=== PATIENT | female | born 1960 | race Caucasian/White ===

== ENCOUNTER → 2016-11-04 | Outpatient (CLI) | payer BC ==
[~2016-11-04] MED LIST: ACET-1256 PO; ALEN35TA2 PO; AMT100 PO; APDI SQ; ASCA500 PO; AZEL0.056 NAE; BIOTCAP2 PO; CALC750T PO; CARV6.252 PO; CEFD300C3 PO; CETI10TA84 PO; COLE1TAB5 PO; CRG625 PO; CYCL1CAP22 PO; DFC200 PO; EFF/375 PO; EPGI40M INJ; FAMO20TA11 PO; FIDA1TAB PO; FOLI800T PO; FRCT/ PO; GEMF600T3 PO; INSDGI SC; INSU3INJ3 SC; INSU3INJ3 SQ; KRIL1000 PO; KRIL1CAP7 PO; LVMIPEN SC; MAGN250T3 PO; MOME50SP5 NAE; MONT1TAB5 PO; MULT-506 PO; NRL25 PO; NRV/5 PO; ONDA4TAB9 PO; OXYC-609 PO; OXYC1TAB3 PO; POLY150C4 PO; PRAM0.129 PO; PRD/25 PO; PRM625 PO; PRT/40 PO; RHNAQIN NAE; SERT50TA PO; SIRO1TAB PO; TCMD2 PO; TRAM-10 PO; VANC1CAP3 PO; VANC5CAP PO; VENL75CA73 PO; WARF4TAB44 PO; ZINC1TAB PO; [UNRECOGNIZED DRUG - CODE] PO; [UNRECOGNIZED DRUG - CODE] PO
--- NOTE | 2016-11-04 15:27 | DIAGNOSTIC IMAGING REPORT ---
ULTRASOUND LEFT UPPER EXTREMITY VENOUS CLINICAL HISTORY: Left arm pain. COMPARISON STUDY: No priors. TECHNIQUE: Real-time, grayscale, and color Doppler sonography of the deep veins of the left upper extremity is performed. Compression and augmentation were utilized. FINDINGS: There is no sonographic evidence of deep venous thrombosis identified in the left upper extremity. The left internal jugular, axillary, and brachial veins are patent and normally compressible. Normal venous waveforms and augmentation are seen within the left subclavian vein. The cephalic and basilic veins are clear. The visualized radial and ulnar veins are patent. IMPRESSION: There is no sonographic evidence of deep venous thrombosis identified in the left upper extremity. Electronically signed by: Bradley Rivas M.D. 11/04/2016 3:26 PM Dictated Date/Time: 11/04/2016 3:25 PM
--- NOTE | 2016-11-04 15:35 | DIAGNOSTIC IMAGING REPORT ---
Ultrasound left arm EXTREMITY NONVASCULAR LIMITED CLINICAL HISTORY: LT ARM PAIN BICEP TENDON RUPTURE pain TECHNIQUE: Ultrasound COMPARISON STUDY: None FINDINGS: Normal study. Within limitations, major tendinous structures are intact. No abnormal and asymmetric musculature IMPRESSION: Negative study Electronically signed by: Jonas Deluca M.D. 11/04/2016 3:33 PM Dictated Date/Time: 11/04/2016 3:32 PM
== END | disposition home or self-care (01) ==
LOC: C.ULTR 14:18
PROVIDERS: ATTEND Student in an Organized Health Care Education/Training Program
DX: M79.602 Pain in left arm (principal)

== ENCOUNTER 2016-11-19 14:56 | Emergency (ER) | payer BC ==
[~2016-11-19] VITALS: Ht 172.7 cm; Wt 67.4 kg
[~2016-11-19 14:56] MED LIST changes: -AMT100 PO; -CEFD300C3 PO; -CRG625 PO; -CYCL1CAP22 PO; -DFC200 PO; -EFF/375 PO; -EPGI40M INJ; -FIDA1TAB PO; -FRCT/ PO; -GEMF600T3 PO; -INSU3INJ3 SC; -INSU3INJ3 SQ; -KRIL1CAP7 PO; -LVMIPEN SC; -NRL25 PO; -NRV/5 PO; -ONDA4TAB9 PO; -OXYC-609 PO; -PRT/40 PO; -RHNAQIN NAE; -TCMD2 PO; -TRAM-10 PO; -VANC5CAP PO; -VENL75CA73 PO; -WARF4TAB44 PO
[2016-11-19 15:03] VITALS: TEMP 37.5; Ht 172.7 cm; Wt 67.4 kg
[2016-11-19] MEDS ORDERED: SODIUM CHLORIDE 0.9% 1000ML 1,000 ML IV STA (15:30)
[2016-11-19 15:53] LABS: BASO % 0.3 %; BASO ABS # 0.02 K/uL (0-0.2); COMPLETE YES; HEMATOCRIT 31.3 % (37-47); IG% 0.3 %; LYMPH % 11.9 %; LYMPH ABS # 0.84 K/uL (1.2-3.4); MEAN CELL VOLUME 84.8 fL (80-100); MEAN CORPUSCULAR HEMOGLOBIN 27.9 pg (25-34); MEAN CORPUSCULAR HGB CONC 32.9 g/dl (32-36); MEAN PLATELET VOLUME 10.4 fL (7.4-10.4); MONO % 8.9 %; NEUT % 76.6 %; PLATELET COUNT 224 K/uL (130-400); RED BLOOD COUNT 3.69 M/uL (4.2-5.4); WHITE BLOOD COUNT 7.05 K/uL (4.8-10.8)
[2016-11-19] MEDS ORDERED: VENL75CA73 PO (16:04)
[2016-11-19] MEDS ORDERED: INSU3INJ3 SQ (16:04)
[2016-11-19] MEDS ORDERED: RHNAQIN NAE (16:04)
[2016-11-19] MEDS ORDERED: TRAM-10 PO (16:04)
[2016-11-19] MEDS ORDERED: AMT100 PO (16:25)
[2016-11-19 16:35] LABS: POTASSIUM 4.9 mmol/L (3.5-5.1)
[2016-11-19 16:37] LABS: URINE APPEARANCE CLEAR (CLEAR); URINE BILIRUBIN NEG (NEG); URINE COLOR YELLOW; URINE EPITHELIAL CELL AUTO >30 /lpf (0-5); URINE NITRITE NEG (NEG); URINE SPECIFIC GRAVITY 1.007 (1.000-1.030); UROBILINOGEN NEG (NEG); ZZUR CULT IF INDIC CLEAN CATCH NO
[2016-11-19 16:37] LABS: MAGNESIUM 1.8 mg/dl (1.8-2.4)
[2016-11-19 16:40] LABS: BUN/CREATININE RATIO 25.6 (10-20); CALCIUM 9.4 mg/dl (8.5-10.1); CREATININE 3.4 mg/dl (0.60-1.20); THYROID STIMULATING HORMONE 1.17 uIu/ml (0.300-4.500)
[2016-11-19 16:45] LABS: MANUAL MICROSCOPIC REQUIRED? NO; REVIEW REQ? NO
--- NOTE | 2016-11-19 16:49 | DIAGNOSTIC IMAGING REPORT ---
ULTRASOUND VENOUS DOPPLER ULTRASOUND LEFT UPPER EXTREMITY CLINICAL HISTORY: Left arm swelling COMPARISON STUDY: No previous studies for comparison. FINDINGS: No intraluminal thrombus was visualized. The internal jugular, subclavian, axillary, cephalic, brachial, basilic, radial, and ulnar veins were patent. IMPRESSION: No evidence of left upper extremity DVT Electronically signed by: John Narayanan M.D. 11/19/2016 4:47 PM Dictated Date/Time: 11/19/2016 4:47 PM
--- NOTE | 2016-11-19 17:20 | EMERGENCY ROOM VISIT NOTE ---
History Report prepared by Mason: Trevor Castaneda Under the Supervision of: Dr. Mike Schrader D.O. First contact with patient: 15:18 Chief Complaint: OTHER COMPLAINT Stated Complaint: DECREASED KIDNEY FUNCTION History of Present Illness The patient is a 56 year old female who presents to the Emergency Room with complaints of increased weakness and tiredness starting a few weeks ago. She started having left arm swelling and pain a few weeks ago. She was diagnosed with shingles and was placed on an antiviral and Tramadol without relief. She had blood work a few days ago which showed creatinine of 3.3. Her normal kidney function is at 18%. She has a history of kidney transplant. She reports normal appetite and a normal fluid intake. The patient denies any chest pain, shortness of breath, abdominal pain, urinary symptoms, or any other complaints. Source of History: patient Onset: a few days ago Position: other (global) Quality: other (weakness and tiredness) Timing: other (increased) Associated Symptoms: No SOB, No abdominal pain, No chest pain, No urinary symptoms Review of Systems See HPI for pertinent positives & negatives. A total of 10 systems reviewed and were otherwise negative. Past Medical & Surgical Medical Problems: (1) Abdominal pain (2) Abdominal pain (3) Asthma, Unspecified (4) Chronic Kidney Disease, Stage Iv (Severe) (5) Diab Raeann Wo Compl, Type Ii Or Unspec Type, Uncontrolled (6) HTN (hypertension) (7) Hyperlipidemia Nec/Nos (8) Polycystic Kidney, Unspecified Type (9) SBO (small bowel obstruction) (10) SIRS (systemic inflammatory response syndrome) Surgical Problems: (1) Kidney Transplant Status Family History Kidney disease Kidney stones Social History Smoking Status: Never Smoker Alcohol Use: none Drug Use: none Marital Status: Housing Status: lives with family Occupation Status: employed Current/Historical Medications Scheduled Amitriptyline HCl (Amitriptyline HCl), 100 MG PO HS Azelastine HCl (Azelastine HCl), 1 SPRAYS АНДРЕЙ DAILY Biotin (Biotin 5000), 5,000 MCG PO AMPM Budesonide (Rhinocort Aqua), 1 SPRAY АНДРЕЙ DAILY Calcium W/ Vitamins D & K (Calcium + D + K), 1 TABLET PO MWF Carvedilol (Coreg), 6.25 MG PO QAM Carvedilol (Coreg), 15.625 MG PO QPM Cetirizine (Zyrtec), 10 MG PO DAILY Cyclosporine (Sandimmune), 75 MG PO BID Estrogens, Conjugated (Premarin), 0.625 MG PO UD Insulin Detemir (Levemir Flextouch), 26 UNITS SQ DAILY Insulin Glulisine (Apidra Solostar), 3 UNITS SQ UD Magnesium (Magnesium 250 mg), 250 MG PO TID Montelukast Sodium (Montelukast Sodium), 10 MG PO HS Multivitamin (Multivitamin), 1 TAB PO QAM Polysaccharide Iron Complex (Ferrex 150), 150 MG PO QPM Pramipexole (Mirapex), 0.125 MG PO HS Prednisone (Prednisone), 2.5 MG PO QAM Sirolimus (Rapamune), 1 MG PO QAM Venlafaxine Hcl (Venlafaxine Extended Rel), 75 MG PO DAILY Scheduled PRN Tramadol (Ultram), 50 MG PO Q12 PRN for Pain Allergies Coded Allergies: Iodinated Diagnostic Agents (Verified Allergy, Severe, Hx Kidney Transplant, 11/19/16) Statins (Verified Allergy, Severe, "PANCREATITIS", 11/19/16) Hydrochlorothiazide (Verified Allergy, Mild, 11/19/16) Sulfa Antibiotics (Verified Allergy, Mild, ., 11/19/16) Sumatriptan (Verified Allergy, Mild, 11/19/16) Triamterene (Verified Allergy, Mild, 11/19/16) Atorvastatin (Verified Allergy, Unknown, ?, 11/19/16) Doxycycline (Verified Allergy, Unknown, UNKNOWN, 11/19/16) Levofloxacin (Verified Allergy, Unknown, joint pain, 11/19/16) Adhesives (Verified Adverse Reaction, Unknown, SKIN TEAR, 11/19/16) Ciprofloxacin (Verified Adverse Reaction, Unknown, FATIGUE, 11/19/16) Morphine (Verified Adverse Reaction, Unknown, INEFFECTIVE, 11/19/16) Physical Exam Vital Signs Date Time Temp Pulse Resp B/P Pulse Ox O2 Delivery O2 Flow Rate FiO2 11/19/16 17:10 61 11/19/16 16:53 63 18 181/74 95 11/19/16 15:03 37.5 70 18 167/95 92 Room Air Physical Exam CONSTITUTIONAL/VITAL SIGNS: Reviewed / noted above. GENERAL: Non-toxic in appearance. INTEGUMENTARY: Warm, dry, and [place]. HEAD: Normocephalic. EYES: without scleral icterus or trauma. ENT/OROPHARYNX: clear and moist. LYMPHADENOPATHY/NECK: Is supple without lymphadenopathy or meningismus. RESPIRATORY: Lungs clear and equal. CARDIOVASCULAR: Regular rate and rhythm. GI/ABDOMEN: Soft. No organomegaly or pulsatile mass. No rebound or guarding. Normal bowel sounds. No tenderness over left lower abdominal region/ transplanted kidney area. EXTREMITIES: Warm and well perfused. Mild left triceps area swelling/increased girth. BACK: No CVA tenderness. NEUROLOGICAL: Intact without focal deficits. PSYCHIATRIC: normal affect. MUSCULOSKELETAL: Normally developed with good muscle tone. Medical Decision & Procedures ER Provider Diagnostic Interpretation: US results as stated below per my review and radiologist interpretation: ULTRASOUND VENOUS DOPPLER ULTRASOUND LEFT UPPER EXTREMITY CLINICAL HISTORY: Left arm swelling COMPARISON STUDY: No previous studies for comparison. FINDINGS: No intraluminal thrombus was visualized. The internal jugular, subclavian, axillary, cephalic, brachial, basilic, radial, and ulnar veins were patent. IMPRESSION: No evidence of left upper extremity DVT Electronically signed by: John Narayanan M.D. 11/19/2016 4:47 PM Dictated Date/Time: 11/19/2016 4:47 PM Laboratory Results 11/19/16 15:45 Red Blood Count 3.69, Mean Corpuscular Volume 84.8, Mean Corpuscular Hemoglobin 27.9, Mean Corpuscular Hemoglobin Concent 32.9, Mean Platelet Volume 10.4, Neutrophils (%) (Auto) 76.6, Lymphocytes (%) (Auto) 11.9, Monocytes (%) (Auto) 8.9, Eosinophils (%) (Auto) 2.0, Basophils (%) (Auto) 0.3, Neutrophils # (Auto) 5.40, Lymphocytes # (Auto) 0.84, Monocytes # (Auto) 0.63, Eosinophils # (Auto) 0.14, Basophils # (Auto) 0.02 11/19/16 15:45 Test 11/19/16 15:45 11/19/16 16:15 White Blood Count 7.05 K/uL (4.8-10.8) Red Blood Count 3.69 M/uL (4.2-5.4) Hemoglobin 10.3 g/dL (12.0-16.0) Hematocrit 31.3 % (37-47) Mean Corpuscular Volume 84.8 fL (80-100) Mean Corpuscular Hemoglobin 27.9 pg (25-34) Mean Corpuscular Hemoglobin Concent 32.9 g/dl (32-36) Platelet Count 224 K/uL (130-400) Mean Platelet Volume 10.4 fL (7.4-10.4) Neutrophils (%) (Auto) 76.6 % Lymphocytes (%) (Auto) 11.9 % Monocytes (%) (Auto) 8.9 % Eosinophils (%) (Auto) 2.0 % Basophils (%) (Auto) 0.3 % Neutrophils # (Auto) 5.40 K/uL (1.4-6.5) Lymphocytes # (Auto) 0.84 K/uL (1.2-3.4) Monocytes # (Auto) 0.63 K/uL (0.11-0.59) Eosinophils # (Auto) 0.14 K/uL (0-0.5) Basophils # (Auto) 0.02 K/uL (0-0.2) RDW Standard Deviation 47.7 fL (36.4-46.3) RDW Coefficient of Variation 15.5 % (11.5-14.5) Immature Granulocyte % (Auto) 0.3 % Immature Granulocyte # (Auto) 0.02 K/uL (0.00-0.02) Anion Gap 13.0 mmol/L (3-11) Est Creatinine Clear Calc Drug Dose 18.4 ml/min Estimated GFR () 16.5 Estimated GFR (Non- 14.2 BUN/Creatinine Ratio 25.6 (10-20) Calcium Level 9.4 mg/dl (8.5-10.1) Magnesium Level 1.8 mg/dl (1.8-2.4) Thyroid Stimulating Hormone (TSH) 1.170 uIu/ml (0.300-4.500) Urine Color YELLOW Urine Appearance CLEAR (CLEAR) Urine pH 5.0 (4.5-7.5) Urine Specific [place] 1.007 (1.000-1.030) Urine Protein 1+ (NEG) Urine Glucose (UA) NEG (NEG) Urine Ketones NEG (NEG) Urine Occult Blood TRACE (NEG) Urine Nitrite NEG (NEG) Urine Bilirubin NEG (NEG) Urine Urobilinogen NEG (NEG) Urine Leukocyte Esterase NEG (NEG) Urine WBC (Auto) 1-5 /hpf (0-5) Urine RBC (Auto) 0-4 /hpf (0-4) Urine Hyaline Casts (Auto) 0 /lpf (0-5) Urine Epithelial Cells (Auto) >30 /lpf (0-5) Urine Bacteria (Auto) NEG (NEG) Laboratory results as stated above per my review. Medications Administered Medications (Trade) Dose Ordered Sig/Dominique Route Start Time Stop Time Status Last Admin Dose Admin Sodium Chloride (Nss 1000ml) 1,000 ml @ 999 mls/hr Q1H1M STAT IV 11/19/16 15:30 11/19/16 16:30 DC 11/19/16 15:57 999 MLS/HR ED Course 1518: Previous medical records were reviewed. The patient was evaluated in room B10. A complete history and physical examination was performed. 1530: Sodium Chloride 1000 ml @ 999 mls/hr IV 1718: I discussed the patient's case with Dr. Painting, buttermaker with [facility]. 1722: On reevaluation, the patient is resting comfortably. I discussed the results and findings with the patient. She verbalized agreement of the treatment plan. She was discharged home. Medical Decision Differential includes acute coronary syndrome, myocardial infarction, CVA, TIA, anemia, infection, pneumonia, UTI, pyelonephritis, poor nutrition, dehydration, electrolyte disturbance,hypoglycemia. Is a 56-year-old female who presents to the ED with chief complaint of feeling exhausted and wanting to sleep all the time. The patient states that she has been seen by her PCP. She has been having some left arm swelling as well. Her symptoms overall have been going on for about 4 weeks. She is already taking a course of Valtrex. This did not help her arm pain. She is also recently been prescribed Effexor and tramadol yesterday. She was felt to have shingles of the left arm. The patient had some recent blood work that showed her BUN of 79 and a creatinine of 3.3. This was 4 days ago. The patient presents with continued symptoms. Primary symptoms again are exhaustion and tiredness and wanting to sleep. She does have history of a renal transplant. She denies having any abdominal pains or fevers or recent illness. CBC is unremarkable. Left upper extremity ultrasound did not show DVT. Creatinine is 3.4. Based on blood work from 09/14/16, her creatinine at that time was 3.3. BUN is 87. TSH is normal. Urine did not show infection. The patient was treated with normal saline 1 L IV. She does state that she produces urine. She is not on dialysis. I spoke with Dr. Painting about the patient, per the request of the patient. He advised that the patient drink plenty of fluids and follow-up with Dr. Kirkland later in the week. The patient is felt to be stable for discharge. She was treated with normal saline 1 L IV here. Consults Time Called: 1715 Consulting Physician: Dr. Painting, buttermaker with [facility] Returned Call: [phone] I discussed the patient's case with Dr. Painting, buttermaker with [facility]. Impression Primary Impression: Dehydration Additional Impression: Malaise and fatigue Scribe Attestation The scribe's documentation has been prepared under my direction and personally reviewed by me in its entirety. I confirm that the note above accurately reflects all work, treatment, procedures, and medical decision making performed by me. Departure Information Dispostion Home / Self-Care Referrals Shruthi Mcbride D.O. (PCP) Patient Instructions My [facility] Additional Instructions Drink plenty of fluids. Follow-up with your doctors and buttermaker this week for recheck. Return for worsening or new concerns. Problem Qualifiers
[2016-11-19 18:04] VITALS: BP 178/88; PULSE 71; O2SAT 95
[2017-02-18] MEDS ORDERED: PRT/40 PO (13:12)
[2017-02-23] MEDS ORDERED: LVMIPEN SC (09:38)
[2017-02-23] MEDS ORDERED: DFC200 PO (09:38)
[2017-02-23] MEDS ORDERED: TCMD2 PO (09:39)
[2017-06-26] MEDS ORDERED: CEFD300C3 PO (11:03)
[2017-06-26] MEDS ORDERED: DFC200 PO (11:03)
[2017-06-26] MEDS ORDERED: FRCT/ PO (11:08)
== END 2016-11-19 18:17 | disposition home or self-care (01) ==
LOC: C.EDB 14:57
DX: E86.0 Dehydration (principal); R53.81 Other malaise; Z94.0 Kidney transplant status; J45.909 Unspecified asthma, uncomplicated; N18.4 Chronic kidney disease, stage 4 (severe); E11.22 Type 2 diabetes mellitus with diabetic chronic kidney disease; E78.5 Hyperlipidemia, unspecified; Z79.899 Other long term (current) drug therapy; B02.9 Zoster without complications; I12.9 Hypertensive chronic kidney disease with stage 1 through stage 4 chronic kidney disease, or unspecified chronic kidney disease

== ENCOUNTER → 2016-11-23 | Outpatient (CLI) | payer BC ==
[~2016-11-23] MED LIST changes: -ACET-1256 PO; -ALEN35TA2 PO; +AMT100 PO; -ASCA500 PO; +CEFD300C3 PO; -COLE1TAB5 PO; +CRG625 PO; +CYCL1CAP22 PO; +DFC200 PO; +EFF/375 PO; +EPGI40M INJ; -FAMO20TA11 PO; +FIDA1TAB PO; -FOLI800T PO; +FRCT/ PO; +GEMF600T3 PO; -INSDGI SC; +INSU3INJ3 SC; +INSU3INJ3 SQ; -KRIL1000 PO; +KRIL1CAP7 PO; +LVMIPEN SC; -MOME50SP5 NAE; +NRL25 PO; +NRV/5 PO; +ONDA4TAB9 PO; +OXYC-609 PO; -OXYC1TAB3 PO; +PRT/40 PO; +RHNAQIN NAE; -SERT50TA PO; +TCMD2 PO; +TRAM-10 PO; -VANC1CAP3 PO; +VANC5CAP PO; +VENL75CA73 PO; +WARF4TAB44 PO; -ZINC1TAB PO; -[UNRECOGNIZED DRUG - CODE] PO
--- NOTE | 2016-11-23 17:07 | DIAGNOSTIC IMAGING REPORT ---
LEFT ELBOW MIN 3 VIEWS ROUTINE CLINICAL HISTORY: Worsening left elbow pain. Chronic kidney disease. COMPARISON: None FINDINGS: Alignment of the left elbow is anatomic. No acute fracture or joint effusion is present. No bony erosion lesions are evident. No suspicious osseous lesions are present. Minimal osteophytosis is present. There is no significant joint space narrowing. IMPRESSION: 1. No acute fracture or joint effusion of the left elbow. 2. Minimal arthritis of the left elbow. Electronically signed by: Benito Hunt M.D. 11/23/2016 5:06 PM Dictated Date/Time: 11/23/2016 4:59 PM
[2016-11-23 18:29] LABS: BLOOD UREA NITROGEN 66 mg/dl (7-18); BUN/CREATININE RATIO 19.5 (10-20); CALCIUM 8.7 mg/dl (8.5-10.1); CARBON DIOXIDE 24 mmol/L (21-32); CHLORIDE 103 mmol/L (98-107); GLUCOSE 217 mg/dl (70-99); POTASSIUM 4.3 mmol/L (3.5-5.1); SODIUM 137 mmol/L (136-145)
[2016-11-23 18:35] LABS: FERRITIN 180.4 ng/ml (8.0-388.0); PHOSPHORUS 2.8 mg/dl (2.5-4.9); TOTAL IRON BINDING CAPACITY 214 mcg/dl (250-450)
== END | disposition home or self-care (01) ==
LOC: C.LAB1850 16:36
PROVIDERS: ATTEND Nurse Practitioner Family
DX: M25.522 Pain in left elbow (principal); N18.9 Chronic kidney disease, unspecified; Z94.0 Kidney transplant status; N28.9 Disorder of kidney and ureter, unspecified; Q61.3 Polycystic kidney, unspecified

== ENCOUNTER → 2016-12-23 | Outpatient (CLI) | payer BC ==
[~2016-12-23] MED LIST changes: +PANT40TA2 PO; -PRT/40 PO
[2016-12-23 13:09] LABS: BASO % 0.2 %; BASO ABS # 0.02 K/uL (0-0.2); COMPLETE YES; HEMATOCRIT 33.3 % (37-47); IG% 0.5 %; LYMPH % 13.1 %; MEAN CELL VOLUME 84.7 fL (80-100); MEAN CORPUSCULAR HEMOGLOBIN 27.7 pg (25-34); MEAN CORPUSCULAR HGB CONC 32.7 g/dl (32-36); MEAN PLATELET VOLUME 10.5 fL (7.4-10.4); NEUT % 72.2 %; PLATELET COUNT 259 K/uL (130-400); RED BLOOD COUNT 3.93 M/uL (4.2-5.4); WHITE BLOOD COUNT 9.18 K/uL (4.8-10.8)
[2016-12-23 13:44] LABS: BLOOD UREA NITROGEN 102 mg/dl (7-18); BUN/CREATININE RATIO 27.6 (10-20); CARBON DIOXIDE 29 mmol/L (21-32); CHLORIDE 99 mmol/L (98-107); GLUCOSE 152 mg/dl (70-99); PHOSPHORUS 3.1 mg/dl (2.5-4.9); SODIUM 135 mmol/L (136-145)
== END | disposition home or self-care (01) ==
LOC: C.LAB1850 11:52
PROVIDERS: ATTEND Internal Medicine
DX: E11.9 Type 2 diabetes mellitus without complications (principal)

== ENCOUNTER → 2016-12-30 | Outpatient (CLI) | payer BC ==
[2016-12-30 16:54] LABS: HEMATOCRIT 33.3 % (37-47)
[2016-12-31 06:12] LABS: ESTIMATED AVERAGE GLUCOSE 140 mg/dl; HA1C FLAG Normal (Normal)
== END | disposition home or self-care (01) ==
LOC: C.LAB1850 16:26
PROVIDERS: ATTEND Physician Assistant
DX: E11.9 Type 2 diabetes mellitus without complications (principal); Z94.0 Kidney transplant status; N28.9 Disorder of kidney and ureter, unspecified; Q61.3 Polycystic kidney, unspecified; E78.5 Hyperlipidemia, unspecified

== ENCOUNTER → 2017-01-11 | Outpatient (CLI) | payer BC ==
--- NOTE | 2017-01-11 16:39 | MAMMOGRAPHY REPORT ---
BILATERAL DIGITAL SCREENING MAMMOGRAM WITH CAD: 01/11/2017 CLINICAL HISTORY: Patient presents for routine screening. S/P bilateral augmentation. TECHNIQUE: Current study was also evaluated with a Computer Aided Detection (CAD) system. Bilatera l CC and MLO views including implant displaced views were obtained. Note that the implant displaced views are limited as the implants could not be easily displaced. COMPARISON: Comparison is made to exams dated: 12/14/2015 mammogram, 12/12/2014 mammogram, 03/14/2013 mammogram, 01/21/2011 mammogram - [facility], and 07/03/2009. BREAST COMPOSITION: There are scattered areas of fibroglandular density in both breasts. FINDINGS: No suspicious masses, calcifications, or areas of architectural distortion are noted in e ither breast. There has been no significant interval change compared to prior exams. Bilateral pre- pectoral silicone implants are stable in appearance. IMPRESSION: ACR BI-RADS CATEGORY 2: BENIGN There is no mammographic evidence of malignancy. A 1 year screening mammogram is recommended. The p atient will receive written notification of the results. Approximately 10% of breast cancers are not detected with mammography. A negative mammographic repor t should not delay biopsy if a clinically suggestive mass is present. Serenity Del Toro M.D. ah/:01/11/2017 16:04:24 [employer] Middleware Developer: Drake GAMING(Earl)(M), [facility] letter sent: Normal 1/2 BI-RADS Code: ACR BI-RADS Category 2: Benign
== END | disposition home or self-care (01) ==
LOC: C.MAMM 14:59
PROVIDERS: ATTEND Family Medicine
DX: Z12.31 Encounter for screening mammogram for malignant neoplasm of breast (principal); Z98.82 Breast implant status

== ENCOUNTER → 2017-01-13 | Outpatient (CLI) | payer BC ==
[2017-01-13 12:10] LABS: BASO % 0.4 %; BASO ABS # 0.03 K/uL (0-0.2); COMPLETE YES; EOS % 2.8 %; HEMATOCRIT 36.7 % (37-47); IG% 0.4 %; LYMPH ABS # 1.41 K/uL (1.2-3.4); MEAN CELL VOLUME 88.4 fL (80-100); MEAN CORPUSCULAR HGB CONC 31.6 g/dl (32-36); MONO % 15.2 %; NEUT % 62.2 %; PLATELET COUNT 276 K/uL (130-400); RED BLOOD COUNT 4.15 M/uL (4.2-5.4); WHITE BLOOD COUNT 7.42 K/uL (4.8-10.8)
[2017-01-13 12:29] LABS: ALT/SGPT 16 U/L (12-78); AMYLASE 100 U/L (25-115); BLOOD UREA NITROGEN 79 mg/dl (7-18); BUN/CREATININE RATIO 23.3 (10-20); CARBON DIOXIDE 27 mmol/L (21-32); CHLORIDE 100 mmol/L (98-107); GLUCOSE 65 mg/dl (70-99); MAGNESIUM 1.9 mg/dl (1.8-2.4); POTASSIUM 4.2 mmol/L (3.5-5.1); SODIUM 137 mmol/L (136-145)
[2017-01-13 12:33] LABS: ALB/GLOB RATIO 0.8 (0.9-2); ALKALINE PHOSPHATASE 89 U/L (45-117); AST/SGOT 12 U/L (15-37); PHOSPHORUS 3.4 mg/dl (2.5-4.9)
[2017-01-13 12:39] LABS: CALCIUM 9.9 mg/dl (8.5-10.1)
[2017-01-13 12:42] LABS: URINE PROTIEN/CREAT RATIO 0.8 (0-0.2); URINE TOTAL PROTEIN 72.4 mg/dl (0-11.9)
[2017-01-13 12:50] LABS: URINE APPEARANCE CLEAR (CLEAR); URINE BILIRUBIN NEG (NEG); URINE COLOR YELLOW; URINE EPITHELIAL CELL AUTO >30 /lpf (0-5); URINE NITRITE NEG (NEG); URINE PH 6.5 (4.5-7.5); URINE SPECIFIC GRAVITY 1.014 (1.000-1.030); UROBILINOGEN NEG (NEG); ZZUR CULT IF INDIC CLEAN CATCH NO
[2017-01-13 12:59] LABS: MANUAL MICROSCOPIC REQUIRED? NO; REVIEW REQ? NO
== END | disposition home or self-care (01) ==
LOC: C.LABBFT 10:19
PROVIDERS: ATTEND Transplant Surgery
DX: Z48.298 Encounter for aftercare following other organ transplant (principal); Z94.0 Kidney transplant status; Z79.899 Other long term (current) drug therapy; Z09 Encounter for follow-up examination after completed treatment for conditions other than malignant neoplasm; N28.9 Disorder of kidney and ureter, unspecified; Q61.3 Polycystic kidney, unspecified

== ENCOUNTER → 2017-01-30 | Outpatient (CLI) | payer BC ==
[2017-01-30 12:27] LABS: HEMATOCRIT 33.6 % (37-47); MEAN CELL VOLUME 91.1 fL (80-100); MEAN CORPUSCULAR HEMOGLOBIN 27.9 pg (25-34); MEAN CORPUSCULAR HGB CONC 30.7 g/dl (32-36); MEAN PLATELET VOLUME 10.5 fL (7.4-10.4); PLATELET COUNT 365 K/uL (130-400); RED BLOOD COUNT 3.69 M/uL (4.2-5.4); WHITE BLOOD COUNT 9.75 K/uL (4.8-10.8)
[2017-01-30 12:31] LABS: INR 1.6 (0.9-1.1); PROTHROMBIN TIME (PATIENT) 17.6 SECONDS (9.0-12.0)
[2017-01-30 14:03] LABS: BLOOD UREA NITROGEN 63 mg/dl (7-18); BUN/CREATININE RATIO 16.5 (10-20); CARBON DIOXIDE 23 mmol/L (21-32); CHLORIDE 100 mmol/L (98-107); GLUCOSE 100 mg/dl (70-99); MAGNESIUM 1.8 mg/dl (1.8-2.4); PHOSPHORUS 3.6 mg/dl (2.5-4.9); POTASSIUM 4.4 mmol/L (3.5-5.1); SODIUM 135 mmol/L (136-145)
[2017-02-02 09:35] LABS: FK506 TACROLIMUS HIGHLY SENS NEGATIVE <1 MCG/L (5-20)
--- NOTE | 2017-02-10 08:20 | CODING QUERY NO DIAGNOSIS ---
TREATMENT RENDERED WITHOUT A DIAGNOSIS To promote full compliance with coding requirements relating to patient care, physician participation is requested in all cases of biostatistics manager uncertainty. Please assist us with providing a diagnosis/symptom for the test(s) below: A diagnosis/symptom was not documented on your Order. A valid diagnosis/symptom is required to bill all insurances. Please remember that we are unable to code a diagnosis of rule out, probable, possible, questionable, or suspected. Tests that require a diagnosis: * CBC DIAGNOSIS: * BMP DIAGNOSIS: * MG LEVEL DIAGNOSIS: * PHOSPHATE LEVEL DIAGNOSIS: * TACROLIMUS LEVEL DIAGNOSIS: * CYCLOSPORINE LEVEL DIAGNOSIS: * PT/INR DIAGNOSIS: *DOS: 01/30/17 Provider Signature: Date: Thank you Dannielle Cotton [facility] Information Management Once completed, please kindly fax back to [phone] For questions please call [phone]
== END | disposition home or self-care (01) ==
LOC: C.LABBFT 10:05
PROVIDERS: ATTEND Surgery
DX: N18.9 Chronic kidney disease, unspecified (principal); T86.19 Other complication of kidney transplant; Y83.0 Surgical operation with transplant of whole organ as the cause of abnormal reaction of the patient, or of later complication, without mention of misadventure at the time of the procedure

== ENCOUNTER → 2017-01-31 | Outpatient (CLI) | payer BC ==
--- NOTE | 2017-02-06 15:01 | CODING QUERY NO DIAGNOSIS ---
Valid Physician Order Needed A valid physician order must be submitted in order to properly bill for the service(s) provided, including date of service(s), valid diagnosis, and physician signature. If these tests are done on a recurring basis the original physican order must be submitted in order to code and bill for the service(s) provided. Please fax us the original, signed physician order so that we may expedite billing to [phone] DOS 02/01/2017 * (CDIFF TOXIN B GENE) Thank you Su [facility] Information Management
== END | disposition home or self-care (01) ==
LOC: C.LABSPEC 12:43
PROVIDERS: ATTEND Family Medicine
DX: K43.6 Other and unspecified ventral hernia with obstruction, without gangrene (principal)

== ENCOUNTER 2017-02-18 11:31 | Inpatient (IN) | payer BC ==
[~2017-02-18] VITALS: Ht 172.7 cm; Wt 71.5 kg
[~2017-02-18 11:31] MED LIST changes: -CEFD300C3 PO; -CRG625 PO; -CYCL1CAP22 PO; -DFC200 PO; -EFF/375 PO; -EPGI40M INJ; -FIDA1TAB PO; -FRCT/ PO; -GEMF600T3 PO; -INSU3INJ3 SC; -KRIL1CAP7 PO; -LVMIPEN SC; -NRL25 PO; -NRV/5 PO; -ONDA4TAB9 PO; -OXYC-609 PO; -PANT40TA2 PO; -TCMD2 PO; -VANC5CAP PO; -WARF4TAB44 PO
[2017-02-18] MEDS ORDERED: HYDROmorphone INJ 0.5 MG/0.5 ML SYR IV STA (12:22)
[2017-02-18] MEDS ORDERED: SODIUM CHLORIDE 0.9% 1000ML 1,000 ML IV STA ×2 (12:22→13:47)
[2017-02-18 12:31] LABS: BASO % 0.2 %; BASO ABS # 0.01 K/uL (0-0.2); COMPLETE YES; EOS % 11.9 %; HEMATOCRIT 32.9 % (37-47); IG% 0.2 %; LYMPH % 18.3 %; LYMPH ABS # 0.83 K/uL (1.2-3.4); MEAN CELL VOLUME 90.1 fL (80-100); MEAN CORPUSCULAR HEMOGLOBIN 28.5 pg (25-34); MEAN CORPUSCULAR HGB CONC 31.6 g/dl (32-36); MEAN PLATELET VOLUME 9.8 fL (7.4-10.4); MONO % 12.3 %; NEUT % 57.1 %; PLATELET COUNT 225 K/uL (130-400); RED BLOOD COUNT 3.65 M/uL (4.2-5.4); WHITE BLOOD COUNT 4.54 K/uL (4.8-10.8)
[2017-02-18 12:49] LABS: ALB/GLOB RATIO 0.8 (0.9-2); BUN/CREATININE RATIO 12.3 (10-20); CALCIUM 9.1 mg/dl (8.5-10.1); CREATININE 6.5 mg/dl (0.60-1.20); POTASSIUM 3.8 mmol/L (3.5-5.1)
[2017-02-18] MEDS ORDERED: GEMF600T3 PO (13:12)
[2017-02-18] MEDS ORDERED: OXYC-609 PO (13:12)
[2017-02-18] MEDS ORDERED: EPGI40M INJ (13:12)
[2017-02-18] MEDS ORDERED: EFF/375 PO (13:12)
[2017-02-18] MEDS ORDERED: PANT40TA2 PO (13:12)
[2017-02-18] MEDS ORDERED: ONDA4TAB9 PO (13:12)
[2017-02-18] MEDS ORDERED: NRV/5 PO (13:12)
[2017-02-18] MEDS ORDERED: CRG625 PO (13:12)
[2017-02-18] MEDS ORDERED: VANC5CAP PO (13:12)
[2017-02-18] MEDS ORDERED: WARF4TAB44 PO (13:12)
[2017-02-18] MEDS ORDERED: KRIL1CAP7 PO (13:13)
--- NOTE | 2017-02-18 13:51 | DIAGNOSTIC IMAGING REPORT ---
PA CHEST WITH ABDOMINAL SERIES CLINICAL HISTORY: Generalized abdominal pain. Diarrhea. FINDINGS: A PA chest radiograph is compared to study dated 02/18/2017. The cardiac silhouette appears mildly enlarged. The pulmonary vasculature is noncongested. Chronic residual thickening is similar to previous. There is no airspace consolidation typical for pneumonia. Small pleural effusions are noted. No pneumothorax is seen. The skeletal structures are osteopenic. The bony thorax is grossly intact. There are densely calcified bilateral breast implants. Supine and erect abdominal radiographs are compared to study dated 05/30/2016 and correlated with abdominal CT dated 05/26/2016. There is a nonobstructed abdominal bowel gas pattern. No evidence of intraperitoneal free air is seen. Numerous surgical clips are identified and there are several foci of suture material. Numerous phleboliths are observed in the pelvis. Atherosclerotic calcification is noted in the pelvic arteries. There is mild lumbar spondylosis. The bony pelvis appears intact. IMPRESSION: 1. The heart appears mildly enlarged. There is no radiographic evidence of congestive failure. 2. Small pleural effusions are identified and unchanged. There is no airspace consolidation typical for pneumonia. 3. Nonobstructed abdominal bowel gas pattern. 4. Postoperative change is noted throughout the abdomen, similar to prior studies. Electronically signed by: Bradley Rivas M.D. 02/18/2017 1:50 PM Dictated Date/Time: 02/18/2017 1:46 PM
--- NOTE | 2017-02-18 14:41 | EMERGENCY ROOM VISIT NOTE ---
History Report prepared by Mason: Deepak Thakur Under the Supervision of: Dr. Yumiko Kumar D.O. First contact with patient: 11:59 Chief Complaint: ABDOMINAL PAIN Stated Complaint: ABD PAIN W/C-DIFF Nursing Triage Summary: Pt reports "I have CDiff." Pt has been on Vanco since February 02. Pt reports still having loose stools, N/V, and mid abdominal pain. Patient reports having abominal surgery in December. History of Present Illness The patient is a 57 year old female who presents to the Emergency Room with complaints of constant, worsening abdominal pain beginning 4 days. She rates her current discomfort a 6/10 in severity. The patient notes that at first her discomfort was originally intermittent until yesterday, where it became constant. She states that she had abdominal surgery last month for a hernia. The patient reports that she is currently being treated for C-Diff, but she states that her medication is not working. She notes that she has a history of C -Diff and reports that Flagyl and Vancomycin have not worked. She states that at night she has to wear diapers to bed because she is incontinent of her stool. The patient reports that she has pain medication that relieves her discomfort momentarily, but she does not want to take it. She states that she has overdosed in the hospital before, and she is afraid to take pain medication. The patient states that she is currently taking probiotics. She complains of nausea, vomiting, diarrhea, a low grade fever, and that drinking makes her pain worse. Pt denies headache, change in vision, chest pain, shortness of breath, pain with urination, and melena. She also notes that she has had a history of pancreatitis. She also notes that she has had a history of multiple abdominal surgeries. The patient states that her kidney function is 12 percent because she was diagnosed with polycystic kidney disease and has had a kidney transplant. She reports that her GI doctor is Dr. Bailey, and her automat watcher is Dr. Roy. Source of History: patient Onset: 4 days ago Position: abdomen Symptom Intensity: 6/10 Timing: constant, worsening Modifying Factors (Worsening): drinking Modifying Factors (Relieving): other (pain medication) Associated Symptoms: + diarrhea, + fevers, + nausea, + vomiting Review of Systems See HPI for pertinent positives & negatives. A total of 10 systems reviewed and were otherwise negative. Past Medical & Surgical Medical Problems: (1) Abdominal pain (2) Abdominal pain (3) Acute renal insufficiency (4) Asthma, Unspecified (5) Chronic Kidney Disease, Stage Iv (Severe) (6) Clostridium difficile diarrhea (7) Diab Raeann Wo Compl, Type Ii Or Unspec Type, Uncontrolled (8) HTN (hypertension) (9) Hyperlipidemia Nec/Nos (10) Immunosuppressed status (11) Pancreatitis (12) Polycystic Kidney, Unspecified Type (13) SBO (small bowel obstruction) (14) SIRS (systemic inflammatory response syndrome) Surgical Problems: (1) Kidney transplant recipient (2) Kidney Transplant Status Family History Kidney disease Kidney stones Social History Smoking Status: Never Smoker Alcohol Use: none Drug Use: none Marital Status: Housing Status: lives with family Occupation Status: employed Current/Historical Medications Scheduled Amlodipine Besylate (Amlodipine Besylate), 1 TAB PO DAILY Azelastine HCl (Azelastine HCl), 1 SPRAYS АНДРЕЙ DAILY Biotin (Biotin 5000), 5,000 MCG PO QAM Calcium W/ Vitamins D & K (Calcium + D + K), 1 TABLET PO MWF Carvedilol (Carvedilol), 2 TAB PO QAM Cyclosporine (Sandimmune), 75 MG PO BID Estrogens, Conjugated (Premarin), 0.625 MG PO UD Gemfibrozil (Lopid), 1 TAB PO Q2D Insulin Detemir (Levemir Flextouch), 26 UNITS SQ DAILY Krill Oil (Krill Oil [place]-3), 2 TAB PO DAILY Multivitamin (Multivitamin), 1 TAB PO QAM Ondansetron (Ondansetron HCl), 1 TAB PO BID Oxycodone HCl (Oxycodone HCl), 1 TAB PO Q6H Pantoprazole (Pantoprazole Sodium), 1 TAB PO DAILY Polysaccharide Iron Complex (Ferrex 150), 150 MG PO QPM Pramipexole (Mirapex), 0.125 MG PO HS Prednisone (Prednisone), 2.5 MG PO QAM Sirolimus (Rapamune), 1 MG PO QAM Vancomycin Hcl (Vancomycin), 1 TAB PO QID Venlafaxine Hcl (Effexor), 1 TAB PO HS Warfarin Sodium (Warfarin Sodium), 2.5 MG PO HS Miscellaneous Medications Epoetin Kvng (Procrit), 1 DOSE INJ Allergies Coded Allergies: Iodinated Diagnostic Agents (Verified Allergy, Severe, Hx Kidney Transplant, 02/18/17) Statins (Verified Allergy, Severe, "PANCREATITIS", 02/18/17) Hydrochlorothiazide (Verified Allergy, Mild, 02/18/17) Sulfa Antibiotics (Verified Allergy, Mild, ., 02/18/17) Sumatriptan (Verified Allergy, Mild, 02/18/17) Triamterene (Verified Allergy, Mild, 02/18/17) Atorvastatin (Verified Allergy, Unknown, ?, 02/18/17) Doxycycline (Verified Allergy, Unknown, UNKNOWN, 02/18/17) Levofloxacin (Verified Allergy, Unknown, joint pain, 02/18/17) Adhesives (Verified Adverse Reaction, Unknown, SKIN TEAR, 02/18/17) Ciprofloxacin (Verified Adverse Reaction, Unknown, FATIGUE, 02/18/17) Morphine (Verified Adverse Reaction, Unknown, INEFFECTIVE, 02/18/17) Physical Exam Vital Signs Date Time Temp Pulse Resp B/P Pulse Ox O2 Delivery O2 Flow Rate FiO2 02/18/17 14:02 60 16 123/66 99 Room Air 02/18/17 12:38 54 16 105/52 99 Room Air 02/18/17 11:38 36.6 57 18 114/59 99 Room Air Physical Exam GENERAL: alert, well appearing, well nourished, no distress, non-toxic EYE EXAM: normal conjunctiva, PERRL and EOM's grossly intact, mild scleral icterus OROPHARYNX: no exudate, no erythema, lips, buccal mucosa, and tongue normal and mucous membranes are mildly dry NECK: supple, no nuchal rigidity, no adenopathy, non-tender LUNGS: Clear to auscultation. Normal chest wall mechanics HEART: no murmurs, S1 normal and S2 normal ABDOMEN: abdomen soft, non-tender, normo-active bowel sounds, no masses, no rebound or guarding, vertical midline incision with no drainage, dehiscence, or erythema. mildly tympanitic, mildly distended BACK: Back is symmetrical on inspection and there is no deformity, no midline tenderness, no CVA tenderness. SKIN: no rashes and no bruising UPPER EXTREMITIES: upper extremities are grossly normal. LOWER EXTREMITIES: No pitting edema. NEURO EXAM: Normal sensorium, cranial nerves II-XII [grossly] intact, normal speech, no [gross] weakness of arms, no [gross] weakness of legs. [No drift. Finger to nose intact. Gross sensation intact.] Medical Decision & Procedures ER Provider Diagnostic Interpretation: Radiology results have been interpreted by the radiologist and reviewed by me. PA CHEST WITH ABDOMINAL SERIES CLINICAL HISTORY: Generalized abdominal pain. Diarrhea. FINDINGS: A PA chest radiograph is compared to study dated 02/18/2017. The cardiac silhouette appears mildly enlarged. The pulmonary vasculature is noncongested. Chronic residual thickening is similar to previous. There is no airspace consolidation typical for pneumonia. Small pleural effusions are noted. No pneumothorax is seen. The skeletal structures are osteopenic. The bony thorax is grossly intact. There are densely calcified bilateral breast implants. Supine and erect abdominal radiographs are compared to study dated 05/30/2016 and correlated with abdominal CT dated 05/26/2016. There is a nonobstructed abdominal bowel gas pattern. No evidence of intraperitoneal free air is seen. Numerous surgical clips are identified and there are several foci of suture material. Numerous phleboliths are observed in the pelvis. Atherosclerotic calcification is noted in the pelvic arteries. There is mild lumbar spondylosis. The bony pelvis appears intact. IMPRESSION: 1. The heart appears mildly enlarged. There is no radiographic evidence of congestive failure. 2. Small pleural effusions are identified and unchanged. There is no airspace consolidation typical for pneumonia. 3. Nonobstructed abdominal bowel gas pattern. 4. Postoperative change is noted throughout the abdomen, similar to prior studies. Electronically signed by: Bradley Rivas M.D. 02/18/2017 1:50 PM Dictated Date/Time: 02/18/2017 1:46 PM Laboratory Results 02/18/17 12:05 Red Blood Count 3.65, Mean Corpuscular Volume 90.1, Mean Corpuscular Hemoglobin 28.5, Mean Corpuscular Hemoglobin Concent 31.6, Mean Platelet Volume 9.8, Neutrophils (%) (Auto) 57.1, Lymphocytes (%) (Auto) 18.3, Monocytes (%) (Auto) 12.3, Eosinophils (%) (Auto) 11.9, Basophils (%) (Auto) 0.2, Neutrophils # (Auto ) 2.59, Lymphocytes # (Auto) 0.83, Monocytes # (Auto) 0.56, Eosinophils # (Auto ) 0.54, Basophils # (Auto) 0.01 Test 02/18/17 12:05 02/18/17 12:37 02/18/17 14:57 White Blood Count 4.54 K/uL (4.8-10.8) Red Blood Count 3.65 M/uL (4.2-5.4) Hemoglobin 10.4 g/dL (12.0-16.0) Hematocrit 32.9 % (37-47) Mean Corpuscular Volume 90.1 fL (80-100) Mean Corpuscular Hemoglobin 28.5 pg (25-34) Mean Corpuscular Hemoglobin Concent 31.6 g/dl (32-36) Platelet Count 225 K/uL (130-400) Mean Platelet Volume 9.8 fL (7.4-10.4) Neutrophils (%) (Auto) 57.1 % Lymphocytes (%) (Auto) 18.3 % Monocytes (%) (Auto) 12.3 % Eosinophils (%) (Auto) 11.9 % Basophils (%) (Auto) 0.2 % Neutrophils # (Auto) 2.59 K/uL (1.4-6.5) Lymphocytes # (Auto) 0.83 K/uL (1.2-3.4) Monocytes # (Auto) 0.56 K/uL (0.11-0.59) Eosinophils # (Auto) 0.54 K/uL (0-0.5) Basophils # (Auto) 0.01 K/uL (0-0.2) RDW Standard Deviation 60.6 fL (36.4-46.3) RDW Coefficient of Variation 18.3 % (11.5-14.5) Immature Granulocyte % (Auto) 0.2 % Immature Granulocyte # (Auto) 0.01 K/uL (0.00-0.02) Total Bilirubin 0.7 mg/dl (0.2-1) Aspartate Amino Transf (AST/SGOT) 19 U/L (15-37) Alanine Aminotransferase (ALT/SGPT) 27 U/L (12-78) Alkaline Phosphatase 93 U/L (45-117) Total Protein 7.5 gm/dl (6.4-8.2) Globulin 4.1 gm/dl (2.5-4.0) Albumin/Globulin Ratio 0.8 (0.9-2) Lactic Acid Level 0.6 mmol/L (0.4-2.0) Urine Color YELLOW Urine Appearance CLEAR (CLEAR) Urine pH 5.0 (4.5-7.5) Urine Specific [place] 1.011 (1.000-1.030) Urine Protein NEG (NEG) Urine Glucose (UA) NEG (NEG) Urine Ketones NEG (NEG) Urine Occult Blood NEG (NEG) Urine Nitrite NEG (NEG) Urine Bilirubin NEG (NEG) Urine Urobilinogen NEG (NEG) Urine Leukocyte Esterase TRACE (NEG) Urine WBC (Auto) 1-5 /hpf (0-5) Urine RBC (Auto) 0-4 /hpf (0-4) Urine Hyaline Casts (Auto) 1-5 /lpf (0-5) Urine Epithelial Cells (Auto) >30 /lpf (0-5) Urine Bacteria (Auto) NEG (NEG) Laboratory results per my review. Medications Administered Medications (Trade) Dose Ordered Sig/Dominique Route Start Time Stop Time Status Last Admin Dose Admin Sodium Chloride (Nss 1000ml) 1,000 ml @ 999 mls/hr Q1H1M STAT IV 02/18/17 12:22 02/18/17 13:22 DC 02/18/17 12:37 999 MLS/HR Hydromorphone HCl 0.5 mg 0.5 mg NOW STAT IV 02/18/17 12:22 02/18/17 12:25 DC 02/18/17 12:37 0.5 MG Sodium Chloride (Nss 1000ml) 1,000 ml @ 999 mls/hr Q1H1M STAT IV 02/18/17 13:47 02/18/17 14:47 DC 02/18/17 14:03 999 MLS/HR Fidaxomicin (Dificid Tab) 200 mg 1523 ONCE PO 02/18/17 15:23 02/18/17 17:22 DC 02/18/17 15:23 200 MG ED Course 1204: The patient was evaluated in room C05. A complete history and physical exam was performed. Discussed imaging of her abdomen. Pt refuses CT after discussion of possible etiology of pain as she states she "has had too many already". Discussed xray which she is agreeable to and discussed limitations. Verbalized understanding. 1222: Ordered Dilaudid Inj 0.5mg IV, Sodium Chloride 1000 ml @ 999 mls/hr IV 1347: Ordered Sodium Chloride 1000 ml @ 999 mls/hr IV 1403: Upon reevaluation, the patient is resting easy. Pt states hx of pancreatitis, no etoh and GB removed, states due to elevated triglycerides but is unable to take statins. I discussed the findings and the treatment plan with the patient. She expresses agreement and understanding. I spoke with Su Holcomb of the [facility] Hospitalist Service. The patient will be evaluated for further management. Medical Decision Differential diagnosis: Etiologies such as appendicitis, diverticulitis, PUD, biliary pathology, UTI, pancreatitis, obstruction, mesenteric ischemia, aortic pathology, infections, inflammatory bowel disease, renal colic, as well as others were entertained. Pt with acute on chronic renal disease and is a renal transplant patient. Likely this was exacerbated by dehydration from c.diff. LIkely dehydration contributing to abdominal pain, mild pancreatitis likely contributing also. Pt with a hx of the same. Pt reports no improvement thus far with vancomycin for her c.diff. Pt has been refractory to standard tx previously. Pt immunocompromised and on chronic steroids. Doubt occult UTI. Pt has local automat watcher. No evidence of bacteremia/sepsis, xrays nonobstructive pattern at this time. Discussed with hospitalist PA for admission. Did not feel pt with emergent post op complication requiring transfer to [place] to her surgeon again. Consults Time Called: [phone] Consulting Physician: Su Holcomb, [facility] Returned Call: [phone] I spoke with Su Holcomb of the [facility] Hospitalist Service. The patient will be evaluated for further management. Impression Primary Impression: Acute on chronic renal failure Additional Impressions: Dehydration Abdominal pain Elevated lipase Clostridium difficile diarrhea Weakness Scribe Attestation The scribe's documentation has been prepared under my direction and personally reviewed by me in its entirety. I confirm that the note above accurately reflects all work, treatment, procedures, and medical decision making performed by me. Departure Information Dispostion Being Evaluated By Hospitalist Referrals No Doctor, Assigned (PCP) Patient Instructions My [facility] Problem Qualifiers Primary Impression: Acute on chronic renal failure Acute renal failure type: unspecified Chronic kidney disease stage: unspecified stage Qualified Codes: N17.9 - Acute kidney failure, unspecified; N18.9 - Chronic kidney disease, unspecified Additional Impressions: Abdominal pain Abdominal location: generalized Qualified Codes: R10.84 - Generalized abdominal pain
[2017-02-18] MEDS ORDERED: FIDAXOMICIN TAB 200 MG TAB PO ONE (15:23)
[2017-02-18 15:24] LABS: URINE APPEARANCE CLEAR (CLEAR); URINE BILIRUBIN NEG (NEG); URINE COLOR YELLOW; URINE EPITHELIAL CELL AUTO >30 /lpf (0-5); URINE NITRITE NEG (NEG); URINE SPECIFIC GRAVITY 1.011 (1.000-1.030); UROBILINOGEN NEG (NEG); ZZUR CULT IF INDIC CLEAN CATCH NO
[2017-02-18 15:25] LABS: MANUAL MICROSCOPIC REQUIRED? NO; REVIEW REQ? NO
[2017-02-18] MEDS ORDERED: MAGNESIUM HYDROXIDE SUSP 30 ML UDC PO PRN (15:30)
[2017-02-18] MEDS ORDERED: GLUCOSE 10 TABS/TUBE PO PRN (15:30)
[2017-02-18] MEDS ORDERED: GLUCAGON FOR INJ 1 MG VIAL SQ PRN (15:30)
[2017-02-18] MEDS ORDERED: GLUCOSE 40% GEL 15 GM TUBE PO PRN (15:30)
[2017-02-18] MEDS ORDERED: DEXTROSE 50% 50 ML SYR IV PRN (15:30)
[2017-02-18] MEDS ORDERED: ESTROGENS, CONJUGATED 0.625 MG TAB PO SCH (15:45)
[2017-02-18] MEDS ORDERED: NON-FORMULARY MEDICATION SCH (15:45)
--- NOTE | 2017-02-18 15:56 | History and Physical ---
History & Physical Date & Time of Service: February 18, 2017 at 15:34 Chief Complaint: Abd Pain W/C-Diff Primary Care Physician: Shruthi Mcbride D.O. History of Present Illness Source: patient 57 y/o F c/o diarrhea. Pt states she was dx with cdiff on 02/02/17. She was put on PO vanco as outpt, however her sx have continued to persist. Her diarrhea is essentially constant, so much so that she has to wear a diaper. She has n/v, although she was able to keep down 1/2 of a sandwich yesterday. She also developed diffuse abd pain in the last few days. She has bloating as well. Pain is upper/epigastric at its worst, but is essentially her entire abd. She has hx of renal transplant and has a probiotic that she prefers and has no issues with. She states that she was told she will likely need to replace her prior transplant in the next year. At baseline, she does still make urine and has continued to do so currently. No flank pain. Pt has hx of cdiff that was not responsive to vanco and flagyl. She was put on dificid as an outpt in the past and this has worked for her. Pt denies fever, SOB, chest pain, LE pain or swelling. ROS as noted above, otherwise neg. Pt states that when she is in the hospital she gets migraines and requires dilaudid. Pt states that she has had over 20 CTs in her life and is requesting to avoid these if possible. Past Medical/Surgical History Medical Problems: (1) Abdominal pain Status: Resolved (2) Abdominal pain Status: Resolved (3) Asthma, Unspecified Status: Chronic (4) Chronic Kidney Disease, Stage Iv (Severe) Status: Chronic (5) Diab Raeann Wo Compl, Type Ii Or Unspec Type, Uncontrolled Status: Chronic (6) HTN (hypertension) Status: Chronic (7) Hyperlipidemia Nec/Nos Status: Chronic (8) Polycystic Kidney, Unspecified Type Status: Chronic Surgical Problems: (1) Kidney Transplant Status Status: Resolved Family History Family history was reviewed; no changes noted. 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 Allergies Coded Allergies: Iodinated Diagnostic Agents (Verified Allergy, Severe, Hx Kidney Transplant, 02/18/17) Statins (Verified Allergy, Severe, "PANCREATITIS", 02/18/17) Hydrochlorothiazide (Verified Allergy, Mild, 02/18/17) Sulfa Antibiotics (Verified Allergy, Mild, ., 02/18/17) Sumatriptan (Verified Allergy, Mild, 02/18/17) Triamterene (Verified Allergy, Mild, 02/18/17) Atorvastatin (Verified Allergy, Unknown, ?, 02/18/17) Doxycycline (Verified Allergy, Unknown, UNKNOWN, 02/18/17) Levofloxacin (Verified Allergy, Unknown, joint pain, 02/18/17) Adhesives (Verified Adverse Reaction, Unknown, SKIN TEAR, 02/18/17) Ciprofloxacin (Verified Adverse Reaction, Unknown, FATIGUE, 02/18/17) Morphine (Verified Adverse Reaction, Unknown, INEFFECTIVE, 02/18/17) Home Medications Scheduled Amlodipine Besylate (Amlodipine Besylate), 1 TAB PO DAILY Azelastine HCl (Azelastine HCl), 1 SPRAYS АНДРЕЙ DAILY Biotin (Biotin 5000), 5,000 MCG PO QAM Calcium W/ Vitamins D & K (Calcium + D + K), 1 TABLET PO MWF Carvedilol (Carvedilol), 2 TAB PO QAM Cyclosporine (Sandimmune), 75 MG PO BID Estrogens, Conjugated (Premarin), 0.625 MG PO UD Gemfibrozil (Lopid), 1 TAB PO Q2D Insulin Detemir (Levemir Flextouch), 26 UNITS SQ DAILY Krill Oil (Krill Oil [place]-3), 2 TAB PO DAILY Multivitamin (Multivitamin), 1 TAB PO QAM Ondansetron (Ondansetron HCl), 1 TAB PO BID Oxycodone HCl (Oxycodone HCl), 1 TAB PO Q6H Pantoprazole (Pantoprazole Sodium), 1 TAB PO DAILY Polysaccharide Iron Complex (Ferrex 150), 150 MG PO QPM Pramipexole (Mirapex), 0.125 MG PO HS Prednisone (Prednisone), 2.5 MG PO QAM Sirolimus (Rapamune), 1 MG PO QAM Vancomycin Hcl (Vancomycin), 1 TAB PO QID Venlafaxine Hcl (Effexor), 1 TAB PO HS Warfarin Sodium (Warfarin Sodium), 2.5 MG PO HS Miscellaneous Medications Epoetin Kvng (Procrit), 1 DOSE INJ Physical Exam Vital Signs Date Time Temp Pulse Resp B/P Pulse Ox O2 Delivery O2 Flow Rate FiO2 02/18/17 14:02 60 16 123/66 99 Room Air 02/18/17 12:38 54 16 105/52 99 Room Air 02/18/17 11:38 36.6 57 18 114/59 99 Room Air General Appearance: WD/WN, no apparent distress Head: normocephalic, atraumatic Respiratory/Chest: normal breath sounds, no respiratory distress Cardiovascular: regular rate, rhythm, no edema Abdomen/GI: soft, + tenderness (diffuse, most TTP is upper abd), + distended Extremities/Musculoskelatal: no calf tenderness, no pedal edema Neurologic/Psych: alert, normal mood/affect, oriented x 3 Skin: normal color, warm/dry Diagnostics Laboratory Results Results Past 24 Hours Test 02/18/17 12:05 02/18/17 12:37 02/18/17 14:57 Range/Units White Blood Count 4.54 4.8-10.8 K/uL Red Blood Count 3.65 4.2-5.4 M/uL Hemoglobin 10.4 12.0-16.0 g/dL Hematocrit 32.9 37-47 % Mean Corpuscular Volume 90.1 80-100 fL Mean Corpuscular Hemoglobin 28.5 25-34 pg Mean Corpuscular Hemoglobin Concent 31.6 32-36 g/dl Platelet Count 225 130-400 K/uL Mean Platelet Volume 9.8 7.4-10.4 fL Neutrophils (%) (Auto) 57.1 % Lymphocytes (%) (Auto) 18.3 % Monocytes (%) (Auto) 12.3 % Eosinophils (%) (Auto) 11.9 % Basophils (%) (Auto) 0.2 % Neutrophils # (Auto) 2.59 1.4-6.5 K/uL Lymphocytes # (Auto) 0.83 1.2-3.4 K/uL Monocytes # (Auto) 0.56 0.11-0.59 K/uL Eosinophils # (Auto) 0.54 0-0.5 K/uL Basophils # (Auto) 0.01 0-0.2 K/uL RDW Standard Deviation 60.6 36.4-46.3 fL RDW Coefficient of Variation 18.3 11.5-14.5 % Immature Granulocyte % (Auto) 0.2 % Immature Granulocyte # (Auto) 0.01 0.00-0.02 K/uL Sodium Level 135 136-145 mmol/L Potassium Level 3.8 3.5-5.1 mmol/L Chloride Level 97 98-107 mmol/L Carbon Dioxide Level 23 21-32 mmol/L Anion Gap 15.0 3-11 mmol/L Blood Urea Nitrogen 80 7-18 mg/dl Creatinine 6.50 0.60-1.20 mg/dl Est Creatinine Clear Calc Drug Dose 9.5 ml/min Estimated GFR () 7.5 Estimated GFR (Non- 6.5 BUN/Creatinine Ratio 12.3 10-20 Random Glucose 120 70-99 mg/dl Calcium Level 9.1 8.5-10.1 mg/dl Total Bilirubin 0.7 0.2-1 mg/dl Aspartate Amino Transf (AST/SGOT) 19 15-37 U/L Alanine Aminotransferase (ALT/SGPT) 27 12-78 U/L Alkaline Phosphatase 93 45-117 U/L Total Protein 7.5 6.4-8.2 gm/dl Albumin 3.4 3.4-5.0 gm/dl Globulin 4.1 2.5-4.0 gm/dl Albumin/Globulin Ratio 0.8 0.9-2 Lipase 564 73-393 U/L Lactic Acid Level 0.6 0.4-2.0 mmol/L Urine Color YELLOW Urine Appearance CLEAR CLEAR Urine pH 5.0 4.5-7.5 Urine Specific [place] 1.011 1.000-1.030 Urine Protein NEG NEG Urine Glucose (UA) NEG NEG Urine Ketones NEG NEG Urine Occult Blood NEG NEG Urine Nitrite NEG NEG Urine Bilirubin NEG NEG Urine Urobilinogen NEG NEG Urine Leukocyte Esterase TRACE NEG Urine WBC (Auto) 1-5 0-5 /hpf Urine RBC (Auto) 0-4 0-4 /hpf Urine Hyaline Casts (Auto) 1-5 0-5 /lpf Urine Epithelial Cells (Auto) >30 0-5 /lpf Urine Bacteria (Auto) NEG NEG Diagnostic Radiology C/AbdXR: neg for acute, specifically obstruction Impression Assessment and Plan 57 y/o F who was admitted on 02/18 for cdiff colitis Cdiff colitis: Not responsive to vanco with hx of same, pt with n/v and severe diarrhea Start dificid today and monitor Will not send stool for cdiff given recent + and unlikely to be changed IVF Probiotics--pt has probiotic from home that is safe in transplant pt, to bring in ? Acute pancreatitis: Epigastric TTP with mildly elevated lipase Pt declines CT AP Pt will be NPO with IVF and will monitor Can recheck lipase in 2-3 days if no improvement, but can likely be a clinical assessment Pt is aware that if condition does not improve with change in medication that we may need to proceed with CT Acute on chronic renal failure: Baseline cr is 3.7 with hx of renal transplant Now at 6.0 in the setting of diarrhea, n/v, decreased PO intake, and dehydration Renal US pending Pt is still making urine and will not need HD at this time, can monitor on IVF Follows with Dr. Roy if needed Afib: INR pending Current warfarin dose is 2.5mg QD, but has been changing frequently recently due to abx use Monitor DM: Holding home levemir while NPO SSI PRN HTN: stable, continue home meds Renal transplant status: continue transplant meds, will bring from home as needed Other: Full code Warfarin for DVT proph NPO with IVF Level of Care Med/Surg Resuscitation Status FULL RESUSCITATION VTE Prophylaxis VTE Risk Assessment Done? Y/N: Yes Risk Level: Low
[2017-02-18] MEDS: HYDROmorphone INJ 1 MG/ML SYR IV PRN (16:08)
[2017-02-18 17:09] VITALS: BP 171/70; PULSE 65; TEMP 36.6; O2SAT 99
[2017-02-18] MEDS: INSULIN ASPART 100 UNITS/ML 3 ML PEN SC SCH ×2 (17:15→21:00)
--- NOTE | 2017-02-18 17:37 | DIAGNOSTIC IMAGING REPORT ---
ULTRASOUND RENAL TRANSPLANT CLINICAL HISTORY: Elevated creatinine. COMPARISON STUDY: Abdominal CT dated 05/26/2016. Renal transplant ultrasound dated 07/27/2015. TECHNIQUE: Multiple hooks scale, color Doppler, and spectral Doppler sonograms of the transplanted kidney were obtained in the transverse and longitudinal planes. FINDINGS: The transplanted kidney is identified in the left pelvis. The transplant appears somewhat atrophic and measures 9.7 cm in length. Echotexture is grossly normal. There is no hydronephrosis. The resistive index in the segmental arterial branches ranges from 0.63 and 0.77 . The velocities within the main renal artery within normal limits measuring up to 137 cm/s. The main renal vein is patent. The left iliac artery and vein are patent. No perirenal fluid collection is seen. The bladder is decompressed and grossly unremarkable. IMPRESSION: 1. The left renal pelvic transplant demonstrates mild cortical atrophy and is without hydronephrosis. 2. Intrarenal resistive indices are documented above. 3. The transplant renal artery and vein are patent. Electronically signed by: Bradley Rivas M.D. 02/18/2017 5:36 PM Dictated Date/Time: 02/18/2017 5:32 PM
[2017-02-18 18:06] VITALS: BP 171/70; PULSE 65; TEMP 36.6; BMI 24.0
[2017-02-18 18:21] LABS: INR 1.6 (0.9-1.1); PROTHROMBIN TIME (PATIENT) 17.4 SECONDS (9.0-12.0)
[2017-02-18] MEDS: D5NSS + 20MEQ KCL 1,000 ML IV SCH (18:43)
[2017-02-18] MEDS: WARFARIN SOD 2.5 MG TAB PO SCH (20:08)
[2017-02-18] MEDS: CycloSPORINE (SANDIMMUNE) 25 MG CAP PO SCH (20:56)
[2017-02-18] MEDS: VENLAFAXINE HCL 37.5 MG TAB PO SCH (20:56)
[2017-02-18] MEDS: IRON COMPLEX POLYSACCHARIDE W/VIT C 150 MG CAP PO SCH (20:57)
[2017-02-18] MEDS: PRAMIPEXOLE DIHYDROCHLORIDE 0.25MG TAB PO SCH (20:58)
[2017-02-18] MEDS ORDERED: GEMFIBROZIL 600 MG TAB PO SCH (21:00)
[2017-02-18] MEDS ORDERED: ONDANSETRON 4 MG TAB PO PRN (21:00)
[2017-02-18] MEDS: FIDAXOMICIN TAB 200 MG TAB PO SCH (21:08)
[2017-02-18] MEDS ORDERED: NURSING VERBAL MED ORDER ONE ×2 (21:30→22:15)
[2017-02-18 22:31] VITALS: BP 157/78; PULSE 65
[2017-02-18] MEDS: CARVEDILOL 12.5 MG TAB PO SCH (22:32)
[2017-02-19 00:06] VITALS: BP 131/74; PULSE 60; TEMP 36.7; O2SAT 97
[2017-02-19] MEDS: D5NSS + 20MEQ KCL 1,000 ML IV SCH ×4 (00:09→23:35)
[2017-02-19 05:51] LABS: INR 1.7 (0.9-1.1); PROTHROMBIN TIME (PATIENT) 18.2 SECONDS (9.0-12.0)
[2017-02-19 06:20] LABS: CREATININE 5.4 mg/dl (0.60-1.20); POTASSIUM 4.2 mmol/L (3.5-5.1)
[2017-02-19 07:15] VITALS: O2SAT 97
[2017-02-19 07:21] VITALS: BP 114/61; PULSE 59; TEMP 36.5; O2SAT 96
[2017-02-19] MEDS: HYDROmorphone INJ 1 MG/ML SYR IV PRN ×5 (07:26→22:58)
[2017-02-19] MEDS ORDERED: CARVEDILOL 12.5 MG TAB PO SCH (09:00)
[2017-02-19] MEDS ORDERED: AZELASTINE HCL NAE SCH (09:00)
[2017-02-19] MEDS ORDERED: NON-FORMULARY MEDICATION (Sirolimus (Rapamune) 1 MG) PO SCH (09:00)
[2017-02-19] MEDS ORDERED: SIROLIMUS 1 MG PO SCH (09:00)
--- NOTE | 2017-02-19 09:25 | Progress Note ---
Progress Note Date of Service February 19, 2017. Progress Note ID Consult Dictated #[id number] A/P: 1. C diff -can continue dificid use as pt appears to be responding to this -thank you
[2017-02-19] MEDS ORDERED: NURSING VERBAL MED ORDER ONE ×2 (09:45→16:45)
[2017-02-19] MEDS: INSULIN ASPART 100 UNITS/ML 3 ML PEN SC SCH ×3 (09:54→17:22)
[2017-02-19] MEDS: MULTIVITAMIN TAB PO SCH (09:55)
[2017-02-19] MEDS: PANTOprazole SOD 40 MG TAB PO SCH (09:55)
[2017-02-19] MEDS: OMEGA-3 (PURIFIED FISH OIL) 1 GM CAP PO SCH ×2 (09:56→10:24)
[2017-02-19] MEDS: CARVEDILOL 3.125 MG TAB PO SCH (09:57)
[2017-02-19] MEDS: AMLODIPINE BESYLATE 5 MG TAB PO SCH (09:58)
[2017-02-19] MEDS: FIDAXOMICIN TAB 200 MG TAB PO SCH ×2 (10:25→21:19)
[2017-02-19] MEDS: [UNRECOGNIZED DRUG - OTHER] PO SCH (10:25)
--- NOTE | 2017-02-19 10:51 | Nephrology Consultation ---
Nephrology Consultation Date & Providers Date of Consultation: February 19, 2017. Primary Care Provider: Shruthi Mcbride D.O. Referring Provider: Reason for Consultation MARCIO, kidney transplant History of Present Illness Mrs. Tia Bowling is a 57-year-old female a complicated medical history. Inpatient and outpatient medical records were reviewed in detail this morning. Patient presented to [facility] yesterday with abdominal pain and diarrhea. She has a history of recurrent C diff colitis. She also has a history of recurrent pancreatitis. Current admission is consistent with the same complicated by acute worsening of renal allograft function. Abdominal CT scan was reviewed. Patient has a history of autosomal dominant polycystic kidney disease. She developed end-stage renal disease disease around the year 1999. She was maintained on peritoneal dialysis prior to living related kidney transplant. Her cousin was the donor. Transplant was performed at the [facility]. There were no immediate complications with the allograft or surgery. Initial allograft function appropriate. Unfortunately filtration deteriorated over time which was attributed to cyclosporine nephrotoxicity. She was maintained on prednisone and otherwise single agent immunosuppression with sirolimus for a period of time. There is no significant reported history of rejection. She reports that cyclosporine was restarted when she established in the transplant clinic at [facility] in [place]. Current baseline creatinine is approximately 3.5 milligram/ deciliter. The patient currently follows with the transplant group at [facility]. She was recently at [facility] in December for routine follow- up. She is currently inactive on the transplant list. She states she does have a cousin who is interested in being a living donor. She is currently been maintained on immunosuppression with sirolimus, cyclosporine and prednisone. Tia is followed in Nephrology Clinic locally by Dr. Jarrett Roy. She is not a candidate for peritoneal dialysis due to abdominal hernia and multiple abdominal surgeries. She has deferred AV fistula placement hoping for preemptive transplant. In December, Tia had a hospitalization at for extensive hernia repair. Tia has a history of recurrent C diff colitis. This was resistant to treatment with oral vancomycin and Flagyl. Infectious Disease consultation was obtained today. She is currently on treatment with Dificid. She has responded to this therapy in the past. She has a history of recurrent pancreatitis which was previously attributed to statin medication use. She also has a history of hypertriglyceridemia. There is also history of recurrent urinary tract infections. Renal transplant ultrasound reveals cortical atrophy with normal resistive indices and a patent artery and vein. Urinalysis is bland with acellular microscopy. Serum creatinine on admission 6.5 milligram/deciliter improved to 5.4 milligram/deciliter today with IV fluids. Diarrhea is improving. Appetite remains poor. She is unable to tolerate oral intake due to abdominal pain. She has not noticed a significant improvement in her dominant symptoms. She describes pain which is consistent with prior episodes of pancreatitis. She denies any fevers or chills. She denies any melena or hematochezia. She denies dysuria. She is voiding urine without difficulty. 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 Maintained on Procrit as outpatient. -- Diverticulosis with history of diverticulitis and diverticular abscess -- Depression Surgical: -- Kidney transplant -- yav[place]ai-prescott nephrectomy -- Multiple abdominal surgeries with extensive hernia repair including mesh placement. Most recently in December at -- Partial colectomy -- Colposcopy -- Allergies Coded Allergies: Iodinated Diagnostic Agents (Verified Allergy, Severe, Hx Kidney Transplant, 02/18/17) Statins (Verified Allergy, Severe, "PANCREATITIS", 02/18/17) Hydrochlorothiazide (Verified Allergy, Mild, 02/18/17) Sulfa Antibiotics (Verified Allergy, Mild, ., 02/18/17) Sumatriptan (Verified Allergy, Mild, 02/18/17) Triamterene (Verified Allergy, Mild, 02/18/17) Atorvastatin (Verified Allergy, Unknown, ?, 02/18/17) Doxycycline (Verified Allergy, Unknown, UNKNOWN, 02/18/17) Levofloxacin (Verified Allergy, Unknown, joint pain, 02/18/17) Adhesives (Verified Adverse Reaction, Unknown, SKIN TEAR, 02/18/17) Ciprofloxacin (Verified Adverse Reaction, Unknown, FATIGUE, 02/18/17) Morphine (Verified Adverse Reaction, Unknown, INEFFECTIVE, 02/18/17) Inpatient Medications Current Inpatient Medications Medications (Trade) Dose Ordered Sig/Dominique Route Start Time Stop Time Status Last Admin Dose Admin Acetaminophen (Tylenol Tab) 650 mg Q4H PRN PO 02/18/17 15:30 03/20/17 15:29 Magnesium Hydroxide (Milk Of Magnesia Susp) 30 ml Q6H PRN PO 02/18/17 15:30 03/20/17 15:29 Ondansetron HCl (Zofran Inj) 4 mg Q6H PRN IV 02/18/17 15:30 03/20/17 15:29 Insulin Aspart (novoLOG ASPART) SLIDING SCALE If C... ACHS SC 02/18/17 17:15 03/20/17 17:14 Glucose (Glucose 40% Gel) 15-30 GRAMS 15 GRAMS... UD PRN PO 02/18/17 15:30 03/20/17 15:29 Glucose (Glucose Chew Tab) 4-8 Tablets 4 Tabl... UD PRN PO 02/18/17 15:30 03/20/17 15:29 Dextrose (Dextrose 50% 50ML Syringe) 25-50ML OF 50% DW IV FOR... UD PRN IV 02/18/17 15:30 03/20/17 15:29 Glucagon (Glucagon Inj) 1 mg UD PRN SQ 02/18/17 15:30 03/20/17 15:29 Hydromorphone HCl (Dilaudid Inj) 0.5 mg Q4H PRN IV 02/18/17 15:30 03/04/17 15:29 02/19/17 07:26 0.5 MG Fidaxomicin 200 mg 200 mg BID PO 02/18/17 21:00 03/04/17 20:59 02/18/17 21:08 200 MG Potassium Chloride/Dextrose/ Sod Cl (D5nss + 20meq KCl) 1,000 ml @ 125 mls/hr Q8H IV 02/18/17 15:30 03/20/17 15:29 02/19/17 07:40 125 MLS/HR Amlodipine Besylate (Norvasc Tab) 5 mg DAILY PO 02/19/17 09:00 03/21/17 08:59 Cyclosporine (Sandimmune Cap) 75 mg BID PO 02/18/17 21:00 03/20/17 20:59 Future Hold 02/18/17 20:56 75 MG Multivitamins (Multivitamin Tab) 1 tab QAM PO 02/19/17 09:00 03/21/17 08:59 Ondansetron HCl (Zofran Tab) 4 mg BID PRN PO 02/18/17 21:00 03/20/17 20:59 Pantoprazole Sodium (Protonix Tab) 40 mg DAILY PO 02/19/17 09:00 03/21/17 08:59 Polysaccharide Iron Complex (Niferex-150 w/ Vit C Cap) 150 mg QPM PO 02/18/17 21:00 03/20/17 20:59 02/18/17 20:57 150 MG Pramipexole Dihydrochloride (miraPEX TAB) 0.125 mg HS PO 02/18/17 21:00 03/20/17 20:59 02/18/17 20:58 0.125 MG Venlafaxine HCl (effeXOR TAB) 37.5 mg HS PO 02/18/17 21:00 03/20/17 20:59 02/18/17 20:56 37.5 MG Warfarin Sodium (Coumadin Tab) 2.5 mg DAILY@1600 PO 02/18/17 20:00 03/20/17 19:59 02/18/17 20:08 2.5 MG Fish Oil (Natoma-3 (Purified Fish Oil) Cap) 2 gm DAILY PO 02/19/17 09:00 03/21/17 08:59 Miscellaneous Information (Order Awaiting Action) 1 ea DAILY N/A 02/19/17 09:00 03/21/17 08:59 02/19/17 09:42 1 EA Miscellaneous Information (Order Awaiting Action) 1 ea QS N/A 02/19/17 00:00 03/21/17 00:00 Sirolimus (Rapamune) 1 mg DAILY PO 02/19/17 09:00 03/21/17 08:59 Future Hold Non-Formulary Medication (Non-Formulary Patient'S Own Med) 1 ea DAILY PO 02/19/17 09:00 03/21/17 08:59 Carvedilol (Coreg Tab) 12.5 mg HS PO 02/18/17 22:00 03/20/17 21:59 02/18/17 22:32 12.5 MG Carvedilol (Coreg Tab) 3.125 mg QAM PO 02/19/17 09:00 03/21/17 08:59 Prednisone (PredniSONE TAB) 5 mg QAM PO 02/20/17 09:00 03/22/17 08:59 UNV Miscellaneous Information (Nursing Verbal Med Order) 1 ea ONE ONCE N/A 02/19/17 09:45 02/19/17 09:46 UNV Family History Kidney disease Kidney stones Social History Smoking Status: Former Smoker Alcohol Use: none Drug Use: none Marital Status: Housing Status: lives with family Occupation: employed Review of Systems A complete review of systems was performed. Pertinent positives are noted above. All other systems are negative. Physical Exam Date Time Temp Pulse Resp B/P Pulse Ox O2 Delivery O2 Flow Rate FiO2 02/19/17 07:21 36.5 59 16 114/61 96 Room Air 02/19/17 00:10 Room Air 02/19/17 00:06 36.7 60 16 131/74 97 Room Air 02/18/17 22:31 65 157/78 02/18/17 20:19 Room Air 02/18/17 18:06 36.6 65 12 171/70 Room Air 02/18/17 17:09 36.6 65 12 171/70 99 Room Air 02/18/17 15:47 62 16 131/71 99 Room Air 02/18/17 14:02 60 16 123/66 99 Room Air 02/18/17 12:38 54 16 105/52 99 Room Air 02/18/17 11:38 36.6 57 18 114/59 99 Room Air General Appearance: WD/WN, no apparent distress Head: normocephalic, atraumatic Eyes: normal inspection, sclerae normal ENT: normal ENT inspection, pharynx normal Neck: supple, no JVD Respiratory/Chest: lungs clear, no respiratory distress, no accessory muscle use Cardiovascular: regular rate, rhythm, no gallop Abdomen/GI: soft, + tenderness (right upper quadrant and midline), + guarding, + pertinent finding (midline incision well healed, multiple abdominal scars, normoactive bowel sounds, left lower quadrant allograft ) Extremities/Musculoskelatal: normal inspection, no pedal edema Neurologic/Psych: alert, normal mood/affect, oriented x 3 Skin: normal color Laboratory Results Last 24 Hours Test 02/18/17 12:05 02/18/17 12:37 02/18/17 14:57 02/18/17 15:40 White Blood Count 4.54 K/uL Red Blood Count 3.65 M/uL Hemoglobin 10.4 g/dL Hematocrit 32.9 % Mean Corpuscular Volume 90.1 fL Mean Corpuscular Hemoglobin 28.5 pg Mean Corpuscular Hemoglobin Concent 31.6 g/dl Platelet Count 225 K/uL Mean Platelet Volume 9.8 fL Neutrophils (%) (Auto) 57.1 % Lymphocytes (%) (Auto) 18.3 % Monocytes (%) (Auto) 12.3 % Eosinophils (%) (Auto) 11.9 % Basophils (%) (Auto) 0.2 % Neutrophils # (Auto) 2.59 K/uL Lymphocytes # (Auto) 0.83 K/uL Monocytes # (Auto) 0.56 K/uL Eosinophils # (Auto) 0.54 K/uL Basophils # (Auto) 0.01 K/uL RDW Standard Deviation 60.6 fL RDW Coefficient of Variation 18.3 % Immature Granulocyte % (Auto) 0.2 % Immature Granulocyte # (Auto) 0.01 K/uL Sodium Level 135 mmol/L Potassium Level 3.8 mmol/L Chloride Level 97 mmol/L Carbon Dioxide Level 23 mmol/L Anion Gap 15.0 mmol/L Blood Urea Nitrogen 80 mg/dl Creatinine 6.50 mg/dl Est Creatinine Clear Calc Drug Dose 9.5 ml/min Estimated GFR () 7.5 Estimated GFR (Non- 6.5 BUN/Creatinine Ratio 12.3 Random Glucose 120 mg/dl Calcium Level 9.1 mg/dl Total Bilirubin 0.7 mg/dl Aspartate Amino Transf (AST/SGOT) 19 U/L Alanine Aminotransferase (ALT/SGPT) 27 U/L Alkaline Phosphatase 93 U/L Total Protein 7.5 gm/dl Albumin 3.4 gm/dl Globulin 4.1 gm/dl Albumin/Globulin Ratio 0.8 Lipase 564 U/L Lactic Acid Level 0.6 mmol/L Urine Color YELLOW Urine Appearance CLEAR Urine pH 5.0 Urine Specific [place] 1.011 Urine Protein NEG Urine Glucose (UA) NEG Urine Ketones NEG Urine Occult Blood NEG Urine Nitrite NEG Urine Bilirubin NEG Urine Urobilinogen NEG Urine Leukocyte Esterase TRACE Urine WBC (Auto) 1-5 /hpf Urine RBC (Auto) 0-4 /hpf Urine Hyaline Casts (Auto) 1-5 /lpf Urine Epithelial Cells (Auto) >30 /lpf Urine Bacteria (Auto) NEG Bedside Prothrombin Time INR 1.6 Test 02/18/17 17:49 02/18/17 18:12 02/18/17 21:01 02/19/17 05:20 Prothrombin Time 17.4 SECONDS Prothromb Time International Ratio 1.6 Bedside Glucose 105 mg/dl 136 mg/dl Sodium Level 144 mmol/L Potassium Level 4.2 mmol/L Chloride Level 112 mmol/L Carbon Dioxide Level 23 mmol/L Anion Gap 9.0 mmol/L Blood Urea Nitrogen 70 mg/dl Creatinine 5.40 mg/dl Est Creatinine Clear Calc Drug Dose 11.5 ml/min Estimated GFR () 9.4 Estimated GFR (Non- 8.1 BUN/Creatinine Ratio 13.0 Random Glucose 160 mg/dl Calcium Level 8.0 mg/dl Test 02/19/17 05:30 Prothrombin Time 18.2 SECONDS Prothromb Time International Ratio 1.7 Impression (1) Kidney transplant recipient (2) Immunosuppressed status (3) Acute renal insufficiency (4) Pancreatitis (5) Clostridium difficile diarrhea Tia is a 57-year-old female with end-stage renal disease due to autosomal dominant polycystic kidney disease. She developed end-stage renal disease and underwent bilateral [place]-prescott nephrectomies. She has a functioning living related renal transplant that was placed in 2000. Her baseline creatinine is approximately 3.5 milligram/deciliter. No significant history of rejections reported. Patient did develop nephropathy that was attributed to CNI toxicity in the past. She has been maintained on prednisone, cyclosporine as well as sirolimus. Unfortunately she has recurrent infections including C diff colitis, urinary tract infections, and sinusitis. She also has a history of recurrent pancreatitis. She has a history of hypertriglyceridemia. At this time her lipase is mildly elevated in the setting of C diff colitis. She presented with abdominal pain. Recent history is notable for extensive hernia repair at in December. She has acute renal insufficiency. Creatinine of 6.5 mg/dL upon admission improved to 5.4 mg/dL with IVF. She is non-oliguric. Transplant ultrasound reveals an atrophic transplanted kidney in the left lower pelvis with normal resistive indices and a patent transplant artery and vein. Metabolic profile is otherwise appropriate. I suspect there is a continued component of prerenal acute renal failure. There is no current indication for CHIEF DESIGN BRANCH. She would not be a candidate for PD. Tia has a very complicated history of immune dysfunction following transplant. Harvey immunosuppression moving forward is unclear. Due to acute and chronic allograft dysfunction as well as increased lipase, cyclosporine should be held. I have very low degree of suspicion for rejection, notably given the number of years since transplant. She was mildly leukopenic on presentation. I do not have a serum level but we can assume that this would be elevated given her degree of renal insufficiency. Certainly combination therapy with sirolimus and cyclosporine places her at high risk for loss of renal function. This combination needs to be monitored closely and consistently reevaluated. Sirolimus use is complicated by a dyslipidemia ( notably hypertriglyceridemia) and pancreatitis. I would hold sirolimus at this time as well. It should be beneficial to allow her immune system to reconstitute in the setting of infection. In the interim, I will increase prednisone to a more favorable dosing of 5 milligrams daily which may help provide additional adrenal support as well. She has chronic anemia with both iron deficiency and anemia of chronic disease. Hemoglobin is stable at approximately 10.5. I appreciate infectious disease consultation regarding her complicated history of recurrent C diff colitis. Consideration for fecal transplant may be appropriate in the future and the patient states that she has looked into this option previously. The patient is very hopeful to undergo a 2nd kidney transplant which will require control her chronic/recurrent infections. She is maintained on probiotic therapy. Recommendations -- Increase prednisone to 5 mg daily -- Hold cyclosporine and sirolimus -- Continue 0.9% saline + K @ 125 ml/Hr -- Repeat metabolic profile this afternoon -- Document I/O's -- Monitor daily metabolic profile and CBC -- Medications are currently appropriate for current status of renal dysfunction -- Blood pressure appropriate with current dose of carvedilol and amlodipine
[2017-02-19 15:05] VITALS: BP 129/69; PULSE 53; TEMP 36.9; O2SAT 100
--- NOTE | 2017-02-19 15:22 | INFECT. DISEASE CONSULTATION ---
DATE OF CONSULTATION: 02/19/2017 REQUESTING PHYSICIAN: Dr. Holcomb. HISTORY OF PRESENT ILLNESS: This is a 57-year-old female who was admitted secondary to worsening diarrhea. She states that she was diagnosed with C. diff on February 02. She was started on oral vancomycin and tolerated this for the first 5 days of her course, but then noticed that her diarrhea was worsening. She also has poor p.o. intake associated with this. She states years ago she was treated with Dificid and she initially presented to an urgent care center yesterday where she requested Dificid treatment. She states they did not feel comfortable with treating her and suggested that she follow with her front desk team member. She did call the on-call service and it was suggested that she be admitted to the hospital. She came to the ER yesterday and was started on Dificid. She is tolerating this well. She has not had diarrhea today, but is complaining of some abdominal pain which is unusual for her. She also has poor p.o. intake and has not had any breakfast this morning. She denies any fevers or chills. She denies any nausea or vomiting. She denies any bloody diarrhea. All remaining review of systems are reviewed and are unremarkable. PAST MEDICAL HISTORY: Significant for asthma, chronic kidney disease diabetes, hypertension, hyperlipidemia, polycystic kidney transplant. FAMILY HISTORY: Noncontributory. SOCIAL HISTORY: Negative for tobacco use, alcohol use or drug use. ALLERGIES: SHE HAS MULTIPLE ALLERGIES INCLUDING IODINE, STATINS, HYDROCHLOROTHIAZIDE, SULFA, SUMATRIPTAN, TRIAMTERENE, ATORVASTATIN, DOXYCYCLINE, LEVAQUIN, TAPE AND MORPHINE. CURRENT MEDICATIONS: Include amlodipine, multivitamins, Protonix, prednisone, omega oil, tacrolimus, Coreg, Dificid, cyclosporine, Zofran, Mirapex, Effexor and Coumadin. PHYSICAL EXAMINATION: VITAL SIGNS: She is afebrile, pulse 59, respiratory rate 16, blood pressure 114/61, oxygen saturation of 96% on room air. GENERAL: She is awake, alert and oriented x3. She is in no acute distress. HEENT: Mucous membranes are moist. Extraocular muscles are intact. HEART: Regular. LUNGS: Clear bilaterally. ABDOMEN: Distended and there are hypoactive bowel sounds. There is no tenderness to palpation. There is no edema. SKIN: Without rash. LABORATORY STUDIES: CBC reveals a white blood cell count of 4.5, hemoglobin 10.4, platelets are 225. Chemistry panel reveals a sodium of 144, potassium 4.2, chloride 112, bicarbonate 23, BUN 70, creatinine 5.4, glucose is 160. Urinalysis was unremarkable. There is no micro to review. She did have a chest x-ray done in the Emergency Room which had small unchanged pleural effusions and a nonobstructive gas pattern. ASSESSMENT AND PLAN: 1. Clostridium difficile: She can remain on Dificid as she appears to be tolerating this well and having good response. Thank you for this consultation. KANNAN
[2017-02-19] MEDS: WARFARIN SOD 2.5 MG TAB PO SCH (15:27)
[2017-02-19 17:57] LABS: BUN/CREATININE RATIO 13.2 (10-20); CALCIUM 8.4 mg/dl (8.5-10.1); PHOSPHORUS 3.8 mg/dl (2.5-4.9); POTASSIUM 4.5 mmol/L (3.5-5.1)
[2017-02-19 17:58] LABS: CREATININE 4.7 mg/dl (0.60-1.20)
--- NOTE | 2017-02-19 20:14 | GASTROINTESTINAL CONSULTATION ---
DATE OF CONSULTATION: 02/19/2017 REFERRED BY: Dr. Mejia. HISTORY OF PRESENT ILLNESS: I was asked by Dr. Mejia to consult on this woman because of continued diarrhea and resistant C. diff. I reviewed her case, the patient is a 57-year-old who has been treated with outpatient vancomycin, though her symptoms persisted. Dificid has since has been added and she is responding. At this point, there is no role for colonoscopy. She was seen by infectious disease who also concur with current care. I would follow her abdominal exam closely looking for signs of megacolon and continue the Dificid as recommended by infectious disease. Hopefully, she continues to improve, her white blood cell count is currently 4.5 and she has had no fever. I would avoid antibiotics obviously and keep her on probiotics and a lactose free diet until she is significantly better. MTDD
[2017-02-19 21:13] VITALS: BP 132/66; PULSE 65
[2017-02-19] MEDS: IRON COMPLEX POLYSACCHARIDE W/VIT C 150 MG CAP PO SCH (21:18)
[2017-02-19] MEDS: PRAMIPEXOLE DIHYDROCHLORIDE 0.25MG TAB PO SCH (21:19)
[2017-02-19] MEDS: CARVEDILOL 12.5 MG TAB PO SCH (21:19)
[2017-02-19] MEDS: VENLAFAXINE HCL 37.5 MG TAB PO SCH (21:19)
--- NOTE | 2017-02-19 21:51 | Hospitalist Progress Note ---
Hospitalist Progress Note Date of Service February 19, 2017. Subjective Pt evaluation today including: conversation w/ patient Patient reports feeling so much better already as far as her diarrhea goes. She was having constant diarrhea with incontinence and having to wear diapers for the last 2 weeks which is very unusual for her. Her diarrhea she said started when she was in the intensive care unit postop from her hernia repair one month ago. She was started on by mouth vancomycin on February 02 and did get better for a few days, and then worsened again. She continued to just deal with diarrhea at home, but then developed epigastric abdominal pain and came in. Her lipase was somewhat elevated on admission but she declined CT scan at presentation. 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 Afebrile. No other complaints. All Other Systems: Reviewed and Negative Objective Vital Signs Date Time Temp Pulse Resp B/P Pulse Ox O2 Delivery O2 Flow Rate FiO2 02/19/17 15:30 Room Air 02/19/17 15:05 36.9 53 18 129/69 100 Room Air 02/19/17 07:21 36.5 59 16 114/61 96 Room Air 02/19/17 07:15 97 Room Air 02/19/17 00:10 Room Air 02/19/17 00:06 36.7 60 16 131/74 97 Room Air 02/18/17 22:31 65 157/78 Physical Exam General Appearance: WD/WN, no apparent distress Eyes: normal inspection, sclerae normal ENT: hearing grossly normal Neck: trachea midline Respiratory/Chest: lungs clear, normal breath sounds, no respiratory distress, no accessory muscle use Cardiovascular: regular rate, rhythm, no edema, no gallop, no murmur Abdomen: normal bowel sounds, soft, + tenderness (mild in epigastric region without guarding or rebound tenderness), + pertinent finding (multiple incisional scars that are well-healed most recently midline laparotomy scar well -healed) Extremities: non-tender, normal inspection, no calf tenderness, + swelling (1+ pitting edema to the mid tibia bilaterally which is chronic) Neurologic/Psychiatric: alert, normal mood/affect, oriented x 3 Skin: normal color, warm/dry, no rash Laboratory Results Last 24 Hours Test 02/19/17 05:20 02/19/17 05:30 02/19/17 09:52 02/19/17 12:07 Sodium Level 144 mmol/L Potassium Level 4.2 mmol/L Chloride Level 112 mmol/L Carbon Dioxide Level 23 mmol/L Anion Gap 9.0 mmol/L Blood Urea Nitrogen 70 mg/dl Creatinine 5.40 mg/dl Est Creatinine Clear Calc Drug Dose 11.5 ml/min Estimated GFR () 9.4 Estimated GFR (Non- 8.1 BUN/Creatinine Ratio 13.0 Random Glucose 160 mg/dl Calcium Level 8.0 mg/dl Lipase 445 U/L Prothrombin Time 18.2 SECONDS Prothromb Time International Ratio 1.7 Bedside Glucose 126 mg/dl 134 mg/dl Test 02/19/17 17:16 Sodium Level 144 mmol/L Potassium Level 4.5 mmol/L Chloride Level 114 mmol/L Carbon Dioxide Level 21 mmol/L Anion Gap 9.0 mmol/L Blood Urea Nitrogen 62 mg/dl Creatinine 4.70 mg/dl Est Creatinine Clear Calc Drug Dose 13.2 ml/min Estimated GFR () 11.1 Estimated GFR (Non- 9.6 BUN/Creatinine Ratio 13.2 Random Glucose 122 mg/dl Calcium Level 8.4 mg/dl Phosphorus Level 3.8 mg/dl Albumin 2.7 gm/dl Assessment and Plan 57 y/o F with a history of renal transplant and bilateral nephrectomy for PCKD, multiple episodes of acute pancreatitis, small bowel obstruction with bowel resection/ileostomy/reversal of ileostomy/ventral hernia repair that is recent, now with who was admitted on 02/18 for resistant cdiff colitis and acute kidney injury in the setting of CKD stage 4-5 Cdiff colitis: Not responsive to by mouth vanco with hx of same, pt with n/v and severe diarrhea-much improved now after 1 day of Dificid Will not send stool for cdiff given recent + and unlikely to be changed Continue IVF Probiotics--pt has probiotic from home that is safe in transplant pt, to bring in -Consider fecal transplant -Appreciate GI consultation-patient interested in evaluation for fecal transplant ? Acute pancreatitis: Epigastric TTP with mildly elevated lipase, lipase slightly improved today. Afebrile, no signs of necrotizing pancreatitis or sepsis Pt declines CT AP Pt will be NPO with IVF and will monitor Pt is aware that if condition does not improve with change in medication that we may need to proceed with CT Acute on chronic renal failure/history of PCKD/history of renal transplant and bilateral nephrectomy: Baseline cr is 3.7 with hx of renal transplant. Of note , review of the [facility] discharge summary reveals that postoperatively from her ventral hernia repair last month that she required hemodialysis for 3 days in the setting of postop sepsis leading to acute kidney injury. Now at 6.5 in the setting of diarrhea, n/v, decreased PO intake, and dehydration, likely prerenal in nature. Renal ultrasound is normal. -Creatinine reduced down to 4.7 this afternoon on repeat testing, no evidence of hyperkalemia or acidosis -Appreciate nephrology consultation-recommends holding cyclosporine and sirolimus and increasing prednisone dose for now in the setting of infection Follows with Dr. Roy primarily -follow PRP Paroxysmal Afib: This was a new diagnosis in the postoperative period when she was in the intensive care unit at [place] in December 2016. She went back into a sinus rhythm and is regular on exam here. INR is subtherapeutic Current warfarin dose is 2.5mg QD, but has been changing frequently recently due to abx use-we'll give an extra 1 mg dose today Monitor PT/INR DM: Holding home levemir while NPO SSI PRN HTN: stable, continue home meds Other: Full code Warfarin for DVT proph NPO with IVF
[2017-02-19] MEDS ORDERED: WARFARIN SOD 1 MG TAB PO ONE (22:00)
[2017-02-19 23:08] VITALS: BP 150/66; PULSE 59; TEMP 36.9; O2SAT 93
[2017-02-20] MEDS: INSULIN ASPART 100 UNITS/ML 3 ML PEN SC SCH ×4 (00:30→17:56)
[2017-02-20 06:03] LABS: BASO % 0.3 %; BASO ABS # 0.01 K/uL (0-0.2); COMPLETE YES; EOS % 8.7 %; HEMATOCRIT 29.9 % (37-47); LYMPH % 17.2 %; LYMPH ABS # 0.63 K/uL (1.2-3.4); MEAN CELL VOLUME 90.1 fL (80-100); MEAN CORPUSCULAR HEMOGLOBIN 27.1 pg (25-34); MEAN CORPUSCULAR HGB CONC 30.1 g/dl (32-36); MONO % 18.3 %; NEUT % 55.5 %; PLATELET COUNT 208 K/uL (130-400); RED BLOOD COUNT 3.32 M/uL (4.2-5.4); WHITE BLOOD COUNT 3.67 K/uL (4.8-10.8)
[2017-02-20 06:15] LABS: PROTHROMBIN TIME (PATIENT) 21.5 SECONDS (9.0-12.0)
[2017-02-20 06:35] LABS: BUN/CREATININE RATIO 12.7 (10-20); CALCIUM 8.4 mg/dl (8.5-10.1); CREATININE 4.3 mg/dl (0.60-1.20); POTASSIUM 4.7 mmol/L (3.5-5.1)
[2017-02-20 07:29] LABS: ESTIMATED AVERAGE GLUCOSE 120 mg/dl; HA1C FLAG Normal (Normal)
[2017-02-20 07:31] VITALS: BP 156/74; PULSE 72; TEMP 37.1; O2SAT 97
[2017-02-20] MEDS: D5NSS + 20MEQ KCL 1,000 ML IV SCH (07:41)
[2017-02-20] MEDS: ONDANSETRON INJ 2 MG/ML 2 ML VIAL IV PRN (07:54)
[2017-02-20] MEDS ORDERED: ESTROGENS, CONJUGATED 0.625 MG TAB PO SCH (09:00)
[2017-02-20] MEDS: OMEGA-3 (PURIFIED FISH OIL) 1 GM CAP PO SCH ×2 (09:00→09:13)
[2017-02-20] MEDS: MULTIVITAMIN TAB PO SCH (09:11)
[2017-02-20] MEDS: CARVEDILOL 3.125 MG TAB PO SCH (09:11)
[2017-02-20] MEDS: AMLODIPINE BESYLATE 5 MG TAB PO SCH (09:11)
[2017-02-20] MEDS: PANTOprazole SOD 40 MG TAB PO SCH (09:12)
[2017-02-20] MEDS: [UNRECOGNIZED DRUG - OTHER] PO SCH (09:16)
--- NOTE | 2017-02-20 09:57 | Nephrology Progress Note ---
Nephrology Progress Note Date of Service February 20, 2017. Chief Complaint MARCIO, kidney transplant Subjective No acute events overnight. Unfortunately, no significant improvement in symptoms. Tia states that her stool remains very watery. She had 5 bowel movements yesterday. She is having some incontinence. She is also experiencing cramping upper quadrant pain and discomfort. She has tenderness along the upper aspect of the midline abdominal incision. She has no appetite. She vomited a small amount after taking a sip of orange juice this morning. She denies fevers or chills. Review of Systems A complete review of systems was performed. Pertinent positives are noted above. All other systems are negative. Vital Signs Last 8 Hrs Date Time Temp Pulse Resp B/P Pulse Ox O2 Delivery O2 Flow Rate FiO2 02/20/17 07:31 37.1 72 19 156/74 97 Room Air I & O 24-Hour Column 02/20/17 08:00 Intake Total 2846 ml Output Total 2750 ml Balance 96 ml Last Recorded Weight Weight (Kilograms): 71.500 Physical Exam General Appearance: WD/WN, no apparent distress Head: normocephalic, atraumatic Eyes: normal inspection, sclerae normal ENT: normal ENT inspection, pharynx normal Neck: supple, no JVD Respiratory/Chest: lungs clear, no respiratory distress, no accessory muscle use Cardiovascular: regular rate, rhythm, no gallop Abdomen/GI: normal bowel sounds, soft, + tenderness (mild upper quadrant R>L), + hernia Extremities/Musculoskelatal: normal inspection, no pedal edema Neurologic/Psych: alert, oriented x 3 Family History Kidney disease Kidney stones Social History Smoking Status: Never smoker Alcohol Use: none Drug Use: none Marital Status: Housing Status: lives with family Occupation: employed Laboratory Results Past 24 Hours 02/20/17 05:40 Red Blood Count 3.32, Mean Corpuscular Volume 90.1, Mean Corpuscular Hemoglobin 27.1, Mean Corpuscular Hemoglobin Concent 30.1, Mean Platelet Volume 9.0, Neutrophils (%) (Auto) 55.5, Lymphocytes (%) (Auto) 17.2, Monocytes (%) (Auto) 18.3, Eosinophils (%) (Auto) 8.7, Basophils (%) (Auto) 0.3, Neutrophils # (Auto ) 2.04, Lymphocytes # (Auto) 0.63, Monocytes # (Auto) 0.67, Eosinophils # (Auto ) 0.32, Basophils # (Auto) 0.01 02/19/17 17:16 02/20/17 05:40 Test 02/19/17 09:52 02/19/17 12:07 02/19/17 17:16 02/19/17 23:59 Bedside Glucose 126 mg/dl (70-90) 134 mg/dl (70-90) 121 mg/dl (70-90) Anion Gap 9.0 mmol/L (3-11) Est Creatinine Clear Calc Drug Dose 13.2 ml/min Estimated GFR () 11.1 Estimated GFR (Non- 9.6 BUN/Creatinine Ratio 13.2 (10-20) Calcium Level 8.4 mg/dl (8.5-10.1) Phosphorus Level 3.8 mg/dl (2.5-4.9) Albumin 2.7 gm/dl (3.4-5.0) Test 02/20/17 05:40 White Blood Count 3.67 K/uL (4.8-10.8) Red Blood Count 3.32 M/uL (4.2-5.4) Hemoglobin 9.0 g/dL (12.0-16.0) Hematocrit 29.9 % (37-47) Mean Corpuscular Volume 90.1 fL (80-100) Mean Corpuscular Hemoglobin 27.1 pg (25-34) Mean Corpuscular Hemoglobin Concent 30.1 g/dl (32-36) Platelet Count 208 K/uL (130-400) Mean Platelet Volume 9.0 fL (7.4-10.4) Neutrophils (%) (Auto) 55.5 % Lymphocytes (%) (Auto) 17.2 % Monocytes (%) (Auto) 18.3 % Eosinophils (%) (Auto) 8.7 % Basophils (%) (Auto) 0.3 % Neutrophils # (Auto) 2.04 K/uL (1.4-6.5) Lymphocytes # (Auto) 0.63 K/uL (1.2-3.4) Monocytes # (Auto) 0.67 K/uL (0.11-0.59) Eosinophils # (Auto) 0.32 K/uL (0-0.5) Basophils # (Auto) 0.01 K/uL (0-0.2) RDW Standard Deviation 61.4 fL (36.4-46.3) RDW Coefficient of Variation 18.5 % (11.5-14.5) Immature Granulocyte % (Auto) 0.0 % Immature Granulocyte # (Auto) 0.00 K/uL (0.00-0.02) Prothrombin Time 21.5 SECONDS (9.0-12.0) Prothromb Time International Ratio 2.0 (0.9-1.1) Anion Gap 10.0 mmol/L (3-11) Est Creatinine Clear Calc Drug Dose 14.4 ml/min Estimated GFR () 12.3 Estimated GFR (Non- 10.6 BUN/Creatinine Ratio 12.7 (10-20) Calcium Level 8.4 mg/dl (8.5-10.1) Allergies Coded Allergies: Iodinated Diagnostic Agents (Verified Allergy, Severe, Hx Kidney Transplant, 02/18/17) Statins (Verified Allergy, Severe, "PANCREATITIS", 02/18/17) Hydrochlorothiazide (Verified Allergy, Mild, 02/18/17) Sulfa Antibiotics (Verified Allergy, Mild, ., 02/18/17) Sumatriptan (Verified Allergy, Mild, 02/18/17) Triamterene (Verified Allergy, Mild, 02/18/17) Atorvastatin (Verified Allergy, Unknown, ?, 02/18/17) Doxycycline (Verified Allergy, Unknown, UNKNOWN, 02/18/17) Levofloxacin (Verified Allergy, Unknown, joint pain, 02/18/17) Adhesives (Verified Adverse Reaction, Unknown, SKIN TEAR, 02/18/17) Ciprofloxacin (Verified Adverse Reaction, Unknown, FATIGUE, 02/18/17) Morphine (Verified Adverse Reaction, Unknown, INEFFECTIVE, 02/18/17) Medications Current Inpatient Medications Medications (Trade) Dose Ordered Sig/Dominique Route Start Time Stop Time Status Last Admin Dose Admin Acetaminophen (Tylenol Tab) 650 mg Q4H PRN PO 02/18/17 15:30 03/20/17 15:29 Magnesium Hydroxide (Milk Of Magnesia Susp) 30 ml Q6H PRN PO 02/18/17 15:30 03/20/17 15:29 Ondansetron HCl (Zofran Inj) 4 mg Q6H PRN IV 02/18/17 15:30 03/20/17 15:29 02/20/17 07:54 4 MG Glucose (Glucose 40% Gel) 15-30 GRAMS 15 GRAMS... UD PRN PO 02/18/17 15:30 03/20/17 15:29 Glucose (Glucose Chew Tab) 4-8 Tablets 4 Tabl... UD PRN PO 02/18/17 15:30 03/20/17 15:29 Dextrose (Dextrose 50% 50ML Syringe) 25-50ML OF 50% DW IV FOR... UD PRN IV 02/18/17 15:30 03/20/17 15:29 Glucagon (Glucagon Inj) 1 mg UD PRN SQ 02/18/17 15:30 03/20/17 15:29 Hydromorphone HCl (Dilaudid Inj) 0.5 mg Q4H PRN IV 02/18/17 15:30 03/04/17 15:29 02/19/17 22:58 0.5 MG Fidaxomicin 200 mg 200 mg BID PO 02/18/17 21:00 03/04/17 20:59 02/19/17 21:19 200 MG Potassium Chloride/Dextrose/ Sod Cl (D5nss + 20meq KCl) 1,000 ml @ 125 mls/hr Q8H IV 02/18/17 15:30 03/20/17 15:29 02/20/17 07:41 125 MLS/HR Amlodipine Besylate (Norvasc Tab) 5 mg DAILY PO 02/19/17 09:00 03/21/17 08:59 02/20/17 09:11 5 MG Cyclosporine (Sandimmune Cap) 75 mg BID PO 02/18/17 21:00 03/20/17 20:59 Future Hold 02/18/17 20:56 75 MG Multivitamins (Multivitamin Tab) 1 tab QAM PO 02/19/17 09:00 03/21/17 08:59 02/20/17 09:11 1 TAB Ondansetron HCl (Zofran Tab) 4 mg BID PRN PO 02/18/17 21:00 03/20/17 20:59 02/20/17 09:11 4 MG Pantoprazole Sodium (Protonix Tab) 40 mg DAILY PO 02/19/17 09:00 03/21/17 08:59 02/20/17 09:12 40 MG Polysaccharide Iron Complex (Niferex-150 w/ Vit C Cap) 150 mg QPM PO 02/18/17 21:00 03/20/17 20:59 02/19/17 21:18 150 MG Pramipexole Dihydrochloride (miraPEX TAB) 0.125 mg HS PO 02/18/17 21:00 03/20/17 20:59 02/19/17 21:19 0.125 MG Venlafaxine HCl (effeXOR TAB) 37.5 mg HS PO 02/18/17 21:00 03/20/17 20:59 02/19/17 21:19 37.5 MG Warfarin Sodium (Coumadin Tab) 2.5 mg DAILY@1600 PO 02/18/17 20:00 03/20/17 19:59 02/19/17 15:27 2.5 MG Fish Oil ([place]-3 (Purified Fish Oil) Cap) 2 gm DAILY PO 02/19/17 09:00 03/21/17 08:59 Miscellaneous Information (Order Awaiting Action) 1 ea QS N/A 02/19/17 00:00 03/21/17 00:00 Sirolimus (Rapamune) 1 mg DAILY PO 02/19/17 09:00 03/21/17 08:59 Future Hold Non-Formulary Medication (Non-Formulary Patient'S Own Med) 1 ea DAILY PO 02/19/17 09:00 03/21/17 08:59 02/20/17 09:16 1 EA Carvedilol (Coreg Tab) 12.5 mg HS PO 02/18/17 22:00 03/20/17 21:59 02/19/17 21:19 12.5 MG Carvedilol (Coreg Tab) 3.125 mg QAM PO 02/19/17 09:00 03/21/17 08:59 02/20/17 09:11 3.125 MG Prednisone (PredniSONE TAB) 5 mg QAM PO 02/20/17 09:00 03/22/17 08:59 02/20/17 09:12 5 MG Estrogens Conjugated (Premarin Tab) 0.625 mg MoTh@0900 PO 02/20/17 09:00 03/22/17 08:59 02/20/17 09:13 0.625 MG Insulin Aspart (novoLOG ASPART) SLIDING SCALE If C... Q6 SC 02/19/17 18:00 03/21/17 17:59 Impression (1) Kidney transplant recipient (2) Immunosuppressed status (3) Acute renal insufficiency (4) Pancreatitis (5) Clostridium difficile diarrhea Tia is a 57-year-old female with end-stage renal disease due to autosomal dominant polycystic kidney disease. She has a LRKTx with a baseline creatinine of approximately 3.5 milligram/deciliter. There is a reported history of CNI toxicity in the past. Maintenance immunosuppression includes prednisone, cyclosporine as well as sirolimus. Tia was admitted with persistent C diff colitis. She has acute renal insufficiency. Creatinine of 6.5 mg/dL upon admission improved to 4.3 mg/dL with IVF. She remains non-oliguric. Oral intake is poor and diarrhea persists. Laboratory studies this morning notable for increasing free water deficit and hyperchloremic metabolic acidosis. I will switch IVF to 1/2NS+75 mEq and repeat a metabolic profile again this afternoon. Transplant ultrasound reveals an atrophic transplanted kidney in the left lower pelvis with normal resistive indices and a patent transplant artery and vein. Metabolic profile is otherwise appropriate. I suspect there is a continued component of prerenal acute renal failure. There is no current indication for DINING CHAIR SEAT CUSHION TRIMMER. She would not be a candidate for PD. She has chronic anemia with both iron deficiency and anemia of chronic disease. Hemoglobin dropped slightly overnight. Recommendations -- Continue prednisone to 5 mg daily -- Continue to hold cyclosporine and sirolimus -- Switch 0.9% saline to 1/2NS+75 mEq NaHCO3 -- Repeat metabolic profile this afternoon -- Document I/O's -- Monitor daily metabolic profile and CBC -- Epogen [id number] units SQ today -- Medications are currently appropriate for current renal function -- Blood pressure appropriate with current dose of carvedilol and amlodipine
[2017-02-20] MEDS ORDERED: SODIUM BICARBONATE 8.4% INJ 50 MEQ in SODIUM CHLORIDE 0.45% 1000ML 1,000 ML IV SCH (10:00)
[2017-02-20] MEDS: FIDAXOMICIN TAB 200 MG TAB PO SCH ×2 (10:03→21:16)
[2017-02-20] MEDS: SODIUM BICARBONATE 8.4% INJ 75 MEQ in SODIUM CHLORIDE 0.45% 1000ML 1,000 ML IV SCH ×2 (10:13→21:16)
[2017-02-20] MEDS: HYDROmorphone INJ 1 MG/ML SYR IV PRN ×2 (10:14→15:07)
[2017-02-20] MEDS ORDERED: EPOETIN ALFA 20,000 UNITS/ML VIAL SQ SCH (10:30)
[2017-02-20 15:04] VITALS: BP 133/69; PULSE 70; TEMP 37.2; O2SAT 95
--- NOTE | 2017-02-20 16:20 | Progress Note ---
Subjective Date of Service: February 20, 2017. Subjective Pt evaluation today including: conversation w/ patient, conversation w/ family (), physical exam, lab review, conversation w/ beverage sales consultant, review of inpatient medication list Pain: severe pain, required Dilaudid PO Intake: NPO Voiding: no voiding problems still with diarrhea, 5x over night, green, mucous, no blood no vomiting, still with abdominal pain asked to stop non-essential medications, done d/w elan Castro plans for bicarb fluids to treat acidosis will defer immunosuppressive therapy to Dr. Roy tomorrow Problem List Medical Problems: (1) Abdominal pain Status: Acute (2) Acute on chronic renal failure Status: Acute (3) Dehydration Status: Acute (4) Elevated lipase Status: Acute (5) Fever Status: Acute (6) History of small bowel obstruction Status: Acute (7) Immunocompromised Status: Acute (8) Kidney Transplant Status Status: Acute (9) Malaise and fatigue Status: Acute (10) Renal failure Status: Acute (11) Right upper quadrant abdominal pain Status: Acute (12) Right upper quadrant abdominal pain Status: Acute (13) Sepsis Status: Acute (14) Small bowel obstruction Status: Acute (15) UTI (urinary tract infection) Status: Acute (16) Vomiting Status: Acute Social History Problems: (1) History of renal transplant Status: Acute Review of Systems Constitutional: + fatigue, + weakness Abdomen: + diarrhea, + pain All Other Systems: Reviewed and Negative Medications Current Inpatient Medications Medications (Trade) Dose Ordered Sig/Dominique Route Start Time Stop Time Status Last Admin Dose Admin Acetaminophen (Tylenol Tab) 650 mg Q4H PRN PO 02/18/17 15:30 03/20/17 15:29 Magnesium Hydroxide (Milk Of Magnesia Susp) 30 ml Q6H PRN PO 02/18/17 15:30 03/20/17 15:29 Ondansetron HCl (Zofran Inj) 4 mg Q6H PRN IV 02/18/17 15:30 03/20/17 15:29 02/20/17 07:54 4 MG Glucose (Glucose 40% Gel) 15-30 GRAMS 15 GRAMS... UD PRN PO 02/18/17 15:30 03/20/17 15:29 Glucose (Glucose Chew Tab) 4-8 Tablets 4 Tabl... UD PRN PO 02/18/17 15:30 03/20/17 15:29 Dextrose (Dextrose 50% 50ML Syringe) 25-50ML OF 50% DW IV FOR... UD PRN IV 02/18/17 15:30 03/20/17 15:29 Glucagon (Glucagon Inj) 1 mg UD PRN SQ 02/18/17 15:30 03/20/17 15:29 Hydromorphone HCl (Dilaudid Inj) 0.5 mg Q4H PRN IV 02/18/17 15:30 03/04/17 15:29 02/20/17 15:07 0.5 MG Fidaxomicin (Dificid Tab) 200 mg BID PO 02/18/17 21:00 03/04/17 20:59 02/20/17 10:03 200 MG Amlodipine Besylate (Norvasc Tab) 5 mg DAILY PO 02/19/17 09:00 03/21/17 08:59 02/20/17 09:11 5 MG Cyclosporine (Sandimmune Cap) 75 mg BID PO 02/18/17 21:00 03/20/17 20:59 Future Hold 02/18/17 20:56 75 MG Ondansetron HCl (Zofran Tab) 4 mg BID PRN PO 02/18/17 21:00 03/20/17 20:59 02/20/17 09:11 4 MG Pantoprazole Sodium (Protonix Tab) 40 mg DAILY PO 02/19/17 09:00 03/21/17 08:59 02/20/17 09:12 40 MG Pramipexole Dihydrochloride (miraPEX TAB) 0.125 mg HS PO 02/18/17 21:00 03/20/17 20:59 02/19/17 21:19 0.125 MG Venlafaxine HCl (effeXOR TAB) 37.5 mg HS PO 02/18/17 21:00 03/20/17 20:59 02/19/17 21:19 37.5 MG Warfarin Sodium (Coumadin Tab) 2.5 mg DAILY@1600 PO 02/18/17 20:00 03/20/17 19:59 02/19/17 15:27 2.5 MG Miscellaneous Information (Order Awaiting Action) 1 ea QS N/A 02/19/17 00:00 03/21/17 00:00 Sirolimus (Rapamune) 1 mg DAILY PO 02/19/17 09:00 03/21/17 08:59 Future Hold Non-Formulary Medication (Non-Formulary Patient'S Own Med) 1 ea DAILY PO 02/19/17 09:00 03/21/17 08:59 02/20/17 09:16 1 EA Carvedilol (Coreg Tab) 12.5 mg HS PO 02/18/17 22:00 03/20/17 21:59 02/19/17 21:19 12.5 MG Carvedilol (Coreg Tab) 3.125 mg QAM PO 02/19/17 09:00 03/21/17 08:59 02/20/17 09:11 3.125 MG Prednisone (PredniSONE TAB) 5 mg QAM PO 02/20/17 09:00 03/22/17 08:59 02/20/17 09:12 5 MG Insulin Aspart SLIDING SCALE If C... Q6 SC 02/19/17 18:00 03/21/17 17:59 Sodium Bicarbonate/ Sodium Chloride (Sodium Bicarbonate 8.4% Inj/1/2 Nss 1000ml) 1,075 ml @ 100 mls/hr [id number] IV 02/20/17 10:00 03/22/17 09:59 02/20/17 10:13 100 MLS/HR Epoetin Kvng (Procrit Inj) 20,000 units TODAY@1030 SQ 02/20/17 10:30 02/20/17 23:59 02/20/17 10:57 20,000 UNITS Cholestyramine Resin (Questran Powder Light) 4 gm BID@10,22 PO 02/20/17 22:00 03/22/17 21:59 Objective Vital Signs Date Time Temp Pulse Resp B/P Pulse Ox O2 Delivery O2 Flow Rate FiO2 02/20/17 15:04 37.2 70 18 133/69 95 Room Air 02/20/17 07:40 Room Air 02/20/17 07:31 37.1 72 19 156/74 97 Room Air 02/19/17 23:25 Room Air 02/19/17 23:08 36.9 59 18 150/66 93 Room Air 02/19/17 21:13 65 132/66 Physical Exam General Appearance: WD/WN, no apparent distress Eyes: normal inspection, EOMI, sclerae normal Neck: supple, no adenopathy, no JVD, trachea midline Respiratory/Chest: chest non-tender, lungs clear, normal breath sounds, no respiratory distress, no accessory muscle use Cardiovascular: regular rate, rhythm, no edema, no gallop, no JVD, no murmur Abdomen: normal bowel sounds, soft, no organomegaly, + tenderness (diffuse) Extremities: normal range of motion, non-tender, normal inspection, no pedal edema, no calf tenderness Neurologic/Psychiatric: diagnostic assistant II-XII nml as tested, no motor/sensory deficits, alert, normal mood/affect, oriented x 3 Skin: normal color, warm/dry, no rash Laboratory Results Last 24 Hours Test 02/19/17 17:16 02/19/17 23:59 02/20/17 05:40 02/20/17 11:49 Sodium Level 144 mmol/L 148 mmol/L Potassium Level 4.5 mmol/L 4.7 mmol/L Chloride Level 114 mmol/L 119 mmol/L Carbon Dioxide Level 21 mmol/L 19 mmol/L Anion Gap 9.0 mmol/L 10.0 mmol/L Blood Urea Nitrogen 62 mg/dl 55 mg/dl Creatinine 4.70 mg/dl 4.30 mg/dl Est Creatinine Clear Calc Drug Dose 13.2 ml/min 14.4 ml/min Estimated GFR () 11.1 12.3 Estimated GFR (Non- 9.6 10.6 BUN/Creatinine Ratio 13.2 12.7 Random Glucose 122 mg/dl 120 mg/dl Calcium Level 8.4 mg/dl 8.4 mg/dl Phosphorus Level 3.8 mg/dl Albumin 2.7 gm/dl Bedside Glucose 121 mg/dl 108 mg/dl White Blood Count 3.67 K/uL Red Blood Count 3.32 M/uL Hemoglobin 9.0 g/dL Hematocrit 29.9 % Mean Corpuscular Volume 90.1 fL Mean Corpuscular Hemoglobin 27.1 pg Mean Corpuscular Hemoglobin Concent 30.1 g/dl Platelet Count 208 K/uL Mean Platelet Volume 9.0 fL Neutrophils (%) (Auto) 55.5 % Lymphocytes (%) (Auto) 17.2 % Monocytes (%) (Auto) 18.3 % Eosinophils (%) (Auto) 8.7 % Basophils (%) (Auto) 0.3 % Neutrophils # (Auto) 2.04 K/uL Lymphocytes # (Auto) 0.63 K/uL Monocytes # (Auto) 0.67 K/uL Eosinophils # (Auto) 0.32 K/uL Basophils # (Auto) 0.01 K/uL RDW Standard Deviation 61.4 fL RDW Coefficient of Variation 18.5 % Immature Granulocyte % (Auto) 0.0 % Immature Granulocyte # (Auto) 0.00 K/uL Prothrombin Time 21.5 SECONDS Prothromb Time International Ratio 2.0 Assessment and Plan 57 y/o F with a history of renal transplant and bilateral nephrectomy for PCKD, multiple episodes of acute pancreatitis, small bowel obstruction with bowel resection/ileostomy/reversal of ileostomy/ventral hernia repair that is recent, now with who was admitted on 02/18 for resistant cdiff colitis and acute kidney injury in the setting of CKD stage 4-5 Cdiff colitis: failed outpatient Vancomycin PO, started on Dificid on admission , seems to be responding well but still with diarrhea will try Questran to bulk up stools Continue IVF Probiotics--pt has probiotic from home that is safe in transplant pt, to bring in ? Acute pancreatitis: Epigastric TTP with mildly elevated lipase, lipase slightly improved today. Afebrile, no signs of necrotizing pancreatitis or sepsis doubt that this is pancreatitis, could be pain in the colon from the infection her lipase never reached 1200 which is > 3x ULN for out lab continue NPO with IVF and will monitor Acute on chronic renal failure/history of PCKD/history of renal transplant and bilateral nephrectomy: Baseline cr is 3.7 with hx of renal transplant. Now at 6.5 in the setting of diarrhea, n/v, decreased PO intake, and dehydration, likely prerenal in nature. Renal ultrasound is normal. Cr down to 4.2, trending down, d/w Dr. Franks mild acidosis today, non-gapped, due to diarrhea, NaHCO3 started today -Appreciate nephrology consultation-recommends holding cyclosporine and sirolimus and increasing prednisone dose for now in the setting of infection Follows with Dr. Roy primarily, he will see tomorrow Paroxysmal Afib: This was a new diagnosis in the postoperative period when she was in the intensive care unit at [place] in December 2016. She went back into a sinus rhythm and is regular on exam here. INR is subtherapeutic INR 2.0 today DM: Holding home levemir while NPO SSI PRN HTN: stable, continue home meds Other: Full code Warfarin for DVT proph NPO with IVF
[2017-02-20] MEDS: WARFARIN SOD 2.5 MG TAB PO SCH (16:22)
[2017-02-20] MEDS ORDERED: HYDROmorphone INJ 1 MG/ML SYR IV PRN (17:00)
[2017-02-20 17:41] LABS: BUN/CREATININE RATIO 12.3 (10-20); CALCIUM 8.7 mg/dl (8.5-10.1); CREATININE 3.9 mg/dl (0.60-1.20); POTASSIUM 5.3 mmol/L (3.5-5.1)
[2017-02-20] MEDS ORDERED: HYDROmorphone INJ 1 MG/ML SYR ONE (18:06)
[2017-02-20 21:15] VITALS: BP 158/69; PULSE 67
[2017-02-20] MEDS: PRAMIPEXOLE DIHYDROCHLORIDE 0.25MG TAB PO SCH (21:16)
[2017-02-20] MEDS: CARVEDILOL 12.5 MG TAB PO SCH (21:16)
[2017-02-20] MEDS: VENLAFAXINE HCL 37.5 MG TAB PO SCH (21:16)
[2017-02-20] MEDS: ACETAMINOPHEN 325 MG TAB PO PRN (21:22)
[2017-02-20] MEDS: CHOLESTYRAMINE LIGHT 4 GM PKT PO SCH (22:25)
[2017-02-20 23:26] VITALS: BP 130/70; PULSE 69; TEMP 36.9; O2SAT 97
[2017-02-21] MEDS: INSULIN ASPART 100 UNITS/ML 3 ML PEN SC SCH ×6 (00:24→21:44)
[2017-02-21] MEDS: ACETAMINOPHEN 325 MG TAB PO PRN ×2 (03:52→08:13)
[2017-02-21] MEDS: HYDROmorphone INJ 1 MG/ML SYR IV PRN ×3 (03:53→19:30)
[2017-02-21 07:11] VITALS: BP 158/78; PULSE 63; TEMP 36.6; O2SAT 98
[2017-02-21] MEDS: SODIUM BICARBONATE 8.4% INJ 75 MEQ in SODIUM CHLORIDE 0.45% 1000ML 1,000 ML IV SCH (07:16)
[2017-02-21 07:25] LABS: INR 2.7 (0.9-1.1); PROTHROMBIN TIME (PATIENT) 29.8 SECONDS (9.0-12.0)
[2017-02-21 07:53] LABS: BUN/CREATININE RATIO 12.2 (10-20); CALCIUM 8.4 mg/dl (8.5-10.1); CREATININE 3.6 mg/dl (0.60-1.20); POTASSIUM 4.3 mmol/L (3.5-5.1)
[2017-02-21] MEDS: AMLODIPINE BESYLATE 5 MG TAB PO SCH (08:09)
[2017-02-21] MEDS: PANTOprazole SOD 40 MG TAB PO SCH (08:11)
[2017-02-21] MEDS: CARVEDILOL 3.125 MG TAB PO SCH (08:11)
[2017-02-21] MEDS: FIDAXOMICIN TAB 200 MG TAB PO SCH ×2 (08:12→21:24)
[2017-02-21] MEDS: [UNRECOGNIZED DRUG - OTHER] PO SCH (08:21)
[2017-02-21] MEDS: SIROLIMUS 1 MG PO SCH (10:07)
[2017-02-21] MEDS: CycloSPORINE (SANDIMMUNE) 25 MG CAP PO SCH ×2 (10:07→21:28)
[2017-02-21] MEDS: CHOLESTYRAMINE LIGHT 4 GM PKT PO SCH ×2 (10:12→21:34)
--- NOTE | 2017-02-21 10:26 | NEPHROLOGY PROGRESS NOTE ---
DATE: 02/21/2017 DATE: 02/21/2017. SUBJECTIVE: Mrs. Bowling says that she is feeling somewhat better today. She has no abdominal pain. She continues to have frequent loose stools. By her account she has had 4 bowel movements since midnight. She says that these are of large volume but do not contain blood. Symptoms of nausea seemed to have subsided. She says that she is hungry. She has a headache which she calls a "migraine". She said usually this gets worse when she is not eating for a period of time. She said that the onset of this current bout of Clostridium difficile began during her hospitalization at [facility] in December. She said that she told the nurses there about her concern that this had redeveloped but that she was "ignored". She has been getting treatment since about February 01, initially on vancomycin and then on Dificid since her arrival here. 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 She is now interested in pursuing the idea of a fecal transplant. OBJECTIVE: GENERAL: On physical exam when seen by me, Mrs. Bowling appeared to be at about her baseline. VITAL SIGNS: Her blood pressure was 158/78 with a pulse of 63 and regular, respiratory rate 17, her pulse ox 95-98% on room air. She is afebrile. SKIN: Shows normal skin turgor. She has no rash or infiltrative skin disease. She has scars from prior surgical procedures including a recent abdominal scar from the repair of a large ventral hernia. She has a right lower quadrant scar from her kidney transplant. There is no palpable lymphadenopathy. HEAD: Normal. EYES: Grossly normal. The ocular fundi were not examined. She has no conjunctival icterus. EARS, NOSE, MOUTH AND THROAT: All unremarkable. Her oral mucous membranes are moist. NECK: Supple. There is no jugular venous distention, carotid bruit or thyromegaly. CHEST: Clear to auscultation. CARDIAC EXAMINATION: Shows a regular rhythm. S1 and S2 are normal. ABDOMEN: Firm, but nontender. There is no organomegaly or mass. Bowel sounds are present. They do not seem to be on all hyperactive. EXTREMITIES: Show no cyanosis, clubbing or peripheral edema. Peripheral pulses are intact. NEUROLOGIC EXAMINATION: Shows no lateralizing changes. Her intake and output numbers are not consistent with the IVs that are recorded under the orders. LABORATORY DATA: Laboratory work from today shows a sodium of 143 mmol/L, potassium 4.3 mmol/L, chloride 113 mmol/L, and CO2 content 23 mmol/L. Her BUN is 44 and her creatinine 3.60. A random blood sugar is 104. Her serum calcium is 8.4, her albumin on admission was 2.9. ASSESSMENT: Mrs. Bowling appears to be improving, but continues to have a significant amount of diarrhea at least according to her. With appropriate hydration, her renal function is now approaching its baseline. RECOMMENDATIONS: Continue to maintain hydration. Continue with Dificid. Infectious disease and GI are following. I would resume her cyclosporine and Sirolimus. After her discharge, we can pursue the idea of fecal transplant with the consultation and approval of others involved in her care, most notably her transplant service at [facility].
[2017-02-21] MEDS ORDERED: NURSING VERBAL MED ORDER ONE (12:00)
[2017-02-21] MEDS ORDERED: RIZATRIPTAN BENZOATE 10 MG TAB PO PRN (12:00)
[2017-02-21 12:15] LABS: FERRITIN 186.6 ng/ml (8.0-388.0)
--- NOTE | 2017-02-21 13:45 | Progress Note ---
Subjective Date of Service: February 21, 2017. Subjective Pt evaluation today including: conversation w/ patient, physical exam, lab review, conversation w/ dairy nutrition consultant, review of inpatient medication list Pain: less abdominal pain today PO Intake: trying to eat more today Voiding: no voiding problems reviewed lab work and reviewed note from Dr. Kirill Randall down to 3.6 which is baseline, acidosis resolved still with diarrhea, 4 x today, green mucous, no blood much less abdominal pain today, hungry which is a good sign had a migraine earlier today, resolving, says it happens when she doesn't eat much Problem List Medical Problems: (1) Abdominal pain Status: Acute (2) Acute on chronic renal failure Status: Acute (3) Dehydration Status: Acute (4) Elevated lipase Status: Acute (5) Fever Status: Acute (6) History of small bowel obstruction Status: Acute (7) Immunocompromised Status: Acute (8) Kidney Transplant Status Status: Acute (9) Malaise and fatigue Status: Acute (10) Renal failure Status: Acute (11) Right upper quadrant abdominal pain Status: Acute (12) Right upper quadrant abdominal pain Status: Acute (13) Sepsis Status: Acute (14) Small bowel obstruction Status: Acute (15) UTI (urinary tract infection) Status: Acute (16) Vomiting Status: Acute Social History Problems: (1) History of renal transplant Status: Acute Review of Systems Abdomen: + diarrhea, + pain All Other Systems: Reviewed and Negative Medications Current Inpatient Medications Medications (Trade) Dose Ordered Sig/Dominique Route Start Time Stop Time Status Last Admin Dose Admin Acetaminophen (Tylenol Tab) 650 mg Q4H PRN PO 02/18/17 15:30 03/20/17 15:29 02/21/17 08:13 650 MG Magnesium Hydroxide (Milk Of Magnesia Susp) 30 ml Q6H PRN PO 02/18/17 15:30 03/20/17 15:29 Ondansetron HCl (Zofran Inj) 4 mg Q6H PRN IV 02/18/17 15:30 03/20/17 15:29 02/20/17 07:54 4 MG Glucose (Glucose 40% Gel) 15-30 GRAMS 15 GRAMS... UD PRN PO 02/18/17 15:30 03/20/17 15:29 Glucose (Glucose Chew Tab) 4-8 Tablets 4 Tabl... UD PRN PO 02/18/17 15:30 03/20/17 15:29 Dextrose (Dextrose 50% 50ML Syringe) 25-50ML OF 50% DW IV FOR... UD PRN IV 02/18/17 15:30 03/20/17 15:29 Glucagon (Glucagon Inj) 1 mg UD PRN SQ 02/18/17 15:30 03/20/17 15:29 Fidaxomicin (Dificid Tab) 200 mg BID PO 02/18/17 21:00 03/04/17 20:59 02/21/17 08:12 200 MG Amlodipine Besylate (Norvasc Tab) 5 mg DAILY PO 02/19/17 09:00 03/21/17 08:59 02/21/17 08:09 5 MG Cyclosporine (Sandimmune Cap) 75 mg BID PO 02/18/17 21:00 03/20/17 20:59 Future hold 02/18/17 20:56 75 MG Ondansetron HCl (Zofran Tab) 4 mg BID PRN PO 02/18/17 21:00 03/20/17 20:59 02/20/17 09:11 4 MG Pantoprazole Sodium (Protonix Tab) 40 mg DAILY PO 02/19/17 09:00 03/21/17 08:59 02/21/17 08:11 40 MG Pramipexole Dihydrochloride (miraPEX TAB) 0.125 mg HS PO 02/18/17 21:00 03/20/17 20:59 02/20/17 21:16 0.125 MG Venlafaxine HCl (effeXOR TAB) 37.5 mg HS PO 02/18/17 21:00 03/20/17 20:59 02/20/17 21:16 37.5 MG Warfarin Sodium (Coumadin Tab) 2.5 mg DAILY@1600 PO 02/18/17 20:00 03/20/17 19:59 02/20/17 16:22 2.5 MG Miscellaneous Information (Order Awaiting Action) 1 ea QS N/A 02/19/17 00:00 03/21/17 00:00 Sirolimus (Rapamune) 1 mg DAILY PO 02/19/17 09:00 03/21/17 08:59 Future hold Non-Formulary Medication (Non-Formulary Patient'S Own Med) 1 ea DAILY PO 02/19/17 09:00 03/21/17 08:59 02/21/17 08:21 1 EA Carvedilol (Coreg Tab) 12.5 mg HS PO 02/18/17 22:00 03/20/17 21:59 02/20/17 21:16 12.5 MG Carvedilol (Coreg Tab) 3.125 mg QAM PO 02/19/17 09:00 03/21/17 08:59 02/21/17 08:11 3.125 MG Prednisone (PredniSONE TAB) 5 mg QAM PO 02/20/17 09:00 03/22/17 08:59 02/21/17 08:10 5 MG Cholestyramine Resin (Questran Powder Light) 4 gm BID@ PO 02/20/17 22:00 03/22/17 21:59 02/21/17 10:12 4 GM Hydromorphone HCl (Dilaudid Inj) 1 mg Q4H PRN IV 02/20/17 19:30 03/06/17 19:29 02/21/17 08:13 1 MG Insulin Aspart (novoLOG ASPART) SLIDING SCALE If C... ACHS SC 02/21/17 12:00 03/23/17 11:59 02/21/17 13:06 2 UNITS Rizatriptan Benzoate (Maxalt Tab) 10 mg DAILY PRN PO 02/21/17 12:00 03/23/17 11:59 Objective Vital Signs Date Time Temp Pulse Resp B/P Pulse Ox O2 Delivery O2 Flow Rate FiO2 02/21/17 07:55 Room Air 02/21/17 07:11 36.6 63 17 158/78 98 Room Air 02/20/17 23:26 Room Air 02/20/17 23:26 36.9 69 16 130/70 97 Room Air 02/20/17 21:15 67 158/69 02/20/17 16:00 Room Air 02/20/17 15:04 37.2 70 18 133/69 95 Room Air Physical Exam General Appearance: WD/WN, no apparent distress Eyes: normal inspection, EOMI, sclerae normal ENT: normal ENT inspection, hearing grossly normal, pharynx normal Neck: supple, no adenopathy, no JVD, trachea midline Respiratory/Chest: chest non-tender, lungs clear, normal breath sounds, no respiratory distress, no accessory muscle use Cardiovascular: regular rate, rhythm, no edema, no gallop, no JVD, no murmur Abdomen: normal bowel sounds, soft, no organomegaly, + tenderness (mild, epigastric, no rebound or rigidity) Extremities: normal range of motion, non-tender, normal inspection, no pedal edema, no calf tenderness Neurologic/Psychiatric: combat information center officer II-XII nml as tested, no motor/sensory deficits, alert, normal mood/affect, oriented x 3 Skin: normal color, warm/dry, no rash Lymphatic: no adenopathy Laboratory Results Last 24 Hours Test 02/20/17 17:06 02/20/17 17:52 02/20/17 23:41 02/21/17 05:52 Sodium Level 146 mmol/L Potassium Level 5.3 mmol/L Chloride Level 117 mmol/L Carbon Dioxide Level 19 mmol/L Anion Gap 10.0 mmol/L Blood Urea Nitrogen 48 mg/dl Creatinine 3.90 mg/dl Est Creatinine Clear Calc Drug Dose 15.9 ml/min Estimated GFR () 13.9 Estimated GFR (Non- 12.0 BUN/Creatinine Ratio 12.3 Random Glucose 128 mg/dl Calcium Level 8.7 mg/dl Phosphorus Level 3.0 mg/dl Albumin 2.9 gm/dl Bedside Glucose 129 mg/dl 149 mg/dl 114 mg/dl Test 02/21/17 06:30 Prothrombin Time 29.8 SECONDS Prothromb Time International Ratio 2.7 Sodium Level 143 mmol/L Potassium Level 4.3 mmol/L Chloride Level 113 mmol/L Carbon Dioxide Level 23 mmol/L Anion Gap 7.0 mmol/L Blood Urea Nitrogen 44 mg/dl Creatinine 3.60 mg/dl Est Creatinine Clear Calc Drug Dose 17.2 ml/min Estimated GFR () 15.3 Estimated GFR (Non- 13.2 BUN/Creatinine Ratio 12.2 Random Glucose 104 mg/dl Calcium Level 8.4 mg/dl Iron Level 33 mcg/dl Total Iron Binding Capacity 172 mcg/dl Ferritin 186.6 ng/ml Assessment and Plan 57 y/o F with a history of renal transplant and bilateral nephrectomy for PCKD, multiple episodes of acute pancreatitis, small bowel obstruction with bowel resection/ileostomy/reversal of ileostomy/ventral hernia repair that is recent, now with who was admitted on 02/18 for resistant cdiff colitis and acute kidney injury in the setting of CKD stage 4-5 Cdiff colitis: failed outpatient Vancomycin PO, started on Dificid on admission , still with diarrhea although less frequent will try Questran to bulk up stools - no response yet Continue IVF for now since she is losing fluids in diarrhea and oral intake just starting to improve Probiotics--pt has probiotic from home that is safe in transplant pt, to bring in discussed fecal transplant, would need to discuss further as outpatient, need to involve [place] transplant team with this discussion ? Acute pancreatitis: Epigastric TTP with mildly elevated lipase, lipase normal today. Afebrile, no signs of necrotizing pancreatitis or sepsis no evidence of pancreatitis, could be pain in the colon from the infection her lipase never reached 1200 which is > 3x ULN for out lab allow to eat today, renal diet Acute on chronic renal failure/history of PCKD/history of renal transplant and bilateral nephrectomy: Baseline cr is 3.7 with hx of renal transplant. Now at 6.5 in the setting of diarrhea, n/v, decreased PO intake, and dehydration, likely prerenal in nature. Renal ultrasound is normal. Cr down to 3.6 today which is baseline, making adequate urine mild acidosis yesterday, non-gapped, due to diarrhea, resolved with sodium bicarb -Appreciate nephrology consultation- cyclosporine and sirolimus resumed today Follows with Dr. Roy Paroxysmal Afib: This was a new diagnosis in the postoperative period when she was in the intensive care unit at [place] in December 2016. She went back into a sinus rhythm and is regular on exam here. INR is subtherapeutic INR 2.7 today DM: resume Levemir today HTN: stable, continue home meds Other: Full code Warfarin for DVT proph
--- NOTE | 2017-02-21 13:51 | Medical Student: [facility] ---
Med Student Progress Note Date of Service February 21, 2017. Subjective Pt evaluation today including: conversation w/ patient, physical exam, chart review, lab review, review of studies, conversation w/ customer sales consultant (Dr. Roy) Pain: 01/02 PO Intake: NPO to renal diet Voiding: no voiding problems Ms Tia Bowling is a 57yo female 16 years s/p bilateral nephrectomy and transplant secondary to polycystic kidney disease with an ongoing c.diff infection refractory to vancomycin. She states the infection began while hospitalized at [place] for an abdominal hernia repair in December, and she began treatment with vancomycin February 01. She was switched to Dificid on admission two days ago. She also presented with epigastric tenderness and slightly elevated lipase, which has since resolved. She has a history of recurrent pancreatitis. She notes persistent diarrhea today, 5 loose green stools with mucus since midnight. This has not changed since yesterday. She notes a migraine which happens when she does not eat. She has been NPO for possible pancreatitis. She has a followup appointment in [place] on Monday which she hopes to make. On admission her creatinine was bumped to 6.5, now down to near her baseline at 3.7. She states she knows she needs to begin looking for a donor. She denies fever, nausea, vomiting, abdominal pain, urinary difficulties, chest pain or shortness of breath. Review of Systems Constitutional: No problem reported Eyes: No problem reported ENT: No problem reported Respiratory: No problem reported Cardiac: No problem reported Abdomen: + diarrhea, No GI bleeding, No constipation, No nausea, No pain, No vomiting Musculoskeletal: No problem reported Female : No problem reported Neurologic: No problem reported Psychiatric: No problem reported Objective Vital Signs Date Time Temp Pulse Resp B/P Pulse Ox O2 Delivery O2 Flow Rate FiO2 02/21/17 07:55 Room Air 02/21/17 07:11 36.6 63 17 158/78 98 Room Air 02/20/17 23:26 Room Air 02/20/17 23:26 36.9 69 16 130/70 97 Room Air 02/20/17 21:15 67 158/69 02/20/17 16:00 Room Air 02/20/17 15:04 37.2 70 18 133/69 95 Room Air Physical Exam Comments: Vitals: See above. Stable. General: Wd/wn. No acute distress. Resting comfortably. HEENT: NCAT, EOMI, PERRLA Moist mucus membranes. No anterior or posterior cervical lymphadenopathy. CV: Normal S1, S2. No MRG. RRR. Peripheral pulses present and intact bilaterally. Resp: Lungs clear to auscultation in upper and lower lobes bilaterally. Abdl: Soft, non-tender, non-distended. Active bowel sounds. Extremities: No calf tenderness. Laboratory Results Last 24 Hours Test 02/20/17 17:06 02/20/17 17:52 02/20/17 23:41 02/21/17 05:52 Sodium Level 146 mmol/L Potassium Level 5.3 mmol/L Chloride Level 117 mmol/L Carbon Dioxide Level 19 mmol/L Anion Gap 10.0 mmol/L Blood Urea Nitrogen 48 mg/dl Creatinine 3.90 mg/dl Est Creatinine Clear Calc Drug Dose 15.9 ml/min Estimated GFR () 13.9 Estimated GFR (Non- 12.0 BUN/Creatinine Ratio 12.3 Random Glucose 128 mg/dl Calcium Level 8.7 mg/dl Phosphorus Level 3.0 mg/dl Albumin 2.9 gm/dl Bedside Glucose 129 mg/dl 149 mg/dl 114 mg/dl Test 02/21/17 06:30 Prothrombin Time 29.8 SECONDS Prothromb Time International Ratio 2.7 Sodium Level 143 mmol/L Potassium Level 4.3 mmol/L Chloride Level 113 mmol/L Carbon Dioxide Level 23 mmol/L Anion Gap 7.0 mmol/L Blood Urea Nitrogen 44 mg/dl Creatinine 3.60 mg/dl Est Creatinine Clear Calc Drug Dose 17.2 ml/min Estimated GFR () 15.3 Estimated GFR (Non- 13.2 BUN/Creatinine Ratio 12.2 Random Glucose 104 mg/dl Calcium Level 8.4 mg/dl Iron Level 33 mcg/dl Total Iron Binding Capacity 172 mcg/dl Ferritin 186.6 ng/ml Assessment and Plan Assessment and Plan: Ms Tia Bowling is a pleasant 57yo female 16 years s/p renal transplant who presents with persistent, vanc resistant c.diff infection. Individual assessment and plan are as follows: 1. C. diff: Mild, persistent. Resistant to vanc. On dificid x3 days. Only criteria for severe c.diff is creatinine up >50%. Will consider switching to oral abx later in week for possible discharge before appointment Monday if patient and symptoms improve. Continue IV hydration, progress to renal diet. 2. Chronic Kidney Disease: Stage IV/V ckd s/p renal transplant. Dr. Roy is primary turpentine distiller. Following conversation with him, he will restart immunosuppression with sirolimus and cyclosporine. Creatinine has dropped nicely with hydration, back to her baseline. She will work with Dr. Roy as outpatient to begin process of finding donor. 3. Acute pancreatitis: Not clinically high enough to make diagnosis of pancreatitis. Will order renal diet as tolerated. No need to keep NPO for pancreatitis. 4. Migraine: Acute, intermittent. Patient notes this happens if she doesn't eat. Doesn't remember what medication she was on in the past, notes no problems with headache meds. Will give Maxalt q2 prn, switch to renal diet as tolerated. 5. Non-gap metabolic acidosis: Resolved with bicarb. 6. Paroxysmal a fib: Diagnosed post-op at [place] in December. On warfarin. INR 2.7 today. 7. DVT proph: on warfarin. 8. Dispo: Continued with IV dificid, hydration. Continued stay until clinical improvement and transition to PO abx. Continued [facility] stay due to: inadequate po fluid intake, multiple IV medications needed Discharge planning: uncertain
[2017-02-21] MEDS ORDERED: INSULIN DETEMIR FLEXPEN/FLEX TOUCH 100 UNITS/ML 3ML SC STA (14:06)
[2017-02-21 15:13] VITALS: BP 127/71; PULSE 64; TEMP 36.6; O2SAT 100
[2017-02-21] MEDS: WARFARIN SOD 2.5 MG TAB PO SCH (16:22)
[2017-02-21 21:21] VITALS: BP 144/73; PULSE 65
[2017-02-21] MEDS: VENLAFAXINE HCL 37.5 MG TAB PO SCH (21:26)
[2017-02-21] MEDS: CARVEDILOL 12.5 MG TAB PO SCH (21:26)
[2017-02-21] MEDS: PRAMIPEXOLE DIHYDROCHLORIDE 0.25MG TAB PO SCH (21:27)
[2017-02-21 23:59] VITALS: BP 145/72; PULSE 64; TEMP 36.8; O2SAT 95
[2017-02-22] MEDS: HYDROmorphone INJ 1 MG/ML SYR IV PRN (00:12)
[2017-02-22 06:55] VITALS: BP 151/75; PULSE 72; TEMP 37; O2SAT 94
[2017-02-22 08:16] LABS: INR 3.6 (0.9-1.1); PROTHROMBIN TIME (PATIENT) 41.1 SECONDS (9.0-12.0)
[2017-02-22 08:34] LABS: CREATININE 3.4 mg/dl (0.60-1.20); POTASSIUM 4.1 mmol/L (3.5-5.1)
[2017-02-22 08:44] LABS: CALCIUM 9.2 mg/dl (8.5-10.1)
[2017-02-22] MEDS ORDERED: INSULIN DETEMIR FLEXPEN/FLEX TOUCH 100 UNITS/ML 3ML SC SCH (09:00)
[2017-02-22] MEDS: CARVEDILOL 3.125 MG TAB PO SCH (09:05)
[2017-02-22] MEDS: CycloSPORINE (SANDIMMUNE) 25 MG CAP PO SCH ×2 (09:05→21:21)
[2017-02-22] MEDS: AMLODIPINE BESYLATE 5 MG TAB PO SCH (09:06)
[2017-02-22] MEDS: PANTOprazole SOD 40 MG TAB PO SCH ×2 (09:06→21:20)
[2017-02-22] MEDS: FIDAXOMICIN TAB 200 MG TAB PO SCH ×2 (09:07→21:38)
[2017-02-22] MEDS: [UNRECOGNIZED DRUG - OTHER] PO SCH (09:07)
[2017-02-22] MEDS: SIROLIMUS 1 MG PO SCH (09:08)
[2017-02-22] MEDS: INSULIN ASPART 100 UNITS/ML 3 ML PEN SC SCH ×4 (09:15→21:00)
[2017-02-22] MEDS: CHOLESTYRAMINE LIGHT 4 GM PKT PO SCH (09:18)
--- NOTE | 2017-02-22 11:24 | PROGRESS NOTE ---
DATE: 02/22/2017 SUBJECTIVE: Ms. Bowling says that she is feeling somewhat better today. The frequency of her bowel movements has declined. She is not having fecal urgency. She says that she is no longer wearing diapers because of minimal fecal incontinence. She does complain of early satiety and abdominal discomfort after she tries to eat. Her abdominal pain tended to recur when she started to eat again yesterday. She has no specific symptoms of uremia or volume overload. The remainder of her review of systems is unremarkable other than some headaches that she has had recently, which she attributes to migraine headaches. She has no associated neurologic symptoms. OBJECTIVE: GENERAL: On physical exam, she appears relatively well. VITAL SIGNS: She is afebrile (37.0), her blood pressure 151/75, her pulse 72 and regular, respiratory rate 18, and her pulse ox 94%-95% on room air. SKIN: Shows normal skin turgor. She has no obvious rash or infiltrative skin disease. She has multiple scars from prior surgical procedures. The most recent scar is a mid abdominal scar from the repair of a large ventral hernia. She has a right lower quadrant scar from her kidney transplant. LYMPHATICS: Show no palpable lymphadenopathy. HEAD: Normal. EYES: Grossly normal. The ocular fundi were not examined. She has no conjunctival icterus. EARS, NOSE, MOUTH AND THROAT: Unremarkable. Her oral mucous membranes are moist. NECK: Supple. She has no jugular venous distention, carotid bruit or thyromegaly. CHEST: Clear to auscultation. She has no wheezes, rales or rhonchi. CARDIAC: Shows a regular rhythm. S1 and S2 are normal. She has a very soft systolic murmur at the base. ABDOMEN: Firm and minimally tender throughout. She has no obvious organomegaly or mass. Her renal transplant is palpable in the right lower quadrant. I do not hear a good bruit over the transplant. She does have normal bowel sounds. EXTREMITIES: Show no cyanosis, clubbing or peripheral edema. Peripheral pulses are intact. NEUROLOGIC: Shows no lateralizing changes. PERTINENT LABORATORY WORK: From today shows a sodium of 144 mmol/L, potassium 4.1 mmol/L, chlorides 110 mmol/L, and CO2 content 26 mmol/L. Her BUN is 37 and creatinine 3.40. Her blood sugar varies from 74 to 132. Her serum iron is 33 with a total iron binding capacity of 17. Her transferrin saturation is 19.1%. Her ferritin is 186. ASSESSMENT: From the standpoint of her Clostridium difficile colitis, she appears to be improving on Dificid. The frequency of her bowel movements is down, although her stools still remain loose. She is having abdominal pain once again now that she is eating. The onset of her abdominal pain appeared to occur right after her surgery. In addition to her having pain, she has symptoms of early satiety. RECOMMENDATIONS: No change in overall therapy for now. Maintain hydration, particularly if she has any worsening diarrhea. As far as her abdominal pain is concerned, I think an abdominal ultrasound and abdominal CT scan with oral, but no IV contrast, may be helpful. However, if that fails to ____ on an source of abdominal pain, I think that she will need an EGD particularly with her complaint of early satiety. The above was discussed with Dr. Langley.
[2017-02-22] MEDS ORDERED: HYDROmorphone INJ 1 MG/ML SYR IV PRN (11:30)
--- NOTE | 2017-02-22 12:19 | Medical Student: [facility] ---
Med Student Progress Note Date of Service February 22, 2017. Subjective Pt evaluation today including: conversation w/ patient, physical exam, chart review, review of studies Pain: 02/01 epigastric PO Intake: good Voiding: no voiding problems Ms Tia Bowling is a 57yo female on hospital day 5 who is 16 years s/p bilateral nephrectomy and transplant secondary to polycystic kidney disease with an ongoing c.diff infection refractory to vancomycin. She states the infection began while hospitalized at [facility] for an abdominal hernia repair in December, and she began treatment with vancomycin February 01. She was switched to Dificid on admission four days ago. She also presented with epigastric tenderness and slightly elevated lipase, which has since resolved, and the epigastric pain seems to have returned since resuming a normal diet yesterday. She has a history of recurrent pancreatitis. Her diarrhea has resolved, and she has not had a loose BM in 24 hours. She does not have fever or chills. She has no migraine today but notes a dull frontal headache. She complains of epigastric pain beginning 20 minutes postprandially that comes on quickly and is persistent. . On admission her creatinine was bumped to 6.5, now down to near her baseline at 3.4. She states she knows she needs to begin looking for a donor. She denies fever, nausea, vomiting, diarrhea, urinary difficulties, chest pain or shortness of breath. Review of Systems Constitutional: No chills, No fatigue, No fever, No sweats, No weakness, No weight loss Eyes: No problem reported ENT: No problem reported Respiratory: No problem reported Cardiac: No problem reported Abdomen: + pain (epigastric postprandial), No GI bleeding, No constipation, No diarrhea, No nausea, No vomiting Musculoskeletal: No problem reported Female : No problem reported Neurologic: No problem reported Psychiatric: No problem reported Heme: No problem reported Endo: No problem reported Skin: No problem reported Objective Vital Signs Date Time Temp Pulse Resp B/P Pulse Ox O2 Delivery O2 Flow Rate FiO2 02/22/17 08:05 Room Air 02/22/17 06:55 37.0 72 18 151/75 94 Room Air 02/22/17 00:20 Room Air 02/21/17 23:59 36.8 64 16 145/72 95 Room Air 02/21/17 21:21 65 144/73 02/21/17 16:05 Room Air 02/21/17 15:13 36.6 64 16 127/71 100 Room Air Physical Exam Comments: Vitals: See above. Stable. General: Wd/wn. No acute distress. Resting comfortably. HEENT: NCAT, EOMI, PERRLA Moist mucus membranes. CV: Normal S1, S2. No MRG. RRR. Resp: Lungs clear to auscultation in upper and lower lobes bilaterally. Abdl: Soft, epigastric tenderness. No rebound. non-distended. Active bowel sounds. No bruising Extremities: No calf tenderness. Laboratory Results Last 24 Hours Test 02/21/17 17:06 02/21/17 20:41 02/22/17 07:55 Bedside Glucose 132 mg/dl 109 mg/dl Prothrombin Time 41.1 SECONDS Prothromb Time International Ratio 3.6 Sodium Level 144 mmol/L Potassium Level 4.1 mmol/L Chloride Level 110 mmol/L Carbon Dioxide Level 26 mmol/L Anion Gap 8.0 mmol/L Blood Urea Nitrogen 37 mg/dl Creatinine 3.40 mg/dl Est Creatinine Clear Calc Drug Dose 18.2 ml/min Estimated GFR () 16.4 Estimated GFR (Non- 14.1 BUN/Creatinine Ratio 11.0 Random Glucose 74 mg/dl Calcium Level 9.2 mg/dl Assessment and Plan Assessment and Plan: Ms Tia Bowling is a pleasant 57yo female 16 years s/p renal transplant who presents with persistent, vanc resistant c.diff infection. Individual assessment and plan are as follows: 1. C. diff: Resolving. Resistant to vanc. On dificid x4 days. Will consider switching to oral abx later in week for possible discharge later in week with continued resolution fo diarrha. Continue IV hydration, renal diet as tolerated. 2. Chronic Kidney Disease: Stage IV/V ckd s/p renal transplant. Dr. Roy is primary iron worker foreman. Restarted immunosuppression yesterday. Creatinine has dropped nicely with hydration, back to her baseline 3.4. She will work with Dr. Roy as outpatient to begin process of finding donor. 3. Epigastric pain: Postprandial epigastric pain possibly related to pancreatitis, but lipase has been wnl. Clinically sounds like cholecystitis, but gallbladder is surgically absent. Will do abdominal US, possibly CT if sx do not resolve in absence of dx on u/s. Continue renal diet as tolerated. 4. Migraine: Acute,Resolved. Patient notes this happens if she doesn't eat, resolved yesterday with normal diet. Today with manageable frontal headache. Continue with Maxalt q2 prn, tylenol q6 prn. 5. Non-gap metabolic acidosis: Resolved with bicarb. 6. Paroxysmal a fib: Diagnosed post-op at [place] in December. On warfarin. INR 3.6 today. Will hold warfarin. Pt has been in sinus rhythm and diet is variable. 7. DVT proph: on warfarin. 8. Dispo: Continued with IV dificid, hydration. Continued stay until clinical improvement and transition to PO abx. Continued [facility] stay due to: inadequate po fluid intake, multiple IV medications needed Discharge planning: uncertain
--- NOTE | 2017-02-22 12:32 | Gastroenterology Progress Note ---
Progress Note Date of Service: February 22, 2017 Subjective Pt evaluation today including: conversation w/ patient, physical exam, chart review, lab review, review of studies, review of inpatient medication list Pt previously seen as a consult by Dr. Mena for Cdiff. Her diarrhea is improving since started on Dificid. GI is asked to see pt again today for her c/ o epigastric abd pain and fullness feeling. Pt had hx of ventral hernia surgery at [facility] on 01/17/17. She notes that 2 weeks after this surgery, she started having epigastric area abd pain and fullness, usually 20 mins postprandially. She didn't notice any specific foods causing the pain but states the other day tried eating burger meat and last night grilled cheese sandwich which causes the pain. She has associated nausea and sometimes vomiting. Denies blood in emesis. Of note she has had multiple abd surgeries in past including nephrectomies, kidney transplant, bowel perforation s/p repair, Csection Review of Systems Constitutional: No chills, No fever Respiratory: No cough, No shortness of breath Cardiac: No chest pain Abdomen: + nausea, + pain, + see HPI, + vomiting Medications Current Inpatient Medications Medications (Trade) Dose Ordered Sig/Dominique Route Start Time Stop Time Status Last Admin Dose Admin Acetaminophen (Tylenol Tab) 650 mg Q4H PRN PO 02/18/17 15:30 03/20/17 15:29 02/21/17 08:13 650 MG Magnesium Hydroxide (Milk Of Magnesia Susp) 30 ml Q6H PRN PO 02/18/17 15:30 03/20/17 15:29 Ondansetron HCl (Zofran Inj) 4 mg Q6H PRN IV 02/18/17 15:30 03/20/17 15:29 02/20/17 07:54 4 MG Glucose (Glucose 40% Gel) 15-30 GRAMS 15 GRAMS... UD PRN PO 02/18/17 15:30 03/20/17 15:29 Glucose (Glucose Chew Tab) 4-8 Tablets 4 Tabl... UD PRN PO 02/18/17 15:30 03/20/17 15:29 Dextrose (Dextrose 50% 50ML Syringe) 25-50ML OF 50% DW IV FOR... UD PRN IV 02/18/17 15:30 03/20/17 15:29 Glucagon (Glucagon Inj) 1 mg UD PRN SQ 02/18/17 15:30 03/20/17 15:29 Fidaxomicin (Dificid Tab) 200 mg BID PO 02/18/17 21:00 03/04/17 20:59 02/22/17 09:07 200 MG Amlodipine Besylate (Norvasc Tab) 5 mg DAILY PO 02/19/17 09:00 03/21/17 08:59 02/22/17 09:06 5 MG Cyclosporine (Sandimmune Cap) 75 mg BID PO 02/18/17 21:00 03/20/17 20:59 Future hold 02/22/17 09:05 75 MG Ondansetron HCl (Zofran Tab) 4 mg BID PRN PO 02/18/17 21:00 03/20/17 20:59 02/20/17 09:11 4 MG Pantoprazole Sodium (Protonix Tab) 40 mg DAILY PO 02/19/17 09:00 03/21/17 08:59 02/22/17 09:06 40 MG Pramipexole Dihydrochloride (miraPEX TAB) 0.125 mg HS PO 02/18/17 21:00 03/20/17 20:59 02/21/17 21:27 0.125 MG Venlafaxine HCl (effeXOR TAB) 37.5 mg HS PO 02/18/17 21:00 03/20/17 20:59 02/21/17 21:26 37.5 MG Warfarin Sodium (Coumadin Tab) 2.5 mg DAILY@1600 PO 02/18/17 20:00 03/20/17 19:59 Future Hold 02/21/17 16:22 2.5 MG Miscellaneous Information (Order Awaiting Action) 1 ea QS N/A 02/19/17 00:00 03/21/17 00:00 Sirolimus (Rapamune) 1 mg DAILY PO 02/19/17 09:00 03/21/17 08:59 Future hold 02/22/17 09:08 1 MG Non-Formulary Medication (Non-Formulary Patient'S Own Med) 1 ea DAILY PO 02/19/17 09:00 03/21/17 08:59 02/22/17 09:07 1 EA Carvedilol (Coreg Tab) 12.5 mg HS PO 02/18/17 22:00 03/20/17 21:59 02/21/17 21:26 12.5 MG Carvedilol (Coreg Tab) 3.125 mg QAM PO 02/19/17 09:00 03/21/17 08:59 02/22/17 09:05 3.125 MG Prednisone (PredniSONE TAB) 5 mg QAM PO 02/20/17 09:00 03/22/17 08:59 02/22/17 09:07 5 MG Insulin Aspart (novoLOG ASPART) SLIDING SCALE If C... ACHS SC 02/21/17 12:00 03/23/17 11:59 02/22/17 09:15 3 UNITS Rizatriptan Benzoate (Maxalt Tab) 10 mg DAILY PRN PO 02/21/17 12:00 03/23/17 11:59 Insulin Detemir (Levemir Flexpen/ FlexTouch) 26 unit QAM SC 02/22/17 09:00 03/24/17 08:59 02/22/17 09:16 26 UNIT Hydromorphone HCl (Dilaudid Inj) 0.5 mg Q4H PRN IV 02/22/17 11:30 03/08/17 11:29 Objective Vital Signs Date Time Temp Pulse Resp B/P Pulse Ox O2 Delivery O2 Flow Rate FiO2 02/22/17 08:05 Room Air 02/22/17 06:55 37.0 72 18 151/75 94 Room Air 02/22/17 00:20 Room Air 02/21/17 23:59 36.8 64 16 145/72 95 Room Air 02/21/17 21:21 65 144/73 02/21/17 16:05 Room Air 02/21/17 15:13 36.6 64 16 127/71 100 Room Air Physical Exam General Appearance: WD/WN, no apparent distress Eyes: normal inspection, PERRL, EOMI Neck: supple, no JVD, trachea midline Respiratory/Chest: normal breath sounds, no respiratory distress, no accessory muscle use Cardiovascular: regular rate, rhythm, no gallop, no murmur Abdomen: soft, + tenderness (epigastric ) Neurologic/Psych: alert, normal mood/affect, oriented x 3 Skin: normal color, no jaundice, no rash Laboratory Results Last 24 Hours Test 02/21/17 17:06 02/21/17 20:41 02/22/17 07:55 Bedside Glucose 132 mg/dl 109 mg/dl Prothrombin Time 41.1 SECONDS Prothromb Time International Ratio 3.6 Sodium Level 144 mmol/L Potassium Level 4.1 mmol/L Chloride Level 110 mmol/L Carbon Dioxide Level 26 mmol/L Anion Gap 8.0 mmol/L Blood Urea Nitrogen 37 mg/dl Creatinine 3.40 mg/dl Est Creatinine Clear Calc Drug Dose 18.2 ml/min Estimated GFR () 16.4 Estimated GFR (Non- 14.1 BUN/Creatinine Ratio 11.0 Random Glucose 74 mg/dl Calcium Level 9.2 mg/dl Assessment and Plan Pt is a 57 y/o female w Cdiff, currently responding well w Dificid. We are asked to see pt again for early satiety, epigastric pain postprandially. These symptoms onset were 2 week after her ventral hernia w mesh repair (done at [facility]). - U/S abd already ordered. If unrevealing may add CT abd/pelvis. - Obtain UGI series. - Increase Protonix 40mg BID. - She refused for EGD evaluation, thus will defer - Discussed possible gastric emptying study but this can be completed in outpt setting.
--- NOTE | 2017-02-22 14:20 | Progress Note ---
Subjective Date of Service: February 22, 2017. Subjective Pt evaluation today including: conversation w/ patient, physical exam, lab review, review of studies, conversation w/ regulatory consultant, review of inpatient medication list Pain: epigastric pain PO Intake: tried some solid food, more pain return of epigastric pain with trying some solid food yesterday reports that this pain has been ongoing since her hernia repair surgery at [place] she has been able to eat but definitely with early satiety discussed that we would get US and request GI to re-evaluate appreciate GI note, possible CT, GI follow through series patient not interested in EGD if recommended Problem List Medical Problems: (1) Abdominal pain Status: Acute (2) Acute on chronic renal failure Status: Acute (3) Dehydration Status: Acute (4) Elevated lipase Status: Acute (5) Fever Status: Acute (6) History of small bowel obstruction Status: Acute (7) Immunocompromised Status: Acute (8) Kidney Transplant Status Status: Acute (9) Malaise and fatigue Status: Acute (10) Renal failure Status: Acute (11) Right upper quadrant abdominal pain Status: Acute (12) Right upper quadrant abdominal pain Status: Acute (13) Sepsis Status: Acute (14) Small bowel obstruction Status: Acute (15) UTI (urinary tract infection) Status: Acute (16) Vomiting Status: Acute Social History Problems: (1) History of renal transplant Status: Acute Review of Systems Abdomen: + pain (epigastric) All Other Systems: Reviewed and Negative Medications Current Inpatient Medications Medications (Trade) Dose Ordered Sig/Dominique Route Start Time Stop Time Status Last Admin Dose Admin Acetaminophen (Tylenol Tab) 650 mg Q4H PRN PO 02/18/17 15:30 03/20/17 15:29 02/21/17 08:13 650 MG Magnesium Hydroxide (Milk Of Magnesia Susp) 30 ml Q6H PRN PO 02/18/17 15:30 03/20/17 15:29 Ondansetron HCl (Zofran Inj) 4 mg Q6H PRN IV 02/18/17 15:30 03/20/17 15:29 02/20/17 07:54 4 MG Glucose (Glucose 40% Gel) 15-30 GRAMS 15 GRAMS... UD PRN PO 02/18/17 15:30 03/20/17 15:29 Glucose (Glucose Chew Tab) 4-8 Tablets 4 Tabl... UD PRN PO 02/18/17 15:30 03/20/17 15:29 Dextrose (Dextrose 50% 50ML Syringe) 25-50ML OF 50% DW IV FOR... UD PRN IV 02/18/17 15:30 03/20/17 15:29 Glucagon (Glucagon Inj) 1 mg UD PRN SQ 02/18/17 15:30 03/20/17 15:29 Fidaxomicin (Dificid Tab) 200 mg BID PO 02/18/17 21:00 03/04/17 20:59 02/22/17 09:07 200 MG Amlodipine Besylate (Norvasc Tab) 5 mg DAILY PO 02/19/17 09:00 03/21/17 08:59 02/22/17 09:06 5 MG Cyclosporine (Sandimmune Cap) 75 mg BID PO 02/18/17 21:00 03/20/17 20:59 Future hold 02/22/17 09:05 75 MG Ondansetron HCl (Zofran Tab) 4 mg BID PRN PO 02/18/17 21:00 03/20/17 20:59 02/20/17 09:11 4 MG Pramipexole Dihydrochloride (miraPEX TAB) 0.125 mg HS PO 02/18/17 21:00 03/20/17 20:59 02/21/17 21:27 0.125 MG Venlafaxine HCl (effeXOR TAB) 37.5 mg HS PO 02/18/17 21:00 03/20/17 20:59 02/21/17 21:26 37.5 MG Warfarin Sodium (Coumadin Tab) 2.5 mg DAILY@1600 PO 02/18/17 20:00 03/20/17 19:59 Future Hold 02/21/17 16:22 2.5 MG Miscellaneous Information (Order Awaiting Action) 1 ea QS N/A 02/19/17 00:00 03/21/17 00:00 Sirolimus (Rapamune) 1 mg DAILY PO 02/19/17 09:00 03/21/17 08:59 Future hold 02/22/17 09:08 1 MG Non-Formulary Medication (Non-Formulary Patient'S Own Med) 1 ea DAILY PO 02/19/17 09:00 03/21/17 08:59 02/22/17 09:07 1 EA Carvedilol (Coreg Tab) 12.5 mg HS PO 02/18/17 22:00 03/20/17 21:59 02/21/17 21:26 12.5 MG Carvedilol (Coreg Tab) 3.125 mg QAM PO 02/19/17 09:00 03/21/17 08:59 02/22/17 09:05 3.125 MG Prednisone (PredniSONE TAB) 5 mg QAM PO 02/20/17 09:00 03/22/17 08:59 02/22/17 09:07 5 MG Insulin Aspart (novoLOG ASPART) SLIDING SCALE If C... ACHS SC 02/21/17 12:00 03/23/17 11:59 02/22/17 09:15 3 UNITS Rizatriptan Benzoate (Maxalt Tab) 10 mg DAILY PRN PO 02/21/17 12:00 03/23/17 11:59 Insulin Detemir (Levemir Flexpen/ FlexTouch) 26 unit QAM SC 02/22/17 09:00 03/24/17 08:59 02/22/17 09:16 26 UNIT Hydromorphone HCl (Dilaudid Inj) 0.5 mg Q4H PRN IV 02/22/17 11:30 03/08/17 11:29 02/22/17 13:42 0.5 MG Pantoprazole Sodium (Protonix Tab) 40 mg BID PO 02/22/17 21:00 03/24/17 20:59 Objective Vital Signs Date Time Temp Pulse Resp B/P Pulse Ox O2 Delivery O2 Flow Rate FiO2 02/22/17 08:05 Room Air 02/22/17 06:55 37.0 72 18 151/75 94 Room Air 02/22/17 00:20 Room Air 02/21/17 23:59 36.8 64 16 145/72 95 Room Air 02/21/17 21:21 65 144/73 02/21/17 16:05 Room Air 02/21/17 15:13 36.6 64 16 127/71 100 Room Air Physical Exam General Appearance: WD/WN, no apparent distress Eyes: normal inspection, EOMI, sclerae normal ENT: normal ENT inspection, hearing grossly normal, pharynx normal Neck: supple, no adenopathy, no JVD, trachea midline Respiratory/Chest: chest non-tender, lungs clear, normal breath sounds, no respiratory distress, no accessory muscle use Cardiovascular: regular rate, rhythm, no edema, no gallop, no JVD, no murmur Abdomen: normal bowel sounds, soft, no organomegaly, + tenderness (epigastric, no rigidity or rebound) Extremities: normal range of motion, non-tender, normal inspection, no pedal edema, no calf tenderness Neurologic/Psychiatric: nutrition faculty member II-XII nml as tested, no motor/sensory deficits, alert, normal mood/affect, oriented x 3 Skin: normal color, warm/dry, no rash Lymphatic: no adenopathy Laboratory Results Last 24 Hours Test 02/21/17 17:06 02/21/17 20:41 02/22/17 07:55 02/22/17 08:17 Bedside Glucose 132 mg/dl 109 mg/dl 77 mg/dl Prothrombin Time 41.1 SECONDS Prothromb Time International Ratio 3.6 Sodium Level 144 mmol/L Potassium Level 4.1 mmol/L Chloride Level 110 mmol/L Carbon Dioxide Level 26 mmol/L Anion Gap 8.0 mmol/L Blood Urea Nitrogen 37 mg/dl Creatinine 3.40 mg/dl Est Creatinine Clear Calc Drug Dose 18.2 ml/min Estimated GFR () 16.4 Estimated GFR (Non- 14.1 BUN/Creatinine Ratio 11.0 Random Glucose 74 mg/dl Calcium Level 9.2 mg/dl Assessment and Plan 57 y/o F with a history of renal transplant and bilateral nephrectomy for PCKD, multiple episodes of acute pancreatitis, small bowel obstruction with bowel resection/ileostomy/reversal of ileostomy/ventral hernia repair that is recent, now with who was admitted on 02/18 for resistant cdiff colitis and acute kidney injury in the setting of CKD stage 4-5 Cdiff colitis: failed outpatient Vancomycin PO, started on Dificid on admission , actually went 24 hours without diarrhea so improved today responded to Questran, now patient requesting to stop since no diarrhea, will hold stop IV fluids Probiotics--pt has probiotic from home that is safe in transplant pt, to bring in discussed fecal transplant, would need to discuss further as outpatient, need to involve [place] transplant team with this discussion Epigastric pain, early satiety: no clear etiology, lipase mildly up on admission but no signs or pancreatitis check abdominal US, has a h/o cholecystectomy appreciate GI note, plan for possible CT and/or small bowel follow through gastric emptying would need to be done as outpatient Acute on chronic renal failure/history of PCKD/history of renal transplant and bilateral nephrectomy: Baseline cr is 3.7 with hx of renal transplant. on admission, Cr was 6.5 in the setting of diarrhea, n/v, decreased PO intake , and dehydration, likely prerenal in nature. Renal ultrasound is normal. Cr down to 3.4 today which is baseline, making adequate urine mild acidosis non-gapped, due to diarrhea, resolved with sodium bicarb -Appreciate nephrology consultation- cyclosporine and sirolimus resumed 02/[address] Roy will eventually need a new kidney transplant Paroxysmal Afib: This was a new diagnosis in the postoperative period when she was in the intensive care unit at [place] in December 2016. She went back into a sinus rhythm and is regular on exam here. INR is subtherapeutic INR 3.7 today, hold coumadin today and allow INR to come back down DM: Levemir HTN: stable, continue home meds Other: Full code Warfarin for DVT proph Continued [facility] stay due to: inadequate po fluid intake, multiple IV medications needed Discharge planning: uncertain
--- NOTE | 2017-02-22 14:23 | DIAGNOSTIC IMAGING REPORT ---
ABDOMINAL ULTRASOUND COMPLETE HISTORY: epigastric pain, early satiety. COMPARISON: Renal ultrasound 02/18/2017. Abdomen and pelvis CT 05/26/2016. Abdominal ultrasound 05/30/2016. FINDINGS: Pancreas: Obscured by overlying bowel gas. Liver: Multiple hepatic cysts are again noted. Gallbladder: The gallbladder is surgically absent. CBD: 1.1 cm. This is decreased in size from the prior study. Kidneys: Left lower quadrant renal transplant which measures 9.5 cm. There is focal scarring within the lower pole, unchanged. No hydronephrosis. Spleen: Normal in size. Aorta: Obscured by overlying bowel gas. IVC: Obscured by overlying bowel gas. IMPRESSION: 1. Multiple hepatic cysts. 2. Cholecystectomy. Mild common bile duct dilatation which has improved from the prior study. 3. Left lower quadrant renal transplant is again noted. No hydronephrosis. 4. The midline structures are obscured by overlying bowel gas bowel gas. Electronically signed by: Caden Garibay M.D. 02/22/2017 2:21 PM Dictated Date/Time: 02/22/2017 2:17 PM
--- NOTE | 2017-02-22 14:42 | DIAGNOSTIC IMAGING REPORT ---
DOUBLE CONTRAST UPPER GI SERIES CLINICAL HISTORY: Epigastric abdominal pain. Recent ventral hernia repair. COMPARISON STUDY: Abdominal CT dated 05/26/2016. TECHNIQUE: A standard air contrast upper GI series was performed. Spot images of the esophagus and stomach were obtained in multiple obliquities both upright and prone. FINDINGS: The patient swallowed barium without difficulty. The esophagus is structurally normal without evidence of intrinsic or extrinsic mass. Mild esophageal dysmotility is observed. The esophageal mucosal pattern is normal. No gastroesophageal reflux was elicited by having the patient perform the Valsalva maneuver. The gastroesophageal junction distends normally. A calcified breast implant is noted. The stomach is suboptimally distended. There is no evidence of mass lesion, ulceration, or gastritis. There is a small duodenal diverticulum. The duodenal bulb and sweep are otherwise unremarkable. Surgical clips are seen in the upper abdomen. Fluoroscopy time: 1.7 minutes Fluoroscopic images: 19 IMPRESSION: 1. Mild esophageal dysmotility. 2. Otherwise unremarkable fluoroscopic upper GI series. Electronically signed by: Bradley Rivas M.D. 02/22/2017 2:41 PM Dictated Date/Time: 02/22/2017 2:39 PM
[2017-02-22 15:18] VITALS: BP 138/76; PULSE 59; TEMP 36.8; O2SAT 100
[2017-02-22 21:16] VITALS: BP 160/83; PULSE 105
[2017-02-22] MEDS: CARVEDILOL 12.5 MG TAB PO SCH (21:17)
[2017-02-22] MEDS: VENLAFAXINE HCL 37.5 MG TAB PO SCH (21:18)
[2017-02-22] MEDS: PRAMIPEXOLE DIHYDROCHLORIDE 0.25MG TAB PO SCH (21:19)
[2017-02-22 23:28] VITALS: BP 166/97; PULSE 63; TEMP 36.8; O2SAT 97
[2017-02-23] MEDS: ONDANSETRON INJ 2 MG/ML 2 ML VIAL IV PRN (05:57)
[2017-02-23 06:32] LABS: INR 3.3 (0.9-1.1); PROTHROMBIN TIME (PATIENT) 36.8 SECONDS (9.0-12.0)
[2017-02-23 07:01] LABS: CREATININE 3.3 mg/dl (0.60-1.20)
[2017-02-23 07:02] LABS: BUN/CREATININE RATIO 9.5 (10-20); CALCIUM 9.3 mg/dl (8.5-10.1)
[2017-02-23 07:25] VITALS: BP 132/80; PULSE 60; TEMP 36.9; O2SAT 95
[2017-02-23] MEDS: INSULIN ASPART 100 UNITS/ML 3 ML PEN SC SCH (09:31)
[2017-02-23] MEDS: PANTOprazole SOD 40 MG TAB PO SCH (09:35)
[2017-02-23] MEDS: CARVEDILOL 3.125 MG TAB PO SCH (09:35)
[2017-02-23] MEDS: CycloSPORINE (SANDIMMUNE) 25 MG CAP PO SCH (09:36)
[2017-02-23] MEDS: AMLODIPINE BESYLATE 5 MG TAB PO SCH (09:36)
[2017-02-23] MEDS: SIROLIMUS 1 MG PO SCH (09:37)
[2017-02-23] MEDS ORDERED: DFC200 PO (09:38)
[2017-02-23] MEDS ORDERED: LVMIPEN SC (09:38)
[2017-02-23] MEDS ORDERED: TCMD2 PO (09:39)
--- NOTE | 2017-02-23 09:47 | Discharge Instructions ---
Discharge Instructions Date of Service Feb 23, 2017. Admission Reason for Admission: Clostridium Difficile Diarrhea Discharge Discharge Diagnosis / Problem: C diff diarrhea, Acute kidney injury on CKD of allograft, epigastric pain Discharge Goals Goal(s): Decrease discomfort, Improve function, Improve disease control Activity Recommendations Activity Limitations: resume your previous activity Lifting Limitations: none Exercise/Sports Limitations: as tolerated May Resume Sexual Activity: when tolerated Shower/Bathe: no limitations Driving or Machine Use: no limitations . Instructions / Follow-Up Instructions / Follow-Up Medications: - DIFICID: take twice a day for 2 weeks at a minimum, you should follow up with Infectious disease for further instructions on duration of therapy, possibly need longer duration - COUMADIN: your INR was elevated at 3.7 yesterday and then 3.3 today after holding Coumadin likely the INR is up due to poor oral intake, concurrent issues with C diff, Dificid use no Coumadin again today, start taking 2mg daily tomorrow, script sent to pharmacy, follow up with Dr. Roy - [facility]: continue the 12 units you were taking at home C diff diarrhea: improved with Dificid, follow up in the next 2 weeks with infectious disease for further instructions on duration of therapy Dr. Roy can refer you for possible fecal transplant if desired Acute kidney injury on CKD allograft: Cr down to normal for you at 3.3, making adequate urine follow up with Dr. Roy Epigastric pain: no clear etiology, could be uremia, Dificid irritation, related to surgery abdominal US normal, GI follow through normal could consider gastric emptying study as outpatient, Dr. Roy can refer you FOLLOW UP - Dr. Roy in office next week, call for appointment - [facility] PA-C in 1-2 weeks, call for appointment, [phone] - general surgery at [place] next month Current Hospital Diet Patient's current hospital diet: Renal Diet, Diabetes Type 2 Diet Discharge Diet Recommended Diet: Diabetes Type 2 Diet, Renal Diet Procedures Procedures Performed: none Pending Studies Studies pending at discharge: no Laboratory Results Hemoglobin A1c Test 02/19/17 05:20 Range/Units Estimated Average Glucose 120 mg/dl Hemoglobin A1c 5.8 H 4.5-5.6 % Medical Emergencies . Who to Call and When: Medical Emergencies: If at any time you feel your situation is an emergency, please call 911 immediately. . Non-Emergent Contact Non-Emergency issues call your: Primary Care Provider, Filer Repairer, Surgeon Call Non-Emergent contact if: your pain is worsening, you have any medication questions . . "Provider Documentation" section prepared by John Langley. . VTE Core Measure Inpt VTE Proph given/why not?: Warfarin (Coumadin) [place] Drug Monitoring Program Search Results: no issues identified
--- NOTE | 2017-02-23 09:55 | NEPHROLOGY PROGRESS NOTE ---
DATE: 02/23/2017 DATE: 02/23/2017. SUBJECTIVE: Mrs. Bowling says that she is feeling somewhat better today. However, she continues to have problems with nausea and postprandial abdominal discomfort. She had a loose stool this morning which she said was related to the contrast that she had yesterday for her GI series. She has had no chills or sweats. She has remained afebrile. Nausea is her major complaint. She has no other specific uremic symptomatology including no problems with pruritus or excessive sleepiness. Last night she had what she characterized as a "migraine" headache. She received her medication for that, her blood pressure went up and she associates that with her migraine medication. She has had no other particular problems. She denies chest pain, palpitations or shortness of breath. OBJECTIVE: GENERAL: When seen today, she appeared relatively well and about at her baseline. VITAL SIGNS: She is afebrile (36.9), her blood pressure 132/80, her pulse 60 and regular. Respiratory rate 16. Her pulse ox 95-100% on room air. SKIN: Shows normal skin turgor. There is no rash or infiltrative skin disease. She has scars from prior surgical procedures including a right lower quadrant scar from her kidney transplant. She has a mid abdominal scar from the repair of her ventral hernia as well. LYMPHATICS: Show no palpable lymphadenopathy. HEAD: Normal. EYES: Grossly normal. She has no conjunctival icterus. EARS, NOSE, MOUTH AND THROAT: All unremarkable. Oral mucous membranes are moist. NECK: Supple. There is no jugular venous distention, carotid bruit or thyromegaly. CHEST: Clear to auscultation. She has no wheezes, rales or rhonchi. CARDIAC EXAMINATION: Shows a regular rhythm. S1 and S2 are normal. She has a soft systolic murmur at the base. ABDOMEN: Firm. It is minimally tender throughout. She has no obvious organomegaly or mass. Her renal transplant is palpable in the right lower quadrant. I hear no bruit over the transplant. Bowel sounds are normal. EXTREMITIES: Show no cyanosis, clubbing or peripheral edema. Peripheral pulses are intact. NEUROLOGIC EXAMINATION: Shows no lateralizing changes. LABORATORY DATA: From today shows a sodium of 145 mmol/L, potassium 4.0 mmol/L, chloride is 110 mmol/L, and CO2 content 28 mEq/L. Her BUN is 31, her creatinine 3.3. Her serum calcium is 9.3. Blood sugars have varied from 76 to 95. Imaging studies done yesterday included an upper GI series which was largely unremarkable other than some minimal esophageal dysmotility. She also had an abdominal ultrasound which confirmed her gallbladder being surgically absent. Her left lower quadrant kidney transplant is present and is of normal size with no hydronephrosis. ASSESSMENT: Mrs. Bowling she appears to be doing somewhat better. At least her diarrhea is slowed. She has issues with nausea at the current time which could be multifactorial. Obviously gastric irritation is a concern. Additionally, she could have symptoms of uremia, although she has no other symptoms consistent with that at least at the current time. Finally, it may be that her nausea is related to the use of Dificid. It is a common side effect. RECOMMENDATIONS: The patient wishes to go home. I have agreed to see her as an outpatient within a few days. She also agrees that she would come back if her symptoms get worse. For now, the only other recommendation is to give her another dose of Procrit 40,000 units. I have taken the liberty of writing for that.
[2017-02-23] MEDS ORDERED: EPOETIN ALFA 40,000 UNITS/ML VIAL SQ SCH (10:00)
[2017-02-23 10:36] VITALS: BP 132/80; PULSE 60; TEMP 36.9; O2SAT 95
[2017-02-23] MEDS: [UNRECOGNIZED DRUG - OTHER] PO SCH (10:53)
[2017-02-23] MEDS: FIDAXOMICIN TAB 200 MG TAB PO SCH (10:53)
--- NOTE | 2017-02-23 11:07 | Progress Note ---
Progress Note Date of Service Feb 23, 2017. Progress Note GI progress note: Pt seen yesterday for epigastric pain and early satiety 2 weeks after her ventral hernia surgery done at [facility] on 01/17/17. UGI series obtained which showed mild esophageal dysmotility otherwise normal exam. Abd u/ s also unremarkable, no acute process to identify etiology of pt's symptoms. Per primary hospitalist, pt is getting discharged today. She refused an EGD evaluation. I did mention possible gastric emptying study to r/o gastroparesis. Given her DC today would recommend her to f/u w her usual GI provider ([facility]) for possible gastric emptying study and also to f/u Cdiff which is the primary reason of her admission.
--- NOTE | 2017-02-23 11:30 | Discharge Summary ---
Discharge Summary Date of Service Feb 23, 2017. 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 Roy Infectious disease Gastroenterology Medication Reconciliation New Medications: Warfarin Sod (Coumadin) 2 Mg Tab 2 MG PO DAILY for 30 Days, #30 TAB 2 Refills Fidaxomicin (Dificid) 200 Mg Tab 200 MG PO BID for 14 Days, #28 TAB 1 Refill Insulin Detemir (Levemir Flextouch) 100 Unit/Ml Inj 12 UNIT SC QAM, #1 BOX 2 Refills Continued Medications: Amlodipine Besylate (Amlodipine Besylate) 5 Mg Tab 1 TAB PO DAILY, #30 Azelastine HCl (Azelastine HCl) 0.15 % Spr 1 SPRAYS АНДРЕЙ DAILY Biotin (Biotin 5000) 5 Mg Cap 5000 MCG PO QAM Calcium W/ Vitamins D & K (Calcium + D + K) 1 Tab Tab 1 TABLET PO MWF Carvedilol (Carvedilol) 6.25 Mg Tab 2 TAB PO QAM, #180 Cyclosporine (Sandimmune) 25 Mg Cap 75 MG PO BID Epoetin Kvng (Procrit) 40,000 Units Inj 1 DOSE INJ for ANEMIA, #4 Estrogens, Conjugated (Premarin) 0.625 Mg Tab 0.625 MG PO UD, TAB 1 tab twice a month Gemfibrozil (Lopid) 600 Mg Tab 1 TAB PO Q2D, #180 Krill Oil (Krill Oil [place]-3) 1 Cap Cap 2 TAB PO DAILY Multivitamin (Multivitamin) Tab 1 TAB PO QAM Ondansetron (Ondansetron HCl) 4 Mg Tab 1 TAB PO BID for Nausea, #25 Oxycodone HCl (Oxycodone HCl) 5 Mg Tab 1 TAB PO Q6H for Pain, #30 Pantoprazole (Pantoprazole Sodium) 40 Mg Tab 1 TAB PO DAILY, #90 Polysaccharide Iron Complex (Ferrex 150) 150 Mg Cap 150 MG PO QPM Pramipexole (Mirapex) 0.125 Mg Tab 0.125 MG PO HS, TAB Prednisone (Prednisone) 2.5 Mg Tab 2.5 MG PO QAM Sirolimus (Rapamune) 1 Mg Tab 1 MG PO QAM Venlafaxine Hcl (Effexor) 37.5 Mg Tab 1 TAB PO HS, #90 Discontinued Medications: Insulin Detemir (Levemir Flextouch) 100 Unit/Ml Inj 26 UNITS SQ DAILY Vancomycin Hcl (Vancomycin) 125 Mg Cap 1 TAB PO QID, #56 Warfarin Sodium (Warfarin Sodium) 1 Mg Tab 2.5 MG PO HS, #60 Discharge Exam Patient feeling better today, ate her breakfast, only some mild epigastric discomfort, no vomiting. Had some diarrhea this AM but it was her contrast from the small bowel follow through. Wants to go home, Dr. Roy will see in the office next week. Review of Systems: Constitutional: + fatigue, No fever, No chills, No sweats, No weight loss, No weakness, No problem reported ENT: No hearing loss, No unusual epistaxis, No nasal symptoms, No sore throat, No tinnitus, No dental problems, No trouble swallowing, No problem reported Respiratory: No cough, No sputum, No wheezing, No shortness of breath, No dyspnea on exertion, No dyspnea at rest, No hemoptysis, No problem reported Cardiovascular: No chest pain, No orthopnea, No PND, No edema, No claudication, No palpitations, No problem reported Abdomen: + pain (epigastric), + nausea, + diarrhea, No vomiting, No constipation, No GI bleeding Musculoskeletal: No joint pain, No muscle pain, No swelling, No calf pain, No problem reported Genitourinary - Female: No dysuria, No urinary frequency, No urinary urgency , No urinary incontinence Neurologic: No memory loss, No paralysis, No weakness, No numbness/tingling , No vertigo, No balance problems, No problem reported Psychiatric: No depression symptoms, No anhedonism, No anxiety, No insomnia , No substance abuse, No problem reported Endocrine: No fatigue, No excessive thirst, No excessive urination, No problem reported Hematologic / Lymphatic: No abnormal bleeding/bruising, No clotting problems , No swollen lymph nodes, No night sweats, No problem reported Integumentary: No rash, No itch, No new/changing skin lesions, No color change, No bleeding, No problem reported Physical Exam: General Appearance: WD/WN, no apparent distress Eyes: normal inspection, EOMI, sclerae normal ENT: normal ENT inspection, hearing grossly normal, pharynx normal Neck: supple, no adenopathy, no JVD, trachea midline Respiratory/Chest: chest non-tender, lungs clear, normal breath sounds, no respiratory distress, no accessory muscle use Cardiovascular: regular rate, rhythm, no edema, no gallop, no JVD, no murmur , normal peripheral pulses Abdomen / GI: normal bowel sounds, soft, no organomegaly, + tenderness ( mild epigastric) Extremities: normal inspection, no calf tenderness, normal capillary refill , no pedal edema, normal range of motion, pelvis stable 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, no motor/sensory deficits , alert, normal mood/affect, normal reflexes, oriented x 3 Skin: normal color, warm/dry, no rash Hospital Course 57 y/o F with a history of renal transplant and bilateral nephrectomy for PCKD, multiple episodes of acute pancreatitis, small bowel obstruction with bowel resection/ileostomy/reversal of ileostomy/ventral hernia repair that is recent, now with who was admitted on 02/18 for resistant cdiff colitis and acute kidney injury in the setting of CKD stage 4-5 Cdiff colitis: failed outpatient Vancomycin PO, started on Dificid on admission , actually went 48 hours without diarrhea so improved today stop IV fluids Probiotics--pt has probiotic from home that is safe in transplant pt, to bring in discussed fecal transplant, would need to discuss further as outpatient, need to involve [facility] team with this discussion d/c home on Dificid BID x 14 days, follow up with ID for further instruction on duration of therapy Epigastric pain, early satiety: no clear etiology, lipase mildly up on admission but no signs of pancreatitis Abdominal US - normal, s/p cholecystectomy Small bowel follow through - essentially normal, just some mild esophageal dysmotility appreciate GI note, plan for possible gastric emptying study to be done as outpatient symptoms better today and patient wants to go home Acute on chronic renal failure/history of PCKD/history of renal transplant and bilateral nephrectomy: Baseline cr is 3.7 with hx of renal transplant. on admission, Cr was 6.5 in the setting of diarrhea, n/v, decreased PO intake , and dehydration, likely prerenal in nature. Renal ultrasound is normal. Cr down to 3.3 today which is baseline, making adequate urine mild acidosis non-gapped, due to diarrhea, resolved with sodium bicarb -Appreciate nephrology consultation- cyclosporine and sirolimus resumed 02/[address] Roy, will follow up in office next week will eventually need a new kidney transplant Migraine headache: resolved now that she is eating better responded well to Maxalt but it did cause transient elevation in blood pressure follow up with Dr. Roy Paroxysmal Afib: This was a new diagnosis in the postoperative period when she was in the intensive care unit at [place] in December 2016. She went back into a sinus rhythm and is regular on exam here. INR is supra-therapeutic after being sub therapeutic on admission INR 3.3 today, after holding coumadin for a day, will instruct patient to hold Coumadin again today decrease dose to 2mg daily and resume on 02/24 DM: Levemir 12 units daily, diabetic diet HTN: stable, continue home meds Other: Full code Warfarin for DVT proph Total Time Spent: Greater than 30 minutes This includes examination of the patient, discharge planning, medication reconciliation, and communication with other providers. Discharge Instructions Please refer to the electronic Patient Visit Report (Discharge Instructions) for additional information. Follow-Up Dr. Roy next week Infectious disease in 1-2 weeks Additional Copies To Eugene Roy M.D.; Jennifer. Santa D.O.
[2017-02-23 12:04] VITALS: Ht 172.7 cm; Wt 71.5 kg
--- NOTE | 2017-02-23 13:23 | Medical Student: [facility] ---
Med Student Progress Note Date of Service Feb 23, 2017. Subjective Pt evaluation today including: conversation w/ patient, physical exam, chart review, lab review Pain: 2 PO Intake: good Voiding: no voiding problems Ms Tia Bowling is a 57yo female on hospital day 6 who is 16 years s/p bilateral nephrectomy and transplant secondary to polycystic kidney disease with a resolving c.diff infection refractory to vancomycin. She states the infection began while hospitalized at [facility] for an abdominal hernia repair in December, and she began treatment with vancomycin February 01. She was switched to Dificid on admission six days ago. She also presented with epigastric tenderness and slightly elevated lipase, which has since resolved, and the epigastric pain seems to have returned intermittently since resuming a normal diet yesterday. She has a history of recurrent pancreatitis. She notes nausea this morning with little help from zofran, but she has not yet vomited. She was able to eat a normal breakfast and keep her food down. Her diarrhea has resolved, although she did have a loose BM this morning. She notes it was the contrast from yesterday's GI follow through, and notes it was not green or with mucus like previous days. She does not have fever or chills. She has no migraine today but did have one last night. She took maxalt and notes high blood pressures in 160s systolic after taking it. On admission her creatinine was bumped to 6.5, now down to near her baseline at 3.3. She states she knows she needs to begin looking for a donor. She denies fever,vomiting, diarrhea, urinary difficulties, chest pain or shortness of breath. Review of Systems Constitutional: No problem reported Eyes: No problem reported ENT: No problem reported Respiratory: No problem reported Cardiac: No problem reported Abdomen: + nausea, + diarrhea (one episode this morning), No pain, No vomiting , No constipation, No GI bleeding Musculoskeletal: No problem reported Female : No problem reported Neurologic: No problem reported Psychiatric: No problem reported Heme: No problem reported Skin: No problem reported Objective Vital Signs Date Time Temp Pulse Resp B/P (MAP) Pulse Ox O2 Delivery O2 Flow Rate FiO2 02/23/17 10:36 36.9 60 16 95 Room Air 02/23/17 08:30 Room Air 02/23/17 07:25 36.9 60 16 132/80 (97) 95 Room Air 02/22/17 23:40 Room Air 02/22/17 23:28 36.8 63 16 166/97 (120) 97 Room Air 02/22/17 21:16 105 160/83 (108) 02/22/17 15:45 Room Air 02/22/17 15:18 36.8 59 16 138/76 (96) 100 Room Air Physical Exam Comments: Vitals: See above. Stable. General: Wd/wn. No acute distress. Resting comfortably. HEENT: NCAT, EOMI, PERRLA Moist mucus membranes. CV: Normal S1, S2. No MRG. RRR. Resp: Lungs clear to auscultation in upper and lower lobes bilaterally. Abdl: Soft, LUQ/epigastric tenderness. No rebound. non-distended. Active bowel sounds. No bruising Extremities: No calf tenderness. Laboratory Results Last 24 Hours Test 02/22/17 16:47 02/22/17 17:09 02/22/17 20:42 02/23/17 05:52 Bedside Glucose 61 mg/dl 70 mg/dl 95 mg/dl Prothrombin Time 36.8 SECONDS Prothromb Time International Ratio 3.3 Sodium Level 145 mmol/L Potassium Level 4.0 mmol/L Chloride Level 110 mmol/L Carbon Dioxide Level 28 mmol/L Anion Gap 7.0 mmol/L Blood Urea Nitrogen 31 mg/dl Creatinine 3.30 mg/dl Est Creatinine Clear Calc Drug Dose 18.7 ml/min Estimated GFR () 17.0 Estimated GFR (Non- 14.7 BUN/Creatinine Ratio 9.5 Random Glucose 78 mg/dl Calcium Level 9.3 mg/dl Test 02/23/17 08:12 Bedside Glucose 76 mg/dl Assessment and Plan Assessment and Plan: Ms Tia Bowling is a pleasant 57yo female 16 years s/p renal transplant with resolving vanc resistant c.diff infection. Individual assessment and plan are as follows: 1. C. diff: Resolving. Resistant to vanc. On dificid x6 days. Will continue x 2 more weeks, f/u with ID in 1-2 weeks, GI Nephrology in 2 weeks. 2. Chronic Kidney Disease: Stage IV/V ckd s/p renal transplant. 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 Creatinine has dropped nicely with hydration, back to her baseline 3.3. She will work with Dr. Roy as outpatient to begin process of finding donor. 3. Epigastric pain: Postprandial epigastric pain possibly related to pancreatitis, but lipase has been wnl. No clear clinical pattern to aid in diagnosis. Clinically sounds like cholecystitis, but gallbladder is surgically absent. Abdominal ultrasound and GI follow through non-diagnostic. Continue renal diet as tolerated. 4. Migraine: Acute, returned last night. Pt with htn on Maxalt. FERRIS resolved. 5. Non-gap metabolic acidosis: Resolved with bicarb. 6. Paroxysmal a fib: Diagnosed post-op at [facility] in December. On warfarin. INR 3.6 today. Will hold warfarin today, restart tomorrow at 2/day. Pt has been in sinus rhythm and diet is variable. 7. DVT proph: on warfarin. 8. Dispo: Continue with po dificid, hydration. Ready for discharge. Discharge planning: home, uncertain
[2017-02-24] MEDS ORDERED: INSULIN DETEMIR FLEXPEN/FLEX TOUCH 100 UNITS/ML 3ML SC SCH (09:00)
== END 2017-02-23 11:45 | disposition home or self-care (01) | DRG 372 ==
LOC: ENRESERVDT → ENRESERVTM → C.EDB 11:33 → C.MSW 15:23
PROVIDERS: ADMIT Family Medicine; ATTEND Internal Medicine
DX: A04.7 Enterocolitis due to Clostridium difficile (principal); N17.9 Acute kidney failure, unspecified; Z94.0 Kidney transplant status; N18.5 Chronic kidney disease, stage 5; I12.0 Hypertensive chronic kidney disease with stage 5 chronic kidney disease or end stage renal disease; T86.12 Kidney transplant failure; J45.909 Unspecified asthma, uncomplicated; E11.21 Type 2 diabetes mellitus with diabetic nephropathy; E86.0 Dehydration; E78.5 Hyperlipidemia, unspecified; I48.0 Paroxysmal atrial fibrillation; G43.909 Migraine, unspecified, not intractable, without status migrainosus; Z87.891 Personal history of nicotine dependence; Y83.2 Surgical operation with anastomosis, bypass or graft as the cause of abnormal reaction of the patient, or of later complication, without mention of misadventure at the time of the procedure; Y92.009 Unspecified place in unspecified non-institutional (private) residence as the place of occurrence of the external cause

== ENCOUNTER 2017-03-10 12:55 | Emergency (ER) | payer BC ==
[~2017-03-10] VITALS: Ht 174 cm; Wt 68.4 kg
[~2017-03-10 12:55] MED LIST changes: +CRG625 PO; +DFC200 PO; +EFF/375 PO; +EPGI40M INJ; +GEMF600T3 PO; +KRIL1CAP7 PO; +LVMIPEN SC; +NRV/5 PO; +ONDA4TAB9 PO; +OXYC-609 PO; +PANT40TA2 PO; +TCMD2 PO; +VANC5CAP PO; +WARF4TAB44 PO
[2017-03-10 13:00] VITALS: Ht 174 cm; Wt 68.4 kg
[2017-03-10] MEDS ORDERED: SODIUM CHLORIDE 0.9% 1000ML 1,000 ML IV STA (13:14)
[2017-03-10 13:51] LABS: BASO % 0.2 %; BASO ABS # 0.01 K/uL (0-0.2); COMPLETE YES; EOS % 1.4 %; HEMATOCRIT 37.5 % (37-47); IG% 0.5 %; LYMPH % 12.5 %; LYMPH ABS # 0.74 K/uL (1.2-3.4); MEAN CELL VOLUME 89.7 fL (80-100); MEAN CORPUSCULAR HEMOGLOBIN 28.2 pg (25-34); MEAN CORPUSCULAR HGB CONC 31.5 g/dl (32-36); MEAN PLATELET VOLUME 9.9 fL (7.4-10.4); MONO % 14.4 %; PLATELET COUNT 179 K/uL (130-400); RED BLOOD COUNT 4.18 M/uL (4.2-5.4); WHITE BLOOD COUNT 5.91 K/uL (4.8-10.8)
[2017-03-10 14:02] LABS: URINE APPEARANCE CLEAR (CLEAR); URINE BILIRUBIN NEG (NEG); URINE COLOR YELLOW; URINE EPITHELIAL CELL AUTO >30 /lpf (0-5); URINE NITRITE NEG (NEG); URINE SPECIFIC GRAVITY 1.018 (1.000-1.030); UROBILINOGEN NEG (NEG); ZZUR CULT IF INDIC CLEAN CATCH NO
[2017-03-10 14:07] LABS: MANUAL MICROSCOPIC REQUIRED? NO; REVIEW REQ? NO
[2017-03-10 14:12] LABS: INR 1.2 (0.9-1.1); PARTIAL THROMBOPLASTIN RATIO 1.2; PROTHROMBIN TIME (PATIENT) 12.9 SECONDS (9.0-12.0)
[2017-03-10 14:15] LABS: ALT/SGPT 19 U/L (12-78); BLOOD UREA NITROGEN 73 mg/dl (7-18); BUN/CREATININE RATIO 18.7 (10-20); CARBON DIOXIDE 22 mmol/L (21-32); CHLORIDE 104 mmol/L (98-107); GLUCOSE 71 mg/dl (70-99); POTASSIUM 4.2 mmol/L (3.5-5.1); SODIUM 138 mmol/L (136-145)
[2017-03-10 14:20] LABS: ALKALINE PHOSPHATASE 85 U/L (45-117); AST/SGOT 19 U/L (15-37)
[2017-03-10 14:38] VITALS: TEMP 36.7
[2017-03-10] MEDS ORDERED: INSU3INJ3 SC (14:46)
--- NOTE | 2017-03-10 16:05 | EMERGENCY ROOM VISIT NOTE ---
History Report prepared by Mason: Trevor Castaneda Under the Supervision of: Dr. Mkie Schrader D.O. First contact with patient: 13:06 Chief Complaint: FEVER Stated Complaint: TRANSPLANT PT WITH FEVER History of Present Illness The patient is a 57 year old female who presents to the Emergency Room with complaints of a persistent fever starting about 9 hours ago. Her highest temperature was 100.4 degrees Fahrenheit. She took Tylenol prior to arrival with relief. She also complains of chills and generalized body aches. She had a cloudy urine this morning. She also had some nausea this morning but denies vomiting. She is concerned about a UTI. She was referred to the Emergency Room by her chemical compounder helper. She is no longer on Coumadin. She is switching to Eliquis. She has a history of kidney transplant. She had some left flank pain last night but currently denies any abdominal pain. She denies cough, sore throat, runny nose, congestion, or any other complaints. She has a reduced appetite and fluid intake since her abdominal surgery on January 18. She also recently had C-Diff. She continues to have diarrhea about 2-5 times a day. She is now on her third round of antibiotics. Source of History: patient Onset: about 9 hours ago Position: other (global) Symptom Intensity: 100.4 degrees Fahrenheit Quality: other (fever) Timing: other (persistent) Modifying Factors (Relieving): tylenol (with relief) Associated Symptoms: + chills, + nausea, + diarrhea, + urinary symptoms, No sorethroat, No cough, No vomiting, No abdominal pain Review of Systems See HPI for pertinent positives & negatives. A total of 10 systems reviewed and were otherwise negative. Past Medical & Surgical Medical Problems: (1) Abdominal pain (2) Abdominal pain (3) Acute renal insufficiency (4) Asthma, Unspecified (5) Chronic Kidney Disease, Stage Iv (Severe) (6) Clostridium difficile diarrhea (7) Diab Raeann Wo Compl, Type Ii Or Unspec Type, Uncontrolled (8) HTN (hypertension) (9) Hyperlipidemia Nec/Nos (10) Immunosuppressed status (11) Pancreatitis (12) Polycystic Kidney, Unspecified Type (13) SBO (small bowel obstruction) (14) SIRS (systemic inflammatory response syndrome) Surgical Problems: (1) Kidney transplant recipient (2) Kidney Transplant Status Family History Kidney disease Kidney stones Social History Smoking Status: Never Smoker Alcohol Use: none Drug Use: none Marital Status: Housing Status: lives with family Occupation Status: employed Current/Historical Medications Scheduled Amlodipine Besylate (Amlodipine Besylate), 1 TAB PO DAILY Azelastine HCl (Azelastine HCl), 1 SPRAYS АНДРЕЙ DAILY Biotin (Biotin 5000), 5,000 MCG PO QAM Calcium W/ Vitamins D & K (Calcium + D + K), 1 TABLET PO MWF Carvedilol (Carvedilol), 2 TAB PO QAM Cyclosporine (Sandimmune), 75 MG PO BID Estrogens, Conjugated (Premarin), 0.625 MG PO 2XWK Fidaxomicin (Dificid), 200 MG PO BID Insulin Detemir (Levemir Flextouch), 20 UNITS SC PM Krill Oil (Krill Oil [place]-3), 2 TAB PO DAILY Multivitamin (Multivitamin), 1 TAB PO QAM Ondansetron (Ondansetron HCl), 1 TAB PO BID Oxycodone HCl (Oxycodone HCl), 1 TAB PO Q6H Pantoprazole (Pantoprazole Sodium), 1 TAB PO DAILY Polysaccharide Iron Complex (Ferrex 150), 150 MG PO QPM Pramipexole (Mirapex), 0.125 MG PO HS Prednisone (Prednisone), 2.5 MG PO QAM Sirolimus (Rapamune), 1 MG PO QAM Venlafaxine Hcl (Effexor), 1 TAB PO HS Miscellaneous Medications Epoetin Kvng (Procrit), 1 DOSE INJ Allergies Coded Allergies: Iodinated Diagnostic Agents (Verified Allergy, Severe, Hx Kidney Transplant, 03/10/17) Statins (Verified Allergy, Severe, "PANCREATITIS", 03/10/17) Hydrochlorothiazide (Verified Allergy, Mild, 03/10/17) Sulfa Antibiotics (Verified Allergy, Mild, ., 03/10/17) Sumatriptan (Verified Allergy, Mild, 03/10/17) Triamterene (Verified Allergy, Mild, 03/10/17) Atorvastatin (Verified Allergy, Unknown, ?, 03/10/17) Doxycycline (Verified Allergy, Unknown, UNKNOWN, 03/10/17) Levofloxacin (Verified Allergy, Unknown, joint pain, 03/10/17) Adhesives (Verified Adverse Reaction, Unknown, SKIN TEAR, 03/10/17) Ciprofloxacin (Verified Adverse Reaction, Unknown, FATIGUE, 03/10/17) Morphine (Verified Adverse Reaction, Unknown, INEFFECTIVE, 03/10/17) Physical Exam Vital Signs Date Time Temp Pulse Resp B/P (MAP) Pulse Ox O2 Delivery O2 Flow Rate FiO2 03/10/17 14:42 69 03/10/17 14:38 36.7 62 18 158/80 99 Room Air 03/10/17 13:00 36.7 73 17 127/80 97 Room Air Physical Exam CONSTITUTIONAL/VITAL SIGNS: Reviewed / noted above. GENERAL: Non-toxic in appearance. INTEGUMENTARY: Warm, dry, and [place]. HEAD: Normocephalic. EYES: without scleral icterus or trauma. ENT/OROPHARYNX: clear and moist. LYMPHADENOPATHY/NECK: Is supple without lymphadenopathy or meningismus. RESPIRATORY: Lungs clear and equal. CARDIOVASCULAR: Regular rate and rhythm. GI/ABDOMEN: Soft and nontender. No organomegaly or pulsatile mass. No rebound or guarding. Normal bowel sounds. EXTREMITIES: Warm and well perfused. BACK: No CVA tenderness. NEUROLOGICAL: Intact without focal deficits. PSYCHIATRIC: normal affect. MUSCULOSKELETAL: Normally developed with good muscle tone. Medical Decision & Procedures Laboratory Results 03/10/17 13:30 Red Blood Count 4.18, Mean Corpuscular Volume 89.7, Mean Corpuscular Hemoglobin 28.2, Mean Corpuscular Hemoglobin Concent 31.5, Mean Platelet Volume 9.9, Neutrophils (%) (Auto) 71.0, Lymphocytes (%) (Auto) 12.5, Monocytes (%) (Auto) 14.4, Eosinophils (%) (Auto) 1.4, Basophils (%) (Auto) 0.2, Neutrophils # (Auto ) 4.20, Lymphocytes # (Auto) 0.74, Monocytes # (Auto) 0.85, Eosinophils # (Auto ) 0.08, Basophils # (Auto) 0.01 03/10/17 13:30 Test 03/10/17 13:30 White Blood Count 5.91 K/uL (4.8-10.8) Red Blood Count 4.18 M/uL (4.2-5.4) Hemoglobin 11.8 g/dL (12.0-16.0) Hematocrit 37.5 % (37-47) Mean Corpuscular Volume 89.7 fL (80-100) Mean Corpuscular Hemoglobin 28.2 pg (25-34) Mean Corpuscular Hemoglobin Concent 31.5 g/dl (32-36) Platelet Count 179 K/uL (130-400) Mean Platelet Volume 9.9 fL (7.4-10.4) Neutrophils (%) (Auto) 71.0 % Lymphocytes (%) (Auto) 12.5 % Monocytes (%) (Auto) 14.4 % Eosinophils (%) (Auto) 1.4 % Basophils (%) (Auto) 0.2 % Neutrophils # (Auto) 4.20 K/uL (1.4-6.5) Lymphocytes # (Auto) 0.74 K/uL (1.2-3.4) Monocytes # (Auto) 0.85 K/uL (0.11-0.59) Eosinophils # (Auto) 0.08 K/uL (0-0.5) Basophils # (Auto) 0.01 K/uL (0-0.2) RDW Standard Deviation 61.5 fL (36.4-46.3) RDW Coefficient of Variation 18.6 % (11.5-14.5) Immature Granulocyte % (Auto) 0.5 % Immature Granulocyte # (Auto) 0.03 K/uL (0.00-0.02) Prothrombin Time 12.9 SECONDS (9.0-12.0) Prothromb Time International Ratio 1.2 (0.9-1.1) Activated Partial Thromboplast Time 31.5 SECONDS (21.0-31.0) Partial Thromboplastin Ratio 1.2 Urine Color YELLOW Urine Appearance CLEAR (CLEAR) Urine pH 5.0 (4.5-7.5) Urine Specific [place] 1.018 (1.000-1.030) Urine Protein NEG (NEG) Urine Glucose (UA) NEG (NEG) Urine Ketones NEG (NEG) Urine Occult Blood NEG (NEG) Urine Nitrite NEG (NEG) Urine Bilirubin NEG (NEG) Urine Urobilinogen NEG (NEG) Urine Leukocyte Esterase NEG (NEG) Urine WBC (Auto) 1-5 /hpf (0-5) Urine RBC (Auto) 0-4 /hpf (0-4) Urine Hyaline Casts (Auto) 1-5 /lpf (0-5) Urine Epithelial Cells (Auto) >30 /lpf (0-5) Urine Bacteria (Auto) NEG (NEG) Anion Gap 12.0 mmol/L (3-11) Est Creatinine Clear Calc Drug Dose 16.1 ml/min Estimated GFR () 13.9 Estimated GFR (Non- 12.0 BUN/Creatinine Ratio 18.7 (10-20) Total Bilirubin 1.2 mg/dl (0.2-1) Direct Bilirubin 0.3 mg/dl (0-0.2) Aspartate Amino Transf (AST/SGOT) 19 U/L (15-37) Alanine Aminotransferase (ALT/SGPT) 19 U/L (12-78) Alkaline Phosphatase 85 U/L (45-117) Total Creatine Kinase 41 U/L (26-192) Creatine Kinase MB < 0.5 ng/ml (0.5-3.6) Creatine Kinase MB Ratio (0-3.0) Total Protein 7.4 gm/dl (6.4-8.2) Albumin 3.3 gm/dl (3.4-5.0) Laboratory results as stated above per my review. Medications Administered Medications (Trade) Dose Ordered Sig/Dominique Route Start Time Stop Time Status Last Admin Dose Admin Sodium Chloride 1,000 ml @ 999 mls/hr Q1H1M STAT IV 03/10/17 13:14 03/10/17 14:14 DC 03/10/17 13:14 999 MLS/HR ED Course 1306: Previous medical records were reviewed. The patient was evaluated in room B05. A complete history and physical examination was performed. 1314: Sodium Chloride 1000 ml @ 999 mls/hr IV 1553: On reevaluation, the patient is resting comfortably. I discussed the results and findings with the patient. She verbalized agreement of the treatment plan. She was discharged home. 1554: I discussed the patient's case with Dr. Roy, chemical compounder helper with [facility]. Medical Decision Differential includes viral illness, influenza, streptococcal pharyngitis, meningitis, pneumonia, sinusitis, UTI, pyelonephritis, otitis media. Medication Reconciliation: I attest that I have personally reviewed the patient' s current medication list. Patient was found to have a slightly elevated blood pressure due to circumstances. I do not believe that the patient requires hypertension monitoring. This is a 57-year-old female who presents to the ED with a chief complaint of fever. The patient states that she had a fever of 100.4 this morning. She is afebrile here today. She did take some Tylenol. She states that her symptoms started around 4 AM this morning. She has been having some chills as well as body aches. She reports having C. difficile colitis and has been having diarrhea anywhere from 2-5 times per day. She is currently on Dificid. She is on her second round of this. The patient was sent here for evaluation for fever. She denies any upper respiratory symptoms. She denies any vomiting. No abdominal pains, chest pains or pains of her kidney. The patient is a kidney transplant patient. Her exam is relatively unremarkable. She is in no distress. Her CBC was normal. INR is 1.2. She is currently being transferred over from [facility] to [facility]. She is starting that tonight. The patient has a BUN of 73 and a creatinine of 3.9. Previous laboratory studies showed a BUN of 31 and a creatinine of 3.3. Urine did not show infection. The patient was hydrated with a liter of normal saline IV. I spoke with Dr. Roy about the patient. The patient will be discharged and follow up with him next week. Consults Time Called: [phone] Consulting Physician: Dr. Roy, chemical compounder helper with [facility] Returned Call: [phone] I discussed the patient's case with Dr. Roy, chemical compounder helper with [facility]. Impression Primary Impression: Dehydration Additional Impressions: History of fever Prerenal renal failure Scribe Attestation The scribe's documentation has been prepared under my direction and personally reviewed by me in its entirety. I confirm that the note above accurately reflects all work, treatment, procedures, and medical decision making performed by me. Departure Information Dispostion Home / Self-Care Referrals Shruthi Mcbride D.O. (PCP) Forms HOME CARE DOCUMENTATION FORM, IMPORTANT VISIT INFORMATION Patient Instructions My [facility] Additional Instructions Drink frequent sips of fluids to avoid dehydration. Follow-up with your doctors next week for recheck. Return for any concerns or worsening. Problem Qualifiers
[2017-03-10 16:36] VITALS: BP 127/70; PULSE 56; O2SAT 99
[2017-03-10 17:04] LABS: CALCIUM 9.1 mg/dl (8.5-10.1)
[2017-06-26] MEDS ORDERED: DFC200 PO (11:03)
[2017-06-26] MEDS ORDERED: CEFD300C3 PO (11:03)
[2017-06-26] MEDS ORDERED: FRCT/ PO (11:08)
== END 2017-03-10 16:47 | disposition home or self-care (01) ==
LOC: C.EDB 12:56
DX: E86.0 Dehydration (principal); R50.9 Fever, unspecified; N19 Unspecified kidney failure; Z94.0 Kidney transplant status; J45.909 Unspecified asthma, uncomplicated; E11.9 Type 2 diabetes mellitus without complications; I12.9 Hypertensive chronic kidney disease with stage 1 through stage 4 chronic kidney disease, or unspecified chronic kidney disease; E78.5 Hyperlipidemia, unspecified; Z84.1 Family history of disorders of kidney and ureter; Z79.899 Other long term (current) drug therapy

== ENCOUNTER → 2017-03-13 | Outpatient (CLI) | payer BC ==
[~2017-03-13] MED LIST changes: -AMT100 PO; -APDI SQ; -CARV6.252 PO; +CEFD300C3 PO; -CETI10TA84 PO; +CYCL1CAP22 PO; +FIDA1TAB PO; +FRCT/ PO; -GEMF600T3 PO; +INSU3INJ3 SC; -INSU3INJ3 SQ; -LVMIPEN SC; -MAGN250T3 PO; -MONT1TAB5 PO; +NRL25 PO; -RHNAQIN NAE; -TCMD2 PO; -TRAM-10 PO; -VANC5CAP PO; -VENL75CA73 PO; -WARF4TAB44 PO
--- NOTE | 2017-03-13 14:17 | DIAGNOSTIC IMAGING REPORT ---
CHEST 2 VIEWS ROUTINE CLINICAL HISTORY: R07.1 Chest pain on [id number] dyspnea COMPARISON STUDY: 02/18/2017 FINDINGS: Lungs are considered clear. Slight chronic blunting left lateral costophrenic angle. Trace blunting right lateral calcific angle. Bilateral calcified breast implants. IMPRESSION: Chronic change. Trace pleural fluid lateral costophrenic angles. Otherwise negative study. Electronically signed by: Jonas Deluca M.D. 03/13/2017 2:16 PM Dictated Date/Time: 03/13/2017 2:14 PM
== END | disposition home or self-care (01) ==
LOC: C.RAD1850 14:01
PROVIDERS: ATTEND Physician Assistant
DX: R07.1 Chest pain on breathing (principal)

== ENCOUNTER → 2017-03-15 | Outpatient (CLI) | payer BC ==
[2017-03-15 13:36] LABS: PATIENT HEIGHT 172.7 cm
[2017-03-16 05:07] LABS: CREATININE 3.8 mg/dl (0.6-1.2)
== END | disposition home or self-care (01) ==
LOC: C.LAB1850 13:10
PROVIDERS: ATTEND Physician Assistant
DX: N28.9 Disorder of kidney and ureter, unspecified (principal)

== ENCOUNTER 2017-04-10 22:30 | Inpatient (IN) | payer BC ==
[~2017-04-10] VITALS: Ht 172.7 cm; Wt 68.9 kg
[~2017-04-10 22:30] MED LIST changes: -CEFD300C3 PO; -CYCL1CAP22 PO; -FIDA1TAB PO; -FRCT/ PO; -NRL25 PO; -PANT40TA2 PO; +PRT/40 PO
[2017-04-10] MEDS ORDERED: HYDROmorphone INJ 0.5 MG/0.5 ML SYR IV STA (22:51)
[2017-04-10] MEDS ORDERED: SODIUM CHLORIDE 0.9% 1000ML 1,000 ML IV STA ×2 (22:51)
[2017-04-10] MEDS ORDERED: ONDANSETRON INJ 2 MG/ML 2 ML VIAL IV STA (22:51)
[2017-04-10] MEDS ORDERED: FIDA1TAB PO (23:14)
[2017-04-10 23:30] LABS: COMPLETE YES; EOS % 0.8 %; HEMATOCRIT 45.5 % (37-47); IG% 0.3 %; LYMPH % 16.2 %; LYMPH ABS # 1.26 K/uL (1.2-3.4); MEAN CELL VOLUME 85.8 fL (80-100); MEAN CORPUSCULAR HEMOGLOBIN 27.9 pg (25-34); MEAN CORPUSCULAR HGB CONC 32.5 g/dl (32-36); MEAN PLATELET VOLUME 9.7 fL (7.4-10.4); MONO % 3.9 %; NEUT % 78.8 %; PLATELET COUNT 252 K/uL (130-400); WHITE BLOOD COUNT 7.78 K/uL (4.8-10.8)
[2017-04-10 23:44] LABS: PARTIAL THROMBOPLASTIN RATIO 0.9; PROTHROMBIN TIME (PATIENT) 10.3 SECONDS (9.0-12.0)
[2017-04-10 23:49] LABS: ALT/SGPT 25 U/L (12-78); BLOOD UREA NITROGEN 104 mg/dl (7-18); BUN/CREATININE RATIO 26.7 (10-20); CALCIUM 10.6 mg/dl (8.5-10.1); CARBON DIOXIDE 25 mmol/L (21-32); CHLORIDE 100 mmol/L (98-107); GLUCOSE 68 mg/dl (70-99); POTASSIUM 4.1 mmol/L (3.5-5.1); SODIUM 136 mmol/L (136-145)
[2017-04-10 23:53] LABS: ALB/GLOB RATIO 0.9 (0.9-2); ALKALINE PHOSPHATASE 89 U/L (45-117); AST/SGOT 21 U/L (15-37)
[2017-04-11] MEDS ORDERED: DiphenhydrAMINE HCL 50 MG/ML VIAL IV STA (00:18)
[2017-04-11] MEDS ORDERED: PROCHLORPERAZINE 5 MG/ML 2 ML VIAL IV STA (00:18)
[2017-04-11] MEDS ORDERED: HYDROmorphone INJ 0.5 MG/0.5 ML SYR IV STA (00:18)
--- NOTE | 2017-04-11 01:54 | EMERGENCY ROOM VISIT NOTE ---
History First contact with patient: 22:47 Chief Complaint: GI ASSESSMENT Stated Complaint: BLOCKED BOWELS Nursing Triage Summary: Pt c/o generalized abd pain, n/v. Ongoing since 1600. Hx bowel obstruction and colon surgery. Hernia surgery in December History of Present Illness The patient is a 57 year old female who presents to the Emergency Room with complaints of nausea, vomiting and upper abdominal pain since 4 PM. Patient is a history of bowel obstructions and symptoms for similar. She is currently being treated for C. difficile for the past 2 months. Pain currently 8 out of 10. Nothing makes it better or worse. She is a history of renal failure and creatinine is normal at 3.8. Patient denies chest pain, dyspnea, fever, chills , diarrhea, back pain, urinary symptoms. Review of Systems See HPI for pertinent positives & negatives. A total of 10 systems reviewed and were otherwise negative. Past Medical/Surgical History Medical Problems: (1) Abdominal pain (2) Abdominal pain (3) Acute renal insufficiency (4) Asthma, Unspecified (5) Chronic Kidney Disease, Stage Iv (Severe) (6) Clostridium difficile diarrhea (7) Diab Raeann Wo Compl, Type Ii Or Unspec Type, Uncontrolled (8) HTN (hypertension) (9) Hyperlipidemia Nec/Nos (10) Immunosuppressed status (11) Pancreatitis (12) Polycystic Kidney, Unspecified Type (13) SBO (small bowel obstruction) (14) SIRS (systemic inflammatory response syndrome) Surgical Problems: (1) Kidney transplant recipient (2) Kidney Transplant Status Family History Kidney disease Kidney stones Social History Smoking Status: Never Smoker Alcohol Use: none Drug Use: none Marital Status: Housing Status: lives with family Occupation Status: employed Current/Historical Medications Scheduled Amlodipine Besylate (Amlodipine Besylate), 1 TAB PO DAILY Azelastine HCl (Azelastine HCl), 1 SPRAYS АНДРЕЙ DAILY Biotin (Biotin 5000), 5,000 MCG PO QAM Calcium W/ Vitamins D & K (Calcium + D + K), 1 TABLET PO MWF Carvedilol (Carvedilol), 2 TAB PO QAM Cyclosporine (Sandimmune), 75 MG PO BID Estrogens, Conjugated (Premarin), 0.625 MG PO 2XWK Fidaxomicin (Dificid), 200 MG PO BID Insulin Detemir (Levemir Flextouch), 20 UNITS SC PM Krill Oil (Krill Oil [place]-3), 2 TAB PO DAILY Multivitamin (Multivitamin), 1 TAB PO QAM Ondansetron (Ondansetron HCl), 1 TAB PO BID Oxycodone HCl (Oxycodone HCl), 1 TAB PO Q6H Pantoprazole (Pantoprazole Sodium), 1 TAB PO DAILY Polysaccharide Iron Complex (Ferrex 150), 150 MG PO QPM Pramipexole (Mirapex), 0.125 MG PO HS Prednisone (Prednisone), 2.5 MG PO QAM Sirolimus (Rapamune), 1 MG PO QAM Venlafaxine Hcl (Effexor), 1 TAB PO HS Miscellaneous Medications Epoetin Kvng (Procrit), 1 DOSE INJ Allergies Coded Allergies: Iodinated Diagnostic Agents (Verified Allergy, Severe, Hx Kidney Transplant, 04/10/17) Statins (Verified Allergy, Severe, "PANCREATITIS", 04/10/17) Hydrochlorothiazide (Verified Allergy, Mild, 04/10/17) Sulfa Antibiotics (Verified Allergy, Mild, ., 04/10/17) Sumatriptan (Verified Allergy, Mild, 04/10/17) Triamterene (Verified Allergy, Mild, 04/10/17) Atorvastatin (Verified Allergy, Unknown, ?, 04/10/17) Doxycycline (Verified Allergy, Unknown, UNKNOWN, 04/10/17) Levofloxacin (Verified Allergy, Unknown, joint pain, 04/10/17) Adhesives (Verified Adverse Reaction, Unknown, SKIN TEAR, 04/10/17) Ciprofloxacin (Verified Adverse Reaction, Unknown, FATIGUE, 04/10/17) Morphine (Verified Adverse Reaction, Unknown, INEFFECTIVE, 04/10/17) Physical Exam Vital Signs Date Time Temp Pulse Resp B/P (MAP) Pulse Ox O2 Delivery O2 Flow Rate FiO2 04/11/17 00:26 78 16 137/75 98 Room Air 04/10/17 23:22 68 04/10/17 23:07 97 Room Air 04/10/17 22:44 36.4 65 22 146/82 100 Room Air Physical Exam VITALS: Vitals are noted on the nurse's note and reviewed by myself. Vital signs stable. GENERAL: Female actively vomiting who appears in pain SKIN: The skin was without rashes, erythema, edema, or bruising. There is no tenting of the skin. Capillary reflex less than 2 seconds. HEAD: Normocephalic atraumatic. EARS: External auditory canals clear, tympanic membranes pearly hooks without erythema or effusion bilaterally. EYES: Pupils equal round and reactive to light and accommodation. Conjunctivae without injection, sclerae without icterus. Extraocular movements intact. NOSE: Patent, turbinates without inflammation or discharge. MOUTH: Mucous membranes mildly dry. Pharynx without erythema or exudate. Uvula midline. Airway patent. Tongue does not deviate. NECK: Supple without nuchal rigidity. No lymphadenopathy. No thyromegaly. Cervical spine is nontender. No JVD. HEART: Regular rate and rhythm without murmurs gallops or rubs. LUNGS: Clear to auscultation bilaterally without wheezes, rales or rhonchi. No dullness to percussion. No retractions or accessory muscle use. ABDOMEN: Positive bowel sounds x 4. Normal tympanic percussion. Soft, tender to palpation upper abdomen, without masses or organomegaly. Iqbal sign negative. No guarding or rebound tenderness. No CVA tenderness MUSCULOSKELETAL: No muscle atrophy, erythema, or edema noted. NEURO: Patient was alert and oriented to person place and time. Normal sensation to light and sharp touch. No focal neurological deficits. Medical Decision & Procedures Laboratory Results 04/10/17 23:10 Red Blood Count 5.30, Mean Corpuscular Volume 85.8, Mean Corpuscular Hemoglobin 27.9, Mean Corpuscular Hemoglobin Concent 32.5, Mean Platelet Volume 9.7, Neutrophils (%) (Auto) 78.8, Lymphocytes (%) (Auto) 16.2, Monocytes (%) (Auto) 3.9, Eosinophils (%) (Auto) 0.8, Basophils (%) (Auto) 0.0, Neutrophils # (Auto) 6.14, Lymphocytes # (Auto) 1.26, Monocytes # (Auto) 0.30, Eosinophils # (Auto) 0.06, Basophils # (Auto) 0.00 04/10/17 23:10 Test 04/10/17 23:10 04/10/17 23:13 White Blood Count 7.78 K/uL (4.8-10.8) Red Blood Count 5.30 M/uL (4.2-5.4) Hemoglobin 14.8 g/dL (12.0-16.0) Hematocrit 45.5 % (37-47) Mean Corpuscular Volume 85.8 fL (80-100) Mean Corpuscular Hemoglobin 27.9 pg (25-34) Mean Corpuscular Hemoglobin Concent 32.5 g/dl (32-36) Platelet Count 252 K/uL (130-400) Mean Platelet Volume 9.7 fL (7.4-10.4) Neutrophils (%) (Auto) 78.8 % Lymphocytes (%) (Auto) 16.2 % Monocytes (%) (Auto) 3.9 % Eosinophils (%) (Auto) 0.8 % Basophils (%) (Auto) 0.0 % Neutrophils # (Auto) 6.14 K/uL (1.4-6.5) Lymphocytes # (Auto) 1.26 K/uL (1.2-3.4) Monocytes # (Auto) 0.30 K/uL (0.11-0.59) Eosinophils # (Auto) 0.06 K/uL (0-0.5) Basophils # (Auto) 0.00 K/uL (0-0.2) RDW Standard Deviation 57.4 fL (36.4-46.3) RDW Coefficient of Variation 18.3 % (11.5-14.5) Immature Granulocyte % (Auto) 0.3 % Immature Granulocyte # (Auto) 0.02 K/uL (0.00-0.02) Prothrombin Time 10.3 SECONDS (9.0-12.0) Prothromb Time International Ratio 1.0 (0.9-1.1) Activated Partial Thromboplast Time 24.5 SECONDS (21.0-31.0) Partial Thromboplastin Ratio 0.9 Anion Gap 11.0 mmol/L (3-11) Est Creatinine Clear Calc Drug Dose 15.9 ml/min Estimated GFR () 13.9 Estimated GFR (Non- 12.0 BUN/Creatinine Ratio 26.7 (10-20) Calcium Level 10.6 mg/dl (8.5-10.1) Total Bilirubin 0.7 mg/dl (0.2-1) Aspartate Amino Transf (AST/SGOT) 21 U/L (15-37) Alanine Aminotransferase (ALT/SGPT) 25 U/L (12-78) Alkaline Phosphatase 89 U/L (45-117) Troponin I < 0.015 ng/ml (0-0.045) Total Protein 8.8 gm/dl (6.4-8.2) Albumin 4.1 gm/dl (3.4-5.0) Globulin 4.7 gm/dl (2.5-4.0) Albumin/Globulin Ratio 0.9 (0.9-2) Lipase 766 U/L (73-393) Bedside Troponin I < 0.030 ng/ml (0-0.045) Medications Administered Medications (Trade) Dose Ordered Sig/Dominique Route Start Time Stop Time Status Last Admin Dose Admin Sodium Chloride 1,000 ml @ 999 mls/hr Q1H1M STAT IV 04/10/17 22:51 04/10/17 23:51 DC 04/11/17 00:30 999 MLS/HR Hydromorphone HCl (Dilaudid Inj) 0.5 mg NOW STAT IV 04/10/17 22:51 04/10/17 22:54 DC 04/10/17 23:43 0.5 MG Ondansetron HCl (Zofran Inj) 4 mg NOW STAT IV 04/10/17 22:51 04/10/17 22:54 DC 04/10/17 23:42 4 MG Prochlorperazine Edisylate (Compazine Inj) 10 mg NOW STAT IV 04/11/17 00:18 04/11/17 00:19 DC 04/11/17 00:30 10 MG Diphenhydramine HCl (Benadryl Inj) 12.5 mg NOW STAT IV 04/11/17 00:18 04/11/17 00:19 DC 04/11/17 00:29 12.5 MG Hydromorphone HCl (Dilaudid Inj) 0.5 mg NOW STAT IV 04/11/17 00:18 04/11/17 00:19 DC 04/11/17 00:30 0.5 MG ED Course Prior records/ancillary studies reviewed. Triage Nursing notes reviewed. Additional history obtained from family. The patient's history was concerning for abdominal pain. Differential diagnosis: Etiologies such as appendicitis, diverticulitis, PUD, biliary pathology, UTI, pancreatitis, obstruction, mesenteric ischemia, aortic pathology, infections, inflammatory bowel disease, renal colic, as well as others were entertained. Physical examination findings: As above. ER treatment provided: Dilaudid, Zofran, Reglan, Benadryl, IV fluids On reassessment the patient felt better. Diagnostics interpreted by me: ECG: Normal sinus, normal intervals, occasional PVC, no acute ST-T wave changes. Impression normal sinus rhythm with PVCs interpreted by myself The labs revealed stable H&H Elevated lactic acid Imaging studies: DT concerning for bowel obstruction Acute abdominal series with fluid levels present. No pneumothorax or free air. Per minute interpretation. Consultation: A consultation was placed with the surgeon, Dr. Herbert and recommends medical admission with NG tube. Patient refuses NG tube. I spoke to medicine, Dr. Li and will evaluate the patient. The case was discussed and diagnostics were reviewed. The patient was evaluated in the ER for further treatment. Exam and history seem consistent with small bowel obstruction which is recurrent. Patient uses NG tube. I did inform this patient that this would be helpful for her symptoms and still is adamant that she does not want one. I did inform medicine and surgery of this. Patient is agreeable to treatment plan of admission. She was hydrated as above and pain was managed.By the evaluation outlined above emergent etiologies such as appendicitis, diverticulitis, PUD, biliary pathology, UTI, pancreatitis, mesenteric ischemia , aortic pathology, infections, inflammatory bowel disease, renal colic, as well as others were deemed relatively unlikely. The pt informed about the findings as listed above. All questions were answered and pleased with the treatment. Case reviewed with my attending Medical Decision as above Impression Primary Impression: SBO (small bowel obstruction) Departure Information Dispostion Being Evaluated By Hospitalist Condition FAIR Referrals Shruthi Mcbride D.O. (PCP) Patient Instructions My [facility]
[2017-04-11] MEDS: SODIUM CHLORIDE 0.9% 1000ML 1,000 ML IV SCH ×2 (02:30→10:53)
--- NOTE | 2017-04-11 03:00 | History and Physical ---
History & Physical Date & Time of Service: Apr 11, 2017 at 02:58 Chief Complaint: Blocked Bowels Primary Care Physician: Shruthi Mcbride D.O. 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 A CT of the abdomen was obtained in the ER revealing an SBO. The pt has not previously required surgery for this. She has declined an NGT in the ER. The surgical service were notified of the CT findings. The pt is currently being treated for C diff with Dificid which is slated to continue until she has a fecal transplant. Her renal function has deteriorated gradually over the past few years and she is currently awaiting another transplant. Past Medical/Surgical History 1) CKD 4 2) PCKD leading to ESRD - pt was on peritoneal dialysis prior to a renal transplant performed in 1999. Her graft has recently been failing and she is currently trying to secure an additional transplant. 3) IDDM 4) Recurrent pancreatitis - was attributed to Statin use however she may have had recurrence following discontinuation 5) Recurrent SBO 6) Recurrent C diff 7) Recurrent sinusitis 8) Diverticulitis with abscess 9) HTN 10) Hypertriglyceridemia Surgical 1) B/L nephrectomy 2) Mutiple abdominal hernia surgeries 3) Segmental colectomy 4) Renal transplant 5) Family History Kidney disease Kidney stones Mother - heart disease Father alive - age 92 - COPD Social History Does not drink or smoke - lives with family Smoking Status: Never Smoker Drug Use: none Marital Status: Housing status: lives with family Occupational Status: employed Immunizations History of Influenza Vaccine: Yes Influenza Vaccine Date: Jul 11, 2012 History of Tetanus Vaccine?: Yes History of Pneumococcal: Yes History of Hepatitis B Vaccine: Yes Hepatitis Immunization Date: February 09, 2008 Multi-Drug Resistant Organisms History of MDRO: Yes Type of MDRO: MRSA Allergies Coded Allergies: Iodinated Diagnostic Agents (Verified Allergy, Severe, Hx Kidney Transplant, 04/10/17) Statins (Verified Allergy, Severe, "PANCREATITIS", 04/10/17) Hydrochlorothiazide (Verified Allergy, Mild, 04/10/17) Sulfa Antibiotics (Verified Allergy, Mild, ., 04/10/17) Sumatriptan (Verified Allergy, Mild, 04/10/17) Triamterene (Verified Allergy, Mild, 04/10/17) Atorvastatin (Verified Allergy, Unknown, ?, 04/10/17) Doxycycline (Verified Allergy, Unknown, UNKNOWN, 04/10/17) Levofloxacin (Verified Allergy, Unknown, joint pain, 04/10/17) Adhesives (Verified Adverse Reaction, Unknown, SKIN TEAR, 04/10/17) Ciprofloxacin (Verified Adverse Reaction, Unknown, FATIGUE, 04/10/17) Morphine (Verified Adverse Reaction, Unknown, INEFFECTIVE, 04/10/17) Home Medications Scheduled Amlodipine Besylate (Amlodipine Besylate), 1 TAB PO DAILY Azelastine HCl (Azelastine HCl), 1 SPRAYS АНДРЕЙ DAILY Biotin (Biotin 5000), 5,000 MCG PO QAM Calcium W/ Vitamins D & K (Calcium + D + K), 1 TABLET PO MWF Carvedilol (Carvedilol), 2 TAB PO QAM Cyclosporine (Sandimmune), 75 MG PO BID Estrogens, Conjugated (Premarin), 0.625 MG PO 2XWK Fidaxomicin (Dificid), 200 MG PO BID Insulin Detemir (Levemir Flextouch), 20 UNITS SC PM Krill Oil (Krill Oil Cavalier-3), 2 TAB PO DAILY Multivitamin (Multivitamin), 1 TAB PO QAM Ondansetron (Ondansetron HCl), 1 TAB PO BID Oxycodone HCl (Oxycodone HCl), 1 TAB PO Q6H Pantoprazole (Pantoprazole Sodium), 1 TAB PO DAILY Polysaccharide Iron Complex (Ferrex 150), 150 MG PO QPM Pramipexole (Mirapex), 0.125 MG PO HS Prednisone (Prednisone), 2.5 MG PO QAM Sirolimus (Rapamune), 1 MG PO QAM Venlafaxine Hcl (Effexor), 1 TAB PO HS Miscellaneous Medications Epoetin Kvng (Procrit), 1 DOSE INJ Review of Systems Constitutional: No fever, No chills, No sweats Eyes: No worsening of vision ENT: No hearing loss, No unusual epistaxis, No nasal symptoms Respiratory: No cough, No sputum, No wheezing Cardiovascular: No chest pain, No orthopnea, No PND Abdomen: + pain, + nausea, + vomiting, No diarrhea Musculoskeletal: No joint pain Genitourinary - Female: No dysuria, No urinary frequency, No urinary urgency Neurologic: No memory loss, No paralysis, No weakness Psychiatric: No depression symptoms Endocrine: No fatigue Hematologic / Lymphatic: No abnormal bleeding/bruising Integumentary: No rash Allergic / Immunologic: No environmental allergies Physical Exam Vital Signs Date Time Temp Pulse Resp B/P (MAP) Pulse Ox O2 Delivery O2 Flow Rate FiO2 04/11/17 02:54 81 16 137/72 98 04/11/17 02:30 81 16 137/72 98 Room Air 04/11/17 00:26 36.5 78 16 137/75 98 Room Air 04/10/17 23:22 68 04/10/17 23:07 97 Room Air 04/10/17 22:44 36.4 65 22 146/82 100 Room Air General Appearance: WD/WN, no apparent distress Head: normocephalic Eyes: normal inspection ENT: normal ENT inspection, pharynx normal Neck: supple, no JVD Respiratory/Chest: chest non-tender, lungs clear, normal breath sounds Cardiovascular: regular rate, rhythm, no edema, no gallop, no JVD, no murmur, normal peripheral pulses Abdomen/GI: + tenderness, + abnormal bowel sounds, + distended, + pertinent finding (Abdomen is diffusely tender - no guarding is present) Back: normal inspection, no CVA tenderness, no muscle spasm, normal range of motion Extremities/Musculoskelatal: normal inspection, no calf tenderness, normal capillary refill 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, no motor/sensory deficits, alert, normal mood/affect, normal reflexes, oriented x 3 Skin: normal color, warm/dry, no rash Diagnostics Laboratory Results Results Past 24 Hours Test 04/10/17 23:10 04/10/17 23:13 Range/Units White Blood Count 7.78 4.8-10.8 K/uL Red Blood Count 5.30 4.2-5.4 M/uL Hemoglobin 14.8 12.0-16.0 g/dL Hematocrit 45.5 37-47 % Mean Corpuscular Volume 85.8 80-100 fL Mean Corpuscular Hemoglobin 27.9 25-34 pg Mean Corpuscular Hemoglobin Concent 32.5 32-36 g/dl Platelet Count 252 130-400 K/uL Mean Platelet Volume 9.7 7.4-10.4 fL Neutrophils (%) (Auto) 78.8 % Lymphocytes (%) (Auto) 16.2 % Monocytes (%) (Auto) 3.9 % Eosinophils (%) (Auto) 0.8 % Basophils (%) (Auto) 0.0 % Neutrophils # (Auto) 6.14 1.4-6.5 K/uL Lymphocytes # (Auto) 1.26 1.2-3.4 K/uL Monocytes # (Auto) 0.30 0.11-0.59 K/uL Eosinophils # (Auto) 0.06 0-0.5 K/uL Basophils # (Auto) 0.00 0-0.2 K/uL RDW Standard Deviation 57.4 36.4-46.3 fL RDW Coefficient of Variation 18.3 11.5-14.5 % Immature Granulocyte % (Auto) 0.3 % Immature Granulocyte # (Auto) 0.02 0.00-0.02 K/uL Prothrombin Time 10.3 9.0-12.0 SECONDS Prothromb Time International Ratio 1.0 0.9-1.1 Activated Partial Thromboplast Time 24.5 21.0-31.0 SECONDS Partial Thromboplastin Ratio 0.9 Sodium Level 136 136-145 mmol/L Potassium Level 4.1 3.5-5.1 mmol/L Chloride Level 100 98-107 mmol/L Carbon Dioxide Level 25 21-32 mmol/L Anion Gap 11.0 3-11 mmol/L Blood Urea Nitrogen 104 7-18 mg/dl Creatinine 3.90 0.60-1.20 mg/dl Est Creatinine Clear Calc Drug Dose 15.9 ml/min Estimated GFR () 13.9 Estimated GFR (Non- 12.0 BUN/Creatinine Ratio 26.7 10-20 Random Glucose 68 70-99 mg/dl Calcium Level 10.6 8.5-10.1 mg/dl Total Bilirubin 0.7 0.2-1 mg/dl Aspartate Amino Transf (AST/SGOT) 21 15-37 U/L Alanine Aminotransferase (ALT/SGPT) 25 12-78 U/L Alkaline Phosphatase 89 45-117 U/L Troponin I < 0.015 0-0.045 ng/ml Total Protein 8.8 6.4-8.2 gm/dl Albumin 4.1 3.4-5.0 gm/dl Globulin 4.7 2.5-4.0 gm/dl Albumin/Globulin Ratio 0.9 0.9-2 Lipase 766 73-393 U/L Bedside Troponin I < 0.030 0-0.045 ng/ml Diagnostic Radiology CT abdomen: Prominent loops of small bowel - transition point in LLQ - consistent with SBO. Impression Assessment and Plan 57 y/o F with a complex medical history which includes PCKD/ESRD prior to a renal transplant in 1999, IDDM, recurrent C-diff, recurrent pancreatitis, recurrent SBO - presenting with nausea, vomiting and abdominal pain. A CT of the abdomen was obtained in the ER revealing an SBO. The pt has not previously required surgery for this. She has declined an NGT in the ER. The surgical service were notified of the CT findings. The pt is currently being treated for C diff with Dificid which is slated to continue until she has a fecal transplant. Her renal function has deteriorated gradually over the past few years and she is currently awaiting another transplant. 1) SBO - pt declining an NG pending AM reassessment. We will treat her pain and nausea and provide IVF. NPO - surgery notified. 2) CKD 4 - renal transplant recipient. Her creatinine is currently at baseline (3.5). She cannot tolerate her oral meds which include Sirolimus and Prednisone. We will place her on Hydrocortisone 25mg BID presently. We have consulted her member of congress per her request and would appreciate input regarding immune suppression if she is unable to maintain her med schedule for a significant period. 3) C diff - considered active - placed on isolation - cont Dificid when tolerating PO 4) IDDM - sliding scale Ful code - Heparin prophylaxis Total time for this admit including review of labs, meds, imaging, extensive records - discussion with pt and ER attending - 40 min Level of Care Med/Surg Resuscitation Status FULL RESUSCITATION VTE Prophylaxis VTE Risk Assessment Done? Y/N: Yes Risk Level: Moderate Given or contraindicated: Unfractionated heparin SQ
[2017-04-11 03:12] VITALS: BP 171/94; PULSE 85; TEMP 36.7; O2SAT 97
[2017-04-11 03:15] VITALS: BP 122/78; PULSE 82; TEMP 36.7; O2SAT 95; Ht 172.7 cm; Wt 68.9 kg
[2017-04-11] MEDS ORDERED: DEXTROSE 50% 50 ML SYR IV PRN (04:45)
[2017-04-11] MEDS ORDERED: GLUCOSE 40% GEL 15 GM TUBE PO PRN (04:45)
[2017-04-11] MEDS ORDERED: GLUCAGON FOR INJ 1 MG VIAL SQ PRN (04:45)
[2017-04-11] MEDS ORDERED: GLUCOSE 10 TABS/TUBE PO PRN (04:45)
[2017-04-11] MEDS: INSULIN ASPART 100 UNITS/ML 3 ML PEN SC SCH ×4 (06:00→23:51)
[2017-04-11] MEDS: HYDROCORTISONE IV 25 MG in SYRINGE 0 ML IV SCH ×2 (06:00→17:50)
[2017-04-11] MEDS: HEPARIN SOD 5000 UNIT/0.5 ML CARP SQ SCH ×3 (06:00→21:43)
--- NOTE | 2017-04-11 06:50 | DIAGNOSTIC IMAGING REPORT ---
ABDOMEN 2VIEW W/PA CHEST RTN CLINICAL HISTORY: abd pain, hx of sbo pain COMPARISON STUDY: 03/13/2017 FINDINGS: Slight chronic blunting left lateral costophrenic angle. Moderate emphysematous change. No focal infiltrate. Lung bases partially obscured due to overlying calcified breast implants. Bowel pattern suggests a mild ileus. Operative changes seen throughout the abdomen. There are multiple pelvic vascular calcifications. IMPRESSION: 1. No acute process of the chest. 2. Mild ileus. The above report was generated using voice recognition software. It may contain grammatical, syntax or spelling errors. Electronically signed by: Jonas Deluca M.D. 04/11/2017 6:49 AM Dictated Date/Time: 04/11/2017 6:47 AM
--- NOTE | 2017-04-11 07:14 | DIAGNOSTIC IMAGING REPORT ---
ABD/PELVIS NO IV OR ORAL CONT HISTORY: 57 years Female severe lower abdominal pain with vomiting. History of prior kidney transplant. COMPARISON: CT 05/26/2016 and 12/19/2015. TECHNIQUE: Multiple axial CT images of the abdomen and pelvis were obtained without contrast. FINDINGS: There is a small pericardial effusion. Left breast augmentation is partially imaged. There is mild atelectasis and/or pleural parenchymal scarring of left lung base in a subsegmental distribution. No pneumoperitoneum identified. There are innumerable hepatic cysts again seen measuring up to 4.2 cm in greatest dimension. Prior cholecystectomy. Marked dilation of the common bile duct is again seen measuring over 2 cm which appears unchanged from comparison. The spleen and adrenal glands are within normal limits. There is severe diffuse pancreatic atrophy. There is atherosclerotic plaquing of the abdominal aorta. Prior bilateral nephrectomy with left lower pelvis renal transplant appears unremarkable. No hydronephrosis of the transplanted kidney. Urinary bladder is unremarkable. Uterus and adnexa are age-appropriate. There are postsurgical changes suggesting prior right hemicolectomy. There are several dilated small bowel loops in the left upper abdomen with fecalization and air-fluid leveling measuring up to 3.5 cm in dimension abutting the left anterolateral abdominal wall with loops of collapsed small bowel seen distally. Apparent transition point is seen on images 200 through 220 of the thin sections series within the left lower quadrant. Mild reactive mesenteric edema is noted adjacent to the transition site with some angulated loops suggesting underlying adhesions. Noninflamed colonic diverticula are noted. Postsurgical changes are seen of the anterior abdominal wall. Severe intervertebral disc space narrowing is seen at L5-S1. There is lumbarization of S1. IMPRESSION: 1. Findings compatible with high-grade partial small bowel obstruction with transition point within the left lower quadrant as above, likely secondary to underlying adhesions. Mild reactive mesenteric edema is seen adjacent to the transition point. 2. Prior right hemicolectomy. 3. Transplanted left pelvic kidney is unremarkable. 4. Additional incidental findings as above include small pericardial effusion, unchanged innumerable hepatic cysts and stable dilation of the common bile duct. The above report was generated using voice recognition software. It may contain grammatical, syntax or spelling errors. Electronically signed by: Alberto Tillman M.D. 04/11/2017 7:13 AM Dictated Date/Time: 04/11/2017 7:00 AM
[2017-04-11 07:35] VITALS: BP 124/88; PULSE 80; TEMP 37.6; O2SAT 95
[2017-04-11 08:28] VITALS: O2SAT 95
--- NOTE | 2017-04-11 08:28 | Family Medicine Progress Note ---
Progress Note Date of Service Apr 11, 2017. Subjective Pt evaluation today including: conversation w/ patient, physical exam, chart review, lab review Pain: complains of abdominal pain PO Intake: NPO Voiding: no voiding problems 57-year-old female with a past medical history of polycystic kidney disease/ ESRD status post renal transplant in 1999, insulin-dependent diabetes, recurrent C. difficile infections, recurrent pancreatitis, recurrent small bowel obstruction status post hemicolectomy presented to the ER with complaints of nausea ,vomiting and abdominal pain. Was found to have a small bowel obstruction on CT and had initially refused a nasogastric tube. Today, she continues to complain of abdominal pain, about 6/10 in severity, cramping in nature especially in the left lower quadrant to mid abdominal area. She also had one episode of emesis this morning. She has not been passing gas or had a bowel movement. Denies any fevers or chills, chest pain, difficulty breathing. Constitutional: No fever, No chills ENT: No see HPI Respiratory: No cough, No sputum Cardiovascular: No chest pain Abdomen: + pain, + nausea, + vomiting, No constipation, No GI bleeding Musculoskeletal: No joint pain Female : No dysuria Neurologic: No memory loss, No paralysis Psychiatric: No depression symptoms Heme: No abnormal bleeding/bruising Medications Current Inpatient Medications Medications (Trade) Dose Ordered Sig/Dominique Route Start Time Stop Time Status Last Admin Dose Admin Heparin Sodium (Porcine) (Heparin Sq 5000 Unit/0.5ml) 5,000 unit Q8H SQ 04/11/17 06:00 05/11/17 05:59 Ondansetron HCl (Zofran Inj) 4 mg Q6H PRN IV 04/11/17 02:15 05/11/17 02:14 Hydromorphone HCl (Dilaudid Inj) 0.5 mg Q3H PRN IV 04/11/17 02:30 04/25/17 02:29 Sodium Chloride 1,000 ml @ 80 mls/hr [id number] IV 04/11/17 02:30 04/11/17 14:59 Hydrocortisone Sodium Succinate 25 mg/Syringe 0.5 ml @ 4 mls/min Q12H IV 04/11/17 06:00 05/11/17 05:59 Insulin Aspart (novoLOG ASPART) SLIDING SCALE G... Q6H SC 04/11/17 06:00 05/11/17 05:59 Glucose (Glucose 40% Gel) 15-30 GRAMS 15 GRAMS... UD PRN PO 04/11/17 04:45 05/11/17 04:44 Glucose (Glucose Chew Tab) 4-8 Tablets 4 Tabl... UD PRN PO 04/11/17 04:45 05/11/17 04:44 Dextrose (Dextrose 50% 50ML Syringe) 25-50ML OF 50% DW IV FOR... UD PRN IV 04/11/17 04:45 05/11/17 04:44 Glucagon (Glucagon Inj) 1 mg UD PRN SQ 04/11/17 04:45 05/11/17 04:44 Objective Vital Signs Date Time Temp Pulse Resp B/P (MAP) Pulse Ox O2 Delivery O2 Flow Rate FiO2 04/11/17 08:28 95 Room Air 04/11/17 07:35 37.6 80 20 124/88 (100) 95 Room Air 04/11/17 03:15 36.7 82 18 122/78 95 Room Air 04/11/17 03:12 36.7 85 16 171/94 (119) 97 Room Air 04/11/17 02:54 81 16 137/72 98 04/11/17 02:30 81 16 137/72 98 Room Air 04/11/17 00:26 36.5 78 16 137/75 98 Room Air 04/10/17 23:22 68 04/10/17 23:07 97 Room Air 04/10/17 22:44 36.4 65 22 146/82 100 Room Air Physical Exam General Appearance: WD/WN ENT: hearing grossly normal Neck: supple Respiratory/Chest: chest non-tender, lungs clear, normal breath sounds Cardiovascular: regular rate, rhythm Abdomen: + abnormal bowel sounds, + distended, + tenderness (LLQ) Neurologic/Psychiatric: alert, normal mood/affect, oriented x 3 Skin: normal color Laboratory Results 04/11/17 08:23 04/11/17 08:23 Test 04/10/17 23:10 04/10/17 23:13 04/11/17 08:23 04/11/17 13:03 Immature Granulocyte % (Auto) 0.3 % White Blood Count 7.78 K/uL (4.8-10.8) Red Blood Count 5.30 M/uL (4.2-5.4) 4.69 M/uL (4.2-5.4) Hemoglobin 14.8 g/dL (12.0-16.0) Hematocrit 45.5 % (37-47) Mean Corpuscular Volume 85.8 fL (80-100) 86.8 fL (80-100) Mean Corpuscular Hemoglobin 27.9 pg (25-34) 28.1 pg (25-34) Mean Corpuscular Hemoglobin Concent 32.5 g/dl (32-36) 32.4 g/dl (32-36) Platelet Count 252 K/uL (130-400) Mean Platelet Volume 9.7 fL (7.4-10.4) 9.3 fL (7.4-10.4) Neutrophils (%) (Auto) 78.8 % Lymphocytes (%) (Auto) 16.2 % Monocytes (%) (Auto) 3.9 % Eosinophils (%) (Auto) 0.8 % Basophils (%) (Auto) 0.0 % Neutrophils # (Auto) 6.14 K/uL (1.4-6.5) Lymphocytes # (Auto) 1.26 K/uL (1.2-3.4) Monocytes # (Auto) 0.30 K/uL (0.11-0.59) Eosinophils # (Auto) 0.06 K/uL (0-0.5) Basophils # (Auto) 0.00 K/uL (0-0.2) Immature Granulocyte # (Auto) 0.02 K/uL (0.00-0.02) Prothrombin Time 10.3 SECONDS (9.0-12.0) Prothromb Time International Ratio 1.0 (0.9-1.1) Activated Partial Thromboplast Time 24.5 SECONDS (21.0-31.0) Partial Thromboplastin Ratio 0.9 Total Bilirubin 0.7 mg/dl (0.2-1) Aspartate Amino Transf (AST/SGOT) 21 U/L (15-37) Alanine Aminotransferase (ALT/SGPT) 25 U/L (12-78) Alkaline Phosphatase 89 U/L (45-117) Troponin I < 0.015 ng/ml (0-0.045) Total Protein 8.8 gm/dl (6.4-8.2) Albumin 4.1 gm/dl (3.4-5.0) Globulin 4.7 gm/dl (2.5-4.0) Albumin/Globulin Ratio 0.9 (0.9-2) Bedside Troponin I < 0.030 ng/ml (0-0.045) RDW Standard Deviation 58.2 fL (36.4-46.3) RDW Coefficient of Variation 18.4 % (11.5-14.5) Anion Gap 10.0 mmol/L (3-11) Est Creatinine Clear Calc Drug Dose 15.5 ml/min Estimated GFR () 13.5 Estimated GFR (Non- 11.6 BUN/Creatinine Ratio 25.6 (10-20) Calcium Level 9.9 mg/dl (8.5-10.1) Phosphorus Level 3.8 mg/dl (2.5-4.9) Magnesium Level 1.8 mg/dl (1.8-2.4) Lipase 458 U/L (73-393) Chemistry Specimen Hemolysis Bedside Glucose 121 mg/dl (70-90) Assessment and Plan 57-year-old female with a past medical history of polycystic kidney disease/ ESRD status post renal transplant in 1999, insulin-dependent diabetes, recurrent C. difficile infections, recurrent pancreatitis, recurrent small bowel obstruction status post hemicolectomy presented to the ER with complaints of nausea ,vomiting and abdominal pain. Was found to have a small bowel obstruction on CT and had initially refused a nasogastric tube. Small bowel obstruction: Has a history of recurrent small bowel obstructions status post hemicolectomy - CT abdomen and pelvis: Findings compatible with high-grade partial small bowel obstruction with transition point within the left lower quadrant as above, likely secondary to underlying adhesions. Mild reactive mesenteric edema is seen adjacent to the transition point. -Nothing by mouth -Nasogastric tube for decompression -Surgery consult- appreciate recommendations - If the obstruction doesn't resolve, the patient would likely be transferred to [facility] for further treatment as [place] [facility] [place] Pain control with Dilaudid Recurrent C. difficile infections: - Patient had failed Flagyl and vancomycin in the past - Currently on fidaxomicin PCKD/ESRD s/p renal transplant - Creatinine at 4, baseline 3.5 - Continue IV fluids -Nephrology consult -appreciate recommendations will currently hold immunosuppressive therapy with cyclosporine and Sirolimus - Prednisone converted to hydrocortisone Hypertension: - Uses Norvasc and carvedilol at home- currently held Recurrent pancreatitis: - Pancreas atrophied as evidenced on CT - lipase at 766, trend lipases Migraine headaches -Maxalt as needed DVT prophylaxis: Heparin subcutaneous Full code Disposition: Admitted to [facility] Resident Tracking Resident Involvement: Resident Care Provided Care Provided: Adult Hospital Medicine History Resident Physician Supervision Note: I was present with Dr. Allen during the history and exam. I discussed the case with the resident and agree with the findings and plan as documented in the note. Any exceptions or clarifications are listed here. Pt resting in bed w/ NG tube in place, mild improvement in N/V abd pain since placement. General Appearance: WD/WN, mild distress, other (NGT in p,lace) Respiratory: chest non-tender, lungs clear, normal breath sounds, no respiratory distress Cardiovascular: normal peripheral pulses, regular rate, rhythm, no murmur Gastrointestinal: soft, abnormal bowel sounds (decreased), tenderness Assessment/Plan 57 y/o female h/o PCKD w/ CKD 4 s/p renal transplant w/ failure, IDDM, C.diff, h /o pancreatitis and recurrent SBO s/p SB resection p/w SBO SBO - surgery consulted and input appreciated - NG tube, strongly consider txf to tertiary center if no improvement in AM Recurrent C. diff - will resume fidaxomicin when able to tolerate PO PCKD w/ ESRD w/ [facility] - nephrology aware and recommendations appreciated - continue HC, resume immunosuppresive therapy when tolerating PO HTN - IV PRN, resume home regimen when able Migraine headache - unable to tolerate maxalt PO, will explore alternative if one arrives
[2017-04-11 08:38] LABS: HEMATOCRIT 40.7 % (37-47); MEAN CELL VOLUME 86.8 fL (80-100); MEAN CORPUSCULAR HEMOGLOBIN 28.1 pg (25-34); MEAN CORPUSCULAR HGB CONC 32.4 g/dl (32-36); MEAN PLATELET VOLUME 9.3 fL (7.4-10.4); PLATELET COUNT 203 K/uL (130-400); RED BLOOD COUNT 4.69 M/uL (4.2-5.4); WHITE BLOOD COUNT 5.63 K/uL (4.8-10.8)
[2017-04-11] MEDS ORDERED: HYDROCORTISONE IV 50 MG in SYRINGE 0 ML IV SCH (09:00)
[2017-04-11 09:07] LABS: BUN/CREATININE RATIO 25.6 (10-20); CALCIUM 9.9 mg/dl (8.5-10.1)
--- NOTE | 2017-04-11 09:20 | Surgery Consultation ---
Consultation Date of Consultation: Apr 11, 2017. Attending Physician: Art Marsh MD History of Present Illness The patient is a 57 year old female who presents to the Emergency Room with one day history of nausea, vomiting and upper abdominal pain. Patient is a history of bowel obstructions and symptoms for similar. She is currently being treated for C. difficile for the past 2 months. Pain currently 2 out of 10. last BM yesterday. She is a history of renal failure and creatinine is normal at 3.8. pt had kidney transplant in the past, pt had right hemicoloectomy in 2010 for colon perforation, Patient denies chest pain, dyspnea, fever, chills, diarrhea , back pain, urinary symptoms. Past Medical/Surgical History Medical Problems: (1) Abdominal pain Status: Acute (2) Acute on chronic renal failure Status: Acute (3) Elevated lipase Status: Acute (4) Fever Status: Acute (5) History of fever Status: Acute (6) History of small bowel obstruction Status: Acute (7) Immunocompromised Status: Acute (8) Kidney Transplant Status Status: Acute (9) Malaise and fatigue Status: Acute (10) Prerenal renal failure Status: Acute (11) Renal failure Status: Acute (12) Right upper quadrant abdominal pain Status: Acute (13) Right upper quadrant abdominal pain Status: Acute (14) Sepsis Status: Acute (15) Small bowel obstruction Status: Acute (16) UTI (urinary tract infection) Status: Acute (17) Vomiting Status: Acute Social History Problems: (1) History of renal transplant Status: Acute Family History Kidney disease Kidney stones Social History Smoking Status: Never Smoker Smokeless Tobacco Use: No Alcohol Use: none Drug Use: none Marital Status: Housing Status: lives with family Occupation Status: employed Allergies Coded Allergies: Iodinated Diagnostic Agents (Verified Allergy, Severe, Hx Kidney Transplant, 04/10/17) Statins (Verified Allergy, Severe, "PANCREATITIS", 04/10/17) Hydrochlorothiazide (Verified Allergy, Mild, 04/10/17) Sulfa Antibiotics (Verified Allergy, Mild, ., 04/10/17) Sumatriptan (Verified Allergy, Mild, 04/10/17) Triamterene (Verified Allergy, Mild, 04/10/17) Atorvastatin (Verified Allergy, Unknown, ?, 04/10/17) Doxycycline (Verified Allergy, Unknown, UNKNOWN, 04/10/17) Levofloxacin (Verified Allergy, Unknown, joint pain, 04/10/17) Adhesives (Verified Adverse Reaction, Unknown, SKIN TEAR, 04/10/17) Ciprofloxacin (Verified Adverse Reaction, Unknown, FATIGUE, 04/10/17) Morphine (Verified Adverse Reaction, Unknown, INEFFECTIVE, 04/10/17) Home Medications Scheduled Amlodipine Besylate (Amlodipine Besylate), 1 TAB PO DAILY Azelastine HCl (Azelastine HCl), 1 SPRAYS АНДРЕЙ DAILY Biotin (Biotin 5000), 5,000 MCG PO QAM Calcium W/ Vitamins D & K (Calcium + D + K), 1 TABLET PO MWF Carvedilol (Carvedilol), 2 TAB PO QAM Cyclosporine (Sandimmune), 75 MG PO BID Estrogens, Conjugated (Premarin), 0.625 MG PO 2XWK Fidaxomicin (Dificid), 200 MG PO BID Insulin Detemir (Levemir Flextouch), 20 UNITS SC PM Krill Oil (Krill Oil [facility]-3), 2 TAB PO DAILY Multivitamin (Multivitamin), 1 TAB PO QAM Ondansetron (Ondansetron HCl), 1 TAB PO BID Oxycodone HCl (Oxycodone HCl), 1 TAB PO Q6H Pantoprazole (Pantoprazole Sodium), 1 TAB PO DAILY Polysaccharide Iron Complex (Ferrex 150), 150 MG PO QPM Pramipexole (Mirapex), 0.125 MG PO HS Prednisone (Prednisone), 2.5 MG PO QAM Sirolimus (Rapamune), 1 MG PO QAM Venlafaxine Hcl (Effexor), 1 TAB PO HS Miscellaneous Medications Epoetin Kvng (Procrit), 1 DOSE INJ Current Inpatient Medications Current Inpatient Medications Medications (Trade) Dose Ordered Sig/Dominique Route Start Time Stop Time Status Last Admin Dose Admin Heparin Sodium (Porcine) (Heparin Sq 5000 Unit/0.5ml) 5,000 unit Q8H SQ 04/11/17 06:00 05/11/17 05:59 Ondansetron HCl (Zofran Inj) 4 mg Q6H PRN IV 04/11/17 02:15 05/11/17 02:14 Hydromorphone HCl (Dilaudid Inj) 0.5 mg Q3H PRN IV 04/11/17 02:30 04/25/17 02:29 Sodium Chloride 1,000 ml @ 80 mls/hr [id number] IV 04/11/17 02:30 04/11/17 14:59 Hydrocortisone Sodium Succinate 25 mg/Syringe 0.5 ml @ 4 mls/min Q12H IV 04/11/17 06:00 05/11/17 05:59 Insulin Aspart (novoLOG ASPART) SLIDING SCALE G... Q6H SC 04/11/17 06:00 05/11/17 05:59 Glucose (Glucose 40% Gel) 15-30 GRAMS 15 GRAMS... UD PRN PO 04/11/17 04:45 05/11/17 04:44 Glucose (Glucose Chew Tab) 4-8 Tablets 4 Tabl... UD PRN PO 04/11/17 04:45 05/11/17 04:44 Dextrose (Dextrose 50% 50ML Syringe) 25-50ML OF 50% DW IV FOR... UD PRN IV 04/11/17 04:45 05/11/17 04:44 Glucagon (Glucagon Inj) 1 mg UD PRN SQ 04/11/17 04:45 05/11/17 04:44 Review of Systems Constitutional: No fever, No chills, No sweats, No weight loss, No weakness, No fatigue, No problem reported Eyes: No worsening of vision, No eye pain, No redness, No discharge, No diplopia, No problem reported ENT: No hearing loss, No unusual epistaxis, No nasal symptoms, No sore throat, No tinnitus, No dental problems, No trouble swallowing, No problem reported Respiratory: No cough, No sputum, No wheezing, No shortness of breath, No dyspnea on exertion, No dyspnea at rest, No hemoptysis, No problem reported Cardiovascular: No chest pain, No orthopnea, No PND, No edema, No claudication , No palpitations, No problem reported Abdomen: + pain, + nausea, + vomiting, + problem reported (right hemicolectomy in 2010, ) Genitourinary - Female: + problem reported (kindey transplant , renal failure) , No dysuria, No urinary frequency, No urinary urgency, No urinary incontinence , No urinary retention, No hematuria, No dysmenorrhea, No menorrhagia, No metrorrhagia, No rash, No vaginal bleeding, No vaginal discharge, No vaginal itching, No vulvodynia, No Neurologic: No memory loss, No paralysis, No weakness, No numbness/tingling, No vertigo, No balance problems, No problem reported Psychiatric: No depression symptoms, No anhedonism, No anxiety, No insomnia, No substance abuse, No problem reported Endocrine: No fatigue, No excessive thirst, No excessive urination, No problem reported Hematologic / Lymphatic: No abnormal bleeding/bruising, No clotting problems, No swollen lymph nodes, No night sweats, No problem reported Integumentary: No rash, No itch, No new/changing skin lesions, No color change , No bleeding, No problem reported Physical Exam Date Time Temp Pulse Resp B/P (MAP) Pulse Ox O2 Delivery O2 Flow Rate FiO2 04/11/17 08:28 95 Room Air 04/11/17 07:35 37.6 80 20 124/88 (100) 95 Room Air 04/11/17 03:15 36.7 82 18 122/78 95 Room Air 04/11/17 03:12 36.7 85 16 171/94 (119) 97 Room Air 04/11/17 02:54 81 16 137/72 98 04/11/17 02:30 81 16 137/72 98 Room Air 04/11/17 00:26 36.5 78 16 137/75 98 Room Air 04/10/17 23:22 68 04/10/17 23:07 97 Room Air 04/10/17 22:44 36.4 65 22 146/82 100 Room Air General Appearance: WD/WN, no apparent distress Head: normocephalic Eyes: normal inspection ENT: normal ENT inspection Neck: supple, no JVD Respiratory/Chest: chest non-tender, lungs clear, normal breath sounds Cardiovascular: regular rate, rhythm, no edema, no gallop, no JVD Abdomen/GI: normal bowel sounds, soft, no organomegaly, no pulsatile mass, + tenderness (tenderness at left abdoment, no rebound pain, ) Extremities/Musculoskelatal: normal inspection, no calf tenderness, normal capillary refill Neurologic/Psych: no motor/sensory deficits, alert, normal mood/affect Skin: normal color, warm/dry, no rash Laboratory Results Last 24 Hours Test 04/10/17 23:10 04/10/17 23:13 04/11/17 06:07 04/11/17 08:23 White Blood Count 7.78 K/uL 5.63 K/uL Red Blood Count 5.30 M/uL 4.69 M/uL Hemoglobin 14.8 g/dL 13.2 g/dL Hematocrit 45.5 % 40.7 % Mean Corpuscular Volume 85.8 fL 86.8 fL Mean Corpuscular Hemoglobin 27.9 pg 28.1 pg Mean Corpuscular Hemoglobin Concent 32.5 g/dl 32.4 g/dl Platelet Count 252 K/uL 203 K/uL Mean Platelet Volume 9.7 fL 9.3 fL Neutrophils (%) (Auto) 78.8 % Lymphocytes (%) (Auto) 16.2 % Monocytes (%) (Auto) 3.9 % Eosinophils (%) (Auto) 0.8 % Basophils (%) (Auto) 0.0 % Neutrophils # (Auto) 6.14 K/uL Lymphocytes # (Auto) 1.26 K/uL Monocytes # (Auto) 0.30 K/uL Eosinophils # (Auto) 0.06 K/uL Basophils # (Auto) 0.00 K/uL RDW Standard Deviation 57.4 fL 58.2 fL RDW Coefficient of Variation 18.3 % 18.4 % Immature Granulocyte % (Auto) 0.3 % Immature Granulocyte # (Auto) 0.02 K/uL Prothrombin Time 10.3 SECONDS Prothromb Time International Ratio 1.0 Activated Partial Thromboplast Time 24.5 SECONDS Partial Thromboplastin Ratio 0.9 Sodium Level 136 mmol/L 138 mmol/L Potassium Level 4.1 mmol/L 4.0 mmol/L Chloride Level 100 mmol/L 100 mmol/L Carbon Dioxide Level 25 mmol/L 28 mmol/L Anion Gap 11.0 mmol/L 10.0 mmol/L Blood Urea Nitrogen 104 mg/dl 102 mg/dl Creatinine 3.90 mg/dl 4.00 mg/dl Est Creatinine Clear Calc Drug Dose 15.9 ml/min 15.5 ml/min Estimated GFR () 13.9 13.5 Estimated GFR (Non- 12.0 11.6 BUN/Creatinine Ratio 26.7 25.6 Random Glucose 68 mg/dl 107 mg/dl Calcium Level 10.6 mg/dl 9.9 mg/dl Total Bilirubin 0.7 mg/dl Aspartate Amino Transf (AST/SGOT) 21 U/L Alanine Aminotransferase (ALT/SGPT) 25 U/L Alkaline Phosphatase 89 U/L Troponin I < 0.015 ng/ml Total Protein 8.8 gm/dl Albumin 4.1 gm/dl Globulin 4.7 gm/dl Albumin/Globulin Ratio 0.9 Lipase 766 U/L 458 U/L Bedside Troponin I < 0.030 ng/ml Bedside Glucose 97 mg/dl Chemistry Specimen Hemolysis Assessment & Plan CT scan -IMPRESSION: 1. Findings compatible with high-grade partial small bowel obstruction with transition point within the left lower quadrant as above, likely secondary to underlying adhesions. Mild reactive mesenteric edema is seen adjacent to the transition point. 2. Prior right hemicolectomy. 3. Transplanted left pelvic kidney is unremarkable. 4. Additional incidental findings as above include small pericardial effusion, unchanged innumerable hepatic cysts and stable dilation of the common bile duct. IMP SBO plan, conservative treatment first, NG tube, IV fluid, control pain, will F/U, repeat labs in am, D/W pt , possible surgery if failure treatment, pt understood, she agrees with the plan, I answered all questions,
[2017-04-11] MEDS: ONDANSETRON INJ 2 MG/ML 2 ML VIAL IV PRN ×2 (10:53→17:54)
[2017-04-11] MEDS: HYDROmorphone INJ 0.5 MG/0.5 ML SYR IV PRN ×4 (10:54→22:15)
--- NOTE | 2017-04-11 11:24 | Nephrology Consultation ---
Nephrology Consultation Date & Providers Date of Consultation: Apr 11, 2017. Primary Care Provider: Shruthi Mcbride D.O. Referring Provider: Reason for Consultation Advanced renal insufficiency. History of kidney transplant for end-stage renal disease secondary to adult polycystic kidney disease. Current small bowel obstruction with prerenal azotemia superimposed on chronic renal disease. History of Present Illness Mrs. Bowling is a 57-year-old white female well-known to me. I have followed her since approximately 2011. She was admitted to the hospital last evening with a several hour history of abdominal pain, nausea and multiple episodes of vomiting. Mrs. Bowling has a significant past medical history revolves around her history of adult polycystic kidney disease. She apparently developed end stage renal disease in 1998. At that time, she underwent a bilateral nephrectomy and was begun on maintenance dialysis. Apparently, a complication of the hospitalization for her nephrectomy was a CVA. However, she has had no obvious sequela of that episode. For the most part, she was treated with peritoneal dialysis at home. She remained on dialysis for about 18 months prior to getting a kidney transplant from a living related donor, a cousin. 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 Her serum creatinine marc from its baseline of about 1.5 mg/Karen to about 2.5 mg/ Karen. Her immunosuppression was changed at that time and her serum creatinine improved. She was on a combination of prednisone and sirolimus. She moved to [facility] several years ago because of her 's change in jobs. Since that time, her transplant center has been at [facility] in [place]. He saw Dr. 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 In May 2011, she developed an episode of acute abdominal pain and evidence of a bowel obstruction. She was transferred to the [facility] in [place] and underwent an apparent bowel resection and colostomy. Subsequently, her colostomy was taken down. Unfortunately, that surgery was complicated by the development of a wound infection and a urinary tract infection both requiring antibiotics. As a complication, she developed Clostridium difficile colitis. She was treated with intravenous Comycin in a transition to oral vancomycin. Eventually, her wound infection cleared. She was managed at the wound Center. Unfortunately, she has had a slowly progressive decline in her renal function. Presumably this was related to her previous renal injury and a progressive transplant glomerulopathy. Her baseline serum creatinine in recent months has been about 3.5 mg/dL. Complications of her progressive renal insufficiency have included an anemia of chronic disease which is being managed with erythropoietin. She cannot tolerate oral iron but has received IV iron in the past. Additionally, she has secondary hyperparathyroidism. She is currently in the process of being evaluated for another kidney transplant. That is being done through [facility] in [place]. Additional complications include diabetes mellitus and hypertension both of which have been well controlled on her current medication regimen. Additionally , she has had recurring episodes of C. difficile colitis. He is currently on a course of Dificid. She has relapsed on that medication in the past. She is being considered for a fecal transplant to be done at [email or web address]. Also, she had recent surgery to repair a significant ventral hernia. That surgery was done at the [facility]. As noted above, she developed a small bowel infection in May 2011. She has had recurrent episodes of small bowel obstruction since that time each of which improved with conservative therapy. She says that she has been feeling relatively well for the past few weeks. However, last night she developed the acute onset of mid abdominal pain nausea and vomiting. She said that she vomited multiple times. Finally, she came to the urgency room. Her evaluation in the emergency room was consistent with a small bowel obstruction. Initially she refused having an nasogastric tube placed. However, because of persistent symptoms she agreed to have that done earlier this morning. She feels a bit more comfortable but is very thirsty. Initially she had an IV placed. However that infiltrated. Thus far, the staff is been unable to place another IV. Past Medical/Surgical History Medical: Adult polycystic kidney disease. History of a bilateral nephrectomy. Insulin-dependent diabetes mellitus initially associated with the use of steroids. Hypertension. Allergic rhinitis and asthma. Anemia of chronic disease. GERD. History of pancreatitis. Surgical: [place] nephrectomy 1998. Renal transplant 2000. 2 sections, 1985 and 1987. Breast augmentation 1979. Umbilical hernia repair in 1988. Sinus surgery 1989. Cholecystectomy 2009. Hemicolectomy 2010. Reversal of colostomy 2012. Cataract surgery 2014. Recent ventral hernia repair at the [facility]. Allergies Coded Allergies: Iodinated Diagnostic Agents (Verified Allergy, Severe, Hx Kidney Transplant, 04/10/17) Statins (Verified Allergy, Severe, "PANCREATITIS", 04/10/17) Hydrochlorothiazide (Verified Allergy, Mild, 04/10/17) Sulfa Antibiotics (Verified Allergy, Mild, ., 04/10/17) Sumatriptan (Verified Allergy, Mild, 04/10/17) Triamterene (Verified Allergy, Mild, 04/10/17) Atorvastatin (Verified Allergy, Unknown, ?, 04/10/17) Doxycycline (Verified Allergy, Unknown, UNKNOWN, 04/10/17) Levofloxacin (Verified Allergy, Unknown, joint pain, 04/10/17) Adhesives (Verified Adverse Reaction, Unknown, SKIN TEAR, 04/10/17) Ciprofloxacin (Verified Adverse Reaction, Unknown, FATIGUE, 04/10/17) Morphine (Verified Adverse Reaction, Unknown, INEFFECTIVE, 04/10/17) Inpatient Medications Current Inpatient Medications Medications (Trade) Dose Ordered Sig/Dominique Route Start Time Stop Time Status Last Admin Dose Admin Heparin Sodium (Porcine) (Heparin Sq 5000 Unit/0.5ml) 5,000 unit Q8H SQ 04/11/17 06:00 05/11/17 05:59 Ondansetron HCl (Zofran Inj) 4 mg Q6H PRN IV 04/11/17 02:15 05/11/17 02:14 Hydromorphone HCl (Dilaudid Inj) 0.5 mg Q3H PRN IV 04/11/17 02:30 04/25/17 02:29 Sodium Chloride 1,000 ml @ 80 mls/hr [id number] IV 04/11/17 02:30 04/11/17 14:59 Hydrocortisone Sodium Succinate 25 mg/Syringe 0.5 ml @ 4 mls/min Q12H IV 04/11/17 06:00 05/11/17 05:59 Insulin Aspart (novoLOG ASPART) SLIDING SCALE G... Q6H SC 04/11/17 06:00 05/11/17 05:59 Glucose (Glucose 40% Gel) 15-30 GRAMS 15 GRAMS... UD PRN PO 04/11/17 04:45 05/11/17 04:44 Glucose (Glucose Chew Tab) 4-8 Tablets 4 Tabl... UD PRN PO 04/11/17 04:45 05/11/17 04:44 Dextrose (Dextrose 50% 50ML Syringe) 25-50ML OF 50% DW IV FOR... UD PRN IV 04/11/17 04:45 05/11/17 04:44 Glucagon (Glucagon Inj) 1 mg UD PRN SQ 04/11/17 04:45 05/11/17 04:44 Family History Kidney disease Kidney stones Social History Smoking Status: Never Smoker Smokeless Tobacco Use: No Alcohol Use: none Drug Use: none Marital Status: Housing Status: lives with family Occupation: employed . 2 grown children. She neither smokes nor drinks. 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 Review of Systems A complete review of systems was performed. Pertinent positives are noted above. All other systems are negative. Physical Exam Date Time Temp Pulse Resp B/P (MAP) Pulse Ox O2 Delivery O2 Flow Rate FiO2 04/11/17 08:28 95 Room Air 04/11/17 07:35 37.6 80 20 124/88 (100) 95 Room Air 04/11/17 03:15 36.7 82 18 122/78 95 Room Air 04/11/17 03:12 36.7 85 16 171/94 (119) 97 Room Air 04/11/17 02:54 81 16 137/72 98 04/11/17 02:30 81 16 137/72 98 Room Air 04/11/17 00:26 36.5 78 16 137/75 98 Room Air 04/10/17 23:22 68 04/10/17 23:07 97 Room Air 04/10/17 22:44 36.4 65 22 146/82 100 Room Air Vital signs as above. Skin: Skin turgor diminished. Multiple scars from prior surgical procedures. No rash or infiltrative skin disease. Lymphatics: No palpable superficial lymphadenopathy. Head: Normal no tenderness over the sinuses. Eyes: Grossly normal. The ocular fundi were not examined. Ears, nose, mouth and throat: All unremarkable other than very dry oral mucous membranes. Neck: Supple. No jugular venous distention. No carotid bruit. No thyromegaly. Chest: Clear to auscultation. Cardiac: Regular rhythm. S1 and S2 are normal. I hear no murmur or gallop. Abdomen: Minimally distended. Diffusely tender. Mild rebound tenderness. Scars from prior surgeries. Bowel sounds are diminished. Renal transplant in the left lower quadrant. No bruit heard over the graft. Extremities: No cyanosis, clubbing or peripheral edema. Chronic skin changes over her distal lower extremities. Peripheral pulses are intact. Neurologic: No lateralizing or focal neurologic signs. Laboratory Results Last 24 Hours Test 04/10/17 23:10 04/10/17 23:13 04/11/17 06:07 04/11/17 08:23 White Blood Count 7.78 K/uL 5.63 K/uL Red Blood Count 5.30 M/uL 4.69 M/uL Hemoglobin 14.8 g/dL 13.2 g/dL Hematocrit 45.5 % 40.7 % Mean Corpuscular Volume 85.8 fL 86.8 fL Mean Corpuscular Hemoglobin 27.9 pg 28.1 pg Mean Corpuscular Hemoglobin Concent 32.5 g/dl 32.4 g/dl Platelet Count 252 K/uL 203 K/uL Mean Platelet Volume 9.7 fL 9.3 fL Neutrophils (%) (Auto) 78.8 % Lymphocytes (%) (Auto) 16.2 % Monocytes (%) (Auto) 3.9 % Eosinophils (%) (Auto) 0.8 % Basophils (%) (Auto) 0.0 % Neutrophils # (Auto) 6.14 K/uL Lymphocytes # (Auto) 1.26 K/uL Monocytes # (Auto) 0.30 K/uL Eosinophils # (Auto) 0.06 K/uL Basophils # (Auto) 0.00 K/uL RDW Standard Deviation 57.4 fL 58.2 fL RDW Coefficient of Variation 18.3 % 18.4 % Immature Granulocyte % (Auto) 0.3 % Immature Granulocyte # (Auto) 0.02 K/uL Prothrombin Time 10.3 SECONDS Prothromb Time International Ratio 1.0 Activated Partial Thromboplast Time 24.5 SECONDS Partial Thromboplastin Ratio 0.9 Sodium Level 136 mmol/L 138 mmol/L Potassium Level 4.1 mmol/L 4.0 mmol/L Chloride Level 100 mmol/L 100 mmol/L Carbon Dioxide Level 25 mmol/L 28 mmol/L Anion Gap 11.0 mmol/L 10.0 mmol/L Blood Urea Nitrogen 104 mg/dl 102 mg/dl Creatinine 3.90 mg/dl 4.00 mg/dl Est Creatinine Clear Calc Drug Dose 15.9 ml/min 15.5 ml/min Estimated GFR () 13.9 13.5 Estimated GFR (Non- 12.0 11.6 BUN/Creatinine Ratio 26.7 25.6 Random Glucose 68 mg/dl 107 mg/dl Calcium Level 10.6 mg/dl 9.9 mg/dl Total Bilirubin 0.7 mg/dl Aspartate Amino Transf (AST/SGOT) 21 U/L Alanine Aminotransferase (ALT/SGPT) 25 U/L Alkaline Phosphatase 89 U/L Troponin I < 0.015 ng/ml Total Protein 8.8 gm/dl Albumin 4.1 gm/dl Globulin 4.7 gm/dl Albumin/Globulin Ratio 0.9 Lipase 766 U/L 458 U/L Bedside Troponin I < 0.030 ng/ml Bedside Glucose 97 mg/dl Chemistry Specimen Hemolysis Test 04/11/17 10:00 Impression 57-year-old woman with complicated medical history. She has adult polycystic kidney disease and is status post kidney transplant. She is having a gradual failure of her renal graft. She requires erythropoietin to maintain her hemoglobin although it's reasonably good at the current time but probably impacted by her volume depletion. She now presents with a small bowel obstruction with vomiting and obvious volume depletion. She has a significant degree of prerenal azotemia. She has a history of clostridium differential is still colitis. She is currently on Dificid. Recommendations First, she needs another IV and vigorous rehydration carefully watching her blood pressure and watching for signs of significant volume overload. Second, current conservative management of her small bowel obstruction. However , if she doesn't resolve quickly I would recommend transfer to the [facility] to be under the care of the surgical team that operated on her recently. Entering her abdomen will be quite complicated given the degree of surgeries that she's had in the past. Another consideration regarding her surgery would be how long we can wait without her getting regular immunosuppressive's which she takes orally. An episode of acute rejection would likely end up with her needing to resume maintenance dialysis on a long-term basis, at least until another kidney transplant can be arranged. I reviewed this with Dr. Corey Umana was her transplant surgeon at [facility]. He agrees that surgical management of her current condition be at the [facility]. Thank you for allowing me to be involved with her inpatient care. I'll continue to follow with you.
[2017-04-11 12:01] LABS: MAGNESIUM 1.8 mg/dl (1.8-2.4); PHOSPHORUS 3.8 mg/dl (2.5-4.9)
--- NOTE | 2017-04-11 12:18 | DIAGNOSTIC IMAGING REPORT ---
KUB CLINICAL HISTORY: PORTABLE KUB FOR NG PLACEMENT tube position COMPARISON STUDY: No previous studies for comparison. FINDINGS: Nasogastric tube placed within the distal esophagus. This tube should be advanced. Mild nonobstructive ileus. IMPRESSION: Nasogastric tube appears to be within the distal esophagus. This tube should be advanced The above report was generated using voice recognition software. It may contain grammatical, syntax or spelling errors. Electronically signed by: Jonas Deluca M.D. 04/11/2017 12:16 PM Dictated Date/Time: 04/11/2017 12:16 PM
[2017-04-11 14:50] VITALS: BP 108/68; PULSE 81; TEMP 37.3; O2SAT 96
[2017-04-11] MEDS ORDERED: RIZATRIPTAN BENZOATE 10 MG TAB PO ONE (15:30)
[2017-04-11] MEDS ORDERED: NURSING VERBAL MED ORDER ONE (18:00)
[2017-04-11 23:39] VITALS: BP 121/76; PULSE 79; TEMP 37; O2SAT 94
[2017-04-12] MEDS: ONDANSETRON INJ 2 MG/ML 2 ML VIAL IV PRN ×2 (01:08→18:40)
[2017-04-12] MEDS: HYDROmorphone INJ 0.5 MG/0.5 ML SYR IV PRN ×6 (01:24→18:27)
[2017-04-12] MEDS ORDERED: SODIUM CHLORIDE 0.9% 1000ML 1,000 ML IV STA (02:15)
[2017-04-12] MEDS ORDERED: SODIUM CHLORIDE 0.9% 1000ML 1,000 ML IV ONE (03:45)
[2017-04-12 03:54] VITALS: BP 120/76; PULSE 76; TEMP 36.8; O2SAT 98
[2017-04-12] MEDS: INSULIN ASPART 100 UNITS/ML 3 ML PEN SC SCH ×3 (05:47→18:00)
[2017-04-12] MEDS: HYDROCORTISONE IV 25 MG in SYRINGE 0 ML IV SCH ×2 (05:49→19:34)
[2017-04-12] MEDS: HEPARIN SOD 5000 UNIT/0.5 ML CARP SQ SCH ×3 (05:51→21:39)
[2017-04-12] MEDS: LORAZEPAM INJ 0.5 MG in SYRINGE 0.25 ML IV PRN ×2 (06:18→21:55)
[2017-04-12 07:31] LABS: HEMATOCRIT 38.1 % (37-47); MEAN CELL VOLUME 88.6 fL (80-100); MEAN CORPUSCULAR HGB CONC 30.4 g/dl (32-36); MEAN PLATELET VOLUME 9.4 fL (7.4-10.4); PLATELET COUNT 194 K/uL (130-400)
[2017-04-12 08:01] LABS: BUN/CREATININE RATIO 23.5 (10-20); CALCIUM 8.5 mg/dl (8.5-10.1); CREATININE 4.3 mg/dl (0.60-1.20); POTASSIUM 3.9 mmol/L (3.5-5.1)
--- NOTE | 2017-04-12 08:04 | Surgery Progress Note ---
Surgery Progress Note Date of Service Apr 12, 2017. Subjective pt has not passed gas or BM yet, no significant abdominal pain, no nausea, no vomiting, NG -350ml. Objective Vital Signs: Date Time Temp Pulse Resp B/P (MAP) Pulse Ox O2 Delivery O2 Flow Rate FiO2 04/12/17 03:54 36.8 76 16 120/76 (91) 98 Room Air 04/12/17 00:15 Room Air 04/11/17 23:39 37.0 79 16 121/76 (91) 94 Room Air 04/11/17 20:40 Room Air 04/11/17 14:50 37.3 81 18 108/68 (81) 96 Room Air 04/11/17 08:28 95 Room Air General Appearance: WD/WN Head: normocephalic Neck: supple, no JVD Respiratory/Chest: chest non-tender, lungs clear Cardiovascular: regular rate, rhythm, no edema, no JVD Abdomen: normal bowel sounds, non tender, non distended, soft Extremities: normal range of motion, non-tender, normal inspection Laboratory Results: Results Past 24 Hours Test 04/11/17 08:23 04/11/17 13:03 04/11/17 18:01 04/11/17 23:50 Range/Units White Blood Count 5.63 4.8-10.8 K/uL Red Blood Count 4.69 4.2-5.4 M/uL Hemoglobin 13.2 12.0-16.0 g/dL Hematocrit 40.7 37-47 % Mean Corpuscular Volume 86.8 80-100 fL Mean Corpuscular Hemoglobin 28.1 25-34 pg Mean Corpuscular Hemoglobin Concent 32.4 32-36 g/dl RDW Standard Deviation 58.2 36.4-46.3 fL RDW Coefficient of Variation 18.4 11.5-14.5 % Platelet Count 203 130-400 K/uL Mean Platelet Volume 9.3 7.4-10.4 fL Sodium Level 138 136-145 mmol/L Potassium Level 4.0 3.5-5.1 mmol/L Chloride Level 100 98-107 mmol/L Carbon Dioxide Level 28 21-32 mmol/L Anion Gap 10.0 3-11 mmol/L Blood Urea Nitrogen 102 7-18 mg/dl Creatinine 4.00 0.60-1.20 mg/dl Est Creatinine Clear Calc Drug Dose 15.5 ml/min Estimated GFR () 13.5 Estimated GFR (Non- 11.6 BUN/Creatinine Ratio 25.6 10-20 Random Glucose 107 70-99 mg/dl Calcium Level 9.9 8.5-10.1 mg/dl Phosphorus Level 3.8 2.5-4.9 mg/dl Magnesium Level 1.8 1.8-2.4 mg/dl Lipase 458 73-393 U/L Chemistry Specimen Hemolysis Bedside Glucose 121 120 151 70-90 mg/dl Test 04/12/17 05:47 04/12/17 07:21 Range/Units Bedside Glucose 113 70-90 mg/dl White Blood Count 5.70 4.8-10.8 K/uL Red Blood Count 4.30 4.2-5.4 M/uL Hemoglobin 11.6 12.0-16.0 g/dL Hematocrit 38.1 37-47 % Mean Corpuscular Volume 88.6 80-100 fL Mean Corpuscular Hemoglobin 27.0 25-34 pg Mean Corpuscular Hemoglobin Concent 30.4 32-36 g/dl RDW Standard Deviation 61.6 36.4-46.3 fL RDW Coefficient of Variation 18.8 11.5-14.5 % Platelet Count 194 130-400 K/uL Mean Platelet Volume 9.4 7.4-10.4 fL Assessment & Plan F/U SBO not passed gas or BM yet WBC normal, KUB today continue treatment, will F/U,
[2017-04-12 08:11] VITALS: BP 123/75; PULSE 85; TEMP 37.6; O2SAT 93
[2017-04-12 09:50] VITALS: O2SAT 93
--- NOTE | 2017-04-12 10:35 | Nephrology Progress Note ---
Nephrology Progress Note Date of Service Apr 12, 2017. Chief Complaint Advanced renal insufficiency. History of kidney transplant for end-stage renal disease secondary to adult polycystic kidney disease. Current small bowel obstruction with prerenal azotemia superimposed on chronic renal disease. Subjective Mrs. Bowling says that she's feeling somewhat better this morning. Her nasogastric tube is still an irritation for her particularly in her throat. She denies having any abdominal pain. She did have a bowel movement this morning. He has had no further nausea or vomiting. She has had no chills or fevers. She has had no symptoms of uremia or volume overload. She does not feel as thirsty as she had been. Review of Systems A complete review of systems was performed. Pertinent positives are noted above. All other systems are negative. Vital Signs Last 8 Hrs Date Time Temp Pulse Resp B/P (MAP) Pulse Ox O2 Delivery O2 Flow Rate FiO2 04/12/17 09:50 93 Room Air 04/12/17 08:11 37.6 85 18 123/75 (91) 93 Room Air 04/12/17 07:45 Room Air 04/12/17 03:54 36.8 76 16 120/76 (91) 98 Room Air Last Recorded Weight Weight (Kilograms): 68.900 Physical Exam On physical examination, Mrs. Bowling appears to be comfortable. She is lying quietly in bed. Vital signs are as recorded. Her skin shows normal skin turgor. There is no rash or infiltrative skin disease. Skin turgor is normal. She has multiple scars from prior surgical procedures, particularly on her abdomen. Lymphatics show no palpable adenopathy. Her head is normal. Eyes are normal. The ocular fundi were not examined. Ears, nose, mouth and throat are all unremarkable. Her oral mucous membranes are moist. Her neck is supple. She has no jugular venous distention, carotid bruit or thyromegaly. Her chest is clear to auscultation. She has no wheezes, rales or rhonchi. Cardiac exam shows a regular rhythm. S1 and S2 are normal. She has a soft systolic murmur at the base and upper left sternal border. Her abdomen is relatively soft. It is not particularly tender. She still has quiet bowel sounds. There is no obvious organomegaly or mass. Her renal graft is palpable in the left lower quadrant. I do not hear a bruit over the graft. Extremities show no cyanosis, clubbing or peripheral edema. Her neurologic exam is unremarkable. She has no lateralizing changes. There is no asterixis. Family History Kidney disease Kidney stones Social History Smoking Status: Never smoker Smokeless Tobacco Use: No Alcohol Use: none Drug Use: none Marital Status: Housing Status: lives with family Occupation: employed . 2 grown children. She neither smokes nor drinks. 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 Laboratory Results Past 24 Hours 04/12/17 07:21 04/12/17 07:21 Test 04/11/17 13:03 04/11/17 18:01 04/11/17 23:50 04/12/17 05:47 Bedside Glucose 121 mg/dl (70-90) 120 mg/dl (70-90) 151 mg/dl (70-90) 113 mg/dl (70-90) Test 04/12/17 07:21 Red Blood Count 4.30 M/uL (4.2-5.4) Mean Corpuscular Volume 88.6 fL (80-100) Mean Corpuscular Hemoglobin 27.0 pg (25-34) Mean Corpuscular Hemoglobin Concent 30.4 g/dl (32-36) RDW Standard Deviation 61.6 fL (36.4-46.3) RDW Coefficient of Variation 18.8 % (11.5-14.5) Mean Platelet Volume 9.4 fL (7.4-10.4) Anion Gap 11.0 mmol/L (3-11) Est Creatinine Clear Calc Drug Dose 14.4 ml/min Estimated GFR () 12.3 Estimated GFR (Non- 10.6 BUN/Creatinine Ratio 23.5 (10-20) Calcium Level 8.5 mg/dl (8.5-10.1) Date/Time Source Procedure Growth Status 04/12/17 08:30 Stool C.difficile Toxin B Gene (PCR) - Final No C. difficile toxin B gene detected Complete Allergies Coded Allergies: Iodinated Diagnostic Agents (Verified Allergy, Severe, Hx Kidney Transplant, 04/10/17) Statins (Verified Allergy, Severe, "PANCREATITIS", 04/10/17) Hydrochlorothiazide (Verified Allergy, Mild, 04/10/17) Sulfa Antibiotics (Verified Allergy, Mild, ., 04/10/17) Sumatriptan (Verified Allergy, Mild, 04/10/17) Triamterene (Verified Allergy, Mild, 04/10/17) Atorvastatin (Verified Allergy, Unknown, ?, 04/10/17) Doxycycline (Verified Allergy, Unknown, UNKNOWN, 04/10/17) Levofloxacin (Verified Allergy, Unknown, joint pain, 04/10/17) Adhesives (Verified Adverse Reaction, Unknown, SKIN TEAR, 04/10/17) Ciprofloxacin (Verified Adverse Reaction, Unknown, FATIGUE, 04/10/17) Morphine (Verified Adverse Reaction, Unknown, INEFFECTIVE, 04/10/17) Medications Current Inpatient Medications Medications (Trade) Dose Ordered Sig/Dominique Route Start Time Stop Time Status Last Admin Dose Admin Heparin Sodium (Porcine) (Heparin Sq 5000 Unit/0.5ml) 5,000 unit Q8H SQ 04/11/17 06:00 05/11/17 05:59 04/12/17 05:51 5,000 UNIT Ondansetron HCl (Zofran Inj) 4 mg Q6H PRN IV 04/11/17 02:15 05/11/17 02:14 04/12/17 01:08 4 MG Hydromorphone HCl (Dilaudid Inj) 0.5 mg Q3H PRN IV 04/11/17 02:30 04/25/17 02:29 04/12/17 09:26 0.5 MG Hydrocortisone Sodium Succinate 25 mg/Syringe 0.5 ml @ 4 mls/min Q12H IV 04/11/17 06:00 05/11/17 05:59 04/12/17 05:49 4 MLS/MIN Insulin Aspart (novoLOG ASPART) SLIDING SCALE G... Q6H SC 04/11/17 06:00 05/11/17 05:59 Glucose (Glucose 40% Gel) 15-30 GRAMS 15 GRAMS... UD PRN PO 04/11/17 04:45 05/11/17 04:44 Glucose (Glucose Chew Tab) 4-8 Tablets 4 Tabl... UD PRN PO 04/11/17 04:45 05/11/17 04:44 Dextrose (Dextrose 50% 50ML Syringe) 25-50ML OF 50% DW IV FOR... UD PRN IV 04/11/17 04:45 05/11/17 04:44 Glucagon (Glucagon Inj) 1 mg UD PRN SQ 04/11/17 04:45 05/11/17 04:44 Lorazepam 0.5 mg/ Syringe 0.5 ml @ 0.5 mls/min Q4H PRN IV 04/12/17 06:15 05/12/17 06:14 04/12/17 06:18 0.5 MLS/MIN Impression Mrs. Bowling appears to be somewhat improved. Her hydration status is improved even though her BUN is still significantly disproportionate to her creatinine which is slightly higher today than it was yesterday. Flat plate of her abdomen shows evidence of an ileus but no obvious bowel obstruction at this time. She has had a bowel movement. She is anxious to have her nasogastric tube removed. Recommendations Since she is very anxious to have her nasogastric tube removed, I would remove it and start her on clear liquids given the lack of evidence of obstruction at this time. However, I would keep her only on clear liquids and resume her oral immunosuppressive medications. Continue with her IV hydration. Hopefully, a combination of intravenous and oral fluids will help her regain her normal volume status. Her Dificid can be held for another day. I will continue to follow her with you.
[2017-04-12 16:18] VITALS: BP 128/78; PULSE 78; TEMP 36.8; O2SAT 97
[2017-04-12] MEDS: SIROLIMUS 0.5 MG TAB PO SCH (16:44)
--- NOTE | 2017-04-12 17:09 | Family Medicine Progress Note ---
Progress Note Date of Service Apr 12, 2017. Subjective Pt evaluation today including: conversation w/ patient, physical exam, chart review, lab review Pain: some abdominal pain PO Intake: NPO Voiding: no voiding problems 57-year-old female with a past medical history of polycystic kidney disease/ ESRD status post renal transplant in 1999, insulin-dependent diabetes, recurrent C. difficile infections, recurrent pancreatitis, recurrent small bowel obstruction status post hemicolectomy presented to the ER with complaints of nausea ,vomiting and abdominal pain. Was found to have a small bowel obstruction on CT Today, she continues to complain of abdominal pain but is improved than yesterday. she also had a BM this morning Constitutional: No fever, No chills Eyes: No worsening of vision ENT: No hearing loss Respiratory: No cough Cardiovascular: No chest pain Musculoskeletal: No joint pain Female : No dysuria, No urinary frequency Neurologic: No memory loss Psychiatric: No depression symptoms Medications Current Inpatient Medications Medications (Trade) Dose Ordered Sig/Dominique Route Start Time Stop Time Status Last Admin Dose Admin Heparin Sodium (Porcine) (Heparin Sq 5000 Unit/0.5ml) 5,000 unit Q8H SQ 04/11/17 06:00 05/11/17 05:59 04/12/17 15:57 5,000 UNIT Ondansetron HCl (Zofran Inj) 4 mg Q6H PRN IV 04/11/17 02:15 05/11/17 02:14 04/12/17 01:08 4 MG Hydromorphone HCl (Dilaudid Inj) 0.5 mg Q3H PRN IV 04/11/17 02:30 04/25/17 02:29 04/12/17 12:30 0.5 MG Hydrocortisone Sodium Succinate 25 mg/Syringe 0.5 ml @ 4 mls/min Q12H IV 04/11/17 06:00 05/11/17 05:59 04/12/17 05:49 4 MLS/MIN Insulin Aspart (novoLOG ASPART) SLIDING SCALE G... Q6H SC 04/11/17 06:00 05/11/17 05:59 Glucose (Glucose 40% Gel) 15-30 GRAMS 15 GRAMS... UD PRN PO 04/11/17 04:45 05/11/17 04:44 Glucose (Glucose Chew Tab) 4-8 Tablets 4 Tabl... UD PRN PO 04/11/17 04:45 05/11/17 04:44 Dextrose (Dextrose 50% 50ML Syringe) 25-50ML OF 50% DW IV FOR... UD PRN IV 04/11/17 04:45 05/11/17 04:44 Glucagon (Glucagon Inj) 1 mg UD PRN SQ 04/11/17 04:45 05/11/17 04:44 Lorazepam 0.5 mg/ Syringe 0.5 ml @ 0.5 mls/min Q4H PRN IV 04/12/17 06:15 05/12/17 06:14 04/12/17 06:18 0.5 MLS/MIN Cyclosporine (Sandimmune Cap) 75 mg BID PO 04/12/17 21:00 05/12/17 20:59 Sirolimus (Sirolimus) 1 mg QAM PO 04/12/17 16:00 05/12/17 15:59 04/12/17 16:44 1 MG Objective Vital Signs Date Time Temp Pulse Resp B/P (MAP) Pulse Ox O2 Delivery O2 Flow Rate FiO2 04/12/17 16:18 36.8 78 18 128/78 (95) 97 Room Air 04/12/17 09:50 93 Room Air 04/12/17 08:11 37.6 85 18 123/75 (91) 93 Room Air 04/12/17 07:45 Room Air 04/12/17 03:54 36.8 76 16 120/76 (91) 98 Room Air 04/12/17 00:15 Room Air 04/11/17 23:39 37.0 79 16 121/76 (91) 94 Room Air 04/11/17 20:40 Room Air Physical Exam General Appearance: WD/WN, no apparent distress Eyes: normal inspection ENT: hearing grossly normal Neck: supple Respiratory/Chest: chest non-tender, lungs clear, normal breath sounds, no respiratory distress, no accessory muscle use Cardiovascular: regular rate, rhythm, no edema Abdomen: soft, + distended (appears improved than yesterday), + tenderness ( lucio mid abdomen and LLQ) Neurologic/Psychiatric: alert, normal mood/affect, oriented x 3 Skin: normal color Laboratory Results 04/12/17 07:21 Test 04/12/17 07:21 04/12/17 11:55 04/12/17 16:57 Red Blood Count 4.30 M/uL (4.2-5.4) Mean Corpuscular Volume 88.6 fL (80-100) Mean Corpuscular Hemoglobin 27.0 pg (25-34) Mean Corpuscular Hemoglobin Concent 30.4 g/dl (32-36) RDW Standard Deviation 61.6 fL (36.4-46.3) RDW Coefficient of Variation 18.8 % (11.5-14.5) Mean Platelet Volume 9.4 fL (7.4-10.4) Est Creatinine Clear Calc Drug Dose 14.4 ml/min Bedside Glucose 145 mg/dl (70-90) Date/Time Source Procedure Growth Status 04/12/17 08:30 Stool C.difficile Toxin B Gene (PCR) - Final No C. difficile toxin B gene detected Complete Assessment and Plan 57-year-old female with a past medical history of polycystic kidney disease/ ESRD status post renal transplant in 1999, insulin-dependent diabetes, recurrent C. difficile infections, recurrent pancreatitis, recurrent small bowel obstruction status post hemicolectomy presented to the ER with complaints of nausea ,vomiting and abdominal pain. Was found to have a small bowel obstruction on CT . had a BM this morning Small bowel obstruction: Has a history of recurrent small bowel obstructions status post hemicolectomy - CT abdomen and pelvis: Findings compatible with high-grade partial small bowel obstruction with transition point within the left lower quadrant as above, likely secondary to underlying adhesions. Mild reactive mesenteric edema is seen adjacent to the transition point. -Nasogastric tube can be discontinued -Surgery consult- appreciate recommendations - advance diet to clear liquids - Pain control with Dilaudid Recurrent C. difficile infections: - Patient had failed Flagyl and vancomycin in the past - Currently on fidaxomicin PCKD/ESRD s/p renal transplant - Creatinine at 4.3, baseline 3.5 - Continue IV fluids -Nephrology consult -appreciate recommendations - will restart immunosuppressive therapy with cyclosporine and Sirolimus - Prednisone converted to hydrocortisone Hypertension: - Uses Norvasc and carvedilol at home- currently held Recurrent pancreatitis: - Pancreas atrophied as evidenced on CT - lipase at 766, trend lipases Migraine headaches -Maxalt as needed DVT prophylaxis: Heparin subcutaneous Full code Disposition: Admitted to [facility] Resident Tracking Resident Involvement: Resident Care Provided Care Provided: Adult Hospital Medicine History Resident Physician Supervision Note: I was present with Dr. Allen during the history and exam. I discussed the case with the resident and agree with the findings and plan as documented in the note. Any exceptions or clarifications are listed here. Resolution of N/V w/ BM @ 0830 this morning w/ significantly improved but persistent abdominal pain. Early stage of patients' typical migraine if NPO present, would like to eat (has appetite). General Appearance: WD/WN, no apparent distress Respiratory: chest non-tender, lungs clear, normal breath sounds, no respiratory distress Cardiovascular: normal peripheral pulses, regular rate, rhythm, no edema, no murmur Gastrointestinal: normal bowel sounds, soft, no organomegaly, tenderness ( aching LUQ TTP) Assessment/Plan 57 y/o female h/o PCKD w/ CKD 4 s/p renal transplant w/ failure, IDDM, C.diff, h /o pancreatitis and recurrent SBO s/p SB resection p/w SBO SBO - surgery consulted and input appreciated - NG tube d/c'd, trial of clear diet Recurrent C. diff - resume fidaxomicin on 7.20 PCKD w/ ESRD w/ MARCIO - nephrology aware and recommendations appreciated - IVF, continue HC, resume immunosuppresive therapy, repeat BMP in AM HTN - resume home regimen Migraine headache - maxalt PO
[2017-04-12 17:36] LABS: BUN/CREATININE RATIO 22.3 (10-20); CALCIUM 9.1 mg/dl (8.5-10.1); CREATININE 4.3 mg/dl (0.60-1.20)
[2017-04-12] MEDS ORDERED: NURSING DECISION MEDICATION ORDER SCH (21:00)
[2017-04-12] MEDS: CycloSPORINE (SANDIMMUNE) 25 MG CAP PO SCH (21:33)
[2017-04-12 23:03] VITALS: BP 119/78; PULSE 84; TEMP 37.1; O2SAT 98
[2017-04-13] MEDS: HEPARIN SOD 5000 UNIT/0.5 ML CARP SQ SCH ×3 (05:23→21:01)
[2017-04-13] MEDS: HYDROCORTISONE IV 25 MG in SYRINGE 0 ML IV SCH ×2 (05:24→18:23)
[2017-04-13 07:07] LABS: HEMATOCRIT 32.7 % (37-47); MEAN CELL VOLUME 89.3 fL (80-100); MEAN CORPUSCULAR HEMOGLOBIN 29.5 pg (25-34); MEAN PLATELET VOLUME 9.2 fL (7.4-10.4); PLATELET COUNT 160 K/uL (130-400); RED BLOOD COUNT 3.66 M/uL (4.2-5.4); WHITE BLOOD COUNT 3.93 K/uL (4.8-10.8)
[2017-04-13 07:26] LABS: BUN/CREATININE RATIO 21.7 (10-20); CALCIUM 8.7 mg/dl (8.5-10.1); POTASSIUM 3.7 mmol/L (3.5-5.1)
[2017-04-13 07:45] VITALS: O2SAT 93
[2017-04-13 07:58] VITALS: BP 142/82; PULSE 76; TEMP 37; O2SAT 99
[2017-04-13 08:16] VITALS: O2SAT 99
[2017-04-13] MEDS: INSULIN ASPART 100 UNITS/ML 3 ML PEN SC SCH ×4 (08:41→20:56)
[2017-04-13] MEDS: CycloSPORINE (SANDIMMUNE) 25 MG CAP PO SCH ×2 (08:42→21:00)
[2017-04-13] MEDS: SIROLIMUS 0.5 MG TAB PO SCH (08:43)
--- NOTE | 2017-04-13 09:47 | Surgery Progress Note ---
Surgery Progress Note Date of Service Apr 13, 2017. Subjective + feeling well pt is doing better, passed gas and BM today, pt denies abdominal pain, no nausea , no vomiting, Objective Vital Signs: Date Time Temp Pulse Resp B/P (MAP) Pulse Ox O2 Delivery O2 Flow Rate FiO2 04/13/17 08:16 99 Room Air 04/13/17 07:58 37.0 76 18 142/82 (102) 99 Room Air 04/13/17 07:45 93 Room Air 04/12/17 23:03 37.1 84 14 119/78 (92) 98 Room Air 04/12/17 20:20 Room Air 04/12/17 16:18 36.8 78 18 128/78 (95) 97 Room Air 04/12/17 09:50 93 Room Air General Appearance: WD/WN Head: normocephalic Neck: supple, no JVD Respiratory/Chest: chest non-tender, lungs clear Cardiovascular: regular rate, rhythm, no edema, no JVD Abdomen: normal bowel sounds, non tender, non distended Extremities: normal range of motion, non-tender, normal inspection Laboratory Results: Results Past 24 Hours Test 04/12/17 11:55 04/12/17 16:57 04/12/17 17:11 04/12/17 20:53 Range/Units Bedside Glucose 145 122 157 70-90 mg/dl Sodium Level 142 136-145 mmol/L Potassium Level 4.0 3.5-5.1 mmol/L Chloride Level 106 98-107 mmol/L Carbon Dioxide Level 27 21-32 mmol/L Anion Gap 9.0 3-11 mmol/L Blood Urea Nitrogen 96 7-18 mg/dl Creatinine 4.30 0.60-1.20 mg/dl Est Creatinine Clear Calc Drug Dose 14.4 ml/min Estimated GFR () 12.3 Estimated GFR (Non- 10.6 BUN/Creatinine Ratio 22.3 10-20 Random Glucose 135 70-99 mg/dl Calcium Level 9.1 8.5-10.1 mg/dl Test 04/13/17 06:58 04/13/17 08:17 Range/Units White Blood Count 3.93 4.8-10.8 K/uL Red Blood Count 3.66 4.2-5.4 M/uL Hemoglobin 10.8 12.0-16.0 g/dL Hematocrit 32.7 37-47 % Mean Corpuscular Volume 89.3 80-100 fL Mean Corpuscular Hemoglobin 29.5 25-34 pg Mean Corpuscular Hemoglobin Concent 33.0 32-36 g/dl RDW Standard Deviation 61.0 36.4-46.3 fL RDW Coefficient of Variation 18.7 11.5-14.5 % Platelet Count 160 130-400 K/uL Mean Platelet Volume 9.2 7.4-10.4 fL Sodium Level 142 136-145 mmol/L Potassium Level 3.7 3.5-5.1 mmol/L Chloride Level 108 98-107 mmol/L Carbon Dioxide Level 27 21-32 mmol/L Anion Gap 7.0 3-11 mmol/L Blood Urea Nitrogen 87 7-18 mg/dl Creatinine 4.00 0.60-1.20 mg/dl Est Creatinine Clear Calc Drug Dose 15.5 ml/min Estimated GFR () 13.5 Estimated GFR (Non- 11.6 BUN/Creatinine Ratio 21.7 10-20 Random Glucose 154 70-99 mg/dl Calcium Level 8.7 8.5-10.1 mg/dl Bedside Glucose 151 70-90 mg/dl Assessment & Plan F/U SBO not passed gas or BM yet WBC normal, KUB today continue treatment, will F/U, 04/13/2017 pt is doing better, passed gas and BM clear diet, any worse symptoms, pt wants to transfer to [facility], base on complicated case, will F/U, F/U SBO not passed gas or BM yet WBC normal, KUB today continue treatment, will F/U,
--- NOTE | 2017-04-13 10:32 | Nephrology Progress Note ---
Nephrology Progress Note Date of Service Apr 13, 2017. Chief Complaint Advanced renal insufficiency. History of kidney transplant for end-stage renal disease secondary to adult polycystic kidney disease. Current small bowel obstruction with prerenal azotemia superimposed on chronic renal disease. Subjective Mrs. Bowling says she is doing significantly better. She has been passing gas and having bowel movements. Her stools are loose as they often are after she recovers from a small bowel obstruction. She denies having any significant abdominal pain. She says that her appetite is not particularly good but she has been drinking fluids and has not been nauseated and has not vomited. She has no symptoms of uremia and no symptoms of volume overload. She is anxious for discharge. She has been getting her immunosuppressives. Review of Systems A complete review of systems was performed. Pertinent positives are noted above. All other systems are negative. Vital Signs Last 8 Hrs Date Time Temp Pulse Resp B/P (MAP) Pulse Ox O2 Delivery O2 Flow Rate FiO2 04/13/17 08:16 99 Room Air 04/13/17 07:58 37.0 76 18 142/82 (102) 99 Room Air 04/13/17 07:45 93 Room Air Last Recorded Weight Weight (Kilograms): 68.900 Physical Exam On physical examination, Mrs. Bowling appears significantly better. She was up and about. Her IV has been discontinued. Her vital signs are normal. Her skin turgor is normal. There is no rash or infiltrative skin disease. She has multiple scars from prior procedures. She has no palpable lymphadenopathy. Her head is normal. Eyes are grossly normal. The ocular fundi were not examined. Ears, nose, mouth and throat are all unremarkable. Her oral mucous membranes are moist. Her neck is supple. She has no jugular venous distention, carotid bruit or thyromegaly. Her chest is clear to auscultation. There are no wheezes, rales or rhonchi. Cardiac exam shows a regular rhythm. S1 and S2 are normal. She has a soft systolic murmur at the base and upper left sternal border. Her abdomen is a bit firm. It is not particularly tender. Bowel sounds are active. Her renal graft is palpable in the left lower quadrant. I do not hear a bruit over the graft. She has no peripheral edema. She has no lateralizing neurologic findings. She is alert, oriented and appropriate. Family History Kidney disease Kidney stones Social History Smoking Status: Never smoker Smokeless Tobacco Use: No Alcohol Use: none Drug Use: none Marital Status: Housing Status: lives with family Occupation: employed . 2 grown children. She neither smokes nor drinks. 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 Laboratory Results Past 24 Hours 04/13/17 06:58 04/12/17 16:57 04/13/17 06:58 Test 04/12/17 11:55 04/12/17 16:57 04/12/17 17:11 04/12/17 20:53 Bedside Glucose 145 mg/dl (70-90) 122 mg/dl (70-90) 157 mg/dl (70-90) Anion Gap 9.0 mmol/L (3-11) Est Creatinine Clear Calc Drug Dose 14.4 ml/min Estimated GFR () 12.3 Estimated GFR (Non- 10.6 BUN/Creatinine Ratio 22.3 (10-20) Calcium Level 9.1 mg/dl (8.5-10.1) Test 04/13/17 06:58 04/13/17 08:17 Red Blood Count 3.66 M/uL (4.2-5.4) Mean Corpuscular Volume 89.3 fL (80-100) Mean Corpuscular Hemoglobin 29.5 pg (25-34) Mean Corpuscular Hemoglobin Concent 33.0 g/dl (32-36) RDW Standard Deviation 61.0 fL (36.4-46.3) RDW Coefficient of Variation 18.7 % (11.5-14.5) Mean Platelet Volume 9.2 fL (7.4-10.4) Anion Gap 7.0 mmol/L (3-11) Est Creatinine Clear Calc Drug Dose 15.5 ml/min Estimated GFR () 13.5 Estimated GFR (Non- 11.6 BUN/Creatinine Ratio 21.7 (10-20) Calcium Level 8.7 mg/dl (8.5-10.1) Bedside Glucose 151 mg/dl (70-90) Allergies Coded Allergies: Iodinated Diagnostic Agents (Verified Allergy, Severe, Hx Kidney Transplant, 04/10/17) Statins (Verified Allergy, Severe, "PANCREATITIS", 04/10/17) Hydrochlorothiazide (Verified Allergy, Mild, 04/10/17) Sulfa Antibiotics (Verified Allergy, Mild, ., 04/10/17) Sumatriptan (Verified Allergy, Mild, 04/10/17) Triamterene (Verified Allergy, Mild, 04/10/17) Atorvastatin (Verified Allergy, Unknown, ?, 04/10/17) Doxycycline (Verified Allergy, Unknown, UNKNOWN, 04/10/17) Levofloxacin (Verified Allergy, Unknown, joint pain, 04/10/17) Adhesives (Verified Adverse Reaction, Unknown, SKIN TEAR, 04/10/17) Ciprofloxacin (Verified Adverse Reaction, Unknown, FATIGUE, 04/10/17) Morphine (Verified Adverse Reaction, Unknown, INEFFECTIVE, 04/10/17) Medications Current Inpatient Medications Medications (Trade) Dose Ordered Sig/Dominique Route Start Time Stop Time Status Last Admin Dose Admin Heparin Sodium (Porcine) (Heparin Sq 5000 Unit/0.5ml) 5,000 unit Q8H SQ 04/11/17 06:00 05/11/17 05:59 04/13/17 05:23 5,000 UNIT Ondansetron HCl (Zofran Inj) 4 mg Q6H PRN IV 04/11/17 02:15 05/11/17 02:14 04/12/17 18:40 4 MG Hydromorphone HCl (Dilaudid Inj) 0.5 mg Q3H PRN IV 04/11/17 02:30 04/25/17 02:29 04/12/17 18:27 0.5 MG Hydrocortisone Sodium Succinate 25 mg/Syringe 0.5 ml @ 4 mls/min Q12H IV 04/11/17 06:00 05/11/17 05:59 04/13/17 05:24 4 MLS/MIN Glucose (Glucose 40% Gel) 15-30 GRAMS 15 GRAMS... UD PRN PO 04/11/17 04:45 05/11/17 04:44 Glucose (Glucose Chew Tab) 4-8 Tablets 4 Tabl... UD PRN PO 04/11/17 04:45 05/11/17 04:44 Dextrose (Dextrose 50% 50ML Syringe) 25-50ML OF 50% DW IV FOR... UD PRN IV 04/11/17 04:45 05/11/17 04:44 Glucagon (Glucagon Inj) 1 mg UD PRN SQ 04/11/17 04:45 05/11/17 04:44 Lorazepam 0.5 mg/ Syringe 0.5 ml @ 0.5 mls/min Q4H PRN IV 04/12/17 06:15 05/12/17 06:14 04/12/17 21:55 0.5 MLS/MIN Cyclosporine (Sandimmune Cap) 75 mg BID PO 04/12/17 21:00 05/12/17 20:59 04/13/17 08:42 75 MG Sirolimus (Sirolimus) 1 mg QAM PO 04/12/17 16:00 05/12/17 15:59 04/13/17 08:43 1 MG Insulin Aspart (novoLOG ASPART) SLIDING SCALE G... ACHS SC 04/13/17 08:00 05/13/17 07:59 Imp[address] Mrs. Bowlign appears to be doing quite well. She is passing gas and having bowel movements. She has no abdominal pain. She does have some loose stools. Fortunately, she is C. difficile toxin negative at this time. I suspect her diarrhea is just a resolving phase of her small bowel obstruction. Her serum creatinine remains elevated but is trending downward with hydration as is her BUN. Her baseline creatinine is generally in the range of about 3.5 mg /dL. With hydration, she is mildly anemic. Usually, she does require erythrocyte stimulating agents to maintain her hematocrit at an adequate level. This is obviously because of her chronic renal insufficiency. She has been able to drink fluids without difficulty. Recommendations I would increase her diet today. If she is able to tolerate full liquids and then soft but I think it would be okay for her to be discharged on her usual medications. However, if symptoms recur, I told her she'd have to come back to the hospital either here or at the [facility]. She can be discharged on her usual medications. I told her to follow-up with me on Monday or Monday and we'll recheck her laboratory work at that time. Although she is C. difficile toxin negative, I would continue her on the course of deficit that is been outlined by infectious disease. I'll continue to follow her as an inpatient if she remains in the hospital indefinitely as an outpatient after her discharge.
[2017-04-13 15:28] VITALS: BP 158/79; PULSE 70; TEMP 37; O2SAT 99
[2017-04-13] MEDS: ONDANSETRON INJ 2 MG/ML 2 ML VIAL IV PRN ×2 (16:06→22:03)
--- NOTE | 2017-04-13 17:31 | Family Medicine Progress Note ---
Progress Note Date of Service Apr 13, 2017. Subjective Pt evaluation today including: conversation w/ patient, physical exam, chart review, lab review Pain: pain is well controlled PO Intake: clear liquid Voiding: no voiding problems feeling better today. had several Bms today and pain is significantly improved Constitutional: No fever, No chills ENT: No hearing loss Respiratory: No cough, No sputum Cardiovascular: No chest pain Abdomen: + pain, + problem reported (loose stool), No nausea Musculoskeletal: No joint pain Female : No dysuria Neurologic: No memory loss Heme: No abnormal bleeding/bruising Medications Current Inpatient Medications Medications (Trade) Dose Ordered Sig/Dominique Route Start Time Stop Time Status Last Admin Dose Admin Heparin Sodium (Porcine) (Heparin Sq 5000 Unit/0.5ml) 5,000 unit Q8H SQ 04/11/17 06:00 05/11/17 05:59 04/13/17 05:23 5,000 UNIT Ondansetron HCl (Zofran Inj) 4 mg Q6H PRN IV 04/11/17 02:15 05/11/17 02:14 04/13/17 16:06 4 MG Hydromorphone HCl (Dilaudid Inj) 0.5 mg Q3H PRN IV 04/11/17 02:30 04/25/17 02:29 04/12/17 18:27 0.5 MG Hydrocortisone Sodium Succinate 25 mg/Syringe 0.5 ml @ 4 mls/min Q12H IV 04/11/17 06:00 05/11/17 05:59 04/13/17 05:24 4 MLS/MIN Glucose (Glucose 40% Gel) 15-30 GRAMS 15 GRAMS... UD PRN PO 04/11/17 04:45 05/11/17 04:44 Glucose (Glucose Chew Tab) 4-8 Tablets 4 Tabl... UD PRN PO 04/11/17 04:45 05/11/17 04:44 Dextrose (Dextrose 50% 50ML Syringe) 25-50ML OF 50% DW IV FOR... UD PRN IV 04/11/17 04:45 05/11/17 04:44 Glucagon (Glucagon Inj) 1 mg UD PRN SQ 04/11/17 04:45 05/11/17 04:44 Lorazepam 0.5 mg/ Syringe 0.5 ml @ 0.5 mls/min Q4H PRN IV 04/12/17 06:15 05/12/17 06:14 04/12/17 21:55 0.5 MLS/MIN Cyclosporine (Sandimmune Cap) 75 mg BID PO 04/12/17 21:00 05/12/17 20:59 04/13/17 08:42 75 MG Sirolimus (Sirolimus) 1 mg QAM PO 04/12/17 16:00 05/12/17 15:59 04/13/17 08:43 1 MG Insulin Aspart (novoLOG ASPART) SLIDING SCALE G... ACHS SC 04/13/17 08:00 05/13/17 07:59 Objective Vital Signs Date Time Temp Pulse Resp B/P (MAP) Pulse Ox O2 Delivery O2 Flow Rate FiO2 04/13/17 15:28 37.0 70 16 158/79 (105) 99 Room Air 04/13/17 08:16 99 Room Air 04/13/17 07:58 37.0 76 18 142/82 (102) 99 Room Air 04/13/17 07:45 93 Room Air 04/12/17 23:03 37.1 84 14 119/78 (92) 98 Room Air 04/12/17 20:20 Room Air Physical Exam General Appearance: WD/WN, no apparent distress Eyes: normal inspection ENT: normal ENT inspection, hearing grossly normal Neck: supple Respiratory/Chest: chest non-tender, lungs clear, normal breath sounds, no respiratory distress, no accessory muscle use Cardiovascular: regular rate, rhythm Abdomen: normal bowel sounds, soft, + tenderness (mild tenderness in mid abdominal area) Neurologic/Psychiatric: alert, normal mood/affect, oriented x 3 Laboratory Results 04/13/17 06:58 04/13/17 06:58 Test 04/13/17 06:58 04/13/17 16:53 Red Blood Count 3.66 M/uL (4.2-5.4) Mean Corpuscular Volume 89.3 fL (80-100) Mean Corpuscular Hemoglobin 29.5 pg (25-34) Mean Corpuscular Hemoglobin Concent 33.0 g/dl (32-36) RDW Standard Deviation 61.0 fL (36.4-46.3) RDW Coefficient of Variation 18.7 % (11.5-14.5) Mean Platelet Volume 9.2 fL (7.4-10.4) Anion Gap 7.0 mmol/L (3-11) Est Creatinine Clear Calc Drug Dose 15.5 ml/min Estimated GFR () 13.5 Estimated GFR (Non- 11.6 BUN/Creatinine Ratio 21.7 (10-20) Calcium Level 8.7 mg/dl (8.5-10.1) Bedside Glucose 109 mg/dl (70-90) Assessment and Plan 57-year-old female with a past medical history of polycystic kidney disease/ ESRD status post renal transplant in 1999, insulin-dependent diabetes, recurrent C. difficile infections, recurrent pancreatitis, recurrent small bowel obstruction status post hemicolectomy presented to the ER with complaints of nausea ,vomiting and abdominal pain. Was found to have a small bowel obstruction on CT . has been having BMs , pain is improved Small bowel obstruction: Has a history of recurrent small bowel obstructions status post hemicolectomy - CT abdomen and pelvis: Findings compatible with high-grade partial small bowel obstruction with transition point within the left lower quadrant as above, likely secondary to underlying adhesions. Mild reactive mesenteric edema is seen adjacent to the transition point. -Surgery consult- appreciate recommendations - fluid liquids tonight-advance tomorrow - Pain control with Dilaudid Recurrent C. difficile infections: - Patient had failed Flagyl and vancomycin in the past - Currently on fidaxomicin PCKD/ESRD s/p renal transplant - Creatinine at 4, baseline 3.5 - Continue IV fluids -Nephrology consult -appreciate recommendations - will restart immunosuppressive therapy with cyclosporine and Sirolimus - Prednisone converted to hydrocortisone Hypertension: - Uses Norvasc and carvedilol at home- currently held Recurrent pancreatitis: - Pancreas atrophied as evidenced on CT - lipase at 766, trend lipases Migraine headaches -Maxalt as needed DVT prophylaxis: Heparin subcutaneous Full code Disposition: [facility] History Resident Physician Supervision Note: I was present with Dr. Allen during the history and exam. I discussed the case with the resident and agree with the findings and plan as documented in the note. Any exceptions or clarifications are listed here. Pt reports single episode of N/V yesterday afternoon. Presently, n/v resolved, tolerating clears, 2 BM since yesterday (nonbloody). Reports no lightheadedness , chest pain, FERRIS, vision changes. Would like a full liquid diet - having discussed with her in detail the risks and benefits of slow progression of oral intake in the setting of her SBO, she is adamant that she understands these consequences and we will move forward with advancing to full liquid today. General Appearance: WD/WN, no apparent distress Respiratory: chest non-tender, lungs clear, normal breath sounds, no respiratory distress Cardiovascular: normal peripheral pulses, regular rate, rhythm, no edema, no murmur Gastrointestinal: normal bowel sounds, soft, no organomegaly, tenderness (LUQ significantly improved) Assessment/Plan 57 y/o female h/o PCKD w/ CKD 4 s/p renal transplant w/ failure, IDDM, C.diff, h /o pancreatitis and recurrent SBO s/p SB resection p/w SBO SBO - surgery consulted and input appreciated - slowly advance diet, close monitoring Recurrent C. diff - repeat testing negative at present PCKD w/ ESRD w/ MARCIO - nephrology aware and recommendations appreciated - gentle IVF, continue HC, immunosuppresive therapy, repeat BMP in AM HTN - continue home regimen Migraine headache - juan MARCOS Resident Tracking Resident Involvement: Resident Care Provided Care Provided: Adult Hospital Medicine
[2017-04-13] MEDS: LORAZEPAM INJ 0.5 MG in SYRINGE 0.25 ML IV PRN (18:27)
[2017-04-13] MEDS ORDERED: VENLAFAXINE HCL 37.5 MG TAB PO SCH (21:00)
[2017-04-13 23:23] VITALS: BP 156/84; PULSE 59; TEMP 36.6; O2SAT 99
[2017-04-14] MEDS: HEPARIN SOD 5000 UNIT/0.5 ML CARP SQ SCH (06:00)
[2017-04-14] MEDS: ONDANSETRON INJ 2 MG/ML 2 ML VIAL IV PRN (06:00)
[2017-04-14 06:06] LABS: MEAN CELL VOLUME 87.5 fL (80-100); MEAN CORPUSCULAR HEMOGLOBIN 26.8 pg (25-34); MEAN CORPUSCULAR HGB CONC 30.6 g/dl (32-36); MEAN PLATELET VOLUME 9.6 fL (7.4-10.4); PLATELET COUNT 199 K/uL (130-400); WHITE BLOOD COUNT 4.87 K/uL (4.8-10.8)
[2017-04-14] MEDS: HYDROCORTISONE IV 25 MG in SYRINGE 0 ML IV SCH (06:20)
[2017-04-14 07:20] VITALS: BP 161/78; PULSE 66; TEMP 36.4; O2SAT 99
[2017-04-14] MEDS: INSULIN ASPART 100 UNITS/ML 3 ML PEN SC SCH ×2 (08:00→12:00)
[2017-04-14] MEDS: CycloSPORINE (SANDIMMUNE) 25 MG CAP PO SCH (08:14)
[2017-04-14] MEDS: SIROLIMUS 0.5 MG TAB PO SCH (08:14)
--- NOTE | 2017-04-14 10:03 | Surgery Progress Note ---
Surgery Progress Note Date of Service Apr 14, 2017. Subjective + feeling well pt is doing better, passed BM, and gas, no abdominal pain, no vomiting, she tolerated clear diet, pt wants to go home today, Objective Vital Signs: Date Time Temp Pulse Resp B/P (MAP) Pulse Ox O2 Delivery O2 Flow Rate FiO2 04/14/17 07:32 Room Air 04/14/17 07:20 36.4 66 16 161/78 (105) 99 Room Air 04/13/17 23:49 Room Air 04/13/17 23:23 36.6 59 16 156/84 (108) 99 Room Air 04/13/17 20:00 Room Air 04/13/17 15:28 37.0 70 16 158/79 (105) 99 Room Air General Appearance: WD/WN, no apparent distress Head: normocephalic Neck: supple, no JVD Respiratory/Chest: chest non-tender, lungs clear Cardiovascular: regular rate, rhythm, no edema Abdomen: normal bowel sounds, non tender, non distended, soft Extremities: normal range of motion, non-tender, normal inspection Laboratory Results: Results Past 24 Hours Test 04/13/17 12:16 04/13/17 16:53 04/13/17 20:31 04/14/17 05:37 Range/Units Bedside Glucose 150 109 129 70-90 mg/dl White Blood Count 4.87 4.8-10.8 K/uL Red Blood Count 4.00 4.2-5.4 M/uL Hemoglobin 10.7 12.0-16.0 g/dL Hematocrit 35.0 37-47 % Mean Corpuscular Volume 87.5 80-100 fL Mean Corpuscular Hemoglobin 26.8 25-34 pg Mean Corpuscular Hemoglobin Concent 30.6 32-36 g/dl RDW Standard Deviation 58.2 36.4-46.3 fL RDW Coefficient of Variation 18.0 11.5-14.5 % Platelet Count 199 130-400 K/uL Mean Platelet Volume 9.6 7.4-10.4 fL Test 04/14/17 08:12 04/14/17 09:31 Range/Units Bedside Glucose 119 70-90 mg/dl Assessment & Plan F/U SBO not passed gas or BM yet WBC normal, KUB today continue treatment, will F/U, 04/13/2017 pt is doing better, passed gas and BM clear diet, any worse symptoms, pt wants to transfer to [facility], base on complicated case, will F/U, 04/14/2017 F/U SBO pt is doing better, passed BM, no abdominal pain, pt can D/C home today, F/U me 1 week, I sign off today, please call if need me, Thanks, F/U SBO not passed gas or BM yet WBC normal, KUB today continue treatment, will F/U, 04/13/2017 pt is doing better, passed gas and BM clear diet, any worse symptoms, pt wants to transfer to [facility], base on complicated case, will F/U,
--- NOTE | 2017-04-14 10:25 | Nephrology Progress Note ---
Nephrology Progress Note Date of Service Apr 14, 2017. Chief Complaint Advanced renal insufficiency. History of kidney transplant for end-stage renal disease secondary to adult polycystic kidney disease. Current small bowel obstruction with prerenal azotemia superimposed on chronic renal disease. Subjective Mrs. Bowling continues to do well. She has tolerated a clear liquid and full liquid diet. She has had no recurrent abdominal pain other than some soreness that she attributed to her previous vomiting. She is passing gas and moving her bowels. She has no symptoms of uremia and no symptoms of volume overload. She has no other complaints. She is anxious for discharge. Review of Systems A complete review of systems was performed. Pertinent positives are noted above. All other systems are negative. Vital Signs Last 8 Hrs Date Time Temp Pulse Resp B/P (MAP) Pulse Ox O2 Delivery O2 Flow Rate FiO2 04/14/17 07:32 Room Air 04/14/17 07:20 36.4 66 16 161/78 (105) 99 Room Air Last Recorded Weight Weight (Kilograms): 68.900 Physical Exam On physical examination, Mrs. Bowling appears relatively well and certainly in no distress. Her vital signs are as listed. Skin: Normal skin turgor. Scars from prior surgical procedures. No rash or infiltrative skin disease. Lymphatics: No adenopathy. Head: Normal Eyes: Grossly normal. She is not icteric. Extraocular movements are intact. Pupils are equal and reactive to light. The ocular fundi were not examined. Ears, nose, mouth and throat: All unremarkable. Her oral mucous membranes are moist. Neck: Supple. No jugular venous distention, carotid bruit or thyromegaly. Chest: Clear to auscultation. Cor: Regular rhythm. S1 and S2 are normal. Soft systolic murmur at the base. No gallop sounds are heard. Abdomen: Firm. Nontender. No organomegaly or mass. Bowel sounds are active. No abdominal bruits. Extremities: No cyanosis or clubbing. She has trace lower extremity edema. Neurologic: No lateralizing neurologic findings. Family History Kidney disease Kidney stones Social History Smoking Status: Never smoker Smokeless Tobacco Use: No Alcohol Use: none Drug Use: none Marital Status: Housing Status: lives with family Occupation: employed . 2 grown children. She neither smokes nor drinks. 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 Laboratory Results Past 24 Hours 04/14/17 05:37 Test 04/13/17 12:16 04/13/17 16:53 04/13/17 20:31 04/14/17 05:37 Bedside Glucose 150 mg/dl (70-90) 109 mg/dl (70-90) 129 mg/dl (70-90) Red Blood Count 4.00 M/uL (4.2-5.4) Mean Corpuscular Volume 87.5 fL (80-100) Mean Corpuscular Hemoglobin 26.8 pg (25-34) Mean Corpuscular Hemoglobin Concent 30.6 g/dl (32-36) RDW Standard Deviation 58.2 fL (36.4-46.3) RDW Coefficient of Variation 18.0 % (11.5-14.5) Mean Platelet Volume 9.6 fL (7.4-10.4) Test 04/14/17 08:12 Bedside Glucose 119 mg/dl (70-90) Allergies Coded Allergies: Iodinated Diagnostic Agents (Verified Allergy, Severe, Hx Kidney Transplant, 04/10/17) Statins (Verified Allergy, Severe, "PANCREATITIS", 04/10/17) Hydrochlorothiazide (Verified Allergy, Mild, 04/10/17) Sulfa Antibiotics (Verified Allergy, Mild, ., 04/10/17) Sumatriptan (Verified Allergy, Mild, 04/10/17) Triamterene (Verified Allergy, Mild, 04/10/17) Atorvastatin (Verified Allergy, Unknown, ?, 04/10/17) Doxycycline (Verified Allergy, Unknown, UNKNOWN, 04/10/17) Levofloxacin (Verified Allergy, Unknown, joint pain, 04/10/17) Adhesives (Verified Adverse Reaction, Unknown, SKIN TEAR, 04/10/17) Ciprofloxacin (Verified Adverse Reaction, Unknown, FATIGUE, 04/10/17) Morphine (Verified Adverse Reaction, Unknown, INEFFECTIVE, 04/10/17) Medications Current Inpatient Medications Medications (Trade) Dose Ordered Sig/Dominique Route Start Time Stop Time Status Last Admin Dose Admin Heparin Sodium (Porcine) (Heparin Sq 5000 Unit/0.5ml) 5,000 unit Q8H SQ 04/11/17 06:00 05/11/17 05:59 04/13/17 05:23 5,000 UNIT Ondansetron HCl (Zofran Inj) 4 mg Q6H PRN IV 04/11/17 02:15 05/11/17 02:14 04/14/17 06:00 4 MG Hydromorphone HCl (Dilaudid Inj) 0.5 mg Q3H PRN IV 04/11/17 02:30 04/25/17 02:29 04/12/17 18:27 0.5 MG Hydrocortisone Sodium Succinate 25 mg/Syringe 0.5 ml @ 4 mls/min Q12H IV 04/11/17 06:00 05/11/17 05:59 04/14/17 06:20 4 MLS/MIN Glucose (Glucose 40% Gel) 15-30 GRAMS 15 GRAMS... UD PRN PO 04/11/17 04:45 05/11/17 04:44 Glucose (Glucose Chew Tab) 4-8 Tablets 4 Tabl... UD PRN PO 04/11/17 04:45 05/11/17 04:44 Dextrose (Dextrose 50% 50ML Syringe) 25-50ML OF 50% DW IV FOR... UD PRN IV 04/11/17 04:45 05/11/17 04:44 Glucagon (Glucagon Inj) 1 mg UD PRN SQ 04/11/17 04:45 05/11/17 04:44 Lorazepam 0.5 mg/ Syringe 0.5 ml @ 0.5 mls/min Q4H PRN IV 04/12/17 06:15 05/12/17 06:14 04/13/17 18:27 0.5 MLS/MIN Cyclosporine (Sandimmune Cap) 75 mg BID PO 04/12/17 21:00 05/12/17 20:59 04/14/17 08:14 75 MG Sirolimus (Sirolimus) 1 mg QAM PO 04/12/17 16:00 05/12/17 15:59 04/14/17 08:14 1 MG Insulin Aspart (novoLOG ASPART) SLIDING SCALE G... ACHS SC 04/13/17 08:00 05/13/17 07:59 Venlafaxine HCl (effeXOR TAB) 37.5 mg HS PO 04/13/17 21:00 05/13/17 20:59 04/13/17 21:01 37.5 MG Impression Mrs. Bowling continues to do quite well as her diet has been advanced. She's had no recurrent abdominal pain other than the soreness that she attributed to vomiting. It has not gotten worse over the course of the past 24 hours. She is passing gas and moving her bowels. She appears back to baseline. At the time of this dictation, her repeat renal function studies have not yet been reported. I would expect evidence of continued improvement as she continues to be rehydrated. Recommendations I see no reason why she can't be discharged to home to continue her routine diet and medication program's. She knows that she is to either report back to this hospital or the [facility] if she has recurrent symptoms of a small bowel obstruction. Otherwise, she will follow-up with me on April 18. Her appointment should be scheduled with me or with my PA, Serene Herbert, at a time when I am in the office.
[2017-04-14 10:29] LABS: CALCIUM 9.1 mg/dl (8.5-10.1); CREATININE 3.3 mg/dl (0.60-1.20); POTASSIUM 3.3 mmol/L (3.5-5.1)
--- NOTE | 2017-04-14 18:34 | Discharge Summary ---
Discharge Summary Date of Service Apr 14, 2017. (Clark Rivera M.D.) Discharge Summary Admission Date: Apr 11, 2017 at 02:18 Discharge Date: Apr 14, 2017 Discharge Disposition: Home Principal Diagnosis: SBO Immunizations: Have You Had Influenza Vaccine: Yes Influenza Vaccine Date: Jul 11, 2012 History of Tetanus Vaccine?: Yes History of Pneumococcal: Yes History of Hepatitis B Vaccine: Yes Hepatitis Immunization Date: February 09, 2008 (Clark Rivera M.D.) Discharge Exam Ms. Bowling reports that she feels well today. She denies any abdominal pain, fever or vomiting, but had one episode of nausea this morning which resolved with Zofran. Her last bowel movement was this morning, and was diarrhea, however she states that this is normal for her after an SBO. She denied the presence of blood in her stool. Review of Systems: Constitutional: No fever, No chills, No sweats, No weight loss Cardiovascular: No chest pain, No orthopnea, No PND, No edema Abdomen: No pain, No nausea, No vomiting, No diarrhea, No constipation Physical Exam: General Appearance: WD/WN, no apparent distress Neck: supple, no adenopathy Respiratory/Chest: chest non-tender, lungs clear, normal breath sounds, no respiratory distress, no accessory muscle use Cardiovascular: regular rate, rhythm, no edema, no gallop, no JVD, no murmur , normal peripheral pulses Abdomen / GI: normal bowel sounds, non tender, soft, no organomegaly, no pulsatile mass (Clark Rivera M.D.) Hospital Course Ms. Bowling is a 57 year old female with a hx of PCKD/ESRD s/p renal transplant in 1999, DM, recurrent C-diff, recurrent pancreatitis and SBO who presented with n/ v and abdominal pain. CT revealed a SBO. General surgery was consulted and she had an NG tube placed to decompress her stomach, and was then advanced to a clear liquid diet, which she tolerated well. Her c-diff toxin screen was negative at this time. Nephrology was consulted and they recommended restarting her immunosuppressive therapy with cyclosporine and Sirolimus, and changing her prednisone to hydrocortisone. She also presented with a creatinine of 4, elevated from her baseline of 3.5. Upon d/c, her creatinine was 3.3. Nephrology will follow up with her in the outpatient setting next week to recheck her labs, Before she could be discharged, Ms. Bowling left AMA this afternoon. Total Time Spent: Less than 30 minutes This includes examination of the patient, discharge planning, medication reconciliation, and communication with other providers. (Clark Rivera M.D.) Discharge Instructions Please refer to the electronic Patient Visit Report (Discharge Instructions) for additional information. (Clark Rivera M.D.) Additional Copies To Shruthi Mcbride D.O. Resident Tracking Resident Involvement: Resident Care Provided Care Provided: [facility] (Clark Rivera M.D.) History Resident Physician Supervision Note: I was present with Dr. Rivera during the history and exam. I discussed the case with the resident and agree with the findings and plan as documented in the note. Any exceptions or clarifications are listed here. Pt resting in bed at time of examination. Tolerated clear liquid diet well overnight last night without new abdominal pain, nausea, vomiting. Had one bowel movement in the morning. Would like to trial full liquids and then likely regular diet at discharge. Prior to re-evaluation at lunch time, patient expressed dissatisfaction with her diet and demanded to speak with a physician (per nursing) but within 15 minutes became irritated and left AMA (Art Marsh MD) General Appearance: WD/WN, no apparent distress Respiratory: chest non-tender, lungs clear, normal breath sounds, no respiratory distress Cardiovascular: normal peripheral pulses, regular rate, rhythm, no murmur Gastrointestinal: normal bowel sounds, non tender, soft, no organomegaly (Art Marsh MD) Assessment/Plan 57 y/o female h/o PCKD w/ CKD 4 s/p renal transplant w/ failure, IDDM, C.diff, h /o pancreatitis and recurrent SBO s/p SB resection p/w SBO SBO - surgery consulted and input appreciated - advance diet full liq --> regular Recurrent C. diff - repeat testing negative at present PCKD w/ ESRD w/ [facility] - nephrology aware and recommendations appreciated - encourage PO hydration, continue HC, immunosuppresive therapy, repeat BMP at OP f/u HTN - continue home regimen Migraine headache - maxalt PO (Art Marsh MD)
[2017-06-26] MEDS ORDERED: DFC200 PO (11:03)
[2017-06-26] MEDS ORDERED: CEFD300C3 PO (11:03)
[2017-06-26] MEDS ORDERED: FRCT/ PO (11:08)
== END 2017-04-14 13:14 | disposition left against medical advice (07) | DRG 388 ==
LOC: C.EDB 22:31 → C.3E 04-11 02:18 → ENRESERV 04-11 02:44
PROVIDERS: ADMIT Internal Medicine; ATTEND Family Medicine
DX: K56.60 Unspecified intestinal obstruction (principal); N18.6 End stage renal disease; I12.0 Hypertensive chronic kidney disease with stage 5 chronic kidney disease or end stage renal disease; Q61.2 Polycystic kidney, adult type; Z94.0 Kidney transplant status; A04.7 Enterocolitis due to Clostridium difficile; E11.22 Type 2 diabetes mellitus with diabetic chronic kidney disease; E78.1 Pure hyperglyceridemia; J45.909 Unspecified asthma, uncomplicated; K21.9 Gastro-esophageal reflux disease without esophagitis; G43.909 Migraine, unspecified, not intractable, without status migrainosus; Z79.4 Long term (current) use of insulin; Z90.49 Acquired absence of other specified parts of digestive tract; Z84.1 Family history of disorders of kidney and ureter; Z83.6 Family history of other diseases of the respiratory system; Z86.14 Personal history of Methicillin resistant Staphylococcus aureus infection; Z91.041 Radiographic dye allergy status; Z88.2 Allergy status to sulfonamides; Z88.8 Allergy status to other drugs, medicaments and biological substances; Z88.5 Allergy status to narcotic agent; Z91.048 Other nonmedicinal substance allergy status; Z88.3 Allergy status to other anti-infective agents; Z79.899 Other long term (current) drug therapy; Z79.52 Long term (current) use of systemic steroids; Z86.73 Personal history of transient ischemic attack (TIA), and cerebral infarction without residual deficits

== ENCOUNTER 2017-04-16 07:22 | Inpatient (IN) | payer BC ==
[2017-04-16] VITALS (8 sets, daily range): BP systolic 76–100; BP diastolic 46–63; PULSE 65–98; TEMP 36.7–38.9; O2SAT 92–98; Ht 172.7 cm; Wt 65.1 kg
[~2017-04-16] VITALS: Ht 172.7 cm; Wt 65.1 kg
[~2017-04-16 07:22] MED LIST changes: -DFC200 PO; +FIDA1TAB PO
[2017-04-16] MEDS ORDERED: SODIUM CHLORIDE 0.9% 1000ML 1,000 ML IV ONE (07:45)
--- NOTE | 2017-04-16 07:51 | EMERGENCY ROOM VISIT NOTE ---
History Report prepared by Mason: [place] Under the Supervision of: Dr. Avi Mayer M.D. First contact with patient: 07:33 Chief Complaint: FEVER Stated Complaint: FEVER History of Present Illness The patient is a 57 year old female who presents to the Emergency Room with complaints of a persistent fever that started last night. The patient is also experiencing nausea, vomiting, and diarrhea that started this morning. The patient's states that she is dry heaving more than she is vomiting. He also states that she was able to eat yesterday without vomiting. She also states that she is experiencing generalized weakness. The patient's adds that the patient has been tachycardic recently which is abnormal for her. She is also experiencing a headache. The patient thinks that she might have a sinus infection from the NG tube that was had recently. The patient was admitted to the hospital 1 week ago for a bowel obstruction and was just discharged 2 days ago. The patient denies any abdominal pain and states that her current symptoms are different than the symptoms she experienced with the bowel obstruction. The patient tested negative for C Diff last week when she was in the hospital. The patient had hernia surgery on January 17. Source of History: patient Onset: last night Position: other (global) Quality: other (fever) Timing: other (persistent) Associated Symptoms: + headache, + nausea, + vomiting, + diarrhea, + weakness (generalized), No abdominal pain Note: tachycardia Review of Systems All systems have been listed, reviewed, and are negative other than those previously mentioned. Please see Additional Medical History Sheet. Past Medical & Surgical Medical Problems: (1) Abdominal pain (2) Abdominal pain (3) Acute renal insufficiency (4) Asthma, Unspecified (5) Chronic Kidney Disease, Stage Iv (Severe) (6) Clostridium difficile diarrhea (7) Diab Raeann Wo Compl, Type Ii Or Unspec Type, Uncontrolled (8) HTN (hypertension) (9) Hyperlipidemia Nec/Nos (10) Immunosuppressed status (11) Pancreatitis (12) Polycystic Kidney, Unspecified Type (13) SBO (small bowel obstruction) (14) SIRS (systemic inflammatory response syndrome) Surgical Problems: (1) Kidney transplant recipient (2) Kidney Transplant Status Family History Kidney disease Kidney stones Social History Smoking Status: Never Smoker Alcohol Use: none Drug Use: none Marital Status: Housing Status: lives with family Occupation Status: employed Current/Historical Medications Scheduled Amlodipine Besylate (Amlodipine Besylate), 1 TAB PO DAILY Azelastine HCl (Azelastine HCl), 1 SPRAYS АНДРЕЙ DAILY Biotin (Biotin 5000), 5,000 MCG PO QAM Calcium W/ Vitamins D & K (Calcium + D + K), 1 TABLET PO MWF Carvedilol (Carvedilol), 2 TAB PO QAM Cyclosporine (Sandimmune), 75 MG PO BID Estrogens, Conjugated (Premarin), 0.625 MG PO 2XWK Fidaxomicin (Dificid), 200 MG PO BID Insulin Detemir (Levemir Flextouch), 20 UNITS SC PM Krill Oil (Krill Oil [place]-3), 2 TAB PO DAILY Multivitamin (Multivitamin), 1 TAB PO QAM Ondansetron (Ondansetron HCl), 1 TAB PO BID Oxycodone HCl (Oxycodone HCl), 1 TAB PO Q6H Pantoprazole (Pantoprazole Sodium), 1 TAB PO DAILY Polysaccharide Iron Complex (Ferrex 150), 150 MG PO QPM Pramipexole (Mirapex), 0.125 MG PO HS Prednisone (Prednisone), 2.5 MG PO QAM Sirolimus (Rapamune), 1 MG PO QAM Venlafaxine Hcl (Effexor), 1 TAB PO HS Miscellaneous Medications Epoetin Kvng (Procrit), 1 DOSE INJ Allergies Coded Allergies: Iodinated Diagnostic Agents (Verified Allergy, Severe, Hx Kidney Transplant, 04/16/17) Statins (Verified Allergy, Severe, "PANCREATITIS", 04/16/17) Hydrochlorothiazide (Verified Allergy, Mild, 04/16/17) Sulfa Antibiotics (Verified Allergy, Mild, ., 04/16/17) Sumatriptan (Verified Allergy, Mild, 04/16/17) Triamterene (Verified Allergy, Mild, 04/16/17) Atorvastatin (Verified Allergy, Unknown, ?, 04/16/17) Doxycycline (Verified Allergy, Unknown, UNKNOWN, 04/16/17) Levofloxacin (Verified Allergy, Unknown, joint pain, 04/16/17) Adhesives (Verified Adverse Reaction, Unknown, SKIN TEAR, 04/16/17) Ciprofloxacin (Verified Adverse Reaction, Unknown, FATIGUE, 04/16/17) Morphine (Verified Adverse Reaction, Unknown, INEFFECTIVE, 04/16/17) Physical Exam Vital Signs Date Time Temp Pulse Resp B/P (MAP) Pulse Ox O2 Delivery O2 Flow Rate FiO2 04/16/17 13:55 36.8 04/16/17 12:30 37.0 104/52 04/16/17 10:39 36.8 77 20 99/53 94 Room Air 04/16/17 08:56 99 121/57 98 Room Air 04/16/17 07:27 37.3 69 18 105/55 96 Room Air Physical Exam GENERAL: Patient appears ill. Patient awake, alert, oriented x 3. Patient follows commands. Patient does not appear toxic. Patient is adequately hydrated and well-nourished. SKIN: No erythema, pallor, cyanosis or rash HEENT: Normal head, slight tenderness to palpation of the frontal sinuses, no tenderness to palpation of the maxillary sinuses, pupils equal, reactive to light and accommodation. Ears normal. Oral cavity and posterior pharynx appear normal. Neck: Without adenopathy, no neck vein distention. LUNGS: Clear to auscultation. No wheezes, no rales, no rhonchi. HEART: No murmurs. No gallops. No rubs ABDOMEN: Well-healed scar from xiphoid to pubis, bowel sounds active, nontender , no masses, no rebound, no hepatomegaly or splenomegaly. EXTREMITIES: No signs of infection, ecchymosis to both lower extremities. NEUROLOGIC: Cranial nerves II-XII within normal limits. No gross motor sensory function deficits. Medical Decision & Procedures ER Provider Diagnostic Interpretation: Radiology results as stated below per my review and radiologist interpretation: CHEST 2 VIEWS ROUTINE FINDINGS: The heart is mildly enlarged. There are bilateral calcified breast implants. This obscures portions of the hemithoraces in the PA film. There is no lobar consolidation. There are no pleural effusions. There is minor left basilar atelectasis/scarring.[ There is no failure. IMPRESSION: No active disease in the chest. Electronically signed by: John Narayanan M.D. 04/16/2017 8:42 AM Dictated Date/Time: 04/16/2017 8:40 AM KUB FINDINGS: There are multiple surgical clips within the abdomen. There are multiple pelvic basin calcifications, similar to the prior study and likely representing phleboliths. There is a borderline dilated left upper quadrant small bowel loop.. There are no transition zones to indicate bowel obstruction. There are calcified breast implants. IMPRESSION: Postsurgical change. Borderline dilated left upper quadrant small bowel loop. No conventional radiographic evidence of a high-grade bowel obstruction. Electronically signed by: John Narayanan M.D. 04/16/2017 11:28 AM Dictated Date/Time: 04/16/2017 11:24 AM Laboratory Results 04/16/17 08:00 Red Blood Count 4.14, Mean Corpuscular Volume 87.0, Mean Corpuscular Hemoglobin 27.8, Mean Corpuscular Hemoglobin Concent 31.9, Mean Platelet Volume 10.0, Neutrophils (%) (Auto) 74.1, Lymphocytes (%) (Auto) 6.6, Monocytes (%) (Auto) 18.0, Eosinophils (%) (Auto) 0.3, Basophils (%) (Auto) 0.1, Neutrophils # (Auto ) 8.52, Lymphocytes # (Auto) 0.76, Monocytes # (Auto) 2.07, Eosinophils # (Auto ) 0.04, Basophils # (Auto) 0.01 04/16/17 08:00 Test 04/16/17 08:00 04/16/17 10:33 04/16/17 13:53 White Blood Count 11.50 K/uL (4.8-10.8) Red Blood Count 4.14 M/uL (4.2-5.4) Hemoglobin 11.5 g/dL (12.0-16.0) Hematocrit 36.0 % (37-47) Mean Corpuscular Volume 87.0 fL (80-100) Mean Corpuscular Hemoglobin 27.8 pg (25-34) Mean Corpuscular Hemoglobin Concent 31.9 g/dl (32-36) Platelet Count 199 K/uL (130-400) Mean Platelet Volume 10.0 fL (7.4-10.4) Neutrophils (%) (Auto) 74.1 % Lymphocytes (%) (Auto) 6.6 % Monocytes (%) (Auto) 18.0 % Eosinophils (%) (Auto) 0.3 % Basophils (%) (Auto) 0.1 % Neutrophils # (Auto) 8.52 K/uL (1.4-6.5) Lymphocytes # (Auto) 0.76 K/uL (1.2-3.4) Monocytes # (Auto) 2.07 K/uL (0.11-0.59) Eosinophils # (Auto) 0.04 K/uL (0-0.5) Basophils # (Auto) 0.01 K/uL (0-0.2) RDW Standard Deviation 57.7 fL (36.4-46.3) RDW Coefficient of Variation 18.1 % (11.5-14.5) Immature Granulocyte % (Auto) 0.9 % Immature Granulocyte # (Auto) 0.10 K/uL (0.00-0.02) Anion Gap 11.0 mmol/L (3-11) Est Creatinine Clear Calc Drug Dose 12.6 ml/min Estimated GFR () 10.5 Estimated GFR (Non- 9.1 BUN/Creatinine Ratio 13.5 (10-20) Calcium Level 8.9 mg/dl (8.5-10.1) Total Bilirubin 1.1 mg/dl (0.2-1) Aspartate Amino Transf (AST/SGOT) 22 U/L (15-37) Alanine Aminotransferase (ALT/SGPT) 18 U/L (12-78) Alkaline Phosphatase 79 U/L (45-117) Total Protein 7.2 gm/dl (6.4-8.2) Albumin 3.2 gm/dl (3.4-5.0) Globulin 4.0 gm/dl (2.5-4.0) Albumin/Globulin Ratio 0.8 (0.9-2) Lipase 691 U/L (73-393) Chemistry Specimen Hemolysis Urine Color DK YELLOW Urine Appearance CLOUDY (CLEAR) Urine pH 5.0 (4.5-7.5) Urine Specific [place] 1.025 (1.000-1.030) Urine Protein 2+ (NEG) Urine Glucose (UA) NEG (NEG) Urine Ketones TRACE (NEG) Urine Occult Blood NEG (NEG) Urine Nitrite NEG (NEG) Urine Bilirubin NEG (NEG) Urine Urobilinogen NEG (NEG) Urine Leukocyte Esterase NEG (NEG) Urine WBC (Auto) 1-5 /hpf (0-5) Urine RBC (Auto) 0-4 /hpf (0-4) Urine Hyaline Casts (Auto) 1-5 /lpf (0-5) Urine Epithelial Cells (Auto) >30 /lpf (0-5) Urine Bacteria (Auto) NEG (NEG) Urine Yeast (Auto) (NONE PRSENT) Date/Time Source Procedure Growth Status 04/16/17 10:33 Stool C.difficile Toxin B Gene (PCR) - Final No C. difficile toxin B gene detected Complete Laboratory results as stated above per my review. Medications Administered Medications (Trade) Dose Ordered Sig/Dominique Route Start Time Stop Time Status Last Admin Dose Admin Ondansetron HCl (Zofran Inj) 4 mg Q1HWA PRN IV 04/16/17 07:45 05/16/17 07:44 04/16/17 10:40 4 MG Sodium Chloride 1,000 ml @ 1,000 mls/hr Q1H ONCE IV 04/16/17 07:45 04/16/17 08:44 DC 04/16/17 08:15 1,000 MLS/HR Acetaminophen (Tylenol Tab) 1,000 mg NOW STAT PO 04/16/17 08:46 04/16/17 08:47 DC 04/16/17 08:52 1,000 MG Sodium Chloride 1,000 ml @ 500 mls/hr Q2H STAT IV 04/16/17 10:54 04/16/17 12:53 DC 04/16/17 11:27 500 MLS/HR Promethazine HCl 12.5 mg/Sodium Chloride 50.5 ml @ 202 mls/hr NOW STAT IV 04/16/17 12:40 04/16/17 12:54 DC 04/16/17 12:44 202 MLS/HR ED Course 0733: Past medical records reviewed. The patient was evaluated in room B2. A complete history and physical examination was performed. 0745: Ordered Sodium Chloride 1000 ml @ 1000 mls/hr IV, Zofran Inj 4 mg IV 0813: The nurse told me that the patient forgot to mention that she has been experiencing a cough. The patient requested to have a chest x-ray done. 0846: Ordered Tylenol Tab 1000 mg PO 0936: I reassessed the patient. She is feeling a little better and still receiving fluids. I discussed her lab and x-ray results with her. 1049: I reevaluated the patient. She is complaining of some abdominal bloating and thinks that she might be obstructed again. On reexamination, she has good bowel sounds and her abdomen is still nontender. I am going to order an abdominal x-ray and she is in agreement with that. 1054: Ordered Sodium Chloride 1000 ml @ 500 mls/hr IV 1224: I reassessed the patient. She is still nauseous. I discussed her abdominal x-ray results with her. 1240: Ordered Promethazine HCl 12.5 mg/Sodium Chloride 50.5 ml @ 202 mls/hr IV 1323: I reevaluated the patient. She is feeling better. We are going to see if she is able to tolerate drinking water. 1351: I reassessed the patient. She states that she is freezing and it appears that she is experiencing rigors. She does not have a fever at this time. I discussed today's findings with her. She verbalized agreement of the treatment plan. The patient will be evaluated for further management. 1401: Discussed the patient's case with Dr. Mejia of the [facility]. The patient will be evaluated for further management. Medical Decision Nurses notes reviewed. Medical history sheet reviewed. Differential diagnosis includes but is not limited to: acute gastroenteritis, C Diff, sinusitis, dehydration, metabolic disorder. The patient is here with fever, nausea, vomiting and diarrhea. She has a prior history of a kidney transplant and elevated BUN/creatinine. The patient also has a prior history of C. difficile. There is some question of possible aspiration. Multiple labs come imaging and EKG were performed. Please see above. The patient has no evidence of pneumonia on x-ray. White count is minimally elevated. The patient has a dilated loop of bowel on x-ray. BUN and creatinine are both up. Patient did develop rigors near the end of her stay in the ED. She was given multiple doses of Zofran followed by Phenergan. The patient was hydrated with IV fluids and later she was able to drink some oral fluids. In light of the patient's continuing symptoms I believe that she will require further evaluation in the hospital. Blood cultures were obtained. I discussed care with the patient, her and the hospitalist. Medication Reconcilliation Current Medication List: was personally reviewed by me Blood Pressure Screening Patient's blood pressure: Normal blood pressure Consults Time Called: [phone] Consulting Physician: Dr. Mejia - [facility] Returned Call: [phone] Discussed the patient's case with Dr. Mejia of the [facility]. The patient will be evaluated for further management. Impression Primary Impression: Nausea, vomiting, and diarrhea Additional Impressions: Renal insufficiency Ileus Rigors Scribe Attestation The scribe's documentation has been prepared under my direction and personally reviewed by me in its entirety. I confirm that the note above accurately reflects all work, treatment, procedures, and medical decision making performed by me. Departure Information Dispostion Being Evaluated By Hospitalist Referrals Shruthi Mcbride D.O. (PCP) Patient Instructions My [facility] Problem Qualifiers
[2017-04-16] MEDS: ONDANSETRON INJ 2 MG/ML 2 ML VIAL IV PRN ×2 (08:05→10:40)
[2017-04-16 08:12] LABS: BASO % 0.1 %; BASO ABS # 0.01 K/uL (0-0.2); COMPLETE YES; EOS % 0.3 %; IG% 0.9 %; LYMPH % 6.6 %; LYMPH ABS # 0.76 K/uL (1.2-3.4); MEAN CORPUSCULAR HEMOGLOBIN 27.8 pg (25-34); MEAN CORPUSCULAR HGB CONC 31.9 g/dl (32-36); NEUT % 74.1 %; PLATELET COUNT 199 K/uL (130-400); RED BLOOD COUNT 4.14 M/uL (4.2-5.4)
--- NOTE | 2017-04-16 08:43 | DIAGNOSTIC IMAGING REPORT ---
CHEST 2 VIEWS ROUTINE CLINICAL HISTORY: cough COMPARISON STUDY: 04/10/2017 FINDINGS: The heart is mildly enlarged. There are bilateral calcified breast implants. This obscures portions of the hemithoraces in the PA film. There is no lobar consolidation. There are no pleural effusions. There is minor left basilar atelectasis/scarring.[ There is no failure. IMPRESSION: No active disease in the chest. Electronically signed by: John Narayanan M.D. 04/16/2017 8:42 AM Dictated Date/Time: 04/16/2017 8:40 AM
[2017-04-16] MEDS ORDERED: ACETAMINOPHEN 325 MG TAB PO STA (08:46)
[2017-04-16 08:54] LABS: ALB/GLOB RATIO 0.8 (0.9-2); BUN/CREATININE RATIO 13.5 (10-20); CALCIUM 8.9 mg/dl (8.5-10.1); CREATININE 4.9 mg/dl (0.60-1.20)
[2017-04-16 10:50] LABS: URINE APPEARANCE CLOUDY (CLEAR); URINE BILIRUBIN NEG (NEG); URINE COLOR DK YELLOW; URINE EPITHELIAL CELL AUTO >30 /lpf (0-5); URINE NITRITE NEG (NEG); URINE SPECIFIC GRAVITY 1.025 (1.000-1.030); UROBILINOGEN NEG (NEG); ZZUR CULT IF INDIC CLEAN CATCH YES
[2017-04-16 10:54] LABS: MANUAL MICROSCOPIC REQUIRED? NO; REVIEW REQ? YES
[2017-04-16] MEDS ORDERED: SODIUM CHLORIDE 0.9% 1000ML 1,000 ML IV STA (10:54)
--- NOTE | 2017-04-16 11:29 | DIAGNOSTIC IMAGING REPORT ---
KUB CLINICAL HISTORY: Abdominal pain. Possible bowel obstruction. COMPARISON STUDY: 04/10/2017 FINDINGS: There are multiple surgical clips within the abdomen. There are multiple pelvic basin calcifications, similar to the prior study and likely representing phleboliths. There is a borderline dilated left upper quadrant small bowel loop.. There are no transition zones to indicate bowel obstruction. There are calcified breast implants. IMPRESSION: Postsurgical change. Borderline dilated left upper quadrant small bowel loop. No conventional radiographic evidence of a high-grade bowel obstruction. Electronically signed by: John Narayanan M.D. 04/16/2017 11:28 AM Dictated Date/Time: 04/16/2017 11:24 AM
[2017-04-16] MEDS ORDERED: PROMETHAZINE HCL INJ 25 MG/ML 1 ML VIAL IV STA (12:27)
[2017-04-16] MEDS ORDERED: PROMETHAZINE HCL INJ 12.5 MG in SODIUM CHLORIDE 0.9% 50ML 50 ML IV STA (12:40)
[2017-04-16] MEDS ORDERED: HYDROmorphone INJ 1 MG/ML SYR IV ONE (15:30)
[2017-04-16] MEDS ORDERED: ACETAMINOPHEN 325 MG TAB PO PRN (16:30)
[2017-04-16] MEDS ORDERED: ONDANSETRON INJ 2 MG/ML 2 ML VIAL IV PRN (16:30)
[2017-04-16] MEDS ORDERED: PROMETHAZINE HCL INJ 12.5 MG in SODIUM CHLORIDE 0.9% 50ML 50 ML IV PRN (16:30)
[2017-04-16] MEDS ORDERED: POLYETHYLENE (MIRALAX) 17 GM PACK PO PRN (16:30)
[2017-04-16] MEDS ORDERED: ALUMINUM/MAGNESIUM/SIMETH (MAALOX MAX) 30 ML UDC PO PRN (16:30)
[2017-04-16] MEDS ORDERED: PIPERACILL/TAZOBAC IV 2.25 GM in DEXTROSE 5% 100ML 100 ML IV SCH (16:30)
[2017-04-16] MEDS ORDERED: MAGNESIUM HYDROXIDE SUSP 30 ML UDC PO PRN (16:30)
[2017-04-16] MEDS ORDERED: CRG625 PO (16:41)
[2017-04-16] MEDS ORDERED: SIRO1TAB PO (16:43)
[2017-04-16] MEDS ORDERED: ACETAMINOPHEN 325 MG TAB ONE (16:52)
[2017-04-16] MEDS ORDERED: DEXTROSE 50% 50 ML SYR IV PRN (17:00)
[2017-04-16] MEDS ORDERED: GLUCAGON FOR INJ 1 MG VIAL SQ PRN (17:00)
[2017-04-16] MEDS ORDERED: GLUCOSE 40% GEL 15 GM TUBE PO PRN (17:00)
[2017-04-16] MEDS ORDERED: GLUCOSE 10 TABS/TUBE PO PRN (17:00)
[2017-04-16] MEDS ORDERED: PIPERACILL/TAZOBAC CONSULT ACTIVE PRN (17:30)
[2017-04-16] MEDS ORDERED: VANCOMYCIN CONSULT ACTIVE PRN (17:30)
--- NOTE | 2017-04-16 17:36 | History and Physical ---
History & Physical Date & Time of Service: Apr 16, 2017 at 16:50 Chief Complaint: FEVER Primary Care Physician: Shruthi Mcbride D.O. History of Present Illness Source: patient, spouse, clinic records, hospital records This is a 57 y/o female with a history of polycystic kidney disease s/p bilateral nephrectomy and left renal transplant, anemia of chronic disease, DM II, HTN, HLD, RLS, and h/o CVA who presented to the ED on 04/16 with nausea, vomiting, diarrhea, fevers, and weakness. The patient recently admitted on April 11 with a small bowel obstruction requiring an NG tube. The patient left AMA on April 14. After returning home that night, the patient had been feeling well. The following day the patient began to express nausea, vomiting, and diarrhea. She denies seeing any blood in the vomit or diarrhea. The patient has not been eating due to the vomiting. The patient's states that she had fevers up to 101F at home. She denies feeling feverish currently, the states she had rigors earlier today in the ED. She complains of generalized weakness and fatigue. She also complains of a cough. The patient had also earlier complained of a headache, but after receiving Dilaudid this was resolved during my interview with her. The patient denies sweats, chest pain, palpitations, claudication, wheezing, shortness of breath, abdominal pain , dysuria, hematuria, urinary retention, paralysis, numbness and tingling. Past Medical/Surgical History Medical Problems: (1) Abdominal pain Status: Resolved (2) Abdominal pain Status: Resolved (3) Asthma, Unspecified Status: Chronic (4) Chronic Kidney Disease, Stage Iv (Severe) Status: Chronic (5) Diab Raeann Wo Compl, Type Ii Or Unspec Type, Uncontrolled Status: Chronic (6) HTN (hypertension) Status: Chronic (7) Hyperlipidemia Nec/Nos Status: Chronic (8) Polycystic Kidney, Unspecified Type Status: Chronic Anemia of chronic disease Depression RLS GERD History of CVA Surgical Problems: (1) Kidney Transplant Status Status: Resolved B/l nephrectomy H/o partial colectomy w/colostomy. H/o colostomy take down H/o several abdominal hernia repairs H/o breast surgery Ho cholecystectomy H/o Family History Breast cancer Diabetes mellitus Heart disease Kidney disease Kidney stones Social History Smoking Status: Former Smoker (smoked in her teens) Smokeless Tobacco Use: No Alcohol Use: none Drug Use: none Marital Status: Housing status: lives with significant other Occupational Status: employed Immunizations History of Influenza Vaccine: Yes Influenza Vaccine Date: Jul 11, 2012 History of Tetanus Vaccine?: Yes History of Pneumococcal: Yes History of Hepatitis B Vaccine: Yes Hepatitis Immunization Date: February 09, 2008 Multi-Drug Resistant Organisms History of MDRO: No Allergies Coded Allergies: Iodinated Diagnostic Agents (Verified Allergy, Severe, Hx Kidney Transplant, 04/16/17) Statins (Verified Allergy, Severe, "PANCREATITIS", 04/16/17) Hydrochlorothiazide (Verified Allergy, Mild, 04/16/17) Sulfa Antibiotics (Verified Allergy, Mild, ., 04/16/17) Sumatriptan (Verified Allergy, Mild, 04/16/17) Triamterene (Verified Allergy, Mild, 04/16/17) Atorvastatin (Verified Allergy, Unknown, ?, 04/16/17) Doxycycline (Verified Allergy, Unknown, UNKNOWN, 04/16/17) Levofloxacin (Verified Allergy, Unknown, joint pain, 04/16/17) Adhesives (Verified Adverse Reaction, Unknown, SKIN TEAR, 04/16/17) Ciprofloxacin (Verified Adverse Reaction, Unknown, FATIGUE, 04/16/17) Morphine (Verified Adverse Reaction, Unknown, INEFFECTIVE, 04/16/17) Home Medications Scheduled Amlodipine Besylate (Amlodipine Besylate), 1 TAB PO DAILY Azelastine HCl (Azelastine HCl), 1 SPRAYS АНРДЕЙ DAILY Biotin (Biotin 5000), 5,000 MCG PO QAM Calcium W/ Vitamins D & K (Calcium + D + K), 1 TABLET PO MWF Carvedilol (Carvedilol), 1 TAB PO QAM Carvedilol (Carvedilol), 2 TAB PO QPM Cyclosporine (Sandimmune), 75 MG PO BID Estrogens, Conjugated (Premarin), 0.625 MG PO 2XWK Fidaxomicin (Dificid), 200 MG PO BID Insulin Detemir (Levemir Flextouch), 20 UNITS SC PM Krill Oil (Krill Oil [place]-3), 2 TAB PO DAILY Multivitamin (Multivitamin), 1 TAB PO QAM Ondansetron (Ondansetron HCl), 1 TAB PO BID Oxycodone HCl (Oxycodone HCl), 1 TAB PO Q6H Pantoprazole (Pantoprazole Sodium), 1 TAB PO DAILY Polysaccharide Iron Complex (Ferrex 150), 150 MG PO QPM Pramipexole (Mirapex), 0.125 MG PO HS Prednisone (Prednisone), 2.5 MG PO QAM Sirolimus (Rapamune), 1 MG PO QAM Venlafaxine Hcl (Effexor), 1 TAB PO HS Miscellaneous Medications Epoetin Kvng (Procrit), 1 DOSE INJ Review of Systems Constitutional: + fever, + chills, + weakness, + fatigue, No sweats Eyes: No worsening of vision, No eye pain, No diplopia ENT: No hearing loss, No sore throat, No trouble swallowing Respiratory: + cough, No wheezing, No shortness of breath Cardiovascular: No chest pain, No claudication, No palpitations Abdomen: + nausea, + vomiting, + diarrhea, No pain, No GI bleeding Musculoskeletal: No joint pain, No muscle pain, No calf pain Genitourinary - Female: No dysuria, No urinary retention, No hematuria Neurologic: No paralysis, No weakness, No numbness/tingling Integumentary: No rash, No itch, No color change Physical Exam Vital Signs Date Time Temp Pulse Resp B/P (MAP) Pulse Ox O2 Delivery O2 Flow Rate FiO2 04/16/17 16:08 39.5 109 20 148/74 93 Room Air 04/16/17 15:45 94 Room Air 04/16/17 13:55 36.8 04/16/17 12:30 37.0 104/52 04/16/17 10:39 36.8 77 20 99/53 94 Room Air 04/16/17 08:56 99 121/57 98 Room Air 04/16/17 07:27 37.3 69 18 105/55 96 Room Air General appearance: +Appears fatigued. Well-developed, well-nourished, no apparent distress Head: Normocephalic, atraumatic Eyes: Normal inspection, PERRL, EOMI ENT: Normal ENT inspection, hearing grossly normal, pharynx normal Neck: Supple, no JVD, trachea midline Respiratory/Chest: Lungs clear to auscultation, normal breath sounds, no respiratory distress Cardiovascular: Regular rate & rhythm, no gallop, no murmur Abdomen/GI: Normal bowel sounds, non-tender, soft Extremities/Musculoskeletal: Normal inspection, no calf tenderness, no pedal edema Neurological/Psych: Alert, normal mood/affect, oriented x 3 Skin: Normal color, warm/dry, no rash Diagnostics Laboratory Results Results Past 24 Hours Test 04/16/17 08:00 04/16/17 10:33 04/16/17 14:36 Range/Units White Blood Count 11.50 4.8-10.8 K/uL Red Blood Count 4.14 4.2-5.4 M/uL Hemoglobin 11.5 12.0-16.0 g/dL Hematocrit 36.0 37-47 % Mean Corpuscular Volume 87.0 80-100 fL Mean Corpuscular Hemoglobin 27.8 25-34 pg Mean Corpuscular Hemoglobin Concent 31.9 32-36 g/dl Platelet Count 199 130-400 K/uL Mean Platelet Volume 10.0 7.4-10.4 fL Neutrophils (%) (Auto) 74.1 % Lymphocytes (%) (Auto) 6.6 % Monocytes (%) (Auto) 18.0 % Eosinophils (%) (Auto) 0.3 % Basophils (%) (Auto) 0.1 % Neutrophils # (Auto) 8.52 1.4-6.5 K/uL Lymphocytes # (Auto) 0.76 1.2-3.4 K/uL Monocytes # (Auto) 2.07 0.11-0.59 K/uL Eosinophils # (Auto) 0.04 0-0.5 K/uL Basophils # (Auto) 0.01 0-0.2 K/uL RDW Standard Deviation 57.7 36.4-46.3 fL RDW Coefficient of Variation 18.1 11.5-14.5 % Immature Granulocyte % (Auto) 0.9 % Immature Granulocyte # (Auto) 0.10 0.00-0.02 K/uL Sodium Level 134 136-145 mmol/L Potassium Level 4.0 3.5-5.1 mmol/L Chloride Level 100 98-107 mmol/L Carbon Dioxide Level 23 21-32 mmol/L Anion Gap 11.0 3-11 mmol/L Blood Urea Nitrogen 66 7-18 mg/dl Creatinine 4.90 0.60-1.20 mg/dl Est Creatinine Clear Calc Drug Dose 12.6 ml/min Estimated GFR () 10.5 Estimated GFR (Non- 9.1 BUN/Creatinine Ratio 13.5 10-20 Random Glucose 128 70-99 mg/dl Calcium Level 8.9 8.5-10.1 mg/dl Total Bilirubin 1.1 0.2-1 mg/dl Aspartate Amino Transf (AST/SGOT) 22 15-37 U/L Alanine Aminotransferase (ALT/SGPT) 18 12-78 U/L Alkaline Phosphatase 79 45-117 U/L Total Protein 7.2 6.4-8.2 gm/dl Albumin 3.2 3.4-5.0 gm/dl Globulin 4.0 2.5-4.0 gm/dl Albumin/Globulin Ratio 0.8 0.9-2 Lipase 691 73-393 U/L Chemistry Specimen Hemolysis Urine Color DK YELLOW Urine Appearance CLOUDY CLEAR Urine pH 5.0 4.5-7.5 Urine Specific [place] 1.025 1.000-1.030 Urine Protein 2+ NEG Urine Glucose (UA) NEG NEG Urine Ketones TRACE NEG Urine Occult Blood NEG NEG Urine Nitrite NEG NEG Urine Bilirubin NEG NEG Urine Urobilinogen NEG NEG Urine Leukocyte Esterase NEG NEG Urine WBC (Auto) 1-5 0-5 /hpf Urine RBC (Auto) 0-4 0-4 /hpf Urine Hyaline Casts (Auto) 1-5 0-5 /lpf Urine Epithelial Cells (Auto) >30 0-5 /lpf Urine Bacteria (Auto) NEG NEG Urine Yeast (Auto) NONE PRSENT Lactic Acid Level 1.1 0.4-2.0 mmol/L Microbiology Results 04/16/17 Blood Culture, Received Pending 04/16/17 Blood Culture, Received Pending 04/16/17 C.difficile Toxin B Gene (PCR) - Final, Complete No C. difficile toxin B gene detected 04/16/17 Shiga Toxin Test, Received Pending 04/16/17 Stool Culture, Received Pending Diagnostic Radiology Reviewed the following studies and agree with interpretation as follows: Patient Name: AANYA PERSAUD Unit Number: [id number] Dictated: 04/16/17839 Transcribed: 04/16/17839 ARG Printed Date/Time: [~ rep prt dt]/[~ rep prt tm] [~ rep ct labl] - [~ rep ct ivnm] [facility] [place] [address] Dictated: 04/16/17 0840 Transcribed: 04/16/17 0840 ARG Printed Date/Time: [~ rep prt dt]/[~ rep prt tm] [~ rep ct labl] - [~ rep ct ivnm] Patient: ANAYA PERSAUD Address1: [address] [place] [address] Rec: [id number] Address2: Acct ID: [id number] [facility] Zip: [place] [address] Date: 1960 Sex: F Room/Bed: Ref Phy: Shruthi Mcbride D.O. SC: EDNA Att Phy: Report #: [id number] Rosy Phy: Shruthi Mcbride D.O. Test: CXR Admit Phy: Rehab Nurse: BENSON Interpreting Phy: John Narayanan M.D. Diagnosis: FEVER Ordering Phy: Avi Mayer M.D. Service Date: 04/16/17 Admit Date: 04/16/17 MNE: PWRSCRIBE CONF: DICTATED BY: John Narayanan M.D.]] CC: Shruthi Mcbride D.O. Ziff, Theodore, M.D. Endcc: [~ rep ct add3]] CHEST 2 VIEWS ROUTINE CLINICAL HISTORY: cough COMPARISON STUDY: 04/10/2017 FINDINGS: The heart is mildly enlarged. There are bilateral calcified breast implants. This obscures portions of the hemithoraces in the PA film. There is no lobar consolidation. There are no pleural effusions. There is minor left basilar atelectasis/scarring.[ There is no failure. IMPRESSION: No active disease in the chest. Electronically signed by: John Narayanan M.D. 04/16/2017 8:42 AM Dictated Date/Time: 04/16/2017 8:40 AM The status of this report is Signed. Draft = Not yet reviewed or approved by Radiologist. Signed = Reviewed and approved by Radiologist. <AttendingPhy></AttendingPhy> <FamilyPhy>Shruthi Mcbride D.O.</FamilyPhy> < PrimaryPhy>Shruthi Mcbride D.O.</PrimaryPhy> <UnitNumber>[id number]</ UnitNumber> <VisitNumber>[id number]</VisitNumber> <PatientName>ANAYA PERSAUD</ PatientName> <DateOfBirth>1960</DateOfBirth> <Location>C.EDB</Location> < ServiceDate>04/16/17</ServiceDate> <MNE>ESINDI</MNE> <OrderingPhy>Avi Mayer M.D.</OrderingPhy> <OrderingPhyMNE>f rep ord dr santo</OrderingPhyMNE> < DictatingPhyMNE>f rep dict dr santo</DictatingPhyMNE> <CCListMNE>f rep ct mne</ CCListMNE> <AdmittingPhyMNE>f pt admit dr santo</AdmittingPhyMNE> <AttendingPhyMNE >f pt attend dr santo</AttendingPhyMNE> <ConsultingPhyMNE>f pt consult dr santo</ConsultingPhyMNE> <FamilyPhyMNE>f pt fam dr santo</FamilyPhyMNE> <OtherPhyMNE>f pt other dr santo</OtherPhyMNE> < PrimaryPhyMNE>f pt prim care dr santo</PrimaryPhyMNE> <ReferringPhyMNE>f pt referring dr santo</ReferringPhyMNE> Patient Name: ANAYA PERSAUD Unit Number: [id number] Dictated: 04/16/171123 Transcribed: 04/16/171123 ARG Printed Date/Time: [~ rep prt dt]/[~ rep prt tm] [~ rep ct labl] - [~ rep ct ivnm] [facility] [place] [address] Dictated: 04/16/171123 Transcribed: 04/16/171123 ARG Printed Date/Time: [~ rep prt dt]/[~ rep prt tm] [~ rep ct labl] - [~ rep ct ivnm] Patient: ANAYA PERSAUD Address1: [address] [place] [address] Rec: [id number] Address2: Acct ID: [id number] [facility] Zip: [place] [address] Date: 1960 Sex: F Room/Bed: Ref Phy: Shruthi Mcbride D.O. SC: EDNA Att Phy: Report #: [id number] Rosy Phy: Shruthi Mcbride D.O. Test: KUB Admit Phy: Rehab Nurse: SERGIO Interpreting Phy: John Narayanan M.D. Diagnosis: FEVER Ordering Phy: Avi Mayer M.D. Service Date: 04/16/17 Admit Date: 04/16/17 MNE: PWRSCRIBE CONF: DICTATED BY: John Narayanan M.D.]] CC: Shruthi Mcbride D.O. Ziff, Theodore, M.D. Endcc: [~ rep ct add3]] KUB CLINICAL HISTORY: Abdominal pain. Possible bowel obstruction. COMPARISON STUDY: 04/10/2017 FINDINGS: There are multiple surgical clips within the abdomen. There are multiple pelvic basin calcifications, similar to the prior study and likely representing phleboliths. There is a borderline dilated left upper quadrant small bowel loop.. There are no transition zones to indicate bowel obstruction. There are calcified breast implants. IMPRESSION: Postsurgical change. Borderline dilated left upper quadrant small bowel loop. No conventional radiographic evidence of a high-grade bowel obstruction. Electronically signed by: John Narayanan M.D. 04/16/2017 11:28 AM Dictated Date/Time: 04/16/2017 11:24 AM The status of this report is Signed. Draft = Not yet reviewed or approved by Radiologist. Signed = Reviewed and approved by Radiologist. <AttendingPhy></AttendingPhy> <FamilyPhy>Shruthi Mcbride D.O.</FamilyPhy> < PrimaryPhy>Shruthi Mcbride D.O.</PrimaryPhy> <UnitNumber>[id number]</ UnitNumber> <VisitNumber>[id number]</VisitNumber> <PatientName>ANAYA PERSAUD [place]</ PatientName> <DateOfBirth>1960</DateOfBirth> <Location>C.EDB</Location> < ServiceDate>04/16/17</ServiceDate> <MNE>ESINDI</MNE> <OrderingPhy>Avi Mayer M.D.</OrderingPhy> <OrderingPhyMNE>f rep ord dr santo</OrderingPhyMNE> < DictatingPhyMNE>f rep dict dr santo</DictatingPhyMNE> <CCListMNE>f rep ct johne</ CCListMNE> <AdmittingPhyMNE>f pt admit dr santo</AdmittingPhyMNE> <AttendingPhyMNE >f pt attend dr santo</AttendingPhyMNE> <ConsultingPhyMNE>f pt consult dr santo</ConsultingPhyMNE> <FamilyPhyMNE>f pt fam dr santo</FamilyPhyMNE> <OtherPhyMNE>f pt other dr santo</OtherPhyMNE> < PrimaryPhyMNE>f pt prim care dr santo</PrimaryPhyMNE> <ReferringPhyMNE>f pt referring dr santo</ReferringPhyMNE> Impression Assessment and Plan 57 y/o female with a history of polycystic kidney disease s/p bilateral nephrectomy and left renal transplant, anemia of chronic disease, DM II, HTN, HLD, depression, RLS, and h/o CVA who presented to the ED on 04/16 with nausea, vomiting, diarrhea, fevers, and weakness. The patient was initially afebrile on arrival however she did later develop a fever of 39.5C. Patient was also hypotensive on arrival the blood pressure did improve after receiving IV fluids. Pt now tachycardic. CXR no acute disease. KUB shows dilated loop of small bowel in LUQ, probable ileus. WBC 11.5. Creatinine elevated above baseline at 4.9. UA negative. Sepsis secondary to suspected abdominal source, ileus -Admit to telemetry -Blood cultures and stool culture pending -C. Diff negative -Zosyn and vancomycin IV for now -IVF with NSS at 125 cc/hr -Zosyn 4 mg IV q6h prn and Phenergan 12.5 mg IV q6h prn nausea -NPO except meds, sips and chips -CT abdomen and pelvis to r/o abscess -Consult general surgery -Consult infectious disease. Dr. Donato aware Acute renal failure, left renal transplant--baseline creatinine around 3.5, had been 3.3 on 04/14/17 -Creatinine 4.9 on admission -IVF as above -Consult nephrology, pt follows with Dr. Roy. Spoke to Dr. Roy, recommends CT A/P as above. Low threshold to [place] [facility] Recommends calling [place] surgical team due to patient's complicated history and multiple abdominal surgeries, will leave to day team -Continue cyclosporine 75 mg PO BID, prednisone 2.5 mg PO qd and sirolimus 1 mg PO qd. Called pharmacy about sirolimus, should have some in stock -Stress dose steroids with hydrocortisone 12.5 mg IV q8h x 2 days Anemia of chronic disease--stable -Hgb 11.5 on admission, continue to monitor -Pt takes Procrit prn. Continue Ferrex DM II--stable. Last HgbA1c checked 02/19/17 was 5.8 -Decrease home Levemir to 15 units SC qpm due to NPO status -Insulin sliding scale -Check BSGs q6h while NPO HTN--now stable after IVF -Continue Norvasc 5 mg PO qd and carvedilol 6.25 mg 1 tab qam and 2 tabs qpm Depression -Continue Effexor 37.5 mg PO qd RLS -Continue Mirapex 0.125 mg PO qhs GERD -Continue pantoprazole 40 mg PO qd DVT prophylaxis -Heparin 5000 units SC q12h -HENOK Hurtado Code Status -Level I, FULL RESUSCITATION STATUS This chart was completed in part utilizing [employer] Speech Voice Recognition software. Attempts were made to minimize the grammatical errors, random word insertions, pronoun errors and incomplete sentences. Any formal questions or concerns about the content, text or information contained within the body of this dictation should be directly addressed to the provider for clarification. Level of Care Telemetry Advanced Directives Existing Living Will: No Existing Power of Wiper Blender: No Resuscitation Status FULL RESUSCITATION VTE Prophylaxis VTE Risk Assessment Done? Y/N: Yes Risk Level: Moderate Given or contraindicated: Unfractionated heparin SQ, T.E.D. 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 Discussed with RICKIE Real and agree with findings and plan as documented in the note. Any exceptions or clarifications are listed here: This patient is a 57-year-old female with a very complex medical history most notably including kidney transplant with subsequent chronic kidney disease stage 5, multiple abdominal surgeries and adhesions with small bowel obstructions. She was recently hospitalized for small bowel obstruction and left the hospital 2 days ago. She presents again with nausea vomiting and diarrhea with fecal incontinence all nonbloody, as well as a fever and sepsis. CT scan of the abdomen and pelvis shows resolving small bowel obstruction and no source of infection. Vitals reviewed Alert awake oriented 3, thin Regular rate and rhythm, no murmurs gallops rubs Lungs clear to auscultation bilaterally, breathing unlabored, no wheezing Abdomen positive bowel sounds, numerous surgical scars, nontender nondistended Extremities trace pitting edema with chronic venous stasis changes 57-year-old female with medical history as above, here with this sepsis most likely of a GI source with gastroenteritis. I discussed the case on the phone with the surgeon on-call and there is no surgical abdomen at this time. We'll keep her nothing by mouth except for sips and chips. C. difficile antigen is negative here. Advance diet slowly as tolerated -I also discussed the case on the phone with Dr. Donato from infectious disease and will treat her with broad-spectrum antibiotics given recent hospitalizations -We'll give Zosyn and vancomycin -We'll be aggressive with IV fluids for dehydration and acute kidney injury on chronic kidney disease stage V, follow PRP -We will increase her hydrocortisone stress dose steroids to 50 mg IV every 8 hours for hypotension -Would have a low threshold to transfer to [facility] if develops recurrent small bowel obstruction as she may also need a repeat transplant Documented By: Caren Mejia
[2017-04-16] MEDS ORDERED: VANCOMYCIN INJ 1,500 MG in SODIUM CHLORIDE 0.9% 500ML 500 ML IV ONE (18:00)
[2017-04-16] MEDS ORDERED: SIROLIMUS 0.5 MG TAB PO ONE (18:00)
[2017-04-16] MEDS ORDERED: PIPERACILL/TAZOBAC IV 3.375 GM in DEXTROSE 5% 100ML IV ONE (18:00)
--- NOTE | 2017-04-16 18:01 | DIAGNOSTIC IMAGING REPORT ---
CT SCAN OF THE ABDOMEN AND PELVIS WITHOUT CONTRAST CLINICAL HISTORY: Fever, dehydration, history of renal transplant COMPARISON STUDY: 04/11/2017 TECHNIQUE: CT scan of the abdomen and pelvis was performed from the lung bases to the proximal femurs. Images are reviewed in the axial, sagittal, and coronal planes. IV contrast was not administered for this examination. A dose lowering technique was utilized adhering to the principles of ALARA. CT DOSE: 282.11 mGy.cm FINDINGS: Lower chest: There are bilateral calcified breast implants. There is a persistent pericardial effusion. There are new small bilateral pleural effusions left. There is bibasal atelectasis. Liver: There are multiple hepatic cysts. 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 The common bile duct remains dilated measuring 14 mm. Gallbladder: Not visualized Spleen: Normal in size and attenuation. Pancreas: Unremarkable. Adrenal glands: Unremarkable. Kidneys: Presumed surgically absent. There is a left lower quadrant renal transplant. There is no hydronephrosis. There is a stable rim calcified perinephric fluid collection measuring 22 mm. Bowel: There are postsurgical changes of a prior hemicolectomy. There are fluid-filled left upper quadrant small bowel loops which are of decreased diameter when compared the prior study. The findings are consistent with a resolving small bowel obstruction. Peritoneum: There is no intraperitoneal free air or abdominal ascites. Vasculature: The abdominal aorta is normal in course and caliber. Adenopathy: None. Pelvic viscera: The bladder, and pelvic viscera are unremarkable. Skeletal structures: No destructive osseous lesions are seen. IMPRESSION: 1. Postsurgical changes of a hemicolectomy 2. Resolution of previously described small bowel obstruction with residual mildly dilated left upper quadrant small bowel loops 3. Innumerable hepatic cysts 4. Stable common bile duct dilatation 5. Surgically absent kidneys. 6. Left lower quadrant transplant kidney with a stable perinephric fluid collection 7. Interval development of small bilateral pleural effusions right greater than left 8. Stable pericardial effusion Electronically signed by: John Narayanan M.D. 04/16/2017 5:59 PM Dictated Date/Time: 04/16/2017 5:50 PM
[2017-04-16] MEDS: SODIUM CHLORIDE 0.9% 1000ML 1,000 ML IV SCH (18:46)
[2017-04-16] MEDS ORDERED: HYDROCORTISONE IV 12.5 MG in SYRINGE 0 ML IV SCH (19:00)
--- NOTE | 2017-04-16 20:10 | Surgery Consultation ---
Consultation Date of Consultation: Apr 16, 2017. Attending Physician: Caren Mejia MD Reason for Consultation: n/v SBO History of Present Illness pt was recently in hospital for SBO and ended up leaving AMA. was having fatigue, nausea, diarrhea and generalized malaise and was re-admitted today her main complaint to me now is diarrhea and fatigue. did have recent c.diff infection which repeat test now were negative denies abdominal pain. Past Medical/Surgical History Medical Problems: (1) Abdominal pain Status: Acute (2) Acute on chronic renal failure Status: Acute (3) Elevated lipase Status: Acute (4) Fever Status: Acute (5) History of fever Status: Acute (6) History of small bowel obstruction Status: Acute (7) Ileus Status: Acute (8) Immunocompromised Status: Acute (9) Kidney Transplant Status Status: Acute (10) Malaise and fatigue Status: Acute (11) Nausea, vomiting, and diarrhea Status: Acute (12) Prerenal renal failure Status: Acute (13) Renal failure Status: Acute (14) Renal insufficiency Status: Acute (15) Right upper quadrant abdominal pain Status: Acute (16) Right upper quadrant abdominal pain Status: Acute (17) Rigors Status: Acute (18) Sepsis Status: Acute (19) Small bowel obstruction Status: Acute (20) UTI (urinary tract infection) Status: Acute (21) Vomiting Status: Acute Social History Problems: (1) History of renal transplant Status: Acute Family History Breast cancer Diabetes mellitus Heart disease Kidney disease Kidney stones Social History Smoking Status: Former Smoker (smoked in her teens) Smokeless Tobacco Use: No Alcohol Use: none Drug Use: none Marital Status: Housing Status: lives with family Occupation Status: employed Allergies Coded Allergies: Iodinated Diagnostic Agents (Verified Allergy, Severe, Hx Kidney Transplant, 04/16/17) Statins (Verified Allergy, Severe, "PANCREATITIS", 04/16/17) Hydrochlorothiazide (Verified Allergy, Mild, 04/16/17) Sulfa Antibiotics (Verified Allergy, Mild, ., 04/16/17) Sumatriptan (Verified Allergy, Mild, 04/16/17) Triamterene (Verified Allergy, Mild, 04/16/17) Atorvastatin (Verified Allergy, Unknown, ?, 04/16/17) Doxycycline (Verified Allergy, Unknown, UNKNOWN, 04/16/17) Levofloxacin (Verified Allergy, Unknown, joint pain, 04/16/17) Adhesives (Verified Adverse Reaction, Unknown, SKIN TEAR, 04/16/17) Ciprofloxacin (Verified Adverse Reaction, Unknown, FATIGUE, 04/16/17) Morphine (Verified Adverse Reaction, Unknown, INEFFECTIVE, 04/16/17) Home Medications Scheduled Amlodipine Besylate (Amlodipine Besylate), 1 TAB PO DAILY Azelastine HCl (Azelastine HCl), 1 SPRAYS АНДРЕЙ DAILY Biotin (Biotin 5000), 5,000 MCG PO QAM Calcium W/ Vitamins D & K (Calcium + D + K), 1 TABLET PO MWF Carvedilol (Carvedilol), 1 TAB PO QAM Carvedilol (Carvedilol), 2 TAB PO QPM Cyclosporine (Sandimmune), 75 MG PO BID Estrogens, Conjugated (Premarin), 0.625 MG PO 2XWK Fidaxomicin (Dificid), 200 MG PO BID Insulin Detemir (Levemir Flextouch), 20 UNITS SC PM Krill Oil (Krill Oil [place]-3), 2 TAB PO DAILY Multivitamin (Multivitamin), 1 TAB PO QAM Ondansetron (Ondansetron HCl), 1 TAB PO BID Oxycodone HCl (Oxycodone HCl), 1 TAB PO Q6H Pantoprazole (Pantoprazole Sodium), 1 TAB PO DAILY Polysaccharide Iron Complex (Ferrex 150), 150 MG PO QPM Pramipexole (Mirapex), 0.125 MG PO HS Prednisone (Prednisone), 2.5 MG PO QAM Sirolimus (Rapamune), 1 MG PO QAM Venlafaxine Hcl (Effexor), 1 TAB PO HS Miscellaneous Medications Epoetin Kvng (Procrit), 1 DOSE INJ Current Inpatient Medications Current Inpatient Medications Medications (Trade) Dose Ordered Sig/Dominique Route Start Time Stop Time Status Last Admin Dose Admin Heparin Sodium (Porcine) (Heparin Sq 5000 Unit/0.5ml) 5,000 unit Q12 SQ 04/16/17 21:00 05/16/17 20:59 Sodium Chloride 1,000 ml @ 125 mls/hr Q8H IV 04/16/17 16:18 05/16/17 16:17 04/16/17 18:46 125 MLS/HR Acetaminophen (Tylenol Tab) 650 mg Q4H PRN PO 04/16/17 16:30 05/16/17 16:29 Al Hydrox/Mg Hydrox/Simethicone (Maalox Max Susp) 15 ml Q4H PRN PO 04/16/17 16:30 05/16/17 16:29 Magnesium Hydroxide (Milk Of Magnesia Susp) 30 ml Q12H PRN PO 04/16/17 16:30 05/16/17 16:29 Ondansetron HCl (Zofran Inj) 4 mg Q6H PRN IV 04/16/17 16:30 05/16/17 16:29 Polyethylene (Miralax Powder Packet) 17 gm DAILY PRN PO 04/16/17 16:30 05/16/17 16:29 Promethazine HCl 12.5 mg/Sodium Chloride 50.5 ml @ 204 mls/hr Q6H PRN IV 04/16/17 16:30 05/16/17 16:29 Amlodipine Besylate (Norvasc Tab) 5 mg DAILY PO 04/17/17 09:00 05/17/17 08:59 Carvedilol (Coreg Tab) 6.25 mg QAM PO 04/17/17 09:00 05/17/17 08:59 Carvedilol (Coreg Tab) 12.5 mg QPM PO 04/16/17 21:00 05/16/17 20:59 Cyclosporine (Sandimmune Cap) 75 mg BID PO 04/16/17 21:00 05/16/17 20:59 Insulin Detemir (Levemir Flexpen/ FlexTouch) 15 units PM SC 04/16/17 21:00 05/16/17 20:59 Pantoprazole Sodium (Protonix Tab) 40 mg DAILY PO 04/17/17 09:00 05/17/17 08:59 Polysaccharide Iron Complex (Niferex-150 w/ Vit C Cap) 150 mg QPM PO 04/16/17 21:00 05/16/17 20:59 Pramipexole Dihydrochloride (miraPEX TAB) 0.125 mg HS PO 04/16/17 21:00 05/16/17 20:59 Prednisone (PredniSONE TAB) 2.5 mg QAM PO 04/17/17 09:00 05/17/17 08:59 Venlafaxine HCl (effeXOR TAB) 37.5 mg HS PO 04/16/17 21:00 05/16/17 20:59 Sirolimus (Sirolimus) 1 mg QAM PO 04/17/17 09:00 05/17/17 08:59 Insulin Aspart (novoLOG ASPART) SLIDING SCALE If C... ACHS SC 04/16/17 21:00 05/16/17 20:59 Glucose (Glucose 40% Gel) 15-30 GRAMS 15 GRAMS... UD PRN PO 04/16/17 17:00 05/16/17 16:59 Glucose (Glucose Chew Tab) 4-8 Tablets 4 Tabl... UD PRN PO 04/16/17 17:00 05/16/17 16:59 Dextrose (Dextrose 50% 50ML Syringe) 25-50ML OF 50% DW IV FOR... UD PRN IV 04/16/17 17:00 05/16/17 16:59 Glucagon (Glucagon Inj) 1 mg UD PRN SQ 04/16/17 17:00 05/16/17 16:59 Hydrocortisone Sodium Succinate 12.5 mg/Syringe 0.25 ml @ 4 mls/min Q8@0200,1000,1800 IV 04/16/17 19:00 05/16/17 18:59 04/16/17 19:31 4 MLS/MIN Vancomycin HCl (Consult) 1 ea UD PRN N/A 04/16/17 17:30 05/16/17 17:29 Vancomycin HCl 1500 mg/Sodium Chloride 530 ml @ 200 mls/hr NOW ONCE IV 04/16/17 18:00 04/16/17 20:38 04/16/17 19:27 200 MLS/HR Piperacillin Sod/ Tazobactam Sod (Consult) 1 ea UD PRN N/A 04/16/17 17:30 05/16/17 17:29 Piperacillin Sod/ Tazobactam Sod 3.375 gm/Dextrose 115 ml @ 28.75 mls/ hr Q12H IV 04/17/17 06:00 04/26/17 17:59 Review of Systems Constitutional: + fever, + fatigue Abdomen: + nausea, + diarrhea Physical Exam Date Time Temp Pulse Resp B/P (MAP) Pulse Ox O2 Delivery O2 Flow Rate FiO2 04/16/17 19:44 37.1 74 24 76/46 (56) 98 Room Air 88/56 (67) 04/16/17 18:15 38.9 98 20 93/63 (73) 94 Room Air 04/16/17 16:08 39.5 109 20 148/74 93 Room Air 04/16/17 15:45 94 Room Air 04/16/17 13:55 36.8 04/16/17 12:30 37.0 104/52 04/16/17 10:39 36.8 77 20 99/53 94 Room Air 04/16/17 08:56 99 121/57 98 Room Air 04/16/17 07:27 37.3 69 18 105/55 96 Room Air General Appearance: + mild distress Head: normocephalic, atraumatic Eyes: PERRL, EOMI ENT: hearing grossly normal Neck: supple, no JVD Respiratory/Chest: no respiratory distress, no accessory muscle use Abdomen/GI: non tender, soft, + pertinent finding (minimal distension. completely nontender. ) Neurologic/Psych: alert, oriented x 3 Skin: normal color, warm/dry Laboratory Results Last 24 Hours Test 04/16/17 08:00 04/16/17 10:33 04/16/17 14:36 04/16/17 18:12 White Blood Count 11.50 K/uL Red Blood Count 4.14 M/uL Hemoglobin 11.5 g/dL Hematocrit 36.0 % Mean Corpuscular Volume 87.0 fL Mean Corpuscular Hemoglobin 27.8 pg Mean Corpuscular Hemoglobin Concent 31.9 g/dl Platelet Count 199 K/uL Mean Platelet Volume 10.0 fL Neutrophils (%) (Auto) 74.1 % Lymphocytes (%) (Auto) 6.6 % Monocytes (%) (Auto) 18.0 % Eosinophils (%) (Auto) 0.3 % Basophils (%) (Auto) 0.1 % Neutrophils # (Auto) 8.52 K/uL Lymphocytes # (Auto) 0.76 K/uL Monocytes # (Auto) 2.07 K/uL Eosinophils # (Auto) 0.04 K/uL Basophils # (Auto) 0.01 K/uL RDW Standard Deviation 57.7 fL RDW Coefficient of Variation 18.1 % Immature Granulocyte % (Auto) 0.9 % Immature Granulocyte # (Auto) 0.10 K/uL Sodium Level 134 mmol/L Potassium Level 4.0 mmol/L Chloride Level 100 mmol/L Carbon Dioxide Level 23 mmol/L Anion Gap 11.0 mmol/L Blood Urea Nitrogen 66 mg/dl Creatinine 4.90 mg/dl Est Creatinine Clear Calc Drug Dose 12.6 ml/min Estimated GFR () 10.5 Estimated GFR (Non- 9.1 BUN/Creatinine Ratio 13.5 Random Glucose 128 mg/dl Calcium Level 8.9 mg/dl Total Bilirubin 1.1 mg/dl Aspartate Amino Transf (AST/SGOT) 22 U/L Alanine Aminotransferase (ALT/SGPT) 18 U/L Alkaline Phosphatase 79 U/L Total Protein 7.2 gm/dl Albumin 3.2 gm/dl Globulin 4.0 gm/dl Albumin/Globulin Ratio 0.8 Lipase 691 U/L Chemistry Specimen Hemolysis Urine Color DK YELLOW Urine Appearance CLOUDY Urine pH 5.0 Urine Specific [place] 1.025 Urine Protein 2+ Urine Glucose (UA) NEG Urine Ketones TRACE Urine Occult Blood NEG Urine Nitrite NEG Urine Bilirubin NEG Urine Urobilinogen NEG Urine Leukocyte Esterase NEG Urine WBC (Auto) 1-5 /hpf Urine RBC (Auto) 0-4 /hpf Urine Hyaline Casts (Auto) 1-5 /lpf Urine Epithelial Cells (Auto) >30 /lpf Urine Bacteria (Auto) NEG Urine Yeast (Auto) Lactic Acid Level 1.1 mmol/L Bedside Glucose 115 mg/dl Assessment & Plan 1. n/v/diarrhea with dehydration in face of CRF repeat CT scan shows resolved SBO though still some dilated LUQ loops clinically no SBO ( frequent BM's. no pain. minimal distension) ? gastroenteritis supportive care. cultures pending. c.diff negative. IVF's will follow along but no surgical interventions planned at this time.
[2017-04-16] MEDS: CARVEDILOL 12.5 MG TAB PO SCH (20:35)
[2017-04-16] MEDS: PRAMIPEXOLE DIHYDROCHLORIDE 0.25MG TAB PO SCH (20:50)
[2017-04-16] MEDS: IRON COMPLEX POLYSACCHARIDE W/VIT C 150 MG CAP PO SCH (20:51)
[2017-04-16] MEDS: VENLAFAXINE HCL 37.5 MG TAB PO SCH (20:51)
[2017-04-16] MEDS: CycloSPORINE (SANDIMMUNE) 25 MG CAP PO SCH (20:51)
--- NOTE | 2017-04-16 20:53 | Pharmacy Progress Note ---
Pharmacy Abx Initial Consult Date of Service Apr 16, 2017. Pharmacy Dosing Scope Date of Consult: 04/16/17 Consultation requested by: Dr. [facility] is consulted to initiate Vancomycin and Zosyn IV dosing therapies for a GI infection in a patient in acute kidney failure, order appropriate labs and adjust drug dose/frequency. Subjective The patient is a 57 year old female admitted on Apr 16, 2017 at 16:45. Objective Height (Feet): 5 Height (Inches): 8.00 Weight (Kilograms): 65.100 Vital Signs (Past 12Hrs) Vital Signs Past 12 Hours Date Time Temp Pulse Resp B/P (MAP) Pulse Ox O2 Delivery O2 Flow Rate FiO2 04/16/17 20:33 72 89/55 (66) 04/16/17 19:44 37.1 74 24 76/46 (56) 98 Room Air 88/56 (67) 04/16/17 18:15 38.9 98 20 93/63 (73) 94 Room Air 04/16/17 16:08 39.5 109 20 148/74 93 Room Air 04/16/17 15:45 94 Room Air 04/16/17 13:55 36.8 04/16/17 12:30 37.0 104/52 04/16/17 10:39 36.8 77 20 99/53 94 Room Air 04/16/17 08:56 99 121/57 98 Room Air Lab Results (24Hrs) Laboratory Tests (24 Hours) Test 04/16/17 08:00 04/16/17 14:36 White Blood Count 11.50 K/uL (4.8-10.8) H Red Blood Count 4.14 M/uL (4.2-5.4) L Hemoglobin 11.5 g/dL (12.0-16.0) L Hematocrit 36.0 % (37-47) L Mean Corpuscular Volume 87.0 fL (80-100) Mean Corpuscular Hemoglobin 27.8 pg (25-34) Mean Corpuscular Hemoglobin Concent 31.9 g/dl (32-36) L Platelet Count 199 K/uL (130-400) Mean Platelet Volume 10.0 fL (7.4-10.4) Neutrophils (%) (Auto) 74.1 % Lymphocytes (%) (Auto) 6.6 % Monocytes (%) (Auto) 18.0 % Eosinophils (%) (Auto) 0.3 % Basophils (%) (Auto) 0.1 % Neutrophils # (Auto) 8.52 K/uL (1.4-6.5) H Lymphocytes # (Auto) 0.76 K/uL (1.2-3.4) L Monocytes # (Auto) 2.07 K/uL (0.11-0.59) H Eosinophils # (Auto) 0.04 K/uL (0-0.5) Basophils # (Auto) 0.01 K/uL (0-0.2) Lactic Acid Level 1.1 mmol/L (0.4-2.0) Micro Results Date/Time Source Procedure Growth Status 04/16/17 14:36 Blood Blood Culture Pending Received 04/16/17 14:29 Blood Blood Culture Pending Received 04/16/17 10:33 Stool C.difficile Toxin B Gene (PCR) - Final No C. difficile toxin B gene detected Complete 04/16/17 10:33 Stool Shiga Toxin Test Pending Received 04/16/17 10:33 Stool Stool Culture Pending Received Risk Factors for Resistance * Hospitalization for 48 hours or more within the past 90 days (04/10/17 - ) * Immunocompromised (chronic steroid therapy, immunomodulators for kidney transplant) Assessment & Plan Assessment 57 year old female * CKD Stage IV (baseline serum creat.= 3.5mg/dL) * left kidney transplant * currently in acute kidney failure (serum creat.= 4.9mg/dL 04/16/17) Plan Pharmacy has been consulted for treatment of GI infection Vancomycin IV * Loading dose: 1500 mg (23 mg/kg) * Goal trough level for GI infection : 15 to 20 mcg/mL * Random level ordered for 04/17/17 with AM labs * A less than traditional dose and/or extended dosing interval have been selected due to likelihood of drug accumulation in patient with h/o CKD. * Pharmacy to re-dose Vancomycin once serum concentrations are less than therapeutic or if the patient's renal function improves or stabilizes. Piperacillin/tazobactam * 3.375 g bolus administered over 30 minutes, then 3.375 g IV extended infusion every 12 hours for CrCl 20 mL/min or less and dialysis. Pharmacy will continue to follow and will adjust dose/frequency as necessary. Thank you.
[2017-04-16] MEDS: HEPARIN SOD 5000 UNIT/0.5 ML CARP SQ SCH (20:56)
[2017-04-16] MEDS: INSULIN ASPART 100 UNITS/ML 3 ML PEN SC SCH (21:00)
[2017-04-16] MEDS: INSULIN DETEMIR FLEXPEN/FLEX TOUCH 100 UNITS/ML 3ML SC SCH (21:00)
[2017-04-16] MEDS ORDERED: VANCOMYCIN INJ 1,000 MG in SODIUM CHLORIDE 0.9% 250ML 250 ML IV SCH (21:00)
[2017-04-17] MEDS: HYDROCORTISONE IV 50 MG in SYRINGE 0 ML IV SCH ×2 (01:49→08:49)
[2017-04-17] MEDS: SODIUM CHLORIDE 0.9% 1000ML 1,000 ML IV SCH ×4 (01:49→23:54)
[2017-04-17 03:34] VITALS: BP 114/61; PULSE 62; TEMP 36.6; O2SAT 96
[2017-04-17] MEDS: PIPERACILL/TAZOBAC IV 3.375 GM in DEXTROSE 5% 100ML IV SCH ×2 (06:05→18:41)
[2017-04-17 06:20] LABS: BASO % 0.1 %; BASO ABS # 0.01 K/uL (0-0.2); COMPLETE YES; EOS % 0.1 %; HEMATOCRIT 31.5 % (37-47); IG% 0.9 %; LYMPH % 5.9 %; LYMPH ABS # 0.63 K/uL (1.2-3.4); MEAN CELL VOLUME 87.7 fL (80-100); MEAN CORPUSCULAR HEMOGLOBIN 27.6 pg (25-34); MEAN CORPUSCULAR HGB CONC 31.4 g/dl (32-36); MEAN PLATELET VOLUME 10.1 fL (7.4-10.4); MONO % 5.7 %; NEUT % 87.3 %; PLATELET COUNT 161 K/uL (130-400); RED BLOOD COUNT 3.59 M/uL (4.2-5.4); WHITE BLOOD COUNT 10.67 K/uL (4.8-10.8)
[2017-04-17] MEDS: INSULIN ASPART 100 UNITS/ML 3 ML PEN SC SCH ×4 (07:00→21:17)
[2017-04-17 07:20] LABS: BUN/CREATININE RATIO 12.3 (10-20); CALCIUM 8.6 mg/dl (8.5-10.1); CREATININE 4.9 mg/dl (0.60-1.20); POTASSIUM 3.8 mmol/L (3.5-5.1)
[2017-04-17 08:10] VITALS: BP 158/78; PULSE 60; TEMP 36.4; O2SAT 97
[2017-04-17] MEDS: AMLODIPINE BESYLATE 5 MG TAB PO SCH (08:48)
[2017-04-17] MEDS: CycloSPORINE (SANDIMMUNE) 25 MG CAP PO SCH ×2 (08:48→21:12)
[2017-04-17] MEDS: CARVEDILOL 6.25 MG TAB PO SCH (08:48)
[2017-04-17] MEDS: SIROLIMUS 0.5 MG TAB PO SCH (08:48)
[2017-04-17] MEDS: PANTOprazole SOD 40 MG TAB PO SCH (08:48)
[2017-04-17] MEDS: HEPARIN SOD 5000 UNIT/0.5 ML CARP SQ SCH ×2 (08:52→21:00)
--- NOTE | 2017-04-17 09:31 | Surgery Progress Note ---
Surgery Progress Note Date of Service Apr 17, 2017. Subjective Post OP Day: HD # 1 + feeling well, + bowel movement, No complaints, No nausea, No vomiting "Feeling much better, feeling like my normal self" "Hungry, would like more than ice chips" no more nausea or vomiting diarrhea has slowed down. no rectal bleeding Objective Vital Signs: Date Time Temp Pulse Resp B/P (MAP) Pulse Ox O2 Delivery O2 Flow Rate FiO2 04/17/17 08:10 36.4 60 16 158/78 (104) 97 Room Air 04/17/17 04:00 Room Air 04/17/17 03:34 36.6 62 18 114/61 (78) 96 Room Air 04/17/17 00:00 Room Air 04/16/17 23:12 36.7 69 18 97/58 (71) 97 Room Air 04/16/17 22:40 65 100/61 (74) 04/16/17 21:50 67 95/57 (70) 92 04/16/17 20:33 72 89/55 (66) 04/16/17 20:00 98 Room Air 04/16/17 19:44 37.1 74 24 76/46 (56) 98 Room Air 88/56 (67) 04/16/17 18:15 38.9 98 20 93/63 (73) 94 Room Air 04/16/17 16:08 39.5 109 20 148/74 93 Room Air 04/16/17 15:45 94 Room Air 04/16/17 13:55 36.8 04/16/17 12:30 37.0 104/52 04/16/17 10:39 36.8 77 20 99/53 94 Room Air General Appearance: WD/WN, no apparent distress Head: normocephalic, atraumatic Neck: trachea midline Respiratory/Chest: no respiratory distress, no accessory muscle use Abdomen: soft, + distended (mildly distended but improved per patient) Extremities: normal inspection Laboratory Results: Results Past 24 Hours Test 04/16/17 10:33 04/16/17 14:36 04/16/17 18:12 04/16/17 20:59 Range/Units Urine Color DK YELLOW Urine Appearance CLOUDY CLEAR Urine pH 5.0 4.5-7.5 Urine Specific [place] 1.025 1.000-1.030 Urine Protein 2+ NEG Urine Glucose (UA) NEG NEG Urine Ketones TRACE NEG Urine Occult Blood NEG NEG Urine Nitrite NEG NEG Urine Bilirubin NEG NEG Urine Urobilinogen NEG NEG Urine Leukocyte Esterase NEG NEG Urine WBC (Auto) 1-5 0-5 /hpf Urine RBC (Auto) 0-4 0-4 /hpf Urine Hyaline Casts (Auto) 1-5 0-5 /lpf Urine Epithelial Cells (Auto) >30 0-5 /lpf Urine Bacteria (Auto) NEG NEG Urine Yeast (Auto) NONE PRSENT Lactic Acid Level 1.1 0.4-2.0 mmol/L Bedside Glucose 115 178 70-90 mg/dl Test 04/17/17 00:01 04/17/17 06:00 04/17/17 06:03 Range/Units Bedside Glucose 133 130 70-90 mg/dl White Blood Count 10.67 4.8-10.8 K/uL Red Blood Count 3.59 4.2-5.4 M/uL Hemoglobin 9.9 12.0-16.0 g/dL Hematocrit 31.5 37-47 % Mean Corpuscular Volume 87.7 80-100 fL Mean Corpuscular Hemoglobin 27.6 25-34 pg Mean Corpuscular Hemoglobin Concent 31.4 32-36 g/dl Platelet Count 161 130-400 K/uL Mean Platelet Volume 10.1 7.4-10.4 fL Neutrophils (%) (Auto) 87.3 % Lymphocytes (%) (Auto) 5.9 % Monocytes (%) (Auto) 5.7 % Eosinophils (%) (Auto) 0.1 % Basophils (%) (Auto) 0.1 % Neutrophils # (Auto) 9.31 1.4-6.5 K/uL Lymphocytes # (Auto) 0.63 1.2-3.4 K/uL Monocytes # (Auto) 0.61 0.11-0.59 K/uL Eosinophils # (Auto) 0.01 0-0.5 K/uL Basophils # (Auto) 0.01 0-0.2 K/uL RDW Standard Deviation 57.9 36.4-46.3 fL RDW Coefficient of Variation 18.1 11.5-14.5 % Immature Granulocyte % (Auto) 0.9 % Immature Granulocyte # (Auto) 0.10 0.00-0.02 K/uL Sodium Level 138 136-145 mmol/L Potassium Level 3.8 3.5-5.1 mmol/L Chloride Level 106 98-107 mmol/L Carbon Dioxide Level 19 21-32 mmol/L Anion Gap 13.0 3-11 mmol/L Blood Urea Nitrogen 61 7-18 mg/dl Creatinine 4.90 0.60-1.20 mg/dl Est Creatinine Clear Calc Drug Dose 12.6 ml/min Estimated GFR () 10.5 Estimated GFR (Non- 9.1 BUN/Creatinine Ratio 12.3 10-20 Random Glucose 129 70-99 mg/dl Calcium Level 8.6 8.5-10.1 mg/dl Random Vancomycin Level 26.7 mcg/ml Microbiology Results 04/16/17 Blood Culture, Received Pending 04/16/17 Blood Culture, Received Pending 04/16/17 C.difficile Toxin B Gene (PCR) - Final, Complete No C. difficile toxin B gene detected 04/16/17 Shiga Toxin Test, Received Pending 04/16/17 Stool Culture, Received Pending Assessment & Plan Gastroenteritis? Nausea and vomiting resolved Leukocytosis resolved CT scan showing resolved SBO Plan: Advance diet to clears and then as tolerated Continue IV antibiotics, once tolerates clear liquids may switch to oral antibiotics Continue current medical management No surgical indication at this time, our services signing off, please call with any questions. Dr. Umana has seen and examined patient, agrees with above. clear liquids
--- NOTE | 2017-04-17 10:37 | Pharmacy Progress Note ---
Pharmacy Abx Dose Progress Nt Date of Service Apr 17, 2017. Pharmacy Dosing Scope The patient is currently receiving the following antimicrobial agents per Pharmacy consult: Vancomycin Zosyn Objective Height (Feet): 5 Height (Inches): 8.00 Weight (Kilograms): 65.100 Vital Signs (Past 12Hrs) Vital Signs Past 12 Hours Date Time Temp Pulse Resp B/P (MAP) Pulse Ox O2 Delivery O2 Flow Rate FiO2 04/17/17 08:10 36.4 60 16 158/78 (104) 97 Room Air 04/17/17 04:00 Room Air 04/17/17 03:34 36.6 62 18 114/61 (78) 96 Room Air 04/17/17 00:00 Room Air 04/16/17 23:12 36.7 69 18 97/58 (71) 97 Room Air 04/16/17 22:40 65 100/61 (74) Lab Results (24Hrs) Laboratory Tests (24 Hours) Item Value Date Time Random Vancomycin Level 26.7 mcg/ml 04/17/17 0603 Test 04/16/17 14:36 04/17/17 06:03 Lactic Acid Level 1.1 mmol/L (0.4-2.0) White Blood Count 10.67 K/uL (4.8-10.8) Red Blood Count 3.59 M/uL (4.2-5.4) L Hemoglobin 9.9 g/dL (12.0-16.0) L Hematocrit 31.5 % (37-47) L Mean Corpuscular Volume 87.7 fL (80-100) Mean Corpuscular Hemoglobin 27.6 pg (25-34) Mean Corpuscular Hemoglobin Concent 31.4 g/dl (32-36) L Platelet Count 161 K/uL (130-400) Mean Platelet Volume 10.1 fL (7.4-10.4) Neutrophils (%) (Auto) 87.3 % Lymphocytes (%) (Auto) 5.9 % Monocytes (%) (Auto) 5.7 % Eosinophils (%) (Auto) 0.1 % Basophils (%) (Auto) 0.1 % Neutrophils # (Auto) 9.31 K/uL (1.4-6.5) H Lymphocytes # (Auto) 0.63 K/uL (1.2-3.4) L Monocytes # (Auto) 0.61 K/uL (0.11-0.59) H Eosinophils # (Auto) 0.01 K/uL (0-0.5) Basophils # (Auto) 0.01 K/uL (0-0.2) Micro Results Date/Time Source Procedure Growth Status 04/16/17 14:36 Blood Blood Culture Pending Received 04/16/17 14:29 Blood Blood Culture Pending Received 04/16/17 10:33 Stool C.difficile Toxin B Gene (PCR) - Final No C. difficile toxin B gene detected Complete 04/16/17 10:33 Stool Shiga Toxin Test Pending Received 04/16/17 10:33 Stool Stool Culture Pending Received Risk Factors for Resistance * Hospitalization for 48 hours or more within the past 90 days (04/10/17 - ) * Immunocompromised (chronic steroid therapy, immunomodulators for kidney transplant) Assessment & Plan Assessment * 57 yo F w/ hx of CKD, polycystic kidney disease/renal transplant * recent admission here 04/10/17 - 04/14/17 for SBO * admitted yesterday (04/16/17) w/ sepsis, most likely from a GI source Plan Vancomycin IV * pt received Vancomycin 1500mg IV x 1 dose (23mg/kg) yesterday * Goal Trough: 15-20mcg/mL * Random level this AM: 26.7mcg/mL --> Therapeutic * No improvement in renal fxn, est half-life>24hr * Random level ordered with AM Labs tomorrow (04/18/17) * Less than traditional dose and/or extended dosing interval selected due to likelihood of drug accumulation in CKD * Pharmacy will re-dose based on random levels/renal fx Piperacillin/tazobactam * Continue 3.375gm IV extended infusion q12h for CrCl 20 mL/min or less
--- NOTE | 2017-04-17 10:51 | Medical Consult ---
Consultation Date of Consultation: Apr 17, 2017. Attending Physician: Tony Mazariegos D.O. Reason for Consultation: Suspected abdominal infection, Zosyn ordered History of Present Illness 57-year-old female with history of polycystic kidney disease status post renal transplant on immunosuppressive therapy, who was recently hospitalized for several days earlier this month with small bowel obstruction. She left the hospital, but now is readmitted with 2-3 day history of fever to 101 degrees, diarrhea, mild abdominal pain, and slight cough. She was found to be hypotensive and tachycardic, and admitted to the hospital for further management. Today she states that she is feeling significantly better, still with diarrhea, but no further fever or abdominal pain. Thus far blood cultures have been negative, stool for C diff PCR negative. CT scan of the abdomen shows no evidence of bowel obstruction. Chest x-ray shows no acute infiltration. Patient states that she did eat undercooked hamburger prior to onset of her symptoms. No other significant travel or exposure history. Past Medical/Surgical History Medical Problems: (1) Abdominal pain Status: Acute (2) Acute on chronic renal failure Status: Acute (3) Elevated lipase Status: Acute (4) Fever Status: Acute (5) History of fever Status: Acute (6) History of small bowel obstruction Status: Acute (7) Ileus Status: Acute (8) Immunocompromised Status: Acute (9) Kidney Transplant Status Status: Acute (10) Malaise and fatigue Status: Acute (11) Nausea, vomiting, and diarrhea Status: Acute (12) Prerenal renal failure Status: Acute (13) Renal failure Status: Acute (14) Renal insufficiency Status: Acute (15) Right upper quadrant abdominal pain Status: Acute (16) Right upper quadrant abdominal pain Status: Acute (17) Rigors Status: Acute (18) Sepsis Status: Acute (19) Small bowel obstruction Status: Acute (20) UTI (urinary tract infection) Status: Acute (21) Vomiting Status: Acute Social History Problems: (1) History of renal transplant Status: Acute Medical Problems: (1) Abdominal pain (2) Abdominal pain (3) Acute renal failure (4) Acute renal insufficiency (5) Asthma, Unspecified (6) Chronic Kidney Disease, Stage Iv (Severe) (7) Clostridium difficile diarrhea (8) Diab Raeann Wo Compl, Type Ii Or Unspec Type, Uncontrolled (9) HTN (hypertension) (10) Hyperlipidemia Nec/Nos (11) Immunosuppressed status (12) Pancreatitis (13) Polycystic Kidney, Unspecified Type (14) SBO (small bowel obstruction) (15) SIRS (systemic inflammatory response syndrome) Surgical Problems: (1) Kidney transplant recipient (2) Kidney Transplant Status Family History Breast cancer Diabetes mellitus Heart disease Kidney disease Kidney stones Social History Smoking Status: Former Smoker (smoked in her teens) Smokeless Tobacco Use: No Alcohol Use: none Drug Use: none Marital Status: Housing Status: lives with family Occupation Status: employed Allergies Coded Allergies: Iodinated Diagnostic Agents (Verified Allergy, Severe, Hx Kidney Transplant, 04/16/17) Statins (Verified Allergy, Severe, "PANCREATITIS", 04/16/17) Hydrochlorothiazide (Verified Allergy, Mild, 04/16/17) Sulfa Antibiotics (Verified Allergy, Mild, ., 04/16/17) Sumatriptan (Verified Allergy, Mild, 04/16/17) Triamterene (Verified Allergy, Mild, 04/16/17) Atorvastatin (Verified Allergy, Unknown, ?, 04/16/17) Doxycycline (Verified Allergy, Unknown, UNKNOWN, 04/16/17) Levofloxacin (Verified Allergy, Unknown, joint pain, 04/16/17) Adhesives (Verified Adverse Reaction, Unknown, SKIN TEAR, 04/16/17) Ciprofloxacin (Verified Adverse Reaction, Unknown, FATIGUE, 04/16/17) Morphine (Verified Adverse Reaction, Unknown, INEFFECTIVE, 04/16/17) Current Inpatient Medications Current Inpatient Medications Medications (Trade) Dose Ordered Sig/Dominique Route Start Time Stop Time Status Last Admin Dose Admin Heparin Sodium (Porcine) (Heparin Sq 5000 Unit/0.5ml) 5,000 unit Q12 SQ 04/16/17 21:00 05/16/17 20:59 04/17/17 08:52 5,000 UNIT Sodium Chloride 1,000 ml @ 125 mls/hr Q8H IV 04/16/17 16:18 05/16/17 16:17 04/17/17 08:47 125 MLS/HR Acetaminophen (Tylenol Tab) 650 mg Q4H PRN PO 04/16/17 16:30 05/16/17 16:29 Al Hydrox/Mg Hydrox/Simethicone (Maalox Max Susp) 15 ml Q4H PRN PO 04/16/17 16:30 05/16/17 16:29 Magnesium Hydroxide (Milk Of Magnesia Susp) 30 ml Q12H PRN PO 04/16/17 16:30 05/16/17 16:29 Ondansetron HCl (Zofran Inj) 4 mg Q6H PRN IV 04/16/17 16:30 05/16/17 16:29 Polyethylene (Miralax Powder Packet) 17 gm DAILY PRN PO 04/16/17 16:30 05/16/17 16:29 Promethazine HCl 12.5 mg/Sodium Chloride 50.5 ml @ 204 mls/hr Q6H PRN IV 04/16/17 16:30 05/16/17 16:29 Amlodipine Besylate (Norvasc Tab) 5 mg DAILY PO 04/17/17 09:00 05/17/17 08:59 04/17/17 08:48 5 MG Carvedilol (Coreg Tab) 6.25 mg QAM PO 04/17/17 09:00 05/17/17 08:59 04/17/17 08:48 6.25 MG Carvedilol (Coreg Tab) 12.5 mg QPM PO 04/16/17 21:00 05/16/17 20:59 Cyclosporine (Sandimmune Cap) 75 mg BID PO 04/16/17 21:00 05/16/17 20:59 04/17/17 08:48 75 MG Insulin Detemir (Levemir Flexpen/ FlexTouch) 15 units PM SC 04/16/17 21:00 05/16/17 20:59 Pantoprazole Sodium (Protonix Tab) 40 mg DAILY PO 04/17/17 09:00 05/17/17 08:59 04/17/17 08:48 40 MG Polysaccharide Iron Complex (Niferex-150 w/ Vit C Cap) 150 mg QPM PO 04/16/17 21:00 05/16/17 20:59 04/16/17 20:51 150 MG Pramipexole Dihydrochloride (miraPEX TAB) 0.125 mg HS PO 04/16/17 21:00 05/16/17 20:59 04/16/17 20:50 0.125 MG Prednisone (PredniSONE TAB) 2.5 mg QAM PO 04/17/17 09:00 05/17/17 08:59 04/17/17 08:48 2.5 MG Venlafaxine HCl (effeXOR TAB) 37.5 mg HS PO 04/16/17 21:00 05/16/17 20:59 04/16/17 20:51 37.5 MG Sirolimus (Sirolimus) 1 mg QAM PO 04/17/17 09:00 05/17/17 08:59 04/17/17 08:48 1 MG Insulin Aspart (novoLOG ASPART) SLIDING SCALE If C... ACHS SC 04/16/17 21:00 05/16/17 20:59 Glucose (Glucose 40% Gel) 15-30 GRAMS 15 GRAMS... UD PRN PO 04/16/17 17:00 05/16/17 16:59 Glucose (Glucose Chew Tab) 4-8 Tablets 4 Tabl... UD PRN PO 04/16/17 17:00 05/16/17 16:59 Dextrose (Dextrose 50% 50ML Syringe) 25-50ML OF 50% DW IV FOR... UD PRN IV 04/16/17 17:00 05/16/17 16:59 Glucagon (Glucagon Inj) 1 mg UD PRN SQ 04/16/17 17:00 05/16/17 16:59 Vancomycin HCl (Consult) 1 ea UD PRN N/A 04/16/17 17:30 05/16/17 17:29 Piperacillin Sod/ Tazobactam Sod (Consult) 1 ea UD PRN N/A 04/16/17 17:30 05/16/17 17:29 Piperacillin Sod/ Tazobactam Sod 3.375 gm/Dextrose 115 ml @ 28.75 mls/ hr Q12H IV 04/17/17 06:00 04/26/17 17:59 04/17/17 06:05 28.75 MLS/HR Hydrocortisone Sodium Succinate 50 mg/Syringe 1 ml @ 4 mls/min Q8H IV 04/17/17 01:00 05/17/17 00:59 04/17/17 08:49 4 MLS/MIN Review of Systems All systems were reviewed and are negative except as per HPI Physical Exam Date Time Temp Pulse Resp B/P (MAP) Pulse Ox O2 Delivery O2 Flow Rate FiO2 04/17/17 08:10 36.4 60 16 158/78 (104) 97 Room Air 04/17/17 04:00 Room Air 04/17/17 03:34 36.6 62 18 114/61 (78) 96 Room Air 04/17/17 00:00 Room Air 04/16/17 23:12 36.7 69 18 97/58 (71) 97 Room Air 04/16/17 22:40 65 100/61 (74) 04/16/17 21:50 67 95/57 (70) 92 04/16/17 20:33 72 89/55 (66) 04/16/17 20:00 98 Room Air 04/16/17 19:44 37.1 74 24 76/46 (56) 98 Room Air 88/56 (67) 04/16/17 18:15 38.9 98 20 93/63 (73) 94 Room Air 04/16/17 16:08 39.5 109 20 148/74 93 Room Air 04/16/17 15:45 94 Room Air 04/16/17 13:55 36.8 04/16/17 12:30 37.0 104/52 General Appearance: WD/WN, no apparent distress Head: normocephalic, atraumatic Eyes: normal inspection, EOMI, sclerae normal ENT: normal ENT inspection, hearing grossly normal, pharynx normal Neck: supple, no adenopathy, thyroid normal, trachea midline Respiratory/Chest: chest non-tender, lungs clear, normal breath sounds, no respiratory distress Cardiovascular: regular rate, rhythm, no gallop, no murmur Abdomen/GI: normal bowel sounds, non tender, soft, no organomegaly Back: normal inspection, no CVA tenderness Extremities/Musculoskelatal: no calf tenderness, non-tender Neurologic/Psych: alert, normal mood/affect, oriented x 3 Skin: normal color, warm/dry, no rash Lymphatic: no adenopathy Laboratory Results Date/Time Source Procedure Growth Status 04/16/17 14:36 Blood Blood Culture Pending Received 04/16/17 14:29 Blood Blood Culture Pending Received Last 24 Hours Test 04/16/17 14:36 04/16/17 18:12 04/16/17 20:59 04/17/17 00:01 Lactic Acid Level 1.1 mmol/L Bedside Glucose 115 mg/dl 178 mg/dl 133 mg/dl Test 04/17/17 06:00 04/17/17 06:03 Bedside Glucose 130 mg/dl White Blood Count 10.67 K/uL Red Blood Count 3.59 M/uL Hemoglobin 9.9 g/dL Hematocrit 31.5 % Mean Corpuscular Volume 87.7 fL Mean Corpuscular Hemoglobin 27.6 pg Mean Corpuscular Hemoglobin Concent 31.4 g/dl Platelet Count 161 K/uL Mean Platelet Volume 10.1 fL Neutrophils (%) (Auto) 87.3 % Lymphocytes (%) (Auto) 5.9 % Monocytes (%) (Auto) 5.7 % Eosinophils (%) (Auto) 0.1 % Basophils (%) (Auto) 0.1 % Neutrophils # (Auto) 9.31 K/uL Lymphocytes # (Auto) 0.63 K/uL Monocytes # (Auto) 0.61 K/uL Eosinophils # (Auto) 0.01 K/uL Basophils # (Auto) 0.01 K/uL RDW Standard Deviation 57.9 fL RDW Coefficient of Variation 18.1 % Immature Granulocyte % (Auto) 0.9 % Immature Granulocyte # (Auto) 0.10 K/uL Sodium Level 138 mmol/L Potassium Level 3.8 mmol/L Chloride Level 106 mmol/L Carbon Dioxide Level 19 mmol/L Anion Gap 13.0 mmol/L Blood Urea Nitrogen 61 mg/dl Creatinine 4.90 mg/dl Est Creatinine Clear Calc Drug Dose 12.6 ml/min Estimated GFR () 10.5 Estimated GFR (Non- 9.1 BUN/Creatinine Ratio 12.3 Random Glucose 129 mg/dl Calcium Level 8.6 mg/dl Random Vancomycin Level 26.7 mcg/ml Patient Name: ANAYA PERSAUD Unit Number: [id number] Dictated: 04/16/171749 Transcribed: 04/16/171749 ARG Printed Date/Time: [~ rep prt dt]/[~ rep prt tm] [~ rep ct labl] - [~ rep ct ivnm] [facility] [place] [address] Dictated: 04/16/171749 Transcribed: 04/16/171749 ARG Printed Date/Time: [~ rep prt dt]/[~ rep prt tm] [~ rep ct labl] - [~ rep ct ivnm] CT SCAN OF THE ABDOMEN AND PELVIS WITHOUT CONTRAST CLINICAL HISTORY: Fever, dehydration, history of renal transplant COMPARISON STUDY: 04/11/2017 TECHNIQUE: CT scan of the abdomen and pelvis was performed from the lung bases to the proximal femurs. Images are reviewed in the axial, sagittal, and coronal planes. IV contrast was not administered for this examination. A dose lowering technique was utilized adhering to the principles of ALARA. CT DOSE: 282.11 mGy.cm FINDINGS: Lower chest: There are bilateral calcified breast implants. There is a persistent pericardial effusion. There are new small bilateral pleural effusions left. There is bibasal atelectasis. Liver: There are multiple hepatic cysts. 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 The common bile duct remains dilated measuring 14 mm. Gallbladder: Not visualized Spleen: Normal in size and attenuation. Pancreas: Unremarkable. Adrenal glands: Unremarkable. Kidneys: Presumed surgically absent. There is a left lower quadrant renal transplant. There is no hydronephrosis. There is a stable rim calcified perinephric fluid collection measuring 22 mm. Bowel: There are postsurgical changes of a prior hemicolectomy. There are fluid-filled left upper quadrant small bowel loops which are of decreased diameter when compared the prior study. The findings are consistent with a resolving small bowel obstruction. Peritoneum: There is no intraperitoneal free air or abdominal ascites. Vasculature: The abdominal aorta is normal in course and caliber. Adenopathy: None. Pelvic viscera: The bladder, and pelvic viscera are unremarkable. Skeletal structures: No destructive osseous lesions are seen. IMPRESSION: 1. Postsurgical changes of a hemicolectomy 2. Resolution of previously described small bowel obstruction with residual mildly dilated left upper quadrant small bowel loops 3. Innumerable hepatic cysts 4. Stable common bile duct dilatation 5. Surgically absent kidneys. 6. Left lower quadrant transplant kidney with a stable perinephric fluid collection 7. Interval development of small bilateral pleural effusions right greater than left 8. Stable pericardial effusion Electronically signed by: John Narayanan M.D. 04/16/2017 5:59 PM Dictated Date/Time: 04/16/2017 5:50 PM The status of this report is Signed. Draft = Not yet reviewed or approved by Radiologist. Signed = Reviewed and approved by Radiologist. <AttendingPhy></AttendingPhy> <FamilyPhy>Grine, Shruthi M.,D.O.</FamilyPhy> < PrimaryPhy>Shruthi Mcbride D.O.</PrimaryPhy> <UnitNumber>[id number]</ UnitNumber> <VisitNumber>[id number]</VisitNumber> <PatientName>ANAYA PERSAUD</ PatientName> <DateOfBirth>1960</DateOfBirth> <Location>[facility]</Location> < ServiceDate>04/16/17</ServiceDate> <MNE>ESINDI</MNE> <OrderingPhy>Jailene Real PA-C</OrderingPhy> <OrderingPhyMNE>f rep ord dr santo</OrderingPhyMNE> < DictatingPhyMNE>f rep dict dr santo</DictatingPhyMNE> <CCListMNE>f rep ct mne</ CCListMNE> <AdmittingPhyMNE>f pt admit dr santo</AdmittingPhyMNE> <AttendingPhyMNE >f pt attend dr santo</AttendingPhyMNE> <ConsultingPhyMNE>f pt consult dr santo</ConsultingPhyMNE> <FamilyPhyMNE>f pt fam dr santo</FamilyPhyMNE> <OtherPhyMNE>f pt other dr santo</OtherPhyMNE> < PrimaryPhyMNE>f pt prim care dr santo</PrimaryPhyMNE> <ReferringPhyMNE>f pt referring dr santo</ReferringPhyMNE> Assessment & Plan 57-year-old female with history of renal transplant on immunosuppressive therapy with recent small bowel obstruction now presents with acute onset of fever with diarrhea. Clinical picture appears to be most consistent with gastroenteritis, worry about potential exposure from undercooked meat. Awaiting stool culture, but hopefully can discontinue antibiotics in the near future. Will follow.
--- NOTE | 2017-04-17 11:00 | Hospitalist Progress Note ---
Hospitalist Progress Note Date of Service Apr 17, 2017. (Jailene Real ., PA-C) Subjective Pt evaluation today including: conversation w/ patient, physical exam, chart review, lab review, review of inpatient medication list Pain: None PO Intake: NPO Voiding: no voiding problems Patient is feeling much better today, in fact she states that she feels back to her normal self. She does report having profuse diarrhea overnight after starting the antibiotics, but this has since slowed down. She denies any hematochezia or melena. The patient denies any fevers overnight and states her nausea and vomiting have resolved. She would like to eat. Her headache has also resolved. She still complains of a non-productive cough. Her weakness and fatigue have greatly improved, and she states she will walk around the hallways with her . The patient denies fevers, chills, sweats, chest pain, palpitations, claudication, wheezing, shortness of breath, nausea, vomiting, abdominal pain, dysuria, hematuria, urinary retention, paralysis, weakness, numbness and tingling. Additional Comments: See HPI for pertinent positives and negatives. All other systems reviewed and negative. (Jailene Real ., PA-C) Objective Vital Signs Date Time Temp Pulse Resp B/P (MAP) Pulse Ox O2 Delivery O2 Flow Rate FiO2 04/17/17 08:10 36.4 60 16 158/78 (104) 97 Room Air 04/17/17 04:00 Room Air 04/17/17 03:34 36.6 62 18 114/61 (78) 96 Room Air 04/17/17 00:00 Room Air 04/16/17 23:12 36.7 69 18 97/58 (71) 97 Room Air 04/16/17 22:40 65 100/61 (74) 04/16/17 21:50 67 95/57 (70) 92 04/16/17 20:33 72 89/55 (66) 04/16/17 20:00 98 Room Air 04/16/17 19:44 37.1 74 24 76/46 (56) 98 Room Air 88/56 (67) 04/16/17 18:15 38.9 98 20 93/63 (73) 94 Room Air 04/16/17 16:08 39.5 109 20 148/74 93 Room Air 04/16/17 15:45 94 Room Air 04/16/17 13:55 36.8 04/16/17 12:30 37.0 104/52 (Jailene Real ., DAVIDC) Physical Exam Notes: General appearance: +Appears well today. Well-developed, well-nourished, no apparent distress Head: Normocephalic, atraumatic Eyes: Normal inspection, PERRL, EOMI ENT: Normal ENT inspection, hearing grossly normal, pharynx normal Neck: Supple, no JVD, trachea midline Respiratory/Chest: +Decreased breath sounds right base. Lungs clear to auscultation, normal breath sounds, no respiratory distress Cardiovascular: Regular rate & rhythm, no gallop, no murmur Abdomen/GI: Normal bowel sounds, non-tender, soft Extremities/Musculoskeletal: Normal inspection, no calf tenderness, no pedal edema Neurological/Psych: Alert, normal mood/affect, oriented x 3 Skin: Normal color, warm/dry, no rash (Jailene Real, RICKIE-C) Laboratory Results Last 24 Hours Test 04/16/17 14:36 04/16/17 18:12 04/16/17 20:59 04/17/17 00:01 Lactic Acid Level 1.1 mmol/L Bedside Glucose 115 mg/dl 178 mg/dl 133 mg/dl Test 04/17/17 06:00 04/17/17 06:03 Bedside Glucose 130 mg/dl White Blood Count 10.67 K/uL Red Blood Count 3.59 M/uL Hemoglobin 9.9 g/dL Hematocrit 31.5 % Mean Corpuscular Volume 87.7 fL Mean Corpuscular Hemoglobin 27.6 pg Mean Corpuscular Hemoglobin Concent 31.4 g/dl Platelet Count 161 K/uL Mean Platelet Volume 10.1 fL Neutrophils (%) (Auto) 87.3 % Lymphocytes (%) (Auto) 5.9 % Monocytes (%) (Auto) 5.7 % Eosinophils (%) (Auto) 0.1 % Basophils (%) (Auto) 0.1 % Neutrophils # (Auto) 9.31 K/uL Lymphocytes # (Auto) 0.63 K/uL Monocytes # (Auto) 0.61 K/uL Eosinophils # (Auto) 0.01 K/uL Basophils # (Auto) 0.01 K/uL RDW Standard Deviation 57.9 fL RDW Coefficient of Variation 18.1 % Immature Granulocyte % (Auto) 0.9 % Immature Granulocyte # (Auto) 0.10 K/uL Sodium Level 138 mmol/L Potassium Level 3.8 mmol/L Chloride Level 106 mmol/L Carbon Dioxide Level 19 mmol/L Anion Gap 13.0 mmol/L Blood Urea Nitrogen 61 mg/dl Creatinine 4.90 mg/dl Est Creatinine Clear Calc Drug Dose 12.6 ml/min Estimated GFR () 10.5 Estimated GFR (Non- 9.1 BUN/Creatinine Ratio 12.3 Random Glucose 129 mg/dl Calcium Level 8.6 mg/dl Random Vancomycin Level 26.7 mcg/ml (Jailene Real .PAOLA) Diagnostic Results Reviewed the following studies and agree with interpretation as follows: Patient Name: ANAYA PERSAUD Unit Number: [id number] Dictated: 04/16/171749 Transcribed: 04/16/171749 ARG Printed Date/Time: [~ rep prt dt]/[~ rep prt tm] [~ rep ct labl] - [~ rep ct ivnm] [facility] [place] [address] Dictated: 04/16/171749 Transcribed: 04/16/171749 ARG Printed Date/Time: [~ rep prt dt]/[~ rep prt tm] [~ rep ct labl] - [~ rep ct ivnm] Patient: ANAYA PERSAUD Address1: [address] [place] [address] Rec: [id number] Address2: Acct ID: [id number] [facility] Zip: [place] [address] Date: 1960 Sex: F Room/Bed: Ref Phy: Shruthi Mcbride D.O. SC: EDNA Att Phy: Report #: [id number] Rosy Phy: Shruthi Mcbride D.O. Test: APWO Admit Phy: Equipment Oiler: KARELY Interpreting Phy: John Narayanan M.D. Diagnosis: FEVER Ordering Phy: Jailene Real PA-C Service Date: 04/16/17 Admit Date: 04/16/17 MNE: [id number] CONF: DICTATED BY: John Narayanan M.D.]] CC: Jailene Real ., Shruthi Aiken D.O. Ziff, Theodore, M.D. [facility]: [~ rep ct add3]] CT SCAN OF THE ABDOMEN AND PELVIS WITHOUT CONTRAST CLINICAL HISTORY: Fever, dehydration, history of renal transplant COMPARISON STUDY: 04/11/2017 TECHNIQUE: CT scan of the abdomen and pelvis was performed from the lung bases to the proximal femurs. Images are reviewed in the axial, sagittal, and coronal planes. IV contrast was not administered for this examination. A dose lowering technique was utilized adhering to the principles of ALARA. CT DOSE: 282.11 mGy.cm FINDINGS: Lower chest: There are bilateral calcified breast implants. There is a persistent pericardial effusion. There are new small bilateral pleural effusions left. There is bibasal atelectasis. Liver: There are multiple hepatic cysts. 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 The common bile duct remains dilated measuring 14 mm. Gallbladder: Not visualized Spleen: Normal in size and attenuation. Pancreas: Unremarkable. Adrenal glands: Unremarkable. Kidneys: Presumed surgically absent. There is a left lower quadrant renal transplant. There is no hydronephrosis. There is a stable rim calcified perinephric fluid collection measuring 22 mm. Bowel: There are postsurgical changes of a prior hemicolectomy. There are fluid-filled left upper quadrant small bowel loops which are of decreased diameter when compared the prior study. The findings are consistent with a resolving small bowel obstruction. Peritoneum: There is no intraperitoneal free air or abdominal ascites. Vasculature: The abdominal aorta is normal in course and caliber. Adenopathy: None. Pelvic viscera: The bladder, and pelvic viscera are unremarkable. Skeletal structures: No destructive osseous lesions are seen. IMPRESSION: 1. Postsurgical changes of a hemicolectomy 2. Resolution of previously described small bowel obstruction with residual mildly dilated left upper quadrant small bowel loops 3. Innumerable hepatic cysts 4. Stable common bile duct dilatation 5. Surgically absent kidneys. 6. Left lower quadrant transplant kidney with a stable perinephric fluid collection 7. Interval development of small bilateral pleural effusions right greater than left 8. Stable pericardial effusion Electronically signed by: John Narayanan M.D. 04/16/2017 5:59 PM Dictated Date/Time: 04/16/2017 5:50 PM The status of this report is Signed. Draft = Not yet reviewed or approved by Radiologist. Signed = Reviewed and approved by Radiologist. <AttendingPhy></AttendingPhy> <FamilyPhy>Shruthi Mcbride D.O.</FamilyPhy> < PrimaryPhy>Shruthi Mcbride D.O.</PrimaryPhy> <UnitNumber>[id number]</ UnitNumber> <VisitNumber>[id number]</VisitNumber> <PatientName>ANAYA PERSAUD</ PatientName> <DateOfBirth>1960</DateOfBirth> <Location>C.EDB</Location> < ServiceDate>04/16/17</ServiceDate> <MNE>ESINDI</MNE> <OrderingPhy>Jailene Real PA-C</OrderingPhy> <OrderingPhyMNE>f rep ord dr santo</OrderingPhyMNE> < DictatingPhyMNE>f rep dict dr santo</DictatingPhyMNE> <CCListMNE>f rep ct mne</ CCListMNE> <AdmittingPhyMNE>f pt admit dr santo</AdmittingPhyMNE> <AttendingPhyMNE >f pt attend dr santo</AttendingPhyMNE> <ConsultingPhyMNE>f pt consult dr santo</ConsultingPhyMNE> <FamilyPhyMNE>f pt fam dr santo</FamilyPhyMNE> <OtherPhyMNE>f pt other dr santo</OtherPhyMNE> < PrimaryPhyMNE>f pt prim care dr santo</PrimaryPhyMNE> <ReferringPhyMNE>f pt referring dr santo</ReferringPhyMNE> (Jailene Real .PAOLA) Assessment and Plan 57 y/o female with a history of polycystic kidney disease s/p bilateral nephrectomy and left renal transplant, anemia of chronic disease, DM II, HTN, HLD, depression, RLS, and h/o CVA who presented to the ED on 04/16 with nausea, vomiting, diarrhea, fevers, and weakness. The patient was initially afebrile on arrival however she did later develop a fever of 39.5C. Patient was also hypotensive on arrival the blood pressure did improve after receiving IV fluids. Pt now tachycardic. CXR no acute disease. KUB shows dilated loop of small bowel in LUQ, probable ileus. WBC 11.5. Creatinine elevated above baseline at 4.9. UA negative. Sepsis secondary to suspected abdominal source, ileus--improving -Admit to telemetry. No acute events overnight. Pt in sinus rhythm with HR in 60s. Stable, transfer to med/surg 04/17 -Blood cultures and stool culture pending -C. Diff negative -Zosyn and vancomycin IV for now -IVF with NSS at 125 cc/hr -Zosyn 4 mg IV q6h prn and Phenergan 12.5 mg IV q6h prn nausea -Advance to clear liquids -CT abdomen/pelvis shows resolving SBO with some residual dilated small bowel loops in LUQ. Interval development of small bilateral pleural effusions R>L. -Consult general surgery: No surgical intervention. Advance diet to clears, then advance as tolerated. Continue IV antibiotics and supportive care. Will sign off. -Consult infectious disease. Dr. Donato aware Acute renal failure, left renal transplant--baseline creatinine around 3.5, had been 3.3 on 04/14/17. Unchanged. -Creatinine 4.9 on admission -IVF as above -Creatinine unchanged on 04/17 at 4.9 -Consult nephrology, pt follows with Dr. Roy. Spoke to Dr. Roy, recommends CT A/P as above. Low threshold to transfer to [facility]. -Continue cyclosporine 75 mg PO BID, prednisone 2.5 mg PO qd and sirolimus 1 mg PO qd. Called pharmacy about sirolimus, should have some in stock -Stress dose steroids had been increased to hydrocortisone 50 mg IV q8h due to hypotension -Stable now, will decrease hydrocortisone to 50 mg IV qd Anemia of chronic disease--stable -Hgb 11.5 on admission, continue to monitor -Hgb 9.9 on 04/17 -Pt takes Procrit prn. Continue Ferrex DM II--stable. Last HgbA1c checked 02/19/17 was 5.8 -Decrease home Levemir to 15 units SC qpm -Insulin sliding scale -Check BSGs q ac and qhs HTN--stable after stress steroids/fluids -Continue Norvasc 5 mg PO qd and carvedilol 6.25 mg 1 tab qam and 2 tabs qpm. Carvedilol with hold parameters Depression -Continue Effexor 37.5 mg PO qd RLS -Continue Mirapex 0.125 mg PO qhs GERD -Continue pantoprazole 40 mg PO qd DVT prophylaxis -Heparin 5000 units SC q12h -HENOK hose and SCDs Code Status -Level I, FULL RESUSCITATION STATUS (Jailene Real ., PA-C) I agree with PA assessment and plan and have seen and examined pt myself Resting comfortably in bed Reports no abd pain Labs and vitals reviewed Noted inc in Nephrology following Likely to develop cdiff with hx COnt antibx at this time (Tony Mazariegos D.O.)
[2017-04-17 12:07] VITALS: BP 128/73; PULSE 62; TEMP 36.4; O2SAT 98
--- NOTE | 2017-04-17 14:38 | NEPHROLOGY CONSULTATION ---
DATE OF CONSULTATION: 04/17/2017 For the [facility] hospitalist service. SUBJECTIVE: Mrs. Bowling is a 57-year-old woman, well known to me. I have been following her since about 2011. She was admitted to the hospital yesterday with symptoms of chills and dry heaves. Mrs. Bowling has a significant past medical history revolving around her history of adult polycystic kidney disease. She developed end-stage renal disease in 1998. At that time she underwent a bilateral nephrectomy and was begun on maintenance dialysis. The nephrectomy was done apparently because of a history of urinary tract infections and in preparation of a possible kidney transplant. A complication of that hospitalization for nephrectomy was a CVA. However, she had no obvious long-term sequela of that episode. For the most part, she was on peritoneal dialysis at home. She remained on dialysis for 18 months prior to getting a kidney transplant from a living related donor, a cousin. 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 Her serum creatinine marc from its baseline of about 1.5-2.5 mg/dL. Her immunosuppression was changed at that time and her serum creatinine improved. She remained on a combination of prednisone and sirolimus. She moved to [facility] several years ago because of her 's change in jobs. Since that time, her transplant center has been [facility] in [place]. She saw Dr. 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 In May 2011, she developed an episode of acute abdominal pain and evidence of a bowel obstruction. She was transferred to the [facility] in [place]. There she underwent an apparent bowel resection and colostomy. Subsequently, her colostomy was taken down. Unfortunately, that surgery was complicated by the development of a wound infection and urinary tract infection and both requiring antibiotics. As a complication, she developed C. difficile colitis. She has been treated with oral vancomycin. Eventually, her wound infection cleared. She was managed at the wound center there. Unfortunately, she has had a progressive decline in her renal function. 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 Her baseline serum creatinine in the past few months has been about 3.5 mg/dL. Complications of her progressive renal insufficiency have included an anemia of chronic disease which has been managed with Procrit. She cannot tolerate oral iron, but has received IV iron in the past. Additionally, she has secondary hyperparathyroidism. She is currently in the process of being evaluated for another kidney transplant. That is being done through the [facility] in [place]. Additional complications have included diabetes mellitus and hypertension, both of which have been well controlled. Additionally, she has had recurring episodes of C. difficile colitis. She is currently on a course of Dificid. She had relapsed on that medication in the past. She is being considered for a fecal transplant to be done at [facility]. Also, she underwent a recent repair of a significant ventral hernia which was a consequence of her prior abdominal surgeries and wound infections. That surgery was done at the [facility]. She has a history of a small bowel obstruction in May 2011 and a history of recurring episodes of small bowel obstruction since that time, each improve with conservative therapy. Her most recent episode occurred just about a week ago when she was admitted to the hospital with a small bowel obstruction and volume depletion. Her renal function improved with IV hydration and her bowel obstruction improved with conservative therapy which included an NG tube. She left the hospital on March 17. She was feeling fine at that time. She was discharged on her usual medications. On March 18, she felt well until the evening when she began to develop a chilly sensation. She had no reji rigor. She went on to develop dry heaves. Her temperature at home was as high as 102. She denies having any abdominal pain. She did have a few loose stools but not large volume diarrhea. She returned to the hospital yesterday. At that time when seen in the Emergency Room, her temperature was as high as 39.5. Her white blood cell count was minimally elevated on her immunosuppression with a relatively normal differential. She was cultured and started on IV antibiotics with piperacillin and vancomycin. A CT scan of her abdomen, if anything, looked better with no evidence of bowel obstruction and no evidence of any abscess or abdominal collection. She has been hydrated. Her serum creatinine at the time of her presentation yesterday was back up to about 4.90 mg/dL and her BUN was 61. Her electrolytes were consistent with a metabolic acidosis. She has been continued on piperacillin. She generally feels better. She has not had any abdominal pain. She has had no further dry heaves. She did have a number of low volume bowel movements however. Currently, she feels well and has a good appetite. CURRENT MEDICATIONS: Include the following: Amlodipine 5 mg daily, biotin 5000 mcg each morning, azelastine nasal spray both nostrils daily, calcium with vitamin D 1 tablet on Monday, Monday and Monday, carvedilol 6.25 mg in the morning and 12.5 mg in the evening, Sandimmune 75 mg b.i.d., Premarin 0.625 mg on Mondays and , Dificid 200 mg b.i.d., Levemir insulin 20 units each evening, omega-3 fatty acids 2 tablets daily and multivitamin a day, Zofran 4 mg b.i.d. p.r.n., oxycodone q. 6 hours for pain, pantoprazole 40 mg daily, iron sulfate 150 mg b.i.d., Mirapex 0.125 mg at bedtime, prednisone 2.5 mg daily, sirolimus 1 mg each morning, venlafaxine 37.5 mg daily. She has also been getting piperacillin/tazobactam in appropriate renal doses and did receive vancomycin yesterday. ALLERGIES AND ADVERSE REACTIONS: ADHESIVES, ATORVASTATIN, CIPROFLOXACIN, DOXYCYCLINE, HYDROCHLOROTHIAZIDE, IODINATED CONTRAST AGENTS, LEVOTHYROXINE, MORPHINE AND OTHER OPIATES. The remainder of her past medical history, family history, social history and review of systems appears on her previous admission notes and will not be repeated. There is nothing to add. OBJECTIVE: GENERAL: On physical examination, she appears relatively healthy and well, although perhaps somewhat chronically ill. She was lying quietly in bed. She was in good spirits. VITAL SIGNS: Her temperature 36.4. Her blood pressure 158/78, her pulse 60 and regular, respiratory rate 16, her pulse ox 97% on room air. SKIN: Shows normal skin turgor. She has no obvious rash or infiltrative skin disease. She has multiple scars from prior surgical procedures including her renal transplant and multiple abdominal surgeries. LYMPHATICS: Show no palpable lymphadenopathy. HEENT: Her head is normal. She has no tenderness over the maxillary or frontal sinuses. EYES: Grossly normal. The ocular fundi were not examined today. EARS, NOSE, MOUTH AND THROAT: Unremarkable. Oral mucous membranes are moist. NECK: Supple. She has no jugular venous distention. There is no carotid bruit or thyromegaly. CHEST: Clear to auscultation. CARDIAC: Shows a regular rhythm. I do not hear a murmur or gallop. ABDOMEN: Nontender. She has multiple scars as noted. Bowel sounds are normal. Her renal transplant is palpable in the left lower quadrant. There is no bruit over the graft. There is no other obvious organomegaly or mass. EXTREMITIES: Show no current cyanosis, clubbing or peripheral edema. She has some chronic skin changes on her distal lower extremities. Peripheral pulses are intact. NEUROLOGIC: Shows no lateralizing findings. LABORATORY DATA: Current laboratory work shows a white count this morning at 10,670 with 87.3% neutrophils, 5.9% lymphocytes, 5.7% monocytes, 0.1% eosinophils and 0.1% basophils. Her hemoglobin is 9.9, hematocrit 31.5, platelet count 161,000. Her current urinalysis shows a specific gravity of 1.025. She has 2+ protein. Spun sediment shows 0-4 red cells per high power field. She has greater than 30 epithelial cells. No bacteria are noted. There is 2+ proteinuria. Clinical chemistries from this morning show a sodium of 138 mmol/L, potassium 3.8 mmol/L, chloride is 106 mmol/L, and CO2 content 12 mmol/L. Her anion gap is 13. Her BUN is 61. Her creatinine 4.90. Random blood sugar is 129, her serum calcium is 8.6. DIAGNOSTIC STUDIES: Imaging studies done during this hospitalization include a chest x-ray which is unremarkable. She had a KUB which notes postsurgical changes. A CT scan of her abdomen and pelvis showed no evidence of persistent bowel obstruction. She has the postsurgical changes of a hemicolectomy. There are no other significant abnormalities, although she has innumerable hepatic cysts consistent with her polycystic disease. She has a stable common bile duct dilatation. Her [place] kidneys are surgically absent and the left lower quadrant transplanted kidney appears unremarkable. ASSESSMENT: Mrs. Bowling has a complicated history of autosomal dominant polycystic kidney disease. She has progressive renal failure. She has had a history of multiple small bowel obstructions and recently had another episode. She has had chronic Clostridium difficile, which currently appears to be under control. She was recently hospitalized with a small bowel obstruction and improved with conservative therapy. She was doing well at home until she developed an acute illness characterized by a temperature to 102 or slightly higher as well as nausea and dry heaves. She came to the hospital immediately. She was cultured and started on antibiotics. Blood cultures are pending. She remained C. difficile colitis negative. She has no evidence of an intraabdominal collection. Although it is enticing to say that this may have just been a viral syndrome, she is still on antibiotics. Her serum creatinine marc and this likely was volume related. RECOMMENDATIONS: If it is assumed that this is a viral illness, I would discontinue her antibiotics. Assuming that she does not spike another fever, hopefully she can be discharged within the next 24 hours on her usual medications. Although I would recommend antibiotics be discontinued at least in the short term, I would continue her IV hydration and monitor her renal function and volume status closely. She should continue on her routine immunosuppression at this time. I will continue to follow her with you.
[2017-04-17 15:55] VITALS: BP 145/73; PULSE 60; TEMP 36.7; O2SAT 98
[2017-04-17] MEDS: VENLAFAXINE HCL 37.5 MG TAB PO SCH (21:11)
[2017-04-17] MEDS: IRON COMPLEX POLYSACCHARIDE W/VIT C 150 MG CAP PO SCH (21:13)
[2017-04-17] MEDS: PRAMIPEXOLE DIHYDROCHLORIDE 0.25MG TAB PO SCH (21:14)
[2017-04-17] MEDS: CARVEDILOL 12.5 MG TAB PO SCH (21:15)
[2017-04-17] MEDS: INSULIN DETEMIR FLEXPEN/FLEX TOUCH 100 UNITS/ML 3ML SC SCH (21:21)
[2017-04-17 23:29] VITALS: BP 152/69; PULSE 65; TEMP 36.8; O2SAT 100
[2017-04-17] MEDS ORDERED: NURSING VERBAL MED ORDER PRN (23:30)
[2017-04-17] MEDS ORDERED: ZOLPIDEM TARTRATE 5 MG TAB PO PRN (23:45)
[2017-04-17] MEDS ORDERED: ZOLPIDEM TARTRATE 5 MG TAB PO ONE (23:45)
[2017-04-18] MEDS: PIPERACILL/TAZOBAC IV 3.375 GM in DEXTROSE 5% 100ML IV SCH (05:50)
[2017-04-18] MEDS: INSULIN ASPART 100 UNITS/ML 3 ML PEN SC SCH ×2 (06:30→11:00)
[2017-04-18 07:42] LABS: BASO % 0.1 %; BASO ABS # 0.01 K/uL (0-0.2); COMPLETE YES; EOS % 0.5 %; HEMATOCRIT 30.8 % (37-47); IG% 1.4 %; LYMPH % 7.8 %; MEAN CELL VOLUME 86.8 fL (80-100); MEAN CORPUSCULAR HEMOGLOBIN 27.3 pg (25-34); MEAN CORPUSCULAR HGB CONC 31.5 g/dl (32-36); MEAN PLATELET VOLUME 10.5 fL (7.4-10.4); MONO % 13.5 %; NEUT % 76.7 %; PLATELET COUNT 190 K/uL (130-400); RED BLOOD COUNT 3.55 M/uL (4.2-5.4); WHITE BLOOD COUNT 7.68 K/uL (4.8-10.8)
[2017-04-18 07:43] VITALS: BP 165/73; PULSE 58; TEMP 36.4; O2SAT 99
[2017-04-18 07:53] VITALS: PULSE 66
[2017-04-18] MEDS: SODIUM CHLORIDE 0.9% 1000ML 1,000 ML IV SCH (07:53)
[2017-04-18] MEDS: PANTOprazole SOD 40 MG TAB PO SCH (07:54)
[2017-04-18] MEDS: HEPARIN SOD 5000 UNIT/0.5 ML CARP SQ SCH (07:54)
[2017-04-18] MEDS: CycloSPORINE (SANDIMMUNE) 25 MG CAP PO SCH (07:54)
[2017-04-18] MEDS: AMLODIPINE BESYLATE 5 MG TAB PO SCH (07:54)
[2017-04-18] MEDS: CARVEDILOL 6.25 MG TAB PO SCH (07:55)
[2017-04-18] MEDS: SIROLIMUS 0.5 MG TAB PO SCH (07:55)
[2017-04-18 08:23] LABS: BUN/CREATININE RATIO 13.9 (10-20); CALCIUM 8.3 mg/dl (8.5-10.1); CREATININE 3.7 mg/dl (0.60-1.20); POTASSIUM 2.7 mmol/L (3.5-5.1)
[2017-04-18] MEDS ORDERED: HYDROCORTISONE IV 50 MG in SYRINGE 0 ML IV SCH (09:00)
[2017-04-18] MEDS ORDERED: POTASSIUM CHLR 20 MEQ / WTR 40 MEQ in PREMIXED WATER 100 ML IV STA (09:33)
[2017-04-18] MEDS ORDERED: POTASSIUM CHLORIDE 10 MEQ TABCR PO ONE (10:00)
[2017-04-18] MEDS: POTASSIUM CHLR 10MEQ / WTR IV SCH ×2 (10:42→11:00)
--- NOTE | 2017-04-18 11:25 | Surgery Progress Note ---
Surgery Progress Note Date of Service Apr 18, 2017. Subjective + feeling well pt has no abdominal pain, no nausea, no vomiting, she tolerated the diet, Objective Vital Signs: Date Time Temp Pulse Resp B/P (MAP) Pulse Ox O2 Delivery O2 Flow Rate FiO2 04/18/17 08:00 Room Air 04/18/17 07:53 66 04/18/17 07:43 36.4 58 16 165/73 (103) 99 Room Air 04/18/17 00:00 Room Air 04/17/17 23:29 36.8 65 20 152/69 (96) 100 Room Air 04/17/17 16:00 Room Air 04/17/17 15:55 36.7 60 18 145/73 (97) 98 Room Air 04/17/17 15:05 36.4 62 16 98 04/17/17 12:07 36.4 62 16 128/73 (91) 98 Room Air 04/17/17 12:00 Room Air General Appearance: WD/WN, no apparent distress Head: normocephalic Neck: supple, no adenopathy Respiratory/Chest: chest non-tender, lungs clear, normal breath sounds Cardiovascular: regular rate, rhythm, no edema, no gallop Abdomen: normal bowel sounds, non tender, non distended Extremities: normal range of motion, non-tender, normal inspection Laboratory Results: Results Past 24 Hours Test 04/17/17 11:40 04/17/17 16:48 04/17/17 20:09 04/18/17 07:01 Range/Units Bedside Glucose 138 198 206 70-90 mg/dl White Blood Count 7.68 4.8-10.8 K/uL Red Blood Count 3.55 4.2-5.4 M/uL Hemoglobin 9.7 12.0-16.0 g/dL Hematocrit 30.8 37-47 % Mean Corpuscular Volume 86.8 80-100 fL Mean Corpuscular Hemoglobin 27.3 25-34 pg Mean Corpuscular Hemoglobin Concent 31.5 32-36 g/dl Platelet Count 190 130-400 K/uL Mean Platelet Volume 10.5 7.4-10.4 fL Neutrophils (%) (Auto) 76.7 % Lymphocytes (%) (Auto) 7.8 % Monocytes (%) (Auto) 13.5 % Eosinophils (%) (Auto) 0.5 % Basophils (%) (Auto) 0.1 % Neutrophils # (Auto) 5.88 1.4-6.5 K/uL Lymphocytes # (Auto) 0.60 1.2-3.4 K/uL Monocytes # (Auto) 1.04 0.11-0.59 K/uL Eosinophils # (Auto) 0.04 0-0.5 K/uL Basophils # (Auto) 0.01 0-0.2 K/uL RDW Standard Deviation 57.4 36.4-46.3 fL RDW Coefficient of Variation 18.0 11.5-14.5 % Immature Granulocyte % (Auto) 1.4 % Immature Granulocyte # (Auto) 0.11 0.00-0.02 K/uL Sodium Level 141 136-145 mmol/L Potassium Level 2.7 3.5-5.1 mmol/L Chloride Level 110 98-107 mmol/L Carbon Dioxide Level 19 21-32 mmol/L Anion Gap 12.0 3-11 mmol/L Blood Urea Nitrogen 52 7-18 mg/dl Creatinine 3.70 0.60-1.20 mg/dl Est Creatinine Clear Calc Drug Dose 16.7 ml/min Estimated GFR () 14.8 Estimated GFR (Non- 12.8 BUN/Creatinine Ratio 13.9 10-20 Random Glucose 82 70-99 mg/dl Calcium Level 8.3 8.5-10.1 mg/dl Random Vancomycin Level 16.6 mcg/ml Test 04/18/17 07:49 Range/Units Bedside Glucose 74 70-90 mg/dl Assessment & Plan pt is doing better, no abdominal pain, no nausea, no vomiting, she tolerated DM diet, no surgical issue now I sign off, Please call me if need me, pt agrees with the plan, Thanks,
[2017-04-18 11:35] VITALS: BP 165/73; PULSE 66; TEMP 36.4; O2SAT 99
--- NOTE | 2017-04-18 11:38 | NEPHROLOGY PROGRESS NOTE ---
DATE: 04/18/2017 SUBJECTIVE: Mrs. Bowling says that she is feeling quite well this morning. Her strength and energy seem to be good. She has had no chills or sweats. She has had no documented fever. She denies abdominal pain. She had 5 low-volume bowel movements yesterday. She has had only 1 today. She has had no hematochezia. She has had no nausea or vomiting. She has no symptoms of uremia. She has had no symptoms of volume overload. This morning, she was noted to be hypokalemic. She has been given oral potassium supplements and is in the midst of getting IV potassium supplements. However, she is having significant pain at the infusion site. OBJECTIVE: GENERAL: On physical exam, she appears relatively well and certainly in no distress. VITAL SIGNS: She is afebrile (36.4), her blood pressure 165/73, her pulse is 66 and regular, respiratory rate 16 and her pulse ox is 99% on room air. SKIN: Shows normal skin turgor. She has no obvious rash or infiltrative skin disease. She has scars from prior surgical procedures. LYMPHATICS: Show no palpable lymphadenopathy. HEAD: Normal. EYES: Grossly normal. The ocular fundi were not examined. EARS, NOSE, MOUTH AND THROAT: Unremarkable. Her oral mucous membranes are moist. NECK: Supple. There is no jugular venous distention. She has no carotid bruit or thyromegaly. CHEST: Clear to auscultation. CARDIAC: Shows a regular rhythm. There is no murmur or gallop. ABDOMEN: Nontender. She does have multiple scars. Bowel sounds are normal. Her kidney transplant is palpable in the left lower quadrant. It is nontender. There is no bruit over the graft. There is no other organomegaly or mass. EXTREMITIES: Show no cyanosis, clubbing or peripheral edema. She has some chronic skin changes on her distal lower extremities. Peripheral pulses are intact and she has good capillary refill of her fingers and toes. NEUROLOGIC: Shows no lateralizing changes. PERTINENT LABORATORY WORK: From today shows a white count of 7680 with an essentially normal differential. Her hemoglobin is 9.7, her hematocrit 30.8, and her platelet count 190,000. Her clinical chemistries from today show a sodium of 141 mmol/L, potassium 2.7 mmol/L, chlorides 110 mmol/L, and CO2 content 19 mmol/L. Her BUN is down to 52 and her creatinine is down to near her recent baseline of 3.70. Her serum calcium is 8.3. A random blood sugar is 82. Random vancomycin level was 16.6. ASSESSMENT: Mrs. Bowling appears to be doing quite well. She remains afebrile. She has been getting her IV antibiotics. However, her cultures remain negative. Her white count is normal. She has antibiotics on board as witnessed by her vancomycin level of 16.6 today. However, it does not appear as if she had a bacterial infection at the time of her admission. She is modestly hypokalemic today. The etiology is unclear since her potassium was normal previously. Although, she has continued to be volume expanded since her admission, I suspect that if anything that would have led to some degree of expansion acidosis and with that, her potassium should have risen somewhat. Whether or not she has a component of a respiratory alkalosis that overrides a metabolic acidosis is unclear without blood gases. Nonetheless, given her improved renal function, I see no reason why she simply cannot be replaced orally since she is having so much discomfort with IV potassium. RECOMMENDATIONS: Discontinue IV potassium. It should be safe for her discharge. I will follow her closely as an outpatient including a rechecking her serum potassium in a timely way. She was instructed to make an appointment to see me in 1 week, but to call if she has any recurrence of fever, abdominal pain or diarrhea. Despite the fact that her stool was currently negative for C. diff, I would continue her on her Dificid after discharge. Thank you for allowing me to participate in her care. Sincerely,
--- NOTE | 2017-04-18 11:50 | Discharge Instructions ---
Discharge Instructions Date of Service Apr 18, 2017. Admission Reason for Admission: Acute Renal Failure Discharge Discharge Diagnosis / Problem: Acute renal failure Discharge Goals Goal(s): Decrease discomfort, Improve function, Increase independence, Improve disease control, Learn about illness, Diagnostic testing, Prevent Disease Progression Activity Recommendations Activity Limitations: resume your previous activity Exercise/Sports Limitations: none . Instructions / Follow-Up Instructions / Follow-Up Patient to be discharged home No changes in medications made Likely has a bout of viral gastroenteritis ("stomach bug") No need for antibiotics on discharge Please follow up with Dr Mcbride and Dr Roy in 1-2 weeks If worsening abdominal pain, fevers or chills please report back to ER Current Hospital Diet Patient's current hospital diet: Diabetes Type 2 Diet, Renal Diet Discharge Diet Recommended Diet: Diabetes Type 2 Diet, Renal Diet Pending Studies Studies pending at discharge: no Laboratory Results Hemoglobin A1c Test 02/19/17 05:20 Range/Units Estimated Average Glucose 120 mg/dl Hemoglobin A1c 5.8 H 4.5-5.6 % Medical Emergencies . Who to Call and When: Medical Emergencies: If at any time you feel your situation is an emergency, please call 911 immediately. . Non-Emergent Contact Non-Emergency issues call your: Primary Care Provider Call Non-Emergent contact if: you have a fever, your pain is worsening . . "Provider Documentation" section prepared by Tony Mazariegos. . VTE Core Measure Inpt VTE Proph given/why not?: Unfractionated heparin SQ, T.E.D. Stockings, SCD 's
--- NOTE | 2017-04-18 16:25 | Discharge Summary ---
Discharge Summary Date of Service Apr 18, 2017. Discharge Summary Admission Date: Apr 16, 2017 at 16:45 Discharge Date: Apr 18, 2017 Discharge Disposition: Home Principal Diagnosis: Viral gastroenteritis Immunizations: Have You Had Influenza Vaccine: Yes Influenza Vaccine Date: Jul 11, 2012 History of Tetanus Vaccine?: Yes History of Pneumococcal: Yes History of Hepatitis B Vaccine: Yes Hepatitis Immunization Date: February 09, 2008 Consultations: General surgery Medication Reconciliation Continued Medications: Amlodipine Besylate (Amlodipine Besylate) 5 Mg Tab 1 TAB PO DAILY, #30 Azelastine HCl (Azelastine HCl) 0.15 % Spr 1 SPRAYS АНДРЕЙ DAILY Biotin (Biotin 5000) 5 Mg Cap 5000 MCG PO QAM Calcium W/ Vitamins D & K (Calcium + D + K) 1 Tab Tab 1 TABLET PO MWF Carvedilol (Carvedilol) 6.25 Mg Tab 1 TAB PO QAM, #180 Carvedilol (Carvedilol) 6.25 Mg Tab 2 TAB PO QPM Cyclosporine (Sandimmune) 25 Mg Cap 75 MG PO BID Epoetin Kvng (Procrit) 40,000 Units Inj 1 DOSE INJ for ANEMIA, #4 Estrogens, Conjugated (Premarin) 0.625 Mg Tab 0.625 MG PO 2XWK, TAB monday and Insulin Detemir (Levemir Flextouch) 100 Unit/Ml Inj 20 UNITS SC PM Krill Oil (Krill Oil [place]-3) 1 Cap Cap 2 TAB PO DAILY Multivitamin (Multivitamin) Tab 1 TAB PO QAM Ondansetron (Ondansetron HCl) 4 Mg Tab 1 TAB PO BID for Nausea, #25 Oxycodone HCl (Oxycodone HCl) 5 Mg Tab 1 TAB PO Q6H for Pain, #30 Pantoprazole (Pantoprazole Sodium) 40 Mg Tab 1 TAB PO DAILY, #90 Polysaccharide Iron Complex (Ferrex 150) 150 Mg Cap 150 MG PO QPM Pramipexole (Mirapex) 0.125 Mg Tab 0.125 MG PO HS, TAB Prednisone (Prednisone) 2.5 Mg Tab 2.5 MG PO QAM Sirolimus (Rapamune) 1 Mg Tab 1 MG PO QAM Venlafaxine Hcl (Effexor) 37.5 Mg Tab 1 TAB PO HS, #90 Discontinued Medications: Fidaxomicin (Dificid) 200 Mg Tab 200 MG PO BID, TAB Discharge Exam Review of Systems: Constitutional: No fever, No chills, No sweats, No weakness Eyes: No worsening of vision, No eye pain, No redness, No discharge ENT: No hearing loss, No unusual epistaxis, No nasal symptoms, No sore throat Respiratory: No cough, No sputum, No wheezing, No shortness of breath Cardiovascular: No chest pain, No orthopnea, No PND, No edema Abdomen: No pain, No nausea, No vomiting, No diarrhea Musculoskeletal: No joint pain, No muscle pain, No swelling, No calf pain Genitourinary - Female: No dysuria, No urinary frequency, No urinary urgency , No urinary incontinence Neurologic: No memory loss, No paralysis, No weakness, No numbness/tingling Psychiatric: No depression symptoms, No anhedonism, No anxiety, No insomnia Endocrine: No fatigue, No excessive thirst Physical Exam: General Appearance: WD/WN, no apparent distress Eyes: normal inspection, PERRL, EOMI, sclerae normal Neck: supple, no adenopathy, thyroid normal, no JVD Respiratory/Chest: chest non-tender, lungs clear, normal breath sounds, no respiratory distress Cardiovascular: regular rate, rhythm, no edema, no gallop, no JVD Abdomen / GI: normal bowel sounds, non tender, soft, no organomegaly Extremities: normal inspection, no calf tenderness, normal capillary refill , no pedal edema Neurologic/Psychiatric: alert, normal mood/affect, normal reflexes, oriented x 3 Skin: normal color, warm/dry, no rash Lymphatic: no adenopathy Hospital Course 57 y/o female with a history of polycystic kidney disease s/p bilateral nephrectomy and left renal transplant, anemia of chronic disease, DM II, HTN, HLD, depression, RLS, and h/o CVA who presented to the ED on 04/16 with nausea, vomiting, diarrhea, fevers, and weakness. The patient was initially afebrile on arrival however she did later develop a fever of 39.5C. Patient was also hypotensive on arrival the blood pressure did improve after receiving IV fluids. Pt now tachycardic. CXR no acute disease. KUB shows dilated loop of small bowel in LUQ, probable ileus. WBC 11.5. Creatinine elevated above baseline at 4.9. UA negative. Sepsis secondary to suspected abdominal source, ileus--resolved -Admitted to telemetry. No acute events overnight. Pt in sinus rhythm. Stable , transfer to med/surg 04/17 -Blood cultures and stool culture neg -C. Diff negative -Zosyn and vancomycin IV dced as likely viral gastroenteritis -IVF with NSS at 125 cc/hr -Zosyn 4 mg IV q6h prn and Phenergan 12.5 mg IV q6h prn nausea -Tolerating advanced diet -CT abdomen/pelvis shows resolving SBO with some residual dilated small bowel loops in LUQ. Interval development of small bilateral pleural effusions R>L. -Consult general surgery: No surgical intervention. Advance diet to clears, then advance as tolerated. Will sign off. Acute renal failure, left renal transplant--baseline creatinine around 3.5, had been 3.3 on 04/14/17. Unchanged. -Creatinine 4.9 on admission -IVF as above -Creatinine unchanged on 04/18 3.7, at baseline -Consult nephrology, pt follows with Dr. Roy. Spoke to Dr. Roy, recommends CT A/P as above. Low threshold to transfer to [facility]. -Continue cyclosporine 75 mg PO BID, prednisone 2.5 mg PO qd and sirolimus 1 mg PO qd. Called pharmacy about sirolimus, should have some in stock -Discharge on home dose of prednisone Anemia of chronic disease--stable -Hgb 11.5 on admission, continue to monitor -Pt takes Procrit prn. Continue Ferrex DM II--stable. Last HgbA1c checked 02/19/17 was 5.8 -Decrease home Levemir to 15 units SC qpm -Insulin sliding scale -Check BSGs q ac and qhs HTN--stable after stress steroids/fluids -Continue Norvasc 5 mg PO qd and carvedilol 6.25 mg 1 tab qam and 2 tabs qpm. Carvedilol with hold parameters Depression -Continue Effexor 37.5 mg PO qd RLS -Continue Mirapex 0.125 mg PO qhs GERD -Continue pantoprazole 40 mg PO qd DVT prophylaxis -Heparin 5000 units SC q12h -HENOK huff and Malaika Code Status -Level I, FULL RESUSCITATION STATUS Total Time Spent: Greater than 30 minutes This includes examination of the patient, discharge planning, medication reconciliation, and communication with other providers. Discharge Instructions Please refer to the electronic Patient Visit Report (Discharge Instructions) for additional information. Additional Copies To Shruthi Mcbride D.O.
[2017-06-26] MEDS ORDERED: CEFD300C3 PO (11:03)
[2017-06-26] MEDS ORDERED: DFC200 PO (11:03)
[2017-06-26] MEDS ORDERED: FRCT/ PO (11:08)
== END 2017-04-18 12:30 | disposition home or self-care (01) | DRG 872 ==
LOC: C.EDB 07:23 → C.2T 16:45 → ENRESERV 17:06 → CANRESERV 04-17 14:47 → ENRESERV 04-17 15:16 → C.MS2W 04-17 15:18
PROVIDERS: ADMIT Family Medicine; ATTEND Hospitalist
DX: A41.9 Sepsis, unspecified organism (principal); A08.4 Viral intestinal infection, unspecified; T86.12 Kidney transplant failure; N18.4 Chronic kidney disease, stage 4 (severe); Z94.0 Kidney transplant status; K56.7 Ileus, unspecified; J90 Pleural effusion, not elsewhere classified; J45.909 Unspecified asthma, uncomplicated; E11.21 Type 2 diabetes mellitus with diabetic nephropathy; E78.5 Hyperlipidemia, unspecified; D63.8 Anemia in other chronic diseases classified elsewhere; F32.9 Major depressive disorder, single episode, unspecified; Z90.5 Acquired absence of kidney; I12.9 Hypertensive chronic kidney disease with stage 1 through stage 4 chronic kidney disease, or unspecified chronic kidney disease; G25.81 Restless legs syndrome; Y92.009 Unspecified place in unspecified non-institutional (private) residence as the place of occurrence of the external cause; K21.9 Gastro-esophageal reflux disease without esophagitis; Z79.899 Other long term (current) drug therapy; E86.0 Dehydration; Y83.0 Surgical operation with transplant of whole organ as the cause of abnormal reaction of the patient, or of later complication, without mention of misadventure at the time of the procedure; Z87.448 Personal history of other diseases of urinary system; Z86.73 Personal history of transient ischemic attack (TIA), and cerebral infarction without residual deficits; R65.20 Severe sepsis without septic shock; Z87.891 Personal history of nicotine dependence; Z88.2 Allergy status to sulfonamides

== ENCOUNTER → 2017-04-27 | Outpatient (CLI) | payer BC ==
[~2017-04-27] MED LIST changes: +CEFD300C3 PO; +CYCL1CAP22 PO; +DFC200 PO; -FIDA1TAB PO; +FRCT/ PO; +NRL25 PO
[2017-04-27 17:50] LABS: HEMATOCRIT 33.7 % (37-47)
[2017-04-27 18:10] LABS: BLOOD UREA NITROGEN 88 mg/dl (7-18); BUN/CREATININE RATIO 27.5 (10-20); CALCIUM 9.5 mg/dl (8.5-10.1); CARBON DIOXIDE 24 mmol/L (21-32); CHLORIDE 104 mmol/L (98-107); GLUCOSE 229 mg/dl (70-99); POTASSIUM 5.4 mmol/L (3.5-5.1); SODIUM 135 mmol/L (136-145)
== END | disposition home or self-care (01) ==
LOC: C.LABBFT 12:54
PROVIDERS: ATTEND Physician Assistant
DX: Z94.0 Kidney transplant status (principal)

== ENCOUNTER → 2017-06-21 | Outpatient (CLI) | payer BC | END | disposition home or self-care (01) | LOC: C.LABBFT 09:27 | PROVIDERS: ATTEND Internal Medicine Gastroenterology | DX: A04.7 Enterocolitis due to Clostridium difficile (principal) ==

== ENCOUNTER 2017-06-24 04:33 | Observation (INO) | payer BC ==
[2017-06-24] VITALS (11 sets, daily range): BP systolic 102–124; BP diastolic 62–69; PULSE 65–95; TEMP 36.7–39.3; O2SAT 93–99; Ht 172.7 cm; Wt 66.5 kg
[~2017-06-24] VITALS: Ht 172.7 cm; Wt 66.5 kg
[~2017-06-24 04:33] MED LIST changes: -CEFD300C3 PO; -CYCL1CAP22 PO; -DFC200 PO; -FRCT/ PO; -NRL25 PO
[2017-06-24] MEDS ORDERED: HYDROmorphone INJ 1 MG/ML SYR IV STA (04:52)
[2017-06-24] MEDS ORDERED: SODIUM CHLORIDE 0.9% 1000ML 1,000 ML, SODIUM CHLORIDE 0.9% 1000ML 1,000 ML IV ONE (05:00)
[2017-06-24] MEDS ORDERED: ACETAMINOPHEN IV 100 ML IV ONE (05:00)
[2017-06-24 05:20] LABS: BASO % 0.1 %; BASO ABS # 0.01 K/uL (0-0.2); COMPLETE YES; EOS % 0.3 %; HEMATOCRIT 38.2 % (37-47); IG% 0.5 %; LYMPH % 2.7 %; LYMPH ABS # 0.28 K/uL (1.2-3.4); MEAN CELL VOLUME 88.4 fL (80-100); MEAN CORPUSCULAR HEMOGLOBIN 27.1 pg (25-34); MEAN CORPUSCULAR HGB CONC 30.6 g/dl (32-36); MEAN PLATELET VOLUME 9.4 fL (7.4-10.4); NEUT % 92.4 %; PLATELET COUNT 171 K/uL (130-400); RED BLOOD COUNT 4.32 M/uL (4.2-5.4); WHITE BLOOD COUNT 10.47 K/uL (4.8-10.8)
[2017-06-24 05:31] LABS: PROTHROMBIN TIME (PATIENT) 11.1 SECONDS (9.0-12.0)
[2017-06-24 05:42] LABS: BUN/CREATININE RATIO 22.5 (10-20); CALCIUM 8.7 mg/dl (8.5-10.1); MAGNESIUM 1.4 mg/dl (1.8-2.4)
[2017-06-24 05:53] LABS: ALB/GLOB RATIO 0.8 (0.9-2); THYROID STIMULATING HORMONE 1.02 uIu/ml (0.300-4.500)
[2017-06-24] MEDS ORDERED: MAGNESIUM SULFATE 1GM / D5W 1 GM BAG IV STA (06:12)
--- NOTE | 2017-06-24 08:21 | DIAGNOSTIC IMAGING REPORT ---
CHEST ONE VIEW PORTABLE CLINICAL HISTORY: 57 years-old Female presenting with Fever. TECHNIQUE: Portable upright AP view of the chest was obtained. COMPARISON: 04/16/2017. FINDINGS: Bilateral calcified breast implants. Cardiac mediastinal silhouette normal. Lungs and pleural spaces clear. Osseous structures normal. Upper abdomen normal. IMPRESSION: 1. No acute cardiopulmonary disease. Electronically signed by: Homar Denis M.D. 06/24/2017 8:20 AM Dictated Date/Time: 06/24/2017 8:20 AM
[2017-06-24] MEDS ORDERED: HYDROmorphone INJ 0.5 MG/0.5 ML SYR IV STA (09:14)
[2017-06-24 09:22] LABS: URINE APPEARANCE CLOUDY (CLEAR); URINE BILIRUBIN NEG (NEG); URINE COLOR YELLOW; URINE EPITHELIAL CELL AUTO >30 /lpf (0-5); URINE NITRITE NEG (NEG); URINE SPECIFIC GRAVITY 1.025 (1.000-1.030); UROBILINOGEN NEG (NEG); ZZUR CULT IF INDIC CLEAN CATCH YES
[2017-06-24 09:27] LABS: MANUAL MICROSCOPIC REQUIRED? NO; REVIEW REQ? YES
[2017-06-24] MEDS ORDERED: MAGNESIUM SULFATE 1GM / D5W 1 GM BAG ONE (09:38)
[2017-06-24] MEDS ORDERED: ALUMINUM/MAGNESIUM/SIMETH (MAALOX MAX) 30 ML UDC PO PRN (10:00)
[2017-06-24] MEDS ORDERED: POLYETHYLENE (MIRALAX) 17 GM PACK PO PRN (10:00)
[2017-06-24] MEDS ORDERED: ONDANSETRON INJ 2 MG/ML 2 ML VIAL IV PRN (10:00)
[2017-06-24] MEDS ORDERED: MAGNESIUM HYDROXIDE SUSP 30 ML UDC PO PRN (10:00)
[2017-06-24] MEDS ORDERED: IV FLUIDS COMPLETED PRN (10:30)
--- NOTE | 2017-06-24 10:30 | History and Physical ---
History & Physical Date & Time of Service: Jun 24, 2017 at 10:06 Chief Complaint: High Fever Primary Care Physician: Shruthi Mcbride D.O. History of Present Illness Source: patient, family ( at bedside), clinic records, hospital records Patient is a 57 y/o female with a history of polycystic kidney disease s/p bilateral nephrectomy and left renal transplant, anemia of chronic disease, DM II, HTN, HLD, RLS, and h/o CVA who presented to the ED on 06/24 due to nausea, vomiting, decreased appetite and fevers since 06/22. Patient last emesis was around 0300 this AM. She notes she has been eating/drinking very little over the last few days. What prompted her to the ED today was her spiking fevers. She was most recently admitted to [facility] on 04/16 due similar symptoms was septic secondary to abdominal ileus. Patient denies issues w/ abdominal discomfort, bloating, or constipation. +flatus, and last BM was yesterday (06/23). She has a h/o of c.diff and recently had a fecal transplant this month. She went for routine f/u on 06/19 and stool was negative for c.diff infection. She denies any diarrhea. Patient would like to avoid antibiotics if possible due to h/o recurrent c.diff infection and planning for kidney transplant in the near future. She states she had to get the c.diff taken care of before she can proceed with the transplant. She is currently NOT receiving dialysis. +cough w/ no sputum production. Patient denies any chills, sweats, lightheadedness, dizziness, vision changes, CP, palpitations, edema, SOB, wheezing, cough, abdominal pain, diarrhea, urinary symptoms, melena, numbness/tingling, weakness , muscle/joint pain, anxiety/depression, active bleeding, or new skin discoloration/changes. Past Medical/Surgical History Medical Problems: polycystic kidney disease s/p bilateral nephrectomy and left renal transplant anemia of chronic disease DM II HTN HLD RLS h/o CVA h/o recurrent c.diff s/p fecal transplant Surgical Problems: (1) Kidney Transplant Status Status: Resolved Family History Breast cancer Diabetes mellitus Heart disease Kidney disease Kidney stones Social History Smoking Status: Former Smoker Drug Use: none Marital Status: Housing status: lives with significant other Occupational Status: employed Immunizations History of Influenza Vaccine: Yes Influenza Vaccine Date: Jul 11, 2012 History of Tetanus Vaccine?: Yes History of Pneumococcal: Yes History of Hepatitis B Vaccine: Yes Hepatitis Immunization Date: February 09, 2008 Multi-Drug Resistant Organisms History of MDRO: No Allergies Coded Allergies: Iodinated Diagnostic Agents (Verified Allergy, Severe, Hx Kidney Transplant, 06/24/17) Statins (Verified Allergy, Severe, "PANCREATITIS", 06/24/17) Hydrochlorothiazide (Verified Allergy, Mild, 06/24/17) Sulfa Antibiotics (Verified Allergy, Mild, ., 06/24/17) Sumatriptan (Verified Allergy, Mild, 06/24/17) Triamterene (Verified Allergy, Mild, 06/24/17) Atorvastatin (Verified Allergy, Unknown, ?, 06/24/17) Doxycycline (Verified Allergy, Unknown, UNKNOWN, 06/24/17) Levofloxacin (Verified Allergy, Unknown, joint pain, 06/24/17) Adhesives (Verified Adverse Reaction, Unknown, SKIN TEAR, 06/24/17) Ciprofloxacin (Verified Adverse Reaction, Unknown, FATIGUE, 06/24/17) Morphine (Verified Adverse Reaction, Unknown, INEFFECTIVE, 06/24/17) Home Medications Scheduled Amlodipine Besylate (Amlodipine Besylate), 1 TAB PO DAILY Azelastine HCl (Azelastine HCl), 1 SPRAYS АНДРЕЙ DAILY Biotin (Biotin 5000), 5,000 MCG PO QAM Calcium W/ Vitamins D & K (Calcium + D + K), 1 TABLET PO MWF Carvedilol (Carvedilol), 3.125 MG PO QAM Carvedilol (Carvedilol), 12.5 MG PO QPM Cyclosporine (Neoral), 25 MG PO BID Cyclosporine Modified (For Rex (Cyclosporine Modified), 50 MG PO BID Estrogens, Conjugated (Premarin), 0.625 MG PO 2XWK Insulin Detemir (Levemir Flextouch), 20 UNITS SC PM Krill Oil (Krill Oil [place]-3), 2 TAB PO DAILY Multivitamin (Multivitamin), 1 TAB PO QAM Ondansetron (Ondansetron HCl), 1 TAB PO BID Oxycodone HCl (Oxycodone HCl), 1 TAB PO Q6H Pantoprazole (Pantoprazole Sodium), 1 TAB PO DAILY Polysaccharide Iron Complex (Ferrex 150), 150 MG PO QPM Pramipexole (Mirapex), 0.125 MG PO HS Prednisone (Prednisone), 2.5 MG PO QAM Sirolimus (Rapamune), 1 MG PO QAM Venlafaxine Hcl (Effexor), 1 TAB PO HS Miscellaneous Medications Epoetin Kvng (Procrit), 1 DOSE INJ Physical Exam Vital Signs Date Time Temp Pulse Resp B/P (MAP) Pulse Ox O2 Delivery O2 Flow Rate FiO2 06/24/17 09:10 67 17 92/49 95 Room Air 06/24/17 08:00 66 16 83/49 99 Room Air 06/24/17 07:50 99 Nasal Cannula 2.0 06/24/17 07:15 69 17 83/48 99 Room Air 06/24/17 06:34 92 Nasal Cannula 2.0 06/24/17 06:33 71 16 86/47 92 Nasal Cannula 2.0 06/24/17 06:27 68 20 84/45 91 Room Air 06/24/17 06:14 37.2 75 16 80/47 93 Room Air 06/24/17 04:39 39.2 117 22 125/74 94 Room Air General Appearance: no apparent distress Head: normocephalic, atraumatic Eyes: PERRL ENT: hearing grossly normal Neck: supple Respiratory/Chest: lungs clear, no respiratory distress, no accessory muscle use Cardiovascular: regular rate, rhythm Abdomen/GI: normal bowel sounds, non tender, soft Back: normal inspection Extremities/Musculoskelatal: no calf tenderness, no pedal edema, + pertinent finding (chronic stasis changes to bilateral lower extremities ) Neurologic/Psych: alert, normal mood/affect, oriented x 3 Skin: normal color, warm/dry, no rash Diagnostics Laboratory Results Results Past 24 Hours Test 06/24/17 05:08 06/24/17 05:16 06/24/17 09:00 Range/Units White Blood Count 10.47 4.8-10.8 K/uL Red Blood Count 4.32 4.2-5.4 M/uL Hemoglobin 11.7 12.0-16.0 g/dL Hematocrit 38.2 37-47 % Mean Corpuscular Volume 88.4 80-100 fL Mean Corpuscular Hemoglobin 27.1 25-34 pg Mean Corpuscular Hemoglobin Concent 30.6 32-36 g/dl Platelet Count 171 130-400 K/uL Mean Platelet Volume 9.4 7.4-10.4 fL Neutrophils (%) (Auto) 92.4 % Lymphocytes (%) (Auto) 2.7 % Monocytes (%) (Auto) 4.0 % Eosinophils (%) (Auto) 0.3 % Basophils (%) (Auto) 0.1 % Neutrophils # (Auto) 9.68 1.4-6.5 K/uL Lymphocytes # (Auto) 0.28 1.2-3.4 K/uL Monocytes # (Auto) 0.42 0.11-0.59 K/uL Eosinophils # (Auto) 0.03 0-0.5 K/uL Basophils # (Auto) 0.01 0-0.2 K/uL RDW Standard Deviation 61.7 36.4-46.3 fL RDW Coefficient of Variation 19.2 11.5-14.5 % Immature Granulocyte % (Auto) 0.5 % Immature Granulocyte # (Auto) 0.05 0.00-0.02 K/uL Prothrombin Time 11.1 9.0-12.0 SECONDS Prothromb Time International Ratio 1.0 0.9-1.1 Activated Partial Thromboplast Time 26.3 21.0-31.0 SECONDS Partial Thromboplastin Ratio 1.0 Sodium Level 135 136-145 mmol/L Potassium Level 4.0 3.5-5.1 mmol/L Chloride Level 104 98-107 mmol/L Carbon Dioxide Level 18 21-32 mmol/L Anion Gap 13.0 3-11 mmol/L Blood Urea Nitrogen 90 7-18 mg/dl Creatinine 4.00 0.60-1.20 mg/dl Est Creatinine Clear Calc Drug Dose 15.5 ml/min Estimated GFR () 13.5 Estimated GFR (Non- 11.6 BUN/Creatinine Ratio 22.5 10-20 Random Glucose 146 70-99 mg/dl Calcium Level 8.7 8.5-10.1 mg/dl Magnesium Level 1.4 1.8-2.4 mg/dl Total Bilirubin 1.2 0.2-1 mg/dl Aspartate Amino Transf (AST/SGOT) 16 15-37 U/L Alanine Aminotransferase (ALT/SGPT) 15 12-78 U/L Alkaline Phosphatase 103 45-117 U/L Total Protein 7.0 6.4-8.2 gm/dl Albumin 3.0 3.4-5.0 gm/dl Globulin 4.0 2.5-4.0 gm/dl Albumin/Globulin Ratio 0.8 0.9-2 Lipase 250 73-393 U/L Thyroid Stimulating Hormone (TSH) 1.020 0.300-4.500 uIu/ml Influenza Type A Antigen Neg for Influ A NEG Influenza Type B Antigen Neg for Influ B NEG Bedside Lactic Acid Venous 0.59 0.90-1.70 mmol/L Urine Color YELLOW Urine Appearance CLOUDY CLEAR Urine pH 5.0 4.5-7.5 Urine Specific [place] 1.025 1.000-1.030 Urine Protein 1+ NEG Urine Glucose (UA) NEG NEG Urine Ketones NEG NEG Urine Occult Blood NEG NEG Urine Nitrite NEG NEG Urine Bilirubin NEG NEG Urine Urobilinogen NEG NEG Urine Leukocyte Esterase NEG NEG Urine WBC (Auto) 1-5 0-5 /hpf Urine RBC (Auto) 0-4 0-4 /hpf Urine Hyaline Casts (Auto) 1-5 0-5 /lpf Urine Epithelial Cells (Auto) >30 0-5 /lpf Urine Bacteria (Auto) NEG NEG Urine Yeast (Auto) NONE PRSENT Microbiology Results 06/24/17 Blood Culture, Received Pending 06/24/17 Blood Culture, Received Pending 06/24/17 Urine Culture, Received Pending Diagnostic Radiology CHEST ONE VIEW PORTABLE CLINICAL HISTORY: 57 years-old Female presenting with Fever. TECHNIQUE: Portable upright AP view of the chest was obtained. COMPARISON: 04/16/2017. FINDINGS: Bilateral calcified breast implants. Cardiac mediastinal silhouette normal. Lungs and pleural spaces clear. Osseous structures normal. Upper abdomen normal. IMPRESSION: 1. No acute cardiopulmonary disease. Electronically signed by: Homar Denis M.D. 06/24/2017 8:20 AM Dictated Date/Time: 06/24/2017 8:20 AM The status of this report is Signed. Draft = Not yet reviewed or approved by Radiologist. Signed = Reviewed and approved by Radiologist. Impression Assessment and Plan Patient is a 57 y/o female with a history of polycystic kidney disease s/p bilateral nephrectomy and left renal transplant, anemia of chronic disease, DM II, HTN, HLD, RLS, and h/o CVA who presented to the ED on 06/24 due to nausea, vomiting, decreased appetite and fevers since 06/22. Fever and N/V, etiology unknown- ?secondary to viral process vs infectious: - Admit to med/surg - Avoid antibiotics at this time due to h/o c.diff w/ recent fecal transplant and planning for kidney transplant in future - IV Zofran PRN for nausea - Tylenol PRN for fever - Influenza screen- negative - UA unremarkable, UCx pending - BCx pending - Consult ID, appreciate recommendations - Consult nephrology, appreciate recommendations Hypotension, likely secondary to dehydration: - Hold BP medication - IVF @ 150 ml/hr Mild hyponatremia at 135, likely secondary to dehydration: IVF Hypomagnesemia at 1.4: - Replaced w/ IV Mag 1 gm x1 in ED; will give additional IV Mag x1 gm - Follow mag level and replace PRN MARCIO on CKD stage IV, likely secondary to dehydration- baseline Cr 3.5- follows w / Dr. Roy: IVF and follow PRP Polycystic kidney disease s/p bilateral nephrectomy and left renal transplant: Continue Rapamune 1 mg QAM, Prednisone 2.5 mg daily, Cyclosporine 75 mg BID Anemia of chronic disease- STABLE: - Pt takes Procrit PRN - Continue Ferrex T2DM- HgbA1c checked 02/19/17 was 5.8: - Continue Levemir to 20 units SC HS - BSG ACHS and sliding insulin scale HTN: - Hold Norvasc 5 mg PO qd due to hypotension - Continue Carvedilol 6.25 mg 1 tab qam and 2 tabs qpm w/ hold parameters Depression: Continue Effexor 37.5 mg PO qd RLS: Continue Mirapex 0.125 mg PO qhs GERD: Continue Pantoprazole 40 mg PO qd DVT prophylaxis: Heparin SQ BID Code Status: LEVEL I, FULL Dispo: From home- no discharge needs anticipated Attending Note I examined patient and discussed at length treatment plan. Given that patient is on immunosuppressive meds due to the meds she is on for her kidney transplant. I am concerned of a possible infection Currently no site has been identified. will obtain a KUB as patient has had obstruction in the past. Lactic acid is normal. Will place patient on ceftriaxone and flagyl after a long discussion with patient and . They agreed to antibiotics. consulted ID and discussed case. I agree with rest of the plan. Level of Care Med/Surg Advanced Directives Existing Living Will: No Existing Power of Screener And Blender: No Resuscitation Status FULL RESUSCITATION VTE Prophylaxis VTE Risk Assessment Done? Y/N: Yes Risk Level: Moderate Given or contraindicated: Unfractionated heparin SQ
[2017-06-24] MEDS: SODIUM CHLORIDE 0.9% 1000ML 1,000 ML IV SCH ×2 (10:54→17:51)
[2017-06-24] MEDS ORDERED: MAGNESIUM SULFATE 1GM / D5W 1 GM in PREMIXED IN D5W 100 ML IV SCH (11:00)
[2017-06-24] MEDS: INSULIN ASPART 100 UNITS/ML 3 ML PEN SC SCH ×3 (11:00→20:31)
[2017-06-24] MEDS ORDERED: CYCL1CAP22 PO (11:25)
[2017-06-24] MEDS ORDERED: NRL25 PO (11:25)
[2017-06-24] MEDS ORDERED: OXYCODONE HCL IR 5 MG TAB (IMMEDIATE RELEASE) PO ONE (11:45)
[2017-06-24] MEDS ORDERED: INFLUENZA VIRUS QUAD VACCINE 0.5 ML SYR IM. ONE (12:00)
[2017-06-24] MEDS ORDERED: INFLUENZA ADMINISTRATION CHARGE ONE (12:00)
[2017-06-24] MEDS: ACETAMINOPHEN 325 MG TAB PO PRN ×2 (12:48→22:15)
--- NOTE | 2017-06-24 12:56 | Nephrology Consultation ---
Nephrology Consultation Date & Providers Date of Consultation: Jun 24, 2017. Primary Care Provider: Shruthi Mcbride D.O. Referring Provider: Reason for Consultation Kidney transplant patient History of Present Illness Mrs. Bowling is a 57 year old white female w/ LRRT who is seen at the request of Dr. Coon to assist w/ medical management. 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 She underwent bilateral nephrectomy due to recurrent UTI and was started on CAPD. In 1999 Mrs. Bowling received a LRRT from a cousin. Post transplant her creatinine stabilized at ~ 2.0. Her chronic maintenance immunosuppressive regimen consisted of Sirolimus and Prednisone. Her medical course has been complicated by colonic obstruction requiring partial colectomy w/ ileostomy, reversal of ileostomy, ventral wall hernia repair, recurrent SBO, recurrent clostridium difficile infection s/p fecal transplant and h/o CVA. Mrs. Bowling has developed progressive dysfunction of her transplanted kidney. Her serum creatinine has recently risen to 3.4 - 4.0. She is undergoing evaluation for a potential second kidney transplant at [facility]. Mrs. Bowling reports that she has had a fever to 104, rigors and headache for the last 2 days. This has been associated w/ poor oral intake and recurrent emesis. She has been admitted for IV hydration and supportive medical care. She is reluctant to start antibiotic therapy due to her h/o recurrent Clostridium Difficile colitis. Past Medical/Surgical History Medical: # Living related renal transplant from cousin 2000 at [facility]. Transitioned to Rapamune therapy due to CSA toxicity # 12 cm cyst upper pole of transplant allograft # ADPKD # HTN # AODM # Asthma # Recurrent SBO # h/o CVA w/ left sided weakness 1998 # h/o chronic migraine FERRIS # h/o recurrent C. Difficile colitis Surgical: # LRRT # ADPKD s/p bilateral nephrectomy due to recurrent UTI # Cholecystectomy # Partial colectomy w/ ileostomy # Ileostomy reversal # Breast implants Allergies Coded Allergies: Iodinated Diagnostic Agents (Verified Allergy, Severe, Hx Kidney Transplant, 06/24/17) Statins (Verified Allergy, Severe, "PANCREATITIS", 06/24/17) Hydrochlorothiazide (Verified Allergy, Mild, 06/24/17) Sulfa Antibiotics (Verified Allergy, Mild, ., 06/24/17) Sumatriptan (Verified Allergy, Mild, 06/24/17) Triamterene (Verified Allergy, Mild, 06/24/17) Atorvastatin (Verified Allergy, Unknown, ?, 06/24/17) Doxycycline (Verified Allergy, Unknown, UNKNOWN, 06/24/17) Levofloxacin (Verified Allergy, Unknown, joint pain, 06/24/17) Adhesives (Verified Adverse Reaction, Unknown, SKIN TEAR, 06/24/17) Ciprofloxacin (Verified Adverse Reaction, Unknown, FATIGUE, 06/24/17) Morphine (Verified Adverse Reaction, Unknown, INEFFECTIVE, 06/24/17) Inpatient Medications Current Inpatient Medications Medications (Trade) Dose Ordered Sig/Dominique Route Start Time Stop Time Status Last Admin Dose Admin Sodium Chloride 1,000 ml @ 150 mls/hr Q6H40M IV 06/24/17 11:00 07/24/17 10:59 06/24/17 10:54 150 MLS/HR Acetaminophen (Tylenol Tab) 650 mg Q4H PRN PO 06/24/17 10:00 07/24/17 09:59 Al Hydrox/Mg Hydrox/Simethicone (Maalox Max Susp) 15 ml Q4H PRN PO 06/24/17 10:00 07/24/17 09:59 Magnesium Hydroxide (Milk Of Magnesia Susp) 30 ml Q6H PRN PO 06/24/17 10:00 07/24/17 09:59 Polyethylene (Miralax Powder Packet) 17 gm DAILY PRN PO 06/24/17 10:00 07/24/17 09:59 Ondansetron HCl (Zofran Inj) 4 mg Q6H PRN IV 06/24/17 10:00 07/24/17 09:59 Heparin Sodium (Porcine) (Heparin Sq 5000 Unit/0.5ml) 5,000 unit Q12H SQ 06/24/17 18:00 07/24/17 17:59 Carvedilol (Coreg Tab) 3.125 mg QAM PO 06/25/17 08:00 07/25/17 08:59 Carvedilol (Coreg Tab) 12.5 mg QPM PO 06/24/17 21:00 07/24/17 20:59 Cyclosporine (Neoral Cap) 75 mg BID PO 06/24/17 20:00 07/24/17 20:59 Estrogens Conjugated (Premarin Tab) 0.625 mg MoTh@0900 PO 06/26/17 09:00 07/26/17 08:59 Insulin Detemir (Levemir Flexpen/ FlexTouch) 20 units PM SC 06/24/17 21:00 07/24/17 20:59 Multivitamins (Multivitamin Tab) 1 tab QAM PO 06/25/17 08:00 07/25/17 08:59 Pantoprazole Sodium (Protonix Tab) 40 mg DAILY PO 06/25/17 08:00 07/25/17 08:59 Polysaccharide Iron Complex (Niferex-150 w/ Vit C Cap) 150 mg QPM PO 06/24/17 21:00 07/24/17 20:59 Pramipexole Dihydrochloride (miraPEX TAB) 0.125 mg HS PO 06/24/17 21:00 07/24/17 20:59 Prednisone (PredniSONE TAB) 2.5 mg QAM PO 06/25/17 08:00 07/25/17 08:59 Venlafaxine HCl (effeXOR TAB) 37.5 mg HS PO 06/24/17 21:00 07/24/17 20:59 Sirolimus (Sirolimus) 1 mg QAM PO 06/25/17 08:00 07/25/17 08:59 Insulin Aspart (novoLOG ASPART) SLIDING SCALE G... ACHS PR 06/24/17 11:00 07/24/17 10:59 Miscellaneous (Iv Fluids Completed) 1 ea PRN PRN N/A 06/24/17 10:30 06/24/18 10:29 Family History Breast cancer Diabetes mellitus Heart disease Kidney disease Kidney stones Positive for ASCVD Social History Smoking Status: Former Smoker Drug Use: none Marital Status: Housing Status: lives with significant other Occupation: employed . Resides in [place], [place]. Works in . Former smoker. Review of Systems Constitutional: + fever, + chills Respiratory: No cough, No sputum Cardiovascular: No chest pain Abdomen: + nausea, No pain, No diarrhea Genitourinary - Female: No dysuria, No hematuria A complete review of systems was performed. Pertinent positives are noted above. All other systems are negative. Physical Exam Date Time Temp Pulse Resp B/P (MAP) Pulse Ox O2 Delivery O2 Flow Rate FiO2 06/24/17 11:01 36.8 84 18 124/69 (87) 93 Room Air 06/24/17 10:16 66 16 88/51 99 Nasal Cannula 2.0 06/24/17 10:01 61 89/47 100 Nasal Cannula 2.0 06/24/17 09:46 65 90/46 98 Nasal Cannula 2.0 06/24/17 09:31 62 86/46 97 Nasal Cannula 2.0 06/24/17 09:30 64 98 Nasal Cannula 2.0 06/24/17 09:10 67 17 92/49 95 Room Air 06/24/17 08:00 66 16 83/49 99 Room Air 06/24/17 07:50 99 Nasal Cannula 2.0 06/24/17 07:15 69 17 83/48 99 Room Air 06/24/17 06:34 92 Nasal Cannula 2.0 06/24/17 06:33 71 16 86/47 92 Nasal Cannula 2.0 06/24/17 06:27 68 20 84/45 91 Room Air 06/24/17 06:14 37.2 75 16 80/47 93 Room Air 06/24/17 04:39 39.2 117 22 125/74 94 Room Air General Appearance: + mild distress (rigors) Head: atraumatic Eyes: PERRL, EOMI Neck: no adenopathy Respiratory/Chest: lungs clear, no respiratory distress Cardiovascular: regular rate, rhythm Abdomen/GI: non tender (no bowel sounds. LLQ transplant allograft is nontender. No arterial bruit over allograft), soft Extremities/Musculoskelatal: no calf tenderness, no pedal edema Neurologic/Psych: alert, oriented x 3 Laboratory Results Last 24 Hours Test 06/24/17 05:08 06/24/17 05:16 06/24/17 09:00 06/24/17 11:35 White Blood Count 10.47 K/uL Red Blood Count 4.32 M/uL Hemoglobin 11.7 g/dL Hematocrit 38.2 % Mean Corpuscular Volume 88.4 fL Mean Corpuscular Hemoglobin 27.1 pg Mean Corpuscular Hemoglobin Concent 30.6 g/dl Platelet Count 171 K/uL Mean Platelet Volume 9.4 fL Neutrophils (%) (Auto) 92.4 % Lymphocytes (%) (Auto) 2.7 % Monocytes (%) (Auto) 4.0 % Eosinophils (%) (Auto) 0.3 % Basophils (%) (Auto) 0.1 % Neutrophils # (Auto) 9.68 K/uL Lymphocytes # (Auto) 0.28 K/uL Monocytes # (Auto) 0.42 K/uL Eosinophils # (Auto) 0.03 K/uL Basophils # (Auto) 0.01 K/uL RDW Standard Deviation 61.7 fL RDW Coefficient of Variation 19.2 % Immature Granulocyte % (Auto) 0.5 % Immature Granulocyte # (Auto) 0.05 K/uL Prothrombin Time 11.1 SECONDS Prothromb Time International Ratio 1.0 Activated Partial Thromboplast Time 26.3 SECONDS Partial Thromboplastin Ratio 1.0 Sodium Level 135 mmol/L Potassium Level 4.0 mmol/L Chloride Level 104 mmol/L Carbon Dioxide Level 18 mmol/L Anion Gap 13.0 mmol/L Blood Urea Nitrogen 90 mg/dl Creatinine 4.00 mg/dl Est Creatinine Clear Calc Drug Dose 15.5 ml/min Estimated GFR () 13.5 Estimated GFR (Non- 11.6 BUN/Creatinine Ratio 22.5 Random Glucose 146 mg/dl Calcium Level 8.7 mg/dl Magnesium Level 1.4 mg/dl Total Bilirubin 1.2 mg/dl Aspartate Amino Transf (AST/SGOT) 16 U/L Alanine Aminotransferase (ALT/SGPT) 15 U/L Alkaline Phosphatase 103 U/L Total Protein 7.0 gm/dl Albumin 3.0 gm/dl Globulin 4.0 gm/dl Albumin/Globulin Ratio 0.8 Lipase 250 U/L Thyroid Stimulating Hormone (TSH) 1.020 uIu/ml Influenza Type A Antigen Neg for Influ A Influenza Type B Antigen Neg for Influ B Bedside Lactic Acid Venous 0.59 mmol/L Urine Color YELLOW Urine Appearance CLOUDY Urine pH 5.0 Urine Specific [place] 1.025 Urine Protein 1+ Urine Glucose (UA) NEG Urine Ketones NEG Urine Occult Blood NEG Urine Nitrite NEG Urine Bilirubin NEG Urine Urobilinogen NEG Urine Leukocyte Esterase NEG Urine WBC (Auto) 1-5 /hpf Urine RBC (Auto) 0-4 /hpf Urine Hyaline Casts (Auto) 1-5 /lpf Urine Epithelial Cells (Auto) >30 /lpf Urine Bacteria (Auto) NEG Urine Yeast (Auto) Bedside Glucose 128 mg/dl Impression (1) Fever (2) Chronic Kidney Disease, Stage Iv (Severe) (3) Diab Raeann Wo Compl, Type Ii Or Unspec Type, Uncontrolled (4) Dehydration (5) Kidney transplant recipient Mrs. Bowling has a LRRT due to ADPKD. She is chronically immunosuppressed w/ Rapamycin and low dose CSA. She has suffered progressive transplant dysfunction and her baseline creatinine has risen to 3.5 - 4.0. Mrs. Bowling has a complex medical history including recurrent SBO and C. Difficile colitis. She has been admitted due to fever, relative hypotension, dehydration and recurrent emesis Recommendations KIDNEY TRANSPLANT: -- Kidney function remains stable at this time. Electrolyte balance is acceptable. Continue current immunosuppressive regimen DEHYDRATION: -- Agree with providing 0.9NS IV at 150 cc/hr GI: -- Will order KUB x-ray to assess for ileus -- Recommend serial abdominal exams ID: -- Blood & urine cultures are pending -- ID consultation has been requested. Await recommendations
[2017-06-24] MEDS ORDERED: AZITHROMYCIN IV 500 MG in DEXTROSE 5% 250ML 250 ML IV SCH (13:35)
[2017-06-24] MEDS ORDERED: ACETAMINOPHEN IV 650 MG in EMPTY BAG 0 ML IV PRN (13:45)
--- NOTE | 2017-06-24 14:23 | DIAGNOSTIC IMAGING REPORT ---
KUB CLINICAL HISTORY: 57 years-old Female presenting with evaluate for possible ileus, recurrent nausea and vomiting. TECHNIQUE: Upright and supine views of the abdomen were obtained. COMPARISON: 04/16/2017. FINDINGS: Multiple surgical clips project over the abdomen. Numerous phleboliths noted in the pelvis. Anastomotic suture line noted in the mid left abdomen. Paucity of small bowel gas. Gas within the central abdomen is of unclear origin, possibly large bowel. Gas noted in the rectum. No gross pneumoperitoneum. Lung bases clear. Osseous structures normal. IMPRESSION: 1. Possibly of bowel gas, nonspecific. If there is continuing clinical concern, contrast-enhanced CT of the abdomen and pelvis should be considered. Electronically signed by: Homar Denis M.D. 06/24/2017 2:21 PM Dictated Date/Time: 06/24/2017 2:19 PM
[2017-06-24] MEDS ORDERED: CEFTRIAXONE SOD INJ 500 MG in DEXTROSE 5% 50ML 50 ML IV ONE (14:30)
[2017-06-24] MEDS ORDERED: TRAMADOL HCL 50 MG TAB PO PRN (15:45)
[2017-06-24] MEDS: METRONIDAZOLE / NSS 500 MG in PREMIXED NSS 100 ML IV SCH (16:00)
[2017-06-24] MEDS: CARVEDILOL 3.125 MG TAB PO SCH (16:01)
[2017-06-24] MEDS: SIROLIMUS 0.5 MG TAB PO SCH (16:02)
[2017-06-24] MEDS: HEPARIN SOD 5000 UNIT/0.5 ML CARP SQ SCH (17:52)
[2017-06-24] MEDS ORDERED: OXYCODONE HCL IR 5 MG TAB (IMMEDIATE RELEASE) PO PRN (18:30)
[2017-06-24] MEDS ORDERED: NURSING VERBAL MED ORDER ONE ×2 (18:30→22:15)
[2017-06-24] MEDS: CARVEDILOL 12.5 MG TAB PO SCH (20:30)
[2017-06-24] MEDS: IRON COMPLEX POLYSACCHARIDE W/VIT C 150 MG CAP PO SCH (20:31)
[2017-06-24] MEDS: PRAMIPEXOLE DIHYDROCHLORIDE 0.25MG TAB PO SCH (20:31)
[2017-06-24] MEDS: CycloSPORINE (NEORAL) 25 MG CAP PO SCH (20:31)
[2017-06-24] MEDS: VENLAFAXINE HCL 37.5 MG TAB PO SCH (20:31)
[2017-06-24] MEDS: INSULIN DETEMIR FLEXPEN/FLEX TOUCH 100 UNITS/ML 3ML SC SCH (20:32)
[2017-06-24] MEDS: CEFTRIAXONE SOD INJ 2,000 MG in DEXTROSE 5% 50ML 50 ML IV SCH (23:26)
[2017-06-25] MEDS: METRONIDAZOLE / NSS 500 MG in PREMIXED NSS 100 ML IV SCH ×2 (00:09→07:47)
[2017-06-25] MEDS: SODIUM CHLORIDE 0.9% 1000ML 1,000 ML IV SCH ×2 (00:20→07:47)
[2017-06-25] MEDS: OXYCODONE HCL IR 5 MG TAB (IMMEDIATE RELEASE) PO PRN ×2 (00:48→10:11)
--- NOTE | 2017-06-25 04:13 | EMERGENCY ROOM VISIT NOTE ---
History First contact with patient: 04:45 Chief Complaint: FEVER Stated Complaint: ACUTE RENAL FAILURE; DEHYDRATION; FEVER History of Present Illness The patient is a 57 year old female who presents to the Emergency Room with complaints of generalized illness, fever, and upset stomach symptoms for herself with a past one day. The patient has extensive past medical history including diabetes, kidney transplant, sepsis, and C. difficile. The patient has had episodes like this previously that rapidly cause her to become ill. She is undergoing evaluation for another kidney transplant. The patient does not have known exposure to disease. She states that she had a coughing episode yesterday, which did elicit a mild headache. She is not having significant URI symptoms, chest pain, chest tightness, or shortness of breath. She has not been having difficulties using the bathroom. She did take some Tylenol earlier tonight, however this did not significantly improve her symptoms. She states her temperature at home was as high as 104F. She rates her current discomfort a 7/10. Review of Systems More than 10 systems were reviewed and otherwise negative with the exception of history of present illness. Past Medical/Surgical History Medical Problems: (1) Abdominal pain (2) Abdominal pain (3) Acute renal failure (4) Acute renal insufficiency (5) Asthma, Unspecified (6) Chronic Kidney Disease, Stage Iv (Severe) (7) Clostridium difficile diarrhea (8) Diab Raeann Wo Compl, Type Ii Or Unspec Type, Uncontrolled (9) Fever (10) HTN (hypertension) (11) Hyperlipidemia Nec/Nos (12) Immunosuppressed status (13) Pancreatitis (14) Polycystic Kidney, Unspecified Type (15) SBO (small bowel obstruction) (16) SIRS (systemic inflammatory response syndrome) Surgical Problems: (1) Kidney transplant recipient (2) Kidney Transplant Status Family History Breast cancer Diabetes mellitus Heart disease Kidney disease Kidney stones Social History Smoking Status: Former Smoker Alcohol Use: none Drug Use: none Marital Status: Housing Status: lives with family Occupation Status: employed Current/Historical Medications Scheduled Amlodipine Besylate (Amlodipine Besylate), 1 TAB PO DAILY Azelastine HCl (Azelastine HCl), 1 SPRAYS АНДРЕЙ DAILY Biotin (Biotin 5000), 5,000 MCG PO QAM Calcium W/ Vitamins D & K (Calcium + D + K), 1 TABLET PO MWF Carvedilol (Carvedilol), 3.125 MG PO QAM Carvedilol (Carvedilol), 12.5 MG PO QPM Cyclosporine (Neoral), 25 MG PO BID Cyclosporine Modified (For Rex (Cyclosporine Modified), 50 MG PO BID Estrogens, Conjugated (Premarin), 0.625 MG PO 2XWK Insulin Detemir (Levemir Flextouch), 20 UNITS SC PM Krill Oil (Krill Oil [place]-3), 2 TAB PO DAILY Multivitamin (Multivitamin), 1 TAB PO QAM Ondansetron (Ondansetron HCl), 1 TAB PO BID Oxycodone HCl (Oxycodone HCl), 1 TAB PO Q6H Pantoprazole (Pantoprazole Sodium), 1 TAB PO DAILY Polysaccharide Iron Complex (Ferrex 150), 150 MG PO QPM Pramipexole (Mirapex), 0.125 MG PO HS Prednisone (Prednisone), 2.5 MG PO QAM Sirolimus (Rapamune), 1 MG PO QAM Venlafaxine Hcl (Effexor), 1 TAB PO HS Miscellaneous Medications Epoetin Kvng (Procrit), 1 DOSE INJ Physical Exam Vital Signs Date Time Temp Pulse Resp B/P (MAP) Pulse Ox O2 Delivery O2 Flow Rate FiO2 06/24/17 10:01 61 89/47 100 Nasal Cannula 2.0 06/24/17 09:46 65 90/46 98 Nasal Cannula 2.0 06/24/17 09:31 62 86/46 97 Nasal Cannula 2.0 06/24/17 09:30 64 98 Nasal Cannula 2.0 06/24/17 09:10 67 17 92/49 95 Room Air 06/24/17 08:00 66 16 83/49 99 Room Air 06/24/17 07:50 99 Nasal Cannula 2.0 06/24/17 07:15 69 17 83/48 99 Room Air 06/24/17 06:34 92 Nasal Cannula 2.0 06/24/17 06:33 71 16 86/47 92 Nasal Cannula 2.0 06/24/17 06:27 68 20 84/45 91 Room Air 06/24/17 06:14 37.2 75 16 80/47 93 Room Air 06/24/17 04:39 39.2 117 22 125/74 94 Room Air Physical Exam VITALS: Vitals are noted on the nurse's note and reviewed by myself. Vital signs with fever, tachycardia, and hypotension GENERAL: Cooperative white female who appears ill but not toxic EARS: External ear normal. External auditory canals clear, tympanic membranes pearly hooks without erythema or effusion bilaterally. EYES: Pupils equal round and reactive to light and accommodation. Conjunctivae without injection, sclerae without icterus. Extraocular movements intact. MOUTH: Mucous membranes moist. Tonsils are not enlarged. Pharynx without erythema, blood, or exudate. Uvula midline. Airway patent. NECK: Supple without nuchal rigidity. No lymphadenopathy. No thyromegaly. Cervical spine is nontender. HEART: Regular rate and rhythm without murmurs gallops or rubs. LUNGS: Clear to auscultation bilaterally without wheezes, rales or rhonchi. No retractions or accessory muscle use. ABDOMEN: Positive normal bowel sounds x 4. Soft without appreciable tenderness MUSCULOSKELETAL: No muscle atrophy, erythema, or edema noted. Full range of motion without joint tenderness in all extremities. NEURO: Patient was alert and oriented to person place and time. CN II through XII grossly intact. Medical Decision & Procedures ER Provider Diagnostic Interpretation: CHEST ONE VIEW PORTABLE CLINICAL HISTORY: 57 years-old Female presenting with Fever. TECHNIQUE: Portable upright AP view of the chest was obtained. COMPARISON: 04/16/2017. FINDINGS: Bilateral calcified breast implants. Cardiac mediastinal silhouette normal. Lungs and pleural spaces clear. Osseous structures normal. Upper abdomen normal. IMPRESSION: 1. No acute cardiopulmonary disease. Laboratory Results 06/24/17 05:08 Red Blood Count 4.32, Mean Corpuscular Volume 88.4, Mean Corpuscular Hemoglobin 27.1, Mean Corpuscular Hemoglobin Concent 30.6, Mean Platelet Volume 9.4, Neutrophils (%) (Auto) 92.4, Lymphocytes (%) (Auto) 2.7, Monocytes (%) (Auto) 4.0, Eosinophils (%) (Auto) 0.3, Basophils (%) (Auto) 0.1, Neutrophils # (Auto) 9.68, Lymphocytes # (Auto) 0.28, Monocytes # (Auto) 0.42, Eosinophils # (Auto) 0.03, Basophils # (Auto) 0.01 06/24/17 05:08 Test 06/24/17 05:08 06/24/17 05:16 06/24/17 09:00 White Blood Count 10.47 K/uL (4.8-10.8) Red Blood Count 4.32 M/uL (4.2-5.4) Hemoglobin 11.7 g/dL (12.0-16.0) Hematocrit 38.2 % (37-47) Mean Corpuscular Volume 88.4 fL (80-100) Mean Corpuscular Hemoglobin 27.1 pg (25-34) Mean Corpuscular Hemoglobin Concent 30.6 g/dl (32-36) Platelet Count 171 K/uL (130-400) Mean Platelet Volume 9.4 fL (7.4-10.4) Neutrophils (%) (Auto) 92.4 % Lymphocytes (%) (Auto) 2.7 % Monocytes (%) (Auto) 4.0 % Eosinophils (%) (Auto) 0.3 % Basophils (%) (Auto) 0.1 % Neutrophils # (Auto) 9.68 K/uL (1.4-6.5) Lymphocytes # (Auto) 0.28 K/uL (1.2-3.4) Monocytes # (Auto) 0.42 K/uL (0.11-0.59) Eosinophils # (Auto) 0.03 K/uL (0-0.5) Basophils # (Auto) 0.01 K/uL (0-0.2) RDW Standard Deviation 61.7 fL (36.4-46.3) RDW Coefficient of Variation 19.2 % (11.5-14.5) Immature Granulocyte % (Auto) 0.5 % Immature Granulocyte # (Auto) 0.05 K/uL (0.00-0.02) Prothrombin Time 11.1 SECONDS (9.0-12.0) Prothromb Time International Ratio 1.0 (0.9-1.1) Activated Partial Thromboplast Time 26.3 SECONDS (21.0-31.0) Partial Thromboplastin Ratio 1.0 Anion Gap 13.0 mmol/L (3-11) Est Creatinine Clear Calc Drug Dose 15.5 ml/min Estimated GFR () 13.5 Estimated GFR (Non- 11.6 BUN/Creatinine Ratio 22.5 (10-20) Calcium Level 8.7 mg/dl (8.5-10.1) Magnesium Level 1.4 mg/dl (1.8-2.4) Total Bilirubin 1.2 mg/dl (0.2-1) Aspartate Amino Transf (AST/SGOT) 16 U/L (15-37) Alanine Aminotransferase (ALT/SGPT) 15 U/L (12-78) Alkaline Phosphatase 103 U/L (45-117) Total Protein 7.0 gm/dl (6.4-8.2) Albumin 3.0 gm/dl (3.4-5.0) Globulin 4.0 gm/dl (2.5-4.0) Albumin/Globulin Ratio 0.8 (0.9-2) Lipase 250 U/L (73-393) Thyroid Stimulating Hormone (TSH) 1.020 uIu/ml (0.300-4.500) Influenza Type A Antigen Neg for Influ A (NEG) Influenza Type B Antigen Neg for Influ B (NEG) Bedside Lactic Acid Venous 0.59 mmol/L (0.90-1.70) Urine Color YELLOW Urine Appearance CLOUDY (CLEAR) Urine pH 5.0 (4.5-7.5) Urine Specific [place] 1.025 (1.000-1.030) Urine Protein 1+ (NEG) Urine Glucose (UA) NEG (NEG) Urine Ketones NEG (NEG) Urine Occult Blood NEG (NEG) Urine Nitrite NEG (NEG) Urine Bilirubin NEG (NEG) Urine Urobilinogen NEG (NEG) Urine Leukocyte Esterase NEG (NEG) Urine WBC (Auto) 1-5 /hpf (0-5) Urine RBC (Auto) 0-4 /hpf (0-4) Urine Hyaline Casts (Auto) 1-5 /lpf (0-5) Urine Epithelial Cells (Auto) >30 /lpf (0-5) Urine Bacteria (Auto) NEG (NEG) Urine Yeast (Auto) (NONE PRSENT) Medications Administered Medications (Trade) Dose Ordered Sig/Dominique Route Start Time Stop Time Status Last Admin Dose Admin Sodium Chloride/ Sodium Chloride 2,000 ml @ 999 mls/hr Q2H1M ONCE IV 06/24/17 05:00 06/24/17 07:00 DC 06/24/17 05:20 999 MLS/HR Acetaminophen 100 ml @ 400 mls/hr NOW ONCE IV 06/24/17 05:00 06/24/17 05:14 DC 06/24/17 05:21 400 MLS/HR Hydromorphone HCl (Dilaudid Inj) 1 mg NOW STAT IV 06/24/17 04:52 06/24/17 04:54 DC 06/24/17 05:21 1 MG Magnesium Sulfate (Magnesium Sulfate) 1 gm NOW STAT IV 06/24/17 06:12 06/24/17 06:13 DC 06/24/17 10:54 1 GM Hydromorphone HCl (Dilaudid Inj) 0.5 mg NOW STAT IV 06/24/17 09:14 06/24/17 09:15 DC 06/24/17 09:21 0.5 MG Acetaminophen (Tylenol Tab) 650 mg Q4H PRN PO 06/24/17 10:00 07/24/17 09:59 06/24/17 22:15 650 MG Ondansetron HCl (Zofran Inj) 4 mg Q6H PRN IV 06/24/17 10:00 07/24/17 09:59 06/24/17 12:51 4 MG ED Course Physical exam and history were performed. Nursing notes, EMR, and Medication List were personally reviewed. Patient appears to have fever and tachycardia for the past one day. The patient has an extensive history including kidney transplant and diabetes. She has a history of sepsis and C difficile. She evidently just recently underwent stool transplant to help cure C. difficile, and is very apprehensive with starting antibiotics. I do consider her to be immunocompromised because of her transplant status and diabetic history. IV access was established and labs were obtained. The patient was hydrated with 2 L normal saline. Blood cultures were obtained. Chest x-ray was performed. Urine was gathered. The patient's blood work is as above and was reviewed. She does not have a significantly elevated white blood cell count or gross anemia. Her lactic acid is negative. Influenza swab is also negative. Chest x-ray does not show acute findings. Urine was noncontributory. The patient does have an elevated creatinine of 4.0, which is worse than her normal baseline. I have hesitation with this patient, as again I consider her to be immunocompromised. She has a high fever that has improved with treatment here in the department. She did have episodes of hypertensive here, but this also improved with hydration. I was not able to identify a source of her fever here in the department. There is a history of C. difficile with the patient, and there is reservation about starting empiric antibiotics. I discussed the case with the on-call hospitalist, who agreed to evaluate the patient here in the department. I will defer further treatment to their expertise. The patient remained in stable condition throughout the remainder of her ER stay. The chart was completed utilizing [employer] Speech Voice Recognition Software. Grammatical errors, random word insertions, pronoun errors, and incomplete sentences are an occasional consequence of this system due to software limitations, ambient noise, and hardware issues. Any formal questions or concerns about the content, text, or information contained within the body of this dictation should be directly addressed to the provider for clarification. . Medical Decision Differential diagnosis: Etiologies such as viral syndrome, otitis, pharyngitis, pneumonia, influenza, meningitis, urinary tract infection, sepsis, bacteremia, as well as others were entertained. Blood Pressure Screening Patient's blood pressure: Low blood pressure Impression Primary Impression: SIRS (systemic inflammatory response syndrome) Additional Impressions: Acute renal failure Dehydration Departure Information Dispostion Still a Patient Condition FAIR Referrals Shruthi Mcbride,DSereneO. (PCP) Forms HOME CARE DOCUMENTATION FORM, IMPORTANT VISIT INFORMATION Patient Instructions My [facility] Problem Qualifiers
[2017-06-25 06:04] LABS: HEMATOCRIT 33.1 % (37-47); MEAN CELL VOLUME 89.7 fL (80-100); MEAN CORPUSCULAR HEMOGLOBIN 26.6 pg (25-34); MEAN CORPUSCULAR HGB CONC 29.6 g/dl (32-36); MEAN PLATELET VOLUME 9.1 fL (7.4-10.4); PLATELET COUNT 146 K/uL (130-400); RED BLOOD COUNT 3.69 M/uL (4.2-5.4); WHITE BLOOD COUNT 4.94 K/uL (4.8-10.8)
[2017-06-25] MEDS: HEPARIN SOD 5000 UNIT/0.5 ML CARP SQ SCH ×2 (06:08→18:04)
[2017-06-25 06:23] LABS: BUN/CREATININE RATIO 19.9 (10-20); CREATININE 3.5 mg/dl (0.60-1.20); MAGNESIUM 1.8 mg/dl (1.8-2.4)
[2017-06-25] MEDS: INSULIN ASPART 100 UNITS/ML 3 ML PEN SC SCH ×4 (06:30→20:40)
[2017-06-25] MEDS: SIROLIMUS 0.5 MG TAB PO SCH (07:53)
[2017-06-25] MEDS: CARVEDILOL 3.125 MG TAB PO SCH (07:53)
[2017-06-25] MEDS: MULTIVITAMIN TAB PO SCH (07:53)
[2017-06-25] MEDS: CycloSPORINE (NEORAL) 25 MG CAP PO SCH ×2 (07:54→20:38)
[2017-06-25] MEDS: PANTOprazole SOD 40 MG TAB PO SCH (07:54)
[2017-06-25 08:00] VITALS: O2SAT 94
[2017-06-25 08:24] VITALS: BP 103/59; PULSE 60; TEMP 36.4; O2SAT 96
--- NOTE | 2017-06-25 09:38 | Progress Note ---
Progress Note Date of Service Jun 25, 2017. Progress Note ID Consult Dictated #[id number] A/P: 1. GNR sepsis 2. Fever 3. Recurrent c diff s/p transplant -Continue IV abx, await final ID gnr -Needs repeat blood cultures -will change to dificid due to pt request -will follow, thank you
--- NOTE | 2017-06-25 10:39 | Nephrology Progress Note ---
Nephrology Progress Note Date of Service Jun 25, 2017. Chief Complaint Kidney transplant patient Subjective Mrs. Bowling was seen & examined in her hospital room this morning. Her was at bedside. Mrs. Bowling reports that her fever has broken, her rigors and nausea have resolved. She is subjectively improved. Blood cultures have returned positive for gram negative bacilli. She has agreed to antibiotic therapy. Review of Systems Constitutional: No fever Cardiovascular: No chest pain Respiratory: No dyspnea at rest Abdomen: No pain, No nausea Extremities: No leg edema A complete review of systems was performed. Pertinent positives are noted above. All other systems are negative. Vital Signs Last 8 Hrs Date Time Temp Pulse Resp B/P (MAP) Pulse Ox O2 Delivery O2 Flow Rate FiO2 06/25/17 08:24 36.4 60 18 103/59 (74) 96 Room Air 06/25/17 08:00 94 Room Air Last Recorded Weight Weight (Kilograms): 66.500 Physical Exam General Appearance: no apparent distress Head: normocephalic, atraumatic Eyes: PERRL, EOMI Neck: no adenopathy Respiratory/Chest: lungs clear, no respiratory distress Cardiovascular: regular rate, rhythm Abdomen/GI: non tender (hypoactive bowel sounds. LLQ renal allograft is nontender to palpation), soft Extremities/Musculoskelatal: no pedal edema Neurologic/Psych: alert, oriented x 3 Family History Breast cancer Diabetes mellitus Heart disease Kidney disease Kidney stones Positive for ASCVD Social History Smoking Status: Never smoker Drug Use: none Marital Status: Housing Status: lives with significant other Occupation: employed . Resides in [place], [place]. Works in . Former smoker. Laboratory Results Past 24 Hours 06/25/17 05:29 06/25/17 05:29 Test 06/24/17 11:35 06/24/17 16:42 06/24/17 20:16 06/25/17 05:29 Bedside Glucose 128 mg/dl (70-90) 146 mg/dl (70-90) 167 mg/dl (70-90) Red Blood Count 3.69 M/uL (4.2-5.4) Mean Corpuscular Volume 89.7 fL (80-100) Mean Corpuscular Hemoglobin 26.6 pg (25-34) Mean Corpuscular Hemoglobin Concent 29.6 g/dl (32-36) RDW Standard Deviation 63.8 fL (36.4-46.3) RDW Coefficient of Variation 19.5 % (11.5-14.5) Mean Platelet Volume 9.1 fL (7.4-10.4) Anion Gap 11.0 mmol/L (3-11) Est Creatinine Clear Calc Drug Dose 17.7 ml/min Estimated GFR () 15.8 Estimated GFR (Non- 13.6 BUN/Creatinine Ratio 19.9 (10-20) Calcium Level 8.0 mg/dl (8.5-10.1) Magnesium Level 1.8 mg/dl (1.8-2.4) Test 06/25/17 07:45 Bedside Glucose 82 mg/dl (70-90) Allergies Coded Allergies: Iodinated Diagnostic Agents (Verified Allergy, Severe, Hx Kidney Transplant, 06/24/17) Statins (Verified Allergy, Severe, "PANCREATITIS", 06/24/17) Hydrochlorothiazide (Verified Allergy, Mild, 06/24/17) Sulfa Antibiotics (Verified Allergy, Mild, ., 06/24/17) Sumatriptan (Verified Allergy, Mild, 06/24/17) Triamterene (Verified Allergy, Mild, 06/24/17) Atorvastatin (Verified Allergy, Unknown, ?, 06/24/17) Doxycycline (Verified Allergy, Unknown, UNKNOWN, 06/24/17) Levofloxacin (Verified Allergy, Unknown, joint pain, 06/24/17) Adhesives (Verified Adverse Reaction, Unknown, SKIN TEAR, 06/24/17) Ciprofloxacin (Verified Adverse Reaction, Unknown, FATIGUE, 06/24/17) Morphine (Verified Adverse Reaction, Unknown, INEFFECTIVE, 06/24/17) Medications Current Inpatient Medications Medications (Trade) Dose Ordered Sig/Dominique Route Start Time Stop Time Status Last Admin Dose Admin Sodium Chloride 1,000 ml @ 150 mls/hr Q6H40M IV 06/24/17 11:00 07/24/17 10:59 06/25/17 07:47 150 MLS/HR Acetaminophen (Tylenol Tab) 650 mg Q4H PRN PO 06/24/17 10:00 07/24/17 09:59 06/24/17 22:15 650 MG Al Hydrox/Mg Hydrox/Simethicone (Maalox Max Susp) 15 ml Q4H PRN PO 06/24/17 10:00 07/24/17 09:59 Magnesium Hydroxide (Milk Of Magnesia Susp) 30 ml Q6H PRN PO 06/24/17 10:00 07/24/17 09:59 Polyethylene (Miralax Powder Packet) 17 gm DAILY PRN PO 06/24/17 10:00 07/24/17 09:59 Ondansetron HCl (Zofran Inj) 4 mg Q6H PRN IV 06/24/17 10:00 07/24/17 09:59 06/24/17 12:51 4 MG Heparin Sodium (Porcine) (Heparin Sq 5000 Unit/0.5ml) 5,000 unit Q12H SQ 06/24/17 18:00 07/24/17 17:59 06/25/17 06:08 5,000 UNIT Carvedilol (Coreg Tab) 3.125 mg QAM PO 06/25/17 08:00 07/25/17 08:59 06/25/17 07:53 3.125 MG Carvedilol (Coreg Tab) 12.5 mg QPM PO 06/24/17 21:00 07/24/17 20:59 06/24/17 20:30 12.5 MG Cyclosporine (Neoral Cap) 75 mg BID PO 06/24/17 20:00 07/24/17 20:59 06/25/17 07:54 75 MG Estrogens Conjugated (Premarin Tab) 0.625 mg MoTh@0900 PO 06/26/17 09:00 07/26/17 08:59 Insulin Detemir (Levemir Flexpen/ FlexTouch) 20 units PM SC 06/24/17 21:00 07/24/17 20:59 06/24/17 20:32 20 UNITS Multivitamins (Multivitamin Tab) 1 tab QAM PO 06/25/17 08:00 07/25/17 08:59 06/25/17 07:53 1 TAB Pantoprazole Sodium (Protonix Tab) 40 mg DAILY PO 06/25/17 08:00 07/25/17 08:59 06/25/17 07:54 40 MG Polysaccharide Iron Complex (Niferex-150 w/ Vit C Cap) 150 mg QPM PO 06/24/17 21:00 07/24/17 20:59 06/24/17 20:31 150 MG Pramipexole Dihydrochloride (miraPEX TAB) 0.125 mg HS PO 06/24/17 21:00 07/24/17 20:59 06/24/17 20:31 0.125 MG Prednisone (PredniSONE TAB) 2.5 mg QAM PO 06/25/17 08:00 07/25/17 08:59 06/25/17 07:54 2.5 MG Venlafaxine HCl (effeXOR TAB) 37.5 mg HS PO 06/24/17 21:00 07/24/17 20:59 06/24/17 20:31 37.5 MG Sirolimus (Sirolimus) 1 mg QAM PO 06/25/17 08:00 07/25/17 08:59 06/25/17 07:53 1 MG Insulin Aspart (novoLOG ASPART) SLIDING SCALE G... ACHS SC 06/24/17 11:00 07/24/17 10:59 06/24/17 17:34 2 UNITS Miscellaneous (Iv Fluids Completed) 1 ea PRN PRN N/A 06/24/17 10:30 06/24/18 10:29 Acetaminophen 650 mg/Empty Bag 65 ml @ 260 mls/hr Q6H PRN IV 06/24/17 13:45 07/24/17 13:44 06/24/17 14:03 260 MLS/HR Tramadol HCl (Ultram Tab) 50 mg Q4H PRN PO 06/24/17 15:45 07/24/17 15:44 06/24/17 15:56 50 MG Oxycodone HCl (Roxicodone Immediate Rel Tab) 5 mg Q6H PRN PO 06/24/17 22:15 07/08/17 18:29 06/25/17 10:11 5 MG Ceftriaxone Sodium 2000 mg/ Dextrose 70 ml @ 100 mls/hr DAILY@2300 IV 06/24/17 23:15 07/08/17 23:14 06/24/17 23:26 100 MLS/HR Fidaxomicin (Dificid Tab) 200 mg BID PO 06/25/17 11:00 07/09/17 07:59 Impression (1) Fever (2) Chronic Kidney Disease, Stage Iv (Severe) (3) Diab Raeann Wo Compl, Type Ii Or Unspec Type, Uncontrolled (4) Dehydration (5) Kidney transplant recipient 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 She is chronically immunosuppressed w/ Rapamycin and low dose CSA. She has suffered progressive transplant dysfunction and her baseline creatinine has risen to 3.5 - 4.0. Mrs. Bowling has a complex medical history including recurrent SBO and C. Difficile colitis. She has been admitted due to fever, relative hypotension, dehydration and recurrent emesis. Blood culture is positive for gram negative bacilli Recommendations KIDNEY TRANSPLANT: -- Kidney function remains stable at this time. Electrolyte balance is acceptable. Continue current immunosuppressive regimen DEHYDRATION: -- Will change IVF to 0.45 NS w/ 75 mEq NaHCO3 at 80 cc/hr GI: -- KUB film reviewed today. No ileus or obstruction -- Continue serial abdominal exams ID: -- Blood culture w/ gram negative bacilli. Urine culture is pending -- ID recommendations reviewed. Patient is currently on Ceftriaxone therapy. No dose adjustment needed for renal insufficiency / transplant
[2017-06-25] MEDS: FIDAXOMICIN TAB 200 MG TAB PO SCH ×4 (11:50→20:48)
[2017-06-25] MEDS: SODIUM BICARBONATE 8.4% INJ 75 MEQ in SODIUM CHLORIDE 0.45% 1000ML 1,000 ML IV SCH (11:51)
[2017-06-25] MEDS ORDERED: SUMATRIPTAN SUCCINATE 50 MG TAB PO PRN (12:30)
[2017-06-25] MEDS ORDERED: NURSING VERBAL MED ORDER ONE (13:00)
[2017-06-25] MEDS ORDERED: BUTALBITAL/ACETAMIN/CAFFEINE TAB PO ONE (13:30)
[2017-06-25] MEDS ORDERED: CEFTRIAXONE SOD INJ 500 MG in DEXTROSE 5% 50ML 50 ML IV SCH (14:00)
[2017-06-25 16:00] VITALS: O2SAT 94
[2017-06-25 16:28] VITALS: BP 133/73; PULSE 58; TEMP 36.9; O2SAT 95
--- NOTE | 2017-06-25 16:37 | INFECT. DISEASE CONSULTATION ---
DATE OF CONSULTATION: 06/25/2017 HISTORY OF PRESENT ILLNESS: This is a 57-year-old female who has a history of polycystic kidney disease, who underwent transplant. She has also had issues with recurrent C. diff and recently underwent a fecal transplant in [facility] a few weeks ago. She did have nausea and vomiting prior to admission and denies having any diarrhea at that time. As part of her initial workup, she was found to be febrile with a T-max of 39.3 overnight. She was placed empirically on Rocephin and Flagyl because of her history of C. diff. Her white blood cell count has been normal. She did have a flu swab which was negative. Her creatinine is elevated at 3.5, but she currently is not receiving dialysis. She is being followed by nephrology here. The urinalysis was negative. Because of her fever, blood culture was obtained and is growing gram negative rods. No repeat blood cultures have been obtained. She remains on antibiotics. She currently does not have diarrhea, but is requesting Dificid as a preventative measure. She just recently had fecal transplant. Her chest x-ray is negative. Today, she states she is feeling significantly better than when admitted to the hospital. She denies any additional nausea or vomiting. She has no urinary symptoms. She has no abdominal pain. She has no cough or chest pain. All remaining review of systems are reviewed and are unremarkable. She is asking to be discharged from the hospital. PAST MEDICAL HISTORY: Polycystic kidney disease with nephrectomy and renal transplant, anemia, type 2 diabetes, hypertension, hyperlipidemia, restless leg syndrome, history of CVA, and recurrent C. diff with fecal transplant. FAMILY HISTORY: Noncontributory. SOCIAL HISTORY: Significant for history of tobacco use. She denies any drug or alcohol use. ALLERGIES: SHE HAS MULTIPLE ALLERGIES INCLUDING IODINE, STATINS, HYDROCHLOROTHIAZIDE, SULFA, SUMATRIPTAN, TRIAMTERENE, ATORVASTATIN, DOXYCYCLINE, LEVAQUIN, ADHESIVE TAPES, CIPRO AND MORPHINE. CURRENT MEDICATIONS: Include Premarin, Coreg, multivitamin, Protonix, prednisone, Sirolimus, ceftriaxone, Roxicodone, Levemir, iron, Mirapex, Effexor, cyclosporine, subQ heparin, Flagyl, Ultram, acetaminophen, insulin, Tylenol, Maalox, milk of magnesia, MiraLax and Zofran. PHYSICAL EXAMINATION: VITAL SIGNS: She is currently afebrile, pulse 60, respiratory rate is 18, blood pressure 103/59, oxygen saturation is 96% on room air. GENERAL: She is awake, alert and oriented x3. She is in no acute distress. HEENT: Mucous membranes are moist. Extraocular muscles are intact. HEART: Regular. LUNGS: Clear. ABDOMEN: Soft, nontender, nondistended. There is no edema. SKIN: Without rash. LABORATORY STUDIES: CBC today reveals a white blood cell count of 4.9, hemoglobin 9.8 and platelets of 146. Chemistry panel reveals a sodium of 140, potassium 4.0, chloride 113, bicarbonate 16, BUN 70, creatinine 3.5, glucose is 82. Urinalysis is unremarkable. Flu swab was negative. Blood cultures from the 30 is growing gram negative annie. Urine culture is pending. No repeat blood cultures have been obtained. Chest x-ray was unremarkable. ASSESSMENT AND PLAN: Gram negative septicemia, questionable etiology. She will remain on empiric antibiotics pending the results of blood cultures. Repeat blood culture should be obtained. She will be changed to Dificid upon her request for Clostridium difficile prevention, although she is currently not experiencing diarrhea. Thank you for this consultation. KANNAN
[2017-06-25] MEDS: IRON COMPLEX POLYSACCHARIDE W/VIT C 150 MG CAP PO SCH (20:38)
[2017-06-25] MEDS: VENLAFAXINE HCL 37.5 MG TAB PO SCH (20:38)
[2017-06-25] MEDS: PRAMIPEXOLE DIHYDROCHLORIDE 0.25MG TAB PO SCH (20:39)
[2017-06-25] MEDS: CARVEDILOL 12.5 MG TAB PO SCH (20:39)
[2017-06-25] MEDS: INSULIN DETEMIR FLEXPEN/FLEX TOUCH 100 UNITS/ML 3ML SC SCH (20:44)
[2017-06-25 20:45] VITALS: BP 159/75; PULSE 61
--- NOTE | 2017-06-25 22:47 | Progress Note ---
Subjective Date of Service: Jun 25, 2017. Subjective Mrs. Bowling is here for sepsis with positive blood cultures. Yesterday, she was refusing antibiotics due to her h/o of c. diff and needing a fecal transplant. Patient reports that after receiving news on her bacteriemia results, she was agreeable to take antibiotics last night. Today, she no longer having fever, chillsnausea, vomiting. She does not have any abdominal pain, but states that has not a bowel movement as of yet. Problem List Medical Problems: (1) Abdominal pain Status: Acute (2) Acute on chronic renal failure Status: Acute (3) Dehydration Status: Acute (4) Elevated lipase Status: Acute (5) Fever Status: Acute (6) History of fever Status: Acute (7) History of small bowel obstruction Status: Acute (8) Ileus Status: Acute (9) Immunocompromised Status: Acute (10) Kidney Transplant Status Status: Acute (11) Malaise and fatigue Status: Acute (12) Nausea, vomiting, and diarrhea Status: Acute (13) Prerenal renal failure Status: Acute (14) Renal failure Status: Acute (15) Renal insufficiency Status: Acute (16) Right upper quadrant abdominal pain Status: Acute (17) Right upper quadrant abdominal pain Status: Acute (18) Rigors Status: Acute (19) Sepsis Status: Acute (20) Small bowel obstruction Status: Acute (21) UTI (urinary tract infection) Status: Acute (22) Vomiting Status: Acute Social History Problems: (1) History of renal transplant Status: Acute Review of Systems Constitutional: No fever, No chills Eyes: No worsening of vision Respiratory: No cough Cardiac: No chest pain, No orthopnea Musculoskeletal: No joint pain Female : No dysuria, No urinary frequency Heme: No abnormal bleeding/bruising Endo: No fatigue Skin: No rash, No itch All Other Systems: Reviewed and Negative Medications Current Inpatient Medications Medications (Trade) Dose Ordered Sig/Dominique Route Start Time Stop Time Status Last Admin Dose Admin Acetaminophen (Tylenol Tab) 650 mg Q4H PRN PO 06/24/17 10:00 07/24/17 09:59 06/24/17 22:15 650 MG Al Hydrox/Mg Hydrox/Simethicone (Maalox Max Susp) 15 ml Q4H PRN PO 06/24/17 10:00 07/24/17 09:59 Magnesium Hydroxide (Milk Of Magnesia Susp) 30 ml Q6H PRN PO 06/24/17 10:00 07/24/17 09:59 Polyethylene (Miralax Powder Packet) 17 gm DAILY PRN PO 06/24/17 10:00 07/24/17 09:59 Ondansetron HCl (Zofran Inj) 4 mg Q6H PRN IV 06/24/17 10:00 07/24/17 09:59 06/24/17 12:51 4 MG Heparin Sodium (Porcine) (Heparin Sq 5000 Unit/0.5ml) 5,000 unit Q12H SQ 06/24/17 18:00 07/24/17 17:59 06/25/17 18:04 5,000 UNIT Carvedilol (Coreg Tab) 3.125 mg QAM PO 06/25/17 08:00 07/25/17 08:59 06/25/17 07:53 3.125 MG Carvedilol (Coreg Tab) 12.5 mg QPM PO 06/24/17 21:00 07/24/17 20:59 06/25/17 20:39 12.5 MG Cyclosporine (Neoral Cap) 75 mg BID PO 06/24/17 20:00 07/24/17 20:59 06/25/17 20:38 75 MG Estrogens Conjugated (Premarin Tab) 0.625 mg MoTh@0900 PO 06/26/17 09:00 07/26/17 08:59 Insulin Detemir (Levemir Flexpen/ FlexTouch) 20 units PM SC 06/24/17 21:00 07/24/17 20:59 06/25/17 20:44 20 UNITS Multivitamins (Multivitamin Tab) 1 tab QAM PO 06/25/17 08:00 07/25/17 08:59 06/25/17 07:53 1 TAB Pantoprazole Sodium (Protonix Tab) 40 mg DAILY PO 06/25/17 08:00 07/25/17 08:59 06/25/17 07:54 40 MG Polysaccharide Iron Complex (Niferex-150 w/ Vit C Cap) 150 mg QPM PO 06/24/17 21:00 07/24/17 20:59 06/25/17 20:38 150 MG Pramipexole Dihydrochloride (miraPEX TAB) 0.125 mg HS PO 06/24/17 21:00 07/24/17 20:59 06/25/17 20:39 0.125 MG Prednisone (PredniSONE TAB) 2.5 mg QAM PO 06/25/17 08:00 07/25/17 08:59 06/25/17 07:54 2.5 MG Venlafaxine HCl (effeXOR TAB) 37.5 mg HS PO 06/24/17 21:00 07/24/17 20:59 06/25/17 20:38 37.5 MG Sirolimus (Sirolimus) 1 mg QAM PO 06/25/17 08:00 07/25/17 08:59 06/25/17 07:53 1 MG Insulin Aspart (novoLOG ASPART) SLIDING SCALE G... ACHS SC 06/24/17 11:00 07/24/17 10:59 06/25/17 18:03 1 UNITS Miscellaneous (Iv Fluids Completed) 1 ea PRN PRN N/A 06/24/17 10:30 06/24/18 10:29 Acetaminophen 650 mg/Empty Bag 65 ml @ 260 mls/hr Q6H PRN IV 06/24/17 13:45 07/24/17 13:44 06/24/17 14:03 260 MLS/HR Tramadol HCl (Ultram Tab) 50 mg Q4H PRN PO 06/24/17 15:45 07/24/17 15:44 06/24/17 15:56 50 MG Oxycodone HCl (Roxicodone Immediate Rel Tab) 5 mg Q6H PRN PO 06/24/17 22:15 07/08/17 18:29 06/25/17 10:11 5 MG Ceftriaxone Sodium 2000 mg/ Dextrose 70 ml @ 100 mls/hr DAILY@2300 IV 06/24/17 23:15 07/08/17 23:14 06/24/17 23:26 100 MLS/HR Fidaxomicin (Dificid Tab) 200 mg BID PO 06/25/17 11:00 07/09/17 07:59 06/25/17 20:48 200 MG Sodium Bicarbonate 75 meq/Sodium Chloride 1,075 ml @ 80 mls/hr [id number] IV 06/25/17 11:30 07/25/17 11:29 06/25/17 11:51 80 MLS/HR Fidaxomicin (Dificid Tab) 200 mg BID PO 06/25/17 20:00 07/09/17 19:59 06/25/17 20:39 200 MG Objective Vital Signs Date Time Temp Pulse Resp B/P (MAP) Pulse Ox O2 Delivery O2 Flow Rate FiO2 06/25/17 20:45 61 159/75 (103) 06/25/17 19:15 Room Air 06/25/17 16:28 36.9 58 18 133/73 (93) 95 Room Air 06/25/17 16:00 94 Room Air 06/25/17 08:24 36.4 60 18 103/59 (74) 96 Room Air 06/25/17 08:00 94 Room Air 06/25/17 00:20 Room Air 06/24/17 23:37 36.7 65 18 107/62 (77) 95 Room Air Physical Exam Comments: General Appearance: no apparent distress Head: normocephalic, atraumatic Eyes: PERRL ENT: hearing grossly normal Neck: supple Respiratory/Chest: lungs clear, no respiratory distress, no accessory muscle use Cardiovascular: regular rate, rhythm Abdomen/GI: hyperactive bowel sounds, non tender, soft, no belly button. Back: normal inspection Extremities/Musculoskelatal: no calf tenderness, no pedal edema, Neurologic/Psych: alert, normal mood/affect, oriented x 3 Skin: normal color, warm/dry, no rash Laboratory Results Last 24 Hours Test 06/25/17 05:29 06/25/17 07:45 06/25/17 11:56 06/25/17 16:46 White Blood Count 4.94 K/uL Red Blood Count 3.69 M/uL Hemoglobin 9.8 g/dL Hematocrit 33.1 % Mean Corpuscular Volume 89.7 fL Mean Corpuscular Hemoglobin 26.6 pg Mean Corpuscular Hemoglobin Concent 29.6 g/dl RDW Standard Deviation 63.8 fL RDW Coefficient of Variation 19.5 % Platelet Count 146 K/uL Mean Platelet Volume 9.1 fL Sodium Level 140 mmol/L Potassium Level 4.0 mmol/L Chloride Level 113 mmol/L Carbon Dioxide Level 16 mmol/L Anion Gap 11.0 mmol/L Blood Urea Nitrogen 70 mg/dl Creatinine 3.50 mg/dl Est Creatinine Clear Calc Drug Dose 17.7 ml/min Estimated GFR () 15.8 Estimated GFR (Non- 13.6 BUN/Creatinine Ratio 19.9 Random Glucose 84 mg/dl Calcium Level 8.0 mg/dl Magnesium Level 1.8 mg/dl Bedside Glucose 82 mg/dl 99 mg/dl 133 mg/dl Test 06/25/17 19:59 Bedside Glucose 120 mg/dl Assessment and Plan Patient is a 57 y/o female with a history of polycystic kidney disease s/p bilateral nephrectomy and left renal transplant, anemia of chronic disease, DM II, HTN, HLD, RLS, and h/o CVA who presented to the ED on 06/24 due to nausea, vomiting, decreased appetite and fevers since 06/22. Bacteremia -Patient has improved significantly -Continue antibiotics recommended by ID -Blood cultures positive gram neg. bacilli - IV Zofran PRN for nausea - Tylenol PRN for fever - Influenza screen- negative -final cultures pending -Plan is to titrate to oral antibiotic Hypotension, likely secondary to sepsis -resolved. electorlyes abnormalities improved. Repeat mag and potassium in AM Migraine headaches: Improved after fioricet. Patient reports she only gets headaches while admitting to hospital MARCIO on CKD stage IV, likely secondary to dehydration, and sepsis Polycystic kidney disease s/p bilateral nephrectomy and left renal transplant: Continue Rapamune 1 mg QAM, Prednisone 2.5 mg daily, Cyclosporine 75 mg BID Anemia of chronic disease- STABLE: - Pt takes Procrit PRN - Continue Ferrex T2DM- HgbA1c checked 02/19/17 was 5.8: - Continue Levemir to 20 units SC HS - BSG ACHS and sliding insulin scale HTN: - Hold Norvasc 5 mg PO qd due to hypotension - Continue Carvedilol 6.25 mg 1 tab qam and 2 tabs qpm w/ hold parameters Depression: Continue Effexor 37.5 mg PO qd RLS: Continue Mirapex 0.125 mg PO qhs GERD: Continue Pantoprazole 40 mg PO qd DVT prophylaxis: Heparin SQ BID Code Status: LEVEL I, FULL Dispo: From home- no discharge needs anticipated Patient would like to be discharged tomorrow as she cannot miss more work. Patient will sign out AMA if not discharged. Continued [facility] stay due to: inadequate po fluid intake Discharge planning: home with home health
[2017-06-25] MEDS: CEFTRIAXONE SOD INJ 2,000 MG in DEXTROSE 5% 50ML 50 ML IV SCH (22:58)
[2017-06-25 23:57] VITALS: BP 143/66; PULSE 58; TEMP 36.6; O2SAT 93
[2017-06-26] MEDS: SODIUM BICARBONATE 8.4% INJ 75 MEQ in SODIUM CHLORIDE 0.45% 1000ML 1,000 ML IV SCH (00:27)
[2017-06-26] MEDS: OXYCODONE HCL IR 5 MG TAB (IMMEDIATE RELEASE) PO PRN (02:57)
[2017-06-26 05:51] LABS: HEMATOCRIT 31.5 % (37-47); MEAN CELL VOLUME 88.5 fL (80-100); MEAN CORPUSCULAR HEMOGLOBIN 27.2 pg (25-34); MEAN CORPUSCULAR HGB CONC 30.8 g/dl (32-36); MEAN PLATELET VOLUME 8.9 fL (7.4-10.4); PLATELET COUNT 130 K/uL (130-400); RED BLOOD COUNT 3.56 M/uL (4.2-5.4); WHITE BLOOD COUNT 4.47 K/uL (4.8-10.8)
[2017-06-26] MEDS: HEPARIN SOD 5000 UNIT/0.5 ML CARP SQ SCH (06:04)
[2017-06-26 06:22] LABS: BUN/CREATININE RATIO 19.5 (10-20); CALCIUM 8.2 mg/dl (8.5-10.1); CREATININE 3.4 mg/dl (0.60-1.20); MAGNESIUM 1.7 mg/dl (1.8-2.4); POTASSIUM 3.7 mmol/L (3.5-5.1)
[2017-06-26] MEDS: INSULIN ASPART 100 UNITS/ML 3 ML PEN SC SCH (06:30)
[2017-06-26] MEDS ORDERED: BUTALBITAL/ACETAMIN/CAFFEINE TAB PO PRN (07:45)
[2017-06-26] MEDS ORDERED: BUTALBITAL/ACETAMIN/CAFFEINE TAB PO ONE (07:45)
[2017-06-26] MEDS: PANTOprazole SOD 40 MG TAB PO SCH (08:06)
[2017-06-26] MEDS: SIROLIMUS 0.5 MG TAB PO SCH (08:07)
[2017-06-26] MEDS: MULTIVITAMIN TAB PO SCH (08:07)
[2017-06-26] MEDS: CycloSPORINE (NEORAL) 25 MG CAP PO SCH (08:07)
[2017-06-26] MEDS: CARVEDILOL 3.125 MG TAB PO SCH (08:08)
[2017-06-26 08:10] VITALS: BP 177/74; PULSE 66; TEMP 36.4; O2SAT 97
[2017-06-26] MEDS: FIDAXOMICIN TAB 200 MG TAB PO SCH (08:19)
[2017-06-26] MEDS ORDERED: ESTROGENS, CONJUGATED 0.625 MG TAB PO SCH (09:00)
--- NOTE | 2017-06-26 10:36 | Progress Note ---
Subjective Date of Service: Jun 26, 2017. Subjective Pt evaluation today including: conversation w/ patient, physical exam, chart review, lab review pt anxious for d/c home due to pto and missing work. no f/c overnight. tolerating abx. was placed on dificid yesterday, no diarrhea. initial blood cultures 1/2 sets klebsiella, resistant to keflex only. asking to go home. mild hilario today. no abd pain ,no n/v/d. all remaining ros reviewed and are negative. Problem List Medical Problems: (1) Abdominal pain Status: Acute (2) Acute on chronic renal failure Status: Acute (3) Dehydration Status: Acute (4) Elevated lipase Status: Acute (5) Fever Status: Acute (6) History of fever Status: Acute (7) History of small bowel obstruction Status: Acute (8) Ileus Status: Acute (9) Immunocompromised Status: Acute (10) Kidney Transplant Status Status: Acute (11) Malaise and fatigue Status: Acute (12) Nausea, vomiting, and diarrhea Status: Acute (13) Prerenal renal failure Status: Acute (14) Renal failure Status: Acute (15) Renal insufficiency Status: Acute (16) Right upper quadrant abdominal pain Status: Acute (17) Right upper quadrant abdominal pain Status: Acute (18) Rigors Status: Acute (19) Sepsis Status: Acute (20) Small bowel obstruction Status: Acute (21) UTI (urinary tract infection) Status: Acute (22) Vomiting Status: Acute Social History Problems: (1) History of renal transplant Status: Acute Objective Vital Signs Date Time Temp Pulse Resp B/P (MAP) Pulse Ox O2 Delivery O2 Flow Rate FiO2 06/26/17 08:10 36.4 66 16 177/74 (108) 97 Room Air 06/26/17 00:01 Room Air 06/25/17 23:57 36.6 58 20 143/66 (91) 93 Room Air 06/25/17 20:45 61 159/75 (103) 06/25/17 19:15 Room Air 06/25/17 16:28 36.9 58 18 133/73 (93) 95 Room Air 06/25/17 16:00 94 Room Air Physical Exam General Appearance: WD/WN, no apparent distress Eyes: normal inspection, EOMI Neck: supple Respiratory/Chest: lungs clear, normal breath sounds, no respiratory distress Cardiovascular: regular rate, rhythm, no edema Abdomen: non tender, soft Extremities: non-tender, normal inspection, no pedal edema Neurologic/Psychiatric: alert, oriented x 3 Skin: normal color, warm/dry, no rash Laboratory Results Item Value Date Time Blood Culture - Final Complete 06/24/17 0505 Blood Klebsiella Oxytoca Blood Culture - Preliminary Resulted 06/24/17 0508 Blood NO GROWTH TO DATE. Urine Culture - Final Complete 06/24/17 0900 Urine , Clean Catch THREE TYPES OF ORGANISMS PRESENT, ALL... Last 24 Hours Test 06/25/17 11:56 06/25/17 16:46 06/25/17 19:59 06/26/17 05:34 Bedside Glucose 99 mg/dl 133 mg/dl 120 mg/dl White Blood Count 4.47 K/uL Red Blood Count 3.56 M/uL Hemoglobin 9.7 g/dL Hematocrit 31.5 % Mean Corpuscular Volume 88.5 fL Mean Corpuscular Hemoglobin 27.2 pg Mean Corpuscular Hemoglobin Concent 30.8 g/dl RDW Standard Deviation 62.4 fL RDW Coefficient of Variation 19.2 % Platelet Count 130 K/uL Mean Platelet Volume 8.9 fL Sodium Level 143 mmol/L Potassium Level 3.7 mmol/L Chloride Level 111 mmol/L Carbon Dioxide Level 22 mmol/L Anion Gap 10.0 mmol/L Blood Urea Nitrogen 66 mg/dl Creatinine 3.40 mg/dl Est Creatinine Clear Calc Drug Dose 18.2 ml/min Estimated GFR () 16.4 Estimated GFR (Non- 14.1 BUN/Creatinine Ratio 19.5 Random Glucose 56 mg/dl Calcium Level 8.2 mg/dl Magnesium Level 1.7 mg/dl Test 06/26/17 07:45 Bedside Glucose 54 mg/dl Assessment and Plan (1) Klebsiella sepsis Assessment & Plan: tolerating abx repeat blood culture pending. pt anxious to go home, will change to po abx with cefdinir 300mg po bid to complete 14 days. will also continue with dificid while on abx due to recurrent c diff and recent fecal transplant. no contraindication to d/c. Continued [facility] stay due to: inadequate po fluid intake Discharge planning: home with home health
[2017-06-26] MEDS ORDERED: DFC200 PO (11:03)
[2017-06-26] MEDS ORDERED: CEFD300C3 PO (11:03)
--- NOTE | 2017-06-26 11:06 | Discharge Instructions ---
Discharge Instructions Date of Service Jun 26, 2017. Admission Reason for Admission: Acute Renal Failure; Dehydration; Fever Discharge Discharge Diagnosis / Problem: Klebsiella bacteremia, MARCIO, dehydration Discharge Goals Goal(s): Decrease discomfort, Improve function, Improve disease control Activity Recommendations Activity Limitations: resume your previous activity Lifting Limitations: none Exercise/Sports Limitations: as tolerated May Resume Sexual Activity: when tolerated Shower/Bathe: no limitations Driving or Machine Use: no limitations . Current Hospital Diet Patient's current hospital diet: Diabetes Type 2 Diet, Renal Diet Discharge Diet Recommended Diet: Renal Diet Pending Studies Studies pending at discharge: no Medical Emergencies . Who to Call and When: Medical Emergencies: If at any time you feel your situation is an emergency, please call 911 immediately. . Non-Emergent Contact Non-Emergency issues call your: Primary Care Provider Call Non-Emergent contact if: you have a fever, you have any medication questions . . "Provider Documentation" section prepared by John Langley. . Pipe Line Walker Recommendations Pipe Line Walker Recommendations: Infectious disease: Omnicef 300mg BID x 14 days total (12 more days) VTE Core Measure Inpt VTE Proph given/why not?: Unfractionated heparin SQ [place] Drug Monitoring Program Search Results: no issues identified
[2017-06-26] MEDS ORDERED: FRCT/ PO (11:08)
[2017-06-26] MEDS ORDERED: MAGNESIUM OXIDE 400 MG TAB PO ONE (11:30)
[2017-06-26] MEDS ORDERED: EPOETIN ALFA 40,000 UNITS/ML VIAL SQ ONE (11:30)
--- NOTE | 2017-06-26 11:44 | PROGRESS NOTE ---
DATE: 06/26/2017 RENAL PROGRESS NOTE SUBJECTIVE: Ms. Bowling says that she has a migraine headache, but otherwise seems to be feeling somewhat better. She denies nausea or vomiting. She has had no dysuria and she has had no diarrhea. She denies abdominal pain. She has had no symptoms of uremia and no symptoms of volume overload. She remains on ceftriaxone and is also being covered with Dificid because of her history of recurrent C. difficile colitis. She had a fecal transplant done about 2 weeks ago. OBJECTIVE: GENERAL: On physical exam, the patient appears slightly uncomfortable with a migraine headache, but otherwise at baseline. VITAL SIGNS: She is afebrile (36.4), her blood pressure 177/74, her pulse 66 and regular, respiratory rate 16l; her pulse ox 93-97% on room air. SKIN: Turgor is normal. She has multiple scars from prior surgical procedures including a left lower quadrant scar from her kidney transplant and multiple abdominal scars from prior bowel surgery and nephrectomies. She has no rash or infiltrative skin disease. Skin turgor is normal. She has no palpable adenopathy. HEAD: Normal. EYES: Grossly normal. The ocular fundi were not examined. EARS, NOSE, MOUTH AND THROAT: All unremarkable. Her oral mucous membranes are moist. NECK: Supple. She has no jugular venous distension or carotid bruit. CHEST: Clear to auscultation. CARDIAC: Shows a regular rhythm, S1 and S2 are normal. She has a soft systolic murmur at the upper left sternal border and base. ABDOMEN: Soft, it is not particularly tender. Her renal transplant is palpable in the left lower quadrant. I hear no bruit over the graft today. Bowel sounds are present. EXTREMITIES: Show no cyanosis, clubbing or peripheral edema. Peripheral pulses were palpable. NEUROLOGIC: Unremarkable. PERTINENT LABORATORY WORK: From today shows a white count of 4470, her hemoglobin is down to 9.7, her hematocrit 31.5, and her platelet count 130,000. Clinical chemistries from today show a sodium of 143 mEq/L, potassium 3.7, chloride is 111 mEq/L, and CO2 content 22 mEq/L, her BUN is 66, creatinine 3.40. A random blood sugar vary from 54-56 today and in the past 24 hours from 54-133. Her serum calcium is 8.2, magnesium 1.7. ASSESSMENT AND PLAN: Basically doing well. She is a bit more anemic now that she is hydrated. Her renal function studies are relatively stable but slowly improving with hydration. Her low serum albumin will slow her continued improvement in renal function with hydration. Her blood culture did grow out a Klebsiella oxytoca. It is sensitive to the ceftriaxone that she is on. She is anxious to go home. RECOMMENDATIONS: Procrit 40,000 units today. I have taken the liberty of ordering that. I spoke with Dr. Santa, she feels the patient should be able to be discharged on an oral cephalosporin or Augmentin. Certainly, she can be seen in followup by us within the next week or sooner if necessary. Although I will be out of town and my PA, Ida Herbert will be available and can be in contact with Dr. Santa as well.
[2017-06-26 11:51] VITALS: BP 177/74; PULSE 66; TEMP 36.4; O2SAT 97
--- NOTE | 2017-06-26 13:23 | Medical Student: [facility] ---
Discharge Summary Admission Date: Jun 24, 2017 at 10:06 Discharge Date: Jul 15, 2017 Discharge Disposition: Home Principal Diagnosis: Klebsiella Bacteremia Problems/Secondary Diagnoses: Hypotension, hyponatremia, hypomagnesiumemia, MARCIO on CKD Stage IV, ACD Immunizations: Have You Had Influenza Vaccine: Yes Influenza Vaccine Date: Jul 11, 2012 History of Tetanus Vaccine?: Yes History of Pneumococcal: Yes History of Hepatitis B Vaccine: Yes Hepatitis Immunization Date: February 09, 2008 Medications: Amlodipine Besylate (Amlodipine Besylate), 1 TAB PO DAILY Azelastine HCl (Azelastine HCl), 1 SPRAYS АНДРЕЙ DAILY Biotin (Biotin 5000), 5,000 MCG PO QAM Calcium W/ Vitamins D & K (Calcium + D + K), 1 TABLET PO MWF Carvedilol (Carvedilol), 3.125 MG PO QAM Carvedilol (Carvedilol), 12.5 MG PO QPM Cyclosporine (Neoral), 25 MG PO BID Cyclosporine Modified (For Rex (Cyclosporine Modified), 50 MG PO BID Estrogens, Conjugated (Premarin), 0.625 MG PO 2XWK Insulin Detemir (Levemir Flextouch), 20 UNITS SC PM Krill Oil (Krill Oil Huron-3), 2 TAB PO DAILY Multivitamin (Multivitamin), 1 TAB PO QAM Ondansetron (Ondansetron HCl), 1 TAB PO BID Oxycodone HCl (Oxycodone HCl), 1 TAB PO Q6H Pantoprazole (Pantoprazole Sodium), 1 TAB PO DAILY Polysaccharide Iron Complex (Ferrex 150), 150 MG PO QPM Pramipexole (Mirapex), 0.125 MG PO HS Prednisone (Prednisone), 2.5 MG PO QAM Sirolimus (Rapamune), 1 MG PO QAM Venlafaxine Hcl (Effexor), 1 TAB PO HS Procrit New Medications: -Fiorcet PRN -Cefdinir 300 mg BID -Difficid - 200mg BID Discharge Exam Review of Systems: Constitutional: No fever, No chills, No sweats Respiratory: No cough, No sputum, No shortness of breath Cardiovascular: No chest pain, No palpitations Abdomen: No pain, No nausea, No vomiting, No diarrhea, No constipation Musculoskeletal: No joint pain, No calf pain Genitourinary - Female: No dysuria, No urinary frequency Physical Exam: General Appearance: WD/WN, no apparent distress Eyes: PERRL, EOMI ENT: hearing grossly normal, pharynx normal Respiratory/Chest: lungs clear, normal breath sounds, no respiratory distress Cardiovascular: regular rate, rhythm, no edema, no murmur, normal peripheral pulses Abdomen / GI: non tender, soft, no organomegaly Extremities: normal inspection, + pedal edema (more signficant on the left than on the right. accompany discoloration c/w venous stasis. ) Neurologic/Psychiatric: alert, normal mood/affect, oriented x 3 Hospital Course Ms. Bowling is a 57 yo female with PMH of PKD s/p bilateral nephrectomy and left renal transplant, T2DM, HTN, HLD, who was admitted on 06/24/2017, for nausea, vomiting and fevers of Tmax 39.3. Her initial UA was suspicious for UTI and her blood cultures eventually grew Klebsiella oxytoca,which was treated with Rocephin and Flagyl. She noticed a significant improvement in her symptoms and was afebrile on the second day of admission. Upon discharge she was given Cefdinir 300 mg BID to continue for an additional 12 days. Total Time Spent: Greater than 30 minutes This includes examination of the patient, discharge planning, medication reconciliation, and communication with other providers. Discharge Instructions Please refer to the electronic Patient Visit Report (Discharge Instructions) for additional information. Follow-Up The following medications have been sent to your pharmacy: Fiorcet - take PRN for migraines/headaches. Cefdinir 300 mg - twice a day. Antibiotic. Difficid 200 mg BID - antibiotic for c. diff. Follow up with Dr. Roy in the next week.
--- NOTE | 2017-06-26 13:45 | Discharge Summary ---
Discharge Summary Date of Service Jun 26, 2017. Discharge Summary Admission Date: Jun 24, 2017 at 10:06 Discharge Date: Jun 26, 2017 Discharge Disposition: Home Principal Diagnosis: Klebsiella bacteremia Problems/Secondary Diagnoses: Renal transplant Headache, migraine h/o C diff Immunizations: Have You Had Influenza Vaccine: Yes Influenza Vaccine Date: Jul 11, 2012 History of Tetanus Vaccine?: Yes History of Pneumococcal: Yes History of Hepatitis B Vaccine: Yes Hepatitis Immunization Date: February 09, 2008 Procedures: none Consultations: Infectious disease Nephrology Medication Reconciliation New Medications: Acetamin/Butalbital/Caffeine (Fioricet) 1 Ea Tab 1 TAB PO Q4 PRN for Headache, #20 TAB Cefdinir (Cefdinir) 300 Mg Cap 300 MG PO BID for 12 Days, #24 CAP 0 Refills Fidaxomicin (Dificid) 200 Mg Tab 200 MG PO BID for 12 Days, #24 TABS 0 Refills Continued Medications: Amlodipine Besylate (Amlodipine Besylate) 5 Mg Tab 1 TAB PO DAILY, #30 Azelastine HCl (Azelastine HCl) 0.15 % Spr 1 SPRAYS АНДРЕЙ DAILY Biotin (Biotin 5000) 5 Mg Cap 5000 MCG PO QAM Calcium W/ Vitamins D & K (Calcium + D + K) 1 Tab Tab 1 TABLET PO MWF Carvedilol (Carvedilol) 6.25 Mg Tab 3.125 MG PO QAM, #180 Carvedilol (Carvedilol) 6.25 Mg Tab 12.5 MG PO QPM Cyclosporine (Neoral) 25 Mg Cap 25 MG PO BID Cyclosporine Modified (For Rex (Cyclosporine Modified) 50 Mg Cap 50 MG PO BID Epoetin Kvng (Procrit) 40,000 Units Inj 1 DOSE INJ for ANEMIA, #4 Estrogens, Conjugated (Premarin) 0.625 Mg Tab 0.625 MG PO 2XWK, TAB monday and Insulin Detemir (Levemir Flextouch) 100 Unit/Ml Inj 20 UNITS SC PM Krill Oil (Krill Oil Hemet-3) 1 Cap Cap 2 TAB PO DAILY Multivitamin (Multivitamin) Tab 1 TAB PO QAM Ondansetron (Ondansetron HCl) 4 Mg Tab 1 TAB PO BID for Nausea, #25 Oxycodone HCl (Oxycodone HCl) 5 Mg Tab 1 TAB PO Q6H for Pain, #30 Pantoprazole (Pantoprazole Sodium) 40 Mg Tab 1 TAB PO DAILY, #90 Polysaccharide Iron Complex (Ferrex 150) 150 Mg Cap 150 MG PO QPM Pramipexole (Mirapex) 0.125 Mg Tab 0.125 MG PO HS, TAB Prednisone (Prednisone) 2.5 Mg Tab 2.5 MG PO QAM Sirolimus (Rapamune) 1 Mg Tab 1 MG PO QAM Venlafaxine Hcl (Effexor) 37.5 Mg Tab 1 TAB PO HS, #90 Discharge Exam Patient feeling quite well, wants to go home. Patient had a migraine earlier in the morning, relieved with Fioricet. Discussed with Dr. Santa, d/c on Omnicef for a total of 14 days, okay to continue Dificid while on Omnicef. Review of Systems: Constitutional: No fever, No chills, No sweats, No weight loss, No weakness , No fatigue, No problem reported Eyes: No worsening of vision, No eye pain, No redness, No discharge, No diplopia, No problem reported ENT: No hearing loss, No unusual epistaxis, No nasal symptoms, No sore throat, No tinnitus, No dental problems, No trouble swallowing, No problem reported Respiratory: No cough, No sputum, No wheezing, No shortness of breath, No dyspnea on exertion, No dyspnea at rest, No hemoptysis, No problem reported Cardiovascular: No chest pain, No orthopnea, No PND, No edema, No claudication, No palpitations, No problem reported Abdomen: No pain, No nausea, No vomiting, No diarrhea, No constipation, No GI bleeding, No problem reported Musculoskeletal: No joint pain, No muscle pain, No swelling, No calf pain, No problem reported Genitourinary - Female: No dysuria, No urinary frequency, No urinary urgency , No urinary incontinence, No urinary retention, No hematuria Neurologic: No memory loss, No paralysis, No weakness, No numbness/tingling , No vertigo, No balance problems, No problem reported Psychiatric: No depression symptoms, No anhedonism, No anxiety, No insomnia , No substance abuse, No problem reported Endocrine: No fatigue, No excessive thirst, No excessive urination, No problem reported Hematologic / Lymphatic: No abnormal bleeding/bruising, No clotting problems , No swollen lymph nodes, No night sweats, No problem reported Integumentary: No rash, No itch, No new/changing skin lesions, No color change, No bleeding, No problem reported Physical Exam: General Appearance: WD/WN, no apparent distress Eyes: normal inspection, EOMI, sclerae normal ENT: normal ENT inspection, hearing grossly normal, pharynx normal Neck: supple, no adenopathy, no JVD, trachea midline Respiratory/Chest: chest non-tender, lungs clear, normal breath sounds, no respiratory distress, no accessory muscle use Cardiovascular: regular rate, rhythm, no edema, no gallop, no JVD, no murmur , normal peripheral pulses Abdomen / GI: normal bowel sounds, non tender, soft, no organomegaly Extremities: normal inspection, no calf tenderness, normal capillary refill , no pedal edema, normal range of motion, pelvis stable Neurologic/Psychiatric: account developer II-XII nml as tested, no motor/sensory deficits , alert, normal mood/affect, normal reflexes, oriented x 3 Skin: normal color, warm/dry, no rash Hospital Course Patient is a 57 y/o female with a history of polycystic kidney disease s/p bilateral nephrectomy and left renal transplant, anemia of chronic disease, DM II, HTN, HLD, RLS, and h/o CVA who presented to the ED on 06/24 due to nausea, vomiting, decreased appetite and fevers since 06/22. Bacteremia, Klebsiella, perez sensitive - unclear source as urine shows no growth - d/w Dr. Santa today, recommends 12 more days of Omnicef for 14 day total course H/o C diff: no diarrhea, patient insists on taking Dificid while on antibiotics she is s/p fecal transplant and needs to be free of C diff if she will be considered for renal transplant Hypotension, likely secondary to sepsis -resolved. Hypomagnesium: 1.7 today, give Mag Oxide 400mg PO x 1 Migraine headaches: resolved with fioricet. Patient reports she only gets headaches while admitting to hospital gave script for Fioricet if needed MARCIO on CKD stage IV, likely secondary to dehydration, and sepsis resolved with IV fluids, follow up with Dr. Roy Polycystic kidney disease s/p bilateral nephrectomy and left renal transplant: Continue Rapamune 1 mg QAM, Prednisone 2.5 mg daily, Cyclosporine 75 mg BID Anemia of chronic disease- STABLE: - Pt takes Procrit PRN - Continue Ferrex T2DM- HgbA1c checked 02/19/17 was 5.8: - Continue Levemir to 20 units SC HS - BSG ACHS and sliding insulin scale HTN: - Hold Norvasc 5 mg PO qd due to hypotension - Continue Carvedilol 6.25 mg 1 tab qam and 2 tabs qpm w/ hold parameters Depression: Continue Effexor 37.5 mg PO qd RLS: Continue Mirapex 0.125 mg PO qhs GERD: Continue Pantoprazole 40 mg PO qd DVT prophylaxis: Heparin SQ BID Code Status: LEVEL I, FULL d/c to home Total Time Spent: Greater than 30 minutes This includes examination of the patient, discharge planning, medication reconciliation, and communication with other providers. Discharge Instructions Please refer to the electronic Patient Visit Report (Discharge Instructions) for additional information. Follow-Up Dr. Roy one week Dr. Santa 2-3 weeks Additional Copies To Eugene Roy M.D.; Jennifer. Arina, D.Gordo.
== END 2017-06-26 12:58 | disposition home or self-care (01) ==
LOC: C.EDB 04:34 → C.4E 10:06 → ENRESERV 10:19
PROVIDERS: ADMIT Internal Medicine Sports Medicine; ATTEND Internal Medicine
DX: R78.81 Bacteremia (principal); A49.8 Other bacterial infections of unspecified site; Z94.0 Kidney transplant status; G43.909 Migraine, unspecified, not intractable, without status migrainosus; Q61.3 Polycystic kidney, unspecified; Z90.5 Acquired absence of kidney; E11.9 Type 2 diabetes mellitus without complications; I10 Essential (primary) hypertension; E78.5 Hyperlipidemia, unspecified; Z86.73 Personal history of transient ischemic attack (TIA), and cerebral infarction without residual deficits; Z87.891 Personal history of nicotine dependence; Z79.4 Long term (current) use of insulin; Z90.49 Acquired absence of other specified parts of digestive tract; Z98.890 Other specified postprocedural states; Z98.82 Breast implant status; Z88.5 Allergy status to narcotic agent; Z88.1 Allergy status to other antibiotic agents; Z88.2 Allergy status to sulfonamides; Z80.3 Family history of malignant neoplasm of breast; Z82.49 Family history of ischemic heart disease and other diseases of the circulatory system; Z83.3 Family history of diabetes mellitus; Z84.1 Family history of disorders of kidney and ureter

== ENCOUNTER → 2017-07-14 | Outpatient (CLI) | payer BC ==
[~2017-07-14] MED LIST changes: +CEFD300C3 PO; +CYCL1CAP22 PO; +DFC200 PO; +FRCT/ PO; +NRL25 PO; -[UNRECOGNIZED DRUG - CODE] PO
[2017-07-14 16:41] LABS: BLOOD UREA NITROGEN 70 mg/dl (7-18); BUN/CREATININE RATIO 22.4 (10-20); CALCIUM 9.4 mg/dl (8.5-10.1); CARBON DIOXIDE 20 mmol/L (21-32); CHLORIDE 106 mmol/L (98-107); CREATININE 3.12 mg/dl (0.60-1.20); GLUCOSE 85 mg/dl (70-99); POTASSIUM 4.5 mmol/L (3.5-5.1); SODIUM 136 mmol/L (136-145)
[2017-07-14 16:42] LABS: PHOSPHORUS 3.8 mg/dl (2.5-4.9)
[2017-07-14 17:08] LABS: HEMATOCRIT 41.2 % (37-47)
== END | disposition home or self-care (01) ==
LOC: C.LABBFT 12:58
PROVIDERS: ATTEND Internal Medicine
DX: D64.9 Anemia, unspecified (principal); N28.9 Disorder of kidney and ureter, unspecified; Q61.3 Polycystic kidney, unspecified

== ENCOUNTER → 2017-10-14 | Outpatient (CLI) | payer BC ==
[~2017-10-14] MED LIST changes: +PANT40TA2 PO; -PRT/40 PO
[2017-10-14 12:57] LABS: HEMATOCRIT 31.9 % (37-47); HEMOGLOBIN 10.6 g/dL (12.0-16.0)
--- NOTE | 2017-10-14 13:04 | DIAGNOSTIC IMAGING REPORT ---
LEFT FOOT 3 VIEWS CLINICAL HISTORY: Left foot pain. FINDINGS: 3 views of the left foot are compared to study dated 01/28/2014. The skeletal structures are osteopenic. No fracture is seen. Degenerative spurring is seen at the base of the first metatarsal. The joint spaces of the foot are maintained. The overlying soft tissues are within normal limits. IMPRESSION: No acute bony abnormality is seen in the left foot. Electronically signed by: Bradley Rivas M.D. 10/14/2017 1:02 PM Dictated Date/Time: 10/14/2017 1:01 PM
[2017-10-14 13:22] LABS: ALBUMIN 3.3 gm/dl (3.4-5.0); BLOOD UREA NITROGEN 107 mg/dl (7-18); CALCIUM 9.5 mg/dl (8.5-10.1); CARBON DIOXIDE 26 mmol/L (21-32); CREATININE 3.87 mg/dl (0.60-1.20); GLUCOSE 171 mg/dl (70-99); PHOSPHORUS 3.3 mg/dl (2.5-4.9); POTASSIUM 4.1 mmol/L (3.5-5.1); SODIUM 132 mmol/L (136-145)
== END | disposition home or self-care (01) ==
LOC: C.RAD 12:27
PROVIDERS: ATTEND Internal Medicine
DX: D64.9 Anemia, unspecified (principal); N28.9 Disorder of kidney and ureter, unspecified; Q61.3 Polycystic kidney, unspecified; M79.672 Pain in left foot

== ENCOUNTER → 2017-10-20 | Outpatient (CLI) | payer BC ==
--- NOTE | 2017-10-20 12:13 | DIAGNOSTIC IMAGING REPORT ---
MRCP CLINICAL HISTORY: Pancreatitis. COMPARISON STUDY: Abdominal CT dated 04/16/2017. TECHNIQUE: Abdominal MRCP is performed utilizing various T2-weighted sequences in the axial and coronal planes. IV contrast was not administered for this examination. 3-D reformats are created and assessed. FINDINGS: The gallbladder is surgically absent. There is moderate intrahepatic biliary ductal dilatation. The common bile duct is markedly dilated, measuring up to 1.9 cm. A 1.7 cm filling defect is suggested at the ampulla, likely represent choledocholithiasis. The pancreatic duct is normal in caliber. There are numerous T2 hyperintense foci identified along the course of the pancreatic duct measuring up to 6 mm. 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 The liver is enlarged and infiltrated by numerous cysts. The kidneys are surgically absent. These findings likely correspond to autosomal dominant polycystic kidney disease. The spleen and adrenal glands are grossly unremarkable. The pancreas is atrophic. No abdominal ascites is identified. There is no upper abdominal lymphadenopathy. No bowel obstruction is seen. The heart is top normal in size and there is a small pericardial effusion. Trace pleural effusions are noted. IMPRESSION: 1. The gallbladder is surgically absent. 2. There is marked intra and extrahepatic biliary ductal dilatation. 3. There is a 1.7 cm filling defect in the distal common duct, likely represent choledocholithiasis. Mass is considered less likely but is the top differential consideration. 4. The pancreatic duct is normal in caliber. 5. Numerous subcentimeter sidebranch IPMNs are suggested in the pancreas. 6. The liver is enlarged and infiltrated by numerous cysts. The kidneys are surgically absent, and these findings suggest a history of autosomal dominant polycystic kidney disease. Clinical correlation will be required. Dictated: 10/20/2017 11:45 AM Transcribed: 10/20/2017 12:13 PM [facility] Electronically signed by: Bradley Rivas M.D. 10/20/2017 12:15 PM Dictated Date/Time: 10/20/2017 11:45 AM
== END | disposition home or self-care (01) ==
LOC: C.MRI 11:05
PROVIDERS: ATTEND Internal Medicine Gastroenterology
DX: K85.80 Other acute pancreatitis without necrosis or infection (principal); K76.89 Other specified diseases of liver; Z90.49 Acquired absence of other specified parts of digestive tract

== ENCOUNTER → 2017-10-25 | Outpatient (CLI) | payer BC ==
--- NOTE | 2017-10-25 13:07 | DIAGNOSTIC IMAGING REPORT ---
GASTRIC EMPTYING CLINICAL HISTORY: 57 years-old Female presenting with K21.9 Acid reflux [id number]. TECHNIQUE: Following the oral administration of 1.1 mCi of technetium 99m sulfur colloid in egg sandwich and 8 ounces of water, static abdominal images are obtained anteriorly and posteriorly at 0 minutes, 1 hour, 2 hour, and 4 hour time intervals. Gastric emptying was calculated utilizing the geometric mean method. COMPARISON: MRCP from 10/20/[address] abdomen and pelvis from 04/16/2017. FINDINGS: There is approximately 47% activity remaining at the 1 hour time interval, 21% remaining at the 2 hour time interval (normal is less than 60%), and 2% activity remaining at the 4 hour time interval (normal is less than 10%). IMPRESSION: Findings are consistent with normal gastric emptying. Electronically signed by: Homar Denis M.D. 10/25/2017 1:06 PM Dictated Date/Time: 10/25/2017 1:05 PM
== END | disposition home or self-care (01) ==
LOC: C.NUCL 08:36
PROVIDERS: ATTEND Internal Medicine
DX: K21.9 Gastro-esophageal reflux disease without esophagitis (principal)

== ENCOUNTER → 2017-10-26 | Outpatient (CLI) | payer BC | END | disposition home or self-care (01) | LOC: C.LABBFT 11:01 | PROVIDERS: ATTEND Internal Medicine | DX: E11.9 Type 2 diabetes mellitus without complications (principal) ==

== ENCOUNTER 2017-11-20 19:17 | Emergency (ER) | payer BC ==
[~2017-11-20] VITALS: Ht 172.7 cm; Wt 65.6 kg
[~2017-11-20 19:17] MED LIST changes: +PRAM0.1212 PO; -PRAM0.129 PO
[2017-11-20 19:40] VITALS: Ht 172.7 cm; Wt 65.6 kg
[2017-11-20] MEDS ORDERED: ACETAMINOPHEN 325 MG TAB PO STA (19:45)
[2017-11-20] MEDS ORDERED: KETOROLAC TROMETHAMINE 30 MG/ML VIAL IV STA (20:08)
[2017-11-20] MEDS ORDERED: SODIUM CHLORIDE 0.9% 1000ML 1,000 ML IV STA (20:08)
[2017-11-20] MEDS ORDERED: ONDANSETRON INJ 2 MG/ML 2 ML VIAL IV STA (20:08)
[2017-11-20 20:33] LABS: INFLUENZA B ANTIGEN Neg for Influ B (NEG)
[2017-11-20 20:45] LABS: BASO % 0.1 %; BASO ABS # 0.01 K/uL (0-0.2); EOS % 0.3 %; EOS ABS # 0.03 K/uL (0-0.5); HEMOGLOBIN 12.4 g/dL (12.0-16.0); IG# 0.04 K/uL (0.00-0.02); LYMPH % 8.2 %; MEAN CELL VOLUME 87.8 fL (80-100); MEAN CORPUSCULAR HEMOGLOBIN 27.9 pg (25-34); MEAN CORPUSCULAR HGB CONC 31.8 g/dl (32-36); MONO % 12.4 %; MONO ABS # 1.21 K/uL (0.11-0.59); NEUT % 78.6 %; NEUT ABS # 7.65 K/uL (1.4-6.5); PLATELET COUNT 206 K/uL (130-400); RED CELL DISTRIBUTION WIDTH CV 17.1 % (11.5-14.5); RED CELL DISTRIBUTION WIDTH SD 55.7 fL (36.4-46.3); WHITE BLOOD COUNT 9.74 K/uL (4.8-10.8)
[2017-11-20 20:55] LABS: PTT PATIENT 29.7 SECONDS (21.0-31.0)
[2017-11-20 21:05] LABS: ALBUMIN 3.4 gm/dl (3.4-5.0); CALCIUM 9.4 mg/dl (8.5-10.1); CREATININE 3.74 mg/dl (0.60-1.20); POTASSIUM 4.3 mmol/L (3.5-5.1)
[2017-11-20 21:08] LABS: TOTAL PROTEIN 8.1 gm/dl (6.4-8.2)
--- NOTE | 2017-11-20 21:20 | DIAGNOSTIC IMAGING REPORT ---
CHEST 2 VIEWS ROUTINE HISTORY: Fever. r/o pneumonia COMPARISON: Chest 06/24/2017. FINDINGS: The lungs are clear. Cardiac silhouette is normal in size. No pleural effusions. No pneumothorax. Calcified breast implants are again noted. IMPRESSION: No significant change compared to the prior study. No acute process. Electronically signed by: Caden Garibay M.D. 11/20/2017 9:19 PM Dictated Date/Time: 11/20/2017 9:18 PM
--- NOTE | 2017-11-20 21:54 | DIAGNOSTIC IMAGING REPORT ---
ABDOMINAL ULTRASOUND, RIGHT UPPER QUADRANT HISTORY: Fever. Right upper quadrant tenderness. Jaundice.. COMPARISON: MRCP 10/20/2017. FINDINGS: Pancreas: The pancreatic head is within normal limits. The body and tail the pancreas are obscured by overlying bowel gas. Liver: Innumerable scattered cysts are again noted consistent with autosomal dominant polycystic kidney disease. No hepatic masses. The liver is enlarged measuring 19 cm in length. Slightly nodular contour to the liver. Gallbladder: The gallbladder is surgically absent. CBD: Not well visualized but appears to measure 5 mm in diameter. Right kidney: Surgically absent. IMPRESSION: 1. Prior cholecystectomy. 2. Innumerable hepatic cysts are again noted consistent with autosomal dominant polycystic kidney disease. 3. The right kidney is also surgically absent. 4. Slightly nodular contour to the mildly enlarged liver suggestive of cirrhosis. 5. The visualized common bile duct is normal in caliber. Electronically signed by: Caden Garibay M.D. 11/20/2017 9:52 PM Dictated Date/Time: 11/20/2017 9:49 PM
[2017-11-20] MEDS ORDERED: FRCT/ PO (23:19)
[2017-11-20] MEDS ORDERED: ONDA4TAB10 SL (23:38)
--- NOTE | 2017-11-21 00:08 | EMERGENCY ROOM VISIT NOTE ---
History Report prepared by Mason: Ana Rosa Damon Under the Supervision of: Dr. Jl Sotelo M.D. First contact with patient: 19:46 Chief Complaint: FEVER Stated Complaint: TRANSPLANT PATIENT W/ FEVER,ETC History of Present Illness The patient is a 57 year old female who presents to the Emergency Room with complaints of persistent fever starting 4 days ago. Her fever has not been responding to Tylenol. She has also had body aches, nausea, vomiting, and diarrhea. She has a history of diabetes and kidney transplant. She denies any pain with urination or hematuria. She did have a UTI 2 weeks ago which was treated. She has had a cough. She denies any abdominal pain, hemoptysis, or chest pain. She has a headache. She notes that she gets headaches when she has not been eating, and this feels like her usual migraine. Her states she appears more yellow than usual. She has a history of common bile duct stone which is scheduled to be removed. Source of History: patient, spouse/significant other Onset: 4 days ago Position: other (global) Quality: other (fever) Timing: other (persistent) Associated Symptoms: + headache, + cough, + nausea, + vomiting, + diarrhea, No chest pain, No abdominal pain, No urinary symptoms Note: Pt reports body aches. Review of Systems See HPI for pertinent positives and negatives. A total of ten systems were reviewed and were otherwise negative. Past Medical & Surgical Medical Problems: (1) Abdominal pain (2) Abdominal pain (3) Acute renal failure (4) Acute renal insufficiency (5) Asthma, Unspecified (6) Chronic Kidney Disease, Stage Iv (Severe) (7) Clostridium difficile diarrhea (8) Diab Raeann Wo Compl, Type Ii Or Unspec Type, Uncontrolled (9) Fever (10) HTN (hypertension) (11) Hyperlipidemia Nec/Nos (12) Immunosuppressed status (13) Klebsiella sepsis (14) Pancreatitis (15) Polycystic Kidney, Unspecified Type (16) SBO (small bowel obstruction) (17) SIRS (systemic inflammatory response syndrome) Surgical Problems: (1) Kidney transplant recipient (2) Kidney Transplant Status Family History Breast cancer Diabetes mellitus Heart disease Kidney disease Kidney stones Social History Smoking Status: Former Smoker Alcohol Use: none Drug Use: none Marital Status: Housing Status: lives with family Occupation Status: employed Current/Historical Medications Scheduled Azelastine HCl (Azelastine HCl), 1 SPRAYS АНДРЕЙ DAILY Biotin (Biotin 5000), 5,000 MCG PO QAM Calcium W/ Vitamins D & K (Calcium + D + K), 1 TABLET PO MWF Carvedilol (Carvedilol), 3.125 MG PO QAM Carvedilol (Carvedilol), 12.5 MG PO QPM Cyclosporine (Neoral), 25 MG PO BID Cyclosporine Modified (For Rex (Cyclosporine Modified), 50 MG PO BID Estrogens, Conjugated (Premarin), 0.625 MG PO 2XWK Insulin Detemir (Levemir Flextouch), 8 UNITS SC PM Multivitamin (Multivitamin), 1 TAB PO QAM Ondasetron Odt (Zofran Odt), 4 MG SL TID Pantoprazole (Pantoprazole Sodium), 1 TAB PO DAILY Polysaccharide Iron Complex (Ferrex 150), 150 MG PO QPM Pramipexole (Mirapex), 0.125 MG PO HS Prednisone (Prednisone), 2.5 MG PO QAM Sirolimus (Rapamune), 1 MG PO QAM Venlafaxine Hcl (Effexor), 1 TAB PO HS Scheduled PRN Acetamin/Butalbital/Caffeine (Fioricet), 1 TAB PO Q4 PRN for Headache Epoetin Kvng (Procrit), 1 DOSE INJ WK PRN for ANEMIA Ondansetron (Ondansetron HCl), 1 TAB PO BID PRN for Nausea or Vomiting Allergies Coded Allergies: Iodinated Diagnostic Agents (Verified Allergy, Severe, Hx Kidney Transplant, 11/20/17) Statins (Verified Allergy, Severe, "PANCREATITIS", 11/20/17) Sumatriptan (Verified Allergy, Severe, seizure, 11/20/17) Hydrochlorothiazide (Verified Allergy, Mild, 11/20/17) Sulfa Antibiotics (Verified Allergy, Mild, ., 11/20/17) Triamterene (Verified Allergy, Mild, 11/20/17) Atorvastatin (Verified Allergy, Unknown, ?, 11/20/17) Doxycycline (Verified Allergy, Unknown, UNKNOWN, 11/20/17) Levofloxacin (Verified Allergy, Unknown, joint pain, 11/20/17) Adhesives (Verified Adverse Reaction, Unknown, SKIN TEAR, 11/20/17) Ciprofloxacin (Verified Adverse Reaction, Unknown, FATIGUE, 11/20/17) Morphine (Verified Adverse Reaction, Unknown, INEFFECTIVE, 11/20/17) Physical Exam Vital Signs Date Time Temp Pulse Resp B/P (MAP) Pulse Ox O2 Delivery O2 Flow Rate FiO2 11/21/17 00:06 107/59 11/21/17 00:01 125/54 11/20/17 23:59 71 94 11/20/17 23:44 70 94 11/20/17 23:31 103/53 11/20/17 23:29 70 96 11/20/17 23:29 37.1 11/20/17 23:14 73 96 11/20/17 23:09 72 18 105/55 97 Room Air 11/20/17 21:57 38.3 91 20 113/65 96 Room Air 11/20/17 19:40 39.4 107 20 145/84 97 Room Air Physical Exam Physical Exam GENERAL: She is oriented to person, place, and time. She appears well- developed and well-nourished. She does not appear distressed. ____ HENT: Exam performed. Head: Normocephalic and atraumatic. Right Ear: External ear normal. No mastoid tenderness. Left Ear: External ear normal. No mastoid tenderness. Mouth/Throat: The oropharynx is clear and moist. No trismus in the jaw. No dental abscesses or uvula swelling. No oropharyngeal exudate or tonsillar abscesses. ____ EYES: EOM are normal. Pupils are equal, round, and reactive to light. Right eye exhibits no discharge. Left eye exhibits no discharge. Scleral icterus. ____ NECK: Normal range of motion. Neck supple. No JVD present. No spinous process tenderness present. No carotid bruit present. No rigidity. No tracheal deviation and normal range of motion present. No Brudzinski's sign and no Kernig 's sign noted. ____ CV: Normal rate, regular rhythm, normal heart sounds and intact distal pulses. There is no peripheral edema. Palpable radial pulses bue. ____ PULM/CHEST: Effort normal and breath sounds normal. No respiratory distress. No stridor. She has no wheezes. She has no rales. Chest Wall: She exhibits no tenderness. ____ ABD: The abdomen is soft. Bowel sounds are normal. She has no distension. No mass is present. There is pain on palpation of the RUQ. There is no rebound, no guarding, no Iqbal's sign and no tenderness at McBurney's point. Rovsig negative. There are multiple scars on the abdomen. MUSC/SKEL: Normal range of motion. There is no peripheral edema, tenderness or deformity. LYMPH: No cervical adenopathy. ____ NEURO: She is alert and oriented to person, place, and time. She has normal strength. No cranial nerve deficit or sensory deficit. Coordination and gait normal. GCS eye subscore is 4. GCS verbal subscore is 5. GCS motor subscore is 6. Cerebellar tests wnl. ____ SKIN: Skin is jaundiced. Skin is warm and dry. She is not diaphoretic. ____ PSYCH: She has a normal mood and affect. Her behavior is normal. Judgment and thought content normal. ____ Medical Decision & Procedures ER Provider Diagnostic Interpretation: Radiology results as stated below per my review and radiologist interpretation: CHEST 2 VIEWS ROUTINE HISTORY: Fever. r/o pneumonia COMPARISON: Chest 06/24/2017. FINDINGS: The lungs are clear. Cardiac silhouette is normal in size. No pleural effusions. No pneumothorax. Calcified breast implants are again noted. IMPRESSION: No significant change compared to the prior study. No acute process. Electronically signed by: Caden Garibay M.D. 11/20/2017 9:19 PM Dictated Date/Time: 11/20/2017 9:18 PM ABDOMINAL ULTRASOUND, RIGHT UPPER QUADRANT HISTORY: Fever. Right upper quadrant tenderness. Jaundice.. COMPARISON: MRCP 10/20/2017. FINDINGS: Pancreas: The pancreatic head is within normal limits. The body and tail the pancreas are obscured by overlying bowel gas. Liver: Innumerable scattered cysts are again noted consistent with autosomal dominant polycystic kidney disease. No hepatic masses. The liver is enlarged measuring 19 cm in length. Slightly nodular contour to the liver. Gallbladder: The gallbladder is surgically absent. CBD: Not well visualized but appears to measure 5 mm in diameter. Right kidney: Surgically absent. IMPRESSION: 1. Prior cholecystectomy. 2. Innumerable hepatic cysts are again noted consistent with autosomal dominant polycystic kidney disease. 3. The right kidney is also surgically absent. 4. Slightly nodular contour to the mildly enlarged liver suggestive of cirrhosis. 5. The visualized common bile duct is normal in caliber. Electronically signed by: Caden Garibay M.D. 11/20/2017 9:52 PM Dictated Date/Time: 11/20/2017 9:49 PM Laboratory Results 11/20/17 20:32 Red Blood Count 4.44, Mean Corpuscular Volume 87.8, Mean Corpuscular Hemoglobin 27.9, Mean Corpuscular Hemoglobin Concent 31.8, Mean Platelet Volume 10.0, Neutrophils (%) (Auto) 78.6, Lymphocytes (%) (Auto) 8.2, Monocytes (%) (Auto) 12.4, Eosinophils (%) (Auto) 0.3, Basophils (%) (Auto) 0.1, Neutrophils # (Auto ) 7.65, Lymphocytes # (Auto) 0.80, Monocytes # (Auto) 1.21, Eosinophils # (Auto ) 0.03, Basophils # (Auto) 0.01 11/20/17 20:32 Test 11/20/17 19:45 11/20/17 20:32 11/20/17 21:58 Influenza Type A Antigen Neg for Influ A (NEG) Influenza Type B Antigen Neg for Influ B (NEG) White Blood Count 9.74 K/uL (4.8-10.8) Red Blood Count 4.44 M/uL (4.2-5.4) Hemoglobin 12.4 g/dL (12.0-16.0) Hematocrit 39.0 % (37-47) Mean Corpuscular Volume 87.8 fL (80-100) Mean Corpuscular Hemoglobin 27.9 pg (25-34) Mean Corpuscular Hemoglobin Concent 31.8 g/dl (32-36) Platelet Count 206 K/uL (130-400) Mean Platelet Volume 10.0 fL (7.4-10.4) Neutrophils (%) (Auto) 78.6 % Lymphocytes (%) (Auto) 8.2 % Monocytes (%) (Auto) 12.4 % Eosinophils (%) (Auto) 0.3 % Basophils (%) (Auto) 0.1 % Neutrophils # (Auto) 7.65 K/uL (1.4-6.5) Lymphocytes # (Auto) 0.80 K/uL (1.2-3.4) Monocytes # (Auto) 1.21 K/uL (0.11-0.59) Eosinophils # (Auto) 0.03 K/uL (0-0.5) Basophils # (Auto) 0.01 K/uL (0-0.2) RDW Standard Deviation 55.7 fL (36.4-46.3) RDW Coefficient of Variation 17.1 % (11.5-14.5) Immature Granulocyte % (Auto) 0.4 % Immature Granulocyte # (Auto) 0.04 K/uL (0.00-0.02) Prothrombin Time 10.9 SECONDS (9.0-12.0) Prothromb Time International Ratio 1.0 (0.9-1.1) Activated Partial Thromboplast Time 29.7 SECONDS (21.0-31.0) Partial Thromboplastin Ratio 1.1 Anion Gap 10.0 mmol/L (3-11) Est Creatinine Clear Calc Drug Dose 16.5 ml/min Estimated GFR () 14.6 Estimated GFR (Non- 12.6 BUN/Creatinine Ratio 26.6 (10-20) Lactic Acid Level 0.7 mmol/L (0.4-2.0) Calcium Level 9.4 mg/dl (8.5-10.1) Total Bilirubin 0.9 mg/dl (0.2-1) Aspartate Amino Transf (AST/SGOT) 21 U/L (15-37) Alanine Aminotransferase (ALT/SGPT) 23 U/L (12-78) Alkaline Phosphatase 103 U/L (45-117) Total Protein 8.1 gm/dl (6.4-8.2) Albumin 3.4 gm/dl (3.4-5.0) Globulin 4.7 gm/dl (2.5-4.0) Albumin/Globulin Ratio 0.7 (0.9-2) Lipase 442 U/L (73-393) Urine Color YELLOW Urine Appearance CLEAR (CLEAR) Urine pH 5.0 (4.5-7.5) Urine Specific [place] 1.014 (1.000-1.030) Urine Protein 1+ (NEG) Urine Glucose (UA) NEG (NEG) Urine Ketones NEG (NEG) Urine Occult Blood NEG (NEG) Urine Nitrite NEG (NEG) Urine Bilirubin NEG (NEG) Urine Urobilinogen NEG (NEG) Urine Leukocyte Esterase TRACE (NEG) Urine WBC (Auto) 1-5 /hpf (0-5) Urine RBC (Auto) 5-10 /hpf (0-4) Urine Hyaline Casts (Auto) 1-5 /lpf (0-5) Urine Epithelial Cells (Auto) >30 /lpf (0-5) Urine Bacteria (Auto) NEG (NEG) Laboratory results reviewed by me Medications Administered Medications (Trade) Dose Ordered Sig/Dominique Route Start Time Stop Time Status Last Admin Dose Admin Acetaminophen (Tylenol Tab) 650 mg NOW STAT PO 11/20/17 19:45 11/20/17 19:48 DC 11/20/17 20:27 650 MG Sodium Chloride 1,000 ml @ 999 mls/hr Q1H1M STAT IV 11/20/17 20:08 11/20/17 21:08 DC 11/20/17 20:30 999 MLS/HR Ketorolac Tromethamine (Toradol Inj) 15 mg NOW STAT IV 11/20/17 20:08 11/20/17 20:11 DC 11/20/17 20:30 15 MG Ondansetron HCl (Zofran Inj) 4 mg NOW STAT IV 11/20/17 20:08 11/20/17 20:11 DC 11/20/17 20:29 4 MG ECG Per My Interpretation Indication: abdominal pain Rate (beats per minute): 96 Rhythm: other (sinus arrhythmia) Findings: other (AK, QRS, QTc wnl, no ST elevation or ST depression) ED Course 1953: The patient was evaluated in room B10. A complete history and physical exam was performed. 0: I reevaluated the patient. She is feeling better. Repeat physical exam shows no meningeal signs, heart and lungs wnl, no pain on palpation of the abdomen. I explained the lab results including CBC, bilirubin level, hepatic panel, coags, urine, and influenza which were all wnl. Chest X-ray wnl. US abdomen shows no increased size of CBD. Metabolic profile shows creatinine 3.74 which is at patients baseline. I explained to the patient that there is no clear source of the fever. Urine pending. Pt declined LP at this time. 5: Repeat VSS. Patient states she is feeling better. Her headache, fever, and chills are better. She again refused LP. Urine is contaminated sample, cultures pending. Pt will be discharged with a prescription for Zofran to follow up with PCP. DISCHARGE - Plan of care discussed with patient and questions answered. The patient was given both verbal and printed discharge instructions. The patient verbalized understanding and ability to comply. The patient is to seek outpatient follow up as noted in the discharge instructions. The patient verbalized understanding and ability to comply. The patient is discharged in stable condition. The patient was instructed to return for worsening symptoms. Medical Decision VSS. Repeat physical exam shows no meningeal signs, heart and lungs wnl, no pain on palpation of the abdomen. I explained the lab results including CBC, bilirubin level, hepatic panel, coags, and influenza which were all wnl. Urine was contaminated sample, culture pending. Chest X-ray wnl. US abdomen shows no increased size of CBD. Metabolic profile shows creatinine 3.74 which is at patients baseline. I explained to the patient that there is no clear source of the fever. She refused LP. Pt will be discharged with a prescription for Zofran to follow up with PCP. DISCHARGE - Plan of care discussed with patient and questions answered. The patient was given both verbal and printed discharge instructions. The patient verbalized understanding and ability to comply. The patient is to seek outpatient follow up as noted in the discharge instructions. The patient verbalized understanding and ability to comply. The patient is discharged in stable condition. The patient was instructed to return for worsening symptoms. Medication Reconcilliation Current Medication List: was personally reviewed by me Blood Pressure Screening Patient's blood pressure: Normal blood pressure Blood pressure disposition: Did not require urgent referral Impression Primary Impression: Fever Scribe Attestation The scribe's documentation has been prepared under my direction and personally reviewed by me in its entirety. I confirm that the note above accurately reflects all work, treatment, procedures, and medical decision making performed by me. The chart was completed utilizing [employer] Speech voice recognition software. Grammatical errors, random word insertions, pronoun errors, and incomplete sentences are an occasional consequence of this system due to software limitations, ambient noise, and hardware issues. Any formal questions or concerns about the content, text, or information contained within the body of this dictation should be directly addressed to the physician for clarification. Departure Information Dispostion Home / Self-Care Prescriptions Ondasetron Odt (ZOFRAN ODT) 4 Mg Tab 4 MG SL TID for Nausea, #30 TAB Prov: Jl Sotelo M.D. 11/20/17 Referrals Shruthi Mcbride D.O. (PCP) Forms HOME CARE DOCUMENTATION FORM, IMPORTANT VISIT INFORMATION Patient Instructions Fever - [facility], [facility] Additional Instructions Return to the emergency department if you develop fever greater than 100.4 not resolved with Tylenol or Motrin, worsening and/or recurrent headache, chest pain , difficulty breathing, seizure, lose consciousness, abdominal pain, blood in your urine, vomiting blood, or bloody stools. Problem Qualifiers Primary Impression: Fever Fever type: unspecified Qualified Codes: R50.9 - Fever, unspecified
[2017-11-21 00:13] VITALS: BP 107/59; PULSE 74; TEMP 37.3; O2SAT 96
== END 2017-11-21 00:13 | disposition home or self-care (01) ==
LOC: C.EDB 19:18
DX: R50.9 Fever, unspecified (principal); I49.9 Cardiac arrhythmia, unspecified; R11.2 Nausea with vomiting, unspecified; R19.7 Diarrhea, unspecified; E11.9 Type 2 diabetes mellitus without complications; Z94.0 Kidney transplant status; R51 Headache; R05 Cough; I10 Essential (primary) hypertension; E78.5 Hyperlipidemia, unspecified; N18.4 Chronic kidney disease, stage 4 (severe); Z79.4 Long term (current) use of insulin; Z79.899 Other long term (current) drug therapy; Z86.19 Personal history of other infectious and parasitic diseases; Z87.440 Personal history of urinary (tract) infections; Z87.448 Personal history of other diseases of urinary system; Z87.891 Personal history of nicotine dependence; Z88.1 Allergy status to other antibiotic agents; Z88.2 Allergy status to sulfonamides; Z88.5 Allergy status to narcotic agent; Z88.8 Allergy status to other drugs, medicaments and biological substances; Z91.041 Radiographic dye allergy status; Z91.048 Other nonmedicinal substance allergy status; Z80.3 Family history of malignant neoplasm of breast; Z82.49 Family history of ischemic heart disease and other diseases of the circulatory system; Z83.3 Family history of diabetes mellitus; Z84.1 Family history of disorders of kidney and ureter

== ENCOUNTER 2017-11-21 16:31 | Emergency (ER) | payer BC ==
[~2017-11-21] VITALS: Ht 172.7 cm; Wt 66.0 kg
[~2017-11-21 16:31] MED LIST changes: -CEFD300C3 PO; -DFC200 PO; -KRIL1CAP7 PO; -NRV/5 PO; +ONDA4TAB10 SL; -OXYC-609 PO
[2017-11-21 16:39] VITALS: TEMP 37.7; Ht 172.7 cm; Wt 66.0 kg
--- NOTE | 2017-11-21 17:01 | EMERGENCY ROOM VISIT NOTE ---
History Report prepared by Mason: Elmer Dhaliwal Under the Supervision of: Dr. Zurdo Avalos M.D. First contact with patient: 16:43 Chief Complaint: FEVER Stated Complaint: HIGH FEVER, VOMITING, RECHECK- TRANSPLANT PT History of Present Illness The patient is a 57 year old white female with a past medical history of CKD stage IV, kidney transplant, HLD, HTN who presents to the ED with a cc of persistent fever beginning an hour ago. Positive productive cough with yellow sputum, diarrhea. Negative sore throat, congestion, hematochezia, rashes, current headaches. The patient states that she has been sick for the past 5 days or so, with diarrhea and a cough, but the diarrhea became uncontrollable starting last night. She notes that the stool does not smell like C. difficile. The patient says that she was here last night, and had no acute changes in her ultrasound or blood work, and her kidney function was noted to be at baseline. She says that she takes Cyclosporin, Prednisone, and Rapamune. Her transplant was 17 years ago. She says that she had traveled to [place] a few weeks ago, and got a UTI after that, and was put on Macrobid. Per the patient's , no one else is sick at home. Source of History: patient Onset: An hour ago Position: other (global) Symptom Intensity: 102 temperature Quality: other (fever) Timing: other (persistent) Associated Symptoms: + cough, + diarrhea, No headache (current), No sorethroat, No hematochezia, No rash Note: Negative congestion. Review of Systems See HPI for pertinent positives and negatives. A total of ten systems were reviewed and were otherwise negative. Past Medical & Surgical Medical Problems: (1) Abdominal pain (2) Abdominal pain (3) Acute renal failure (4) Acute renal insufficiency (5) Asthma, Unspecified (6) Chronic Kidney Disease, Stage Iv (Severe) (7) Clostridium difficile diarrhea (8) Diab Raeann Wo Compl, Type Ii Or Unspec Type, Uncontrolled (9) Fever (10) HTN (hypertension) (11) Hyperlipidemia Nec/Nos (12) Immunosuppressed status (13) Klebsiella sepsis (14) Pancreatitis (15) Polycystic Kidney, Unspecified Type (16) SBO (small bowel obstruction) (17) SIRS (systemic inflammatory response syndrome) Surgical Problems: (1) Kidney transplant recipient (2) Kidney Transplant Status Family History Breast cancer Diabetes mellitus Heart disease Kidney disease Kidney stones Social History Smoking Status: Former Smoker Alcohol Use: none Drug Use: none Marital Status: Housing Status: lives with family Occupation Status: employed Current/Historical Medications Scheduled Azelastine HCl (Azelastine HCl), 1 SPRAYS АНДРЕЙ DAILY Biotin (Biotin 5000), 5,000 MCG PO QAM Calcium W/ Vitamins D & K (Calcium + D + K), 1 TABLET PO MWF Carvedilol (Carvedilol), 3.125 MG PO QAM Carvedilol (Carvedilol), 12.5 MG PO QPM Cyclosporine (Neoral), 25 MG PO BID Cyclosporine Modified (For Rex (Cyclosporine Modified), 50 MG PO BID Estrogens, Conjugated (Premarin), 0.625 MG PO 2XWK Insulin Detemir (Levemir Flextouch), 8 UNITS SC PM Multivitamin (Multivitamin), 1 TAB PO QAM Ondasetron Odt (Zofran Odt), 4 MG SL TID Pantoprazole (Pantoprazole Sodium), 1 TAB PO DAILY Polysaccharide Iron Complex (Ferrex 150), 150 MG PO QPM Pramipexole (Mirapex), 0.125 MG PO HS Prednisone (Prednisone), 2.5 MG PO QAM Sirolimus (Rapamune), 1 MG PO QAM Venlafaxine Hcl (Effexor), 1 TAB PO HS Scheduled PRN Acetamin/Butalbital/Caffeine (Fioricet), 1 TAB PO Q4 PRN for Headache Epoetin Kvng (Procrit), 1 DOSE INJ WK PRN for ANEMIA Ondansetron (Ondansetron HCl), 1 TAB PO BID PRN for Nausea or Vomiting Allergies Coded Allergies: Iodinated Diagnostic Agents (Verified Allergy, Severe, Hx Kidney Transplant, 11/23/17) Statins (Verified Allergy, Severe, "PANCREATITIS", 11/23/17) Sumatriptan (Verified Allergy, Severe, seizure, 11/23/17) Hydrochlorothiazide (Verified Allergy, Mild, 11/23/17) Sulfa Antibiotics (Verified Allergy, Mild, ., 11/23/17) Triamterene (Verified Allergy, Mild, 11/23/17) Atorvastatin (Verified Allergy, Unknown, ?, 11/23/17) Doxycycline (Verified Allergy, Unknown, UNKNOWN, 11/23/17) Levofloxacin (Verified Allergy, Unknown, joint pain, 11/23/17) Adhesives (Verified Adverse Reaction, Unknown, SKIN TEAR, 11/23/17) Ciprofloxacin (Verified Adverse Reaction, Unknown, FATIGUE, 11/23/17) Morphine (Verified Adverse Reaction, Unknown, INEFFECTIVE, 11/23/17) Physical Exam Vital Signs Date Time Temp Pulse Resp B/P (MAP) Pulse Ox O2 Delivery O2 Flow Rate FiO2 11/21/17 23:34 74 20 95/45 96 11/21/17 21:30 75 104/52 94 Room Air 11/21/17 18:56 90 19 115/60 97 Room Air 11/21/17 17:10 94 Room Air 11/21/17 16:39 37.7 110 22 149/67 96 Room Air Physical Exam GENERAL: Awake, alert, chronically ill-appearing, NAD HENT: Normocephalic, atraumatic. EYES: Normal conjunctiva. Sclera non-icteric. NECK: Supple. No nuchal rigidity. FROM. RESPIRATORY: CTAB, no rhonchi, wheezing, crackles CARDIAC: Tachy and regular, no MRG ABDOMEN: Soft, NTND, BS+ MSK: No chest wall TTP, no LE edema NEURO: GCS 15, CN 2-12 intact, moves all 4s on command SKIN: No rash or jaundice noted. Medical Decision & Procedures Laboratory Results 11/21/17 17:22 Red Blood Count 3.68, Mean Corpuscular Volume 86.7, Mean Corpuscular Hemoglobin 28.8, Mean Corpuscular Hemoglobin Concent 33.2, Mean Platelet Volume 9.8, Neutrophils (%) (Auto) 77.9, Lymphocytes (%) (Auto) 7.1, Monocytes (%) (Auto) 14.4, Eosinophils (%) (Auto) 0.2, Basophils (%) (Auto) 0.1, Neutrophils # (Auto ) 9.61, Lymphocytes # (Auto) 0.88, Monocytes # (Auto) 1.78, Eosinophils # (Auto ) 0.02, Basophils # (Auto) 0.01 11/21/17 22:33 Test 11/21/17 17:22 11/21/17 18:04 11/21/17 18:41 11/21/17 21:56 White Blood Count 12.34 K/uL (4.8-10.8) Red Blood Count 3.68 M/uL (4.2-5.4) Hemoglobin 10.6 g/dL (12.0-16.0) Hematocrit 31.9 % (37-47) Mean Corpuscular Volume 86.7 fL (80-100) Mean Corpuscular Hemoglobin 28.8 pg (25-34) Mean Corpuscular Hemoglobin Concent 33.2 g/dl (32-36) Platelet Count 161 K/uL (130-400) Mean Platelet Volume 9.8 fL (7.4-10.4) Neutrophils (%) (Auto) 77.9 % Lymphocytes (%) (Auto) 7.1 % Monocytes (%) (Auto) 14.4 % Eosinophils (%) (Auto) 0.2 % Basophils (%) (Auto) 0.1 % Neutrophils # (Auto) 9.61 K/uL (1.4-6.5) Lymphocytes # (Auto) 0.88 K/uL (1.2-3.4) Monocytes # (Auto) 1.78 K/uL (0.11-0.59) Eosinophils # (Auto) 0.02 K/uL (0-0.5) Basophils # (Auto) 0.01 K/uL (0-0.2) RDW Standard Deviation 55.5 fL (36.4-46.3) RDW Coefficient of Variation 17.5 % (11.5-14.5) Immature Granulocyte % (Auto) 0.3 % Immature Granulocyte # (Auto) 0.04 K/uL (0.00-0.02) Prothrombin Time 11.1 SECONDS (9.0-12.0) Prothromb Time International Ratio 1.1 (0.9-1.1) Activated Partial Thromboplast Time 32.0 SECONDS (21.0-31.0) Partial Thromboplastin Ratio 1.2 Lactic Acid Level 0.5 mmol/L (0.4-2.0) Magnesium Level 1.4 mg/dl (1.8-2.4) Total Bilirubin 0.8 mg/dl (0.2-1) Direct Bilirubin 0.3 mg/dl (0-0.2) Aspartate Amino Transf (AST/SGOT) 21 U/L (15-37) Alanine Aminotransferase (ALT/SGPT) 23 U/L (12-78) Alkaline Phosphatase 99 U/L (45-117) Troponin I < 0.015 ng/ml (0-0.045) Total Protein 7.3 gm/dl (6.4-8.2) Albumin 2.9 gm/dl (3.4-5.0) Lipase 313 U/L (73-393) Venous Blood pH 7.39 (7.36-7.41) Venous Blood Partial Pressure CO2 32 mmHg (38.0-50.0) Venous Blood Partial Pressure O2 58 mmHg Venous Blood HCO3 19 mmol/L Venous Blood Oxygen Saturation 88.5 % Venous Blood Base Excess -5.1 mEq/L Urine Color YELLOW Urine Appearance CLOUDY (CLEAR) Urine pH 5.0 (4.5-7.5) Urine Specific [place] 1.016 (1.000-1.030) Urine Protein 1+ (NEG) Urine Glucose (UA) NEG (NEG) Urine Ketones NEG (NEG) Urine Occult Blood 3+ (NEG) Urine Nitrite NEG (NEG) Urine Bilirubin NEG (NEG) Urine Urobilinogen NEG (NEG) Urine Leukocyte Esterase SMALL (NEG) Urine WBC (Auto) 1-5 /hpf (0-5) Urine RBC (Auto) 5-10 /hpf (0-4) Urine Hyaline Casts (Auto) 1-5 /lpf (0-5) Urine Epithelial Cells (Auto) >30 /lpf (0-5) Urine Bacteria (Auto) NEG (NEG) Urine Yeast (Auto) (NONE PRSENT) Influenza Type A Antigen Neg for Influ A (NEG) Influenza Type B Antigen Neg for Influ B (NEG) Test 11/21/17 22:33 Anion Gap 11.0 mmol/L (3-11) Est Creatinine Clear Calc Drug Dose 14.1 ml/min Estimated GFR () 12.1 Estimated GFR (Non- 10.4 BUN/Creatinine Ratio 22.4 (10-20) Calcium Level 8.2 mg/dl (8.5-10.1) Date/Time Source Procedure Growth Status 11/21/17 20:25 Stool C.difficile Toxin B Gene (PCR) - Final No C. difficile toxin B gene detected Complete Laboratory results reviewed by me Medications Administered Medications (Trade) Dose Ordered Sig/Dominique Route Start Time Stop Time Status Last Admin Dose Admin Sodium Chloride 1,000 ml @ 999 mls/hr Q1H1M STAT IV 11/21/17 17:51 11/21/17 18:51 DC 11/21/17 18:08 999 MLS/HR Ondansetron HCl (Zofran Inj) 4 mg NOW STAT IV 11/21/17 17:51 11/21/17 17:52 DC 11/21/17 18:07 4 MG Metoclopramide HCl (Reglan Inj) 10 mg NOW STAT IV. 11/21/17 19:11 11/21/17 19:13 DC 11/21/17 19:25 10 MG Diphenhydramine HCl (Benadryl Inj) 25 mg NOW STAT IV 11/21/17 19:11 11/21/17 19:13 DC 11/21/17 19:25 25 MG Acetaminophen (Tylenol Tab) 650 mg NOW STAT PO 11/21/17 19:11 11/21/17 19:13 DC 11/21/17 19:25 650 MG Magnesium Oxide (Mag-Ox Tab) 800 mg ONE STAT PO 11/21/17 21:05 11/21/17 21:06 DC 11/21/17 21:29 800 MG ECG Per My Interpretation Indication: other (fever) Rate (beats per minute): 95 Rhythm: normal sinus (with sinus arrhythmia) Findings: T-wave inversion (high lateral), left axis deviation, other (normal intervals) Comparison ECG Date: compared to 11/20/17, TWI's are new ED Course 1650: The patient was evaluated in room C8. A complete history and physical exam was performed. 1728: The patient refused the x-ray. 1910: I reevaluated the patient and she feels a bit better, but wants something for her migraine. 2109: Upon reexamination, the patient was resting. I discussed the test results and treatment plan with her. The patient will be evaluated for further management. 2113: Dr. Herrera - [facility] - was made aware of the patient. The patient will be evaluated for further treatment. 3: I reevaluated the patient and she is wanting to go home. Discussed results and discharge instructions: she verbalized understanding and agreement. The patient is ready for discharge. Medical Decision The patient is a 57 year old white female with a past medical history of CKD stage IV, kidney transplant, HLD, HTN who presents to the ED with a cc of persistent fever beginning an hour ago. Positive productive cough with yellow sputum, diarrhea. Negative sore throat, congestion, hematochezia, rashes, current headaches. Differential diagnosis: Etiologies such as viral syndrome, otitis, pharyngitis, pneumonia, influenza, meningitis, urinary tract infection, sepsis, bacteremia, as well as others were entertained. Patient was seen and evaluated the bedside. Patient is a prior history of CAD and kidney transplant and is on immunosuppressant medications. Patient to see Dr. 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 Patient has complained of some fever. She also does complain of some mild productive cough with yellow sputum. Patient is most concerned about some recent diarrhea. Patient was on Bactrim and Keflex for UTI but is approximate 3-4 weeks prior. This is after recently traveling to [place]. Patient denies any sick contacts. Patient states she did have a fever earlier today. Patient had blood work completed. Patient does have mild elevation in her creatinine. Patient does have an elevated BUN to creatinine ratio. Patient was given IV fluids. Upon reassessment patient still feeling mildly nauseous. Patient does have mild elevation of her white count compared to prior. Patient still declined any sort of lumbar puncture. I discussed that the reason for her fever may be a URI and we did obtain blood cultures. The patient is very concerned as this is there is a second return visit in the last day. I did state that we could discuss it with the hospitalist. The hospitalist was paged to further discuss the patient. Patient seen by hospitalist. BMP ordered. C diff negative. Patient feeling well and had eaten some fastfood at the bedside. Now requesting to go home. Appears improved and feels improved. Repeat BMP does not show improvement in creat. Discussed return precautions as patient still requested to go home. Deemed suitable by strict return precautions. D/c'ed to home. Medication Reconcilliation Current Medication List: was personally reviewed by me Blood Pressure Screening Patient's blood pressure: Elevated blood pressure Blood pressure disposition: Elevated BP felt to be situational Consults Time Called: 2099 Consulting Physician: Dr. Herrera - [facility] leak hunter Returned Call: 2113 Dr. Sharon COSTELLO leak hunter - was made aware of the patient. The patient will be evaluated for further treatment. Impression Primary Impression: MARICO (acute kidney injury) Additional Impressions: Dehydration History of renal transplant CKD (chronic kidney disease) Scribe Attestation The scribe's documentation has been prepared under my direction and personally reviewed by me in its entirety. I confirm that the note above accurately reflects all work, treatment, procedures, and medical decision making performed by me. Departure Information Dispostion Home / Self-Care Referrals No Doctor, Assigned (PCP) Patient Instructions Fever - [facility], My [facility] Additional Instructions Please return to the emergency department if you have worsening or recurrent symptoms not amenable to at-home treatment. Please call for a follow-up appointment with her primary care physician. Please take your medications as prescribed. If you have other concerns and/or complaints please feel free to also call your primary care physician's office or return the ED for further evaluation, management, and treatment. You may take 650 mg every 6 hours as needed for pain. Take your medications as prescribed. If taking an antibiotic consider taking a probiotic and/or eating yogurt, but at the least, please take with food as it can cause upset stomach. If culture results are not available at discharge, if they are positive for concern of infection, you will be informed of the results as soon as they are available. You have been examined and treated today on an emergency basis only. This is not a substitute for, or an effort to provide, complete comprehensive medical care. It is impossible to recognize and treat all injuries or illnesses in a single emergency department visit. It is therefore important that you follow up closely with [facility], your PCP, and/or your specialist(s). Call as soon as possible for an appointment. Thank you for your time and consideration. I look forward to speaking with you again soon. Please don't hesitate to call us if you have any questions. Problem Qualifiers Additional Impressions: CKD (chronic kidney disease) Chronic kidney disease stage: stage 5, not on chronic dialysis Qualified Codes: N18.5 - Chronic kidney disease, stage 5
[2017-11-21 17:10] VITALS: O2SAT 94
[2017-11-21 17:42] LABS: BASO % 0.1 %; BASO ABS # 0.01 K/uL (0-0.2); EOS % 0.2 %; EOS ABS # 0.02 K/uL (0-0.5); HEMATOCRIT 31.9 % (37-47); HEMOGLOBIN 10.6 g/dL (12.0-16.0); IG# 0.04 K/uL (0.00-0.02); LYMPH % 7.1 %; LYMPH ABS # 0.88 K/uL (1.2-3.4); MEAN CELL VOLUME 86.7 fL (80-100); MEAN CORPUSCULAR HEMOGLOBIN 28.8 pg (25-34); MEAN CORPUSCULAR HGB CONC 33.2 g/dl (32-36); MEAN PLATELET VOLUME 9.8 fL (7.4-10.4); MONO % 14.4 %; MONO ABS # 1.78 K/uL (0.11-0.59); NEUT % 77.9 %; NEUT ABS # 9.61 K/uL (1.4-6.5); PLATELET COUNT 161 K/uL (130-400); RED CELL DISTRIBUTION WIDTH CV 17.5 % (11.5-14.5); RED CELL DISTRIBUTION WIDTH SD 55.5 fL (36.4-46.3); WHITE BLOOD COUNT 12.34 K/uL (4.8-10.8)
[2017-11-21 17:51] LABS: INR 1.1 (0.9-1.1)
[2017-11-21] MEDS ORDERED: ONDANSETRON INJ 2 MG/ML 2 ML VIAL IV STA (17:51)
[2017-11-21] MEDS ORDERED: SODIUM CHLORIDE 0.9% 1000ML 1,000 ML IV STA (17:51)
[2017-11-21 18:00] LABS: ALBUMIN 2.9 gm/dl (3.4-5.0); ALT/SGPT 23 U/L (12-78); AST/SGOT 21 U/L (15-37); BLOOD UREA NITROGEN 101 mg/dl (7-18); CALCIUM 8.5 mg/dl (8.5-10.1); CARBON DIOXIDE 19 mmol/L (21-32); CREATININE 4.24 mg/dl (0.60-1.20); GLUCOSE 164 mg/dl (70-99); LIPASE 313 U/L (73-393); POTASSIUM 4.4 mmol/L (3.5-5.1); SODIUM 133 mmol/L (136-145)
[2017-11-21 18:06] LABS: ALKALINE PHOSPHATASE 99 U/L (45-117); TOTAL PROTEIN 7.3 gm/dl (6.4-8.2)
[2017-11-21] MEDS ORDERED: DiphenhydrAMINE HCL 50 MG/ML VIAL IV STA (19:11)
[2017-11-21] MEDS ORDERED: METOCLOPRAMIDE HCL INJ 5 MG/ML 2 ML VIAL IV. STA (19:11)
[2017-11-21] MEDS ORDERED: ACETAMINOPHEN 325 MG TAB PO STA (19:11)
[2017-11-21] MEDS ORDERED: MAGNESIUM OXIDE 400 MG TAB PO STA (21:05)
[2017-11-21 22:24] LABS: INFLUENZA B ANTIGEN Neg for Influ B (NEG)
[2017-11-21 22:59] LABS: CALCIUM 8.2 mg/dl (8.5-10.1); CREATININE 4.38 mg/dl (0.60-1.20); POTASSIUM 3.8 mmol/L (3.5-5.1)
[2017-11-21 23:34] VITALS: BP 95/45; PULSE 74; O2SAT 96
--- NOTE | 2017-11-22 00:04 | Medical Consult ---
Consultation Date of Consultation: Nov 21, 2017. Attending Physician: History of Present Illness 57 y/o F Hx HTN, DM, anemia, renal transplant and CKD IV - V. The pt presented to the ER with diarrhea and a fever. She had presented with the same complaint one day prior. She had also complained of a cough the previous day. She denied abdominal pain, vomiting, SOB or dysuria. No source of infection was apparent on initial workup aside from diarrhea. She had a low fever on arrival to the ER. A rapid flu and C diff toxin proved negative. A CXR was negative the prior day. The pt refused a repeat CXR. She also had refused an LP the prior prashant which was recommended by the ER attending due to a headache. It is noted that her baseline renal function appears to be declining. She states that she is aware of this and has been discussing additional transplant options with her furnace erector. the pt received a litre of IVF and Tylenol in the ER. She then stated that she felt better and did not wish to remain in the hospital. Past Medical/Surgical History Medical Problems: (1) DM II (2) HTN (3) Chronic anemia (4) Renal transplant recipient (5) CKD IV - V (6) Ileus (7) Immunocompromised (8) Kidney Transplant Status (9) Small bowel obstruction Surgical (1) History of renal transplant Family History Breast cancer Diabetes mellitus Heart disease Kidney disease Kidney stones Social History Smoking Status: Former Smoker Drug Use: none Marital Status: Housing Status: lives with family Occupation Status: employed Allergies Coded Allergies: Iodinated Diagnostic Agents (Verified Allergy, Severe, Hx Kidney Transplant, 11/21/17) Statins (Verified Allergy, Severe, "PANCREATITIS", 11/21/17) Sumatriptan (Verified Allergy, Severe, seizure, 11/21/17) Hydrochlorothiazide (Verified Allergy, Mild, 11/21/17) Sulfa Antibiotics (Verified Allergy, Mild, ., 11/21/17) Triamterene (Verified Allergy, Mild, 11/21/17) Atorvastatin (Verified Allergy, Unknown, ?, 11/21/17) Doxycycline (Verified Allergy, Unknown, UNKNOWN, 11/21/17) Levofloxacin (Verified Allergy, Unknown, joint pain, 11/21/17) Adhesives (Verified Adverse Reaction, Unknown, SKIN TEAR, 11/21/17) Ciprofloxacin (Verified Adverse Reaction, Unknown, FATIGUE, 11/21/17) Morphine (Verified Adverse Reaction, Unknown, INEFFECTIVE, 11/21/17) Review of Systems Constitutional: + fever, No chills, No sweats Eyes: No worsening of vision ENT: No hearing loss, No unusual epistaxis, No nasal symptoms Respiratory: + cough, No sputum, No wheezing Cardiovascular: No chest pain, No orthopnea, No PND Abdomen: + nausea, + diarrhea, No pain Musculoskeletal: No joint pain Genitourinary - Female: No dysuria, No urinary frequency, No urinary urgency Neurologic: No memory loss, No paralysis, No weakness Psychiatric: No depression symptoms Endocrine: + fatigue Hematologic / Lymphatic: No abnormal bleeding/bruising Integumentary: No rash Allergic / Immunologic: No environmental allergies Physical Exam Date Time Temp Pulse Resp B/P (MAP) Pulse Ox O2 Delivery O2 Flow Rate FiO2 11/21/17 23:34 74 20 95/45 96 11/21/17 21:30 75 104/52 94 Room Air 11/21/17 18:56 90 19 115/60 97 Room Air 11/21/17 17:10 94 Room Air 11/21/17 16:39 37.7 110 22 149/67 96 Room Air General Appearance: WD/WN, no apparent distress Head: normocephalic Eyes: normal inspection, EOMI ENT: normal ENT inspection, pharynx normal Neck: supple, no JVD Respiratory/Chest: chest non-tender, lungs clear, normal breath sounds Cardiovascular: regular rate, rhythm, no edema, no gallop Abdomen/GI: normal bowel sounds, non tender, soft Back: normal inspection, no CVA tenderness Extremities/Musculoskelatal: normal inspection, no calf tenderness, normal capillary refill, no pedal edema, normal range of motion Neurologic/Psych: journalism professor II-XII nml as tested, no motor/sensory deficits, alert, oriented x 3 Skin: normal color, warm/dry Laboratory Results Last 24 Hours Test 11/21/17 17:22 11/21/17 18:04 11/21/17 18:41 11/21/17 21:56 White Blood Count 12.34 K/uL Red Blood Count 3.68 M/uL Hemoglobin 10.6 g/dL Hematocrit 31.9 % Mean Corpuscular Volume 86.7 fL Mean Corpuscular Hemoglobin 28.8 pg Mean Corpuscular Hemoglobin Concent 33.2 g/dl Platelet Count 161 K/uL Mean Platelet Volume 9.8 fL Neutrophils (%) (Auto) 77.9 % Lymphocytes (%) (Auto) 7.1 % Monocytes (%) (Auto) 14.4 % Eosinophils (%) (Auto) 0.2 % Basophils (%) (Auto) 0.1 % Neutrophils # (Auto) 9.61 K/uL Lymphocytes # (Auto) 0.88 K/uL Monocytes # (Auto) 1.78 K/uL Eosinophils # (Auto) 0.02 K/uL Basophils # (Auto) 0.01 K/uL RDW Standard Deviation 55.5 fL RDW Coefficient of Variation 17.5 % Immature Granulocyte % (Auto) 0.3 % Immature Granulocyte # (Auto) 0.04 K/uL Prothrombin Time 11.1 SECONDS Prothromb Time International Ratio 1.1 Activated Partial Thromboplast Time 32.0 SECONDS Partial Thromboplastin Ratio 1.2 Sodium Level 133 mmol/L Potassium Level 4.4 mmol/L Chloride Level 102 mmol/L Carbon Dioxide Level 19 mmol/L Anion Gap 12.0 mmol/L Blood Urea Nitrogen 101 mg/dl Creatinine 4.24 mg/dl Est Creatinine Clear Calc Drug Dose 14.6 ml/min Estimated GFR () 12.5 Estimated GFR (Non- 10.8 BUN/Creatinine Ratio 23.9 Random Glucose 164 mg/dl Lactic Acid Level 0.5 mmol/L Calcium Level 8.5 mg/dl Magnesium Level 1.4 mg/dl Total Bilirubin 0.8 mg/dl Direct Bilirubin 0.3 mg/dl Aspartate Amino Transf (AST/SGOT) 21 U/L Alanine Aminotransferase (ALT/SGPT) 23 U/L Alkaline Phosphatase 99 U/L Troponin I < 0.015 ng/ml Total Protein 7.3 gm/dl Albumin 2.9 gm/dl Lipase 313 U/L Venous Blood pH 7.39 Venous Blood Partial Pressure CO2 32 mmHg Venous Blood Partial Pressure O2 58 mmHg Venous Blood HCO3 19 mmol/L Venous Blood Oxygen Saturation 88.5 % Venous Blood Base Excess -5.1 mEq/L Urine Color YELLOW Urine Appearance CLOUDY Urine pH 5.0 Urine Specific [place] 1.016 Urine Protein 1+ Urine Glucose (UA) NEG Urine Ketones NEG Urine Occult Blood 3+ Urine Nitrite NEG Urine Bilirubin NEG Urine Urobilinogen NEG Urine Leukocyte Esterase SMALL Urine WBC (Auto) 1-5 /hpf Urine RBC (Auto) 5-10 /hpf Urine Hyaline Casts (Auto) 1-5 /lpf Urine Epithelial Cells (Auto) >30 /lpf Urine Bacteria (Auto) NEG Urine Yeast (Auto) Influenza Type A Antigen Neg for Influ A Influenza Type B Antigen Neg for Influ B Test 11/21/17 22:33 Sodium Level 134 mmol/L Potassium Level 3.8 mmol/L Chloride Level 104 mmol/L Carbon Dioxide Level 19 mmol/L Anion Gap 11.0 mmol/L Blood Urea Nitrogen 98 mg/dl Creatinine 4.38 mg/dl Est Creatinine Clear Calc Drug Dose 14.1 ml/min Estimated GFR () 12.1 Estimated GFR (Non- 10.4 BUN/Creatinine Ratio 22.4 Random Glucose 211 mg/dl Calcium Level 8.2 mg/dl Assessment & Plan 57 y/o F Hx HTN, DM, anemia, renal transplant and CKD IV - V. The pt presented to the ER with diarrhea and a fever. She had presented with the same complaint one day prior. She had also complained of a cough the previous day. She denied abdominal pain, vomiting, SOB or dysuria. No source of infection was apparent on initial workup aside from diarrhea. She had a low fever on arrival to the ER. A rapid flu and C diff toxin proved negative. A CXR was negative the prior day. The pt refused a repeat CXR. She also had refused an LP the prior prashant which was recommended by the ER attending due to a headache. It is noted that her baseline renal function appears to be declining. She states that she is aware of this and has been discussing additional transplant options with her furnace erector. She also states that she has a dilated bile duct and has an appt for an ERCP at [facility] in the coming week. the pt received a litre of IVF and Tylenol in the ER. She then stated that she felt better and did not wish to remain in the hospital. 1) Fever - likely viral - if persists, it is recommended that she return to the hospital or pursue follow-up with an ID specialist. 2) Diarrhea - she is recommended t follow-up with her MD or return to the hospital if her diarrhea does not resolve. She is advised to maintain adequate hydration. 3) Anemia - Hb has been variable and is comparable to previous values - no source of bleeding is identified. 4) DM - cont Levimir 5) CKD - gradual failure of transplanted kidney - she is pursuing options with her Telephone Switchboard Operator. ramains on antirejection regimen. Total time for this consult including review of labs, meds, records - discussion with pt and ER attending - 40 min Pt did not wish to remain hospitalized at present
== END 2017-11-21 23:35 | disposition home or self-care (01) ==
LOC: C.EDB 16:33 → C.EDC 23:35
DX: N17.9 Acute kidney failure, unspecified (principal); E86.0 Dehydration; N18.5 Chronic kidney disease, stage 5; I12.0 Hypertensive chronic kidney disease with stage 5 chronic kidney disease or end stage renal disease; Z94.0 Kidney transplant status; E78.5 Hyperlipidemia, unspecified; Z79.899 Other long term (current) drug therapy; Z87.440 Personal history of urinary (tract) infections; E11.22 Type 2 diabetes mellitus with diabetic chronic kidney disease; Z83.3 Family history of diabetes mellitus; Z82.49 Family history of ischemic heart disease and other diseases of the circulatory system; Z80.3 Family history of malignant neoplasm of breast; Z87.891 Personal history of nicotine dependence; Z88.5 Allergy status to narcotic agent; Z91.041 Radiographic dye allergy status; Z88.2 Allergy status to sulfonamides; Z88.1 Allergy status to other antibiotic agents; Z91.048 Other nonmedicinal substance allergy status; Z88.8 Allergy status to other drugs, medicaments and biological substances

== ENCOUNTER 2017-11-23 01:30 | Emergency (ER) | payer BC ==
[~2017-11-23] VITALS: Ht 172.7 cm; Wt 66.8 kg
[2017-11-23 01:39] VITALS: TEMP 36.9; Ht 172.7 cm; Wt 66.8 kg
[2017-11-23 02:00] LABS: BASO % 0.1 %; BASO ABS # 0.01 K/uL (0-0.2); EOS % 0.3 %; EOS ABS # 0.05 K/uL (0-0.5); HEMATOCRIT 30.9 % (37-47); IG# 0.07 K/uL (0.00-0.02); LYMPH % 7.6 %; MEAN CELL VOLUME 89.3 fL (80-100); MEAN CORPUSCULAR HEMOGLOBIN 28.9 pg (25-34); MEAN CORPUSCULAR HGB CONC 32.4 g/dl (32-36); MEAN PLATELET VOLUME 10.3 fL (7.4-10.4); MONO % 9.2 %; MONO ABS # 1.45 K/uL (0.11-0.59); NEUT % 82.4 %; PLATELET COUNT 178 K/uL (130-400); RED CELL DISTRIBUTION WIDTH CV 17.7 % (11.5-14.5); RED CELL DISTRIBUTION WIDTH SD 57.7 fL (36.4-46.3); WHITE BLOOD COUNT 15.78 K/uL (4.8-10.8)
[2017-11-23 02:41] LABS: ALBUMIN 2.7 gm/dl (3.4-5.0); ALKALINE PHOSPHATASE 105 U/L (45-117); ALT/SGPT 51 U/L (12-78); AST/SGOT 71 U/L (15-37); BLOOD UREA NITROGEN 97 mg/dl (7-18); CALCIUM 8.8 mg/dl (8.5-10.1); CARBON DIOXIDE 19 mmol/L (21-32); CREATININE 5.31 mg/dl (0.60-1.20); GLUCOSE 161 mg/dl (70-99); POTASSIUM 4.3 mmol/L (3.5-5.1); SODIUM 133 mmol/L (136-145); TOTAL PROTEIN 6.9 gm/dl (6.4-8.2)
[2017-11-23] MEDS: ONDANSETRON INJ 2 MG/ML 2 ML VIAL IV STA (02:44)
[2017-11-23 02:59] LABS: INR 1.1 (0.9-1.1); PTT PATIENT 34.8 SECONDS (21.0-31.0)
--- NOTE | 2017-11-23 02:59 | History and Physical ---
History & Physical Date & Time of Service: Nov 23, 2017 at 02:56 Chief Complaint: Syncope/Fall Primary Care Physician: No Doctor, Assigned History of Present Illness Source: patient, hospital records 57 y/o F Hx HTN, DM, anemia, renal transplant and CKD IV - V. The pt presented to the ER with diarrhea and a fever 11/21 and 11/22. She had presented with the same complaint one day prior. No source of infection was apparent on initial workup aside from diarrhea. She had a low fever on arrival to the ER. A rapid flu and C diff toxin proved negative. A CXR was negative. It is noted that her baseline renal function appears to be declining which she was aware of aware of and had been discussing additional transplant options with her home health assistant. The pt received a litre of IVF and Tylenol in the ER and then stated that she felt better and did not wish to remain hospitalized. She was DCd from the ER. She returns today having suffered a syncopal episode. Past Medical/Surgical History Medical Problems: (1) DM II (2) HTN (3) Chronic anemia (4) Renal transplant recipient (5) CKD IV - V (6) Ileus (7) Immunocompromised (8) Kidney Transplant Status (9) Small bowel obstruction Surgical (1) History of renal transplant Family History Breast cancer Diabetes mellitus Heart disease Kidney disease Kidney stones Social History Smoking Status: Current Some Day Smoker Drug Use: none Marital Status: Housing status: lives with significant other Occupational Status: employed Immunizations History of Influenza Vaccine: Yes Influenza Vaccine Date: Jul 11, 2012 History of Tetanus Vaccine?: Yes History of Pneumococcal: Yes History of Hepatitis B Vaccine: Yes Hepatitis Immunization Date: February 09, 2008 Allergies Coded Allergies: Iodinated Diagnostic Agents (Verified Allergy, Severe, Hx Kidney Transplant, 11/23/17) Statins (Verified Allergy, Severe, "PANCREATITIS", 11/23/17) Sumatriptan (Verified Allergy, Severe, seizure, 11/23/17) Hydrochlorothiazide (Verified Allergy, Mild, 11/23/17) Sulfa Antibiotics (Verified Allergy, Mild, ., 11/23/17) Triamterene (Verified Allergy, Mild, 11/23/17) Atorvastatin (Verified Allergy, Unknown, ?, 11/23/17) Doxycycline (Verified Allergy, Unknown, UNKNOWN, 11/23/17) Levofloxacin (Verified Allergy, Unknown, joint pain, 11/23/17) Adhesives (Verified Adverse Reaction, Unknown, SKIN TEAR, 11/23/17) Ciprofloxacin (Verified Adverse Reaction, Unknown, FATIGUE, 11/23/17) Morphine (Verified Adverse Reaction, Unknown, INEFFECTIVE, 11/23/17) Home Medications Scheduled Azelastine HCl (Azelastine HCl), 1 SPRAYS АНДРЕЙ DAILY Biotin (Biotin 5000), 5,000 MCG PO QAM Calcium W/ Vitamins D & K (Calcium + D + K), 1 TABLET PO MWF Carvedilol (Carvedilol), 3.125 MG PO QAM Carvedilol (Carvedilol), 12.5 MG PO QPM Cyclosporine (Neoral), 25 MG PO BID Cyclosporine Modified (For Rex (Cyclosporine Modified), 50 MG PO BID Estrogens, Conjugated (Premarin), 0.625 MG PO 2XWK Insulin Detemir (Levemir Flextouch), 8 UNITS SC PM Multivitamin (Multivitamin), 1 TAB PO QAM Ondasetron Odt (Zofran Odt), 4 MG SL TID Pantoprazole (Pantoprazole Sodium), 1 TAB PO DAILY Polysaccharide Iron Complex (Ferrex 150), 150 MG PO QPM Pramipexole (Mirapex), 0.125 MG PO HS Prednisone (Prednisone), 2.5 MG PO QAM Sirolimus (Rapamune), 1 MG PO QAM Venlafaxine Hcl (Effexor), 1 TAB PO HS Scheduled PRN Acetamin/Butalbital/Caffeine (Fioricet), 1 TAB PO Q4 PRN for Headache Epoetin Kvng (Procrit), 1 DOSE INJ WK PRN for ANEMIA Ondansetron (Ondansetron HCl), 1 TAB PO BID PRN for Nausea or Vomiting Physical Exam Vital Signs Date Time Temp Pulse Resp B/P (MAP) Pulse Ox O2 Delivery O2 Flow Rate FiO2 11/23/17 01:42 75 11/23/17 01:39 36.9 81 18 118/60 96 Room Air Diagnostics Laboratory Results Results Past 24 Hours Test 11/23/17 01:25 11/23/17 01:43 11/23/17 02:08 11/23/17 02:40 Range/Units White Blood Count 15.78 4.8-10.8 K/uL Red Blood Count 3.46 4.2-5.4 M/uL Hemoglobin 10.0 12.0-16.0 g/dL Hematocrit 30.9 37-47 % Mean Corpuscular Volume 89.3 80-100 fL Mean Corpuscular Hemoglobin 28.9 25-34 pg Mean Corpuscular Hemoglobin Concent 32.4 32-36 g/dl Platelet Count 178 130-400 K/uL Mean Platelet Volume 10.3 7.4-10.4 fL Neutrophils (%) (Auto) 82.4 % Lymphocytes (%) (Auto) 7.6 % Monocytes (%) (Auto) 9.2 % Eosinophils (%) (Auto) 0.3 % Basophils (%) (Auto) 0.1 % Neutrophils # (Auto) 13.00 1.4-6.5 K/uL Lymphocytes # (Auto) 1.20 1.2-3.4 K/uL Monocytes # (Auto) 1.45 0.11-0.59 K/uL Eosinophils # (Auto) 0.05 0-0.5 K/uL Basophils # (Auto) 0.01 0-0.2 K/uL RDW Standard Deviation 57.7 36.4-46.3 fL RDW Coefficient of Variation 17.7 11.5-14.5 % Immature Granulocyte % (Auto) 0.4 % Immature Granulocyte # (Auto) 0.07 0.00-0.02 K/uL Sodium Level 133 136-145 mmol/L Potassium Level 4.3 3.5-5.1 mmol/L Chloride Level 104 98-107 mmol/L Carbon Dioxide Level 19 21-32 mmol/L Anion Gap 10.0 3-11 mmol/L Blood Urea Nitrogen 97 7-18 mg/dl Creatinine 5.31 0.60-1.20 mg/dl Est Creatinine Clear Calc Drug Dose 11.6 ml/min Estimated GFR () 9.6 Estimated GFR (Non- 8.2 BUN/Creatinine Ratio 18.3 10-20 Random Glucose 161 70-99 mg/dl Calcium Level 8.8 8.5-10.1 mg/dl Magnesium Level 1.7 1.8-2.4 mg/dl Total Bilirubin 0.9 0.2-1 mg/dl Direct Bilirubin 0.4 0-0.2 mg/dl Aspartate Amino Transf (AST/SGOT) 71 15-37 U/L Alanine Aminotransferase (ALT/SGPT) 51 12-78 U/L Alkaline Phosphatase 105 45-117 U/L Troponin I < 0.015 0-0.045 ng/ml Total Protein 6.9 6.4-8.2 gm/dl Albumin 2.7 3.4-5.0 gm/dl Ethyl Alcohol mg/dL < 3.0 0-3 mg/dl Impression Resuscitation Status
[2017-11-23] MEDS: SODIUM CHLORIDE 0.9% 1000ML 1,000 ML IV STA ×2 (03:21→06:15)
--- NOTE | 2017-11-23 03:48 | EMERGENCY ROOM VISIT NOTE ---
History Report prepared by Mason: Lee Ann Fuentes Under the Supervision of: Dr. John Jeffers M.D. First contact with patient: 01:37 Chief Complaint: SYNCOPE Stated Complaint: SYNCOPE/FALL History of Present Illness The patient is a 57 year old female who presents to the Emergency Room with complaints of a resolved syncopal episode that occurred prior to arrival. The patient has been seen in the Emergency Department for the past 3 days for persistent fevers that seem to occur in the afternoon. Today, she took some Oxycodone to help her fall asleep. She reports that today while she was in the bathroom she had a syncopal event, noting she lost consciousness. The patient does not remember how long she was unconscious or if she hit herself when she fell. She denies having any neck pain. The patient had a colostomy in the past. She denies any history of kidney problems, consuming alcohol on a daily basis, or doing drugs. Source of History: patient Onset: prior to arrival Position: other (global) Quality: other (syncopal episode) Timing: other (persistent) Associated Symptoms: + LOC, No neck pain Review of Systems See HPI for pertinent positives & negatives. A total of 10 systems reviewed and were otherwise negative. Past Medical & Surgical Medical Problems: (1) Abdominal pain (2) Abdominal pain (3) Acute renal failure (4) Acute renal insufficiency (5) Asthma, Unspecified (6) Chronic Kidney Disease, Stage Iv (Severe) (7) Clostridium difficile diarrhea (8) Diab Raeann Wo Compl, Type Ii Or Unspec Type, Uncontrolled (9) Fever (10) HTN (hypertension) (11) Hyperlipidemia Nec/Nos (12) Immunosuppressed status (13) Klebsiella sepsis (14) Pancreatitis (15) Polycystic Kidney, Unspecified Type (16) SBO (small bowel obstruction) (17) SIRS (systemic inflammatory response syndrome) Surgical Problems: (1) Kidney transplant recipient (2) Kidney Transplant Status Family History Breast cancer Diabetes mellitus Heart disease Kidney disease Kidney stones Social History Smoking Status: Former Smoker Alcohol Use: none Drug Use: none Marital Status: Housing Status: lives with family Occupation Status: employed Current/Historical Medications Scheduled Azelastine HCl (Azelastine HCl), 1 SPRAYS АНДРЕЙ DAILY Biotin (Biotin 5000), 5,000 MCG PO QAM Calcium W/ Vitamins D & K (Calcium + D + K), 1 TABLET PO MWF Carvedilol (Carvedilol), 3.125 MG PO QAM Carvedilol (Carvedilol), 12.5 MG PO QPM Cyclosporine (Neoral), 25 MG PO BID Cyclosporine Modified (For Rex (Cyclosporine Modified), 50 MG PO BID Estrogens, Conjugated (Premarin), 0.625 MG PO 2XWK Insulin Detemir (Levemir Flextouch), 8 UNITS SC PM Multivitamin (Multivitamin), 1 TAB PO QAM Ondasetron Odt (Zofran Odt), 4 MG SL TID Pantoprazole (Pantoprazole Sodium), 1 TAB PO DAILY Polysaccharide Iron Complex (Ferrex 150), 150 MG PO QPM Pramipexole (Mirapex), 0.125 MG PO HS Prednisone (Prednisone), 2.5 MG PO QAM Sirolimus (Rapamune), 1 MG PO QAM Venlafaxine Hcl (Effexor), 1 TAB PO HS Scheduled PRN Acetamin/Butalbital/Caffeine (Fioricet), 1 TAB PO Q4 PRN for Headache Epoetin Kvng (Procrit), 1 DOSE INJ WK PRN for ANEMIA Ondansetron (Ondansetron HCl), 1 TAB PO BID PRN for Nausea or Vomiting Allergies Coded Allergies: Iodinated Diagnostic Agents (Verified Allergy, Severe, Hx Kidney Transplant, 11/23/17) Statins (Verified Allergy, Severe, "PANCREATITIS", 11/23/17) Sumatriptan (Verified Allergy, Severe, seizure, 11/23/17) Hydrochlorothiazide (Verified Allergy, Mild, 11/23/17) Sulfa Antibiotics (Verified Allergy, Mild, ., 11/23/17) Triamterene (Verified Allergy, Mild, 11/23/17) Atorvastatin (Verified Allergy, Unknown, ?, 11/23/17) Doxycycline (Verified Allergy, Unknown, UNKNOWN, 11/23/17) Levofloxacin (Verified Allergy, Unknown, joint pain, 11/23/17) Adhesives (Verified Adverse Reaction, Unknown, SKIN TEAR, 11/23/17) Ciprofloxacin (Verified Adverse Reaction, Unknown, FATIGUE, 11/23/17) Morphine (Verified Adverse Reaction, Unknown, INEFFECTIVE, 11/23/17) Physical Exam Vital Signs Date Time Temp Pulse Resp B/P (MAP) Pulse Ox O2 Delivery O2 Flow Rate FiO2 11/23/17 07:37 60 14 91/47 96 Room Air 11/23/17 06:11 59 18 102/54 95 Room Air 11/23/17 05:11 60 18 89/48 94 Room Air 11/23/17 04:15 67 11/23/17 04:00 64 18 94/54 95 Room Air 11/23/17 03:21 69 18 99/54 94 Room Air 11/23/17 01:42 75 11/23/17 01:39 36.9 81 18 118/60 96 Room Air Physical Exam GENERAL: Patient is unwell appearing and in minimal acute distress. HEENT: Abrasions over right face next to eye. Mucous membranes moist, no nasal congestion, no scleral icterus. NECK: In cervical coral. No midline tenderness. No stridor, no adenopathy, no meningismus, trachea is midline. LUNGS: No dyspnea. Clear to auscultation and equal bilaterally. No wheeze, no rhonchi. HEART: Regular rate and rhythm. No murmurs, rubs, gallops appreciated. ABDOMEN: Enlarged liver vc mesh over right upper quadrant with extensive surgical scarring. No peritonitis. BACK: No midline tenderness, no CVA tenderness EXTREMITIES: Deformity of distal left forearm with tenderness to palpation. Normal motion all extremities, no cyanosis, no edema. NEUROLOGIC: Alert and oriented, no acute motor or sensory deficits, no focal weakness, cranial nerves grossly intact. SKIN: No rash, no jaundice, no diaphoresis. Medical Decision & Procedures ER Provider Diagnostic Interpretation: Radiology results and stated below per my review and radiologist interpretation: Chest: 1 view: No infiltrate, no effusion, normal cardiac border. Unchanged from the other day. Forearm: 2 view: Left forearm distal both bone form fracture at the wrist with [address] SPINE: Straightening of the cervical spine. No evidence of acute fracture or subluxation. Radiologist: Matt Ortiz M.D. CT HEAD: Acute right zygomaticomaxillary complex fracture consisting of medially angulated fracture of the right zygomatic arch, fractures of the lateral reddy of the right orbit and right maxillary sinus, and diastases of the right zygomaticofrontal suture. Blood layers in the right maxillary sinus. No ICH, mass effect, or edema. Involutional and chronic small vessel ischemic changes. Radiologist: Matt Ortiz M.D. Laboratory Results 11/23/17 01:25 Red Blood Count 3.46, Mean Corpuscular Volume 89.3, Mean Corpuscular Hemoglobin 28.9, Mean Corpuscular Hemoglobin Concent 32.4, Mean Platelet Volume 10.3, Neutrophils (%) (Auto) 82.4, Lymphocytes (%) (Auto) 7.6, Monocytes (%) (Auto) 9.2, Eosinophils (%) (Auto) 0.3, Basophils (%) (Auto) 0.1, Neutrophils # (Auto) 13.00, Lymphocytes # (Auto) 1.20, Monocytes # (Auto) 1.45, Eosinophils # (Auto) 0.05, Basophils # (Auto) 0.01 11/23/17 01:25 Test 11/23/17 01:25 11/23/17 02:03 11/23/17 02:08 11/23/17 02:40 White Blood Count 15.78 K/uL (4.8-10.8) Red Blood Count 3.46 M/uL (4.2-5.4) Hemoglobin 10.0 g/dL (12.0-16.0) Hematocrit 30.9 % (37-47) Mean Corpuscular Volume 89.3 fL (80-100) Mean Corpuscular Hemoglobin 28.9 pg (25-34) Mean Corpuscular Hemoglobin Concent 32.4 g/dl (32-36) Platelet Count 178 K/uL (130-400) Mean Platelet Volume 10.3 fL (7.4-10.4) Neutrophils (%) (Auto) 82.4 % Lymphocytes (%) (Auto) 7.6 % Monocytes (%) (Auto) 9.2 % Eosinophils (%) (Auto) 0.3 % Basophils (%) (Auto) 0.1 % Neutrophils # (Auto) 13.00 K/uL (1.4-6.5) Lymphocytes # (Auto) 1.20 K/uL (1.2-3.4) Monocytes # (Auto) 1.45 K/uL (0.11-0.59) Eosinophils # (Auto) 0.05 K/uL (0-0.5) Basophils # (Auto) 0.01 K/uL (0-0.2) RDW Standard Deviation 57.7 fL (36.4-46.3) RDW Coefficient of Variation 17.7 % (11.5-14.5) Immature Granulocyte % (Auto) 0.4 % Immature Granulocyte # (Auto) 0.07 K/uL (0.00-0.02) Anion Gap 10.0 mmol/L (3-11) Est Creatinine Clear Calc Drug Dose 11.6 ml/min Estimated GFR () 9.6 Estimated GFR (Non- 8.2 BUN/Creatinine Ratio 18.3 (10-20) Calcium Level 8.8 mg/dl (8.5-10.1) Magnesium Level 1.7 mg/dl (1.8-2.4) Total Bilirubin 0.9 mg/dl (0.2-1) Direct Bilirubin 0.4 mg/dl (0-0.2) Aspartate Amino Transf (AST/SGOT) 71 U/L (15-37) Alanine Aminotransferase (ALT/SGPT) 51 U/L (12-78) Alkaline Phosphatase 105 U/L (45-117) Troponin I < 0.015 ng/ml (0-0.045) Total Protein 6.9 gm/dl (6.4-8.2) Albumin 2.7 gm/dl (3.4-5.0) Bedside Glucose 166 mg/dl (70-90) Ethyl Alcohol mg/dL < 3.0 mg/dl (0-3) Prothrombin Time 11.1 SECONDS (9.0-12.0) Prothromb Time International Ratio 1.1 (0.9-1.1) Activated Partial Thromboplast Time 34.8 SECONDS (21.0-31.0) Partial Thromboplastin Ratio 1.3 Test 11/23/17 03:00 11/23/17 06:10 Urine Color YELLOW Urine Appearance CLOUDY (CLEAR) Urine pH 5.0 (4.5-7.5) Urine Specific [place] 1.017 (1.000-1.030) Urine Protein 1+ (NEG) Urine Glucose (UA) NEG (NEG) Urine Ketones NEG (NEG) Urine Occult Blood 2+ (NEG) Urine Nitrite NEG (NEG) Urine Bilirubin NEG (NEG) Urine Urobilinogen NEG (NEG) Urine Leukocyte Esterase MODERATE (NEG) Urine WBC (Auto) 10-30 /hpf (0-5) Urine RBC (Auto) 0-4 /hpf (0-4) Urine Hyaline Casts (Auto) 5-10 /lpf (0-5) Urine Epithelial Cells (Auto) >30 /lpf (0-5) Urine Bacteria (Auto) 1+ (NEG) Urine Yeast (Auto) (NONE PRSENT) Urine Opiates Screen NEG (NEG) Urine Methadone, Qualitative NEG (NEG) Urine Barbiturates POS (NEG) Urine Phencyclidine (PCP) Level NEG (NEG) Ur Amphetamine/Methamphetamine NEG (NEG) MDMA (Ecstasy) Screen NEG (NEG) Urine Benzodiazepines Screen NEG (NEG) Urine Cocaine Metabolite NEG (NEG) Urine Marijuana (THC) POS (NEG) Lactic Acid Level 0.2 mmol/L (0.4-2.0) Laboratory results as reviewed by me. Medications Administered Medications (Trade) Dose Ordered Sig/Dominique Route Start Time Stop Time Status Last Admin Dose Admin Sodium Chloride 1,000 ml @ 125 mls/hr Q8H STAT IV 11/23/17 02:43 11/23/17 09:52 DC 11/23/17 03:21 125 MLS/HR Ondansetron HCl (Zofran Inj) 4 mg NOW STAT IV 11/23/17 02:44 11/23/17 02:45 DC 11/23/17 02:44 4 MG Hydromorphone HCl (Dilaudid Inj) 1 mg NOW STAT IV 11/23/17 03:30 11/23/17 03:32 DC 11/23/17 04:01 1 MG Sodium Chloride 500 ml @ 999 mls/hr Q31M STAT IV 11/23/17 03:47 11/23/17 04:17 DC 11/23/17 04:02 999 MLS/HR Sodium Chloride 500 ml @ 999 mls/hr Q31M STAT IV 11/23/17 05:13 11/23/17 05:43 DC 11/23/17 05:13 999 MLS/HR Piperacillin Sod/ Tazobactam Sod (Zosyn Iv) 4.5 gm NOW STAT IV 11/23/17 06:00 11/23/17 06:02 DC 11/23/17 06:24 4.5 GM Sodium Chloride 1,000 ml @ 999 mls/hr Q1H1M STAT IV 11/23/17 06:01 11/23/17 07:01 DC 11/23/17 06:15 999 MLS/HR Hydrocortisone Sodium Succinate (Solu-Cortef IV) 100 mg NOW STAT IV 11/23/17 06:07 11/23/17 06:08 DC 11/23/17 06:24 100 MG ECG Per My Interpretation Indication: syncope Rate (beats per minute): 164 Rhythm: normal sinus Findings: no acute ischemic change, no ectopy ED Course 0139: The patient was evaluated in room A9. A complete history and physical exam was performed. 0205: I reevaluated the patient, who is getting labs. Her is at bed side , who states that she has been having fevers which come and go, but mostly in the afternoons. 0330: I reevaluated the patient, who is awake. She is requesting medication for pain. She notes that Dilaudid has worked for her in the past. 0342: Discussed the patient's case with Dr. Phillips- [facility] in [place]. He accepted to have the patient transfer to their facility. 0356: I reevaluated the patient and updated her and her on test findings and the treatment plan. They verbalized complete understanding and agreement. The patient is awaiting to be transferred. 0603: I reevaluated the patient. Her heart rate is in the 80's. Asked nurses to obtain blood cultures and lactic acid. Patient is agreeable to being on antibiotic therapy. 0625: I reevaluated the patient. Her heartbeat has increased. She will be transferred in about an hour or so. Medical Decision Differential: Vaso-vagal, Intracerebral Event, Neurologic, Infectious, Volume Deficiency, Hypoglycemia, Electrolyte Abnormality, Cardiac Source, Toxicologic, amongst other pathologies entertained. 57 yr old female with complex PMH arrives for evaluation s/p syncope. Renal transplant 17 yrs ago and on cyclosporin, prednisone, and rapamune for anti- rejection. Notes UTI a few weeks ago tx with abx. Then 5-6 days ago increasing fatigue, weakness, and fevers in evenings. Seen last 2 days in ED for evaluation of fever and given fluids and offered admission, LP, further work -up but declined. She passed out and EMS was called this evening. Injuries found to left forearm and face with complex right facial fracture. Full ROM eyes without evidence of entrapment from orbital fracture. Left forearm/wrist fracture is moderately angulated but given syncope, renal failure and other issues would not feel comfortable sedating this patient at this time which I made clear to patient and . No evidence cervical fracture. GCS 15 with no neck TTP thus removed cervical collar. No abdominal TTP nor evidence of intraabdominal injury. CXR clear. EKG unremarkable. Labs with increasing Cr consistent with acute worsening of her chronic renal failure in transplant patient. She follows with [facility] for her transplant care and given acute failure she needs to be at a higher level of care than this facility (discussed this with Dr Herrera, Hospitalist as well). WBC is increasing as well though blood cultures remain negative from other day and she has no fever currently. UA appears more contaminated. Recent cdiff was negative. She has soft, non- tender abdomen. Will defer abx at this time as no clear source of infection. Mild drop in bicarb which is likely dehydration related and given extra bolus NSS. While awaiting transfer patient with gradually trending down BPs. With SBP in 80s felt further aggressive management necessary given recent fevers, WBC elevation and multiple immune suppressants. Patient given further IV bolus, blood cultures obtained, lactic acid ordered (initial failed), and Zosyn ordered along with stress dose hydrocortisone. She was very hesitant to starting abx given her cdiff history though I made it clear she is starting to show signs of sepsis and that early treatment the better. Patient and understand the severity of this issue. [] Head Trauma GCS Score: 15 Medication Reconcilliation Current Medication List: was personally reviewed by me Blood Pressure Screening Patient's blood pressure: Normal blood pressure Blood pressure disposition: Did not require urgent referral Consults Time Called: 341 Consulting Physician: Dr. Estefani Cisneros [facility] in [place] Returned Call: 341 Discussed the patient's case with Dr. Estefani Cisneros [facility] in [place]. He accepted to have the patient transfer to their facility. Impression Primary Impression: Syncope and collapse Additional Impressions: Acute on chronic renal failure Renal transplant rejection Dehydration Fracture of zygomaticomaxillary complex Forearm fractures, both bones, closed Scribe Attestation The scribe's documentation has been prepared under my direction and personally reviewed by me in its entirety. I confirm that the note above accurately reflects all work, treatment, procedures, and medical decision making performed by me. Departure Information Dispostion Transfer Acute Care Facility Referrals No Doctor, Assigned (PCP) Forms HOME CARE DOCUMENTATION FORM, IMPORTANT VISIT INFORMATION Patient Instructions My [facility] Problem Qualifiers
[2017-11-23] MEDS: HYDROmorphone INJ 1 MG/ML SYR IV STA (04:01)
[2017-11-23] MEDS: SODIUM CHLORIDE 0.9% 500ML 500 ML IV STA ×2 (04:02→05:13)
[2017-11-23] MEDS: HYDROCORTISONE SOD SUCCINATE 100 MG/2 ML VIAL IV STA (06:24)
[2017-11-23] MEDS: PIPERACILLIN/TAZOBACTAM 4.5 GM/100ML D5W IV STA (06:24)
--- NOTE | 2017-11-23 06:42 | DIAGNOSTIC IMAGING REPORT ---
L FOREARM 2 VIEWS ROUTINE HISTORY: 57 years-old Female left distal forarm injury s/p fall acute left arm pain status post fall COMPARISON: None available TECHNIQUE: 2 views of the left forearm FINDINGS: There is an acute minimally impacted nondisplaced fracture of the distal ulnar metaphysis with mild cortical buckling. No significant angulation. Additionally, there is an acute transversely oriented fracture of the distal radial metaphysis with mild impaction and approximately 26 degrees apex volar angulation with 3 mm dorsal cortical buckling. Moderate soft tissue swelling about the distal wrist and forearm. The bones appear osteopenic. Mild radiocarpal and triscaphe osteoarthritis. There is ill-defined cortical lucency involving the proximal pole scaphoid with a small bone fragment noted along the dorsal wrist on the lateral view. Peripheral vascular disease. IMPRESSION: 1. Acute mildly impacted fractures of the distal radial and ulnar metaphyses. The distal radial fracture demonstrates mild angulation and displacement as above. 2. Ill-defined cortical lucency involving the proximal pole scaphoid with small bone fragments about the dorsal wrist on the lateral view. Correlate with dedicated wrist radiographs to exclude carpal fracture. 3. Osteopenic appearance of the bones. 4. Peripheral vascular disease. The above report was generated using voice recognition software. It may contain grammatical, syntax or spelling errors. Electronically signed by: Alberto Tillman M.D. 11/23/2017 6:40 AM Dictated Date/Time: 11/23/2017 6:37 AM
--- NOTE | 2017-11-23 06:46 | DIAGNOSTIC IMAGING REPORT ---
CHEST ONE VIEW PORTABLE HISTORY: 57 years-old Female AMS acutely altered mental status COMPARISON: Chest radiographs 11/20/2017 TECHNIQUE: Portable AP view of the chest FINDINGS: Cardiac silhouette is upper limits of normal in size, unchanged. Atherosclerosis of the aorta. No pneumothorax, pleural effusion, focal airspace consolidation or overt pulmonary edema. The lung bases are partially obscured secondary to bilateral calcified breast implants. The bones of the chest appear to be grossly intact. IMPRESSION: No acute process. The above report was generated using voice recognition software. It may contain grammatical, syntax or spelling errors. Electronically signed by: Alberto Tillman M.D. 11/23/2017 6:44 AM Dictated Date/Time: 11/23/2017 6:43 AM
--- NOTE | 2017-11-23 07:01 | DIAGNOSTIC IMAGING REPORT ---
CERVICAL SPINE W/O CLINICAL HISTORY: 57 years-old Female with syncope with right head injury. Acute syncope with head and neck injury COMPARISON: CT head of same day. TECHNIQUE: Multiple axial CT images of the cervical spine were obtained without contrast. A dose lowering technique was utilized adhering to the principles of ALARA. FINDINGS: There is straightening of the normal cervical lordosis. Moderate intervertebral disc space narrowing with posterior disc osteophyte complex formation noted at C5-C6. Mild multilevel endplate spurring and facet arthropathy. Partially calcified degenerative pannus noted posterior to odontoid process measuring up to 3 mm in AP dimension. No acute fracture or subluxation. No definite high-grade central canal or foraminal narrowing, however the central canal and foramen are better assessed by MRI. Mastoid air cells on the right are clear. Moderate left mastoid effusion. Fractures of the posterior right maxillary wall and right zygomatic arch are noted with layering hemorrhage of the right maxillary sinus. Mild mucosal thickening of the left maxillary sinus. Soft tissues are unremarkable. IMPRESSION: 1. No acute fracture or subluxation of the cervical spine. 2. Mild straightening of the normal cervical lordosis may be secondary to positioning or paraspinal muscle spasm. 3. Moderate intervertebral disc space narrowing with broad-based posterior disc osteophyte complex formation at C5-C6. Mild multilevel endplate spurring with facet arthropathy. 4. Acute angulated fractures of the right posterior maxillary wall and right second hepatic arch are better seen on CT head study of same day. The above report was generated using voice recognition software. It may contain grammatical, syntax or spelling errors. Electronically signed by: Alberto Tillman M.D. 11/23/2017 6:59 AM Dictated Date/Time: 11/23/2017 6:53 AM
--- NOTE | 2017-11-23 07:11 | DIAGNOSTIC IMAGING REPORT ---
CT OF THE HEAD WITHOUT CONTRAST CLINICAL HISTORY: Syncope, right head injury. COMPARISON STUDY: No previous studies for comparison. CT DOSE: 950.20 mGy.cm TECHNIQUE: Helical axial images of the head were obtained without IV contrast. Automated exposure control was utilized for the study. A dose lowering technique was utilized adhering to the principles of ALARA. FINDINGS: No acute intracranial hemorrhage, midline shift or mass effect is present. There is mild atrophy. Ventricular system is unremarkable. Basilar cisterns are patent. There are no extra axial collections. Jane-white differentiation is maintained. There is an air-fluid level with hemorrhage within the right maxillary sinus. There is a medially angulated fracture of the right zygomatic arch as well as a fracture of the lateral wall of the right orbit and right maxillary sinus. Note is made of diastases versus fracture of the right zygomaticofrontal suture. Addition, there is a nondisplaced fracture through posterior right zygoma. IMPRESSION: 1. Acute right zygomaticomaxillary complex fractures consisting of fractures of the right zygomatic arch, lateral wall of the right orbit and right maxillary sinus and diastases of the right zygomaticofrontal suture. Air-fluid level with hemorrhage within the right maxillary sinus. 2. No acute intracranial findings. Electronically signed by: Benito Hunt M.D. 11/23/2017 7:10 AM Dictated Date/Time: 11/23/2017 7:04 AM
[2017-11-23 07:37] VITALS: BP 91/47; PULSE 60; O2SAT 96
== END 2017-11-23 08:05 | disposition short-term general hospital (02) ==
LOC: EDBD 01:30 → C.EDA 01:33
DX: R55 Syncope and collapse (principal); N18.9 Chronic kidney disease, unspecified; T86.91 Unspecified transplanted organ and tissue rejection; E86.0 Dehydration; S02.402B Zygomatic fracture, unspecified side, initial encounter for open fracture; S52.90XA Unspecified fracture of unspecified forearm, initial encounter for closed fracture; X58.XXXA Exposure to other specified factors, initial encounter; J45.909 Unspecified asthma, uncomplicated; E11.9 Type 2 diabetes mellitus without complications; I10 Essential (primary) hypertension; E78.5 Hyperlipidemia, unspecified; R65.10 Systemic inflammatory response syndrome (SIRS) of non-infectious origin without acute organ dysfunction; Z83.3 Family history of diabetes mellitus; Z82.49 Family history of ischemic heart disease and other diseases of the circulatory system; Z87.891 Personal history of nicotine dependence; Z88.8 Allergy status to other drugs, medicaments and biological substances

== ENCOUNTER → 2017-12-15 | Outpatient (CLI) | payer BC | END | disposition home or self-care (01) | LOC: C.RDSM 14:24 | PROVIDERS: ATTEND Physical Medicine & Rehabilitation Sports Medicine | DX: S62.102A Fracture of unspecified carpal bone, left wrist, initial encounter for closed fracture (principal); X58.XXXA Exposure to other specified factors, initial encounter ==

== ENCOUNTER → 2018-01-01 | Outpatient (CLI) | payer BC ==
--- NOTE | 2018-01-01 11:41 | DIAGNOSTIC IMAGING REPORT ---
LEFT WRIST 5 VIEWS HISTORY: Follow-up left wrist fracture. TRAUMATIC ARTHROPATHY LEFT WRIST COMPARISON: Left wrist 12/15/2017. FINDINGS: Overlying cast material results in suboptimal evaluation of the left wrist fractures. Redemonstration of the impacted comminuted distal radius fracture. This demonstrates multiple large displacement. Distal ulnar fractures also identified. There appears to be a fracture within the proximal scaphoid. These fractures demonstrate increased sclerosis suggestive of interval healing. The alignment remains unchanged. IMPRESSION: Healing distal radius, distal ulnar, and scaphoid fractures. The alignment appears similar to the prior study. Overall, there is suboptimal evaluation of the fractures due to the overlying cast material. Electronically signed by: Caden Garibay M.D. 01/01/2018 11:40 AM Dictated Date/Time: 01/01/2018 11:38 AM
== END | disposition home or self-care (01) ==
LOC: C.RDSM 11:05
PROVIDERS: ATTEND Physician Assistant
DX: M12.532 Traumatic arthropathy, left wrist (principal); S52.502D Unspecified fracture of the lower end of left radius, subsequent encounter for closed fracture with routine healing; S52.602D Unspecified fracture of lower end of left ulna, subsequent encounter for closed fracture with routine healing; S62.035D Nondisplaced fracture of proximal third of navicular [scaphoid] bone of left wrist, subsequent encounter for fracture with routine healing; X58.XXXD Exposure to other specified factors, subsequent encounter

== ENCOUNTER → 2018-01-15 | Outpatient (CLI) | payer BC ==
[~2018-01-15] MED LIST changes: +MAGN1CAP2 PO; +OXYC1CAP5 PO; +PROP20TA67 PO; +RIZA5TAB10 PO
== END | disposition home or self-care (01) ==
LOC: C.RDSM 17:45
PROVIDERS: ATTEND Physical Medicine & Rehabilitation Sports Medicine
DX: M12.532 Traumatic arthropathy, left wrist (principal)

== ENCOUNTER 2018-01-20 19:55 | Emergency (ER) | payer BC ==
[~2018-01-20] VITALS: Ht 172.7 cm; Wt 65.5 kg
[~2018-01-20 19:55] MED LIST changes: -INSU3INJ3 SC; +INSU3INJ3 SQ; -MAGN1CAP2 PO; -OXYC1CAP5 PO; -PROP20TA67 PO; -RIZA5TAB10 PO
[2018-01-20 19:59] VITALS: TEMP 36.5; Ht 172.7 cm; Wt 65.5 kg
[2018-01-20] MEDS ORDERED: ONDANSETRON INJ 2 MG/ML 2 ML VIAL IV STA (20:10)
[2018-01-20] MEDS ORDERED: SODIUM CHLORIDE 0.9% 1000ML 1,000 ML IV STA (20:10)
[2018-01-20] MEDS ORDERED: HYDROmorphone INJ 1 MG/ML SYR IV STA (20:12)
[2018-01-20 20:28] LABS: BASO % 0.1 %; BASO ABS # 0.01 K/uL (0-0.2); EOS % 0.1 %; EOS ABS # 0.01 K/uL (0-0.5); HEMATOCRIT 44.8 % (37-47); HEMOGLOBIN 14.6 g/dL (12.0-16.0); IG# 0.01 K/uL (0.00-0.02); LYMPH % 23.6 %; LYMPH ABS # 1.95 K/uL (1.2-3.4); MEAN CELL VOLUME 95.1 fL (80-100); MEAN CORPUSCULAR HGB CONC 32.6 g/dl (32-36); MEAN PLATELET VOLUME 9.1 fL (7.4-10.4); MONO % 7.3 %; NEUT % 68.8 %; NEUT ABS # 5.68 K/uL (1.4-6.5); PLATELET COUNT 288 K/uL (130-400); RED CELL DISTRIBUTION WIDTH CV 16.9 % (11.5-14.5); RED CELL DISTRIBUTION WIDTH SD 59.2 fL (36.4-46.3); WHITE BLOOD COUNT 8.26 K/uL (4.8-10.8)
[2018-01-20] MEDS ORDERED: HYDROmorphone INJ 0.5 MG/0.5 ML SYR IV STA (20:40)
[2018-01-20 20:50] LABS: ALBUMIN 3.8 gm/dl (3.4-5.0); CALCIUM 9.8 mg/dl (8.5-10.1); CREATININE 2.03 mg/dl (0.60-1.20)
[2018-01-20 20:53] LABS: TOTAL PROTEIN 9.5 gm/dl (6.4-8.2)
[2018-01-20] MEDS ORDERED: RIZA5TAB10 PO (21:01)
[2018-01-20] MEDS ORDERED: PROP20TA67 PO (21:01)
[2018-01-20] MEDS ORDERED: OXYC1CAP5 PO (21:01)
[2018-01-20] MEDS ORDERED: MAGN1CAP2 PO (21:01)
--- NOTE | 2018-01-20 21:32 | DIAGNOSTIC IMAGING REPORT ---
ABD/PELVIS NO IV OR ORAL CONT CT DOSE: 269.68 mGy.cm HISTORY: Pain ? sbo severe pain w/ vomiting TECHNIQUE: Multiaxial CT images of the abdomen and pelvis were performed without contrast. A dose lowering technique was utilized adhering to the principles of ALARA. COMPARISON STUDY: 04/16/2007 FINDINGS: Right pleural reactive changes left base. Lung bases otherwise are clear. There is a small chronic pericardial effusion. Multiple hepatic cysts are noted probably slightly progressive from the prior study. Spleen is uniform. There is a very small hiatal hernia. There are findings of a prior cholecystectomy and bilateral [May. There is a low left hemipelvic renal transplant unchanged from the prior study. There are surgical findings of a partial colectomy. There are findings of a mild nonobstructive generalized bowel ileus. No true obstructive characteristics are identified. There is no evidence of free intraperitoneal air or air within the bowel wall. There is trace amount of free fluid within the pelvic cul-de-sac. This is unchanged. The bladder is midline. IMPRESSION: 1. Mild increase in fecal load within the colon consistent with a component of fecal stasis. 2. Operative changes consistent with prior partial colectomy, bilateral nephrectomy, and cholecystectomy. 3. Stable to slightly progressive hepatic cysts. 4. Small stable pericardial effusion. 5. Mild nonobstructive ileus. The above report was generated using voice recognition software. It may contain grammatical, syntax or spelling errors. Electronically signed by: Jonas Deluca M.D. 01/20/2018 9:31 PM Dictated Date/Time: 01/20/2018 9:24 PM
[2018-01-20 21:53] VITALS: BP 166/99; PULSE 67; O2SAT 93
--- NOTE | 2018-01-21 00:20 | EMERGENCY ROOM VISIT NOTE ---
History Report prepared by Mason: Janeth Min Under the Supervision of: Dr. Garland Small D.O. First contact with patient: 20:03 Chief Complaint: ABDOMINAL PAIN Stated Complaint: POSSIBLE BOWL BLOCKAGE History of Present Illness The patient is a 58 year old female who presents to the Emergency Room with complaints of extreme abdominal pain beginning at 1300 today. She notes she was eating fruit when her sharp abdominal pain began suddenly. She thinks she has a bowel obstruction due to her history of blockages in the past. She also states eating fruit is a worsening factor. Pain is a 10 out of 10. Pulling her legs into her chest does help improve the pain. No other exacerbating or remitting factors. She did receive dialysis earlier today. The patient is also vomiting which she notes began a few hours relief captain. Her last bowel movement was yesterday. She has had a nephrectomy, hernia surgeries, cholecystectomy and 2 C-sections. Pt denies fevers, chest pain, shortness of breath, diarrhea, pain with urination , and melena. Source of History: patient Onset: 1300 today Symptom Intensity: extreme Quality: sharp Modifying Factors (Worsening): other (fruit) Associated Symptoms: + vomiting, No fevers, No chest pain, No SOB, No melena , No diarrhea, No urinary symptoms Review of Systems See HPI for pertinent positives & negatives. A total of 10 systems reviewed and were otherwise negative. Past Medical & Surgical Medical Problems: (1) Abdominal pain (2) Abdominal pain (3) Acute renal failure (4) Acute renal insufficiency (5) Asthma, Unspecified (6) Chronic Kidney Disease, Stage Iv (Severe) (7) Clostridium difficile diarrhea (8) Diab Raeann Wo Compl, Type Ii Or Unspec Type, Uncontrolled (9) Fever (10) HTN (hypertension) (11) Hyperlipidemia Nec/Nos (12) Immunosuppressed status (13) Klebsiella sepsis (14) Pancreatitis (15) Polycystic Kidney, Unspecified Type (16) SBO (small bowel obstruction) (17) SIRS (systemic inflammatory response syndrome) Surgical Problems: (1) Kidney transplant recipient (2) Kidney Transplant Status Family History Breast cancer Diabetes mellitus Heart disease Kidney disease Kidney stones Social History Smoking Status: Never Smoker Alcohol Use: none Drug Use: none Marital Status: Housing Status: lives with family Occupation Status: employed Current/Historical Medications Scheduled Biotin (Biotin 5000), 5,000 MCG PO QAM Calcium W/ Vitamins D & K (Calcium + D + K), 1 TABLET PO MWF Carvedilol (Carvedilol), 3.125 MG PO QAM Carvedilol (Carvedilol), 12.5 MG PO QPM Cyclosporine (Neoral), 25 MG PO BID Estrogens, Conjugated (Premarin), 0.625 MG PO 2XWK Insulin Detemir (Levemir Flextouch), 10 UNITS SC PM Magnesium Oxide (Mg Supplement (Magnesium), 400 MG PO BID Multivitamin (Multivitamin), 1 TAB PO QAM Oxycodone Hcl (Oxycodone Hcl), 5 MG PO Q4 Pantoprazole (Pantoprazole Sodium), 1 TAB PO DAILY Polysaccharide Iron Complex (Ferrex 150), 150 MG PO QPM Pramipexole (Mirapex), 0.125 MG PO HS Prednisone (Prednisone), 2.5 MG PO QAM Propranolol (Inderal), 20 MG PO AMPM Venlafaxine Hcl (Effexor), 56.25 TAB PO HS Scheduled PRN Acetamin/Butalbital/Caffeine (Fioricet), 1 TAB PO Q4 PRN for Headache Epoetin Kvng (Procrit), 1 DOSE INJ WK PRN for ANEMIA Rizatriptan Benzoate (Maxalt), 5 MG PO UD PRN for Migraine Allergies Coded Allergies: Iodinated Diagnostic Agents (Verified Allergy, Severe, Hx Kidney Transplant, 01/20/18) Statins (Verified Allergy, Severe, "PANCREATITIS", 01/20/18) Sumatriptan (Verified Allergy, Severe, seizure, 01/20/18) Hydrochlorothiazide (Verified Allergy, Mild, 01/20/18) Sulfa Antibiotics (Verified Allergy, Mild, ., 01/20/18) Triamterene (Verified Allergy, Mild, 01/20/18) Atorvastatin (Verified Allergy, Unknown, ?, 01/20/18) Doxycycline (Verified Allergy, Unknown, UNKNOWN, 01/20/18) Levofloxacin (Verified Allergy, Unknown, joint pain, 01/20/18) Adhesives (Verified Adverse Reaction, Unknown, SKIN TEAR, 01/20/18) Ciprofloxacin (Verified Adverse Reaction, Unknown, FATIGUE, 01/20/18) Morphine (Verified Adverse Reaction, Unknown, INEFFECTIVE, 01/20/18) Physical Exam Vital Signs Date Time Temp Pulse Resp B/P (MAP) Pulse Ox O2 Delivery O2 Flow Rate FiO2 01/20/18 21:53 67 18 166/99 93 Room Air 01/20/18 19:59 36.5 77 28 164/88 95 Room Air Physical Exam GENERAL: Sitting up in bed, alert, well nourished, significant distress, non- toxic EYE EXAM: normal conjunctiva. OROPHARYNX: no exudate, no erythema, lips, buccal mucosa, and tongue normal and mucous membranes are moist NECK: supple, no nuchal rigidity, no adenopathy, non-tender LUNGS: Clear to auscultation. Normal chest wall mechanics HEART: no murmurs, S1 normal and S2 normal ABDOMEN: abdomen soft, normo-active bowel sounds, no masses, no rebound or guarding. Abdomen is mildly diffusely tender to palpation. BACK: Back is symmetrical on inspection and there is no deformity, no midline tenderness, no CVA tenderness. SKIN: no rashes and no bruising UPPER EXTREMITIES: upper extremities are grossly normal. LOWER EXTREMITIES: No pitting edema. NEURO EXAM: Normal sensorium, cranial nerves II-XII grossly intact, normal speech, no gross weakness of arms, no gross weakness of legs. Medical Decision & Procedures ER Provider Diagnostic Interpretation: Radiology results as stated below per my review and the radiologist's interpretation: ABD/PELVIS NO IV OR ORAL CONT CT DOSE: 269.68 mGy.cm HISTORY: Pain ? sbo severe pain w/ vomiting TECHNIQUE: Multiaxial CT images of the abdomen and pelvis were performed without contrast. A dose lowering technique was utilized adhering to the principles of ALARA. COMPARISON STUDY: 04/16/2007 FINDINGS: Right pleural reactive changes left base. Lung bases otherwise are clear. There is a small chronic pericardial effusion. Multiple hepatic cysts are noted probably slightly progressive from the prior study. Spleen is uniform. There is a very small hiatal hernia. There are findings of a prior cholecystectomy and bilateral [May. There is a low left hemipelvic renal transplant unchanged from the prior study. There are surgical findings of a partial colectomy. There are findings of a mild nonobstructive generalized bowel ileus. No true obstructive characteristics are identified. There is no evidence of free intraperitoneal air or air within the bowel wall. There is trace amount of free fluid within the pelvic cul-de-sac. This is unchanged. The bladder is midline. IMPRESSION: 1. Mild increase in fecal load within the colon consistent with a component of fecal stasis. 2. Operative changes consistent with prior partial colectomy, bilateral nephrectomy, and cholecystectomy. 3. Stable to slightly progressive hepatic cysts. 4. Small stable pericardial effusion. 5. Mild nonobstructive ileus. The above report was generated using voice recognition software. It may contain grammatical, syntax or spelling errors Electronically signed by: Jonas Deluca M.D. 01/20/2018 9:31 PM Laboratory Results 01/20/18 20:10 Red Blood Count 4.71, Mean Corpuscular Volume 95.1, Mean Corpuscular Hemoglobin 31.0, Mean Corpuscular Hemoglobin Concent 32.6, Mean Platelet Volume 9.1, Neutrophils (%) (Auto) 68.8, Lymphocytes (%) (Auto) 23.6, Monocytes (%) (Auto) 7.3, Eosinophils (%) (Auto) 0.1, Basophils (%) (Auto) 0.1, Neutrophils # (Auto) 5.68, Lymphocytes # (Auto) 1.95, Monocytes # (Auto) 0.60, Eosinophils # (Auto) 0.01, Basophils # (Auto) 0.01 01/20/18 20:10 Test 01/20/18 20:10 01/20/18 21:27 White Blood Count 8.26 K/uL (4.8-10.8) Red Blood Count 4.71 M/uL (4.2-5.4) Hemoglobin 14.6 g/dL (12.0-16.0) Hematocrit 44.8 % (37-47) Mean Corpuscular Volume 95.1 fL (80-100) Mean Corpuscular Hemoglobin 31.0 pg (25-34) Mean Corpuscular Hemoglobin Concent 32.6 g/dl (32-36) Platelet Count 288 K/uL (130-400) Mean Platelet Volume 9.1 fL (7.4-10.4) Neutrophils (%) (Auto) 68.8 % Lymphocytes (%) (Auto) 23.6 % Monocytes (%) (Auto) 7.3 % Eosinophils (%) (Auto) 0.1 % Basophils (%) (Auto) 0.1 % Neutrophils # (Auto) 5.68 K/uL (1.4-6.5) Lymphocytes # (Auto) 1.95 K/uL (1.2-3.4) Monocytes # (Auto) 0.60 K/uL (0.11-0.59) Eosinophils # (Auto) 0.01 K/uL (0-0.5) Basophils # (Auto) 0.01 K/uL (0-0.2) RDW Standard Deviation 59.2 fL (36.4-46.3) RDW Coefficient of Variation 16.9 % (11.5-14.5) Immature Granulocyte % (Auto) 0.1 % Immature Granulocyte # (Auto) 0.01 K/uL (0.00-0.02) Anion Gap 7.0 mmol/L (3-11) Est Creatinine Clear Calc Drug Dose 30.1 ml/min Estimated GFR () 30.3 Estimated GFR (Non- 26.2 BUN/Creatinine Ratio 6.9 (10-20) Calcium Level 9.8 mg/dl (8.5-10.1) Total Bilirubin 0.9 mg/dl (0.2-1) Direct Bilirubin 0.2 mg/dl (0-0.2) Aspartate Amino Transf (AST/SGOT) 21 U/L (15-37) Alanine Aminotransferase (ALT/SGPT) 15 U/L (12-78) Alkaline Phosphatase 151 U/L (45-117) Total Protein 9.5 gm/dl (6.4-8.2) Albumin 3.8 gm/dl (3.4-5.0) Lipase 209 U/L (73-393) Laboratory results per my review. Medications Administered Medications (Trade) Dose Ordered Sig/Dominique Route Start Time Stop Time Status Last Admin Dose Admin Sodium Chloride 1,000 ml @ 999 mls/hr Q1H1M STAT IV 01/20/18 20:10 01/20/18 21:10 DC 01/20/18 20:19 999 MLS/HR Ondansetron HCl (Zofran Inj) 4 mg NOW STAT IV 01/20/18 20:10 01/20/18 20:11 DC 01/20/18 20:18 4 MG Hydromorphone HCl (Dilaudid Inj) 1 mg NOW STAT IV 01/20/18 20:12 01/20/18 20:13 DC 01/20/18 20:18 1 MG Hydromorphone HCl (Dilaudid Inj) 0.5 mg NOW STAT IV 01/20/18 20:40 01/20/18 20:41 DC 01/20/18 20:48 0.5 MG ED Course ED COURSE: Vital signs were reviewed and showed tachycardia The patients medical record was reviewed The above diagnostic studies were performed and reviewed. ED treatments and interventions as stated above. 2004: The patient was evaluated in room C4. A complete history and physical examination was performed. 2009: Zofran Inj 4 mg IV Sodium Chloride 1000 ml @ 999 mls/hr IV 2011: Dilaudid Inj 1 mg IV Dilaudid Inj 0.5 mg IV 3: Upon reevaluation, the patient is feeling much better.I discussed my findings with the patient and she understands and agrees with the treatment plan. Based on the patients age, coexisting illnesses, exam and lab findings the decision to treat as an outpatient was made. The patient remained stable while under my care. The patient appeared well at the time of discharge. Medical Decision Differential diagnoses includes but is not limited to gastritis, peptic ulcer disease, GERD, gallbladder disease, pancreatitis, small bowel obstruction, acute coronary syndrome, pericarditis, ischemic bowel, irritable bowel disease, irritable bowel syndrome, appendicitis, diverticulitis, malignancy, hernia, urinary tract infection, torsion, [/ectopic (if female)], perforation, trauma, infectious. Patient is a 58-year-old female that presents the ER for diffuse abdominal pain complaining that she has an obstruction. She has had multiple previous abdominal surgeries before. Last bowel movement was yesterday. Previous hernia surgery and cholecystectomy. CBC was unremarkable. BMP with a creatinine of 2. LFTs, bilirubin lipase is unremarkable. CT abdomen pelvis was benign. Pain was completely resolved with 2 doses of IV Dilaudid. Did not obtain a urine but her pain is really more diffuse she had no urinary symptoms. Patient was updated at bedside and discharged follow-up with PCP as an outpatient. There was small ileus on CT do favor this likely the cause of her pain. She will try MiraLAX cleanout at home. Discussed with Pt concerning signs and symptoms to watch out for. Pt was instructed to follow up with their PCP and discussed with the patient their option to return to the ED at anytime for persistent or worsening symptoms. The appropriate anticipatory guidance and out-patient management, including indications for return to the emergency department, were explained at length to the patient and understood. Medication Reconcilliation Current Medication List: was personally reviewed by me Blood Pressure Screening Patient's blood pressure: Elevated blood pressure Blood pressure disposition: Elevated BP felt to be situational Impression Primary Impression: Abdominal pain Additional Impression: Chronic kidney disease Scribe Attestation The scribe's documentation has been prepared under my direction and personally reviewed by me in its entirety. I confirm that the note above accurately reflects all work, treatment, procedures, and medical decision making performed by me. Departure Information Dispostion Home / Self-Care Referrals Shruthi Mcbride D.O. (PCP) Forms Call Back Authorization, HOME CARE DOCUMENTATION FORM, IMPORTANT VISIT INFORMATION Patient Instructions [facility] Additional Instructions Please follow up with your primary care doctor with in the next 24 hours. Any worsening of your symptoms, please return to the ED immediately. This includes any fevers greater than 100.4, worsening pain, chest pain, shortness breath, persistent nausea, vomiting, unable to eat or drink, or any other concerning signs or symptoms from your standpoint. Please take MiraLAX 250 g bottle mixed with 64 ounces of Gatorade. Please drink 8 ounces every half hour until you have a bowel movement. Any worsening symptoms please return to the ER. Problem Qualifiers Primary Impression: Abdominal pain Abdominal location: unspecified location Qualified Codes: R10.9 - Unspecified abdominal pain Additional Impression: Chronic kidney disease Chronic kidney disease stage: unspecified stage Qualified Codes: N18.9 - Chronic kidney disease, unspecified
== END 2018-01-20 22:01 | disposition home or self-care (01) ==
LOC: C.EDB 19:57 → C.EDC 22:01
DX: R10.9 Unspecified abdominal pain (principal); Z99.2 Dependence on renal dialysis; Z94.0 Kidney transplant status; Z90.49 Acquired absence of other specified parts of digestive tract; J45.909 Unspecified asthma, uncomplicated; N18.4 Chronic kidney disease, stage 4 (severe); E11.9 Type 2 diabetes mellitus without complications; I12.9 Hypertensive chronic kidney disease with stage 1 through stage 4 chronic kidney disease, or unspecified chronic kidney disease; E78.5 Hyperlipidemia, unspecified; Z80.3 Family history of malignant neoplasm of breast; Z83.3 Family history of diabetes mellitus; Z84.1 Family history of disorders of kidney and ureter; Z79.899 Other long term (current) drug therapy; Z91.041 Radiographic dye allergy status; Z88.2 Allergy status to sulfonamides; Z88.5 Allergy status to narcotic agent; Z88.1 Allergy status to other antibiotic agents; Z88.8 Allergy status to other drugs, medicaments and biological substances; Z91.048 Other nonmedicinal substance allergy status

== ENCOUNTER 2018-01-25 00:31 | Inpatient (IN) | payer BC ==
[2018-01-25] VITALS (7 sets, daily range): BP systolic 86–181; BP diastolic 56–87; PULSE 46–75; TEMP 36.4–36.8; O2SAT 97–100; Ht 172.7 cm; Wt 68.8 kg
[~2018-01-25] VITALS: Ht 172.7 cm; Wt 68.8 kg
[~2018-01-25 00:31] MED LIST changes: -AZEL0.056 NAE; -CYCL1CAP22 PO; +MAGN1CAP2 PO; -ONDA4TAB10 SL; -ONDA4TAB9 PO; +OXYC1CAP5 PO; +PROP20TA67 PO; +RIZA5TAB10 PO; -SIRO1TAB PO
[2018-01-25] MEDS ORDERED: SODIUM CHLORIDE 0.9% 1000ML 1,000 ML IV ONE ×2 (01:00→01:45)
[2018-01-25] MEDS ORDERED: KETOROLAC TROMETHAMINE 15 MG/ML VIAL IV ONE (01:00)
[2018-01-25] MEDS ORDERED: ACETAMINOPHEN IV 1,000 MG in EMPTY BAG 0 ML IV ONE (01:00)
[2018-01-25 01:26] LABS: BASO % 0.2 %; BASO ABS # 0.01 K/uL (0-0.2); EOS % 0.7 %; EOS ABS # 0.04 K/uL (0-0.5); HEMATOCRIT 35.4 % (37-47); HEMOGLOBIN 11.4 g/dL (12.0-16.0); IG# 0.01 K/uL (0.00-0.02); LYMPH % 5.2 %; LYMPH ABS # 0.28 K/uL (1.2-3.4); MEAN CELL VOLUME 94.7 fL (80-100); MEAN CORPUSCULAR HEMOGLOBIN 30.5 pg (25-34); MEAN CORPUSCULAR HGB CONC 32.2 g/dl (32-36); MEAN PLATELET VOLUME 9.7 fL (7.4-10.4); MONO % 1.9 %; NEUT % 91.8 %; NEUT ABS # 4.95 K/uL (1.4-6.5); PLATELET COUNT 176 K/uL (130-400); RED CELL DISTRIBUTION WIDTH CV 17.2 % (11.5-14.5); RED CELL DISTRIBUTION WIDTH SD 59.9 fL (36.4-46.3); WHITE BLOOD COUNT 5.39 K/uL (4.8-10.8)
[2018-01-25] MEDS ORDERED: ACETAMINOPHEN 1000 MG/100 ML IV IV ONE (01:26)
[2018-01-25 01:33] LABS: INFLUENZA B ANTIGEN Neg for Influ B (NEG)
[2018-01-25] MEDS ORDERED: IMIPENEM/CILASTATIN IV 500 MG in DEXTROSE 5% 100ML 100 ML IV STA (01:36)
[2018-01-25] MEDS ORDERED: DAPTOmycin IV 390 MG in SODIUM CHLORIDE 0.9% 50ML 50 ML IV ONE (01:45)
[2018-01-25 01:51] LABS: ALBUMIN 2.9 gm/dl (3.4-5.0); CREATININE 3.34 mg/dl (0.60-1.20); POTASSIUM 3.6 mmol/L (3.5-5.1)
[2018-01-25] MEDS ORDERED: DAPTOmycin IV 400 MG in SYRINGE 0 ML IV STA (01:52)
[2018-01-25 01:54] LABS: TOTAL PROTEIN 7.2 gm/dl (6.4-8.2)
[2018-01-25] MEDS ORDERED: ONDANSETRON INJ 2 MG/ML 2 ML VIAL IV STA (03:33)
[2018-01-25] MEDS ORDERED: ACETAMINOPHEN 325 MG TAB PO PRN (04:15)
--- NOTE | 2018-01-25 04:24 | History and Physical ---
History & Physical Date & Time of Service: January 25, 2018 at 04:24 Chief Complaint: High Fever Primary Care Physician: Shruthi Mcbride D.O. History of Present Illness Source: patient, spouse The patient is a 58-year-old female with a past medical history including polycystic kidney disease, status post bilateral nephrectomy and left renal transplant, anemia of chronic disease, diabetes mellitus, hypertension, hyperlipidemia, restless leg syndrome, history of C. difficile colitis, status post fecal transplant, and history of CVA, who presented to the emergency department with complaint of abdominal discomfort and diarrhea. She is status post ERCP by her GI physician in [place] earlier in the day today. She is concerned about the diarrhea, and potential treatments, as she has had a fecal transplant due to history of C. difficile, which she reports had to be done in preparation for a new renal transplant that she is awaiting for for several months. She complains of significant fatigue. Past Medical/Surgical History Medical Problems: (1) Abdominal pain (2) Abdominal pain (3) Abdominal pain (4) Abdominal pain (5) Abdominal pain (6) Acute on chronic renal failure (7) Acute on chronic renal failure (8) Acute pyelonephritis (9) Acute renal failure (10) Acute renal insufficiency (11) MARCIO (acute kidney injury) (12) Asthma, Unspecified (13) Chronic kidney disease (14) Chronic Kidney Disease, Stage Iv (Severe) (15) CKD (chronic kidney disease) (16) Clostridium difficile diarrhea (17) Dehydration (18) Diab Raeann Wo Compl, Type Ii Or Unspec Type, Uncontrolled (19) Diabetes (20) Diarrhea (21) Diarrhea of presumed infectious origin (22) Elevated lipase (23) Fever (24) Fever (25) Forearm fractures, both bones, closed (26) Fracture of zygomaticomaxillary complex (27) History of fever (28) History of small bowel obstruction (29) HTN (hypertension) (30) Hyperlipidemia Nec/Nos (31) Ileus (32) Immunocompromised (33) Immunosuppressed status (34) Kidney Transplant Status (35) Klebsiella sepsis (36) Malaise and fatigue (37) Nausea, vomiting, and diarrhea (38) Pancreatitis (39) Polycystic Kidney, Unspecified Type (40) Prerenal renal failure (41) Renal failure (42) Renal insufficiency (43) Renal transplant rejection (44) Right upper quadrant abdominal pain (45) Right upper quadrant abdominal pain (46) Rigors (47) SBO (small bowel obstruction) (48) Sepsis (49) Sinusitis (50) SIRS (systemic inflammatory response syndrome) (51) Small bowel obstruction (52) Syncope and collapse (53) Urinary tract infection (54) UTI (lower urinary tract infection) (55) UTI (urinary tract infection) (56) Vomiting (57) Weakness Surgical Problems: (1) Kidney transplant recipient (2) Kidney Transplant Status Family History Breast cancer Diabetes mellitus Heart disease Kidney disease Kidney stones Social History Smoking Status: Former Smoker Smokeless Tobacco Use: No Alcohol Use: none Drug Use: none Marital Status: Housing status: lives with significant other Occupational Status: employed Immunizations History of Influenza Vaccine: Yes Influenza Vaccine Date: Jul 11, 2012 History of Tetanus Vaccine?: Yes History of Pneumococcal: Yes History of Hepatitis B Vaccine: Yes Hepatitis Immunization Date: February 09, 2008 Allergies Coded Allergies: Iodinated Diagnostic Agents (Verified Allergy, Severe, Hx Kidney Transplant, 01/20/18) Statins (Verified Allergy, Severe, "PANCREATITIS", 01/20/18) Sumatriptan (Verified Allergy, Severe, seizure, 01/20/18) Hydrochlorothiazide (Verified Allergy, Mild, 01/20/18) Sulfa Antibiotics (Verified Allergy, Mild, ., 01/20/18) Triamterene (Verified Allergy, Mild, 01/20/18) Atorvastatin (Verified Allergy, Unknown, ?, 01/20/18) Doxycycline (Verified Allergy, Unknown, UNKNOWN, 01/20/18) Levofloxacin (Verified Allergy, Unknown, joint pain, 01/20/18) Adhesives (Verified Adverse Reaction, Unknown, SKIN TEAR, 01/20/18) Ciprofloxacin (Verified Adverse Reaction, Unknown, FATIGUE, 01/20/18) Morphine (Verified Adverse Reaction, Unknown, INEFFECTIVE, 01/20/18) Home Medications Scheduled Biotin (Biotin 5000), 5,000 MCG PO QAM Calcium W/ Vitamins D & K (Calcium + D + K), 1 TABLET PO MWF Carvedilol (Carvedilol), 3.125 MG PO QAM Carvedilol (Carvedilol), 12.5 MG PO QPM Cyclosporine (Neoral), 25 MG PO BID Estrogens, Conjugated (Premarin), 0.625 MG PO 2XWK Insulin Detemir (Levemir Flextouch), 10 UNITS SQ PM Magnesium Oxide (Mg Supplement (Magnesium), 400 MG PO BID Multivitamin (Multivitamin), 1 TAB PO QAM Pantoprazole (Pantoprazole Sodium), 40 MG PO DAILY Polysaccharide Iron Complex (Ferrex 150), 150 MG PO QPM Pramipexole (Mirapex), 0.125 MG PO HS Prednisone (Prednisone), 2.5 MG PO QAM Propranolol (Inderal), 20 MG PO AMPM Venlafaxine Hcl (Effexor), 56.25 TAB PO HS Scheduled PRN Acetamin/Butalbital/Caffeine (Fioricet), 1 TAB PO Q4 PRN for Headache Epoetin Kvng (Procrit), 1 DOSE INJ WK PRN for ANEMIA Oxycodone Hcl (Oxycodone Hcl), 5 MG PO Q4 PRN for Pain Rizatriptan Benzoate (Maxalt), 5 MG PO UD PRN for Migraine Review of Systems The patient denies chest pain, palpitations, shortness of breath, dyspnea on exertion, cough, lower extremity swelling, sore throat, chills, sweats, vomiting, blood in urine or stool, dysuria, urinary frequency or urgency, memory loss, loss of consciousness, rash, abnormal bruising or bleeding, imbalance, focal or generalized weakness, numbness or tingling in arms or legs, generalized arthralgias or myalgias, back or neck pain. The review of systems is otherwise negative other than for that already noted above, and at least 10 systems have been reviewed. Physical Exam Vital Signs Date Time Temp Pulse Resp B/P (MAP) Pulse Ox O2 Delivery O2 Flow Rate FiO2 01/25/18 03:30 102 16 102/67 98 Room Air 01/25/18 03:00 37.4 98 18 113/56 99 Nasal Cannula 2.0 01/25/18 02:27 38.8 01/25/18 02:00 112 18 137/73 98 Nasal Cannula 2.0 01/25/18 01:16 109 01/25/18 01:14 98 Room Air 01/25/18 00:36 39.5 110 20 147/85 93 Room Air The patient is awake, alert and oriented 3, looks fatigued, lying in bed and in no acute distress. HEENT--PERRL, EOMI, mucous membranes and oropharynx dry. Neck--supple. No JVD. No bruits. Thyroid normal, trachea midline, no adenopathy. Heart--normal S1 and S2. No murmurs, rubs or gallops. Lungs--clear bilaterally, no respiratory distress, no accessory muscle use. Abdomen--normal bowel sounds and soft. Nontender. Nondistended. Extremities--no cyanosis or clubbing. No edema. There are good distal pulses b/ l. Dermatologic--normal skin turgor, normal color, no abnormal lymph nodes, no rash. Neurologic--cranial nerves II through XII grossly intact. Rheumatologic--normal range of motion. Psychiatric--normal affect. Diagnostics Laboratory Results Results Past 24 Hours Test 01/25/18 00:56 01/25/18 01:13 01/25/18 01:24 01/25/18 04:10 Range/Units Influenza Type A Antigen Neg for Influ A NEG Influenza Type B Antigen Neg for Influ B NEG White Blood Count 5.39 4.8-10.8 K/uL Red Blood Count 3.74 4.2-5.4 M/uL Hemoglobin 11.4 12.0-16.0 g/dL Hematocrit 35.4 37-47 % Mean Corpuscular Volume 94.7 80-100 fL Mean Corpuscular Hemoglobin 30.5 25-34 pg Mean Corpuscular Hemoglobin Concent 32.2 32-36 g/dl Platelet Count 176 130-400 K/uL Mean Platelet Volume 9.7 7.4-10.4 fL Neutrophils (%) (Auto) 91.8 % Lymphocytes (%) (Auto) 5.2 % Monocytes (%) (Auto) 1.9 % Eosinophils (%) (Auto) 0.7 % Basophils (%) (Auto) 0.2 % Neutrophils # (Auto) 4.95 1.4-6.5 K/uL Lymphocytes # (Auto) 0.28 1.2-3.4 K/uL Monocytes # (Auto) 0.10 0.11-0.59 K/uL Eosinophils # (Auto) 0.04 0-0.5 K/uL Basophils # (Auto) 0.01 0-0.2 K/uL RDW Standard Deviation 59.9 36.4-46.3 fL RDW Coefficient of Variation 17.2 11.5-14.5 % Immature Granulocyte % (Auto) 0.2 % Immature Granulocyte # (Auto) 0.01 0.00-0.02 K/uL Sodium Level 134 136-145 mmol/L Potassium Level 3.6 3.5-5.1 mmol/L Chloride Level 99 98-107 mmol/L Carbon Dioxide Level 27 21-32 mmol/L Anion Gap 8.0 3-11 mmol/L Blood Urea Nitrogen 27 7-18 mg/dl Creatinine 3.34 0.60-1.20 mg/dl Est Creatinine Clear Calc Drug Dose 18.3 ml/min Estimated GFR () 16.6 Estimated GFR (Non- 14.3 BUN/Creatinine Ratio 8.0 10-20 Random Glucose 90 70-99 mg/dl Calcium Level 9.0 8.5-10.1 mg/dl Total Bilirubin 1.2 0.2-1 mg/dl Aspartate Amino Transf (AST/SGOT) 31 15-37 U/L Alanine Aminotransferase (ALT/SGPT) 20 12-78 U/L Alkaline Phosphatase 120 45-117 U/L Total Protein 7.2 6.4-8.2 gm/dl Albumin 2.9 3.4-5.0 gm/dl Globulin 4.3 2.5-4.0 gm/dl Albumin/Globulin Ratio 0.7 0.9-2 Lipase 195 73-393 U/L Bedside Lactic Acid Venous 2.04 0.90-1.70 mmol/L Microbiology Results 01/25/18 Blood Culture, Received Pending 01/25/18 Blood Culture, Received Pending Impression Assessment and Plan Intractable abdominal discomfort with nausea and diarrhea/ SIRS/later development of hypotension-- Admit to the telemetry unit. Order stool studies for culture, C. difficile, and viral studies. We were trying to avoid antibiotics due to her history of fecal transplant in preparation for upcoming renal transplant, however, patient became more septic with hypotension, and she will be continued on daptomycin IV and Primaxin IV, taking into account her medication allergies, on an empiric basis. Placed on probiotics. Her GI physician that she usually follows with is in [place]. We will consult gastroenterology for their help today. Consult infectious disease. Polycystic kidney disease/status post bilateral nephrectomy/status post left renal transplant-- Patient is waiting for a new renal transplant. She is not presently on dialysis. We will consult her fleet sales associate Dr. Roy. Follow urine culture and sensitivities. Continue cyclosporine 25 mg p.o. twice daily. Continue biotin, calcium plus D plus K, magnesium oxide, and Ferrex 150. Hold prednisone. Place on stress dose hydrocortisone 50 mg IV every 8 hours. Hypertension-- She has become relatively hypotensive in the ED, with systolic blood pressure initially 147, and is decreased to 84. She has received 2 L of normal saline fluid bolus, and will be continued at 150 mL's per hour. Give albumin 25 g IV 1. She will be admitted to the MICU, and if her blood pressure continues to not respond, will be transferred to the ICU. Hold carvedilol and propranolol due to low blood pressure. Diabetes mellitus-- Hold Levemir 10 units subcu every evening. Placed on Accu-Cheks before meals and at bedtime with NovoLog coverage per scale. GERD-- Continue pantoprazole 40 mg p.o. daily. Restless leg syndrome-- Continue pramipexole 0.125 mg p.o. bedtime. Depression-- Continue Effexor 56.25 mg p.o. at bedtime. Migraine headache-- Hold propranolol 20 mg p.o. twice daily due to low blood pressure. Advanced Directives Existing Advance Directive: No Existing Living Will: No Existing Power of Airworthiness Safety Inspector: No Resuscitation Status VTE Prophylaxis Will order VTE Prophylaxis: Yes
[2018-01-25] MEDS ORDERED: ALBUMIN HUMAN 25% 12.5 GM/50 ML VIAL IV ONE (04:28)
[2018-01-25] MEDS ORDERED: IMIPENEM/CILASTATIN IV 500 MG in DEXTROSE 5% 100ML 100 ML IV SCH (04:30)
[2018-01-25] MEDS ORDERED: ALBUMIN HUMAN 25% 12.5 GM/50 ML VIAL IV STA (04:44)
--- NOTE | 2018-01-25 05:09 | EMERGENCY ROOM VISIT NOTE ---
History First contact with patient: 00:51 Chief Complaint: FEVER Stated Complaint: HIGH FEVER History of Present Illness The patient is a 58 year old female who presents to the Emergency Room with complaints of high fever tonight. The patient is accompanied by her who assist in the history. The patient has a history of renal transplant several years ago and is a dialysis patient. She is under consideration for a second transplant later this summer, and as part of her pretransplant workup had an ERCP performed at [facility] earlier today. Evidently the patient was running a very low-grade fever prior to this ERCP, and she did tolerate the procedure well. Tonight she started having a much higher fever, greater than 103F at home, prompting family concerned. The patient does not report new pain or discomfort. She does not complain of throat pain, chest pain , chest tightness, shortness of breath, or abdominal pain. She had been seen at this facility about a week ago where she had a mild ileus on CT imaging, but no other significant acute findings. The patient states that she has been eating, drinking, and using the bathroom as normal. She is concerned that she may need antibiotics, as she has a history of C. difficile with treatments including fecal transplant. She is concerned that if she has a recurrence of C. difficile that she will not be able to get a transplant this summer. The patient rates her overall discomfort an 8/10 and she has not taken anything over -the-counter for her symptoms. Review of Systems More than 10 systems were reviewed and otherwise negative with the exception of history of present illness. Past Medical/Surgical History Medical Problems: (1) Abdominal pain (2) Abdominal pain (3) Acute renal failure (4) Acute renal insufficiency (5) Asthma, Unspecified (6) Chronic Kidney Disease, Stage Iv (Severe) (7) Clostridium difficile diarrhea (8) Diab Raeann Wo Compl, Type Ii Or Unspec Type, Uncontrolled (9) Diarrhea of presumed infectious origin (10) Fever (11) HTN (hypertension) (12) Hyperlipidemia Nec/Nos (13) Immunosuppressed status (14) Klebsiella sepsis (15) Pancreatitis (16) Polycystic Kidney, Unspecified Type (17) SBO (small bowel obstruction) (18) SIRS (systemic inflammatory response syndrome) Surgical Problems: (1) Kidney transplant recipient (2) Kidney Transplant Status Family History Breast cancer Diabetes mellitus Heart disease Kidney disease Kidney stones Social History Smoking Status: Former Smoker Alcohol Use: none Drug Use: none Marital Status: Housing Status: lives with family Occupation Status: employed Current/Historical Medications Scheduled Biotin (Biotin 5000), 5,000 MCG PO QAM Calcium W/ Vitamins D & K (Calcium + D + K), 1 TABLET PO MWF Carvedilol (Carvedilol), 3.125 MG PO QAM Carvedilol (Carvedilol), 12.5 MG PO QPM Cyclosporine (Neoral), 25 MG PO BID Estrogens, Conjugated (Premarin), 0.625 MG PO 2XWK Insulin Detemir (Levemir Flextouch), 10 UNITS SQ PM Magnesium Oxide (Mg Supplement (Magnesium), 400 MG PO BID Multivitamin (Multivitamin), 1 TAB PO QAM Pantoprazole (Pantoprazole Sodium), 40 MG PO DAILY Polysaccharide Iron Complex (Ferrex 150), 150 MG PO QPM Pramipexole (Mirapex), 0.125 MG PO HS Prednisone (Prednisone), 2.5 MG PO QAM Propranolol (Inderal), 20 MG PO AMPM Venlafaxine Hcl (Effexor), 56.25 TAB PO HS Scheduled PRN Acetamin/Butalbital/Caffeine (Fioricet), 1 TAB PO Q4 PRN for Headache Epoetin Kvng (Procrit), 1 DOSE INJ WK PRN for ANEMIA Oxycodone Hcl (Oxycodone Hcl), 5 MG PO Q4 PRN for Pain Rizatriptan Benzoate (Maxalt), 5 MG PO UD PRN for Migraine Physical Exam Vital Signs Date Time Temp Pulse Resp B/P (MAP) Pulse Ox O2 Delivery O2 Flow Rate FiO2 01/25/18 03:30 102 16 102/67 98 Room Air 01/25/18 03:00 37.4 98 18 113/56 99 Nasal Cannula 2.0 01/25/18 02:27 38.8 01/25/18 02:00 112 18 137/73 98 Nasal Cannula 2.0 01/25/18 01:16 109 01/25/18 01:14 98 Room Air 01/25/18 00:36 39.5 110 20 147/85 93 Room Air Physical Exam VITALS: Vitals are noted on the nurse's note and reviewed by myself. Vital signs with notable fever and tachycardia GENERAL: Ill-appearing female who is cooperative with examination. EARS: External ear normal. External auditory canals clear, tympanic membranes pearly hooks without erythema or effusion bilaterally. MOUTH: Mucous membranes moist. Tonsils are not enlarged. Pharynx without erythema, blood, or exudate. Uvula midline. Airway patent. HEART: Tachycardic rate with regular rhythm LUNGS: Clear to auscultation bilaterally without wheezes, rales or rhonchi. No retractions or accessory muscle use. ABDOMEN: Positive normal bowel sounds x 4. Soft, nontender, without masses or organomegaly. No guarding or rebound tenderness. MUSCULOSKELETAL: No muscle atrophy, erythema, or edema noted. Full range of motion in all extremities NEURO: Patient was alert and oriented to person place and time. CN II through XII grossly intact. Medical Decision & Procedures ER Provider Diagnostic Interpretation: Preliminary Findings Only See Final Report For Complete Findings CT ABDOMEN & PELVIS Without Contrast: Comparison: CT dated 01/20/2018. Contrast present within the colon. No CT evidence of small bowel obstruction or ileus. Biliary tree not well seen on noncontrast CT although there appears to be increased dilation of common bile duct with new branching air in the liver which may represent pneumobilia. Recommend clinical correlation and correlation with laboratory values. Further imaging (right upper quadrant ultrasound, MRCP) can be considered as clinically warranted. Hepatomegaly and multiple low-attenuation hepatic lesions, possibly cysts. Left lower quadrant renal transplant. No hydronephrosis. Bilateral nephrectomies. Small pleural effusions and small pericardial effusion measuring 8 mm in thickness. Small amount of ascites in the pelvis. No free air. Incidental findings: Calcified breast implants incompletely imaged. Cholecystectomy. Atherosclerotic vascular disease without abdominal aortic aneurysm. Laboratory Results 01/25/18 01:13 Red Blood Count 3.74, Mean Corpuscular Volume 94.7, Mean Corpuscular Hemoglobin 30.5, Mean Corpuscular Hemoglobin Concent 32.2, Mean Platelet Volume 9.7, Neutrophils (%) (Auto) 91.8, Lymphocytes (%) (Auto) 5.2, Monocytes (%) (Auto) 1.9, Eosinophils (%) (Auto) 0.7, Basophils (%) (Auto) 0.2, Neutrophils # (Auto) 4.95, Lymphocytes # (Auto) 0.28, Monocytes # (Auto) 0.10, Eosinophils # (Auto) 0.04, Basophils # (Auto) 0.01 01/25/18 01:13 Test 01/25/18 00:56 01/25/18 01:13 01/25/18 01:24 01/25/18 04:10 Influenza Type A Antigen Neg for Influ A (NEG) Influenza Type B Antigen Neg for Influ B (NEG) White Blood Count 5.39 K/uL (4.8-10.8) Red Blood Count 3.74 M/uL (4.2-5.4) Hemoglobin 11.4 g/dL (12.0-16.0) Hematocrit 35.4 % (37-47) Mean Corpuscular Volume 94.7 fL (80-100) Mean Corpuscular Hemoglobin 30.5 pg (25-34) Mean Corpuscular Hemoglobin Concent 32.2 g/dl (32-36) Platelet Count 176 K/uL (130-400) Mean Platelet Volume 9.7 fL (7.4-10.4) Neutrophils (%) (Auto) 91.8 % Lymphocytes (%) (Auto) 5.2 % Monocytes (%) (Auto) 1.9 % Eosinophils (%) (Auto) 0.7 % Basophils (%) (Auto) 0.2 % Neutrophils # (Auto) 4.95 K/uL (1.4-6.5) Lymphocytes # (Auto) 0.28 K/uL (1.2-3.4) Monocytes # (Auto) 0.10 K/uL (0.11-0.59) Eosinophils # (Auto) 0.04 K/uL (0-0.5) Basophils # (Auto) 0.01 K/uL (0-0.2) RDW Standard Deviation 59.9 fL (36.4-46.3) RDW Coefficient of Variation 17.2 % (11.5-14.5) Immature Granulocyte % (Auto) 0.2 % Immature Granulocyte # (Auto) 0.01 K/uL (0.00-0.02) Anion Gap 8.0 mmol/L (3-11) Est Creatinine Clear Calc Drug Dose 18.3 ml/min Estimated GFR () 16.6 Estimated GFR (Non- 14.3 BUN/Creatinine Ratio 8.0 (10-20) Calcium Level 9.0 mg/dl (8.5-10.1) Total Bilirubin 1.2 mg/dl (0.2-1) Aspartate Amino Transf (AST/SGOT) 31 U/L (15-37) Alanine Aminotransferase (ALT/SGPT) 20 U/L (12-78) Alkaline Phosphatase 120 U/L (45-117) Total Protein 7.2 gm/dl (6.4-8.2) Albumin 2.9 gm/dl (3.4-5.0) Globulin 4.3 gm/dl (2.5-4.0) Albumin/Globulin Ratio 0.7 (0.9-2) Lipase 195 U/L (73-393) Bedside Lactic Acid Venous 2.04 mmol/L (0.90-1.70) Medications Administered Medications (Trade) Dose Ordered Sig/Dominique Route Start Time Stop Time Status Last Admin Dose Admin Sodium Chloride 1,000 ml @ 999 mls/hr Q1H1M ONCE IV 01/25/18 01:00 01/25/18 02:00 DC 01/25/18 01:31 999 MLS/HR Acetaminophen 1000 mg/Empty Bag 100 ml @ 400 mls/hr NOW ONCE IV 01/25/18 01:00 01/25/18 01:14 DC 01/25/18 01:28 400 MLS/HR Ketorolac Tromethamine (Toradol Inj) 15 mg NOW ONCE IV 01/25/18 01:00 01/25/18 01:02 DC 01/25/18 01:29 15 MG Imipenem/ Cilastatin Sodium 500 mg/Dextrose 110 ml @ 100 mls/hr NOW STAT IV 01/25/18 01:36 01/25/18 02:41 DC 01/25/18 01:57 100 MLS/HR Sodium Chloride 1,000 ml @ 999 mls/hr Q1H1M ONCE IV 01/25/18 01:45 01/25/18 02:45 DC 01/25/18 02:07 999 MLS/HR Daptomycin 400 mg/ Syringe 8 ml @ 4 mls/min NOW STAT IV 01/25/18 01:52 01/25/18 01:53 DC 01/25/18 01:57 4 MLS/MIN Ondansetron HCl (Zofran Inj) 4 mg NOW STAT IV 01/25/18 03:33 01/25/18 03:34 DC 01/25/18 03:37 4 MG ED Course Physical exam and history were performed. Nursing notes, EMR, and Medication List were personally reviewed. Patient appears to have a notable fever of 39 5 here in the emergency department. The patient has multiple comorbidities including kidney transplant , dialysis status, and recent procedure. She has been seen within the past week where she had a CT scan of the abdomen as well as blood work, revealing a nonobstructive ileus. The patient does appear ill on presentation, more so than normal. IV access was established and labs were obtained. Out of concern for SIRS/sepsis blood cultures and lactic acid were obtained. The patient was hydrated with normal saline. The patient's blood work is as above and was reviewed. She does not have a significantly elevated white blood cell count. She is mildly anemic, however this appears improved from previous labs. She does not have a gross electrolyte imbalance. Creatinine is greater than 3. Her lactic acid is elevated at greater than 2 with blood cultures pending. Influenza swabs were negative. A chest x-ray was performed and difficult to interpret as she does have overlying breast augmentation, but no grossly obvious findings were appreciated with radiology read pending. Overall the patient's case is concerning as she does have tachycardia, elevated fever, and elevated lactic acid. She is without readily identifiable source for infection. Because of this she was started on daptomycin and Primaxin. She was given a total of 2 L fluid, which is roughly 30 mL's per kilogram. I discussed the case with the on-call hospitalist, Dr. Bahena, who agreed to evaluate the patient. After evaluation Dr. Bahena recommended a CT scan of the abdomen and pelvis for better characterization of the possible ileus from before. This was performed and is as above. Dr. Bahena agreed to admit the patient for further care and evaluation. Please see his dictation for further patient course, plan, and disposition. The chart was completed utilizing [employer] Speech Voice Recognition Software. Grammatical errors, random word insertions, pronoun errors, and incomplete sentences are an occasional consequence of this system due to software limitations, ambient noise, and hardware issues. Any formal questions or concerns about the content, text, or information contained within the body of this dictation should be directly addressed to the provider for clarification. . Medical Decision Differential diagnosis: Etiologies such as sepsis, UTI, pneumonia, metabolic, electrolyte abnormalities , cardiac sources, intracerebral event, toxicologic, neurologic, as well as others were entertained. Impression Primary Impression: SIRS (systemic inflammatory response syndrome) Additional Impression: Fever Departure Information Referrals Shruthi Mcbride D.O. (PCP) Patient Instructions [facility] Problem Qualifiers
[2018-01-25] MEDS: SODIUM CHLORIDE 0.9% 1000ML 1,000 ML IV SCH ×4 (05:56→20:56)
[2018-01-25] MEDS ORDERED: IMIPENEM/CILASTATIN CONSULT ACTIVE PRN (06:00)
[2018-01-25] MEDS ORDERED: ALBUMIN HUMAN 25% 12.5 GM/50 ML VIAL IV SCH (06:00)
[2018-01-25] MEDS: HYDROCORTISONE IV 50 MG in SYRINGE 0 ML IV SCH ×3 (06:06→19:52)
[2018-01-25] MEDS ORDERED: DAPTOMYCIN CONSULT ACTIVE PRN (06:30)
[2018-01-25 06:50] LABS: INR 1.1 (0.9-1.1)
--- NOTE | 2018-01-25 06:55 | DIAGNOSTIC IMAGING REPORT ---
ABD/PELVIS NO IV OR ORAL CONT CT DOSE: 310.87 mGy.cm HISTORY: Pain Fever. ileus on last ct TECHNIQUE: Multiaxial CT images of the abdomen and pelvis were performed without contrast. A dose lowering technique was utilized adhering to the principles of ALARA. COMPARISON STUDY: 01/20/2018 FINDINGS: Pericardial effusion measuring 8 mm in maximum thickness. Small bilateral pleural effusions. Mild bilateral basilar atelectatic change. Focal pleural thickening lateral aspect left midlung. Multiple hepatic cysts similar. Intrahepatic biliary ductal air possibly on the basis of cholecystectomy and/or postoperative sphincterotomy-type change depending on clinical history. Prominence of the common bile duct is similar compared to the prior study. Bilateral nephrectomy and cholecystectomy. Left pelvic renal transplant. Nonobstructive bowel pattern. Trace amount of free fluid within the pelvic cul-de-sac. Prior partial colectomy. Calcified bilateral breast implants. IMPRESSION: 1. Nonobstructive bowel pattern. 2. Interval development of intraductal air within the biliary system possibly postoperative although clinical correlation is suggested. 3. Small bilateral pleural effusions with mild bibasilar atelectatic change. 4. Pericardial effusion with a maximum thickness of 8 mm. 5. Operative findings of a partial colectomy, cholecystectomy, and bilateral nephrectomy. The above report was generated using voice recognition software. It may contain grammatical, syntax or spelling errors. Electronically signed by: Jonas Deluca M.D. 01/25/2018 6:53 AM Dictated Date/Time: 01/25/2018 6:48 AM
--- NOTE | 2018-01-25 07:10 | DIAGNOSTIC IMAGING REPORT ---
CHEST ONE VIEW PORTABLE CLINICAL HISTORY: Fever cough COMPARISON STUDY: 11/23/2017 FINDINGS: Bilateral calcified breast implants. Probable superimposed bibasilar parenchymal infiltrates. Upper lungs are clear. PermCath in superior vena cava. IMPRESSION: Bibasilar parenchymal infiltrates. The above report was generated using voice recognition software. It may contain grammatical, syntax or spelling errors. Electronically signed by: Jonas Deluca M.D. 01/25/2018 7:08 AM Dictated Date/Time: 01/25/2018 7:07 AM
[2018-01-25] MEDS: CycloSPORINE (NEORAL) 25 MG CAP PO SCH ×2 (07:42→19:56)
[2018-01-25] MEDS: LACTOBACILLUS ACIDOPHILUS (FLORANEX) TAB PO SCH ×2 (07:42→10:57)
[2018-01-25] MEDS: PANTOprazole SOD 40 MG TAB PO SCH (07:42)
[2018-01-25] MEDS: MAGNESIUM OXIDE 400 MG TAB PO SCH ×2 (07:43→19:53)
[2018-01-25] MEDS: HEPARIN SOD 5000 UNIT/0.5 ML CARP SQ SCH ×2 (07:49→20:01)
[2018-01-25] MEDS: IMIPENEM-CILASTATIN 200 MG in DEXTROSE 5% 100ML 100 ML IV SCH ×3 (07:49→19:47)
--- NOTE | 2018-01-25 07:57 | Family Medicine Progress Note ---
Progress Note Date of Service January 25, 2018. Subjective Pt evaluation today including: conversation w/ patient, conversation w/ family , physical exam, chart review, lab review, review of studies, review of inpatient medication list Patient feeling a lot better this morning. Improvement of nausea and abdominal pain. Ongoing diarrhea without decrease in frequency. Denies hematochezia, Otherwise denies fevers/chills at present. No headaches, CP, palpitations, dyspnea, lower extremity swelling or rashes. No issues with voiding. ROS is unremarkable except as noted above. Objective Vital Signs Date Time Temp Pulse Resp B/P (MAP) Pulse Ox O2 Delivery O2 Flow Rate FiO2 01/25/18 06:36 36.8 70 18 86/56 (66) 100 Nasal Cannula 2.0 01/25/18 06:29 Room Air 01/25/18 05:17 36.8 75 18 92/57 (69) 98 Nasal Cannula 2.0 01/25/18 04:35 76 22 96/60 100 Nasal Cannula 2.0 01/25/18 04:30 36.9 71 22 95/54 99 Nasal Cannula 2.0 01/25/18 04:20 90 18 81/51 99 Nasal Cannula 2.0 01/25/18 04:05 87 23 85/55 01/25/18 04:01 87/54 01/25/18 04:00 87 20 99 Nasal Cannula 2.0 01/25/18 03:30 102 16 102/67 98 Room Air 01/25/18 03:00 37.4 98 18 113/56 99 Nasal Cannula 2.0 01/25/18 02:27 38.8 01/25/18 02:00 112 18 137/73 98 Nasal Cannula 2.0 01/25/18 01:16 109 01/25/18 01:14 98 Room Air 01/25/18 00:36 39.5 110 20 147/85 93 Room Air Physical Exam General Appearance: WD/WN, no apparent distress Eyes: sclerae normal ENT: hearing grossly normal Neck: supple Respiratory/Chest: normal breath sounds, no respiratory distress, no accessory muscle use Cardiovascular: regular rate, rhythm, no murmur Abdomen: normal bowel sounds, soft, + tenderness (mild tenderness only on palpation), + pertinent finding (no distension, rebound or guarding) Extremities: no pedal edema, no calf tenderness Neurologic/Psychiatric: alert, normal mood/affect, oriented x 3 Skin: normal color, warm/dry, no rash Laboratory Results Results Past 24 Hours Test 01/25/18 00:56 01/25/18 01:13 01/25/18 01:24 01/25/18 04:18 Range/Units Influenza Type A Antigen Neg for Influ A NEG Influenza Type B Antigen Neg for Influ B NEG White Blood Count 5.39 4.8-10.8 K/uL Red Blood Count 3.74 4.2-5.4 M/uL Hemoglobin 11.4 12.0-16.0 g/dL Hematocrit 35.4 37-47 % Mean Corpuscular Volume 94.7 80-100 fL Mean Corpuscular Hemoglobin 30.5 25-34 pg Mean Corpuscular Hemoglobin Concent 32.2 32-36 g/dl Platelet Count 176 130-400 K/uL Mean Platelet Volume 9.7 7.4-10.4 fL Neutrophils (%) (Auto) 91.8 % Lymphocytes (%) (Auto) 5.2 % Monocytes (%) (Auto) 1.9 % Eosinophils (%) (Auto) 0.7 % Basophils (%) (Auto) 0.2 % Neutrophils # (Auto) 4.95 1.4-6.5 K/uL Lymphocytes # (Auto) 0.28 1.2-3.4 K/uL Monocytes # (Auto) 0.10 0.11-0.59 K/uL Eosinophils # (Auto) 0.04 0-0.5 K/uL Basophils # (Auto) 0.01 0-0.2 K/uL RDW Standard Deviation 59.9 36.4-46.3 fL RDW Coefficient of Variation 17.2 11.5-14.5 % Immature Granulocyte % (Auto) 0.2 % Immature Granulocyte # (Auto) 0.01 0.00-0.02 K/uL Prothrombin Time 11.1 9.0-12.0 SECONDS Prothromb Time International Ratio 1.1 0.9-1.1 Sodium Level 134 136-145 mmol/L Potassium Level 3.6 3.5-5.1 mmol/L Chloride Level 99 98-107 mmol/L Carbon Dioxide Level 27 21-32 mmol/L Anion Gap 8.0 3-11 mmol/L Blood Urea Nitrogen 27 7-18 mg/dl Creatinine 3.34 0.60-1.20 mg/dl Est Creatinine Clear Calc Drug Dose 18.3 ml/min Estimated GFR () 16.6 Estimated GFR (Non- 14.3 BUN/Creatinine Ratio 8.0 10-20 Random Glucose 90 70-99 mg/dl Calcium Level 9.0 8.5-10.1 mg/dl Total Bilirubin 1.2 0.2-1 mg/dl Aspartate Amino Transf (AST/SGOT) 31 15-37 U/L Alanine Aminotransferase (ALT/SGPT) 20 12-78 U/L Alkaline Phosphatase 120 45-117 U/L Total Protein 7.2 6.4-8.2 gm/dl Albumin 2.9 3.4-5.0 gm/dl Globulin 4.3 2.5-4.0 gm/dl Albumin/Globulin Ratio 0.7 0.9-2 Lipase 195 73-393 U/L Bedside Lactic Acid Venous 2.04 0.90-1.70 mmol/L Lactic Acid Level 0.7 0.4-2.0 mmol/L Test 01/25/18 08:17 01/25/18 10:25 Range/Units Sodium Level 138 136-145 mmol/L Potassium Level 3.6 3.5-5.1 mmol/L Chloride Level 104 98-107 mmol/L Carbon Dioxide Level 24 21-32 mmol/L Anion Gap 9.0 3-11 mmol/L Blood Urea Nitrogen 27 7-18 mg/dl Creatinine 3.25 0.60-1.20 mg/dl Est Creatinine Clear Calc Drug Dose 18.8 ml/min Estimated GFR () 17.2 Estimated GFR (Non- 14.8 BUN/Creatinine Ratio 8.3 10-20 Random Glucose 134 70-99 mg/dl Lactic Acid Level 0.7 0.4-2.0 mmol/L Calcium Level 8.2 8.5-10.1 mg/dl Microbiology Results 01/25/18 Blood Culture, Received Pending 01/25/18 Blood Culture, Received Pending 01/25/18 WBC Smear - Final, Complete 01/25/18 C.difficile Toxin B Gene (PCR) - Final, Complete Positive for C. difficile toxin B gene 01/25/18 Rotavirus Antigen - Final, Complete Negative for Rotavirus Antigen 01/25/18 Shiga Toxin Test, Received Pending 01/25/18 Stool Culture, Received Pending Assessment and Plan 58 yo F with pMHx of polycystic kidney disease s/p bilateral nephrectomy and L renal transplant, anemia of chronic disease, DM, HTN, HLD, restless leg syndrome , history of C. difficile colitis s/p fecal transplant, and history of CVA, admitted for abdominal pain and diarrhea with fever and hypotension in the ER C.diff colitis with septic features - consulted ID, recs appreciated - IVF NSS @ 150cc/hr - BPs acceptable - PO Dificifid + probiotics - Continue IV imipenem-cilastatin, IV daptomycin for now until negative blood Cx - Stool smear shows moderate leuks. Rotavirus negative. Other stool studies ordered and pending: Giardia, norovirus, stool culture Polycystic kidney disease s/p bilateral nephrectomy s/p left renal transplant Patient is waiting for a new renal transplant. She is not presently on dialysis. Nephrology consulted, rec appreciated - Continue cyclosporine - Continue biotin, calcium plus D plus K, magnesium oxide, and Ferrex 150. - Continue prednisone.+ stress dose hydrocortisone Hypertension/Hypotension - Carvedilol and propranolol held due to hypotension in ED. - Continue IVF, as above DM - Hold home regimen - ISS with checks ac/hs GERD - Pantoprazole Restless leg syndrome - Pramipexole Depression - Venlafaxine VTE ppx - Hep SC FULL CODE Resident Physician Supervision Note: I interviewed and examined the patient. Discussed with Dr. Giron and agree with findings and plan as documented in the note. Any exceptions or clarifications are listed here: None Documented By: Garland Jorge feeling better diarrhea persists vitals noted nad breathing unlabored no pallor or icterus sepsis -most likely due to recurrent Cdiff -dificid, supportive care, low threshold for repeat fecal transplant DVT proph -heparin SQ Continued [facility] stay due to: multiple IV medications needed Discharge planning: home Resident Tracking Resident Involvement: Resident Care Provided Care Provided: Adult Hospital Medicine
[2018-01-25] MEDS ORDERED: DAPTOmycin IV 390 MG in SODIUM CHLORIDE 0.9% 50ML 50 ML IV SCH (09:00)
[2018-01-25 09:06] LABS: CALCIUM 8.2 mg/dl (8.5-10.1); CREATININE 3.25 mg/dl (0.60-1.20); POTASSIUM 3.6 mmol/L (3.5-5.1)
[2018-01-25] MEDS: VANCOMYCIN HCL 125 MG/2.5ML SOLN PO SCH ×2 (09:38→13:00)
[2018-01-25] MEDS: RASPBERRY SYRUP 5 ML UDP PO SCH ×3 (09:39→14:55)
[2018-01-25] MEDS ORDERED: NURSING VERBAL MED ORDER ONE ×2 (11:00→15:00)
[2018-01-25] MEDS: FIDAXOMICIN TAB 200 MG TAB PO SCH ×2 (12:57→19:52)
[2018-01-25] MEDS ORDERED: FIDAXOMICIN TAB 200 MG TAB PO ONE (13:00)
--- NOTE | 2018-01-25 13:50 | Progress Note ---
Progress Note Date of Service January 25, 2018. Progress Note ID Consult Dictated #[id number] A/P: 1. C diff colitis -Continue dificid -If blood cultures negative, will stop systemic abx -Will follow, thank you
--- NOTE | 2018-01-25 14:19 | INFECT. DISEASE CONSULTATION ---
DATE OF CONSULTATION: 01/25/2018 HISTORY OF PRESENT ILLNESS: This is a 58-year-old female who was admitted to the hospital with diarrhea. She was here on Monday evening for nausea and vomiting and was told she had a bowel obstruction and was given MiraLax. Since having MiraLax on a daily basis, she has noticed worsening diarrhea. She does have a history of C. difficile, which is not responsive to oral vancomycin but is responsive to Dificid many times in the past, and she had a fecal transplant in May in [place] with her GI physician. She did note worsening diarrhea and some abdominal bloating over the weekend, and she returned to the ER today. Of note, she did have an ERCP in [place] yesterday and noticed some fevers afterwards. She did have a CAT scan of the abdomen and pelvis in the ER, which did not show any new abnormalities. She does have a history of bilateral nephrectomy and kidney transplant. She is awaiting a second kidney transplant. She had some hypertension in the ER and was also placed on daptomycin and imipenem. She was put on p.o. vancomycin, and Dificid is ordered. She is currently taking her Dificid from home. She states today she is feeling significantly better. She has little appetite and is able to tolerate clears. She had only 2 bowel movements today. She denied any abdominal pain. She denies any chills. She did have a fever of 39.5 on admission but is otherwise afebrile. Blood cultures are ordered and are pending. Her white blood cell count is 5.3. Her creatinine is elevated at 3.2. Her remaining review of systems reviewed and unremarkable. PAST MEDICAL HISTORY: Significant for renal failure, history of pyelonephritis, asthma, chronic kidney disease, status post bilateral nephrectomy and transplanted kidney, history of C. difficile with multiple treatments of Dificid and fecal transplant in May 2017, type 2 diabetes, hypertension, hyperlipidemia, polycystic kidney disease. FAMILY HISTORY: Noncontributory. SOCIAL HISTORY: Significant for history of tobacco use. She denies any alcohol or drug use. ALLERGIES: INCLUDE IODINE, STATINS, SUMATRIPTAN, HYDROCHLOROTHIAZIDE, SULFA, TRIAMTERENE, ATORVASTATIN, DOXYCYCLINE, LEVAQUIN, ADHESIVE, AND MORPHINE. MEDICATIONS: Daptomycin, Niferex, Mirapex, Effexor, Dificid, subcu heparin, cyclosporine, Protonix, prednisone, magnesium, oral vancomycin, imipenem, hydrocortisone, Tylenol. PHYSICAL EXAMINATION: VITAL SIGNS: She is currently afebrile, pulse 69, respiratory rate 20, blood pressure 129/72, oxygen saturation is 98% on room air. GENERAL: She is awake, alert, and oriented x3. She is in no acute distress. HEENT: Mucous membranes are moist. Extraocular muscles are intact. CARDIOVASCULAR: Heart is regular. RESPIRATORY: Lungs are clear. GASTROINTESTINAL: Abdomen is soft and nondistended. EXTREMTIES: There is no edema. SKIN: Without rash. LABORATORY STUDIES: On CBC today, white blood cell count 5.3, hemoglobin 11.4, platelets 176. Chemistry panel: Sodium 138, potassium 3.6, chloride 104, bicarbonate 24, BUN 27, creatinine 3.2, glucose 134. UA is pending. Flu swab is negative. C. difficile is positive. Blood cultures are pending. IMAGING: As above. ASSESSMENT AND PLAN: Clostridium difficile colitis. At this time, she will remain on Dificid as this has worked well for her in the past. If her blood cultures are negative, her systemic antibiotics will be discontinued. She will continue her followup with GI in [place] upon discharge from the hospital.
--- NOTE | 2018-01-25 14:40 | NEPHROLOGY CONSULTATION ---
DATE OF CONSULTATION: 01/25/2018 SUBJECTIVE: Mrs. Bowling is a 58-year-old woman, well-known to me. I have been following her since about 2011. She was admitted to the hospital early this morning with abdominal pain, fever, and diarrhea. Mrs. Bowling has a significant past medical history revolving around her history of autosomal dominant polycystic kidney disease. She developed end-stage renal disease in 1998. At that time, she underwent a bilateral nephrectomy and was begun on maintenance dialysis. The nephrectomy was done in preparation of a probable kidney transplant. She had a history of recurrent urinary tract infections. A complication of the hospitalization for nephrectomy was a CVA. However, she developed no long-term sequela of that episode. When on dialysis, she was treated with peritoneal dialysis at home. She was on dialysis for 18 months prior to getting a kidney transplant from a living related donor, a cousin. 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 Her serum creatinine marc from its baseline of about 1.5-2.5 mg/dL. Her immunosuppression was changed at that time. She was switched to a combination of prednisone and sirolimus. She remains on that at the current time. She moved to [facility] several years ago because of her 's change in jobs. Since that time, she has been followed at [facility] as her transplant center. In May 2011, she developed an episode of acute abdominal pain and evidence of a bowel obstruction. She was transferred to [facility] at that time. She underwent an apparent bowel resection and colostomy. Subsequently, her colostomy was taken down. Unfortunately, that surgery was complicated by the development of a wound infection as well as urinary tract infections, both requiring antibiotics. As a complication, she developed C. difficile colitis, that was treated with vancomycin. Nonetheless, her wound infection gradually cleared. She was managed at the wound center at [place]. Initially when she moved to [facility], she saw Dr. Painting initially, but requested to see me in 2011 and I have been her local telephone appointment clerk since that time. Mrs. Bowling has had a progressive decline in her renal function. 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 Her baseline serum creatinine over the course of the past year or more has been about 3.5 mg/dL. Complications of her progressive renal insufficiency have included an anemia of chronic disease which has been managed with Procrit. She cannot tolerate oral iron, but has received IV iron in the past. Additionally, she has secondary hyperparathyroidism. She is currently in the process of being evaluated for another kidney transplant at [facility]. Additional complications have included diabetes mellitus and hypertension, both of which have been well-controlled. Additionally, she has had recurring episodes of C. difficile colitis. She has had courses of vancomycin and Dificid. More recently in May 2017, she did undergo a fecal transplant. Since that time, whenever she takes antibiotics, she does take Dificid. Her stools have been perfectly normal and she states that they are normal for the first time in many years. In December 2016, she underwent a repair of her ventral hernia. That was a consequence of prior abdominal surgeries and wound infections. That surgery was done at the [facility]. She has a history of small-bowel obstruction in 2010 and a history of recurring episodes of small-bowel obstruction since that time. Each improve with conservative therapy. She developed further complications on November 23 of this year when she suffered a fall at home. Apparently, the fall occurred as a result of a syncopal episode. No etiology for the syncopal episode was ever uncovered. Nonetheless, she was seen in the Emergency Room here. A CT scan of her head showed an acute right zygomaticomaxillary complex fracture. That included fractures of the right zygomatic arch, a fracture of the lateral wall of the right orbit, and a right maxillary sinus, and diastasis of the right zygomaticofrontal suture. She was transferred to [facility]. There she underwent maxillofacial surgery to wire her fractures. For a period of time, her jaw was wired and she relied on full liquids that she could take through a straw. She also had evidence of weakness of the left side of her face. While at [place] it was felt that she needed to start maintenance dialysis. Her serum creatinine was in the range of the upper 3s. The dialysis access was through a [facility]. As noted, she is being evaluated for another transplant. She was told that it is likely that she would get a donor transplant during the summer of 2018. However, she was also told that if she developed a recurring episode of C. difficile colitis, she would have to be treated again, with a probable fecal transplant, and that she would have to wait an additional year for her kidney transplant. She has been reasonably stable on maintenance dialysis and feeling quite well. Her serum creatinines have been in the range of 3. I told her that we would look into trying to taper her dialysis to fewer treatments a week and possibly discontinue it completely if she was feeling well and her serum creatinine remained at the previous level. She was doing well until last 01/22/2018. She was dialyzed on that day and immediately after her when she went home, she felt an upper abdominal pressure and began to have symptoms of diarrhea. She denied having any shaking chills. Apparently, she had 4-5 bowel movements a day with some associated fecal incontinence. She was seen again in the Emergency Room. A CT scan of her abdomen was felt to be unremarkable other than a lot of retained feces. She was told to try using MiraLax which she did. The following day, she had multiple stools, but was feeling better with a decrease in her abdominal pain. She assumed that her frequent loose stools was the result of having used MiraLax. She stated that she did not use much. On 01/22/2018, she stated that she felt relatively well, but still was having loose stools. Yesterday, she had a routine dialysis. While at the dialysis unit, she stated that she felt very fatigued. She did not have any shaking chills at that time. She did not have any bowel movements on dialysis. After she returned home, however, she once again developed an upper abdominal pressure-like sensation which she denies was crampy in nature. She had frequent loose stools. That evening she began to develop shaking chills and fever. She stated that her temperature taken at home was as high as 106 degrees! She came to the Emergency Room and was subsequently admitted. On Monday afternoon, 01/24/2018, she underwent an ERCP because of an abnormality noted on an abdominal CT scan involving her biliary tree. However, she was told that the study was normal and the defect that was seen, likely represented an abnormal anatomic variant. Nonetheless, there was nothing identified that was problematic. CURRENT OUTPATIENT MEDICINES: Include Fioricet for headaches. Biotin 5000 mcg each morning, calcium with vitamins D and K 1 tablet Monday, Monday, Monday, carvedilol 3.125 mg each morning and 12.5 mg each evening if her diastolic pressure was elevated. She gets erythropoietin with her dialysis treatments. She is using Premarin 0.625 mg twice a week. She uses Levemir 10 units subcutaneously each evening, she uses magnesium oxide 400 mg twice daily, multivitamin a day, oxycodone 5 mg every 4 hours p.r.n., pantoprazole 40 mg daily, Ferrex 150 mg each evening, Mirapex 0.125 mg each evening, prednisone 2.5 mg each morning, Inderal 20 mg b.i.d., Maxalt 5 mg p.r.n. migraine headaches, and Effexor XR 1-/2 tablets (56.25 mg) each evening, Neoral 25 mg twice daily. ALLERGIES AND ADVERSE REACTIONS TO MEDICATIONS: INCLUDE ADHESIVES, ATORVASTATIN, CIPROFLOXACIN, DOXYCYCLINE, HYDROCHLOROTHIAZIDE, IODINATED DIAGNOSTIC AGENTS, LEVOFLOXACIN, MORPHINE, STATINS, SULFA ANTIBIOTICS, SUMATRIPTAN, AND TRIAMTERENE. REVIEW OF SYSTEMS: The remainder of her review of systems is unremarkable other than those issues noted above. OBJECTIVE: GENERAL: On physical examination when seen by me, Mrs. Bowling appeared relatively well, but somewhat chronically ill. VITAL SIGNS: Her blood pressure which had been low earlier in her hospitalization was 129/72 in the right arm in the semi-Cameron position, her pulse 69 and regular, respiratory rate 20, her pulse ox 98% on room air. She was afebrile (36.5). SKIN: Her skin showed normal skin turgor. She had multiple scars from prior surgical procedures that include a right lower quadrant scar from her kidney transplant and multiple abdominal scars from prior surgeries. LYMPHATICS: Show no palpable lymphadenopathy. HEAD: Her head is normal. EYES: Grossly normal. She has no conjunctival icterus. Pupils are round, equal, and reactive to light. I did not examine the ocular fundi. EARS, NOSE, MOUTH, AND THROAT: All unremarkable. Her oral mucous membranes are now moist. NECK: Her neck is supple. She has no jugular venous distention or carotid bruit. CHEST: Her chest is clear to auscultation. CARDIAC EXAMINATION: Shows a regular rhythm. There are no murmurs or gallops. ABDOMEN: Her abdomen is nontender. She has multiple scars as noted. Bowel sounds are normal. Her renal graft is palpable in the left lower quadrant. There is no bruit over the graft. She has no organomegaly or mass. Bowel sounds are relatively normal, although she does have an occasional more high-pitched sound. EXTREMITIES: Show no cyanosis, clubbing, or peripheral edema. She has some chronic skin changes of her distal lower extremities. Peripheral pulses are intact. NEUROLOGIC: Her neurologic exam shows a minimal left facial weakness from her prior fall. Otherwise, she has no lateralizing findings. HOSPITAL COURSE: Since admission, the patient has been continued on her usual medications. She was cultured, cultures are pending. She was started on imipenem/cilastatin in an appropriate dose. She also received a single dose of daptomycin. She has gotten stress dose steroids. She has been hydrated with intravenous saline. She was given Dificid because antibiotics were being administered as she has been instructed to do. PERTINENT LABORATORY WORK: Currently shows a white count of 5390 with 91.8% neutrophils, 5.2% lymphocytes, 1.9% monocytes, 0.7% eosinophils, and 0.2% basophils. Her hemoglobin is 11.4, her hematocrit 35.4, and her platelet count 176,000. Her prothrombin time is 11.1 with an INR of 1.1. Her urinalysis shows a specific gravity of 1.025. She has 2+ protein. She has 1-5 white cells, 0-4 red cells, and 1-5 hyaline casts per high-power field. She has greater than 30 epithelial cells per low-power field. Her clinical chemistries from this morning show a sodium of 138 mmol/L, potassium 3.6 mmol/L, chloride is 104 mmol/L, and CO2 content 24 mmol/L. Her BUN is 27, creatinine 3.25. Her blood sugars have varied from 90-134. Her lactic acid 0.7 this morning. Her calcium is 8.2. On admission, her total bilirubin 1.2. Her AST is 31. Her ALT is 20. Her alkaline phosphatase 120. Her total protein 7.2, albumin 2.9, and her lipase 1.95. A CT scan of her abdomen and pelvis done earlier today shows a nonobstructive bowel pattern. She does have evidence of intraductal air within the biliary system. That is quite possibly related to the ERCP that she had done on the day prior to her admission. She had the other changes of bowel resection as previously noted. Her blood cultures thus far are negative. Shiga toxin is pending. Stool cultures are pending. She had a rotavirus antigen which is negative. She was C. difficile positive today. Since her C. difficile was found to be positive, she was started on oral vancomycin again. ASSESSMENT: Mrs. Bowling is readmitted with abdominal pain and diarrheal stools. She is C. diff positive. However, there would appear to be somewhat more to this than recurrent C. diff infection. I would be concerned about the possibility of a positive blood culture. I doubt that it is related to her dialysis catheter. If so, it should be a Gram-positive organism. It would also present significant problems for us if she has positive blood cultures since there would be no way for sure of knowing whether or not her catheter is infected. Her serum creatinine with hydration has come down a bit since she was hydrated and that is worth following. We were planning to do so on an outpatient basis as we reduce the frequency of her dialysis. We will follow that on a day-to-day basis. It would be possible that we can withdraw her from dialysis completely at this time if her serum creatinine remains in the range of the low 3s. No other immediate recommendations for now. I will continue to follow her with you.
--- NOTE | 2018-01-25 19:39 | GASTROINTESTINAL CONSULTATION ---
DATE OF CONSULTATION: 01/25/2018 GI consult note. REASON FOR EVALUATION: Recurrent C. diff infection. HISTORY OF PRESENT ILLNESS: The patient is a 58-year-old with history of polycystic kidney disease status post renal transplant in the left lower quadrant. Her [place] kidneys have been removed bilaterally. 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 In the meantime, during her transplant evaluation, she was found to have a dilated common bile duct and underwent an ERCP yesterday in [place], which was essentially negative. She has had a previous sphincterotomy. She has been having diarrhea for 3 days and when she presented to the hospital today with a fever she ended up getting admitted and the stool was positive for C. diff. At home, she has been prescribed Dificid 200 mg twice a day for 10 days to be taken if she has recurrent C. diff and has brought this medication with her to the hospital. She did have a fecal transplant in May for recurrent C. diff infections in the [place] area. PAST MEDICAL HISTORY: Remarkable for polycystic kidney disease, kidney transplant, hypertension, diabetes, recurrent C. diff infections, hyperlipidemia, history of a partial small bowel obstructions in the past as well. MEDICATIONS: Per list. ALLERGIES: MORPHINE, CIPRO, ADHESIVES, LEVOFLOXACIN, DOXYCYCLINE, ATORVASTATIN, TRIAMTERENE, SULFA, HYDROCHLOROTHIAZIDE, SUMATRIPTAN, STATINS and IODINATED DIAGNOSTIC AGENTS. FAMILY HISTORY: Positive for breast cancer, diabetes, heart disease, kidney disease, kidney stones. SOCIAL HISTORY: The patient is . She lives with her . She has a job outside the home, does not smoke, does not drink any alcohol. REVIEW OF SYSTEMS: Positive for some fatigue and some abdominal pain. The remainder is negative. PHYSICAL EXAMINATION: GENERAL: Patient appears in no acute distress. VITAL SIGNS: Blood pressure is 102/67, pulse 100, room air saturations 98%. NEUROLOGIC: Nonfocal. ABDOMEN: Shows a palpable kidney in the left lower quadrant. She has a midline incision with an incisional hernia in the epigastric area with some mild tenderness and distention in the epigastric area. LABORATORY: Shows a white count of 5.39, hemoglobin 11.4, platelets 176,000. Liver profile is normal. IMPRESSION: Patient has recurrent Clostridium difficile infection. PLAN: At this point, I would place her on Dificid 200 mg twice a day for 10 days. If she relapses, then I would recommend if she go directly for fecal transplant as an outpatient. We will follow the patient during her hospitalization.
[2018-01-25] MEDS ORDERED: TRAMADOL HCL 50 MG TAB PO STA (20:19)
[2018-01-25] MEDS ORDERED: RIZATRIPTAN BENZOATE 10 MG TAB PO PRN (20:30)
[2018-01-25] MEDS ORDERED: BUTALBITAL/ACETAMIN/CAFFEINE TAB PO PRN (20:30)
[2018-01-25] MEDS ORDERED: IRON COMPLEX POLYSACCHARIDE W/VIT C 150 MG CAP PO SCH (21:00)
[2018-01-25] MEDS ORDERED: VENLAFAXINE HCL 37.5 MG TAB PO SCH (21:00)
[2018-01-25] MEDS ORDERED: PRAMIPEXOLE DIHYDROCHLORIDE 0.25MG TAB PO SCH (21:00)
[2018-01-26] MEDS: IMIPENEM-CILASTATIN 200 MG in DEXTROSE 5% 100ML 100 ML IV SCH ×3 (01:27→13:22)
[2018-01-26 02:58] VITALS: BP 148/81; PULSE 53; TEMP 36.5; O2SAT 96
[2018-01-26] MEDS: HYDROCORTISONE IV 50 MG in SYRINGE 0 ML IV SCH ×2 (05:39→13:22)
[2018-01-26 06:50] VITALS: BP 174/99; PULSE 58; TEMP 36.6; O2SAT 97
[2018-01-26 07:01] LABS: HEMATOCRIT 30.2 % (37-47); HEMOGLOBIN 9.3 g/dL (12.0-16.0); IG# 0.01 K/uL (0.00-0.02); LYMPH % 19.8 %; LYMPH ABS # 0.79 K/uL (1.2-3.4); MEAN CORPUSCULAR HEMOGLOBIN 29.2 pg (25-34); MEAN CORPUSCULAR HGB CONC 30.8 g/dl (32-36); MEAN PLATELET VOLUME 9.7 fL (7.4-10.4); MONO % 10.8 %; MONO ABS # 0.43 K/uL (0.11-0.59); NEUT % 69.1 %; NEUT ABS # 2.75 K/uL (1.4-6.5); PLATELET COUNT 154 K/uL (130-400); RED CELL DISTRIBUTION WIDTH CV 17.3 % (11.5-14.5); RED CELL DISTRIBUTION WIDTH SD 60.2 fL (36.4-46.3); WHITE BLOOD COUNT 3.98 K/uL (4.8-10.8)
[2018-01-26 07:29] LABS: ALBUMIN 2.5 gm/dl (3.4-5.0); CALCIUM 8.5 mg/dl (8.5-10.1); CREATININE 3.2 mg/dl (0.60-1.20); POTASSIUM 3.7 mmol/L (3.5-5.1)
[2018-01-26 07:38] LABS: TOTAL PROTEIN 5.8 gm/dl (6.4-8.2)
[2018-01-26] MEDS: MAGNESIUM OXIDE 400 MG TAB PO SCH (08:10)
[2018-01-26] MEDS: SODIUM CHLORIDE 0.9% 1000ML 1,000 ML IV SCH (08:10)
[2018-01-26] MEDS: CycloSPORINE (NEORAL) 25 MG CAP PO SCH (08:11)
[2018-01-26] MEDS: FIDAXOMICIN TAB 200 MG TAB PO SCH (08:11)
[2018-01-26] MEDS: PANTOprazole SOD 40 MG TAB PO SCH (08:11)
[2018-01-26] MEDS: HEPARIN SOD 5000 UNIT/0.5 ML CARP SQ SCH (08:13)
[2018-01-26] MEDS ORDERED: CARVEDILOL 6.25 MG TAB PO SCH ×2 (09:00→21:00)
--- NOTE | 2018-01-26 09:52 | Clinical Documentation Query ---
CLINICAL DOCUMENTATION QUERY Dr. MILTON, In your clinical opinion is this patient being managed for: ( ) End stage renal disease ( ) Not Agree ( ) Other explanation of clinical findings (Please Explain. If no explanation given, this would be considered a no response.) ( ) Unable to determine ( ) Need to Discuss (Please call CDS via extension or qliq. If no interaction occurs this is considered a no response.) The medical record reflects the following clinical findings, treatment, and risk factors. Clinical Indicators: 58 yo female presenting with C diff colitis and sepsis. Has hx of polycystic kidney diease s/p bilateral nephrectomy and s/p L renal transplant. GFR range of 8.2-26.2 over the past 6 months Treatment: outpatient dialysis, nephrology consult, Risk Factors:polycystic kidney disease, s/p bilateral nephrectomy and s/p L renal transplant Please clarify and document your clinical opinion in the progress notes and discharge summary. Terms such as "probable", "suspected", "likely", "questionable", "possible", or "still to be ruled out" are acceptable. IF IN AGREEMENT, YOU MUST DOCUMENT ABOVE DIAGNOSTIC STATEMENT IN DAILY PROGRESS NOTES AND DISCHARGE SUMMARY. This document is not part of the patient's record. Thank You, Eve Richey, RN [phone]
[2018-01-26] MEDS ORDERED: EPOETIN ALFA 40,000 UNITS/ML VIAL SQ ONE (10:15)
--- NOTE | 2018-01-26 11:31 | PROGRESS NOTE ---
DATE: 01/26/2018 SUBJECTIVE: Mrs. Bowling says that she is feeling quite well today. She has no abdominal pain. She has had no bowel movements, and therefore, no diarrhea. She has had no shaking chills or fevers. She continues to make a reasonable amount of urine. She has no symptoms of uremia and no symptoms of volume overload. Her weight since admission is up about 3.8 kg. OBJECTIVE: GENERAL: She appears healthy and well. VITAL SIGNS: She is afebrile (36.6), her blood pressure is 174/99, her pulse is 58 and regular, respiratory rate 16, her pulse oximetry is 96%-97% on room air. SKIN: Shows multiple scars from prior surgical procedures and trauma. There is no rash or infiltrative skin disease. She has a tunneled hemodialysis catheter exiting beneath the distal right clavicle. It is in the right IJ. She has no tenderness along the subcutaneous tunnel or discharge from the exit site. She has no palpable adenopathy. HEENT: Her head is normal. Her eyes are grossly normal. The ocular fundi are not examined. Ears, nose, mouth, and throat are all unremarkable. Her oral mucous membranes are moist. NECK: Supple. There is no jugular venous distention, carotid bruit, or thyromegaly. RESPIRATORY: Her chest is clear to auscultation. CARDIAC: Exam shows regular rhythm. S1 and S2 are normal. I hear no murmur or gallop. GASTROINTESTINAL: Her abdomen is minimally distended. It is soft and nontender. There is no obvious organomegaly or mass. Her renal graft is felt in the left lower quadrant. I do not hear a bruit over the graft. MUSCULOSKELETAL: Extremities show no cyanosis, clubbing, or peripheral edema. Peripheral pulses are diminished but present. NEUROLOGIC: Exam shows some minimal left facial weakness, otherwise no lateralizing findings. LABORATORY DATA: Pertinent laboratory work from today shows a white count of 3980 with a normal differential, her hemoglobin is 9.3, hematocrit 30.2, and her platelet count 154,000. Her clinical chemistries show sodium of 138 mmol/L, potassium 3.7 mmol/L, chloride is 109 mmol/L, CO2 content 21 mmol/L, her BUN is 33, her creatinine is 3.20. Her random blood sugar is 155 with an IV running. Her serum calcium is 8.5. Her total bilirubin 0.6, her AST is 21, ALT 13, alkaline phosphatase 866. Her total protein is 5.8, albumin 2.5. Her blood cultures done at the time of admission continue to show no growth. Her retrovirus antigen is negative. As noted previously, her stool for C. difficile toxin is positive. Her stool for white cells showed no white cells seen. She did have normal fecal patrick noted on stain. ASSESSMENT: Mrs. Bowling appears to be doing well. Presumably, her gastrointestinal symptoms would have been related to Clostridium difficile colitis. That would not account, however, for the high spiking temperature that she had at the time of admission. However, that occurred shortly after she had an ERCP. The ERCP likely accounts for the area in her biliary tree and that also might have accounted for her high fever, which was likely procedure related or drug related from something that she might have received. Nonetheless, those symptoms have resolved and all cultures are negative. From the standpoint of her renal function, with hydration, it has returned to its baseline, which did not require dialysis. I think we can leave her off dialysis for now. FURTHER RECOMMENDATIONS: Discharged on C. difficile toxin. Appointment with me on Tuesday, January 30, 2018. Will check laboratory work at that time. No outpatient dialysis. Continue with Dificid. She will continue with all of her other usual medications that she was taking prior to admission. We will use Procrit now to stimulate her marrow. She has used that in the past.
--- NOTE | 2018-01-26 11:44 | Family Medicine Progress Note ---
Progress Note Date of Service January 26, 2018. Subjective Pt evaluation today including: conversation w/ patient, physical exam, chart review, lab review Patient is feeling well--tolerating diet, ambulating well. No diarrhea, vomiting. Minimal abdominal pain. Constitutional: No fever, No chills, No sweats Respiratory: No cough, No sputum, No wheezing Cardiovascular: No chest pain, No edema, No palpitations Abdomen: No pain, No nausea, No vomiting, No diarrhea, No constipation, No GI bleeding Female : No dysuria, No urinary frequency Medications Current Inpatient Medications Medications (Trade) Dose Ordered Sig/Dominique Route Start Time Stop Time Status Last Admin Dose Admin Heparin Sodium (Porcine) (Heparin Sq 5000 Unit/0.5ml) 5,000 unit Q12 SQ 01/25/18 09:00 02/24/18 08:59 01/26/18 08:13 5,000 UNIT Sodium Chloride 1,000 ml @ 150 mls/hr Q6H40M IV 01/25/18 06:00 02/24/18 05:59 01/26/18 08:10 150 MLS/HR Acetaminophen (Tylenol Tab) 650 mg Q4H PRN PO 01/25/18 04:15 02/24/18 04:14 01/25/18 18:24 650 MG Cyclosporine (Neoral Cap) 25 mg BID PO 01/25/18 09:00 02/24/18 08:59 01/26/18 08:11 25 MG Pantoprazole Sodium (Protonix Tab) 40 mg DAILY PO 01/25/18 09:00 02/24/18 08:59 01/26/18 08:11 40 MG Polysaccharide Iron Complex (Niferex-150 w/ Vit C Cap) 150 mg QPM PO 01/25/18 21:00 02/24/18 20:59 01/25/18 19:56 150 MG Pramipexole Dihydrochloride (miraPEX TAB) 0.125 mg HS PO 01/25/18 21:00 02/24/18 20:59 01/25/18 19:55 0.125 MG Prednisone (PredniSONE TAB) 2.5 mg QAM PO 01/25/18 09:00 02/24/18 08:59 01/26/18 08:11 2.5 MG Venlafaxine HCl (effeXOR TAB) 56.25 mg HS PO 01/25/18 21:00 02/24/18 20:59 01/25/18 19:54 56.25 MG Magnesium Oxide (Mag-Ox Tab) 400 mg BID PO 01/25/18 09:00 02/24/18 08:59 01/26/18 08:10 400 MG Hydrocortisone Sodium Succinate 50 mg/Syringe 1 ml @ 4 mls/min Q8H IV 01/25/18 06:00 02/24/18 05:59 01/26/18 05:39 4 MLS/MIN Imipenem/ Cilastatin Sodium (Consult) 1 ea UD PRN N/A 01/25/18 06:00 02/24/18 05:59 Imipenem/ Cilastatin Sodium 200 mg/Dextrose 108 ml @ 108 mls/hr Q6H IV 01/25/18 08:00 01/27/18 07:59 01/26/18 05:40 108 MLS/HR Daptomycin (Consult) 1 ea UD PRN N/A 01/25/18 06:30 02/24/18 06:29 Miscellaneous Information (Order Awaiting Action) 1 ea QS N/A 01/25/18 16:00 02/24/18 15:59 01/25/18 19:50 1 EA Fidaxomicin (Dificid Tab) 200 mg BID PO 01/25/18 21:00 02/08/18 20:59 01/26/18 08:11 200 MG Daptomycin 400 mg/ Syringe 8 ml @ 4 mls/min Q48H IV 01/27/18 03:00 01/27/18 12:00 Acetaminophen/ Butalbital/ Caffeine (Fioricet Tab) 1 tab Q4 PRN PO 01/25/18 20:30 02/24/18 20:29 01/25/18 21:18 1 TAB Rizatriptan Benzoate (Maxalt Tab) 5 mg UD PRN PO 01/25/18 20:30 02/24/18 20:29 Carvedilol (Coreg Tab) 6.25 mg QAM PO 01/27/18 09:00 02/26/18 08:59 Carvedilol (Coreg Tab) 12.5 mg QPM PO 01/26/18 21:00 02/25/18 20:59 Objective Vital Signs Date Time Temp Pulse Resp B/P (MAP) Pulse Ox O2 Delivery O2 Flow Rate FiO2 01/26/18 08:00 Room Air 01/26/18 06:50 36.6 58 16 174/99 (124) 97 Room Air 01/26/18 04:00 Room Air 01/26/18 02:58 36.5 53 16 148/81 (103) 96 Room Air 01/26/18 00:00 Room Air 01/25/18 23:11 36.6 46 17 181/87 (118) 97 Room Air 01/25/18 20:18 36.4 58 18 167/83 (111) 97 Room Air 01/25/18 20:00 Room Air 01/25/18 16:00 Room Air 01/25/18 15:08 36.4 54 16 146/80 (102) 99 Room Air 01/25/18 12:00 Room Air Physical Exam General Appearance: WD/WN, no apparent distress Neck: supple, no adenopathy, thyroid normal Respiratory/Chest: chest non-tender, lungs clear, normal breath sounds, no respiratory distress Cardiovascular: regular rate, rhythm, no edema, no murmur Abdomen: normal bowel sounds, non tender, soft, no organomegaly, no pulsatile mass, + pertinent finding (no distension ) Extremities: non-tender Neurologic/Psychiatric: alert, normal mood/affect, oriented x 3 Skin: normal color, warm/dry, no rash Laboratory Results 01/26/18 06:22 Red Blood Count 3.18, Mean Corpuscular Volume 95.0, Mean Corpuscular Hemoglobin 29.2, Mean Corpuscular Hemoglobin Concent 30.8, Mean Platelet Volume 9.7, Neutrophils (%) (Auto) 69.1, Lymphocytes (%) (Auto) 19.8, Monocytes (%) (Auto) 10.8, Eosinophils (%) (Auto) 0.0, Basophils (%) (Auto) 0.0, Neutrophils # (Auto ) 2.75, Lymphocytes # (Auto) 0.79, Monocytes # (Auto) 0.43, Eosinophils # (Auto ) 0.00, Basophils # (Auto) 0.00 01/26/18 06:22 Test 01/26/18 06:22 White Blood Count 3.98 K/uL (4.8-10.8) Red Blood Count 3.18 M/uL (4.2-5.4) Hemoglobin 9.3 g/dL (12.0-16.0) Hematocrit 30.2 % (37-47) Mean Corpuscular Volume 95.0 fL (80-100) Mean Corpuscular Hemoglobin 29.2 pg (25-34) Mean Corpuscular Hemoglobin Concent 30.8 g/dl (32-36) Platelet Count 154 K/uL (130-400) Mean Platelet Volume 9.7 fL (7.4-10.4) Neutrophils (%) (Auto) 69.1 % Lymphocytes (%) (Auto) 19.8 % Monocytes (%) (Auto) 10.8 % Eosinophils (%) (Auto) 0.0 % Basophils (%) (Auto) 0.0 % Neutrophils # (Auto) 2.75 K/uL (1.4-6.5) Lymphocytes # (Auto) 0.79 K/uL (1.2-3.4) Monocytes # (Auto) 0.43 K/uL (0.11-0.59) Eosinophils # (Auto) 0.00 K/uL (0-0.5) Basophils # (Auto) 0.00 K/uL (0-0.2) RDW Standard Deviation 60.2 fL (36.4-46.3) RDW Coefficient of Variation 17.3 % (11.5-14.5) Immature Granulocyte % (Auto) 0.3 % Immature Granulocyte # (Auto) 0.01 K/uL (0.00-0.02) Anion Gap 8.0 mmol/L (3-11) Est Creatinine Clear Calc Drug Dose 19.1 ml/min Estimated GFR () 17.5 Estimated GFR (Non- 15.1 BUN/Creatinine Ratio 10.2 (10-20) Calcium Level 8.5 mg/dl (8.5-10.1) Total Bilirubin 0.6 mg/dl (0.2-1) Aspartate Amino Transf (AST/SGOT) 21 U/L (15-37) Alanine Aminotransferase (ALT/SGPT) 13 U/L (12-78) Alkaline Phosphatase 86 U/L (45-117) Total Protein 5.8 gm/dl (6.4-8.2) Albumin 2.5 gm/dl (3.4-5.0) Globulin 3.3 gm/dl (2.5-4.0) Albumin/Globulin Ratio 0.8 (0.9-2) Assessment and Plan 58 yo female PMH of PCKD s/p nephrectomy and Cdiff colitis s/p fecal transplant- --being treated for reoccurrence of Cdiff colitis with Dificid. Pt also receiving systemic IV abx for sepsis. Assessment; Patient reports improvement yesterday into today. She denies diarrhea and reports tolerating a regular diet. Minimal abdominal tenderness and no distension seen on exam. The patient BP is elevated and HR has normalized this am. Dc MIVF. Plan; Continue Dificid. Will discuss with ID regarding dc'ing IV abx in the setting of kidney disease. Patient has been afebrile >36hr, blood cultures NGTD >36 hrs. Restarting Coreg today. Plan by problem C.diff colitis with septic features - consulted ID, recs appreciated - PO Dificifid + probiotics - Continue IV imipenem-cilastatin, IV daptomycin for now until negative blood Cx Polycystic kidney disease s/p bilateral nephrectomy s/p left renal transplant Patient is waiting for a new renal transplant. She is not presently on dialysis. Nephrology consulted, rec appreciated - Continue cyclosporine - Continue biotin, calcium plus D plus K, magnesium oxide, and Ferrex 150. - Continue prednisone.+ stress dose hydrocortisone Other Chronic conditions Hypertension-Restarting coreg today DM- Hold home regimen, ISS with checks ac/hs GERD- Pantoprazole Restless leg syndrome- Pramipexole Depression- Venlafaxine VTE ppx- Hep SC FULL CODE
[2018-01-26 12:00] VITALS: BP 174/97; PULSE 68; TEMP 36.2; O2SAT 98
[2018-01-26] MEDS ORDERED: ULTIMATE FLORA PO SCH (12:00)
--- NOTE | 2018-01-26 13:56 | Progress Note ---
Subjective Date of Service: January 26, 2018. Subjective Pt evaluation today including: conversation w/ patient, conversation w/ family , physical exam, chart review, lab review pt remains on abx, along with dificid. blood cultures negative, afebrile. overall feeling much better. She is asking to go home, states she has PCP visit on Monday. no abd pain, eating well. no f/c. no diarrhea. all remaining ros reviewed and are negative. Problem List Medical Problems: (1) Abdominal pain Status: Acute (2) Abdominal pain Status: Acute (3) Acute on chronic renal failure Status: Acute (4) Acute on chronic renal failure Status: Acute (5) MARCIO (acute kidney injury) Status: Acute (6) CKD (chronic kidney disease) Status: Acute (7) Elevated lipase Status: Acute (8) Fever Status: Acute (9) Forearm fractures, both bones, closed Status: Acute (10) Fracture of zygomaticomaxillary complex Status: Acute (11) History of fever Status: Acute (12) History of small bowel obstruction Status: Acute (13) Ileus Status: Acute (14) Immunocompromised Status: Acute (15) Kidney Transplant Status Status: Acute (16) Malaise and fatigue Status: Acute (17) Nausea, vomiting, and diarrhea Status: Acute (18) Prerenal renal failure Status: Acute (19) Renal failure Status: Acute (20) Renal insufficiency Status: Acute (21) Renal transplant rejection Status: Acute (22) Right upper quadrant abdominal pain Status: Acute (23) Right upper quadrant abdominal pain Status: Acute (24) Rigors Status: Acute (25) Sepsis Status: Acute (26) Small bowel obstruction Status: Acute (27) Syncope and collapse Status: Acute (28) UTI (urinary tract infection) Status: Acute (29) Vomiting Status: Acute Social History Problems: (1) History of renal transplant Status: Acute (2) History of renal transplant Status: Acute Objective Vital Signs Date Time Temp Pulse Resp B/P (MAP) Pulse Ox O2 Delivery O2 Flow Rate FiO2 01/26/18 12:00 36.2 68 18 174/97 (122) 98 Room Air 01/26/18 12:00 Room Air 01/26/18 08:00 Room Air 01/26/18 06:50 36.6 58 16 174/99 (124) 97 Room Air 5/4/18 04:00 Room Air 01/26/18 02:58 36.5 53 16 148/81 (103) 96 Room Air 01/26/18 00:00 Room Air 01/25/18 23:11 36.6 46 17 181/87 (118) 97 Room Air 01/25/18 20:18 36.4 58 18 167/83 (111) 97 Room Air 01/25/18 20:00 Room Air 01/25/18 16:00 Room Air 01/25/18 15:08 36.4 54 16 146/80 (102) 99 Room Air Physical Exam General Appearance: WD/WN, no apparent distress Eyes: normal inspection, EOMI Neck: supple Respiratory/Chest: lungs clear, normal breath sounds, no respiratory distress Cardiovascular: regular rate, rhythm, no edema Abdomen: non tender, soft Extremities: non-tender, no pedal edema Neurologic/Psychiatric: alert, oriented x 3 Skin: normal color Laboratory Results Item Value Date Time C.difficile Toxin B Gene (PCR) - Final Complete 01/25/18 1025 Stool Positive for C. difficile toxin B gene Blood Culture - Preliminary Resulted 01/25/18 0115 Blood NO GROWTH TO DATE. Blood Culture - Preliminary Resulted 01/25/18 0113 Blood NO GROWTH TO DATE. Last 24 Hours Test 01/26/18 06:22 White Blood Count 3.98 K/uL Red Blood Count 3.18 M/uL Hemoglobin 9.3 g/dL Hematocrit 30.2 % Mean Corpuscular Volume 95.0 fL Mean Corpuscular Hemoglobin 29.2 pg Mean Corpuscular Hemoglobin Concent 30.8 g/dl Platelet Count 154 K/uL Mean Platelet Volume 9.7 fL Neutrophils (%) (Auto) 69.1 % Lymphocytes (%) (Auto) 19.8 % Monocytes (%) (Auto) 10.8 % Eosinophils (%) (Auto) 0.0 % Basophils (%) (Auto) 0.0 % Neutrophils # (Auto) 2.75 K/uL Lymphocytes # (Auto) 0.79 K/uL Monocytes # (Auto) 0.43 K/uL Eosinophils # (Auto) 0.00 K/uL Basophils # (Auto) 0.00 K/uL RDW Standard Deviation 60.2 fL RDW Coefficient of Variation 17.3 % Immature Granulocyte % (Auto) 0.3 % Immature Granulocyte # (Auto) 0.01 K/uL Sodium Level 138 mmol/L Potassium Level 3.7 mmol/L Chloride Level 109 mmol/L Carbon Dioxide Level 21 mmol/L Anion Gap 8.0 mmol/L Blood Urea Nitrogen 33 mg/dl Creatinine 3.20 mg/dl Est Creatinine Clear Calc Drug Dose 19.1 ml/min Estimated GFR () 17.5 Estimated GFR (Non- 15.1 BUN/Creatinine Ratio 10.2 Random Glucose 155 mg/dl Calcium Level 8.5 mg/dl Total Bilirubin 0.6 mg/dl Aspartate Amino Transf (AST/SGOT) 21 U/L Alanine Aminotransferase (ALT/SGPT) 13 U/L Alkaline Phosphatase 86 U/L Total Protein 5.8 gm/dl Albumin 2.5 gm/dl Globulin 3.3 gm/dl Albumin/Globulin Ratio 0.8 Assessment and Plan (1) Clostridium difficile diarrhea Assessment & Plan: continue dificid x 10 days. will stop IV abx. ok for d/c when otherwise stable. Continued [facility] stay due to: multiple IV medications needed Discharge planning: home
--- NOTE | 2018-01-26 14:24 | PROGRESS NOTE ---
DATE: 01/26/2018 SUBJECTIVE: Patient reports no abdominal pain and no diarrhea today. OBJECTIVE: VITAL SIGNS: Normal. She is afebrile. Her fecal leukocytes are negative. Her blood cultures continue to remain no growth at this time. She is on day #2 of her Dificid for C. diff colitis. IMPRESSION: Patient has recurrent Clostridium difficile colitis which is being treated successfully so far with Dificid. She is at risk for relapse which she has had in the past and had a fecal transplantation. She is on a waiting list for repeat kidney transplant and she is concerned that she will need another fecal transplant even if she clears with Dificid in order to remain on the transplant list. She thought that they were doing this in [place] at [facility], so I will look into that and hopefully make a referral there. I recommended that she take 10 days of Dificid at 200 mg twice a day to complete her treatment course.
[2018-01-26] MEDS ORDERED: DFC200 PO (14:39)
--- NOTE | 2018-01-26 14:46 | Discharge Instructions ---
Discharge Instructions Date of Service January 26, 2018. Admission Reason for Admission: Diarrhea Of Presumed Infectious Origin, Sirs Discharge Discharge Diagnosis / Problem: recurrent Cdiff colitis Discharge Goals Goal(s): Diagnostic testing, Therapeutic intervention Activity Recommendations Activity Limitations: resume your previous activity . Instructions / Follow-Up Instructions / Follow-Up a) recurrent Cdiff -it appears that the recurrence of Cdiff was what was making you sick. fortunately we haven't seen anything else of note on your labs, workup, or cultures. we'll treat for 14 days with the dificid; and Dr Bailey will be working on referral for a repeat fecal transplant -as we discussed, the literature on recurrent Cdiff strongly shows a benefit of preventative antibiotics in the scenario of someone who's had recent Cdiff who needs antibiotics for a different reason (such as a pneumonia); while it's "fudging the numbers" a bit in a situation where it's going to be physiologic stress and immune compromise instead of actually being on systemic antibiotics, it's well worth discussing with the transplant team about having a Cdiff related preventative antibiotic around the time of your transplant b) fever -given that we're not seeing any other cause for your fever, it most likely does relate to the Cdiff, and that alone; however, having just had the endoscopic procedure is something that we can't ignore. given no evidence of a biliary tree infection, we feel it would be more harmful than beneficial to continue antibiotics for an infection that it does NOT appear you have, yet at the same time if you were to have a recurrent fever (especially in the next few days) we'd want you seen right away to re-evaluate for the outside possibility of a biliary infection showing up in a very atypical way. that is a long winded way of saying if you were to have a temp above 101F in the next few days , we'd want you back here right away. Current Hospital Diet Patient's current hospital diet: Renal Diet, Low Sodium Diet (2gm Na) Discharge Diet Recommended Diet: Low Sodium Diet (2gm Na), Renal Diet Pending Studies Studies pending at discharge: no Medical Emergencies . Who to Call and When: Medical Emergencies: If at any time you feel your situation is an emergency, please call 911 immediately. . Non-Emergent Contact Non-Emergency issues call your: Primary Care Provider, Incident Response Manager . . "Provider Documentation" section prepared by Garland Jorge. .
--- NOTE | 2018-01-26 14:52 | Discharge Summary ---
Discharge Summary Date of Service January 26, 2018. Discharge Summary Admission Date: January 25, 2018 at 04:13 Discharge Date: January 26, 2018 Discharge Disposition: Home Principal Diagnosis: Cdiff colitis Immunizations: Have You Had Influenza Vaccine: Yes Influenza Vaccine Date: Jul 11, 2012 History of Tetanus Vaccine?: Yes History of Pneumococcal: Yes History of Hepatitis B Vaccine: Yes Hepatitis Immunization Date: February 09, 2008 Procedures: [~ rep ct add3]] CHEST ONE VIEW PORTABLE CLINICAL HISTORY: Fever cough COMPARISON STUDY: 11/23/2017 FINDINGS: Bilateral calcified breast implants. Probable superimposed bibasilar parenchymal infiltrates. Upper lungs are clear. PermCath in superior vena cava. IMPRESSION: Bibasilar parenchymal infiltrates. ABD/PELVIS NO IV OR ORAL CONT CT DOSE: 310.87 mGy.cm HISTORY: Pain Fever. ileus on last ct TECHNIQUE: Multiaxial CT images of the abdomen and pelvis were performed without contrast. A dose lowering technique was utilized adhering to the principles of ALARA. COMPARISON STUDY: 01/20/2018 FINDINGS: Pericardial effusion measuring 8 mm in maximum thickness. Small bilateral pleural effusions. Mild bilateral basilar atelectatic change. Focal pleural thickening lateral aspect left midlung. Multiple hepatic cysts similar. Intrahepatic biliary ductal air possibly on the basis of cholecystectomy and/or postoperative sphincterotomy-type change depending on clinical history. Prominence of the common bile duct is similar compared to the prior study. Bilateral nephrectomy and cholecystectomy. Left pelvic renal transplant. Nonobstructive bowel pattern. Trace amount of free fluid within the pelvic cul-de-sac. Prior partial colectomy. Calcified bilateral breast implants. IMPRESSION: 1. Nonobstructive bowel pattern. 2. Interval development of intraductal air within the biliary system possibly postoperative although clinical correlation is suggested. 3. Small bilateral pleural effusions with mild bibasilar atelectatic change. 4. Pericardial effusion with a maximum thickness of 8 mm. 5. Operative findings of a partial colectomy, cholecystectomy, and bilateral nephrectomy. Medication Reconciliation New Medications: Fidaxomicin (Dificid) 200 Mg Tab 200 MG PO BID, #28 TAB Continued Medications: Acetamin/Butalbital/Caffeine (Fioricet) 1 Ea Tab 1 TAB PO Q4 PRN for Headache, TAB Biotin (Biotin 5000) 5 Mg Cap 5000 MCG PO QAM Calcium W/ Vitamins D & K (Calcium + D + K) 1 Tab Tab 1 TABLET PO MWF Carvedilol (Carvedilol) 6.25 Mg Tab 3.125 MG PO QAM, #180 TAKE IF DIALOSTIC BP IS ABOVE 110 Carvedilol (Carvedilol) 6.25 Mg Tab 12.5 MG PO QPM TAKE IF BP DIALOSTIC IS ABOVE 110 Cyclosporine (Neoral) 25 Mg Cap 25 MG PO BID TOTAL DOSE 75 MG. Epoetin Kvng (Procrit) 40,000 Units Inj 1 DOSE INJ WK PRN for ANEMIA, #4 DEPENDS ON BLOOD COUNT Estrogens, Conjugated (Premarin) 0.625 Mg Tab 0.625 MG PO 2XWK, TAB monday and Insulin Detemir (Levemir Flextouch) 100 Unit/Ml Inj 10 UNITS SQ PM Magnesium Oxide (Mg Supplement (Magnesium) 400 Mg Cap 400 MG PO BID Multivitamin (Multivitamin) Tab 1 TAB PO QAM Oxycodone Hcl (Oxycodone Hcl) 5 Mg Cap 5 MG PO Q4 PRN for Pain Pantoprazole (Pantoprazole Sodium) 40 Mg Tab 40 MG PO DAILY Polysaccharide Iron Complex (Ferrex 150) 150 Mg Cap 150 MG PO QPM Pramipexole (Mirapex) 0.125 Mg Tab 0.125 MG PO HS, TAB Prednisone (Prednisone) 2.5 Mg Tab 2.5 MG PO QAM Propranolol (Inderal) 20 Mg Tab 20 MG PO AMPM for Migraine Rizatriptan Benzoate (Maxalt) 5 Mg Tab 5 MG PO UD PRN for Migraine Venlafaxine Hcl (Effexor) 37.5 Mg Tab 56.25 TAB PO HS 1 & 1/2 TABLET DOSE Discharge Exam Review of Systems: Constitutional: No fever, No chills, No sweats Respiratory: No cough, No sputum, No wheezing, No shortness of breath Cardiovascular: No chest pain, No edema, No palpitations Abdomen: No pain, No nausea, No vomiting, No diarrhea Genitourinary - Female: No dysuria, No urinary frequency, No urinary urgency Physical Exam: General Appearance: WD/WN, no apparent distress Neck: supple, no adenopathy Respiratory/Chest: chest non-tender, lungs clear, normal breath sounds, no respiratory distress Cardiovascular: regular rate, rhythm, no murmur Abdomen / GI: normal bowel sounds, non tender, soft, no organomegaly, no pulsatile mass Extremities: normal inspection, no calf tenderness Neurologic/Psychiatric: alert, normal mood/affect, oriented x 3 Skin: normal color, warm/dry, no rash Hospital Course 58 yo F with h/o of polycystic kidney disease s/p bilateral nephrectomy and L renal transplant, h/o C. difficile colitis s/p fecal transplant was admitted for abdominal pain and diarrhea with fever and hypotension in the ER. Patient was found to have reoccurrence of C-Diff colitis--patient was started of Dificid , 14 day course. In addition, the patient was started on broad spectrum abx to cover for possible sepsis. The patient showed marked improvement; decreased abdominal pain, diarrhea. At the time of discharge, the patient's exam was unremarkable--no tenderness, no distension. The patient was discharged with Dificid after >24 hours negative blood cultures. Dr Bailey will be working on referral for a repeat fecal transplant. It was discussed at discharge that the patient may benefit from a preventative abx for recurrent cdiff. Plan by problem C.diff colitis with septic features - consulted ID, recs appreciated - PO Dificifid + probiotics -IV imipenem-cilastatin, IV daptomycin --dc'ed after 24 hours of negative cultures Polycystic kidney disease s/p bilateral nephrectomy s/p left renal transplant Patient is waiting for a new renal transplant. She is not presently on dialysis. Nephrology consulted, rec appreciated - Continue cyclosporine - Continue biotin, calcium plus D plus K, magnesium oxide, and Ferrex 150. - Continue prednisone.+ stress dose hydrocortisone Other Chronic conditions Hypertension-Restarting coreg today DM- Hold home regimen, ISS with checks ac/hs GERD- Pantoprazole Restless leg syndrome- Pramipexole Depression- Venlafaxine VTE ppx- Hep SC Resident Physician Supervision Note: I interviewed and examined the patient. Discussed with Dr. Blanton and agree with findings and plan as documented in the note. Any exceptions or clarifications are listed here: None Documented By: Garland Jorge feeling better ready to go home no complaints viatls noted nad breathing unlabored sepsis related to cdiff - home on dificid, GI to facilitate referral for fecal transplant, stable for home Total Time Spent: Greater than 30 minutes This includes examination of the patient, discharge planning, medication reconciliation, and communication with other providers. Discharge Instructions Please refer to the electronic Patient Visit Report (Discharge Instructions) for additional information. Additional Copies To Shruthi Mcbride D.O.; [place]. Giron MD
[2018-01-26] MEDS ORDERED: CARVEDILOL 12.5 MG TAB PO SCH (21:00)
[2018-01-27] MEDS ORDERED: DAPTOmycin IV 400 MG in SYRINGE 0 ML IV SCH (03:00)
[2018-01-27] MEDS ORDERED: CARVEDILOL 6.25 MG TAB PO SCH (09:00)
== END 2018-01-26 16:32 | disposition home or self-care (01) | DRG 872 ==
LOC: C.EDB 00:32 → C.2E 04:13 → EDBEDREQ 04:19 → ENRESERV 04:20
PROVIDERS: ADMIT Hospitalist; ATTEND Family Medicine
DX: A41.9 Sepsis, unspecified organism (principal); A04.71 Enterocolitis due to Clostridium difficile, recurrent; N18.4 Chronic kidney disease, stage 4 (severe); Q61.3 Polycystic kidney, unspecified; Z94.0 Kidney transplant status; E78.5 Hyperlipidemia, unspecified; E11.22 Type 2 diabetes mellitus with diabetic chronic kidney disease; J45.909 Unspecified asthma, uncomplicated; G25.81 Restless legs syndrome; I12.9 Hypertensive chronic kidney disease with stage 1 through stage 4 chronic kidney disease, or unspecified chronic kidney disease; I95.9 Hypotension, unspecified; K21.9 Gastro-esophageal reflux disease without esophagitis; F32.9 Major depressive disorder, single episode, unspecified; D63.8 Anemia in other chronic diseases classified elsewhere; Z87.440 Personal history of urinary (tract) infections; Z79.4 Long term (current) use of insulin; Z86.73 Personal history of transient ischemic attack (TIA), and cerebral infarction without residual deficits; Z87.891 Personal history of nicotine dependence; Z83.3 Family history of diabetes mellitus; Z80.3 Family history of malignant neoplasm of breast; Z84.1 Family history of disorders of kidney and ureter; Z82.49 Family history of ischemic heart disease and other diseases of the circulatory system

== ENCOUNTER → 2018-01-30 | Outpatient (CLI) | payer BC ==
[~2018-01-30] MED LIST changes: +DFC200 PO
[2018-01-30 13:29] LABS: HEMATOCRIT 33.6 % (37-47); HEMOGLOBIN 10.6 g/dL (12.0-16.0)
[2018-01-30 14:02] LABS: ALBUMIN 2.6 gm/dl (3.4-5.0); BLOOD UREA NITROGEN 43 mg/dl (7-18); CALCIUM 8.8 mg/dl (8.5-10.1); CARBON DIOXIDE 26 mmol/L (21-32); CREATININE 2.83 mg/dl (0.60-1.20); GLUCOSE 127 mg/dl (70-99); POTASSIUM 3.6 mmol/L (3.5-5.1); SODIUM 137 mmol/L (136-145)
== END | disposition home or self-care (01) ==
LOC: C.LAB1850 11:37
PROVIDERS: ATTEND Internal Medicine
DX: Q61.3 Polycystic kidney, unspecified (principal); D64.9 Anemia, unspecified

== ENCOUNTER → 2018-02-09 | Outpatient (CLI) | payer BC ==
[~2018-02-09] MED LIST changes: +METO2.5T PO
[2018-02-09 12:38] LABS: HEMOGLOBIN 12.8 g/dL (12.0-16.0)
[2018-02-09 12:59] LABS: ALBUMIN 3.2 gm/dl (3.4-5.0); BLOOD UREA NITROGEN 67 mg/dl (7-18); CALCIUM 9.6 mg/dl (8.5-10.1); CARBON DIOXIDE 21 mmol/L (21-32); CREATININE 3.41 mg/dl (0.60-1.20); GLUCOSE 106 mg/dl (70-99); POTASSIUM 5.5 mmol/L (3.5-5.1); SODIUM 137 mmol/L (136-145)
== END | disposition home or self-care (01) ==
LOC: C.LABBFT 10:36
PROVIDERS: ATTEND Internal Medicine
DX: N28.9 Disorder of kidney and ureter, unspecified (principal); Z94.0 Kidney transplant status

== ENCOUNTER 2018-02-13 07:40 | Day surgery (SDC) | payer BC ==
[~2018-02-13] VITALS: Ht 174 cm; Wt 63.6 kg
[~2018-02-13 07:40] MED LIST changes: +CEFAZOLIN 1000MG IV PUSH 7.5 ML IV SCH; +D5W AND 1/4NSS 1,000 ML IV SCH; -METO2.5T PO
[2018-02-13 08:10] VITALS: BP 186/93; PULSE 61; TEMP 36.5; O2SAT 95
[2018-02-13 08:25] VITALS: Ht 174 cm; Wt 63.6 kg
[2018-02-13] MEDS ORDERED: METO2.5T PO (08:49)
--- NOTE | 2018-02-13 09:51 | History and Physical ---
History & Physical Date February 13, 2018. (Yaneth Bermudez, PAOLA) Chief Complaint recovered kidney function, need permcath removal (Yaneth Bermudez, PAOLA) History of Present Illness The patient is a 58 year old female with multiple medical problems, including renal insufficiency s/p renal transplant, HTN, IDDM, polycystic renal disease, hyperlipidemia, seen today for removal of permcath placed 2 months ago. Pt states she was sick with a viral illness and became dehydrated. States her renal function decreased and they recommended she start HD, so she had permcath placed in November 2017. States she was at [place] at the time, d/t that is where she is being eval for another renal transplant this summer. States she has been feeling well and her renal function improved, so Dr Roy recommended she undergo permcath removal. Denies FERRIS, fever, chills, chest pain, SOB, abd pain, N/V, rest pain, claudication, other complaints. (Yaneth Bermudez, PAOLA) Allergies Coded Allergies: Iodinated Diagnostic Agents (Verified Allergy, Severe, Hx Kidney Transplant, 01/20/18) Statins (Verified Allergy, Severe, "PANCREATITIS", 01/20/18) Sumatriptan (Verified Allergy, Severe, seizure, 01/20/18) Hydrochlorothiazide (Verified Allergy, Mild, 01/20/18) Sulfa Antibiotics (Verified Allergy, Mild, ., 01/20/18) Triamterene (Verified Allergy, Mild, 01/20/18) Atorvastatin (Verified Allergy, Unknown, ?, 01/20/18) Doxycycline (Verified Allergy, Unknown, UNKNOWN, 01/20/18) Levofloxacin (Verified Allergy, Unknown, joint pain, 01/20/18) Adhesives (Verified Adverse Reaction, Unknown, SKIN TEAR, 01/20/18) Ciprofloxacin (Verified Adverse Reaction, Unknown, FATIGUE, 01/20/18) Morphine (Verified Adverse Reaction, Unknown, INEFFECTIVE, 01/20/18) Home Medications Scheduled Biotin (Biotin 5000), 5,000 MCG PO QAM Calcium W/ Vitamins D & K (Calcium + D + K), 1 TABLET PO MWF Carvedilol (Carvedilol), 3.125 MG PO QAM Carvedilol (Carvedilol), 12.5 MG PO QPM Cyclosporine (Neoral), 25 MG PO BID Estrogens, Conjugated (Premarin), 0.625 MG PO 2XWK Fidaxomicin (Dificid), 200 MG PO BID Insulin Detemir (Levemir Flextouch), 10 UNITS SQ PM Magnesium Oxide (Mg Supplement (Magnesium), 400 MG PO BID Metolazone (Zaroxolyn), Unknown Dose PO DAILY Multivitamin (Multivitamin), 1 TAB PO QAM Pantoprazole (Pantoprazole Sodium), 40 MG PO DAILY Polysaccharide Iron Complex (Ferrex 150), 150 MG PO QPM Pramipexole (Mirapex), 0.125 MG PO HS Prednisone (Prednisone), 2.5 MG PO QAM Propranolol (Inderal), 20 MG PO AMPM Venlafaxine Hcl (Effexor), 56.25 TAB PO HS Scheduled PRN Acetamin/Butalbital/Caffeine (Fioricet), 1 TAB PO Q4 PRN for Headache Epoetin Kvng (Procrit), 1 DOSE INJ WK PRN for ANEMIA Rizatriptan Benzoate (Maxalt), 5 MG PO UD PRN for Migraine Problem List Medical Problems: (1) Abdominal pain (2) Abdominal pain (3) Acute renal failure (4) Acute renal insufficiency (5) Asthma, Unspecified (6) Chronic Kidney Disease, Stage Iv (Severe) (7) Clostridium difficile diarrhea (8) Diab Raeann Wo Compl, Type Ii Or Unspec Type, Uncontrolled (9) Diarrhea of presumed infectious origin (10) Fever (11) HTN (hypertension) (12) Hyperlipidemia Nec/Nos (13) Immunosuppressed status (14) Klebsiella sepsis (15) Pancreatitis (16) Polycystic Kidney, Unspecified Type (17) SBO (small bowel obstruction) (18) SIRS (systemic inflammatory response syndrome) Surgical Problems: (1) Kidney transplant recipient (2) Kidney Transplant Status (Yaneth Bermudez PA-C) Surgical / Medical History Hx Cardiac Surgery: No Hx Abdominal Surgery: Yes (small bowel resections x1, cholecystectomy, C section 1984,umbilical hernia) Hx Cancer Surgery: No Hx Thoracic Surgery: No Hx Orthopedic: No Hx Urinary Tract Surgery: Yes (bilateral nephrectomy 2000) Past Medical/Surgical History: Depression, Diabetes, High Cholesterol, Hypertension, Kidney Disease (Yaneth Bermudez, PAFlorC) Family History Breast cancer Diabetes mellitus Heart disease Kidney disease Kidney stones (Yaneth Bermudez PA-C) Breast cancer Diabetes mellitus Heart disease Kidney disease Kidney stones (Rick Cam M.D.) Social History Smoking Status: Former Smoker Hx Tobacco Use In Past Year?: No Hx Alcohol Use - Type & Amnt: No Hx Substance Use -Type & Amnt: No (Yaneth Bermudez PA-C) Review of Systems Constitutional: No chills, No fever, No malaise Skin: No change in color Eyes: No visual changes ENMT: No sore throat Respiratory: No cough, No GOTTLIEB, No hemoptysis, No short of breath Cardiovascular: No chest pain, No palpitations, No syncope, No edema, No intermittent claudication Gastrointestinal: No abdominal pain, No nausea, No vomiting Genitourinary - Female: No dysuria, No hematuria Neurologic: No dizziness, No headache, No numbness, No tingling (Yaneth Bermudez, PAOLA) Physical Exam Constitutional: General Apperance: well-nourished, well-developed, too thin Level of Distress: NAD, chronically ill Ambulation: ambulating normally Psychiatric: Mental Status: active & alert, normal mood, normal affect Orientation: oriented except where noted, to time, to place, to person Memory: recent memory normal, remote memory normal Head: normocephalic, atraumatic Eyes: EOM: EOMI ENMT: normal ENT inspection, hearing grossly normal Neck: supple, trachea midline Lungs: Respiratory effort: no dyspnea Auscultation: no rales/crackles, no rhonchi, decreased breath sounds Cardiovascular: Apical Impulse: not displaced Heart Auscultation: RRR, no rubs, no gallops Peripheral Pulses: Pulses: full and equal, in all extremities except if noted Bruits: none appreciated Carotid Pulse: normal on the left, normal on the right Brachial Pulses: normal on the left, normal on the right Radial Pulse: normal on the left, normal on the right Femoral Pulse: normal on the left, normal on the right Posterior Tibialis Pulse: decreased on the left, decreased on the right Dorsalis Pedis Pulse: decreased on the left, decreased on the right Abdomen: Bowel Sounds: normal Inspection & Palpation: soft, non-distended, no tenderness, guarding & rebound Musculoskeletal: normal strength (5/5 throughout), normal tone Extremities: Upper Right: no cyanosis, no edema, no varicosities Upper Left: no cyanosis, no edema, no varicosities Lower Right: no cyanosis, no edema, no varicosities Lower Left: no cyanosis, no edema, no varicosities Neurologic: Cranial Nerves: grossly intact Sensation: grossly intact (Yaneth Bermudez, PA-C) Assessment and Plan ASSESSMENT and PLAN: Renal insufficiency s/p renal transplant Pt for permcath removal today. Potassium of 5.[address] Roy by phone, recommends proceed with removal, as he has no plans to dialyze the pt unless she is symptomatic. Pt agreeable. (Yaneth Bermudez, PA-C) Patient was seen, examined, and chart reviewed. Agree with exam and treatment plan of the Vascular PA. Patient for removal of her permcath. I have discussed the risks options and benefits of the procedure with the patient. The patient understands the risks options and benefits and agrees to the procedure. (Rick Cam M.D.)
--- NOTE | 2018-02-13 10:49 | Pre Sedation Assessment ---
Pre Sedation Assessment General Date of Sedation: February 13, 2018. Vital Signs Past 12 Hours Date Time Temp Pulse Resp B/P (MAP) Pulse Ox O2 Delivery O2 Flow Rate FiO2 02/13/18 08:10 36.5 61 18 186/93 (124) 95 Room Air Pre-Sedation Airway Assessment Smoking Status: Former Smoker Hx of Sleep Apnea: No Short Thick Neck: No Thyro-mental Distance: > 3 Finger Breadths Oral Cavity: WNL Mallampati Classification: Class II ASA Classification: Class III NPO Status Date of Last Intake of Fluids: February 12, 2018 Time of Last Intake of Fluids: 2199 Date of Last Intake of Solids: February 12, 2018 Time of Last Intake of Solids: 2199 Procedure Planning Contraindications for Sedation: None Current Medications Reviewed: Yes Notes The planned sedation has been discussed with the patient. Informed Consent was obtained. I have identified the patient, determined the appropriateness of sedation and have assessed the patient immediately prior to the procedure. All medicine(s) and interventions are by my order.
[2018-02-13] MEDS ORDERED: MIDAZOLAM HCL 1 MG/ML 2ML VIAL ONE (10:51)
[2018-02-13] MEDS ORDERED: FENTANYL CITRATE INJ 50 MCG/1 ML 2 ML VIAL ONE (10:51)
[2018-02-13] MEDS ORDERED: MIDAZOLAM HCL 1 MG/ML 2ML VIAL IV ONE (11:05)
[2018-02-13] MEDS ORDERED: FENTANYL CITRATE INJ 50 MCG/1 ML 2 ML VIAL IV ONE (11:05)
[2018-02-13] MEDS ORDERED: LIDOCAINE HCL 1% 20 ML VIAL INJ ONE (11:06)
--- NOTE | 2018-02-13 11:13 | [facility] Operative Report ---
Operative Report Operative Date February 13, 2018. Pre-Operative Diagnosis perm catheter no longer needed Post-Operative Diagnosis perm catheter no longer needed Procedure(s) Performed Removal Of Perm Catheter, Moderate Concious Sedation [address] 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 Specimens A. explanted perm catheter Anesthesia Type IV Sedat Cons RN Only Complication(s) none Disposition no Indications This is a 58-year-old female who has a kidney transplant. She had a PermCath placed in November which is no longer needed. It was recommended to remove the PermCath.I have discussed the risks options and benefits of the procedure with the patient. The patient understands the risks options and benefits and agrees to the procedure. Description of Procedure The patient was taken to the angio suite and placed in the supine position. The right side of the neck, chest wall and catheter were prepped and draped in a sterile manner. Local anesthesia was then accomplished. Using sharp and blunt dissection, the cuff of the permcath was freed up from the surrounding fibrous tissue. The permcath and cuff were completely removed. Pressure was then applied and adequate hemostasis was obtained. A sterile dressing was then applied. The patient left the angio suite in good condition and tolerated the procedure well. I attest to the content of the Intraoperative Record and any orders documented therein. Any exceptions are noted below.
--- NOTE | 2018-02-13 11:15 | Discharge Instructions ---
Discharge Instructions Date of Service February 13, 2018. Visit Reason for Visit: Acute Kidney Injury Discharge Discharge Diagnosis / Problem: Permcath no longer needed Discharge Goals Goal(s): Therapeutic intervention Activity Recommendations Activity Limitations: per Instructions/Follow-up section Call [phone] with any questions or concerns. May shower starting tomorrow. May remove dressing tomorrow. SPECIAL CARE INSTRUCTIONS: Medications: * Continue to take your medications as directed. If you have been given a prescription for Plavix, please fill it immediately and take as directed. Incision Care: * Your puncture site may have some bruising and minor swelling for about one week. * You will have a small dressing covering your puncture site. You may remove the dressing after 24 hours and shower. You may let the warm soapy water run over it, but be sure to dry the puncture site well and keep it dry. * DO NOT IMMERSE THE INCISION IN A TUB/POOL/etc. UNTIL HEALED. * Puncture sites should be kept covered with a band-aid until it begins to heal. Restrictions: * Depending on whether you leg or arm was punctured to access the arteries, you will be required to lay flat, hold your arm still, or both, for about 4 hours after the procedure to prevent bleeding. * Limit your activity for the first 48 hours. You may walk and go up and down steps. Avoid excessive bending or movement at the puncture site. Possible Complications: * Excessive Swelling - after blood flow is improved you may notice increased swelling in the lower legs. This is a normal response. This usually depends on the amount of blockages in the leg, how long they have been there prior to your procedure and how much blood flow was restored. Elevating your legs will help to improve this. Please notify our office ([phone] ) if the swelling does not go away after lying in bed overnight. * Infection/Drainage/Bleeding - Drainage or bleeding from the puncture site should be minimal. If you have excessive bleeding or drainage, call our office ([phone]) right away. * Pain - You may experience some mild pain or soreness at your puncture site. If your pain does not improve, please contact our office ([phone]). Call your doctor and seek emergent treatment if you develop: * Temperature above 101 degrees * Any fever or chills * Any redness or purulent drainage from the puncture site * Any new dusky/blue colored toes or feet with coolness or sharp or aching pain. SKIN IRRITATION: * You may experience some redness and/or swelling in the area where radiation was administered. If any skin irritation occurs, please contact your family physician. FOLLOW UP VISIT: Keep any scheduled doctor appointments. Anesthesia . Post Anesthesia Instructions: If you have had General Anesthesia or IV Sedation: * Do not drive today. * Resume driving when surgeon permits. * Do not make important decisions or sign legal documents today. * Call surgeon for: 1. Temperature elevations greater than 101 degrees F. 2. Uncontrollable pain. 3. Excessive bleeding. 4. Persistent nausea and vomiting. 5. Medication intolerance (nausea, vomiting or rash). * For nausea and vomiting use only clear liquids such as: tea, soda, bouillon until nausea subsides, then gradually increase diet as tolerated. * If you have any concerns or questions, call your surgeon's office. If physician is unavailable and it is an emergency, call 911 or go to the nearest emergency room. . Diet Recommendations Recommended Home Diet: resume previous diet Procedures Procedures Performed: Removal Of Perm Catheter, Moderate Concious Sedation 1105 to 1113 Pending Studies Studies pending at discharge: no Medical Emergencies . Who to Call and When: Medical Emergencies: If at any time you feel your situation is an emergency, please call 911 immediately. . Non-Emergent Contact Non-Emergency issues call your: Surgeon . . "Provider Documentation" section prepared by Rick Cam. .
--- NOTE | 2018-02-13 11:16 | Post Sedation Assessment ---
Post Sedation Assessment General Date of Sedation February 13, 2018. Vital Signs: Vital Signs Past 12 Hours Date Time Temp Pulse Resp B/P (MAP) Pulse Ox O2 Delivery O2 Flow Rate FiO2 02/13/18 11:13 58 16 169/90 100 Oxymask 2 02/13/18 11:10 60 18 203/94 100 Oxymask 2 02/13/18 11:05 64 18 208/109 100 Oxymask 2 02/13/18 11:01 62 15 199/99 100 Oxymask 2 02/13/18 08:10 36.5 61 18 186/93 (124) 95 Room Air Post Procedure Recovery Score Activity: (2) Moves 4 extremities * Respiration: (2) Deep breath/cough Circulation: (2) +/-20% PreAnes Value Consciousness: (1) Arouseable (by name) Oxygen Saturation: (2) > 92% On Room Air Post Anesthesia Score: 9 Discharge Sedation Level of Care: Fast Track Phase II Post Sedation Plan On clinical assessment, the patient appears to have tolerated the sedation without complications. Patient is recovering as anticipated. Patient will continue to be monitored by nursing and may be discharged when sedation discharge criteria are met per below protocol. Upon Completions of procedure and up to an additional 15 minutes continue every 5 minute vital signs and the P.A.R. score; then discharge to a Phase I or Fast Track to Phase II per the following guidelines: * Discharge Patient to appropriate Phase II area if PAR is 8 or greater or return to pre- procedure baseline. The post - procedure orders will be as directed. * If PAR score is less than 8 or not return to pre-procedure baseline then patient will follow Phase I monitoring till PAR is reached for Phase II. The Phase I may be done in procedure room or may call to secure a Phase I area. * If naloxone or flumazenil are used for reversal, hold in Phase I for an additional 60 -120 minutes before discharge to Phase II. Please call the Sedation Physician to re-evaluate and complete post-note for discharge to Phase II area. Do NOT discharge from procedure sedation or Phase 1 until post- sedation evaluation note is complete by procedure /sedation MD Sedation Discharge Instructions to be given to the patient at discharge to home.
[2018-02-13 11:20] VITALS: BP 163/93; PULSE 62; TEMP 36.7; O2SAT 97
[2018-02-13 11:59] VITALS: BP 169/88; PULSE 63; TEMP 36.6; O2SAT 98
== END 2018-02-13 12:08 | disposition home or self-care (01) ==
LOC: C.ACU 07:40
PROVIDERS: ATTEND Surgery Vascular Surgery
DX: Z45.2 Encounter for adjustment and management of vascular access device (principal); I12.9 Hypertensive chronic kidney disease with stage 1 through stage 4 chronic kidney disease, or unspecified chronic kidney disease; Z94.0 Kidney transplant status; E78.5 Hyperlipidemia, unspecified; N18.4 Chronic kidney disease, stage 4 (severe); E11.22 Type 2 diabetes mellitus with diabetic chronic kidney disease; J45.909 Unspecified asthma, uncomplicated; Q61.3 Polycystic kidney, unspecified; F32.9 Major depressive disorder, single episode, unspecified; Z79.4 Long term (current) use of insulin; Z87.891 Personal history of nicotine dependence; Z90.49 Acquired absence of other specified parts of digestive tract; Z79.899 Other long term (current) drug therapy; Z91.041 Radiographic dye allergy status; Z88.2 Allergy status to sulfonamides; Z88.5 Allergy status to narcotic agent; Z88.1 Allergy status to other antibiotic agents; Z88.8 Allergy status to other drugs, medicaments and biological substances; Z91.048 Other nonmedicinal substance allergy status; Z83.3 Family history of diabetes mellitus; Z84.1 Family history of disorders of kidney and ureter; Z82.49 Family history of ischemic heart disease and other diseases of the circulatory system; Z80.3 Family history of malignant neoplasm of breast

== ENCOUNTER → 2018-04-17 | Outpatient (CLI) | payer BC ==
[~2018-04-17] MED LIST changes: -CEFAZOLIN 1000MG IV PUSH 7.5 ML IV SCH; -D5W AND 1/4NSS 1,000 ML IV SCH; +METO2.5T PO; -OXYC1CAP5 PO
--- NOTE | 2018-04-17 13:28 | DIAGNOSTIC IMAGING REPORT ---
FACIAL BONES MIN 3 VIEWS RTN CLINICAL HISTORY: ZYGOMATIC FRACTURE, RIGHT SIDE, SEQUELA COMPARISON STUDY: Sinus radiographs March 14, [address] November 23, 2017. FINDINGS: Note is made of interval plate and screw fixation of fractures of the right zygomatic arch and lateral wall of the right maxillary sinus. Hardware is intact. There are no unexpected radiopaque foreign bodies. A healed fracture of the anterior aspect of the right zygomatic arch is noted. There is incomplete healing of a fracture of the posterior aspect of the right zygomatic arch. There is slight asymmetric opacification of the right maxillary sinus which appears slightly diminutive when compared to the left. IMPRESSION: 1. Status post interval internal fixation of the fractures of the right zygomatic arch and lateral wall of the right maxillary sinus. Hardware intact. No unexpected radiopaque foreign bodies. Interval healing of the anterior right zygomatic arch fracture with apparent probable partial healing of the posterior zygomatic arch fracture. 2. Slight asymmetric decreased size and opacification of the right maxillary sinus. Electronically signed by: Benito Hunt M.D. 04/17/2018 1:27 PM Dictated Date/Time: 04/17/2018 1:21 PM
== END | disposition home or self-care (01) ==
LOC: C.RAD 12:42
PROVIDERS: ATTEND Otolaryngology
DX: S02.40ED Zygomatic fracture, right side, subsequent encounter for fracture with routine healing (principal); X58.XXXD Exposure to other specified factors, subsequent encounter

== ENCOUNTER → 2018-04-26 | Outpatient (CLI) | payer BC | END | disposition home or self-care (01) | LOC: C.RDSM 08:20 | PROVIDERS: ATTEND Orthopaedic Surgery | DX: Z98.890 Other specified postprocedural states (principal) ==

== ENCOUNTER 2019-04-11 00:22 | Inpatient (IN) ==
[2019-04-11] MEDS ORDERED: SODIUM CHLORIDE 0.9% 1000ML 1,000 ML IV ONE (00:37)
[2019-04-11] MEDS ORDERED: ONDANSETRON INJ 2 MG/ML 2 ML VIAL IV STA (00:37)
[2019-04-11] MEDS ORDERED: HYDROmorphone INJ 1 MG/ML SYRINGE IV STA ×3 (00:38→02:30)
[2019-04-11 00:51] LABS: Basophils # (auto) 0.01 K/uL (0-0.2); Basophils % (auto) 0.1 %; Eosinophils # (auto) 0.07 K/uL (0-0.5); Eosinophils % (auto) 0.9 %; Hematocrit (blood only) 39.4 % (37-47); Hemoglobin 12.9 g/dL (12.0-16.0); Immature Granulocytes # (auto) 0.03 K/uL (0.00-0.02); Immature Granulocytes % (auto) 0.4 %; Lymphocytes # (auto) 0.29 K/uL (1.2-3.4); Lymphocytes % (auto) 3.8 %; Mean Corpuscular Hemoglobin 34.3 pg (25-34); Mean Corpuscular Hgb Conc 32.7 g/dL (32-36); Mean Corpuscular Volume 104.8 fL (80-100); Monocytes # (auto) 0.44 K/uL (0.11-0.59); Monocytes % (auto) 5.7 %; Neutrophils # (auto) 6.86 K/uL (1.4-6.5); Neutrophils % (auto) 89.1 %; Platelet Count 226 K/uL (130-400); RDW Coefficient of Variation 14.8 % (11.5-14.5); RDW Standard Deviation 56.8 fL (36.4-46.3); Red Blood Count 3.76 M/uL (4.2-5.4)
[2019-04-11 01:19] LABS: Alanine Aminotransferase 21 U/L (12-78); Albumin Level 3.8 gm/dl (3.4-5.0); Alkaline Phosphatase 73 U/L (45-117); Bilirubin,Total 0.6 mg/dl (0.2-1); Blood Urea Nitrogen 52 mg/dl (7-18); Calcium 9.6 mg/dl (8.5-10.1); Carbon Dioxide 24 mmol/L (21-32); Chloride 104 mmol/L (98-107); Est GFR (African American) 22.2; Est GFR (Non-African American) 19.2; Glucose 98 mg/dl (70-99); Lipase 387 U/L (73-393); Sodium 138 mmol/L (136-145); Total Protein 7.7 gm/dl (6.4-8.2)
[2019-04-11 01:55] LABS: Potassium 3.6 mmol/L (3.5-5.1)
[2019-04-11 02:02] LABS: Bilirubin Direct 0.1 mg/dl (0-0.2); Magnesium 1.7 mg/dl (1.8-2.4)
--- NOTE | 2019-04-11 02:38 | History & Physical Report ---
Date of Service April 11, 2019 History of Present Illness Chief Complaint: 59 y/o F Hx ESRD renal transplant x 2 - last 12/2018, HTN, DM II, chronic anemia, multiple SBOs, gout. Presents for the second time in as many nights with abdominal pain, nausea and vomiting. A CT abdomen demonstrated an SBO with questionable large bowel obstruction as well. Labs are notable for creatinine of 2.6 which is close to her recent baseline. She has not had fevers, rigors or diarrhea. 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 Presents for the second time in as many nights with abdominal pain. A CT abdomen demonstrates an SBO with questionable large bowel obstruction as well. Labs are notable for creatinine of 2.6 which is close to her recent baseline. Recent history includes the following: She received a renal transplant 12/2018. Her creatinine has not been optimal since that time although it has remained within a range of 1.7-2.7. She had a biopsy 1 week prior which did not demonstrate rejection and it is thought that her current renal impairment is a result of cyclosporine use. During the biopsy, it was noted that she had fluid surrounding the transplanted kidney. As this can apparently impair function. She had a drain placed in her RLQ which remains in place and continues to drain fluid. The prior week she suffered a fall and multiple abrasions on her LEs in addition to a fracture of the 5th L finger. PMH: 1) ESRD 2) HTN 3) DM II 4) SBOs - has not required surgery for this 5) Immunocompromised 6) Gout 7) Diverticulitis Surgical: 1) Renal transplant 2000, 2018 2) Partial colectomy with colostomy and reversal Social: Former smoker, does not drink alcohol Social: Smoked from age 15 - 20, does not drink alcohol Family: Breast CA, DM II, CAD Allergies Allergy/AdvReac Type Severity Reaction Status Date / Time Iodinated Contrast- Oral and Allergy Severe Hx Kidney Verified 04/11/19 00:44 IV Dye Transplant Tnzdmzr-Eok-Dqh Reductase Allergy Severe "PANCREATIT Verified 04/11/19 00:44 Inhibitor IS" sumatriptan Allergy Severe seizure Verified 04/11/19 00:44 hydrochlorothiazide Allergy Mild Unknown Verified 04/11/19 00:44 Sulfa (Sulfonamide Allergy Mild . Verified 04/11/19 00:44 Antibiotics) triamterene Allergy Mild Unknown Verified 04/11/19 00:44 atorvastatin Allergy Unknown ? Verified 04/11/19 00:44 doxycycline Allergy Unknown UNKNOWN Verified 04/11/19 00:44 levofloxacin Allergy Unknown joint pain Verified 04/11/19 00:44 adhesive AdvReac Unknown SKIN TEAR Verified 04/11/19 00:44 Cipro AdvReac Unknown FATIGUE Verified 01/20/18 21:00 ciprofloxacin AdvReac Unknown FATIGUE Verified 04/11/19 00:44 morphine AdvReac Unknown INEFFECTIVE Verified 04/11/19 00:44 Home Medications Home Medications Medication Instructions Recorded Confirmed Type Levemir FlexTouch U-100 Insuln 6 units SUBCUT HS 09/01/18 04/11/19 History Premarin 0.625 mcg PO WK 09/01/18 04/11/19 History 1 tab PO QAM 09/01/18 04/11/19 History Procrit 20,000 unit SUBCUT UD PRN 09/01/18 04/11/19 History allopurinol 300 mg PO QAM 09/01/18 04/11/19 History biotin 5,000 mcg PO QAM 09/01/18 04/11/19 History tdsclkuqln-iehrqabartrob-mpyh 1 tab PO DAILY PRN 09/01/18 04/11/19 History magnesium oxide 800 mg PO BID 09/01/18 04/11/19 History pantoprazole 40 mg PO QAM 09/01/18 04/11/19 History polysaccharide iron complex 150 mg PO HS 09/01/18 04/11/19 History [Ferrex 150] pramipexole [Mirapex] 0.125 mg PO HS 09/01/18 04/11/19 History venlafaxine [Effexor XR] 18.75 mg PO HS 09/01/18 04/11/19 History carvedilol 18.75 mg PO BID 03/26/19 04/11/19 History cetirizine [Zyrtec] 10 mg PO QAM 03/26/19 04/11/19 History cyclosporine modified 100 mg PO BID 03/26/19 04/11/19 History montelukast 10 mg PO HS 03/26/19 04/11/19 History mycophenolate sodium [Myfortic] 360 mg PO Q12 03/26/19 04/11/19 History prednisone 5 mg PO QAM 03/26/19 04/11/19 History sod phos di, mono-K phos mono 4 tab PO QAM 03/26/19 04/11/19 History [Z-Mvsk-Zksxcry] sulfamethoxazole-trimethoprim 1 tab PO QAM 03/26/19 04/11/19 History tamsulosin 0.4 mg PO HS 03/26/19 04/11/19 History valganciclovir 450 mg PO QAM 03/26/19 04/11/19 History Past Med/Surg History Social History Preferred Language: [place] Communication Ability: Effective Social Insurance Administrator Required: No Beliefs That Will Affect Care: None Current Living Situation: Spouse Other Information That Helps Us Care for You: No Feels Safe at Home: Yes Safety Concerns: Feels Safe At This Time Smoking Status: Former smoker Hx Alcohol Use: Yes Alcohol type: wine Hx Substance Use: Yes substance use type: prescription drug Last Used Substance: Hours (ago) Last Used Substance Other:: 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 Neuro: Denies acute or unilateral weakness, acute gait impairment, headache or acute visual changes Musculoskeletal: Denies joint pain, inflammation Endocrine: Denies polydipsia, polyuria Skin: Denies acute rashes or ulcers Physical Exam Physical Exam: General: AAO x 3, no distress ENT: No erythema or exudates, no thrush Eyes: KORINA, EOMI Head and neck: Normocephalic, atraumatic, No JVD, neck is supple. Chest/heart: Nontender, S1,2, RRR, no murmurs, no gallops Lungs: CTAB, no wheezing or crackles Abdomen: After an NG was placed, there was no tenderness to palpation Neuro: AAO x 3, speech is clear, no unilateral weakness or loss of sensation, coordination intact Musculoskeletal: No joint inflammation, muscle tenderness, FROM Skin: Abrasion on knee BL, R alcal[place] Extremities: No clubbing, cyanosis, edema Results & Data Vital Signs (Past 12 Hours) Vital Signs Temp Pulse Pulse Resp BP BP Pulse Ox 04/11/19 02:00 67 16 04/11/19 01:51 64 12 170/78 H 04/11/19 01:31 65 12 100 04/11/19 01:30 70 14 161/76 H 100 04/11/19 01:20 59 L 15 173/77 H 100 04/11/19 01:18 60 61 13 173/77 H 100 04/11/19 01:00 59 L 14 99 04/11/19 00:52 64 11 L 93 04/11/19 00:49 61 15 149/106 H 100 04/11/19 00:24 97.3 F L 66 18 165/84 H 98 Supervising Physician Co-Signing Physician Notes 59 y/o F Hx ESRD renal transplant x 2 - last 12/2018, HTN, DM II, chronic anemia, multiple SBOs, gout. Presents for the second time in as many nights with abdominal pain, nausea and vomiting. A CT abdomen demonstrated an SBO with questionable large bowel obstruction as well. Labs are notable for creatinine of 2.6 which is close to her recent baseline. She has not had fevers, rigors or diarrhea. 1) SBO - NG placed - NPO, IVF, analgesics and antiemetics provided. Surgery consult AM. 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 We will continue her PO immune meds and have provided IV steroids daily due to concern that these will not absorb. Her drain appears functional without evidence of infection. 3) DM II - placed on a SS 4) HTN - cont Carvedilol - if she cannot tolerate meds via her NG, we may need to transfer to tele to provide IV metoprolol. 5) Gout - cont allopurinol Full code - Heparin prophylaxis Total time for this admit including review of labs, meds, imaging, records - discussion with pt and ER attending - 40 min PG Care Time/CCT Total # of Minutes Spent Total Time Spent with Patient: Total time spent is greater than 50% in coordination of care (as documented) at patient's floor/unit and/or counseling patient:
--- NOTE | 2019-04-11 03:33 | Emergency Department Note ---
Entered by Jessie Benavidez acting as a scribe for John Jeffers MD ED Provider Note Name: Tia Bowling Age: 59 F Arrives Via: Private vehicle Informant: Patient CC: Abdominal pain HPI: The patient is a 59 year old female presenting to the Emergency Department complaining of sudden abdominal pain starting 3.5 hours ago. The patient reports that she has abdominal pain. She states that she is nauseous and has been vomiting. She explains that she had no abdominal pain earlier today but ate food that triggered her current abdominal pain and then worsened it. She notes that she came to the ED less than 1 day ago for these same symptoms. 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 ROS: See above HPI for pertinent positives & negatives. A total of 10 systems reviewed and were otherwise negative. Past Medical History: HTN, CKD, DM, SBO, Immunosuppressant status. Past Surgical History: Kidney transplant. Family History: Non-contributory. Social History: Feels safe at home. Lives with spouse. Never smoker. Home Medications: See home medication list. Allergies See allergy list. Physical: Vitals: BP: 170/78, Pulse: 67, Respirations: 16, Temperature: 97.3F, O2 Saturation: 100, Delivery: Nasal Cannula 2L/min. Exam: GENERAL: Patient is uncomfortable appearing and in moderate distress. Patient is dry heaving in room. EYES: No scleral icterus, unremarkable pupils. ENT: Mucous membranes moist, no nasal congestion. NECK: No masses appreciated, no meningismus, trachea is midline. RESPIRATORY: No dyspnea. Clear to auscultation and equal bilaterally. No wheeze, no rhonchi. CARDIOVASCULAR: Regular rate and rhythm. No murmurs, rubs, gallops appreciated. GASTROINTESTINAL: Abdomen soft, no peritonitis. Bowel sounds positive. No masses appreciated. Epigastric tenderness to palpation. BACK: No midline tenderness, no CVA tenderness EXTREMITIES: Normal motion all extremities, no cyanosis, no edema. NEUROLOGIC: Alert and oriented, no acute motor or sensory deficits, no focal weakness, cranial nerves grossly intact. SKIN: No rash, no jaundice, no diaphoresis. ED Course: 0030: Prior Medical Record, Triage/Nursing Notes, Medications, Allergies reviewed by Me. The patient was evaluated in room B2, and a complete history and physical examination were performed. 0102: I reevaluated the patient at this time who reports that her pain has mildly improved. She is requesting further pain medication. Nausea has resolved. 0137: I reevaluated the patient at this time who is agreeable to CT Abdomen and Pelvis without contrast. She notes that her abdominal pain is currently 5/10. She is requiring supplemental oxygen via nasal cannula. I will hold off on further narcotics at this time. 0225: I discussed the patients case with Dr. Herrera [facility] hospitalist. He will evaluate the patient for further management. 0226: I updated the patient at this time. Vital Signs: reviewed and remarkable for HTN Labs: Reviewed and remarkable for normal lipase Interventions: saline lock, nss bolus, dilaudid 1mg IV x 3, zofran 4mg IV, NG tube Imaging: [facility] Radiologist interpretation reviewed by me: "CT ABDOMEN & PELVIS Without Contrast: Polycystic liver. Cholecystectomy with dilated biliary tree. No pancreatitis. Absent kidneys. Normal appearing transplanted kidneys. Right lower quadrant catheter. Trace free fluid. Small bowel obstruction. Partial colectomy with abrupt caliber change at 2 distinct points in the colon. Cannot exclude partial large bowel obstructions. Radiologist: Jono Peña MD" EKG: none Consults: Dr Herrera will admit pt Reassessments/Times: Vastly improved with NG tube Blood pressure: Elevated - Referred to Hospitalist Disposition: Hospitalization Differentials: Cholecystitis, Gallbladder disfunction, Hepatic Disfunction, Gastritis/PUD, Pancreatitis, ACS, Aortic Pathology, amongst other pathologies entertained. Medical Decision Makin yr old female known to me from last evening who has history of immunosuppression s/p renal transplant and previous episodes of acute on chronic pancreatitis and SBO (~ 9 months ago). She arrives again tonight with return of pain this evening after feeling well throughout the day. Notes pain epigastric and similar to previous pancreatitis, however now she is vomiting. Given IV pain meds and fluids. CT with SBO and possible colon obstruction as well. Pain is controlled with dilaudid and I do not feel at this time she has evidence of ischemic bowel. She had NG tube placed with large outs and feeling improved. She has done this before and I think it reasonable given her many previous surgeries to try conservative management at this time. Labs looking OK at this time. She is breathing comfortably and otherwise without other complaints. Impression: Small bowel obstruction The scribe's documentation has been prepared under my direction and personally reviewed by me in its entirety. I confirm that the note above accurately reflects all work, treatment, procedures, and medical decision making performed by me. John Jeffers MD Impression & Plan SBO (small bowel obstruction) Past Med/Surg History Social History Preferred Language: Russian Communication Ability: Effective Beliefs That Will Affect Care: Worship Worship Beliefs: moravian Current Living Situation: Spouse Feels Safe at Home: Yes Smoking Status: Never smoker Hx Alcohol Use: No Results & Data Vital Signs Vital Signs - 24 hr 04/11/19 00:24 04/11/19 00:49 04/11/19 00:52 Temperature 36.3 C L Temperature Source Oral Sepsis Recent Fever Within 48 Hours No Sepsis Action Taken by Nursing No Action Required Pulse Rate 66 61 64 Pulse Rate [Right Finger] Pulse Rhythm Respiratory Rate 18 15 11 L Respiratory Effort / Characteristics Non-Labored Respiratory Depth Normal Blood Pressure 165/84 H 149/106 H Blood Pressure [Right Arm] Blood Pressure Mean 111 120 Blood Pressure Mean [Right Arm] Pulse Oximetry 98 100 93 Oxygen Delivery Method Room Air Oxygen Flow Rate 04/11/19 01:00 04/11/19 01:18 04/11/19 01:20 Temperature Temperature Source Sepsis Recent Fever Within 48 Hours Sepsis Action Taken by Nursing Pulse Rate 59 L 60 59 L Pulse Rate [Right Finger] 61 Pulse Rhythm Regular Respiratory Rate 14 13 15 Respiratory Effort / Characteristics Respiratory Depth Blood Pressure 173/77 H Blood Pressure [Right Arm] 173/77 H Blood Pressure Mean 109 Blood Pressure Mean [Right Arm] 109 Pulse Oximetry 99 100 100 Oxygen Delivery Method Nasal Cannula Oxygen Flow Rate 2 04/11/19 01:30 04/11/19 01:31 04/11/19 01:51 Temperature Temperature Source Sepsis Recent Fever Within 48 Hours Sepsis Action Taken by Nursing Pulse Rate 70 65 64 Pulse Rate [Right Finger] Pulse Rhythm Respiratory Rate 14 12 12 Respiratory Effort / Characteristics Respiratory Depth Blood Pressure 161/76 H 170/78 H Blood Pressure [Right Arm] Blood Pressure Mean 104 108 Blood Pressure Mean [Right Arm] Pulse Oximetry 100 100 Oxygen Delivery Method Oxygen Flow Rate 04/11/19 02:00 04/11/19 03:18 Temperature Temperature Source Sepsis Recent Fever Within 48 Hours Sepsis Action Taken by Nursing Pulse Rate 67 65 Pulse Rate [Right Finger] Pulse Rhythm Respiratory Rate 16 19 Respiratory Effort / Characteristics Respiratory Depth Blood Pressure 173/76 H Blood Pressure [Right Arm] Blood Pressure Mean Blood Pressure Mean [Right Arm] Pulse Oximetry 98 Oxygen Delivery Method Room Air Oxygen Flow Rate Home Medications Current Medication List: was personally reviewed by me Laboratory Data Attestation: I reviewed the patient's lab results. Result diagrams: 04/11/19 00:34 04/11/19 01:31 Lab Results 04/11/19 04/11/19 04/11/19 Range/Units 00:34 00:34 01:31 WBC 7.70 (4.8-10.8) K/uL RBC 3.76 L (4.2-5.4) M/uL Hgb 12.9 (12.0-16.0) g/dL Hct 39.4 (37-47) % MCV 104.8 H (80-100) fL MCH 34.3 H (25-34) pg MCHC 32.7 (32-36) g/dL RDW Std Deviation 56.8 H (36.4-46.3) fL RDW Coeff of Valentina 14.8 H (11.5-14.5) % Plt Count 226 (130-400) K/uL MPV 10.0 (7.4-10.4) fL Immature Gran % (Auto) 0.4 % Neut % (Auto) 89.1 % Lymph % (Auto) 3.8 % Lyon % (Auto) 5.7 % Eos % (Auto) 0.9 % Baso % (Auto) 0.1 % Immature Gran # (Auto) 0.03 H (0.00-0.02) K/uL Neut # (Auto) 6.86 H (1.4-6.5) K/uL Lymph # (Auto) 0.29 L (1.2-3.4) K/uL Lyon # (Auto) 0.44 (0.11-0.59) K/uL Eos # (Auto) 0.07 (0-0.5) K/uL Baso # (Auto) 0.01 (0-0.2) K/uL Sodium 138 (136-145) mmol/L Potassium 3.6 (3.5-5.1) mmol/L Chloride 104 (98-107) mmol/L Carbon Dioxide 24 (21-32) mmol/L Anion Gap 10.0 (3-11) BUN 52 H (7-18) mg/dl Creatinine 2.61 H (0.6-1.2) mg/dl Est Cr Clr Drug Dosing Not Reportable Est GFR ( Amer) 22.2 Est GFR (Non-Af Amer) 19.2 BUN/Creatinine Ratio 20.0 (10-20) Glucose 98 (70-99) mg/dl Calcium 9.6 (8.5-10.1) mg/dl Magnesium 1.7 L (1.8-2.4) mg/dl Total Bilirubin 0.6 (0.2-1) mg/dl Direct Bilirubin 0.1 (0-0.2) mg/dl AST 17 (15-37) U/L ALT 21 (12-78) U/L Alkaline Phosphatase 73 (45-117) U/L Total Protein 7.7 (6.4-8.2) gm/dl Albumin 3.8 (3.4-5.0) gm/dl Lipase 387 (73-393) U/L Administered Medications Discontinued Medications Hydromorphone HCl (Dilaudid) 1 mg IV NOW STA Stop: 04/11/19 00:39 Last Admin: 04/11/19 00:50 Dose: 1 mg Documented by: [id number] Hydromorphone HCl (Dilaudid) 1 mg IV NOW STA Stop: 04/11/19 01:04 Last Admin: 04/11/19 01:17 Dose: 1 mg Documented by: [id number] Hydromorphone HCl (Dilaudid) 1 mg IV NOW STA Stop: 04/11/19 02:31 Last Admin: 04/11/19 02:38 Dose: 1 mg Documented by: [id number] Sodium Chloride (Nss 1000ml) 1,000 mls @ 999 mls/hr IV .Q1H1M ONE Stop: 04/11/19 01:37 Last Infusion: 04/11/19 01:27 Dose: 0 mls/hr Documented by: [id number] Admin: 04/11/19 00:50 Dose: 999 mls/hr Documented by: [id number] Ondansetron HCl (Zofran) 4 mg IV NOW STA Stop: 04/11/19 00:38 Last Admin: 04/11/19 00:50 Dose: 4 mg Documented by: [id number] Imaging Data Radiologist's Impression: Radiology results as stated below per my review and the radiologist's interpretation: Blood Pressure Blood Pressure Findings: Elevated blood pressure Blood Pressure Disposition: further management by hospitalist Discharge Plan Visit Data Chief Complaint: Abdominal Pain Stated Complaint: abd pain ED Provider: John Jeffers Discharge Problem: SBO (small bowel obstruction) Patient Disposition: Being Evaluated by Hospitalist Discharge Instructions Interventions: ED Discharge Assessment Last Done: 04/11/19 03:18 Forms Stand Alone Forms: Call Back Authorization, [facility] Prescriptions Prescriptions: No Action allopurinol 300 mg Tablet 300 mg PO QAM RF: 0 biotin 5,000 mcg Tablet,Disintegrating 5,000 mcg PO QAM RF: 0 venlafaxine [Effexor XR] 37.5 mg Capsule,Extended Release 24hr 18.75 mg PO HS RF: 0 polysaccharide iron complex [Ferrex 150] 150 mg iron Capsule 150 mg PO HS RF: 0 goyzuefrja-wryrljwxmcmkl-oqhk 50-300-40 mg capsule 1 tab PO DAILY PRN (Reason: Headache) RF: 0 Levemir FlexTouch U-100 Insuln 100 unit/mL (3 mL) Insulin Pen 6 units subcut HS RF: 0 magnesium oxide 400 mg magnesium Tablet 800 mg PO BID RF: 0 pramipexole [Mirapex] 0.125 mg Tablet 0.125 mg PO HS RF: 0 pantoprazole 40 mg Tablet,Delayed Release (Dr/Ec) 40 mg PO QAM RF: 0 Premarin 0.625 mg Tablet 0.625 mcg PO WK RF: 0 28-800 mg-mcg Tablet 1 tab PO QAM RF: 0 Procrit 40,000 unit/mL Solution 20,000 unit subcut UD PRN (Reason: ANEMIA) RF: 0 valganciclovir 450 mg tablet 450 mg PO QAM RF: 0 carvedilol 6.25 mg tablet 18.75 mg PO BID RF: 0 cetirizine [Zyrtec] 10 mg Tablet 10 mg PO QAM RF: 0 sulfamethoxazole-trimethoprim 400-80 mg tablet 1 tab PO QAM RF: 0 prednisone 5 mg tablet 5 mg PO QAM RF: 0 tamsulosin 0.4 mg capsule 0.4 mg PO HS RF: 0 F-Shdx-Fowcita 250 mg tablet 4 tab PO QAM RF: 0 montelukast 10 mg tablet 10 mg PO HS RF: 0 mycophenolate sodium [Myfortic] 180 mg tablet,delayed release (DR/EC) 360 mg PO Q12 RF: 0 cyclosporine modified 50 mg capsule 100 mg PO BID RF: 0 Referrals Referrals: Shruthi Mcbride, [Primary Care Provider] - The scribe's documentation has been prepared under my direction and personally reviewed by me in its entirety. I confirm that the note above accurately reflects all work, treatment, procedures, and medical decision making performed by me.
[2019-04-11] MEDS ORDERED: MAGNESIUM SULFATE / D5W 1 GM/100 ML BAG IV ONE (04:00)
[2019-04-11] MEDS: SODIUM CHLORIDE 0.9% 1000ML 1,000 ML IV SCH ×2 (04:11→16:12)
[2019-04-11] MEDS: HYDROmorphone INJ 1 MG/ML SYRINGE IV PRN ×6 (04:20→21:22)
[2019-04-11] MEDS ORDERED: GLUCOSE 10 TABS/TUBE PO PRN (04:30)
[2019-04-11] MEDS ORDERED: GLUCAGON FOR INJ 1 MG VIAL IM PRN (04:30)
[2019-04-11] MEDS ORDERED: DEXTROSE 50% 50 ML SYRINGE IV PRN (04:30)
[2019-04-11] MEDS ORDERED: GLUCOSE 40% GEL 15 GM TUBE PO PRN (04:30)
[2019-04-11] MEDS ORDERED: CARBOHYDRATES FOR HYPOGLYCEMIA PO PRN (04:30)
[2019-04-11] MEDS: INSULIN ASPART 100 UNITS/ML 3 ML PEN SC SCH ×3 (05:58→18:28)
[2019-04-11] MEDS: ONDANSETRON INJ 2 MG/ML 2 ML VIAL IV PRN (07:18)
--- NOTE | 2019-04-11 08:07 | CT Scan Report ---
CT abd pelvis wo con CLINICAL HISTORY: 59 years-old Female presenting with epigastric pain, history of chronic pancreatiti s. TECHNIQUE: Multidetector CT of the abdomen and pelvis was performed without the use of intravenous co ntrast. IV contrast: None. One or more dose lowering techniques were used consistent with the princip les of ALARA (as low as reasonably achievable), including automatic exposure control, mA or kV adjust ment to individual patient size, and/or use of iterative reconstruction. COMPARISON: 09/01/2018. CT DOSE (mGy.cm): The estimated cumulative dose is 387.84 mGy.cm. FINDINGS: Quarantine Inspector topogram: Cholecystectomy clips. Additional surgical clips scattered throughout the abdomen. Pi gtail drain projects over the right lower quadrant. Lung bases: Mild mitral annular calcification. Mild multichamber enlargement of the heart. Small skip cardial effusion as on prior exam. No pleural effusion. Minimal dependent changes likely atelectasis. Liver: Numerous well-defined hypodense lesions consistent with hepatic cysts and polycystic liver dis ease. Biliary: Massive enlargement of the central intrahepatic and extrahepatic bile ducts. This is unchang ed from prior and may indicate underlying choledochal cyst. Gallbladder surgically absent. Pancreas: Moderate parenchymal atrophy. No peripancreatic fat stranding or fluid. Spleen: Normal noncontrast appearance. Adrenal glands: Normal noncontrast appearance. Kidneys and ureters: Ovoid hyperdensity in Morison's pouch may suggest a dropped gallstone (series 3 image 95), unchanged. [place] kidneys have been resected. Transplant kidneys in the bilateral lower qu adrants. Cortical thinning with expansion of renal sinus fat suggested in the left lower quadrant tra nsplant kidney. No left hydronephrosis or nephrolithiasis. Hydronephrosis of the right lower quadrant transplant kidney with right perinephric fat infiltration and parenchymal edema. The proximal portio n of the transplant ureter is dilated. The entire course of the transplant ureter on the right is not well visualized. A pigtail drain is noted adjacent to the right bladder dome likely within the extra peritoneal space. Bladder: Normal. Pelvic organs: Normal noncontrast appearance. Bowel: Diverticulosis of the mid sigmoid colon without wall thickening or pericolonic inflammatory ch manoj. Moderate stool burden focally at the splenic flexure of the colon. Postsurgical changes of righ t hemicolectomy, although the upper [place] cecum appears to be used as the anastomosis in the mid abdomen. Moderate stool burden immediately proximal to the anastomosis (series 3 image 203). No wall thickenin g of the cecum. [place] ileocecal valve evident. Pathologically distended small bowel containing feces in the left abdomen. Small bowel is distended proximally to the level of the duodenum with gastric d istention also evident. Perienteric fat infiltration and trace fluid is noted. There is a suspected t ransition point in the anterior left lower quadrant of the absence of intravenous and oral contrast m akes exact delineation difficult. Presumably this is due to adhesions. Peritoneal cavity: Small fluid in the pelvis and trace interloop fluid in the left midabdomen. No kaylah e intraperitoneal gas. Lymph nodes: No gross lymphadenopathy allowing for noncontrast technique. Vasculature: Atherosclerosis of the normal caliber abdominal aorta. Abdominal wall: Postsurgical changes of the anterior abdominal wall. No fluid is evident along the co urse of the right lower quadrant pigtail drain. Infiltration in the anterior abdominal wall is new fr om prior. Calcified breast implants noted likely with intracapsular ruptures. Musculoskeletal: Mild focal degenerative change at L5-S1. IMPRESSION: 1. Small bowel obstruction with small bowel feces and a suspected transition point in the anterior l eft lower quadrant. Presumably this is due to adhesions. 2. Postsurgical changes of right hemicolectomy with a patent anastomosis of the cecum to the transve rse colon. Moderate stool burden in the upper [place] cecum immediately upstream to the anastomosis. 3. Bilateral upper [place] kidneys absent with bilateral lower quadrant transplant kidneys. The right lower quadrant transplant kidney is new since August. Adjacent pigtail drain without fluid at the termin us within the perinephric region. 4. Right lower quadrant transplant kidney hydronephrosis and proximal hydroureter. No gross evidence of an obstructing calculus or mass. A stricture of the transplant ureter is not excluded. 5. Mild cardiomegaly with chronic small pericardial effusion. 6. Polycystic liver disease. 7. Postsurgical changes of cholecystectomy. Chronic marked biliary ductal dilatation; underlying cho ledochal cyst not excluded. Electronically signed by: Homar Denis M.D. 04/11/2019 8:06 AM
[2019-04-11 08:17] LABS: Basophils # (auto) 0.01 K/uL (0-0.2); Basophils % (auto) 0.2 %; Eosinophils # (auto) 0.08 K/uL (0-0.5); Eosinophils % (auto) 1.3 %; Hematocrit (blood only) 36.1 % (37-47); Hemoglobin 11.5 g/dL (12.0-16.0); Immature Granulocytes # (auto) 0.01 K/uL (0.00-0.02); Immature Granulocytes % (auto) 0.2 %; Lymphocytes % (auto) 4.9 %; Mean Corpuscular Hemoglobin 33.4 pg (25-34); Mean Corpuscular Hgb Conc 31.9 g/dL (32-36); Mean Corpuscular Volume 104.9 fL (80-100); Mean Platelet Volume 10.3 fL (7.4-10.4); Monocytes # (auto) 0.38 K/uL (0.11-0.59); Monocytes % (auto) 6.2 %; Neutrophils # (auto) 5.32 K/uL (1.4-6.5); Neutrophils % (auto) 87.2 %; Platelet Count 197 K/uL (130-400); RDW Standard Deviation 57.7 fL (36.4-46.3); Red Blood Count 3.44 M/uL (4.2-5.4)
[2019-04-11 08:25] LABS: Prothrombin Time 9.8 Seconds (9.0-12.0)
[2019-04-11 09:03] LABS: BUN Creatinine Ratio 20.4 (10-20); Calcium 8.8 mg/dl (8.5-10.1); Creatinine Clr Calc Pharmacy 26.6 ml/min; Est GFR (African American) 26.3; Est GFR (Non-African American) 22.7; Magnesium 2.3 mg/dl (1.8-2.4); Potassium 3.7 mmol/L (3.5-5.1)
[2019-04-11] MEDS: methylPREDNISolone 10 MG in SYRINGE 0 ML IV SCH (10:02)
[2019-04-11] MEDS: MYCOPHENOLATE SODIUM 180 MG TAB PO SCH ×2 (10:03→20:15)
[2019-04-11] MEDS: cycloSPORINE 100 MG CAP PO SCH ×2 (10:03→20:14)
[2019-04-11] MEDS: predniSONE 5 MG TAB PO SCH (10:04)
[2019-04-11] MEDS: CARVEDILOL 6.25 MG TAB PO SCH ×2 (10:04→20:15)
[2019-04-11] MEDS: PRENATAL VITAMIN 1 TAB PO SCH (10:05)
[2019-04-11] MEDS: POT PHOSPHATE MONOBASIC W/ SOD TAB PO SCH (10:05)
[2019-04-11] MEDS: ALLOPURINOL 300 MG TAB PO SCH (10:05)
[2019-04-11] MEDS: MAGNESIUM OXIDE 400 MG TAB PO SCH ×2 (10:06→20:14)
[2019-04-11] MEDS: HEPARIN SOD 5,000 UNIT/0.5 ML VIAL SQ SCH ×2 (10:10→20:15)
--- NOTE | 2019-04-11 10:52 | Surgery Consultation ---
Date of Consultation April 11, 2019 Assessment & Plan (1) SBO (small bowel obstruction): 59 year-old female who presented to emergency room with abdominal pain, nausea and vomiting originally on 04/10/19 and thought to have pancreatitis (history of chronic pancreatitis) and discharge home. Presented again early this morning with persistent pain, nausea, and vomiting. CT scan showing evidence of small bowel obstruction with small bowel feces sign and transition point in anterior left lower abdomen. NGT with bilious output. No leukocytosis, Vitals stable. Abdomen is mildly distended but soft. Tender in the left upper and lower abdomen. Plan: No acute surgical intervention required at this time. Given extensive surgical history would like to get her through this conservatively. She has had multiple SBOs in the past treated with NGT. Continue NPO, NGT to LIS, may have home meds with sip of water and clamp NGT for 1 hour after, IV Fluids, IV Pain management as needed, IV Zofran as needed for nausea, encouraged ambulation. May clamp NGT to ambulate. continue medical management follow labs given NPO status Heparin SQ BID for DVT prophylaxis will follow along Dr. Umana was present during my examination and agrees with above History of Present Illness Reason for Consultation: SBO Attending Physician: Dakota Coon History of Present Illness Tia is a 59 year-old female with history of bilateral kidney transplant right kidney in 12/2018 and left kidney 18 years ago, perforated colon with colectomy, multiple SBO's, and chronic pancreatitis who presented to emergency department originally on 04/10/19 with abdominal pain, nausea, and vomiting that she thought was pancreatitis. She was discharged and advised to stay on clear liquids. She states pain persisted with nausea and vomiting and presented again. She had a CT scan of abdomen and pelvis which is showing small bowel obstruction with small bowel feces and a suspected transition point in the anterior left lower quadrant. Presumably this is due to adhesions. No leukocytosis. She states she has had multiple SBO in the past and treated conservatively with NGT. States sometimes it resolves quickly other times takes a few days. Last bowel movement was 2 days ago. states she feels bloated and pain mostly in left lower abdomen. No fever or chills. Allergies Allergy/AdvReac Type Severity Reaction Status Date / Time Iodinated Contrast- Oral and Allergy Severe Hx Kidney Verified 04/11/19 00:44 IV Dye Transplant Nczlrld-Pet-Chj Reductase Allergy Severe "PANCREATIT Verified 04/11/19 00:44 Inhibitor IS" sumatriptan Allergy Severe seizure Verified 04/11/19 00:44 hydrochlorothiazide Allergy Mild Unknown Verified 04/11/19 00:44 Sulfa (Sulfonamide Allergy Mild . Verified 04/11/19 00:44 Antibiotics) triamterene Allergy Mild Unknown Verified 04/11/19 00:44 atorvastatin Allergy Unknown ? Verified 04/11/19 00:44 doxycycline Allergy Unknown UNKNOWN Verified 04/11/19 00:44 levofloxacin Allergy Unknown joint pain Verified 04/11/19 00:44 adhesive AdvReac Unknown SKIN TEAR Verified 04/11/19 00:44 Cipro AdvReac Unknown FATIGUE Verified 01/20/18 21:00 ciprofloxacin AdvReac Unknown FATIGUE Verified 04/11/19 00:44 morphine AdvReac Unknown INEFFECTIVE Verified 04/11/19 00:44 Home Medications Home Medications Medication Instructions Recorded Confirmed Type Levemir FlexTouch U-100 Insuln 6 units SUBCUT HS 09/01/18 04/11/19 History Premarin 0.625 mcg PO WK 09/01/18 04/11/19 History 1 tab PO QAM 09/01/18 04/11/19 History Procrit 20,000 unit SUBCUT UD PRN 09/01/18 04/11/19 History allopurinol 300 mg PO QAM 09/01/18 04/11/19 History biotin 5,000 mcg PO QAM 09/01/18 04/11/19 History zplvntytdi-izsmykgtfqbqm-iwvv 1 tab PO DAILY PRN 09/01/18 04/11/19 History magnesium oxide 800 mg PO BID 09/01/18 04/11/19 History pantoprazole 40 mg PO QAM 09/01/18 04/11/19 History polysaccharide iron complex 150 mg PO HS 09/01/18 04/11/19 History [Ferrex 150] pramipexole [Mirapex] 0.125 mg PO HS 09/01/18 04/11/19 History venlafaxine [Effexor XR] 18.75 mg PO HS 09/01/18 04/11/19 History carvedilol 18.75 mg PO BID 03/26/19 04/11/19 History cetirizine [Zyrtec] 10 mg PO QAM 03/26/19 04/11/19 History cyclosporine modified 100 mg PO BID 03/26/19 04/11/19 History montelukast 10 mg PO HS 03/26/19 04/11/19 History mycophenolate sodium [Myfortic] 360 mg PO Q12 03/26/19 04/11/19 History prednisone 5 mg PO QAM 03/26/19 04/11/19 History sod phos di, mono-K phos mono 4 tab PO QAM 03/26/19 04/11/19 History [A-Xwnv-Gdvunis] sulfamethoxazole-trimethoprim 1 tab PO QAM 03/26/19 04/11/19 History tamsulosin 0.4 mg PO HS 03/26/19 04/11/19 History valganciclovir 450 mg PO QAM 03/26/19 04/11/19 History Patient History Social History Preferred Language: Malay Communication Ability: Effective Load Dropper Required: No Beliefs That Will Affect Care: None Current Living Situation: Spouse Other Information That Helps Us Care for You: No Feels Safe at Home: Yes Safety Concerns: Feels Safe At This Time Smoking Status: Former smoker Hx Alcohol Use: Yes Alcohol type: wine Hx Substance Use: Yes substance use type: prescription drug Last Used Substanc e: Hours (ago) Last Used Substance Other:: 1/2 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 Review of Systems Review of Systems: All systems reviewed & are unremarkable except as noted in HPI & below Physical Exam Constitutional: WD/WN, vitals as above no acute distress and not ill appearing Respiratory: normal respiratory effort; no respiratory distress Gastrointestinal (Abdomen): Inspection/Auscultation: + abdomen distended (mildly), + abdominal surgical drain present (RLQ) and + hypoactive bowel sounds; + abnormal bowel sounds Percussion/Palpation: + abdomen tender (LUQ and LLQ) and abdomen soft; no guarding and abdomen not rigid midline laparotomy scar and RLQ scar present Skin: no rashes, warm and dry Psychiatric: A+Ox3, euthymic affect Results & Data Vital Signs (Past 12 Hours) Vital Signs Temp Pulse Pulse Resp BP BP Pulse Ox 04/11/19 10:02 74 158/79 H 04/11/19 07:26 36.5 C 65 16 164/79 H 94 07/18/19 03:31 36.6 C 72 18 190/79 H 94 04/11/19 03:18 65 19 173/76 H 98 04/11/19 02:00 67 16 04/11/19 01:51 64 12 170/78 H 04/11/19 01:31 65 12 100 04/11/19 01:30 70 14 161/76 H 100 04/11/19 01:20 59 L 15 173/77 H 100 04/11/19 01:18 60 61 13 173/77 H 100 04/11/19 01:00 59 L 14 99 04/11/19 00:52 64 11 L 93 04/11/19 00:49 61 15 149/106 H 100 04/11/19 00:24 36.3 C L 66 18 165/84 H 98 Laboratory Results 04/11/19 04/11/19 04/11/19 Range/Units 07:54 07:54 07:54 WBC 6.10 (4.8-10.8) K/uL RBC 3.44 L (4.2-5.4) M/uL Hgb 11.5 L (12.0-16.0) g/dL Hct 36.1 L (37-47) % MCV 104.9 H (80-100) fL MCH 33.4 (25-34) pg MCHC 31.9 L (32-36) g/dL RDW Std Deviation 57.7 H (36.4-46.3) fL RDW Coeff of Valentina 15.0 H (11.5-14.5) % Plt Count 197 (130-400) K/uL MPV 10.3 (7.4-10.4) fL Immature Gran % (Auto) 0.2 % Neut % (Auto) 87.2 % Lymph % (Auto) 4.9 % Dane % (Auto) 6.2 % Eos % (Auto) 1.3 % Baso % (Auto) 0.2 % Immature Gran # (Auto) 0.01 (0.00-0.02) K/uL Neut # (Auto) 5.32 (1.4-6.5) K/uL Lymph # (Auto) 0.30 L (1.2-3.4) K/uL Dane # (Auto) 0.38 (0.11-0.59) K/uL Eos # (Auto) 0.08 (0-0.5) K/uL Baso # (Auto) 0.01 (0-0.2) K/uL PT 9.8 (9.0-12.0) Seconds INR 1.0 (0.9-1.1) Sodium 142 (136-145) mmol/L Potassium 3.7 (3.5-5.1) mmol/L Chloride 108 H (98-107) mmol/L Carbon Dioxide 27 (21-32) mmol/L Anion Gap 7.0 (3-11) BUN 46 H (7-18) mg/dl Creatinine 2.27 H D (0.6-1.2) mg/dl Est Cr Clr Drug Dosing 26.6 Est GFR ( Amer) 26.3 Est GFR (Non-Af Amer) 22.7 BUN/Creatinine Ratio 20.4 H (10-20) Glucose 103 H (70-99) mg/dl POC Glucose (70-99) Calcium 8.8 (8.5-10.1) mg/dl Magnesium 2.3 (1.8-2.4) mg/dl Total Bilirubin (0.2-1) mg/dl Direct Bilirubin (0-0.2) mg/dl AST (15-37) U/L ALT (12-78) U/L Alkaline Phosphatase (45-117) U/L Total Protein (6.4-8.2) gm/dl Albumin (3.4-5.0) gm/dl Lipase (73-393) U/L 04/11/19 04/11/19 04/11/19 Range/Units 05:54 01:31 00:34 WBC (4.8-10.8) K/uL RBC (4.2-5.4) M/uL Hgb (12.0-16.0) g/dL Hct (37-47) % MCV (80-100) fL MCH (25-34) pg MCHC (32-36) g/dL RDW Std Deviation (36.4-46.3) fL RDW Coeff of Valentina (11.5-14.5) % Plt Count (130-400) K/uL MPV (7.4-10.4) fL Immature Gran % (Auto) % Neut % (Auto) % Lymph % (Auto) % Dane % (Auto) % Eos % (Auto) % Baso % (Auto) % Immature Gran # (Auto) (0.00-0.02) K/uL Neut # (Auto) (1.4-6.5) K/uL Lymph # (Auto) (1.2-3.4) K/uL Dane # (Auto) (0.11-0.59) K/uL Eos # (Auto) (0-0.5) K/uL Baso # (Auto) (0-0.2) K/uL PT (9.0-12.0) Seconds INR (0.9-1.1) Sodium 138 (136-145) mmol/L Potassium 3.6 (3.5-5.1) mmol/L Chloride 104 (98-107) mmol/L Carbon Dioxide 24 (21-32) mmol/L Anion Gap 10.0 (3-11) BUN 52 H (7-18) mg/dl Creatinine 2.61 H (0.6-1.2) mg/dl Est Cr Clr Drug Dosing Not Reportable Est GFR ( Amer) 22.2 Est GFR (Non-Af Amer) 19.2 BUN/Creatinine Ratio 20.0 (10-20) Glucose 98 (70-99) mg/dl POC Glucose 104 H (70-99) Calcium 9.6 (8.5-10.1) mg/dl Magnesium 1.7 L (1.8-2.4) mg/dl Total Bilirubin 0.6 (0.2-1) mg/dl Direct Bilirubin 0.1 (0-0.2) mg/dl AST 17 (15-37) U/L ALT 21 (12-78) U/L Alkaline Phosphatase 73 (45-117) U/L Total Protein 7.7 (6.4-8.2) gm/dl Albumin 3.8 (3.4-5.0) gm/dl Lipase 387 (73-393) U/L 19 Range/Units 00:34 WBC 7.70 (4.8-10.8) K/uL RBC 3.76 L (4.2-5.4) M/uL Hgb 12.9 (12.0-16.0) g/dL Hct 39.4 (37-47) % MCV 104.8 H (80-100) fL MCH 34.3 H (25-34) pg MCHC 32.7 (32-36) g/dL RDW Std Deviation 56.8 H (36.4-46.3) fL RDW Coeff of Valentina 14.8 H (11.5-14.5) % Plt Count 226 (130-400) K/uL MPV 10.0 (7.4-10.4) fL Immature Gran % (Auto) 0.4 % Neut % (Auto) 89.1 % Lymph % (Auto) 3.8 % Dane % (Auto) 5.7 % Eos % (Auto) 0.9 % Baso % (Auto) 0.1 % Immature Gran # (Auto) 0.03 H (0.00-0.02) K/uL Neut # (Auto) 6.86 H (1.4-6.5) K/uL Lymph # (Auto) 0.29 L (1.2-3.4) K/uL Dane # (Auto) 0.44 (0.11-0.59) K/uL Eos # (Auto) 0.07 (0-0.5) K/uL Baso # (Auto) 0.01 (0-0.2) K/uL PT (9.0-12.0) Seconds INR (0.9-1.1) Sodium (136-145) mmol/L Potassium (3.5-5.1) mmol/L Chloride (98-107) mmol/L Carbon Dioxide (21-32) mmol/L Anion Gap (3-11) BUN (7-18) mg/dl Creatinine (0.6-1.2) mg/dl Est Cr Clr Drug Dosing Est GFR ( Amer) Est GFR (Non-Af Amer) BUN/Creatinine Ratio (10-20) Glucose (70-99) mg/dl POC Glucose (70-99) Calcium (8.5-10.1) mg/dl Magnesium (1.8-2.4) mg/dl Total Bilirubin (0.2-1) mg/dl Direct Bilirubin (0-0.2) mg/dl AST (15-37) U/L ALT (12-78) U/L Alkaline Phosphatase (45-117) U/L Total Protein (6.4-8.2) gm/dl Albumin (3.4-5.0) gm/dl Lipase (73-393) U/L Diagnostic Findings CT abd pelvis wo con CLINICAL HISTORY: 59 years-old Female presenting with epigastric pain, history of chronic pancreatitis. TECHNIQUE: Multidetector CT of the abdomen and pelvis was performed without the use of intravenous contrast. IV contrast: None. One or more dose lowering te chniques were used consistent with the principles of ALARA (as low as reasonably achievable), including automatic exposure control, mA or kV adjustment to individual patient size, and/or use of iterative reconstruction. COMPARISON: 09/01/2018. CT DOSE (mGy.cm): The estimated cumulative dose is 387.84 mGy.cm. FINDINGS: Heating Equipment Installer topogram: Cholecystectomy clips. Additional surgical clips scattered th roughout the abdomen. Pigtail drain projects over the right lower quadrant. Lung bases: Mild mitral annular calcification. Mild multichamber enlargement of the heart. Small pericardial effusion as on prior exam. No pleural effusion. Minimal dependent changes likely atelectasis. Liver: Numerous well-defined hypodense lesions consistent with hepatic cysts and polycystic liver disease. Biliary: Massive enlargement of the central intrahepatic and extrahepatic bile ducts. This is unchanged from prior and may indicate underlying choledochal cyst. Gallbladder surgically absent. Pancreas: Moderate parenchymal atrophy. No peripancreatic fat stranding or fluid. Spleen: Normal noncontrast appearance. Adrenal glands: Normal noncontrast appearance. Kidneys and ureters: Ovoid hyperdensity in Morison's pouch may suggest a dropped gallstone (series 3 image 95), unchanged. [place] kidneys have been resected. Transplant kidneys in the bilateral lower quadrants. Cortical thinning with expansion of renal sinus fat suggested in the left lower quadrant transplant kidney. No left hydronephrosis or nephrolithiasis. Hydronephrosis of the right lower quadrant transplant kidney with right perinephric fat infiltration and parenchymal edema. The proximal portion of the transplant ureter is dilated. The entire course of the transplant ureter on the right is not well visualized. A pigtail drain is noted adjacent to the right bladder dome likely within the extraperitoneal space. Bladder: Normal. Pelvic organs: Normal noncontrast appearance. Bowel: Diverticulosis of the mid sigmoid colon without wall thickening or pericolonic inflammatory change. Moderate stool burden focally at the splenic flexure of the colon. Postsurgical changes of right hemicolectomy, although the [place] cecum appears to be used as the anastomosis in the mid abdomen. Moderate stool burden immediately proximal to the anastomosis (series 3 image 203). No wall thickening of the cecum. [place] ileocecal valve evident. Pathologically distended small bowel containing feces in the left abdomen. Small bowel is distended proximally to the level of the duodenum with gastric distention also evident. Perienteric fat infiltration and trace fluid is noted. There is a suspected transition point in the anterior left lower quadrant of the absence of intravenous and oral contrast makes exact delineation difficult. Presumably this is due to adhesions. Peritoneal cavity: Small fluid in the pelvis and trace interloop fluid in the left midabdomen. No free intraperitoneal gas. Lymph nodes: No gross lymphadenopathy allowing for noncontrast technique. Vasculature: Atherosclerosis of the normal caliber abdominal aorta. Abdominal wall: Postsurgical changes of the anterior abdominal wall. No fluid is evident along the course of the right lower quadrant pigtail drain. Infiltration in the anterior abdominal wall is new from prior. Calcified breast implants noted likely with intracapsular ruptures. Musculoskeletal: Mild focal degenerative change at L5-S1. IMPRESSION: 1. Small bowel obstruction with small bowel feces and a suspected transition point in the anterior left lower quadrant. Presumably this is due to adhesions. 2. Postsurgical changes of right hemicolectomy with a patent anastomosis of the cecum to the transverse colon. Moderate stool burden in the [place] cecum immediately upstream to the anastomosis. 3. Bilateral [place] kidneys absent with bilateral lower quadrant transplant kidneys. The right lower quadrant transplant kidney is new since August. Adjacent pigtail drain without fluid at the terminus within the perinephric region. 4. Right lower quadrant transplant kidney hydronephrosis and proximal hydroureter. No gross evidence of an obstructing calculus or mass. A stricture of the transplant ureter is not excluded. 5. Mild cardiomegaly with chronic small pericardial effusion. 6. Polycystic liver disease. 7. Postsurgical changes of cholecystectomy. Chronic marked biliary ductal dilatation; underlying choledochal cyst not excluded.
[2019-04-11] MEDS ORDERED: CHLORASEPTIC 1.4% SOLN 180 ML BTL MT PRN (11:10)
[2019-04-11] MEDS: SULFA/TRIMETH 400/80MG TAB PO SCH (16:12)
[2019-04-11] MEDS ORDERED: VENLAFAXINE HCL 37.5 MG TAB PO SCH (21:00)
[2019-04-11] MEDS ORDERED: PRAMIPEXOLE DIHYDROCHLO 0.25 MG TAB PO SCH (21:00)
[2019-04-11] MEDS ORDERED: TAMSULOSIN HCL 0.4 MG CAP PO SCH (21:00)
[2019-04-11] MEDS ORDERED: CARVEDILOL 6.25 MG TAB PO SCH (21:00)
[2019-04-11] MEDS ORDERED: MONTELUKAST SODIUM 10 MG TABLET PO SCH (21:00)
[2019-04-12] MEDS: HYDROmorphone INJ 1 MG/ML SYRINGE IV PRN ×6 (00:02→19:14)
[2019-04-12] MEDS: INSULIN ASPART 100 UNITS/ML 3 ML PEN SC SCH ×4 (00:19→18:17)
[2019-04-12] MEDS: ONDANSETRON INJ 2 MG/ML 2 ML VIAL IV PRN (04:19)
[2019-04-12] MEDS: SODIUM CHLORIDE 0.9% 1000ML 1,000 ML IV SCH ×2 (04:36→16:59)
[2019-04-12] MEDS ORDERED: TRAMADOL HCL 50 MG TABLET PO STA (05:52)
[2019-04-12 06:55] LABS: Basophils # (auto) 0.01 K/uL (0-0.2); Basophils % (auto) 0.2 %; Eosinophils # (auto) 0.11 K/uL (0-0.5); Eosinophils % (auto) 2.2 %; Hematocrit (blood only) 35.5 % (37-47); Immature Granulocytes # (auto) 0.01 K/uL (0.00-0.02); Immature Granulocytes % (auto) 0.2 %; Lymphocytes # (auto) 0.17 K/uL (1.2-3.4); Lymphocytes % (auto) 3.5 %; Mean Corpuscular Hemoglobin 33.2 pg (25-34); Mean Corpuscular Volume 107.3 fL (80-100); Mean Platelet Volume 10.2 fL (7.4-10.4); Monocytes # (auto) 0.59 K/uL (0.11-0.59); Neutrophils # (auto) 4.03 K/uL (1.4-6.5); Neutrophils % (auto) 81.9 %; Platelet Count 176 K/uL (130-400); RDW Coefficient of Variation 14.9 % (11.5-14.5); RDW Standard Deviation 58.1 fL (36.4-46.3); Red Blood Count 3.31 M/uL (4.2-5.4); White Blood Count 4.92 K/uL (4.8-10.8)
--- NOTE | 2019-04-12 07:02 | Communication Note ---
Date of Service: April 11, 2019 Patient seen and examined. Will increase frequency of her pain medicine: dilaudid to q2h prn; CURRENT DOSE IS NOT HELPING. Patient has had this diagnosis multiple times in the past. She will not take it as often and only as needed.
[2019-04-12 07:36] LABS: BUN Creatinine Ratio 17.2 (10-20); Calcium 9.1 mg/dl (8.5-10.1); Creatinine Clr Calc Pharmacy 32.8 ml/min; Est GFR (African American) 33.9; Est GFR (Non-African American) 29.3; Potassium 3.8 mmol/L (3.5-5.1)
[2019-04-12] MEDS: methylPREDNISolone 10 MG in SYRINGE 0 ML IV SCH ×3 (08:56→11:02)
[2019-04-12] MEDS ORDERED: CETIRIZINE HCL 10 MG TABLET PO SCH (09:00)
[2019-04-12] MEDS ORDERED: BUTALBITAL/ACETAMIN/CAFFEINE TAB PO PRN (10:02)
--- NOTE | 2019-04-12 10:10 | Hospitalist Progress Note ---
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 Discussed with , pt regulatory affairs coordinator at [facility]. He strongly recommended to transfer pt to their service since she is kidney transplant pt and immunosuppressed. He recommended to recheck her Lipase since she also has chronic pancreatitis.Lipase is 195 wnl.Arrange transfer via [facility] ambulance to [facility]. Pt is stable.NGT intermittent low suction. Present on Admission?: Yes Subjective Pt seen and examined at the bedside. She continues with nausea. NGT somewhat helps.Pt denies any vomiting since NGT is placed. Pt denies BM. NGT tube output from last night to 11 am is 350 ml. It is green, there is no blood in there. Pt said she is a kidney transplant recipient at [facility] and when she has SBO like this she usually goes there. Discussed with Dr. Carlin who is pt primary and regulatory affairs coordinator and he recommended to transfer pt as soon as bed is available to [facility] for higher level of care. He also recommended to decrease pt cyclosporine to 75 mg BID instead of 100 mg BID. Pt is going to be transported via [facility] ambulance. Last night pt had low grade fever. Pt deneis FERRIS, chest pain, SOB, urinary frequency and urgency. Review of Systems Review of Systems: All systems reviewed & are unremarkable except as noted in HPI & below Physical Exam Constitutional: WD/WN, vitals as above + ill appearing Eyes: PERRL, conjunctivae normal, anicteric sclerae ENMT: external ear and nose normal, oropharynx normal Neck: trachea midline, no thyromegaly Respiratory: normal respiratory effort, lungs clear to auscultation Cardiovascular: RRR, no murmur, no edema Chest (Breasts): normal inspection/palpation of breasts Gastrointestinal (Abdomen): Inspection/Auscultation: + abdomen distended Percussion/Palpation: + guarding and + abdomen rigid Musculoskeletal: no cyanosis or clubbing, extremities motor strength 5/5 Skin: no rashes, warm and dry Neurologic: patellar DTR's 2+ bilat, sensation intact Psychiatric: A+Ox3, euthymic affect Genitourinary: no vaginal lesions, no adnexal mass Lymphatic: no cervical or axillary lymphadenopathy Results & Data Vital Signs (Past 12 Hours) Vital Signs Temp Pulse Pulse Resp BP Pulse Ox 04/12/19 07:25 37.3 C 76 18 134/80 93 04/11/19 23:54 37.0 C 70 15 135/63 95 PG Care Time/CCT Total # of Minutes Spent Total Time Spent with Patient: Total time spent is greater than 50% in coordination of care (as documented) at patient's floor/unit and/or counseling patient:
[2019-04-12] MEDS: ALLOPURINOL 300 MG TAB PO SCH (10:37)
[2019-04-12] MEDS: PRENATAL VITAMIN 1 TAB PO SCH (10:38)
[2019-04-12] MEDS: POT PHOSPHATE MONOBASIC W/ SOD TAB PO SCH (10:38)
[2019-04-12] MEDS: predniSONE 5 MG TAB PO SCH (10:39)
[2019-04-12] MEDS: MYCOPHENOLATE SODIUM 180 MG TAB PO SCH (10:39)
[2019-04-12] MEDS: CARVEDILOL 6.25 MG TAB PO SCH (10:39)
[2019-04-12] MEDS: MAGNESIUM OXIDE 400 MG TAB PO SCH (10:40)
[2019-04-12] MEDS: SULFA/TRIMETH 400/80MG TAB PO SCH (10:41)
[2019-04-12] MEDS: cycloSPORINE 100 MG CAP PO SCH (10:41)
[2019-04-12] MEDS: HEPARIN SOD 5,000 UNIT/0.5 ML VIAL SQ SCH (10:42)
--- NOTE | 2019-04-12 14:22 | Surgery Progress Note ---
Date of Service April 12, 2019 Assessment & Plan (1) SBO (small bowel obstruction): 59 year-old female who presented to emergency room with abdominal pain, nausea and vomiting originally on 04/10/19 and thought to have pancreatitis (history of chronic pancreatitis) and discharged home. Presented again early in the morning on 04/11/19 with persistent pain, nausea, and vomiting. CT scan showing evidence of small bowel obstruction with small bowel feces sign and transition point in anterior left lower abdomen. NGT with bilious output. 1550 cc in last 24 hours. No leukocytosis, Vitals stable. Abdomen is mildly distended but soft. Tender in the left upper and lower abdomen but improved compared to prior examination. No return of bowel function. Plan: No acute surgical intervention required at this time. Given extensive surgical history would like to get her through this SBO conservatively. She has had multiple SBOs in the past treated conservatively. Patient and concerned they have not been evaluated by retail loss prevention specialist since her admission and given her fever this morning would like to be transferred to [place] where she had her kidney transplant. Given her extensive surgical history and recent kidney transplant would recommend transfer to tertiary center for further management especially if SBO were not to resolve with conservative measures and she would require surgical exploration. Will consult Dr. Roy, patients retail loss prevention specialist Continue conservative measures continue medical management Dr. James has seen and examined patient, agrees with above. Subjective PATIENT SEEN AT 8:00 AM THIS MORNING WITH DR. JAMES abdominal pain comes and goes in waves + nausea but no vomiting NGT came out last night per and was placed back in Abdominal pain improved compared to yesterday but having Migraines No flatus or bowel movement feels less distended today present in room and states he is concerned that retail loss prevention specialist has not been consulted since she has been here given her kidney transplant history as well as having fever this morning. There is no documentation of fever and per nurse she was 37.7. Physical Exam Constitutional: WD/WN, vitals as above no acute distress and not ill appearing Respiratory: normal respiratory effort; no respiratory distress Gastrointestinal (Abdomen): Inspection/Auscultation: abdomen normal to inspection, + abdomen distended (mild, improved) and normal bowel sounds Percussion/Palpation: + abdomen tender (LLQ tenderness, improved compared) and abdomen soft; no guarding and abdomen not rigid RLQ drain present, bloody serosanguineous Skin: no rashes, warm and dry Psychiatric: Orientation: alert and oriented x 3 Affect: + flat affect Results & Data Vital Signs (Past 12 Hours) Vital Signs Temp Pulse Resp BP Pulse Ox 04/12/19 07:25 37.3 C 76 18 134/80 93 Laboratory Results 04/12/19 04/12/19 04/12/19 Range/Units 12:56 06:32 06:32 WBC (4.8-10.8) K/uL RBC (4.2-5.4) M/uL Hgb (12.0-16.0) g/dL Hct (37-47) % MCV (80-100) fL MCH (25-34) pg MCHC (32-36) g/dL RDW Std Deviation (36.4-46.3) fL RDW Coeff of Valentina (11.5-14.5) % Plt Count (130-400) K/uL MPV (7.4-10.4) fL Immature Gran % (Auto) % Neut % (Auto) % Lymph % (Auto) % [place] % (Auto) % Eos % (Auto) % Baso % (Auto) % Immature Gran # (Auto) (0.00-0.02) K/uL Neut # (Auto) (1.4-6.5) K/uL Lymph # (Auto) (1.2-3.4) K/uL [place] # (Auto) (0.11-0.59) K/uL Eos # (Auto) (0-0.5) K/uL Baso # (Auto) (0-0.2) K/uL Sodium 143 (136-145) mmol/L Potassium 3.8 (3.5-5.1) mmol/L Chloride 110 H (98-107) mmol/L Carbon Dioxide 29 (21-32) mmol/L Anion Gap 4.0 (3-11) BUN 32 H (7-18) mg/dl Creatinine 1.84 H D (0.6-1.2) mg/dl Est Cr Clr Drug Dosing 32.8 ml/min Est GFR ( Amer) 33.9 Est GFR (Non-Af Amer) 29.3 BUN/Creatinine Ratio 17.2 (10-20) Glucose 85 (70-99) mg/dl POC Glucose 105 H (70-99) Calcium 9.1 (8.5-10.1) mg/dl Lipase 195 (73-393) U/L 04/12/19 04/12/19 04/11/19 Range/Units 06:32 05:49 23:55 WBC 4.92 (4.8-10.8) K/uL RBC 3.31 L (4.2-5.4) M/uL Hgb 11.0 L (12.0-16.0) g/dL Hct 35.5 L (37-47) % MCV 107.3 H (80-100) fL MCH 33.2 (25-34) pg MCHC 31.0 L (32-36) g/dL RDW Std Deviation 58.1 H (36.4-46.3) fL RDW Coeff of Valentina 14.9 H (11.5-14.5) % Plt Count 176 (130-400) K/uL MPV 10.2 (7.4-10.4) fL Immature Gran % (Auto) 0.2 % Neut % (Auto) 81.9 % Lymph % (Auto) 3.5 % [place] % (Auto) 12.0 % Eos % (Auto) 2.2 % Baso % (Auto) 0.2 % Immature Gran # (Auto) 0.01 (0.00-0.02) K/uL Neut # (Auto) 4.03 (1.4-6.5) K/uL Lymph # (Auto) 0.17 L (1.2-3.4) K/uL [place] # (Auto) 0.59 (0.11-0.59) K/uL Eos # (Auto) 0.11 (0-0.5) K/uL Baso # (Auto) 0.01 (0-0.2) K/uL Sodium (136-145) mmol/L Potassium (3.5-5.1) mmol/L Chloride (98-107) mmol/L Carbon Dioxide (21-32) mmol/L Anion Gap (3-11) BUN (7-18) mg/dl Creatinine (0.6-1.2) mg/dl Est Cr Clr Drug Dosing ml/min Est GFR ( Amer) Est GFR (Non-Af Amer) BUN/Creatinine Ratio (10-20) Glucose (70-99) mg/dl POC Glucose 89 89 (70-99) Calcium (8.5-10.1) mg/dl Lipase (73-393) U/L 04/11/19 Range/Units 18:10 WBC (4.8-10.8) K/uL RBC (4.2-5.4) M/uL Hgb (12.0-16.0) g/dL Hct (37-47) % MCV (80-100) fL MCH (25-34) pg MCHC (32-36) g/dL RDW Std Deviation (36.4-46.3) fL RDW Coeff of Valentina (11.5-14.5) % Plt Count (130-400) K/uL MPV (7.4-10.4) fL Immature Gran % (Auto) % Neut % (Auto) % Lymph % (Auto) % [place] % (Auto) % Eos % (Auto) % Baso % (Auto) % Immature Gran # (Auto) (0.00-0.02) K/uL Neut # (Auto) (1.4-6.5) K/uL Lymph # (Auto) (1.2-3.4) K/uL [place] # (Auto) (0.11-0.59) K/uL Eos # (Auto) (0-0.5) K/uL Baso # (Auto) (0-0.2) K/uL Sodium (136-145) mmol/L Potassium (3.5-5.1) mmol/L Chloride (98-107) mmol/L Carbon Dioxide (21-32) mmol/L Anion Gap (3-11) BUN (7-18) mg/dl Creatinine (0.6-1.2) mg/dl Est Cr Clr Drug Dosing ml/min Est GFR ( Amer) Est GFR (Non-Af Amer) BUN/Creatinine Ratio (10-20) Glucose (70-99) mg/dl POC Glucose 105 H (70-99) Calcium (8.5-10.1) mg/dl Lipase (73-393) U/L
--- NOTE | 2019-04-12 16:17 | Consultation Report ---
DATE OF CONSULTATION: 04/12/2019 RENAL CONSULTATION SUBJECTIVE: The patient is a 59-year-old woman well known to me. I have been following her since about 2011. She was admitted to the hospital yesterday with symptoms of abdominal pain, fever and diarrhea. The patient has a significant medical history revolving around her history of autosomal dominant polycystic kidney disease. She developed end-stage renal disease in 1998. At that time, she underwent a bilateral nephrectomy and was begun on maintenance dialysis. The nephrectomy was done in preparation of a probable kidney transplant. She had a history of recurrent urinary tract infections. A complication of her hospitalization for nephrectomy was a cerebrovascular accident from which she is fully recovered with no long-term sequela. When on dialysis, she was treated with peritoneal dialysis at home at least initially. She was on dialysis for 18 months prior to getting a kidney transplant from a living related donor, a cousin. 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 Her serum creatinine marc from a baseline of 1.5 to 2.5 mg/dL. Her immunosuppression was changed at that time and she was switched to a combination of prednisone and sirolimus. She moved to [facility] several years ago because of her 's change in jobs. Since that time, she has been followed at [facility] by their transplant team. In 05/2011, she developed an episode of acute abdominal pain. She had evidence of a bowel obstruction at that time. She was transferred to [facility]. She underwent an apparent bowel resection and colostomy. Subsequently, her colostomy was taken down. Unfortunately, that surgery was complicated by the development of a wound infection as well as a urinary tract infection. Both required antibiotic therapy. As a consequence, she developed C. difficile colitis. That was treated with vancomycin. Nevertheless, her wound infection gradually cleared. She was managed at the [facility] at [facility]. Initially when she moved to [facility], she saw Dr. Painting. However, she requested to see me in 2011 and I have been her local facilities assistant and primary care physician since that time. 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 Her baseline creatinine over the course of the past few years has been in the range of about 3.5. Complications of her renal insufficiency included an anemia of chronic disease which was managed with Procrit. She could not tolerate oral iron and has had intermittent IV iron in the past. Additionally, she had secondary hyperparathyroidism. She was evaluated for another transplant. Additional complications have included diabetes mellitus and hypertension, both of which have been well controlled. She was also having recurring episodes of C. difficile colitis. She had courses of vancomycin and Dificid. In 05/2017, she underwent a fecal transplant. Since that time each time she took antibiotics, she took Dificid as well. In 12/2016, she had a ventral hernia repair. That was a consequence of prior surgeries and wound infections. The surgery was done at the [facility]. She has a history of recurrent small bowel obstructions. The first occurred in 2010 and she has had recurring episodes since that time. Each is generally improved with conservative therapy. In 11/2017, she suffered a fall at home. The fall occurred as a result of a syncopal episode. No etiology for her syncope was uncovered. She was seen in the Emergency Room here. A CT scan of her head showed an acute right zygomaticomaxillary complex fracture. That includes fractures of the right zygomatic arch. A fracture of the lateral wall of the right orbit and a right maxillary sinus fracture. She had a diastasis of the right zygomatic frontal suture. She was transferred to [facility]. She underwent maxillofacial surgery there. For a period of time, her jaw was wired and she relied on full liquids. She also had some recurrent weakness of the left side of her face. While at [facility], she was placed on maintenance dialysis. Her serum creatinine, however, was only in the range of the upper 3s. Her dialysis access was through a [facility]. Upon discharge, she was maintained on dialysis here. However, her urine output was good and her serum creatinine fell and discharged and dialysis could be discontinued. She remained reasonably stable. In December of this year, she did have a donor transplant at [facility]. She has done reasonably well. Her serum creatinine is slowly falling. CURRENT MEDICATIONS: Include 81 mg aspirin a day, allopurinol 300 mg daily, azelastine nasal spray 2 sniffs in each nostril p.r.n. her seasonal allergies, Bactrim 1 daily, biotin, Coreg 6.25 mg 3 pills twice daily, cyclosporine 100 mg twice daily, venlafaxine 37.5 mg each evening, Ferrex 1 daily, Fioricet p.r.n. migraine headaches, Flomax 0.4 mg daily, fluticasone nasal spray 2 sniffs each nostril each morning, hydralazine 25 mg 3 times a day, P-Mjlm-Ekedtsh 4 pills daily, Levemir 6 units each evening, magnesium oxide 1600 mg daily, Mirapex p.r.n. restless legs, Myfortic 720 mg twice daily, prednisone 5 mg daily, Premarin 0.625 mg on Mondays and , vitamin daily, Protonix 40 mg daily, Singulair for her asthma and Zyrtec 10 mg daily. Of note, she continues to have a drain around her transplanted kidney that is in the right lower quadrant of her abdomen. Her current issue now is the fact that she presented to our Emergency Room early on the morning of 04/10/2019. She had 1 hour history of abdominal pain. She was having discomfort in the mid upper abdomen. The pain was nonradiating. She was nauseated, but has not vomited. She does have a chronically elevated lipase level. During her brief stay in the Emergency Room, her symptoms improved and she was felt to be capable of being discharged to home. However, she returned the following day complaining once again of abdominal pain. The pain had lasted for about 3-1/2 hours. She was nauseated as well and had been vomiting. Nonetheless her evaluation was consistent with a small bowel obstruction. She was admitted at that time on 04/11/2019. I was not notified of her admission until this morning. When seen by me, she appeared to be comfortable and nasogastric tube was in place. She had not been receiving her regular immunosuppressive therapy. ALLERGIES AND ADVERSE REACTIONS TO MEDICATION: THIS LIST INCLUDES ADHESIVES, ATORVASTATIN, CIPROFLOXACIN, DOXYCYCLINE, HYDROCHLOROTHIAZIDE, IODINATED DIAGNOSTIC AGENTS, LEVOFLOXACIN, MORPHINE, STATINS, SULFA ANTIBIOTICS, SUMATRIPTAN AND TRIAMTERENE. The remainder of her past medical history, family history, review of systems not alluded to above is inconsequential and has been outlined on her admission notes. OBJECTIVE: GENERAL: When seen by me, she was lying quietly in bed. She had a nasogastric tube in place that was draining a significant amount of greenish material. VITAL SIGNS: Her blood pressure was 134/80, her pulse 76 and regular, respiratory rate 18, her pulse ox is 93% on room air. She had a low grade fever of 37.3. SKIN: Showed normal skin turgor. She had multiple scars from prior surgical procedures including a right lower quadrant scar from her kidney transplant. She had a drain in the right lower quadrant that was draining serosanguineous material. She has multiple abdominal scars from prior surgeries as well. LYMPHATICS: Showed no palpable lymphadenopathy. HEAD: Normal. EYES: Grossly normal. She has no conjunctival icterus. Pupils are round, equal and reactive to light. I did not examine the ocular fundi. EARS, NOSE, MOUTH AND THROAT: Unremarkable other than the fact that she has a nasogastric tube in place. Her oral mucous membranes are moist. NECK: Supple. There is no jugular venous distention or carotid bruit. CHEST: Clear to auscultation. CARDIAC: Showed a regular rhythm. I heard no murmurs or gallops. ABDOMEN: Showed dressing over the right lower quadrant. A drain was in place as noted. She had the scars noted. Her abdomen was not particularly tender. I heard no bowel sounds. Her renal graft is palpable in the right lower quadrant. She had a soft bruit over the graft. She also has fullness in the left lower quadrant from a prior transplant. 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 I did not feel her liver or spleen. EXTREMITIES: Show no cyanosis, clubbing or peripheral edema. She has some chronic skin changes on her distal lower extremities. Peripheral pulses are intact. NEUROLOGIC: Unremarkable with no significant lateralizing findings. PERTINENT LABORATORY WORK: At the current time showed a white count of 4920 with 81.9% neutrophils, 3.5% lymphocytes, 12% monocytes, 2.2% eosinophils and 0.2% basophils. Her hemoglobin is 11.0 with a hematocrit of 35.5. Red cell indices are macrocytic with an MCV of 107.3 and an MCH of 33.2. Platelet count is 176,000. Her prothrombin time is 9.8 with an INR of 1.0. Her clinical chemistries from today show sodium of 143 mmol/L, potassium 3.8 mmol/L, chloride is 110 mmol/L, and CO2 content 29 mmol/L. Her BUN is 32 and her creatinine is 1.84. Blood sugar this morning was 85. Her serum calcium is 9.1. She did have a lipase level done on 04/11/2019 that was 387. ASSESSMENT: The patient is having another issue with her recurrent small-bowel obstruction. I cannot hear any bowel sounds at the current time. She is somewhat decompressed. The symptoms have been going on since 04/10/2019. I am certainly concerned about the lack of her regular immunosuppression. Currently, her renal function appears to be better than it has been at least as far as her BUN and creatinine are concerned. Her initial studies and recent studies were consistent with some degree of a disproportionate increase in her BUN to creatinine, which likely represented some degree of intravascular volume depletion. However, with hydration over the course of the past 24 hours, her numbers certainly have improved. Nonetheless, she remains at risk for an acute rejection episode if in fact her course of small-bowel obstruction persists. RECOMMENDATIONS: Continue with the supportive care that she is getting now. However, I think a transfer to her transplant center at [facility] is appropriate. They have IV preparations. They have some immunosuppressants that would be of benefit. It would probably take us as long to get those here as it would to transfer her there. The surgeons at [facility] are also familiar with her problems of recurrent small-bowel obstruction. I have spoken with Dr. Jani Carlin, who is her transplant facilities assistant at [facility]. I have also talked with Dr. Hoffmann who is the hospitalist here. We all agree on the transplant and Dr. Carlin and Dr. Hoffmann will be in touch to arrange the transfer. No other recommendations at the current time. Hopefully, the transplant can be facilitated today.
[2019-04-12] MEDS ORDERED: cycloSPORINE (SANDIMMUNE) 25 MG CAP PO SCH (21:00)
--- NOTE | 2019-04-29 11:08 | Discharge Summary ---
Date of Service April 29, 2019 Admission HPI Per Admitting Provider 59 y/o F Hx ESRD renal transplant x 2 - last 12/2018, HTN, DM II, chronic anemia, SBO, gout. Presents for the second time in as many nights with abdominal pain. A CT abdomen demonstrates an SBO with questionable large bowel obstruction as well. Labs are notable for creatinine of 2.6 which is close to her recent baseline. Recent history includes the following: She received a renal transplant 12/2018. Her creatinine has not been optimal since that time although it has remained within a range of 1.7-2.7. She had a biopsy 1 week prior which did not demonstrate rejection and it is thought that her current renal impairment is a result of cyclosporine use. During the biopsy, it was noted that she had fluid surrounding the transplanted kidney. As this can apparently impair function. She had a drain placed in her RLQ which remains in place and continues to drain fluid. The prior week she suffered a fall and multiple abrasions on her LEs in addition to a fracture of the 5th L finger. PMH: 1) ESRD 2) HTN 3) DM II 4) SBOs - has not required surgery for this 5) Immunocompromised 6) Gout 7) Diverticulitis Surgical: 1) Renal transplant 2000, 2018 2) Partial colectomy with colostomy and reversal Social: Former smoker, does not drink alcohol Social: Smoked from age 15 - 20, does not drink alcohol Family: Breast CA, DM II, CAD Principal Diagnosis over 30 min Discharge Exam Constitutional WD/WN, vitals as above + ill appearing Eyes PERRL, conjunctivae normal, anicteric sclerae ENMT external ear and nose normal, oropharynx normal Neck trachea midline, no thyromegaly Respiratory normal respiratory effort, lungs clear to auscultation Cardiovascular RRR, no murmur, no edema Chest (Breasts) normal inspection/palpation of breasts Gastrointestinal (Abdomen) Inspection/Auscultation: + abdomen distended Percussion/Palpation: + guarding and + abdomen rigid Musculoskeletal no cyanosis or clubbing, extremities motor strength 5/5 Skin no rashes, warm and dry Neurologic patellar DTR's 2+ bilat, sensation intact Psychiatric A+Ox3, euthymic affect Genitourinary no vaginal lesions, no adnexal mass Lymphatic no cervical or axillary lymphadenopathy Discharge Data Allergies Allergy/AdvReac Type Severity Reaction Status Date / Time Iodinated Contrast- Oral and Allergy Severe Hx Kidney Verified 04/11/19 00:44 IV Dye Transplant Nzhfvlu-Hyt-Jse Reductase Allergy Severe "PANCREATIT Verified 04/11/19 00:44 Inhibitor IS" sumatriptan Allergy Severe seizure Verified 04/11/19 00:44 hydrochlorothiazide Allergy Mild Unknown Verified 04/11/19 00:44 Sulfa (Sulfonamide Allergy Mild . Verified 04/11/19 00:44 Antibiotics) triamterene Allergy Mild Unknown Verified 04/11/19 00:44 atorvastatin Allergy Unknown ? Verified 04/11/19 00:44 doxycycline Allergy Unknown UNKNOWN Verified 04/11/19 00:44 levofloxacin Allergy Unknown joint pain Verified 04/11/19 00:44 adhesive AdvReac Unknown SKIN TEAR Verified 04/11/19 00:44 Cipro AdvReac Unknown FATIGUE Verified 01/20/18 21:00 ciprofloxacin AdvReac Unknown FATIGUE Verified 04/11/19 00:44 morphine AdvReac Unknown INEFFECTIVE Verified 04/11/19 00:44 Consultations 04/11/19 02:33 ED Decision to Admit Stat 04/11/19 03:40 Consult General Surgery Routine 04/12/19 09:43 Consult Nephrology Routine 04/12/19 14:59 Burn CD for patient Routine Ordered Studies 04/11/19 01:30 CT abd pelvis wo con Urgent Hospital Course (1) CKD (chronic kidney disease) stage 4, GFR 15-29 ml/min: Chronic kidney disease, 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 Discussed with , pt clark driver at [facility]. He strongly recommended to transfer pt to their service since she is kidney transplant pt and immunosuppressed. He recommended to recheck her Lipase since she also has chronic pancreatitis.Lipase is 195 wnl.Arrange transfer via ALS ambulance to [facility]. Pt is stable.NGT intermittent low suction. Total Time Total Time Spent Total Time Spent (In Minutes): over 30 min Discharge Plan Discharge Items Patient Disposition: Transfer Acute Care Hospital Reason For Visit: SBO Discharge Diagnosis: small bowel obstruction, kidney transplant recipient Discharge Goals: Decrease discomfort, Improve disease control and Improve function Activity: As commented below Activity Comment: as tolerated Non-emergency contact: Primary Care Provider Call non-emergency contact if: you have any medication questions Follow-up/Referrals: Grine,Shruthi M, DO [Primary Care Provider] - Diet: See below Diet Comment: npo Addtl Provider Instructions: Please call 911 or go to the nearest ER if you have pain, fever >100.3 F and or any other issue Prescriptions: New cyclosporine [Sandimmune] 25 mg Capsule 75 mg PO BID Qty: 60 RF: 0 Continued allopurinol 300 mg Tablet 300 mg PO QAM RF: 0 biotin 5,000 mcg Tablet,Disintegrating 5,000 mcg PO QAM RF: 0 venlafaxine [Effexor XR] 37.5 mg Capsule,Extended Release 24hr 18.75 mg PO HS RF: 0 polysaccharide iron complex [Ferrex 150] 150 mg iron Capsule 150 mg PO HS RF: 0 wexxeuvemq-fajhwgwumjzce-prtq 50-300-40 mg capsule 1 tab PO DAILY PRN (Reason: Headache) RF: 0 Levemir FlexTouch U-100 Insuln 100 unit/mL (3 mL) Insulin Pen 6 units subcut HS RF: 0 magnesium oxide 400 mg magnesium Tablet 800 mg PO BID RF: 0 pramipexole [Mirapex] 0.125 mg Tablet 0.125 mg PO HS RF: 0 pantoprazole 40 mg Tablet,Delayed Release (Dr/Ec) 40 mg PO QAM RF: 0 Premarin 0.625 mg Tablet 0.625 mcg PO WK RF: 0 28-800 mg-mcg Tablet 1 tab PO QAM RF: 0 Procrit 40,000 unit/mL Solution 20,000 unit subcut UD PRN (Reason: ANEMIA) RF: 0 valganciclovir 450 mg tablet 450 mg PO QAM RF: 0 carvedilol 6.25 mg tablet 18.75 mg PO BID RF: 0 cetirizine [Zyrtec] 10 mg Tablet 10 mg PO QAM RF: 0 sulfamethoxazole-trimethoprim 400-80 mg tablet 1 tab PO QAM RF: 0 tamsulosin 0.4 mg capsule 0.4 mg PO HS RF: 0 Y-Qngi-Zrryjyg 250 mg tablet 4 tab PO QAM RF: 0 montelukast 10 mg tablet 10 mg PO HS RF: 0 mycophenolate sodium [Myfortic] 180 mg tablet,delayed release (DR/EC) 360 mg PO Q12 RF: 0 Discontinued cyclosporine modified 50 mg capsule 100 mg PO BID RF: 0 No Action prednisone 5 mg tablet 5 mg PO QAM Qty: 90 RF: 3 Stand-Alone Forms: Call Back Authorization, [facility]/Other Patient Handouts: Obstruction Sm Bowel, Hypertension Control, Kidney Failure HC Team, Disease Kidney Hypertension, Tube NG Care Dc Discharge Orders: Discharge Order (Routine); Ordered 04/12/19 Ordered By: Yvette Murray Admission Data Admit Date/Time: 04/11/19 02:59 Attending Provider: Yvette Murray Admit Provider: Sid Herrera Primary Care Provider: Shruthi Mcbride Other Providers: Osmani Roy Service: Surgical Services Other Interventions: Discharge Summary Assessment (RN) Last Done: 04/12/19 18:01 DC Date/Time DO NOT enter until pt leaves facility: 04/12/19 19:16
== END 2019-04-12 19:16 | disposition short-term general hospital (02) | DRG 388 ==
LOC: ED 00:22 → SUATTDRO 02:59 → 3W 02:59

== ENCOUNTER 2019-07-25 00:21 | Inpatient (IN) ==
[2019-07-25] MEDS ORDERED: SODIUM CHLORIDE 0.9% 1000ML 1,000 ML IV ONE (00:48)
[2019-07-25] MEDS ORDERED: ACETAMINOPHEN 500 MG TAB PO STA (00:59)
[2019-07-25] MEDS ORDERED: ACETAMINOPHEN 1,000 MG/100 ML VIAL IV STA (01:23)
[2019-07-25] MEDS ORDERED: ONDANSETRON INJ 2 MG/ML 2 ML VIAL IV STA (01:23)
[2019-07-25 01:27] LABS: Basophils # (auto) 0.01 K/uL (0-0.2); Basophils % (auto) 0.1 %; Eosinophils # (auto) 0.03 K/uL (0-0.5); Eosinophils % (auto) 0.2 %; Hematocrit (blood only) 34.4 % (37-47); Hemoglobin 11.5 g/dL (12.0-16.0); Immature Granulocytes # (auto) 0.09 K/uL (0.00-0.02); Immature Granulocytes % (auto) 0.6 %; Lymphocytes # (auto) 0.37 K/uL (1.2-3.4); Lymphocytes % (auto) 2.5 %; Mean Corpuscular Hemoglobin 31.5 pg (25-34); Mean Corpuscular Hgb Conc 33.4 g/dL (32-36); Mean Corpuscular Volume 94.2 fL (80-100); Mean Platelet Volume 9.5 fL (7.4-10.4); Monocytes # (auto) 1.03 K/uL (0.11-0.59); Monocytes % (auto) 7.1 %; Neutrophils # (auto) 13.04 K/uL (1.4-6.5); Neutrophils % (auto) 89.5 %; Platelet Count 192 K/uL (130-400); RDW Coefficient of Variation 14.8 % (11.5-14.5); RDW Standard Deviation 51.1 fL (36.4-46.3); Red Blood Count 3.65 M/uL (4.2-5.4); White Blood Count 14.57 K/uL (4.8-10.8)
[2019-07-25 01:41] LABS: Partial Thromboplastin Time 27.9 Seconds (21.0-31.0); Prothrombin Time 10.4 Seconds (9.0-12.0)
[2019-07-25 01:52] LABS: Appearance Urine Cloudy (Clear); Bacteria Urine Automated 4+ (Negative); Bilirubin Urine Negative (Negative); Blood Urine Negative (Negative); Color Urine Yellow; Epithelial Cell Urine Auto >30 /lpf (0-5); Glucose Urine UA Negative (Negative); Ketones Urine Negative (Negative); Leukocyte Esterase Urine 2+ (Negative); Nitrite Urine Negative (Negative); Protein Urine 1+ (Negative); RBC Urine Automated 0-4 /hpf (0-4); Specific Gravity Urine 1.019 (1.000-1.030); Urobilinogen Urine Negative (Negative); WBC Urine Automated >30 /hpf (0-5)
[2019-07-25 01:53] LABS: Albumin Level 3.2 gm/dl (3.4-5.0); BUN Creatinine Ratio 18.6 (10-20); Calcium 10.1 mg/dl (8.5-10.1); Creatinine Clr Calc Pharmacy 38.7 ml/min; Est GFR (African American) 41.4; Est GFR (Non-African American) 35.7; Potassium 3.7 mmol/L (3.5-5.1)
[2019-07-25 01:55] LABS: Albumin Globulin Ratio 0.9 (0.9-2); Bilirubin,Total 0.8 mg/dl (0.2-1); Globulin 3.7 gm/dl (2.5-4.0); Total Protein 6.9 gm/dl (6.4-8.2)
[2019-07-25] MEDS ORDERED: HYDROmorphone INJ 0.5 MG/0.5 ML SYR ONE (02:45)
[2019-07-25] MEDS ORDERED: FIDAXOMICIN 200 MG TAB PO STA (04:30)
[2019-07-25] MEDS ORDERED: DAPTOmycin 500 MG in SYRINGE 0 ML IV STA (04:30)
--- NOTE | 2019-07-25 05:27 | History & Physical Report ---
Date of Service July 25, 2019 Assessment & Plan (1) Sepsis: 59-year-old female with a past medical history of renal transplant x2 (2000, 2018), chronically immunosuppressed, recurrent C. difficile colitis, HTN, DM 2, chronic anemia, restless leg, SBO, gout presents with persistent fever for greater than 24 hours. Other symptoms include nausea, vomiting and myalgias. Patient's temperature was 38.9, she was tachycardic and her white count was 14.57, lactate was 1.7 and urine was positive for infection. She denies any urinary symptoms. Urosepsis, per sirs criteria, immunocompromised patient Received 2.5 L in the ED, lactate was 1.7 Empirically started on daptomycin Past medical history of recurrent C. difficile colitis, concomitant prophylaxis with Dificid initiated Continue maintenance fluids, observe on PCU/telemetry, follow cultures Infectious disease consulted, appreciate recommendations Status post renal transplant, with immunosuppression Case discussed with transplant surgeon, Dr. Umana from [facility] He advised treating for urosepsis and states to contact him if patient's status changes. Would be agreeable to transfer. Continue mycophenolate 360 twice daily, continue prednisone, continue K-Phos. Due for Belatacept infusion next Monday. Hypertension Hold hydralazine, Coreg Type 2 diabetes Continue Levemir Gout Continue allopurinol Seasonal allergies Continue Zyrtec, montelukast GERD Continue pantoprazole DVT prophylaxisheparin subcu CODE STATUSfull Dietcarb consistent, heart healthy (2) UTI (urinary tract infection): (3) CKD (chronic kidney disease) stage 4, GFR 15-29 ml/min: (4) SBO (small bowel obstruction): (5) Partial bowel obstruction: (6) Intractable vomiting: (7) HTN (hypertension): (8) Diabetes: (9) SIRS (systemic inflammatory response syndrome): (10) Immunosuppressed status: (11) History of kidney transplant: (12) UTI (lower urinary tract infection): History of Present Illness Primary Care Provider: Shruthi Mcbride DO 59-year-old female with a past medical history of renal transplant x2 (2000, 2018), chronically immunosuppressed, recurrent C. difficile colitis, HTN, DM 2, chronic anemia, restless leg, SBO, gout presents with persistent fever for greater than 24 hours. States that she is also had nausea, vomiting, sinus pressure and myalgias. She has vomited approximately 5 times over the past 24 hours. She states she is able to keep down fluids. She denies any abdominal pain or diarrhea. She denies any dysuria. She denies any shortness of breath or cough. The patient is on immunosuppressive therapy. Follows up with transplant surgeon Dr. Umana with [facility]. Review of systems Constitutional; reports fevers, chills HEENT; denies sore throat, reports sinus pressure, denies ear pain, denies runny nose Respiratory; denies cough, wheezing, shortness of breath, hemoptysis CV; denies chest pain, palpitations, edema Abdomen; denies abdominal pain, but reports nausea/vomiting. Denies diarrhea Allergies Allergy/AdvReac Type Severity Reaction Status Date / Time Iodinated Contrast Media Allergy Severe Hx Kidney Verified 07/25/19 02:00 Transplant Nzgbsjg-Dfj-Qzs Reductase Allergy Severe "PANCREATIT Verified 07/25/19 02:00 Inhibitor IS" sumatriptan Allergy Severe seizure Verified 07/25/19 02:00 hydrochlorothiazide Allergy Mild Unknown Verified 07/25/19 02:00 Sulfa (Sulfonamide Allergy Mild . Verified 07/25/19 02:00 Antibiotics) triamterene Allergy Mild Unknown Verified 07/25/19 02:00 atorvastatin Allergy Unknown ? Verified 07/25/19 02:00 doxycycline Allergy Unknown UNKNOWN Verified 07/25/19 02:00 levofloxacin Allergy Unknown joint pain Verified 07/25/19 02:00 adhesive AdvReac Unknown SKIN TEAR Verified 07/25/19 02:00 Cipro AdvReac Unknown FATIGUE Verified 01/20/18 21:00 ciprofloxacin AdvReac Unknown FATIGUE Verified 07/25/19 02:00 morphine AdvReac Unknown INEFFECTIVE Verified 07/25/19 02:00 Home Medications Home Medications Medication Instructions Recorded Confirmed Type Levemir FlexTouch U-100 Insuln 6 units SUBCUT HS 09/01/18 07/25/19 History Premarin 0.625 mcg PO WK 09/01/18 07/25/19 History 1 tab PO QAM 09/01/18 07/25/19 History allopurinol 300 mg PO QPM 09/01/18 07/25/19 History biotin 5,000 mcg PO QAM 09/01/18 07/25/19 History aohoaglbyo-lybwslfefjxuy-wcxf 1 tab PO DAILY PRN 09/01/18 07/25/19 History pantoprazole 40 mg PO QAM 09/01/18 07/25/19 History polysaccharide iron complex 150 mg PO HS 09/01/18 07/25/19 History [Ferrex 150] pramipexole [Mirapex] 0.125 mg PO HS 09/01/18 07/25/19 History venlafaxine [Effexor XR] 18.75 mg PO HS 09/01/18 07/25/19 History W-Urzl-Urscaoh 2 tab PO QAM 03/26/19 07/25/19 History cetirizine [Zyrtec] 10 mg PO QAM 03/26/19 07/25/19 History montelukast 10 mg PO HS 03/26/19 07/25/19 History tamsulosin 0.4 mg PO HS 03/26/19 07/25/19 History hydralazine 25 mg tablet 25 mg PO TID #90 tab 04/30/19 07/25/19 Rx prednisone 5 mg tablet 5 mg PO QAM #90 tab 05/02/19 07/25/19 Rx aspirin [Aspir-81] 81 mg PO DAILY 07/10/19 07/25/19 History azelastine 2 spray INTRANASAL Q12H PRN 07/10/19 07/25/19 History belatacept [Nulojix] 0 mg IV .[id number] 07/10/19 07/25/19 History carvedilol [Coreg] 18.75 mg PO BID 07/10/19 07/25/19 History fluticasone propionate [Flonase 2 spray INTRANASAL DAILY PRN 07/10/19 07/25/19 History Allergy Relief] melatonin 0 mg PO HS 07/10/19 07/25/19 History mycophenolate sodium 180 mg 360 mg PO BID #360 tab 07/18/19 07/25/19 Rx tablet,delayed release utzrpabepb-fbijbtteyjpvr-egtd 1 cap PO DAILY PRN 07/25/19 07/25/19 History Past Med/Surg History Medical History CKD (chronic kidney disease) stage 4, GFR 15-29 ml/min SBO (small bowel obstruction) (Acute) Partial bowel obstruction (Acute) Intractable vomiting (Acute) HTN (hypertension) (Chronic) Abdominal pain (Acute) Acute pyelonephritis (Acute) Acute renal failure Chronic kidney disease (Chronic) Clostridium difficile diarrhea Dehydration (Acute) Diabetes (Chronic) History of kidney transplant (Chronic) Immunosuppressed status Pancreatitis SBO (small bowel obstruction) SIRS (systemic inflammatory response syndrome) UTI (lower urinary tract infection) (Acute 10/21/14) Migraine Sepsis Family History Other Family history non-contributory Social History Preferred Language: [place] Communication Ability: Effective Cap Parts Cutter Required: No Beliefs That Will Affect Care: None marital status: Current Living Situation: Spouse Feels Safe at Home: Yes Smoking Status: Never smoker Second Hand Exposure: No ; Hx Alcohol Use: Yes Alcohol type: wine Hx Substance Use: No Review of Systems Review of Systems: All systems reviewed & are unremarkable except as noted in HPI & below Physical Exam Constitutional: WD/WN, vitals as above Eyes: PERRL, conjunctivae normal, anicteric sclerae ENMT: external ear and nose normal, oropharynx normal Neck: trachea midline, no thyromegaly Respiratory: normal respiratory effort, lungs clear to auscultation Cardiovascular: RRR, no murmur, no edema Gastrointestinal (Abdomen): normal bowel sounds, soft, nontender, no hepatosplenomegaly Musculoskeletal: no cyanosis or clubbing, extremities motor strength 5/5 Skin: no rashes, warm and dry Scattered ecchymotic lesions on bilateral lower extremity Neurologic: PERRL, EOMI, accommodation nl, no face palsy, no dysarthria Psychiatric: A+Ox3, euthymic affect Results & Data Vital Signs (Past 12 Hours) Vital Signs Temp Pulse Pulse Resp BP BP Pulse Ox 07/25/19 04:28 61 16 85/48 L 97 07/25/19 01:54 80 16 107/42 L 96 07/25/19 01:43 90 16 125/49 L 96 07/25/19 01:27 94 H 16 117/56 L 96 07/25/19 01:14 98 07/25/19 00:28 38.9 C H 109 H 20 97/56 L 95 Code Status & VTE Plan Code Status Full code VTE Prophylaxis Plan VTE Prophylaxis will be ordered: Yes Supervising Physician Co-Signing Physician Notes Attending addendum: I have physically seen this patient, have supervised the medical residents activities, and agree with the H&P unless as otherwise noted. Assessment and Plan: Sepsis due to complicated UTI/status post renal transplant/immunocompromised due to medications- Continue daptomycin IV begun in ED. Dificid for prophylaxis for C. difficile colitis. Follow urine culture and sensitivity. Consult infectious disease. Renal transplant surgeon Dr. Umana from [facility], and asks that the patient be kept at [facility] and treated. Continue all male transplant associated medications. Continue hydralazine and Coreg. Remainder of orders and notations as noted. PG Care Time/CCT Total # of Minutes Spent Total Time Spent with Patient: Total time spent is greater than 50% in coordination of care (as documented) at patient's floor/unit and/or counseling patient: Resident Activity Tracking Resident Involvement: Resident Care Provided Care Provided: Adult Hospital Medicine (1) UTI (urinary tract infection) Hematuria presence: without hematuria Urinary tract infection type: site unspecified Qualified Code(s): N39.0 - Urinary tract infection, site not specified (2) Partial bowel obstruction Intestinal obstruction type: unspecified Qualified Code(s): K56.600 - Partial intestinal obstruction, unspecified as to cause (3) Sepsis Sepsis acute organ dysfunction status: unspecified Sepsis type: sepsis due to unspecified organism Qualified Code(s): A41.9 - Sepsis, unspecified organism
[2019-07-25] MEDS ORDERED: POLYETHYLENE (MIRALAX) 17 GM PACK PO PRN (05:55)
[2019-07-25] MEDS ORDERED: ONDANSETRON INJ 2 MG/ML 2 ML VIAL IV PRN (05:55)
--- NOTE | 2019-07-25 06:12 | Emergency Department Note ---
Entered by Tereso Solares acting as a scribe for History of Present Illness General Chief complaint: Fever Stated complaint: 103 FEVER - TRANSPLANT PATIENT Time Seen by Provider: 07/25/19 00:45 Source: patient History of Present Illness Onset (ago): hour(s) (24 hours ago) Pain Consistency: + constant Quality: + other (fever) Associated symptoms: + other (Positive for nausea, vomiting, body aches, a migraine, mild SOB, and a mild cough.) Treatments prior to arrival: other (Tylenol) The patient is a 59 year old female who presents to the emergency department with complaints of a constant fever beginning 24 hours ago. The patient states that she had a kidney transplant done six months ago. She notes that she had polycystic kidney disease. She reports that she has had a fever for the last 24 hours, and she also complains of nausea, vomiting, body aches, a migraine, mild SOB, and a mild cough. The patient states that she has a history of sepsis from before the transplant. She notes that she received a flu shot this year. She reports that she does not have any new wounds. The patient states that she has been taking Tylenol with no relief of her symptoms. Home Medications Home Medications Medication Instructions Recorded Confirmed Type Levemir FlexTouch U-100 Insuln 6 units SUBCUT HS 09/01/18 07/25/19 History Premarin 0.625 mcg PO WK 09/01/18 07/25/19 History 1 tab PO QAM 09/01/18 07/25/19 History allopurinol 300 mg PO QPM 09/01/18 07/25/19 History biotin 5,000 mcg PO QAM 09/01/18 07/25/19 History wecngkayax-yteexcwknpfkt-gnng 1 tab PO DAILY PRN 09/01/18 07/25/19 History pantoprazole 40 mg PO QAM 09/01/18 07/25/19 History polysaccharide iron complex 150 mg PO HS 09/01/18 07/25/19 History [Ferrex 150] pramipexole [Mirapex] 0.125 mg PO HS 09/01/18 07/25/19 History venlafaxine [Effexor XR] 18.75 mg PO HS 09/01/18 07/25/19 History F-Vgau-Spzrett 2 tab PO QAM 03/26/19 07/25/19 History cetirizine [Zyrtec] 10 mg PO QAM 03/26/19 07/25/19 History montelukast 10 mg PO HS 03/26/19 07/25/19 History tamsulosin 0.4 mg PO HS 03/26/19 07/25/19 History hydralazine 25 mg tablet 25 mg PO TID #90 tab 04/30/19 07/25/19 Rx prednisone 5 mg tablet 5 mg PO QAM #90 tab 05/02/19 07/25/19 Rx aspirin [Aspir-81] 81 mg PO DAILY 07/10/19 07/25/19 History azelastine 2 spray INTRANASAL Q12H PRN 07/10/19 07/25/19 History belatacept [Nulojix] 0 mg IV .[id number] 07/10/19 07/25/19 History carvedilol [Coreg] 18.75 mg PO BID 07/10/19 07/25/19 History fluticasone propionate [Flonase 2 spray INTRANASAL DAILY PRN 07/10/19 07/25/19 History Allergy Relief] melatonin 0 mg PO HS 07/10/19 07/25/19 History mycophenolate sodium 180 mg 360 mg PO BID #360 tab 07/18/19 07/25/19 Rx tablet,delayed release rucernngyh-lphuiuhvqofuz-wigw 1 cap PO DAILY PRN 07/25/19 07/25/19 History Allergies Allergy/AdvReac Type Severity Reaction Status Date / Time Iodinated Contrast Media Allergy Severe Hx Kidney Verified 07/25/19 02:00 Transplant Ljzmcvj-Qrb-Rcc Reductase Allergy Severe "PANCREATIT Verified 07/25/19 02:00 Inhibitor IS" sumatriptan Allergy Severe seizure Verified 07/25/19 02:00 hydrochlorothiazide Allergy Mild Unknown Verified 07/25/19 02:00 Sulfa (Sulfonamide Allergy Mild . Verified 07/25/19 02:00 Antibiotics) triamterene Allergy Mild Unknown Verified 07/25/19 02:00 atorvastatin Allergy Unknown ? Verified 07/25/19 02:00 doxycycline Allergy Unknown UNKNOWN Verified 07/25/19 02:00 levofloxacin Allergy Unknown joint pain Verified 07/25/19 02:00 adhesive AdvReac Unknown SKIN TEAR Verified 07/25/19 02:00 Cipro AdvReac Unknown FATIGUE Verified 01/20/18 21:00 ciprofloxacin AdvReac Unknown FATIGUE Verified 07/25/19 02:00 morphine AdvReac Unknown INEFFECTIVE Verified 07/25/19 02:00 Past Med/Surg History Medical History CKD (chronic kidney disease) stage 4, GFR 15-29 ml/min SBO (small bowel obstruction) (Acute) Partial bowel obstruction (Acute) Intractable vomiting (Acute) HTN (hypertension) (Chronic) Abdominal pain (Acute) Acute pyelonephritis (Acute) Acute renal failure Chronic kidney disease (Chronic) Clostridium difficile diarrhea Dehydration (Acute) Diabetes (Chronic) History of kidney transplant (Chronic) Immunosuppressed status Pancreatitis SBO (small bowel obstruction) SIRS (systemic inflammatory response syndrome) UTI (lower urinary tract infection) (Acute 10/21/14) Migraine Sepsis Social History Preferred Language: [place] Communication Ability: Effective Type Cutter Required: No Beliefs That Will Affect Care: None Current Living Situation: Spouse Feels Safe at Home: Yes Smoking Status: Never smoker Hx Alcohol Use: Yes Alcohol type: wine Hx Substance Use: Yes substance use type: prescription drug Last Used Substance: Hours (ago) Review of Systems See HPI for pertinent positives & negatives. and A total of 10 systems reviewed and were otherwise negative Physical Exam Vital Signs Vital Signs - 24 hr 07/25/19 00:28 07/25/19 01:14 07/25/19 01:27 Temperature 38.9 C H Temperature Source Oral Sepsis Recent Fever Within 48 Hours Yes Sepsis Action Taken by Nursing No Action Required Pulse Rate 109 H Pulse Rate [Right Finger] 94 H Pulse Rhythm Regular Pulse Rhythm [Right Finger] Regular Pulse Strength Normal Pulse Strength [Right Finger] Normal Respiratory Rate 20 16 Respiratory Effort / Characteristics Non-Labored Spontaneous Respiratory Depth Normal Respiratory Pattern Regular Blood Pressure 97/56 L Blood Pressure [Right Arm] 117/56 L Blood Pressure Mean 69 Blood Pressure Mean [Right Arm] 76 Blood Pressure Position Sitting Blood Pressure Position [Right Arm] Lying Pulse Oximetry 95 98 96 Oxygen Delivery Method Room Air Room Air Room Air Oxygen Flow Rate 07/25/19 01:43 07/25/19 01:54 07/25/19 04:28 Temperature Temperature Source Sepsis Recent Fever Within 48 Hours Sepsis Action Taken by Nursing Pulse Rate Pulse Rate [Right Finger] 90 80 61 Pulse Rhythm Pulse Rhythm [Right Finger] Regular Regular Regular Pulse Strength Pulse Strength [Right Finger] Normal Normal Normal Respiratory Rate 16 16 16 Respiratory Effort / Characteristics Non-Labored Non-Labored Non-Labored Respiratory Depth Normal Normal Normal Respiratory Pattern Regular Regular Regular Blood Pressure Blood Pressure [Right Arm] 125/49 L 107/42 L 85/48 L Blood Pressure Mean Blood Pressure Mean [Right Arm] 74 63 60 Blood Pressure Position Blood Pressure Position [Right Arm] Lying Lying Lying Pulse Oximetry 96 96 97 Oxygen Delivery Method Room Air Nasal Cannula Oxygen Flow Rate 2 07/25/19 05:21 Temperature Temperature Source Sepsis Recent Fever Within 48 Hours Sepsis Action Taken by Nursing Pulse Rate Pulse Rate [Right Finger] 58 L Pulse Rhythm Pulse Rhythm [Right Finger] Regular Pulse Strength Pulse Strength [Right Finger] Normal Respiratory Rate 16 Respiratory Effort / Characteristics Non-Labored Respiratory Depth Normal Respiratory Pattern Regular Blood Pressure Blood Pressure [Right Arm] 102/57 L Blood Pressure Mean Blood Pressure Mean [Right Arm] 72 Blood Pressure Position Blood Pressure Position [Right Arm] Lying Pulse Oximetry 95 Oxygen Delivery Method Room Air Oxygen Flow Rate HEENT: Head - normocephalic and atraumatic Pupils are equal, round, and reactive to light. Extraocular eye muscles are intact, and sclera are anicteric. Nose - moist nasal mucosa without discharge. Mouth - dry buccal mucosa. Oropharynx is nonerythematous and there is no tonsillar exudate or edema noted. Neck: Supple; no JVD, nuchal rigidity, cervical lymphadenopathy, or auscultated bruits. Heart: Regular rhythm and tachycardic. There is a normal S1 and S2 with no murmurs, clicks, or gallops appreciated. Lungs: Clear to auscultation bilaterally with no wheezes, rales, or rhonchi. Abdomen: Soft, completely nontender, nondistended, with good bowel sounds. There are no palpable pulsatile masses or hepatosplenomegaly. There is no guarding, rigidity, or rebound noted. Extremities: No evidence of cyanosis, clubbing, or edema. There are easily palpable peripheral pulses. Skin: hot and dry with good turgor and no rashes. Course 0050: The patient was evaluated in room A12. A complete history and physical examination were performed. Nursing notes and previous electronic medical records were reviewed. IV lock was established and labs were drawn as above. A septic protocol was performed. The patient was bolused with a liter of normal saline solution for hypotension. The patient was able to give a urine specimen. 0127: I reevaluated and updated the patient. She is complaining of a migraine and will get IV Tylenol. Her blood pressure is up. 0137: Ondansetron HCl 4mg IV for nausea 0138: Sodium Chloride 1000 mls @ 999 mls/hr IV, Acetaminophen 1000mg in 100 mls @ 400 mls/hr IV 0218: I rechecked the patient. She is hypotensive again. She is getting additional fluids. We are trying to reach the claims coordinator at [place]. 0239: I reevaluated and updated the patient. She is refusing antibiotics because she has had C. diff in the past. Her lactic acid is 1.7. 0245: Hydromorphone HCl 0.5 IV 0326: I rechecked the patient. We are still attempting to reach the claims coordinator. 0354: The claims coordinator still cannot be reached. 0408: I reevaluate and updated the patient. She states that she was here a few weeks ago for similar symptoms. She notes that she had a virus at that time. 0414: I rechecked the patient. A repeat lactic acid was drawn. The patient has no previous urine cultures in our system. 0418: I spoke to Dr. Umana - Transplant Center, [facility]. He suggests treating the patient with narrow spectrum antibiotics for a UTI. The patient was given a dose of IV daptomycin. 0504: The patient had another episode of hypotension. She was given an additional 500 cc of normal saline solution. This brings her total crystalloid to 2500 cc. Repeat lactic acid was 0.8. Upon reevaluation, the patient is stable. Her blood pressure is up again. I discussed the findings and the treatment plan with the patient. She expresses agreement and understanding. I spoke with Dr. Blanton - diet consultant for [facility]. The patient will be evaluated for further management. Consultations Consultation #1: I spoke to Dr. Umana - Transplant [facility], [facility]. He suggests treating the patient with narrow spectrum antibiotics for a UTI. Time: 04:18 Consultation #2: I reviewed the patient's case with Dr. Blanton - diet consultant for [facility]. He will evaluate the patient for further management. Time: 05:04 Administered Medications Discontinued Medications Acetaminophen (Tylenol) 1,000 mg PO NOW STA Stop: 07/25/19 01:00 Last Admin: 07/25/19 01:45 Dose: Not Given Documented by: [id number] Fidaxomicin (Dificid) 200 mg PO NOW STA Stop: 07/25/19 04:31 Last Admin: 07/25/19 05:10 Dose: 200 mg Documented by: [id number] Hydromorphone HCl (Dilaudid) Confirm Administered Dose 0.5 mg .ROUTE .STK-MED ONE Stop: 07/25/19 02:46 Last Admin: 07/25/19 02:45 Dose: 0.5 mg Documented by: [id number] Sodium Chloride (Nss 1000ml) 1,000 mls @ 999 mls/hr IV .Q1H1M ONE Stop: 07/25/19 01:48 Last Infusion: 07/25/19 04:25 Dose: 0 mls/hr Documented by: [id number] Admin: 07/25/19 01:38 Dose: 999 mls/hr Documented by: [id number] Acetaminophen (Ofirmev) 1,000 mg in 100 mls @ 400 mls/hr IV NOW STA Stop: 07/25/19 01:37 Last Infusion: 07/25/19 04:25 Dose: 0 mls/hr Documented by: [id number] Admin: 07/25/19 01:38 Dose: 400 mls/hr Documented by: [id number] Daptomycin 500 mg/ Syringe 10 mls @ 5 mls/min IV NOW STA; Protocol Stop: 07/25/19 04:31 Last Admin: 07/25/19 05:11 Dose: 5 mls/min Documented by: [id number] Ondansetron HCl (Zofran) 4 mg IV NOW STA Stop: 07/25/19 01:24 Last Admin: 07/25/19 01:37 Dose: 4 mg Documented by: [id number] Medical Decision Making Differential Diagnosis Differential diagnoses include: sepsis, pneumonia, UTI, and influenza. Medical Records Attestation: I reviewed the patient's medical records. Home Medications Current Medication List: was personally reviewed by me Laboratory Data Attestation: I reviewed the patient's lab results. Result diagrams: 07/25/19 01:11 07/25/19 01:11 Lab Results 07/25/19 07/25/19 07/25/19 Range/Units 01:11 01:11 01:11 WBC 14.57 H (4.8-10.8) K/uL RBC 3.65 L (4.2-5.4) M/uL Hgb 11.5 L (12.0-16.0) g/dL Hct 34.4 L (37-47) % MCV 94.2 (80-100) fL MCH 31.5 (25-34) pg MCHC 33.4 (32-36) g/dL RDW Std Deviation 51.1 H (36.4-46.3) fL RDW Coeff of Valentina 14.8 H (11.5-14.5) % Plt Count 192 (130-400) K/uL MPV 9.5 (7.4-10.4) fL Immature Gran % (Auto) 0.6 % Neut % (Auto) 89.5 % Lymph % (Auto) 2.5 % [place] % (Auto) 7.1 % Eos % (Auto) 0.2 % Baso % (Auto) 0.1 % Immature Gran # (Auto) 0.09 H (0.00-0.02) K/uL Neut # (Auto) 13.04 H (1.4-6.5) K/uL Lymph # (Auto) 0.37 L (1.2-3.4) K/uL [place] # (Auto) 1.03 H (0.11-0.59) K/uL Eos # (Auto) 0.03 (0-0.5) K/uL Baso # (Auto) 0.01 (0-0.2) K/uL PT 10.4 (9.0-12.0) Seconds INR 1.0 (0.9-1.1) APTT 27.9 (21.0-31.0) Seconds PTT Ratio 1.0 Sodium 139 (136-145) mmol/L Potassium 3.7 (3.5-5.1) mmol/L Chloride 107 (98-107) mmol/L Carbon Dioxide 23 (21-32) mmol/L Anion Gap 8.0 (3-11) BUN 29 H (7-18) mg/dl Creatinine 1.56 H (0.6-1.2) mg/dl Est Cr Clr Drug Dosing 38.7 ml/min Est GFR ( Amer) 41.4 Est GFR (Non-Af Amer) 35.7 BUN/Creatinine Ratio 18.6 (10-20) Glucose 119 H (70-99) mg/dl Lactate (0.4-2.0) mmol/L Calcium 10.1 (8.5-10.1) mg/dl Total Bilirubin 0.8 (0.2-1) mg/dl AST 17 (15-37) U/L ALT 19 (12-78) U/L Alkaline Phosphatase 99 (45-117) U/L Total Protein 6.9 (6.4-8.2) gm/dl Albumin 3.2 L (3.4-5.0) gm/dl Globulin 3.7 (2.5-4.0) gm/dl Albumin/Globulin Ratio 0.9 (0.9-2) Urine Color Urine Appearance (Clear) Urine pH (4.5-7.5) Ur Specific Casa (1.000-1.030) Urine Protein (Negative) Urine Glucose (UA) (Negative) Urine Ketones (Negative) Urine Blood (Negative) Urine Nitrite (Negative) Urine Bilirubin (Negative) Urine Urobilinogen (Negative) Ur Leukocyte Esterase (Negative) Urine WBC (Auto) (0-5) /hpf Urine RBC (Auto) (0-4) /hpf U Hyaline Cast (Auto) (0-5) /lpf U Epithel Cells (Auto) (0-5) /lpf Urine Bacteria (Auto) (Negative) Influenza Type A Ag (Neg) Influenza Type B Ag (Neg) 07/25/19 07/25/19 07/25/19 Range/Units 01:11 01:40 02:35 WBC (4.8-10.8) K/uL RBC (4.2-5.4) M/uL Hgb (12.0-16.0) g/dL Hct (37-47) % MCV (80-100) fL MCH (25-34) pg MCHC (32-36) g/dL RDW Std Deviation (36.4-46.3) fL RDW Coeff of Valentina (11.5-14.5) % Plt Count (130-400) K/uL MPV (7.4-10.4) fL Immature Gran % (Auto) % Neut % (Auto) % Lymph % (Auto) % [place] % (Auto) % Eos % (Auto) % Baso % (Auto) % Immature Gran # (Auto) (0.00-0.02) K/uL Neut # (Auto) (1.4-6.5) K/uL Lymph # (Auto) (1.2-3.4) K/uL [place] # (Auto) (0.11-0.59) K/uL Eos # (Auto) (0-0.5) K/uL Baso # (Auto) (0-0.2) K/uL PT (9.0-12.0) Seconds INR (0.9-1.1) APTT (21.0-31.0) Seconds PTT Ratio Sodium (136-145) mmol/L Potassium (3.5-5.1) mmol/L Chloride (98-107) mmol/L Carbon Dioxide (21-32) mmol/L Anion Gap (3-11) BUN (7-18) mg/dl Creatinine (0.6-1.2) mg/dl Est Cr Clr Drug Dosing ml/min Est GFR ( Amer) Est GFR (Non-Af Amer) BUN/Creatinine Ratio (10-20) Glucose (70-99) mg/dl Lactate 1.7 (0.4-2.0) mmol/L Calcium (8.5-10.1) mg/dl Total Bilirubin (0.2-1) mg/dl AST (15-37) U/L ALT (12-78) U/L Alkaline Phosphatase (45-117) U/L Total Protein (6.4-8.2) gm/dl Albumin (3.4-5.0) gm/dl Globulin (2.5-4.0) gm/dl Albumin/Globulin Ratio (0.9-2) Urine Color Yellow Urine Appearance Cloudy A (Clear) Urine pH 5.0 (4.5-7.5) Ur Specific Casa 1.019 (1.000-1.030) Urine Protein 1+ H (Negative) Urine Glucose (UA) Negative (Negative) Urine Ketones Negative (Negative) Urine Blood Negative (Negative) Urine Nitrite Negative (Negative) Urine Bilirubin Negative (Negative) Urine Urobilinogen Negative (Negative) Ur Leukocyte Esterase 2+ H (Negative) Urine WBC (Auto) >30 H (0-5) /hpf Urine RBC (Auto) 0-4 (0-4) /hpf U Hyaline Cast (Auto) 1-5 (0-5) /lpf U Epithel Cells (Auto) >30 H (0-5) /lpf Urine Bacteria (Auto) 4+ H (Negative) Influenza Type A Ag Neg for Influ A (Neg) Influenza Type B Ag Neg for Influ B (Neg) 07/25/19 Range/Units 04:30 WBC (4.8-10.8) K/uL RBC (4.2-5.4) M/uL Hgb (12.0-16.0) g/dL Hct (37-47) % MCV (80-100) fL MCH (25-34) pg MCHC (32-36) g/dL RDW Std Deviation (36.4-46.3) fL RDW Coeff of Valentina (11.5-14.5) % Plt Count (130-400) K/uL MPV (7.4-10.4) fL Immature Gran % (Auto) % Neut % (Auto) % Lymph % (Auto) % [place] % (Auto) % Eos % (Auto) % Baso % (Auto) % Immature Gran # (Auto) (0.00-0.02) K/uL Neut # (Auto) (1.4-6.5) K/uL Lymph # (Auto) (1.2-3.4) K/uL [place] # (Auto) (0.11-0.59) K/uL Eos # (Auto) (0-0.5) K/uL Baso # (Auto) (0-0.2) K/uL PT (9.0-12.0) Seconds INR (0.9-1.1) APTT (21.0-31.0) Seconds PTT Ratio Sodium (136-145) mmol/L Potassium (3.5-5.1) mmol/L Chloride (98-107) mmol/L Carbon Dioxide (21-32) mmol/L Anion Gap (3-11) BUN (7-18) mg/dl Creatinine (0.6-1.2) mg/dl Est Cr Clr Drug Dosing ml/min Est GFR ( Amer) Est GFR (Non-Af Amer) BUN/Creatinine Ratio (10-20) Glucose (70-99) mg/dl Lactate 0.8 (0.4-2.0) mmol/L Calcium (8.5-10.1) mg/dl Total Bilirubin (0.2-1) mg/dl AST (15-37) U/L ALT (12-78) U/L Alkaline Phosphatase (45-117) U/L Total Protein (6.4-8.2) gm/dl Albumin (3.4-5.0) gm/dl Globulin (2.5-4.0) gm/dl Albumin/Globulin Ratio (0.9-2) Urine Color Urine Appearance (Clear) Urine pH (4.5-7.5) Ur Specific Casa (1.000-1.030) Urine Protein (Negative) Urine Glucose (UA) (Negative) Urine Ketones (Negative) Urine Blood (Negative) Urine Nitrite (Negative) Urine Bilirubin (Negative) Urine Urobilinogen (Negative) Ur Leukocyte Esterase (Negative) Urine WBC (Auto) (0-5) /hpf Urine RBC (Auto) (0-4) /hpf U Hyaline Cast (Auto) (0-5) /lpf U Epithel Cells (Auto) (0-5) /lpf Urine Bacteria (Auto) (Negative) Influenza Type A Ag (Neg) Influenza Type B Ag (Neg) Imaging Data Attestation: I personally reviewed and interpreted this imaging study as follows: My Impression: CHEST X-RAY: Calcified breast implants. No acute pulmonary findings. ECG Data Attestation: I personally reviewed and interpreted this ECG as follows: Indication: nausea Rate (beats per minute): 92 Rhythm: normal sinus Additional Comments: No ischemia, no ectopy. Blood Pressure Blood Pressure Findings: Low blood pressure Blood Pressure Disposition: further management by hospitalist JOHNIE Farrell The patient is a 59 year old female who presents to the emergency department with complaints of a constant fever beginning 24 hours ago. The patient has a history of renal transplant 6 months ago. She is on immunosuppressant therapy. The patient did have some associated nausea and vomiting. She has no other specific symptoms to suggest a source of fever. Patient explained that she had a very similar episode happen a couple of weeks ago and was diagnosed with a viral URI. The patient became hypotensive here in the emergency department. She was bolused with normal saline solution on 2 different occasions which brought her blood pressure up and her heart rate down. The patient complained of a migraine and was given 0.5 mg of IV Dilaudid which helped with the headache. After her initial evaluation and laboratory results, I suggested the patient be treated with broad-spectrum antibiotics but she refused stating that she has a history of C. difficile. Once we were able to get the results of the urine specimen, it appears that it is infected and we will treat with narrow s pectrum antibiotics to cover the urine. The patient requested to received Dificid with the antibiotic because of her history. I discussed the case with Dr. Umana from transplant surgery at [place] and he agreed that the patient could stay here on IV antibiotics and close monitoring. I discussed the case with the [facility] Hospitalist and they will evaluate for further management. Impression & Plan Sepsis, UTI (urinary tract infection) Critical Care Time Critical Care Time: Yes Total Critical Care Time: 50 I have personally spent 50 minutes of critical care time in the direct management of this patient. This includes bedside care, interpretation of diagnostic studies, and testing, discussion with consultants, patient, and famil y members, and other required patient management activities. This 50 minutes is in excess of all separately billable procedures. : Sepsis Qualifiers: Sepsis type: sepsis due to unspecified organism Sepsis acute organ dysfunction status: unspecified Qualified Code(s): A41.9 - Sepsis, unspecified organism UTI (urinary tract infection) Qualifiers: Urinary tract infection type: site unspecified Hematuria presence: without hematuria Qualified Code(s): N39.0 - Urinary tract infection, site not specified The scribe's documentation has been prepared under my direction and personally reviewed by me in its entirety. I confirm that the note above accurately reflects all work, treatment, procedures, and medical decision making performed by me.
[2019-07-25] MEDS: SODIUM CHLORIDE 0.9% 1000ML 1,000 ML IV SCH ×2 (06:27→13:51)
[2019-07-25] MEDS ORDERED: DAPTOMYCIN CONSULT ACTIVE PRN (07:10)
--- NOTE | 2019-07-25 07:26 | XRay Report ---
XR chest 1V portable HISTORY: Sepsis COMPARISON: Chest 07/10/2019. FINDINGS: The lungs are hyperexpanded with apical predominant emphysematous changes. No pleural effus ions. No pneumothorax. Calcified breast implants are again noted. No new focal lung consolidations to suggest pneumonia. No evidence for pulmonary edema. The heart is normal in size. IMPRESSION: No significant change compared to the prior study. No acute process. Electronically signed by: Caden Garibay M.D. 07/25/2019 7:25 AM
[2019-07-25] MEDS ORDERED: BUTALBITAL/ACETAMIN/CAFFEINE TAB PO STA ×3 (08:20→23:01)
[2019-07-25] MEDS ORDERED: predniSONE 20 MG TAB PO STA (08:25)
[2019-07-25] MEDS: PRENATAL VITAMIN 1 TAB PO SCH (08:29)
[2019-07-25] MEDS: PANTOprazole 40 MG TAB PO SCH (08:30)
[2019-07-25] MEDS: POT PHOSPHATE MONOBASIC W/ SOD TAB PO SCH (08:30)
[2019-07-25] MEDS: ASPIRIN 81 MG ECTAB PO SCH (08:31)
[2019-07-25] MEDS: HEPARIN SOD 5,000 UNIT/0.5 ML VIAL SQ SCH ×2 (08:31→20:15)
[2019-07-25] MEDS: CETIRIZINE HCL 10 MG TABLET PO SCH (08:31)
[2019-07-25] MEDS: ACETAMINOPHEN 325 MG TAB PO PRN ×2 (08:53→20:29)
[2019-07-25] MEDS: predniSONE 5 MG TAB PO SCH (08:55)
[2019-07-25] MEDS ORDERED: MYCOPHENOLATE SUSP 200 MG/1 ML PO SCH (09:00)
[2019-07-25] MEDS: CEFEPIME 1,000 MG in SYRINGE 0 ML IV SCH ×2 (09:54→20:15)
--- NOTE | 2019-07-25 10:07 | Infectious Disease Consult ---
Date of Consultation July 25, 2019 Assessment & Plan (1) Sepsis: 59-year-old female status post renal transplant on chronic immunosuppressive therapy now admitted with clinical picture of sepsis, with urinary tract anthony likely source. Pending further culture results, would continue patient on daptomycin and cefepime. Will adjust once final culture results are available. Will follow. (2) UTI (urinary tract infection): History of Present Illness Reason for Consultation: Urosepsis, immunocompromised Attending Physician: Eugene Rose History of Present Illness 59-year-old female known to me from previous infectious disease consultations, with end-stage renal disease from polycystic kidneys, status post renal transplant first in 2000, more recently 6 months ago, on chronic immunosuppressive therapy, as well as history of recurrent C. difficile colitis, diabetes mellitus, hypertension who was in usual state of health until 1 day prior to admission when she had the abrupt onset of fever, chills, nausea and vomiting, along with myalgias and dry cough and worsening migraine headaches. Denies dysuria, flank pain, sputum production, or rash. Has been started empirically on daptomycin and cefepime. Urinalysis abnormal and worrisome for infection. Blood cultures are pending. No evidence of pneumonia. Allergies Allergy/AdvReac Type Severity Reaction Status Date / Time Iodinated Contrast Media Allergy Severe Hx Kidney Verified 07/25/19 02:00 Transplant Knagwph-Vam-Oky Reductase Allergy Severe "PANCREATIT Verified 07/25/19 02:00 Inhibitor IS" sumatriptan Allergy Severe seizure Verified 07/25/19 02:00 hydrochlorothiazide Allergy Mild Unknown Verified 07/25/19 02:00 Sulfa (Sulfonamide Allergy Mild . Verified 07/25/19 02:00 Antibiotics) triamterene Allergy Mild Unknown Verified 07/25/19 02:00 atorvastatin Allergy Unknown ? Verified 07/25/19 02:00 doxycycline Allergy Unknown UNKNOWN Verified 07/25/19 02:00 levofloxacin Allergy Unknown joint pain Verified 07/25/19 02:00 adhesive AdvReac Unknown SKIN TEAR Verified 07/25/19 02:00 Cipro AdvReac Unknown FATIGUE Verified 01/20/18 21:00 ciprofloxacin AdvReac Unknown FATIGUE Verified 07/25/19 02:00 morphine AdvReac Unknown INEFFECTIVE Verified 07/25/19 02:00 Home Medications Home Medications Medication Instructions Recorded Confirmed Type Levemir FlexTouch U-100 Insuln 6 units SUBCUT HS 09/01/18 07/25/19 History Premarin 0.625 mcg PO WK 09/01/18 07/25/19 History 1 tab PO QAM 09/01/18 07/25/19 History allopurinol 300 mg PO QPM 09/01/18 07/25/19 History biotin 5,000 mcg PO QAM 09/01/18 07/25/19 History pplqzhyngx-wxxqawpxuvijd-wjjr 1 tab PO DAILY PRN 09/01/18 07/25/19 History pantoprazole 40 mg PO QAM 09/01/18 07/25/19 History polysaccharide iron complex 150 mg PO HS 09/01/18 07/25/19 History [Ferrex 150] pramipexole [Mirapex] 0.125 mg PO HS 09/01/18 07/25/19 History venlafaxine [Effexor XR] 18.75 mg PO HS 09/01/18 07/25/19 History U-Vfun-Zbidexo 2 tab PO QAM 03/26/19 07/25/19 History cetirizine [Zyrtec] 10 mg PO QAM 03/26/19 07/25/19 History montelukast 10 mg PO HS 03/26/19 07/25/19 History tamsulosin 0.4 mg PO HS 03/26/19 07/25/19 History hydralazine 25 mg tablet 25 mg PO TID #90 tab 04/30/19 07/25/19 Rx prednisone 5 mg tablet 5 mg PO QAM #90 tab 05/02/19 07/25/19 Rx aspirin [Aspir-81] 81 mg PO DAILY 07/10/19 07/25/19 History azelastine 2 spray INTRANASAL Q12H PRN 07/10/19 07/25/19 History belatacept [Nulojix] 0 mg IV .[id number] 07/10/19 07/25/19 History carvedilol [Coreg] 18.75 mg PO BID 07/10/19 07/25/19 History fluticasone propionate [Flonase 2 spray INTRANASAL DAILY PRN 07/10/19 07/25/19 History Allergy Relief] melatonin 0 mg PO HS 07/10/19 07/25/19 History mycophenolate sodium 180 mg 360 mg PO BID #360 tab 07/18/19 07/25/19 Rx tablet,delayed release puuesetnuz-jzzstztbjrfyh-lhcu 1 cap PO DAILY PRN 07/25/19 07/25/19 History Patient History Medical History CKD (chronic kidney disease) stage 4, GFR 15-29 ml/min SBO (small bowel obstruction) (Acute) Partial bowel obstruction (Acute) Intractable vomiting (Acute) HTN (hypertension) (Chronic) Abdominal pain (Acute) Acute pyelonephritis (Acute) Acute renal failure Chronic kidney disease (Chronic) Clostridium difficile diarrhea Dehydration (Acute) Diabetes (Chronic) History of kidney transplant (Chronic) Immunosuppressed status Pancreatitis SBO (small bowel obstruction) SIRS (systemic inflammatory response syndrome) UTI (lower urinary tract infection) (Acute 10/21/14) Migraine Sepsis Family History Other Family history non-contributory Social History Preferred Language: Ecuadorean Communication Ability: Effective 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: No Beliefs That Will Affect Care: None Current Living Situation: Spouse Feels Safe at Home: Yes Smoking Status: Never smoker Second Hand Exposure: No ; Hx Alcohol Use: Yes Alcohol type: wine Hx Substance Use: No Review of Systems Review of Systems: All systems reviewed & are unremarkable except as noted in HPI & below Physical Exam Constitutional: + acute distress, + ill appearing and + thin Eyes: PERRL, conjunctivae normal, anicteric sclerae ENMT: external ear and nose normal, oropharynx normal Neck: trachea midline, no thyromegaly neck nontender Respiratory: normal respiratory effort, lungs clear to auscultation normal percussion; does not use accessory muscles Cardiovascular: Rate/Rhythm: regular rate and regular rhythm Heart Sounds: normal S1 and normal S2; no gallop, no murmur and no cardiac rub Vessels: normal peripheral pulses; no JVD Gastrointestinal (Abdomen): normal bowel sounds, soft, nontender, no hepatosplenomegaly Musculoskeletal: no cyanosis or clubbing, extremities motor strength 5/5 Spine: thoracic spine normal to inspection and lumbar spine normal to inspection; no cervical spinal tenderness Skin: no rashes, warm and dry normal turgor; no lesions Neurologic: patellar DTR's 2+ bilat, sensation intact no focal motor deficits Psychiatric: A+Ox3, euthymic affect Orientation: cooperative Lymphatic: no cervical or axillary lymphadenopathy no inguinal lymphadenopathy Results & Data Vital Signs (Past 12 Hours) Vital Signs Temp Pulse Pulse Resp BP BP BP 07/25/19 08:44 39.2 C H 07/25/19 07:27 61 07/25/19 06:30 36.8 C 57 L 18 107/63 07/25/19 06:00 57 L 07/25/19 05:45 63 16 102/63 07/25/19 05:21 58 L 16 102/57 L 07/25/19 04:28 61 16 85/48 L 07/25/19 01:54 80 16 107/42 L 07/25/19 01:43 90 16 125/49 L 07/25/19 01:27 94 H 16 117/56 L 07/25/19 01:14 07/25/19 00:28 38.9 C H 109 H 20 97/56 L Pulse Ox 07/25/19 08:44 07/25/19 07:27 07/25/19 06:30 99 07/25/19 06:00 07/25/19 05:45 96 07/25/19 05:21 95 07/25/19 04:28 97 07/25/19 01:54 96 07/25/19 01:43 96 07/25/19 01:27 96 07/25/19 01:14 98 07/25/19 00:28 95 Laboratory Results Short CBC 07/25/19 Range/Units 01:11 WBC 14.57 H (4.8-10.8) K/uL Hgb 11.5 L (12.0-16.0) g/dL Hct 34.4 L (37-47) % Plt Count 192 (130-400) K/uL BMP 07/25/19 01:11 Sodium 139 Potassium 3.7 Chloride 107 Carbon Dioxide 23 BUN 29 H Creatinine 1.56 H Glucose 119 H Calcium 10.1 Liver Function 07/25/19 Range/Units 01:11 Total Bilirubin 0.8 (0.2-1) mg/dl AST 17 (15-37) U/L ALT 19 (12-78) U/L Alkaline Phosphatase 99 (45-117) U/L Albumin 3.2 L (3.4-5.0) gm/dl Urine 07/25/19 Range/Units 01:40 Urine Color Yellow Urine Appearance Cloudy A (Clear) Urine pH 5.0 (4.5-7.5) Ur Specific [place] 1.019 (1.000-1.030) Urine Protein 1+ H (Negative) Urine Glucose (UA) Negative (Negative) Diagnostic Findings XR chest 1V portable HISTORY: Sepsis COMPARISON: Chest 07/10/2019. FINDINGS: The lungs are hyperexpanded with apical predominant emphysematous changes. No pleural effusions. No pneumothorax. Calcified breast implants are again noted. No new focal lung consolidations to suggest pneumonia. No evidence for pulmonary edema. The heart is normal in size. IMPRESSION: No significant change compared to the prior study. No acute process. Electronically signed by: Caden Garibay M.D. 07/25/2019 7:25 AM PG Care Time/CCT Total # of Minutes Spent Total Time Spent with Patient: Total time spent is greater than 50% in coordination of care (as documented) at patient's floor/unit and/or counseling patient: (1) Sepsis Sepsis acute organ dysfunction status: unspecified Sepsis type: sepsis due to unspecified organism Qualified Code(s): A41.9 - Sepsis, unspecified organism (2) UTI (urinary tract infection) Hematuria presence: without hematuria Urinary tract infection type: site unspecified Qualified Code(s): N39.0 - Urinary tract infection, site not specified
[2019-07-25] MEDS: MYCOPHENOLATE SODIUM 180 MG TAB PO SCH ×2 (11:23→20:15)
[2019-07-25 14:38] LABS: Influenza A virus by PCR Neg for Influ A (Neg); Influenza B virus by PCR Neg for Influ B (Neg)
[2019-07-25] MEDS: FIDAXOMICIN 200 MG TAB PO SCH (17:07)
--- NOTE | 2019-07-25 17:49 | Hospitalist Progress Note ---
Date of Service July 25, 2019 Assessment & Plan (1) Sepsis: 2nd to UTI (suspected). add cefepime to IV daptomycin. continue IVF. stress dose steroids (40mg prednisone today, 30mg prednisone tomorrow, and so forth). appreciate ID consultation. flu PCR negative. supportive care. (2) UTI (urinary tract infection): suspected. follow culture. cefepime + daptomycin. ID consult appreciated. IVF, supportive care, stress dose steroids, etc. (3) History of kidney transplant: noted. follows with Dr Roy locally. on mycophenalate and prednisone chronically along with belatacept. Cr at baseline 1.5. (4) Migraine: fioricet prn. if refractory then consider maxalt prn, IV steroids, etc. (5) Chronic kidney disease, stage 3a: baseline Cr 1.5 daily BMP (6) Diabetes: cont levemir add novolog ac prn as well (7) DVT prophylaxis: heparin q12h cont dificid for c. diff prophy Subjective pt c/o migraine headache. has needed 2 doses thus far of fiorcet to treat such. history of migraines for use. had seizure with sumatriptan but HAS used maxalt w/o difficulty. denies meningismus/neck pain. denies sore throat, ear pain, mouth sores, cough, dyspnea, cp, abd pain, pain over transplant site (right lower quadrant of abdomen), dysuria, foul-smelling urine. continues with fevers, chills, and myalgias. no sick contacts or recent travel. tele stable since admission. Physical Exam Constitutional: + ill appearing (but nontoxic) and average body habitus; no acute distress and no altered mental status ENMT: external ear and nose normal, oropharynx normal Neck: neck nontender and no nuchal rigidity Respiratory: normal respiratory effort, lungs clear to auscultation Cardiovascular: Rate/Rhythm: regular rate and regular rhythm Heart Sounds: normal S1 and normal S2; no murmur Vessels: posterior tibial pulses present and dorsalis pedis pulses present; no JVD Extremities: no edema Gastrointestinal (Abdomen): normal bowel sounds, soft, nontender, no hepatosplenomegaly kidney transplant RLQ palpable without tenderness Skin: no rashes, warm and dry Psychiatric: A+Ox3, euthymic affect Results & Data Vital Signs (Past 12 Hours) Vital Signs Temp Pulse Pulse Resp BP BP Pulse Ox 07/25/19 15:21 37.0 C 72 20 104/62 94 07/25/19 15:01 75 07/25/19 13:58 37.3 C 07/25/19 12:51 39.1 C H 102 H 20 101/59 L 96 07/25/19 09:30 38.1 C H 07/25/19 08:44 39.2 C H 07/25/19 07:27 61 07/25/19 06:30 36.8 C 57 L 18 107/63 99 07/25/19 06:00 57 L Laboratory Results Laboratory Results - last 24 hr 07/25/19 07/25/19 07/25/19 01:11 01:11 01:11 WBC 14.57 H RBC 3.65 L Hgb 11.5 L Hct 34.4 L MCV 94.2 MCH 31.5 MCHC 33.4 RDW Std Deviation 51.1 H RDW Coeff of Valentina 14.8 H Plt Count 192 MPV 9.5 Immature Gran % (Auto) 0.6 Neut % (Auto) 89.5 Lymph % (Auto) 2.5 Jenkins % (Auto) 7.1 Eos % (Auto) 0.2 Baso % (Auto) 0.1 Immature Gran # (Auto) 0.09 H Neut # (Auto) 13.04 H Lymph # (Auto) 0.37 L Jenkins # (Auto) 1.03 H Eos # (Auto) 0.03 Baso # (Auto) 0.01 PT 10.4 INR 1.0 APTT 27.9 PTT Ratio 1.0 Sodium 139 Potassium 3.7 Chloride 107 Carbon Dioxide 23 Anion Gap 8.0 BUN 29 H Creatinine 1.56 H Est Cr Clr Drug Dosing 38.7 Est GFR ( Amer) 41.4 Est GFR (Non-Af Amer) 35.7 BUN/Creatinine Ratio 18.6 Glucose 119 H POC Glucose Lactate Calcium 10.1 Total Bilirubin 0.8 AST 17 ALT 19 Alkaline Phosphatase 99 Total Protein 6.9 Albumin 3.2 L Globulin 3.7 Albumin/Globulin Ratio 0.9 Urine Color Urine Appearance Urine pH Ur Specific [place] Urine Protein Urine Glucose (UA) Urine Ketones Urine Blood Urine Nitrite Urine Bilirubin Urine Urobilinogen Ur Leukocyte Esterase Urine WBC (Auto) Urine RBC (Auto) U Hyaline Cast (Auto) U Epithel Cells (Auto) Urine Bacteria (Auto) Influenza Type A Ag Influenza Type A (PCR) Influenza Type B Ag Influenza Type B (PCR) 07/25/19 07/25/19 07/25/19 01:11 01:40 02:35 WBC RBC Hgb Hct MCV MCH MCHC RDW Std Deviation RDW Coeff of Valentina Plt Count MPV Immature Gran % (Auto) Neut % (Auto) Lymph % (Auto) Jenkins % (Auto) Eos % (Auto) Baso % (Auto) Immature Gran # (Auto) Neut # (Auto) Lymph # (Auto) Jenkins # (Auto) Eos # (Auto) Baso # (Auto) PT INR APTT PTT Ratio Sodium Potassium Chloride Carbon Dioxide Anion Gap BUN Creatinine Est Cr Clr Drug Dosing Est GFR ( Amer) Est GFR (Non-Af Amer) BUN/Creatinine Ratio Glucose POC Glucose Lactate 1.7 Calcium Total Bilirubin AST ALT Alkaline Phosphatase Total Protein Albumin Globulin Albumin/Globulin Ratio Urine Color Yellow Urine Appearance Cloudy A Urine pH 5.0 Ur Specific [place] 1.019 Urine Protein 1+ H Urine Glucose (UA) Negative Urine Ketones Negative Urine Blood Negative Urine Nitrite Negative Urine Bilirubin Negative Urine Urobilinogen Negative Ur Leukocyte Esterase 2+ H Urine WBC (Auto) >30 H Urine RBC (Auto) 0-4 U Hyaline Cast (Auto) 1-5 U Epithel Cells (Auto) >30 H Urine Bacteria (Auto) 4+ H Influenza Type A Ag Neg for Influ A Influenza Type A (PCR) Influenza Type B Ag Neg for Influ B Influenza Type B (PCR) 07/25/19 07/25/19 07/25/19 04:30 06:44 11:37 WBC RBC Hgb Hct MCV MCH MCHC RDW Std Deviation RDW Coeff of Valentina Plt Count MPV Immature Gran % (Auto) Neut % (Auto) Lymph % (Auto) Jenkins % (Auto) Eos % (Auto) Baso % (Auto) Immature Gran # (Auto) Neut # (Auto) Lymph # (Auto) Jenkins # (Auto) Eos # (Auto) Baso # (Auto) PT INR APTT PTT Ratio Sodium Potassium Chloride Carbon Dioxide Anion Gap BUN Creatinine Est Cr Clr Drug Dosing Est GFR ( Amer) Est GFR (Non-Af Amer) BUN/Creatinine Ratio Glucose POC Glucose 145 H 146 H Lactate 0.8 Calcium Total Bilirubin AST ALT Alkaline Phosphatase Total Protein Albumin Globulin Albumin/Globulin Ratio Urine Color Urine Appearance Urine pH Ur Specific [place] Urine Protein Urine Glucose (UA) Urine Ketones Urine Blood Urine Nitrite Urine Bilirubin Urine Urobilinogen Ur Leukocyte Esterase Urine WBC (Auto) Urine RBC (Auto) U Hyaline Cast (Auto) U Epithel Cells (Auto) Urine Bacteria (Auto) Influenza Type A Ag Influenza Type A (PCR) Influenza Type B Ag Influenza Type B (PCR) 07/25/19 07/25/19 07/25/19 13:50 16:24 20:10 WBC RBC Hgb Hct MCV MCH MCHC RDW Std Deviation RDW Coeff of Valentina Plt Count MPV Immature Gran % (Auto) Neut % (Auto) Lymph % (Auto) Jenkins % (Auto) Eos % (Auto) Baso % (Auto) Immature Gran # (Auto) Neut # (Auto) Lymph # (Auto) Jenkins # (Auto) Eos # (Auto) Baso # (Auto) PT INR APTT PTT Ratio Sodium Potassium Chloride Carbon Dioxide Anion Gap BUN Creatinine Est Cr Clr Drug Dosing Est GFR ( Amer) Est GFR (Non-Af Amer) BUN/Creatinine Ratio Glucose POC Glucose 186 H 180 H Lactate Calcium Total Bilirubin AST ALT Alkaline Phosphatase Total Protein Albumin Globulin Albumin/Globulin Ratio Urine Color Urine Appearance Urine pH Ur Specific [place] Urine Protein Urine Glucose (UA) Urine Ketones Urine Blood Urine Nitrite Urine Bilirubin Urine Urobilinogen Ur Leukocyte Esterase Urine WBC (Auto) Urine RBC (Auto) U Hyaline Cast (Auto) U Epithel Cells (Auto) Urine Bacteria (Auto) Influenza Type A Ag Influenza Type A (PCR) Neg for Influ A Influenza Type B Ag Influenza Type B (PCR) Neg for Influ B Diagnostic Findings blood/urine cx's neg to date flu PCR neg PG Care Time/CCT Total # of Minutes Spent Total Time Spent with Patient: Total time spent is greater than 50% in coordination of care (as documented) at patient's floor/unit and/or counseling patient: (1) Sepsis Sepsis acute organ dysfunction status: unspecified Sepsis type: sepsis due to unspecified organism Qualified Code(s): A41.9 - Sepsis, unspecified organism (2) UTI (urinary tract infection) Hematuria presence: without hematuria Urinary tract infection type: site unspecified Qualified Code(s): N39.0 - Urinary tract infection, site not specified (3) Migraine Migraine type: other Status migrainosus presence: with status migrainosus Intractability: intractable Qualified Code(s): G43.811 - Other migraine, intractable, with status migrainosus (4) Diabetes Diabetes mellitus type: other specified (including MAYTE) Diabetes mellitus 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
[2019-07-25] MEDS: MONTELUKAST SODIUM 10 MG TABLET PO SCH (20:14)
[2019-07-25] MEDS: IRON POLYSACCHARIDE COMPLEX 150 MG CAPSULE PO SCH (20:14)
[2019-07-25] MEDS: VENLAFAXINE HCL 37.5 MG TAB PO SCH (20:14)
[2019-07-25] MEDS: TAMSULOSIN HCL 0.4 MG CAP PO SCH (20:14)
[2019-07-25] MEDS: INSULIN DETEMIR FLEXPEN/FLEX TOUCH 100 UNITS/ML 3ML SQ SCH (20:15)
[2019-07-25] MEDS: ALLOPURINOL 300 MG TAB PO SCH (20:15)
[2019-07-25] MEDS ORDERED: DiphenhydrAMINE HCL 50 MG/ML VIAL IV STA (20:56)
[2019-07-25] MEDS: PRAMIPEXOLE DIHYDROCHLO 0.25 MG TAB PO SCH (22:31)
[2019-07-26] MEDS ORDERED: GLUCOSE 40% GEL 15 GM TUBE PO PRN (00:45)
[2019-07-26] MEDS ORDERED: CARBOHYDRATES FOR HYPOGLYCEMIA PO PRN (00:45)
[2019-07-26] MEDS ORDERED: GLUCAGON FOR INJ 1 MG VIAL SQ PRN (00:45)
[2019-07-26] MEDS ORDERED: GLUCOSE 10 TABS/TUBE PO PRN (00:45)
[2019-07-26] MEDS ORDERED: DEXTROSE 50% 50 ML SYRINGE IV PRN (00:45)
[2019-07-26] MEDS ORDERED: DAPTOmycin 400 MG in SYRINGE 0 ML IV SCH (05:00)
[2019-07-26 07:38] LABS: Hematocrit (blood only) 30.4 % (37-47); Hemoglobin 9.6 g/dL (12.0-16.0); Mean Corpuscular Hemoglobin 30.6 pg (25-34); Mean Corpuscular Hgb Conc 31.6 g/dL (32-36); Mean Corpuscular Volume 96.8 fL (80-100); Mean Platelet Volume 10.4 fL (7.4-10.4); Platelet Count 161 K/uL (130-400); RDW Coefficient of Variation 15.4 % (11.5-14.5); RDW Standard Deviation 54.2 fL (36.4-46.3); Red Blood Count 3.14 M/uL (4.2-5.4); White Blood Count 8.98 K/uL (4.8-10.8)
[2019-07-26] MEDS: CETIRIZINE HCL 10 MG TABLET PO SCH (07:53)
[2019-07-26] MEDS: PRENATAL VITAMIN 1 TAB PO SCH (07:53)
[2019-07-26] MEDS: POT PHOSPHATE MONOBASIC W/ SOD TAB PO SCH (07:53)
[2019-07-26] MEDS: ASPIRIN 81 MG ECTAB PO SCH (07:53)
[2019-07-26] MEDS ORDERED: OXYCODONE HCL IR 5 MG TAB (IMMEDIATE RELEASE) PO STA (08:03)
[2019-07-26 08:09] LABS: BUN Creatinine Ratio 14.2 (10-20); Calcium 8.2 mg/dl (8.5-10.1); Creatinine Clr Calc Pharmacy 43.4 ml/min; Est GFR (African American) 47.6; Est GFR (Non-African American) 41.1; Potassium 3.5 mmol/L (3.5-5.1)
[2019-07-26] MEDS: FIDAXOMICIN 200 MG TAB PO SCH ×2 (08:45→20:36)
[2019-07-26] MEDS: MYCOPHENOLATE SODIUM 180 MG TAB PO SCH ×2 (08:45→20:37)
[2019-07-26] MEDS: predniSONE 5 MG TAB PO SCH (08:46)
[2019-07-26] MEDS: PANTOprazole 40 MG TAB PO SCH (08:46)
[2019-07-26] MEDS: HEPARIN SOD 5,000 UNIT/0.5 ML VIAL SQ SCH ×2 (08:48→20:38)
[2019-07-26] MEDS: INSULIN ASPART 100 UNITS/ML 3 ML PEN SC SCH ×4 (08:48→20:41)
[2019-07-26] MEDS ORDERED: predniSONE 10 MG TABLET PO ONE (09:00)
[2019-07-26] MEDS: CEFEPIME 1,000 MG in SYRINGE 0 ML IV SCH ×2 (09:00→20:36)
--- NOTE | 2019-07-26 15:31 | Infectious Disease Progress Nt ---
Date of Service July 26, 2019 Assessment & Plan (1) Sepsis: 59-year-old female status post renal transplant on chronic immunosuppressive therapy now admitted with clinical picture of sepsis, with urinary tract most likely source. Continue cefepime pending final identification of gram-negative in urine. Likely discontinue daptomycin if no gram positives identified. Will follow. (2) UTI (urinary tract infection): Subjective Patient seen in follow-up for clinical picture of sepsis. Fever again this morning. Complaining of headache. Urine culture growing gram-negative bacilli, blood cultures are no growth to date. Review of Systems Review of Systems: All systems reviewed & are unremarkable except as noted in HPI & below Headache, nausea, vomiting fatigue Physical Exam Constitutional: + acute distress, + ill appearing and + thin Eyes: PERRL, conjunctivae normal, anicteric sclerae ENMT: external ear and nose normal, oropharynx normal Neck: trachea midline, no thyromegaly neck nontender Respiratory: normal respiratory effort, lungs clear to auscultation normal percussion; does not use accessory muscles Cardiovascular: Rate/Rhythm: regular rate and regular rhythm Heart Sounds: normal S1 and normal S2; no gallop, no murmur and no cardiac rub Vessels: normal peripheral pulses; no JVD Gastrointestinal (Abdomen): normal bowel sounds, soft, nontender, no hepatosplenomegaly Musculoskeletal: no cyanosis or clubbing, extremities motor strength 5/5 Spine: thoracic spine normal to inspection and lumbar spine normal to inspection; no cervical spinal tenderness Skin: no rashes, warm and dry normal turgor; no lesions Neurologic: patellar DTR's 2+ bilat, sensation intact no focal motor deficits Psychiatric: A+Ox3, euthymic affect Orientation: cooperative Lymphatic: no cervical or axillary lymphadenopathy no inguinal lymphadenopathy Results & Data Vital Signs (Past 12 Hours) Vital Signs Temp Pulse Resp BP Pulse Ox 07/26/19 15:14 36.6 C 59 L 18 102/63 97 07/26/19 10:46 37.3 C 88 16 124/73 95 07/26/19 07:32 37.9 C H 92 H 24 152/78 H 98 07/26/19 03:33 37.0 C 75 17 119/71 98 Laboratory Results Short CBC 07/26/19 Range/Units 06:49 WBC 8.98 (4.8-10.8) K/uL Hgb 9.6 L (12.0-16.0) g/dL Hct 30.4 L (37-47) % Plt Count 161 (130-400) K/uL BMP 07/26/19 06:49 Sodium 141 Potassium 3.5 Chloride 112 H Carbon Dioxide 24 BUN 20 H Creatinine 1.39 H Glucose 93 Calcium 8.2 L D Diagnostic Findings Microbiology 07/25/19 01:40 Urine,Clean Catch Urine Culture - Preliminary Gram negative bacilli 07/25/19 01:11 Blood Aerobic Blood Culture - Preliminary No growth in Aerobic bottle after 24 hours. 07/25/19 01:11 Blood Anaerobic Blood Culture - Preliminary No growth in Anaerobic bottle after 24 hours. 07/25/19 01:11 Blood Aerobic Blood Culture - Preliminary No growth in Aerobic bottle after 24 hours. 07/25/19:11 Blood Anaerobic Blood Culture - Preliminary No growth in Anaerobic bottle after 24 hours. PG Care Time/CCT Total # of Minutes Spent Total Time Spent with Patient: Total time spent is greater than 50% in coordination of care (as documented) at patient's floor/unit and/or counseling patient: (1) Sepsis Sepsis acute organ dysfunction status: unspecified Sepsis type: sepsis due to unspecified organism Qualified Code(s): A41.9 - Sepsis, unspecified organism (2) UTI (urinary tract infection) Hematuria presence: without hematuria Urinary tract infection type: site unspecified Qualified Code(s): N39.0 - Urinary tract infection, site not specified
--- NOTE | 2019-07-26 17:13 | Hospitalist Progress Note ---
Date of Service July 26, 2019 Assessment & Plan (1) Sepsis: 2nd to GNR UTI - improving. WBC count has normalized. Blood cx's neg. Cont cefepime; d/c IV daptomycin. Eating/drinking improved -- d/c fluids today. stress dose steroids (30mg prednisone today, 20mg prednisone tomorrow, and so forth). appreciate ID consultation. (2) UTI (urinary tract infection): 2nd to GNR. follow culture. cont cefepime; stop daptomycin. ID consult appreciated. Cont supportive care, stress dose steroids, etc. (3) History of kidney transplant: noted. follows with Dr Roy locally. on mycophenalate and prednisone chronically along with belatacept. Cr at baseline 1.5. Cr today stable. repeat BMP am. (4) Migraine: improved today. fioricet prn. if refractory then consider maxalt prn, IV steroids, etc. (5) Chronic kidney disease, stage 3a: baseline Cr 1.5 daily BMP while here Cr cont to be stable (6) Diabetes: cont levemir added novolog ac cont correction factor 75 add carb coverage - use 1:30 ratio (7) DVT prophylaxis: heparin q12h cont dificid for c. diff prophy (has had recurrent c.diff in past) updated Dr Roy today patient progressing Subjective pt feels much better today more energy, better appetite headache improved had some mild neck discomfort (muscular) this am - treated with oxycodone - now resolved no abd pain tele stable overnight Review of Systems Constitutional: + fever and + fatigue; no chills Respiratory: no cough and no dyspnea Cardiovascular: no chest pain Gastrointestinal: no abdominal pain and no diarrhea/loose stools Physical Exam Constitutional: average body habitus; no acute distress, not ill appearing (looks much better today) and no altered mental status ENMT: external ear and nose normal, oropharynx normal Neck: neck nontender Respiratory: normal respiratory effort, lungs clear to auscultation Cardiovascular: Rate/Rhythm: regular rate and regular rhythm Heart Sounds: normal S1 and normal S2; no murmur Vessels: posterior tibial pulses present and dorsalis pedis pulses present; no JVD Extremities: no edema Gastrointestinal (Abdomen): normal bowel sounds, soft, nontender, no hepatosplenomegaly kidney transplant, RLQ - palpable, nontender Skin: no rashes, warm and dry Psychiatric: A+Ox3, euthymic affect Results & Data Vital Signs (Past 12 Hours) Vital Signs Temp Pulse Resp BP Pulse Ox 07/26/19 15:14 36.6 C 59 L 18 102/63 97 07/26/19 10:46 37.3 C 88 16 124/73 95 07/26/19 07:32 37.9 C H 92 H 24 152/78 H 98 Laboratory Results Laboratory Results - last 24 hr 07/25/19 07/26/19 07/26/19 20:10 06:49 06:49 WBC 8.98 RBC 3.14 L Hgb 9.6 L Hct 30.4 L MCV 96.8 MCH 30.6 MCHC 31.6 L RDW Std Deviation 54.2 H RDW Coeff of Valentina 15.4 H Plt Count 161 MPV 10.4 Sodium 141 Potassium 3.5 Chloride 112 H Carbon Dioxide 24 Anion Gap 5.0 BUN 20 H Creatinine 1.39 H Est Cr Clr Drug Dosing 43.4 Est GFR ( Amer) 47.6 Est GFR (Non-Af Amer) 41.1 BUN/Creatinine Ratio 14.2 Glucose 93 POC Glucose 180 H Calcium 8.2 L D 07/26/19 07/26/19 07/26/19 07:34 10:50 16:11 WBC RBC Hgb Hct MCV MCH MCHC RDW Std Deviation RDW Coeff of Valentina Plt Count MPV Sodium Potassium Chloride Carbon Dioxide Anion Gap BUN Creatinine Est Cr Clr Drug Dosing Est GFR ( Amer) Est GFR (Non-Af Amer) BUN/Creatinine Ratio Glucose POC Glucose 101 H 129 H 185 H Calcium Diagnostic Findings urine cx - GNR, >100,000 CFU blood cx's neg PG Care Time/CCT Total # of Minutes Spent Total Time Spent with Patient: Total time spent is greater than 50% in coordination of care (as documented) at patient's floor/unit and/or counseling patient: (1) UTI (urinary tract infection) Hematuria presence: without hematuria Urinary tract infection type: site unspecified Qualified Code(s): N39.0 - Urinary tract infection, site not specified (2) Diabetes Diabetes mellitus complication status: with other specified complication Diabetes mellitus residential insulin use: with intermediate card tender use Diabetes mellitus type: other specified (including MAYTE) Qualified Code(s): E13.69 - Other specified diabetes mellitus with other specified complication; Z79.4 - salvage determiner (current) use of insulin (3) Migraine Intractability: intractable Migraine type: other Status migrainosus presence: with status migrainosus Qualified Code(s): G43.811 - Other migraine, intractable, with status migrainosus (4) Sepsis Sepsis acute organ dysfunction status: unspecified Sepsis type: sepsis due to unspecified organism Qualified Code(s): A41.9 - Sepsis, unspecified organism
[2019-07-26] MEDS: TAMSULOSIN HCL 0.4 MG CAP PO SCH (20:37)
[2019-07-26] MEDS: ALLOPURINOL 300 MG TAB PO SCH (20:37)
[2019-07-26] MEDS: IRON POLYSACCHARIDE COMPLEX 150 MG CAPSULE PO SCH (20:37)
[2019-07-26] MEDS: MONTELUKAST SODIUM 10 MG TABLET PO SCH (20:38)
[2019-07-26] MEDS: INSULIN DETEMIR FLEXPEN/FLEX TOUCH 100 UNITS/ML 3ML SQ SCH (20:39)
[2019-07-26] MEDS ORDERED: DiphenhydrAMINE HCL 50 MG/ML VIAL IV STA (21:06)
[2019-07-26] MEDS: PRAMIPEXOLE DIHYDROCHLO 0.25 MG TAB PO SCH (21:49)
[2019-07-26] MEDS: VENLAFAXINE HCL 37.5 MG TAB PO SCH (21:49)
[2019-07-27] MEDS: FIDAXOMICIN 200 MG TAB PO SCH (07:41)
[2019-07-27] MEDS: ASPIRIN 81 MG ECTAB PO SCH (07:42)
[2019-07-27] MEDS: PRENATAL VITAMIN 1 TAB PO SCH (07:42)
[2019-07-27] MEDS: POT PHOSPHATE MONOBASIC W/ SOD TAB PO SCH ×2 (07:42→07:50)
[2019-07-27] MEDS: PANTOprazole 40 MG TAB PO SCH (07:42)
[2019-07-27] MEDS: MYCOPHENOLATE SODIUM 180 MG TAB PO SCH (07:43)
[2019-07-27] MEDS: INSULIN ASPART 100 UNITS/ML 3 ML PEN SC SCH (07:44)
[2019-07-27] MEDS: CETIRIZINE HCL 10 MG TABLET PO SCH (07:44)
[2019-07-27] MEDS: HEPARIN SOD 5,000 UNIT/0.5 ML VIAL SQ SCH (07:45)
[2019-07-27 08:43] LABS: Hematocrit (blood only) 32.4 % (37-47); Hemoglobin 10.2 g/dL (12.0-16.0); Mean Corpuscular Hemoglobin 30.6 pg (25-34); Mean Corpuscular Hgb Conc 31.5 g/dL (32-36); Mean Corpuscular Volume 97.3 fL (80-100); Mean Platelet Volume 9.4 fL (7.4-10.4); Platelet Count 161 K/uL (130-400); RDW Coefficient of Variation 15.2 % (11.5-14.5); RDW Standard Deviation 54.2 fL (36.4-46.3); Red Blood Count 3.33 M/uL (4.2-5.4)
[2019-07-27] MEDS ORDERED: predniSONE 20 MG TAB PO SCH (09:00)
[2019-07-27 09:10] LABS: BUN Creatinine Ratio 17.8 (10-20); Calcium 9.2 mg/dl (8.5-10.1); Creatinine Clr Calc Pharmacy 41.3 ml/min; Est GFR (African American) 44.9; Est GFR (Non-African American) 38.7; Potassium 3.6 mmol/L (3.5-5.1)
[2019-07-27] MEDS: CEFEPIME 1,000 MG in SYRINGE 0 ML IV SCH (09:19)
--- NOTE | 2019-07-27 13:04 | Discharge Summary ---
Date of Service July 27, 2019 Admission HPI Per Admitting Provider 59-year-old female with a past medical history of renal transplant x2 (2000, 2018), chronically immunosuppressed, recurrent C. difficile colitis, HTN, DM 2, chronic anemia, restless leg, SBO, gout presents with persistent fever for greater than 24 hours. States that she is also had nausea, vomiting, sinus pressure and myalgias. She has vomited approximately 5 times over the past 24 hours. She states she is able to keep down fluids. She denies any abdominal pain or diarrhea. She denies any dysuria. She denies any shortness of breath or cough. The patient is on immunosuppressive therapy. Follows up with transplant surgeon Dr. Umana with [facility]. Review of systems Constitutional; reports fevers, chills HEENT; denies sore throat, reports sinus pressure, denies ear pain, denies runny nose Respiratory; denies cough, wheezing, shortness of breath, hemoptysis CV; denies chest pain, palpitations, edema Abdomen; denies abdominal pain, but reports nausea/vomiting. Denies diarrhea Principal Diagnosis Sepsis due to UTI, Klebsiella Discharge Exam Constitutional WD/WN, vitals as above Eyes PERRL, conjunctivae normal, anicteric sclerae ENMT external ear and nose normal, oropharynx normal Neck trachea midline, no thyromegaly Respiratory normal respiratory effort, lungs clear to auscultation Cardiovascular RRR, no murmur, no edema Gastrointestinal (Abdomen) normal bowel sounds, soft, nontender, no hepatosplenomegaly Musculoskeletal no cyanosis or clubbing, extremities motor strength 5/5 Skin no rashes, warm and dry Neurologic patellar DTR's 2+ bilat, sensation intact and PERRL, EOMI, accommodation nl, no face palsy, no dysarthria Psychiatric A+Ox3, euthymic affect Lymphatic no cervical or axillary lymphadenopathy Discharge Data Allergies Allergy/AdvReac Type Severity Reaction Status Date / Time Iodinated Contrast Media Allergy Severe Hx Kidney Verified 07/25/19 02:00 Transplant Gigoppu-Efi-Yfk Reductase Allergy Severe "PANCREATIT Verified 07/25/19 02:00 Inhibitor IS" sumatriptan Allergy Severe seizure Verified 07/25/19 02:00 hydrochlorothiazide Allergy Mild Unknown Verified 07/25/19 02:00 Sulfa (Sulfonamide Allergy Mild . Verified 07/25/19 02:00 Antibiotics) triamterene Allergy Mild Unknown Verified 07/25/19 02:00 atorvastatin Allergy Unknown ? Verified 07/25/19 02:00 doxycycline Allergy Unknown UNKNOWN Verified 07/25/19 02:00 levofloxacin Allergy Unknown joint pain Verified 07/25/19 02:00 adhesive AdvReac Unknown SKIN TEAR Verified 07/25/19 02:00 Cipro AdvReac Unknown FATIGUE Verified 01/20/18 21:00 ciprofloxacin AdvReac Unknown FATIGUE Verified 07/25/19 02:00 morphine AdvReac Unknown INEFFECTIVE Verified 07/25/19 02:00 Consultations 07/25/19 04:32 ED Decision to Admit Stat 07/25/19 05:55 Consult Case Management - Discharge Planning Routine Consult Infectious Diseases Routine Hospital Course (1) Sepsis: 2nd to Klebsiella sensitive to cephalosporins stop Cefepime, d/c home on Keflex x 10 more days WBC normal Blood cx's neg. Eating/drinking improved stress dose steroids (20mg Prednisone today, then 10mg daily x 3 days then 5mg daily) appreciate ID consultation. (2) UTI (urinary tract infection): 2nd to Klebsiella on final culture, sensitive to cephalosporins treated with Cefepime originally and then Keflex ID consult appreciated. (3) History of kidney transplant: noted. follows with Dr Roy locally. on mycophenalate and prednisone chronically along with belatacept. Cr at baseline for several days (4) Migraine: improved today. fioricet prn. (5) Chronic kidney disease, stage 3a: baseline Cr 1.5 daily BMP while here Cr cont to be stable (6) Diabetes: cont levemir added novolog ac cont correction factor 75 add carb coverage - use 1:30 ratio (7) DVT prophylaxis: heparin q12h cont dificid for c. diff prophy (has had recurrent c.diff in past) prescribe 10 days of Dificid on discharge to cover while on Keflex Total Time Total Time Spent Total Time Spent (In Minutes): 31 minutes Total Time Includes: Examination of the Patient, Discharge Planning and Medication Reconciliation Discharge Plan Discharge Items Patient Disposition: Home - Self-Care Reason For Visit: UROSEPSIS,IMMUNOSUPRESSED Discharge Diagnosis: Sepsis due to UTI Klebsiella UTI CKD s/p transplant, renal function stable Condition on Discharge: Good Goals: complete course of Keflex for treatment of UTI Activity: Resume your previous activity Non-emergency contact: Primary Care Provider Call non-emergency contact if: you have any medication questions, your symptoms worsen and you have a fever Follow-up/Referrals: Shruthi Mcbride DO [Primary Care Provider] - Diet: Carb Consistent or DM2 and Heart Healthy Addtl Attending Provider Instructions: Medications: - KEFLEX: take twice a day for 10 days to treat Klebsiella UTI - DIFICID: take twice a day for 10 days to prevent C diff colitis - PREDNISONE: take 10mg daily for three more days then resume 5mg daily dosing Sepsis due to UTI, Klebsiella responded well to Cefepime IV for several days, Daptomycin stopped as no evidence of gram positive infection urine culture grew out Klebsiella which is sensitive to cephalosporins will complete 10 more days no fever, WBC normal Chronic steroid use: treated with pulse dose steroids, tapering down, complete three days of Prednisone 10mg then resume 5mg daily H/o C diff: complete 10 days of Dificid to prevent C diff colitis FOLLOW UP - Dr. Mcbride next week, call her office on Monday to arrange follow up for /Monday if possible Pending Studies at Discharge: No Stand-Alone Forms: My [facility] [employer], Smoking Cessation Medications and DC Order Prescriptions: New Dificid 200 mg Tablet 200 mg PO BID 10 Days Qty: 20 RF: 0 cephalexin [Keflex] 500 mg capsule 500 mg PO BID 10 Days Qty: 20 RF: 0 prednisone 10 mg tablet 10 mg PO DAILY 3 Days Qty: 3 RF: 0 Continued hydralazine 25 mg tablet 25 mg PO TID Qty: 90 RF: 2 prednisone 5 mg tablet 5 mg PO QAM Qty: 90 RF: 3 mycophenolate sodium [Myfortic] 180 mg tablet,delayed release (DR/EC) 360 mg PO BID Qty: 360 RF: 1 allopurinol 300 mg Tablet 300 mg PO QPM RF: 0 biotin 5,000 mcg Tablet,Disintegrating 5,000 mcg PO QAM RF: 0 venlafaxine [Effexor XR] 37.5 mg Capsule,Extended Release 24hr 18.75 mg PO HS RF: 0 polysaccharide iron complex [Ferrex 150] 150 mg iron Capsule 150 mg PO HS RF: 0 cjgtpdngdz-irzaffrvjpfff-rsls 50-300-40 mg capsule 1 tab PO DAILY PRN (Reason: Headache) RF: 0 Levemir FlexTouch U-100 Insuln 100 unit/mL (3 mL) Insulin Pen 6 units subcut HS RF: 0 pramipexole [Mirapex] 0.125 mg Tablet 0.125 mg PO HS RF: 0 pantoprazole 40 mg Tablet,Delayed Release (Dr/Ec) 40 mg PO QAM RF: 0 Premarin 0.625 mg Tablet 0.625 mcg PO WK RF: 0 28-800 mg-mcg Tablet 1 tab PO QAM RF: 0 cetirizine [Zyrtec] 10 mg Tablet 10 mg PO QAM RF: 0 tamsulosin 0.4 mg capsule 0.4 mg PO HS RF: 0 montelukast 10 mg tablet 10 mg PO HS RF: 0 ilbgqzxjnj-uargcbwyuagyt-avve 50-300-40 mg capsule 1 cap PO DAILY PRN (Reason: Migraine Headache) RF: 0 carvedilol [Coreg] 6.25 mg tablet 18.75 mg PO BID RF: 0 aspirin [Aspir-81] 81 mg Tablet,Delayed Release (Dr/Ec) 81 mg PO DAILY RF: 0 azelastine 137 mcg (0.1 %) Aerosol,[place] 2 spray INTRANASAL Q12H PRN (Reason: Nasal Congestion) RF: 0 fluticasone propionate [Flonase Allergy Relief] 50 mcg/actuation [place],Suspension 2 spray INTRANASAL DAILY PRN (Reason: SEASONAL ALLERGIES) RF: 0 melatonin 1 mg Tablet PO HS RF: 0 Nulojix 250 mg recon soln IV .[id number] RF: 0 Discontinued N-Ehlp-Uddlsjt 250 mg tablet 2 tab PO QAM RF: 0 Discharge Orders: Discharge Order (Routine); Ordered 07/27/19 Ordered By: John Meadows/Other Patient Handouts: UTI, Sepsis Dc Admission Data Admit Date/Time: 07/25/19 05:40 Attending Provider: John Langley Admit Provider: Jono Blanton Primary Care Provider: Shruthi Mcbride Other Providers: Castillo Honeycutt ; Jose Elias Donato Other Interventions: Discharge Summary Assessment (RN) Last Done: 07/27/19 09:57 DC Date/Time DO NOT enter until pt leaves facility: 07/27/19 10:33
== END 2019-07-27 10:33 | disposition home or self-care (01) | DRG 872 ==
LOC: ED 00:21 → 2S 05:40 → SUATTDRO 05:40 → 2S 05:45

== ENCOUNTER 2020-04-13 00:04 | Inpatient (IN) ==
[2020-04-13] MEDS ORDERED: SODIUM CHLORIDE 0.9% 1000ML 1,000 ML IV ONE (00:48)
[2020-04-13] MEDS ORDERED: ONDANSETRON INJ 2 MG/ML 2 ML VIAL IV STA (00:50)
[2020-04-13] MEDS ORDERED: HYDROmorphone INJ 1 MG/ML SYRINGE IV STA (00:50)
--- NOTE | 2020-04-13 00:55 | Emergency Department Note ---
Impression & Plan Pyelonephritis of transplanted kidney, Immunocompromised state, Fever ED Provider Note Name: ANAYA PERSAUD Age: 60 Sex: F Arrives Via: Walk-In Informant: Patient, ED Provider: John Jeffers MD Chief Complaint: Fever Impression: Pyelonephritis of transplanted kidney Immunocompromised State Fever Medical Decision Makin yr old pleasant female with history of renal transplant on anti-rejection medications who arrives for evaluation of fevers, body aches, and abdominal pain in setting of increased diarrhea recently. She notes that symptoms rapidly worsening overnight and fevers began. She is ill appearing on arrival and sepsis orders placed. Given iv tylenol and IV fluids with improvement in vitals and dilaudid/zofran for symptoms with vast improvement. Given HR improvement felt that holding off on 30ml/kg IV fluids reasonable to avoid overload in this patient. CXR clear. UA unremarkable. She was given empiric Zosyn/Dapto for br oad spectrum coverage as well. With abdominal pains and RLQ/suprapubic TTP felt CT indicated which revealed right perinephric stranding. Suspect primary issues is pyelonephritis of this transplanted kidney, though normal UA seems unusual. She does have some colitis as well that is noted. No stool given while here though with cdiff history I did order testing given diarrhea as well. She was feeling much improved and HR remains stable as does BP. Lactate normal along with other labs are essentially at her baseline. She was discussed with hospitalist and will come in for further management. No sob, cough and with etiology likely abdominal I do not feel this is COVID nor requires testing at this time. Prior Medical Record and Triage/Nursing Notes reviewed by Me Additional history obtained from chart Differentials:Viral syndrome, otitis, pharyngitis, pneumonia, influenza, meningitis, urinary tract infection, sepsis, bacteremia, as well as other pathologies. Vital Signs: reviewed and remarkable for fever, tachycardia Interventions: NSS bolus 1 L IV with 125ml/hr gtt, Zofran 4mg IV, Dilaudid 1mg IV, Zosyn 4.5gm IV, Dapto 400mg IV, Tylenol 1gm IV Labs:Reviewed and remarkable for no significant abnormalities Imaging:X ray results are stated below per my interpretation: Chest: 1 view: No infiltrate, no effusion, normal cardiac border. Unchanged from previous Consults:Dr Honeycutt Hospitalist accepts for further evaluation. Plan: Disposition:Hospitalization. Condition: Good Blood pressure:Normal.No Referral necessary Prescriptions:None PDMP: n/a History of Present Illness:60 / F with history of renal transplant on immunosuppression amongst host of other medical issues arrives for evaluation of fever. Patient with episode of yeast infection about a month ago treated with diflucan as well as po vanco to avoid cdiff which is in her history. She notes that she was starting to have diarrhea over the last week. In the last day noting black diarrhea which is frequent without blood. Today with increasing right sided abdominal pain. Associated with nausea. Pain worsening this evening and now having fevers. Denies vomiting. No cp, sob, syncope, headache, neck pain, leg swelling, rashes, nor other symptoms. No medications prior to arrival. Nothing makes better, movement makes worse. Denies trauma nor falls. ROS: See above HPI for pertinent positives & negatives. A total of 10 systems reviewed and were otherwise negative. Past Medical History:See Below Past Surgical History:See Below Family History:See Below Social History:See Below Home Medications:See Below Allergies:See Below Vitals:Blood Pressure: 148/80, Pulse 97, RR 20, T 38.1C, O2 100% on RA Physical Exam: GENERAL: Patient is ill appearing and in moderate distress. Warm to touch EYES: No scleral icterus, unremarkable pupils. ENT: Mucous membranes dry, no nasal congestion. NECK: No masses appreciated, nomeningismus, trachea is midline. RESPIRATORY: No dyspnea. Clear to auscultation and equal bilaterally. No wheeze, no rhonchi. CARDIOVASCULAR: Tachy.No murmurs, rubs, gallops appreciated. GASTROINTESTINAL: Extensive surgical scarring, moderate right abdominal and suprapubic TTP, mildly hyperactive bowel sounds, mild left abdominal TTP. BACK: No midline tenderness, no CVA tenderness EXTREMITIES: Normal motion all extremities, no cyanosis, no edema. NEUROLOGIC: Alert and oriented, no acute motor or sensory deficits, no focal weakness, cranial nerves grossly intact. SKIN: No rash, no jaundice, no diaphoresis. PSYCH: Appropriate GCS: 15 ED Course: Times/Reassessments: Multiple, rapid improvement in symptoms and vitals with treatment. Comfortable with hospitalization John Jeffers MD Past Med/Surg History Medical History (Updated 04/13/20 @ 05:34 by John Jeffers MD) Abdominal pain (Resolved) Acute gout (Inactive) Acute pyelonephritis (Resolved) Acute renal failure Allergic rhinitis due to allergen (Inactive) CKD (chronic kidney disease) stage 4, GFR 15-29 ml/min Clostridium difficile diarrhea (Resolved) Dehydration (Acute) Diarrhea (Inactive) Diarrhea (Inactive) Diarrhea of presumed infectious origin Fever HTN (hypertension) (Chronic) Immunosuppressed status Intractable vomiting (Resolved) Migraine Migraine Pancreatitis Partial bowel obstruction (Resolved) SBO (small bowel obstruction) (Resolved) SBO (small bowel obstruction) (Resolved) Sepsis Sinus congestion (Inactive) SIRS (systemic inflammatory response syndrome) Unspecified asthma (Inactive) UTI (lower urinary tract infection) (Resolved 10/21/14) Surgical History (Updated 02/11/20 @ 11:31 by Eugene Roy MD) History of kidney transplant (Resolved) Kidney replaced by transplant (Inactive) Kidney transplant status (Inactive) Social History Preferred Language: Mohawk Communication Ability: Effective Flask Cleaner Required: No Beliefs That Will Affect Care: None marital status: Current Living Situation: Spouse Feels Safe at Home: Yes Smoking Status: Former smoker Second Hand Exposure: No ; Hx Alcohol Use: Yes Alcohol type: wine Hx Substance Use: No Allergies Allergies Allergy/AdvReac Type Severity Reaction Status Date / Time Iodinated Contrast Media Allergy Severe Hx Kidney Verified 04/13/20 02:11 Transplant Splluqb-Tgx-Iio Reductase Allergy Severe "PANCREATIT Verified 04/13/20 02:11 Inhibitor IS" sumatriptan Allergy Severe seizure Verified 04/13/20 02:11 hydrochlorothiazide Allergy Mild Unknown Verified 04/13/20 02:11 Sulfa (Sulfonamide Allergy Mild . Verified 04/13/20 02:11 Antibiotics) triamterene Allergy Mild Unknown Verified 04/13/20 02:11 atorvastatin Allergy Unknown ? Verified 04/13/20 02:11 doxycycline Allergy Unknown UNKNOWN Verified 04/13/20 02:11 levofloxacin Allergy Unknown joint pain Verified 04/13/20 02:11 adhesive AdvReac Unknown SKIN TEAR Verified 04/13/20 02:11 Cipro AdvReac Unknown FATIGUE Verified 01/20/18 21:00 ciprofloxacin AdvReac Unknown FATIGUE Verified 04/13/20 02:11 morphine AdvReac Unknown INEFFECTIVE Verified 04/13/20 02:11 Home Meds Home Medications Medication Instructions Recorded Confirmed Levemir FlexTouch U-100 Insuln 9 units SUBCUT HS 09/01/18 04/13/20 allopurinol 300 mg PO 3XWK 09/01/18 04/13/20 pramipexole [Mirapex] 0.125 mg PO HS 09/01/18 04/13/20 montelukast 10 mg PO HS 03/26/19 04/13/20 tamsulosin 0.4 mg PO BID 03/26/19 04/13/20 azelastine 2 spray INTRANASAL Q12H PRN 07/10/19 04/13/20 fluticasone propionate [Flonase 2 spray INTRANASAL DAILY PRN 07/10/19 04/13/20 Allergy Relief] loperamide 2 mg capsule 2 mg PO .COMPLEX cap 10/11/19 04/13/20 pantoprazole 40 mg tablet,delayed 40 mg PO 3XWK 10/11/19 04/13/20 release PNV cmb#95-ferrous fumarate-FA 1 tab PO DAILY 04/13/20 04/13/20 [] lihcywzcln-ibwfnlhzappvs-tyar 1 cap PO Q6H PRN 04/13/20 04/13/20 [Fioricet] conjugated estrogens [Premarin] 0.625 mg PO WK 04/13/20 04/13/20 gabapentin 100 mg PO UD 04/13/20 04/13/20 polysaccharide iron complex 150 mg PO QAM 04/13/20 04/13/20 [Ferrex 150] repaglinide 0.5 mg PO TID 04/13/20 04/13/20 sirolimus 1 mg PO BID 04/13/20 04/13/20 Previous Rx's Medication Instructions Recorded prednisone 5 mg tablet 5 mg PO QAM #90 tab 05/02/19 venlafaxine 50 mg tablet 50 mg PO DAILY #90 tab 10/08/19 mycophenolate sodium 180 mg 360 mg PO BID #360 tab 11/04/19 tablet,delayed release ropinirole 0.25 mg tablet 0.25 mg PO HS #90 tab 01/27/20 fidaxomicin 200 mg tablet 200 mg PO Q12H #30 tab 03/16/20 carvedilol 6.25 mg tablet 18.75 mg PO BID #540 tab 03/18/20 Results & Data (ED) Vital Signs Vital Signs - 24 hr 04/13/20 00:20 04/13/20 01:53 04/13/20 02:00 Temperature 38.1 C H Temperature Source Oral Pulse Rate 97 H 75 78 Respiratory Rate 20 18 17 Blood Pressure 148/80 H 162/78 H 157/79 H Blood Pressure Mean 102 105 99 Blood Pressure Position Sitting Pulse Oximetry 100 98 97 Oxygen Delivery Method Room Air Room Air Room Air Sepsis Recent Fever Within 48 Hours Yes Sepsis New/Unexplained Change in Mental Status No Sepsis Action Taken by Nursing No Action Required 04/13/20 03:00 04/13/20 03:36 04/13/20 04:00 Temperature 37.1 C Temperature Source Oral Pulse Rate 70 72 Respiratory Rate 14 12 Blood Pressure 117/62 124/61 Blood Pressure Mean 87 92 Blood Pressure Position Pulse Oximetry Oxygen Delivery Method Sepsis Recent Fever Within 48 Hours Sepsis New/Unexplained Change in Mental Status Sepsis Action Taken by Nursing 04/13/20 04:01 04/13/20 05:00 04/13/20 05:01 Temperature Temperature Source Pulse Rate 62 64 58 L Respiratory Rate 15 16 17 Blood Pressure 109/44 L Blood Pressure Mean 62 Blood Pressure Position Pulse Oximetry 95 Oxygen Delivery Method Sepsis Recent Fever Within 48 Hours Sepsis New/Unexplained Change in Mental Status Sepsis Action Taken by Nursing Laboratory Data Result diagrams: 04/13/20 01:05 04/13/20 01:05 Lab Results 04/13/20 04/13/20 04/13/20 Range/Units 01:05 01:05 01:05 WBC 6.31 (4.8-10.8) K/uL RBC 4.16 L (4.2-5.4) M/uL Hgb 12.7 (12.0-16.0) g/dL Hct 38.4 (37-47) % MCV 92.3 (80-100) fL MCH 30.5 (25-34) pg MCHC 33.1 (32-36) g/dL RDW Std Deviation 44.4 (36.4-46.3) fL RDW Coeff of Valentina 13.3 (11.5-14.5) % Plt Count 144 (130-400) K/uL MPV 9.8 (7.4-10.4) fL Immature Gran % (Auto) 0.3 % Neut % (Auto) 81.7 % Lymph % (Auto) 7.0 % [place] % (Auto) 10.0 % Eos % (Auto) 0.8 % Baso % (Auto) 0.2 % Neut # (Auto) 5.16 (1.4-6.5) K/uL Lymph # (Auto) 0.44 L (1.2-3.4) K/uL [place] # (Auto) 0.63 H (0.11-0.59) K/uL Eos # (Auto) 0.05 (0-0.5) K/uL Baso # (Auto) 0.01 (0-0.2) K/uL Immature Gran # (Auto) 0.02 (0.00-0.02) K/uL PT 10.5 (9.0-12.0) Seconds INR 1.0 (0.9-1.1) Sodium 141 (136-145) mmol/L Potassium 3.8 (3.5-5.1) mmol/L Chloride 106 (98-107) mmol/L Carbon Dioxide 25 (21-32) mmol/L Anion Gap 10.0 (3-11) BUN 27 H (7-18) mg/dl Creatinine 1.56 H (0.6-1.2) mg/dl Est Cr Clr Drug Dosing 38.2 ml/min Est GFR ( Amer) 41.1 Est GFR (Non-Af Amer) 35.5 BUN/Creatinine Ratio 17.2 (10-20) Glucose 103 H (70-99) mg/dl Lactate (0.4-2.0) mmol/L Calcium 9.2 (8.5-10.1) mg/dl Magnesium 1.7 L (1.8-2.4) mg/dl Total Bilirubin 0.5 (0.2-1) mg/dl Direct Bilirubin < 0.1 (0-0.2) mg/dl AST 34 (15-37) U/L ALT 32 (12-78) U/L Alkaline Phosphatase 94 (45-117) U/L Troponin I < 0.015 (0-0.045) ng/ml Total Protein 7.6 (6.4-8.2) gm/dl Albumin 3.3 L (3.4-5.0) gm/dl Lipase 271 (73-393) U/L Specimen Hemolysis Urine Color Urine Appearance (Clear) Urine pH (4.5-7.5) Ur Specific [place] (1.000-1.030) Urine Protein (Negative) Urine Glucose (UA) (Negative) Urine Ketones (Negative) Urine Blood (Negative) Urine Nitrite (Negative) Urine Bilirubin (Negative) Urine Urobilinogen (Negative) Ur Leukocyte Esterase (Negative) Urine WBC (Auto) (0-5) /hpf Urine RBC (Auto) (0-4) /hpf U Hyaline Cast (Auto) (0-5) /lpf U Epithel Cells (Auto) (0-5) /lpf Urine Bacteria (Auto) (Negative) 04/13/20 04/13/20 Range/Units 01:20 01:42 WBC (4.8-10.8) K/uL RBC (4.2-5.4) M/uL Hgb (12.0-16.0) g/dL Hct (37-47) % MCV (80-100) fL MCH (25-34) pg MCHC (32-36) g/dL RDW Std Deviation (36.4-46.3) fL RDW Coeff of Valentina (11.5-14.5) % Plt Count (130-400) K/uL MPV (7.4-10.4) fL Immature Gran % (Auto) % Neut % (Auto) % Lymph % (Auto) % [place] % (Auto) % Eos % (Auto) % Baso % (Auto) % Neut # (Auto) (1.4-6.5) K/uL Lymph # (Auto) (1.2-3.4) K/uL [place] # (Auto) (0.11-0.59) K/uL Eos # (Auto) (0-0.5) K/uL Baso # (Auto) (0-0.2) K/uL Immature Gran # (Auto) (0.00-0.02) K/uL PT (9.0-12.0) Seconds INR (0.9-1.1) Sodium (136-145) mmol/L Potassium (3.5-5.1) mmol/L Chloride (98-107) mmol/L Carbon Dioxide (21-32) mmol/L Anion Gap (3-11) BUN (7-18) mg/dl Creatinine (0.6-1.2) mg/dl Est Cr Clr Drug Dosing ml/min Est GFR ( Amer) Est GFR (Non-Af Amer) BUN/Creatinine Ratio (10-20) Glucose (70-99) mg/dl Lactate 0.2 L (0.4-2.0) mmol/L Calcium (8.5-10.1) mg/dl Magnesium (1.8-2.4) mg/dl Total Bilirubin (0.2-1) mg/dl Direct Bilirubin (0-0.2) mg/dl AST (15-37) U/L ALT (12-78) U/L Alkaline Phosphatase (45-117) U/L Troponin I (0-0.045) ng/ml Total Protein (6.4-8.2) gm/dl Albumin (3.4-5.0) gm/dl Lipase (73-393) U/L Specimen Hemolysis Urine Color Yellow Urine Appearance Clear (Clear) Urine pH 7.0 (4.5-7.5) Ur Specific [place] 1.014 (1.000-1.030) Urine Protein 2+ H (Negative) Urine Glucose (UA) Negative (Negative) Urine Ketones Negative (Negative) Urine Blood Trace H (Negative) Urine Nitrite Negative (Negative) Urine Bilirubin Negative (Negative) Urine Urobilinogen Negative (Negative) Ur Leukocyte Esterase Negative (Negative) Urine WBC (Auto) 1-5 (0-5) /hpf Urine RBC (Auto) 0-4 (0-4) /hpf U Hyaline Cast (Auto) 0 (0-5) /lpf U Epithel Cells (Auto) 20-30 H (0-5) /lpf Urine Bacteria (Auto) Negative (Negative) Administered Medications Sodium Chloride (Nss 1000ml) 1,000 mls @ 125 mls/hr IV .Q8H RADHA Stop: 05/13/20 03:14 Last Admin: 04/13/20 03:35 Dose: 125 mls/hr Documented by: [id number] Discontinued Medications Acetaminophen (Tylenol) 1,000 mg PO NOW STA Stop: 04/13/20 00:49 Last Admin: 04/13/20 01:49 Dose: Not Given Documented by: [id number] Hydromorphone HCl (Dilaudid) 1 mg IV NOW STA Stop: 04/13/20 00:51 Last Admin: 04/13/20 01:21 Dose: 1 mg Documented by: [id number] Sodium Chloride (Nss 1000ml) 1,000 mls @ 999 mls/hr IV .Q1H1M ONE Stop: 04/13/20 01:48 Last Infusion: 04/13/20 02:18 Dose: 0 mls/hr Documented by: [id number] Admin: 04/13/20 01:18 Dose: 999 mls/hr Documented by: [id number] Acetaminophen (Ofirmev) 1,000 mg in 100 mls @ 400 mls/hr IV NOW STA Stop: 04/13/20 01:51 Last Infusion: 04/13/20 02:18 Dose: 0 mls/hr Documented by: [id number] Admin: 04/13/20 01:46 Dose: 400 mls/hr Documented by: [id number] Piperacillin Sod/Tazobactam Sod (Zosyn) 4.5 gm in 120 mls @ 240 mls/hr IV NOW ONE Stop: 04/13/20 03:10 Last Infusion: 04/13/20 04:05 Dose: 0 mls/hr Documented by: [id number] Admin: 04/13/20 03:35 Dose: 240 mls/hr Documented by: [id number] Daptomycin 400 mg/ Syringe 8 mls @ 4 mls/min IV NOW ONE; Protocol Stop: 04/13/20 02:42 Last Admin: 04/13/20 03:42 Dose: 4 mls/min Documented by: [id number] Ondansetron HCl (Zofran) 4 mg IV NOW STA Stop: 04/13/20 00:51 Last Admin: 04/13/20 01:21 Dose: 4 mg Documented by: [id number] Discharge Plan Visit Data Chief Complaint: GI Assessment Stated Complaint: DIARRHEA-BLACK,FEVER,CHILLS TRANSPLANT PATIENT ED Provider: John Jeffers Discharge Problem: Pyelonephritis of transplanted kidney, Immunocompromised state, Fever Forms Stand Alone Forms: [facility] [place] [employer] Prescriptions Prescriptions: No Action prednisone 5 mg tablet 5 mg PO QAM Qty: 90 RF: 3 venlafaxine 50 mg tablet 50 mg PO DAILY Qty: 90 RF: 3 mycophenolate sodium [Myfortic] 180 mg tablet,delayed release (DR/EC) 360 mg PO BID Qty: 360 RF: 1 ropinirole [Requip] 0.25 mg tablet 0.25 mg PO HS Qty: 90 RF: 2 Dificid 200 mg tablet 200 mg PO Q12H Qty: 30 RF: 0 carvedilol 6.25 mg tablet 18.75 mg PO BID Qty: 540 RF: 3 loperamide 2 mg capsule 2 mg PO .COMPLEX RF: 0 allopurinol 300 mg Tablet 300 mg PO 3XWK RF: 0 Levemir FlexTouch U-100 Insuln 100 unit/mL (3 mL) Insulin Pen 9 units subcut HS RF: 0 pramipexole [Mirapex] 0.125 mg Tablet 0.125 mg PO HS RF: 0 pantoprazole 40 mg tablet,delayed release (DR/EC) 40 mg PO 3XWK RF: 0 tamsulosin 0.4 mg capsule 0.4 mg PO BID RF: 0 montelukast 10 mg tablet 10 mg PO HS RF: 0 azelastine 137 mcg (0.1 %) Aerosol,[place] 2 spray INTRANASAL Q12H PRN (Reason: Nasal Congestion) RF: 0 fluticasone propionate [Flonase Allergy Relief] 50 mcg/actuation [place],Suspension 2 spray INTRANASAL DAILY PRN (Reason: SEASONAL ALLERGIES) RF: 0 gabapentin 100 mg capsule 100 mg PO UD RF: 0 sirolimus 1 mg tablet 1 mg PO BID RF: 0 repaglinide 0.5 mg tablet 0.5 mg PO TID RF: 0 Premarin 0.625 mg Tablet 0.625 mg PO WK RF: 0 PNV cmb#95-ferrous fumarate-FA [] 28 mg iron- 800 mcg Tablet 1 tab PO DAILY RF: 0 polysaccharide iron complex [Ferrex 150] 150 mg iron Capsule 150 mg PO QAM RF: 0 [id number] [Fioricet] 50-300-40 mg Capsule 1 cap PO Q6H PRN (Reason: Migraine Headache) RF: 0 Discharge Problem: Fever Qualifiers: Fever type: unspecified Qualified Code(s): R50.9 - Fever, unspecified
[2020-04-13] MEDS: ACETAMINOPHEN 500 MG TAB PO STA ×2 (01:21→01:49)
[2020-04-13 01:32] LABS: Basophils # (auto) 0.01 K/uL (0-0.2); Basophils % (auto) 0.2 %; Eosinophils # (auto) 0.05 K/uL (0-0.5); Eosinophils % (auto) 0.8 %; Hematocrit (blood only) 38.4 % (37-47); Hemoglobin 12.7 g/dL (12.0-16.0); Immature Granulocytes # (auto) 0.02 K/uL (0.00-0.02); Immature Granulocytes % (auto) 0.3 %; Lymphocytes # (auto) 0.44 K/uL (1.2-3.4); Mean Corpuscular Hemoglobin 30.5 pg (25-34); Mean Corpuscular Hgb Conc 33.1 g/dL (32-36); Mean Corpuscular Volume 92.3 fL (80-100); Mean Platelet Volume 9.8 fL (7.4-10.4); Monocytes # (auto) 0.63 K/uL (0.11-0.59); Neutrophils # (auto) 5.16 K/uL (1.4-6.5); Neutrophils % (auto) 81.7 %; Platelet Count 144 K/uL (130-400); RDW Coefficient of Variation 13.3 % (11.5-14.5); RDW Standard Deviation 44.4 fL (36.4-46.3); Red Blood Count 4.16 M/uL (4.2-5.4); White Blood Count 6.31 K/uL (4.8-10.8)
[2020-04-13] MEDS ORDERED: ACETAMINOPHEN 1,000 MG/100 ML VIAL IV STA (01:37)
[2020-04-13 01:43] LABS: Appearance Urine Clear (Clear); Bacteria Urine Automated Negative (Negative); Bilirubin Urine Negative (Negative); Blood Urine Trace (Negative); Cast Urine Automated 0 /lpf (0-5); Color Urine Yellow; Epithelial Cell Urine Auto 20-30 /lpf (0-5); Glucose Urine UA Negative (Negative); Ketones Urine Negative (Negative); Leukocyte Esterase Urine Negative (Negative); Nitrite Urine Negative (Negative); Protein Urine 2+ (Negative); RBC Urine Automated 0-4 /hpf (0-4); Specific Gravity Urine 1.014 (1.000-1.030); Urobilinogen Urine Negative (Negative)
[2020-04-13 01:43] LABS: Prothrombin Time 10.5 Seconds (9.0-12.0)
[2020-04-13] MEDS ORDERED: DAPTOmycin 400 MG in SYRINGE 0 ML IV ONE (02:41)
[2020-04-13] MEDS ORDERED: PIPERACILL/TAZOBAC CONSULT ACTIVE PRN (02:41)
[2020-04-13] MEDS ORDERED: DAPTOMYCIN CONSULT ACTIVE PRN (02:41)
[2020-04-13] MEDS ORDERED: PIPERACILLIN/TAZOBACTAM 4.5 GM/120 ML BAG IV ONE (02:41)
[2020-04-13 02:50] LABS: Alanine Aminotransferase 32 U/L (12-78); Albumin Level 3.3 gm/dl (3.4-5.0); Alkaline Phosphatase 94 U/L (45-117); BUN Creatinine Ratio 17.2 (10-20); Bilirubin,Total 0.5 mg/dl (0.2-1); Blood Urea Nitrogen 27 mg/dl (7-18); Calcium 9.2 mg/dl (8.5-10.1); Carbon Dioxide 25 mmol/L (21-32); Chloride 106 mmol/L (98-107); Creatinine Clr Calc Pharmacy 38.2 ml/min; Est GFR (African American) 41.1; Est GFR (Non-African American) 35.5; Glucose 103 mg/dl (70-99); Lipase 271 U/L (73-393); Sodium 141 mmol/L (136-145); Total Protein 7.6 gm/dl (6.4-8.2); Troponin I < 0.015 ng/ml (0-0.045)
[2020-04-13 02:58] LABS: Potassium 3.8 mmol/L (3.5-5.1)
[2020-04-13 02:59] LABS: Aspartate Aminotransferase 34 U/L (15-37); Magnesium 1.7 mg/dl (1.8-2.4)
[2020-04-13 03:00] LABS: Bilirubin Direct < 0.1 mg/dl (0-0.2)
[2020-04-13] MEDS ORDERED: SODIUM CHLORIDE 0.9% 1000ML 1,000 ML IV SCH ×2 (03:15→06:34)
--- NOTE | 2020-04-13 04:44 | History & Physical Report ---
Date of Service April 13, 2020 Assessment & Plan (1) Fever: Tia Bowling is a 59 y/o female with a past medical history of renal transplant x2 (2000, 2018), chronically immunosuppressed, recurrent C. difficile colitis, HTN, DM 2, chronic anemia, restless leg, SBO, gout presents with fever. She notes that she had onset of 104 F fever tonight. Appears to have possible Pyelonephritis. - Immunosuppresed individual with fever, Zosyn and Daptomycin were initiated in ED along with blood cultures - Urine unimpressive for infection, UA cultures ordered - Clinically stable, no signs of compensation/decompensation. 1L Bolus given in ED. - Tyelnol 1gm IV given in ED which helped to resolve fever, follow clinically, Tylenol 1000mg PO q6H PRN ordered - Dilaudid 1mg IV ordered in ED, Morphine 2mg q3H IV on floor, de-escalate clinically - Zofran 4mg IV x1 in ED, continue with Zofran 4mg q6h PRN - Continue with home suppressive meds, Sirolimus 1mg PO BID, Myfortic 360mg PO BID, Prednisone 5mg PO daily. Possible complication from recent medication change to Sirolimus (?) - Nephrology consulted to help guide treatment plan as if this is infectious versus inflammatory or for signs of renal rejection. CT Abd/Pelvis w/o contrast Stranding adjacent to the right low quadrant transplant and bladder. (Pyelonephritis?) Areas of mild wall colonic wall thickening or underdistention and nonspecific fluid in small bowel loops. FENGI: Full liquids, if tolerate then advance, IVF NSS @ 100ml/hr x 1 bag on admission, Pantoprazole 40mg PO (home dose) DVT ppx: SCDs Dispo: Full admit Code: Full Code (2) Renal transplant recipient: as above (3) Acid reflux disease: c/w home PPI (4) Depression: c/w home Venlafaxine 50mg PO daily (5) Diabetes mellitus: ISS Goal: 100-140 CF: 45 Ratio 1:20 (6) Hyperlipidemia: allergy to statins (7) Hypertension: noted on hx, not sure if actually on any meds, Tamsulosin 0.4 PO BID is listed (8) Restless legs syndrome: c/w Mirapex 0.125mg PO qHS c/w requiip 0.25mg PO qHS (9) Immunosuppressed status: as noted above (10) Hypomagnesemia: 1.7 in ED treated with IV Mag x 1 bag. (11) Diarrhea: Areas of mild wall colonic wall thickening or underdistention and nonspecific fluid in small bowel loops noted on CT Abd/pelvis Cdiff ordered in ED and will continue order to allow testing to rule out Doesn't sound like cdiff infection but with prior history will help to rule out and guide appropriate antibiotic course No specific abdominal tenderness on my exam Follow how patient tolerates full liquid diet. (12) Nausea and vomiting: Zofran IV as noted above Aspiration precautions. History of Present Illness Chief Complaint: Fever Primary Care Provider: DO Tia Donahuey is a 59 y/o female with a past medical history of renal transplant x2 (2000, 2018), chronically immunosuppressed, recurrent C. difficile colitis, HTN, DM 2, chronic anemia, restless leg, SBO, gout presents with fever. She notes that she had onset of 104 F fever tonight. She notes she wasn't able to sleep from not feeling well generally and felt feverish. She notes she did not take any Tylenol and headed to [facility] ED. She notes she has been experiencing diarrhea with loose stools for months which she notes didn't have any associated abdominal pain. However, she notes she has RLQ/Right groin pain to which she is a difficult historian with explanation. This has been going on for months and wasn't noted to have worsened for this presentation. She notes talking with her physician about this and etiologies were considered related to hip arthritis. Patient was concerned that mesh was bulging or having complication of from hernia mesh with operation about 2 years ago. She denies any dysuria, malordorous urine, dyspnea, chest pains. She notes nausea and vomiting started today too, which was worsened with food. She notes last BM was this morning of loose stool. Upon chart review there was note that she recently transitioned off a biologic because of concern of hair loss and was transitioned to Sirolimus. She notes being on Sirolimus for about one month. She denies any travel, travel outside the home, denies contact with COVID sick individuals. Also recent Rx showed Dificid 200mg PO q12h 15 day course started on 03.17, which patient doesn't mention. Allergies Allergy/AdvReac Type Severity Reaction Status Date / Time Iodinated Contrast Media Allergy Severe Hx Kidney Verified 04/13/20 02:11 Transplant Kcgvgtn-Pyd-Jle Reductase Allergy Severe "PANCREATIT Verified 04/13/20 02:11 Inhibitor IS" sumatriptan Allergy Severe seizure Verified 04/13/20 02:11 hydrochlorothiazide Allergy Mild Unknown Verified 04/13/20 02:11 Sulfa (Sulfonamide Allergy Mild . Verified 04/13/20 02:11 Antibiotics) triamterene Allergy Mild Unknown Verified 04/13/20 02:11 atorvastatin Allergy Unknown ? Verified 04/13/20 02:11 doxycycline Allergy Unknown UNKNOWN Verified 04/13/20 02:11 levofloxacin Allergy Unknown joint pain Verified 04/13/20 02:11 adhesive AdvReac Unknown SKIN TEAR Verified 04/13/20 02:11 Cipro AdvReac Unknown FATIGUE Verified 01/20/18 21:00 ciprofloxacin AdvReac Unknown FATIGUE Verified 04/13/20 02:11 morphine AdvReac Unknown INEFFECTIVE Verified 04/13/20 02:11 Home Medications Home Medications Medication Instructions Recorded Confirmed Type Levemir FlexTouch U-100 Insuln 9 units SUBCUT HS 09/01/18 04/13/20 History allopurinol 300 mg PO 3XWK 09/01/18 04/13/20 History pramipexole [Mirapex] 0.125 mg PO HS 09/01/18 04/13/20 History montelukast 10 mg PO HS 03/26/19 04/13/20 History tamsulosin 0.4 mg PO BID 03/26/19 04/13/20 History prednisone 5 mg tablet 5 mg PO QAM #90 tab 05/02/19 04/13/20 Rx azelastine 2 spray INTRANASAL Q12H PRN 07/10/19 04/13/20 History fluticasone propionate [Flonase 2 spray INTRANASAL DAILY PRN 07/10/19 04/13/20 History Allergy Relief] venlafaxine 50 mg tablet 50 mg PO DAILY #90 tab 10/08/19 04/13/20 Rx loperamide 2 mg capsule 2 mg PO .COMPLEX cap 10/11/19 04/13/20 History pantoprazole 40 mg tablet,delayed 40 mg PO 3XWK 10/11/19 04/13/20 History release mycophenolate sodium 180 mg 360 mg PO BID #360 tab 11/04/19 04/13/20 Rx tablet,delayed release ropinirole 0.25 mg tablet 0.25 mg PO HS #90 tab 01/27/20 04/13/20 Rx fidaxomicin 200 mg tablet 200 mg PO Q12H #30 tab 03/16/20 04/13/20 Rx carvedilol 6.25 mg tablet 18.75 mg PO BID #540 tab 03/18/20 04/13/20 Rx PNV cmb#95-ferrous fumarate-FA 1 tab PO DAILY 04/13/20 04/13/20 History [] [id number]-[id number]-[id number] 1 cap PO Q6H PRN 04/13/20 04/13/20 History [Fioricet] conjugated estrogens [Premarin] 0.625 mg PO WK 04/13/20 04/13/20 History gabapentin 100 mg PO UD 04/13/20 04/13/20 History polysaccharide iron complex 150 mg PO QAM 04/13/20 04/13/20 History [Ferrex 150] repaglinide 0.5 mg PO TID 04/13/20 04/13/20 History sirolimus 1 mg PO BID 04/13/20 04/13/20 History Past Med/Surg History Medical History (Updated 04/13/20 @ 05:34 by John Jeffers MD) Abdominal pain (Resolved) Acute gout (Inactive) Acute pyelonephritis (Resolved) Acute renal failure Allergic rhinitis due to allergen (Inactive) CKD (chronic kidney disease) stage 4, GFR 15-29 ml/min Clostridium difficile diarrhea (Resolved) Dehydration (Acute) Diarrhea (Inactive) Diarrhea (Inactive) Diarrhea of presumed infectious origin Fever HTN (hypertension) (Chronic) Immunosuppressed status Intractable vomiting (Resolved) Migraine Migraine Pancreatitis Partial bowel obstruction (Resolved) SBO (small bowel obstruction) (Resolved) SBO (small bowel obstruction) (Resolved) Sepsis Sinus congestion (Inactive) SIRS (systemic inflammatory response syndrome) Unspecified asthma (Inactive) UTI (lower urinary tract infection) (Resolved 10/21/14) Surgical History (Updated 02/11/20 @ 11:31 by Eugene Roy MD) History of kidney transplant (Resolved) Kidney replaced by transplant (Inactive) Kidney transplant status (Inactive) Social History Smoking Status: Former smoker Smoking End Date: 1983; Second Hand Exposure: No; Do You Dip or Chew Tobacco: No; Tobacco Cessation Education Requested by Patient: No Hx Alcohol Use: Yes Alcohol type: beer Hx Substance Use: No Preferred Language: Brazilian Communication Ability: Effective Audit Analyst Required: No Beliefs That Will Affect Care: None marital status: Current Living Situation: Spouse Other Information That Helps Us Care for You: No Feels Safe at Home: Yes Safety Concerns: Feels Safe At This Time Review of Systems Review of Systems: All systems reviewed & are unremarkable except as noted in HPI & below Constitutional: + fever; no increased appetite Eyes: no diplopia and no spots in vision Ear, Nose, Mouth, Throat: no nasal congestion, no epistaxis and no sore throat Respiratory: no cough and no dyspnea Cardiovascular: no chest pain and no palpitations Gastrointestinal: as per Subjective / HPI, + abdominal pain, + nausea, + vomiting and + diarrhea/loose stools Genitourinary: no dysuria and no urinary frequency Musculoskeletal: no back pain and no neck pain Integumentary: no rash and no lesions Neurologic: no localized weakness and no numbness Physical Exam Constitutional: WD/WN, vitals as above cooperative and comfortable Eyes: PERRL, conjunctivae normal, anicteric sclerae ENMT: external ear and nose normal, oropharynx normal Neck: normal visual inspection and trachea midline Respiratory: normal respiratory effort, lungs clear to auscultation Cardiovascular: RRR, no murmur, no edema Gastrointestinal (Abdomen): Percussion/Palpation: abdomen soft; abdomen nontender, no guarding and abdomen not rigid bowel sounds diminished Musculoskeletal: Head/Neck/Chest: normocephalic and head atraumatic Skin: no rashes, warm and dry Neurologic: moves all extremities and awake Psychiatric: Orientation: alert and oriented x 3 Mood: + anxious mood Results & Data Results & Data ([facility]) Vital Signs (Past 12 Hours) Vital Signs Temp Pulse Resp BP Pulse Ox 04/13/20 03:36 37.1 C 04/13/20 03:00 70 14 117/62 04/13/20 02:00 78 17 157/79 H 97 04/13/20 01:53 75 18 162/78 H 98 04/13/20 00:20 38.1 C H 97 H 20 148/80 H 100 Laboratory Results Laboratory Results - last 24 hr 04/13/20 04/13/20 04/13/20 01:05 01:05 01:05 WBC 6.31 RBC 4.16 L Hgb 12.7 Hct 38.4 MCV 92.3 MCH 30.5 MCHC 33.1 RDW Std Deviation 44.4 RDW Coeff of Valentina 13.3 Plt Count 144 MPV 9.8 Immature Gran % (Auto) 0.3 Neut % (Auto) 81.7 Lymph % (Auto) 7.0 [place] % (Auto) 10.0 Eos % (Auto) 0.8 Baso % (Auto) 0.2 Neut # (Auto) 5.16 Lymph # (Auto) 0.44 L [place] # (Auto) 0.63 H Eos # (Auto) 0.05 Baso # (Auto) 0.01 Immature Gran # (Auto) 0.02 PT 10.5 INR 1.0 Sodium 141 Potassium 3.8 Chloride 106 Carbon Dioxide 25 Anion Gap 10.0 BUN 27 H Creatinine 1.56 H Est Cr Clr Drug Dosing 38.2 Est GFR ( Amer) 41.1 Est GFR (Non-Af Amer) 35.5 BUN/Creatinine Ratio 17.2 Glucose 103 H Lactate Calcium 9.2 Magnesium 1.7 L Total Bilirubin 0.5 Direct Bilirubin < 0.1 AST 34 ALT 32 Alkaline Phosphatase 94 Troponin I < 0.015 Total Protein 7.6 Albumin 3.3 L Lipase 271 Specimen Hemolysis Urine Color Urine Appearance Urine pH Ur Specific Taylor Urine Protein Urine Glucose (UA) Urine Ketones Urine Blood Urine Nitrite Urine Bilirubin Urine Urobilinogen Ur Leukocyte Esterase Urine WBC (Auto) Urine RBC (Auto) U Hyaline Cast (Auto) U Epithel Cells (Auto) Urine Bacteria (Auto) 04/13/20 04/13/20 01:20 01:42 WBC RBC Hgb Hct MCV MCH MCHC RDW Std Deviation RDW Coeff of Valentina Plt Count MPV Immature Gran % (Auto) Neut % (Auto) Lymph % (Auto) [place] % (Auto) Eos % (Auto) Baso % (Auto) Neut # (Auto) Lymph # (Auto) [place] # (Auto) Eos # (Auto) Baso # (Auto) Immature Gran # (Auto) PT INR Sodium Potassium Chloride Carbon Dioxide Anion Gap BUN Creatinine Est Cr Clr Drug Dosing Est GFR ( Amer) Est GFR (Non-Af Amer) BUN/Creatinine Ratio Glucose Lactate 0.2 L Calcium Magnesium Total Bilirubin Direct Bilirubin AST ALT Alkaline Phosphatase Troponin I Total Protein Albumin Lipase Specimen Hemolysis Urine Color Yellow Urine Appearance Clear Urine pH 7.0 Ur Specific Taylor 1.014 Urine Protein 2+ H Urine Glucose (UA) Negative Urine Ketones Negative Urine Blood Trace H Urine Nitrite Negative Urine Bilirubin Negative Urine Urobilinogen Negative Ur Leukocyte Esterase Negative Urine WBC (Auto) 1-5 Urine RBC (Auto) 0-4 U Hyaline Cast (Auto) 0 U Epithel Cells (Auto) 20-30 H Urine Bacteria (Auto) Negative Diagnostic Findings CXR NAD CT Abd/Pelvis w/o contrast Stranding adjacent to the right low quadrant transplant and bladder. Areas of mild wall colonic wall thickening or underdistention and nonspecific fluid in small bowel loops. Amongst other findings noted in report Medications Administered Sodium Chloride (Nss 1000ml) 1,000 mls @ 125 mls/hr IV .Q8H RADHA Stop: 05/13/20 03:14 Last Admin: 04/13/20 03:35 Dose: 125 mls/hr Documented by: [id number] Code Status & VTE Plan Code Status Full Code VTE Prophylaxis Plan VTE Prophylaxis will be ordered: Yes Supervising Physician Co-Signing Physician Notes Attending addendum: I have physically seen this patient, have supervised the medical residents activities, and agree with the H&P unless as otherwise noted. Assessment and Plan: Bilateral lower quadrant renal transplant/right lower quadrant transplant pyelonephritis- Placed on daptomycin IV and Zosyn IV Acetaminophen 1 g IV every 8 hours PRN mild pain or temperature. Morphine sulfate 2 mg IV every 3 hours PRN severe pain Continue usual medications: Sirolimus 1 mg p.o. twice daily, Myfortic 360 mg p.o. twice daily and prednisone 5 mg p.o. daily. May need stress dose hydrocortisone IV. Consult her encoding clerk Dr. Roy. Remainder of orders and notations as noted. Resident Activity Tracking Resident Involvement: Resident Care Provided Care Provided: [facility]
[2020-04-13] MEDS ORDERED: MoRPHine SULFATE 2 MG/ML CARP IV PRN (06:34)
[2020-04-13] MEDS ORDERED: GLUCOSE 10 TABS/TUBE PO PRN (06:34)
[2020-04-13] MEDS ORDERED: FLUTICASONE PROPIONATE NA SPR 16 GM BTL PRN (06:34)
[2020-04-13] MEDS ORDERED: GLUCAGON FOR INJ 1 MG VIAL SQ PRN (06:34)
[2020-04-13] MEDS ORDERED: CARBOHYDRATES FOR HYPOGLYCEMIA PO PRN (06:34)
[2020-04-13] MEDS ORDERED: DEXTROSE 50% 50 ML SYRINGE IV PRN (06:34)
[2020-04-13] MEDS ORDERED: MAGNESIUM HYDROXIDE SUSP 30 ML UDC PO PRN (06:34)
[2020-04-13] MEDS ORDERED: GLUCOSE 40% GEL 15 GM TUBE PO PRN (06:34)
[2020-04-13] MEDS ORDERED: MAGNESIUM SULFATE / D5W 1 GM/100 ML BAG IV ONE (06:34)
[2020-04-13] MEDS ORDERED: ALUMINUM/MAGNESIUM SUSP 30 ML UDC PO PRN (06:34)
[2020-04-13] MEDS ORDERED: ACETAMINOPHEN 500 MG TAB PO PRN (06:34)
--- NOTE | 2020-04-13 06:52 | XRay Report ---
XR chest 1V portable CLINICAL HISTORY: sepsis COMPARISON STUDY: Chest radiograph July 25, 2019. FINDINGS: Lung volumes are normal. Lungs are clear. There is no pneumothorax or pleural effusion. Car diac size is normal. Mediastinal contours are normal. There is no evidence for pulmonary edema. Incid ental note is made of peripherally calcified breast implants. IMPRESSION: No acute cardiopulmonary findings. ACT 112: Negative or not required by law. Electronically signed by: Benito Hunt M.D. 04/13/2020 6:51 AM
--- NOTE | 2020-04-13 08:12 | CT Scan Report ---
ABDOMEN AND PELVIS CT WITHOUT CONTRAST CT DOSE: 443.74 mGy.cm HISTORY: Acute generalized abdominal pain diffuse abdominal pain TECHNIQUE: Multiaxial CT images of the abdomen and pelvis were performed without contrast. A dose lo wering technique was utilized adhering to the principles of ALARA. COMPARISON STUDY: CT abdomen and pelvis 11/06/2019 FINDINGS: Lung bases are generally clear. Trace left pleural effusion. Mild bronchiectasis of the pos terior basal left lower lobe with adjacent linear subsegmental scarring/atelectasis. There is no pneu matosis or pneumoperitoneum. Imaged inferior cardiac chambers are unremarkable. Small pericardial eff usion. Spleen and adrenal glands are unremarkable. Moderate generalized pancreatic atrophy. Innumerab le hepatic cysts are redemonstrated. Limited evaluation of the solid abdominal organs without the use of IV contrast. Cholecystectomy. Probable dropped gallstones are noted adjacent to the posterior rig ht hepatic lobe. Dilation of the common bile duct is likely postsurgical. [place] kidneys are surgically absent. Transplanted bilateral pelvic kidneys. There is asymmetric mild right-sided perinephric stranding with mild stranding also noted along the anterior aspect of the ur inary bladder. No obstructive uropathy or ureteral calculi. Multiple pelvic basin phlebolith. Minimal fluid distention of the endocervical canal. No adnexal mass lesion. Calcific plaque of the abdominal aorta without aneurysm. No adenopathy. Tiny hiatal hernia. No bowel obstruction. Colonic diverticulosis without acute diverticulitis. Hyperd ense material within the colon suggests retained enteric contrast. The ileocecal valve is noted withi n the central abdomen. The appendix is not diagnostically visualized. Scattered nondilated fluid-fill ed loops of small bowel. Mild nonspecific subcutaneous stranding of the anterior abdominal wall. Atro phy of the rectus sheath. Degenerative changes of the spine, pelvis and hips. Transitional lumbosacra l anatomy. IMPRESSION: 1. Surgically absent [place] kidneys with bilateral transplanted kidneys within the pelvis. There is a symmetric stranding surrounding the right kidney with mild perivesicular stranding. Correlate with ur inalysis to exclude infectious etiology. 2. No ureteral calculi or obstructive uropathy. 3. No bowel obstruction or bowel wall thickening. 4. Colonic diverticulosis without acute diverticulitis. 5. Several scattered fluid-filled loops of small bowel, likely physiologic. A mild enteritis could ap pear similarly. 6. Trace left pleural effusion. 7. Additional findings as above. ACT 112: Negative or not required by law. The above report was generated using voice recognition software. It may contain grammatical, syntax o r spelling errors. Electronically signed by: Alberto Tillman M.D. 04/13/2020 8:11 AM
[2020-04-13] MEDS: carvediloL 12.5 MG TAB PO SCH ×2 (08:19→21:36)
[2020-04-13] MEDS: VENLAFAXINE HCL 50 MG TAB PO SCH (08:20)
[2020-04-13] MEDS: GABAPENTIN 100 MG CAP PO SCH ×2 (08:20→21:39)
[2020-04-13] MEDS: IRON POLYSACCHARIDE COMPLEX 150 MG CAPSULE PO SCH (08:20)
[2020-04-13] MEDS: SIROLIMUS 0.5 MG TABLET PO SCH ×2 (08:21→21:41)
[2020-04-13] MEDS: TAMSULOSIN HCL 0.4 MG CAP PO SCH ×2 (08:21→21:38)
[2020-04-13] MEDS: predniSONE 5 MG TAB PO SCH (08:21)
[2020-04-13] MEDS: INSULIN ASPART 100 UNITS/ML 3 ML PEN SC SCH ×4 (09:49→21:46)
[2020-04-13] MEDS: PIPERACILLIN/TAZOBACTAM 3.375 GM in DEXTROSE 5% 100 ML IV SCH ×2 (10:16→16:53)
--- NOTE | 2020-04-13 10:16 | Nephrology Consultation ---
Date of Consultation April 13, 2020 Assessment & Plan (1) Kidney transplant recipient: Mrs. Bowling 1 year and 3 months status post her second renal transplant. Her serum creatinine has been stable in the range of about 1.3 to 1.4 mg/Karen. She has a complex associated medical history. She does have mild hypertension which is controlled with carvedilol and mild diabetes for which she uses a low dose of Levemir insulin and Prandin on an as-needed basis. She also has a longstanding history of gastrointestinal issues. She has had a bowel resection at one time in the past. She has had an abdominal wall abscess in the past. She has had a ventral hernia repaired with mesh. She has had recurring episodes of C. difficile colitis over the course of the past few years and recently has been on Dificid. She is now admitted with fever, chills, abdominal discomfort and diarrhea. On CT scan, the appendix is not visualized. On exam she has right lower quadrant tenderness. Although her white count is not dramatically elevated, that could be because of her immunosuppression. Nonetheless I would be particularly concerned about the potential of acute appendicitis. Blood cultures are pending. If there is no other explanation for her current fever, I think that it might be necessary for her to have an abdominal exploration for the possibility of acute appendicitis. Given her previous surgical history, I think it might be more appropriate for that to be done at her transplant center. For now, I would continue her on her routine immunosuppressive medications. As noted above, I have been in contact with the transplant surgery team at [facility]. They will be getting back to me after they review some more of her records. I will keep the hospitalists informed of any recommendations that they may have. I would continue her on her IV fluids for now to maintain hydration and continue with her current antibiotics. (2) Renal insufficiency: (3) Diabetes mellitus: (4) Hypertension: (5) Diarrhea: (6) Fever: History of Present Illness Attending Physician: Mrs. Bowling is a 60-year-old woman currently residing in [facility]. She is well-known to me. I have been following her since about 2011. She was admitted to the hospital early this morning with symptoms of chills and fever. Apparently, she had a temperature as high as 104. Additionally, she has had a history of diarrheal stools over the course of the past month or so. She describes her stools as being black and somewhat "coffee ground." She has had no hematemesis. There has been no vomiting. She says that she has been eating relatively normally at least until now. She has a significant past medical history revolving around her history of an autosomal dominant polycystic kidney disease. She developed end-stage renal disease in 1998. At that time, she underwent a bilateral nephrectomy because of recurrent urinary tract infections. She was begun on maintenance dialysis. The nephrectomy was done in preparation of a probable kidney transplant. She did have a history of recurrent urinary tract infections. A complication of her hospitalization for nephrectomy was an apparent cerebrovascular accident from which she is fully recovered with no long-term sequela. When on dialysis, she was treated with peritoneal dialysis at home, at least initially. She was on dialysis for about 18 months prior to getting a kidney transplant from a living related donor, a cousin. 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 Her serum creatinine marc from a baseline of 1.5 to about 2.5. Her immunosuppression was changed at that time and she was switched to a combination of prednisone and sirolimus. She moved to [facility] several years ago because of her 's job change. Since that time, she has been followed at [facility] in [place] by their transplant team. In May 2011 she developed an episode of acute abdominal pain. She had evidence of a bowel obstruction at that time. She was transferred to [facility]. She underwent an apparent bowel resection and colostomy. Subsequently, her colostomy was taken down. Unfortunately, that surgery was complicated by the development of a wound infection as well as a urinary tract infection. Both required antibiotic therapy. As a consequence, she developed C. difficile colitis. That was treated with vancomycin. Nevertheless, her wound infection gradually cleared. She was managed at the wound center at [facility]. 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 Her baseline creatinine marc to a range of about 3.5 mg/Karen. Complications of her renal insufficiency included an anemia of chronic disease which was managed with Procrit. She could not tolerate oral iron and is gotten intermittent intravenous iron in the past. Additionally, she had secondary hyperparathyroidism. Additional complications have included diabetes mellitus and hypertension both of which have been well controlled. She was also having recurrent episodes of C. difficile colitis. She has had courses of vancomycin and Dificid. In fact, over the past month she has been using Dificid 250 mg twice daily without significant improvement in her diarrhea. In May 2017, she underwent a fecal transplant. Since that time, with each course of antibiotics for other reasons, she took Dificid as well. In December 2016, she had a ventral hernia repair. That was a consequence of prior surgeries and wound infections. The surgery was done at the [facility]. She has had a history of recurrent small bowel obstructions. The first occurred in 2010 and she has had recurring episodes since that time. Each is generally improved with conservative therapy. In November 2017, she suffered a fall at home. The fall occurred as a result of a syncopal episode. No etiology for her syncope was proven. She was seen in the emergency room here. A CT scan of her head showed an acute right zygomaticomaxillary complex fracture. That included fractures in the right zygomatic arch. A fracture of the lateral wall of the right orbit and right maxillary sinus fracture were noted as well. She had a diastases of the right zygomatic frontal suture. She was transferred to [facility]. She underwent maxillofacial surgery there. For a period of time, her jaw was wired and she relied on full liquids. She had some recurrent weakness of the left side of her face. While at [facility], she was placed on maintenance dialysis. Her serum creatinine, however, was still only in the range of the upper threes. Her dialysis access was through a tunneled dialysis catheter. Upon discharge, she was maintained on dialysis here. Her urine output was good and her serum creatinine fell. Dialysis was discontinued. She remained reasonably stable. However, on January 03, 2019, she did undergo a donor transplant at [facility]. She is done fairly well since that time. Her serum creatinine has fallen to as low as 1.2 but is usually in the range of about 1.3 to 1.4 mg/Karen. She is not had recurrent urinary tract infections. Her immunosuppression subsequent to her transplant was with mycophenolate sodium 360 mg twice daily, prednisone 5 mg daily and belatacept. She was certain that belatacept was contributing to her hair loss. Within recent months, belatacept was discontinued in favor of sirolimus 2 mg daily. She is uncertain as to wheth er or not her hair loss has improved. Other associated issues include a history of hypertension. She tries to follow a restricted sodium diet. Additionally she is currently taking carvedilol 18.75 mg twice daily. She does not take a diuretic. She has had no specific target organ symptoms of hypertension nor she had any symptoms of cardiovascular, cerebrovascular or peripheral vascular disease. Her blood pressure in our office has generally been fairly well controlled. She also has a history of hypercholesterolemia. She is not taking a statin at the current time. She has a history of insulin-dependent diabetes mellitus. She tries to minimize her dietary carbohydrate intake but admits that she does not do as good a job as she should. She is currently taking Levemir 7 units at bedtime and Prandin 5 mg before meals. She takes Prandin only if her blood sugar is 120 or greater. She had a recent hemoglobin A1c of 6.1%. She denies polyuria or polydipsia. She has no target organ symptoms of diarrhea. On her admission here, her her white blood cell count is not significantly elevated. However, it is mildly shifted to the left but that standard for her given her immunosuppression. She has had only a low-grade fever although she continues to have some shaking chills. She complains of a headache. A CT scan of her abdomen shows her surgically absent [place] kidneys with bilateral transplanted kidneys within the pelvis. She has some asymptomatic stranding around the right kidney with mild skip-vesicular stranding. She has no evidence of obstruction. There is no evidence of a bowel obstruction or bowel wall thickening. She does have diverticulosis as is common with polycystic kidney disease. However, there is no evidence of acute diverticulitis. She has a few fluid-filled loops of small bowel which are not felt to be of any significant consequence. She has a small left pleural effusion. Significantly, her appendix was not diagnostically visualized. I spoke with Dr. Flowers at [facility] to see if her appendix had ever been removed with any of the procedures done there. Apparently, it was not. An imaging study of her abdomen done after her transplant did suggest the possibility of a mild appendicitis. It was not surgically approached and presumably treated only with antibiotics. Her medications are as listed above and in her current home medication list that appears in her computerized record. She has multiple allergies including to iodine dyes, statins, sumatriptan and, hydrochlorothiazide, sulfa antibiotics, triamterene, doxycycline, levofloxacin, ciprofloxacin and adhesives. Her review of systems is significant and that she has been complaining of some right groin pain. She was not able to come into the office for examination since complaining of the pain. On telehealth visits, it certainly appeared that the pain was worse when she was weightbearing. It was in the right groin area. Allergies Allergy/AdvReac Type Severity Reaction Status Date / Time Iodinated Contrast Media Allergy Severe Hx Kidney Verified 04/13/20 02:11 Transplant Rmpkgja-[id number]-Jxj Reductase Allergy Severe "PANCREATIT Verified 04/13/20 02:11 Inhibitor IS" sumatriptan Allergy Severe seizure Verified 04/13/20 02:11 hydrochlorothiazide Allergy Mild Unknown Verified 04/13/20 02:11 Sulfa (Sulfonamide Allergy Mild . Verified 04/13/20 02:11 Antibiotics) triamterene Allergy Mild Unknown Verified 04/13/20 02:11 atorvastatin Allergy Unknown ? Verified 04/13/20 02:11 doxycycline Allergy Unknown UNKNOWN Verified 04/13/20 02:11 levofloxacin Allergy Unknown joint pain Verified 04/13/20 02:11 adhesive AdvReac Unknown SKIN TEAR Verified 04/13/20 02:11 Cipro AdvReac Unknown FATIGUE Verified 01/20/18 21:00 ciprofloxacin AdvReac Unknown FATIGUE Verified 04/13/20 02:11 morphine AdvReac Unknown INEFFECTIVE Verified 04/13/20 02:11 Home Medications Home Medications Medication Instructions Recorded Confirmed Type Levemir FlexTouch U-100 Insuln 9 units SUBCUT HS 09/01/18 04/13/20 History allopurinol 300 mg PO 3XWK 09/01/18 04/13/20 History pramipexole [Mirapex] 0.125 mg PO HS 09/01/18 04/13/20 History montelukast 10 mg PO HS 03/26/19 04/13/20 History tamsulosin 0.4 mg PO BID 03/26/19 04/13/20 History prednisone 5 mg tablet 5 mg PO QAM #90 tab 05/02/19 04/13/20 Rx azelastine 2 spray INTRANASAL Q12H PRN 07/10/19 04/13/20 History fluticasone propionate [Flonase 2 spray INTRANASAL DAILY PRN 07/10/19 04/13/20 History Allergy Relief] venlafaxine 50 mg tablet 50 mg PO DAILY #90 tab 10/08/19 04/13/20 Rx loperamide 2 mg capsule 2 mg PO .COMPLEX cap 10/11/19 04/13/20 History pantoprazole 40 mg tablet,delayed 40 mg PO 3XWK 10/11/19 04/13/20 History release mycophenolate sodium 180 mg 360 mg PO BID #360 tab 11/04/19 04/13/20 Rx tablet,delayed release ropinirole 0.25 mg tablet 0.25 mg PO HS #90 tab 01/27/20 04/13/20 Rx fidaxomicin 200 mg tablet 200 mg PO Q12H #30 tab 03/16/20 04/13/20 Rx carvedilol 6.25 mg tablet 18.75 mg PO BID #540 tab 03/18/20 04/13/20 Rx PNV cmb#95-ferrous fumarate-FA 1 tab PO DAILY 04/13/20 04/13/20 History [] vcmeixlugq-lsvpcujxctcbx-dmxr 1 cap PO Q6H PRN 04/13/20 04/13/20 History [Fioricet] conjugated estrogens [Premarin] 0.625 mg PO WK 04/13/20 04/13/20 History gabapentin 100 mg PO UD 04/13/20 04/13/20 History polysaccharide iron complex 150 mg PO QAM 04/13/20 04/13/20 History [Ferrex 150] repaglinide 0.5 mg PO TID 04/13/20 04/13/20 History sirolimus 1 mg PO BID 04/13/20 04/13/20 History Patient History Medical History (Updated 04/13/20 @ 05:34 by John Jeffers MD) Abdominal pain (Resolved) Acute gout (Inactive) Acute pyelonephritis (Resolved) Acute renal failure Allergic rhinitis due to allergen (Inactive) CKD (chronic kidney disease) stage 4, GFR 15-29 ml/min Clostridium difficile diarrhea (Resolved) Dehydration (Acute) Diarrhea (Inactive) Diarrhea (Inactive) Diarrhea of presumed infectious origin Fever HTN (hypertension) (Chronic) Immunosuppressed status Intractable vomiting (Resolved) Migraine Migraine Pancreatitis Partial bowel obstruction (Resolved) SBO (small bowel obstruction) (Resolved) SBO (small bowel obstruction) (Resolved) Sepsis Sinus congestion (Inactive) SIRS (systemic inflammatory response syndrome) Unspecified asthma (Inactive) UTI (lower urinary tract infection) (Resolved 10/21/14) Surgical History (Updated 02/11/20 @ 11:31 by Eugene Roy MD) History of kidney transplant (Resolved) Kidney replaced by transplant (Inactive) Kidney transplant status (Inactive) Social History Preferred Language: Guyanese Communication Ability: Effective Complex Manager Required: No Beliefs That Will Affect Care: None marital status: Current Living Situation: Spouse Other Information That Helps Us Care for You: No Feels Safe at Home: Yes Safety Concerns: Feels Safe At This Time Smoking Status: Former smoker Tobacco Type: cigarettes ; Do You Dip or Chew Tobacco: No ; Smoking End Date: 1983 ; Second Hand Exposure: No ; Tobacco Cessation Education Requested by Patient: No Hx Alcohol Use: Yes Alcohol type: beer Hx Substance Use: No Physical Exam Physical Exam: On physical examination, Mrs. Bowling appears a somewhat of a chronically ill and acutely ill woman of about her stated age of 60. She was complaining of a headache. Her voice seemed somewhat nasal. Her blood pressure was 131/61 supine. Her pulse 78 and regular, respiratory rate 20 and nonlabored. Her temperature was 37.3 C. Her oxygen saturation was 99% on room air. She was awake, alert, oriented and appropriate. Her skin showed normal skin turgor. There was no rash or infiltrative skin disease. She has multiple scars from prior surgical procedures including a right lower quadrant scar from her kidney transplant, a left lower quadrant scar as well as multiple other abdominal scars from prior surgeries noted above. There was no palpable lymphadenopathy. Her head is normal. However, she does have some tenderness over both maxillary sinuses and frontal sinuses. Eyes are grossly normal. There is no conjunctival icterus. Pupils are round, equal and reactive to light. I did not examine the fundi. Ears, nose, mouth and throat are unremarkable. Her oral mucous membranes are moist. Her neck is supple. She has no jugular venous distention or carotid bruit. Her chest is clear to auscultation. Cardiac exam shows a regular rhythm. There are no murmurs or gallops. Her abdomen shows her multiple scars. She is tender in the right lower quadrant but no definite guarding or rebound are noted. Her renal graft is palpable in the right lower quadrant. She has a good bruit over the graft. She has a fullness in the left lower quadrant without tenderness. Her [place] kidneys were not felt. They are surgically absent. I do not feel her liver or spleen. Extremities show no cyanosis, clubbing or peripheral edema. She has some chronic skin changes on the distal lower extremities. Peripheral pulses are intact. Logic exam shows no lateralizing changes. Results & Data Vital Signs (Past 12 Hours) Vital Signs Temp Pulse Pulse Resp BP BP BP 04/13/20 07:56 37.3 C 78 20 131/61 04/13/20 06:15 37.1 C 64 18 135/72 04/13/20 05:51 37 C 55 L 16 102/45 L 04/13/20 05:01 58 L 17 04/13/20 05:00 64 16 109/44 L 04/13/20 04:01 62 15 04/13/20 04:00 72 12 124/61 04/13/20 03:36 37.1 C 04/13/20 03:00 70 14 117/62 04/13/20 02:00 78 17 157/79 H 04/13/20 01:53 75 18 162/78 H 04/13/20 00:20 38.1 C H 97 H 20 148/80 H Pulse Ox 04/13/20 07:56 99 04/13/20 06:15 94 04/13/20 05:51 96 04/13/20 05:01 04/13/20 05:00 95 04/13/20 04:01 04/13/20 04:00 04/13/20 03:36 04/13/20 03:00 04/13/20 02:00 97 04/13/20 01:53 98 04/13/20 00:20 100 Laboratory Results Laboratory Results - last 24 hr 04/13/20 04/13/20 04/13/20 01:05 01:05 01:05 WBC 6.31 RBC 4.16 L Hgb 12.7 Hct 38.4 MCV 92.3 MCH 30.5 MCHC 33.1 RDW Std Deviation 44.4 RDW Coeff of Valentina 13.3 Plt Count 144 MPV 9.8 Immature Gran % (Auto) 0.3 Neut % (Auto) 81.7 Lymph % (Auto) 7.0 Blair % (Auto) 10.0 Eos % (Auto) 0.8 Baso % (Auto) 0.2 Neut # (Auto) 5.16 Lymph # (Auto) 0.44 L Blair # (Auto) 0.63 H Eos # (Auto) 0.05 Baso # (Auto) 0.01 Immature Gran # (Auto) 0.02 PT 10.5 INR 1.0 Sodium 141 Potassium 3.8 Chloride 106 Carbon Dioxide 25 Anion Gap 10.0 BUN 27 H Creatinine 1.56 H Est Cr Clr Drug Dosing 38.2 Est GFR ( Amer) 41.1 Est GFR (Non-Af Amer) 35.5 BUN/Creatinine Ratio 17.2 Glucose 103 H POC Glucose Lactate Calcium 9.2 Magnesium 1.7 L Total Bilirubin 0.5 Direct Bilirubin < 0.1 AST 34 ALT 32 Alkaline Phosphatase 94 Troponin I < 0.015 Total Protein 7.6 Albumin 3.3 L Lipase 271 Specimen Hemolysis Urine Color Urine Appearance Urine pH Ur Specific Fox Urine Protein Urine Glucose (UA) Urine Ketones Urine Blood Urine Nitrite Urine Bilirubin Urine Urobilinogen Ur Leukocyte Esterase Urine WBC (Auto) Urine RBC (Auto) U Hyaline Cast (Auto) U Epithel Cells (Auto) Urine Bacteria (Auto) 04/13/20 04/13/20 04/13/20 01:20 01:42 07:12 WBC RBC Hgb Hct MCV MCH MCHC RDW Std Deviation RDW Coeff of Valentina Plt Count MPV Immature Gran % (Auto) Neut % (Auto) Lymph % (Auto) Blair % (Auto) Eos % (Auto) Baso % (Auto) Neut # (Auto) Lymph # (Auto) Blair # (Auto) Eos # (Auto) Baso # (Auto) Immature Gran # (Auto) PT INR Sodium Potassium Chloride Carbon Dioxide Anion Gap BUN Creatinine Est Cr Clr Drug Dosing Est GFR ( Amer) Est GFR (Non-Af Amer) BUN/Creatinine Ratio Glucose POC Glucose 106 H Lactate 0.2 L Calcium Magnesium Total Bilirubin Direct Bilirubin AST ALT Alkaline Phosphatase Troponin I Total Protein Albumin Lipase Specimen Hemolysis Urine Color Yellow Urine Appearance Clear Urine pH 7.0 Ur Specific Fox 1.014 Urine Protein 2+ H Urine Glucose (UA) Negative Urine Ketones Negative Urine Blood Trace H Urine Nitrite Negative Urine Bilirubin Negative Urine Urobilinogen Negative Ur Leukocyte Esterase Negative Urine WBC (Auto) 1-5 Urine RBC (Auto) 0-4 U Hyaline Cast (Auto) 0 U Epithel Cells (Auto) 20-30 H Urine Bacteria (Auto) Negative PG Care Time/CCT Total # of Minutes Spent Total Time Spent with Patient: Total time spent is greater than 50% in coordination of care (as documented) at patient's floor/unit and/or counseling patient: 75 minutes. Coding Level of Care Code 03133 Inpt Consult Level 5 Diagnoses Kidney transplant recipient Z94.0 Renal insufficiency N28.9 Diabetes mellitus E11.9 Hypertension I10 Diarrhea R19.7 Fever R50.9
[2020-04-13] MEDS ORDERED: MoRPHine SULFATE 4 MG/ML 1 ML CARP\\VIAL IV PRN (10:42)
[2020-04-13] MEDS: HYDROmorphone INJ 0.5 MG/0.5 ML SYR IV PRN ×3 (12:15→21:35)
[2020-04-13] MEDS: MYCOPHENOLATE SODIUM 180 MG TAB PO SCH ×3 (14:39→21:41)
--- NOTE | 2020-04-13 16:28 | History & Physical Bridge Note ---
Date of Service April 13, 2020 History & Physical Bridge Note I have examined the patient, reviewed the History & Physical and in the interval since the performance of the History & Physical I have noted the following changes of clinical significance: patient feeling a little better with fluids, IV antibiotics d/w Dr. Roy, he had concerns about appendicitis, patient could not recall if she had it out in the past, he called [facility], they confirmed appendix was removed patient reports one month of diarrhea, now several days of worsening diarrhea, any time she eats she had diarrhea 30 minutes afterwards last night she vomited which was new she says that her stools are very dark, almost black, like coffee grounds, she says she never had this issue before however, on labs her hb is exactly the same as before at 12.6, no dark stools today or since admission we discussed asking GI for consultation, she normally follows with GI service down in [place] area asked if she had seen provider here, she thinks she saw [facility] a few years ago, she would prefer to go with [facility] for now consult placed C diff negative, stool culture sent
[2020-04-13] MEDS: SODIUM CHLORIDE 0.9% 1000ML 1,000 ML IV SCH (16:44)
[2020-04-13] MEDS: LAVAGE SOLUTION 4000ML PO SCH (18:39)
[2020-04-13] MEDS: ONDANSETRON INJ 2 MG/ML 2 ML VIAL IV PRN (21:34)
[2020-04-13] MEDS: PRAMIPEXOLE DIHYDROCHLO 0.25 MG TAB PO SCH (21:38)
[2020-04-13] MEDS: PANTOprazole 40 MG TAB PO SCH (21:40)
[2020-04-13] MEDS: MONTELUKAST SODIUM 10 MG TABLET PO SCH (21:40)
[2020-04-13] MEDS: ROPINIROLE HCL 0.25 MG TABLET PO SCH (21:40)
[2020-04-14] MEDS ORDERED: BUTALBITAL/ACETAMIN/CAFFEINE TAB PO STA (01:01)
[2020-04-14] MEDS: PIPERACILLIN/TAZOBACTAM 3.375 GM in DEXTROSE 5% 100 ML IV SCH ×2 (01:15→11:28)
--- NOTE | 2020-04-14 03:39 | Billing Data ---
Date of Service April 14, 2020 Coding Level of Care Code 58396 Initial Inpt Care Lvl 3
[2020-04-14] MEDS: LAVAGE SOLUTION 4000ML PO SCH (03:55)
[2020-04-14] MEDS ORDERED: DAPTOmycin 400 MG in SYRINGE 0 ML IV SCH (04:00)
--- NOTE | 2020-04-14 05:44 | Communication Note ---
Date of Service: April 14, 2020 Appox 1am, patient strong advocate for home medication Friorcet 1tab q6h PRN for tension headaches. Will order one time dose. Approx 4am, notified by nursing, Ms. Bowling was able to tolerate half the jug of bowel prep by midnight but then refused to continue oral intake. Nursing reports incontinent of loose/watery stool with consistency being mostly liquid. Patient also concerned that not currently on Dificid, which she normally takes at home. This was reviewed on admission to be a 15 day course written on 03/17/20. C diff testing was negative here yesterday. There is no indication for Dificid.
[2020-04-14 07:19] LABS: ALC (manual) 0.32 K/uL (1.2-3.4); ANC (manual) 3.56 K/uL (1.4-6.5); Eosinophils # (manual) 0.08 K/uL (0-0.5); Eosinophils % (manual) 1.7 %; Hematocrit (blood only) 34.1 % (37-47); Hemoglobin 11.2 g/dL (12.0-16.0); Lymphocytes # (manual) 0.32 K/uL (1.2-3.4); Mean Corpuscular Hemoglobin 30.5 pg (25-34); Mean Corpuscular Hgb Conc 32.8 g/dL (32-36); Mean Corpuscular Volume 92.9 fL (80-100); Mean Platelet Volume 9.9 fL (7.4-10.4); Monocytes # (manual) 0.59 K/uL (0.11-0.59); Neutrophils # (manual) 3.56 K/uL (1.4-6.5); Neutrophils % (manual) 78.3 %; Platelet Count 138 K/uL (130-400); RBC Morphology Unremarkable; RDW Coefficient of Variation 13.6 % (11.5-14.5); RDW Standard Deviation 46.5 fL (36.4-46.3); Red Blood Count 3.67 M/uL (4.2-5.4); White Blood Count 4.55 K/uL (4.8-10.8)
[2020-04-14 07:24] LABS: BUN Creatinine Ratio 13.2 (10-20); Calcium 8.6 mg/dl (8.5-10.1); Creatinine Clr Calc Pharmacy 46.2 ml/min; Est GFR (African American) 51.8; Est GFR (Non-African American) 44.7; Magnesium 2.2 mg/dl (1.8-2.4); Potassium 3.3 mmol/L (3.5-5.1)
[2020-04-14] MEDS: POTASSIUM CHLORIDE / WTR 10 MEQ/100 ML PLCT IV SCH ×2 (08:28→09:56)
[2020-04-14] MEDS: SODIUM CHLORIDE 0.9% 1000ML 1,000 ML IV SCH ×2 (08:28→23:15)
[2020-04-14] MEDS: HYDROmorphone INJ 0.5 MG/0.5 ML SYR IV PRN ×2 (08:28→22:19)
[2020-04-14] MEDS: INSULIN ASPART 100 UNITS/ML 3 ML PEN SC SCH ×4 (08:29→21:07)
[2020-04-14] MEDS: carvediloL 12.5 MG TAB PO SCH ×2 (09:00→20:50)
[2020-04-14] MEDS: MYCOPHENOLATE SODIUM 180 MG TAB PO SCH ×2 (09:00→20:49)
[2020-04-14] MEDS: predniSONE 5 MG TAB PO SCH (09:00)
[2020-04-14] MEDS: GABAPENTIN 100 MG CAP PO SCH ×2 (09:00→20:49)
[2020-04-14] MEDS: VENLAFAXINE HCL 50 MG TAB PO SCH (09:00)
[2020-04-14] MEDS: TAMSULOSIN HCL 0.4 MG CAP PO SCH ×2 (09:00→20:49)
[2020-04-14] MEDS: IRON POLYSACCHARIDE COMPLEX 150 MG CAPSULE PO SCH (09:00)
--- NOTE | 2020-04-14 09:53 | Gastrointestinal Consultation ---
Date of Consultation April 14, 2020 Assessment & Plan (1) Diarrhea: 1. Celiac profile. 2. Proceed with colonoscopy for further evaluation today with Dr. Kirk. 3. Additional recommendations will be made pending results of testing. Thank you for allowing us to participate in the care of this pleasant patient. If you have any questions or concerns, please do not hesitate to contact us. Supervising Physician Co-Signing Physician Notes I personally evaluated the patient and agree with the findings as documented by ELZA Gary Exam: abd: soft, nt, nd, no HSM colonoscopy to further evaluate, obtain celiac serologies. History of Present Illness Reason for Consultation: Chronic diarrhea Requesting Physician: Dr. Langley Attending Physician: John Langley, DO History of Present Illness I had the pleasure of seeing Tia Bowling at the bedside today. As you know, the patient is a 60 y.o being evaluated for chronic diarrhea which has been ongoing for years but worsening over the past month. The stool character is described as black, "coffee-ground like" and watery. Patient reports a stool frequency of 4-5 times per day. Reports associated symptoms of tenesmus, urgency, bloating, weight loss, FI, and fatigue. +FERRIS. Denies skin rashes and urinary symptoms. The symptoms are associated with meals. Tolerating fluids. No metformin use. Symptoms are improved by Imodium. Risk factors: immunocompromise, chronic Prednisone use, but no NSAID use. Family history is negative for GI malignancy and IBD. She does carry a sororal history of Celiac sprue. Medical records reviewed and previous work up for symptoms includes: CT a/p without contrast enhancement with questionable enteritis. She was not anemic on admission but did drop slightly since admission after fluid resuscitation. Allergies Allergy/AdvReac Type Severity Reaction Status Date / Time Iodinated Contrast Media Allergy Severe Hx Kidney Verified 04/13/20 02:11 Transplant Xtazygu-Vzi-Sot Reductase Allergy Severe "PANCREATIT Verified 04/13/20 02:11 Inhibitor IS" sumatriptan Allergy Severe seizure Verified 04/13/20 02:11 hydrochlorothiazide Allergy Mild Unknown Verified 04/13/20 02:11 Sulfa (Sulfonamide Allergy Mild . Verified 04/13/20 02:11 Antibiotics) triamterene Allergy Mild Unknown Verified 04/13/20 02:11 atorvastatin Allergy Unknown ? Verified 04/13/20 02:11 doxycycline Allergy Unknown UNKNOWN Verified 04/13/20 02:11 levofloxacin Allergy Unknown joint pain Verified 04/13/20 02:11 adhesive AdvReac Unknown SKIN TEAR Verified 04/13/20 02:11 Cipro AdvReac Unknown FATIGUE Verified 01/20/18 21:00 ciprofloxacin AdvReac Unknown FATIGUE Verified 04/13/20 02:11 morphine AdvReac Unknown INEFFECTIVE Verified 04/13/20 02:11 Home Medications Home Medications Medication Instructions Recorded Confirmed Type Levemir FlexTouch U-100 Insuln 9 units SUBCUT HS 09/01/18 04/13/20 History allopurinol 300 mg PO 3XWK 09/01/18 04/13/20 History pramipexole [Mirapex] 0.125 mg PO HS 09/01/18 04/13/20 History montelukast 10 mg PO HS 03/26/19 04/13/20 History tamsulosin 0.4 mg PO BID 03/26/19 04/13/20 History prednisone 5 mg tablet 5 mg PO QAM #90 tab 05/02/19 04/13/20 Rx azelastine 2 spray INTRANASAL Q12H PRN 07/10/19 04/13/20 History fluticasone propionate [Flonase 2 spray INTRANASAL DAILY PRN 07/10/19 04/13/20 History Allergy Relief] venlafaxine 50 mg tablet 50 mg PO DAILY #90 tab 10/08/19 04/13/20 Rx loperamide 2 mg capsule 2 mg PO .COMPLEX cap 10/11/19 04/13/20 History pantoprazole 40 mg tablet,delayed 40 mg PO 3XWK 10/11/19 04/13/20 History release mycophenolate sodium 180 mg 360 mg PO BID #360 tab 11/04/19 04/13/20 Rx tablet,delayed release ropinirole 0.25 mg tablet 0.25 mg PO HS #90 tab 01/27/20 04/13/20 Rx fidaxomicin 200 mg tablet 200 mg PO Q12H #30 tab 03/16/20 04/13/20 Rx carvedilol 6.25 mg tablet 18.75 mg PO BID #540 tab 03/18/20 04/13/20 Rx PNV cmb#95-ferrous fumarate-FA 1 tab PO DAILY 04/13/20 04/13/20 History [] [id number]-mkrkbryfcietj-njdi 1 cap PO Q6H PRN 04/13/20 04/13/20 History [Fioricet] conjugated estrogens [Premarin] 0.625 mg PO WK 04/13/20 04/13/20 History gabapentin 100 mg PO UD 04/13/20 04/13/20 History polysaccharide iron complex 150 mg PO QAM 04/13/20 04/13/20 History [Ferrex 150] repaglinide 0.5 mg PO TID 04/13/20 04/13/20 History sirolimus 1 mg PO BID 04/13/20 04/13/20 History Patient History Medical History (Updated 04/14/20 @ 15:34 by Karl Hinkle MD) Abdominal pain (Resolved) Acute gout (Inactive) Acute pyelonephritis (Resolved) Acute renal failure Allergic rhinitis due to allergen (Inactive) CKD (chronic kidney disease) stage 4, GFR 15-29 ml/min Clostridium difficile diarrhea (Resolved) Dehydration (Acute) Diarrhea of presumed infectious origin Fever HTN (hypertension) (Chronic) Immunosuppressed status Intractable vomiting (Resolved) Migraine Pancreatitis SBO (small bowel obstruction) (Resolved) Sepsis Sinus congestion (Inactive) SIRS (systemic inflammatory response syndrome) Unspecified asthma (Inactive) UTI (lower urinary tract infection) (Resolved 10/21/14) Surgical History (Updated 04/14/20 @ 15:44 by Karl Hinkle MD) History of hernia surgery Hx of appendectomy Hx of cholecystectomy Kidney replaced by transplant (Inactive) x2. most recent 1 year ago Family History Other Family history non-contributory Social History Smoking Status: Former smoker Second Hand Exposure: No; Hx Alcohol Use: Yes Alcohol type: beer Hx Substance Use: No Preferred Language: Bruneian Communication Ability: Effective Hose Tester Required: No Beliefs That Will Affect Care: None marital status: Current Living Situation: Spouse Feels Safe at Home: Yes Review of Systems Review of Systems: All systems reviewed & are unremarkable except as noted in HPI & below Physical Exam Constitutional: WD/WN, vitals as above Eyes: EOM intact bilaterally Neck: normal appearance Respiratory: normal respiratory effort, lungs clear to auscultation Cardiovascular: Rate/Rhythm: regular rate and regular rhythm Heart Sounds: no gallop and no murmur Gastrointestinal (Abdomen): normal bowel sounds, soft, nontender, no hepatosplenomegaly Inspection/Auscultation: abdomen not distended Musculoskeletal: Extremities: no cyanosis no lower extremity edema Skin: no rashes, warm and dry Neurologic: moves all extremities Psychiatric: A+Ox3, euthymic affect Results & Data ([facility]) Vital Signs (Past 12 Hours) Vital Signs Temp Pulse Resp BP Pulse Ox 04/14/20 07:21 37.0 C 67 18 141/69 H 96 04/14/20 03:18 37.1 C 70 16 119/55 L 97 04/13/20 23:22 36.9 C 56 L 18 111/53 L 96 Laboratory Results Abnormal lab results 04/13/20 04/13/20 04/13/20 Range/Units 11:17 16:29 20:44 WBC (4.8-10.8) K/uL RBC (4.2-5.4) M/uL Hgb (12.0-16.0) g/dL Hct (37-47) % RDW Std Deviation (36.4-46.3) fL Lymphocytes # (Manual) (1.2-3.4) K/uL Total Abs Lymphocytes (1.2-3.4) K/uL Potassium (3.5-5.1) mmol/L Chloride (98-107) mmol/L Creatinine (0.6-1.2) mg/dl POC Glucose 143 H 159 H 117 H (70-99) mg/dl 04/14/20 04/14/20 04/14/20 Range/Units 06:12 06:12 07:19 WBC 4.55 L (4.8-10.8) K/uL RBC 3.67 L (4.2-5.4) M/uL Hgb 11.2 L (12.0-16.0) g/dL Hct 34.1 L (37-47) % RDW Std Deviation 46.5 H (36.4-46.3) fL Lymphocytes # (Manual) 0.32 L (1.2-3.4) K/uL Total Abs Lymphocytes 0.32 L (1.2-3.4) K/uL Potassium 3.3 L (3.5-5.1) mmol/L Chloride 110 H (98-107) mmol/L Creatinine 1.29 H (0.6-1.2) mg/dl POC Glucose 103 H (70-99) mg/dl PG Care Time/CCT Total # of Minutes Spent Total Time Spent with Patient: Total time spent is greater than 50% in coordination of care (as documented) at patient's floor/unit and/or counseling patient: Coding Level of Care Code 42826 Inpt Consult Level 4 Diagnoses Diarrhea R19.7
[2020-04-14] MEDS: SIROLIMUS 0.5 MG TABLET PO SCH ×2 (10:00→20:49)
--- NOTE | 2020-04-14 10:00 | Nephrology Progress Note ---
Date of Service April 14, 2020 Assessment & Plan (1) Polycystic renal disease: (2) Kidney transplant recipient: Mrs. Bowling appears significantly improved. It is notable that she did have an incidental appendectomy in 2012 during surgery for another issue. She believes it is when she had her abdominal mesh placed because of a ventral hernia. Nonetheless, that puts the rest of the idea that her symptom complex may be related to acute appendicitis. She is scheduled for a colonoscopy today. Because of a family history of celiac sprue, apparently an EGD is being considered as well. Stool cultures and blood cultures remain pending. No definite organism has grown out to date. She is apparently C. difficile negative. For now, would continue with her routine immunosuppression. Based on previous recommendations she should be continuing with Dificid as long as she is on antibiotics. Her renal function is optimal. I would continue to maintain IV fluids but the rate can be slowed when she starts to eat normally. No other immediate recommendations. I will continue to follow her with you. (3) Immunocompromised state: (4) Fever: (5) Diarrhea: Admission and Anticipated Discharge Date Admission Date: April 13, 2020 Subjective Mrs. Bowling is feeling somewhat better this morning. However, she does point out that she had a difficult night. She is being prepped for colonoscopy and did have multiple loose stools last night with some incontinence. She also had a migraine headache to make her night even more uncomfortable. Her headache has been improved, at least for now, with Dilaudid. She has had no shaking chills or fevers. She has some abdominal soreness but no reji abdominal pain. She has no symptoms of uremia or volume overload. Her blood pressure has been acceptable. Physical Exam Physical Exam: On physical examination, she appears significantly better. Her blood pressure was 141/69. Her pulse 67 and regular. Respiratory rate is 18 and her pulse ox 96% on room air. She is afebrile (37.0). Her skin shows normal skin turgor. She has no rash or infiltrative skin disease. She has multiple abdominal scars from prior procedures including a right lower quadrant scar from her kidney transplant. She has no palpable lymphadenopathy. Her head is grossly normal. Eyes are grossly normal. The ocular fundi were not examined. Ears, nose, mouth and throat are all unremarkable. Her oral mucous membranes are moist. Her neck is supple. There is no jugular venous distention, carotid bruit or thyromegaly. Her chest is clear to auscultation. She has no wheezes, rales or rhonchi. Cardiac exam shows a regular rhythm. She has an atrial gallop or split S1. S2 is normal. She has a soft systolic murmur at the base radiating toward the neck. Her abdomen is not particularly tender today even in the right lower quadrant. She has no obvious organomegaly or mass although her kidney transplant is palpable in the right lower quadrant and she has a bruit over the transplant. Her bowel sounds are normal. Extremities show no cyanosis, clubbing or peripheral edema. Peripheral pulses are intact. Her neurologic exam is grossly normal. Results & Data ([facility]) Vital Signs (Past 12 Hours) Vital Signs Temp Pulse Resp BP Pulse Ox 04/14/20 07: 37.0 C 67 18 141/69 H 96 04/14/20 03:18 37.1 C 70 16 119/55 L 97 04/13/20 23:22 36.9 C 56 L 18 111/53 L 96 Laboratory Results Laboratory Results - last 24 hr 04/13/20 04/13/20 04/13/20 11:17 16:29 20:44 WBC RBC Hgb Hct MCV MCH MCHC RDW Std Deviation RDW Coeff of Valentina Plt Count MPV Neutrophils % (Manual) Lymphocytes % (Manual) Monocytes % (Manual) Eosinophils % (Manual) Neutrophils # (Manual) Total Absolute Neuts Lymphocytes # (Manual) Total Abs Lymphocytes Monocytes # (Manual) Eosinophils # (Manual) RBC Morphology Sodium Potassium Chloride Carbon Dioxide Anion Gap BUN Creatinine Est Cr Clr Drug Dosing Est GFR ( Amer) Est GFR (Non-Af Amer) BUN/Creatinine Ratio Glucose POC Glucose 143 H 159 H 117 H Calcium Magnesium Stl C. diff Tox B Gene 04/13/20 04/14/20 04/14/20 Unknown 06:12 06:12 WBC 4.55 L RBC 3.67 L Hgb 11.2 L Hct 34.1 L MCV 92.9 MCH 30.5 MCHC 32.8 RDW Std Deviation 46.5 H RDW Coeff of Valentina 13.6 Plt Count 138 MPV 9.9 Neutrophils % (Manual) 78.3 Lymphocytes % (Manual) 7.0 Monocytes % (Manual) 13.0 Eosinophils % (Manual) 1.7 Neutrophils # (Manual) 3.56 Total Absolute Neuts 3.56 Lymphocytes # (Manual) 0.32 L Total Abs Lymphocytes 0.32 L Monocytes # (Manual) 0.59 Eosinophils # (Manual) 0.08 RBC Morphology Unremarkable Sodium 140 Potassium 3.3 L Chloride 110 H Carbon Dioxide 23 Anion Gap 7.0 BUN 17 Creatinine 1.29 H Est Cr Clr Drug Dosing 46.2 Est GFR ( Amer) 51.8 Est GFR (Non-Af Amer) 44.7 BUN/Creatinine Ratio 13.2 Glucose 98 POC Glucose Calcium 8.6 Magnesium 2.2 Stl C. diff Tox B Gene Negative Cdiff Gene 04/14/20 07:19 WBC RBC Hgb Hct MCV MCH MCHC RDW Std Deviation RDW Coeff of Valentina Plt Count MPV Neutrophils % (Manual) Lymphocytes % (Manual) Monocytes % (Manual) Eosinophils % (Manual) Neutrophils # (Manual) Total Absolute Neuts Lymphocytes # (Manual) Total Abs Lymphocytes Monocytes # (Manual) Eosinophils # (Manual) RBC Morphology Sodium Potassium Chloride Carbon Dioxide Anion Gap BUN Creatinine Est Cr Clr Drug Dosing Est GFR ( Amer) Est GFR (Non-Af Amer) BUN/Creatinine Ratio Glucose POC Glucose 103 H Calcium Magnesium Stl C. diff Tox B Gene PG Care Time/CCT Total # of Minutes Spent Total Time Spent with Patient: Total time spent is greater than 50% in coordination of care (as documented) at patient's floor/unit and/or counseling patient: 40 min Coding Level of Care Code 21943 Subseq Hosp Care Lvl 3 Diagnoses Polycystic renal disease Q61.3 Kidney transplant recipient Z94.0 Immunocompromised state D89.9 Fever R50.9 Fever type: unspecified Diarrhea R19.7 (1) Fever Fever type: unspecified Qualified Code(s): R50.9 - Fever, unspecified
[2020-04-14] MEDS: FIDAXOMICIN 200 MG TAB PO SCH ×2 (11:00→20:51)
--- NOTE | 2020-04-14 15:33 | Anesthesiology Consultation ---
Date of Service April 14, 2020 Assessment & Plan (1) Encounter for pre-operative examination: Chart Review Chart Review: Acceptable Risk for Surgery and Patient NOT seen in Pre Admission Testing Consults Requested none History Surgery Operation Date: 04/14/20 18:00 Proposed Procedures p Colonoscopy Dr. Reagan Kirk MD Height/Weight Height: 5 ft 8 in Weight: 71.7 kg Allergies Allergy/AdvReac Type Severity Reaction Status Date / Time Iodinated Contrast Media Allergy Severe Hx Kidney Verified 04/13/20 02:11 Transplant Rtsginm-Nmf-Keg Reductase Allergy Severe "PANCREATIT Verified 04/13/20 02:11 Inhibitor IS" sumatriptan Allergy Severe seizure Verified 04/13/20 02:11 hydrochlorothiazide Allergy Mild Unknown Verified 04/13/20 02:11 Sulfa (Sulfonamide Allergy Mild . Verified 04/13/20 02:11 Antibiotics) triamterene Allergy Mild Unknown Verified 04/13/20 02:11 atorvastatin Allergy Unknown ? Verified 04/13/20 02:11 doxycycline Allergy Unknown UNKNOWN Verified 04/13/20 02:11 levofloxacin Allergy Unknown joint pain Verified 04/13/20 02:11 adhesive AdvReac Unknown SKIN TEAR Verified 04/13/20 02:11 Cipro AdvReac Unknown FATIGUE Verified 01/20/18 21:00 ciprofloxacin AdvReac Unknown FATIGUE Verified 04/13/20 02:11 morphine AdvReac Unknown INEFFECTIVE Verified 04/13/20 02:11 Medications Home Medications Medication Instructions Recorded Confirmed Last Taken Levemir FlexTouch U-100 Insuln 9 units SUBCUT HS 09/01/18 04/13/20 04/12/20 allopurinol 300 mg PO 3XWK 09/01/18 04/13/20 04/11/20 pramipexole [Mirapex] 0.125 mg PO HS 09/01/18 04/13/20 07/24/19 montelukast 10 mg PO HS 03/26/19 04/13/20 04/12/20 tamsulosin 0.4 mg PO BID 03/26/19 04/13/20 04/12/20 prednisone 5 mg tablet 5 mg PO QAM #90 tab 05/02/19 04/13/20 07/24/19 azelastine 2 spray INTRANASAL Q12H PRN 07/10/19 04/13/20 Unknown fluticasone propionate [Flonase 2 spray INTRANASAL DAILY PRN 07/10/19 04/13/20 U nknown Allergy Relief] venlafaxine 50 mg tablet 50 mg PO DAILY #90 tab 10/08/19 04/13/20 04/12/20 loperamide 2 mg capsule 2 mg PO .COMPLEX cap 10/11/19 04/13/20 04/12/20 pantoprazole 40 mg tablet,delayed 40 mg PO 3XWK 10/11/19 04/13/20 04/10/20 release mycophenolate sodium 180 mg 360 mg PO BID #360 tab 11/04/19 04/13/20 04/12/20 tablet,delayed release ropinirole 0.25 mg tablet 0.25 mg PO HS #90 tab 01/27/20 04/13/20 Unknown fidaxomicin 200 mg tablet 200 mg PO Q12H #30 tab 03/16/20 04/13/20 Unknown carvedilol 6.25 mg tablet 18.75 mg PO BID #540 tab 03/18/20 04/13/20 04/12/20 PNV cmb#95-ferrous fumarate-FA 1 tab PO DAILY 04/13/20 04/13/20 04/12/20 [] [id number]-hhgxuanpnfldy-abiz 1 cap PO Q6H PRN 04/13/20 04/13/20 Unknown [Fioricet] conjugated estrogens [Premarin] 0.625 mg PO WK 04/13/20 04/13/20 04/08/20 gabapentin 100 mg PO UD 04/13/20 04/13/20 04/12/20 polysaccharide iron complex 150 mg PO QAM 04/13/20 04/13/20 04/12/20 [Ferrex 150] repaglinide 0.5 mg PO TID 04/13/20 04/13/20 Unknown sirolimus 1 mg PO BID 04/13/20 04/13/20 Unknown Active Medications Generic Name Dose Route Start Last Admin Trade Name Freq PRN Reason Stop Dose Admin Acetaminophen 1,000 mg 04/13/20 06:34 04/13/20 08:53 Tylenol PO 05/13/20 06:33 1,000 mg Q6H PRN Administration Pain or Fever Carvedilol 18.75 mg 04/13/20 09:00 04/14/20 09:00 Coreg PO 08/19/20 08:59 Not Given BID RADHA Fidaxomicin 200 mg 04/14/20 11:00 04/14/20 11:00 Dificid PO 04/24/20 10:59 Not Given BID RADHA Gabapentin 100 mg 04/13/20 09:00 04/14/20 09:00 Neurontin PO 05/13/20 08:59 Not Given QAM RADHA Gabapentin 200 mg 04/13/20 21:00 04/13/20 21:39 Neurontin PO 05/13/20 20:59 Not Given HS RADHA Hydromorphone HCl 0.5 mg 04/13/20 10:45 04/14/20 08:28 Dilaudid IV 04/27/20 10:44 0.5 mg Q3H PRN Administration Pain Sodium Chloride 1,000 mls @ 80 mls/hr 04/13/20 16:14 04/14/20 08:28 Nss 1000ml IV 05/13/20 16:13 80 mls/hr .[id number] RADHA Administration Insulin Aspart 0 units 04/13/20 07:30 04/14/20 11:50 Novolog Flexpen SC 05/13/20 07:29 Not Given ACHS RADHA Montelukast Sodium 10 mg 04/13/20 21:00 04/13/20 21:40 Singulair PO 05/13/20 20:59 10 mg HS RADHA Administration Mycophenolate Sodium 360 mg 04/13/20 14:30 04/14/20 09:00 Myfortic PO 05/13/20 14:29 Not Given BID RADHA Ondansetron HCl 4 mg 04/13/20 06:34 04/13/20 21:34 Zofran IV 05/13/20 06:33 4 mg Q6H PRN Administration Nausea Pantoprazole Sodium 40 mg 04/13/20 21:00 04/13/20 21:40 Protonix PO 05/13/20 20:59 40 mg MoWeFr@HS RADHA Administration Polysaccharide Iron Complex 150 mg 04/13/20 09:00 04/14/20 09:00 Niferex-150 W/Vit C Cap PO 05/13/20 08:59 Not Given QAM RADHA Pramipexole Dihydrochloride 0.125 mg 04/13/20 21:00 04/13/20 21:38 Mirapex PO 05/13/20 20:59 0.125 mg HS RADHA Administration Prednisone 5 mg 04/13/20 09:00 04/14/20 09:00 Prednisone PO 05/13/20 08:59 Not Given QAM RADHA Ropinirole HCl 0.25 mg 04/13/20 21:00 04/13/20 21:40 Requip PO 05/13/20 20:59 0.25 mg HS RADHA Administration Sirolimus 1 mg 04/13/20 09:00 04/14/20 10:00 Sirolimus PO 05/13/20 08:59 Not Given BID RADHA Tamsulosin HCl 0.4 mg 04/13/20 09:00 04/14/20 09:00 Flomax PO 05/13/20 08:59 Not Given BID RADHA Venlafaxine HCl 50 mg 04/13/20 09:00 04/14/20 09:00 Effexor PO 05/13/20 08:59 Not Given DAILY RADHA Past Medical History Medical History (Updated 04/14/20 @ 15:34 by Karl Hinkle MD) Abdominal pain (Resolved) Acute gout (Inactive) Acute pyelonephritis (Resolved) Acute renal failure Allergic rhinitis due to allergen (Inactive) CKD (chronic kidney disease) stage 4, GFR 15-29 ml/min Clostridium difficile diarrhea (Resolved) Dehydration (Acute) Diarrhea of presumed infectious origin Fever HTN (hypertension) (Chronic) Immunosuppressed status Intractable vomiting (Resolved) Migraine Pancreatitis SBO (small bowel obstruction) (Resolved) Sepsis Sinus congestion (Inactive) SIRS (systemic inflammatory response syndrome) Unspecified asthma (Inactive) UTI (lower urinary tract infection) (Resolved 10/21/14) Exercise / Class Metabolic Activity II 4-5 Yardwork/Stairs/Walk up hill Past Family History Family History Other Family history non-contributory Past Surgical History Surgical History (Updated 04/14/20 @ 15:44 by Karl Hinkle MD) History of hernia surgery Hx of appendectomy Hx of cholecystectomy Kidney replaced by transplant (Inactive) x2. most recent 1 year ago Past Anesthesia History No Hx of Anesthesia Complications and No Family Hx of Anesthesia Complications History of PONV No Hx of PONV and No Hx of Motion Sickness Social History Smoking Status: Former smoker tobacco type: cigarettes Do You Dip or Chew Tobacco: No Smoking End Date: 1983 Hx Alcohol Use: Yes Alcohol type: beer alcohol intake frequency: holidays/special occasions only Hx Substance Use: No substance use type: prescription drug Last Used Substance: Hours (ago) Physical Exam Vital Signs Last Vital Signs Temp 37.4 C 04/14/20 11:53 Pulse 80 04/14/20 11:53 Resp 17 04/14/20 11:53 BP 140/83 04/14/20 11:53 Pulse Ox 99 04/14/20 11:53 Testing Laboratory Results 04/14/20 06:12 04/14/20 06:12 PT 10.5 Seconds (9.0-12.0) 04/13/20 01:05 INR 1.0 (0.9-1.1) 04/13/20 01:05 Urine Color Yellow 04/13/20 01:20 Urine Appearance Clear (Clear) 04/13/20 01:20 Urine pH 7.0 (4.5-7.5) 04/13/20 01:20 Ur Specific [place] 1.014 (1.000-1.030) 04/13/20 01:20 Urine Protein 2+ (Negative) H 04/13/20 01:20 Urine Glucose (UA) Negative (Negative) 04/13/20 01:20 Urine Ketones Negative (Negative) 04/13/20 01:20 Urine Nitrite Negative (Negative) 04/13/20 01:20 Ur Leukocyte Esterase Negative (Negative) 04/13/20 01:20 Urine WBC (Auto) 1-5 /hpf (0-5) 04/13/20 01:20 Urine RBC (Auto) 0-4 /hpf (0-4) 04/13/20 01:20 U Hyaline Cast (Auto) 0 /lpf (0-5) 04/13/20 01:20 U Epithel Cells (Auto) 20-30 /lpf (0-5) H 04/13/20 01:20 Urine Bacteria (Auto) Negative (Negative) 04/13/20 01:20 04/13/20 Unknown Escherichia coli Shiga Toxins Test - Preliminary Stool Stool Culture - Preliminary No Salmonella isolated to date, No Shigella isolated to date, No Campylobacter jejuni isolated to date. 04/13/20 10:15 Urine Culture - Preliminary Urine,Clean Catch No growth - Less than 1,000 colonies/mL, Final report to follow. 04/13/20 01:42 Aerobic Blood Culture - Preliminary Blood No growth in Aerobic bottle after 24 hours. Anaerobic Blood Culture - Preliminary No growth in Anaerobic bottle after 24 hours. 04/13/20 01:05 Aerobic Blood Culture - Preliminary Blood No growth in Aerobic bottle after 24 hours. Anaerobic Blood Culture - Preliminary No growth in Anaerobic bottle after 24 hours. 04/14/20 04/14/20 11:28 07:19 POC Glucose 81 103 H Electrocardiogram Date: 07/25/19 Findings: + NSR @ (92) Normal sinus rhythm with sinus arrhythmia Normal ECG When compared with ECG of 26-JAN-2018 07:15, Vent. rate has increased BY 37 BPM T wave amplitude has decreased in Inferior leads Nonspecific T wave abnormality no longer evident in Lateral leads QT has shortened Confirmed by Gilbert Shankar ([id number]) on 07/25/2019 9:44:54 PM
--- NOTE | 2020-04-14 15:37 | Hospitalist Progress Note ---
Date of Service April 14, 2020 Assessment & Plan (1) Diarrhea: ongoing for a month, but has a h/o diarrhea, specifically C diff C diff negative stool cultures negative diarrhea triggered by eating colonoscopy on 04/14 shows diverticulosis, biopsies taken GI following, will await further recommendations has responded to imodium (2) Fever: unclear etiology, no growth on urine or blood cultures antibiotics stopped as there was no clear source having diarrhea, triggered by eating no further fever (3) Renal transplant recipient: Cr is stable, improving daily, electrolytes show low K, replaced continue immunosuppression Dr. Roy following (4) Acid reflux disease: continue PPI (5) Depression: mood stable (6) Diabetes mellitus: diabetic diet Novolog sliding scale monitor for hypoglycemia (7) Hyperlipidemia: (8) Hypertension: (9) Restless legs syndrome: (10) Immunosuppressed status: (11) Hypomagnesemia: replaced, resolved (12) Nausea and vomiting: resolved, only happened once the evening prior to admission (13) Hypokalemia: replaced IV Admission and Anticipated Discharge Date Admission Date: April 13, 2020 Subjective patient had a long night with bowel prep, stools clear yellow this morning, she requested more GoLytely she wants to make sure it is adequate to avoid doing it again reviewed labs, WBC 4.5, hb 11.2, K 3.3 and Cr 1.29 C diff testing negative urine culture with no growth, blood cultures no growth, stool cultures no growth d/w Dr. Kirk, he plans for colonoscopy this afternoon colonoscopy showed diverticulosis of entire colon, biopsies taken, transferred back to PCU in stable condition Review of Systems Review of Systems: All systems reviewed & are unremarkable except as noted in Subjective Constitutional: no fever Respiratory: no cough and no dyspnea Cardiovascular: no chest pain and no edema Gastrointestinal: + abdominal pain (mild, RLQ) and + diarrhea/loose stools; no nausea, no vomiting and no constipation Genitourinary: no dysuria Neurologic: + headache(s) (migraine) Physical Exam Constitutional: WD/WN, vitals as above Eyes: PERRL, conjunctivae normal, anicteric sclerae ENMT: external ear and nose normal, oropharynx normal Neck: trachea midline, no thyromegaly Respiratory: normal respiratory effort, lungs clear to auscultation Cardiovascular: RRR, no murmur, no edema Gastrointestinal (Abdomen): Inspection/Auscultation: abdomen normal to inspection and normal bowel sounds; abdomen not distended Percussion/Palpation: + abdomen tender (RLQ) and abdomen soft; no guarding and abdomen not rigid Musculoskeletal: no cyanosis or clubbing, extremities motor strength 5/5 Skin: no rashes, warm and dry Neurologic: patellar DTR's 2+ bilat, sensation intact and PERRL, EOMI, accommodation nl, no face palsy, no dysarthria Psychiatric: A+Ox3, euthymic affect Lymphatic: no cervical or axillary lymphadenopathy Results & Data Results & Data ([facility]) Vital Signs (Past 12 Hours) Vital Signs Temp Pulse Resp BP Pulse Ox 04/14/20 11:53 37.4 C 80 17 140/83 99 04/14/20 07:21 37.0 C 67 18 141/69 H 96 Laboratory Results Laboratory Results - last 24 hr 04/13/20 04/13/20 04/14/20 16:29 20:44 06:12 WBC 4.55 L RBC 3.67 L Hgb 11.2 L Hct 34.1 L MCV 92.9 MCH 30.5 MCHC 32.8 RDW Std Deviation 46.5 H RDW Coeff of Avlentina 13.6 Plt Count 138 MPV 9.9 Neutrophils % (Manual) 78.3 Lymphocytes % (Manual) 7.0 Monocytes % (Manual) 13.0 Eosinophils % (Manual) 1.7 Neutrophils # (Manual) 3.56 Total Absolute Neuts 3.56 Lymphocytes # (Manual) 0.32 L Total Abs Lymphocytes 0.32 L Monocytes # (Manual) 0.59 Eosinophils # (Manual) 0.08 RBC Morphology Unremarkable Sodium Potassium Chloride Carbon Dioxide Anion Gap BUN Creatinine Est Cr Clr Drug Dosing Est GFR ( Amer) Est GFR (Non-Af Amer) BUN/Creatinine Ratio Glucose POC Glucose 159 H 117 H Calcium Magnesium IgA Tiss Transglutamin IgA Celiac Disease Interp 04/14/20 04/14/20 04/14/20 06:12 07:19 10:02 WBC RBC Hgb Hct MCV MCH MCHC RDW Std Deviation RDW Coeff of Valentina Plt Count MPV Neutrophils % (Manual) Lymphocytes % (Manual) Monocytes % (Manual) Eosinophils % (Manual) Neutrophils # (Manual) Total Absolute Neuts Lymphocytes # (Manual) Total Abs Lymphocytes Monocytes # (Manual) Eosinophils # (Manual) RBC Morphology Sodium 140 Potassium 3.3 L Chloride 110 H Carbon Dioxide 23 Anion Gap 7.0 BUN 17 Creatinine 1.29 H Est Cr Clr Drug Dosing 46.2 Est GFR ( Amer) 51.8 Est GFR (Non-Af Amer) 44.7 BUN/Creatinine Ratio 13.2 Glucose 98 POC Glucose 103 H Calcium 8.6 Magnesium 2.2 IgA Pending Tiss Transglutamin IgA Pending Celiac Disease Interp Pending 04/14/20 11:28 WBC RBC Hgb Hct MCV MCH MCHC RDW Std Deviation RDW Coeff of Valentina Plt Count MPV Neutrophils % (Manual) Lymphocytes % (Manual) Monocytes % (Manual) Eosinophils % (Manual) Neutrophils # (Manual) Total Absolute Neuts Lymphocytes # (Manual) Total Abs Lymphocytes Monocytes # (Manual) Eosinophils # (Manual) RBC Morphology Sodium Potassium Chloride Carbon Dioxide Anion Gap BUN Creatinine Est Cr Clr Drug Dosing Est GFR ( Amer) Est GFR (Non-Af Amer) BUN/Creatinine Ratio Glucose POC Glucose 81 Calcium Magnesium IgA Tiss Transglutamin IgA Celiac Disease Interp Microbiology 04/13/20 Unknown Stool Escherichia coli Shiga Toxins Test - Preliminary 04/13/20 Unknown Stool Stool Culture - Preliminary No Salmonella isolated to date, No Shigella isolated to date, No Campylobacter jejuni isolated to date. 04/13/20 10:15 Urine,Clean Catch Urine Culture - Preliminary No growth - Less than 1,000 colonies/mL, Final report to follow. 04/13/20 01:42 Blood Aerobic Blood Culture - Preliminary No growth in Aerobic bottle after 24 hours. 04/13/20 01:42 Blood Anaerobic Blood Culture - Preliminary No growth in Anaerobic bottle after 24 hours. 04/13/20 01:05 Blood Aerobic Blood Culture - Preliminary No growth in Aerobic bottle after 24 hours. 04/13/20 01:05 Blood Anaerobic Blood Culture - Preliminary No growth in Anaerobic bottle after 24 hours. Medications Administered Current Inpatient Medications Acetaminophen (Tylenol) 1,000 mg PO Q6H PRN PRN Reason: Pain or Fever Stop: 05/13/20 06:33 Last Admin: 04/13/20 08:53 Dose: 1,000 mg Documented by: Acetaminophen/Butalbital/Caffeine (Fioricet) 1 tab PO Q4H PRN PRN Reason: Headache Stop: 05/14/20 10:44 Al Hydrox/Mg Hydrox/Simethicone (Maalox) 15 ml PO Q4H PRN PRN Reason: Dyspepsia Stop: 05/13/20 06:33 Allopurinol (Zyloprim) 300 mg PO TuThSa@HS [facility] Stop: 05/14/20 20:59 Carvedilol (Coreg) 18.75 mg PO BID [facility] Stop: 05/13/20 08:59 Last Admin: 04/14/20 09:00 Dose: Not Given Documented by: Dextrose (Dextrose 50%) 25 - 50 ml IV UD PRN; Protocol PRN Reason: Hypoglycemia Protocol Stop: 05/13/20 06:33 Estrogens Conjugated (Premarin) 0.625 mg PO We@0900 [facility] Stop: 05/15/20 08:59 Fidaxomicin (Dificid) 200 mg PO BID [facility] Stop: 04/24/20 10:59 Last Admin: 04/14/20 11:00 Dose: Not Given Documented by: Fluticasone Propionate (Flonase) 2 sprays NA DAILY PRN PRN Reason: SEASONAL ALLERGIES Stop: 05/13/20 06:33 Gabapentin (Neurontin) 100 mg PO QAM [facility] Stop: 05/13/20 08:59 Last Admin: 04/14/20 09:00 Dose: Not Given Documented by: Gabapentin (Neurontin) 200 mg PO [facility] Stop: 05/13/20 20:59 Last Admin: 04/13/20 21:39 Dose: Not Given Documented by: Glucagon (Glucagen) 1 mg SQ UD PRN; Protocol PRN Reason: Hypoglycemia Protocol Stop: 05/13/20 06:33 Glucose (Dex4 Glucose) 4 - 8 tabs PO UD PRN; Protocol PRN Reason: Hypoglycemia Protocol Stop: 05/13/20 06:33 Glucose (Glucose 40%) 15 - 30 gm PO UD PRN; Protocol PRN Reason: Hypoglycemia Protocol Stop: 05/13/20 06:33 Hydromorphone HCl (Dilaudid) 0.5 mg IV Q3H PRN PRN Reason: Pain Stop: 04/27/20 10:44 Last Admin: 04/14/20 08:28 Dose: 0.5 mg Documented by: Sodium Chloride (Nss 1000ml) 1,000 mls @ 80 mls/hr IV .[id number] [facility] Stop: 05/13/20 16:13 Last Admin: 04/14/20 08:28 Dose: 80 mls/hr Documented by: Insulin Aspart (Novolog Flexpen) 0 units SC ACHS [facility] Stop: 05/13/20 07:29 Last Admin: 04/14/20 11:50 Dose: Not Given Documented by: Magnesium Hydroxide (Milk Of Magnesia) 30 ml PO Q12H PRN PRN Reason: Constipation Stop: 05/13/20 06:33 Miscellaneous (Carbohydrates For Hypoglycemia) 15 - 30 gm PO UD PRN PRN Reason: Hypoglycemia Protocol Stop: 05/13/20 06:33 Montelukast Sodium (Singulair) 10 mg PO [facility] Stop: 05/13/20 20:59 Last Admin: 04/13/20 21:40 Dose: 10 mg Documented by: Mycophenolate Sodium (Myfortic) 360 mg PO BID [facility] Stop: 05/13/20 14:29 Last Admin: 04/14/20 09:00 Dose: Not Given Documented by: Ondansetron HCl (Zofran) 4 mg IV Q6H PRN PRN Reason: Nausea Stop: 05/13/20 06:33 Last Admin: 04/13/20 21:34 Dose: 4 mg Documented by: Pantoprazole Sodium (Protonix) 40 mg PO MoWeFr@[facility] Stop: 05/13/20 20:59 Last Admin: 04/13/20 21:40 Dose: 40 mg Documented by: Polysaccharide Iron Complex (Niferex-150 W/Vit C Cap) 150 mg PO QAM [facility] Stop: 05/13/20 08:59 Last Admin: 04/14/20 09:00 Dose: Not Given Documented by: Pramipexole Dihydrochloride (Mirapex) 0.125 mg PO [facility] Stop: 05/13/20 20:59 Last Admin: 04/13/20 21:38 Dose: 0.125 mg Documented by: Pred[facility]one (Prednisone) [facility] Stop: 05/13/20 08:59 Last Admin: 04/14/20 09:00 Dose: Not Given Documented by: Ropinirole HCl (Requip) 0.25 mg PO [facility] Stop: 05/13/20 20:59 Last Admin: 04/13/20 21:40 Dose: 0.25 mg Documented by: Sirolimus (Sirolimus) 1 mg PO BID [facility] Stop: 05/13/20 08:59 Last Admin: 04/14/20 10:00 Dose: Not Given Documented by: Tamsulosin HCl (Flomax) 0.4 mg PO BID [facility] Stop: 05/13/20 08:59 Last Admin: 04/14/20 09:00 Dose: Not Given Documented by: Venlafaxine HCl (Effexor) 50 mg PO DAILY [facility] Stop: 05/13/20 08:59 Last Admin: 04/14/20 09:00 Dose: Not Given Documented by: PG Care Time/CCT Total # of Minutes Spent Total Time Spent with Patient: Total time spent is greater than 50% in coordination of care (as documented) at patient's floor/unit and/or counseling patient: Coding Level of Care Code 86109 Subseq Hosp Care Lvl 3 Diagnoses Diarrhea R19.7 Fever R50.9 Renal transplant recipient Z94.0 Acid reflux disease K21.9 Depression F32.9 Diabetes mellitus E11.9 Hyperlipidemia E78.5 Hypertension I10 Restless legs syndrome G25.81 Immunosuppressed status D89.9 Hypomagnesemia E83.42 Nausea and vomiting R11.2 Hypokalemia E87.6
[2020-04-14] MEDS ORDERED: PROPOFOL IV EMULSION 10 MG/ML 20 ML VIAL IV ONE (16:04)
[2020-04-14] MEDS ORDERED: LIDOCAINE HCL 2% 2 ML VIAL/AMP(20MG/ML) INFIL ONE (16:04)
--- NOTE | 2020-04-14 16:47 | GI REPORT ---
Patient Name: Tia Bowling Procedure Date: 04/14/2020 4:08 PM Date of : 1960 Admit Type: Inpatient Age: 60 Gender: Female Attending MD: Sunil Kirk MD Procedure: Colonoscopy Providers: Sunil Kirk MD Referring MD: John Langley Indications: Chronic diarrhea Medicines: Monitored Anesthesia Care Complications: No immediate complications. Estimated blood loss: None. Estimated Blood Loss: Estimated blood loss: none. Procedure: Pre-Anesthesia Assessment: - Prior Anticoagulants: The patient has taken no previous anticoagulant or antiplatelet agents. - ASA Grade Assessment: III - A patient with severe systemic disease. After I obtained informed consent, the scope was passed under direct vision. Throughout the procedure, the patient's blood pressure, pulse, and oxygen saturations were monitored continuously. The Colonoscope was introduced through the anus and advanced to the cecum, identified by appendiceal orifice and ileocecal valve. The colonoscopy was performed without difficulty. The patient tolerated the procedure well. The quality of the bowel preparation was fair. Findings: Multiple small and large-mouthed diverticula were found in the sigmoid colon, descending colon, transverse colon, ascending colon and cecum. Estimated blood loss: none. Biopsies for histology were taken with a cold forceps from the right colon and left colon for histology. Estimated blood loss: none. The exam was otherwise without abnormality. Impression: - Preparation of the colon was fair. - Diverticulosis in the sigmoid colon, in the descending colon, in the transverse colon, in the ascending colon and in the cecum. Biopsied. - The examination was otherwise normal. Recommendation: - Discharge patient to home (with escort). - Resume previous diet today. - Await pathology results. Sunil Kirk MD 04/14/2020 4:47:16 PM This report has been signed electronically. Note Initiated On: 04/14/2020 4:08 PM Number of Addenda: 0 I attest to the content of the Intraoperative Record and orders documented therein, exceptions below {[id number]}
--- NOTE | 2020-04-14 16:54 | Anesthesiology Progress Note ---
Date of Service April 14, 2020 Anesthesia Post Procedure Vital Signs Vital Signs: Temp Pulse Resp BP Pulse Ox 04/14/20 16:52 62 18 128/70 100 04/14/20 16:38 55 L 18 112/61 100 04/14/20 15:29 37.1 C 83 20 180/75 H 98 04/14/20 11:53 37.4 C 80 17 140/83 99 04/14/20 07:21 37.0 C 67 18 141/69 H 96 04/14/20 03:18 37.1 C 70 16 119/55 L 97 04/13/20 23:22 36.9 C 56 L 18 111/53 L 96 04/13/20 19:43 36.4 C L 52 L 18 111/57 L 97 Transfer of Care Handoff Completed per policy Notes Mental Status: alert / awake / arousable and participated in evaluation Patient Amnestic to Procedure: Yes Nausea / Vomiting: adequately controlled Pain: adequately controlled Airway Patency, RR, SpO2: stable & adequate BP & HR: stable & adequate Hydration State: stable & adequate Anesthetic Complications: no major complications apparent and Pt Satisfied with anesthetic care
[2020-04-14] MEDS: ONDANSETRON INJ 2 MG/ML 2 ML VIAL IV PRN (20:48)
[2020-04-14] MEDS: BUTALBITAL/ACETAMIN/CAFFEINE TAB PO PRN (20:48)
[2020-04-14] MEDS: PRAMIPEXOLE DIHYDROCHLO 0.25 MG TAB PO SCH (20:48)
[2020-04-14] MEDS: ROPINIROLE HCL 0.25 MG TABLET PO SCH (20:50)
[2020-04-14] MEDS: MONTELUKAST SODIUM 10 MG TABLET PO SCH (20:50)
[2020-04-14] MEDS ORDERED: allopurinoL 300 MG TAB PO SCH (21:00)
[2020-04-15] MEDS: SODIUM CHLORIDE 0.9% 1000ML 1,000 ML IV SCH ×2 (05:34→14:19)
[2020-04-15] MEDS ORDERED: LOPERAMIDE HCL 2 MG CAP PO PRN (07:44)
--- NOTE | 2020-04-15 07:51 | Anesthesiology Progress Note ---
Date of Service April 15, 2020 Anesthesia Post Procedure Vital Signs Vital Signs: Temp Pulse Resp BP Pulse Ox 04/15/20 07:46 36.8 C 64 19 151/86 H 100 04/15/20 03:43 36.6 C 65 17 122/62 95 04/14/20 23:30 36.7 C 59 L 17 136/62 98 04/14/20 18:53 37.2 C 58 L 18 156/75 H 96 04/14/20 17:26 37 C 57 L 16 153/71 H 100 04/14/20 17:18 37 C 57 L 16 153/71 H 100 04/14/20 17:05 56 L 18 145/83 H 100 04/14/20 16:52 62 18 128/70 100 04/14/20 16:38 55 L 18 112/61 100 04/14/20 15:29 37.1 C 83 20 180/75 H 98 04/14/20 11:53 37.4 C 80 17 140/83 99 Notes Mental Status: alert / awake / arousable and participated in evaluation Patient Amnestic to Procedure: Yes Nausea / Vomiting: adequately controlled Pain: adequately controlled Airway Patency, RR, SpO2: stable & adequate BP & HR: stable & adequate Hydration State: stable & adequate Anesthetic Complications: no major complications apparent and Pt Satisfied with anesthetic care
[2020-04-15 08:33] LABS: Basophils # (auto) 0.01 K/uL (0-0.2); Basophils % (auto) 0.3 %; Eosinophils # (auto) 0.09 K/uL (0-0.5); Eosinophils % (auto) 2.6 %; Hematocrit (blood only) 35.5 % (37-47); Hemoglobin 11.7 g/dL (12.0-16.0); Immature Granulocytes # (auto) 0.01 K/uL (0.00-0.02); Immature Granulocytes % (auto) 0.3 %; Lymphocytes % (auto) 14.6 %; Mean Corpuscular Hemoglobin 30.5 pg (25-34); Mean Corpuscular Volume 92.7 fL (80-100); Mean Platelet Volume 9.3 fL (7.4-10.4); Monocytes # (auto) 0.51 K/uL (0.11-0.59); Monocytes % (auto) 14.9 %; Neutrophils # (auto) 2.31 K/uL (1.4-6.5); Neutrophils % (auto) 67.3 %; Platelet Count 126 K/uL (130-400); RDW Coefficient of Variation 13.5 % (11.5-14.5); RDW Standard Deviation 45.8 fL (36.4-46.3); Red Blood Count 3.83 M/uL (4.2-5.4); White Blood Count 3.43 K/uL (4.8-10.8)
[2020-04-15] MEDS ORDERED: ESTROGENS, CONJUGATED 0.625 MG TAB PO SCH (09:00)
[2020-04-15] MEDS: HYDROmorphone INJ 0.5 MG/0.5 ML SYR IV PRN (09:06)
[2020-04-15] MEDS: SIROLIMUS 0.5 MG TABLET PO SCH ×2 (09:07→20:01)
[2020-04-15] MEDS: MYCOPHENOLATE SODIUM 180 MG TAB PO SCH ×2 (09:07→19:59)
[2020-04-15] MEDS: predniSONE 5 MG TAB PO SCH (09:08)
[2020-04-15] MEDS: VENLAFAXINE HCL 50 MG TAB PO SCH (09:08)
[2020-04-15] MEDS: carvediloL 12.5 MG TAB PO SCH ×2 (09:08→19:56)
[2020-04-15] MEDS: TAMSULOSIN HCL 0.4 MG CAP PO SCH ×2 (09:08→19:58)
[2020-04-15] MEDS: IRON POLYSACCHARIDE COMPLEX 150 MG CAPSULE PO SCH (09:09)
[2020-04-15] MEDS: GABAPENTIN 100 MG CAP PO SCH ×2 (09:09→19:59)
[2020-04-15 09:12] LABS: BUN Creatinine Ratio 10.9 (10-20); Calcium 8.6 mg/dl (8.5-10.1); Creatinine Clr Calc Pharmacy 46.6 ml/min; Est GFR (African American) 52.2; Est GFR (Non-African American) 45.1; Potassium 4.1 mmol/L (3.5-5.1)
[2020-04-15] MEDS: INSULIN ASPART 100 UNITS/ML 3 ML PEN SC SCH ×4 (09:51→21:13)
[2020-04-15] MEDS: FIDAXOMICIN 200 MG TAB PO SCH ×2 (09:52→19:57)
[2020-04-15] MEDS: BUTALBITAL/ACETAMIN/CAFFEINE TAB PO PRN (09:52)
--- NOTE | 2020-04-15 10:22 | Gastroenterology Progress Note ---
Date of Service April 15, 2020 Assessment & Plan (1) Diarrhea: 1. Await Celiac profile and colonic biopsies as pending. 2. NPO after midnight. 3. EGD tomorrow with Dr. Kirk 4. Continue supportive care. Admission and Anticipated Discharge Date Admission Date: April 13, 2020 Supervising Physician Co-Signing Physician Notes I personally evaluated the patient and agree with the findings as documented by ELZA Gary Exam: abd: soft, moderate lower abdominal tenderness, nd proceed with EGD tomorrow, NPO post midnight tonight Subjective Patient reports significant diarrhea all through the night and this morning. Reports abdominal pain and tenderness in the epigastric region which is worse with a cough. Stools are reportedly very dark. No n/v/hematemesis. H&H is stable. Colonoscopy yesterday unremarkable. Celiac panel is pending as are colonic biopsies. Review of Systems Constitutional: + fatigue; no fever and no chills Respiratory: no dyspnea and no dyspnea on exertion Cardiovascular: no chest pain and no palpitations Gastrointestinal: as per Subjective / HPI Psychiatric: as per Subjective / HPI Physical Exam Constitutional: WD/WN, vitals as above well developed and well nourished Eyes: EOM intact bilaterally Respiratory: normal respiratory effort, lungs clear to auscultation Cardiovascular: Rate/Rhythm: regular rate and regular rhythm Heart Sounds: no murmur Gastrointestinal (Abdomen): Inspection/Auscultation: normal bowel sounds Percussion/Palpation: + abdomen tender (epigastric) and abdomen soft Musculoskeletal: Extremities: extremities normal to inspection Psychiatric: A+Ox3, euthymic affect Results & Data Results & Data ([facility]) Vital Signs (Past 12 Hours) Vital Signs Temp Pulse Resp BP Pulse Ox 04/15/20 07:46 36.8 C 64 19 151/86 H 100 04/15/20 03:43 36.6 C 65 17 122/62 95 04/14/20 23:30 36.7 C 59 L 17 136/62 98 Laboratory Results Abnormal lab results 04/14/20 04/15/20 04/15/20 Range/Units 20:27 08:16 08:16 WBC 3.43 L (4.8-10.8) K/uL RBC 3.83 L (4.2-5.4) M/uL Hgb 11.7 L (12.0-16.0) g/dL Hct 35.5 L (37-47) % Plt Count 126 L (130-400) K/uL Lymph # (Auto) 0.50 L (1.2-3.4) K/uL Chloride 112 H (98-107) mmol/L Creatinine 1.28 H (0.6-1.2) mg/dl Glucose 115 H (70-99) mg/dl POC Glucose 100 H (70-99) mg/dl PG Care Time/CCT Total # of Minutes Spent Total Time Spent with Patient: Total time spent is greater than 50% in coordination of care (as documented) at patient's floor/unit and/or counseling patient: Coding Level of Care Code 00110 Subseq Hosp Care Lvl 3 Diagnoses Diarrhea R19.7
[2020-04-15] MEDS ORDERED: methylPREDNISolone 50 MG in SYRINGE 0 ML IV STA ×2 (10:25→22:25)
[2020-04-15] MEDS ORDERED: DiphenhydrAMINE HCL 50 MG/ML VIAL IV STA ×2 (10:25→22:23)
[2020-04-15] MEDS ORDERED: PROMETHAZINE HCL 25 MG in SODIUM CHLORIDE 0.9% 50 ML IV STA ×2 (10:25→22:24)
--- NOTE | 2020-04-15 10:29 | Nephrology Progress Note ---
Date of Service April 15, 2020 Assessment & Plan (1) Renal transplant recipient: Mrs. Bowling remains relatively stable. However, she continues to have some diarrhea. Her renal function is stable at her new baseline after her most recent renal transplant done about 1 year and 3 months ago. Her work-up continues. All cultures have been unremarkable. Her colonoscopy is unremarkable as well other than changes of diverticulosis. Apparently, an EGD is being considered for later today. Blood studies for celiac sprue have been sent to a reference lab. For now, would continue her on her routine immunosuppression and maintain her state of hydration. No other recommendations for now. I will continue to follow her with you. (2) Immunocompromised state: (3) Diabetes mellitus: (4) Hypertension: (5) Diarrhea: (6) Fever: Admission and Anticipated Discharge Date Admission Date: April 13, 2020 Subjective Mrs. Bowling had another uncomfortable night. She had some diarrhea. She denied having any significant crampy abdominal pain. She had no nausea or vomiting. Additionally, she had a migraine headache beginning very early this morning for which she apparently eventually was medicated. Her headache is now subsided. She did have a colonoscopy yesterday. She tolerated the procedure well. Apparently, the study was normal other than diverticulosis consistent with her age but also consistent with a diagnosis of polycystic kidney disease. Her renal function has remained stable. She has no symptoms of uremia or volume overload. She has not had a significant fever although she has had intermittent very low-grade fevers. She does not have any shaking chills. She has no pain or tenderness over her transplanted kidney. She has no lower urinary tract symptoms or complaints. She continues on her routine immunosuppression. She is also taking her Dificid even though her stools are negative for C. difficile. Stools are also negative for enteric pathogens. Physical Exam Physical Exam: On physical examination, Mrs. Saenz appears to be relatively well. Her vital signs this morning show a blood pressure of 151/86. Her pulse is 64 and regular. Respiratory rate is 19 with an oxygen saturation of 100% on room air. Her temperature is 36.8 degrees. Her skin shows normal skin turgor. She has multiple scars from prior surgical procedures. She has no rash or infiltrative skin disease. There is no palpable lymphadenopathy. Her head is normal. Eyes are grossly normal. There is no conjunctival icterus. The ocular fundi were not examined. Ears, nose, mouth and throat are unremarkable. Her oral mucous membranes are moist. Her neck is supple. She has no jugular venous distention, carotid bruit or thyromegaly. Her chest is clear to auscultation. Cardiac exam shows a regular rhythm. S1 and S2 are normal. She has a very soft systolic murmur at the base radiating toward the neck. Her abdomen is nontender. I cannot appreciate any organomegaly or mass. Her renal graft is palpable in the right lower quadrant. She has a soft bruit over the graft. Bowel sounds are normal. Extremities show no cyanosis, clubbing or peripheral edema. Peripheral pulses are intact. Her neurologic exam shows no lateralizing changes. Results & Data ([facility]) Vital Signs (Past 12 Hours) Vital Signs Temp Pulse Resp BP Pulse Ox 04/15/20 07:46 36.8 C 64 19 151/86 H 100 04/15/20 03:43 36.6 C 65 17 122/62 95 04/14/20 23:30 36.7 C 59 L 17 136/62 98 Laboratory Results Laboratory Results - last 24 hr 04/14/20 04/14/20 04/14/20 11:28 15:45 20:27 WBC RBC Hgb Hct MCV MCH MCHC RDW Std Deviation RDW Coeff of Valentina Plt Count MPV Immature Gran % (Auto) Neut % (Auto) Lymph % (Auto) Swain % (Auto) Eos % (Auto) Baso % (Auto) Neut # (Auto) Lymph # (Auto) Swain # (Auto) Eos # (Auto) Baso # (Auto) Immature Gran # (Auto) Sodium Potassium Chloride Carbon Dioxide Anion Gap BUN Creatinine Est Cr Clr Drug Dosing Est GFR ( Amer) Est GFR (Non-Af Amer) BUN/Creatinine Ratio Glucose POC Glucose 81 91 100 H Calcium 04/15/20 04/15/20 04/15/20 07:29 08:16 08:16 WBC 3.43 L RBC 3.83 L Hgb 11.7 L Hct 35.5 L MCV 92.7 MCH 30.5 MCHC 33.0 RDW Std Deviation 45.8 RDW Coeff of Valentina 13.5 Plt Count 126 L MPV 9.3 Immature Gran % (Auto) 0.3 Neut % (Auto) 67.3 Lymph % (Auto) 14.6 Swain % (Auto) 14.9 Eos % (Auto) 2.6 Baso % (Auto) 0.3 Neut # (Auto) 2.31 Lymph # (Auto) 0.50 L Swain # (Auto) 0.51 Eos # (Auto) 0.09 Baso # (Auto) 0.01 Immature Gran # (Auto) 0.01 Sodium 140 Potassium 4.1 D Chloride 112 H Carbon Dioxide 22 Anion Gap 6.0 BUN 14 Creatinine 1.28 H Est Cr Clr Drug Dosing 46.6 Est GFR ( Amer) 52.2 Est GFR (Non-Af Amer) 45.1 BUN/Creatinine Ratio 10.9 Glucose 115 H POC Glucose 88 Calcium 8.6 PG Care Time/CCT Total # of Minutes Spent Total Time Spent with Patient: Total time spent is greater than 50% in coordination of care (as documented) at patient's floor/unit and/or counseling patient: Coding Level of Care Code 72039 Subseq Hosp Care Lvl 3 Diagnoses Renal transplant recipient Z94.0 Immunocompromised state D89.9 Diabetes mellitus E11.9 Hypertension I10 Diarrhea R19.7 Fever R50.9 Fever type: unspecified (1) Fever Fever type: unspecified Qualified Code(s): R50.9 - Fever, unspecified
--- NOTE | 2020-04-15 15:11 | Hospitalist Progress Note ---
Date of Service April 15, 2020 Assessment & Plan (1) Diarrhea: ongoing for a month, but has a h/o diarrhea, specifically C diff C diff negative stool cultures negative diarrhea triggered by eating colonoscopy on 04/14 shows diverticulosis, biopsies taken GI plans for EGD tomorrow, will look for evidence of celiac disease, take biopsies of duodenum has responded to imodium in the past, will add it today NPO after midnight (2) Fever: unclear etiology, no growth on urine or blood cultures antibiotics stopped as there was no clear source having diarrhea, triggered by eating no further fever since admission (3) Renal transplant recipient: Cr is stable, improving daily, electrolytes show low K, replaced IV continue immunosuppression Dr. Roy following (4) Acid reflux disease: continue PPI plan for EGD tomorrow (5) Depression: mood stable (6) Diabetes mellitus: diabetic diet Novolog sliding scale monitor for hypoglycemia, no episodes (7) Hyperlipidemia: (8) Hypertension: (9) Restless legs syndrome: (10) Immunosuppressed status: (11) Hypomagnesemia: replaced, resolved (12) Nausea and vomiting: resolved, only happened once the evening prior to admission (13) Hypokalemia: replaced IV (14) Migraine: diffuse pain Fioricet helps a little but headache returns, triggered by her GI issues will give Benadryl, SoluMedrol and Phenergan IV to see if she gets some relief Admission and Anticipated Discharge Date Admission Date: April 13, 2020 Subjective patient still says she feels "miserable" she had a bad headache, feels like a migraine, has to wait for RN to give her Fi oricet "if I was at home I could just take it, would not have to wait, it is frustrating" she is still having diarrhea discussed that we would try Benadryl, Phenergan and Solu Medrol for headache will add some imodium for diarrhea d/w GI, plan for EGD tomorrow d/w Dr. Roy Review of Systems Review of Systems: All systems reviewed & are unremarkable except as noted in Subjective Physical Exam Constitutional: WD/WN, vitals as above Eyes: PERRL, conjunctivae normal, anicteric sclerae ENMT: external ear and nose normal, oropharynx normal Neck: trachea midline, no thyromegaly Respiratory: normal respiratory effort, lungs clear to auscultation Cardiovascular: RRR, no murmur, no edema Gastrointestinal (Abdomen): Inspection/Auscultation: abdomen normal to inspection and normal bowel sounds; abdomen not distended Percussion/ Palpation: abdomen soft; abdomen nontender, no guarding and abdomen not rigid Musculoskeletal: no cyanosis or clubbing, extremities motor strength 5/5 Skin: no rashes, warm and dry Neurologic: patellar DTR's 2+ bilat, sensation intact and PERRL, EOMI, accommodation nl, no face palsy, no dysarthria Psychiatric: A+Ox3, euthymic affect Lymphatic: no cervical or axillary lymphadenopathy Results & Data Results & Data ([facility]) Vital Signs (Past 12 Hours) Vital Signs Temp Pulse Pulse Resp BP Pulse Ox 04/15/20 11:24 36.7 C 65 18 179/92 H 100 04/15/20 09:00 49 L 04/15/20 07:46 36.8 C 64 19 151/86 H 100 04/15/20 03:43 36.6 C 65 17 122/62 95 Laboratory Results Laboratory Results - last 24 hr 04/14/20 04/14/20 04/15/20 15:45 20:27 07:29 WBC RBC Hgb Hct MCV MCH MCHC RDW Std Deviation RDW Coeff of Valentina Plt Count MPV Immature Gran % (Auto) Neut % (Auto) Lymph % (Auto) Winston % (Auto) Eos % (Auto) Baso % (Auto) Neut # (Auto) Lymph # (Auto) Winston # (Auto) Eos # (Auto) Baso # (Auto) Immature Gran # (Auto) Sodium Potassium Chloride Carbon Dioxide Anion Gap BUN Creatinine Est Cr Clr Drug Dosing Est GFR ( Amer) Est GFR (Non-Af Amer) BUN/Creatinine Ratio Glucose POC Glucose 91 100 H 88 Calcium 04/15/20 04/15/20 04/15/20 08:16 08:16 11:23 WBC 3.43 L RBC 3.83 L Hgb 11.7 L Hct 35.5 L MCV 92.7 MCH 30.5 MCHC 33.0 RDW Std Deviation 45.8 RDW Coeff of Valentina 13.5 Plt Count 126 L MPV 9.3 Immature Gran % (Auto) 0.3 Neut % (Auto) 67.3 Lymph % (Auto) 14.6 Winston % (Auto) 14.9 Eos % (Auto) 2.6 Baso % (Auto) 0.3 Neut # (Auto) 2.31 Lymph # (Auto) 0.50 L Winston # (Auto) 0.51 Eos # (Auto) 0.09 Baso # (Auto) 0.01 Immature Gran # (Auto) 0.01 Sodium 140 Potassium 4.1 D Chloride 112 H Carbon Dioxide 22 Anion Gap 6.0 BUN 14 Creatinine 1.28 H Est Cr Clr Drug Dosing 46.6 Est GFR ( Amer) 52.2 Est GFR (Non-Af Amer) 45.1 BUN/Creatinine Ratio 10.9 Glucose 115 H POC Glucose 161 H Calcium 8.6 Microbiology 04/13/20 10:15 Urine,Clean Catch Urine Culture - Final No growth - less than 1,000 colonies/mL. 04/13/20 01:42 Blood Aerobic Blood Culture - Preliminary No growth in Aerobic bottle after 48 hours. 04/13/20 01:42 Blood Anaerobic Blood Culture - Preliminary No growth in Anaerobic bottle after 48 hours. 04/13/20 01:05 Blood Aerobic Blood Culture - Preliminary No growth in Aerobic bottle after 48 hours. 04/13/20 01:05 Blood Anaerobic Blood Culture - Preliminary No growth in Anaerobic bottle after 48 hours. 04/13/20 Unknown Stool Escherichia coli Shiga Toxins Test - Preliminary 04/13/20 Unknown Stool Stool Culture - Preliminary No Salmonella isolated to date, No Shigella isolated to date, No Campylobacter jejuni isolated to date. Medications Administered Current Inpatient Medications Acetaminophen (Tylenol) 1,000 mg PO Q6H PRN PRN Reason: Pain or Fever Stop: 05/13/20 06:33 Last Admin: 04/13/20 08:53 Dose: 1,000 mg Documented by: Acetaminophen/Butalbital/Caffeine (Fioricet) 1 tab PO Q4H PRN PRN Reason: Headache Stop: 05/14/20 10:44 Last Admin: 04/15/20 09:52 Dose: 1 tab Documented by: Al Hydrox/Mg Hydrox/Simethicone (Maalox) 15 ml PO Q4H PRN PRN Reason: Dyspepsia Stop: 05/13/20 06:33 Allopurinol (Zyloprim) 300 mg PO TuTa@[facility] Stop: 05/14/20 20:59 Last Admin: 04/14/20 20:50 Dose: 300 mg Documented by: Carvedilol (Coreg) 18.75 mg PO BID [facility] Stop: 05/13/20 08:59 Last Admin: 04/15/20 09:08 Dose: 18.75 mg Documented by: Dextrose (Dextrose 50%) 25 - 50 ml IV UD PRN; Protocol PRN Reason: Hypoglycemia Protocol Stop: 05/13/20 06:33 Estrogens Conjugated (Premarin) 0.625 mg PO We@0900 [facility] Stop: 05/15/20 08:59 Last Admin: 04/15/20 09:09 Dose: 0.625 mg Documented by: Fidaxomicin (Dificid) 200 mg PO BID [facility] Stop: 04/24/20 10:59 Last Admin: 04/15/20 09:52 Dose: 200 mg Documented by: Fluticasone Propionate (Flonase) 2 sprays NA DAILY PRN PRN Reason: SEASONAL ALLERGIES Stop: 05/13/20 06:33 Gabapentin (Neurontin) 100 mg PO QAM [facility] Stop: 05/13/20 08:59 Last Admin: 04/15/20 09:09 Dose: 100 mg Documented by: Gabapentin (Neurontin) 200 mg PO HS [facility] Stop: 05/13/20 20:59 Last Admin: 04/14/20 20:49 Dose: 200 mg Documented by: Glucagon (Glucagen) 1 mg SQ UD PRN; Protocol PRN Reason: Hypoglycemia Protocol Stop: 05/13/20 06:33 Glucose (Dex4 Glucose) 4 - 8 tabs PO UD PRN; Protocol PRN Reason: Hypoglycemia Protocol Stop: 05/13/20 06:33 Glucose (Glucose 40%) 15 - 30 gm PO UD PRN; Protocol PRN Reason: Hypoglycemia Protocol Stop: 05/13/20 06:33 Hydromorphone HCl (Dilaudid) 0.5 mg IV Q3H PRN PRN Reason: Pain Stop: 04/27/20 10:44 Last Admin: 04/15/20 09:06 Dose: 0.5 mg Documented by: Sodium Chloride (Nss 1000ml) 1,000 mls @ 80 mls/hr IV .[id number] [facility] Stop: 05/13/20 16:13 Last Admin: 04/15/20 14:19 Dose: 80 mls/hr Documented by: Insulin Aspart (Novolog Flexpen) 0 units SC ACHS [facility] Stop: 05/13/20 07:29 Last Admin: 04/15/20 14:19 Dose: 1 units Documented by: Loperamide HCl (Imodium) 2 mg PO Q6 PRN PRN Reason: Diarrhea Stop: 05/15/20 07:43 Last Admin: 04/15/20 09:57 Dose: 2 mg Documented by: Magnesium Hydroxide (Milk Of Magnesia) 30 ml PO Q12H PRN PRN Reason: Constipation Stop: 05/13/20 06:33 Miscellaneous (Carbohydrates For Hypoglycemia) 15 - 30 gm PO UD PRN PRN Reason: Hypoglycemia Protocol Stop: 05/13/20 06:33 Montelukast Sodium (Singulair) 10 mg PO [facility] Stop: 05/13/20 20:59 Last Admin: 04/14/20 20:50 Dose: 10 mg Documented by: Mycophenolate Sodium (Myfortic) 360 mg PO BID [facility] Stop: 05/13/20 14:29 Last Admin: 04/15/20 09:07 Dose: 360 mg Documented by: Ondansetron HCl (Zofran) 4 mg IV Q6H PRN PRN Reason: Nausea Stop: 05/13/20 06:33 Last Admin: 04/14/20 20:48 Dose: 4 mg Documented by: Pantoprazole Sodium (Protonix) 40 mg PO MoWeFr@[facility] Stop: 05/13/20 20:59 Last Admin: 04/13/20 21:40 Dose: 40 mg Documented by: Polysaccharide Iron Complex (Niferex-150 W/Vit C Cap) 150 mg PO [facility] Stop: 05/13/20 08:59 Last Admin: 04/15/20 09:09 Dose: 150 mg Documented by: Pramipexole Dihydrochloride (Mirapex) 0.125 mg PO [facility] Stop: 05/13/20 20:59 Last Admin: 04/14/20 20:48 Dose: 0.125 mg Documented by: Pred[facility]one (Prednisone) [facility] [place]: 05/13/20 08:59 Last Admin: 04/15/20 09:08 Dose: 5 mg Documented by: Ropinirole HCl (Requip) 0.25 mg PO [facility] Stop: 05/13/20 20:59 Last Admin: 04/14/20 20:50 Dose: 0.25 mg Documented by: Sirolimus (Sirolimus) 1 mg PO BID [facility] Stop: 05/13/20 08:59 Last Admin: 04/15/20 09:07 Dose: 1 mg Documented by: Tamsulosin HCl (Flomax) 0.4 mg PO BID [facility] Stop: 05/13/20 08:59 Last Admin: 04/15/20 09:08 Dose: 0.4 mg Documented by: Venlafaxine HCl (Effexor) 50 mg PO DAILY [facility] Stop: 05/13/20 08:59 Last Admin: 04/15/20 09:08 Dose: 50 mg Documented by: PG Care Time/CCT Total # of Minutes Spent Total Time Spent with Patient: Total time spent is greater than 50% in coordination of care (as documented) at patient's floor/unit and/or counseling patient: Coding Level of Care Code 09658 Subseq Hosp Care Lvl 3 Diagnoses Diarrhea R19.7 Fever R50.9 Renal transplant recipient Z94.0 Acid reflux disease K21.9 Depression F32.9 Diabetes mellitus E11.9 Hyperlipidemia E78.5 Hypertension I10 Restless legs syndrome G25.81 Immunosuppressed status D89.9 Hypomagnesemia E83.42 Nausea and vomiting R11.2 Hypokalemia E87.6 Migraine G43.811 Migraine type: other Status migrainosus presence: with status migrainosus Intractability: intractable (1) Migraine Migraine type: other Status migrainosus presence: with status migrainosus Intractability: intractable Qualified Code(s): G43.811 - Other migraine, intractable, with status migrainosus
[2020-04-15] MEDS: PRAMIPEXOLE DIHYDROCHLO 0.25 MG TAB PO SCH (19:58)
[2020-04-15] MEDS: ROPINIROLE HCL 0.25 MG TABLET PO SCH (20:00)
[2020-04-15] MEDS: PANTOprazole 40 MG TAB PO SCH (20:00)
[2020-04-15] MEDS: MONTELUKAST SODIUM 10 MG TABLET PO SCH (20:00)
[2020-04-16] MEDS: SODIUM CHLORIDE 0.9% 1000ML 1,000 ML IV SCH ×2 (00:07→03:00)
--- NOTE | 2020-04-16 01:07 | Communication Note ---
Date of Service: April 16, 2020 Headache complaint. Earlier today had success with cocktail of Solu-medrol 50mg IV, Benadryl 50mg IV and Promethazine 25mg IV. Reordered, this time without relief. No further medications indicated at this time. BP elevated most likely from Solu-medrol at 180/80, will resolve as drug wears off. Offered something for sleep as will be headache free when asleep. Solu-medrol might not have been a great choice to be given overnight from psychiatric side effects with insomnia/mood, will approach differently in the future. She is NPO for EGD tomorrow.
[2020-04-16 07:52] LABS: Hematocrit (blood only) 35.5 % (37-47); Hemoglobin 11.7 g/dL (12.0-16.0); Lymphocytes # (auto) 0.28 K/uL (1.2-3.4); Mean Corpuscular Hemoglobin 29.8 pg (25-34); Mean Corpuscular Volume 90.6 fL (80-100); Mean Platelet Volume 9.7 fL (7.4-10.4); Monocytes # (auto) 0.03 K/uL (0.11-0.59); Monocytes % (auto) 1.1 %; Neutrophils % (auto) 88.9 %; Platelet Count 135 K/uL (130-400); RDW Coefficient of Variation 13.3 % (11.5-14.5); RDW Standard Deviation 44.1 fL (36.4-46.3); Red Blood Count 3.92 M/uL (4.2-5.4); White Blood Count 2.81 K/uL (4.8-10.8)
--- NOTE | 2020-04-16 07:56 | Anesthesiology Consultation ---
Date of Service April 16, 2020 Assessment & Plan (1) Encounter for pre-operative examination: Chart Review Chart Review: Acceptable Risk for Surgery Consults Requested none ASA ASA3 Proposed Anesthesia Anesthesia Type: MAC Risk / Benefits Reviewed With: PT / POA / Parent / Guardian, Accepts Plan and Informed Consent Obtained History Surgery Operation Date: 04/14/20 18:00 Proposed Procedures p Colonoscopy Dr. Reagan Kirk MD Operation Date: 04/16/20 16:40 Proposed Procedures p Esophagogastroduodenoscopy Dr. Reagan Kirk MD Height/Weight Height: 5 ft 8 in Weight: 71.6 kg Allergies Allergy/AdvReac Type Severity Reaction Status Date / Time Iodinated Contrast Media Allergy Severe Hx Kidney Verified 04/16/20 12:16 Transplant [id number] Reductase Allergy Severe "PANCREATIT Verified 04/16/20 12:16 Inhibitor IS" sumatriptan Allergy Severe seizure Verified 04/16/20 12:16 hydrochlorothiazide Allergy Mild Unknown Verified 04/16/20 12:16 Sulfa (Sulfonamide Allergy Mild . Verified 04/16/20 12:16 Antibiotics) triamterene Allergy Mild Unknown Verified 04/16/20 12:16 atorvastatin Allergy Unknown ? Verified 04/16/20 12:16 doxycycline Allergy Unknown UNKNOWN Verified 04/16/20 12:16 levofloxacin Allergy Unknown joint pain Verified 04/16/20 12:16 adhesive AdvReac Unknown SKIN TEAR Verified 04/16/20 12:16 Cipro AdvReac Unknown FATIGUE Verified 01/20/18 21:00 ciprofloxacin AdvReac Unknown FATIGUE Verified 04/16/20 12:16 morphine AdvReac Unknown INEFFECTIVE Verified 04/16/20 12:16 Medications Home Medications Medication Instructions Recorded Confirmed Last Taken Levemir FlexTouch U-100 Insuln 9 units SUBCUT HS 09/01/18 04/13/20 04/12/20 allopurinol 300 mg PO 3XWK 09/01/18 04/13/20 04/11/20 pramipexole [Mirapex] 0.125 mg PO HS 09/01/18 04/13/20 07/24/19 montelukast 10 mg PO HS 03/26/19 04/13/20 04/12/20 tamsulosin 0.4 mg PO BID 03/26/19 04/13/20 04/12/20 prednisone 5 mg tablet 5 mg PO QAM #90 tab 05/02/19 04/13/20 07/24/19 azelastine 2 spray INTRANASAL Q12H PRN 07/10/19 04/13/20 Unknown fluticasone propionate [Flonase 2 spray INTRANASAL DAILY PRN 07/10/19 04/13/20 Unknown Allergy Relief] venlafaxine 50 mg tablet 50 mg PO DAILY #90 tab 10/08/19 04/13/20 04/12/20 loperamide 2 mg capsule 2 mg PO .COMPLEX cap 10/11/19 04/13/20 04/12/20 pantoprazole 40 mg tablet,delayed 40 mg PO 3XWK 10/11/19 04/13/20 04/10/20 release mycophenolate sodium 180 mg 360 mg PO BID #360 tab 11/04/19 04/13/20 04/12/20 tablet,delayed release ropinirole 0.25 mg tablet 0.25 mg PO HS #90 tab 01/27/20 04/13/20 Unknown fidaxomicin 200 mg tablet 200 mg PO Q12H #30 tab 03/16/20 04/13/20 Unknown carvedilol 6.25 mg tablet 18.75 mg PO BID #540 tab 03/18/20 04/13/20 04/12/20 PNV cmb#95-ferrous fumarate-FA 1 tab PO DAILY 04/13/20 04/13/20 04/12/20 [] vuokxixyag-jyrrhpymalaus-ckia 1 cap PO Q6H PRN 04/13/20 04/13/20 Unknown [Fioricet] conjugated estrogens [Premarin] 0.625 mg PO WK 04/13/20 04/13/20 04/08/20 gabapentin 100 mg PO UD 04/13/20 04/13/20 04/12/20 polysaccharide iron complex 150 mg PO QAM 04/13/20 04/13/20 04/12/20 [Ferrex 150] repaglinide 0.5 mg PO TID 04/13/20 04/13/20 Unknown sirolimus 1 mg PO BID 04/13/20 04/13/20 Unknown Active Medications Generic Name Dose Route Start Last Admin Trade Name Freq PRN Reason Stop Dose Admin Acetaminophen 1,000 mg 04/13/20 06:34 04/13/20 08:53 Tylenol PO 05/13/20 06:33 1,000 mg Q6H PRN Administration Pain or Fever Acetaminophen/Butalbital/Caffeine 1 tab 04/14/20 10:45 04/15/20 09:52 Fioricet PO 05/14/20 10:44 1 tab Q4H PRN Administration Headache Allopurinol 300 mg 04/14/20 21:00 04/14/20 20:50 Zyloprim PO 05/14/20 20:59 300 mg TuThSa@HS [facility] Administration Carvedilol 18.75 mg 04/13/20 09:00 04/16/20 09:50 Coreg PO 05/13/20 08:59 18.75 mg BID [facility] Administration Estrogens Conjugated 0.625 mg 04/15/20 09:00 04/15/20 09:09 Premarin PO 05/15/20 08:59 0.625 mg We@0900 [facility] Administration Fidaxomicin 200 mg 04/14/20 11:00 04/16/20 10:55 Dificid PO 04/24/20 10:59 200 mg BID [facility] Administration Gabapentin 100 mg 04/13/20 09:00 04/16/20 09:49 Neurontin PO 05/13/20 08:59 100 mg QAM [facility] Administration Gabapentin 200 mg 04/13/20 21:00 04/15/20 19:59 Neurontin PO 05/13/20 20:59 200 mg HS [facility] Administration Sodium Chloride 1,000 mls @ 80 mls/hr 04/13/20 16:14 04/16/20 03:00 Nss 1000ml IV 05/13/20 16:13 80 mls/hr .[id number] [facility] Administration Insulin Aspart 0 units 04/13/20 07:30 04/16/20 09:55 Novolog Flexpen SC 05/13/20 07:29 2 units ACHS [facility] Administration Loperamide HCl 2 mg 04/15/20 07:44 04/15/20 09:57 Imodium PO 05/15/20 07:43 2 mg Q6 PRN Administration Diarrhea Montelukast Sodium 10 mg 04/13/20 21:00 04/15/20 20:00 Singulair PO 05/13/20 20:59 10 mg HS [facility] Administration Mycophenolate Sodium 360 mg 04/13/20 14:30 04/16/20 09:50 Myfortic PO 05/13/20 14:29 360 mg BID [facility] Administration Ondansetron HCl 4 mg 04/13/20 06:34 04/14/20 20:48 Zofran IV 05/13/20 06:33 4 mg Q6H PRN Administration Nausea Pantoprazole Sodium 40 mg 04/13/20 21:00 04/15/20 20:00 Protonix PO 05/13/20 20:59 40 mg MoWeFr@[facility] Administration Polysaccharide Iron Complex 150 mg 04/13/20 09:00 04/16/20 09:49 Niferex-150 W/Vit C Cap PO 05/13/20 08:59 150 mg QAM [facility] Administration Pramipexole Dihydrochloride 0.125 mg 04/13/20 21:00 04/15/20 19:58 Mirapex PO 05/13/20 20:59 0.125 mg HS [facility] Administration Prednisone 5 mg 04/13/20 09:00 04/16/20 09:49 Prednisone PO 05/13/20 08:59 5 mg QAM [facility] Administration Ropinirole HCl 0.25 mg 04/13/20 21:00 04/15/20 20:00 Requip PO 05/13/20 20:59 0.25 mg HS [facility] Administration Sirolimus 1 mg 04/13/20 09:00 04/16/20 09:49 Sirolimus PO 05/13/20 08:59 1 mg BID [facility] Administration Tamsulosin HCl 0.4 mg 04/13/20 09:00 04/16/20 09:50 Flomax PO 05/13/20 08:59 0.4 mg BID [facility] Administration Venlafaxine HCl 50 mg 04/13/20 09:00 04/16/20 09:49 Effexor PO 05/13/20 08:59 50 mg DAILY [facility] Administration NPO Date Last Intake of Fluids: 04/14/20 Time Last Intake of Fluids: 10:00 Date Last Intake of Solids: 04/12/20 Time Last Intake of Solids: 18:00 Past Medical History Medical History Abdominal pain (Resolved) Acute gout (Inactive) Acute pyelonephritis (Resolved) Acute renal failure Allergic rhinitis due to allergen (Inactive) CKD (chronic kidney disease) stage 4, GFR 15-29 ml/min Clostridium difficile diarrhea (Resolved) Dehydration (Acute) Diarrhea of presumed infectious origin Fever HTN (hypertension) (Chronic) Immunosuppressed status Intractable vomiting (Resolved) Migraine Pancreatitis SBO (small bowel obstruction) (Resolved) Sepsis Sinus congestion (Inactive) SIRS (systemic inflammatory response syndrome) Unspecified asthma (Inactive) UTI (lower urinary tract infection) (Resolved 10/21/14) Exercise / Class Metabolic Activity II 4-5 Yardwork/Stairs/Walk up hill Past Family History Family History Other Family history non-contributory Past Surgical History Surgical History History of hernia surgery Hx of appendectomy Hx of cholecystectomy Kidney replaced by transplant (Inactive) x2. most recent 1 year ago Past Anesthesia History No Hx of Anesthesia Complications and No Family Hx of Anesthesia Complications History of PONV No Hx of PONV and No Hx of Motion Sickness Social History Smoking Status: Former smoker tobacco type: cigarettes Do You Dip or Chew Tobacco: No Smoking End Date: 1983 Hx Alcohol Use: Yes Alcohol type: beer alcohol intake frequency: holidays/special occasions only Hx Substance Use: No substance use type: prescription drug Last Used Substance: Hours (ago) Physical Exam Vital Signs Last Vital Signs Temp 98.1 F 04/16/20 12:17 Pulse 60 04/16/20 12:17 Resp 16 04/16/20 12:17 BP 176/86 H 04/16/20 12:17 Pulse Ox 99 04/16/20 12:17 ENMT Mouth: no dentition abnormality Thyromental Distance: > or= 3.5 Finger Breadths Mallampati Class: II Neck normal visual inspection Respiratory normal respiratory effort Auscultation: lungs clear to auscultation bilaterally Cardiovascular Rate/Rhythm: regular rate and regular rhythm Testing Laboratory Results 04/16/20 07:26 04/16/20 07:26 PT 10.5 Seconds (9.0-12.0) 04/13/20 01:05 INR 1.0 (0.9-1.1) 04/13/20 01:05 Urine Color Yellow 04/13/20 01:20 Urine Appearance Clear (Clear) 04/13/20 01:20 Urine pH 7.0 (4.5-7.5) 04/13/20 01:20 Ur Specific [place] 1.014 (1.000-1.030) 04/13/20 01:20 Urine Protein 2+ (Negative) H 04/13/20 01:20 Urine Glucose (UA) Negative (Negative) 04/13/20 01:20 Urine Ketones Negative (Negative) 04/13/20 01:20 Urine Nitrite Negative (Negative) 04/13/20 01:20 Ur Leukocyte Esterase Negative (Negative) 04/13/20 01:20 Urine WBC (Auto) 1-5 /hpf (0-5) 04/13/20 01:20 Urine RBC (Auto) 0-4 /hpf (0-4) 04/13/20 01:20 U Hyaline Cast (Auto) 0 /lpf (0-5) 04/13/20 01:20 U Epithel Cells (Auto) 20-30 /lpf (0-5) H 04/13/20 01:20 Urine Bacteria (Auto) Negative (Negative) 04/13/20 01:20 04/13/20 Unknown Escherichia coli Shiga Toxins Test - Final Stool Stool Culture - Final No Salmonella isolated, No Shigella isolated, No Campylobacter jejuni isolated. 04/13/20 10:15 Urine Culture - Final Urine,Clean Catch No growth - less than 1,000 colonies/mL. 04/13/20 01:42 Aerobic Blood Culture - Preliminary Blood No growth in Aerobic bottle after 48 hours. Anaerobic Blood Culture - Preliminary No growth in Anaerobic bottle after 48 hours. 04/13/20 01:05 Aerobic Blood Culture - Preliminary Blood No growth in Aerobic bottle after 48 hours. Anaerobic Blood Culture - Preliminary No growth in Anaerobic bottle after 48 hours. 04/16/20 04/16/20 11:24 07:39 POC Glucose 174 H 191 H Electrocardiogram Date: 07/25/19 Normal sinus rhythm with sinus arrhythmia, rate 92 bpm Normal ECG When compared with ECG of 26-JAN-2018 07:15, Vent. rate has increased BY 37 BPM T wave amplitude has decreased in Inferior leads Nonspecific T wave abnormality no longer evident in Lateral leads QT has shortened Confirmed by Gilbert Shankar ([id number]) on 07/25/2019 9:44:54 PM Chest X-Ray Date: 04/13/20 Findings: + NAD
[2020-04-16 08:19] LABS: BUN Creatinine Ratio 14.5 (10-20); Calcium 8.8 mg/dl (8.5-10.1); Creatinine Clr Calc Pharmacy 49.3 ml/min; Est GFR (African American) 55.9; Est GFR (Non-African American) 48.3; Potassium 4.4 mmol/L (3.5-5.1)
[2020-04-16] MEDS ORDERED: HYDROmorphone INJ 1 MG/ML SYRINGE IV PRN (09:28)
[2020-04-16] MEDS ORDERED: DiphenhydrAMINE HCL 50 MG/ML VIAL IV PRN (09:28)
[2020-04-16] MEDS: VENLAFAXINE HCL 50 MG TAB PO SCH (09:49)
[2020-04-16] MEDS: IRON POLYSACCHARIDE COMPLEX 150 MG CAPSULE PO SCH (09:49)
[2020-04-16] MEDS: SIROLIMUS 0.5 MG TABLET PO SCH (09:49)
[2020-04-16] MEDS: GABAPENTIN 100 MG CAP PO SCH (09:49)
[2020-04-16] MEDS: predniSONE 5 MG TAB PO SCH (09:49)
[2020-04-16] MEDS: TAMSULOSIN HCL 0.4 MG CAP PO SCH (09:50)
[2020-04-16] MEDS: MYCOPHENOLATE SODIUM 180 MG TAB PO SCH (09:50)
[2020-04-16] MEDS: carvediloL 12.5 MG TAB PO SCH (09:50)
[2020-04-16] MEDS: INSULIN ASPART 100 UNITS/ML 3 ML PEN SC SCH ×2 (09:55→11:30)
--- NOTE | 2020-04-16 09:59 | History & Physical Bridge Note ---
Date of Service April 16, 2020 History & Physical Bridge Note I have examined the patient, reviewed the History & Physical and in the interval since the performance of the History & Physical I have noted the following changes of clinical significance: diarrhea has abated after administration of Imodium last evening. Abdominal pain is improved. PE: A&Ox3. Lungs CTA bilaterally. Heart RRR. Abdomen soft, non-tender, normal bowel sounds. A/P:Diarrhea and abdominal pain 1. NPO. 2. Proceed with EGD today with Dr. Kirk. 3. Additional recommendations pending results of testing.
[2020-04-16] MEDS: FIDAXOMICIN 200 MG TAB PO SCH (10:55)
--- NOTE | 2020-04-16 10:57 | Nephrology Progress Note ---
Date of Service April 16, 2020 Assessment & Plan (1) Polycystic renal disease: (2) Kidney transplant recipient: Mrs. Bowling appears to be doing quite well. She is afebrile. Her symptoms of fever and diarrhea have resolved. She no longer has a headache. Stool cultures have all been unremarkable as have her blood cultures. Her colonoscopy showed only diverticulosis as would be expected. She is getting an EGD today because of concerns about the potential of her having celiac disease. P resumably, she will be discharged later this afternoon. She should be discharged on her usual medications. Her blood pressure is higher today but I suspect, when she is off of IV fluids and on her regular medications that her blood pressure will fall back to its normal range. Blood sugars have also been a bit high but they are well managed at home and her hemoglobin A1c has shown adequate glycemic control. I discussed the follow-up visit with me in about 2 weeks from her discharge. I have no other immediate suggestions. (3) Immunocompromised state: (4) Fever: (5) Diarrhea: Admission and Anticipated Discharge Date Admission Date: April 13, 2020 Subjective Mrs. Bowling says she is feeling quite well this morning. She is awaiting her EGD that will be done at about noon. Currently, she denies having any problems with diarrhea. She has not had a stool since yesterday. She denies abdominal pain or bloating. She has no nausea or vomiting. She did, apparently, eat a normal dinner last night and said that she had no difficulty. She has had no shaking chills or fevers. She has no symptoms of infection, rejection, volume overload or uremia. Apparently, discharge is planned for after her EGD today. Physical Exam Physical Exam: On physical examination, Mrs. Bowling appears relatively well and back to her baseline. However, her blood pressure is somewhat elevated today at 132/83. Her pulse is 64 and regular. Respiratory rate is 19 with a pulse ox of 99% on room air. She is afebrile (36.6 degrees. Her skin shows normal skin turgor. She has multiple scars from prior surgical procedures. There is no rash. She has no palpable lymphadenopathy. Her head is grossly normal. Eyes are grossly normal. She has no conjunctival icterus. Ears, nose, mouth and t hroat are unremarkable. Her oral mucous membranes are moist. Her neck is supple. There is no jugular venous distention, carotid bruit or thyromegaly. Her chest is clear to auscultation. Cardiac exam shows a regular rhythm. S1 and S2 were normal. There is a very soft systolic murmur at the base. Her abdomen shows scars from prior surgical procedures. It is nontender. She has normal bowel sounds. She has no peripheral edema. She has no lateralizing neurologic changes. Results & Data ([facility]) Vital Signs (Past 12 Hours) Vital Signs Temp Pulse Pulse Pulse Resp BP Pulse Ox 04/16/20 07:56 36.6 C 64 19 172/83 H 99 04/16/20 03:41 36.4 C L 62 17 154/84 H 96 04/16/20 00:45 61 04/16/20 00:00 36.7 C 56 L 17 187/85 H 97 Laboratory Results Laboratory Results - last 24 hr 04/15/20 04/15/20 04/15/20 11:23 16:29 20:07 WBC RBC Hgb Hct MCV MCH MCHC RDW Std Deviation RDW Coeff of Valentina Plt Count MPV Immature Gran % (Auto) Neut % (Auto) Lymph % (Auto) [place] % (Auto) Eos % (Auto) Baso % (Auto) Neut # (Auto) Lymph # (Auto) [place] # (Auto) Eos # (Auto) Baso # (Auto) Immature Gran # (Auto) Sodium Potassium Chloride Carbon Dioxide Anion Gap BUN Creatinine Est Cr Clr Drug Dosing Est GFR ( Amer) Est GFR (Non-Af Amer) BUN/Creatinine Ratio Glucose POC Glucose 161 H 198 H 228 H Calcium 04/16/20 04/16/20 04/16/20 07:26 07:26 07:39 WBC 2.81 L RBC 3.92 L Hgb 11.7 L Hct 35.5 L MCV 90.6 MCH 29.8 MCHC 33.0 RDW Std Deviation 44.1 RDW Coeff of Valentina 13.3 Plt Count 135 MPV 9.7 Immature Gran % (Auto) 0.0 Neut % (Auto) 88.9 Lymph % (Auto) 10.0 [place] % (Auto) 1.1 Eos % (Auto) 0.0 Baso % (Auto) 0.0 Neut # (Auto) 2.50 Lymph # (Auto) 0.28 L [place] # (Auto) 0.03 L Eos # (Auto) 0.00 Baso # (Auto) 0.00 Immature Gran # (Auto) 0.00 Sodium 139 Potassium 4.4 Chloride 113 H Carbon Dioxide 18 L Anion Gap 8.0 BUN 18 Creatinine 1.21 H Est Cr Clr Drug Dosing 49.3 Est GFR ( Amer) 55.9 Est GFR (Non-Af Amer) 48.3 BUN/Creatinine Ratio 14.5 Glucose 196 H POC Glucose 191 H Calcium 8.8 PG Care Time/CCT Total # of Minutes Spent Total Time Spent with Patient: Total time spent is greater than 50% in coordination of care (as documented) at patient's floor/unit and/or counseling patient: Coding Level of Care Code 21789 Subseq Hosp Care Lvl 3 Diagnoses Polycystic renal disease Q61.3 Kidney transplant recipient Z94.0 Immunocompromised state D89.9 Fever R50.9 Fever type: unspecified Diarrhea R19.7 (1) Fever Fever type: unspecified Qualified Code(s): R50.9 - Fever, unspecified
[2020-04-16] MEDS ORDERED: PROPOFOL IV EMULSION 10 MG/ML 20 ML VIAL IV ONE (12:49)
[2020-04-16] MEDS ORDERED: LIDOCAINE HCL 2% 2 ML VIAL/AMP(20MG/ML) INFIL ONE (12:49)
--- NOTE | 2020-04-16 12:56 | GI REPORT ---
Patient Name: Tia Bowling Procedure Date: 04/16/2020 12:36 PM Date of : 1960 Admit Type: Inpatient Age: 60 Gender: Female Attending MD: Sunil Kirk MD Procedure: Upper GI endoscopy Providers: Sunil Kirk MD Referring MD: John Langley Indications: Abdominal pain, Melena, Diarrhea Medicines: Monitored Anesthesia Care Complications: No immediate complications. Estimated blood loss: None. Estimated Blood Loss: Estimated blood loss: none. Procedure: Pre-Anesthesia Assessment: - Prior Anticoagulants: The patient has taken no previous anticoagulant or antiplatelet agents. - ASA Grade Assessment: III - A patient with severe systemic disease. After obtaining informed consent, the endoscope was passed under direct vision. Throughout the procedure, the patient's blood pressure, pulse, and oxygen saturations were monitored continuously. The Endoscope was introduced through the mouth, and advanced to the second part of duodenum. The upper GI endoscopy was accomplished without difficulty. The patient tolerated the procedure well. Findings: The examined esophagus was normal. A small hiatal hernia was present. Diffuse moderate inflammation characterized by erosions and erythema was found in the gastric antrum. Biopsies were taken with a cold forceps for Helicobacter pylori testing. Estimated blood loss: none. The duodenal bulb was normal. Diffuse mucosal flattening was found in the second portion of the duodenum. Biopsies for histology were taken with a cold forceps for evaluation of celiac disease. Estimated blood loss: none. --no evidence of active bleeding throughout entire exam. Impression: - Normal esophagus. - Small hiatal hernia. - Gastritis. Biopsied. - Normal duodenal bulb. - Flattened mucosa was found in the duodenum, suspicious for celiac disease. Biopsied. Recommendation: - [facility]. - Resume previous diet today. - Await pathology results. Sunil Kirk MD 04/16/2020 12:56:06 PM This report has been signed electronically. Note Initiated On: 04/16/2020 12:36 PM Number of Addenda: 0 I attest to the content of the Intraoperative Record and orders documented therein, exceptions below {[id number]}
--- NOTE | 2020-04-16 13:10 | Anesthesiology Progress Note ---
Date of Service April 16, 2020 Anesthesia Post Procedure Vital Signs Vital Signs: Temp Pulse Pulse Pulse Resp BP Pulse Ox 04/16/20 12:54 54 L 16 127/64 96 04/16/20 12:17 98.1 F 60 16 176/86 H 99 04/16/20 11:27 97.7 F 62 18 164/82 H 97 04/16/20 07:56 97.9 F 64 19 172/83 H 99 04/16/20 03:41 97.5 F L 62 17 154/84 H 96 04/16/20 00:45 61 04/16/20 00:00 98.1 F 56 L 17 187/85 H 97 04/15/20 19:24 97.9 F 65 18 170/79 H 93 04/15/20 16:07 97.7 F 53 L 18 137/90 96 04/15/20 16:00 52 L Transfer of Care Handoff Completed per policy Notes Mental Status: alert / awake / arousable and participated in evaluation Patient Amnestic to Procedure: Yes Nausea / Vomiting: adequately controlled Pain: adequately controlled Airway Patency, RR, SpO2: stable & adequate BP & HR: stable & adequate Hydration State: stable & adequate Anesthetic Complications: no major complications apparent and Pt Satisfied with anesthetic care
[2020-04-16 14:14] LABS: IgA Serum 39 mg/dL (70-320); Tis Trans IgA 1 U/mL
--- NOTE | 2020-04-16 14:42 | Discharge Summary ---
Date of Service April 16, 2020 Admission HPI Per Admitting Provider Tia Bowling is a 59 y/o female with a past medical history of renal transplant x2 (2000, 2018), chronically immunosuppressed, recurrent C. difficile colitis, HTN, DM 2, chronic anemia, restless leg, SBO, gout presents with fever. She notes that she had onset of 104 F fever tonight. She notes she wasn't able to sleep from not feeling well generally and felt feverish. She notes she did not take any Tylenol and headed to [facility] ED. She notes she has been experiencing diarrhea with loose stools for months which she notes didn't have any associated abdominal pain. However, she notes she has RLQ/Right groin pain to which she is a difficult historian with explanation. This has been going on for months and wasn't noted to have worsened for this presentation. She notes talking with her physician about this and etiologies were considered related to hip arthritis. Patient was concerned that mesh was bulging or having complication of from hernia mesh with operation about 2 years ago. She denies any dysuria, ma lordorous urine, dyspnea, chest pains. She notes nausea and vomiting started today too, which was worsened with food. She notes last BM was this morning of loose stool. Upon chart review there was note that she recently transitioned off a biologic because of concern of hair loss and was transitioned to Sirolimus. She notes being on Sirolimus for about one month. She denies any travel, travel outside the home, denies contact with COVID sick individuals. Also recent Rx showed Dificid 200mg PO q12h 15 day course started on 03.17, which patient doesn't mention. Principal Diagnosis Diarrhea due to suspected celiac disease Discharge Exam Constitutional WD/WN, vitals as above Eyes PERRL, conjunctivae normal, anicteric sclerae ENMT external ear and nose normal, oropharynx normal Neck trachea midline, no thyromegaly Respiratory normal respiratory effort, lungs clear to auscultation Cardiovascular RRR, no murmur, no edema Gastrointestinal (Abdomen) Inspection/Auscultation: abdomen normal to inspection and normal bowel sounds; abdomen not distended Percussion/Palpation: abdomen soft; abdomen nontender, no guarding and abdomen not rigid Musculoskeletal no cyanosis or clubbing, extremities motor strength 5/5 Skin no rashes, warm and dry Neurologic patellar DTR's 2+ bilat, sensation intact and PERRL, EOMI, accommodation nl, no face palsy, no dysarthria Psychiatric A+Ox3, euthymic affect Lymphatic no cervical or axillary lymphadenopathy Discharge Data Allergies Allergy/AdvReac Type Severity Reaction Status Date / Time Iodinated Contrast Media Allergy Severe Hx Kidney Verified 04/16/20 12:16 Transplant Zowxekf-Bci-Wak Reductase Allergy Severe "PANCREATIT Verified 04/16/20 12:16 Inhibitor IS" sumatriptan Allergy Severe seizure Verified 04/16/20 12:16 hydrochlorothiazide Allergy Mild Unknown Verified 04/16/20 12:16 Sulfa (Sulfonamide Allergy Mild . Verified 04/16/20 12:16 Antibiotics) triamterene Allergy Mild Unknown Verified 04/16/20 12:16 atorvastatin Allergy Unknown ? Verified 04/16/20 12:16 doxycycline Allergy Unknown UNKNOWN Verified 04/16/20 12:16 levofloxacin Allergy Unknown joint pain Verified 04/16/20 12:16 adhesive AdvReac Unknown SKIN TEAR Verified 04/16/20 12:16 Cipro AdvReac Unknown FATIGUE Verified 01/20/18 21:00 ciprofloxacin AdvReac Unknown FATIGUE Verified 04/16/20 12:16 morphine AdvReac Unknown INEFFECTIVE Verified 04/16/20 12:16 Consultations 04/13/20 03:02 ED Decision to Admit Stat 04/13/20 06:34 Consult Nephrology Routine 04/13/20 16:24 Consult Gastroenterology Routine Procedures Performed Operation Date: 04/14/20 18:00 Actual Procedures p Colonoscopy Biopsy Cytology(Not Applicable) - Sunil Kirk MD Operation Date: 04/16/20 16:40 Actual Procedures p EGD Biopsy Cytology - Sunil Kirk MD Ordered Studies 04/13/20 01:58 CT abd pelvis wo con [facility] Hospital Course (1) Diarrhea: ongoing for a month, but has a h/o diarrhea, specifically C diff C diff negative here stool cultures negative diarrhea triggered by eating colonoscopy on 04/14 shows diverticulosis, biopsies taken -- BENIGN COLONIC MUCOSA EGD on 04/16 shows gastritis but also flattening of villi in duodenum, characteristic of celiac disease stomach biopsy NEGATIVE for H pylor, shows gastritis duodenal biopsy shows no diagnostic abnormality at time of discharge, Dr. Kirk recommends gluten free diet patient is well educated on gluten free diet as her sister has gluten sensitivity will follow up with Dr. Roy and Dr. Kirk (2) Fever: unclear etiology, no growth on urine or blood cultures antibiotics stopped as there was no clear source having diarrhea, triggered by eating, C diff negative no further fever since admission (3) Renal transplant recipient: Cr is stable, improving daily, electrolytes show low K, replaced IV continue immunosuppression Dr. Roy following, can follow up with him in office as scheduled (4) Acid reflux disease: increase PPI to BID for a month due to gastritis no GERD symptoms (5) Depression: mood stable (6) Diabetes mellitus: diabetic diet Novolog sliding scale monitor for hypoglycemia, no episodes (7) Hyperlipidemia: (8) Hypertension: (9) Restless legs syndrome: (10) Immunosuppressed status: (11) Hypomagnesemia: replaced, resolved (12) Nausea and vomiting: resolved, only happened once the evening prior to admission (13) Hypokalemia: replaced IV (14) Migraine: diffuse pain Fioricet helps a little but headache returns, triggered by her GI issues some response to Benadryl, SoluMedrol and Phenergan IV she feels she will be able to better manage her migraine at home should improve with better sleep, eating, being able to take Fioricet right away instead of waiting on RN Total Time Total Time Spent Total Time Spent (In Minutes): 36 minutes Total Time Includes: Examination of the Patient, Discharge Planning, Medication Reconciliation and Communication With Other Providers (Dr Roy, Dr. Kirk) Discharge Plan Discharge Items Patient Disposition: Home - Self-Care Reason For Visit: FEVER Discharge Diagnosis: Gastritis Suspected Celiac disease Condition on Discharge: Good Goals: treat gastritis with Pantoprazole treat suspected celiac disease with gluten free diet Activity: Resume your previous activity Driving/Machine Use: Resume 1 day after discharge Weightbearing: Full weightbearing Non-emergency contact: Primary Care Provider and Logistics Analytics Manager Call non-emergency contact if: you have any medication questions and your symptoms worsen Follow-up/Referrals: Sunil Kirk MD [Physician] - (2-3 weeks) Shruthi Mcbride DO [Primary Care Provider] - (one week) Diet: Gluten Free Addtl Attending Provider Instructions: Medications: - PANTOPRAZOLE: increased to 40mg twice a day for 6 weeks to treat gastritis, can then resume either daily dosing or 3x a week, discuss with gastroenterology Diarrhea, dark stools, nausea/vomiting, fever thorough work up here in hospital colonoscopy only showed diverticulosis, biopsies taken, pending EGD today showed gastritis and some small erosions in stomach, flattening of the villi in duodenum suggestive of celiac disease biopsies taken of stomach for H pylori as well as duodenum to look for celiac sprue GI recommends GLUTEN FREE diet will temporarily increase Protonix to twice a day for 6 weeks, then resume prior dosing Pending Studies at Discharge: Yes Studies:: biopsies of colon and stomach and duodenum follow up with Dr. Mcbride, Dr. Kirk for results Stand-Alone Forms: [facility], Smoking Cessation Medications and DC Order Prescriptions: New pantoprazole 40 mg tablet,delayed release (DR/EC) 40 mg PO BID 90 Days Qty: 180 RF: 1 Continued prednisone 5 mg tablet 5 mg PO QAM Qty: 90 RF: 3 venlafaxine 50 mg tablet 50 mg PO DAILY Qty: 90 RF: 3 mycophenolate sodium [Myfortic] 180 mg tablet,delayed release (DR/EC) 360 mg PO BID Qty: 360 RF: 1 ropinirole [Requip] 0.25 mg tablet 0.25 mg PO HS Qty: 90 RF: 2 carvedilol 6.25 mg tablet 18.75 mg PO BID Qty: 540 RF: 3 loperamide 2 mg capsule 2 mg PO .COMPLEX RF: 0 allopurinol 300 mg Tablet 300 mg PO 3XWK RF: 0 Levemir FlexTouch U-100 Insuln 100 unit/mL (3 mL) Insulin Pen 9 units subcut HS RF: 0 pramipexole [Mirapex] 0.125 mg Tablet 0.125 mg PO HS RF: 0 tamsulosin 0.4 mg capsule 0.4 mg PO BID RF: 0 montelukast 10 mg tablet 10 mg PO HS RF: 0 azelastine 137 mcg (0.1 %) Aerosol,[place] 2 spray INTRANASAL Q12H PRN (Reason: Nasal Congestion) RF: 0 fluticasone propionate [Flonase Allergy Relief] 50 mcg/actuation [place],Suspension 2 spray INTRANASAL DAILY PRN (Reason: SEASONAL ALLERGIES) RF: 0 gabapentin 100 mg capsule 100 mg PO UD RF: 0 sirolimus 1 mg tablet 1 mg PO BID RF: 0 repaglinide 0.5 mg tablet 0.5 mg PO TID RF: 0 Premarin 0.625 mg Tablet 0.625 mg PO WK RF: 0 PNV cmb#95-ferrous fumarate-FA [] 28 mg iron- 800 mcg Tablet 1 tab PO DAILY RF: 0 polysaccharide iron complex [Ferrex 150] 150 mg iron Capsule 150 mg PO QAM RF: 0 zzbhkixzeg-bdrpdiuwjgiub-ayxz [Fioricet] 50-300-40 mg Capsule 1 cap PO Q6H PRN (Reason: Migraine Headache) RF: 0 Discontinued Dificid 200 mg tablet 200 mg PO Q12H Qty: 30 RF: 0 pantoprazole 40 mg tablet,delayed release (DR/EC) 40 mg PO 3XWK RF: 0 Discharge Orders: Discharge Order (Routine); Ordered 04/16/20 Ordered By: John Langley Admission Data Admit Date/Time: 04/13/20 05:39 Attending Provider: John Langley Admit Provider: Sadi Encinas Primary Care Provider: Shruthi Mcbride Other Providers: Castillo Honeycutt ; Mike Franks ; Sunil Kirk Other Interventions: Discharge Summary Assessment (RN) Last Done: 04/16/20 15:29 DC Date/Time DO NOT enter until pt leaves facility: 04/16/20 16:05 Supervising Physician Co-Signing Physician Notes I personally evaluated the patient and agree with the findings as documented by ELZA Gary Exam: abd: soft, moderate lower abdominal tenderness, nd proceed with EGD tomorrow, NPO post midnight tonight Coding Level of Care Code D/C Day Management >30 mins Diagnoses Diarrhea R19.7 Fever R50.9 Renal transplant recipient Z94.0 Acid reflux disease K21.9 Depression F32.9 Diabetes mellitus E11.9 Hyperlipidemia E78.5 Hypertension I10 Restless legs syndrome G25.81 Immunosuppressed status D89.9 Hypomagnesemia E83.42 Nausea and vomiting R11.2 Hypokalemia E87.6 Migraine G43.811 Intractability: intractable Migraine type: other Status migrainosus presence: with status migrainosus
[2020-04-17 14:08] LABS: Gliadin(Deminated)Ab, IgG 2 Units; Transglutam, Tissue IgG Reflex 1 U/mL
== END 2020-04-16 16:05 | disposition home or self-care (01) | DRG 392 ==
LOC: ED 00:04 → SUATTDRO 05:39 → 2E 05:39

== ENCOUNTER 2020-06-09 08:03 | Inpatient (IN) ==
--- NOTE | 2020-06-09 08:21 | ED Telehealth Note ---
Telehealth Telehealth Telehealth Options: 2-way audio and video For the duration of the visit, provider was performing the assessment from: A different facility than the patient After establishing a telemedicine visit, patient was: Patient was verified with two unique identifiers, Patient/authorized rep acknowledged consent and understanding and Gave permission to continue telehealth session Total Time Spent (minutes): 12 Impression & Plan Fever, UTI (urinary tract infection), Headache Note/Exam/Outcome Date of Service June 09, 2020 VIDEO TELEHEALTH ER VISIT Telehealth visit completed at 0819 on 06/09/20 CONSENT I conducted this virtual encounter from the Emergency Department via secure, live, [id number] video conference using [employer] with the patient. ANAYA PERSAUD was located at her home. Patient was alone. The risks and benefits of telemedicine were discussed with the patient and verbal consent was obtained. This telemedicine visit occurred in order to mitigate exposure risk during the COVID-19 pandemic. CHIEF COMPLAINT: Headache MEDICAL DECISION MAKING: The patient complained of a moderate headache. Her other complaints were a fever of 101.4 starting yesterday. She was having some chills. The patient had been prescribed amoxicillin for an enterococcus urinary infection which was diagnosed on May 23, just over 2 weeks ago. She finished her antibiotics. She is now having the same exact symptoms that she had with the infection. She has not had urinary complaints. No vomiting or diarrhea although, she has felt some nausea. The patient has no pain in the area of her transplanted kidney. Given the history of immunocompromise, given the renal transplant history, given the failure of outpatient treatment, I do think the patient deserves an ED visit and possible hospitalization for IV antibiotic therapy. She appears to have a persistent UTI untreated successfully as an outpatient. Prior medical records reviewed PLAN: Disposition: Recommended ED visit for possible hospitalization Condition: Good Prescriptions: none HPI: 60 F Patient was seen today virtually for a headache, fever, nausea and chills. She had a recent UTI diagnosis. She grew enterococcus which was susceptible to amoxicillin. She finished her amoxicillin prescription. She is immunocompromised with a history of renal transplant. Patient was initially feeling better after the the antibiotics but yesterday, her symptoms returned. She had a temperature of 101.4. She called the ED via telemedicine in order to see if she needed to be seen in the hospital or if outpatient management would be more appropriate. . ROS: See above HPI for pertinent positives & negatives. A total of 10 systems reviewed and were otherwise negative. PAST MEDICAL HISTORY:See Below PAST SURGICAL HISTORY:See Below Social history: See below HOME MEDICATIONS:See Below ALLERGIES:See Below PHYSICAL EXAMINATION: I have spent 12 with the patient where 50% or more was spent in counseling and coordination of care. ED Telehealth Outcome Visit Completed General General: + awake, + alert and + well appearing ENT ENT: + moist mucous membranes and + normal nose Eyes Eyes: + conjunctivae normal and no scleral icterus Neck Neck: + FROM Respiratory Respiratory: + normal respiratory effort and no dyspnea Muskuloskeletal Muskuloskeletal: + head normocephalic, atraumatic Neuro Neuro: + normal sensorium, + oriented x 3, + speech normal and no gross motor defecits Psych Psych: + appropriate and + normal mood Past Med/Surg History Medical History Abdominal pain Acute gout Acute pyelonephritis Acute renal failure Allergic rhinitis due to allergen CKD (chronic kidney disease) stage 4, GFR 15-29 ml/min Clostridium difficile diarrhea Dehydration Diarrhea of presumed infectious origin Fever HTN (hypertension) Immunosuppressed status Intractable vomiting Migraine Pancreatitis SBO (small bowel obstruction) Sepsis Sinus congestion SIRS (systemic inflammatory response syndrome) Unspecified asthma UTI (lower urinary tract infection) (10/21/14) Surgical History History of hernia surgery Hx of appendectomy Hx of cholecystectomy Kidney replaced by transplant x2. most recent 1 year ago Family History Other Family history non-contributory Social History Smoking Status: Never smoker Second Hand Exposure: No; Hx Alcohol Use: Yes Alcohol type: beer Hx Substance Use: No Preferred Language: Vincentian Communication Ability: Effective Lab Support Technician Required: No Beliefs That Will Affect Care: None marital status: Current Living Situation: Spouse Feels Safe at Home: Yes Allergies Allergies Allergy/AdvReac Type Severity Reaction Status Date / Time Iodinated Contrast Media Allergy Severe Hx Kidney Verified 05/23/20 14:07 Transplant Mxpudao-Amx-Oys Reductase Allergy Severe "PANCREATIT Verified 05/23/20 14:07 Inhibitor IS" sumatriptan Allergy Severe seizure Verified 05/23/20 14:07 hydrochlorothiazide Allergy Mild Unknown Verified 05/23/20 14:07 Sulfa (Sulfonamide Allergy Mild . Verified 05/23/20 14:07 Antibiotics) triamterene Allergy Mild Unknown Verified 05/23/20 14:07 atorvastatin Allergy Unknown ? Verified 05/23/20 14:07 doxycycline Allergy Unknown UNKNOWN Verified 05/23/20 14:07 levofloxacin Allergy Unknown joint pain Verified 05/23/20 14:07 adhesive AdvReac Unknown SKIN TEAR Verified 05/23/20 14:07 Cipro AdvReac Unknown FATIGUE Verified 01/20/18 21:00 ciprofloxacin AdvReac Unknown FATIGUE Verified 05/23/20 14:07 morphine AdvReac Unknown INEFFECTIVE Verified 05/23/20 14:07 Home Meds Home Medications Medication Instructions Recorded Confirmed Levemir FlexTouch U-100 Insuln 9 units SUBCUT HS 09/01/18 05/23/20 allopurinol 300 mg PO TUTHSA 09/01/18 05/23/20 tamsulosin 0.4 mg PO BID 03/26/19 05/23/20 azelastine 2 spray INTRANASAL Q12H PRN 07/10/19 05/23/20 fluticasone propionate [Flonase 2 spray INTRANASAL DAILY PRN 07/10/19 05/23/20 Allergy Relief] PNV cmb#95-ferrous fumarate-FA 1 tab PO QAM 04/13/20 05/23/20 [] Premarin 0.625 mg PO WE 04/13/20 05/23/20 zipsdgfvmd-nzoaeavpmasee-wjgl 1 cap PO Q6H PRN 04/13/20 05/23/20 [Fioricet] repaglinide 0.5 mg PO TID PRN 04/13/20 05/23/20 sirolimus 2 mg PO QAM 04/13/20 05/23/20 pantoprazole 40 mg PO QAM 05/23/20 05/23/20 venlafaxine 50 mg PO QAM 05/23/20 05/23/20 Previous Rx's Medication Instructions Recorded prednisone 5 mg tablet 5 mg PO QAM #90 tab 05/02/19 mycophenolate sodium 180 mg 360 mg PO BID #360 tab 11/04/19 tablet,delayed release ropinirole 0.25 mg tablet 0.25 mg PO HS #90 tab 01/27/20 carvedilol 6.25 mg tablet 18.75 mg PO BID #540 tab 03/18/20 venlafaxine 75 mg capsule,extended 75 mg PO DAILY #90 cap 05/18/20 release 24 hr Discharge Plan Visit Data Chief Complaint: Headache Stated Complaint: MIGRAINE,FEVER,CHILLS ED Provider: Bradley Mendoza Discharge Problem: Fever, UTI (urinary tract infection), Headache Forms Stand Alone Forms: [facility] Prescriptions Prescriptions: No Action prednisone 5 mg tablet 5 mg PO QAM Qty: 90 RF: 3 mycophenolate sodium [Myfortic] 180 mg tablet,delayed release (DR/EC) 360 mg PO BID Qty: 360 RF: 1 ropinirole [Requip] 0.25 mg tablet 0.25 mg PO HS Qty: 90 RF: 2 carvedilol 6.25 mg tablet 18.75 mg PO BID Qty: 540 RF: 3 venlafaxine 75 mg capsule,extended release 24hr 75 mg PO DAILY Qty: 90 RF: 1 allopurinol 300 mg Tablet 300 mg PO TUTHSA RF: 0 Levemir FlexTouch U-100 Insuln 100 unit/mL (3 mL) Insulin Pen 9 units subcut HS RF: 0 tamsulosin 0.4 mg capsule 0.4 mg PO BID RF: 0 venlafaxine 50 mg tablet 50 mg PO QAM RF: 0 pantoprazole 40 mg tablet,delayed release (DR/EC) 40 mg PO QAM RF: 0 azelastine 137 mcg (0.1 %) Aerosol,[place] 2 spray INTRANASAL Q12H PRN (Reason: Nasal Congestion) RF: 0 fluticasone propionate [Flonase Allergy Relief] 50 mcg/actuation [place],Suspension 2 spray INTRANASAL DAILY PRN (Reason: SEASONAL ALLERGIES) RF: 0 sirolimus 1 mg tablet 2 mg PO QAM RF: 0 repaglinide 0.5 mg tablet 0.5 mg PO TID PRN (Reason: bs) RF: 0 Premarin 0.625 mg Tablet 0.625 mg PO WE RF: 0 PNV cmb#95-ferrous fumarate-FA [] 28 mg iron- 800 mcg Tablet 1 tab PO QAM RF: 0 fmobcpimee-dknbloybjcqbz-qjai [Fioricet] 50-300-40 mg Capsule 1 cap PO Q6H PRN (Reason: Migraine Headache) RF: 0 Discharge Problem: Fever Qualifiers: Fever type: unspecified Qualified Code(s): R50.9 - Fever, unspecified UTI (urinary tract infection) Qualifiers: Urinary tract infection type: acute cystitis Hematuria presence: without hematuria Qualified Code(s): N30.00 - Acute cystitis without hematuria Headache Qualifiers: Headache type: unspecified Headache chronicity pattern: acute headache Intractability: not intractable Qualified Code(s): R51 - Headache
[2020-06-09] MEDS ORDERED: PIPERACILLIN/TAZOBACTAM 4.5 GM/120 ML BAG IV ONE (10:38)
[2020-06-09] MEDS ORDERED: HYDROmorphone INJ 0.5 MG/0.5 ML SYR IV STA (10:38)
[2020-06-09] MEDS ORDERED: DiphenhydrAMINE HCL 50 MG/ML VIAL IV STA (10:38)
[2020-06-09] MEDS ORDERED: ACETAMINOPHEN 500 MG TAB PO STA (10:38)
[2020-06-09] MEDS ORDERED: PIPERACILL/TAZOBAC CONSULT ACTIVE PRN ×2 (10:38→14:47)
[2020-06-09] MEDS ORDERED: SODIUM CHLORIDE 0.9% 1000ML 1,000 ML IV SCH (10:45)
--- NOTE | 2020-06-09 10:55 | Emergency Department Note ---
Impression & Plan Fever, UTI (urinary tract infection), Headache, Immunocompromised, Failure of outpatient treatment ED Provider Note NAME: ANAYA PERSAUD AGE: 60 SEX: F : 1960 ARRIVES VIA: Walk-In INFORMANT: [Patient] ED PROVIDER(S): [Bradley Mendoza MD] CHIEF COMPLAINT: Headache, chills HISTORY OF PRESENT ILLNESS: The patient is a 60-year-old female who was seen earlier today via telehealth. The patient was diagnosed with an enterococcus UTI on May 23. She was placed on amoxicillin which should have covered the infection. The patient was feeling better for a bit. Last evening, she developed all the same symptoms. She has had chills and a fever. Her temperature was up to 101. She has a headache that is a 6 on a scale of 1-10. She has had some nausea, no vomiting. No urinary complaints. She has no pain in the area of her transplanted kidney. There has been no cough or congestion or shortness of breath. She has no known coronavirus exposures. On the telehealth visit, given the failed outpatient treatment for her UTI, given her immunocompromise and history of renal transplant, a visit to the ER was felt warranted. REVIEW OF SYSTEMS: See HPI for pertinent positives and negatives. A total of ten systems were reviewed and were otherwise negative. PMHx/PSHx: See Below SOCIAL HISTORY: See Below. PHYSICAL EXAM: GENERAL: Patient is in no acute distress. HEENT: No acute trauma, normocephalic atraumatic, mucous membranes moist, no nasal congestion, no scleral icterus. NECK: No stridor, no adenopathy, no meningismus, trachea is midline. LUNGS: Clear to auscultation bilaterally, no wheeze, no rhonchi, breath sounds equal. HEART: Subtle systolic murmur, regular rate and rhythm ABDOMEN: Soft, nontender, bowel sounds positive, no hernias, no peritonitis. No tenderness in the right lower quadrant where her renal transplant is located. EXTREMITIES: No cyanosis or edema, full range of motion of all the joints without pain or difficulty, no signs for acute trauma. NEUROLOGIC: Oriented x 3, no acute motor or sensory deficits, no focal weakness. SKIN: No rash, no jaundice, no diaphoresis. DIFFERENTIAL DIAGNOSIS: Sepsis, UTI, pneumonia, metabolic, electrolyte abnormalities, coronavirus, immunocompromise, cardiac sources, intracerebral event, toxicologic, neurologic, as well as other pathologies. EMERGENCY DEPARTMENT COURSE/PROCEDURES: ECG: Indication was weakness. The ECG shows a sinus rhythm with some sinus arrhythmia. The rate is 78. The QTc is 428. There is no ST elevation, no PVCs. Continuous Cardiac Monitoring: An order was placed for continuous cardiac monitoring. The monitor shows a rate of 58 with sinus bradycardia. MEDICAL DECISION MAKING: There is no leukocytosis or concerning anemia. There is a normal platelet count. No coagulopathy. Creatinine is 1.4, this is baseline for the patient. No significant electrolyte abnormality in need of correction. Lactic acid level was not elevated making severe sepsis less likely. Liver enzyme testing returned unremarkable. Procalcitonin level was not elevated. ECG showed a sinus rhythm, no acute ischemia. Cardiac enzyme testing x1 is not consistent w ith acute cardiac injury. Urinalysis did not show any obvious infection. Urine culture is pending. Chest film did not show pneumonia or CHF. Urine culture from a few weeks ago did show enterococcus sensitive to penicillins. The patient received oral Tylenol, she was given IV Benadryl, IV Dilaudid, IV saline and IV Zosyn. She is currently resting comfortably. Her headache is improved. The patient is immunocompromised. She has a renal transplant. She presents with symptoms consistent with her previous UTI diagnosed a few weeks ago. I am concerned that she has not been fully treated. I am worried about the possibility of a pyelonephritis. I do think a hospital stay for IV antibiotic therapy is warranted. I did speak to the patient and complex case manager. The on-call hospitalist was consulted. Past Med/Surg History Medical History Abdominal pain Acute gout Acute pyelonephritis Acute renal failure Allergic rhinitis due to allergen CKD (chronic kidney disease) stage 4, GFR 15-29 ml/min Clostridium difficile diarrhea Dehydration Diarrhea of presumed infectious origin Fever HTN (hypertension) Immunosuppressed status Intractable vomiting Migraine Pancreatitis SBO (small bowel obstruction) Sepsis Sinus congestion SIRS (systemic inflammatory response syndrome) Unspecified asthma UTI (lower urinary tract infection) (10/21/14) Surgical History History of hernia surgery Hx of appendectomy Hx of cholecystectomy Kidney replaced by transplant x2. most recent 1 year ago Family History Other Family history non-contributory Social History Smoking Status: Never smoker Second Hand Exposure: No; Hx Alcohol Use: Yes Alcohol type: beer Hx Substance Use: No Preferred Language: Romanian Communication Ability: Effective Fitting Room Checker Required: No Beliefs That Will Affect Care: None marital status: Current Living Situation: Spouse Feels Safe at Home: Yes Allergies Allergies Allergy/AdvReac Type Severity Reaction Status Date / Time Iodinated Contrast Media Allergy Severe Hx Kidney Verified 06/09/20 10:06 Transplant Lgfyjka-Bto-Zmq Reductase Allergy Severe "PANCREATIT Verified 06/09/20 10:06 Inhibitor IS" sumatriptan Allergy Severe seizure Verified 06/09/20 10:06 hydrochlorothiazide Allergy Mild Unknown Verified 06/09/20 10:06 Sulfa (Sulfonamide Allergy Mild . Verified 06/09/20 10:06 Antibiotics) triamterene Allergy Mild Unknown Verified 06/09/20 10:06 atorvastatin Allergy Unknown ? Verified 06/09/20 10:06 doxycycline Allergy Unknown UNKNOWN Verified 06/09/20 10:06 levofloxacin Allergy Unknown joint pain Verified 06/09/20 10:06 adhesive AdvReac Unknown SKIN TEAR Verified 06/09/20 10:06 Cipro AdvReac Unknown FATIGUE Verified 01/20/18 21:00 ciprofloxacin AdvReac Unknown FATIGUE Verified 06/09/20 10:06 morphine AdvReac Unknown INEFFECTIVE Verified 06/09/20 10:06 Home Meds Home Medications Medication Instructions Recorded Confirmed Levemir FlexTouch U-100 Insuln 9 units SUBCUT HS 09/01/18 06/09/20 allopurinol 300 mg PO TUTHSA 09/01/18 06/09/20 tamsulosin 0.4 mg PO BID 03/26/19 06/09/20 azelastine 2 spray INTRANASAL Q12H PRN 07/10/19 06/09/20 fluticasone propionate [Flonase 2 spray INTRANASAL DAILY PRN 07/10/19 06/09/20 Allergy Relief] PNV cmb#95-ferrous fumarate-FA 1 tab PO QAM 04/13/20 06/09/20 [] Premarin 0.625 mg PO WE 04/13/20 06/09/20 svwhhuczkj-zlbcfqkhbykww-uxxq 1 cap PO Q6H PRN 04/13/20 06/09/20 [Fioricet] repaglinide 0.5 mg PO TID PRN 04/13/20 06/09/20 sirolimus 2 mg PO QAM 04/13/20 06/09/20 pantoprazole 40 mg PO QAM 05/23/20 06/09/20 venlafaxine 75 mg PO QAM 06/09/20 06/09/20 Previous Rx's Medication Instructions Recorded prednisone 5 mg tablet 5 mg PO QAM #90 tab 05/02/19 mycophenolate sodium 180 mg 360 mg PO BID #360 tab 11/04/19 tablet,delayed release ropinirole 0.25 mg tablet 0.25 mg PO HS #90 tab 01/27/20 carvedilol 6.25 mg tablet 18.75 mg PO BID #540 tab 03/18/20 Results & Data (ED) Vital Signs Vital Signs - 24 hr 06/09/20 09:34 06/09/20 10:00 06/09/20 10:45 Temperature 37.9 C H Temperature Source Oral Pulse Rate 82 75 Pulse Rate from SpO2 Sensor Respiratory Rate 20 18 Respiratory Effort / Characteristics Non-Labored Respiratory Depth Normal Blood Pressure 156/79 H 151/71 H Blood Pressure Mean 104 97 Pulse Oximetry 97 95 Oxygen Delivery Method Room Air Room Air Sepsis Recent Fever Within 48 Hours No Sepsis New/Unexplained Change in Mental Status N/A Sepsis Action Taken by Nursing No Action Required 06/09/20 11:30 06/09/20 12:00 06/09/20 12:27 Temperature 37.4 C Temperature Source Oral Pulse Rate 86 64 Pulse Rate from SpO2 Sensor 85 64 Respiratory Rate 15 16 Respiratory Effort / Characteristics Respiratory Depth Blood Pressure 139/81 139/70 Blood Pressure Mean 86 88 Pulse Oximetry 94 96 Oxygen Delivery Method Sepsis Recent Fever Within 48 Hours Sepsis New/Unexplained Change in Mental Status Sepsis Action Taken by Nursing 06/09/20 12:30 06/09/20 13:00 06/09/20 13:30 Temperature Temperature Source Pulse Rate 61 59 L 58 L Pulse Rate from SpO2 Sensor 61 59 L 58 L Respiratory Rate 14 15 14 Respiratory Effort / Characteristics Respiratory Depth Blood Pressure 127/68 127/63 120/63 Blood Pressure Mean 85 79 73 Pulse Oximetry 94 92 93 Oxygen Delivery Method Sepsis Recent Fever Within 48 Hours Sepsis New/Unexplained Change in Mental Status Sepsis Action Taken by Correction Medications Current Medication List: was personally reviewed by me Laboratory Data Attestation: I reviewed the patient's lab results. Result diagrams: 06/09/20 11:08 06/09/20 11:08 Lab Results 06/09/20 06/09/20 06/09/20 Range/Units 10:05 11:08 11:08 WBC 6.80 (4.8-10.8) K/uL RBC 3.95 L (4.2-5.4) M/uL Hgb 11.5 L (12.0-16.0) g/dL Hct 35.6 L (37-47) % MCV 90.1 (80-100) fL MCH 29.1 (25-34) pg MCHC 32.3 (32-36) g/dL RDW Std Deviation 48.6 H (36.4-46.3) fL RDW Coeff of Valentina 14.7 H (11.5-14.5) % Plt Count 152 (130-400) K/uL MPV 9.7 (7.4-10.4) fL Immature Gran % (Auto) 0.1 % Neut % (Auto) 81.8 % Lymph % (Auto) 6.2 % [place] % (Auto) 11.2 % Eos % (Auto) 0.6 % Baso % (Auto) 0.1 % Neut # (Auto) 5.56 (1.4-6.5) K/uL Lymph # (Auto) 0.42 L (1.2-3.4) K/uL [place] # (Auto) 0.76 H (0.11-0.59) K/uL Eos # (Auto) 0.04 (0-0.5) K/uL Baso # (Auto) 0.01 (0-0.2) K/uL Immature Gran # (Auto) 0.01 (0.00-0.02) K/uL PT 10.3 (9.0-12.0) Seconds INR 1.0 (0.9-1.1) APTT 24.2 (21.0-31.0) Seconds PTT Ratio 0.9 Sodium (136-145) mmol/L Potassium (3.5-5.1) mmol/L Chloride (98-107) mmol/L Carbon Dioxide (21-32) mmol/L Anion Gap (3-11) BUN (7-18) mg/dl Creatinine (0.6-1.2) mg/dl Est Cr Clr Drug Dosing ml/min Est GFR ( Amer) Est GFR (Non-Af Amer) BUN/Creatinine Ratio (10-20) Glucose (70-99) mg/dl Lactate (0.4-2.0) mmol/L Calcium (8.5-10.1) mg/dl Magnesium (1.8-2.4) mg/dl Total Bilirubin (0.2-1) mg/dl AST (15-37) U/L ALT (12-78) U/L Alkaline Phosphatase (45-117) U/L Troponin I (0-0.045) ng/ml Total Protein (6.4-8.2) gm/dl Albumin (3.4-5.0) gm/dl Globulin (2.5-4.0) gm/dl Albumin/Globulin Ratio (0.9-2) Procalcitonin (0-0.5) ng/ml Specimen Hemolysis Urine Color Yellow Urine Appearance Clear (Clear) Urine pH 5.5 (4.5-7.5) Ur Specific [place] 1.018 (1.000-1.030) Urine Protein 1+ H (Negative) Urine Glucose (UA) Negative (Negative) Urine Ketones Negative (Negative) Urine Blood Negative (Negative) Urine Nitrite Negative (Negative) Urine Bilirubin Negative (Negative) Urine Urobilinogen Negative (Negative) Ur Leukocyte Esterase Negative (Negative) Urine WBC (Auto) 1-5 (0-5) /hpf Urine RBC (Auto) 0-4 (0-4) /hpf U Hyaline Cast (Auto) 1-5 (0-5) /lpf U Epithel Cells (Auto) >30 H (0-5) /lpf Urine Bacteria (Auto) Negative (Negative) 06/09/20 06/09/20 06/09/20 Range/Units 11:08 11:08 11:08 WBC (4.8-10.8) K/uL RBC (4.2-5.4) M/uL Hgb (12.0-16.0) g/dL Hct (37-47) % MCV (80-100) fL MCH (25-34) pg MCHC (32-36) g/dL RDW Std Deviation (36.4-46.3) fL RDW Coeff of Valentina (11.5-14.5) % Plt Count (130-400) K/uL MPV (7.4-10.4) fL Immature Gran % (Auto) % Neut % (Auto) % Lymph % (Auto) % [place] % (Auto) % Eos % (Auto) % Baso % (Auto) % Neut # (Auto) (1.4-6.5) K/uL Lymph # (Auto) (1.2-3.4) K/uL [place] # (Auto) (0.11-0.59) K/uL Eos # (Auto) (0-0.5) K/uL Baso # (Auto) (0-0.2) K/uL Immature Gran # (Auto) (0.00-0.02) K/uL PT (9.0-12.0) Seconds INR (0.9-1.1) APTT (21.0-31.0) Seconds PTT Ratio Sodium 136 (136-145) mmol/L Potassium 3.7 (3.5-5.1) mmol/L Chloride 102 (98-107) mmol/L Carbon Dioxide 26 (21-32) mmol/L Anion Gap 8.0 (3-11) BUN 17 (7-18) mg/dl Creatinine 1.41 H (0.6-1.2) mg/dl Est Cr Clr Drug Dosing 42.3 ml/min Est GFR ( Amer) 46.5 Est GFR (Non-Af Amer) 40.1 BUN/Creatinine Ratio 12.2 (10-20) Glucose 124 H (70-99) mg/dl Lactate 0.3 L (0.4-2.0) mmol/L Calcium 8.9 (8.5-10.1) mg/dl Magnesium 2.0 (1.8-2.4) mg/dl Total Bilirubin 0.8 (0.2-1) mg/dl AST 29 (15-37) U/L ALT 24 (12-78) U/L Alkaline Phosphatase 80 (45-117) U/L Troponin I < 0.015 (0-0.045) ng/ml Total Protein 7.0 (6.4-8.2) gm/dl Albumin 3.2 L (3.4-5.0) gm/dl Globulin 3.8 (2.5-4.0) gm/dl Albumin/Globulin Ratio 0.8 L (0.9-2) Procalcitonin 0.14 (0-0.5) ng/ml Specimen Hemolysis Urine Color Urine Appearance (Clear) Urine pH (4.5-7.5) Ur Specific [place] (1.000-1.030) Urine Protein (Negative) Urine Glucose (UA) (Negative) Urine Ketones (Negative) Urine Blood (Negative) Urine Nitrite (Negative) Urine Bilirubin (Negative) Urine Urobilinogen (Negative) Ur Leukocyte Esterase (Negative) Urine WBC (Auto) (0-5) /hpf Urine RBC (Auto) (0-4) /hpf U Hyaline Cast (Auto) (0-5) /lpf U Epithel Cells (Auto) (0-5) /lpf Urine Bacteria (Auto) (Negative) Administered Medications Discontinued Medications Acetaminophen (Acetaminophen 500 Mg Tab) 1,000 mg PO NOW STA Stop: 06/09/20 10:39 Last Admin: 06/09/20 11:24 Dose: 1,000 mg Documented by: [id number] Diphenhydramine HCl (Diphenhydramine Hcl 50 Mg/Ml Vial) 25 mg IV NOW STA Stop: 06/09/20 10:39 Last Admin: 06/09/20 11:30 Dose: Not Given Documented by: [id number] Hydromorphone HCl (Hydromorphone Inj 0.5 Mg/0.5 Ml Syr) 0.5 mg IV NOW STA Stop: 06/09/20 10:39 Last Admin: 06/09/20 11:24 Dose: 0.5 mg Documented by: [id number] Sodium Chloride (Nss 1000ml) 1,000 mls @ 999 mls/hr IV .Q1H1M RADHA Stop: 06/09/20 11:45 Last Infusion: 06/09/20 13:48 Dose: 0 mls/hr Documented by: [id number] Admin: 06/09/20 11:25 Dose: 999 mls/hr Documented by: [id number] Piperacillin Sod/Tazobactam Sod (Zosyn) 4.5 gm in 120 mls @ 240 mls/hr IV NOW ONE Stop: 06/09/20 11:07 Last Infusion: 06/09/20 12:05 Dose: 0 mls/hr Documented by: [id number] Admin: 06/09/20 11:25 Dose: 240 mls/hr Documented by: [id number] Imaging Data Radiologist's Impression: SINGLE VIEW CHEST CLINICAL HISTORY: Sepsis. FINDINGS: An AP, portable, upright chest radiograph is compared to study dated 04/13/2020. The examination is degraded by portable technique and patient rotation. Calcified breast implants project over the lung bases. The cardiomediastinal silhouette is unremarkable. There is bibasilar scarring/atelectasis. The lungs and pleural spaces are otherwise clear. No pneumothorax is seen. The skeletal structures are osteopenic. The bony thorax is grossly intact. IMPRESSION: No active disease in the chest. Blood Pressure Blood Pressure Findings: Elevated blood pressure Blood Pressure Disposition: further management by hospitalist Discharge Plan Visit Data Chief Complaint: Headache Stated Complaint: MIGRAINE,FEVER,CHILLS ED Provider: Bradley Mendoza Discharge Problem: Fever, UTI (urinary tract infection), Headache, Immunocompromised, Failure of outpatient treatment Patient Disposition: Admitted As Inpatient Condition: Good Forms Stand Alone Forms: [facility] Prescriptions Prescriptions: No Action prednisone 5 mg tablet 5 mg PO QAM Qty: 90 RF: 3 mycophenolate sodium [Myfortic] 180 mg tablet,delayed release (DR/EC) 360 mg PO BID Qty: 360 RF: 1 ropinirole [Requip] 0.25 mg tablet 0.25 mg PO HS Qty: 90 RF: 2 carvedilol 6.25 mg tablet 18.75 mg PO BID Qty: 540 RF: 3 allopurinol 300 mg Tablet 300 mg PO TUTHSA RF: 0 Levemir FlexTouch U-100 Insuln 100 unit/mL (3 mL) Insulin Pen 9 units subcut HS RF: 0 tamsulosin 0.4 mg capsule 0.4 mg PO BID RF: 0 pantoprazole 40 mg tablet,delayed release (DR/EC) 40 mg PO QAM RF: 0 azelastine 137 mcg (0.1 %) Aerosol,[place] 2 spray INTRANASAL Q12H PRN (Reason: Nasal Congestion) RF: 0 fluticasone propionate [Flonase Allergy Relief] 50 mcg/actuation [place],Suspension 2 spray INTRANASAL DAILY PRN (Reason: SEASONAL ALLERGIES) RF: 0 sirolimus 1 mg tablet 2 mg PO QAM RF: 0 repaglinide 0.5 mg tablet 0.5 mg PO TID PRN (Reason: bs) RF: 0 Premarin 0.625 mg Tablet 0.625 mg PO WE RF: 0 PNV cmb#95-ferrous fumarate-FA [] 28 mg iron- 800 mcg Tablet 1 tab PO QAM RF: 0 dmxehfqmxf-qmvvppgpnzwzq-epwh [Fioricet] 50-300-40 mg Capsule 1 cap PO Q6H PRN (Reason: Migraine Headache) RF: 0 venlafaxine 75 mg capsule,extended release 24hr 75 mg PO QAM RF: 0 Referrals Referrals: Shruthi Mcbride DO [Primary Care Provider] - Discharge Problem: Fever Qualifiers: Fever type: unspecified Qualified Code(s): R50.9 - Fever, unspecified UTI (urinary tract infection) Qualifiers: Urinary tract infection type: acute cystitis Hematuria presence: without hematuria Qualified Code(s): N30.00 - Acute cystitis without hematuria Headache Qualifiers: Headache type: unspecified Headache chronicity pattern: acute headache Intractability: not intractable Qualified Code(s): R51 - Headache
[2020-06-09 10:57] LABS: Appearance Urine Clear (Clear); Bacteria Urine Automated Negative (Negative); Bilirubin Urine Negative (Negative); Blood Urine Negative (Negative); Color Urine Yellow; Epithelial Cell Urine Auto >30 /lpf (0-5); Glucose Urine UA Negative (Negative); Ketones Urine Negative (Negative); Leukocyte Esterase Urine Negative (Negative); Nitrite Urine Negative (Negative); Protein Urine 1+ (Negative); RBC Urine Automated 0-4 /hpf (0-4); Specific Gravity Urine 1.018 (1.000-1.030); Urobilinogen Urine Negative (Negative); pH Urine 5.5 (4.5-7.5)
--- NOTE | 2020-06-09 10:59 | XRay Report ---
SINGLE VIEW CHEST CLINICAL HISTORY: Sepsis. FINDINGS: An AP, portable, upright chest radiograph is compared to study dated 04/13/2020. The examina tion is degraded by portable technique and patient rotation. Calcified breast implants project over t he lung bases. The cardiomediastinal silhouette is unremarkable. There is bibasilar scarring/atelecta sis. The lungs and pleural spaces are otherwise clear. No pneumothorax is seen. The skeletal structur es are osteopenic. The bony thorax is grossly intact. IMPRESSION: No active disease in the chest. ACT 112: Negative or not required by law. Electronically signed by: Bradley Rivas M.D. 06/09/2020 10:57 AM
[2020-06-09 11:24] LABS: Basophils # (auto) 0.01 K/uL (0-0.2); Basophils % (auto) 0.1 %; Eosinophils # (auto) 0.04 K/uL (0-0.5); Eosinophils % (auto) 0.6 %; Hematocrit (blood only) 35.6 % (37-47); Hemoglobin 11.5 g/dL (12.0-16.0); Immature Granulocytes # (auto) 0.01 K/uL (0.00-0.02); Immature Granulocytes % (auto) 0.1 %; Lymphocytes # (auto) 0.42 K/uL (1.2-3.4); Lymphocytes % (auto) 6.2 %; Mean Corpuscular Hemoglobin 29.1 pg (25-34); Mean Corpuscular Hgb Conc 32.3 g/dL (32-36); Mean Corpuscular Volume 90.1 fL (80-100); Mean Platelet Volume 9.7 fL (7.4-10.4); Monocytes # (auto) 0.76 K/uL (0.11-0.59); Monocytes % (auto) 11.2 %; Neutrophils # (auto) 5.56 K/uL (1.4-6.5); Neutrophils % (auto) 81.8 %; Platelet Count 152 K/uL (130-400); RDW Coefficient of Variation 14.7 % (11.5-14.5); RDW Standard Deviation 48.6 fL (36.4-46.3); Red Blood Count 3.95 M/uL (4.2-5.4)
[2020-06-09 11:35] LABS: Partial Thromboplastin Ratio 0.9; Partial Thromboplastin Time 24.2 Seconds (21.0-31.0); Prothrombin Time 10.3 Seconds (9.0-12.0)
[2020-06-09 11:46] LABS: Alanine Aminotransferase 24 U/L (12-78); Albumin Level 3.2 gm/dl (3.4-5.0); Aspartate Aminotransferase 29 U/L (15-37); BUN Creatinine Ratio 12.2 (10-20); Blood Urea Nitrogen 17 mg/dl (7-18); Calcium 8.9 mg/dl (8.5-10.1); Carbon Dioxide 26 mmol/L (21-32); Chloride 102 mmol/L (98-107); Creatinine Clr Calc Pharmacy 42.3 ml/min; Est GFR (African American) 46.5; Est GFR (Non-African American) 40.1; Glucose 124 mg/dl (70-99); Potassium 3.7 mmol/L (3.5-5.1); Sodium 136 mmol/L (136-145)
[2020-06-09 11:51] LABS: Albumin Globulin Ratio 0.8 (0.9-2); Alkaline Phosphatase 80 U/L (45-117); Bilirubin,Total 0.8 mg/dl (0.2-1); Globulin 3.8 gm/dl (2.5-4.0); Troponin I < 0.015 ng/ml (0-0.045)
--- NOTE | 2020-06-09 12:20 | History & Physical Report ---
Date of Service June 09, 2020 Assessment & Plan (1) UTI (urinary tract infection): Prior Enterococcus faecalis with failed outpatient treatment with 10 days amoxicillin. Continue IV Zosyn pending urine and blood culture results. Consult nephrology given rental transplant recipient. (2) Fever: As above (3) Tension headache: Different from her usual migraine headache. Associated neck pain would santiago ggest she is having tension headaches rather than her usual migraines. Acetaminophen PRN, Encourage neck stretches. Heating pad PRN. (4) Gastritis: Continue pantoprazole 40mg PO daily (5) Non-celiac gluten sensitivity: Gluten-free diet (6) Immunocompromised state: Continue chronic suppressive agents with prednisone 5 mg p.o. daily, mycophenolate 360 mg p.o. twice daily, sirolimus 2 mg p.o. every morning. (7) Renal transplant recipient: Consult nephrology as above. (8) Restless legs syndrome: Continue Requip 0.25 mg p.o. at bedtime. (9) HTN (hypertension): Continue carvedilol 18.75 mg p.o. twice daily. (10) Recurrent Clostridium difficile diarrhea: Dificid 200 mg p.o. daily Admission and Anticipated Discharge Date Admission Date: June 09, 2020 History of Present Illness Chief Complaint: Headache, fever Primary Care Provider: Shruthi Mcbride DO Tia Bowling is a 60-year-old renal transplant recipient who presents to the ER with headache, fever. She was recently treated for a urinary tract infection with similar symptoms. She denies any dysuria, urinary frequency, change in odor/color -however this is similar to prior UTIs she has had in the past (although ER note from May 23 does note she was having dysuria at that time). Urine culture from ER visit on May 23 grew Enterococcus faecalis resistant to tetracycline but otherwise pansensitive. She was initially prescribed cefdinir in the emergency room however this was switched on May 25 to amoxicillin for appropriate coverage with 10 days duration. She reports finishing amoxicillin 2 days ago with return of her headache and chills the day after this. Fever last night 101.4 degrees Fahrenheit. Her headache is frontal and sometimes in her neck. She has a significant history of migraines but reports no current headaches since March have been different than her usual left-sided migraine. She notes her cat has been sleeping above her head at night and wonders whether this is been giving her more neck strain. She has a notable history of recurrent C. difficile colitis requiring a stool transplant in the past. She reports whenever she goes on antibiotics as recommended she takes Dificid 200 mg p.o. daily for prophylaxis which she has been doing during the time she has been on amoxicillin. Allergies Allergy/AdvReac Type Severity Reaction Status Date / Time Iodinated Contrast Media Allergy Severe Hx Kidney Verified 06/09/20 10:06 Transplant Pyjeppl-Gjp-Vnv Reductase Allergy Severe "PANCREATIT Verified 06/09/20 10:06 Inhibitor IS" sumatriptan Allergy Severe seizure Verified 06/09/20 10:06 hydrochlorothiazide Allergy Mild Unknown Verified 06/09/20 10:06 Sulfa (Sulfonamide Allergy Mild . Verified 06/09/20 10:06 Antibiotics) triamterene Allergy Mild Unknown Verified 06/09/20 10:06 atorvastatin Allergy Unknown ? Verified 06/09/20 10:06 doxycycline Allergy Unknown UNKNOWN Verified 06/09/20 10:06 levofloxacin Allergy Unknown joint pain Verified 06/09/20 10:06 adhesive AdvReac Unknown SKIN TEAR Verified 06/09/20 10:06 Cipro AdvReac Unknown FATIGUE Verified 01/20/18 21:00 ciprofloxacin AdvReac Unknown FATIGUE Verified 06/09/20 10:06 morphine AdvReac Unknown INEFFECTIVE Verified 06/09/20 10:06 Home Medications Home Medications Medication Instructions Recorded Confirmed Type Levemir FlexTouch U-100 Insuln 9 units SUBCUT HS 09/01/18 06/09/20 History allopurinol 300 mg PO TUTHSA 09/01/18 06/09/20 History tamsulosin 0.4 mg PO BID 03/26/19 06/09/20 History prednisone 5 mg tablet 5 mg PO QAM #90 tab 05/02/19 06/09/20 Rx azelastine 2 spray INTRANASAL Q12H PRN 07/10/19 06/09/20 History fluticasone propionate [Flonase 2 spray INTRANASAL DAILY PRN 07/10/19 06/09/20 History Allergy Relief] mycophenolate sodium 180 mg 360 mg PO BID #360 tab 11/04/19 06/09/20 Rx tablet,delayed release ropinirole 0.25 mg tablet 0.25 mg PO HS #90 tab 01/27/20 06/09/20 Rx carvedilol 6.25 mg tablet 18.75 mg PO BID #540 tab 03/18/20 06/09/20 Rx PNV cmb#95-ferrous fumarate-FA 1 tab PO QAM 04/13/20 06/09/20 History [] Premarin 0.625 mg PO WE 04/13/20 06/09/20 History jrkggvphxy-tuppudhezuenf-aaei 1 cap PO Q6H PRN 04/13/20 06/09/20 History [Fioricet] repaglinide 0.5 mg PO TID PRN 04/13/20 06/09/20 History sirolimus 2 mg PO QAM 04/13/20 06/09/20 History pantoprazole 40 mg PO QAM 05/23/20 06/09/20 History venlafaxine 75 mg PO QAM 06/09/20 06/09/20 History Past Med/Surg History Medical History (Updated 06/10/20 @ 14:09 by Eugene Martinez MD) Abdominal pain Acute gout Acute pyelonephritis Acute renal failure Allergic rhinitis due to allergen CKD (chronic kidney disease) stage 4, GFR 15-29 ml/min Clostridium difficile diarrhea Dehydration Diarrhea of presumed infectious origin Fever HTN (hypertension) Immunosuppressed status Intractable vomiting Migraine Pancreatitis Recurrent Clostridium difficile diarrhea SBO (small bowel obstruction) Sepsis Sinus congestion SIRS (systemic inflammatory response syndrome) Unspecified asthma UTI (lower urinary tract infection) (10/21/14) Surgical History History of hernia surgery Hx of appendectomy Hx of cholecystectomy Kidney replaced by transplant x2. most recent 1 year ago Family History Other Family history non-contributory Social History Smoking Status: Never smoker Second Hand Exposure: No; Hx Alcohol Use: Yes Alcohol type: beer Hx Substance Use: No Preferred Language: Qatari Communication Ability: Effective Fibreglass Laminator Required: No Beliefs That Will Affect Care: None marital status: Current Living Situation: Spouse Other Information That Helps Us Care for You: No Feels Safe at Home: Yes Safety Concerns: Feels Safe At This Time Review of Systems Review of Systems: All systems reviewed & are unremarkable except as noted in HPI & below Physical Exam Constitutional: WD/WN, vitals as above (Nonseptic appearing) Eyes: + anicteric sclerae; normal pupil size ENMT: external ear and nose normal, oropharynx normal Neck: trachea midline, no thyromegaly Respiratory: normal respiratory effort, lungs clear to auscultation Cardiovascular: RRR, no murmur, no edema Gastrointestinal (Abdomen): Inspection/Auscultation: normal bowel sounds Percussion/Palpation: abdomen soft; abdomen nontender, no guarding and abdomen not rigid Musculoskeletal: no cyanosis or clubbing, extremities motor strength 5/5 Skin: no rashes, warm and dry Neurologic: moves all extremities and awake; not confused Psychiatric: A+Ox3, euthymic affect Genitourinary: no CVA tenderness Results & Data Results & Data ([facility]) Vital Signs (Past 12 Hours) Vital Signs Temp Pulse Resp BP Pulse Ox 06/09/20 11:30 86 15 139/81 94 06/09/20 10:45 95 06/09/20 10:00 75 18 151/71 H 06/09/20 09:34 37.9 C H 82 20 156/79 H 97 Diagnostic Findings SINGLE VIEW CHEST IMPRESSION: No active disease in the chest. ECG Indication: other (Infection) Rate (beats per minute): 78 Rhythm: sinus with SA Findings: no acute ischemic change Comparison ECG Date: from (July 25, 2019) Change: no significant change Code Status & VTE Plan Code Status Full VTE Prophylaxis Plan VTE Prophylaxis will be ordered: No PG Care Time/CCT Total # of Minutes Spent Total Time Spent with Patient: Total time spent is greater than 50% in coordination of care (as documented) at patient's floor/unit and/or counseling patient: Coding Level of Care Code 34678 Initial Inpt Care Lvl 3 Diagnoses UTI (urinary tract infection) N30.00 Hematuria presence: without hematuria Urinary tract infection type: acute cystitis Fever R50.9 Fever type: unspecified Tension headache G44.209 Gastritis K29.70 Non-celiac gluten sensitivity K90.41 Immunocompromised state D89.9 Renal transplant recipient Z94.0 Restless legs syndrome G25.81 HTN (hypertension) I10 Recurrent Clostridium difficile diarrhea A04.71 (1) UTI (urinary tract infection) Hematuria presence: without hematuria Urinary tract infection type: acute cystitis Qualified Code(s): N30.00 - Acute cystitis without hematuria (2) Fever Fever type: unspecified Qualified Code(s): R50.9 - Fever, unspecified
[2020-06-09] MEDS ORDERED: POLYETHYLENE (MIRALAX) 17 GM PACK PO PRN (14:47)
[2020-06-09] MEDS ORDERED: ONDANSETRON INJ 2 MG/ML 2 ML VIAL IV PRN (14:47)
[2020-06-09] MEDS ORDERED: NON-FORMULARY MEDICATION (Azelastine 2 SPRAYS) INTNAS PRN (14:47)
[2020-06-09] MEDS ORDERED: ACETAMINOPHEN 325 MG TAB PO PRN (14:47)
--- NOTE | 2020-06-09 15:19 | Electrocardiogram Report ---
Test Reason : Blood Pressure : / mmHG Vent. Rate : 078 BPM Atrial Rate : 078 BPM P-R Int : 174 ms QRS Dur : 082 ms QT Int : 376 ms P-R-T Axes : 078 058 078 degrees QTc Int : 428 ms Sinus rhythm with marked sinus arrhythmia Otherwise normal ECG When compared with ECG of 25-JUL-2019 01:19, T wave amplitude has increased in Inferior leads Confirmed by Danny Hernandez ([id number]) on 06/09/2020 3:19:09 PM Referred By: REFERRED SELF Confirmed By:Danny Hernandez
[2020-06-09] MEDS: PIPERACILLIN/TAZOBACTAM 3.375 GM in DEXTROSE 5% 100 ML IV SCH ×2 (15:49→23:32)
[2020-06-09] MEDS: BUTALBITAL/ACETAMIN/CAFFEINE TAB PO PRN (20:32)
[2020-06-09] MEDS: HYDROmorphone INJ 0.5 MG/0.5 ML SYR IV PRN ×2 (20:32→23:38)
[2020-06-09] MEDS: ROPINIROLE HCL 0.25 MG TABLET PO SCH (20:33)
[2020-06-09] MEDS: TAMSULOSIN HCL 0.4 MG CAP PO SCH (20:33)
[2020-06-09] MEDS: carvediloL 12.5 MG TAB PO SCH (20:34)
[2020-06-09] MEDS: MYCOPHENOLATE SODIUM 180 MG TAB PO SCH (20:34)
[2020-06-09] MEDS: INSULIN DETEMIR FLEXPEN/FLEX TOUCH 100 UNITS/ML 3ML SQ SCH (20:36)
[2020-06-10] MEDS: PIPERACILLIN/TAZOBACTAM 3.375 GM in DEXTROSE 5% 100 ML IV SCH (07:48)
[2020-06-10 08:21] LABS: Hematocrit (blood only) 32.5 % (37-47); Mean Corpuscular Hemoglobin 30.1 pg (25-34); Mean Corpuscular Hgb Conc 33.8 g/dL (32-36); Mean Platelet Volume 8.9 fL (7.4-10.4); Platelet Count 129 K/uL (130-400); RDW Coefficient of Variation 14.6 % (11.5-14.5); RDW Standard Deviation 48.2 fL (36.4-46.3); Red Blood Count 3.65 M/uL (4.2-5.4); White Blood Count 6.01 K/uL (4.8-10.8)
[2020-06-10] MEDS ORDERED: ACETAMINOPHEN 1,000 MG/100 ML VIAL IV PRN (08:30)
[2020-06-10] MEDS ORDERED: ESTROGENS, CONJUGATED 0.625 MG TAB PO SCH (09:00)
[2020-06-10 09:01] LABS: BUN Creatinine Ratio 12.1 (10-20); Calcium 9.1 mg/dl (8.5-10.1); Est GFR (African American) 46.1; Est GFR (Non-African American) 39.8; Potassium 4.2 mmol/L (3.5-5.1)
[2020-06-10] MEDS: VENLAFAXINE HCL XR 75 MG CAPXR PO SCH (10:24)
[2020-06-10 10:25] LABS: Lyme Ab IgG w/WB Rflx Negative (Negative)
[2020-06-10] MEDS: TAMSULOSIN HCL 0.4 MG CAP PO SCH ×2 (10:25→21:07)
[2020-06-10] MEDS: predniSONE 5 MG TAB PO SCH (10:25)
[2020-06-10] MEDS: FLUTICASONE PROPIONATE NA SPR 16 GM BTL SCH (10:25)
[2020-06-10 10:26] LABS: Lyme Ab IgM w/WB Rflx Negative (Negative)
[2020-06-10] MEDS: PRENATAL VITAMIN 1 TAB PO SCH (10:26)
[2020-06-10] MEDS: carvediloL 12.5 MG TAB PO SCH ×2 (10:26→21:07)
[2020-06-10] MEDS: PANTOprazole 40 MG TAB PO SCH (10:26)
[2020-06-10] MEDS: SIROLIMUS 0.5 MG TABLET PO SCH (10:26)
--- NOTE | 2020-06-10 10:59 | Nephrology Consultation ---
Date of Consultation June 10, 2020 Assessment & Plan (1) Renal transplant recipient: Mrs. Bowling is stable status post renal transplant. She is immunosuppressed with sirolimus 2 mg daily, mycophenolate sodium 360 mg twice daily and 5 mg of prednisone daily. She is admitted with a febrile illness of uncertain etiology at the current time. She has been ill for just over 24 hours. She had a recent urinary tract infection but her current urinalysis is unremarkable. Repeat urine and blood cultures are pending. She has been walking in wooded areas but has not had any notable rash or other symptoms to suggest Lyme disease although that would be a possibility. She no longer has a headache. The headache that she had at the onset of her symptoms was a typical migraine headache for her which resolved with Fioricet. She has a history of C. difficile colitis but is not having diarrhea at the current time. She is now on broad-spectrum antibiotics which is appropriate. She is getting Zosyn and an appropriate dose. For now I would continue with her current therapy. However, I would reduce her mycophenolate sodium to 180 mg twice daily. Sirolimus and prednisone can be kept at the current doses. I do not think she needs stress dose steroids. I discussed the case with Dr. Robles. Given her potential exposure to ticks we will add doxycycline as well. There is a questionable history of an allergy to that drug but the patient denies even having had the drug in the past. She is well aware of her past history and I do not think she would forget an allergy to a particular drug. If she did receive the drug, it may be listed as an allergy but simply represented a side effect of the drug. Nonetheless, since she is in the hospital she can be monitored to make sure she does not have any allergic reactions to the drug. I have no other immediate recommendations for further studies. I would continue to observe her and await the results of the cultures and other studies ordered. (2) Immunocompromised: (3) Fever: History of Present Illness Reason for Consultation: Renal transplant patient with fever. Attending Physician: Garland Jorge DO History of Present Illness Mrs. Bowling is a 60-year-old woman currently residing in [place]. She is well- known to me. I have followed her since 2011. She was admitted to the hospital yesterday with recurrent chills and fevers. Other than a headache, she had no other significant symptoms. She has a significant past medical history revolving around her history of an autosomal dominant polycystic kidney disease. She developed end-stage renal disease in 1998. At that time, she underwent a bilateral nephrectomy because of recurrent urinary tract infections. She was begun on maintenance dialysis. The nephrectomy was done in preparation of a probable kidney transplant. A complication of her hospitalization for her nephrectomy was an apparent cerebrovascular accident from which she is fully recovered with no long-term sequela. When on dialysis, she was treated initially with peritoneal dialysis at home. She was on dialysis for 18 months prior to getting a kidney transplant from a living related donor, a cousin. 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 Her serum creatinine marc from a baseline of 1.5 mg/Karen to 2.5 mg/Karen. Her immunosuppression was changed at that time to a combination of prednisone and sirolimus. She moved to [facility] several years ago because of her 's job change. Since that time she has been followed at [facility] in [place] by their transplant team. In May 2011 she developed episodes of acute abdominal pain. She had evidence of a bowel obstruction at that time.. She was transferred to [place] in [place]. She underwent an apparent bowel resection and colostomy. Subsequently, her colostomy was taken down. Unfortunately, that surgery was complicated by the development of a wound infection as well as a urinary tract infection. Both required antibiotic therapy. As a consequence she developed C. difficile colitis. That was treated with vancomycin. Nevertheless, her wound infection gradually cleared. She was managed at the wound center at [place]. 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 Her baseline creatinine marc to a range of about 3.5 mg/Karen. Complications of her renal insufficiency included an anemia of chronic disease which was managed with Procrit. She could not tolerate oral iron and has intermittently gotten intravenous iron in the past. Additionally, she had secondary hyperparathyroidism. Additional complications have included diabetes mellitus and hypertension both of which have been well controlled. She was also having recurrent episodes of C. difficile colitis. She has had courses of vancomycin and Dificid. In May 2017 she did undergo a fecal transplant. Since that time, she is done reasonably well but with each course of antibiotics for other reason she did take Dificid. In December 2016 she had a ventral hernia repair. That was a consequence of prior surgeries and wound infections. The surgery was done at the [facility]. She has a history of recurring small bowel obstructions. The first occurred in 2010 and she has had recurring episodes since that time. Each is improved with conservative therapy. In November 2017 she suffered a fall at home. The fall was apparently the result of a syncopal episode. The etiology of her syncope was never proven. She was seen in our emergency room here. A CT scan of her head showed an acute right zygomaticomaxillary complex fracture. That included fractures in the right zygomatic arch. A fracture of the lateral wall of the right orbit and right maxillary sinus fracture were noted as well. She had a diastases of the right zygomatic frontal suture. She was transferred to [place]. There, she underwent maxillofacial surgery. For a period of time, her jaw was wired and she relied on full liquids. She had some recurrent weakness of the left side of her face. While at [place], she was begun on maintenance dialysis. Her serum creatinine at that time was in the range of 3.5 to 4.0 mg/Karen. Dialysis access was through a tunneled dialysis catheter. Upon discharge she was maintained on dialysis here. Her urine output increased and her serum creatinine fell. Dialysis was discontinued. She remained reasonably stable. On January [id number] she did receive a donor transplant at [place]. She is done fairly well since that time. Her serum creatinine has fallen to as low as 1.2 but usually is in the range of about 1.3 to 1.45 mg/Karen. Her course has been complicated by an occasional urinary tract infection. The last of which occurred in late April. She was seen in our emergency room on May 23. An enterococcus was cultured from her urine. She was started on a cephalosporin but once the results of her culture and sensitivities were back she was switched to amoxicillin 875 mg twice daily. She completed that course about 3 days prior to admission. Her immunosuppression subsequent to her transplant was with mycophenolate sodium 360 mg twice daily, prednisone 5 mg daily and belatacept. She was certain that belatacept was contributing to hair loss. The drug was subsequently discontinued in favor of sirolimus 2 mg daily. She thinks that her hair loss has slowed. Other associated issues include her hypertension. She does follow a restricted sodium diet. She takes carvedilol 18.75 mg twice daily. She is not currently on a diuretic. She has had no target organ symptoms of hypertension nor she had any symptoms of cardiovascular, cerebrovascular or peripheral vascular disease. Her blood pressure when seen as an outpatient has been well controlled. She also has a history of hypercholesterolemia but is not taking a statin at the current time. She has a history of insulin-dependent diabetes mellitus. She minimizes her carbohydrate intake but admits that she is not as compliant as she should be. She currently takes Levemir 7 units at bedtime and Prandin 5 mg before meals. She takes Prandin only if her blood sugar is 120 or greater. Her most recent hemoglobin A1c was 6.1%. She has no polyuria or polydipsia. There are no target organ symptoms of her diabetes. Her current admission was brought about with the onset of symptoms occurring on Monday night 06/08. She had a relatively severe migraine headache which is not unusual for her. She treated it with Fioricet. The next morning she began not feeling well. She developed shaking chills and a temperature of 101.4. She had no localizing symptoms. She was not having diarrhea. She had no lower urinary tract symptoms or complaints including no symptoms of dysuria, frequency or urgency. She had no tenderness or discomfort over her transplanted kidney which is in the right lower quadrant. Her previous transplant is in the left lower quadrant. That too remained nontender. She has had no other particular symptoms. Her headache has resolved. She did not develop a stiff neck. She has had no cough, wheezing or chest pain. She has not had diarrhea or nausea. There has been no change in her bowel habits. She has not developed any evidence of redness or swelling of her skin or joints. Of note is the fact that on June 08 she did undergo a laser light treatment by plastic surgery, Dr. Bernie Ortiz,. She tolerated the procedure well and it was apparently uneventful. She has no local tenderness on her face where the treatment was given. She had no other associated constitutional effects immediately after that treatment. Additionally, she does have a wooded backyard. She walks in her backyard frequently but has not noted any tick bites. She has not noted any rashes. Additionally, she was in the [facility] about a week ago. Apparently there is some family owned property there. She was walking in the [place] there as well. At the time of admission, her white blood cell count was within the normal range. Although she had about 81% neutrophils that is not unusual for her because of her immunosuppression. Her serum creatinine was 1.4 which is her baseline. Her urinalysis was unremarkable. Thus far, blood and urine cultures are negative. Her review of systems is unremarkable although she has had some recent right groin pain. She does have evidence of osteoarthritis of the right hip. Her pain is worse with weightbearing. She is not experiencing any discomfort in that area at the current time. Her current medications are listed in the record and I have no changes to that list. Additionally, her allergies are listed as well. These include iodinated contrast media, statins, sumatriptan, hydrochlorothiazide, sulfa antibiotics, triamterene, floro- quinolones and morphine. Allergies Allergy/AdvReac Type Severity Reaction Status Date / Time Iodinated Contrast Media Allergy Severe Hx Kidney Verified 06/09/20 10:06 Transplant Eeewkrp-Jws-Vvg Reductase Allergy Severe "PANCREATIT Verified 06/09/20 10:06 Inhibitor IS" sumatriptan Allergy Severe seizure Verified 06/09/20 10:06 hydrochlorothiazide Allergy Mild Unknown Verified 06/09/20 10:06 Sulfa (Sulfonamide Allergy Mild . Verified 06/09/20 10:06 Antibiotics) triamterene Allergy Mild Unknown Verified 06/09/20 10:06 atorvastatin Allergy Unknown ? Verified 06/09/20 10:06 doxycycline Allergy Unknown UNKNOWN Verified 06/09/20 10:06 levofloxacin Allergy Unknown joint pain Verified 06/09/20 10:06 adhesive AdvReac Unknown SKIN TEAR Verified 06/09/20 10:06 Cipro AdvReac Unknown FATIGUE Verified 01/20/18 21:00 ciprofloxacin AdvReac Unknown FATIGUE Verified 06/09/20 10:06 morphine AdvReac Unknown INEFFECTIVE Verified 06/09/20 10:06 Home Medications Home Medications Medication Instructions Recorded Confirmed Type Levemir FlexTouch U-100 Insuln 9 units SUBCUT HS 09/01/18 06/09/20 History allopurinol 300 mg PO TUTHSA 09/01/18 06/09/20 History tamsulosin 0.4 mg PO BID 03/26/19 06/09/20 History prednisone 5 mg tablet 5 mg PO QAM #90 tab 05/02/19 06/09/20 Rx azelastine 2 spray INTRANASAL Q12H PRN 07/10/19 06/09/20 History fluticasone propionate [Flonase 2 spray INTRANASAL DAILY PRN 07/10/19 06/09/20 History Allergy Relief] mycophenolate sodium 180 mg 360 mg PO BID #360 tab 11/04/19 06/09/20 Rx tablet,delayed release ropinirole 0.25 mg tablet 0.25 mg PO HS #90 tab 01/27/20 06/09/20 Rx carvedilol 6.25 mg tablet 18.75 mg PO BID #540 tab 03/18/20 06/09/20 Rx PNV cmb#95-ferrous fumarate-FA 1 tab PO QAM 04/13/20 06/09/20 History [] Premarin 0.625 mg PO WE 04/13/20 06/09/20 History hyxtmaxxec-qzvxgdeqfidwq-aftn 1 cap PO Q6H PRN 04/13/20 06/09/20 History [Fioricet] repaglinide 0.5 mg PO TID PRN 04/13/20 06/09/20 History sirolimus 2 mg PO QAM 04/13/20 06/09/20 History pantoprazole 40 mg PO QAM 05/23/20 06/09/20 History venlafaxine 75 mg PO QAM 06/09/20 06/09/20 History Patient History Medical History (Updated 06/10/20 @ 10:54 by Eugene Roy MD) Abdominal pain Acute gout Acute pyelonephritis Acute renal failure Allergic rhinitis due to allergen CKD (chronic kidney disease) stage 4, GFR 15-29 ml/min Clostridium difficile diarrhea Dehydration Diarrhea of presumed infectious origin Fever HTN (hypertension) Immunosuppressed status Intractable vomiting Migraine Pancreatitis SBO (small bowel obstruction) Sepsis Sinus congestion SIRS (systemic inflammatory response syndrome) Unspecified asthma UTI (lower urinary tract infection) (10/21/14) Surgical History History of hernia surgery Hx of appendectomy Hx of cholecystectomy Kidney replaced by transplant x2. most recent 1 year ago Family History Other Family history non-contributory Social History Smoking Status: Never smoker Second Hand Exposure: No; Hx Alcohol Use: Yes Alcohol type: beer Hx Substance Use: No Preferred Language: Citizen Of [place] Communication Ability: Effective Financial Writer Required: No Beliefs That Will Affect Care: None marital status: Current Living Situation: Spouse Other Information That Helps Us Care for You: No Feels Safe at Home: Yes Safety Concerns: Feels Safe At This Time Physical Exam Physical Exam: On physical examination, Mrs. Bowling appears perhaps minimally chronically ill but not in any acute distress when seen by me. She appears to be of about her stated age of 60 or perhaps a bit younger. Her blood pressure was 149/72 with a pulse of 100 and regular. Respiratory rate is 18 and nonlabored. Her oxygen saturation is 94% on room air. Her temperature was 37.3 C. However, earlier this morning, her temperature was 38.9 degrees. She is awake, alert and oriented. Her conversation is appropriate. Her skin shows normal skin turgor. She has no obvious rash or infiltrative skin disease. She has multiple scars on her abdomen from surgical procedures including a right lower quadrant scar from her current kidney transplant in the left lower quadrant scar from a prior kidney transplant. She has other multiple abdominal scars from prior surgeries noted in her history. She has no palpable lymphadenopathy. Her head is normal. I see no evidence of any abnormalities over her upper cheeks which is the site of her laser light therapy. The area is not tender. She has no tenderness over the sinuses. Eyes are grossly normal. The ocular fundi were not examined. Ears, nose, mouth and throat are unremarkable. Oral mucous membranes are moist. Her neck is supple. There is no jugular venous distention, carotid bruit or thyromegaly. Her chest is clear to auscultation. She has no wheezes, rales or rhonchi. Cardiac exam shows a regular rhythm. S1 and S2 are normal. I hear no murmur or gallop. Her abdomen shows the scars. It is nontender. Bowel sounds are normal. She has renal t ransplants palpable in both lower quadrants. They are nontender. She has a soft bruit over the right lower quadrant transplant which is her most recent. I cannot feel her liver or spleen. Extremities show no cyanosis, clubbing or peripheral edema. She has some chronic skin changes on her distal lower extremities. Peripheral pulses are intact. Her neurologic exam shows no lateralizing changes. Results & Data ([facility]) Vital Signs (Past 12 Hours) Vital Signs Temp Pulse Resp BP Pulse Ox 06/10/20 07:15 38.9 C H 100 H 18 149/72 H 94 06/09/20 23:12 37.3 C 52 L 18 136/70 96 Laboratory Results Laboratory Results - last 24 hr 06/09/20 06/09/20 06/09/20 10:05 11:08 11:08 WBC 6.80 RBC 3.95 L Hgb 11.5 L Hct 35.6 L MCV 90.1 MCH 29.1 MCHC 32.3 RDW Std Deviation 48.6 H RDW Coeff of Valentina 14.7 H Plt Count 152 MPV 9.7 Immature Gran % (Auto) 0.1 Neut % (Auto) 81.8 Lymph % (Auto) 6.2 [place] % (Auto) 11.2 Eos % (Auto) 0.6 Baso % (Auto) 0.1 Neut # (Auto) 5.56 Lymph # (Auto) 0.42 L [place] # (Auto) 0.76 H Eos # (Auto) 0.04 Baso # (Auto) 0.01 Immature Gran # (Auto) 0.01 Peripher Smr Path Cons PT 10.3 INR 1.0 APTT 24.2 PTT Ratio 0.9 Sodium Potassium Chloride Carbon Dioxide Anion Gap BUN Creatinine Est Cr Clr Drug Dosing Est GFR ( Amer) Est GFR (Non-Af Amer) BUN/Creatinine Ratio Glucose POC Glucose Lactate Calcium Magnesium Total Bilirubin AST ALT Alkaline Phosphatase Troponin I Total Protein Albumin Globulin Albumin/Globulin Ratio Procalcitonin Specimen Hemolysis Urine Color Yellow Urine Appearance Clear Urine pH 5.5 Ur Specific [place] 1.018 Urine Protein 1+ H Urine Glucose (UA) Negative Urine Ketones Negative Urine Blood Negative Urine Nitrite Negative Urine Bilirubin Negative Urine Urobilinogen Negative Ur Leukocyte Esterase Negative Urine WBC (Auto) 1-5 Urine RBC (Auto) 0-4 U Hyaline Cast (Auto) 1-5 U Epithel Cells (Auto) >30 H Urine Bacteria (Auto) Negative Lyme Disease IgG Ab Lyme Disease IgM Ab 06/09/20 06/09/20 06/09/20 11:08 11:08 11:08 WBC RBC Hgb Hct MCV MCH MCHC RDW Std Deviation RDW Coeff of Valentina Plt Count MPV Immature Gran % (Auto) Neut % (Auto) Lymph % (Auto) [place] % (Auto) Eos % (Auto) Baso % (Auto) Neut # (Auto) Lymph # (Auto) [place] # (Auto) Eos # (Auto) Baso # (Auto) Immature Gran # (Auto) Peripher Smr Path Cons PT INR APTT PTT Ratio Sodium 136 Potassium 3.7 Chloride 102 Carbon Dioxide 26 Anion Gap 8.0 BUN 17 Creatinine 1.41 H Est Cr Clr Drug Dosing 42.3 Est GFR ( Amer) 46.5 Est GFR (Non-Af Amer) 40.1 BUN/Creatinine Ratio 12.2 Glucose 124 H POC Glucose Lactate 0.3 L Calcium 8.9 Magnesium 2.0 Total Bilirubin 0.8 AST 29 ALT 24 Alkaline Phosphatase 80 Troponin I < 0.015 Total Protein 7.0 Albumin 3.2 L Globulin 3.8 Albumin/Globulin Ratio 0.8 L Procalcitonin 0.14 Specimen Hemolysis Urine Color Urine Appearance Urine pH Ur Specific [place] Urine Protein Urine Glucose (UA) Urine Ketones Urine Blood Urine Nitrite Urine Bilirubin Urine Urobilinogen Ur Leukocyte Esterase Urine WBC (Auto) Urine RBC (Auto) U Hyaline Cast (Auto) U Epithel Cells (Auto) Urine Bacteria (Auto) Lyme Disease IgG Ab Lyme Disease IgM Ab 06/09/20 06/10/20 06/10/20 20:40 07:30 08:09 WBC 6.01 RBC 3.65 L Hgb 11.0 L Hct 32.5 L MCV 89.0 MCH 30.1 MCHC 33.8 RDW Std Deviation 48.2 H RDW Coeff of Valentina 14.6 H Plt Count 129 L MPV 8.9 Immature Gran % (Auto) Neut % (Auto) Lymph % (Auto) [place] % (Auto) Eos % (Auto) Baso % (Auto) Neut # (Auto) Lymph # (Auto) [place] # (Auto) Eos # (Auto) Baso # (Auto) Immature Gran # (Auto) Peripher Smr Path Cons PT INR APTT PTT Ratio Sodium Potassium Chloride Carbon Dioxide Anion Gap BUN Creatinine Est Cr Clr Drug Dosing Est GFR ( Amer) Est GFR (Non-Af Amer) BUN/Creatinine Ratio Glucose POC Glucose 128 H 95 Lactate Calcium Magnesium Total Bilirubin AST ALT Alkaline Phosphatase Troponin I Total Protein Albumin Globulin Albumin/Globulin Ratio Procalcitonin Specimen Hemolysis Urine Color Urine Appearance Urine pH Ur Specific [place] Urine Protein Urine Glucose (UA) Urine Ketones Urine Blood Urine Nitrite Urine Bilirubin Urine Urobilinogen Ur Leukocyte Esterase Urine WBC (Auto) Urine RBC (Auto) U Hyaline Cast (Auto) U Epithel Cells (Auto) Urine Bacteria (Auto) Lyme Disease IgG Ab Lyme Disease IgM Ab 06/10/20 06/10/20 06/10/20 08:09 09:12 09:12 WBC RBC Hgb Hct MCV MCH MCHC RDW Std Deviation RDW Coeff of Valentina Plt Count MPV Immature Gran % (Auto) Neut % (Auto) Lymph % (Auto) [place] % (Auto) Eos % (Auto) Baso % (Auto) Neut # (Auto) Lymph # (Auto) [place] # (Auto) Eos # (Auto) Baso # (Auto) Immature Gran # (Auto) Peripher Smr Path Cons PT INR APTT PTT Ratio Sodium 137 Potassium 4.2 Chloride 103 Carbon Dioxide 25 Anion Gap 9.0 BUN 17 Creatinine 1.42 H Est Cr Clr Drug Dosing 42.0 Est GFR ( Amer) 46.1 Est GFR (Non-Af Amer) 39.8 BUN/Creatinine Ratio 12.1 Glucose 89 POC Glucose Lactate Calcium 9.1 Magnesium Total Bilirubin AST ALT Alkaline Phosphatase Troponin I Total Protein Albumin Globulin Albumin/Globulin Ratio Procalcitonin Specimen Hemolysis Urine Color Urine Appearance Urine pH Ur Specific [place] Urine Protein Urine Glucose (UA) Urine Ketones Urine Blood Urine Nitrite Urine Bilirubin Urine Urobilinogen Ur Leukocyte Esterase Urine WBC (Auto) Urine RBC (Auto) U Hyaline Cast (Auto) U Epithel Cells (Auto) Urine Bacteria (Auto) Lyme Disease IgG Ab Negative Lyme Disease IgM Ab Negative PG Care Time/CCT Total # of Minutes Spent Total Time Spent with Patient: Total time spent is greater than 50% in coordination of care (as documented) at patient's floor/unit and/or counseling patient:75 Coding Level of Care Code 21141 Inpt Consult Level 5 Diagnoses Renal transplant recipient Z94.0 Immunocompromised D89.9 Fever R50.9
[2020-06-10] MEDS: MYCOPHENOLATE SODIUM 180 MG TAB PO SCH ×2 (12:03→21:05)
[2020-06-10] MEDS: DOXYCYCLINE HYCLATE 100 MG CAP PO SCH ×2 (12:39→21:05)
[2020-06-10] MEDS: RASPBERRY SYRUP 5 ML UDP PO SCH ×2 (17:29→23:44)
[2020-06-10] MEDS: VANCOMYCIN HCL 125 MG/2.5ML SOLN PO SCH ×2 (17:29→23:44)
[2020-06-10] MEDS ORDERED: LACTOBACILLUS ACIDOPHILUS (FLORANEX) TAB PO ONE (18:30)
[2020-06-10] MEDS: LOPERAMIDE HCL 2 MG CAP PO PRN (18:44)
--- NOTE | 2020-06-10 19:21 | Hospitalist Progress Note ---
Date of Service June 10, 2020 Assessment & Plan (1) Fever: ddx fairly broad given nonspecific sx and immune suppression - however lack of urinary sx (and the presence of them before) makes UTI unlikely, lack of respiratory sx makes pneumonia unlikely, no evidence of cellulitis. at the time i saw her no diarrhea - later started but negative Cdiff and likely was zosyn side effect (see below). blood cultures pending - bacteremia possible - continue empiric coverage pending further time for growth. 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 tick possible - lyme negative (but amox for enterococcus would have possibly partially treated) and peripheral smear negative but can miss somewhere around 40% of anaplasmosis. empiric doxy for now. follow clinically. (2) Diarrhea: started AFTER fevers, started after admission, started even after i had seen her ~930 this morning - given timing i do not believe that diarrheal illness was the culprit for her fevers (possible, but unlikely given fevers preceded diarrhea by several days) - more than likely is zosyn adr. Cdiff negative. follow clinically, probiotics (since this can sometimes help blunt the severity of zosyn adr related diarrhea) and since cdiff negative - imodium prn. follow (3) Tension headache: no s/s meningitis. headache comes and goes. follow. (4) Gastritis: Continue ppi (5) Non-celiac gluten sensitivity: Gluten-free diet (6) Immunocompromised state: Continue chronic suppressive agents- but nephrology suggests dropping cellcept to 180 while acutely ill. certainly can cloud clinical picture as she may not respond in a typical manner. keep ddx broad in this regard. (7) Renal transplant recipient: nephro input appreciated, immunosuppressants a s above (8) Restless legs syndrome: Continue Requip 0.25 mg p.o. at bedtime. (9) HTN (hypertension): Continue carvedilol 18.75 mg p.o. twice daily. BP acceptable (10) Recurrent Clostridium difficile diarrhea: Dificid 200 mg p.o. daily since on zosyn and got diarrhea - will also utilize vanco for proph at this time (data suggests significant risk reduction in recurrent cdiff when one needs to be on abx for other purposes - for now even though cdiff was negative given profuse diarrhea will continue proph vanco at least until clinical picture more clearly declared) (11) DVT prophylaxis: ambulation Admission and Anticipated Discharge Date Admission Date: June 09, 2020 Subjective ongoing fevers and chills. no other focal sx. no cough/sputum/sob. no abdominal pain or diarrhea (at the time i saw her - later informed that she started with fairly profuse diarrhea). no dysuria (did have a little bit of urethral pain w illness 2wks ago). no rashes/painful areas on skin. no known tick bites. no known sick contacts. Review of Systems Review of Systems: All systems reviewed & are unremarkable except as noted in HPI & below Physical Exam Physical Exam: gen aaox3 pleasant nad heent nc at mmm neck full ROM breathing unlabored no accessory muscles good effort skin no rashes no pallor or icterus neuro no focal deficits Results & Data Results & Data ([facility]) Vital Signs (Past 12 Hours) Vital Signs Temp Pulse Resp BP Pulse Ox 06/10/20 19:08 98.1 F 52 L 18 127/69 97 06/10/20 15:05 98.2 F 50 L 18 104/63 95 06/10/20 10:30 99.1 F 06/10/20 07:15 102.0 F H 100 H 18 149/72 H 94 PG Care Time/CCT Total # of Minutes Spent Total Time Spent with Patient: Total time spent is greater than 50% in coordination of care (as documented) at patient's floor/unit and/or counseling patient: Coding Level of Care Code 68035 Subseq Hosp Care Lvl 3 Diagnoses Fever R50.9 Fever type: unspecified Diarrhea R19.7 Tension headache G44.209 Gastritis K29.70 Non-celiac gluten sensitivity K90.41 Immunocompromised state D89.9 Renal transplant recipient Z94.0 Restless legs syndrome G25.81 HTN (hypertension) I10 Recurrent Clostridium difficile diarrhea A04.71 DVT prophylaxis Z29.9 (1) Fever Fever type: unspecified Qualified Code(s): R50.9 - Fever, unspecified
[2020-06-10] MEDS: BUTALBITAL/ACETAMIN/CAFFEINE TAB PO PRN (19:28)
[2020-06-10] MEDS: HYDROmorphone INJ 0.5 MG/0.5 ML SYR IV PRN ×2 (19:36→22:47)
[2020-06-10] MEDS ORDERED: FIDAXOMICIN 200 MG TAB PO SCH (21:00)
[2020-06-10] MEDS: ROPINIROLE HCL 0.25 MG TABLET PO SCH (21:05)
[2020-06-10] MEDS: INSULIN DETEMIR FLEXPEN/FLEX TOUCH 100 UNITS/ML 3ML SQ SCH (21:08)
[2020-06-11] MEDS: VANCOMYCIN HCL 125 MG/2.5ML SOLN PO SCH (05:48)
[2020-06-11] MEDS: RASPBERRY SYRUP 5 ML UDP PO SCH (05:48)
[2020-06-11] MEDS ORDERED: LACTOBACILLUS ACIDOPHILUS (FLORANEX) TAB PO SCH (08:00)
[2020-06-11] MEDS: VENLAFAXINE HCL XR 75 MG CAPXR PO SCH (08:22)
[2020-06-11] MEDS: PRENATAL VITAMIN 1 TAB PO SCH (08:22)
[2020-06-11] MEDS: TAMSULOSIN HCL 0.4 MG CAP PO SCH (08:22)
[2020-06-11] MEDS: PANTOprazole 40 MG TAB PO SCH (08:22)
[2020-06-11] MEDS: predniSONE 5 MG TAB PO SCH (08:22)
[2020-06-11] MEDS: SIROLIMUS 0.5 MG TABLET PO SCH (08:23)
[2020-06-11] MEDS: carvediloL 12.5 MG TAB PO SCH (08:23)
[2020-06-11] MEDS: FLUTICASONE PROPIONATE NA SPR 16 GM BTL SCH (08:24)
[2020-06-11] MEDS: MYCOPHENOLATE SODIUM 180 MG TAB PO SCH (08:24)
[2020-06-11] MEDS: DOXYCYCLINE HYCLATE 100 MG CAP PO SCH (08:25)
[2020-06-11 08:33] LABS: Basophils # (auto) 0.01 K/uL (0-0.2); Basophils % (auto) 0.2 %; Eosinophils # (auto) 0.08 K/uL (0-0.5); Eosinophils % (auto) 1.8 %; Hematocrit (blood only) 33.5 % (37-47); Immature Granulocytes # (auto) 0.01 K/uL (0.00-0.02); Immature Granulocytes % (auto) 0.2 %; Lymphocytes % (auto) 10.9 %; Mean Corpuscular Hemoglobin 29.2 pg (25-34); Mean Corpuscular Hgb Conc 32.8 g/dL (32-36); Mean Corpuscular Volume 88.9 fL (80-100); Mean Platelet Volume 9.8 fL (7.4-10.4); Monocytes % (auto) 13.1 %; Neutrophils # (auto) 3.37 K/uL (1.4-6.5); Neutrophils % (auto) 73.8 %; Platelet Count 152 K/uL (130-400); RDW Coefficient of Variation 14.6 % (11.5-14.5); RDW Standard Deviation 47.9 fL (36.4-46.3); Red Blood Count 3.77 M/uL (4.2-5.4); White Blood Count 4.57 K/uL (4.8-10.8)
[2020-06-11] MEDS ORDERED: allopurinoL 300 MG TAB PO SCH (09:00)
[2020-06-11 09:13] LABS: BUN Creatinine Ratio 16.7 (10-20); Calcium 9.3 mg/dl (8.5-10.1); Creatinine Clr Calc Pharmacy 44.8 ml/min; Est GFR (African American) 49.9; Potassium 4.1 mmol/L (3.5-5.1)
[2020-06-11] MEDS: LOPERAMIDE HCL 2 MG CAP PO PRN (09:20)
--- NOTE | 2020-06-11 09:57 | Nephrology Progress Note ---
Date of Service June 11, 2020 Assessment & Plan (1) Renal transplant recipient: Mrs. Bowling is doing well. There is no objective evidence of an acute bacterial infection. She has no physical findings to suggest it. Her white count is normal. Her differential is slightly shifted to the left but consistent with her immunosuppression. Blood and urine cultures are negative. She has not developed diarrhea. The plan is to have her discharged to home today. It would not appear that a ntibiotics are necessary but apparently she has been given a prescription for doxycycline in case any symptoms recur. If she is taking antibiotic she should take Dificid 500 mg daily. She may return to her usual dose of mycophenolate sodium 360 mg twice daily. All other outpatient medicines should continue. I asked her to call the office to make an appointment to see me early next week and to call should she develop any recurrent symptoms of fever. (2) Immunocompromised: (3) Fever: Admission and Anticipated Discharge Date Admission Date: June 09, 2020 Subjective Mrs. Bowling says she is feeling well this morning. She has been essentially afebrile for the past 24 hours. Cultures are negative. She has no immediate symptoms of infection, rejection, volume overload or uremia. She has had no shaking chills or sweats. She has not developed any rashes. She has no respiratory symptoms. She has no GI symptoms and no symptoms of joint pain, leg pain or skin rash. She is continued on her usual medications. She has been on Zosyn and doxycycline. Physical Exam Physical Exam: On examination today, Mrs. Bowling appears healthy and well and essentially at her baseline. Her blood pressure is 145/69 her pulse 67 and regular respiratory rate 20 and her pulse ox 99% on room air. Her temperature is 37.1 C. Her skin shows no rashes. She has multiple scars from prior surgical procedures particularly on her abdomen. She has no facial lesions. She has no palpable lymphadenopathy. Head, eyes, ears, nose and throat are unremarkable. Her oral mucous membranes are moist. Her neck is supple. She has no jugular venous distention, carotid bruit or thyromegaly. Her chest is clear to auscultation. Cardiac exam shows a regular rhythm. S1 and S2 are normal. There is no murmur or gallop. Her abdomen is nontender. Bowel sounds are normal. She has her kidney transplant is palpable in the lower quadrants. Neither are tender. She has no edema. There is no significant joint swelling. Her neurologic exam is grossly normal. Results & Data ([facility]) Vital Signs (Past 12 Hours) Vital Signs Temp Pulse Resp BP Pulse Ox 06/11/20 07:23 37.1 C 67 20 145/69 H 99 06/10/20 22:49 36.7 C 58 L 20 130/76 97 Laboratory Results Laboratory Results - last 24 hr 06/10/20 06/10/20 06/10/20 09:12 09:12 11:42 WBC RBC Hgb Hct MCV MCH MCHC RDW Std Deviation RDW Coeff of Valentina Plt Count MPV Immature Gran % (Auto) Neut % (Auto) Lymph % (Auto) [place] % (Auto) Eos % (Auto) Baso % (Auto) Neut # (Auto) Lymph # (Auto) [place] # (Auto) Eos # (Auto) Baso # (Auto) Immature Gran # (Auto) Peripher Smr Path Cons Sodium Potassium Chloride Carbon Dioxide Anion Gap BUN Creatinine Est Cr Clr Drug Dosing Est GFR ( Amer) Est GFR (Non-Af Amer) BUN/Creatinine Ratio Glucose POC Glucose 129 H Calcium Stl C. diff Tox B Gene Lyme Disease IgG Ab Negative Lyme Disease IgM Ab Negative 06/10/20 06/10/20 06/10/20 13:32 16:38 20:20 WBC RBC Hgb Hct MCV MCH MCHC RDW Std Deviation RDW Coeff of Valentina Plt Count MPV Immature Gran % (Auto) Neut % (Auto) Lymph % (Auto) [place] % (Auto) Eos % (Auto) Baso % (Auto) Neut # (Auto) Lymph # (Auto) [place] # (Auto) Eos # (Auto) Baso # (Auto) Immature Gran # (Auto) Peripher Smr Path Cons Sodium Potassium Chloride Carbon Dioxide Anion Gap BUN Creatinine Est Cr Clr Drug Dosing Est GFR ( Amer) Est GFR (Non-Af Amer) BUN/Creatinine Ratio Glucose POC Glucose 157 H 150 H Calcium Stl C. diff Tox B Gene Negative Cdiff Gene Lyme Disease IgG Ab Lyme Disease IgM Ab 06/11/20 06/11/20 06/11/20 07:36 07:57 07:57 WBC 4.57 L RBC 3.77 L Hgb 11.0 L Hct 33.5 L MCV 88.9 MCH 29.2 MCHC 32.8 RDW Std Deviation 47.9 H RDW Coeff of Valentina 14.6 H Plt Count 152 MPV 9.8 Immature Gran % (Auto) 0.2 Neut % (Auto) 73.8 Lymph % (Auto) 10.9 [place] % (Auto) 13.1 Eos % (Auto) 1.8 Baso % (Auto) 0.2 Neut # (Auto) 3.37 Lymph # (Auto) 0.50 L [place] # (Auto) 0.60 H Eos # (Auto) 0.08 Baso # (Auto) 0.01 Immature Gran # (Auto) 0.01 Peripher Smr Path Cons Sodium 139 Potassium 4.1 Chloride 107 Carbon Dioxide 25 Anion Gap 7.0 BUN 22 H Creatinine 1.33 H Est Cr Clr Drug Dosing 44.8 Est GFR ( Amer) 49.9 Est GFR (Non-Af Amer) 43.0 BUN/Creatinine Ratio 16.7 Glucose 93 POC Glucose 103 H Calcium 9.3 Stl C. diff Tox B Gene Lyme Disease IgG Ab Lyme Disease IgM Ab PG Care Time/CCT Total # of Minutes Spent Total Time Spent with Patient: Total time spent is greater than 50% in coordination of care (as documented) at patient's floor/unit and/or counseling patient: 30 Coding Level of Care Code 38207 Subseq Hosp Care Lvl 3 Diagnoses Renal transplant recipient Z94.0 Immunocompromised D89.9 Fever R50.9
--- NOTE | 2020-06-11 10:03 | Discharge Summary ---
Date of Service June 11, 2020 Admission HPI Per Admitting Provider Tia Bowling is a 60-year-old renal transplant recipient who presents to the ER with headache, fever. She was recently treated for a urinary tract infection with similar symptoms. She denies any dysuria, urinary frequency, change in odor/color -however this is similar to prior UTIs she has had in the past (although ER note from May 23 does note she was having dysuria at that time). Urine culture from ER visit on May 23 grew Enterococcus faecalis resistant to tetracycline but otherwise pansensitive. She was initially prescribed cefdinir in the emergency room however this was switched on May 25 to amoxicillin for appropriate coverage with 10 days duration. She reports finishing amoxicillin 2 days ago with return of her headache and chills the day after this. Fever last night 101.4 degrees Fahrenheit. Her headache is frontal and sometimes in her neck. She has a significant history of migraines but reports no current headaches since March have been different than her usual left-sided migraine. She notes her cat has been sleeping above her head at night and wonders whether this is been giving her more neck strain. She has a notable history of recurrent C. difficile colitis requiring a stool transplant in the past. She reports whenever she goes on antibiotics as recommended she takes Dificid 200 mg p.o. daily for prophylaxis which she has been doing during the time she has been on amoxicillin. Principal Diagnosis febrile illness - see hospital course Discharge Exam gen aaox3 pleasant nad heent nc at mmm lungs cta b/l no rrw good effort skin no rashes no pallor or icterus abd soft nd nt neuro no focal deficits Discharge Data Allergies Allergy/AdvReac Type Severity Reaction Status Date / Time Iodinated Contrast Media Allergy Severe Hx Kidney Verified 06/09/20 10:06 Transplant Pwafdle-Ftw-Mun Reductase Allergy Severe "PANCREATIT Verified 06/09/20 10:06 Inhibitor IS" sumatriptan Allergy Severe seizure Verified 06/09/20 10:06 hydrochlorothiazide Allergy Mild Unknown Verified 06/09/20 10:06 Sulfa (Sulfonamide Allergy Mild . Verified 06/09/20 10:06 Antibiotics) triamterene Allergy Mild Unknown Verified 06/09/20 10:06 atorvastatin Allergy Unknown ? Verified 06/09/20 10:06 doxycycline Allergy Unknown UNKNOWN Verified 06/09/20 10:06 levofloxacin Allergy Unknown joint pain Verified 06/09/20 10:06 adhesive AdvReac Unknown SKIN TEAR Verified 06/09/20 10:06 Cipro AdvReac Unknown FATIGUE Verified 01/20/18 21:00 ciprofloxacin AdvReac Unknown FATIGUE Verified 06/09/20 10:06 morphine AdvReac Unknown INEFFECTIVE Verified 06/09/20 10:06 Consultations 06/09/20 12:11 ED Decision to Admit Stat 06/09/20 14:47 Consult Nephrology Routine Hospital Course (1) Fever: ddx fairly broad given nonspecific sx and immune suppression - however lack of urinary sx (and the presence of them before) makes UTI unlikely, lack of respiratory sx makes pneumonia unlikely, no evidence of cellulitis. had diarrhea but started after zosyn and negative Cdiff therefore likely was zosyn side effect (see below). blood cultures no growth to date. viral possible - no sx or contacts suspicious for covid and other viruses too myriad to test and results would not exchange mechanic - this seems to be the most likely the way she was ill and then better nonfocally/nonspecifically. tick possible - lyme negative (but amox for enterococcus would have possibly partially treated) and peripheral smear negative but can miss somewhere around 40% of anaplasmosis - was on empiric doxy but got better far faster than expected given that most people febrile/ill from tick borne illnesses in the hospital take ~48hrs to defeveresce and she would not be likley to be faster than avg given her immunocompromised state. that said, we discussed that if it was something bacterial then tick borne would be about the only possibility -- and if fevers were to recur then treating empirically as such would be the most logical course of action. to that end, we discussed starting doxy only if she had recurrent fever, and only if it recurred in the next few days. beyond that, would want her re-seen. (2) Diarrhea: started AFTER fevers, started after admission, Cdiff negative, improved. (3) Tension headache: no s/s meningitis. headache comes and goes. follow. (4) Gastritis: Continue ppi (5) Non-celiac gluten sensitivity: Gluten-free diet (6) Immunocompromised state: Continue chronic suppressive agents (7) Renal transplant recipient: nephro input appreciated, immunosuppressants a s above (8) Restless legs syndrome: Continue Requip 0.25 mg p.o. at bedtime. (9) HTN (hypertension): Continue carvedilol 18.75 mg p.o. twice daily. BP acceptable (10) Recurrent Clostridium difficile diarrhea: Dificid 200 mg p.o. daily (11) DVT prophylaxis: ambulation Total Time Total Time Spent Total Time Spent (In Minutes): >30 Discharge Plan Discharge Items Patient Disposition: Home - Self-Care Reason For Visit: UTI, IMMUNOCOMPROMISED Discharge Diagnosis: febrile illness (see below) Condition on Discharge: Good Activity: Resume your previous activity Non-emergency contact: Primary Care Provider Call non-emergency contact if: you have any medication questions, your symptoms worsen and your temperature is above 101 Follow-up/Referrals: Shruthi Mcbride DO [Primary Care Provider] - 06/17/20 9:30 am (Please call [phone] if you need to reschedule this appointment) Diet: Regular Addtl Attending Provider Instructions: febrile illness -in the end, this appears most consistent with a viral illness - as we discussed, viruses are really good at spreading - and because your immune system is more compromised, you easily could have picked up a virus from family who had it mildly enough to not really be symptomatic (for your family - this didn't look like COVID clinically, and because the nasal swab picks up virus in the nose it's fairly likely the test would be negative regardless) - and there are so many different viruses that can cause these kinds of syndromes that there's not any benefit to you in sending out viral titers that take a week to come back and have a lot of false negatives. -as we discussed, the alternative explanation would be that tick borne illnesses (lyme and anaplasmosis) are also really common around here - and testing has a high false negative rate - so it's reasonable to keep this on the list. that said, since you got better so quickly, it's way more likely that you got better because you were getting better, not that you got better because of the do xycycline. typically when someone is sick with a tick borne illness, we see it take a good 48hrs for fevers to go away. since your immune system is down, i wouldn't expect you to get better faster than an average person. therefore to reiterate it's pretty likely that you didn't have a tick borne illness -that said, since it's "on the list" and if you were to spike a fever again, that would be the next step, we'll go ahead and send in a prescription for doxy to save you trouble if you have symptoms over the next few days. as an arbitrary but reasonable line in the sand, if you were to have a fever between now and monday i would then have you just go ahead and start the doxycycline. if it's a fever after monday, i would want you looked at to make sure nothing new developed (the reason for that would be that if we suppressed a fever from a tick borne illness with the antibiotics you were on, i'd expect it to come back in a few days, but not really much more than that) -if you do start the doxycycline - remember that it can make you really sun sensitive - it doesn't happen to everyone, but sometimes it can be 15 minutes to cause a blistering sunburn - so if you do have to start it, then wear long sleeves/sunblock - basically pretend you're at the beach -if you do have a fever in the next few days, and you do have to start the doxycycline, we'd then expect symptoms/fever to go away in no more than 72 hours - so if you start it, and still have fevers 3+ days later - then we'd want you checked out right away as well ----->despite all of that, again this most likely is viral and is already getting better, and i strongly suspect this will just fade out and you'll just continue to feel better diarrhea -this almost certainly was a side effect to the zosyn. usually once we stop it, the really bad diarrhea goes away in about a day, so we're already past the worst of it most likely. over today if you need a little more imodium that would be OK - past that, i'd only want you using it if things are still really bad. your Cdiff was negative here, but of course if things really got worse again, we'd want you checked out again your blood cultures have been negative, urine culture is not showing meaningful growth, your chest xray did not show pneumonia (and more importantly you didn't have any symptoms or exam findings consistent with pneumonia), and you didn't show any areas of skin/rashes consistent with cellulitis -- so really the "big bad" bacterial infections were also ruled out. (and your kidney numbers - the basic metabolic panel that was still pending when we talked - showed a creatinine well within your normal range at 1.33) Pending Studies at Discharge: No Stand-Alone Forms: My [facility], Smoking Cessation Medications and DC Order Prescriptions: New doxycycline hyclate 100 mg Capsule 100 mg PO BID Qty: 28 RF: 0 Continued prednisone 5 mg tablet 5 mg PO QAM Qty: 90 RF: 3 mycophenolate sodium [Myfortic] 180 mg tablet,delayed release (DR/EC) 360 mg PO BID Qty: 360 RF: 1 ropinirole [Requip] 0.25 mg tablet 0.25 mg PO HS Qty: 90 RF: 2 carvedilol 6.25 mg tablet 18.75 mg PO BID Qty: 540 RF: 3 allopurinol 300 mg Tablet 300 mg PO TUTHSA RF: 0 Levemir FlexTouch U-100 Insuln 100 unit/mL (3 mL) Insulin Pen 9 units subcut HS RF: 0 tamsulosin 0.4 mg capsule 0.4 mg PO BID RF: 0 pantoprazole 40 mg tablet,delayed release (DR/EC) 40 mg PO QAM RF: 0 azelastine 137 mcg (0.1 %) Aerosol,[place] 2 spray INTRANASAL Q12H PRN (Reason: Nasal Congestion) RF: 0 fluticasone propionate [Flonase Allergy Relief] 50 mcg/actuation [place],Suspension 2 spray INTRANASAL DAILY PRN (Reason: SEASONAL ALLERGIES) RF: 0 sirolimus 1 mg tablet 2 mg PO QAM RF: 0 repaglinide 0.5 mg tablet 0.5 mg PO TID PRN (Reason: bs) RF: 0 Premarin 0.625 mg Tablet 0.625 mg PO WE RF: 0 PNV cmb#95-ferrous fumarate-FA [] 28 mg iron- 800 mcg Tablet 1 tab PO QAM RF: 0 [id number] [Fioricet] 50-300-40 mg Capsule 1 cap PO Q6H PRN (Reason: Migraine Headache) RF: 0 venlafaxine 75 mg capsule,extended release 24hr 75 mg PO QAM RF: 0 Discharge Orders: Discharge Order (Routine); Ordered 06/11/20 Ordered By: Garland Jorge Admission Data Admit Date/Time: 06/09/20 12:26 Attending Provider: Garland Jorge Admit Provider: Eugene Martinez Primary Care Provider: Shruthi Mcbride Other Providers: Eugene Martinez ; Katheryn Rodgers Other Interventions: Discharge Summary Assessment (RN) Last Done: 06/11/20 10:45 Coding Level of Care Code D/C Day Management >30 mins Diagnoses Fever R50.9 Fever type: unspecified Diarrhea R19.7 Tension headache G44.209 Gastritis K29.70 Non-celiac gluten sensitivity K90.41 Immunocompromised state D89.9 Renal transplant recipient Z94.0 Restless legs syndrome G25.81 HTN (hypertension) I10 Recurrent Clostridium difficile diarrhea A04.71 DVT prophylaxis Z29.9
== END 2020-06-11 11:05 | disposition home or self-care (01) | DRG 689 ==
LOC: ED 08:03 → SUATTDRO 12:26 → 2W 12:26

== ENCOUNTER 2020-06-15 15:52 | Inpatient (IN) ==
[2020-06-15] MEDS ORDERED: SODIUM CHLORIDE 0.9% 1000ML 1,000 ML IV SCH (16:45)
--- NOTE | 2020-06-15 16:51 | Emergency Department Note ---
Impression & Plan Immunosuppressed status, Fever, Diarrhea ED Provider Note NAME: ANAYA PERSAUD AGE: 60 SEX: F : 1960 ARRIVES VIA: Walk-In INFORMANT: Patient, ED PROVIDER(S): Danny Betancourt DO CHIEF COMPLAINT: Fever HPI: The patient is a 60-year-old female who presented to the emergency department at the request of her primary care physician for an evaluation of fever. The patient's been having fever since last week. She also started no ticing loose bowel movements over the last 2 days. She has a history of C. difficile as well as multiple fecal transplants. She has a history of renal transplant. When she called her family doctor today she was referred to the emergency department for laboratory studies as well as IV hydration. The patient denies having any cough. She was recently tested for COVID-19 was negative. She denies having any abdominal pain but does note abdominal distention and bloating. ROS: See above HPI for pertinent positives & negatives. A total of 10 systems reviewed and were otherwise negative. PAST MEDICAL HISTORY: See Below PAST SURGICAL HISTORY: See Below FAMILY HISTORY: See Below SOCIAL HISTORY: See Below HOME MEDICATIONS: See Below ALLERGIES: See Below VITALS: See Below PHYSICAL EXAMINATION: GENERAL: Patient is awake alert in no acute distress patient is resting comfortably and showing no signs of anxiety EYES: The conjunctivae are clear. The pupils are round and reactive. EARS, NOSE, MOUTH AND THROAT: The nose is without any evidence of any deformity. Mucous membranes are moist. Tongue is midline. NECK: The neck is nontender and supple. RESPIRATORY: Normal respiratory effort is noted there is no evidence of wheezing rhonchi or rales CARDIOVASCULAR: Regular rate and rhythm noted there no murmurs rubs or gallops normal S1 normal S2. GASTROINTESTINAL: The abdomen is mildly distended but soft. There is no guarding or rigidity noted. MUSCULOSKELETAL/EXTREMITIES: There is no evidence of gross deformity full range of motion is noted in the hips and shoulders. SKIN: There is no obvious evidence of any rash. There are no petechiae, pallor or cyanosis noted. NEUROLOGIC: Patient is awake alert and oriented x3 strength is symmetric patellar reflexes are 2+ bilaterally MEDICAL DECISION MAKING: The patient is a 60-year-old female who is been in our facility multiple times for fever. She started having diarrhea over the last few days. She does have a history of C. difficile which is been very severe requiring fecal transplant. She started having worsening diarrhea symptoms and fever today. She was advised to come to the emergency department by her primary care physician for IV fluids. She does have a history of immunocompromise state as well as renal transplant. She was treated with IV fluids. I discussed the patient's condition with the on-call [facility] hospitalist group. They have agreed to evaluate the patient in the emergency department for further management and disposition. Triage Nursing notes reviewed. Prior medical records reviewed Vital Signs: reviewed and remarkable for elevated blood pressure Differential diagnosis: Viral syndrome, otitis, pharyngitis, pneumonia, influenza, meningitis, urinary tract infection, sepsis, bacteremia, as well as other pathologies. ER treatment provided: See below Diagnostics interpreted by me: ECG: none Cardiac Monitoring: An order was placed for continuous cardiac monitoring. The monitor shows a rate of 75 bpm with sinus rhythm. Laboratory studies: As stated above and show below. Imaging studies: See below Consultation(s): I discussed this case with the [facility] hospitalist group. Past Med/Surg History Medical History Abdominal pain Acute gout Acute pyelonephritis Acute renal failure Allergic rhinitis due to allergen CKD (chronic kidney disease) stage 4, GFR 15-29 ml/min Clostridium difficile diarrhea Dehydration Diarrhea of presumed infectious origin Fever HTN (hypertension) Immunosuppressed status Intractable vomiting Migraine Pancreatitis Recurrent Clostridium difficile diarrhea SBO (small bowel obstruction) Sepsis Sinus congestion SIRS (systemic inflammatory response syndrome) Unspecified asthma UTI (lower urinary tract infection) (10/21/14) Surgical History History of hernia surgery Hx of appendectomy Hx of cholecystectomy Kidney replaced by transplant x2. most recent 1 year ago Family History Other Family history non-contributory Social History Smoking Status: Former smoker Second Hand Exposure: No; Hx Alcohol Use: Yes Alcohol type: beer Hx Substance Use: No Preferred Language: [place]er Communication Ability: Effective Resp Ther Required: No Beliefs That Will Affect Care: None marital status: Current Living Situation: Spouse Feels Safe at Home: Yes Assistive Devices: Glasses Allergies Allergies Allergy/AdvReac Type Severity Reaction Status Date / Time Iodinated Contrast Media Allergy Severe Hx Kidney Verified 06/15/20 19:57 Transplant [id number] Reductase Allergy Severe "PANCREATIT Verified 06/15/20 19:57 Inhibitor IS" sumatriptan Allergy Severe seizure Verified 06/15/20 19:57 hydrochlorothiazide Allergy Mild Unknown Verified 06/15/20 19:57 Sulfa (Sulfonamide Allergy Mild . Verified 06/15/20 19:57 Antibiotics) triamterene Allergy Mild Unknown Verified 06/15/20 19:57 atorvastatin Allergy Unknown ? Verified 06/15/20 19:57 doxycycline Allergy Unknown UNKNOWN Verified 06/15/20 19:57 levofloxacin Allergy Unknown joint pain Verified 06/15/20 19:57 adhesive AdvReac Unknown SKIN TEAR Verified 06/15/20 19:57 Cipro AdvReac Unknown FATIGUE Verified 01/20/18 21:00 ciprofloxacin AdvReac Unknown FATIGUE Verified 06/13/20 12:01 morphine AdvReac Unknown INEFFECTIVE Verified 06/13/20 12:01 Home Meds Home Medications Medication Instructions Recorded Confirmed Levemir FlexTouch U-100 Insuln 9 units SUBCUT HS 09/01/18 06/15/20 allopurinol 300 mg PO TUTHSA 09/01/18 06/15/20 tamsulosin 0.4 mg PO BID 03/26/19 06/15/20 azelastine 2 spray INTRANASAL Q12H PRN 07/10/19 06/15/20 fluticasone propionate [Flonase 2 spray INTRANASAL DAILY PRN 07/10/19 06/15/20 Allergy Relief] PNV cmb#95-ferrous fumarate-FA 1 tab PO QAM 04/13/20 06/15/20 [] Premarin 0.625 mg PO WE 04/13/20 06/15/20 soffrjzmqj-qwfsjbjsnvrgr-mkdx 1 cap PO Q6H PRN 04/13/20 06/15/20 [Fioricet] repaglinide 0.5 mg PO TID PRN 04/13/20 06/15/20 sirolimus 2 mg PO QAM 04/13/20 06/15/20 pantoprazole 40 mg PO QAM 05/23/20 06/15/20 venlafaxine 75 mg PO QAM 06/09/20 06/15/20 acetaminophen [Tylenol Extra 1,000 mg PO DIRECTED PRN 06/13/20 06/15/20 Strength] Previous Rx's Medication Instructions Recorded prednisone 5 mg tablet 5 mg PO QAM #90 tab 05/02/19 mycophenolate sodium 180 mg 360 mg PO BID #360 tab 11/04/19 tablet,delayed release ropinirole 0.25 mg tablet 0.25 mg PO HS #90 tab 01/27/20 carvedilol 6.25 mg tablet 18.75 mg PO BID #540 tab 03/18/20 doxycycline hyclate 100 mg PO BID #28 cap 06/11/20 Results & Data (ED) Vital Signs Vital Signs - 24 hr 06/15/20 16:02 06/15/20 17:30 06/15/20 18:00 Temperature 36.6 C Temperature Source Oral Pulse Rate 84 62 58 L Pulse Rate [Left Finger] 58 L Pulse Rate from SpO2 Sensor 57 L 58 L Respiratory Rate 18 18 17 Respiratory Effort / Characteristics Non-Labored Spontaneous Respiratory Depth Normal Respiratory Pattern Regular Blood Pressure 107/64 104/53 L 127/64 Blood Pressure [Left Arm] 104/53 L Blood Pressure Mean 78 69 89 Blood Pressure Mean [Left Arm] 70 Blood Pressure Position Sitting Pulse Oximetry 98 100 100 Oxygen Delivery Method Room Air Sepsis Recent Fever Within 48 Hours No Sepsis New/Unexplained Change in Mental Status N/A Sepsis Action Taken by Nursing No Action Required 06/15/20 18:30 06/15/20 19:37 Temperature Temperature Source Pulse Rate 53 L Pulse Rate [Left Finger] 64 Pulse Rate from SpO2 Sensor 53 L Respiratory Rate 17 18 Respiratory Effort / Characteristics Respiratory Depth Respiratory Pattern Blood Pressure 124/59 L Blood Pressure [Left Arm] 121/68 Blood Pressure Mean 69 Blood Pressure Mean [Left Arm] 85 Blood Pressure Position Pulse Oximetry 97 100 Oxygen Delivery Method Room Air Sepsis Recent Fever Within 48 Hours Sepsis New/Unexplained Change in Mental Status Sepsis Action Taken by [facility] Medications Current Medication List: was personally reviewed by me Laboratory Data Attestation: I reviewed the patient's lab results. Result diagrams: 06/15/20 16:55 06/15/20 16:55 Lab Results 06/15/20 06/15/20 06/15/20 Range/Units 16:55 16:55 16:55 WBC 7.84 (4.8-10.8) K/uL RBC 3.94 L (4.2-5.4) M/uL Hgb 11.4 L (12.0-16.0) g/dL Hct 35.0 L (37-47) % MCV 88.8 (80-100) fL MCH 28.9 (25-34) pg MCHC 32.6 (32-36) g/dL RDW Std Deviation 48.0 H (36.4-46.3) fL RDW Coeff of Valentina 14.6 H (11.5-14.5) % Plt Count 189 (130-400) K/uL MPV 9.7 (7.4-10.4) fL Immature Gran % (Auto) 0.1 % Neut % (Auto) 82.9 % Lymph % (Auto) 7.9 % [place] % (Auto) 8.7 % Eos % (Auto) 0.3 % Baso % (Auto) 0.1 % Neut # (Auto) 6.50 (1.4-6.5) K/uL Lymph # (Auto) 0.62 L (1.2-3.4) K/uL [place] # (Auto) 0.68 H (0.11-0.59) K/uL Eos # (Auto) 0.02 (0-0.5) K/uL Baso # (Auto) 0.01 (0-0.2) K/uL Immature Gran # (Auto) 0.01 (0.00-0.02) K/uL ESR 61 H (0-21) mm/hr Sodium 135 L (136-145) mmol/L Potassium 3.7 (3.5-5.1) mmol/L Chloride 103 (98-107) mmol/L Carbon Dioxide 20 L (21-32) mmol/L Anion Gap 12.0 H (3-11) BUN 16 (7-18) mg/dl Creatinine 1.50 H (0.6-1.2) mg/dl Est Cr Clr Drug Dosing 39.7 ml/min Est GFR ( Amer) 43.1 Est GFR (Non-Af Amer) 37.2 BUN/Creatinine Ratio 10.8 (10-20) Glucose 232 H (70-99) mg/dl Calcium 9.3 (8.5-10.1) mg/dl Total Bilirubin 0.5 (0.2-1) mg/dl AST 31 (15-37) U/L ALT 29 (12-78) U/L Alkaline Phosphatase 107 (45-117) U/L C-Reactive Protein 22.50 H (0-0.29) mg/dl Total Protein 7.8 (6.4-8.2) gm/dl Albumin 3.2 L (3.4-5.0) gm/dl Globulin 4.6 H (2.5-4.0) gm/dl Albumin/Globulin Ratio 0.7 L (0.9-2) Procalcitonin (0-0.5) ng/ml Urine Color Urine Appearance (Clear) Urine pH (4.5-7.5) Ur Specific [place] (1.000-1.030) Urine Protein (Negative) Urine Glucose (UA) (Negative) Urine Ketones (Negative) Urine Blood (Negative) Urine Nitrite (Negative) Urine Bilirubin (Negative) Urine Urobilinogen (Negative) Ur Leukocyte Esterase (Negative) Urine WBC (Auto) (0-5) /hpf Urine RBC (Auto) (0-4) /hpf U Hyaline Cast (Auto) (0-5) /lpf U Epithel Cells (Auto) (0-5) /lpf Urine Bacteria (Auto) (Negative) Granular Casts (0) /lpf Stl C. diff Tox B Gene (Neg) 06/15/20 06/15/20 06/15/20 Range/Units 16:55 17:20 19:33 WBC (4.8-10.8) K/uL RBC (4.2-5.4) M/uL Hgb (12.0-16.0) g/dL Hct (37-47) % MCV (80-100) fL MCH (25-34) pg MCHC (32-36) g/dL RDW Std Deviation (36.4-46.3) fL RDW Coeff of Valentina (11.5-14.5) % Plt Count (130-400) K/uL MPV (7.4-10.4) fL Immature Gran % (Auto) % Neut % (Auto) % Lymph % (Auto) % [place] % (Auto) % Eos % (Auto) % Baso % (Auto) % Neut # (Auto) (1.4-6.5) K/uL Lymph # (Auto) (1.2-3.4) K/uL [place] # (Auto) (0.11-0.59) K/uL Eos # (Auto) (0-0.5) K/uL Baso # (Auto) (0-0.2) K/uL Immature Gran # (Auto) (0.00-0.02) K/uL ESR (0-21) mm/hr Sodium (136-145) mmol/L Potassium (3.5-5.1) mmol/L Chloride (98-107) mmol/L Carbon Dioxide (21-32) mmol/L Anion Gap (3-11) BUN (7-18) mg/dl Creatinine (0.6-1.2) mg/dl Est Cr Clr Drug Dosing ml/min Est GFR ( Amer) Est GFR (Non-Af Amer) BUN/Creatinine Ratio (10-20) Glucose (70-99) mg/dl Calcium (8.5-10.1) mg/dl Total Bilirubin (0.2-1) mg/dl AST (15-37) U/L ALT (12-78) U/L Alkaline Phosphatase (45-117) U/L C-Reactive Protein (0-0.29) mg/dl Total Protein (6.4-8.2) gm/dl Albumin (3.4-5.0) gm/dl Globulin (2.5-4.0) gm/dl Albumin/Globulin Ratio (0.9-2) Procalcitonin 0.34 (0-0.5) ng/ml Urine Color Yellow Urine Appearance Clear (Clear) Urine pH 5.0 (4.5-7.5) Ur Specific [place] 1.016 (1.000-1.030) Urine Protein 1+ H (Negative) Urine Glucose (UA) Negative (Negative) Urine Ketones Negative (Negative) Urine Blood Negative (Negative) Urine Nitrite Negative (Negative) Urine Bilirubin Negative (Negative) Urine Urobilinogen Negative (Negative) Ur Leukocyte Esterase Negative (Negative) Urine WBC (Auto) 1-5 (0-5) /hpf Urine RBC (Auto) 0-4 (0-4) /hpf U Hyaline Cast (Auto) 1-5 (0-5) /lpf U Epithel Cells (Auto) >30 H (0-5) /lpf Urine Bacteria (Auto) Negative (Negative) Granular Casts 1-5 H (0) /lpf Stl C. diff Tox B Gene Negative Cdiff Gene (Neg) Administered Medications Discontinued Medications Sodium Chloride (Nss 1000ml) 1,000 mls @ 999 mls/hr IV .Q1H1M RADHA Stop: 06/15/20 17:45 Last Infusion: 06/15/20 18:47 Dose: 0 mls/hr Documented by: [id number] Admin: 06/15/20 16:57 Dose: 999 mls/hr Documented by: [id number] Imaging Data Radiologist's Impression: KUB CLINICAL HISTORY: Fever. FINDINGS: An AP supine abdominal radiograph is compared to study dated 06/24/2017 and correlated with abdominal CT dated 06/13/2020. There is a nonobstructed abdominal bowel gas pattern. No evidence of intraperitoneal free air is seen on this supine image. Numerous surgical clips are scattered throughout the abdomen. Large phleboliths are noted in the pelvis. Calcific breast implants are partially imaged. The skeletal structures are osteopenic and appear intact. There is mild lumbosacral spondylosis. IMPRESSION: Nonobstructed abdominal bowel gas pattern. Electronically signed by: Bradley Rivas M.D. 06/15/2020 5:17 PM Dictated: 06/15/201714 Transcribed: 06/15/201714 SINGLE VIEW CHEST CLINICAL HISTORY: Fever. FINDINGS: An AP, portable, upright chest radiograph is compared to study dated 06/13/2020. Calcified breast implants project over the lung bases. The cardiomediastinal silhouette is unremarkable. There is bibasilar scarring/atelectasis. The lungs and pleural spaces are otherwise clear. No pneumothorax is seen. The skeletal structures are osteopenic. The bony thorax is grossly intact. IMPRESSION: No active disease in the chest. ACT 112: Negative or not required by law. Electronically signed by: Bradley Rivas M.D. 06/15/2020 5:17 PM Dictated: 06/15/201716 Transcribed: 06/15/201716 Blood Pressure Blood Pressure Findings: Elevated blood pressure Blood Pressure Disposition: further management by hospitalist Discharge Plan Visit Data Chief Complaint: Fever Stated Complaint: fever, chills, diarrhea ED Provider: Danny Betancourt Discharge Problem: Immunosuppressed status, Fever, Diarrhea Patient Disposition: Admitted As Inpatient Condition: Good Discharge Instructions Interventions: ED Discharge Assessment Last Done: 06/15/20 20:52
[2020-06-15 17:10] LABS: Basophils # (auto) 0.01 K/uL (0-0.2); Basophils % (auto) 0.1 %; Eosinophils # (auto) 0.02 K/uL (0-0.5); Eosinophils % (auto) 0.3 %; Hemoglobin 11.4 g/dL (12.0-16.0); Immature Granulocytes # (auto) 0.01 K/uL (0.00-0.02); Immature Granulocytes % (auto) 0.1 %; Lymphocytes # (auto) 0.62 K/uL (1.2-3.4); Lymphocytes % (auto) 7.9 %; Mean Corpuscular Hemoglobin 28.9 pg (25-34); Mean Corpuscular Hgb Conc 32.6 g/dL (32-36); Mean Corpuscular Volume 88.8 fL (80-100); Mean Platelet Volume 9.7 fL (7.4-10.4); Monocytes # (auto) 0.68 K/uL (0.11-0.59); Monocytes % (auto) 8.7 %; Neutrophils % (auto) 82.9 %; Platelet Count 189 K/uL (130-400); RDW Coefficient of Variation 14.6 % (11.5-14.5); Red Blood Count 3.94 M/uL (4.2-5.4); White Blood Count 7.84 K/uL (4.8-10.8)
--- NOTE | 2020-06-15 17:18 | XRay Report ---
KUB CLINICAL HISTORY: Fever. FINDINGS: An AP supine abdominal radiograph is compared to study dated 06/24/2017 and correlated with abdominal CT dated 06/13/2020. There is a nonobstructed abdominal bowel gas pattern. No evidence of in traperitoneal free air is seen on this supine image. Numerous surgical clips are scattered throughout the abdomen. Large phleboliths are noted in the pelvis. Calcific breast implants are partially image d. The skeletal structures are osteopenic and appear intact. There is mild lumbosacral spondylosis. IMPRESSION: Nonobstructed abdominal bowel gas pattern. Electronically signed by: Bradley Rivas M.D. 06/15/2020 5:17 PM
--- NOTE | 2020-06-15 17:19 | XRay Report ---
SINGLE VIEW CHEST CLINICAL HISTORY: Fever. FINDINGS: An AP, portable, upright chest radiograph is compared to study dated 06/13/2020. Calcified breast implants project over the lung bases. The cardiomediastinal silhouette is unremarkable. There is bibasilar scarring/atelectasis. The lungs and pleural spaces are otherwise clear. No pneumothorax is seen. The skeletal structures are osteopenic. The bony thorax is grossly intact. IMPRESSION: No active disease in the chest. ACT 112: Negative or not required by law. Electronically signed by: Bradley Rivas M.D. 06/15/2020 5:17 PM
[2020-06-15 17:31] LABS: Albumin Level 3.2 gm/dl (3.4-5.0); BUN Creatinine Ratio 10.8 (10-20); Calcium 9.3 mg/dl (8.5-10.1); Creatinine Clr Calc Pharmacy 39.7 ml/min; Est GFR (African American) 43.1; Est GFR (Non-African American) 37.2; Potassium 3.7 mmol/L (3.5-5.1)
[2020-06-15 17:38] LABS: Albumin Globulin Ratio 0.7 (0.9-2); Bilirubin,Total 0.5 mg/dl (0.2-1); C Reactive Protein 22.5 mg/dl (0-0.29); Globulin 4.6 gm/dl (2.5-4.0); Total Protein 7.8 gm/dl (6.4-8.2)
[2020-06-15 19:46] LABS: Appearance Urine Clear (Clear); Bacteria Urine Automated Negative (Negative); Bilirubin Urine Negative (Negative); Blood Urine Negative (Negative); Color Urine Yellow; Epithelial Cell Urine Auto >30 /lpf (0-5); Glucose Urine UA Negative (Negative); Ketones Urine Negative (Negative); Leukocyte Esterase Urine Negative (Negative); Nitrite Urine Negative (Negative); Protein Urine 1+ (Negative); RBC Urine Automated 0-4 /hpf (0-4); Specific Gravity Urine 1.016 (1.000-1.030); Urobilinogen Urine Negative (Negative)
--- NOTE | 2020-06-15 20:18 | History & Physical Report ---
Date of Service June 15, 2020 Assessment & Plan (1) Fever: Patient currently afebrile, hemodynamically stable, non-toxic in appearance. ?colitis as patient reporting copious amounts of watery diarrhea. C. diff is negative. UA and CXR unremarkable. -Follow norovirus PCR sent by ER -Check blood cultures x 2 sets -Stool cultures -Anaplasmosis DNA -Repeat CXR, PA and lateral in AM after IVF - patient with wheezing in MARY JO, ?PNA -Will avoid empiric antibiotics at this time due to history of c. diff -Should patient become septic in appearance will need to hold immunosuppressants and consult Nephrology Present on Admission?: Yes (2) Diarrhea: Profuse, watery diarrhea in immunocompromised host. History of c. 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 C. diff gene negative now. ?Inf ectious/inflammatory colitis. ?CMV colitis or parasitic in patient on chronic immunosuppressant therapy -Check CT abdomen with oral contrast -Check fecal leukocytes and culture -Stool O & P -Maintain gluten-free diet. Patient found to be non-celiac, gluten sensitive. She has been eating a gluten-free diet at home Present on Admission?: Yes (3) H/O kidney transplant: Mildly elevated BUN and Cr most likely secondary to volume depletion. Transplants are non-tender -Avoid nephrotoxic agents -Continue Sirolimus and Mycophenolate -Repeat chemistry panel in AM -Consider Neprhology consultation if renal function continues to decline Present on Admission?: Yes (4) Migraine: Patient currently with complaint of migraine. She does not wish to take her Fioricet at this time -Tylenol PRN -Will give oxycodone 5mg po x 1 -Zofran PRN nausea -Continue Fioricet as needed Present on Admission?: Yes (5) Non-celiac gluten sensitivity: Noted -Gluten free diet as tolerated Present on Admission?: Yes (6) Gastritis: Recently diagnosed. Patient denies abdominal pain, melena or hematochezia at present -Continue Protonix 40 mg po daily Present on Admission?: Yes (7) Depression: Chronic -Continue Venlafaxine 75mg po qAM Present on Admission?: Yes (8) Diabetes mellitus: Patient with DM, elevated blood glucose at present 232. Last [id number]=2.8 on 05/08/20 -Hold oral agents while inpatient -Continue Levemir 9u qHS -ISS -Goal blood sugar 100 - 140 Present on Admission?: Yes (9) Hyperlipidemia: Chronic. Patient is statin intolerant Present on Admission?: Yes (10) Hypertension: Blood pressure well controlled at present -Continue Carvedilol Present on Admission?: Yes (11) Restless legs syndrome: Chronic -Continue Ropinirole Present on Admission?: Yes (12) Gout: Chronic. Well controlled. Patient denies joint pain or inflammation at present -Continue Allopurinol Present on Admission?: Yes (13) CKD (chronic kidney disease) stage 4, GFR 15-29 ml/min: Mildly elevated BUN and Cr from baseline. Patient appears clinically dry in setting of diarrheal losses -IVF NSS at 100mL/hr x 2 L -Repeat chemistry panel in AM -Avoid nephrotoxic agents -Renal dosing where needed F/E/N - NSS at 100mL/hr x 2 liters, monitor electrolytes and replete as needed, AHA/CC/Gluten free diet as tolerated Ppx - Continue Protonix. Low risk for DVT Code - Full per discussion with patient DIspo - Observation to medical floor History of Present Illness Chief Complaint: fever, chills, diarrhea Primary Care Provider: Shruthi Mcbride DO Sy[place] Tawnya is a 60yo female with history of renal transplant x 2, HTN, DM, HLP presenting at request of her PCP for workup of fever. Patient reports developing fever and chills on 06/11/20. She felt fine on 06/12/20 then again developed fever on 06/13/20 as well as diarrhea. She reports her fever being 101 - 102. It is temporarily relieved by Tylenol but returns just prior to the next dose of Tylenol. Her last fever was recorded today at 12:30, she does not recall how high. Her diarrhea has been constant over the last 48 hours. She reports copious amount of watery diarrhea. No blood/mucus. She has night time symptoms, +fecal incontinence, no relation to meals or PO intake. She has no abdominal pain, gas or pain with bowel movements. She does report a significant amount of bloating and abdominal distention. Patient denies recent travel. No sick contacts or contacts with similar symptoms. No ingestion of raw/undercooked food. She drinks bottled water. Patient does get a migraine with her fever. She is complaining of chills, body aches, fatigue and poor appetite, occasional nausea. She denies neck stiffness, ear pain, dental or facial pain, sore throat, cough, SOB, abdominal pain, vomiting, rashes, joint pain/inflammation. Denies tick exposure. No concerns for Covid-19. She had a Covid-19 test performed on 06/13/20 that was negative. Patient was treated for a Enterococcus faecalis UTI in April. She was admitted to [facility] from 06/09/20 - 06/11/20 with complaint of fever, chills and headache. Cultures were unrevealing. She was empirically treated with Zosyn. Patient was evaluated by GI in April for gastritis. She had an EGD with biopsy performed as well as colonoscopy with diverticulosis. She was started on Protonix BID and a gluten-free diet. ER Course: NSS x 1L Allergies Allergy/AdvReac Type Severity Reaction Status Date / Time Iodinated Contrast Media Allergy Severe Hx Kidney Verified 06/15/20 19:57 Transplant [id number]-Zwi-Ajt Reductase Allergy Severe "PANCREATIT Verified 06/15/20 19:57 Inhibitor IS" sumatriptan Allergy Severe seizure Verified 06/15/20 19:57 hydrochlorothiazide Allergy Mild Unknown Verified 06/15/20 19:57 Sulfa (Sulfonamide Allergy Mild . Verified 06/15/20 19:57 Antibiotics) triamterene Allergy Mild Unknown Verified 06/15/20 19:57 atorvastatin Allergy Unknown ? Verified 06/15/20 19:57 doxycycline Allergy Unknown UNKNOWN Verified 06/15/20 19:57 levofloxacin Allergy Unknown joint pain Verified 06/15/20 19:57 adhesive AdvReac Unknown SKIN TEAR Verified 06/15/20 19:57 Cipro AdvReac Unknown FATIGUE Verified 01/20/18 21:00 ciprofloxacin AdvReac Unknown FATIGUE Verified 06/13/20 12:01 morphine AdvReac Unknown INEFFECTIVE Verified 06/13/20 12:01 Home Medications Home Medications Medication Instructions Recorded Confirmed Type Levemir FlexTouch U-100 Insuln 9 units SUBCUT HS 09/01/18 06/15/20 History allopurinol 300 mg PO TUTHSA 09/01/18 06/15/20 History tamsulosin 0.4 mg PO BID 03/26/19 06/15/20 History prednisone 5 mg tablet 5 mg PO QAM #90 tab 05/02/19 06/15/20 Rx azelastine 2 spray INTRANASAL Q12H PRN 07/10/19 06/15/20 History fluticasone propionate [Flonase 2 spray INTRANASAL DAILY PRN 07/10/19 06/15/20 History Allergy Relief] mycophenolate sodium 180 mg 360 mg PO BID #360 tab 11/04/19 06/15/20 Rx tablet,delayed release ropinirole 0.25 mg tablet 0.25 mg PO HS #90 tab 01/27/20 06/15/20 Rx carvedilol 6.25 mg tablet 18.75 mg PO BID #540 tab 03/18/20 06/15/20 Rx PNV cmb#95-ferrous fumarate-FA 1 tab PO QAM 04/13/20 06/15/20 History [] Premarin 0.625 mg PO WE 04/13/20 06/15/20 History phgymkqoxs-syougdanbeuuj-kxng 1 cap PO Q6H PRN 04/13/20 06/15/20 History [Fioricet] repaglinide 0.5 mg PO TID PRN 04/13/20 06/15/20 History sirolimus 2 mg PO QAM 04/13/20 06/15/20 History pantoprazole 40 mg PO QAM 05/23/20 06/15/20 History venlafaxine 75 mg PO QAM 06/09/20 06/15/20 History doxycycline hyclate 100 mg PO BID #28 cap 06/11/20 06/15/20 Rx acetaminophen [Tylenol Extra 1,000 mg PO DIRECTED PRN 06/13/20 06/15/20 History Strength] Past Med/Surg History Medical History Abdominal pain Acute gout Acute pyelonephritis Acute renal failure Allergic rhinitis due to allergen CKD (chronic kidney disease) stage 4, GFR 15-29 ml/min Clostridium difficile diarrhea Dehydration Diarrhea of presumed infectious origin Fever HTN (hypertension) Immunosuppressed status Intractable vomiting Migraine Pancreatitis Recurrent Clostridium difficile diarrhea SBO (small bowel obstruction) Sepsis Sinus congestion SIRS (systemic inflammatory response syndrome) Unspecified asthma UTI (lower urinary tract infection) (10/21/14) Surgical History History of hernia surgery Hx of appendectomy Hx of cholecystectomy Kidney replaced by transplant x2. most recent 1 year ago Family History Other Family history non-contributory Social History Smoking Status: Former smoker Smoking End Date: 1983; Second Hand Exposure: No; Hx Alcohol Use: Yes Alcohol type: beer Hx Substance Use: No Preferred Language: Kazakh Communication Ability: Effective Manager Of Digital Required: No Beliefs That Will Affect Care: None marital status: Current Living Situation: Spouse Other Information That Helps Us Care for You: No Feels Safe at Home: Yes Safety Concerns: Feels Safe At This Time Assistive Devices: Glasses Review of Systems Review of Systems: All systems reviewed & are unremarkable except as noted in HPI & below +bloating +fatigue +sleepy +fever Physical Exam Physical Exam: General: patient resting comfortably, NAD, non-toxic in appearance, AA&O x 4 Skin: warm, dry, intact, no rashes or lesions HEENT: NC/AT, PERRL, EOMI, anicteric sclera, conjunctiva without injection, external ear normal to inspection and nontender, nares patent, dry mucus membranes, dentition intact, no oropharyngeal lesions, neck supple, trachea midline, no LAD, no thyromegaly, no JVD Heart: +S1/S2, regular, no m/r/g Lungs: equal air entry bilaterally, no rales/rhonchi, +end expiratory wheezing present in MARY JO Abd: +BS, soft, NT, mildly distended, no masses/organomegaly/ascites Ext: warm, 2+ pulses in UE/LE bilaterally, no clubbing/cyanosis or edema Neuro: nonfocal, patient AA&O x 4, speech intact, no facial droop, moving all extremities on command with equal strength 5/5 Results & Data Results & Data ([facility]) Vital Signs (Past 12 Hours) Vital Signs Temp Pulse Pulse Resp BP BP Pulse Ox 06/15/20 19:37 64 18 121/68 100 06/15/20 18:30 53 L 17 124/59 L 97 06/15/20 18:00 58 L 17 127/64 100 06/15/20 17:30 62 58 L 18 104/53 L 104/53 L 100 06/15/20 16:02 36.6 C 84 18 107/64 98 Laboratory Results Lab Results 06/15/20 06/15/20 06/15/20 Range/Units 16:55 16:55 16:55 WBC 7.84 (4.8-10.8) K/uL RBC 3.94 L (4.2-5.4) M/uL Hgb 11.4 L (12.0-16.0) g/dL Hct 35.0 L (37-47) % MCV 88.8 (80-100) fL MCH 28.9 (25-34) pg MCHC 32.6 (32-36) g/dL RDW Std Deviation 48.0 H (36.4-46.3) fL RDW Coeff of Valentina 14.6 H (11.5-14.5) % Plt Count 189 (130-400) K/uL MPV 9.7 (7.4-10.4) fL Immature Gran % (Auto) 0.1 % Neut % (Auto) 82.9 % Lymph % (Auto) 7.9 % [place] % (Auto) 8.7 % Eos % (Auto) 0.3 % Baso % (Auto) 0.1 % Neut # (Auto) 6.50 (1.4-6.5) K/uL Lymph # (Auto) 0.62 L (1.2-3.4) K/uL [place] # (Auto) 0.68 H (0.11-0.59) K/uL Eos # (Auto) 0.02 (0-0.5) K/uL Baso # (Auto) 0.01 (0-0.2) K/uL Immature Gran # (Auto) 0.01 (0.00-0.02) K/uL ESR 61 H (0-21) mm/hr Sodium 135 L (136-145) mmol/L Potassium 3.7 (3.5-5.1) mmol/L Chloride 103 (98-107) mmol/L Carbon Dioxide 20 L (21-32) mmol/L Anion Gap 12.0 H (3-11) BUN 16 (7-18) mg/dl Creatinine 1.50 H (0.6-1.2) mg/dl Est Cr Clr Drug Dosing 39.7 ml/min Est GFR ( Amer) 43.1 Est GFR (Non-Af Amer) 37.2 BUN/Creatinine Ratio 10.8 (10-20) Glucose 232 H (70-99) mg/dl POC Glucose (70-99) mg/dl Calcium 9.3 (8.5-10.1) mg/dl Total Bilirubin 0.5 (0.2-1) mg/dl AST 31 (15-37) U/L ALT 29 (12-78) U/L Alkaline Phosphatase 107 (45-117) U/L C-Reactive Protein 22.50 H (0-0.29) mg/dl Total Protein 7.8 (6.4-8.2) gm/dl Albumin 3.2 L (3.4-5.0) gm/dl Globulin 4.6 H (2.5-4.0) gm/dl Albumin/Globulin Ratio 0.7 L (0.9-2) Procalcitonin (0-0.5) ng/ml Urine Color Urine Appearance (Clear) Urine pH (4.5-7.5) Ur Specific [place] (1.000-1.030) Urine Protein (Negative) Urine Glucose (UA) (Negative) Urine Ketones (Negative) Urine Blood (Negative) Urine Nitrite (Negative) Urine Bilirubin (Negative) Urine Urobilinogen (Negative) Ur Leukocyte Esterase (Negative) Urine WBC (Auto) (0-5) /hpf Urine RBC (Auto) (0-4) /hpf U Hyaline Cast (Auto) (0-5) /lpf U Epithel Cells (Auto) (0-5) /lpf Urine Bacteria (Auto) (Negative) Granular Casts (0) /lpf Stl C. diff Tox B Gene (Neg) 06/15/20 06/15/20 06/15/20 Range/Units 16:55 17:20 19:33 WBC (4.8-10.8) K/uL RBC (4.2-5.4) M/uL Hgb (12.0-16.0) g/dL Hct (37-47) % MCV (80-100) fL MCH (25-34) pg MCHC (32-36) g/dL RDW Std Deviation (36.4-46.3) fL RDW Coeff of Valentina (11.5-14.5) % Plt Count (130-400) K/uL MPV (7.4-10.4) fL Immature Gran % (Auto) % Neut % (Auto) % Lymph % (Auto) % [place] % (Auto) % Eos % (Auto) % Baso % (Auto) % Neut # (Auto) (1.4-6.5) K/uL Lymph # (Auto) (1.2-3.4) K/uL [place] # (Auto) (0.11-0.59) K/uL Eos # (Auto) (0-0.5) K/uL Baso # (Auto) (0-0.2) K/uL Immature Gran # (Auto) (0.00-0.02) K/uL ESR (0-21) mm/hr Sodium (136-145) mmol/L Potassium (3.5-5.1) mmol/L Chloride (98-107) mmol/L Carbon Dioxide (21-32) mmol/L Anion Gap (3-11) BUN (7-18) mg/dl Creatinine (0.6-1.2) mg/dl Est Cr Clr Drug Dosing ml/min Est GFR ( Amer) Est GFR (Non-Af Amer) BUN/Creatinine Ratio (10-20) Glucose (70-99) mg/dl POC Glucose (70-99) mg/dl Calcium (8.5-10.1) mg/dl Total Bilirubin (0.2-1) mg/dl AST (15-37) U/L ALT (12-78) U/L Alkaline Phosphatase (45-117) U/L C-Reactive Protein (0-0.29) mg/dl Total Protein (6.4-8.2) gm/dl Albumin (3.4-5.0) gm/dl Globulin (2.5-4.0) gm/dl Albumin/Globulin Ratio (0.9-2) Procalcitonin 0.34 (0-0.5) ng/ml Urine Color Yellow Urine Appearance Clear (Clear) Urine pH 5.0 (4.5-7.5) Ur Specific [place] 1.016 (1.000-1.030) Urine Protein 1+ H (Negative) Urine Glucose (UA) Negative (Negative) Urine Ketones Negative (Negative) Urine Blood Negative (Negative) Urine Nitrite Negative (Negative) Urine Bilirubin Negative (Negative) Urine Urobilinogen Negative (Negative) Ur Leukocyte Esterase Negative (Negative) Urine WBC (Auto) 1-5 (0-5) /hpf Urine RBC (Auto) 0-4 (0-4) /hpf U Hyaline Cast (Auto) 1-5 (0-5) /lpf U Epithel Cells (Auto) >30 H (0-5) /lpf Urine Bacteria (Auto) Negative (Negative) Granular Casts 1-5 H (0) /lpf Stl C. diff Tox B Gene Negative Cdiff Gene (Neg) 06/15/20 Range/Units 21:40 WBC (4.8-10.8) K/uL RBC (4.2-5.4) M/uL Hgb (12.0-16.0) g/dL Hct (37-47) % MCV (80-100) fL MCH (25-34) pg MCHC (32-36) g/dL RDW Std Deviation (36.4-46.3) fL RDW Coeff of Valentina (11.5-14.5) % Plt Count (130-400) K/uL MPV (7.4-10.4) fL Immature Gran % (Auto) % Neut % (Auto) % Lymph % (Auto) % [place] % (Auto) % Eos % (Auto) % Baso % (Auto) % Neut # (Auto) (1.4-6.5) K/uL Lymph # (Auto) (1.2-3.4) K/uL [place] # (Auto) (0.11-0.59) K/uL Eos # (Auto) (0-0.5) K/uL Baso # (Auto) (0-0.2) K/uL Immature Gran # (Auto) (0.00-0.02) K/uL ESR (0-21) mm/hr Sodium (136-145) mmol/L Potassium (3.5-5.1) mmol/L Chloride (98-107) mmol/L Carbon Dioxide (21-32) mmol/L Anion Gap (3-11) BUN (7-18) mg/dl Creatinine (0.6-1.2) mg/dl Est Cr Clr Drug Dosing ml/min Est GFR ( Amer) Est GFR (Non-Af Amer) BUN/Creatinine Ratio (10-20) Glucose (70-99) mg/dl POC Glucose 145 H (70-99) mg/dl Calcium (8.5-10.1) mg/dl Total Bilirubin (0.2-1) mg/dl AST (15-37) U/L ALT (12-78) U/L Alkaline Phosphatase (45-117) U/L C-Reactive Protein (0-0.29) mg/dl Total Protein (6.4-8.2) gm/dl Albumin (3.4-5.0) gm/dl Globulin (2.5-4.0) gm/dl Albumin/Globulin Ratio (0.9-2) Procalcitonin (0-0.5) ng/ml Urine Color Urine Appearance (Clear) Urine pH (4.5-7.5) Ur Specific [place] (1.000-1.030) Urine Protein (Negative) Urine Glucose (UA) (Negative) Urine Ketones (Negative) Urine Blood (Negative) Urine Nitrite (Negative) Urine Bilirubin (Negative) Urine Urobilinogen (Negative) Ur Leukocyte Esterase (Negative) Urine WBC (Auto) (0-5) /hpf Urine RBC (Auto) (0-4) /hpf U Hyaline Cast (Auto) (0-5) /lpf U Epithel Cells (Auto) (0-5) /lpf Urine Bacteria (Auto) (Negative) Granular Casts (0) /lpf Stl C. diff Tox B Gene (Neg) Diagnostic Findings KUB CLINICAL HISTORY: Fever. FINDINGS: An AP supine abdominal radiograph is compared to study dated 06/24/2017 and correlated with abdominal CT dated 06/13/2020. There is a nonobstructed abdominal bowel gas pattern. No evidence of intraperitoneal free air is seen on this supine image. Numerous surgical clips are scattered throughout the abdomen. Large phleboliths are noted in the pelvis. Calcific breast implants are partial ly imaged. The skeletal structures are osteopenic and appear intact. There is mild lumbosacral spondylosis. IMPRESSION: Nonobstructed abdominal bowel gas pattern. Electronically signed by: Bradley Rivas M.D. 06/15/2020 5:17 PM Dictated: 06/15/20 1715 Transcribed: 06/15/20 171 --------- ---- SINGLE VIEW CHEST CLINICAL HISTORY: Fever. FINDINGS: An AP, portable, upright chest radiograph is compared to study dated 06/13/2020. Calcified breast implants project over the lung bases. The cardiomediastinal silhouette is unremarkable. There is bibasilar scarring/atelectasis. The lungs and pleural spaces are otherwise clear. No pneumothorax is seen. The skeletal structures are osteopenic. The bony thorax is grossly intact. IMPRESSION: No active disease in the chest. ACT 112: Negative or not required by law. Electronically signed by: Bradley Rivas M.D. 06/15/2020 5:17 PM Dictated: 06/15/201716 Transcribed: 06/15/201716 Code Status & VTE Plan Code Status FULL PG Care Time/CCT Total # of Minutes Spent Total Time Spent with Patient: Total time spent is greater than 50% in coordination of care (as documented) at patient's floor/unit and/or counseling patient: Coding Level of Care Code 45938 OBS Care - Level 3 Diagnoses Fever R50.9 Fever type: unspecified Diarrhea R19.7 Diarrhea type: unspecified type H/O kidney transplant Z94.0 Migraine G43.909 Migraine type: unspecified Status migrainosus presence: without status migrainosus Intractability: not intractable Non-celiac gluten sensitivity K90.41 Gastritis K29.70 Gastritis type: unspecified gastritis Chronicity: unspecified Gastritis bleeding: without bleeding Depression F32.9 Depression Type: unspecified Diabetes mellitus E11.22; Z79.4 Diabetes mellitus type: type 2 Diabetes mellitus fdc insulin use: with fdc use Diabetes mellitus complication status: with kidney complications Diabetes mellitus complication detail: with chronic kidney disease Chronic kidney disease stage: unspecified stage Hyperlipidemia E78.5 Hyperlipidemia type: unspecified Hypertension I10 Hypertension type: essential hypertension Restless legs syndrome G25.81 Gout M10.9 Gout site: unspecified site Gout etiology: unspecified cause Chronicity: unspecified CKD (chronic kidney disease) stage 4, GFR 15-29 ml/min N18.4 (1) Fever Fever type: unspecified Qualified Code(s): R50.9 - Fever, unspecified (2) Diabetes mellitus Diabetes mellitus type: type 2 Diabetes mellitus 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 Diabetes mellitus complication status: with kidney complications Diabetes mellitus complication detail: with chronic kidney disease Chronic kidney disease stage: unspecified stage Qualified Code(s): E11.22 - Type 2 diabetes mellitus with diabetic chronic kidney disease; Z79.4 - exterminator (current) use of insulin (3) Gout Gout site: unspecified site Gout etiology: unspecified cause Chronicity: unspecified Qualified Code(s): M10.9 - Gout, unspecified (4) Depression Depression Type: unspecified Qualified Code(s): F32.9 - Major depressive disorder, single episode, unspecified (5) Diarrhea Diarrhea type: unspecified type Qualified Code(s): R19.7 - Diarrhea, unspecified (6) Gastritis Gastritis type: unspecified gastritis Chronicity: unspecified Gastritis bleeding: without bleeding Qualified Code(s): K29.70 - Gastritis, unspecified, without bleeding (7) Migraine Migraine type: unspecified Status migrainosus presence: without status migrainosus Intractability: not intractable Qualified Code(s): G43.909 - Migraine, unspecified, not intractable, without status migrainosus (8) Hyperlipidemia Hyperlipidemia type: unspecified Qualified Code(s): E78.5 - Hyperlipidemia, unspecified (9) Hypertension Hypertension type: essential hypertension Qualified Code(s): I10 - Essential (primary) hypertension
[2020-06-15] MEDS ORDERED: DEXTROSE 50% 50 ML SYRINGE IV PRN (21:15)
[2020-06-15] MEDS ORDERED: GLUCOSE 10 TABS/TUBE PO PRN (21:15)
[2020-06-15] MEDS ORDERED: GLUCAGON FOR INJ 1 MG VIAL SQ PRN (21:15)
[2020-06-15] MEDS ORDERED: GLUCOSE 40% GEL 15 GM TUBE PO PRN (21:15)
[2020-06-15] MEDS ORDERED: CARBOHYDRATES FOR HYPOGLYCEMIA PO PRN (21:15)
[2020-06-15] MEDS ORDERED: KETOROLAC 30 MG/ML VIAL IV ONE (21:53)
[2020-06-15 21:57] LABS: Phosphorus 2.3 mg/dl (2.5-4.9)
[2020-06-15] MEDS: TAMSULOSIN HCL 0.4 MG CAP PO SCH (21:58)
[2020-06-15] MEDS: SODIUM CHLORIDE 0.9% 1000ML 1,000 ML IV SCH (21:58)
[2020-06-15] MEDS: carvediloL 6.25 MG TAB PO SCH (21:58)
[2020-06-15] MEDS: MYCOPHENOLATE SODIUM 180 MG TAB PO SCH (21:59)
[2020-06-15] MEDS: BUTALBITAL/ACETAMIN/CAFFEINE TAB PO PRN (21:59)
[2020-06-15] MEDS: ROPINIROLE HCL 0.25 MG TABLET PO SCH (21:59)
[2020-06-15] MEDS: INSULIN DETEMIR FLEXPEN/FLEX TOUCH 100 UNITS/ML 3ML SQ SCH (22:03)
[2020-06-15] MEDS: INSULIN ASPART 100 UNITS/ML 3 ML PEN SC SCH (22:03)
[2020-06-15] MEDS ORDERED: OXYCODONE HCL IR 5 MG TAB (IMMEDIATE RELEASE) PO STA (22:22)
[2020-06-15] MEDS: ONDANSETRON INJ 2 MG/ML 2 ML VIAL IV PRN (22:41)
[2020-06-16 07:16] LABS: Basophils # (auto) 0.02 K/uL (0-0.2); Basophils % (auto) 0.4 %; Eosinophils # (auto) 0.07 K/uL (0-0.5); Eosinophils % (auto) 1.3 %; Hematocrit (blood only) 33.2 % (37-47); Hemoglobin 10.6 g/dL (12.0-16.0); Immature Granulocytes # (auto) 0.01 K/uL (0.00-0.02); Immature Granulocytes % (auto) 0.2 %; Lymphocytes # (auto) 0.56 K/uL (1.2-3.4); Mean Corpuscular Hemoglobin 28.6 pg (25-34); Mean Corpuscular Hgb Conc 31.9 g/dL (32-36); Mean Corpuscular Volume 89.5 fL (80-100); Mean Platelet Volume 9.1 fL (7.4-10.4); Monocytes % (auto) 10.7 %; Neutrophils # (auto) 4.34 K/uL (1.4-6.5); Neutrophils % (auto) 77.4 %; Platelet Count 176 K/uL (130-400); RDW Coefficient of Variation 14.8 % (11.5-14.5); RDW Standard Deviation 48.7 fL (36.4-46.3); Red Blood Count 3.71 M/uL (4.2-5.4)
[2020-06-16 07:41] LABS: BUN Creatinine Ratio 12.1 (10-20); Calcium 8.9 mg/dl (8.5-10.1); Creatinine Clr Calc Pharmacy 50.9 ml/min; Est GFR (African American) 58.2; Est GFR (Non-African American) 50.3; Potassium 3.4 mmol/L (3.5-5.1)
[2020-06-16] MEDS ORDERED: ACETAMINOPHEN 65 ML IV ONE (08:35)
[2020-06-16] MEDS ORDERED: ACETAMINOPHEN 325 MG TAB PO ONE (08:45)
--- NOTE | 2020-06-16 08:54 | XRay Report ---
TWO VIEW CHEST CLINICAL HISTORY: Wheezing. FINDINGS: PA and lateral chest radiographs are compared to study dated 06/15/2020. Calcified breast i mplants project over the lung bases. The cardiomediastinal silhouette is unremarkable. There is bibas ilar scarring/atelectasis. Trace pleural effusions are noted on the lateral projection. No airspace c onsolidation is seen typical for pneumonia. No pneumothorax is seen. The skeletal structures are oste openic. The bony thorax is grossly intact. IMPRESSION: Trace pleural effusions. ACT 112: Negative or not required by law. Electronically signed by: Bradley Rvias M.D. 06/16/2020 8:52 AM
[2020-06-16] MEDS ORDERED: POTASSIUM CHLORIDE 10 MEQ TABCR PO ONE (09:00)
[2020-06-16] MEDS: ONDANSETRON INJ 2 MG/ML 2 ML VIAL IV PRN ×2 (09:02→16:19)
[2020-06-16] MEDS: SODIUM CHLORIDE 0.9% 1000ML 1,000 ML IV SCH ×2 (09:02→18:42)
[2020-06-16] MEDS: TAMSULOSIN HCL 0.4 MG CAP PO SCH ×2 (09:06→20:13)
[2020-06-16] MEDS: MYCOPHENOLATE SODIUM 180 MG TAB PO SCH ×2 (09:06→20:12)
[2020-06-16] MEDS: VENLAFAXINE HCL XR 75 MG CAPXR PO SCH (09:06)
[2020-06-16] MEDS: predniSONE 5 MG TAB PO SCH (09:07)
[2020-06-16] MEDS: carvediloL 6.25 MG TAB PO SCH ×2 (09:07→20:13)
[2020-06-16] MEDS: allopurinoL 300 MG TAB PO SCH (09:07)
[2020-06-16] MEDS: PANTOprazole 40 MG TAB PO SCH (09:07)
[2020-06-16] MEDS: SIROLIMUS 0.5 MG TABLET PO SCH (09:07)
[2020-06-16 09:11] LABS: Phosphorus 1.7 mg/dl (2.5-4.9)
[2020-06-16] MEDS: INSULIN ASPART 100 UNITS/ML 3 ML PEN SC SCH ×5 (09:38→20:13)
--- NOTE | 2020-06-16 10:41 | Nephrology Consultation ---
Date of Consultation June 16, 2020 Assessment & Plan (1) H/O kidney transplant: Mrs. Bowling has had a persistent illness over the course of the past 10 days or so. It is been characterized by intermittent fevers and now watery diarrhea. The etiology is unclear. Her stool has been cultured. She has a history of a kidney transplant and is immunosuppressed. In that regard, during this hospitalization as long as she is apparently febrile I would reduce her mycophenolate sodium to 180 mg twice daily. Her sirolimus and prednisone doses can remain stable. At this time, I see no reason to put her on stress dose steroids. Multiple studies have been ordered again. They were all previously normal. She does have a slight elevation of her sedimentation rate. Her white blood cell count appears to be normal although slightly shifted to the left as 1 would expect with her immunosuppression. Blood cultures over the course of the past week have been negative x4 and urine culture is negative x2. Now she has symptoms of diarrhea that developed recently. It is hard to know whether or not her exposure to spring water during a recent trip [place] has anything to do with this illness. Certainly, Giardia might need to be ruled out although I doubt that that would give her a febrile illness. Nonetheless, stools should be checked for Giardia and possibly Cryptosporidium. Additionally, I think that her stool should be checked for CMV as well. CMV colitis is not an unusual complication and renal transplant patients. It is more typical to develop CMV infections about 40 days after transplant. She is well beyond that, but nonetheless I would still evaluate her since no other etiology for her current symptomatic problems has been uncovered. I do think that GI should become involved and do upper and lower endoscopies with cultures and biopsies if appropriate. Additionally, an infectious disease consult could be very helpful. I have no other immediate recommendations other than to maintain her hydration as is being done. I will continue to follow her with you during this hospitalization. (2) Fever: (3) Diarrhea: (4) Diabetes mellitus: History of Present Illness Reason for Consultation: Renal transplant patient with fever and diarrhea Attending Physician: Shivam Mccann MD History of Present Illness Mrs. Bowling is a 60-year-old woman well-known to me. She has a history of autosomal dominant polycystic kidney disease. She had a steady decline in her renal function and in 1998 developed end-stage renal disease. She was begun on maintenance dialysis and underwent a bilateral nephrectomy because of recurrent urinary tract infections. The nephrectomy was also done in preparation for a probable kidney transplant which she subsequently received from a living related donor. Details of her clinical course are outlined on my consultation note robi johnson her previous hospitalization dated June 09. Although she had a brief period of time on hemodialysis associated with an intercurrent problem, dialysis was discontinued as she recovered some degree of renal function. In December 2018 she received a donor transplant at [facility] in [place]. She is done reasonably well since that time. Her serum creatinine has fallen to as low as 1.2 but is generally in the range of 1.3 to 1.45 mg/Karen. Her course has been complicated by an occasional urinary tract infection the last of which occurred in late April. At that time. She had an enterococcus cultured from her urine. She was treated with amoxicillin 875 mg twice daily which she took for about 10 days. She was recently hospitalized from 06/08 through 06/11 because of a fever. She had no other particular symptoms at the time. During her hospitalization, her white blood cell count was normal. Blood cultures were negative as was a urine culture. Her renal function remained stable. She was discharged on June 10. Because she had been walking in a wooded area, there was some concern about the potential of her having Lyme disease. However, Lyme antibodies were measured and were negative although they returned after her discharge. She had been given a prescription for doxycycline but she did not use it. She developed recurrent fevers early on Monday morning June 13. She was seen in the emergency room at this hospital. Her exam was unremarkable. She was afebrile at that time. Her white count remained normal. A CT scan of her abdomen was unremarkable. She had been complaining of abdominal pain but no other change in her bowel habits at that time. Repeat blood and urine cultures have proven to be negative. Nonetheless, because she was otherwise feeling well she was discharged to home with no additional therapy. Shortly after her return home she began to have low volume stools. By the following day, June 14, she was having frequent low volume watery stools. These continued and she redeveloped fever in of June 15. She called our office and I referred her back to the emergency room for readmission and ree valuation. Since her hospitalization, she was afebrile until this morning when her temperature was 38 degrees. She denied having any shaking chills and denied having any sweats. She continues to have low volume watery stools. She denies having any abdominal pain at the current time but specifically told me she was having some upper abdominal pain at the time she called the office yesterday. T he pain was nonradiating. She has had no nausea or vomiting but her appetite has been poor. She has a history of recurrent C. difficile colitis. It became relatively resistant to vancomycin and Dificid. She has undergone fecal transplants. She currently takes Dificid when she takes any oral or IV antibiotic for other reasons. She will take the Dificid in a dose of 500 mg daily. To date, she has had no laboratory confirmation of recurrent C. difficile colitis. She has a remote history of an apparent episode of diverticulitis with perforation. She underwent a bowel resection and colostomy with a subsequent colostomy takedown. That was many years ago. Of note is the fact that about 1 month ago the patient spent several days at her sister's cabin in [place]. The water there is through a spring. The patient said that she use the water to wash dishes but took her own bottled water to drink. She has no other specific complaints at the current time. She did have a migraine headache yesterday which is not atypical for her. Her current immunosuppressive medications include sirolimus 2 mg daily, mycophenolate sodium 360 mg twice daily and prednisone 5 mg daily. Other medical illnesses include insulin-dependent diabetes mellitus. She does minimize her carbohydrate intake although she admits that she is not as compliant as she should be. She uses Levemir 7 units at bedtime and Prandin 5 mg before each meal. However, she takes the Prandin only if blood sugars are 120 or greater. Her last hemoglobin A1c was 6.1%. She also has a history of hypertension. She does try to minimize her dietary sodium intake. She takes carvedilol 18.75 mg twice daily. She is not on a diuretic. She has no target organ symptoms of hypertension nor she had any symptoms of cardiovascular, cerebrovascular or peripheral vascular disease. The remainder of her review of systems is noncontributory to her current situation. The remainder of her past medical history, family history social history etc. appears on prior admission and consultation notes. It will not be repeated. All relevant information is covered on my previous consult. Allergies Allergy/AdvReac Type Severity Reaction Status Date / Time Iodinated Contrast Media Allergy Severe Hx Kidney Verified 06/15/20 19:57 Transplant Hqwqatc-[id number]-Rxu Reductase Allergy Severe "PANCREATIT Verified 06/15/20 19:57 Inhibitor IS" sumatriptan Allergy Severe seizure Verified 06/15/20 19:57 hydrochlorothiazide Allergy Mild Unknown Verified 06/15/20 19:57 Sulfa (Sulfonamide Allergy Mild . Verified 06/15/20 19:57 Antibiotics) triamterene Allergy Mild Unknown Verified 06/15/20 19:57 atorvastatin Allergy Unknown ? Verified 06/15/20 19:57 doxycycline Allergy Unknown UNKNOWN Verified 06/15/20 19:57 levofloxacin Allergy Unknown joint pain Verified 06/15/20 19:57 adhesive AdvReac Unknown SKIN TEAR Verified 06/15/20 19:57 Cipro AdvReac Unknown FATIGUE Verified 01/20/18 21:00 ciprofloxacin AdvReac Unknown FATIGUE Verified 06/13/20 12:01 morphine AdvReac Unknown INEFFECTIVE Verified 06/13/20 12:01 Home Medications Home Medications Medication Instructions Recorded Confirmed Type Levemir FlexTouch U-100 Insuln 9 units SUBCUT HS 09/01/18 06/15/20 History allopurinol 300 mg PO TUTHSA 09/01/18 06/15/20 History tamsulosin 0.4 mg PO BID 03/26/19 06/15/20 History prednisone 5 mg tablet 5 mg PO QAM #90 tab 05/02/19 06/15/20 Rx azelastine 2 spray INTRANASAL Q12H PRN 07/10/19 06/15/20 History fluticasone propionate [Flonase 2 spray INTRANASAL DAILY PRN 07/10/19 06/15/20 History Allergy Relief] mycophenolate sodium 180 mg 360 mg PO BID #360 tab 11/04/19 06/15/20 Rx tablet,delayed release ropinirole 0.25 mg tablet 0.25 mg PO HS #90 tab 01/27/20 06/15/20 Rx carvedilol 6.25 mg tablet 18.75 mg PO BID #540 tab 03/18/20 06/15/20 Rx PNV cmb#95-ferrous fumarate-FA 1 tab PO QAM 04/13/20 06/15/20 History [] Premarin 0.625 mg PO WE 04/13/20 06/15/20 History oxkgikkyqr-ykfcljfasraod-uobx 1 cap PO Q6H PRN 04/13/20 06/15/20 History [Fioricet] repaglinide 0.5 mg PO TID PRN 04/13/20 06/15/20 History sirolimus 2 mg PO QAM 04/13/20 06/15/20 History pantoprazole 40 mg PO QAM 05/23/20 06/15/20 History venlafaxine 75 mg PO QAM 06/09/20 06/15/20 History doxycycline hyclate 100 mg PO BID #28 cap 06/11/20 06/15/20 Rx acetaminophen [Tylenol Extra 1,000 mg PO DIRECTED PRN 06/13/20 06/15/20 History Strength] Patient History Medical History Abdominal pain Acute gout Acute pyelonephritis Acute renal failure Allergic rhinitis due to allergen CKD (chronic kidney disease) stage 4, GFR 15-29 ml/min Clostridium difficile diarrhea Dehydration Diarrhea of presumed infectious origin Fever HTN (hypertension) Immunosuppressed status Intractable vomiting Migraine Pancreatitis Recurrent Clostridium difficile diarrhea SBO (small bowel obstruction) Sepsis Sinus congestion SIRS (systemic inflammatory response syndrome) Unspecified asthma UTI (lower urinary tract infection) (10/21/14) Surgical History History of hernia surgery Hx of appendectomy Hx of cholecystectomy Kidney replaced by transplant x2. most recent 1 year ago Family History Other Family history non-contributory Social History Smoking Status: Former smoker Smoking End Date: 1983; Second Hand Exposure: No; Hx Alcohol Use: Yes Alcohol type: beer Hx Substance Use: No Preferred Language: Syrian Communication Ability: Effective Stemmer Machine Required: No Beliefs That Will Affect Care: None marital status: Current Living Situation: Spouse Other Information That Helps Us Care for You: No Feels Safe at Home: Yes Safety Concerns: Feels Safe At This Time Assistive Devices: Glasses Physical Exam Physical Exam: On physical examination, Mrs. Bowling appears relatively healthy and well and comfortable at the time seen by me. Her blood pressure was 165/81 supine. Her pulse was 72 and regular. Respiratory rate was 18 with a pulse ox of 100% on room air. Her temperature was 37.8 C. She is awake, alert and oriented. Her conversation is appropriate. Her skin shows normal skin turgor. There is no rash or infiltrative skin disease. She has scattered ecchymoses particularly on her arms. She has multiple scars on her abdomen from surgical procedures including a right lower quadrant scar from her current renal transplant and a left lower quadrant scar from a prior kidney transplant. There is no palpable lymphadenopathy. Her head is normal. She has no tenderness over the sinuses. Eyes are grossly normal. The ocular fundi were not examined. Ears, nose, mouth and throat are unremarkable. Oral mucous membranes are moist. Her neck is supple. She has no jugular venous distention, carotid bruit or thyromegaly. Her chest is clear to auscultation. There are no wheezes, rales or rhonchi. Cardiac exam shows a regular rhythm. She does have intermittent periods of apparent bigeminy. S1 and S2 are normal. There is a soft systolic murmur at the base radiating toward the neck. There are no gallop sounds. Her abdomen shows multiple scars from prior surgeries. It is nontender. Bowel sounds are quite active. Her renal transplants are palpable in the lower quadrants. They are nontender. She has a soft bruit over the right lower quadrant transplant. I cannot definitely feel her liver or spleen. Extremities show no cyanosis, clubbing or peripheral edema. She has some chronic skin changes on her distal lower extremity consistent with venous stasis dermatitis. Peripheral pulses are intact. Her neurologic exam shows no lateralizing changes. Results & Data ([facility]) Vital Signs (Past 12 Hours) Vital Signs Temp Pulse Pulse Resp BP Pulse Ox 06/16/20 08:26 38 C H 06/16/20 07:15 37.0 C 72 18 165/81 H 100 06/16/20 03:59 36.8 C 58 L 16 137/75 100 06/16/20 02:59 60 06/15/20 23:30 36.8 C 53 L 18 129/71 100 PG Care Time/CCT Total # of Minutes Spent Total Time Spent with Patient: Total time spent is greater than 50% in coordination of care (as documented) at patient's floor/unit and/or counseling patient:60 Coding Level of Care Code 52868 Inpt Consult Level 4 Diagnoses H/O kidney transplant Z94.0 Fever R50.9 Fever type: unspecified Diarrhea R19.7 Diarrhea type: unspecified type Diabetes mellitus E11.22; Z79.4 Diabetes mellitus type: type 2 Diabetes mellitus jail insulin use: with sash sticker use Diabetes mellitus complication status: with kidney complications Diabetes mellitus complication detail: with chronic kidney disease Chronic kidney disease stage: unspecified stage (1) Fever Fever type: unspecified Qualified Code(s): R50.9 - Fever, unspecified (2) Diarrhea Diarrhea type: unspecified type Qualified Code(s): R19.7 - Diarrhea, unspecified (3) Diabetes mellitus Diabetes mellitus type: type 2 Diabetes mellitus jail insulin use: with jail use Diabetes mellitus complication status: with kidney complications Diabetes mellitus complication detail: with chronic kidney disease Chronic kidney disease stage: unspecified stage Qualified Code(s): E11.22 - Type 2 diabetes mellitus with diabetic chronic kidney disease; 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
[2020-06-16] MEDS ORDERED: SODIUM PHOSPHATE 3 MMOL/1 ML INFUSION IV STA (10:55)
--- NOTE | 2020-06-16 10:57 | Hospitalist Progress Note ---
Date of Service June 16, 2020 Assessment & Plan (1) Fever: ??CMV GI involvement? * Patient afebrile on admission but did have a temp 38C today, currently down to 36.8C * Blood cultures pending from admission, has not been 24 hours since initial draw. If spikes another temp would repeat cultures * Remains hemodynamically stable * Norovirus PCR, Anaplasmosis DNA sent * Stool cultures including Giardia sent, cryptosporidium, CMV stool as well as blood source given immunocompromised patient h/o renal transplant on sirolimus and mycophenolate * Nephrology consulted -- appreciate assistance * GI consulted - appreciate assistance. Added metamucil * ID consulted -- appreciate assistance. If patient shows any s/sx deterioration would start broad spectrum such as Zosyn. Consider checking EBV DNA serum PRC * Will hold off on abx at this time given hx cdiff * Inflammatory markers elevated -- ESR 61, CRP 22.5 * Supportive treatment with IVF NSS @ 100cc/hr, antiemetics, pain control * UA negative for infection, CXR and 2 view with trace effusions, no pneumonia noted * Awaiting results of above, but will plan for colonoscopy with random biopsies with Dr. Kirk on . Will need to be NPO overnight 06/17-06/18 if so (2) Diarrhea: * Profuse, watery diarrhea in immunocompromised host. History of c. 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 * Of note, patient also s/p RIGHT hemicolectomy with ileocolic anastomosis 2010 * Cdiff negative * ?CMV colitis or parasitic in patient on chronic immunosuppressant therapy * CT abdomen with oral contrast pending -- patient had been too nauseous for oral contrast this morning and attempting this afternoon * Stool studies as above * Gluten free diet -- recent dx in the past year non-celiac, gluten sensitive * GI on consult as above -- appreciate assistance. Plans for colonoscopy if above unrevealing for further evaluation of a possible CMV colitis (3) H/O kidney transplant: * Mildly elevated BUN and Cr most likely secondary to volume depletion on admission, improved. * Transplants are non-tender. * Avoid nephrotoxic agents * Continue Sirolimus and Mycophenolate * Nephrology on consult as above * Repeat labs in AM (4) CKD (chronic kidney disease) stage 4, GFR 15-29 ml/min: * Mildly elevated BUN and Cr from baseline, clinically dry in setting of diarrheal losses. Follows with Dr. Roy * IVF NSS at 100mL/hr x 3 L * Avoid nephrotoxic agents. Renal dosing where needed * Cr improved to 1.17 * BMP in AM (5) Gastritis: * Recently diagnosed. Patient denies abdominal pain, melena or hematochezia at present * Continue Protonix 40 mg po daily (6) Diabetes mellitus: * Patient with DM, elevated blood glucose at present 232. Last [id number]=1.8 on 05/08/20. No repeat at this time * Hold oral agents while inpatient * Continue Levemir 9u qHS * ISS with accuchecks * BSGs acceptable * Continue to monitor (7) Hypertension: * Blood pressure well controlled, currently 118/64 * Continue Carvedilol 18.75mg BID (8) Hyperlipidemia: * Chronic. Patient statin intolerant (9) Restless legs syndrome: * Chronic * Continue Ropinirole (10) Gout: * Chronic. Well controlled. Patient denies joint pain or inflammation at present * Continue Allopurinol (11) Hypophosphatemia: * Phos 1.7 (down from 2.3 on admission although does not appear to have been replaced) * Ordered 15mmol IV * Repeat level in AM (12) Hypokalemia: * K 3.4 on BMP. Mag 2.0 * Ordered 10meq given CKD IV * BMP in AM (13) Depression: * Chronic * Continue Venlafaxine 75mg po qAM (14) Migraine: * No migraine reported today. Had received oxycodone 5mg x 1 on admission * Fioricet ordered prn * Tylenol prn * Zofran prn nausea * Patient currently with complaint of migraine. She does not wish to take her Fioricet at this time (15) Non-celiac gluten sensitivity: * Noted. Diagnosed earlier this year. Also with IgA low at 39 * Gluten free diet as tolerated (16) DVT prophylaxis: * SCDs * Ambulation encouraged Admission and Anticipated Discharge Date Admission Date: June 15, 2020 Subjective Patient evaluated this morning. Some nausea but improved with medication. Had been nausea with pills on empty stomach as she has not had much of an appetite secondary to significant diarrhea, worsening over past 10 days. This morning reported as brown, loose, with green stool overnight. This afternoon return of greenish colored stool. Cdiff negative. No emesis reported, although she notes she felt as if she had some regurgitated material come up but swallowed back down. Discussed given immunocompromised states, consulted her rn clinical coordinator and will have input from GI and ID prior to initiating antibiotics or increasing steroids to stress dose until we know if we are dealing with bacteria infection. Stool studies ordered and pending. This afternoon, patient with improvement of her nausea and willing to attempt oral contrast for her CT. Discussed if no findings on current ordered tests, plans for repeat scope with GI on . She reported previous scope and biopsy but notes not enough biopsies taken she believes. Previous testing and diagnosis of celiac after her sister testing positive last fall. She is feeling overall better and has been up to the bathroom by herself, but notes that prior to admission she was so profoundly fatigued that she had barely gotten out of bed except for the bathroom. Recent trip and will also test for Giardia. Recurrent fevers, states IV tylenol with improved benefit compared to oral but understanding of cost and protocols and willing to try PO at this time. Denies headaches (although does note history of migraines), visual changes, blurred vision, injection, chest pain, shortness of breath, dysuria, back pain at this time. Review of Systems Review of Systems: All systems reviewed & are unremarkable except as noted in HPI & below Physical Exam Constitutional: well developed and well nourished; no acute distress Eyes: + anicteric sclerae and PERRL ENMT: external ear and nose normal, oropharynx normal Neck: normal visual inspection Respiratory: normal respiratory effort and able to speak in complete sentences; no respiratory distress Auscultation: + wheezes (end expiratory wheezing ) Cardiovascular: RRR, no murmur, no edema Gastrointestinal (Abdomen): normal bowel sounds, soft, nontender, no hepatosplenomegaly Inspection/Auscultation: + abdomen distended midline incisional scar from previous surgeries. multiple other scars noted palpable small hernia/mesh in epigastric region at superior aspect of hernia repair Skin: warm, dry Neurologic: PERRL, EOMI, accommodation nl, no face palsy, no dysarthria Psychiatric: A+Ox3, euthymic affect Lymphatic: no cervical or axillary lymphadenopathy Results & Data Results & Data ([facility]) Vital Signs (Past 12 Hours) Vital Signs Temp Pulse Pulse Resp BP Pulse Ox 06/16/20 10:21 37.8 C H 06/16/20 08:26 38 C H 06/16/20 07:15 37.0 C 72 18 165/81 H 100 06/16/20 03:59 36.8 C 58 L 16 137/75 100 06/16/20 02:59 60 06/15/20 23:30 36.8 C 53 L 18 129/71 100 Laboratory Results 06/16/20 06/16/20 06/16/20 Range/Units 07:18 06:52 06:52 WBC (4.8-10.8) K/uL RBC (4.2-5.4) M/uL Hgb (12.0-16.0) g/dL Hct (37-47) % MCV (80-100) fL MCH (25-34) pg MCHC (32-36) g/dL RDW Std Deviation (36.4-46.3) fL RDW Coeff of Valentina (11.5-14.5) % Plt Count (130-400) K/uL MPV (7.4-10.4) fL Immature Gran % (Auto) % Neut % (Auto) % Lymph % (Auto) % Bowie % (Auto) % Eos % (Auto) % Baso % (Auto) % Neut # (Auto) (1.4-6.5) K/uL Lymph # (Auto) (1.2-3.4) K/uL Bowie # (Auto) (0.11-0.59) K/uL Eos # (Auto) (0-0.5) K/uL Baso # (Auto) (0-0.2) K/uL Immature Gran # (Auto) (0.00-0.02) K/uL ESR (0-21) mm/hr Sodium (136-145) mmol/L Potassium (3.5-5.1) mmol/L Chloride (98-107) mmol/L Carbon Dioxide (21-32) mmol/L Anion Gap (3-11) BUN (7-18) mg/dl Creatinine (0.6-1.2) mg/dl Est Cr Clr Drug Dosing ml/min Est GFR ( Amer) Est GFR (Non-Af Amer) BUN/Creatinine Ratio (10-20) Glucose (70-99) mg/dl POC Glucose 145 H (70-99) mg/dl Calcium (8.5-10.1) mg/dl Phosphorus 1.7 L (2.5-4.9) mg/dl Magnesium 2.0 (1.8-2.4) mg/dl Total Bilirubin (0.2-1) mg/dl AST (15-37) U/L ALT (12-78) U/L Alkaline Phosphatase (45-117) U/L C-Reactive Protein (0-0.29) mg/dl Total Protein (6.4-8.2) gm/dl Albumin (3.4-5.0) gm/dl Globulin (2.5-4.0) gm/dl Albumin/Globulin Ratio (0.9-2) Procalcitonin (0-0.5) ng/ml Urine Color Urine Appearance (Clear) Urine pH (4.5-7.5) Ur Specific [place] (1.000-1.030) Urine Protein (Negative) Urine Glucose (UA) (Negative) Urine Ketones (Negative) Urine Blood (Negative) Urine Nitrite (Negative) Urine Bilirubin (Negative) Urine Urobilinogen (Negative) Ur Leukocyte Esterase (Negative) Urine WBC (Auto) (0-5) /hpf Urine RBC (Auto) (0-4) /hpf U Hyaline Cast (Auto) (0-5) /lpf U Epithel Cells (Auto) (0-5) /lpf Urine Bacteria (Auto) (Negative) Granular Casts (0) /lpf Stl C. diff Tox B Gene (Neg) Stool Comments A. phagocytophilum DNA Pending Norovirus RNA (PCR) 06/16/20 06/16/20 06/16/20 Range/Units 06:52 06:52 06:15 WBC 5.60 (4.8-10.8) K/uL RBC 3.71 L (4.2-5.4) M/uL Hgb 10.6 L (12.0-16.0) g/dL Hct 33.2 L (37-47) % MCV 89.5 (80-100) fL MCH 28.6 (25-34) pg MCHC 31.9 L (32-36) g/dL RDW Std Deviation 48.7 H (36.4-46.3) fL RDW Coeff of Valentina 14.8 H (11.5-14.5) % Plt Count 176 (130-400) K/uL MPV 9.1 (7.4-10.4) fL Immature Gran % (Auto) 0.2 % Neut % (Auto) 77.4 % Lymph % (Auto) 10.0 % Bowie % (Auto) 10.7 % Eos % (Auto) 1.3 % Baso % (Auto) 0.4 % Neut # (Auto) 4.34 (1.4-6.5) K/uL Lymph # (Auto) 0.56 L (1.2-3.4) K/uL Bowie # (Auto) 0.60 H (0.11-0.59) K/uL Eos # (Auto) 0.07 (0-0.5) K/uL Baso # (Auto) 0.02 (0-0.2) K/uL Immature Gran # (Auto) 0.01 (0.00-0.02) K/uL ESR (0-21) mm/hr Sodium 137 (136-145) mmol/L Potassium 3.4 L (3.5-5.1) mmol/L Chloride 107 (98-107) mmol/L Carbon Dioxide 20 L (21-32) mmol/L Anion Gap 9.0 (3-11) BUN 14 (7-18) mg/dl Creatinine 1.17 D (0.6-1.2) mg/dl Est Cr Clr Drug Dosing 50.9 ml/min Est GFR ( Amer) 58.2 Est GFR (Non-Af Amer) 50.3 BUN/Creatinine Ratio 12.1 (10-20) Glucose 140 H (70-99) mg/dl POC Glucose (70-99) mg/dl Calcium 8.9 (8.5-10.1) mg/dl Phosphorus (2.5-4.9) mg/dl Magnesium (1.8-2.4) mg/dl Total Bilirubin (0.2-1) mg/dl AST (15-37) U/L ALT (12-78) U/L Alkaline Phosphatase (45-117) U/L C-Reactive Protein (0-0.29) mg/dl Total Protein (6.4-8.2) gm/dl Albumin (3.4-5.0) gm/dl Globulin (2.5-4.0) gm/dl Albumin/Globulin Ratio (0.9-2) Procalcitonin (0-0.5) ng/ml Urine Color Urine Appearance (Clear) Urine pH (4.5-7.5) Ur Specific [place] (1.000-1.030) Urine Protein (Negative) Urine Glucose (UA) (Negative) Urine Ketones (Negative) Urine Blood (Negative) Urine Nitrite (Negative) Urine Bilirubin (Negative) Urine Urobilinogen (Negative) Ur Leukocyte Esterase (Negative) Urine WBC (Auto) (0-5) /hpf Urine RBC (Auto) (0-4) /hpf U Hyaline Cast (Auto) (0-5) /lpf U Epithel Cells (Auto) (0-5) /lpf Urine Bacteria (Auto) (Negative) Granular Casts (0) /lpf Stl C. diff Tox B Gene (Neg) Stool Comments Pending A. phagocytophilum DNA Norovirus RNA (PCR) 06/15/20 06/15/20 06/15/20 Range/Units 21:40 19:33 17:20 WBC (4.8-10.8) K/uL RBC (4.2-5.4) M/uL Hgb (12.0-16.0) g/dL Hct (37-47) % MCV (80-100) fL MCH (25-34) pg MCHC (32-36) g/dL RDW Std Deviation (36.4-46.3) fL RDW Coeff of Valentina (11.5-14.5) % Plt Count (130-400) K/uL MPV (7.4-10.4) fL Immature Gran % (Auto) % Neut % (Auto) % Lymph % (Auto) % Bowie % (Auto) % Eos % (Auto) % Baso % (Auto) % Neut # (Auto) (1.4-6.5) K/uL Lymph # (Auto) (1.2-3.4) K/uL Bowie # (Auto) (0.11-0.59) K/uL Eos # (Auto) (0-0.5) K/uL Baso # (Auto) (0-0.2) K/uL Immature Gran # (Auto) (0.00-0.02) K/uL ESR (0-21) mm/hr Sodium (136-145) mmol/L Potassium (3.5-5.1) mmol/L Chloride (98-107) mmol/L Carbon Dioxide (21-32) mmol/L Anion Gap (3-11) BUN (7-18) mg/dl Creatinine (0.6-1.2) mg/dl Est Cr Clr Drug Dosing ml/min Est GFR ( Amer) Est GFR (Non-Af Amer) BUN/Creatinine Ratio (10-20) Glucose (70-99) mg/dl POC Glucose 145 H (70-99) mg/dl Calcium (8.5-10.1) mg/dl Phosphorus (2.5-4.9) mg/dl Magnesium (1.8-2.4) mg/dl Total Bilirubin (0.2-1) mg/dl AST (15-37) U/L ALT (12-78) U/L Alkaline Phosphatase (45-117) U/L C-Reactive Protein (0-0.29) mg/dl Total Protein (6.4-8.2) gm/dl Albumin (3.4-5.0) gm/dl Globulin (2.5-4.0) gm/dl Albumin/Globulin Ratio (0.9-2) Procalcitonin (0-0.5) ng/ml Urine Color Yellow Urine Appearance Clear (Clear) Urine pH 5.0 (4.5-7.5) Ur Specific [place] 1.016 (1.000-1.030) Urine Protein 1+ H (Negative) Urine Glucose (UA) Negative (Negative) Urine Ketones Negative (Negative) Urine Blood Negative (Negative) Urine Nitrite Negative (Negative) Urine Bilirubin Negative (Negative) Urine Urobilinogen Negative (Negative) Ur Leukocyte Esterase Negative (Negative) Urine WBC (Auto) 1-5 (0-5) /hpf Urine RBC (Auto) 0-4 (0-4) /hpf U Hyaline Cast (Auto) 1-5 (0-5) /lpf U Epithel Cells (Auto) >30 H (0-5) /lpf Urine Bacteria (Auto) Negative (Negative) Granular Casts 1-5 H (0) /lpf Stl C. diff Tox B Gene Negative Cdiff Gene (Neg) Stool Comments A. phagocytophilum DNA Norovirus RNA (PCR) 06/15/20 06/15/20 06/15/20 Range/Units 17:20 16:55 16:55 WBC (4.8-10.8) K/uL RBC (4.2-5.4) M/uL Hgb (12.0-16.0) g/dL Hct (37-47) % MCV (80-100) fL MCH (25-34) pg MCHC (32-36) g/dL RDW Std Deviation (36.4-46.3) fL RDW Coeff of Valentina (11.5-14.5) % Plt Count (130-400) K/uL MPV (7.4-10.4) fL Immature Gran % (Auto) % Neut % (Auto) % Lymph % (Auto) % Bowie % (Auto) % Eos % (Auto) % Baso % (Auto) % Neut # (Auto) (1.4-6.5) K/uL Lymph # (Auto) (1.2-3.4) K/uL Bowie # (Auto) (0.11-0.59) K/uL Eos # (Auto) (0-0.5) K/uL Baso # (Auto) (0-0.2) K/uL Immature Gran # (Auto) (0.00-0.02) K/uL ESR (0-21) mm/hr Sodium (136-145) mmol/L Potassium (3.5-5.1) mmol/L Chloride (98-107) mmol/L Carbon Dioxide (21-32) mmol/L Anion Gap (3-11) BUN (7-18) mg/dl Creatinine (0.6-1.2) mg/dl Est Cr Clr Drug Dosing ml/min Est GFR ( Amer) Est GFR (Non-Af Amer) BUN/Creatinine Ratio (10-20) Glucose (70-99) mg/dl POC Glucose (70-99) mg/dl Calcium (8.5-10.1) mg/dl Phosphorus 2.3 L (2.5-4.9) mg/dl Magnesium 2.0 (1.8-2.4) mg/dl Total Bilirubin (0.2-1) mg/dl AST (15-37) U/L ALT (12-78) U/L Alkaline Phosphatase (45-117) U/L C-Reactive Protein (0-0.29) mg/dl Total Protein (6.4-8.2) gm/dl Albumin (3.4-5.0) gm/dl Globulin (2.5-4.0) gm/dl Albumin/Globulin Ratio (0.9-2) Procalcitonin 0.34 (0-0.5) ng/ml Urine Color Urine Appearance (Clear) Urine pH (4.5-7.5) Ur Specific [place] (1.000-1.030) Urine Protein (Negative) Urine Glucose (UA) (Negative) Urine Ketones (Negative) Urine Blood (Negative) Urine Nitrite (Negative) Urine Bilirubin (Negative) Urine Urobilinogen (Negative) Ur Leukocyte Esterase (Negative) Urine WBC (Auto) (0-5) /hpf Urine RBC (Auto) (0-4) /hpf U Hyaline Cast (Auto) (0-5) /lpf U Epithel Cells (Auto) (0-5) /lpf Urine Bacteria (Auto) (Negative) Granular Casts (0) /lpf Stl C. diff Tox B Gene (Neg) Stool Comments A. phagocytophilum DNA Norovirus RNA (PCR) Pending 06/15/20 06/15/20 06/15/20 Range/Units 16:55 16:55 16:55 WBC 7.84 (4.8-10.8) K/uL RBC 3.94 L (4.2-5.4) M/uL Hgb 11.4 L (12.0-16.0) g/dL Hct 35.0 L (37-47) % MCV 88.8 (80-100) fL MCH 28.9 (25-34) pg MCHC 32.6 (32-36) g/dL RDW Std Deviation 48.0 H (36.4-46.3) fL RDW Coeff of Valentina 14.6 H (11.5-14.5) % Plt Count 189 (130-400) K/uL MPV 9.7 (7.4-10.4) fL Immature Gran % (Auto) 0.1 % Neut % (Auto) 82.9 % Lymph % (Auto) 7.9 % Bowie % (Auto) 8.7 % Eos % (Auto) 0.3 % Baso % (Auto) 0.1 % Neut # (Auto) 6.50 (1.4-6.5) K/uL Lymph # (Auto) 0.62 L (1.2-3.4) K/uL Bowie # (Auto) 0.68 H (0.11-0.59) K/uL Eos # (Auto) 0.02 (0-0.5) K/uL Baso # (Auto) 0.01 (0-0.2) K/uL Immature Gran # (Auto) 0.01 (0.00-0.02) K/uL ESR 61 H (0-21) mm/hr Sodium 135 L (136-145) mmol/L Potassium 3.7 (3.5-5.1) mmol/L Chloride 103 (98-107) mmol/L Carbon Dioxide 20 L (21-32) mmol/L Anion Gap 12.0 H (3-11) BUN 16 (7-18) mg/dl Creatinine 1.50 H (0.6-1.2) mg/dl Est Cr Clr Drug Dosing 39.7 ml/min Est GFR ( Amer) 43.1 Est GFR (Non-Af Amer) 37.2 BUN/Creatinine Ratio 10.8 (10-20) Glucose 232 H (70-99) mg/dl POC Glucose (70-99) mg/dl Calcium 9.3 (8.5-10.1) mg/dl Phosphorus (2.5-4.9) mg/dl Magnesium (1.8-2.4) mg/dl Total Bilirubin 0.5 (0.2-1) mg/dl AST 31 (15-37) U/L ALT 29 (12-78) U/L Alkaline Phosphatase 107 (45-117) U/L C-Reactive Protein 22.50 H (0-0.29) mg/dl Total Protein 7.8 (6.4-8.2) gm/dl Albumin 3.2 L (3.4-5.0) gm/dl Globulin 4.6 H (2.5-4.0) gm/dl Albumin/Globulin Ratio 0.7 L (0.9-2) Procalcitonin (0-0.5) ng/ml Urine Color Urine Appearance (Clear) Urine pH (4.5-7.5) Ur Specific [place] (1.000-1.030) Urine Protein (Negative) Urine Glucose (UA) (Negative) Urine Ketones (Negative) Urine Blood (Negative) Urine Nitrite (Negative) Urine Bilirubin (Negative) Urine Urobilinogen (Negative) Ur Leukocyte Esterase (Negative) Urine WBC (Auto) (0-5) /hpf Urine RBC (Auto) (0-4) /hpf U Hyaline Cast (Auto) (0-5) /lpf U Epithel Cells (Auto) (0-5) /lpf Urine Bacteria (Auto) (Negative) Granular Casts (0) /lpf Stl C. diff Tox B Gene (Neg) Stool Comments A. phagocytophilum DNA Norovirus RNA (PCR) Diagnostic Findings Chest 2 View IMPRESSION: Trace pleural effusions. PG Care Time/CCT Total # of Minutes Spent Total Time Spent with Patient: Total time spent is greater than 50% in behavioral health care coordinator rdination of care (as documented) at patient's floor/unit and/or counseling patient: Coding Level of Care Code 07109 Subseq Hosp Care Lvl 3 Diagnoses Fever R50.9 Fever type: unspecified Diarrhea R19.7 Diarrhea type: unspecified type H/O kidney transplant Z94.0 CKD (chronic kidney disease) stage 4, GFR 15-29 ml/min N18.4 Gastritis K29.70 Chronicity: unspecified Gastritis bleeding: without bleeding Gastritis type: unspecified gastritis Diabetes mellitus E11.22; Z79.4 Chronic kidney disease stage: unspecified stage Diabetes mellitus complication detail: with chronic kidney disease Diabetes mellitus complication status: with kidney complications Diabetes mellitus [facility] insulin use: with [facility] use Diabetes mellitus type: type 2 Hypertension I10 Hypertension type: essential hypertension Hyperlipidemia E78.5 Hyperlipidemia type: unspecified Restless legs syndrome G25.81 Gout M10.9 Chronicity: unspecified Gout etiology: unspecified cause Gout site: unspecified site Hypophosphatemia E83.39 Hypokalemia E87.6 Depression F32.9 Depression Type: unspecified Migraine G43.909 Intractability: not intractable Migraine type: unspecified Status migrainosus presence: without status migrainosus Non-celiac gluten sensitivity K90.41 DVT prophylaxis Z29.9 (1) Fever Fever type: unspecified Qualified Code(s): R50.9 - Fever, unspecified (2) Diabetes mellitus Chronic kidney disease stage: unspecified stage Diabetes mellitus complication detail: with chronic kidney disease Diabetes mellitus complication status: with kidney complications Diabetes mellitus [facility] insulin use: with [facility] use Diabetes mellitus type: type 2 Qualified Code(s): E11.22 - Type 2 diabetes mellitus with diabetic chronic kidney disease; Z79.4 - [facility] (current) use of insulin (3) Gout Chronicity: unspecified Gout etiology: unspecified cause Gout site: unspecified site Qualified Code(s): M10.9 - Gout, unspecified (4) Depression Depression Type: unspecified Qualified Code(s): F32.9 - Major depressive disorder, single episode, unspecified (5) Diarrhea Diarrhea type: unspecified type Qualified Code(s): R19.7 - Diarrhea, unspecified (6) Gastritis Chronicity: unspecified Gastritis bleeding: without bleeding Gastritis type: unspecified gastritis Qualified Code(s): K29.70 - Gastritis, unspecified, without bleeding (7) Migraine Intractability: not intractable Migraine type: unspecified Status migrainosus presence: without status migrainosus Qualified Code(s): G43.909 - Migraine, unspecified, not intractable, without status migrainosus (8) Hyperlipidemia Hyperlipidemia type: unspecified Qualified Code(s): E78.5 - Hyperlipidemia, unspecified (9) Hypertension Hypertension type: essential hypertension Qualified Code(s): I10 - Essential (primary) hypertension
[2020-06-16] MEDS ORDERED: SODIUM PHOSPHATE 15 MMOL in SODIUM CHLORIDE 0.9% 250 ML IV ONE (11:15)
--- NOTE | 2020-06-16 12:00 | Gastrointestinal Consultation ---
Date of Consultation June 16, 2020 Assessment & Plan (1) Diarrhea: Patient is a 60 yo female with diarrhea. Etiologies include infectious vs overflow vs other -Add Metamucil given fecal retention and formed stool on imaging. -Agree with obtaining stool studies to rule out the unusual infectious causes given her transplant history. Studies for Giardia, cyclospora, isospora, direct O&P smear, and CMV are pending. -Can add to endoscopy schedule for a colonoscopy with random biopsies with Dr. Kirk on if no other cause is identified prior. Supervising Physician Co-Signing Physician Notes Agree with GONZALES Serrato as above Abd: Soft, NT, ND Await stool studies Consider colonoscopy with random biopsies if symptoms persist. History of Present Illness Reason for Consultation: Diarrhea, fever Attending Physician: Shivam Mccann MD History of Present Illness Patient is a 60 yo female hospitalized at [facility] for fever and diarrhea. She has a history of renal transplant x 2, HTN, DM2, HLD. She reports that her symptoms began with a fever on 06/11. She reports that 2 days later she developed diarrhea. She notes her Tmax was 101-102. This fever was relieved by Tylenol, but she reports that it kept returning. She notes watery stool without bleeding. Stool is waking her up at night and seems to be independent of meals. She denies abdominal pain. She is COVID19 negative. She recently had an EGD & colonoscopy in March 2020 that did not indicate any acute concerns. She does have a history of C diff, however her testing was negative here. She takes Protonix and follows a gluten-free diet. She has had a CT scan and a KUB that show formed stool in the colon. She reports she has >10 episodes of diarrhea daily. 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 She has not had a recurrence since.Stool studies for enteric pathoogens were negative. Allergies Allergy/AdvReac Type Severity Reaction Status Date / Time Iodinated Contrast Media Allergy Severe Hx Kidney Verified 06/15/20 19:57 Transplant Jxszmhq-Fwv-Uar Reductase Allergy Severe "PANCREATIT Verified 06/15/20 19:57 Inhibitor IS" sumatriptan Allergy Severe seizure Verified 06/15/20 19:57 hydrochlorothiazide Allergy Mild Unknown Verified 06/15/20 19:57 Sulfa (Sulfonamide Allergy Mild . Verified 06/15/20 19:57 Antibiotics) triamterene Allergy Mild Unknown Verified 06/15/20 19:57 atorvastatin Allergy Unknown ? Verified 06/15/20 19:57 doxycycline Allergy Unknown UNKNOWN Verified 06/15/20 19:57 levofloxacin Allergy Unknown joint pain Verified 06/15/20 19:57 adhesive AdvReac Unknown SKIN TEAR Verified 06/15/20 19:57 Cipro AdvReac Unknown FATIGUE Verified 01/20/18 21:00 ciprofloxacin AdvReac Unknown FATIGUE Verified 06/13/20 12:01 morphine AdvReac Unknown INEFFECTIVE Verified 06/13/20 12:01 Home Medications Home Medications Medication Instructions Recorded Confirmed Type Levemir FlexTouch U-100 Insuln 9 units SUBCUT HS 09/01/18 06/15/20 History allopurinol 300 mg PO TUTHSA 09/01/18 06/15/20 History tamsulosin 0.4 mg PO BID 03/26/19 06/15/20 History prednisone 5 mg tablet 5 mg PO QAM #90 tab 05/02/19 06/15/20 Rx azelastine 2 spray INTRANASAL Q12H PRN 07/10/19 06/15/20 History fluticasone propionate [Flonase 2 spray INTRANASAL DAILY PRN 07/10/19 06/15/20 History Allergy Relief] mycophenolate sodium 180 mg 360 mg PO BID #360 tab 11/04/19 06/15/20 Rx tablet,delayed release ropinirole 0.25 mg tablet 0.25 mg PO HS #90 tab 01/27/20 06/15/20 Rx carvedilol 6.25 mg tablet 18.75 mg PO BID #540 tab 03/18/20 06/15/20 Rx PNV cmb#95-ferrous fumarate-FA 1 tab PO QAM 04/13/20 06/15/20 History [] Premarin 0.625 mg PO WE 04/13/20 06/15/20 History cribuiuqvc-udpcejsequiri-bwad 1 cap PO Q6H PRN 04/13/20 06/15/20 History [Fioricet] repaglinide 0.5 mg PO TID PRN 04/13/20 06/15/20 History sirolimus 2 mg PO QAM 04/13/20 06/15/20 History pantoprazole 40 mg PO QAM 05/23/20 06/15/20 History venlafaxine 75 mg PO QAM 06/09/20 06/15/20 History doxycycline hyclate 100 mg PO BID #28 cap 06/11/20 06/15/20 Rx acetaminophen [Tylenol Extra 1,000 mg PO DIRECTED PRN 06/13/20 06/15/20 History Strength] Patient History Medical History Abdominal pain Acute gout Acute pyelonephritis Acute renal failure Allergic rhinitis due to allergen CKD (chronic kidney disease) stage 4, GFR 15-29 ml/min Clostridium difficile diarrhea Dehydration Diarrhea of presumed infectious origin Fever HTN (hypertension) Immunosuppressed status Intractable vomiting Migraine Pancreatitis Recurrent Clostridium difficile diarrhea SBO (small bowel obstruction) Sepsis Sinus congestion SIRS (systemic inflammatory response syndrome) Unspecified asthma UTI (lower urinary tract infection) (10/21/14) Surgical History History of hernia surgery Hx of appendectomy Hx of cholecystectomy Kidney replaced by transplant x2. most recent 1 year ago Family History Other Family history non-contributory Social History Smoking Status: Former smoker Smoking End Date: 1983; Second Hand Exposure: No; Hx Alcohol Use: Yes Alcohol type: beer Hx Substance Use: No Preferred Language: Taiwanese Communication Ability: Effective Juvenile Counselor Required: No Beliefs That Will Affect Care: None marital status: Current Living Situation: Spouse Other Information That Helps Us Care for You: No Feels Safe at Home: Yes Safety Concerns: Feels Safe At This Time Assistive Devices: Glasses Review of Systems Constitutional: + fever and + chills Eyes: no problem reported Respiratory: no cough and no dyspnea Cardiovascular: no chest pain Gastrointestinal: + diarrhea/loose stools Musculoskeletal: no problem reported Integumentary: no rash Psychiatric: no problem reported Physical Exam Constitutional: well developed and well nourished Eyes: no conjunctival abnormality Neck: normal visual inspection Respiratory: normal respiratory effort Cardiovascular: Extremities: no edema Gastrointestinal (Abdomen): Inspection/Auscultation: abdomen normal to inspection Musculoskeletal: Head/Neck/Chest: normocephalic Skin: no rashes Neurologic: Motor/Sensory: no tremor Psychiatric: A+Ox3, euthymic affect Results & Data ([facility]) Vital Signs (Past 12 Hours) Vital Signs Temp Pulse Pulse Resp BP Pulse Ox 06/16/20 11:45 36.9 C 84 18 113/66 95 06/16/20 10:21 37.8 C H 06/16/20 08:26 38 C H 06/16/20 07:15 37.0 C 72 18 165/81 H 100 06/16/20 03:59 36.8 C 58 L 16 137/75 100 06/16/20 02:59 60 PG Care Time/CCT Total # of Minutes Spent Total Time Spent with Patient: Total time spent is greater than 50% in coordination of care (as documented) at patient's floor/unit and/or counseling patient: Coding Level of Care Code 87755 Inpt Consult Level 4 Diagnoses Diarrhea R19.7 Diarrhea type: unspecified type (1) Diarrhea Diarrhea type: unspecified type Qualified Code(s): R19.7 - Diarrhea, unspecified
[2020-06-16] MEDS: PSYLLIUM 58.6% POWDER PACKET PO SCH (12:26)
[2020-06-16] MEDS ORDERED: LOPERAMIDE HCL 2 MG CAP PO STA (12:47)
--- NOTE | 2020-06-16 16:54 | CT Scan Report ---
CT SCAN OF THE ABDOMEN AND PELVIS WITHOUT IV CONTRAST CLINICAL HISTORY: Diarrhea. Abdominal bloating. COMPARISON STUDY: Abdominal CT scan dated 06/13/2020 and 04/13/2020. TECHNIQUE: CT scan of the abdomen and pelvis is performed from the lung bases to the proximal femora. Images are reviewed in the axial, sagittal, and coronal planes. IV contrast was not administered for this examination. Note that the examination is suboptimal without IV contrast. Oral contrast was uti lized. A dose lowering technique was utilized adhering to the principles of ALARA. CT DOSE: 336.75 mGy.cm FINDINGS: Lung bases: The heart is normal in size noting a small pericardial effusion. There are trace pleural effusions and bibasilar atelectasis. No airspace consolidation is seen typical for pneumonia. A tiny calcified granuloma seen in the right lower lobe. There are calcified breast implants seen on the sco ut tomogram. There is a tiny hiatal hernia. Liver: The unenhanced liver is enlarged, measuring 21 cm in length. The liver is normal in contour an d attenuation. There is mild to moderate intrahepatic biliary ductal dilatation. The liver is infiltr ated by numerous simple cysts. The largest is seen in the right lobe and measures up to 5.5 cm. Gallbladder: Surgically absent noting clips in the gallbladder fossa. There is unchanged dilatation o f the common bile duct. Spleen: Normal in size and attenuation. Pancreas: The unenhanced pancreas is atrophic and grossly unremarkable. Adrenal glands: Unremarkable. Kidneys: The kidneys are surgically absent. No abnormality is identified in the renal fossa bilateral ly. Abdominal vasculature: The abdominal aorta is normal in course and caliber noting mild atheroscleroti c calcification. Bowel: There is postoperative change from right hemicolectomy with ileocolic anastomosis. There is no bowel obstruction. Enteric contrast reaches the distal small bowel. Liquid stool seen in the colon. There is mild diverticulosis of the left colon without CT evidence of acute diverticulitis. A small d uodenal diverticulum is incidentally noted. Peritoneum: There is no intraperitoneal free air or abdominal ascites. A midline surgical scar is not ed. There is no evidence of abdominal wall hernia. Lymphadenopathy: None. Pelvic viscera: The bladder wall appears mildly thickened there is pericystic inflammation. The uteru s and adnexa are normal as visualized. There are renal transplants presently pelvis bilaterally. The left renal transplant is atrophic. There is fullness of the collecting system of the right pelvic ej al transplant. Nonspecific stranding is noted around the right renal transplant. This is unchanged fr om prior studies. No renal calculi are identified. Trace free fluid in the pelvis is new from previou s. Skeletal structures: The skeletal structures are osteopenic. There is mild lumbosacral spondylosis. N o lytic or blastic lesions are seen. IMPRESSION: 1. Question cystitis. Correlation with clinical findings and urinalysis will be required. 2. Liquid stool is noted in the colon. Correlate clinically for evidence of a diarrheal illness. 3. The [place] kidneys are surgically absent. Bilateral renal transplants are seen in the pelvis. 4. Trace pleural effusions and small pericardial effusion. 5. Trace free fluid in the pelvis is new from previous. 6. Enlarged and multicystic liver, similar in appearance to prior studies. 7. Additional findings as above. ACT 112: Negative or not required by law. Electronically signed by: Bradley Rivas M.D. 06/16/2020 4:52 PM
[2020-06-16] MEDS: ACETAMINOPHEN 325 MG TAB PO PRN ×2 (18:00→22:01)
[2020-06-16] MEDS: PROMETHAZINE HCL 12.5 MG in SODIUM CHLORIDE 0.9% 50 ML IV PRN (18:39)
[2020-06-16] MEDS: ROPINIROLE HCL 0.25 MG TABLET PO SCH (20:13)
[2020-06-16] MEDS: INSULIN DETEMIR FLEXPEN/FLEX TOUCH 100 UNITS/ML 3ML SQ SCH (20:16)
[2020-06-17] MEDS: ACETAMINOPHEN 325 MG TAB PO PRN ×2 (01:55→06:26)
[2020-06-17 06:03] LABS: Basophils # (auto) 0.01 K/uL (0-0.2); Basophils % (auto) 0.2 %; Eosinophils # (auto) 0.02 K/uL (0-0.5); Eosinophils % (auto) 0.4 %; Hemoglobin 9.6 g/dL (12.0-16.0); Immature Granulocytes # (auto) 0.03 K/uL (0.00-0.02); Immature Granulocytes % (auto) 0.6 %; Lymphocytes # (auto) 0.44 K/uL (1.2-3.4); Lymphocytes % (auto) 8.1 %; Mean Corpuscular Hemoglobin 28.8 pg (25-34); Mean Corpuscular Hgb Conc 33.1 g/dL (32-36); Mean Corpuscular Volume 87.1 fL (80-100); Mean Platelet Volume 8.9 fL (7.4-10.4); Monocytes # (auto) 0.97 K/uL (0.11-0.59); Monocytes % (auto) 17.9 %; Neutrophils # (auto) 3.95 K/uL (1.4-6.5); Neutrophils % (auto) 72.8 %; Platelet Count 158 K/uL (130-400); RDW Coefficient of Variation 14.7 % (11.5-14.5); RDW Standard Deviation 46.9 fL (36.4-46.3); Red Blood Count 3.33 M/uL (4.2-5.4); White Blood Count 5.42 K/uL (4.8-10.8)
[2020-06-17 06:32] LABS: Albumin Level 2.4 gm/dl (3.4-5.0); BUN Creatinine Ratio 9.3 (10-20); Calcium 8.5 mg/dl (8.5-10.1); Creatinine Clr Calc Pharmacy 45.5 ml/min; Est GFR (African American) 50.8; Est GFR (Non-African American) 43.8; Magnesium 1.8 mg/dl (1.8-2.4); Potassium 3.7 mmol/L (3.5-5.1)
[2020-06-17 06:45] LABS: Albumin Globulin Ratio 0.6 (0.9-2); Bilirubin,Total 0.4 mg/dl (0.2-1); Phosphorus 1.8 mg/dl (2.5-4.9); Total Protein 6.4 gm/dl (6.4-8.2)
[2020-06-17] MEDS: ONDANSETRON INJ 2 MG/ML 2 ML VIAL IV PRN (08:34)
[2020-06-17] MEDS: INSULIN ASPART 100 UNITS/ML 3 ML PEN SC SCH ×4 (08:43→21:48)
[2020-06-17] MEDS ORDERED: PIPERACILL/TAZOBAC CONSULT ACTIVE PRN (08:48)
[2020-06-17] MEDS ORDERED: SODIUM PHOSPHATE 3 MMOL/1 ML INFUSION IV STA (08:50)
[2020-06-17] MEDS ORDERED: SODIUM PHOSPHATE 21 MMOL in SODIUM CHLORIDE 0.9% 500 ML IV ONE (09:00)
[2020-06-17] MEDS ORDERED: PIPERACILLIN/TAZOBACTAM 4.5 GM in DEXTROSE 5% 100 ML IV ONE (09:15)
[2020-06-17] MEDS: PSYLLIUM 58.6% POWDER PACKET PO SCH (09:25)
[2020-06-17] MEDS: VENLAFAXINE HCL XR 75 MG CAPXR PO SCH (09:26)
[2020-06-17] MEDS: TAMSULOSIN HCL 0.4 MG CAP PO SCH ×2 (09:26→21:47)
[2020-06-17] MEDS: MYCOPHENOLATE SODIUM 180 MG TAB PO SCH ×2 (09:26→21:47)
[2020-06-17] MEDS: carvediloL 6.25 MG TAB PO SCH ×2 (09:26→21:49)
[2020-06-17] MEDS: predniSONE 5 MG TAB PO SCH (09:26)
[2020-06-17] MEDS: PANTOprazole 40 MG TAB PO SCH (09:27)
[2020-06-17] MEDS: SIROLIMUS 0.5 MG TABLET PO SCH (09:27)
--- NOTE | 2020-06-17 10:12 | Nephrology Progress Note ---
Date of Service June 17, 2020 Assessment & Plan (1) H/O kidney transplant: Mrs. Bowling remains stable. However, she continues to be febrile and continues to have diarrhea. GI and infectious disease consults were noted. She is to be off antibiotics pending the results of the studies that of been done unless she becomes somewhat unstable from the standpoint of her vital signs. GI is apparently considering a colonoscopy. No changes from the renal standpoint as her renal function remains quite stable on her current immunosuppression. Her mycophenolate sodium has been reduced by 50%. An emphasis should be made to maintain her hydration status as long as she does not become volume overloaded and persistently hypertensive. Given the swings in her blood pressure, I do not think that we need to change any of her antihypertensive regimen or add a diuretic. (2) Fever: (3) Diarrhea: Admission and Anticipated Discharge Date Admission Date: June 16, 2020 Subjective Mrs. Bowling continues not to feel well. She is having intermittent chills but no reji rigor. She continues to run a significant fever. She continues to have diarrhea. She denies having any crampy abdominal pain. She has not noted any hematochezia. She has no lower urinary tract complaints. Infectious disease has seen the patient through a telehealth visit. They recommended that antibiotics be held at least as long as the patient's hemodynamics are stable or until a specific pathogen is identified. Multiple stool studies are pending. She has had no symptoms of volume overload or uremia. Her urine output stays reasonably good. She is trying to remain hydrated by taking fluids. However, solid foods have a tendency to increase her symptoms of diarrhea. She has no other particular complaints. Physical Exam Physical Exam: On physical examination, Mrs. Bowling appears about the same. She is a chronically ill-appearing woman but certainly does not appear to be in distress at the current time. She appears to be of about her stated age of 60. Her blood pressure is currently 186/88. However, her blood pressures have fluctuated widely from a low of 113/66 to the current high of 186/88. Her heart rate is 94 and regular. Her respiratory rate is 18 with an oxygen saturation of 99% on room air. Her temperature this morning is 38.9. Her skin shows normal skin turgor. She has multiple scars from prior surgical procedures. She has a few scattered ecchymoses. There was no rash or infiltrative skin disease. She has no palpable lymphadenopathy. Her head is grossly normal. Eyes are grossly normal. She has no conjunctival icterus. Ears, nose, mouth and throat are unremarkable. Her oral mucous membranes are moist. Her neck is supple. There is no jugular venous distention, carotid bruit or thyromegaly. Her chest is clear to auscultation. Cardiac exam shows a regular rhythm. S1 and S2 are normal. I hear no murmur or gallop. Her abdomen is slightly protuberant. She has multiple scars from prior abdominal surgeries including her transplants, previous bowel resection and repair of a ventral hernia. Her renal transplants are palpable in the lower quadrants they are nontender. She has a soft bruit over the right lower quadrant transplant. Bowel sounds are present and seem normal. There is no definite organomegaly or mass. Extremities show no cyanosis, clubbing or peripheral edema. Peripheral pulses are intact. She has no lateralizing neurologic changes. Results & Data ([facility]) Vital Signs (Past 12 Hours) Vital Signs Temp Pulse Resp BP Pulse Ox 06/17/20 08:42 38.9 C H 99 06/17/20 07:32 38.6 C H 94 H 18 186/88 H 100 06/17/20 05:42 37.9 C H 06/17/20 01:49 38.0 C H 06/16/20 23:00 38.1 C H 77 18 125/69 98 Laboratory Results Laboratory Results - last 24 hr 06/16/20 06/16/20 06/16/20 06:15 11:14 11:14 WBC RBC Hgb Hct MCV MCH MCHC RDW Std Deviation RDW Coeff of Valentina Plt Count MPV Immature Gran % (Auto) Neut % (Auto) Lymph % (Auto) Cassia % (Auto) Eos % (Auto) Baso % (Auto) Neut # (Auto) Lymph # (Auto) Cassia # (Auto) Eos # (Auto) Baso # (Auto) Immature Gran # (Auto) Sodium Potassium Chloride Carbon Dioxide Anion Gap BUN Creatinine Est Cr Clr Drug Dosing Est GFR ( Amer) Est GFR (Non-Af Amer) BUN/Creatinine Ratio Glucose POC Glucose Calcium Phosphorus Magnesium Total Bilirubin AST ALT Alkaline Phosphatase Total Protein Albumin Globulin Albumin/Globulin Ratio Stl Cryptosporidium Ag Pending Stl Isospora & Cyclospora Pending Stool Comments Pending CMV IgM Ab Pending CMV DNA Qual PCR Pending CMV IgG Ab/TORCH Pending EBV Capsid Ag IgG Ab EBV Capsid Ag IgM Ab EBV Nuclear Antigen Ab EBV Antibody Interp Giardia Antigen Pending Ref Lab Test Source Pending 06/16/20 06/16/20 06/16/20 11:44 16:51 20:13 WBC RBC Hgb Hct MCV MCH MCHC RDW Std Deviation RDW Coeff of Valentina Plt Count MPV Immature Gran % (Auto) Neut % (Auto) Lymph % (Auto) Cassia % (Auto) Eos % (Auto) Baso % (Auto) Neut # (Auto) Lymph # (Auto) Cassia # (Auto) Eos # (Auto) Baso # (Auto) Immature Gran # (Auto) Sodium Potassium Chloride Carbon Dioxide Anion Gap BUN Creatinine Est Cr Clr Drug Dosing Est GFR ( Amer) Est GFR (Non-Af Amer) BUN/Creatinine Ratio Glucose POC Glucose 159 H 147 H 118 H Calcium Phosphorus Magnesium Total Bilirubin AST ALT Alkaline Phosphatase Total Protein Albumin Globulin Albumin/Globulin Ratio Stl Cryptosporidium Ag Stl Isospora & Cyclospora Stool Comments CMV IgM Ab CMV DNA Qual PCR CMV IgG Ab/TORCH EBV Capsid Ag IgG Ab EBV Capsid Ag IgM Ab EBV Nuclear Antigen Ab EBV Antibody Interp Giardia Antigen Ref Lab Test Source 06/17/20 06/17/20 06/17/20 05:37 05:37 07:36 WBC 5.42 RBC 3.33 L Hgb 9.6 L Hct 29.0 L MCV 87.1 MCH 28.8 MCHC 33.1 RDW Std Deviation 46.9 H RDW Coeff of Valentina 14.7 H Plt Count 158 MPV 8.9 Immature Gran % (Auto) 0.6 Neut % (Auto) 72.8 Lymph % (Auto) 8.1 Cassia % (Auto) 17.9 Eos % (Auto) 0.4 Baso % (Auto) 0.2 Neut # (Auto) 3.95 Lymph # (Auto) 0.44 L Cassia # (Auto) 0.97 H Eos # (Auto) 0.02 Baso # (Auto) 0.01 Immature Gran # (Auto) 0.03 H Sodium 139 Potassium 3.7 Chloride 111 H Carbon Dioxide 18 L Anion Gap 10.0 BUN 12 Creatinine 1.31 H Est Cr Clr Drug Dosing 45.5 Est GFR ( Amer) 50.8 Est GFR (Non-Af Amer) 43.8 BUN/Creatinine Ratio 9.3 L Glucose 99 POC Glucose 101 H Calcium 8.5 Phosphorus 1.8 L Magnesium 1.8 Total Bilirubin 0.4 AST 24 ALT 28 Alkaline Phosphatase 88 Total Protein 6.4 Albumin 2.4 L Globulin 4.0 Albumin/Globulin Ratio 0.6 L Stl Cryptosporidium Ag Stl Isospora & Cyclospora Stool Comments CMV IgM Ab CMV DNA Qual PCR CMV IgG Ab/TORCH EBV Capsid Ag IgG Ab EBV Capsid Ag IgM Ab EBV Nuclear Antigen Ab EBV Antibody Interp Giardia Antigen Ref Lab Test Source 06/17/20 09:27 WBC RBC Hgb Hct MCV MCH MCHC RDW Std Deviation RDW Coeff of Valentina Plt Count MPV Immature Gran % (Auto) Neut % (Auto) Lymph % (Auto) Cassia % (Auto) Eos % (Auto) Baso % (Auto) Neut # (Auto) Lymph # (Auto) Cassia # (Auto) Eos # (Auto) Baso # (Auto) Immature Gran # (Auto) Sodium Potassium Chloride Carbon Dioxide Anion Gap BUN Creatinine Est Cr Clr Drug Dosing Est GFR ( Amer) Est GFR (Non-Af Amer) BUN/Creatinine Ratio Glucose POC Glucose Calcium Phosphorus Magnesium Total Bilirubin AST ALT Alkaline Phosphatase Total Protein Albumin Globulin Albumin/Globulin Ratio Stl Cryptosporidium Ag Stl Isospora & Cyclospora Stool Comments CMV IgM Ab CMV DNA Qual PCR CMV IgG Ab/TORCH EBV Capsid Ag IgG Ab Pending EBV Capsid Ag IgM Ab Pending EBV Nuclear Antigen Ab Pending EBV Antibody Interp Pending Giardia Antigen Ref Lab Test Source PG Care Time/CCT Total # of Minutes Spent Total Time Spent with Patient: Total time spent is greater than 50% in coordination of care (as documented) at patient's floor/unit and/or counseling patient: Coding Level of Care Code 47471 Subseq Hosp Care Lvl 3 Diagnoses H/O kidney transplant Z94.0 Fever R50.9 Fever type: unspecified Diarrhea R19.7 Diarrhea type: unspecified type (1) Fever Fever type: unspecified Qualified Code(s): R50.9 - Fever, unspecified (2) Diarrhea Diarrhea type: unspecified type Qualified Code(s): R19.7 - Diarrhea, unspecified
--- NOTE | 2020-06-17 10:24 | Gastroenterology Progress Note ---
Date of Service June 17, 2020 Assessment & Plan (1) Diarrhea: Patient is a 60 yo female with diarrhea. -The majority of stool studies are pending at this point including studies for Giardia, cyclospora, isospora, direct O&P smear, and CMV. -Clear liquid diet today; NPO after midnight with the exception of Golytely prep for colonoscopy on 06/[address] Kirk. -Supportive care per primary team. Thank you for allowing us to participate in the care of this patient. If you should have any further questions contact us at [email or web address] [phone] or [phone]. Admission and Anticipated Discharge Date Admission Date: June 16, 2020 Supervising Physician Co-Signing Physician Notes Agree with Tahira Edmond PAC Abd: Soft, NT, ND Still with profuse diarrhea For colonoscopy in AM with Dr. Kirk Subjective Patient is a 60 yo female with diarrhea and fever. Fever persists. She reports worsening of her diarrhea. She denies abdominal discomfort or rectal bleeding. Stool studies are pending. Review of Systems Constitutional: + fever and + chills Respiratory: no cough and no dyspnea Cardiovascular: no chest pain Gastrointestinal: + diarrhea/loose stools; no abdominal pain and no blood in stools Physical Exam Constitutional: well developed and well nourished Respiratory: normal respiratory effort Cardiovascular: Extremities: no edema Gastrointestinal (Abdomen): Inspection/Auscultation: abdomen normal to inspection Psychiatric: A+Ox3, euthymic affect Results & Data Results & Data ([facility]) Vital Signs (Past 12 Hours) Vital Signs Temp Pulse Resp BP Pulse Ox 06/17/20 08:42 38.9 C H 99 06/17/20 07:32 38.6 C H 94 H 18 186/88 H 100 06/17/20 05:42 37.9 C H 06/17/20 01:49 38.0 C H 06/16/20 23:00 38.1 C H 77 18 125/69 98 PG Care Time/CCT Total # of Minutes Spent Total Time Spent with Patient: Total time spent is greater than 50% in coordination of care (as documented) at patient's floor/unit and/or counseling patient: Coding Level of Care Code 43086 Subseq Hosp Care Lvl 2 Diagnoses Diarrhea R19.7 Diarrhea type: unspecified type (1) Diarrhea Diarrhea type: unspecified type Qualified Code(s): R19.7 - Diarrhea, unspecified
[2020-06-17] MEDS: SODIUM CHLORIDE 0.9% 1000ML 1,000 ML IV SCH ×2 (11:29→21:53)
--- NOTE | 2020-06-17 11:32 | Hospitalist Progress Note ---
Date of Service June 17, 2020 Assessment & Plan (1) Diarrhea: Profuse, watery diarrhea in immunocompromised host. History of c. 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 * Of note, patient also s/p RIGHT hemicolectomy with ileocolic anastomosis 2010 * Cdiff negative * ?CMV colitis or parasitic in patient on chronic immunosuppressant therapy * CT abdomen with oral contrast as above * Stool studies as above * Gluten free diet -- recent dx in the past year non-celiac, gluten sensitive * GI on consult -- appreciate assistance. * Plans for colonoscopy in AM (2) Fever: ??CMV GI involvement? Inflammatory markers elevated, EST 61, CRP 22.5 * Patient afebrile on admission but continues to remain febrile throughout most of her stay. * Tmax 39.3C overnight 06/16 --> currently 37.0 * BCx from admission NGTD, Repeat obtained * BP now hypotensive 95/54, [facility] * Restarted IVF and increased rate to 125cc/hr * Stool studies pending, CMV, EBV * Nephrology, GI, ID consulted -- appreciate assistance * CTAP with liquid stool in colon, diarrheal illness. trace pleural effusions, small pericardial effusion, multicystic magali (similar to prior studies), trace free fluid in pelvis (new), duodenal diverticula noted as well * No abx for now * bowel prep * NPO after midnight for colonoscopy with Dr. Kirk * Trend ESR, CRP in AM along with CBCD, CMP, Mag, phos Ordered Phenergan prn for nausea as she had better relief reported yesterday compared to the zofran (3) H/O kidney transplant: x2 * Mildly elevated BUN and Cr most likely secondary to volume depletion on admission. * Cr 1.31 on AM labs * Transplants are non-tender. * Avoid nephrotoxic agents * Continue Sirolimus and Mycophenolate * Nephrology on consult as above -- continue IV hydration as above * Repeat labs in AM (4) CKD (chronic kidney disease) stage 4, GFR 15-29 ml/min: * Mildly elevated BUN and Cr from baseline, clinically dry in setting of diarrheal losses. Follows with Dr. Roy * IVF NSS at 100mL/hr x 3 L however did appear dry on exam today and ordered additional IVF, increased rate to 125cc/hr as above * Avoid nephrotoxic agents. Renal dosing where needed * BMP in AM (5) Gastritis: * Recently diagnosed. Patient denies abdominal pain, melena or hematochezia at present * Continue Protonix 40 mg po daily (6) Diabetes mellitus: * Patient with DM, elevated blood glucose at present 232. Last NumT6O=2.8 on 05/08/20. No repeat at this time * Hold oral agents while inpatient * Continue Levemir 9u qHS * ISS with accuchecks * BSGs acceptable * Continue to monitor (7) Hypertension: * Blood pressures labile -- had been 186/88 this morning and currently 95/54 * Given extra 5mg prednisone for possible adrenal insuff as she is typically maintained on 5mg daily outpatient * Carvedilol 18.75mg BID with hold parameters (8) Hyperlipidemia: * Chronic. Patient statin intolerant (9) Restless legs syndrome: * Chronic * Continue Ropinirole (10) Gout: * Chronic. Well controlled. Patient denies joint pain or inflammation at present * Continue Allopurinol (11) Hypophosphatemia: * Phos 1.8 from 1.7 after 15mmol IV replacement * Will order 21mmol Kphos today and repeat in AM (12) Hypokalemia: * RESOLVED -- K 3.7 * BMP in AM given above (13) Depression: * Chronic * Continue Venlafaxine 75mg po qAM (14) Migraine: * No migraine reported today. Had received oxycodone 5mg x 1 on admission * Fioricet ordered prn * Tylenol prn * Zofran prn nausea, added phenergan as above (15) Non-celiac gluten sensitivity: * Noted. Diagnosed earlier this year. Also with IgA low at 39 * Gluten free diet as tolerated (16) DVT prophylaxis: * SCDs * Ambulation encouraged Dispo: NPO after midnight for colonoscopy in AM Admission and Anticipated Discharge Date Admission Date: June 16, 2020 Subjective Patient evaluated this morning. Had a bit of a rough night. Continued diarrhea, feeling wiped out. Stools now with yellow appearance, no decrease in frequency noted. Did have better relief with Phenergan last evening she believes with regards to her nausea. She notes she gets nauseous and then her fevers occur. Discussed will call pharmacy regarding IV Tylenol as she has not been able to keep much down. No emesis as she reports she swallows regurgitation. No migraine today. Chills reported as well. No chest pain, shortness of breath, abdominal pain (although she does note bloating/distention), dysuria or increased urinary frequency at this time. Discussed CT results, lab results and plan for prep for colonoscopy with GI tomorrow. Of note, she states that she is aware of multiple cysts on liver, similar to previous studies. Questions/concerns addressed at this time. Review of Systems Review of Systems: All systems reviewed & are unremarkable except as noted in HPI & below Physical Exam Constitutional: well developed, + ill appearing and comfortable Eyes: + anicteric sclerae and PERRL ENMT: dry mm Neck: normal visual inspection Respiratory: normal respiratory effort and able to speak in complete sentences; no respiratory distress Auscultation: no wheezes Cardiovascular: RRR, no murmur, no edema Gastrointestinal (Abdomen): normal bowel sounds, soft, nontender, no hepatosplenomegaly Inspection/Auscultation: + abdomen distended multiple healed surgical scars Musculoskeletal: no cyanosis or clubbing, extremities motor strength 5/5 Skin: warm, moist Neurologic: PERRL, EOMI, accommodation nl, no face palsy, no dysarthria Psychiatric: Orientation: alert and oriented x 3 Lymphatic: no cervical or axillary lymphadenopathy Results & Data Results & Data ([facility]) Vital Signs (Past 12 Hours) Vital Signs Temp Pulse Pulse Resp BP Pulse Ox 06/17/20 11:30 37.8 C H 83 18 106/65 98 06/17/20 10:34 37.5 C 06/17/20 09:38 84 06/17/20 08:42 38.9 C H 99 06/17/20 07:32 38.6 C H 94 H 18 186/88 H 100 06/17/20 05:42 37.9 C H 06/17/20 01:49 38.0 C H Laboratory Results 06/17/20 06/17/20 06/17/20 Range/Units 16:30 11:41 09:27 WBC (4.8-10.8) K/uL RBC (4.2-5.4) M/uL Hgb (12.0-16.0) g/dL Hct (37-47) % MCV (80-100) fL MCH (25-34) pg MCHC (32-36) g/dL RDW Std Deviation (36.4-46.3) fL RDW Coeff of Valentina (11.5-14.5) % Plt Count (130-400) K/uL MPV (7.4-10.4) fL Immature Gran % (Auto) % Neut % (Auto) % Lymph % (Auto) % [place] % (Auto) % Eos % (Auto) % Baso % (Auto) % Neut # (Auto) (1.4-6.5) K/uL Lymph # (Auto) (1.2-3.4) K/uL [place] # (Auto) (0.11-0.59) K/uL Eos # (Auto) (0-0.5) K/uL Baso # (Auto) (0-0.2) K/uL Immature Gran # (Auto) (0.00-0.02) K/uL Sodium (136-145) mmol/L Potassium (3.5-5.1) mmol/L Chloride (98-107) mmol/L Carbon Dioxide (21-32) mmol/L Anion Gap (3-11) BUN (7-18) mg/dl Creatinine (0.6-1.2) mg/dl Est Cr Clr Drug Dosing ml/min Est GFR ( Amer) Est GFR (Non-Af Amer) BUN/Creatinine Ratio (10-20) Glucose (70-99) mg/dl POC Glucose 205 H 184 H (70-99) mg/dl Calcium (8.5-10.1) mg/dl Phosphorus (2.5-4.9) mg/dl Magnesium (1.8-2.4) mg/dl Total Bilirubin (0.2-1) mg/dl AST (15-37) U/L ALT (12-78) U/L Alkaline Phosphatase (45-117) U/L Total Protein (6.4-8.2) gm/dl Albumin (3.4-5.0) gm/dl Globulin (2.5-4.0) gm/dl Albumin/Globulin Ratio (0.9-2) TSH (0.300-4.500) uIu/ml EBV Capsid Ag IgG Ab Pending EBV Capsid Ag IgM Ab Pending EBV Nuclear Antigen Ab Pending EBV Antibody Interp Pending 06/17/20 06/17/20 06/17/20 Range/Units 07:36 05:37 05:37 WBC (4.8-10.8) K/uL RBC (4.2-5.4) M/uL Hgb (12.0-16.0) g/dL Hct (37-47) % MCV (80-100) fL MCH (25-34) pg MCHC (32-36) g/dL RDW Std Deviation (36.4-46.3) fL RDW Coeff of Valentina (11.5-14.5) % Plt Count (130-400) K/uL MPV (7.4-10.4) fL Immature Gran % (Auto) % Neut % (Auto) % Lymph % (Auto) % [place] % (Auto) % Eos % (Auto) % Baso % (Auto) % Neut # (Auto) (1.4-6.5) K/uL Lymph # (Auto) (1.2-3.4) K/uL [place] # (Auto) (0.11-0.59) K/uL Eos # (Auto) (0-0.5) K/uL Baso # (Auto) (0-0.2) K/uL Immature Gran # (Auto) (0.00-0.02) K/uL Sodium 139 (136-145) mmol/L Potassium 3.7 (3.5-5.1) mmol/L Chloride 111 H (98-107) mmol/L Carbon Dioxide 18 L (21-32) mmol/L Anion Gap 10.0 (3-11) BUN 12 (7-18) mg/dl Creatinine 1.31 H (0.6-1.2) mg/dl Est Cr Clr Drug Dosing 45.5 ml/min Est GFR ( Amer) 50.8 Est GFR (Non-Af Amer) 43.8 BUN/Creatinine Ratio 9.3 L (10-20) Glucose 99 (70-99) mg/dl POC Glucose 101 H (70-99) mg/dl Calcium 8.5 (8.5-10.1) mg/dl Phosphorus 1.8 L (2.5-4.9) mg/dl Magnesium 1.8 (1.8-2.4) mg/dl Total Bilirubin 0.4 (0.2-1) mg/dl AST 24 (15-37) U/L ALT 28 (12-78) U/L Alkaline Phosphatase 88 (45-117) U/L Total Protein 6.4 (6.4-8.2) gm/dl Albumin 2.4 L (3.4-5.0) gm/dl Globulin 4.0 (2.5-4.0) gm/dl Albumin/Globulin Ratio 0.6 L (0.9-2) TSH 0.881 (0.300-4.500) uIu/ml EBV Capsid Ag IgG Ab EBV Capsid Ag IgM Ab EBV Nuclear Antigen Ab EBV Antibody Interp 06/17/20 06/16/20 Range/Units 05:37 20:13 WBC 5.42 (4.8-10.8) K/uL RBC 3.33 L (4.2-5.4) M/uL Hgb 9.6 L (12.0-16.0) g/dL Hct 29.0 L (37-47) % MCV 87.1 (80-100) fL MCH 28.8 (25-34) pg MCHC 33.1 (32-36) g/dL RDW Std Deviation 46.9 H (36.4-46.3) fL RDW Coeff of Valentina 14.7 H (11.5-14.5) % Plt Count 158 (130-400) K/uL MPV 8.9 (7.4-10.4) fL Immature Gran % (Auto) 0.6 % Neut % (Auto) 72.8 % Lymph % (Auto) 8.1 % [place] % (Auto) 17.9 % Eos % (Auto) 0.4 % Baso % (Auto) 0.2 % Neut # (Auto) 3.95 (1.4-6.5) K/uL Lymph # (Auto) 0.44 L (1.2-3.4) K/uL [place] # (Auto) 0.97 H (0.11-0.59) K/uL Eos # (Auto) 0.02 (0-0.5) K/uL Baso # (Auto) 0.01 (0-0.2) K/uL Immature Gran # (Auto) 0.03 H (0.00-0.02) K/uL Sodium (136-145) mmol/L Potassium (3.5-5.1) mmol/L Chloride (98-107) mmol/L Carbon Dioxide (21-32) mmol/L Anion Gap (3-11) BUN (7-18) mg/dl Creatinine (0.6-1.2) mg/dl Est Cr Clr Drug Dosing ml/min Est GFR ( Amer) Est GFR (Non-Af Amer) BUN/Creatinine Ratio (10-20) Glucose (70-99) mg/dl POC Glucose 118 H (70-99) mg/dl Calcium (8.5-10.1) mg/dl Phosphorus (2.5-4.9) mg/dl Magnesium (1.8-2.4) mg/dl Total Bilirubin (0.2-1) mg/dl AST (15-37) U/L ALT (12-78) U/L Alkaline Phosphatase (45-117) U/L Total Protein (6.4-8.2) gm/dl Albumin (3.4-5.0) gm/dl Globulin (2.5-4.0) gm/dl Albumin/Globulin Ratio (0.9-2) TSH (0.300-4.500) uIu/ml EBV Capsid Ag IgG Ab EBV Capsid Ag IgM Ab EBV Nuclear Antigen Ab EBV Antibody Interp Diagnostic Findings IMPRESSION: 1. Question cystitis. Correlation with clinical findings and urinalysis will be required. 2. Liquid stool is noted in the colon. Correlate clinically for evidence of a diarrheal illness. 3. The [place] kidneys are surgically absent. Bilateral renal transplants are seen in the pelvis. 4. Trace pleural effusions and small pericardial effusion. 5. Trace free fluid in the pelvis is new from previous. 6. Enlarged and multicystic liver, similar in appearance to prior studies. 7. Additional findings as above. PG Care Time/CCT Total # of Minutes Spent Total Time Spent with Patient: Total time spent is greater than 50% in coordi nation of care (as documented) at patient's floor/unit and/or counseling patient: Coding Level of Care Code 59626 Subseq Hosp Care Lvl 2 Diagnoses Diarrhea R19.7 Diarrhea type: unspecified type Fever R50.9 Fever type: unspecified H/O kidney transplant Z94.0 CKD (chronic kidney disease) stage 4, GFR 15-29 ml/min N18.4 Gastritis K29.70 Gastritis type: unspecified gastritis Chronicity: unspecified Gastritis bleeding: without bleeding Diabetes mellitus E11.22; Z79.4 Diabetes mellitus type: type 2 Diabetes mellitus halfway insulin use: with terminal press operator use Diabetes mellitus complication status: with kidney complications Diabetes mellitus complication detail: with chronic kidney disease Chronic kidney disease stage: unspecified stage Hypertension I10 Hypertension type: essential hypertension Hyperlipidemia E78.5 Hyperlipidemia type: unspecified Restless legs syndrome G25.81 Gout M10.9 Gout site: unspecified site Gout etiology: unspecified cause Chronicity: unspecified Hypophosphatemia E83.39 Hypokalemia E87.6 Depression F32.9 Depression Type: unspecified Migraine G43.909 Migraine type: unspecified Status migrainosus presence: without status migrainosus Intractability: not intractable Non-celiac gluten sensitivity K90.41 DVT prophylaxis Z29.9 (1) Fever Fever type: unspecified Qualified Code(s): R50.9 - Fever, unspecified (2) Diarrhea Diarrhea type: unspecified type Qualified Code(s): R19.7 - Diarrhea, unspecified (3) Gastritis Gastritis type: unspecified gastritis Chronicity: unspecified Gastritis bleeding: without bleeding Qualified Code(s): K29.70 - Gastritis, unspecified, without bleeding (4) Diabetes mellitus Diabetes mellitus type: type 2 Diabetes mellitus halfway insulin use: with halfway use Diabetes mellitus complication status: with kidney complications Diabetes mellitus complication detail: with chronic kidney disease Chronic kidney disease stage: unspecified stage Qualified Code(s): E11.22 - Type 2 diabetes mellitus with diabetic chronic kidney disease; Z79.4 - USP (current) use of insulin (5) Hypertension Hypertension type: essential hypertension Qualified Code(s): I10 - Essential (primary) hypertension (6) Hyperlipidemia Hyperlipidemia type: unspecified Qualified Code(s): E78.5 - Hyperlipidemia, unspecified (7) Gout Gout site: unspecified site Gout etiology: unspecified cause Chronicity: unspecified Qualified Code(s): M10.9 - Gout, unspecified (8) Depression Depression Type: unspecified Qualified Code(s): F32.9 - Major depressive disorder, single episode, unspecified (9) Migraine Migraine type: unspecified Status migrainosus presence: without status migrainosus Intractability: not intractable Qualified Code(s): G43.909 - Migraine, unspecified, not intractable, without status migrainosus
[2020-06-17] MEDS ORDERED: PIPERACILLIN/TAZOBACTAM 3.375 GM in DEXTROSE 5% 100 ML IV SCH (15:00)
[2020-06-17] MEDS ORDERED: predniSONE 5 MG TAB PO ONE (17:42)
[2020-06-17] MEDS: LAVAGE SOLUTION 4000ML PO SCH (18:05)
[2020-06-17] MEDS: ACETAMINOPHEN 1,000 MG/100 ML VIAL IV PRN (19:44)
[2020-06-17] MEDS: INSULIN DETEMIR FLEXPEN/FLEX TOUCH 100 UNITS/ML 3ML SQ SCH (21:48)
[2020-06-17] MEDS: ROPINIROLE HCL 0.25 MG TABLET PO SCH (21:50)
[2020-06-17] MEDS: BUTALBITAL/ACETAMIN/CAFFEINE TAB PO PRN (23:59)
[2020-06-18] MEDS: LAVAGE SOLUTION 4000ML PO SCH (02:58)
[2020-06-18] MEDS: SODIUM CHLORIDE 0.9% 1000ML 1,000 ML IV SCH (06:04)
[2020-06-18 07:06] LABS: Eosinophils # (auto) 0.01 K/uL (0-0.5); Eosinophils % (auto) 0.2 %; Hematocrit (blood only) 29.5 % (37-47); Hemoglobin 9.8 g/dL (12.0-16.0); Immature Granulocytes # (auto) 0.01 K/uL (0.00-0.02); Immature Granulocytes % (auto) 0.2 %; Lymphocytes # (auto) 0.39 K/uL (1.2-3.4); Lymphocytes % (auto) 7.6 %; Mean Corpuscular Hemoglobin 29.1 pg (25-34); Mean Corpuscular Hgb Conc 33.2 g/dL (32-36); Mean Corpuscular Volume 87.5 fL (80-100); Mean Platelet Volume 9.4 fL (7.4-10.4); Monocytes # (auto) 0.58 K/uL (0.11-0.59); Monocytes % (auto) 11.3 %; Neutrophils # (auto) 4.14 K/uL (1.4-6.5); Neutrophils % (auto) 80.7 %; Platelet Count 214 K/uL (130-400); RDW Standard Deviation 48.5 fL (36.4-46.3); Red Blood Count 3.37 M/uL (4.2-5.4); White Blood Count 5.13 K/uL (4.8-10.8)
[2020-06-18] MEDS: PSYLLIUM 58.6% POWDER PACKET PO SCH (07:28)
[2020-06-18] MEDS: MYCOPHENOLATE SODIUM 180 MG TAB PO SCH ×2 (07:31→21:17)
[2020-06-18] MEDS: PANTOprazole 40 MG TAB PO SCH (07:31)
[2020-06-18] MEDS: predniSONE 5 MG TAB PO SCH (07:31)
[2020-06-18] MEDS: allopurinoL 300 MG TAB PO SCH (07:31)
[2020-06-18] MEDS: SIROLIMUS 0.5 MG TABLET PO SCH (07:32)
[2020-06-18] MEDS: TAMSULOSIN HCL 0.4 MG CAP PO SCH ×2 (07:32→21:15)
[2020-06-18] MEDS: carvediloL 6.25 MG TAB PO SCH ×2 (07:32→21:19)
[2020-06-18] MEDS: VENLAFAXINE HCL XR 75 MG CAPXR PO SCH (07:32)
[2020-06-18 07:38] LABS: Albumin Level 2.7 gm/dl (3.4-5.0); BUN Creatinine Ratio 8.4 (10-20); Calcium 8.8 mg/dl (8.5-10.1); Creatinine Clr Calc Pharmacy 51.8 ml/min; Est GFR (African American) 59.5; Est GFR (Non-African American) 51.3; Potassium 3.6 mmol/L (3.5-5.1)
[2020-06-18] MEDS: ACETAMINOPHEN 1,000 MG/100 ML VIAL IV PRN ×2 (07:42→21:07)
[2020-06-18] MEDS: INSULIN ASPART 100 UNITS/ML 3 ML PEN SC SCH ×4 (07:43→21:20)
[2020-06-18 07:54] LABS: Albumin Globulin Ratio 0.6 (0.9-2); Bilirubin,Total 0.4 mg/dl (0.2-1); C Reactive Protein 20.2 mg/dl (0-0.29); Globulin 4.3 gm/dl (2.5-4.0); Phosphorus 2.4 mg/dl (2.5-4.9)
--- NOTE | 2020-06-18 09:04 | Hospitalist Progress Note ---
Date of Service June 18, 2020 Assessment & Plan (1) Diarrhea: Profuse, watery diarrhea in immunocompromised host. History of c. 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 * Of note, patient also s/p RIGHT hemicolectomy with ileocolic anastomosis 2010 * Cdiff negative * ?CMV colitis or parasitic in patient on chronic immunosuppressant therapy * CT abdomen with oral contrast with liquid stool in colon, diarrheal illness. trace pleural effusions, small pericardial effusion, multicystic magali (similar to prior studies), trace free fluid in pelvis (new), duodenal diverticula noted as well * Stool studies * Gluten free diet when taking PO -- recent dx in the past year non-celiac, gluten sensitive * GI on consult -- appreciate assistance * NPO * Changed IVF to 1/2NSS @ 80cc/hr for acidosis on AM labs and likely free water deficeit. Bicarb 16, chloride 111. * Appreciate input from Nephrology * Colonoscopy today with Dr. Kirk (2) Fever: ??CMV GI involvement? Inflammatory markers elevated, EST 61, CRP 22.5 * Patient afebrile on admission but continues to remain febrile throughout most of her stay. * Tmax 39.3C overnight 06/16 --> currently 36.4C * BCx from admission NGTD, Repeat obtained and NGTD * BP 147/65 -- has been SR with PACs in the 60s today, with drop to 40-50s overnight * IVF as above * Stool studies pending, CMV, EBV * Nephrology, GI, ID consulted -- appreciate assistance * CTAP as above * No abx for now * bowel prep * NPO after midnight for colonoscopy with Dr. Kirk * Inflammatory marker remain high, ESR 69, CRP 20 (3) H/O kidney transplant: x2 * Mildly elevated BUN and Cr most likely secondary to volume depletion on admission. * Cr 1.15 on AM labs * Transplants are non-tender. * Avoid nephrotoxic agents * Continue Sirolimus and Mycophenolate * Nephrology on consult as above -- continue IV hydration as above * Repeat labs in AM (4) CKD (chronic kidney disease) stage 4, GFR 15-29 ml/min: * Mildly elevated BUN and Cr from baseline, clinically dry in setting of diarrheal losses. Follows with Dr. Roy * IVF as above * Avoid nephrotoxic agents. Renal dosing where needed * BMP in AM (5) Gastritis: * Recently diagnosed. Patient denies abdominal pain, melena or hematochezia at present * Continue Protonix 40 mg po daily (6) Diabetes mellitus: * Last RmxL5L=8.8 on 05/08/20. No repeat at this time * Hold oral agents while inpatient * Continue Levemir 9u qHS * ISS with accuchecks * BSGs acceptable * Continue to monitor (7) Hypertension: * Blood pressures labile -- currently 147/65 acceptable (did have episode of hypotension overnight and was given extra 5mg prednisone). AM Cortisol 17.95. * Carvedilol 18.75mg BID with hold parameters * Continue to monitor (8) Hyperlipidemia: * Chronic. Patient statin intolerant (9) Restless legs syndrome: * Chronic * Continue Ropinirole (10) Gout: * Chronic. Well controlled. Patient denies joint pain or inflammation at present * Continue Allopurinol (11) Hypophosphatemia: * Phos 2.4, slightly lower than normal * Will hold off on further replacement at this time and repeat in AM (12) Hypokalemia: * RESOLVED -- K 3.6 * BMP in AM given above (13) Depression: * Chronic * Continue Venlafaxine 75mg po qAM (14) Migraine: * No migraine reported today. Had received oxycodone 5mg x 1 on admission * Fioricet ordered prn -- successful resolution of migraine evevning 06/17 * Tylenol prn * Zofran prn nausea, added phenergan as above (15) Non-celiac gluten sensitivity: * Noted. Diagnosed earlier this year. Also with IgA low at 39 * Gluten free diet as tolerated following colonoscopy (16) DVT prophylaxis: * SCDs * Ambulation encouraged Dispo: Colonoscopy later today Admission and Anticipated Discharge Date Admission Date: June 16, 2020 Subjective Patient evaluated this morning. Has felt better today than in days past. Received IV tylenol yesterday and again this morning for chills that typically precede her fevers and has remained afebrile since that time. She states she actually has an appetite today, and wanted a cheeseburger last night, but unfortunately due to the prep was unable at that time but anticipating meal following scope today. Did have a slight migraine last evening and was relieved with Fioricet. Denies chest pain, shortness of breath, abdominal pain, nausea, vomiting, or dysuria at this time. Review of Systems Review of Systems: All systems reviewed & are unremarkable except as noted in HPI & below Physical Exam Constitutional: well developed, well nourished and comfortable; no acute distress Eyes: + anicteric sclerae and PERRL ENMT: mmm Neck: normal visual inspection Respiratory: normal respiratory effort and able to speak in complete sentences; no respiratory distress Auscultation: no wheezes Cardiovascular: RRR, no murmur, no edema Gastrointestinal (Abdomen): normal bowel sounds, soft, nontender, no hepatosplenomegaly Inspection/Auscultation: + abdomen distended (less today) multiple healed surgical scars Musculoskeletal: no cyanosis or clubbing, extremities motor strength 5/5 Skin: warm, moist Neurologic: PERRL, EOMI, accommodation nl, no face palsy, no dysarthria Psychiatric: Orientation: alert and oriented x 3 Lymphatic: no cervical or axillary lymphadenopathy Results & Data Results & Data ([facility]) Vital Signs (Past 12 Hours) Vital Signs Temp Pulse Pulse Resp BP BP Pulse Ox 06/18/20 07:00 36.4 C L 56 L 18 147/65 H 97 06/18/20 06:54 36.3 C L 06/18/20 03:00 36.3 C L 52 L 20 137/64 100 06/18/20 00:00 53 L 06/17/20 23:00 36.8 C 48 L 20 117/63 99 Laboratory Results 06/18/20 06/18/20 06/18/20 Range/Units 08:37 07:42 06:21 WBC (4.8-10.8) K/uL RBC (4.2-5.4) M/uL Hgb (12.0-16.0) g/dL Hct (37-47) % MCV (80-100) fL MCH (25-34) pg MCHC (32-36) g/dL RDW Std Deviation (36.4-46.3) fL RDW Coeff of Valentina (11.5-14.5) % Plt Count (130-400) K/uL MPV (7.4-10.4) fL Immature Gran % (Auto) % Neut % (Auto) % Lymph % (Auto) % [place] % (Auto) % Eos % (Auto) % Baso % (Auto) % Neut # (Auto) (1.4-6.5) K/uL Lymph # (Auto) (1.2-3.4) K/uL [place] # (Auto) (0.11-0.59) K/uL Eos # (Auto) (0-0.5) K/uL Baso # (Auto) (0-0.2) K/uL Immature Gran # (Auto) (0.00-0.02) K/uL ESR 69 H (0-21) mm/hr Sodium (136-145) mmol/L Potassium (3.5-5.1) mmol/L Chloride (98-107) mmol/L Carbon Dioxide (21-32) mmol/L Anion Gap (3-11) BUN (7-18) mg/dl Creatinine (0.6-1.2) mg/dl Est Cr Clr Drug Dosing ml/min Est GFR ( Amer) Est GFR (Non-Af Amer) BUN/Creatinine Ratio (10-20) Glucose (70-99) mg/dl POC Glucose 116 H (70-99) mg/dl Calcium (8.5-10.1) mg/dl Phosphorus (2.5-4.9) mg/dl Magnesium (1.8-2.4) mg/dl Total Bilirubin (0.2-1) mg/dl AST (15-37) U/L ALT (12-78) U/L Alkaline Phosphatase (45-117) U/L C-Reactive Protein (0-0.29) mg/dl Total Protein (6.4-8.2) gm/dl Albumin (3.4-5.0) gm/dl Globulin (2.5-4.0) gm/dl Albumin/Globulin Ratio (0.9-2) TSH (0.300-4.500) uIu/ml Cortisol AM Sample Pending EBV Capsid Ag IgG Ab EBV Capsid Ag IgM Ab EBV Nuclear Antigen Ab EBV Antibody Interp 06/18/20 06/18/20 06/17/20 Range/Units 06:21 06:21 21:16 WBC 5.13 (4.8-10.8) K/uL RBC 3.37 L (4.2-5.4) M/uL Hgb 9.8 L (12.0-16.0) g/dL Hct 29.5 L (37-47) % MCV 87.5 (80-100) fL MCH 29.1 (25-34) pg MCHC 33.2 (32-36) g/dL RDW Std Deviation 48.5 H (36.4-46.3) fL RDW Coeff of Valentina 15.0 H (11.5-14.5) % Plt Count 214 (130-400) K/uL MPV 9.4 (7.4-10.4) fL Immature Gran % (Auto) 0.2 % Neut % (Auto) 80.7 % Lymph % (Auto) 7.6 % [place] % (Auto) 11.3 % Eos % (Auto) 0.2 % Baso % (Auto) 0.0 % Neut # (Auto) 4.14 (1.4-6.5) K/uL Lymph # (Auto) 0.39 L (1.2-3.4) K/uL [place] # (Auto) 0.58 (0.11-0.59) K/uL Eos # (Auto) 0.01 (0-0.5) K/uL Baso # (Auto) 0.00 (0-0.2) K/uL Immature Gran # (Auto) 0.01 (0.00-0.02) K/uL ESR (0-21) mm/hr Sodium 140 (136-145) mmol/L Potassium 3.6 (3.5-5.1) mmol/L Chloride 114 H (98-107) mmol/L Carbon Dioxide 16 L (21-32) mmol/L Anion Gap 10.0 (3-11) BUN 10 (7-18) mg/dl Creatinine 1.15 (0.6-1.2) mg/dl Est Cr Clr Drug Dosing 51.8 ml/min Est GFR ( Amer) 59.5 Est GFR (Non-Af Amer) 51.3 BUN/Creatinine Ratio 8.4 L (10-20) Glucose 112 H (70-99) mg/dl POC Glucose 140 H (70-99) mg/dl Calcium 8.8 (8.5-10.1) mg/dl Phosphorus 2.4 L (2.5-4.9) mg/dl Magnesium 2.0 (1.8-2.4) mg/dl Total Bilirubin 0.4 (0.2-1) mg/dl AST 41 H (15-37) U/L ALT 40 (12-78) U/L Alkaline Phosphatase 100 (45-117) U/L C-Reactive Protein 20.20 H (0-0.29) mg/dl Total Protein 7.0 (6.4-8.2) gm/dl Albumin 2.7 L (3.4-5.0) gm/dl Globulin 4.3 H (2.5-4.0) gm/dl Albumin/Globulin Ratio 0.6 L (0.9-2) TSH (0.300-4.500) uIu/ml Cortisol AM Sample EBV Capsid Ag IgG Ab EBV Capsid Ag IgM Ab EBV Nuclear Antigen Ab EBV Antibody Interp 06/17/20 06/17/20 06/17/20 Range/Units 16:30 11:41 09:27 WBC (4.8-10.8) K/uL RBC (4.2-5.4) M/uL Hgb (12.0-16.0) g/dL Hct (37-47) % MCV (80-100) fL MCH (25-34) pg MCHC (32-36) g/dL RDW Std Deviation (36.4-46.3) fL RDW Coeff of Valentina (11.5-14.5) % Plt Count (130-400) K/uL MPV (7.4-10.4) fL Immature Gran % (Auto) % Neut % (Auto) % Lymph % (Auto) % [place] % (Auto) % Eos % (Auto) % Baso % (Auto) % Neut # (Auto) (1.4-6.5) K/uL Lymph # (Auto) (1.2-3.4) K/uL [place] # (Auto) (0.11-0.59) K/uL Eos # (Auto) (0-0.5) K/uL Baso # (Auto) (0-0.2) K/uL Immature Gran # (Auto) (0.00-0.02) K/uL ESR (0-21) mm/hr Sodium (136-145) mmol/L Potassium (3.5-5.1) mmol/L Chloride (98-107) mmol/L Carbon Dioxide (21-32) mmol/L Anion Gap (3-11) BUN (7-18) mg/dl Creatinine (0.6-1.2) mg/dl Est Cr Clr Drug Dosing ml/min Est GFR ( Amer) Est GFR (Non-Af Amer) BUN/Creatinine Ratio (10-20) Glucose (70-99) mg/dl POC Glucose 205 H 184 H (70-99) mg/dl Calcium (8.5-10.1) mg/dl Phosphorus (2.5-4.9) mg/dl Magnesium (1.8-2.4) mg/dl Total Bilirubin (0.2-1) mg/dl AST (15-37) U/L ALT (12-78) U/L Alkaline Phosphatase (45-117) U/L C-Reactive Protein (0-0.29) mg/dl Total Protein (6.4-8.2) gm/dl Albumin (3.4-5.0) gm/dl Globulin (2.5-4.0) gm/dl Albumin/Globulin Ratio (0.9-2) TSH (0.300-4.500) uIu/ml Cortisol AM Sample EBV Capsid Ag IgG Ab Pending EBV Capsid Ag IgM Ab Pending EBV Nuclear Antigen Ab Pending EBV Antibody Interp Pending 06/17/20 Range/Units 05:37 WBC (4.8-10.8) K/uL RBC (4.2-5.4) M/uL Hgb (12.0-16.0) g/dL Hct (37-47) % MCV (80-100) fL MCH (25-34) pg MCHC (32-36) g/dL RDW Std Deviation (36.4-46.3) fL RDW Coeff of Valentina (11.5-14.5) % Plt Count (130-400) K/uL MPV (7.4-10.4) fL Immature Gran % (Auto) % Neut % (Auto) % Lymph % (Auto) % [place] % (Auto) % Eos % (Auto) % Baso % (Auto) % Neut # (Auto) (1.4-6.5) K/uL Lymph # (Auto) (1.2-3.4) K/uL [place] # (Auto) (0.11-0.59) K/uL Eos # (Auto) (0-0.5) K/uL Baso # (Auto) (0-0.2) K/uL Immature Gran # (Auto) (0.00-0.02) K/uL ESR (0-21) mm/hr Sodium (136-145) mmol/L Potassium (3.5-5.1) mmol/L Chloride (98-107) mmol/L Carbon Dioxide (21-32) mmol/L Anion Gap (3-11) BUN (7-18) mg/dl Creatinine (0.6-1.2) mg/dl Est Cr Clr Drug Dosing ml/min Est GFR ( Amer) Est GFR (Non-Af Amer) BUN/Creatinine Ratio (10-20) Glucose (70-99) mg/dl POC Glucose (70-99) mg/dl Calcium (8.5-10.1) mg/dl Phosphorus (2.5-4.9) mg/dl Magnesium (1.8-2.4) mg/dl Total Bilirubin (0.2-1) mg/dl AST (15-37) U/L ALT (12-78) U/L Alkaline Phosphatase (45-117) U/L C-Reactive Protein (0-0.29) mg/dl Total Protein (6.4-8.2) gm/dl Albumin (3.4-5.0) gm/dl Globulin (2.5-4.0) gm/dl Albumin/Globulin Ratio (0.9-2) TSH 0.881 (0.300-4.500) uIu/ml Cortisol AM Sample EBV Capsid Ag IgG Ab EBV Capsid Ag IgM Ab EBV Nuclear Antigen Ab EBV Antibody Interp PG Care Time/CCT Total # of Minutes Spent Total Time Spent with Patient: Total time spent is greater than 50% in coordination of care (as documented) at patient's floor/unit and/or counseling patient: Coding Level of Care Code 90469 Subseq Hosp Care Lvl 2 Diagnoses Diarrhea R19.7 Diarrhea type: unspecified type Fever R50.9 Fever type: unspecified H/O kidney transplant Z94.0 CKD (chronic kidney disease) stage 4, GFR 15-29 ml/min N18.4 Gastritis K29.70 Gastritis type: unspecified gastritis Chronicity: unspecified Gastritis bleeding: without bleeding Diabetes mellitus E11.22; Z79.4 Diabetes mellitus type: type 2 Diabetes mellitus long-term insulin use: with termite helper use Diabetes mellitus complication status: with kidney complications Diabetes mellitus complication detail: with chronic kidney disease Chronic kidney disease stage: unspecified stage Hypertension I10 Hypertension type: essential hypertension Hyperlipidemia E78.5 Hyperlipidemia type: unspecified Restless legs syndrome G25.81 Gout M10.9 Gout site: unspecified site Gout etiology: unspecified cause Chronicity: unspecified Hypophosphatemia E83.39 Hypokalemia E87.6 Depression F32.9 Depression Type: unspecified Migraine G43.909 Migraine type: unspecified Status migrainosus presence: without status migrainosus Intractability: not intractable Non-celiac gluten sensitivity K90.41 DVT prophylaxis Z29.9 (1) Diarrhea Diarrhea type: unspecified type Qualified Code(s): R19.7 - Diarrhea, unspecified (2) Fever Fever type: unspecified Qualified Code(s): R50.9 - Fever, unspecified (3) Gastritis Gastritis type: unspecified gastritis Chronicity: unspecified Gastritis bleeding: without bleeding Qualified Code(s): K29.70 - Gastritis, unspecified, without bleeding (4) Diabetes mellitus Diabetes mellitus type: type 2 Diabetes mellitus termite helper insulin use: with long-term use Diabetes mellitus complication status: with kidney complications Diabetes mellitus complication detail: with chronic kidney disease Chronic kidney disease stage: unspecified stage Qualified Code(s): E11.22 - Type 2 diabetes mellitus with diabetic chronic kidney disease; Z79.4 - terminal operator (current) use of insulin (5) Hypertension Hypertension type: essential hypertension Qualified Code(s): I10 - Essential (primary) hypertension (6) Hyperlipidemia Hyperlipidemia type: unspecified Qualified Code(s): E78.5 - Hyperlipidemia, unspecified (7) Gout Gout site: unspecified site Gout etiology: unspecified cause Chronicity: unspecified Qualified Code(s): M10.9 - Gout, unspecified (8) Depression Depression Type: unspecified Qualified Code(s): F32.9 - Major depressive disorder, single episode, unspecified (9) Migraine Migraine type: unspecified Status migrainosus presence: without status migrainosus Intractability: not intractable Qualified Code(s): G43.909 - Migraine, unspecified, not intractable, without status migrainosus
[2020-06-18] MEDS: SODIUM CHLORIDE 0.45 % 1,000 ML IV SCH ×2 (09:11→23:48)
--- NOTE | 2020-06-18 09:39 | History & Physical Bridge Note ---
Date of Service June 18, 2020 History & Physical Bridge Note I have examined the patient, reviewed the History & Physical and in the interval since the performance of the History & Physical I have noted the following changes of clinical significance: no changes noted. Patient completed prep. Stool is liquid (green-tinged). She does have a CRP of 20.2. Stool studies are still pending. No new complaints. Patient has been NPO. Proceed with colonoscopy this afternoon.
[2020-06-18 10:06] LABS: EBV Virus Capsid Ag IgG Ab >750.00 U/mL
--- NOTE | 2020-06-18 10:36 | Nephrology Progress Note ---
Date of Service June 18, 2020 Assessment & Plan (1) Renal transplant recipient: Mrs. Bowling remains stable. Although she is asymptomatic today, she has had recurring fevers and recurring episodes of diarrhea. Her work-up to date does not shed light on her underlying issue. I would still think that CMV colitis is a possibility. Stool cultures showed no pathogens. She is negative for Salmonella, Shigella and Campylobacter. A norovirus is not back but I do not think her clinical picture fits that. Similarly, I do not think that her clinical picture fits Giardia. Her renal function is stable. In fact, with hydration her serum creatinine is lower than it has been for quite some time. She is currently feeling well. I would not change her current medications. Her colonoscopy is this afternoon. That and perhaps some additional pending laboratory studies might shed light on the underlying etiology of her fever and diarrhea. (2) Fever: (3) Diarrhea: Admission and Anticipated Discharge Date Admission Date: June 16, 2020 Subjective Mrs. Bowling says she is feeling quite well today. She does not have a fever this morning. She has been getting Tylenol. She denies having any abdominal pain and denies having diarrhea. She says that her appetite this morning is quite good and she is hungry. However, she is n.p.o. for a colonoscopy to be done later this afternoon. Her urine output remains good. She has no symptoms of uremia or volume overload. She has no symptoms of infection, rejection, volume overload or uremia. She has no other particular complaints. Physical Exam Physical Exam: On physical examination, Mrs. Bowling appears relatively well. She is certainly in no distress. He appears to be of about her stated age of 60. Her blood pressure this morning is 147/65 with a pulse of 56 and regular. Respiratory rate is 18 and her pulse ox is 97% on room air. Her temperature is 36.4 degrees. Her skin shows normal skin turgor. She has no rash or infiltrative skin disease. She has multiple scars on her abdomen from prior surgical procedures including a right lower quadrant scar from her current kidney transplant and a left lower quadrant scar from a prior transplant. She has other abdominal scars from prior surgeries including a ventral hernia repair done about 2 years ago. She has no palpable lymphadenopathy. Her head is normal. Eyes are grossly normal. The ocular fundi were not examined. Ears, nose, mouth and throat are unremarkable. Her oral mucous membranes are moist. Her neck is supple. There is no jugular venous distention, carotid bruit or thyromegaly. Her chest is clear to auscultation. Cardiac exam shows a regular rhythm. S1 and S2 are normal. I hear no murmur or gallop. Her abdomen shows the scars. It is nontender. Her liver is palpable just beneath the ribs on the right side. Her transplant in the lower quadrants are nontender. She has a soft bruit over the right lower quadrant transplant. Bowel sounds are normal. She has no current peripheral edema. She has some chronic skin changes on her distal lower extremities. Peripheral pulses are intact. Her neurologic exam shows no abnormalities. Results & Data ([facility]) Vital Signs (Past 12 Hours) Vital Signs Temp Pulse Pulse Resp BP BP Pulse Ox 06/18/20 07:00 36.4 C L 56 L 18 147/65 H 97 06/18/20 06:54 36.3 C L 06/18/20 03:00 36.3 C L 52 L 20 137/64 100 06/18/20 00:00 53 L 06/17/20 23:00 36.8 C 48 L 20 117/63 99 Laboratory Results Laboratory Results - last 24 hr 06/17/20 06/17/20 06/17/20 05:37 09:27 11:41 WBC RBC Hgb Hct MCV MCH MCHC RDW Std Deviation RDW Coeff of [place] Plt Count MPV Immature Gran % (Auto) Neut % (Auto) Lymph % (Auto) [place] % (Auto) Eos % (Auto) Baso % (Auto) Neut # (Auto) Lymph # (Auto) [place] # (Auto) Eos # (Auto) Baso # (Auto) Immature Gran # (Auto) ESR Sodium Potassium Chloride Carbon Dioxide Anion Gap BUN Creatinine Est Cr Clr Drug Dosing Est GFR ( Amer) Est GFR (Non-Af Amer) BUN/Creatinine Ratio Glucose POC Glucose 184 H Calcium Phosphorus Magnesium Total Bilirubin AST ALT Alkaline Phosphatase C-Reactive Protein Total Protein Albumin Globulin Albumin/Globulin Ratio TSH 0.881 Cortisol AM Sample EBV Capsid Ag IgG Ab >750.00 H EBV Capsid Ag IgM Ab <36.00 EBV Nuclear Antigen Ab 183.00 H EBV Antibody Interp SEE NOTE 06/17/20 06/17/20 06/18/20 16:30 21:16 06:21 WBC 5.13 RBC 3.37 L Hgb 9.8 L Hct 29.5 L MCV 87.5 MCH 29.1 MCHC 33.2 RDW Std Deviation 48.5 H RDW Coeff of Valentina 15.0 H Plt Count 214 MPV 9.4 Immature Gran % (Auto) 0.2 Neut % (Auto) 80.7 Lymph % (Auto) 7.6 [place] % (Auto) 11.3 Eos % (Auto) 0.2 Baso % (Auto) 0.0 Neut # (Auto) 4.14 Lymph # (Auto) 0.39 L [place] # (Auto) 0.58 Eos # (Auto) 0.01 Baso # (Auto) 0.00 Immature Gran # (Auto) 0.01 ESR Sodium Potassium Chloride Carbon Dioxide Anion Gap BUN Creatinine Est Cr Clr Drug Dosing Est GFR ( Amer) Est GFR (Non-Af Amer) BUN/Creatinine Ratio Glucose POC Glucose 205 H 140 H Calcium Phosphorus Magnesium Total Bilirubin AST ALT Alkaline Phosphatase C-Reactive Protein Total Protein Albumin Globulin Albumin/Globulin Ratio TSH Cortisol AM Sample EBV Capsid Ag IgG Ab EBV Capsid Ag IgM Ab EBV Nuclear Antigen Ab EBV Antibody Interp 06/18/20 06/18/20 06/18/20 06:21 06:21 07:42 WBC RBC Hgb Hct MCV MCH MCHC RDW Std Deviation RDW Coeff of Valentina Plt Count MPV Immature Gran % (Auto) Neut % (Auto) Lymph % (Auto) [place] % (Auto) Eos % (Auto) Baso % (Auto) Neut # (Auto) Lymph # (Auto) [place] # (Auto) Eos # (Auto) Baso # (Auto) Immature Gran # (Auto) ESR 69 H Sodium 140 Potassium 3.6 Chloride 114 H Carbon Dioxide 16 L Anion Gap 10.0 BUN 10 Creatinine 1.15 Est Cr Clr Drug Dosing 51.8 Est GFR ( Amer) 59.5 Est GFR (Non-Af Amer) 51.3 BUN/Creatinine Ratio 8.4 L Glucose 112 H POC Glucose 116 H Calcium 8.8 Phosphorus 2.4 L Magnesium 2.0 Total Bilirubin 0.4 AST 41 H ALT 40 Alkaline Phosphatase 100 C-Reactive Protein 20.20 H Total Protein 7.0 Albumin 2.7 L Globulin 4.3 H Albumin/Globulin Ratio 0.6 L TSH Cortisol AM Sample EBV Capsid Ag IgG Ab EBV Capsid Ag IgM Ab EBV Nuclear Antigen Ab EBV Antibody Interp 06/18/20 08:37 WBC RBC Hgb Hct MCV MCH MCHC RDW Std Deviation RDW Coeff of Valentina Plt Count MPV Immature Gran % (Auto) Neut % (Auto) Lymph % (Auto) [place] % (Auto) Eos % (Auto) Baso % (Auto) Neut # (Auto) Lymph # (Auto) [place] # (Auto) Eos # (Auto) Baso # (Auto) Immature Gran # (Auto) ESR Sodium Potassium Chloride Carbon Dioxide Anion Gap BUN Creatinine Est Cr Clr Drug Dosing Est GFR ( Amer) Est GFR (Non-Af Amer) BUN/Creatinine Ratio Glucose POC Glucose Calcium Phosphorus Magnesium Total Bilirubin AST ALT Alkaline Phosphatase C-Reactive Protein Total Protein Albumin Globulin Albumin/Globulin Ratio TSH Cortisol AM Sample 17.95 EBV Capsid Ag IgG Ab EBV Capsid Ag IgM Ab EBV Nuclear Antigen Ab EBV Antibody Interp PG Care Time/CCT Total # of Minutes Spent Total Time Spent with Patient: Total time spent is greater than 50% in coordination of care (as documented) at patient's floor/unit and/or counseling patient: Coding Level of Care Code 99032 Subseq Hosp Care Lvl 3 Diagnoses Renal transplant recipient Z94.0 Fever R50.9 Diarrhea R19.7 Diarrhea type: unspecified type (1) Diarrhea Diarrhea type: unspecified type Qualified Code(s): R19.7 - Diarrhea, unspecified
--- NOTE | 2020-06-18 13:48 | Anesthesiology Consultation ---
Date of Service June 18, 2020 Covid 19 negative on 06/13/20. Assessment & Plan (1) Encounter for pre-operative examination: Chart Review Chart Review: Acceptable Risk for Surgery and Patient NOT seen in Pre Admission Testing Consults Requested none History Surgery Operation Date: 06/18/20 13:45 Proposed Procedures p Colonoscopy Dr. Reagan Kirk MD Height/Weight Height: 5 ft 8 in Weight: 67 kg Allergies Allergy/AdvReac Type Severity Reaction Status Date / Time Iodinated Contrast Media Allergy Severe Hx Kidney Verified 06/15/20 19:57 Transplant Zfrvqrc-Krs-Ark Reductase Allergy Severe "PANCREATIT Verified 06/15/20 19:57 Inhibitor IS" sumatriptan Allergy Severe seizure Verified 06/15/20 19:57 hydrochlorothiazide Allergy Mild Unknown Verified 06/15/20 19:57 Sulfa (Sulfonamide Allergy Mild . Verified 06/15/20 19:57 Antibiotics) triamterene Allergy Mild Unknown Verified 06/15/20 19:57 atorvastatin Allergy Unknown ? Verified 06/15/20 19:57 doxycycline Allergy Unknown UNKNOWN Verified 06/15/20 19:57 levofloxacin Allergy Unknown joint pain Verified 06/15/20 19:57 adhesive AdvReac Unknown SKIN TEAR Verified 06/15/20 19:57 Cipro AdvReac Unknown FATIGUE Verified 01/20/18 21:00 ciprofloxacin AdvReac Unknown FATIGUE Verified 06/13/20 12:01 morphine AdvReac Unknown INEFFECTIVE Verified 06/13/20 12:01 Medications Home Medications Medication Instructions Recorded Confirmed Last Taken Levemir FlexTouch U-100 Insuln 9 units SUBCUT HS 09/01/18 06/15/20 06/12/20 allopurinol 300 mg PO TUTHSA 09/01/18 06/15/20 06/13/20 tamsulosin 0.4 mg PO BID 03/26/19 06/15/20 06/13/20 azelastine 2 spray INTRANASAL Q12H PRN 07/10/19 06/15/20 06/12/20 fluticasone propionate [Flonase 2 spray INTRANASAL DAILY PRN 07/10/19 06/15/20 06/12/20 Allergy Relief] ropinirole 0.25 mg tablet 0.25 mg PO HS #90 tab 01/27/20 06/15/20 06/12/20 carvedilol 6.25 mg tablet 18.75 mg PO BID #540 tab 03/18/20 06/15/20 06/13/20 PNV cmb#95-ferrous fumarate-FA 1 tab PO QAM 04/13/20 06/15/20 06/13/20 [] Premarin 0.625 mg PO WE 04/13/20 06/15/20 06/10/20 bmehnhazaf-kfmchfwondtfu-tkbg 1 cap PO Q6H PRN 04/13/20 06/15/20 06/08/20 [Fioricet] repaglinide 0.5 mg PO TID PRN 04/13/20 06/15/20 06/12/20 sirolimus 2 mg PO QAM 04/13/20 06/15/20 06/13/20 pantoprazole 40 mg PO QAM 05/23/20 06/15/20 06/13/20 venlafaxine 75 mg PO QAM 06/09/20 06/15/20 06/13/20 doxycycline hyclate 100 mg PO BID #28 cap 06/11/20 06/15/20 06/13/20 acetaminophen [Tylenol Extra 1,000 mg PO DIRECTED PRN 06/13/20 06/15/20 06/13/20 Strength] 1000 mg prednisone 5 mg tablet 5 mg PO QAM #90 tab 06/17/20 Unknown mycophenolate sodium 180 mg 360 mg PO BID #360 tab 06/18/20 Unknown tablet,delayed release Active Medications Generic Name Dose Route Start Last Admin Trade Name Freq PRN Reason Stop Dose Admin Acetaminophen 650 mg 06/15/20 21:15 06/17/20 06:26 Acetaminophen 325 Mg Tab PO 07/15/20 21:14 650 mg Q4H PRN Administration pain or fever Acetaminophen/Butalbital/Caffeine 1 tab 06/15/20 21:15 06/17/20 23:59 Butalbital/Acetamin/Caffeine Tab PO 07/15/20 21:14 1 tab Q6H PRN Administration Migraine Headache Allopurinol 300 mg 06/16/20 09:00 06/18/20 07:31 Allopurinol 300 Mg Tab PO 07/16/20 08:59 300 mg TUTHSA RADHA Administration Carvedilol 18.75 mg 06/15/20 21:15 06/18/20 07:32 Carvedilol 6.25 Mg Tab PO 07/15/20 21:14 18.75 mg BID RADHA Administration Promethazine HCl 12.5 mg/ 50.5 mls @ 202 mls/hr 06/16/20 17:52 06/16/20 19:14 Sodium Chloride IV 07/16/20 17:51 Infused Q6H PRN Infusion Nausea And Vomiting Acetaminophen 1,000 mg in 100 mls @ 400 mls/hr 06/17/20 13:15 06/18/20 07:58 Ofirmev IV 06/20/20 13:14 Infused Q8H PRN Infusion Fever Sodium Chloride 1,000 mls @ 80 mls/hr 06/18/20 09:00 06/18/20 09:11 1/2 Nss IV 07/18/20 08:59 80 mls/hr .[id number] RADHA Administration Insulin Aspart 0 units 06/15/20 21:15 06/18/20 12:07 Insulin Aspart 100 Units/Ml 3 Ml Pen SC 07/15/20 21:14 Not Given ACHS RADHA Insulin Detemir 9 units 06/15/20 21:15 06/17/20 21:48 Insulin Detemir Flexpen/Flex Touch 100 Units/Ml 3ml SQ 07/15/20 21:14 9 units HS RADHA Administration Mycophenolate Sodium 360 mg 06/15/20 21:15 06/18/20 07:31 Mycophenolate Sodium 180 Mg Tab PO 07/15/20 21:14 360 mg BID RADHA Administration Ondansetron HCl 4 mg 06/15/20 22:27 06/17/20 08:34 Ondansetron Inj 2 Mg/Ml 2 Ml Vial IV 07/15/20 22:26 4 mg Q6H PRN Administration Nausea Pantoprazole Sodium 40 mg 06/16/20 09:00 06/18/20 07:31 Pantoprazole 40 Mg Tab PO 07/16/20 08:59 40 mg QAM RADHA Administration Prednisone 5 mg 06/16/20 09:00 06/18/20 07:31 Prednisone 5 Mg Tab PO 07/16/20 08:59 5 mg QAM RADHA Administration Psyllium Hydrophilic Mucilloid 1 pkt 06/16/20 12:00 06/18/20 07:28 Psyllium 58.6% Powder Packet PO 07/16/20 11:59 Not Given QAM RADHA Ropinirole HCl 0.25 mg 06/15/20 21:15 06/17/20 21:50 Ropinirole Hcl 0.25 Mg Tablet PO 07/15/20 21:14 0.25 mg HS RADHA Administration Sirolimus 2 mg 06/16/20 09:00 06/18/20 07:32 Sirolimus 0.5 Mg Tablet PO 07/16/20 08:59 2 mg QAM RADHA Administration Tamsulosin HCl 0.4 mg 06/15/20 21:15 06/18/20 07:32 Tamsulosin Hcl 0.4 Mg Cap PO 07/15/20 21:14 0.4 mg BID RADHA Administration Venlafaxine HCl 75 mg 06/16/20 09:00 06/18/20 07:32 Venlafaxine Hcl Xr 75 Mg Capxr PO 07/16/20 08:59 75 mg QAM RADHA Administration Past Medical History Medical History Abdominal pain Acute gout Acute pyelonephritis Acute renal failure Allergic rhinitis due to allergen CKD (chronic kidney disease) stage 4, GFR 15-29 ml/min Clostridium difficile diarrhea Dehydration Diarrhea of presumed infectious origin Fever HTN (hypertension) Immunosuppressed status Intractable vomiting Migraine Pancreatitis Recurrent Clostridium difficile diarrhea SBO (small bowel obstruction) Sepsis Sinus congestion SIRS (systemic inflammatory response syndrome) Unspecified asthma UTI (lower urinary tract infection) (10/21/14) Past Family History Family History Other Family history non-contributory Past Surgical History Surgical History History of hernia surgery Hx of appendectomy Hx of cholecystectomy Kidney replaced by transplant x2. most recent 1 year ago Social History Smoking Status: Former smoker tobacco type: cigarettes Smoking End Date: 1983 Hx Alcohol Use: Yes Alcohol type: beer alcohol intake frequency: holidays/special occasions only Hx Substance Use: No substance use type: does not use Last Used Substance Other:: 1/2 Percocet [employer] Physical Exam Vital Signs Last Vital Signs Temp 36.5 C 06/18/20 11:00 Pulse 54 L 06/18/20 11:00 Resp 18 06/18/20 11:00 BP 125/70 06/18/20 11:00 Pulse Ox 98 06/18/20 11:00 Testing Laboratory Results 06/18/20 06:21 06/18/20 06:21 Urine Color Yellow 06/15/20 19:33 Urine Appearance Clear (Clear) 06/15/20 19:33 Urine pH 5.0 (4.5-7.5) 06/15/20 19:33 Ur Specific [place] 1.016 (1.000-1.030) 06/15/20 19:33 Urine Protein 1+ (Negative) H 06/15/20 19:33 Urine Glucose (UA) Negative (Negative) 06/15/20 19:33 Urine Ketones Negative (Negative) 06/15/20 19:33 Urine Nitrite Negative (Negative) 06/15/20 19:33 Ur Leukocyte Esterase Negative (Negative) 06/15/20 19:33 Urine WBC (Auto) 1-5 /hpf (0-5) 06/15/20 19:33 Urine RBC (Auto) 0-4 /hpf (0-4) 06/15/20 19:33 U Hyaline Cast (Auto) 1-5 /lpf (0-5) 06/15/20 19:33 U Epithel Cells (Auto) >30 /lpf (0-5) H 06/15/20 19:33 Urine Bacteria (Auto) Negative (Negative) 06/15/20 19:33 06/16/20 06:15 Escherichia coli Shiga Toxins Test - Preliminary Stool Stool Culture - Preliminary No Salmonella isolated to date, No Shigella isolated to date, No Campylobacter jejuni isolated to date. 06/17/20 09:08 Aerobic Blood Culture - Preliminary Blood No growth in Aerobic bottle after 24 hours. Anaerobic Blood Culture - Preliminary No growth in Anaerobic bottle after 24 hours. 06/17/20 09:27 Aerobic Blood Culture - Preliminary Blood No growth in Aerobic bottle after 24 hours. 06/16/20 12:06 Fungal Smear - Final Urine,Clean Catch Fungal Culture - Preliminary No yeast or fungus isolated - Report 2, Additional report to follow. 06/15/20 21:36 Aerobic Blood Culture - Preliminary Blood No growth in Aerobic bottle after 48 hours. Anaerobic Blood Culture - Preliminary No growth in Anaerobic bottle after 48 hours. 06/15/20 21:31 Aerobic Blood Culture - Preliminary Blood No growth in Aerobic bottle after 48 hours. Anaerobic Blood Culture - Preliminary No growth in Anaerobic bottle after 48 hours. 06/16/20 11:14 Fungal Smear - Final Blood 06/16/20 06:15 WBC Smear - Final Stool 06/18/20 06/18/20 11:53 07:42 POC Glucose 132 H 116 H Electrocardiogram Date: 06/13/20 Findings: + NSST changes Sinus hernesto with sinus arrhythmia, rate 54 Chest X-Ray Date: 06/16/20 TWO VIEW CHEST CLINICAL HISTORY: Wheezing. FINDINGS: PA and lateral chest radiographs are compared to study dated 06/15/2020. Calcified breast implants project over the lung bases. The cardiomediastinal silhouette is unremarkable. There is bibasilar scarring/atelectasis. Trace pleural effusions are noted on the lateral pro jection. No airspace consolidation is seen typical for pneumonia. No pneumothorax is seen. The skeletal structures are osteopenic. The bony thorax is grossly intact. IMPRESSION: Trace pleural effusions. ACT 112: Negative or not required by law. Electronically signed by: Bradley Rivas M.D. 06/16/2020 8:52 AM Dictated: 06/16/20 0851 Transcribed: 06/16/20 0851
[2020-06-18] MEDS ORDERED: LIDOCAINE HCL 2% 2 ML VIAL/AMP(20MG/ML) INFIL ONE (14:05)
[2020-06-18] MEDS ORDERED: PROPOFOL IV EMULSION 10 MG/ML 20 ML VIAL IV ONE ×2 (14:05→14:46)
--- NOTE | 2020-06-18 14:41 | GI REPORT ---
Patient Name: Tia Bowling Procedure Date: 06/18/2020 2:05 PM Date of : 1960 Admit Type: Inpatient Age: 60 Gender: Female Attending MD: Sunil Kirk MD Procedure: Colonoscopy Providers: Sunil Kirk MD Referring MD: Eugene Roy Indications: Clinically significant diarrhea of unexplained origin Medicines: Monitored Anesthesia Care Complications: No immediate complications. Estimated blood loss: None. Estimated Blood Loss: Estimated blood loss: none. Procedure: Pre-Anesthesia Assessment: - Prior Anticoagulants: The patient has taken no previous anticoagulant or antiplatelet agents. - ASA Grade Assessment: III - A patient with severe systemic disease. After I obtained informed consent, the scope was passed under direct vision. Throughout the procedure, the patient's blood pressure, pulse, and oxygen saturations were monitored continuously. The Colonoscope was introduced through the anus and advanced to the terminal ileum, with identification of the appendiceal orifice and IC valve. The colonoscopy was performed without difficulty. The patient tolerated the procedure well. The quality of the bowel preparation was fair. Findings: A 3 mm polyp was found in the rectum. The polyp was sessile. The polyp was removed with a cold snare. Resection and retrieval were complete. Estimated blood loss: none. The terminal ileum appeared normal. Biopsies were taken with a cold forceps for histology. Estimated blood loss: none. The colon (entire examined portion) appeared normal. Biopsies for histology were taken with a cold forceps from the right colon and left colon for evaluation of microscopic colitis. Estimated blood loss: none. Multiple small and large-mouthed diverticula were found in the sigmoid colon, descending colon and transverse colon. Impression: - Preparation of the colon was fair. - One 3 mm polyp in the rectum, removed with a cold snare. Resected and retrieved. - The examined portion of the ileum was normal. Biopsied. - The entire examined colon is normal. Biopsied. - Diverticulosis in the sigmoid colon, in the descending colon and in the transverse colon. Recommendation: - [facility]. - Resume previous diet today. - Await pathology results. Sunil Kirk MD 06/18/2020 2:41:24 PM This report has been signed electronically. Note Initiated On: 06/18/2020 2:05 PM Number of Addenda: 0 I attest to the content of the Intraoperative Record and orders documented therein, exceptions below {[id number]}
[2020-06-18] MEDS ORDERED: ePHEDrine sulfate 50 MG/ML SYR ONE (14:46)
--- NOTE | 2020-06-18 14:59 | Anesthesiology Progress Note ---
Date of Service June 18, 2020 Anesthesia Post Procedure Vital Signs Vital Signs: Temp Pulse Pulse Resp BP BP Pulse Ox 06/18/20 14:55 60 16 121/64 96 06/18/20 14:40 55 L 16 98/51 L 96 06/18/20 14:01 36.7 C 55 L 20 143/65 H 99 06/18/20 11:00 36.5 C 54 L 18 125/70 98 06/18/20 07:00 36.4 C L 56 L 18 147/65 H 97 06/18/20 06:54 36.3 C L 06/18/20 03:00 36.3 C L 52 L 20 137/64 100 06/18/20 00:00 53 L 06/17/20 23:00 36.8 C 48 L 20 117/63 99 06/17/20 19:20 36.7 C 57 L 16 137/65 100 06/17/20 15:17 37.0 C 57 L 22 95/54 L 100 Pain Intensity Head: Pain Intensity: 2 Transfer of Care Handoff Completed per policy Notes Mental Status: alert / awake / arousable Patient Amnestic to Procedure: Yes Nausea / Vomiting: adequately controlled Pain: adequately controlled Airway Patency, RR, SpO2: stable & adequate BP & HR: stable & adequate Hydration State: stable & adequate Anesthetic Complications: no major complications apparent and Pt Satisfied with anesthetic care
[2020-06-18] MEDS: POT PHOSPHATE MONOBASIC W/ SOD TAB PO SCH (21:15)
[2020-06-18] MEDS: INSULIN DETEMIR FLEXPEN/FLEX TOUCH 100 UNITS/ML 3ML SQ SCH (21:17)
[2020-06-18] MEDS: ROPINIROLE HCL 0.25 MG TABLET PO SCH (21:19)
[2020-06-19] MEDS: PROMETHAZINE HCL 12.5 MG in SODIUM CHLORIDE 0.9% 50 ML IV PRN ×2 (00:19→23:27)
[2020-06-19 04:21] LABS: CMV DNA PCR Qual NOT DETECTED; Source Whole Blood
[2020-06-19] MEDS: ACETAMINOPHEN 325 MG TAB PO PRN (04:28)
[2020-06-19] MEDS: ACETAMINOPHEN 1,000 MG/100 ML VIAL IV PRN (06:13)
[2020-06-19 06:32] LABS: Hematocrit (blood only) 25.4 % (37-47); Hemoglobin 8.6 g/dL (12.0-16.0); Mean Corpuscular Hgb Conc 33.9 g/dL (32-36); Mean Corpuscular Volume 85.5 fL (80-100); Mean Platelet Volume 9.1 fL (7.4-10.4); Platelet Count 200 K/uL (130-400); RDW Standard Deviation 47.7 fL (36.4-46.3); Red Blood Count 2.97 M/uL (4.2-5.4); White Blood Count 6.27 K/uL (4.8-10.8)
[2020-06-19 07:06] LABS: Albumin Level 2.2 gm/dl (3.4-5.0); BUN Creatinine Ratio 10.7 (10-20); Calcium 8.7 mg/dl (8.5-10.1); Creatinine Clr Calc Pharmacy 48.1 ml/min; Est GFR (African American) 54.3; Est GFR (Non-African American) 46.8; Potassium 3.4 mmol/L (3.5-5.1)
[2020-06-19 07:19] LABS: Albumin Globulin Ratio 0.6 (0.9-2); Bilirubin,Total 0.4 mg/dl (0.2-1); Globulin 3.7 gm/dl (2.5-4.0); Phosphorus 1.4 mg/dl (2.5-4.9); Total Protein 5.9 gm/dl (6.4-8.2)
[2020-06-19] MEDS: TAMSULOSIN HCL 0.4 MG CAP PO SCH ×2 (08:00→20:20)
[2020-06-19] MEDS: SIROLIMUS 0.5 MG TABLET PO SCH (08:00)
[2020-06-19] MEDS: POT PHOSPHATE MONOBASIC W/ SOD TAB PO SCH ×3 (08:01→17:23)
[2020-06-19] MEDS: PANTOprazole 40 MG TAB PO SCH (08:01)
[2020-06-19] MEDS: MYCOPHENOLATE SODIUM 180 MG TAB PO SCH ×2 (08:01→20:20)
[2020-06-19] MEDS: predniSONE 5 MG TAB PO SCH (08:01)
[2020-06-19] MEDS: VENLAFAXINE HCL XR 75 MG CAPXR PO SCH (08:01)
[2020-06-19] MEDS: PSYLLIUM 58.6% POWDER PACKET PO SCH (08:04)
[2020-06-19] MEDS ORDERED: POTASSIUM PHOS 3 MMOL/1 ML INFUSION IV STA (09:01)
[2020-06-19] MEDS: carvediloL 6.25 MG TAB PO SCH ×2 (09:23→20:20)
[2020-06-19] MEDS ORDERED: POTASSIUM PHOSPHATE 24 MMOL in SODIUM CHLORIDE 0.9% 500 ML IV ONE (09:30)
[2020-06-19] MEDS: INSULIN ASPART 100 UNITS/ML 3 ML PEN SC SCH ×4 (09:31→22:09)
--- NOTE | 2020-06-19 09:57 | Nephrology Progress Note ---
Date of Service June 19, 2020 Assessment & Plan (1) H/O kidney transplant: Mrs. Bowling is essentially unchanged. She continues to run intermittent significant fevers associated with chills. She continues to have diarrhea. All stool studies done so far did not shed definite light on the etiology of her diarrhea. She has had a CMV by DNA of her blood and that is negative. Cultures for routine pathogens are negative., Ova and parasites are pending as is Giardia but it does not seem as if her clinical syndrome is consistent with Giardia. Norovirus titer is pending. I am not sure that her clinical picture is consistent with that either since her symptoms tend to wax and wane. Nonetheless, we will wait for the results of her tests. Her albumin is dropped related to her diarrhea and poor intake of protein. As a result, she is retaining some fluid. However, her renal function remains at its baseline. Recommendations: Maintain her hydration status and treat symptomatically. Await for the results of her pathology and cultures to see if that will shed light on the etiology of her current issue. I will bring the transplant department at [facility] up-to-date with regard to her current issues. It may be that they would prefer to see her there to help with her diagnostic evaluation. I will continue to follow her with you. (2) Fever: (3) Diarrhea: (4) Anemia: Admission and Anticipated Discharge Date Admission Date: June 16, 2020 Subjective Mrs. Bowling says she is feeling considerably worse this morning. She did have her colonoscopy done yesterday. Apparently, the visualized portion of the colon into the terminal ileum all appeared normal other than significant diverticulosis. She did have a small polyp removed. That was an incidental finding. Biopsies were done on the left and right side of the colon. She had no significant blood loss. However, she continues to have some diarrhea particularly when she eats any solid or semisolid food. That is associated with some mild crampy abdominal pain. Overnight, she once again developed shaking chills and had a fever to 39 5. Other specific symptoms with that. She has no symptoms of uremia and no symptoms of volume overload other than feeling generally puffy as a result of getting IV fluids. Physical Exam Physical Exam: On physical examination, Mrs. Bowling appears about the same but does appear to be a bit depressed with her current situation. Her vital signs this morning show a temperature of 37.3 C. Her blood pressure is 98/50 with a pulse of 72 and regular. Her respiratory rate is 18 and her pulse ox 97% on room air. Her skin shows normal skin turgor. She has no obvious rash. She has multiple scars on her abdomen from surgical procedures including a right lower quadrant scar from her current kidney transplant in the left lower quadrant scar from her prior transplant. Other scars are related to abdominal surgery and the repair of a ventral hernia. She has no palpable lymphadenopathy. Her head is normal. Eyes are grossly normal. There is no conjunctival icterus. The ocular fundi were not examined. Ears, nose, mouth and throat are all unremarkable. Her oral mucous membranes are moist. Her neck is supple. She has no jugular venous distention, carotid bruit or thyromegaly. Her chest is clear to auscultation. She has no wheezes, rales or rhonchi. Cardiac exam shows a regular rhythm. S1 and S2 were normal. I hear no murmur or gallop. Her abdomen shows the scars noted above. It is minimally tender to deep palpation and palpation gives her a slight urge to defecate. Her abdomen is somewhat doughy and there is a questionable fluid wave present. Her liver is barely palpable below the right costal margin. I cannot feel a spleen. Her transplants are palpable in the lower quadrants. There is a soft bruit over the right lower quadrant transplant. Extremities show no cyanosis or clubbing. She has trace lower extremity edema. She has some chronic skin changes on her distal lower extremities. Peripheral pulses are intact. She has no lateralizing neurologic changes. Results & Data ([facility]) Vital Signs (Past 12 Hours) Vital Signs Temp Pulse Pulse Resp BP Pulse Ox 06/19/20 07:31 37.3 C 72 18 98/50 L 97 06/19/20 07:14 84 06/19/20 04:32 39.5 C H 06/19/20 04:00 102 H 20 144/71 H 97 06/19/20 01:04 86 06/18/20 23:00 37.2 C 58 L 20 135/55 L 99 Laboratory Results Laboratory Results - last 24 hr 06/16/20 06/17/20 06/18/20 11:14 09:27 11:53 WBC RBC Hgb Hct MCV MCH MCHC RDW Std Deviation RDW Coeff of Valentina Plt Count MPV Sodium Potassium Chloride Carbon Dioxide Anion Gap BUN Creatinine Est Cr Clr Drug Dosing Est GFR ( Amer) Est GFR (Non-Af Amer) BUN/Creatinine Ratio Glucose POC Glucose 132 H Calcium Phosphorus Total Bilirubin AST ALT Alkaline Phosphatase Total Protein Albumin Globulin Albumin/Globulin Ratio CMV DNA Qual PCR NOT DETECTED EBV Capsid Ag IgG Ab >750.00 H EBV Capsid Ag IgM Ab <36.00 EBV Nuclear Antigen Ab 183.00 H EBV Antibody Interp SEE NOTE Ref Lab Test Source Whole Blood 06/18/20 06/18/20 06/19/20 16:51 20:32 06:08 WBC 6.27 RBC 2.97 L Hgb 8.6 L Hct 25.4 L MCV 85.5 MCH 29.0 MCHC 33.9 RDW Std Deviation 47.7 H RDW Coeff of Valentina 15.0 H Plt Count 200 MPV 9.1 Sodium Potassium Chloride Carbon Dioxide Anion Gap BUN Creatinine Est Cr Clr Drug Dosing Est GFR ( Amer) Est GFR (Non-Af Amer) BUN/Creatinine Ratio Glucose POC Glucose 121 H 141 H Calcium Phosphorus Total Bilirubin AST ALT Alkaline Phosphatase Total Protein Albumin Globulin Albumin/Globulin Ratio CMV DNA Qual PCR EBV Capsid Ag IgG Ab EBV Capsid Ag IgM Ab EBV Nuclear Antigen Ab EBV Antibody Interp Ref Lab Test Source 06/19/20 06/19/20 06:08 07:55 WBC RBC Hgb Hct MCV MCH MCHC RDW Std Deviation RDW Coeff of Valentina Plt Count MPV Sodium 140 Potassium 3.4 L Chloride 113 H Carbon Dioxide 15 L Anion Gap 11.0 BUN 13 Creatinine 1.24 H Est Cr Clr Drug Dosing 48.1 Est GFR ( Amer) 54.3 Est GFR (Non-Af Amer) 46.8 BUN/Creatinine Ratio 10.7 Glucose 97 POC Glucose 102 H Calcium 8.7 Phosphorus 1.4 L* D Total Bilirubin 0.4 AST 43 H ALT 44 Alkaline Phosphatase 89 Total Protein 5.9 L Albumin 2.2 L Globulin 3.7 Albumin/Globulin Ratio 0.6 L CMV DNA Qual PCR EBV Capsid Ag IgG Ab EBV Capsid Ag IgM Ab EBV Nuclear Antigen Ab EBV Antibody Interp Ref Lab Test Source PG Care Time/CCT Total # of Minutes Spent Total Time Spent with Patient: Total time spent is greater than 50% in coordination of care (as documented) at patient's floor/unit and/or counseling patient: Coding Level of Care Code 55480 Subseq Hosp Care Lvl 3 Diagnoses H/O kidney transplant Z94.0 Fever R50.9 Fever type: unspecified Diarrhea R19.7 Diarrhea type: unspecified type Anemia D64.9 (1) Fever Fever type: unspecified Qualified Code(s): R50.9 - Fever, unspecified (2) Diarrhea Diarrhea type: unspecified type Qualified Code(s): R19.7 - Diarrhea, unspecified
[2020-06-19] MEDS: SODIUM CHLORIDE 0.45 % 1,000 ML IV SCH (11:32)
[2020-06-19] MEDS: VALACYCLOVIR HCL 500 MG TABLET PO SCH ×2 (12:40→22:10)
[2020-06-19] MEDS ORDERED: TRAZODONE HCL 50 MG TAB PO PRN (13:27)
[2020-06-19] MEDS ORDERED: LOPERAMIDE HCL 2 MG CAP PO STA (13:27)
[2020-06-19 13:39] LABS: CMV IgG Antibody >10.00 U/mL; CMV IgM Antibody <30.00 AU/mL
--- NOTE | 2020-06-19 13:54 | Hospitalist Progress Note ---
Date of Service June 19, 2020 Assessment & Plan (1) Diarrhea: Profuse, watery diarrhea in immunocompromised host s/p bilateral renal transplant, follows with [facility]. Patient also s/p RIGHT hemicolectomy with ileocolic anastomosis 2010 secondary to SBO. History of c. 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 * Cdiff negative * CT abdomen with oral contrast with liquid stool in colon, diarrheal illness. trace pleural effusions, small pericardial effusion, multicystic liver (similar to prior studies), trace free fluid in pelvis (new), duodenal diverticula noted as well * ?CMV colitis or parasitic in patient on chronic immunosuppressant therapy * Blood studies for CMV with IgM negative, IgG >10 although DNA PCR negative. Does not exclude from GI tract however Infectious disease on consult -- rec broad spectrum such as Zosyn if clinical picture deteriorates GI consulted * s/p Colonoscopy 06/[address] Kirk which showed 3mm sessile polyp in rectum (of note, no polyps noted 2 months ago), removed with cold snare. Ileum normal, entire colon examined normal and biopsied. Diverticulosis in the sigmoid colon, descending and transverse colon. * Follow pathology Resumed diet evening 06/18 and patient with significant diarrhea following roast beef/carrots and has been only taking in minimal fluids today * Stool studies unrevealing so far, follow others * ATN secondary to dehydration/diarrheal losses * IVF rate increased to 100cc/hr for fever/increased diarrhea. Changed to D5W 1/2NSS as she has not been eating in several days and has non-anion gap metabolic acidosis likely secondary. Chloride 113, Bicarb down to 15. * Nephrology on consult, appreciate assistance --> discussed case with her transplant center at [place] who recommend initiating Acyclovir empirically at this time * Added Imodium as cdiff/ecoli/shigella/salmonella/c.jejuni negative to see if we are able to slow her diarrhea down some Continue to monitor and replace electrolytes as needed --> got 24mmol Kphos for K3.4 and phos low at 1.4 (2) Fever: Waxing and waning nature --> afebrile from morning 06/17 up until 4am 06/19 with temp of 39.5C. ?CMV GI involvement. In transplant patient, would have expected issues in first 40 days, pt well outside that window * Inflammatory markers elevated, EST 61, CRP 22.5 * Urine negative * CXR with trace pleural effusions, no acute infectious process * CTAP as above * BCx's have been negative thus far. No need for repeat at this time. * Nephrology, Infectious Disease, GI on consult --> Per discussion with nephrology, will initiate valacyclovir renally dosed 1,000mg BID 06/19 * Continue supportive care at this time -- IVF, Tylenol, antiemetics * Holding off on abx at this time * Continue to follow pending studies: --> cryptosporidium, anaplasmosis PCR ?Consider Chest CT * Continue to monitor (3) H/O kidney transplant: x2 at [place]. Follows locally with Dr. Roy. * Cr 1.24 -- slightly worse than yesterday but significantly less than baseline * Transplants are non-tender. * Avoid nephrotoxic agents * Continue Sirolimus and Mycophenolate * Nephrology on consult as above -- continue IV hydration, added Valacyclovir as above (4) CKD (chronic kidney disease) stage 4, GFR 15-29 ml/min: * Follows with Dr. Roy * IVF as above. Avoid nephrotoxic agents. Renal dosing where needed * Cr stable * BMP in AM (5) Gastritis: * Recently diagnosed on EGD earlier this year * Continue Protonix 40 mg po daily (6) Diabetes mellitus: * Last [id number]=3.8 on 05/08/20. No repeat at this time * Hold oral agents while inpatient * Continue Levemir 9u qHS * ISS with accuchecks * BSGs acceptable * Continue to monitor (7) Hypertension: * Blood pressures labile -- currently 114/58 * Carvedilol 18.75mg BID with hold parameters * Continue to monitor (8) Hyperlipidemia: * Chronic. Patient statin intolerant (9) Restless legs syndrome: * Chronic * Continue Ropinirole (10) Gout: * Chronic. Well controlled. Patient denies joint pain or inflammation at present * Continue Allopurinol (11) Hypophosphatemia: * Phos 1.4 -- ordered 24mmol Kphos IV today as K 3.4 * Repeat labs in AM (12) Hypokalemia: * K 3.4 -- secondary to diarrhea. Kphos as above * BMP in AM given above (13) Depression: * Chronic * Continue Venlafaxine 75mg po qAM (14) Migraine: * No migraine reported today. Had received oxycodone 5mg x 1 on admission * Fioricet ordered prn -- successful resolution of migraine evening 06/17 * Tylenol IV prn * Zofran, phenergan prn (15) Non-celiac gluten sensitivity: * Noted. Diagnosed earlier this year. Also with IgA low at 39 * Gluten free diet as tolerated following colonoscopy (16) ATN (acute tubular necrosis): * Secondary to diarrhea/dehydration. Patient with non-anion gap metabolic acidosis * IVF as above * Nephrology on consult (17) Metabolic acidosis: * As above (18) Insomnia: * trazodone HS prn for tonight (19) DVT prophylaxis: * SCDs * Ambulation encouraged Dispo: prolonged inpatient stay Admission and Anticipated Discharge Date Admission Date: June 16, 2020 Supervising Physician Co-Signing Physician Notes Patient was seen and examined independently I discussed the case with Madalyn Serra PAC I reviewed pertinent past medical social family history and also the plan of care and agree with the plan of care. Pt with persistent diarrhea and non anion gap acidosis, c diff is negative, could be viral given immunosuppressed state id consult recommends broad spectrum antibiotics, did have colonoscopy as such will apply small amounts of antidiarrheal Any exceptions will be noted below Subjective Patient evaluated this morning. States she had a bit of a rough night after eating roast beef and carrots and then proceeded to have significant diarrhea, consistent with prior. She then developed chills and then a temperature 39.3C. Treated with IV Tylenol and temp down to 36.8C. States she is just feeling run down today. No any specific complaints, but moreso frustration with repeated lab draws and no definitive testing. Discussed that I spoke with Dr. Roy who reached out to transplant team at [place] and they are recommending starting Valacyclovir empirically as we await other testing to result. Of note regarding polyp found on colonoscopy, patient states she was a little surprised by this information as she had a colonoscopy approximately 2 months ago that did not have any evidence of polyps at that time. Denies chest pain, shortness of breath, abdominal pain. Nausea has been better controlled on the Phenergan despite good results in the past with Zofran but no longer effective. She has been drinking fluids since last night but has avoided any further food as this seems to bring on her diarrhea. Did not get much sleep last night and agreeable to add trazodone prn to see if she is able to get some rest tonight. She cannot take benadryl due to medication interactions and she did not have good success with melatonin in the past. She states has not had a shower in three days and would greatly appreciate if she was able to shower at this time. Discussed that I will notify nursing of ability to be off monitor temporarily to do so. Continuing with supportive care at this time. Agreeable to current plan. Questions/concerns addressed. Review of Systems Review of Systems: All systems reviewed & are unremarkable except as noted in HPI & below Physical Exam Constitutional: well developed, + ill appearing and comfortable; no acute distress Eyes: + anicteric sclerae and PERRL ENMT: external ear and nose normal, oropharynx normal Neck: normal visual inspection Respiratory: normal respiratory effort and able to speak in complete sentences; no respiratory distress Auscultation: no wheezes Cardiovascular: RRR, no murmur, no edema Gastrointestinal (Abdomen): Inspection/Auscultation: + abdomen distended (much less today) and normal bowel sounds Percussion/Palpation: abdomen soft; abdomen nontender multiple abdominal scars from previous surgeries noted Musculoskeletal: no cyanosis or clubbing, extremities motor strength 5/5 Skin: warm, dry Neurologic: PERRL, EOMI, accommodation nl, no face palsy, no dysarthria Psychiatric: A+Ox3, euthymic affect Orientation: alert and oriented x 3 Lymphatic: no cervical or axillary lymphadenopathy Results & Data Results & Data ([facility]) Vital Signs (Past 12 Hours) Vital Signs Temp Pulse Pulse Resp BP Pulse Ox 06/19/20 11:15 36.8 C 51 L 20 105/63 98 06/19/20 07:31 37.3 C 72 18 98/50 L 97 06/19/20 07:14 84 06/19/20 04:32 39.5 C H 06/19/20 04:00 102 H 20 144/71 H 97 Laboratory Results 06/19/20 06/19/20 06/19/20 Range/Units 11:24 07:55 06:08 WBC (4.8-10.8) K/uL RBC (4.2-5.4) M/uL Hgb (12.0-16.0) g/dL Hct (37-47) % MCV (80-100) fL MCH (25-34) pg MCHC (32-36) g/dL RDW Std Deviation (36.4-46.3) fL RDW Coeff of Valentina (11.5-14.5) % Plt Count (130-400) K/uL MPV (7.4-10.4) fL Sodium 140 (136-145) mmol/L Potassium 3.4 L (3.5-5.1) mmol/L Chloride 113 H (98-107) mmol/L Carbon Dioxide 15 L (21-32) mmol/L Anion Gap 11.0 (3-11) BUN 13 (7-18) mg/dl Creatinine 1.24 H (0.6-1.2) mg/dl Est Cr Clr Drug Dosing 48.1 ml/min Est GFR ( Amer) 54.3 Est GFR (Non-Af Amer) 46.8 BUN/Creatinine Ratio 10.7 (10-20) Glucose 97 (70-99) mg/dl POC Glucose 102 H 102 H (70-99) mg/dl Calcium 8.7 (8.5-10.1) mg/dl Phosphorus 1.4 L* D (2.5-4.9) mg/dl Total Bilirubin 0.4 (0.2-1) mg/dl AST 43 H (15-37) U/L ALT 44 (12-78) U/L Alkaline Phosphatase 89 (45-117) U/L Total Protein 5.9 L (6.4-8.2) gm/dl Albumin 2.2 L (3.4-5.0) gm/dl Globulin 3.7 (2.5-4.0) gm/dl Albumin/Globulin Ratio 0.6 L (0.9-2) CMV IgM Ab AU/mL CMV DNA Qual PCR CMV IgG Ab/TORCH U/mL Ref Lab Test Source 06/19/20 06/18/20 06/18/20 Range/Units 06:08 20:32 16:51 WBC 6.27 (4.8-10.8) K/uL RBC 2.97 L (4.2-5.4) M/uL Hgb 8.6 L (12.0-16.0) g/dL Hct 25.4 L (37-47) % MCV 85.5 (80-100) fL MCH 29.0 (25-34) pg MCHC 33.9 (32-36) g/dL RDW Std Deviation 47.7 H (36.4-46.3) fL RDW Coeff of Valentina 15.0 H (11.5-14.5) % Plt Count 200 (130-400) K/uL MPV 9.1 (7.4-10.4) fL Sodium (136-145) mmol/L Potassium (3.5-5.1) mmol/L Chloride (98-107) mmol/L Carbon Dioxide (21-32) mmol/L Anion Gap (3-11) BUN (7-18) mg/dl Creatinine (0.6-1.2) mg/dl Est Cr Clr Drug Dosing ml/min Est GFR ( Amer) Est GFR (Non-Af Amer) BUN/Creatinine Ratio (10-20) Glucose (70-99) mg/dl POC Glucose 141 H 121 H (70-99) mg/dl Calcium (8.5-10.1) mg/dl Phosphorus (2.5-4.9) mg/dl Total Bilirubin (0.2-1) mg/dl AST (15-37) U/L ALT (12-78) U/L Alkaline Phosphatase (45-117) U/L Total Protein (6.4-8.2) gm/dl Albumin (3.4-5.0) gm/dl Globulin (2.5-4.0) gm/dl Albumin/Globulin Ratio (0.9-2) CMV IgM Ab AU/mL CMV DNA Qual PCR CMV IgG Ab/TORCH U/mL Ref Lab Test Source 06/16/20 06/16/20 Range/Units 11:14 11:14 WBC (4.8-10.8) K/uL RBC (4.2-5.4) M/uL Hgb (12.0-16.0) g/dL Hct (37-47) % MCV (80-100) fL MCH (25-34) pg MCHC (32-36) g/dL RDW Std Deviation (36.4-46.3) fL RDW Coeff of Valentina (11.5-14.5) % Plt Count (130-400) K/uL MPV (7.4-10.4) fL Sodium (136-145) mmol/L Potassium (3.5-5.1) mmol/L Chloride (98-107) mmol/L Carbon Dioxide (21-32) mmol/L Anion Gap (3-11) BUN (7-18) mg/dl Creatinine (0.6-1.2) mg/dl Est Cr Clr Drug Dosing ml/min Est GFR ( Amer) Est GFR (Non-Af Amer) BUN/Creatinine Ratio (10-20) Glucose (70-99) mg/dl POC Glucose (70-99) mg/dl Calcium (8.5-10.1) mg/dl Phosphorus (2.5-4.9) mg/dl Total Bilirubin (0.2-1) mg/dl AST (15-37) U/L ALT (12-78) U/L Alkaline Phosphatase (45-117) U/L Total Protein (6.4-8.2) gm/dl Albumin (3.4-5.0) gm/dl Globulin (2.5-4.0) gm/dl Albumin/Globulin Ratio (0.9-2) CMV IgM Ab <30.00 AU/mL CMV DNA Qual PCR NOT DETECTED CMV IgG Ab/TORCH >10.00 H U/mL Ref Lab Test Source Whole Blood PG Care Time/CCT Total # of Minutes Spent Total Time Spent with Patient: Total time spent is greater than 50% in coordination of care (as documented) at patient's floor/unit and/or counseling patient: Coding Level of Care Code 14113 Subseq Hosp Care Lvl 3 Diagnoses Diarrhea R19.7 Diarrhea type: unspecified type Fever R50.9 Fever type: unspecified H/O kidney transplant Z94.0 CKD (chronic kidney disease) stage 4, GFR 15-29 ml/min N18.4 Gastritis K29.70 Chronicity: unspecified Gastritis bleeding: without bleeding Gastritis type: unspecified gastritis Diabetes mellitus E11.22; Z79.4 Chronic kidney disease stage: unspecified stage Diabetes mellitus complication detail: with chronic kidney disease Diabetes mellitus complication status: with kidney complications Diabetes mellitus usp insulin use: with usp use Diabetes mellitus type: type 2 Hypertension I10 Hypertension type: essential hypertension Hyperlipidemia E78.5 Hyperlipidemia type: unspecified Restless legs syndrome G25.81 Gout M10.9 Chronicity: unspecified Gout etiology: unspecified cause Gout site: unspecified site Hypophosphatemia E83.39 Hypokalemia E87.6 Depression F32.9 Depression Type: unspecified Migraine G43.909 Intractability: not intractable Migraine type: unspecified Status migrainosus presence: without status migrainosus Non-celiac gluten sensitivity K90.41 ATN (acute tubular necrosis) N17.0 Metabolic acidosis E87.2 Insomnia G47.00 DVT prophylaxis Z29.9 (1) Fever Fever type: unspecified Qualified Code(s): R50.9 - Fever, unspecified (2) Diabetes mellitus Chronic kidney disease stage: unspecified stage Diabetes mellitus complication detail: with chronic kidney disease Diabetes mellitus complication status: with kidney complications 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 Diabetes mellitus type: type 2 Qualified Code(s): E11.22 - Type 2 diabetes mellitus with diabetic chronic kidney disease; Z79.4 - half-way (current) use of insulin (3) Gout Chronicity: unspecified Gout etiology: unspecified cause Gout site: unspecified site Qualified Code(s): M10.9 - Gout, unspecified (4) Depression Depression Type: unspecified Qualified Code(s): F32.9 - Major depressive disorder, single episode, unspecified (5) Diarrhea Diarrhea type: unspecified type Qualified Code(s): R19.7 - Diarrhea, unspecified (6) Gastritis Chronicity: unspecified Gastritis bleeding: without bleeding Gastritis type: unspecified gastritis Qualified Code(s): K29.70 - Gastritis, unspecified, without bleeding (7) Migraine Intractability: not intractable Migraine type: unspecified Status migrainosus presence: without status migrainosus Qualified Code(s): G43.909 - Migraine, unspecified, not intractable, without status migrainosus (8) Hyperlipidemia Hyperlipidemia type: unspecified Qualified Code(s): E78.5 - Hyperlipidemia, unspecified (9) Hypertension Hypertension type: essential hypertension Qualified Code(s): I10 - Essential (primary) hypertension
[2020-06-19] MEDS: D5W AND 1/2NSS 1,000 ML IV SCH ×2 (15:04→23:27)
[2020-06-19] MEDS ORDERED: LOPERAMIDE HCL 2 MG CAP PO PRN (19:00)
[2020-06-19] MEDS: ROPINIROLE HCL 0.25 MG TABLET PO SCH (20:19)
[2020-06-19] MEDS: INSULIN DETEMIR FLEXPEN/FLEX TOUCH 100 UNITS/ML 3ML SQ SCH (22:09)
[2020-06-20] MEDS: ACETAMINOPHEN 325 MG TAB PO PRN ×2 (03:24→19:29)
[2020-06-20] MEDS: ACETAMINOPHEN 1,000 MG/100 ML VIAL IV PRN (04:45)
[2020-06-20 06:36] LABS: Hematocrit (blood only) 25.6 % (37-47); Hemoglobin 8.5 g/dL (12.0-16.0); Mean Corpuscular Hemoglobin 28.5 pg (25-34); Mean Corpuscular Hgb Conc 33.2 g/dL (32-36); Mean Corpuscular Volume 85.9 fL (80-100); Mean Platelet Volume 9.5 fL (7.4-10.4); Platelet Count 223 K/uL (130-400); RDW Coefficient of Variation 15.1 % (11.5-14.5); RDW Standard Deviation 48.1 fL (36.4-46.3); Red Blood Count 2.98 M/uL (4.2-5.4); White Blood Count 4.26 K/uL (4.8-10.8)
[2020-06-20 07:12] LABS: BUN Creatinine Ratio 7.1 (10-20); Creatinine Clr Calc Pharmacy 56.2 ml/min; Est GFR (African American) 65.6; Est GFR (Non-African American) 56.6; Phosphorus 2.9 mg/dl (2.5-4.9); Potassium 3.6 mmol/L (3.5-5.1)
[2020-06-20] MEDS: INSULIN ASPART 100 UNITS/ML 3 ML PEN SC SCH ×4 (08:12→20:40)
[2020-06-20] MEDS: MYCOPHENOLATE SODIUM 180 MG TAB PO SCH ×2 (08:15→20:51)
[2020-06-20] MEDS: VENLAFAXINE HCL XR 75 MG CAPXR PO SCH (08:16)
[2020-06-20] MEDS: SIROLIMUS 0.5 MG TABLET PO SCH (08:16)
[2020-06-20] MEDS: PANTOprazole 40 MG TAB PO SCH (08:16)
[2020-06-20] MEDS: predniSONE 5 MG TAB PO SCH (08:16)
[2020-06-20] MEDS: TAMSULOSIN HCL 0.4 MG CAP PO SCH ×2 (08:16→20:51)
[2020-06-20] MEDS: VALACYCLOVIR HCL 500 MG TABLET PO SCH ×2 (08:16→20:52)
[2020-06-20] MEDS: PSYLLIUM 58.6% POWDER PACKET PO SCH (08:17)
[2020-06-20] MEDS: allopurinoL 300 MG TAB PO SCH (08:18)
--- NOTE | 2020-06-20 08:26 | Hospitalist Progress Note ---
Date of Service June 20, 2020 Assessment & Plan (1) Diarrhea: Profuse, watery diarrhea in immunocompromised host s/p bilateral renal transplant, follows with [facility]. Patient also s/p RIGHT hemicolectomy with ileocolic anastomosis 2010 secondary to SBO * CT abdomen with oral contrast with liquid stool in colon, diarrheal illness. 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 Kirk which showed 3mm sessile polyp in rectum (of note, no polyps noted 2 months ago), removed with cold snare. Ileum normal, entire colon examined normal and biopsied. Diverticulosis in the sigmo id colon, descending and transverse colon. * Pathology no suggestive of CMV colitis * Valacyclovir empirically on 06/19 after discussion with [facility] with patient reportedly feeling better --> will continue * Nephrology on consult * IVF changed to D5W 1/2NSS as she has not been eating in several days and has non-anion gap metabolic acidosis likely secondary on 06/19. No rec for bicarb from neph * --> given worsening acidemia (bbicarb down to 15), will add 75meq bicarb to IVF and monitor labs in AM. Patient likely with acidemia secondary to diarrheal losses. Aim bicarb >20 * Given Imodium 4mg yesterday, and will schedule 2mg dosing for today to help slow diarrhea * Legionella urine if able to produce non-contaminated sample. Will also add sputum cx * Continue supportive treatment (2) Fever: Waxing and waning nature --> afebrile from morning 06/17 up until 4am 06/19 with temp of 39.5C. 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 --> likely some atelectasis and encouraged IS * ESR, CRP elevated * CTAP as above * CXR with pleural effusions, no acute infectious process * CT Chest w/o with small L>R pleural effusions (mildly increased in size from 06/16), mild dependent bibasilar atelectasis, pleural-parenchymal scarrin L lung base with mild associated traction bronchiectasis of posterior basal segment left lower lobe, no adenopathy or airspace consolidation typical for pneumonia, multicystic liver * Will add sputum culture, legionella as above * BCx NGTD * Nephrology, ID, GI on consult as above * Tylenol IV prn * Valacyclovir renally dosed 1,000mg BID 06/19, continue * Continue to follow pending studies: --> cryptosporidium, anaplasmosis PCR * Continue supportive care as above (3) CKD (chronic kidney disease) stage 4, GFR 15-29 ml/min: * Cr 1.06, significantly less than most recent appearing baseline. Follows locally with Dr. Roy. * Avoid nephrotoxic agents * Nephrology on consult as above -- continue IV hydration, Valacyclovir as above * Follow labs (4) H/O kidney transplant: x2 at [facility]. Follows locally with Dr. Roy. * Continue Sirolimus and Mycophenolate for transplant. * Stable. See above under CKD (5) Gastritis: * Recently diagnosed on EGD earlier this year * Continue Protonix 40 mg po daily (6) Diabetes mellitus: * Last NcgA0M=7.8 on 05/08/20. No repeat at this time * Hold oral agents while inpatient * Continue Levemir 9u qHS * ISS with accuchecks * BSGs acceptable * Continue to monitor (7) Hypertension: * Blood pressures labile -- currently 135/69 * Carvedilol 18.75mg BID * Continue to monitor (8) Hyperlipidemia: * Chronic. Patient statin intolerant (9) Restless legs syndrome: * Chronic * Continue Ropinirole (10) Gout: * Chronic. Well controlled. Patient denies joint pain or inflammation at present * Continue Allopurinol (11) Hypophosphatemia: * Phos 1.4 -- ordered 24mmol Kphos IV as well as oral QID x 4 doses * RESOLVED - Phos improved to 2.9 on AM labs (12) Hypokalemia: * -- secondary to diarrhea. Kphos as above * Resolved -- K 3.6 * BMP in AM given above (13) Depression: * Chronic * Continue Venlafaxine 75mg po qAM (14) Migraine: * No migraine reported today. Had received oxycodone 5mg x 1 on admission * Fioricet ordered prn -- successful resolution of migraine evening 06/17 * Tylenol IV prn * Zofran, phenergan prn (15) Non-celiac gluten sensitivity: * Noted. Diagnosed earlier this year. Also with IgA low at 39 * Gluten free diet as tolerated following colonoscopy (16) ATN (acute tubular necrosis): * Secondary to diarrhea/dehydration. Patient with non-anion gap metabolic acidosis * IVF as above * Nephrology on consult (17) Metabolic acidosis: * As above -- non-anion gap. * worsened today with bicarb 15. Added to IVF. Continue to monitor (18) Insomnia: * trazodone HS prn for tonight (19) DVT prophylaxis: * SCDs * Ambulation encouraged Dispo: prolonged inpatient stay Admission and Anticipated Discharge Date Admission Date: June 16, 2020 Subjective Patient evaluated this afternoon. Feeling better than yesterday but still worn out. Feels antiviral may be the reason she is feeling better and agreeable to continue. Diarrhea still persists, frequent in nature, and is reported as clear in color. No hematochezia or melena. She does note that when going to her sister's cabin, there was a significant amount of goldenrod and she felt stuffy initially but that went away afterwards. She states she did initially have sputum production, yellow in color, but then was clear subsequently. She states she thought initially that she may develop a subsequent sinus infection, as she fell last year and have broken facial bones with a blocked sinus tract that needed opened up and developed a sinus infection at that time. She states she did spend the night in the cabin but only for one night as they were in the process of cleaning and there was a significant amount of mold present and she decided given her health history that it would be prudent to not stay any longer. She states she has been using the incentive spirometer frequently. We discussed atelectasis can cause low grade fevers and to please continue this intervention. No further reported nausea, migraine, sore throat, vomiting at this time. No chest pain, shortness of breath, abdominal pain (although does still have some bloating). Did attempt some more oral intake today but continued diarrhea following. Discussed changing Imodium to scheduled to see if we are able to slow her diarrhea down. Review of Systems Review of Systems: All systems reviewed & are unremarkable except as noted in HPI & below Physical Exam Constitutional: well developed and comfortable; no acute distress Eyes: + anicteric sclerae and PERRL ENMT: external ear and nose normal, oropharynx normal Neck: normal visual inspection Respiratory: normal respiratory effort and able to speak in complete sente nces; no respiratory distress Auscultation: no wheezes Cardiovascular: RRR, no murmur, no edema Gastrointestinal (Abdomen): Inspection/Auscultation: + abdomen distended (much less today) and normal bowel sounds Percussion/Palpation: abdomen soft; abdomen nontender multiple abdominal scars from previous surgeries noted Musculoskeletal: no cyanosis or clubbing, extremities motor strength 5/5 Neurologic: PERRL, EOMI, accommodation nl, no face palsy, no dysarthria Psychiatric: Orientation: alert and oriented x 3 Lymphatic: no cervical or axillary lymphadenopathy Results & Data Results & Data ([facility]) Vital Signs (Past 12 Hours) Vital Signs Temp Pulse Resp BP Pulse Ox 06/20/20 07:26 36.4 C L 69 18 142/83 H 93 06/20/20 07:00 36.7 C 61 18 123/67 100 06/20/20 03:00 37.6 C H 104 H 20 136/90 97 06/19/20 22:54 36.9 C 62 20 127/67 100 Laboratory Results 06/20/20 06/20/20 06/20/20 Range/Units 07:35 05:50 05:50 WBC 4.26 L (4.8-10.8) K/uL RBC 2.98 L (4.2-5.4) M/uL Hgb 8.5 L (12.0-16.0) g/dL Hct 25.6 L (37-47) % MCV 85.9 (80-100) fL MCH 28.5 (25-34) pg MCHC 33.2 (32-36) g/dL RDW Std Deviation 48.1 H (36.4-46.3) fL RDW Coeff of Valentina 15.1 H (11.5-14.5) % Plt Count 223 (130-400) K/uL MPV 9.5 (7.4-10.4) fL Sodium 140 (136-145) mmol/L Potassium 3.6 (3.5-5.1) mmol/L Chloride 114 H (98-107) mmol/L Carbon Dioxide 17 L (21-32) mmol/L Anion Gap 9.0 (3-11) BUN 8 D (7-18) mg/dl Creatinine 1.06 (0.6-1.2) mg/dl Est Cr Clr Drug Dosing 56.2 ml/min Est GFR ( Amer) 65.6 Est GFR (Non-Af Amer) 56.6 BUN/Creatinine Ratio 7.1 L (10-20) Glucose 132 H (70-99) mg/dl POC Glucose 141 H (70-99) mg/dl Calcium 9.0 (8.5-10.1) mg/dl Phosphorus 2.9 D (2.5-4.9) mg/dl A. phagocytophilum DNA (Not Detected) CMV IgM Ab AU/mL CMV IgG Ab/TORCH U/mL 06/19/20 06/19/20 06/19/20 Range/Units 20:37 16:31 11:24 WBC (4.8-10.8) K/uL RBC (4.2-5.4) M/uL Hgb (12.0-16.0) g/dL Hct (37-47) % MCV (80-100) fL MCH (25-34) pg MCHC (32-36) g/dL RDW Std Deviation (36.4-46.3) fL RDW Coeff of Valentina (11.5-14.5) % Plt Count (130-400) K/uL MPV (7.4-10.4) fL Sodium (136-145) mmol/L Potassium (3.5-5.1) mmol/L Chloride (98-107) mmol/L Carbon Dioxide (21-32) mmol/L Anion Gap (3-11) BUN (7-18) mg/dl Creatinine (0.6-1.2) mg/dl Est Cr Clr Drug Dosing ml/min Est GFR ( Amer) Est GFR (Non-Af Amer) BUN/Creatinine Ratio (10-20) Glucose (70-99) mg/dl POC Glucose 195 H 128 H 102 H (70-99) mg/dl Calcium (8.5-10.1) mg/dl Phosphorus (2.5-4.9) mg/dl A. phagocytophilum DNA (Not Detected) CMV IgM Ab AU/mL CMV IgG Ab/TORCH U/mL 06/16/20 06/16/20 Range/Units 11:14 06:52 WBC (4.8-10.8) K/uL RBC (4.2-5.4) M/uL Hgb (12.0-16.0) g/dL Hct (37-47) % MCV (80-100) fL MCH (25-34) pg MCHC (32-36) g/dL RDW Std Deviation (36.4-46.3) fL RDW Coeff of Valentina (11.5-14.5) % Plt Count (130-400) K/uL MPV (7.4-10.4) fL Sodium (136-145) mmol/L Potassium (3.5-5.1) mmol/L Chloride (98-107) mmol/L Carbon Dioxide (21-32) mmol/L Anion Gap (3-11) BUN (7-18) mg/dl Creatinine (0.6-1.2) mg/dl Est Cr Clr Drug Dosing ml/min Est GFR ( Amer) Est GFR (Non-Af Amer) BUN/Creatinine Ratio (10-20) Glucose (70-99) mg/dl POC Glucose (70-99) mg/dl Calcium (8.5-10.1) mg/dl Phosphorus (2.5-4.9) mg/dl A. phagocytophilum DNA Not Detected (Not Detected) CMV IgM Ab <30.00 AU/mL CMV IgG Ab/TORCH >10.00 H U/mL Diagnostic Findings CT Chest w/o IMPRESSION: 1. Small left greater than right pleural effusions have mildly increased in size from the 06/16/2020 exam. 2. Mild dependent bibasilar atelectasis. There is pleural-parenchymal scarring of the left lung base with mild associated traction bronchiectasis of the posterior basal segment left lower lobe. 3. No adenopathy or airspace consolidation typical for pneumonia. 4. Multicystic liver. PG Care Time/CCT Total # of Minutes Spent Total Time Spent with Patient: Total time spent is greater than 50% in coordination of care (as documented) at patient's floor/unit and/or counseling patient: Coding Level of Care Code 13790 Subseq Hosp Care Lvl 3 Diagnoses Diarrhea R19.7 Diarrhea type: unspecified type Fever R50.9 Fever type: unspecified CKD (chronic kidney disease) stage 4, GFR 15-29 ml/min N18.4 H/O kidney transplant Z94.0 Gastritis K29.70 Chronicity: unspecified Gastritis bleeding: without bleeding Gastritis type: unspecified gastritis Diabetes mellitus E11.22; Z79.4 Chronic kidney disease stage: unspecified stage Diabetes mellitus complication detail: with chronic kidney disease Diabetes mellitus complication status: with kidney complications Diabetes mellitus shelter insulin use: with technician terminal and repeater use Diabetes mellitus type: type 2 Hypertension I10 Hypertension type: essential hypertension Hyperlipidemia E78.5 Hyperlipidemia type: unspecified Restless legs syndrome G25.81 Gout M10.9 Chronicity: unspecified Gout etiology: unspecified cause Gout site: unspecified site Hypophosphatemia E83.39 Hypokalemia E87.6 Depression F32.9 Depression Type: unspecified Migraine G43.909 Intractability: not intractable Migraine type: unspecified Status migrainosus presence: without status migrainosus Non-celiac gluten sensitivity K90.41 ATN (acute tubular necrosis) N17.0 Metabolic acidosis E87.2 Insomnia G47.00 DVT prophylaxis Z29.9 (1) Fever Fever type: unspecified Qualified Code(s): R50.9 - Fever, unspecified (2) Diabetes mellitus Chronic kidney disease stage: unspecified stage Diabetes mellitus complication detail: with chronic kidney disease Diabetes mellitus complication status: with kidney complications Diabetes mellitus shelter insulin use: with technician terminal and repeater use Diabetes mellitus type: type 2 Qualified Code(s): E11.22 - Type 2 diabetes mellitus with diabetic chronic kidney disease; Z79.4 - exterminator (current) use of insulin (3) Gout Chronicity: unspecified Gout etiology: unspecified cause Gout site: unspecified site Qualified Code(s): M10.9 - Gout, unspecified (4) Depression Depression Type: unspecified Qualified Code(s): F32.9 - Major depressive disorder, single episode, unspecified (5) Diarrhea Diarrhea type: unspecified type Qualified Code(s): R19.7 - Diarrhea, unspecified (6) Gastritis Chronicity: unspecified Gastritis bleeding: without bleeding Gastritis type: unspecified gastritis Qualified Code(s): K29.70 - Gastritis, unspecified, without bleeding (7) Migraine Intractability: not intractable Migraine type: unspecified Status migrainosus presence: without status migrainosus Qualified Code(s): G43.909 - Migraine, unspecified, not intractable, without status migrainosus (8) Hyperlipidemia Hyperlipidemia type: unspecified Qualified Code(s): E78.5 - Hyperlipidemia, unspecified (9) Hypertension Hypertension type: essential hypertension Qualified Code(s): I10 - Essential (primary) hypertension
--- NOTE | 2020-06-20 08:47 | CT Scan Report ---
CT chest wo con CT DOSE: 224.26 mGy.cm CLINICAL HISTORY: 60 years-old Female with fever unknown origin, hx smoking, diarrhea. Patient prese nts with acute fever with diarrhea. TECHNIQUE: Multiaxial CT images of the chest were performed without contrast. A dose lowering techni que was utilized adhering to the principles of ALARA. COMPARISON: CT abdomen and pelvis 06/16/2020, chest radiograph 06/16/2020 FINDINGS: Unremarkable thyroid. Mild cardiomegaly with small pericardial effusion. Mild coronary charlene ry calcifications. No thoracic aortic aneurysm. No adenopathy. Small pleural effusions, left greater than right have mildly increased in size in the interval. There is mild bronchiectasis of the posterior basal segment left lower lobe with adjacent pleural-parenchy mal scarring. Dependent subsegmental bibasilar atelectasis. There is no pneumothorax, overt pulmonary edema or airspace consolidation typical for pneumonia. No suspicious pulmonary nodules or masses. Th e central airways are patent. 4 mm groundglass nodule of the left lung apex. No acute process of the imaged upper abdomen. Polycystic liver. 12 mm peripherally calcified lesion i nvolves the posterior right hepatic lobe. Peripherally calcified bilateral breast implants. Degenerat ramón changes of the shoulders and spine. No acute fracture or suspicious bone lesion. IMPRESSION: 1. Small left greater than right pleural effusions have mildly increased in size from the 06/16/2020 e xam. 2. Mild dependent bibasilar atelectasis. There is pleural-parenchymal scarring of the left lung base with mild associated traction bronchiectasis of the posterior basal segment left lower lobe. 3. No adenopathy or airspace consolidation typical for pneumonia. 4. Multicystic liver. ACT 112: Negative or not required by law. Electronically signed by: Alberto Tillman M.D. 06/20/2020 8:46 AM
[2020-06-20] MEDS: carvediloL 6.25 MG TAB PO SCH ×2 (09:37→20:49)
[2020-06-20] MEDS: D5W AND 1/2NSS 1,000 ML IV SCH (09:37)
[2020-06-20] MEDS: SODIUM BICARBONATE 8.4% 75 MEQ in D5W AND 1/2NSS 1,000 ML IV SCH ×2 (11:24→20:55)
--- NOTE | 2020-06-20 11:40 | Nephrology Progress Note ---
Date of Service June 20, 2020 Assessment & Plan (1) H/O kidney transplant: * DDRT 2019 at [facility] due to ADPKD. Baseline Cr 1.2 - 1.4 * Stable kidney function. Electrolyte balance remains acceptable * Continue Sirolimus & Mycophenolate . (2) Metabolic acidosis: * Primary service requested evaluation today due to progressive metabolic acidosis * Acidosis related to bicarbonate loss associated w/ diarrhea * Patient is currently receiving IV hydration w/ 0.45 NS. Will add 75 mEq NaHCO3 to IVF and monitor serum bicarbonate w/ target level > 20 (3) Diarrhea: * Colonoscopy 06/18/20 - biopsies negative for microscopic colitis, inflammation or malignancy * CMV testing negative * Giardia, O&P - pending * Norovirus test - pending * Currently on empiric Valacyclovir Admission and Anticipated Discharge Date Admission Date: June 16, 2020 Subjective Mrs. Bowling was seen & examined in her hospital room this morning. She denies fever or abdominal discomfort. She continues to have frequent liquid BM's Review of Systems Constitutional: no fever Eyes: no problem reported Ear, Nose, Mouth, Throat: no problem reported Respiratory: no dyspnea Cardiovascular: no chest pain and no edema Gastrointestinal: + diarrhea/loose stools; no abdominal pain Genitourinary: no dysuria and no hematuria Musculoskeletal: no back pain Integumentary: no rash Neurologic: no dizziness and no confusion Physical Exam Constitutional: not in distress Eyes: PERRL, conjunctivae normal, anicteric sclerae ENMT: external ear and nose normal, oropharynx normal Neck: trachea midline, no thyromegaly Respiratory: normal respiratory effort, lungs clear to auscultation Cardiovascular: RRR, no murmur, no edema Gastrointestinal (Abdomen): normal bowel sounds, soft, nontender, no hepatosplenomegaly (transplant kidney in RLQ nontender to palpation) Musculoskeletal: Extremities: no cyanosis Skin: no rashes, warm and dry Neurologic: awake; not confused Results & Data ([facility]) Vital Signs (Past 12 Hours) Vital Signs Temp Pulse Pulse Resp BP Pulse Ox 06/20/20 07:26 36.4 C L 69 18 142/83 H 93 06/20/20 07:00 36.7 C 53 L 61 18 123/67 100 06/20/20 03:00 37.6 C H 104 H 20 136/90 97 Laboratory Tests 06/20/20 06/20/20 05:50 05:50 WBC 4.26 L Hgb 8.5 L Hct 25.6 L Plt Count 223 Sodium 140 Potassium 3.6 Chloride 114 H Carbon Dioxide 17 L Creatinine 1.06 Glucose 132 H PG Care Time/CCT Total # of Minutes Spent Total Time Spent with Patient: Total time spent is greater than 50% in coordination of care (as documented) at patient's floor/unit and/or counseling patient: Coding Level of Care Code 34208 Subseq Hosp Care Lvl 3 Diagnoses H/O kidney transplant Z94.0 Metabolic acidosis E87.2 Diarrhea R19.7 Diarrhea type: unspecified type (1) Diarrhea Diarrhea type: unspecified type Qualified Code(s): R19.7 - Diarrhea, unspecified
[2020-06-20] MEDS ORDERED: LACTOBACILLUS ACIDOPHILUS 1 GM PACK PO SCH (12:00)
[2020-06-20] MEDS: LOPERAMIDE HCL 2 MG CAP PO SCH ×2 (13:37→19:29)
[2020-06-20] MEDS: INSULIN DETEMIR FLEXPEN/FLEX TOUCH 100 UNITS/ML 3ML SQ SCH (20:41)
[2020-06-20] MEDS: ROPINIROLE HCL 0.25 MG TABLET PO SCH (20:53)
[2020-06-20] MEDS ORDERED: KETOROLAC TROMETHAMINE 15 MG/ML VIAL IV ONE (22:35)
[2020-06-20] MEDS ORDERED: OXYCODONE HCL IR 5 MG TAB (IMMEDIATE RELEASE) PO STA (23:12)
[2020-06-21] MEDS: LOPERAMIDE HCL 2 MG CAP PO SCH ×5 (01:04→23:46)
[2020-06-21] MEDS: ONDANSETRON INJ 2 MG/ML 2 ML VIAL IV PRN ×2 (06:54→18:53)
[2020-06-21 07:32] LABS: Hematocrit (blood only) 27.5 % (37-47); Hemoglobin 8.6 g/dL (12.0-16.0); Mean Corpuscular Hemoglobin 27.5 pg (25-34); Mean Corpuscular Hgb Conc 31.3 g/dL (32-36); Mean Corpuscular Volume 87.9 fL (80-100); Mean Platelet Volume 9.1 fL (7.4-10.4); Platelet Count 280 K/uL (130-400); RDW Coefficient of Variation 15.4 % (11.5-14.5); Red Blood Count 3.13 M/uL (4.2-5.4); White Blood Count 3.55 K/uL (4.8-10.8)
[2020-06-21 07:59] LABS: Albumin Level 2.3 gm/dl (3.4-5.0); BUN Creatinine Ratio 9.3 (10-20); Creatinine Clr Calc Pharmacy 64.1 ml/min; Est GFR (African American) 76.9; Est GFR (Non-African American) 66.3; Potassium 3.6 mmol/L (3.5-5.1)
[2020-06-21 08:02] LABS: Albumin Globulin Ratio 0.6 (0.9-2); Bilirubin,Total 0.3 mg/dl (0.2-1); Globulin 3.8 gm/dl (2.5-4.0); Phosphorus 2.4 mg/dl (2.5-4.9); Total Protein 6.1 gm/dl (6.4-8.2)
[2020-06-21] MEDS: PSYLLIUM 58.6% POWDER PACKET PO SCH (08:44)
[2020-06-21] MEDS: MYCOPHENOLATE SODIUM 180 MG TAB PO SCH ×2 (08:46→20:41)
[2020-06-21] MEDS: carvediloL 6.25 MG TAB PO SCH ×2 (08:46→20:39)
[2020-06-21] MEDS: PANTOprazole 40 MG TAB PO SCH (08:47)
[2020-06-21] MEDS: SIROLIMUS 0.5 MG TABLET PO SCH (08:47)
[2020-06-21] MEDS: VALACYCLOVIR HCL 500 MG TABLET PO SCH ×2 (08:48→20:42)
[2020-06-21] MEDS: predniSONE 5 MG TAB PO SCH (08:48)
[2020-06-21] MEDS: TAMSULOSIN HCL 0.4 MG CAP PO SCH ×2 (08:48→20:39)
[2020-06-21] MEDS: VENLAFAXINE HCL XR 75 MG CAPXR PO SCH (08:48)
--- NOTE | 2020-06-21 08:48 | Hospitalist Progress Note ---
Date of Service June 21, 2020 Assessment & Plan (1) Diarrhea: Profuse, watery diarrhea in immunocompromised host s/p bilateral renal transplant, follows with [facility]. Patient also s/p RIGHT hemicolectomy with ileocolic anastomosis 2010 secondary to SBO * CT abdomen with oral contrast with liquid stool in colon, diarrheal illness. 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 Kirk which showed 3mm sessile polyp in rectum (of note, no polyps noted 2 months ago), removed with cold snare. Ileum normal, entire colon examined normal and biopsied. Diverticulosis in the sigmoid colon, descending and transverse colon. * Pathology no suggestive of CMV colitis * Valacyclovir empirically on 06/19 after discussion with [facility] with patient reportedly feeling better --> will continue * Nephrology on consult * Added bicarb 75mew on 06/20 after discussion with Nephrology for non-anion gap metabolic acidosis with bicarb of 15 --> bicarb 23 on AM labs and removed from fluids. Aim >20 on AM labs. Will also decrease IVF to 75cc/hr given she is keeping up with oral fluids. * Urine legionella pending. Sputum if able * Sputum culture with few epi, few WBCs seen, few gram positive cocci, few gram negative bacilli. Possible normal patrick given epi but follow cx * Given Imodium and then patient refused as she had reduction in her diarrhea but then with recurrence, agreeable to continue and monitor response * Continue supportive treatment as outlined * No further fevers since low grade temp 06/20 37.6C, Tmax 39.5C on 06/19 (2) Fever: Waxing and waning nature --> afebrile from morning 06/17 up until 4am 06/19 with temp of 39.5C. * Since that time only T 37.6C attending ambulatory care 06/20 but nothing since that time--> likely some atelectasis and continued incentive spirometer encouraged * ESR, CRP elevated -- will repeat with am labs * CTAP as above * CXR with pleural effusions, no acute infectious process * CT Chest w/o with small L>R pleural effusions (mildly increased in size from 06/16), mild dependent bibasilar atelectasis, pleural-parenchymal scarrin L lung base with mild associated traction bronchiectasis of posterior basal segment left lower lobe, no adenopathy or airspace consolidation typical for pneumonia, multicystic liver * Will add sputum culture, legionella as above * BCx NGTD * Nephrology, ID, GI on consult as above * Tylenol IV prn * Valacyclovir renally dosed 1,000mg BID 06/19, continue * Stool studies, anaplasmosis PCR all have been negative * Sputum as above, urine -- follow * Continue supportive care as above (3) CKD (chronic kidney disease) stage 4, GFR 15-29 ml/min: * Cr 0.93 -- best it has been in YEARS * Avoid nephrotoxic agents --> TORADOL ordered by overnight team for headache -- would AVOID and utilize other agents. Success with oxycodone and will also help with diarrhea symptomatology * Follows with Dr. Roy locally. Nephrology on consult as above -- continue IV hydration, Valacyclovir as above * Follow labs (4) H/O kidney transplant: x2 at [place]. Follows locally with Dr. Roy. * Continue Sirolimus and Mycophenolate for transplant. * Stable. See above under CKD * Will need to keep close eye on pain RLQ as this is in region of her transplant. Non-tender to palpation at this current time. Instructed to inform nursing immediately if pain worsens. (5) Gastritis: * Recently diagnosed on EGD earlier this year * Continue Protonix 40 mg po daily (6) Diabetes mellitus: * Last [id number]=7.8 on 05/08/20. No repeat at this time * Hold oral agents while inpatient * Continue Levemir 9u qHS * ISS with accuchecks * BSGs acceptable * Continue to monitor (7) Hypertension: * Blood pressures labile -- currently 153/70 * Carvedilol 18.75mg BID * Continue to monitor (8) Hyperlipidemia: * Chronic. Patient statin intolerant (9) Restless legs syndrome: * Chronic * Continue Ropinirole (10) Gout: * Chronic. Well controlled. Patient denies joint pain or inflammation at present * Continue Allopurinol (11) Hypophosphatemia: * Phos 1.4 -- ordered 24mmol Kphos IV as well as oral QID x 4 doses with resolution * Phos slightly low 2.4 on AM labs -- ordered oral replacement to be continued * AM labs (12) Hypokalemia: * -- secondary to diarrhea. Kphos as above * Resolved -- K 3.6 * BMP in AM given above (13) Depression: * Chronic * Continue Venlafaxine 75mg po qAM * Added ativan 0.5mg PO prn given increased anxiety/agitation in the hospital (14) Migraine: * No migraine reported today. 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 Diagnosed earlier this year. Also with IgA low at 39 * Gluten free diet as tolerated following colonoscopy (16) ATN (acute tubular necrosis): * Secondary to diarrhea/dehydration. Patient with non-anion gap metabolic acidosis * IVF as above * Nephrology on consult (17) Metabolic acidosis: * As above -- non-anion gap --> resolved as above * IVF changes as above * Continue to monitor on am labs (18) Insomnia: * trazodone HS prn for tonight * Ativan added prn as above under depression (19) DVT prophylaxis: * SCDs * Ambulation encouraged --> patient has been up out of bed frequently without assistance. Calves non-tender. No shortness of breath, 99% on RA Dispo: prolonged inpatient stay, supportive care and antidiarrheals as above Sputum cx pending, legionella urine Admission and Anticipated Discharge Date Admission Date: June 16, 2020 Subjective Patient evaluated this morning. States she had been doing better yesterday, ate some of each meal and ended up refusing further doses of loperamide after second dose as diarrhea had slowed. Stated a rough night with headache and was ordered Toradol. She told RN about kidneys and that she should not receive this medication and was ordered oxycodone with some relief after unsuccessful with PO Tylenol (IV works better in past as discussed). She states this morning her IV she does not believe was flushed and she had to have a new site placed. Some agitation/frustration about continued hospitalization but does not feel safe going home with diarrhea until remains stable as discussed on labs once off fluids and continues to remain stable. She states "that's why I'm on the effexor". Discussed ordering small dose prn anxiolytic to utilize as needed for increased anxiety/agitation. Patient states she had worsening of her diarrhea starting this morning and is agreeable to continuing loperamide to slow diarrhea and discussed discontinuing bicarb from her IV as this is now stable. Did not get to shower yesterday as previously discussed. Will address with nursing to allow for today. She denies any further fevers or chills but states she did wake up wet from sweat and was uncomfortable to the point that she needed to change her gown. Discussed if able to reproduce sputum that we would order additional studies. She notes previous sputum more clear in color. Denies chest pain or shortness of breath. Some nausea this morning with relief with Zofran. Utilizing Phenergan at night for nausea as this does make her more tired. Denies abdominal pain, hematochezia or melena, but was minimally tender RLQ/suprapubic region without radiation on exam. Did have appendix removed in the past at the same time as she had reversal of her colectomy. She notes that is in the region of her renal transplant, but kidneys not tender on palpation. Questions/concerns addressed at this time. Review of Systems Review of Systems: All systems reviewed & are unremarkable except as noted in HPI & below Physical Exam Constitutional: well developed and comfortable; no acute distress Eyes: + anicteric sclerae and PERRL ENMT: white appearance to tongue, no oropharynx abnormality or evidence of exudate elsewhere mmm Neck: normal visual inspection Respiratory: normal respiratory effort and able to speak in complete sentences; no respiratory distress Auscultation: + crackles (R posterior apex -- resolved with deep cough); no wheezes Cardiovascular: RRR, no murmur, no edema Gastrointestinal (Abdomen): Inspection/Auscultation: + abdomen distended and normal bowel sounds Percussion/Palpation: + abdomen tender (minimally tender RLQ/suprapubic region on deep palpation) and abdomen soft Musculoskeletal: no cyanosis or clubbing, extremities motor strength 5/5 Neurologic: PERRL, EOMI, accommodation nl, no face palsy, no dysarthria Psychiatric: Orientation: alert, oriented x 3 and cooperative Lymphatic: no cervical or axillary lymphadenopathy Results & Data Results & [facility] ([facility]) Vital Signs (Past 12 Hours) Vital Signs Temp Pulse Pulse Resp BP BP Pulse Ox 06/21/20 07:00 37 C 57 L 18 153/70 H 99 06/21/20 04:03 57 L 06/21/20 03:21 36.9 C 51 L 18 121/65 97 06/20/20 22:25 36.7 C 55 L 19 132/64 98 Laboratory Results 06/21/20 06/21/20 06/21/20 Range/Units 07:13 06:56 06:56 WBC 3.55 L (4.8-10.8) K/uL RBC 3.13 L (4.2-5.4) M/uL Hgb 8.6 L (12.0-16.0) g/dL Hct 27.5 L (37-47) % MCV 87.9 (80-100) fL MCH 27.5 (25-34) pg MCHC 31.3 L (32-36) g/dL RDW Std Deviation 50.0 H (36.4-46.3) fL RDW Coeff of Valentina 15.4 H (11.5-14.5) % Plt Count 280 (130-400) K/uL MPV 9.1 (7.4-10.4) fL Sodium 140 (136-145) mmol/L Potassium 3.6 (3.5-5.1) mmol/L Chloride 109 H (98-107) mmol/L Carbon Dioxide 23 (21-32) mmol/L Anion Gap 8.0 (3-11) BUN 9 (7-18) mg/dl Creatinine 0.93 (0.6-1.2) mg/dl Est Cr Clr Drug Dosing 64.1 ml/min Est GFR ( Amer) 76.9 Est GFR (Non-Af Amer) 66.3 BUN/Creatinine Ratio 9.3 L (10-20) Glucose 113 H (70-99) mg/dl POC Glucose 119 H (70-99) mg/dl Calcium 9.0 (8.5-10.1) mg/dl Phosphorus 2.4 L (2.5-4.9) mg/dl Total Bilirubin 0.3 (0.2-1) mg/dl AST 26 (15-37) U/L ALT 36 (12-78) U/L Alkaline Phosphatase 84 (45-117) U/L Total Protein 6.1 L (6.4-8.2) gm/dl Albumin 2.3 L (3.4-5.0) gm/dl Globulin 3.8 (2.5-4.0) gm/dl Albumin/Globulin Ratio 0.6 L (0.9-2) Urine Legionella Ag 06/20/20 06/20/20 06/20/20 Range/Units 20:32 16:38 14:10 WBC (4.8-10.8) K/uL RBC (4.2-5.4) M/uL Hgb (12.0-16.0) g/dL Hct (37-47) % MCV (80-100) fL MCH (25-34) pg MCHC (32-36) g/dL RDW Std Deviation (36.4-46.3) fL RDW Coeff of Valentina (11.5-14.5) % Plt Count (130-400) K/uL MPV (7.4-10.4) fL Sodium (136-145) mmol/L Potassium (3.5-5.1) mmol/L Chloride (98-107) mmol/L Carbon Dioxide (21-32) mmol/L Anion Gap (3-11) BUN (7-18) mg/dl Creatinine (0.6-1.2) mg/dl Est Cr Clr Drug Dosing ml/min Est GFR ( Amer) Est GFR (Non-Af Amer) BUN/Creatinine Ratio (10-20) Glucose (70-99) mg/dl POC Glucose 161 H 176 H (70-99) mg/dl Calcium (8.5-10.1) mg/dl Phosphorus (2.5-4.9) mg/dl Total Bilirubin (0.2-1) mg/dl AST (15-37) U/L ALT (12-78) U/L Alkaline Phosphatase (45-117) U/L Total Protein (6.4-8.2) gm/dl Albumin (3.4-5.0) gm/dl Globulin (2.5-4.0) gm/dl Albumin/Globulin Ratio (0.9-2) Urine Legionella Ag Pending 06/20/20 Range/Units 11:40 WBC (4.8-10.8) K/uL RBC (4.2-5.4) M/uL Hgb (12.0-16.0) g/dL Hct (37-47) % MCV (80-100) fL MCH (25-34) pg MCHC (32-36) g/dL RDW Std Deviation (36.4-46.3) fL RDW Coeff of Valentina (11.5-14.5) % Plt Count (130-400) K/uL MPV (7.4-10.4) fL Sodium (136-145) mmol/L Potassium (3.5-5.1) mmol/L Chloride (98-107) mmol/L Carbon Dioxide (21-32) mmol/L Anion Gap (3-11) BUN (7-18) mg/dl Creatinine (0.6-1.2) mg/dl Est Cr Clr Drug Dosing ml/min Est GFR ( Amer) Est GFR (Non-Af Amer) BUN/Creatinine Ratio (10-20) Glucose (70-99) mg/dl POC Glucose 146 H (70-99) mg/dl Calcium (8.5-10.1) mg/dl Phosphorus (2.5-4.9) mg/dl Total Bilirubin (0.2-1) mg/dl AST (15-37) U/L ALT (12-78) U/L Alkaline Phosphatase (45-117) U/L Total Protein (6.4-8.2) gm/dl Albumin (3.4-5.0) gm/dl Globulin (2.5-4.0) gm/dl Albumin/Globulin Ratio (0.9-2) Urine Legionella Ag PG Care Time/CCT Total # of Minutes Spent Total Time Spent with Patient: Total time spent is greater than 50% in coordination of care (as documented) at patient's floor/unit and/or counseling patient: Coding Level of Care Code 83216 Subs Hosp Care Lvl 3 Diagnoses Diarrhea R19.7 Diarrhea type: unspecified type Fever R50.9 Fever type: unspecified CKD (chronic kidney disease) stage 4, GFR 15-29 ml/min N18.4 H/O kidney transplant Z94.0 Gastritis K29.70 Chronicity: unspecified Gastritis bleeding: without bleeding Gastritis type: unspecified gastritis Diabetes mellitus E11.22; Z79.4 Chronic kidney disease stage: unspecified stage Diabetes mellitus complication detail: with chronic kidney disease Diabetes mellitus complication status: with kidney complications Diabetes mellitus superintendent terminal insulin use: with superintendent terminal use Diabetes mellitus type: type 2 Hypertension I10 Hypertension type: essential hypertension Hyperlipidemia E78.5 Hyperlipidemia type: unspecified Restless legs syndrome G25.81 Gout M10.9 Chronicity: unspecified Gout etiology: unspecified cause Gout site: unspecified site Hypophosphatemia E83.39 Hypokalemia E87.6 Depression F32.9 Depression Type: unspecified Migraine G43.909 Intractability: not intractable Migraine type: unspecified Status migrainosus presence: without status migrainosus Non-celiac gluten sensitivity K90.41 ATN (acute tubular necrosis) N17.0 Metabolic acidosis E87.2 Insomnia G47.00 DVT prophylaxis Z29.9 (1) Fever Fever type: unspecified Qualified Code(s): R50.9 - Fever, unspecified (2) Diabetes mellitus Chronic kidney disease stage: unspecified stage Diabetes mellitus complication detail: with chronic kidney disease Diabetes mellitus complication status: with kidney complications Diabetes mellitus superintendent terminal insulin use: with mcc use Diabetes mellitus type: type 2 Qualified Code(s): E11.22 - Type 2 diabetes mellitus with diabetic chronic kidney disease; Z79.4 - FDC (current) use of insulin (3) Gout Chronicity: unspecified Gout etiology: unspecified cause Gout site: unspecified site Qualified Code(s): M10.9 - Gout, unspecified (4) Depression Depression Type: unspecified Qualified Code(s): F32.9 - Major depressive disorder, single episode, unspecified (5) Diarrhea Diarrhea type: unspecified type Qualified Code(s): R19.7 - Diarrhea, unspecified (6) Gastritis Chronicity: unspecified Gastritis bleeding: without bleeding Gastritis type: unspecified gastritis Qualified Code(s): K29.70 - Gastritis, unspecified, without bleeding (7) Migraine Intractability: not intractable Migraine type: unspecified Status migrainosus presence: without status migrainosus Qualified Code(s): G43.909 - Migraine, unspecified, not intractable, without status migrainosus (8) Hyperlipidemia Hyperlipidemia type: unspecified Qualified Code(s): E78.5 - Hyperlipidemia, unspecified (9) Hypertension Hypertension type: essential hypertension Qualified Code(s): I10 - Essential (primary) hypertension
[2020-06-21] MEDS: INSULIN ASPART 100 UNITS/ML 3 ML PEN SC SCH ×4 (08:55→20:47)
[2020-06-21] MEDS: POT PHOSPHATE MONOBASIC W/ SOD TAB PO SCH ×4 (09:03→20:43)
[2020-06-21] MEDS: SODIUM BICARBONATE 8.4% 75 MEQ in D5W AND 1/2NSS 1,000 ML IV SCH (09:03)
[2020-06-21] MEDS: BUTALBITAL/ACETAMIN/CAFFEINE TAB PO PRN (09:16)
[2020-06-21] MEDS: D5W AND 1/2NSS 1,000 ML IV SCH ×2 (10:47→23:45)
--- NOTE | 2020-06-21 11:15 | Nephrology Progress Note ---
Date of Service June 21, 2020 Assessment & Plan (1) H/O kidney transplant: * DDRT 2019 at [facility] due to ADPKD. Baseline Cr 1.2 - 1.4 * Stable kidney function. Electrolyte balance remains acceptable * Continue Sirolimus & Mycophenolate . (2) Metabolic acidosis: * Primary service requested evaluation due to progressive metabolic acidosis * Acidosis related to bicarbonate loss associated w/ diarrhea. This has corrected w/ IV NaHCO3. * Stop IV NaHCO3. Continue gentle hydration w/ 0.45 NS (3) Diarrhea: * Colonoscopy 06/18/20 - biopsies negative for microscopic colitis, inflammation or malignancy * CMV testing negative * Giardia, O&P - pending * Norovirus test - pending * Currently on empiric Valacyclovir Admission and Anticipated Discharge Date Admission Date: June 16, 2020 Subjective Mrs. Bowling was seen & examined in her hospital room this morning. She denies fever or abdominal discomfort. She continues to have frequent liquid BM's Review of Systems Constitutional: no fever Eyes: no problem reported Ear, Nose, Mouth, Throat: no problem reported Respiratory: no dyspnea Cardiovascular: no chest pain and no edema Gastrointestinal: + diarrhea/loose stools Genitourinary: no dysuria and no hematuria Musculoskeletal: no back pain Integumentary: no rash Neurologic: no confusion Physical Exam Constitutional: not in distress Eyes: PERRL, conjunctivae normal, anicteric sclerae ENMT: external ear and nose normal, oropharynx normal Neck: trachea midline, no thyromegaly Respiratory: normal respiratory effort, lungs clear to auscultation Cardiovascular: RRR, no murmur, no edema Gastrointestinal (Abdomen): normal bowel sounds, soft, nontender, no hepatosplenomegaly (transplant kidney in RLQ nontender to palpation) Musculoskeletal: Extremities: no cyanosis Skin: no rashes, warm and dry Neurologic: awake; not confused Results & Data ([facility]) Vital Signs (Past 12 Hours) Vital Signs Temp Pulse Pulse Resp BP Pulse Ox 06/21/20 08:00 66 06/21/20 07:00 37 C 57 L 18 153/70 H 99 06/21/20 04:03 57 L 06/21/20 03:21 36.9 C 51 L 18 121/65 97 Laboratory Results Laboratory Tests 06/21/20 06/21/20 06:56 06:56 WBC 3.55 L Hgb 8.6 L Hct 27.5 L Plt Count 280 Sodium 140 Potassium 3.6 Chloride 109 H Carbon Dioxide 23 BUN 9 Creatinine 0.93 Glucose 113 H Calcium 9.0 Phosphorus 2.4 L AST 26 ALT 36 Alkaline Phosphatase 84 Albumin 2.3 L PG Care Time/CCT Total # of Minutes Spent Total Time Spent with Patient: Total time spent is greater than 50% in coordination of care (as documented) at patient's floor/unit and/or counseling patient: Coding Level of Care Code 72421 Subseq Hosp Care Lvl 3 Diagnoses H/O kidney transplant Z94.0 Metabolic acidosis E87.2 Diarrhea R19.7 Diarrhea type: unspecified type (1) Diarrhea Diarrhea type: unspecified type Qualified Code(s): R19.7 - Diarrhea, unspecified
[2020-06-21] MEDS ORDERED: LORazepam 0.5 MG TAB PO PRN (11:21)
[2020-06-21] MEDS: ROPINIROLE HCL 0.25 MG TABLET PO SCH (20:43)
[2020-06-21] MEDS: INSULIN DETEMIR FLEXPEN/FLEX TOUCH 100 UNITS/ML 3ML SQ SCH (20:48)
[2020-06-21] MEDS: PROCHLORPERAZINE 5 MG in SYRINGE 4 ML IV PRN (21:13)
[2020-06-22 06:27] LABS: Basophils # (auto) 0.01 K/uL (0-0.2); Basophils % (auto) 0.2 %; Eosinophils # (auto) 0.08 K/uL (0-0.5); Eosinophils % (auto) 1.6 %; Hematocrit (blood only) 25.2 % (37-47); Hemoglobin 8.3 g/dL (12.0-16.0); Immature Granulocytes # (auto) 0.02 K/uL (0.00-0.02); Immature Granulocytes % (auto) 0.4 %; Lymphocytes # (auto) 0.64 K/uL (1.2-3.4); Lymphocytes % (auto) 12.9 %; Mean Corpuscular Hemoglobin 28.7 pg (25-34); Mean Corpuscular Hgb Conc 32.9 g/dL (32-36); Mean Corpuscular Volume 87.2 fL (80-100); Mean Platelet Volume 9.1 fL (7.4-10.4); Monocytes # (auto) 0.59 K/uL (0.11-0.59); Monocytes % (auto) 11.9 %; Neutrophils # (auto) 3.61 K/uL (1.4-6.5); Platelet Count 298 K/uL (130-400); RDW Coefficient of Variation 15.2 % (11.5-14.5); RDW Standard Deviation 48.9 fL (36.4-46.3); Red Blood Count 2.89 M/uL (4.2-5.4); White Blood Count 4.95 K/uL (4.8-10.8)
[2020-06-22 06:59] LABS: C Reactive Protein 7.35 mg/dl (0-0.29); Calcium 8.6 mg/dl (8.5-10.1); Creatinine Clr Calc Pharmacy 49.7 ml/min; Est GFR (African American) 56.5; Est GFR (Non-African American) 48.7; Potassium 3.7 mmol/L (3.5-5.1)
[2020-06-22 07:00] LABS: Phosphorus 2.7 mg/dl (2.5-4.9)
[2020-06-22] MEDS: carvediloL 6.25 MG TAB PO SCH ×2 (09:08→20:57)
[2020-06-22] MEDS: VENLAFAXINE HCL XR 75 MG CAPXR PO SCH (09:09)
[2020-06-22] MEDS: TAMSULOSIN HCL 0.4 MG CAP PO SCH ×2 (09:09→20:58)
[2020-06-22] MEDS: PANTOprazole 40 MG TAB PO SCH (09:10)
[2020-06-22] MEDS: PSYLLIUM 58.6% POWDER PACKET PO SCH (09:10)
[2020-06-22] MEDS: MYCOPHENOLATE SODIUM 180 MG TAB PO SCH ×2 (09:10→20:54)
[2020-06-22] MEDS: predniSONE 5 MG TAB PO SCH (09:10)
[2020-06-22] MEDS: SIROLIMUS 0.5 MG TABLET PO SCH (09:11)
[2020-06-22] MEDS: LOPERAMIDE HCL 2 MG CAP PO SCH ×4 (09:11→18:26)
[2020-06-22] MEDS: POT PHOSPHATE MONOBASIC W/ SOD TAB PO SCH ×4 (09:11→20:55)
[2020-06-22] MEDS: INSULIN ASPART 100 UNITS/ML 3 ML PEN SC SCH ×4 (09:11→20:59)
[2020-06-22] MEDS: VALACYCLOVIR HCL 500 MG TABLET PO SCH ×2 (09:11→20:56)
[2020-06-22] MEDS: D5W AND 1/2NSS 1,000 ML IV SCH ×2 (10:59→23:39)
[2020-06-22] MEDS: ACETAMINOPHEN 325 MG TAB PO PRN (10:59)
--- NOTE | 2020-06-22 13:22 | Nephrology Progress Note ---
Date of Service June 22, 2020 Assessment & Plan (1) H/O kidney transplant: Mrs. Bowling seems relatively stable. She continues to have some diarrhea although it appears to be less frequent than it had been. Although she has a low-grade fever intermittently, she has not had the higher fevers in the range of 38.5 degrees that she had had previously. In some respects, on valacyclovir, her symptoms have improved but not resolved completely. CMV colitis is a possible reason for her symptomatology although classic histological findings were not described on her colon biopsy. Some additional studies remain pending. However, for now, I would simply continue her course with valacyclovir. Would continue her current immunosuppression. Fortunately, her renal function has remained stable by maintaining hydration. (2) Diarrhea: (3) Fever: Admission and Anticipated Discharge Date Admission Date: June 16, 2020 Subjective Mrs. Bowling says she is not feeling particularly well this morning. She seems a bit depressed. She admits that she did not sleep well last night. This morning, she had a relatively high volume watery bowel movement. She denies abdominal pain. She has not had shaking chills and has not had a significant temperature over the course of the weekend but did have a temperature as high as 37.4 degrees. She denies having any hematochezia. She has no symptoms of uremia or volume overload. She has no tenderness or discomfort over her right lower quadrant renal transplant. Since June 19, she has been taking valacyclovir 1 g twice daily. Physical Exam Physical Exam: On physical examination, Mrs. Bowling appears a bit depressed but in no acute distress. Her blood pressure 116/69 supine. Her pulse is 71 and regular. Respiratory rate is 20 with a pulse ox of 94% on room air. Her temperature is 37.1 C. Her skin shows normal skin turgor. She has scars from prior surgical procedures including multiple scars on her abdomen. She has no rash or infiltrative skin disease. She has no palpable lymphadenopathy. Her head is normal. Eyes are grossly normal. She has no conjunctival icterus. The ocular fundi were not examined. Ears, nose, mouth and throat are all unremarkable. Her oral mucous membranes are moist. Her neck is supple. She h as no jugular venous distention, carotid bruit or thyromegaly. Her chest is clear to auscultation. She has no wheezes, rales or rhonchi. Cardiac exam shows a regular rhythm. S1 and S2 are normal. I hear no murmur or gallop. Her abdomen shows the scars. It is nontender. Bowel sounds are present. Renal transplants are palpable in both lower quadrants. They are both nontender. She has a soft bruit over the right lower quadrant transplant. Extremities show no cyanosis or clubbing. She has trace peripheral edema. She has some chronic skin changes on her distal lower extremities. Peripheral pulses are intact. Her neurologic exam shows no lateralizing changes. Results & Data ([facility]) Vital Signs (Past 12 Hours) Vital Signs Temp Pulse Pulse Resp BP BP Pulse Ox 06/22/20 12:12 37.1 C 71 20 116/69 94 06/22/20 07:31 37.4 C 71 18 130/74 95 06/22/20 03:12 62 Laboratory Results Laboratory Results - last 24 hr 06/15/20 06/21/20 06/21/20 17:20 16:15 16:25 WBC RBC Hgb Hct MCV MCH MCHC RDW Std Deviation RDW Coeff of Valentina Plt Count MPV Immature Gran % (Auto) Neut % (Auto) Lymph % (Auto) [place] % (Auto) Eos % (Auto) Baso % (Auto) Neut # (Auto) Lymph # (Auto) [place] # (Auto) Eos # (Auto) Baso # (Auto) Immature Gran # (Auto) ESR Sodium Potassium Chloride Carbon Dioxide Anion Gap BUN Creatinine Est Cr Clr Drug Dosing Est GFR ( Amer) Est GFR (Non-Af Amer) BUN/Creatinine Ratio Glucose POC Glucose 167 H Calcium Phosphorus C-Reactive Protein Legionella Source Pending Legionella Culture Pending Norovirus RNA (PCR) NOT DETECTED Miscellaneous Test Miscellaneous Test 2 Miscellaneous Test 3 06/21/20 06/22/20 06/22/20 20:07 05:47 05:47 WBC 4.95 RBC 2.89 L Hgb 8.3 L Hct 25.2 L MCV 87.2 MCH 28.7 MCHC 32.9 RDW Std Deviation 48.9 H RDW Coeff of Valentina 15.2 H Plt Count 298 MPV 9.1 Immature Gran % (Auto) 0.4 Neut % (Auto) 73.0 Lymph % (Auto) 12.9 [place] % (Auto) 11.9 Eos % (Auto) 1.6 Baso % (Auto) 0.2 Neut # (Auto) 3.61 Lymph # (Auto) 0.64 L [place] # (Auto) 0.59 Eos # (Auto) 0.08 Baso # (Auto) 0.01 Immature Gran # (Auto) 0.02 ESR Sodium 141 Potassium 3.7 Chloride 109 H Carbon Dioxide 26 Anion Gap 6.0 BUN 11 Creatinine 1.20 Est Cr Clr Drug Dosing 49.7 Est GFR ( Amer) 56.5 Est GFR (Non-Af Amer) 48.7 BUN/Creatinine Ratio 9.0 L Glucose 103 H POC Glucose 128 H Calcium 8.6 Phosphorus 2.7 C-Reactive Protein 7.35 H Legionella Source Legionella Culture Norovirus RNA (PCR) Miscellaneous Test Miscellaneous Test 2 Miscellaneous Test 3 06/22/20 06/22/20 06/22/20 05:47 07:39 10:30 WBC RBC Hgb Hct MCV MCH MCHC RDW Std Deviation RDW Coeff of Valentina Plt Count MPV Immature Gran % (Auto) Neut % (Auto) Lymph % (Auto) [place] % (Auto) Eos % (Auto) Baso % (Auto) Neut # (Auto) Lymph # (Auto) [place] # (Auto) Eos # (Auto) Baso # (Auto) Immature Gran # (Auto) ESR 55 H Sodium Potassium Chloride Carbon Dioxide Anion Gap BUN Creatinine Est Cr Clr Drug Dosing Est GFR ( Amer) Est GFR (Non-Af Amer) BUN/Creatinine Ratio Glucose POC Glucose 111 H Calcium Phosphorus C-Reactive Protein Legionella Source Legionella Culture Norovirus RNA (PCR) Miscellaneous Test Pending Miscellaneous Test 2 Pending Miscellaneous Test 3 Pending 06/22/20 11:33 WBC RBC Hgb Hct MCV MCH MCHC RDW Std Deviation RDW Coeff of Valentina Plt Count MPV Immature Gran % (Auto) Neut % (Auto) Lymph % (Auto) [place] % (Auto) Eos % (Auto) Baso % (Auto) Neut # (Auto) Lymph # (Auto) [place] # (Auto) Eos # (Auto) Baso # (Auto) Immature Gran # (Auto) ESR Sodium Potassium Chloride Carbon Dioxide Anion Gap BUN Creatinine Est Cr Clr Drug Dosing Est GFR ( Amer) Est GFR (Non-Af Amer) BUN/Creatinine Ratio Glucose POC Glucose 140 H Calcium Phosphorus C-Reactive Protein Legionella Source Legionella Culture Norovirus RNA (PCR) Miscellaneous Test Miscellaneous Test 2 Miscellaneous Test 3 PG Care Time/CCT Total # of Minutes Spent Total Time Spent with Patient: Total time spent is greater than 50% in coordination of care (as documented) at patient's floor/unit and/or counseling patient: Coding Level of Care Code 60801 Subseq Hosp Care Lvl 3 Diagnoses H/O kidney transplant Z94.0 Diarrhea R19.7 Diarrhea type: unspecified type Fever R50.9 (1) Diarrhea Diarrhea type: unspecified type Qualified Code(s): R19.7 - Diarrhea, unspecified
--- NOTE | 2020-06-22 14:17 | Hospitalist Progress Note ---
Date of Service June 22, 2020 Assessment & Plan (1) Diarrhea: Profuse, watery diarrhea in immunocompromised host s/p bilateral renal transplant, follows with [facility]. Patient also s/p RIGHT hemicolectomy with ileocolic anastomosis 2010 secondary to SBO * CT abdomen with oral contrast with liquid stool in colon, diarrheal illness. 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 Kirk which showed 3mm sessile polyp in rectum (of note, no polyps noted 2 months ago), removed with cold snare. Ileum normal, entire colon examined normal and biopsied. Diverticulosis in the sigmoid colon, descending and transverse colon. 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 Aim >20 on AM labs. Will also decrease IVF to 75cc/hr given she is keeping up with oral fluids. * Urine legionella pending. Sputum if able * Sputum culture with few epi, few WBCs seen, few gram positive cocci, few gram negative bacilli. Possible normal patrick given epi but follow cx * Given Imodium and then patient refused as she had reduction in her diarrhea but then with recurrence, agreeable to continue and monitor response * Continue supportive treatment as outlined * No further fevers since low grade temp 06/20 37.6C, Tmax 39.5C on 06/19 * * Added microsporidium, stool pH, and Aretha complex to look for other causes. Diarrhea improved yesterday after Imodium, but back again this morning. Will Covid test per patient's request, but low concern. (2) Fever: Waxing and waning nature --> afebrile from morning 06/17 up until 4am 06/19 with temp of 39.5C. * Since that time only T 37.6C timber watchman 06/20 but nothing since that time--> likely some atelectasis and continued incentive spirometer encouraged * ESR, CRP elevated -- will repeat with am labs * CTAP as above * CXR with pleural effusions, no acute infectious process * CT Chest w/o with small L>R pleural effusions (mildly increased in size from 06/16), mild dependent bibasilar atelectasis, pleural-parenchymal scarrin L lung base with mild associated traction bronchiectasis of posterior basal segment left lower lobe, no adenopathy or airspace consolidation typical for pneumonia, multicystic liver * Will add sputum culture, legionella as above * BCx NGTD * Nephrology, ID, GI on consult as above * Tylenol IV prn * Valacyclovir renally dosed 1,000mg BID 06/19, continue * Stool studies, anaplasmosis PCR all have been negative * Sputum as above, urine -- follow * Continue supportive care as above (3) CKD (chronic kidney disease) stage 4, GFR 15-29 ml/min: * Cr 0.93 -- best it has been in YEARS * Avoid nephrotoxic agents --> TORADOL ordered by overnight team for headache -- would AVOID and utilize other agents. Success with oxycodone and will also help with diarrhea symptomatology * Follows with Dr. Roy locally. Nephrology on consult as above -- continue IV hydration, Valacyclovir as above * Follow labs -> Now 1.2 today. Still generally at baseline. (4) H/O kidney transplant: x2 at [place]. Follows locally with Dr. Roy. * Continue Sirolimus and Mycophenolate for transplant. * Stable. See above under CKD * Will need to keep close eye on pain RLQ as this is in region of her transp lant. Non-tender to palpation at this current time. Instructed to inform nursing immediately if pain worsens. (5) Gastritis: * Recently diagnosed on EGD earlier this year * Continue Protonix 40 mg po daily (6) Diabetes mellitus: * Last [id number]=2.8 on 05/08/20. No repeat at this time * Hold oral agents while inpatient * Continue Levemir 9u qHS * ISS with accuchecks * BSGs acceptable * Continue to monitor (7) Hypertension: * Blood pressures labile -- currently 113/70 * Carvedilol 18.75mg BID * Continue to monitor (8) Hyperlipidemia: * Chronic. Patient statin intolerant (9) Restless legs syndrome: * Chronic * Continue Ropinirole (10) Gout: * Chronic. Well controlled. Patient denies joint pain or inflammation at present * Continue Allopurinol (11) Hypophosphatemia: * Phos 1.4 -- ordered 24mmol Kphos IV as well as oral QID x 4 doses with resolution * Phos slightly low 2.4 on AM labs -- ordered oral replacement to be continued * AM labs (12) Hypokalemia: * -- secondary to diarrhea. Kphos as above * Resolved -- K 3.6 * BMP in AM given above (13) Depression: * Chronic * Continue Venlafaxine 75mg po qAM * Added ativan 0.5mg PO prn given increased anxiety/agitation in the hospital (14) Migraine: * No migraine reported today. 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 Diagnosed earlier this year. Also with IgA low at 39 * Gluten free diet as tolerated following colonoscopy (16) ATN (acute tubular necrosis): * Secondary to diarrhea/dehydration. Patient with non-anion gap metabolic acidosis * IVF as above * Nephrology on consult (17) Metabolic acidosis: * As above -- non-anion gap --> resolved as above * IVF changes as above * Continue to monitor on am labs (18) Insomnia: * trazodone HS prn for tonight * Ativan added prn as above under depression (19) DVT prophylaxis: * SCDs * Ambulation encouraged --> patient has been up out of bed frequently without assistance. Calves non-tender. No shortness of breath, 99% on RA Dispo: prolonged inpatient stay, supportive care and antidiarrheals as above Sputum cx pending, legionella urine Admission and Anticipated Discharge Date Admission Date: June 16, 2020 Subjective No improvement this morning. Did better yesterday with Imodium. Reports no fevers/chills, chest pain, shortness of breath, abdominal pain, nausea, or vomiting. Physical Exam Constitutional: WD/WN, vitals as above Eyes: EOM intact bilaterally; no conjunctival abnormality ENMT: external ear and nose normal, oropharynx normal Neck: trachea midline, no thyromegaly normal visual inspection Respiratory: normal respiratory effort, lungs clear to auscultation no respiratory distress Cardiovascular: RRR, no murmur, no edema Gastrointestinal (Abdomen): Inspection/Auscultation: abdomen normal to inspection; abdomen not distended Musculoskeletal: no cyanosis or clubbing, extremities motor strength 5/5 Skin: no rashes, warm and dry Neurologic: moves all extremities and awake Psychiatric: Orientation: alert, oriented to person and cooperative Results & Data Results & Data ([facility]) Vital Signs (Past 12 Hours) Vital Signs Temp Pulse Pulse Resp BP BP Pulse Ox 06/22/20 12:12 37.1 C 71 20 116/69 94 06/22/20 07:31 37.4 C 71 18 130/74 95 06/22/20 03:12 62 PG Care Time/CCT Total # of Minutes Spent Total Time Spent with Patient: Total time spent is greater than 50% in coordination of care (as documented) at patient's floor/unit and/or counseling patient: Coding Level of Care Code 76353 Subseq Hosp Care Lvl 2 Diagnoses Diarrhea R19.7 Diarrhea type: unspecified type Fever R50.9 Fever type: unspecified CKD (chronic kidney disease) stage 4, GFR 15-29 ml/min N18.4 H/O kidney transplant Z94.0 Gastritis K29.70 Gastritis type: unspecified gastritis Chronicity: unspecified Gastritis bleeding: without bleeding Diabetes mellitus E11.22; Z79.4 Diabetes mellitus type: type 2 Diabetes mellitus jail insulin use: with press tender long goods use Diabetes mellitus complication status: with kidney complications Diabetes mellitus complication detail: with chronic kidney disease Chronic kidney disease stage: unspecified stage Hypertension I10 Hypertension type: essential hypertension Hyperlipidemia E78.5 Hyperlipidemia type: unspecified Restless legs syndrome G25.81 Gout M10.9 Gout site: unspecified site Gout etiology: unspecified cause Chronicity: unspecified Hypophosphatemia E83.39 Hypokalemia E87.6 Depression F32.9 Depression Type: unspecified Migraine G43.909 Migraine type: unspecified Status migrainosus presence: without status migrainosus Intractability: not intractable Non-celiac gluten sensitivity K90.41 ATN (acute tubular necrosis) N17.0 Metabolic acidosis E87.2 Insomnia G47.00 DVT prophylaxis Z29.9 (1) Diarrhea Diarrhea type: unspecified type Qualified Code(s): R19.7 - Diarrhea, unspecified (2) Fever Fever type: unspecified Qualified Code(s): R50.9 - Fever, unspecified (3) Gastritis Gastritis type: unspecified gastritis Chronicity: unspecified Gastritis bleeding: without bleeding Qualified Code(s): K29.70 - Gastritis, unspecified, without bleeding (4) Diabetes mellitus Diabetes mellitus type: type 2 Diabetes mellitus jail insulin use: with press tender long goods use Diabetes mellitus complication status: with kidney complications Diabetes mellitus complication detail: with chronic kidney disease Chronic kidney disease stage: unspecified stage Qualified Code(s): E11.22 - Type 2 diabetes mellitus with diabetic chronic kidney disease; Z79.4 - skilled nursing (current) use of insulin (5) Hypertension Hypertension type: essential hypertension Qualified Code(s): I10 - Essential (primary) hypertension (6) Hyperlipidemia Hyperlipidemia type: unspecified Qualified Code(s): E78.5 - Hyperlipidemia, unspecified (7) Gout Gout site: unspecified site Gout etiology: unspecified cause Chronicity: unspecified Qualified Code(s): M10.9 - Gout, unspecified (8) Depression Depression Type: unspecified Qualified Code(s): F32.9 - Major depressive disorder, single episode, unspecified (9) Migraine Migraine type: unspecified Status migrainosus presence: without status migrainosus Intractability: not intractable Qualified Code(s): G43.909 - Migraine, unspecified, not intractable, without status migrainosus
[2020-06-22] MEDS: INSULIN DETEMIR FLEXPEN/FLEX TOUCH 100 UNITS/ML 3ML SQ SCH (20:53)
[2020-06-22] MEDS: ROPINIROLE HCL 0.25 MG TABLET PO SCH (20:55)
[2020-06-23] MEDS: LOPERAMIDE HCL 2 MG CAP PO SCH ×4 (06:24→21:35)
[2020-06-23] MEDS: PROCHLORPERAZINE 5 MG in SYRINGE 4 ML IV PRN ×2 (06:58→20:36)
[2020-06-23 07:37] LABS: Hematocrit (blood only) 27.9 % (37-47); Hemoglobin 8.7 g/dL (12.0-16.0); Mean Corpuscular Hemoglobin 27.8 pg (25-34); Mean Corpuscular Hgb Conc 31.2 g/dL (32-36); Mean Corpuscular Volume 89.1 fL (80-100); Mean Platelet Volume 8.8 fL (7.4-10.4); Platelet Count 307 K/uL (130-400); RDW Coefficient of Variation 15.4 % (11.5-14.5); RDW Standard Deviation 50.3 fL (36.4-46.3); Red Blood Count 3.13 M/uL (4.2-5.4); White Blood Count 4.23 K/uL (4.8-10.8)
[2020-06-23 07:46] LABS: CoV2 Total Antibody Negative (Negative)
[2020-06-23] MEDS: PSYLLIUM 58.6% POWDER PACKET PO SCH (07:46)
[2020-06-23] MEDS: INSULIN ASPART 100 UNITS/ML 3 ML PEN SC SCH ×4 (07:48→20:25)
[2020-06-23] MEDS: VENLAFAXINE HCL XR 75 MG CAPXR PO SCH (07:51)
[2020-06-23] MEDS: carvediloL 6.25 MG TAB PO SCH ×2 (07:51→20:24)
[2020-06-23] MEDS: MYCOPHENOLATE SODIUM 180 MG TAB PO SCH ×2 (07:52→20:24)
[2020-06-23] MEDS: TAMSULOSIN HCL 0.4 MG CAP PO SCH ×2 (07:52→20:24)
[2020-06-23] MEDS: SIROLIMUS 0.5 MG TABLET PO SCH (07:53)
[2020-06-23] MEDS: POT PHOSPHATE MONOBASIC W/ SOD TAB PO SCH ×4 (07:53→20:24)
[2020-06-23] MEDS: predniSONE 5 MG TAB PO SCH (07:53)
[2020-06-23] MEDS: VALACYCLOVIR HCL 500 MG TABLET PO SCH ×3 (07:55→21:35)
[2020-06-23] MEDS: PANTOprazole 40 MG TAB PO SCH (07:56)
[2020-06-23] MEDS: allopurinoL 300 MG TAB PO SCH (07:56)
[2020-06-23 08:18] LABS: BUN Creatinine Ratio 10.2 (10-20); Calcium 9.6 mg/dl (8.5-10.1); Creatinine Clr Calc Pharmacy 53.7 ml/min; Est GFR (African American) 62.1; Est GFR (Non-African American) 53.6; Magnesium 1.8 mg/dl (1.8-2.4); Phosphorus 3.2 mg/dl (2.5-4.9); Potassium 3.9 mmol/L (3.5-5.1)
[2020-06-23] MEDS: BUTALBITAL/ACETAMIN/CAFFEINE TAB PO PRN (08:26)
--- NOTE | 2020-06-23 10:07 | Nephrology Progress Note ---
Date of Service June 23, 2020 Assessment & Plan (1) H/O kidney transplant: Mrs. Bowling remains relatively stable. Her renal function is stable on her current immunosuppression and with maintenance of hydration. She continues to have diarrhea. The etiology is unclear. However, since st art valacyclovir she has not had any significant fever spike. Her diarrhea has slowed somewhat but that is difficult to interpret given the fact that she is taking Imodium fairly regularly. Several stool studies remain pending. Until the results are known, I would continue her on the valacyclovir and maintain her state of hydration. She does have an anemia. It would be difficult to blame this on her renal function per se. Her hemoglobin has trended upward today. I suspect that her anemia is a combination of her acute illness and her immunosuppression. If necessary, we could give her Epogen. I would hold off on doing that now but it may be of some value to check her iron stores. (2) Fever: (3) Diarrhea: (4) Anemia: Admission and Anticipated Discharge Date Admission Date: June 16, 2020 Subjective Mrs. Bowling says that she is not feeling any better. However, she has had no recent night sweats and no significant fevers. She denies having any crampy abdominal pain. She does, however, continue to have 5 or 6 watery stools per day. She does admit that these are of a lower volume that she has had. She has had no hematochezia. She does continue taking Imodium at least 3 times a day which she thinks helps. He is concerned that without Imodium she would have more bowel movements in a day. After each bowel movement, she tends to develop some nausea. She has not had any vomiting. She remains on IV fluids. Her oral intake remains low. She has no symptoms of uremia or volume overload. She admits that she does feel somewhat "down." She denies that she has anything else other than the current illness that she is upset or concerned about. She remains on her usual immunosuppression although mycophenolate has been reduced by 50%. Physical Exam Physical Exam: On physical examination, Mrs. Bowling appears as a chronically ill woman but she does not appear to be in any acute distress. Somewhat of a depressed affect but the longer I talked with her, the better that seem to be. Her blood pressure was 136/69 with a pulse of 65 and regular. Respiratory rate is 17 and her pulse ox 99% on room air. Her temperature is 37.1 C. Her skin shows normal skin turgor. She has no rash or infiltrative skin disease. She has multiple scars on her abdomen from prior surgical procedures including scars in both lower quadrants from her renal transplants. Other abdominal scars are from prior colon surgery, a colostomy and its takedown. She has no palpable lymphadenopathy. Her head is normal. Eyes are grossly normal. She has no conjunctival icterus. The ocular fundi were not examined. Ears, nose, mouth and throat are unremarkable. Her oral mucous membranes are moist. Her neck is supple. She has no jugular venous distention, carotid bruit or thyromegaly. Her chest is clear to auscultation. I hear no wheezes, rales or rhonchi. Cardiac exam shows a regular rhythm. S1 and S2 are normal. She has no murmur or gallop. Her abdomen shows multiple scars. It is nontender. Her abdomen is somewhat doughy and there is a suggestion of a fluid wave. Bowel sounds are normal. They are not hyperactive. Extremities show no cyanosis, clubbing or peripheral edema. She has no joint swelling or erythema. She does have some chronic skin changes on her distal lower extremities. Peripheral pulses are intact. Her neurologic exam shows no lateralizing changes. Results & Data ([facility]) Vital Signs (Past 12 Hours) Vital Signs Temp Pulse Pulse Resp BP BP Pulse Ox 06/23/20 08:59 37.1 C 65 17 136/69 99 06/23/20 07:06 58 L 06/23/20 04:04 37 C 66 18 112/64 97 06/23/20 00:36 36.8 C 54 L 18 150/71 H 98 Laboratory Results Laboratory Results - last 24 hr 06/22/20 06/22/20 06/22/20 10:30 10:35 11:33 WBC RBC Hgb Hct MCV MCH MCHC RDW Std Deviation RDW Coeff of Valentina Plt Count MPV Sodium Potassium Chloride Carbon Dioxide Anion Gap BUN Creatinine Est Cr Clr Drug Dosing Est GFR ( Amer) Est GFR (Non-Af Amer) BUN/Creatinine Ratio Glucose POC Glucose 140 H Calcium Phosphorus Magnesium SARS-CoV-2 IgG & IgM Ab Miscellaneous Test Miscellaneous Test 2 Miscellaneous Test 3 Cancelled Pending 0906/22/20 06/22/20 13:46 15:15 16:36 WBC RBC Hgb Hct MCV MCH MCHC RDW Std Deviation RDW Coeff of Valentina Plt Count MPV Sodium Potassium Chloride Carbon Dioxide Anion Gap BUN Creatinine Est Cr Clr Drug Dosing Est GFR ( Amer) Est GFR (Non-Af Amer) BUN/Creatinine Ratio Glucose POC Glucose 232 H Calcium Phosphorus Magnesium SARS-CoV-2 IgG & IgM Ab Negative Miscellaneous Test Pending Miscellaneous Test 2 Pending Miscellaneous Test 3 06/22/20 06/23/20 06/23/20 20:12 07:25 07:25 WBC 4.23 L RBC 3.13 L Hgb 8.7 L Hct 27.9 L MCV 89.1 MCH 27.8 MCHC 31.2 L RDW Std Deviation 50.3 H RDW Coeff of Valentina 15.4 H Plt Count 307 MPV 8.8 Sodium 137 Potassium 3.9 Chloride 106 Carbon Dioxide 24 Anion Gap 7.0 BUN 11 Creatinine 1.11 Est Cr Clr Drug Dosing 53.7 Est GFR ( Amer) 62.1 Est GFR (Non-Af Amer) 53.6 BUN/Creatinine Ratio 10.2 Glucose 102 H POC Glucose 159 H Calcium 9.6 Phosphorus 3.2 Magnesium 1.8 SARS-CoV-2 IgG & IgM Ab Miscellaneous Test Miscellaneous Test 2 Miscellaneous Test 3 06/23/20 07:27 WBC RBC Hgb Hct MCV MCH MCHC RDW Std Deviation RDW Coeff of Valentina Plt Count MPV Sodium Potassium Chloride Carbon Dioxide Anion Gap BUN Creatinine Est Cr Clr Drug Dosing Est GFR ( Amer) Est GFR (Non-Af Amer) BUN/Creatinine Ratio Glucose POC Glucose 102 H Calcium Phosphorus Magnesium SARS-CoV-2 IgG & IgM Ab Miscellaneous Test Miscellaneous Test 2 Miscellaneous Test 3 PG Care Time/CCT Total # of Minutes Spent Total Time Spent with Patient: Total time spent is greater than 50% in coordination of care (as documented) at patient's floor/unit and/or counseling patient: Coding Level of Care Code 75974 Subseq Hosp Care Lvl 3 Diagnoses H/O kidney transplant Z94.0 Fever R50.9 Diarrhea R19.7 Diarrhea type: unspecified type Anemia D64.9 (1) Diarrhea Diarrhea type: unspecified type Qualified Code(s): R19.7 - Diarrhea, unspecified
[2020-06-23] MEDS: D5W AND 1/2NSS 1,000 ML IV SCH (11:37)
[2020-06-23] MEDS: ACETAMINOPHEN 325 MG TAB PO PRN (12:59)
[2020-06-23] MEDS: ROPINIROLE HCL 0.25 MG TABLET PO SCH (20:24)
[2020-06-23] MEDS: INSULIN DETEMIR FLEXPEN/FLEX TOUCH 100 UNITS/ML 3ML SQ SCH (20:25)
--- NOTE | 2020-06-23 23:27 | Hospitalist Progress Note ---
Date of Service June 23, 2020 Assessment & Plan (1) Diarrhea: Profuse, watery diarrhea in immunocompromised host s/p bilateral renal transplant, follows with [facility]. Patient also s/p RIGHT hemicolectomy with ileocolic anastomosis 2010 secondary to SBO * CT abdomen with oral contrast with liquid stool in colon, diarrheal illness. 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 Kirk which showed 3mm sessile polyp in rectum (of note, no polyps noted 2 months ago), removed with cold snare. Ileum normal, entire colon examined normal and biopsied. Diverticulosis in the sigmoid colon, descending and transverse colon. * Pathology no suggestive of CMV colitis * Valacyclovir empirically on 06/19 after discussion with Grocery Manager with patient reportedly feeling better --> will continue * Nephrology on consult * Added bicarb 75mew on 06/20 after discussion with Nephrology for non-anion gap metabolic acidosis with bicarb of 15 --> bicarb 23 on AM labs and removed from fluids. Aim >20 on AM labs. Will also decrease IVF to 75cc/hr given she is keeping up with oral fluids. * Urine legionella pending. Sputum if able * Sputum culture with few epi, few WBCs seen, few gram positive cocci, few gram negative bacilli. Possible normal patrick given epi but follow cx * Given Imodium and then patient refused as she had reduction in her diarrhea but then with recurrence, agreeable to continue and monitor response * Continue supportive treatment as outlined * No further fevers since low grade temp 06/20 37.6C, Tmax 39.5C on 06/19 * * Continue to have diarrhea, concern over possiblity of bacterial overgrowth, will discuss this with GI. Patient continues to have diarrhea, will increase immodium. * Added microsporidium, stool pH, and Aretha complex to look for other causes. COVID test is negative. (2) Fever: Waxing and waning nature --> afebrile from morning 06/17 up until 4am 06/19 with temp of 39.5C. 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 but nothing since that time--> likely some atelectasis and continued incentive spirometer encouraged * ESR, CRP elevated -- will repeat with am labs * CTAP as above * CXR with pleural effusions, no acute infectious process * CT Chest w/o with small L>R pleural effusions (mildly increased in size from 06/16), mild dependent bibasilar atelectasis, pleural-parenchymal scarrin L lung base with mild associated traction bronchiectasis of posterior basal segment left lower lobe, no adenopathy or airspace consolidation typical for pneumonia, multicystic liver * Will add sputum culture, legionella as above * BCx NGTD * Nephrology, ID, GI on consult as above * Tylenol IV prn * Valacyclovir renally dosed 1,000mg BID 06/19, continue * Stool studies, anaplasmosis PCR all have been negative * Sputum as above, urine -- follow * Continue supportive care as above (3) CKD (chronic kidney disease) stage 4, GFR 15-29 ml/min: * Cr 0.93 -- best it has been in YEARS * Avoid nephrotoxic agents --> TORADOL ordered by overnight team for headache -- would AVOID and utilize other agents. Success with oxycodone and will also help with diarrhea symptomatology * Follows with Dr. Roy locally. Nephrology on consult as above -- continue IV hydration, Valacyclovir as above * Follow labs -> Now at baseline. (4) H/O kidney transplant: x2 at [facility]. Follows locally with Dr. Roy. * Continue Sirolimus and Mycophenolate for transplant. * Stable. See above under CKD * Will need to keep close eye on pain RLQ as this is in region of her transplant. Non-tender to palpation at this current time. Instructed to inform nursing immediately if pain worsens. (5) Gastritis: * Recently diagnosed on EGD earlier this year * Continue Protonix 40 mg po daily (6) Diabetes mellitus: * Last [id number] on 05/08/20. No repeat at this time * Hold oral agents while inpatient * Continue Levemir 9u qHS * ISS with accuchecks * BSGs acceptable * Continue to monitor (7) Hypertension: * Blood pressures labile -- currently 113/70 * Carvedilol 18.75mg BID * Continue to monitor (8) Hyperlipidemia: * Chronic. Patient statin intolerant (9) Restless legs syndrome: * Chronic * Continue Ropinirole (10) Gout: * Chronic. Well controlled. Patient denies joint pain or inflammation at present * Continue Allopurinol (11) Hypophosphatemia: * Phos 1.4 -- ordered 24mmol Kphos IV as well as oral QID x 4 doses with resolution * Phos slightly low 2.4 on AM labs -- ordered oral replacement to be continued * AM labs (12) Hypokalemia: * -- secondary to diarrhea. Kphos as above * Resolved -- K 3.6 * BMP in AM given above (13) Depression: * Chronic * Continue Venlafaxine 75mg po qAM * Added ativan 0.5mg PO prn given increased anxiety/agitation in the hospital (14) Migraine: * No migraine reported today. 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 Diagnosed earlier this year. Also with IgA low at 39 * Gluten free diet as tolerated following colonoscopy (16) ATN (acute tubular necrosis): * Secondary to diarrhea/dehydration. Patient with non-anion gap metabolic acidosis * IVF as above * Nephrology on consult (17) Metabolic acidosis: * As above -- non-anion gap --> resolved as above * IVF changes as above * Continue to monitor on am labs (18) Insomnia: * trazodone HS prn for tonight * Ativan added prn as above under depression (19) DVT prophylaxis: * SCDs * Ambulation encouraged --> patient has been up out of bed frequently without assistance. Calves non-tender. No shortness of breath, 99% on RA Dispo: prolonged inpatient stay, supportive care and antidiarrheals as above Sputum cx pending, legionella urine Admission and Anticipated Discharge Date Admission Date: June 16, 2020 Subjective 60 yo female continues to have diarrhea. Review of Systems Review of Systems: All systems reviewed & are unremarkable except as noted in HPI & below Physical Exam Physical Exam: Constitutional: WD/WN, vitals as above Eyes: EOM intact bilaterally; no conjunctival abnormality ENMT: external ear and nose normal, oropharynx normal Neck: trachea midline, no thyromegaly normal visual inspection Respiratory: normal respiratory effort, lungs clear to auscultation no respiratory distress Cardiovascular: RRR, no murmur, no edema Gastrointestinal (Abdomen): Inspection/Auscultation: abdomen normal to inspection; abdomen not distended Musculoskeletal: no cyanosis or clubbing, extremities motor strength 5/5 Skin: no rashes, warm and dry Neurologic: moves all extremities and awake Psychiatric: Orientation: alert, oriented to person and cooperative Results & Data Results & [facility] ([facility]) Vital Signs (Past 12 Hours) Vital Signs Temp Pulse Pulse Resp BP Pulse Ox 06/23/20 19:19 36.6 C 64 17 159/77 H 98 06/23/20 15:43 36.9 C 59 L 17 118/71 97 06/23/20 15:00 57 L 06/23/20 11:56 36.7 C 72 17 135/75 98 PG Care Time/CCT Total # of Minutes Spent Total Time Spent with Patient: Total time spent is greater than 50% in coordination of care (as documented) at patient's floor/unit and/or counseling patient: Coding Level of Care Code 68389 Subseq Hosp Care Lvl 3 Diagnoses Diarrhea R19.7 Diarrhea type: unspecified type Fever R50.9 Fever type: unspecified CKD (chronic kidney disease) stage 4, GFR 15-29 ml/min N18.4 H/O kidney transplant Z94.0 Gastritis K29.70 Chronicity: unspecified Gastritis bleeding: without bleeding Gastritis type: unspecified gastritis Diabetes mellitus E11.22; Z79.4 Chronic kidney disease stage: unspecified stage Diabetes mellitus complication detail: with chronic kidney disease Diabetes mellitus complication status: with kidney complications Diabetes mellitus terminal carman insulin use: with mcfp use Diabetes mellitus type: type 2 Hypertension I10 Hypertension type: essential hypertension Hyperlipidemia E78.5 Hyperlipidemia type: unspecified Restless legs syndrome G25.81 Gout M10.9 Chronicity: unspecified Gout etiology: unspecified cause Gout site: unspecified site Hypophosphatemia E83.39 Hypokalemia E87.6 Depression F32.9 Depression Type: unspecified Migraine G43.909 Intractability: not intractable Migraine type: unspecified Status migrainosus presence: without status migrainosus Non-celiac gluten sensitivity K90.41 ATN (acute tubular necrosis) N17.0 Metabolic acidosis E87.2 Insomnia G47.00 DVT prophylaxis Z29.9 Time Spent (min) 35 (1) Fever Fever type: unspecified Qualified Code(s): R50.9 - Fever, unspecified (2) Diabetes mellitus Chronic kidney disease stage: unspecified stage Diabetes mellitus complication detail: with chronic kidney disease Diabetes mellitus complication status: with kidney complications Diabetes mellitus mcfp insulin use: with mcfp use Diabetes mellitus type: type 2 Qualified Code(s): E11.22 - Type 2 diabetes mellitus with diabetic chronic kidney disease; Z79.4 - custodial (current) use of insulin (3) Gout Chronicity: unspecified Gout etiology: unspecified cause Gout site: unspecified site Qualified Code(s): M10.9 - Gout, unspecified (4) Depression Depression Type: unspecified Qualified Code(s): F32.9 - Major depressive disorder, single episode, unspecified (5) Diarrhea Diarrhea type: unspecified type Qualified Code(s): R19.7 - Diarrhea, unspecified (6) Gastritis Chronicity: unspecified Gastritis bleeding: without bleeding Gastritis type: unspecified gastritis Qualified Code(s): K29.70 - Gastritis, unspecified, without bleeding (7) Migraine Intractability: not intractable Migraine type: unspecified Status migrainosus presence: without status migrainosus Qualified Code(s): G43.909 - Migraine, unspecified, not intractable, without status migrainosus (8) Hyperlipidemia Hyperlipidemia type: unspecified Qualified Code(s): E78.5 - Hyperlipidemia, unspecified (9) Hypertension Hypertension type: essential hypertension Qualified Code(s): I10 - Essential (primary) hypertension
[2020-06-24] MEDS: D5W AND 1/2NSS 1,000 ML IV SCH ×2 (00:54→14:39)
[2020-06-24] MEDS: LOPERAMIDE HCL 2 MG CAP PO SCH ×2 (02:32→05:52)
[2020-06-24] MEDS: VALACYCLOVIR HCL 500 MG TABLET PO SCH ×3 (08:34→21:14)
[2020-06-24] MEDS: POT PHOSPHATE MONOBASIC W/ SOD TAB PO SCH ×4 (08:34→21:16)
[2020-06-24] MEDS: MYCOPHENOLATE SODIUM 180 MG TAB PO SCH ×2 (08:35→21:13)
[2020-06-24] MEDS: carvediloL 6.25 MG TAB PO SCH ×2 (08:35→21:18)
[2020-06-24] MEDS: SIROLIMUS 0.5 MG TABLET PO SCH (08:36)
[2020-06-24] MEDS: PSYLLIUM 58.6% POWDER PACKET PO SCH (08:36)
[2020-06-24] MEDS: PANTOprazole 40 MG TAB PO SCH (08:37)
[2020-06-24] MEDS: predniSONE 5 MG TAB PO SCH (08:37)
[2020-06-24] MEDS: TAMSULOSIN HCL 0.4 MG CAP PO SCH ×2 (08:37→21:50)
[2020-06-24] MEDS: VENLAFAXINE HCL XR 150 MG CAPXR PO SCH (08:38)
[2020-06-24] MEDS: INSULIN ASPART 100 UNITS/ML 3 ML PEN SC SCH ×4 (08:40→21:12)
[2020-06-24] MEDS: LOPERAMIDE HCL 2 MG CAP PO PRN ×2 (09:03→15:54)
--- NOTE | 2020-06-24 10:28 | Gastroenterology Progress Note ---
Date of Service June 24, 2020 Assessment & Plan (1) Diarrhea: Patient is a 60 yo female with persistent diarrhea. Diff dx: diabetic diarrhea vs overflow diarrhea vs IBS-D vs SIBO vs other. -Discussed that Imodium could be used up to 8 tablets in 24 hours although she is apprehensive to use this medication for concern over obstruction as she reportedly carries a history. -Continue Metamucil as currently taking. -Recommend addition of Xifaxan 550 mg TID x 14 days which would cover both IBS-D and SIBO. She would like input from nephrology prior to starting this medication. -Recommend good blood glucose control and limit dairy products. -Continue supportive care. If you should have any further questions contact us at [phone] or [phone]. Admission and Anticipated Discharge Date Admission Date: June 16, 2020 Supervising Physician Co-Signing Physician Notes I personally evaluated the patient and agree with the findings as documented by ELZA Gary Exam: abd: soft, mild left sided tenderness, nd I suspect her symptoms are caused by IBS-D. She would benefit from a 2 week course of rifaximin TID along with a probiotic while on it. If there is too large of a concern for recurrent cdiff given her hx fecal transplant, etc. then can opt for dicyclomine 10 mg TID instead for treatment. Subjective Patient reporting ongoing diarrhea which is watery in nature. Frequency 5-6 times per day with urgency. No abdominal pain or bloody/black stools. Work up thus far has excluded any inflammatory and infectious etiology. She is apprehensive to use Imodium due to fear of a "bowel blockage" and has used only 2 tablets since admission. She states she does not wish to go home with ongoing diarrhea. Review of Systems Constitutional: no fever and no chills Gastrointestinal: as per Subjective / HPI Physical Exam Constitutional: WD/WN, vitals as above well developed and well nourished Eyes: EOM intact bilaterally Neck: normal visual inspection Respiratory: normal respiratory effort, lungs clear to auscultation Cardiovascular: RRR, no murmur, no edema Gastrointestinal (Abdomen): normal bowel sounds, soft, nontender, no hepatosplenomegaly Psychiatric: A+Ox3, euthymic affect Results & Data Results & Data ([facility]) Vital Signs (Past 12 Hours) Vital Signs Temp Pulse Pulse Resp BP Pulse Ox 09/30/20 07:41 37.1 C 64 18 143/80 H 96 06/24/20 07:17 66 06/24/20 00:23 54 L 06/23/20 23:00 36.6 C 57 L 20 143/59 H 97 Laboratory Results Abnormal lab results 06/23/20 06/23/20 06/23/20 Range/Units 11:35 16:53 20:19 POC Glucose 173 H 133 H 178 H (70-99) mg/dl 06/24/20 Range/Units 07:33 POC Glucose 106 H (70-99) mg/dl PG Care Time/CCT Total # of Minutes Spent Total Time Spent with Patient: Total time spent is greater than 50% in coordination of care (as documented) at patient's floor/unit and/or counseling patient: Coding Level of Care Code 02576 Subseq Hosp Care Lvl 3 Diagnoses Diarrhea R19.7 Diarrhea type: unspecified type (1) Diarrhea Diarrhea type: unspecified type Qualified Code(s): R19.7 - Diarrhea, unspecified
[2020-06-24] MEDS: ACETAMINOPHEN 325 MG TAB PO PRN (10:49)
--- NOTE | 2020-06-24 10:52 | Nephrology Progress Note ---
Date of Service June 24, 2020 Assessment & Plan (1) H/O kidney transplant: Mrs. Bowling remains stable. I am not sure the patient's major issue is 1 of SIBO. I will discuss further with GI. In the meantime, the only other change that I would make was a suggestion that I had when she came in and that is to reduce her mycophenolate sodium to 180 mg twice daily. I have ordered that change today. Until I speak further with GI I would hold off on the use of rifaximin. (2) Fever: (3) Diarrhea: Admission and Anticipated Discharge Date Admission Date: June 16, 2020 Subjective Mrs. Bowling says that she is feeling somewhat better today. She has not had any shaking chills or fevers. She has no headache. She has been ambulating in the [place] and attributes that ambulation to her feeling better. However, she continues to have diarrhea. She says that she has 5-6 small to medium volume watery stools per day. Her symptoms particularly occur after she has a meal, particularly her evening meal. Is associated nausea but no vomiting. She is taking Compazine. She is told by GI that her symptoms likely represent SIBO (small intestine bacterial overgrowth). Usually however that disorder is not associated with fever that is been characteristic for her symptoms. Since being on venlafaxine, she is not had a significant fever although her diarrhea, bloating and nausea persist. The pathology of her colon did not show the typical changes seen with CMV colitis. All other studies have been negative as well. Apparently, rifaximin 550 mg twice daily has been recommended. The patient has been told that this does not generally activate C. difficile colitis. However, my reading suggests otherwise. If it is to be used, she should take her Dificid with that as she has been doing. However, before we embark on that antibiotic it would be nice to have some type of documentation that this disorder is indeed the source of all of her symptoms. Theoretically, if she developed a "leaky bowel" associated with SIBO, theoretically, that might be associated with her fever. It would be unlikely that her fever would have responded to venlafaxine if it was associated with a leaky bowel syndrome. Otherwise, she seems to feel fine. She says that her urine output is good. She has no symptoms of uremia or volume overload. She has no other complaints. Her dose of venlafaxine was increased. She wonders whether or not that is the reason why she is feeling better in a psychologic sense. Physical Exam Physical Exam: On physical examination, Mrs. Bowling looks somewhat better and is certainly a bit more upbeat today than she has been for the past few days. Her blood pressure was 143/80. Her pulse is 64 and regular. Respiratory rate is 18 with a pulse ox of 96% on room air. Her temperature this morning is 37.1 degrees. Her skin shows normal skin turgor. She has no rash or infiltrative skin disease. She has multiple scars from prior surgical procedures particularly on her abdomen. She has no palpable lymphadenopathy. Her head is grossly normal. Eyes are grossly normal. She has no conjunctival icterus. The fundi were not examined. Ears, nose, mouth and throat are unremarkable. Oral mucous membranes are moist. Her neck is supple. She has no jugular venous dis tention, carotid bruit or thyromegaly. Her chest is clear to auscultation. Cardiac exam shows a regular rhythm. S1 and S2 are normal. She has a soft systolic murmur at the base radiating toward the neck. Her abdomen shows her scars. It is somewhat doughy in texture. It is not tender. She has a probable fluid wave. Bowel sounds are normal. She has renal transplants palpable in both lower quadrants. They are nontender. She has a soft bruit over the right lower quadrant transplant which is her most recent. I cannot feel her liver or spleen. Extremities show no cyanosis, clubbing or peripheral edema. She does have some chronic skin changes of venous stasis dermatitis on her distal lower extremities. Peripheral pulses are intact. Her neurologic exam is normal. Results & Data ([facility]) Vital Signs (Past 12 Hours) Vital Signs Temp Pulse Pulse Resp BP Pulse Ox 06/24/20 07:41 37.1 C 64 18 143/80 H 96 06/24/20 07:17 66 06/24/20 00:23 54 L 06/23/20 23:00 36.6 C 57 L 20 143/59 H 97 PG Care Time/CCT Total # of Minutes Spent Total Time Spent with Patient: Total time spent is greater than 50% in coordination of care (as documented) at patient's floor/unit and/or counseling patient: Coding Level of Care Code 82679 Subseq Hosp Care Lvl 3 Diagnoses H/O kidney transplant Z94.0 Fever R50.9 Diarrhea R19.7 Diarrhea type: unspecified type (1) Diarrhea Diarrhea type: unspecified type Qualified Code(s): R19.7 - Diarrhea, unspecified
[2020-06-24] MEDS: BUTALBITAL/ACETAMIN/CAFFEINE TAB PO PRN (12:51)
[2020-06-24] MEDS: OXYCODONE HCL IR 5 MG TAB (IMMEDIATE RELEASE) PO PRN (17:39)
[2020-06-24] MEDS: INSULIN DETEMIR FLEXPEN/FLEX TOUCH 100 UNITS/ML 3ML SQ SCH (21:12)
[2020-06-24] MEDS: ROPINIROLE HCL 0.25 MG TABLET PO SCH (21:14)
[2020-06-24] MEDS ORDERED: MoRPHine SULFATE 2 MG/ML CARP IV STA (21:30)
--- NOTE | 2020-06-24 21:39 | Hospitalist Progress Note ---
Date of Service June 24, 2020 Assessment & Plan (1) Diarrhea: Profuse, watery diarrhea in immunocompromised host s/p bilateral renal transplant, follows with [facility]. Patient also s/p RIGHT hemicolectomy with ileocolic anastomosis 2010 secondary to SBO * CT abdomen with oral contrast with liquid stool in colon, diarrheal illness. 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 Kirk which showed 3mm sessile polyp in rectum (of note, no polyps noted 2 months ago), removed with cold snare. Ileum normal, entire colon examined normal and biopsied. Diverticulosis in the sigmoid colon, descending and transverse colon. * Pathology no suggestive of CMV colitis * Valacyclovir empirically on 06/19 after discussion with Electronic Assembler with patient reportedly feeling better --> will continue * Nephrology on consult * Added bicarb 75mew on 06/20 after discussion with Nephrology for non-anion gap metabolic acidosis with bicarb of 15 --> bicarb 23 on AM labs and removed from fluids. Aim >20 on AM labs. Will also decrease IVF to 75cc/hr given she is keeping up with oral fluids. * Urine legionella pending. Sputum if able * Sputum culture with few epi, few WBCs seen, few gram positive cocci, few gram negative bacilli. Possible normal patrick given epi but follow cx * Given Imodium and then patient refused as she had reduction in her diarrhea but then with recurrence, agreeable to continue and monitor response * Continue supportive treatment as outlined * No further fevers since low grade temp 06/20 37.6C, Tmax 39.5C on 06/19 * * Continue to have diarrhea, concern over possiblity of bacterial overgrowth, will discuss this with GI. Patient continues to have diarrhea, will increase immodium. * -GI willing to do a trial, however nephro is hesitant to start antibiotic due to risk of c diff. * Patient would like to wait and see if she continues to improve as today she is feeling better. * Added microsporidium, stool pH, and Aretha complex to look for other causes. COVID test is negative. (2) Fever: Waxing and waning nature --> afebrile from morning 06/17 up until 4am 06/19 with temp of 39.5C. * Since that time only T 37.6C plate mill mill hand 06/20 but nothing since that time--> likely some atelectasis and continued incentive spirometer encouraged * ESR, CRP elevated -- will repeat with am labs * CTAP as above * CXR with pleural effusions, no acute infectious process * CT Chest w/o with small L>R pleural effusions (mildly increased in size from 06/16), mild dependent bibasilar atelectasis, pleural-parenchymal scarrin L lung base with mild associated traction bronchiectasis of posterior basal segment left lower lobe, no adenopathy or airspace consolidation typical for pneumonia, multicystic liver * Will add sputum culture, legionella as above * BCx NGTD * Nephrology, ID, GI on consult as above * Tylenol IV prn * Valacyclovir renally dosed 1,000mg BID 06/19, continue * Stool studies, anaplasmosis PCR all have been negative * Sputum as above, urine -- follow * Continue supportive care as above (3) CKD (chronic kidney disease) stage 4, GFR 15-29 ml/min: * Cr 0.93 -- best it has been in YEARS * Avoid nephrotoxic agents --> TORADOL ordered by overnight team for headache -- would AVOID and utilize other agents. Success with oxycodone and will also help with diarrhea symptomatology * Follows with Dr. Roy locally. Nephrology on consult as above -- continue IV hydration, Valacyclovir as above * Follow labs -> Now at baseline. (4) H/O kidney transplant: x2 at [place]. Follows locally with Dr. Roy. * Continue Sirolimus and Mycophenolate for transplant. * Stable. See above under CKD * Will need to keep close eye on pain RLQ as this is in region of her transplant. Non-tender to palpation at this current time. Instructed to inform nursing immediately if pain worsens. (5) Gastritis: * Recently diagnosed on EGD earlier this year * Continue Protonix 40 mg po daily (6) Diabetes mellitus: * Last [id number]=3.8 on 05/08/20. No repeat at this time * Hold oral agents while inpatient * Continue Levemir 9u qHS * ISS with accuchecks * BSGs acceptable * Continue to monitor (7) Hypertension: * Blood pressures labile -- currently 113/70 * Carvedilol 18.75mg BID * Continue to monitor (8) Hyperlipidemia: * Chronic. Patient statin intolerant (9) Restless legs syndrome: * Chronic * Continue Ropinirole (10) Gout: * Chronic. Well controlled. Patient denies joint pain or inflammation at present * Continue Allopurinol (11) Hypophosphatemia: * Phos 1.4 -- ordered 24mmol Kphos IV as well as oral QID x 4 doses with resolution * Phos slightly low 2.4 on AM labs -- ordered oral replacement to be continued * AM labs (12) Hypokalemia: * -- secondary to diarrhea. Kphos as above * Resolved -- K 3.6 * BMP in AM given above (13) Depression: * Chronic * Continue Venlafaxine 75mg po qAM * Added ativan 0.5mg PO prn given increased anxiety/agitation in the hospital (14) Migraine: * No migraine reported today. 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 Diagnosed earlier this year. Also with IgA low at 39 * Gluten free diet as tolerated following colonoscopy (16) ATN (acute tubular necrosis): * Secondary to diarrhea/dehydration. Patient with non-anion gap metabolic acidosis * IVF as above * Nephrology on consult (17) Metabolic acidosis: * As above -- non-anion gap --> resolved as above * IVF changes as above * Continue to monitor on am labs (18) Insomnia: * trazodone HS prn for tonight * Ativan added prn as above under depression (19) DVT prophylaxis: * SCDs * Ambulation encouraged --> patient has been up out of bed frequently without as sistance. Calves non-tender. No shortness of breath, 99% on RA Dispo: prolonged inpatient stay, supportive care and antidiarrheals as above Sputum cx pending, legionella urine Admission and Anticipated Discharge Date Admission Date: June 16, 2020 Subjective 60 yo female reports feeling mildly better today. She only has had 3 bowel movements today in the afternoon vs 5 yesterday. Review of Systems Review of Systems: All systems reviewed & are unremarkable except as noted in HPI & below Physical Exam Physical Exam: Constitutional: WD/WN, vitals as above Eyes: EOM intact bilaterally; no conjunctival abnormality ENMT: external ear and nose normal, oropharynx normal Neck: trachea midline, no thyromegaly normal visual inspection Respiratory: normal respiratory effort, lungs clear to auscultation no respiratory distress Cardiovascular: RRR, no murmur, no edema Gastrointestinal (Abdomen): Inspection/Auscultation: abdomen normal to inspection; abdomen not distended Musculoskeletal: no cyanosis or clubbing, extremities motor strength 5/5 Skin: no rashes, warm and dry Neurologic: moves all extremities and awake Psychiatric: Orientation: alert, oriented to person and cooperative Results & Data Results & Data ([facility]) Vital Signs (Past 12 Hours) Vital Signs Temp Pulse Pulse Resp BP Pulse Ox 06/24/20 21:17 57 L 155/72 H 06/24/20 19:02 36.5 C 57 L 18 139/71 99 06/24/20 15:09 36.6 C 65 18 123/76 97 06/24/20 15:00 64 06/24/20 11:31 36.8 C 72 18 114/66 96 PG Care Time/CCT Total # of Minutes Spent Total Time Spent with Patient: Total time spent is greater than 50% in coordination of care (as documented) at patient's floor/unit and/or counseling patient: Coding Level of Care Code 87059 Subseq Hosp Care Lvl 3 Diagnoses Diarrhea R19.7 Diarrhea type: unspecified type Fever R50.9 Fever type: unspecified CKD (chronic kidney disease) stage 4, GFR 15-29 ml/min N18.4 H/O kidney transplant Z94.0 Gastritis K29.70 Chronicity: unspecified Gastritis bleeding: without bleeding Gastritis type: unspecified gastritis Diabetes mellitus E11.22; Z79.4 Chronic kidney disease stage: unspecified stage Diabetes mellitus complication detail: with chronic kidney disease Diabetes mellitus complication status: with kidney complications Diabetes mellitus penitentiary insulin use: with penitentiary use Diabetes mellitus type: type 2 Hypertension I10 Hypertension type: essential hypertension Hyperlipidemia E78.5 Hyperlipidemia type: unspecified Restless legs syndrome G25.81 Gout M10.9 Chronicity: unspecified Gout etiology: unspecified cause Gout site: unspecified site Hypophosphatemia E83.39 Hypokalemia E87.6 Depression F32.9 Depression Type: unspecified Migraine G43.909 Intractability: not intractable Migraine type: unspecified Status migrainosus presence: without status migrainosus Non-celiac gluten sensitivity K90.41 ATN (acute tubular necrosis) N17.0 Metabolic acidosis E87.2 Insomnia G47.00 DVT prophylaxis Z29.9 Time Spent (min) 25 (1) Fever Fever type: unspecified Qualified Code(s): R50.9 - Fever, unspecified (2) Diabetes mellitus Chronic kidney disease stage: unspecified stage Diabetes mellitus complication detail: with chronic kidney disease Diabetes mellitus complication status: with kidney complications Diabetes mellitus manager long term care insulin use: with penitentiary use Diabetes mellitus type: type 2 Qualified Code(s): E11.22 - Type 2 diabetes mellitus with diabetic chronic kidney disease; Z79.4 - termite exterminator helper (current) use of insulin (3) Gout Chronicity: unspecified Gout etiology: unspecified cause Gout site: unspecified site Qualified Code(s): M10.9 - Gout, unspecified (4) Depression Depression Type: unspecified Qualified Code(s): F32.9 - Major depressive disorder, single episode, unspecified (5) Diarrhea Diarrhea type: unspecified type Qualified Code(s): R19.7 - Diarrhea, unspecified (6) Gastritis Chronicity: unspecified Gastritis bleeding: without bleeding Gastritis type: unspecified gastritis Qualified Code(s): K29.70 - Gastritis, unspecified, without bleeding (7) Migraine Intractability: not intractable Migraine type: unspecified Status migrai nosus presence: without status migrainosus Qualified Code(s): G43.909 - Migraine, unspecified, not intractable, without status migrainosus (8) Hyperlipidemia Hyperlipidemia type: unspecified Qualified Code(s): E78.5 - Hyperlipidemia, unspecified (9) Hypertension Hypertension type: essential hypertension Qualified Code(s): I10 - Essential (primary) hypertension
[2020-06-25] MEDS: D5W AND 1/2NSS 1,000 ML IV SCH ×2 (02:21→17:34)
[2020-06-25] MEDS: ACETAMINOPHEN 325 MG TAB PO PRN (05:20)
[2020-06-25] MEDS: allopurinoL 300 MG TAB PO SCH (08:27)
[2020-06-25] MEDS: TAMSULOSIN HCL 0.4 MG CAP PO SCH ×2 (08:27→20:40)
[2020-06-25] MEDS: VALACYCLOVIR HCL 500 MG TABLET PO SCH ×3 (08:27→20:41)
[2020-06-25] MEDS: POT PHOSPHATE MONOBASIC W/ SOD TAB PO SCH ×4 (08:28→20:42)
[2020-06-25] MEDS: MYCOPHENOLATE SODIUM 180 MG TAB PO SCH ×2 (08:28→20:40)
[2020-06-25] MEDS: carvediloL 6.25 MG TAB PO SCH ×2 (08:28→20:42)
[2020-06-25] MEDS: SIROLIMUS 0.5 MG TABLET PO SCH (08:29)
[2020-06-25] MEDS: predniSONE 5 MG TAB PO SCH (08:29)
[2020-06-25] MEDS: VENLAFAXINE HCL XR 150 MG CAPXR PO SCH (08:30)
[2020-06-25] MEDS: INSULIN ASPART 100 UNITS/ML 3 ML PEN SC SCH ×4 (08:30→20:41)
[2020-06-25] MEDS: PANTOprazole 40 MG TAB PO SCH (08:30)
[2020-06-25] MEDS: PSYLLIUM 58.6% POWDER PACKET PO SCH (08:36)
[2020-06-25] MEDS: LOPERAMIDE HCL 2 MG CAP PO PRN (08:56)
--- NOTE | 2020-06-25 09:46 | Nephrology Progress Note ---
Date of Service June 25, 2020 Assessment & Plan (1) H/O kidney transplant: Mrs. Bowling seems stable. She is afebrile. However, she continues to have low volume watery diarrhea. Her stool volume, by her description, seems to be improved. Her abdominal discomfort is new. Not convinced that this is coming from her stomach or bowel based on her exam and the absence of any other new symptoms. She seems to be tolerating an increase in her diet. Her CMV special stains of her colon are negative for CMV. However, since being on valacyclovir, at least her fever has resolved. Given the fact that she has had a recent diarrheal illness, I would still be concerned about the potential that mycophenolate sodium may be contributing to her diarrhea. She is taking that because of problems with mycophenolate mofetil. In my experience I am still seeing people with mycophenolate sodium having diarrhea. This may be worse because of a coexisting problem that she had when she came in to the hospital. I reviewed her previous slides from her stomach and small bowel biopsy. Her stomach biopsy done in May did show evidence of gastritis. There were no diagnostic abnormalities identified in her duodenum. For now, I would continue the same immunosuppression and continue with valacy clovir. I will speak with GI about any other intervention including the additional use of antibiotics. (2) Fever: (3) Diarrhea: (4) Anemia: Admission and Anticipated Discharge Date Admission Date: June 16, 2020 Supervising Physician Co-Signing Physician Notes I dictated this entire note personally. Subjective Mrs. Bowling says that she is feeling somewhat better this morning. However, she has had 2 relatively low volume watery bowel movements this morning. Additionally, she had some left upper quadrant abdominal pain last night. She was given morphine for the pain with relief. She had no shaking chills or fevers. She is not noted any blood in her stools. She continues to use Imodium frequently, usually after a watery bowel movement. This morning, she says that she is feeling relatively well. She was able to eat breakfast. She has no nausea. Special stains for CMV are reported as negative. She has no symptoms of uremia or volume overload. Of note is the fact that this is only the end of the first day that she has been taking mycophenolate sodium in a dose of only 180 mg daily. She has no target organ symptoms of hypertension nor she had any symptoms of cardiovascular, cerebrovascular or peripheral vascular disease. Her review of systems otherwise seems unremarkable. Physical Exam Physical Exam: On physical examination, Mrs. Bowling appears relatively healthy and well. She was up in her room. Her blood pressure was 146/69 seated with a pulse of 60 and regular. Respiratory rate is 18 with an oxygen saturation of 97%. She is afebrile (36.8). Her skin shows normal skin turgor. She has scars from prior surgical procedures particularly on her abdomen. She has no palpable lymphadenopathy. Her head is normal. Eyes are grossly normal. She has no conjunctival icterus. The fundi were not examined. Ears, nose, mouth and throat are unremarkable. Oral mucous membranes are moist. Her neck is supple. There is no jugular venous distention, carotid bruit or thyromegaly. Her chest is clear to auscultation. She has no wheezes, rales or rhonchi. Cardiac exam shows a regular rhythm. S1 and S2 are normal. I hear no murmur or gallop. Her abdomen shows the scars. She has some left upper quadrant tenderness to palpation with some voluntary guarding. Bowel sounds seem normal. She has no abdominal bruits. Her renal transplant is palpable in the right lower quadrant. There is a soft bruit over the graft. She has a palpable kidney transplant in the left lower quadrant as well. There is no bruit over that transplant. Extremities show no cyanosis, clubbing or peripheral edema. Peripheral pulses are intact. She does have some changes of venous stasis in her distal lower e xtremities. Her neurologic exam is unremarkable. Results & Data ([facility]) Vital Signs (Past 12 Hours) Vital Signs Temp Pulse Pulse Resp BP Pulse Ox 06/25/20 07:13 36.8 C 60 18 146/69 H 97 06/25/20 07:05 59 L 06/25/20 00:13 56 L 06/24/20 23:00 36.5 C 56 L 18 165/76 H 98 (1) Diarrhea Diarrhea type: unspecified type Qualified Code(s): R19.7 - Diarrhea, unspecified
--- NOTE | 2020-06-25 09:51 | Nephrology Progress Note ---
Date of Service June 24, 2020 Assessment & Plan Admission and Anticipated Discharge Date Admission Date: June 16, 2020 Results & Data ([facility]) Vital Signs (Past 12 Hours) Vital Signs Temp Pulse Pulse Resp BP Pulse Ox 06/24/20 07:41 37.1 C 64 18 143/80 H 96 06/24/20 07:17 66 06/24/20 00:23 54 L 06/23/20 23:00 36.6 C 57 L 20 143/59 H 97 PG Care Time/CCT Total # of Minutes Spent Total Time Spent with Patient: Total time spent is greater than 50% in coordination of care (as documented) at patient's floor/unit and/or counseling patient: Coding Level of Care Code 84410 Subseq Hosp Care Lvl 3
[2020-06-25] MEDS: OXYCODONE HCL IR 5 MG TAB (IMMEDIATE RELEASE) PO PRN (15:18)
[2020-06-25] MEDS ORDERED: MoRPHine SULFATE 2 MG/ML CARP IV PRN (15:28)
[2020-06-25] MEDS: ROPINIROLE HCL 0.25 MG TABLET PO SCH (20:40)
[2020-06-25] MEDS: INSULIN DETEMIR FLEXPEN/FLEX TOUCH 100 UNITS/ML 3ML SQ SCH (20:42)
--- NOTE | 2020-06-25 22:43 | Hospitalist Progress Note ---
Date of Service June 25, 2020 Assessment & Plan (1) Diarrhea: Profuse, watery diarrhea in immunocompromised host s/p bilateral renal transplant, follows with [facility]. Patient also s/p RIGHT hemicolectomy with ileocolic anastomosis 2010 secondary to SBO * CT abdomen with oral contrast with liquid stool in colon, diarrheal illness. 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 Kirk which showed 3mm sessile polyp in rectum (of note, no polyps noted 2 months ago), removed with cold snare. Ileum normal, entire colon examined normal and biopsied. Diverticulosis in the sigmoid colon, descending and transverse colon. * Pathology no suggestive of CMV colitis * Valacyclovir empirically on 06/19 after discussion with Senior It Project Manager with patient reportedly feeling better --> will continue * Nephrology on consult * Added bicarb 75mew on 06/20 after discussion with Nephrology for non-anion gap metabolic acidosis with bicarb of 15 --> bicarb 23 on AM labs and removed from fluids. Aim >20 on AM labs. Will also decrease IVF to 75cc/hr given she is keeping up with oral fluids. * Urine legionella pending. Sputum if able * Sputum culture with few epi, few WBCs seen, few gram positive cocci, few gram negative bacilli. Possible normal patrick given epi but follow cx * Given Imodium and then patient refused as she had reduction in her diarrhea but then with recurrence, agreeable to continue and monitor response * Continue supportive treatment as outlined * No further fevers since low grade temp 06/20 37.6C, Tmax 39.5C on 06/19 * * Continue to have diarrhea, concern over possiblity of bacterial overgrowth, will discuss this with GI. Patient continues to have diarrhea, will increase immodium. * -GI willing to do a trial, however nephro is hesitant to start antibiotic due to risk of c diff. * Patient would like to wait and see if she continues to improve as today she is feeling better. * Added microsporidium, stool pH, and Aretha complex to look for other causes. COVID test is negative. * * Diarrhea is still present, looking into other possible diagnosis, however patient wants to continue to treat for possible viral illness. * Diarrhea is better today though, however immodium was also increased. * explained to patient that morphine is not good for abdominal pain. Patient wants to try for short term. * (2) Fever: Waxing and waning nature --> afebrile from morning 06/17 up until 4am 06/19 with temp of 39.5C. * Since that time only T 37.6C rigger chief 06/20 but nothing since that time--> likely some atelectasis and continued incentive spirometer encouraged * ESR, CRP elevated -- will repeat with am labs * CTAP as above * CXR with pleural effusions, no acute infectious process * CT Chest w/o with small L>R pleural effusions (mildly increased in size from 06/16), mild dependent bibasilar atelectasis, pleural-parenchymal scarrin L lung base with mild associated traction bronchiectasis of posterior basal segment left lower lobe, no adenopathy or airspace consolidation typical for pneumonia, multicystic liver * Will add sputum culture, legionella as above * BCx NGTD * Nephrology, ID, GI on consult as above * Tylenol IV prn * Valacyclovir renally dosed 1,000mg BID 06/19, continue * Stool studies, anaplasmosis PCR all have been negative * Sputum as above, urine -- follow * Continue supportive care as above (3) CKD (chronic kidney disease) stage 4, GFR 15-29 ml/min: * Cr 0.93 -- best it has been in YEARS * Avoid nephrotoxic agents --> TORADOL ordered by overnight team for headache -- would AVOID and utilize other agents. Success with oxycodone and will also help with diarrhea symptomatology * Follows with Dr. Roy locally. Nephrology on consult as above -- continue IV hydration, Valacyclovir as above * Follow labs -> Now at baseline. (4) H/O kidney transplant: x2 at [facility]. Follows locally with Dr. Roy. * Continue Sirolimus and Mycophenolate for transplant. * Stable. See above under CKD * Will need to keep close eye on pain RLQ as this is in region of her transplant. Non-tender to palpation at this current time. Instructed to inform nursing immediately if pain worsens. (5) Gastritis: * Recently diagnosed on EGD earlier this year * Continue Protonix 40 mg po daily (6) Diabetes mellitus: * Last WksL9N=5.8 on 05/08/20. No repeat at this time * Hold oral agents while inpatient * Continue Levemir 9u qHS * ISS with accuchecks * BSGs acceptable * Continue to monitor (7) Hypertension: * Blood pressures labile -- currently 113/70 * Carvedilol 18.75mg BID * Continue to monitor (8) Hyperlipidemia: * Chronic. Patient statin intolerant (9) Restless legs syndrome: * Chronic * Continue Ropinirole (10) Gout: * Chronic. Well controlled. Patient denies joint pain or inflammation at present * Continue Allopurinol (11) Hypophosphatemia: * Phos 1.4 -- ordered 24mmol Kphos IV as well as oral QID x 4 doses with resolution * Phos slightly low 2.4 on AM labs -- ordered oral replacement to be continued * AM labs (12) Hypokalemia: * -- secondary to diarrhea. Kphos as above * Resolved -- K 3.6 * BMP in AM given above (13) Depression: * Chronic * Continue Venlafaxine 75mg po qAM * Added ativan 0.5mg PO prn given increased anxiety/agitation in the hospital (14) Migraine: * No migraine reported today. 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 Diagnosed earlier this year. Also with IgA low at 39 * Gluten free diet as tolerated following colonoscopy (16) ATN (acute tubular necrosis): * Secondary to diarrhea/dehydration. Patient with non-anion gap metabolic acidosis * IVF as above * Nephrology on consult (17) Metabolic acidosis: * As above -- non-anion gap --> resolved as above * IVF changes as above * Continue to monitor on am labs (18) Insomnia: * trazodone HS prn for tonight * Ativan added prn as above under depression (19) DVT prophylaxis: * SCDs * Ambulation encouraged --> patient has been up out of bed frequently without assistance. Calves non-tender. No shortness of breath, 99% on RA Dispo: prolonged inpatient stay, supportive care and antidiarrheals as above Sputum cx pending, legionella urine Admission and Anticipated Discharge Date Admission Date: June 16, 2020 Subjective Patient reports her diarrhea is still present but mildly better, she has had 3 BM today. They are still loose. She also reports having left upper quadrant pain and is requesting morphine. Review of Systems Review of Systems: All systems reviewed & are unremarkable except as noted in HPI & below Physical Exam Physical Exam: Constitutional: WD/WN, vitals as above Eyes: EOM intact bilaterally; no conjunctival abnormality ENMT: external ear and nose normal, oropharynx normal Neck: trachea midline, no thyromegaly normal visual inspection Respiratory: normal respiratory effort, lungs clear to auscultation no respiratory distress Cardiovascular: RRR, no murmur, no edema Gastrointestinal (Abdomen): Inspection/Auscultation: abdomen normal to inspection; abdomen not distended Musculoskeletal: no cyanosis or clubbing, extremities motor strength 5/5 Skin: no rashes, warm and dry Neurologic: moves all extremities and awake Psychiatric: Orientation: alert, oriented to person and cooperative Results & Data Results & Data ([facility]) Vital Signs (Past 12 Hours) Vital Signs Temp Pulse Resp BP Pulse Ox 06/25/20 20:39 54 L 152/70 H 06/25/20 20:19 36.5 C 68 20 150/76 H 96 06/25/20 15:00 36.6 C 58 L 20 147/70 H 99 06/25/20 11:20 36.5 C 57 L 18 146/64 H 100 PG Care Time/CCT Total # of Minutes Spent Total Time Spent with Patient: Total time spent is greater than 50% in coordination of care (as documented) at patient's floor/unit and/or counseling patient: Coding Level of Care Code 36940 Subseq Hosp Care Lvl 3 Diagnoses Diarrhea R19.7 Diarrhea type: unspecified type Fever R50.9 Fever type: unspecified CKD (chronic kidney disease) stage 4, GFR 15-29 ml/min N18.4 H/O kidney transplant Z94.0 Gastritis K29.70 Chronicity: unspecified Gastritis bleeding: without bleeding Gastritis type: unspecified gastritis Diabetes mellitus E11.22; Z79.4 Chronic kidney disease stage: unspecified stage Diabetes mellitus complication detail: with chronic kidney disease Diabetes mellitus complication status: with kidney complications Diabetes mellitus terminal supervisor insulin use: with mcc use Diabetes mellitus type: type 2 Hypertension I10 Hypertension type: essential hypertension Hyperlipidemia E78.5 Hyperlipidemia type: unspecified Restless legs syndrome G25.81 Gout M10.9 Chronicity: unspecified Gout etiology: unspecified cause Gout site: unspecified site Hypophosphatemia E83.39 Hypokalemia E87.6 Depression F32.9 Depression Type: unspecified Migraine G43.909 Intractability: not intractable Migraine type: unspecified Status migrainosus presence: without status migrainosus Non-celiac gluten sensitivity K90.41 ATN (acute tubular necrosis) N17.0 Metabolic acidosis E87.2 Insomnia G47.00 DVT prophylaxis Z29.9 Time Spent (min) 35 (1) Fever Fever type: unspecified Qualified Code(s): R50.9 - Fever, unspecified (2) Diabetes mellitus Chronic kidney disease stage: unspecified stage Diabetes mellitus complication detail: with chronic kidney disease Diabetes mellitus complication status: with kidney complications Diabetes mellitus mcc insulin use: with mcc use Diabetes mellitus type: type 2 Qualified Code(s): E11.22 - Type 2 diabetes mellitus with diabetic chronic kidney disease; Z79.4 - director long term care (current) use of insulin (3) Gout Chronicity: unspecified Gout etiology: unspecified cause Gout site: unspecified site Qualified Code(s): M10.9 - Gout, unspecified (4) Depression Depression Type: unspecified Qualified Code(s): F32.9 - Major depressive disorder, single episode, unspecified (5) Diarrhea Diarrhea type: unspecified type Qualified Code(s): R19.7 - Diarrhea, unspecified (6) Gastritis Chronicity: unspecified Gastritis bleeding: without bleeding Gastritis type: unspecified gastritis Qualified Code(s): K29.70 - Gastritis, unspecified, without bleeding (7) Migraine Intractability: not intractable Migraine type: unspecified Status migrainosus presence: without status migrainosus Qualified Code(s): G43.909 - Migraine, unspecified, not intractable, without status migrainosus (8) Hyperlipidemia Hyperlipidemia type: unspecified Qualified Code(s): E78.5 - Hyperlipidemia, unspecified (9) Hypertension Hypertension type: essential hypertension Qualified Code(s): I10 - Essential (primary) hypertension
[2020-06-26] MEDS: MYCOPHENOLATE SODIUM 180 MG TAB PO SCH (08:13)
[2020-06-26] MEDS: TAMSULOSIN HCL 0.4 MG CAP PO SCH (08:13)
[2020-06-26] MEDS: D5W AND 1/2NSS 1,000 ML IV SCH (08:13)
[2020-06-26] MEDS: carvediloL 6.25 MG TAB PO SCH (08:14)
[2020-06-26] MEDS: VALACYCLOVIR HCL 500 MG TABLET PO SCH (08:14)
[2020-06-26] MEDS: VENLAFAXINE HCL XR 150 MG CAPXR PO SCH (08:14)
[2020-06-26] MEDS: predniSONE 5 MG TAB PO SCH (08:14)
[2020-06-26] MEDS: SIROLIMUS 0.5 MG TABLET PO SCH (08:15)
[2020-06-26] MEDS: POT PHOSPHATE MONOBASIC W/ SOD TAB PO SCH ×2 (08:15→12:48)
[2020-06-26] MEDS: INSULIN ASPART 100 UNITS/ML 3 ML PEN SC SCH ×2 (08:16→12:48)
[2020-06-26] MEDS: PSYLLIUM 58.6% POWDER PACKET PO SCH (08:19)
[2020-06-26] MEDS: PANTOprazole 40 MG TAB PO SCH (08:19)
--- NOTE | 2020-06-26 09:58 | Nephrology Progress Note ---
Date of Service June 26, 2020 Assessment & Plan (1) Renal transplant recipient: Doing quite well at the current time. Temporally, her fever went away with the addition of valacyclovir. However, diarrhea persisted but that seemed to vivi primarily when we reduced her dose of mycophenolate sodium to 180 mg twice daily. She is IgG positive for CMV. This might have been reactivation of CMV that began her febrile illness. However, CMV was not recognized on her colon biopsies. However, that would not rule it out as a potential cause of her symptomatology. Nonetheless, on valacyclovir and with a reduction in her dose of mycophenolate sodium all of the symptoms leading up to this hospitalization appear resolved. When last checked, her renal function was quite normal with hydration. Her systolic blood pressure is minimally elevated. Blood sugars have been within an acceptable range. I think it is safe to discharge her to home. She can call us if she has any recurrent diarrhea. I would discharge her on all of her usual medications although I would reduce her mycophenolate sodium to 180 mg twice daily until her follow-up with me in about 2 weeks. Additionally, I would continue her valacyclovir 1 g twice daily for the next week. No other recommended changes. I discussed these recommendations with Dr. Carlin, her transplant hydrostatic tubing tester at [facility] in [place]. He agrees with the plan. (2) Diarrhea: (3) Fever: Admission and Anticipated Discharge Date Admission Date: June 16, 2020 Subjective Mrs. Bowling says that she is feeling much better today. She has not had a diarrheal stool since yesterday. She said that she had a formed bowel movement this morning. She denies having any abdominal pain. She has no nausea. She has had no chills. She has had no fevers or sweats. She has no symptoms of infection, rejection, volume overload or uremia. Her urine output is quite good. She has been maintained with IV fluids for hydration. A review of her pathology from an EGD done earlier this year at a time when she was complaining of some problems with diarrhea and nausea showed evidence of mild acute gastritis involving her stomach. Duodenal biopsies had no pathologic diagnosis. Currently, all stool studies are negative. She does have a strongly positive IgG antibody to CMV. Her fevers seem to vivi at the time that she was started on valacyclovir. However, she continued to have diarrhea. She was getting mycophenolate Moffa ~360 mg twice daily. 2 days ago, we reduce the dose to 180 mg twice daily. Since then, as noted above her diarrhea seems to have abated. He has had an occasional dose of morphine for some upper abdominal discomfort but even after that she continued to have some watery stools. Additionally she was getting Metamucil. That was held by the nursing staff. Nonetheless, at the current time she is not having any abdominal discomfort or watery stools. Physical Exam Physical Exam: On physical exam at the current time, she appears to be at her baseline. Her blood pressure is 151/80 with a pulse of 66 and regular. Respiratory rate is 18 with an oxygen saturation of 100% on room air. She is afebrile (36.8 degrees). Her skin shows no rash or infiltrative skin disease. She has no palpable lymphadenopathy. Her head is grossly normal. Eyes are grossly normal. She has no conjunctival icterus. Ears, nose, mouth and throat are all unremarkable. Her oral mucous membranes are moist. Her neck is supple. There is no jugular venous distention, carotid bruit or thyromegaly. Her chest is clear to auscultation. Cardiac exam shows a regular rhythm. S1 and S2 are normal. There is no murmur or gallop. Her abdomen shows multiple scars from prior surgical procedures. It is nontender. Bowel sounds are normal. Kidney transplant are palpable in both lower quadrants. They are both nontender. There is a soft bruit over her recent right lower quadrant transplant. I do not feel her liver or spleen. She does have a questionable abdominal fluid wave. Extremities show no cyanosis, clubbing or peripheral edema. She has chronic skin changes on her distal lower extremities. Peripheral pulses are intact. Her neurologic exam shows no lateralizing changes. Results & Data ([facility]) Vital Signs (Past 12 Hours) Vital Signs Temp Pulse Pulse Resp BP Pulse Ox 06/26/20 07:24 66 06/26/20 04:51 62 06/26/20 04:03 36.8 C 66 18 151/80 H 100 06/25/20 23:00 36.6 C 67 18 127/64 98 PG Care Time/CCT Total # of Minutes Spent Total Time Spent with Patient: Total time spent is greater than 50% in coordination of care (as documented) at patient's floor/unit and/or counseling patient: 35 Coding Level of Care Code 22334 Subseq Hosp Care Lvl 3 Diagnoses Renal transplant recipient Z94.0 Diarrhea R19.7 Fever R50.9 Fever type: unspecified (1) Fever Fever type: unspecified Qualified Code(s): R50.9 - Fever, unspecified
[2020-06-26] MEDS: PROCHLORPERAZINE 5 MG in SYRINGE 4 ML IV PRN (11:36)
[2020-06-30 23:00] LABS: Legionella Culture Source SPUTUM
--- NOTE | 2020-07-03 07:50 | Discharge Summary ---
Date of Service June 26, 2020 Admission HPI Per Admitting Provider Tia Bowling is a 60yo female with history of renal transplant x 2, HTN, DM, HLP presenting at request of her PCP for workup of fever. Patient reports developing fever and chills on 06/11/20. She felt fine on 06/12/20 then again developed fever on 06/13/20 as well as diarrhea. She reports her fever being 101 - 102. It is temporarily relieved by Tylenol but returns just prior to the next dose of Tylenol. Her last fever was recorded today at 12:30, she does not recall how high. Her diarrhea has been constant over the last 48 hours. She reports copious amount of watery diarrhea. No blood/mucus. She has night time symptoms, +fecal incontinence, no relation to meals or PO intake. She has no abdominal pain, gas or pain with bowel movements. She does report a significant amount of bloating and abdominal distention. Patient denies recent travel. No sick contacts or contacts with similar symptoms. No ingestion of raw/undercooked food. She drinks bottled water. Patient does get a migraine with her fever. She is complaining of chills, body aches, fatigue and poor appetite, occasional nausea. She denies neck stiffness, ear pain, dental or facial pain, sore throat, cough, SOB, abdominal pain, vomiting, rashes, joint pain/inflammation. Denies tick exposure. No concerns for Covid-19. She had a Covid-19 test performed on 06/13/20 that was negative. Patient was treated for a Enterococcus faecalis UTI in April. She was admitted to [facility] from 06/09/20 - 06/11/20 with complaint of fever, chills and headache. Cultures were unrevealing. She was empirically treated with Zosyn. Patient was evaluated by GI in April for gastritis. She had an EGD with biopsy performed as well as colonoscopy with diverticulosis. She was started on Protonix BID and a gluten-free diet. ER Course: NSS x 1L Principal Diagnosis diarrhea Discharge Exam Constitutional: WD/WN, vitals as above Eyes: EOM intact bilaterally; no conjunctival abnormality ENMT: external ear and nose normal, oropharynx normal Neck: trachea midline, no thyromegaly normal visual inspection Respiratory: normal respiratory effort, lungs clear to auscultation no respiratory distress Cardiovascular: RRR, no murmur, no edema Gastrointestinal (Abdomen): Inspection/Auscultation: abdomen normal to inspection; abdomen not distended Musculoskeletal: no cyanosis or clubbing, extremities motor strength 5/5 Skin: no rashes, warm and dry Neurologic: moves all extremities and awake Psychiatric: Orientation: alert, oriented to person and cooperative Discharge Data Allergies Allergy/AdvReac Type Severity Reaction Status Date / Time Iodinated Contrast Media Allergy Severe Hx Kidney Verified 06/15/20 19:57 Transplant Vzqvxxs-Ooz-Mlo Reductase Allergy Severe "PANCREATIT Verified 06/15/20 19:57 Inhibitor IS" sumatriptan Allergy Severe seizure Verified 06/15/20 19:57 hydrochlorothiazide Allergy Mild Unknown Verified 06/15/20 19:57 Sulfa (Sulfonamide Allergy Mild . Verified 06/15/20 19:57 Antibiotics) triamterene Allergy Mild Unknown Verified 06/15/20 19:57 atorvastatin Allergy Unknown ? Verified 06/15/20 19:57 doxycycline Allergy Unknown UNKNOWN Verified 06/15/20 19:57 levofloxacin Allergy Unknown joint pain Verified 06/15/20 19:57 adhesive AdvReac Unknown SKIN TEAR Verified 06/15/20 19:57 Cipro AdvReac Unknown FATIGUE Verified 01/20/18 21:00 ciprofloxacin AdvReac Unknown FATIGUE Verified 06/13/20 12:01 morphine AdvReac Unknown INEFFECTIVE Verified 06/13/20 12:01 Consultations 06/15/20 19:19 ED Decision to Admit Stat 06/16/20 08:46 Consult Nephrology Routine 06/16/20 10:52 Consult Gastroenterology Routine 06/16/20 10:53 Consult Infectious Diseases Routine Procedures Performed Operation Date: 06/18/20 13:45 Actual Procedures p Colonoscopy Polypectomy - Sunil Kirk MD Ordered Studies 06/16/20 16:30 CT abd pelvis oral con only Routine 06/19/20 16:30 CT chest wo con Routine Hospital Course (1) Diarrhea: Profuse, watery diarrhea in immunocompromised host s/p bilateral renal transplant, follows with [place]. Patient also s/p RIGHT hemicolectomy with ileocolic anastomosis 2010 secondary to SBO * CT abdomen with oral contrast with liquid stool in colon, diarrheal illness. 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 Kirk which showed 3mm sessile polyp in rectum (of note, no polyps noted 2 months ago), removed with cold snare. Ileum normal, entire colon examined normal and biopsied. Diverticulosis in the sigmoid colon, descending and transverse colon. * Pathology no suggestive of CMV colitis * Valacyclovir empirically on 06/19 after discussion with [employer] with patient reportedly feeling better --> will continue * Nephrology on consult * Added bicarb 75mew on 06/20 after discussion with Nephrology for non-anion gap metabolic acidosis with bicarb of 15 --> bicarb 23 on AM labs and removed from fluids. Aim >20 on AM labs. Will also decrease IVF to 75cc/hr given she is keeping up with oral fluids. * Urine legionella pending. Sputum if able * Sputum culture with few epi, few WBCs seen, few gram positive cocci, few gram negative bacilli. Possible normal patrick given epi but follow cx * Given Imodium and then patient refused as she had reduction in her diarrhea but then with recurrence, agreeable to continue and monitor response * Continue supportive treatment as outlined * No further fevers since low grade temp 06/20 37.6C, Tmax 39.5C on 06/19 * * Continue to have diarrhea, concern over possiblity of bacterial overgrowth, will discuss this with GI. Patient continues to have diarrhea, will increase immodium. * -GI willing to do a trial, however nephro is hesitant to start antibiotic due to risk of c diff. * Patient would like to wait and see if she continues to improve as today she is feeling better. * Added microsporidium, stool pH, and Aretha complex to look for other causes. COVID test is negative. * Appreciate input from Nephro: * It is safe to discharge her to home. She can call PCP or nephro if she has any recurrent diarrhea. Discharge her on all of her usual medications although I would reduce her mycophenolate sodium to 180 mg twice daily until her follow-up with me in about 2 weeks. Additionally, I would continue her valacyclovir 1 g twice daily for the next week. No other recommended changes. (2) Fever: Waxing and waning nature --> afebrile from morning 06/17 up until 4am 06/19 with temp of 39.5C. * Since that time only T 37.6C filler and trimmer 06/20 but nothing since that time--> likely some atelectasis and continued incentive spirometer encouraged * ESR, CRP elevated -- will repeat with am labs * CTAP as above * CXR with pleural effusions, no acute infectious process * CT Chest w/o with small L>R pleural effusions (mildly increased in size from 06/16), mild dependent bibasilar atelectasis, pleural-parenchymal scarrin L lung base with mild associated traction bronchiectasis of posterior basal segment left lower lobe, no adenopathy or airspace consolidation typical for pneumonia, multicystic liver * Will add sputum culture, legionella as above * BCx NGTD * Nephrology, ID, GI on consult as above * Tylenol IV prn * Valacyclovir renally dosed 1,000mg BID 06/19, continue * Stool studies, anaplasmosis PCR all have been negative * Sputum as above, urine -- follow * Continue supportive care as above (3) CKD (chronic kidney disease) stage 4, GFR 15-29 ml/min: * Cr 0.93 -- best it has been in YEARS * Avoid nephrotoxic agents --> TORADOL ordered by overnight team for headache -- would AVOID and utilize other agents. Success with oxycodone and will also help with diarrhea symptomatology * Follows with Dr. Roy locally. Nephrology on consult as above -- continue IV hydration, Valacyclovir as above * Follow labs -> Now at baseline. (4) H/O kidney transplant: x2 at [place]. Follows locally with Dr. Roy. * Continue Sirolimus and Mycophenolate for transplant. * Stable. See above under CKD * Will need to keep close eye on pain RLQ as this is in region of her transplant. Non-tender to palpation at this current time. Instructed to inform nursing immediately if pain worsens. (5) Gastritis: * Recently diagnosed on EGD earlier this year * Continue Protonix 40 mg po daily (6) Diabetes mellitus: * Last VscT3W=2.8 on 05/08/20. No repeat at this time * Hold oral agents while inpatient * Continue Levemir 9u qHS * ISS with accuchecks * BSGs acceptable * Continue to monitor (7) Hypertension: * Blood pressures labile -- currently 113/70 * Carvedilol 18.75mg BID * Continue to monitor (8) Hyperlipidemia: * Chronic. Patient statin intolerant (9) Restless legs syndrome: * Chronic * Continue Ropinirole (10) Gout: * Chronic. Well controlled. Patient denies joint pain or inflammation at present * Continue Allopurinol (11) Hypophosphatemia: * Phos 1.4 -- ordered 24mmol Kphos IV as well as oral QID x 4 doses with resolution * Phos slightly low 2.4 on AM labs -- ordered oral replacement to be continued * AM labs (12) Hypokalemia: * -- secondary to diarrhea. Kphos as above * Resolved -- K 3.6 * BMP in AM given above (13) Migraine: * No migraine reported today. Had received oxycodone 5mg x 1 on admission * Fioricet ordered prn -- successful resolution of migraine evening 06/17 * Tylenol IV prn * Zofran, phenergan prn -- she has been utilizing zofran in the Am and phenergan at night due to sedative effects * Oxycodone prn added (14) Non-celiac gluten sensitivity: * Noted. Diagnosed earlier this year. Also with IgA low at 39 * Gluten free diet as tolerated following colonoscopy (15) ATN (acute tubular necrosis): * Secondary to diarrhea/dehydration. Patient with non-anion gap metabolic acidosis * IVF as above * Nephrology on consult (16) Metabolic acidosis: * As above -- non-anion gap --> resolved as above * IVF changes as above * Continue to monitor on am labs (17) Insomnia: * trazodone HS prn for tonight * Ativan added prn as above under depression (18) DVT prophylaxis: * SCDs * Ambulation encouraged --> patient has been up out of bed frequently without assistance. Calves non-tender. No shortness of breath, 99% on RA Dispo: prolonged inpatient stay, supportive care and antidiarrheals as above Sputum cx pending, legionella urine Total Time Total Time Spent Total Time Spent (In Minutes): 32 Discharge Plan Discharge Items Patient Disposition: Home - Self-Care Reason For Visit: FEVER, DIARRHEA Discharge Diagnosis: diarrhea Condition on Discharge: Good Activity: Resume your previous activity Non-emergency contact: Primary Care Provider Call non-emergency contact if: you have any medication questions Follow-up/Referrals: Shruthi Mcbride DO [Primary Care Provider] - 07/02/20 9:10 am (You have an appt with Dr. Mcbride Jul.02 at 910. Please arrive 15 minutes prior to your appt time. If this appt does not fit your schedule please call [phone] to reschedule. ) Diet: Carb Consistent or DM2 and Gluten Free Addtl Attending Provider Instructions: You have been hospitalized for an acute medical problem. During your stay at [facility], we have made an effort to correct the problem that brought you to the hospital while keeping you as comfortable as possible. Medications were used to bring your condition under control and your discharge instructions will include directions for any medications you should take after leaving the hospital. Please make sure you see your Primary Care Provider as part of your follow up plan. Call us if she has any recurrent diarrhea. Will discharge on all of your usual medications although I would reduce mycophenolate sodium to 180 mg twice daily until follow-up with Dr Roy in about 2 weeks. Additionally, continue valacyclovir 1 g twice daily for the next week. May consider adding bentyl in the future Pending Studies at Discharge: No Stand-Alone Forms: My [facility], Smoking Cessation Medications and DC Order Prescriptions: New prochlorperazine maleate [Compazine] 5 mg tablet 5 mg PO Q8H PRN (Reason: nausea) Qty: 14 RF: 0 Continued ropinirole [Requip] 0.25 mg tablet 0.25 mg PO HS Qty: 90 RF: 2 carvedilol 6.25 mg tablet 18.75 mg PO BID Qty: 540 RF: 3 prednisone 5 mg tablet 5 mg PO QAM Qty: 90 RF: 3 allopurinol 300 mg Tablet 300 mg PO TUTHSA RF: 0 Levemir FlexTouch U-100 Insuln 100 unit/mL (3 mL) Insulin Pen 9 units subcut HS RF: 0 tamsulosin 0.4 mg capsule 0.4 mg PO BID RF: 0 pantoprazole 40 mg tablet,delayed release (DR/EC) 40 mg PO QAM RF: 0 azelastine 137 mcg (0.1 %) Aerosol,[place] 2 spray INTRANASAL Q12H PRN (Reason: Nasal Congestion) RF: 0 fluticasone propionate [Flonase Allergy Relief] 50 mcg/actuation [place],Suspension 2 spray INTRANASAL DAILY PRN (Reason: SEASONAL ALLERGIES) RF: 0 sirolimus 1 mg tablet 2 mg PO QAM RF: 0 repaglinide 0.5 mg tablet 0.5 mg PO TID PRN (Reason: bs) RF: 0 Premarin 0.625 mg Tablet 0.625 mg PO WE RF: 0 PNV cmb#95-ferrous fumarate-FA [] 28 mg iron- 800 mcg Tablet 1 tab PO QAM RF: 0 kemjxaesox-tujttrqnvhvld-gevf [Fioricet] 50-300-40 mg Capsule 1 cap PO Q6H PRN (Reason: Migraine Headache) RF: 0 venlafaxine 75 mg capsule,extended release 24hr 75 mg PO QAM RF: 0 acetaminophen [Tylenol Extra Strength] 500 mg Tablet 1,000 mg PO DIRECTED PRN (Reason: Pain) RF: 0 Changed mycophenolate sodium [Myfortic] 180 mg tablet,delayed release (DR/EC) 180 mg PO BID Qty: 360 RF: 1 Discontinued doxycycline hyclate 100 mg Capsule 100 mg PO BID Qty: 28 RF: 0 No Action valacyclovir 500 mg tablet 1,000 mg PO BID Qty: 14 RF: 0 Discharge Orders: Discharge Order (Routine); Ordered 06/26/20 Ordered By: Dakota Coon Admission Data Admit Date/Time: 06/16/20 16:16 Attending Provider: Dakota Coon Admit Provider: Maren Tavares Primary Care Provider: Shruthi Mcbride Other Providers: Maren Tavares ; Mike Franks ; Garth Baron ; Rubio Richard ; Bello Messina ; Immanuel Tavares I. ; Ammon De La Cruz II ; Ivon Redmond ; Jonas King Other Interventions: Discharge Summary Assessment (RN) Last Done: 06/26/20 12:59 Coding Level of Care Code D/C Day Management >30 mins Diagnoses Diarrhea R19.7 Diarrhea type: unspecified type Fever R50.9 Fever type: unspecified CKD (chronic kidney disease) stage 4, GFR 15-29 ml/min N18.4 H/O kidney transplant Z94.0 Gastritis K29.70 Gastritis type: unspecified gastritis Chronicity: unspecified Gastritis bleeding: without bleeding Diabetes mellitus E11.22; Z79.4 Diabetes mellitus type: type 2 Diabetes mellitus fci insulin use: with adjunct faculty for medical terminology use Diabetes mellitus complication status: with kidney complications Diabetes mellitus complication detail: with chronic kidney disease Chronic kidney disease stage: unspecified stage Hypertension I10 Hypertension type: essential hypertension Hyperlipidemia E78.5 Hyperlipidemia type: unspecified Restless legs syndrome G25.81 Gout M10.9 Gout site: unspecified site Gout etiology: unspecified cause Chronicity: unspecified Hypophosphatemia E83.39 Hypokalemia E87.6 Migraine G43.909 Migraine type: unspecified Status migrainosus presence: without status migrainosus Intractability: not intractable Non-celiac gluten sensitivity K90.41 ATN (acute tubular necrosis) N17.0 Metabolic acidosis E87.2 Insomnia G47.00 DVT prophylaxis Z29.9 Time Spent (min) 32
== END 2020-06-26 13:38 | disposition home or self-care (01) | DRG 391 ==
LOC: ED 15:52 → 2W 15:52 → SUATTDRO 20:17 → 2W 20:52 → SUATTDRO 06-16 16:16 → 2W 06-25 19:41

== ENCOUNTER 2021-12-20 14:54 | Inpatient (IN) ==
[2021-12-20] MEDS ORDERED: SODIUM CHLORIDE 0.9% 1000ML 1,000 ML IV STA ×2 (15:11→15:30)
[2021-12-20] MEDS ORDERED: PIPERACILLIN/TAZOBACTAM 4.5 GM/120 ML BAG IV ONE (15:29)
[2021-12-20] MEDS ORDERED: ONDANSETRON INJ 2 MG/ML 2 ML VIAL IV STA (15:29)
[2021-12-20] MEDS ORDERED: PIPERACILL/TAZOBAC CONSULT ACTIVE PRN ×2 (15:29→19:48)
[2021-12-20] MEDS ORDERED: SODIUM CHLORIDE 0.9% 1000ML 500 ML IV ONE (15:30)
[2021-12-20] MEDS ORDERED: ACETAMINOPHEN 1,000 MG/100 ML VIAL IV STA (15:30)
[2021-12-20 16:08] LABS: Basophils # (auto) 0.01 K/uL (0-0.2); Basophils % (auto) 0.1 %; Eosinophils # (auto) 0.01 K/uL (0-0.5); Eosinophils % (auto) 0.1 %; Hematocrit (blood only) 40.9 % (37-47); Hemoglobin 13.4 g/dL (12.0-16.0); Immature Granulocytes # (auto) 0.02 K/uL (0.00-0.02); Immature Granulocytes % (auto) 0.2 %; Lymphocytes # (auto) 0.53 K/uL (1.2-3.4); Lymphocytes % (auto) 5.8 %; Mean Corpuscular Hemoglobin 28.6 pg (25-34); Mean Corpuscular Hgb Conc 32.8 g/dL (32-36); Mean Corpuscular Volume 87.4 fL (80-100); Mean Platelet Volume 9.6 fL (7.4-10.4); Monocytes % (auto) 7.6 %; Neutrophils # (auto) 7.89 K/uL (1.4-6.5); Neutrophils % (auto) 86.2 %; Platelet Count 138 K/uL (130-400); RDW Coefficient of Variation 15.6 % (11.5-14.5); RDW Standard Deviation 49.6 fL (36.4-46.3); Red Blood Count 4.68 M/uL (4.2-5.4); White Blood Count 9.16 K/uL (4.8-10.8)
--- NOTE | 2021-12-20 16:23 | XRay Report ---
KUB CLINICAL HISTORY: Vomiting. FINDINGS: 2 AP, portable, supine abdominal radiographs are compared to study dated 07/31/2021 and daryl elated with abdominal CT dated 06/16/2020. Surgical clips are seen throughout the abdomen and pelvis. There is no radiographic evidence of high-grade bowel obstruction. No evidence of intraperitoneal kaylah e air is seen on these supine images. There are no abnormal abdominal calcifications. Phleboliths are seen throughout the pelvis. The skeletal structures are osteopenic and appear intact. There is lumbo sacral spondylosis. IMPRESSION: No acute abnormality is identified. Electronically signed by: Bradley Rivas M.D. 12/20/2021 4:21 PM
--- NOTE | 2021-12-20 16:24 | XRay Report ---
SINGLE VIEW CHEST CLINICAL HISTORY: Fever. Vomiting. FINDINGS: 2 AP, portable, upright chest radiographs are compared to study dated 07/31/2021. Correlatio n is made with chest CT dated 06/19/2020. Calcified breast implants project over the lung bases. The c ardiomediastinal silhouette is unremarkable. There is bibasilar scarring/atelectasis. Punctate calcif ied granulomas are incidentally noted. The lungs and pleural spaces are otherwise clear. No pneumotho rax is seen. The skeletal structures are osteopenic. The bony thorax is grossly intact. Surgical clip s are noted in the upper abdomen. IMPRESSION: No active disease in the chest. ACT 112: Negative or not required by law. Electronically signed by: Bradley Rivas M.D. 12/20/2021 4:22 PM
[2021-12-20 16:27] LABS: Albumin Globulin Ratio 1.6 (0.9-2); Albumin Level 4.2 gm/dl (3.4-5.0); Bilirubin,Total 0.9 mg/dl (0.2-1.0); Calcium 9.6 mg/dl (8.5-10.1); Creatinine Clr Calc Pharmacy 42.9 ml/min; Est GFR (African American) 51.4 ml/min; Est GFR (Non-African American) 44.3 ml/min; Globulin 2.6 gm/dl (2.5-4.0); Potassium 3.6 mmol/L (3.5-5.1); Total Protein 6.8 gm/dl (6.0-8.3)
[2021-12-20 16:32] LABS: Troponin I 0.23 ng/ml (0-0.04)
[2021-12-20 17:08] LABS: Adenovirus PCR Not Detected (NotDetected); Bordetella parapertussis PCR Not Detected (NotDetected); Bordetella pertussis PCR Not Detected (NotDetected); Chlamydia pneumoniae PCR Not Detected (NotDetected); Coronavirus 229E PCR Not Detected (NotDetected); Coronavirus CoV-2 (COVID19)PCR Not Detected (NotDetected); Coronavirus HKU1 PCR Not Detected (NotDetected); Coronavirus NL63 PCR Not Detected (NotDetected); Coronavirus OC43PCR Not Detected (NotDetected); Human Metapneumovirus PCR Not Detected (NotDetected); Influenza A PCR Not Detected (NotDetected); Influenza B PCR Not Detected (NotDetected); Mycoplasma pneumoniae PCR Not Detected (NotDetected); Parainfluenza Virus 1 PCR Not Detected (NotDetected); Parainfluenza Virus 2 PCR Not Detected (NotDetected); Parainfluenza Virus 3 PCR Not Detected (NotDetected); Parainfluenza Virus 4 PCR Not Detected (NotDetected); Respiratory Syncytial VirusPCR Not Detected (NotDetected); Rhinovirus/Enterovirus PCR Not Detected (NotDetected)
[2021-12-20 17:20] LABS: Appearance Urine Clear (Clear); Bacteria Urine Automated Negative (Negative); Bilirubin Urine Negative (Negative); Blood Urine Negative (Negative); Cast Urine Automated 0 /lpf (0-5); Color Urine Yellow; Epithelial Cell Urine Auto >30 /lpf (0-5); Glucose Urine UA Negative (Negative); Ketones Urine 1+ (Negative); Leukocyte Esterase Urine Negative (Negative); Nitrite Urine Negative (Negative); Protein Urine 2+ (Negative); RBC Urine Automated 0-4 /hpf (0-4); Specific Gravity Urine 1.021 (1.000-1.030); Urobilinogen Urine Negative (Negative); pH Urine 5.5 (4.5-7.5)
--- NOTE | 2021-12-20 17:31 | History & Physical Report ---
Date of Service December 20, 2021 Assessment & Plan (1) Fever: Plan: Patient primarily is brought in because she is feeling ill vomiting and has a fever. She is chronically immunosuppressed being a renal transplant recipient on sirolemus mycophenolate and prednisone. She has had a tree of enterococcal urinary tract infection in January 2021. a bio fire is negative. does not have a leukocytosis. Chest x-ray is clear and unremarkable for pulmonary compromise. KUB is unremarkable as well as laboratories leg LFTs. Her procalcitonin is also normal at 0.14. Patient does have a headache in the emergency department which she says is from not eating throughout the day. She requested Fioricet but I did not give it to her given her troponin elevation and we gave her a dose of Dilaudid which she requested. Patient states typically when she gets a urinary tract infection she has no symptoms. She typically has vomiting when she has fever which is what occurred today This and we will treated with supportive care at this time blood cultures and urine cultures have been collected, the patient be hydrated with Normosol the patient will have a repeat lactic acid (2) Elevated troponin: Plan: Patient has an elevated troponin of 0.23. This is in the face of no cardiac symptoms but she is vomiting. She is diabetic. EKG is without acute changes. Troponins were trended and she will be maintained on telemetry. Low-dose aspirin will be started. (3) Diabetes mellitus: Plan: Patient typically takes a long-acting insulin 8 units at night since she has not eaten and had vomiting we will hold her long-acting insulin the evening of 12/20 started on the evening of 12/21 we will add a sliding scale coverage and hemoglobin A1c (4) Kidney transplant recipient: Plan: Patient received a renal transplant due to polycystic kidney disease. Patient it maintains her antirejection medications as mentioned of mycophenolate, sirolimus and prednisone 5. Patient is vomiting at home prevented her from taking any of her medications today. We will give her stress dose hydrocortisone and restart her prednisone on 12/23/2021 (5) Hypertension: Plan: Patient is maintained on metoprolol 12.5 extended release daily (6) Anemia in chronic kidney disease: Plan: Patient's hemoglobin/hematocrit is in very good condition at 13 / 40 but she carries history of anemia of chronic disease or inflammatory disease Plan: Heparin will be used for DVT prevention She is a full code Patient has an unusual dosing of Premarin on her med rec she says she does not take this medication any longer. This patient is fairly in tune to her medical care she requests Dificid therapy while she is on any antibiotics. I gave her 1 dose in the ER but we will hold off on further request with further evaluation by inpatient hospitalist service. She also requested probiotic even though she is immunosuppressed. History of Present Illness Primary Care Provider: Shruthi Mcbride DO 61-year-old female with a history of renal transplantation. Patient presents with fever. Patient is found to have mildly elevated troponin at 0.2 mildly elevated lactic acid of 2.4 she is a clear chest and lungs pending bio fire. In some discussion about starting antibiotics due to her renal transplant status the patient is not sure she wishes to do it. She said nausea vomiting here in the emergency department Allergies Allergy/AdvReac Type Severity Reaction Status Date / Time Iodinated Contrast Media Allergy Severe Hx Kidney Verified 09/03/21 12:49 Transplant Eenqyzf-FZS-UpF Reductase Allergy Severe "PANCREATIT Verified 09/03/21 12:49 Inhibitor IS" [Jpnzpuw-Oma-Qub Reductase Inhibitor] sumatriptan Allergy Severe seizure Verified 09/03/21 12:49 hydrochlorothiazide Allergy Mild Unknown Verified 09/03/21 12:49 Sulfa (Sulfonamide Allergy Mild . Verified 09/03/21 12:49 Antibiotics) triamterene Allergy Mild Unknown Verified 09/03/21 12:49 atorvastatin Allergy Unknown ? Verified 09/03/21 12:49 doxycycline Allergy Unknown UNKNOWN Verified 09/03/21 12:49 levofloxacin Allergy Unknown joint pain Verified 09/03/21 12:49 adhesive AdvReac Unknown SKIN TEAR Verified 09/03/21 12:49 ciprofloxacin AdvReac Unknown FATIGUE Verified 09/03/21 12:49 morphine AdvReac Unknown INEFFECTIVE Verified 09/03/21 12:49 carvedilol AdvReac Verified 09/03/21 12:49 Home Medications Medication Instructions Recorded Confirmed Type insulin detemir U-100 100 unit/mL 8 units SUBCUT HS 09/01/18 09/03/21 History (3 mL) subcutaneous pen (Levemir FlexTouch U-100 Insulin) tamsulosin 0.4 mg capsule (Flomax) 0.4 mg PO BID 03/26/19 09/03/21 History azelastine 137 mcg (0.1 %) nasal 2 spray INTRANASAL Q12H 07/10/19 09/03/21 History spray aerosol prednisone 5 mg tablet 5 mg PO QAM #90 tab 06/17/20 09/03/21 Rx metoprolol succinate 25 mg 12.5 mg PO .COMPLEX tab 03/30/21 09/03/21 History tablet,extended release 24 hr (Toprol XL) pantoprazole 40 mg tablet,delayed 40 mg PO DAILYBB tab 03/30/21 09/03/21 History release (Protonix) sirolimus 1 mg tablet (Rapamune) 2 mg PO QAM 05/31/21 09/03/21 History conjugated estrogens 0.625 mg 0.625 mg PO BID tab 09/03/21 09/03/21 History tablet (Premarin) conjugated estrogens 0.625 mg 0.625 mg PO DAILY 09/03/21 09/03/21 History tablet (Premarin) fluticasone propionate INTRANASAL DAILY 09/03/21 09/03/21 History gabapentin 100 mg capsule 100 mg PO DAILY 09/03/21 09/03/21 History repaglinide 0.5 mg tablet 0.5 mg PO .COMPLEX 09/03/21 09/03/21 History mycophenolate sodium 180 mg 360 mg PO BID #360 tab 12/01/21 Rx tablet,delayed release (Myfortic) Past Med/Surg History Medical History Acid reflux disease Acquired deviated nasal septum Asthma Chronic sinusitis COVID-19 vaccine series completed Diverticulosis Former smoker Hiatal hernia Hypertrophy of nasal turbinates Incisional hernia Migraine Non-celiac gluten sensitivity Osteopenia Recurrent Clostridium difficile diarrhea Venous stasis dermatitis of both lower extremities Ventral hernia Surgical History History of hernia surgery Hx of appendectomy Hx of cholecystectomy Kidney replaced by transplant Kidney transplant recipient Family History Other Family history non-contributory Social History Smoking Status: Never smoker Second Hand Exposure: No; Hx Alcohol Use: Yes Alcohol type: beer Hx Substance Use: No Preferred Language: Tajik Communication Ability: Effective 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 He said no upper respiratory symptoms sore throat etc. no speech or swallowing issues no chest pain, pressure or palpitations no shortness of breath, cough or wheezes no abdominal pain, hospital she had nausea and vomiting. She has had no diarrhea or constipation no dysuria, hematuria or frequency she typically states she gets no symptoms of such when she gets an infection no focal joint pain or swelling no back pain, CVA tenderness or radicular pain no bruising, bleeding or rashes no focal signs of weakness or numbness or altered sensation no complaints of anxiety or depression.. Physical Exam Physical Exam: The patient appeared well nourished and normally developed. Vital signs as documented. Head exam is normocephalic atraumatic Neck is without JVD, thyromegaly, or carotid bruits. Lungs are clear to auscultation, no focal loss of breath sounds Cardiac exam, Rhythm is regular.. No murmurs, rubs or gallops. Abdominal exam reveals normal bowel sounds, soft non tender, no masses Extremities are nonedematous and both pedal pulses are present Neurologic exam is alert and oriented, no focal loss of strength or sensation Skin is without bruises or rashes Psychologically is without concerns for anxiety or depression.. Results & Data Results & Data ([facility]) Vital Signs (Past 12 Hours) Vital Signs Temp Pulse Pulse Resp BP BP Pulse Ox 12/20/21 16:51 109 H 18 135/79 95 12/20/21 15:08 100.0 F H 106 H 20 159/86 H 104 H Diagnostic Findings Current Inpatient Medications Sodium Chloride (Nss 1000ml) 1,000 mls @ 125 mls/hr IV .Q8H STA Stop: 12/20/21 23:10 Sodium Chloride (Nss 1000ml) 1,000 mls @ 125 mls/hr IV .Q8H STA Stop: 12/20/21 23:29 Miscellaneous Information (Piperacill/Tazobac Consult Active) 1 ea N/A UD PRN PRN Reason: Consult Stop: 04/27/22 15:28 ECG Additional Comments: EKG shows normal sinus rhythm with no acute ST or T wave changes Code Status & VTE Plan VTE Prophylaxis Plan VTE Prophylaxis will be ordered: Yes PG Care Time/CCT Total # of Minutes Spent Total Time Spent with Patient: Total time spent is greater than 50% in coordination of care (as documented) at patient's floor/unit and/or counseling patient: Coding Level of Care Code 48224 Initial Inpt Care Lvl 3 Diagnoses Diabetes mellitus E11.9 Kidney transplant recipient Z94.0 Hypertension I10 Hypertension type: essential hypertension Anemia in chronic kidney disease N18.9; D63.1 Fever R50.9 Elevated troponin R77.8 (1) Hypertension Hypertension type: essential hypertension Qualified Code(s): I10 - Essential (primary) hypertension
[2021-12-20] MEDS ORDERED: HYDROmorphone INJ 0.5 MG/0.5 ML SYR IV STA (17:48)
[2021-12-20] MEDS ORDERED: NITROGLYCERIN SL 0.4 MG/TAB TAB SL PRN (19:48)
[2021-12-20] MEDS ORDERED: PIPERACILLIN/TAZOBACTAM 3.375 GM in DEXTROSE 5% 100 ML IV SCH (19:48)
[2021-12-20] MEDS ORDERED: POLYETHYLENE (MIRALAX) 17 GM PACK PO PRN (19:48)
[2021-12-20] MEDS ORDERED: DEXTROSE 50% 50 ML SYRINGE IV PRN (19:48)
[2021-12-20] MEDS ORDERED: GLUCOSE 40% GEL 15 GM TUBE PO PRN (19:48)
[2021-12-20] MEDS ORDERED: NORMOSOL-R 1,000 ML IV SCH (19:48)
[2021-12-20] MEDS ORDERED: PROMETHAZINE HCL 12.5 MG in SODIUM CHLORIDE 0.9% 50 ML IV PRN (19:48)
[2021-12-20] MEDS ORDERED: CARBOHYDRATES FOR HYPOGLYCEMIA PO PRN (19:48)
[2021-12-20] MEDS ORDERED: GLUCOSE 10 TABS/TUBE PO PRN (19:48)
[2021-12-20] MEDS ORDERED: GLUCAGON FOR INJ 1 MG VIAL SQ PRN (19:48)
[2021-12-20] MEDS ORDERED: FIDAXOMICIN 200 MG TAB PO ONE (20:00)
[2021-12-20] MEDS: ONDANSETRON INJ 2 MG/ML 2 ML VIAL IV PRN (20:46)
[2021-12-20] MEDS: AZELASTINE HCL 0.1% NASAL 200 SPRAYS/27,400 MCG BTL SCH (21:23)
[2021-12-20] MEDS: METOPROLOL SUCC 25MG EXT REL TAB PO SCH (21:24)
[2021-12-20] MEDS: TAMSULOSIN HCL 0.4 MG CAP PO SCH (21:25)
[2021-12-20] MEDS: MYCOPHENOLATE SODIUM 180 MG TAB PO SCH (21:26)
[2021-12-20] MEDS: HEPARIN SOD 5,000 UNIT/0.5 ML VIAL SQ SCH (21:26)
[2021-12-20] MEDS: SIROLIMUS 0.5 MG TABLET PO SCH (21:38)
[2021-12-20] MEDS: PIPERACILLIN/TAZOBACTAM 3.375 GM in DEXTROSE 5% 100 ML IV SCH (21:43)
[2021-12-20] MEDS: ACETAMINOPHEN 325 MG TAB PO PRN (21:46)
[2021-12-20] MEDS: INSULIN ASPART PER UNIT SC SCH (22:54)
[2021-12-21] MEDS: ONDANSETRON INJ 2 MG/ML 2 ML VIAL IV PRN (05:51)
[2021-12-21] MEDS: PANTOprazole 40 MG TAB PO SCH (05:54)
[2021-12-21] MEDS: PIPERACILLIN/TAZOBACTAM 3.375 GM in DEXTROSE 5% 100 ML IV SCH ×2 (05:58→14:25)
[2021-12-21 06:16] LABS: BUN Creatinine Ratio 13.3 (10-20); Calcium 8.5 mg/dl (8.5-10.1); Creatinine Clr Calc Pharmacy 52.4 ml/min; Est GFR (African American) 65.9 ml/min; Est GFR (Non-African American) 56.9 ml/min; Potassium 3.8 mmol/L (3.5-5.1)
[2021-12-21 07:43] LABS: Estimated Average Glucose 134 mg/dl; Hemoglobin A1C 6.3 % (4.5-5.6)
[2021-12-21] MEDS: INSULIN ASPART PER UNIT SC SCH ×4 (09:00→22:10)
[2021-12-21] MEDS: METOPROLOL SUCC 25MG EXT REL TAB PO SCH ×2 (09:20→22:12)
[2021-12-21] MEDS: SACCHAROMYCES BOULARDII 250 MG CAP PO SCH (09:21)
[2021-12-21] MEDS: MYCOPHENOLATE SODIUM 180 MG TAB PO SCH ×2 (09:21→22:12)
[2021-12-21] MEDS: SIROLIMUS 0.5 MG TABLET PO SCH (09:21)
[2021-12-21] MEDS: ASPIRIN 81 MG ECTAB PO SCH (09:21)
[2021-12-21] MEDS: FLUTICASONE PROPIONATE NA SPR 16 GM BTL SCH (09:22)
[2021-12-21] MEDS: GABAPENTIN 100 MG CAP PO SCH (09:22)
[2021-12-21] MEDS: AZELASTINE HCL 0.1% NASAL 200 SPRAYS/27,400 MCG BTL SCH ×2 (09:23→22:13)
[2021-12-21] MEDS: REPAGLINIDE 1 MG TAB PO SCH (09:26)
--- NOTE | 2021-12-21 09:41 | Emergency Department Note ---
Impression & Plan Fever, Elevated troponin, S/P kidney transplant, Elevated lactic acid level ED Provider Note CHIEF COMPLAINT: fever HISTORY OF PRESENT ILLNESS: This 61 yo female patient presents to the emergency department with c/o fever and midabdominal pain. Pt is s/p renal transplant years ago. Patient is nauseated and vomiting. She denies diarrhea or urinary symptoms. She denies significant cough, shortness of breath or chest discomfort. Patient's is at the bedside and asymptomatic. T-max was 101.5 degrees. REVIEW OF SYSTEMS: A review of systems was performed with positives and per tinent negatives listed in the history of present illness. 10 systems were reviewed and are otherwise negative. ALLERGIES: see below MEDICATIONS: see below PMH: see below SOCIAL HISTORY: see below DDx: Viral syndrome, otitis, pharyngitis, pneumonia, influenza, meningitis, urinary tract infection, sepsis, bacteremia, as well as other pathologies. PHYSICAL EXAM: Vital signs reviewed. General: Somewhat ill-appearing 61-year-old female, in some discomfort, vomiting HEENT: No scleral icterus, PERRLA, neck supple. MMM. Cardiovascular: Regular rhythm, bradycardic, no extra sounds. Pulmonary: Clear to auscultation bilaterally, normal work of breathing. Abdomen: Soft, nontender, nondistended, positive bowel sounds. Musculoskeletal: Atraumatic, no peripheral edema. Neurologic: Patient awake alert and oriented x 3 Skin: Warm, dry, no rash EMERGENCY DEPARTMENT COURSE/MDM: This patient was evaluated and appeared to be in no significant distress. IV access was obtained and laboratory work was drawn. Patient was noted to have an elevated temperature, heart rate. She was hydrated with normal saline solution. Laboratory work reveals a troponin of 0.23, felt to be demand mediated, a lactate of 2.4. EKG did reveal ST and T wave abnormalities in anterior leads but no ST elevation NC. Patient had no chest discomfort. Patient did receive IV acetaminophen 1000 mg, IV Zofran for her nausea. After blood cultures were obtained the patient was medicated with IV Zosyn. UA appears to be negative. A bio fire was performed and is negative. Given the patient's immunocompromise status and fever with elevated lactate and troponin, the patient was discussed with the hospitalist service for admission and further management. MONITORING: An order for cardiac monitoring was placed and the patient is noted to be in a sinus bradycardia at 59 beats per minute. RADIOLOGY: see below EKG: NSR with sinus arrhythmia at 96 bpm, previous septal infarct. no PVC, no PAC, QTc 429. Q waves and T wave inversion anteriorly. Q waves and T wave changes are new when compared to 06/13/20 DISPOSITION: admit Past Med/Surg History Medical History Acid reflux disease Acquired deviated nasal septum Asthma Chronic sinusitis COVID-19 vaccine series completed Diverticulosis Former smoker Hiatal hernia Hypertrophy of nasal turbinates Incisional hernia Migraine Non-celiac gluten sensitivity Osteopenia Recurrent Clostridium difficile diarrhea Venous stasis dermatitis of both lower extremities Ventral hernia Surgical History History of hernia surgery Hx of appendectomy Hx of cholecystectomy Kidney replaced by transplant x2. 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 Verified 12/20/21 18:49 Antibiotics) triamterene Allergy Mild Unknown Verified 12/20/21 18:49 atorvastatin Allergy Unknown ? Verified 12/20/21 18:49 doxycycline Allergy Unknown UNKNOWN Verified 12/20/21 18:49 levofloxacin Allergy Unknown joint pain Verified 12/20/21 18:49 adhesive AdvReac Unknown SKIN TEAR Verified 12/20/21 18:49 ciprofloxacin AdvReac Unknown FATIGUE Verified 09/03/21 12:49 morphine AdvReac Unknown INEFFECTIVE Verified 09/03/21 12:49 carvedilol AdvReac Verified 09/03/21 12:49 Home Meds Home Medications Medication Instructions Recorded Confirmed insulin detemir U-100 100 unit/mL 8 units SUBCUT HS 09/01/18 12/20/21 (3 mL) subcutaneous pen (Levemir FlexTouch U-100 Insulin) tamsulosin 0.4 mg capsule (Flomax) 0.4 mg PO BID 03/26/19 12/20/21 azelastine 137 mcg (0.1 %) nasal 2 spray INTRANASAL Q12H 07/10/19 12/20/21 spray aerosol metoprolol succinate 25 mg 12.5 mg PO QAM tab 03/30/21 12/20/21 tablet,extended release 24 hr (Toprol XL) pantoprazole 40 mg tablet,delayed 40 mg PO DAILYBB tab 03/30/21 12/20/21 release (Protonix) sirolimus 1 mg tablet (Rapamune) 2 mg PO QAM 05/31/21 12/20/21 gabapentin 100 mg capsule 200 mg PO HS 09/03/21 12/20/21 repaglinide 0.5 mg tablet 0.5 mg PO .COMPLEX 09/03/21 12/20/21 estradiol 0.5 mg tablet 0.5 mg PO DAILY 12/20/21 12/20/21 fluticasone propionate 50 1 spray INTRANASAL BID PRN 12/20/21 12/20/21 mcg/actuation nasal spray,suspension (Flonase Allergy Relief) metoprolol succinate 25 mg 25 mg PO HS 12/20/21 12/20/21 tablet,extended release 24 hr Previous Rx's Medication Instructions Recorded prednisone 5 mg tablet 5 mg PO QAM #90 tab 06/17/20 mycophenolate sodium 180 mg 360 mg PO BID #360 tab 12/01/21 tablet,delayed release (Myfortic) vancomycin 125 mg capsule 125 mg PO DAILY #5 cap 12/22/21 (Vancocin) Results & Data (ED) Vital Signs Vital Signs - 24 hr 12/20/21 15:08 12/20/21 16:51 Temperature 37.8 C H Temperature Source Temporal Artery Scan Pulse Rate 106 H Pulse Rate [Radial] 109 H Pulse Rhythm Regular Pulse Rhythm [Radial] Regular Pulse Strength Normal Respiratory Rate 20 18 Respiratory Effort / Characteristics Non-Labored Spontaneous Non-Labored Respiratory Depth Normal Normal Respiratory Pattern Regular Regular Blood Pressure 159/86 H Blood Pressure [Left Arm] 135/79 Blood Pressure Mean 110 Blood Pressure Mean [Left Arm] 97 Blood Pressure Position Sitting Pulse Oximetry 104 H 95 Oxygen Delivery Method Room Air Room Air Sepsis Recent Fever Within 48 Hours No Sepsis New/Unexplained Change in Mental Status N/A Sepsis Action Taken by Nursing No Action Required Home Medications Current Medication List: was personally reviewed by me Laboratory Data Attestation: I reviewed the patient's lab results. Result diagrams: 12/20/21 15:56 12/22/21 05:38 Lab Results 12/20/21 12/20/21 12/20/21 Range/Units 15:49 15:56 15:56 WBC 9.16 (4.8-10.8) K/uL RBC 4.68 (4.2-5.4) M/uL Hgb 13.4 (12.0-16.0) g/dL Hct 40.9 (37-47) % MCV 87.4 (80-100) fL MCH 28.6 (25-34) pg MCHC 32.8 (32-36) g/dL RDW Std Deviation 49.6 H (36.4-46.3) fL RDW Coeff of Valentina 15.6 H (11.5-14.5) % Plt Count 138 (130-400) K/uL MPV 9.6 (7.4-10.4) fL Immature Gran % (Auto) 0.2 % Neut % (Auto) 86.2 % Lymph % (Auto) 5.8 % Leake % (Auto) 7.6 % Eos % (Auto) 0.1 % Baso % (Auto) 0.1 % Neut # (Auto) 7.89 H (1.4-6.5) K/uL Lymph # (Auto) 0.53 L (1.2-3.4) K/uL Leake # (Auto) 0.70 H (0.11-0.59) K/uL Eos # (Auto) 0.01 (0-0.5) K/uL Baso # (Auto) 0.01 (0-0.2) K/uL Immature Gran # (Auto) 0.02 (0.00-0.02) K/uL ESR 53 H (0-30) mm/hr Sodium (136-145) mmol/L Potassium (3.5-5.1) mmol/L Chloride (98-107) mmol/L Carbon Dioxide (21-32) mmol/L Anion Gap (3-11) BUN (6-23) mg/dl Creatinine (0.6-1.2) mg/dl Est Cr Clr Drug Dosing ml/min Est GFR ( Amer) ml/min Est GFR (Non-Af Amer) ml/min BUN/Creatinine Ratio (10-20) Glucose (70-99(Fasting)) mg/dl Lactate (0.4-2.0) mmol/L Calcium (8.5-10.1) mg/dl Total Bilirubin (0.2-1.0) mg/dl AST (13-39) U/L ALT (7-52) U/L Alkaline Phosphatase (34-104) U/L Troponin I (0-0.04) ng/ml Total Protein (6.0-8.3) gm/dl Albumin (3.4-5.0) gm/dl Globulin (2.5-4.0) gm/dl Albumin/Globulin Ratio (0.9-2) Procalcitonin (0-0.5) ng/ml Urine Color Urine Appearance (Clear) Urine pH (4.5-7.5) Ur Specific [place] (1.000-1.030) Urine Protein (Negative) Urine Glucose (UA) (Negative) Urine Ketones (Negative) Urine Blood (Negative) Urine Nitrite (Negative) Urine Bilirubin (Negative) Urine Urobilinogen (Negative) Ur Leukocyte Esterase (Negative) Urine WBC (Auto) (0-5) /hpf Urine RBC (Auto) (0-4) /hpf U Hyaline Cast (Auto) (0-5) /lpf U Epithel Cells (Auto) (0-5) /lpf Urine Bacteria (Auto) (Negative) Adenovirus (PCR) Not Detected (NotDetected) B. pertussis DNA (PCR) Not Detected (NotDetected) B.parapertussis DNA PCR Not Detected (NotDetected) C. pneumoniae DNA (PCR) Not Detected (NotDetected) Coronavirus OC43 (PCR) Not Detected (NotDetected) Coronavirus HKU1 (PCR) Not Detected (NotDetected) Coronavirus 229E (PCR) Not Detected (NotDetected) SARS-CoV-2 (PCR) Not Detected (NotDetected) Coronavirus NL63 (PCR) Not Detected (NotDetected) Human Metapneumovir PCR Not Detected (NotDetected) Influenza Type A (PCR) Not Detected (NotDetected) Influenza Type B (PCR) Not Detected (NotDetected) M. pneumoniae (PCR) Not Detected (NotDetected) Parainfluenza 1 (PCR) Not Detected (NotDetected) Parainfluenza 2 (PCR) Not Detected (NotDetected) Parainfluenza 3 (PCR) Not Detected (NotDetected) Parainfluenza 4 (PCR) Not Detected (NotDetected) RSV (PCR) Not Detected (NotDetected) Entero/Rhino (PCR) Not Detected (NotDetected) 12/20/21 12/20/21 12/20/21 Range/Units 15:56 15:56 15:56 WBC (4.8-10.8) K/uL RBC (4.2-5.4) M/uL Hgb (12.0-16.0) g/dL Hct (37-47) % MCV (80-100) fL MCH (25-34) pg MCHC (32-36) g/dL RDW Std Deviation (36.4-46.3) fL RDW Coeff of Valentina (11.5-14.5) % Plt Count (130-400) K/uL MPV (7.4-10.4) fL Immature Gran % (Auto) % Neut % (Auto) % Lymph % (Auto) % Leake % (Auto) % Eos % (Auto) % Baso % (Auto) % Neut # (Auto) (1.4-6.5) K/uL Lymph # (Auto) (1.2-3.4) K/uL Leake # (Auto) (0.11-0.59) K/uL Eos # (Auto) (0-0.5) K/uL Baso # (Auto) (0-0.2) K/uL Immature Gran # (Auto) (0.00-0.02) K/uL ESR (0-30) mm/hr Sodium 140 (136-145) mmol/L Potassium 3.6 (3.5-5.1) mmol/L Chloride 104 (98-107) mmol/L Carbon Dioxide 24 (21-32) mmol/L Anion Gap 12 H (3-11) BUN 18 (6-23) mg/dl Creatinine 1.29 H (0.6-1.2) mg/dl Est Cr Clr Drug Dosing 42.9 ml/min Est GFR ( Amer) 51.4 ml/min Est GFR (Non-Af Amer) 44.3 ml/min BUN/Creatinine Ratio 14.0 (10-20) Glucose 115 H (70-99(Fasting)) mg/dl Lactate 2.4 H* (0.4-2.0) mmol/L Calcium 9.6 (8.5-10.1) mg/dl Total Bilirubin 0.9 (0.2-1.0) mg/dl AST 29 (13-39) U/L ALT 19 (7-52) U/L Alkaline Phosphatase 64 (34-104) U/L Troponin I 0.23 H* (0-0.04) ng/ml Total Protein 6.8 (6.0-8.3) gm/dl Albumin 4.2 (3.4-5.0) gm/dl Globulin 2.6 (2.5-4.0) gm/dl Albumin/Globulin Ratio 1.6 (0.9-2) Procalcitonin 0.14 (0-0.5) ng/ml Urine Color Urine Appearance (Clear) Urine pH (4.5-7.5) Ur Specific [place] (1.000-1.030) Urine Protein (Negative) Urine Glucose (UA) (Negative) Urine Ketones (Negative) Urine Blood (Negative) Urine Nitrite (Negative) Urine Bilirubin (Negative) Urine Urobilinogen (Negative) Ur Leukocyte Esterase (Negative) Urine WBC (Auto) (0-5) /hpf Urine RBC (Auto) (0-4) /hpf U Hyaline Cast (Auto) (0-5) /lpf U Epithel Cells (Auto) (0-5) /lpf Urine Bacteria (Auto) (Negative) Adenovirus (PCR) (NotDetected) B. pertussis DNA (PCR) (NotDetected) B.parapertussis DNA PCR (NotDetected) C. pneumoniae DNA (PCR) (NotDetected) Coronavirus OC43 (PCR) (NotDetected) Coronavirus HKU1 (PCR) (NotDetected) Coronavirus 229E (PCR) (NotDetected) SARS-CoV-2 (PCR) (NotDetected) Coronavirus NL63 (PCR) (NotDetected) Human Metapneumovir PCR (NotDetected) Influenza Type A (PCR) (NotDetected) Influenza Type B (PCR) (NotDetected) M. pneumoniae (PCR) (NotDetected) Parainfluenza 1 (PCR) (NotDetected) Parainfluenza 2 (PCR) (NotDetected) Parainfluenza 3 (PCR) (NotDetected) Parainfluenza 4 (PCR) (NotDetected) RSV (PCR) (NotDetected) Entero/Rhino (PCR) (NotDetected) 12/20/21 Range/Units 16:56 WBC (4.8-10.8) K/uL RBC (4.2-5.4) M/uL Hgb (12.0-16.0) g/dL Hct (37-47) % MCV (80-100) fL MCH (25-34) pg MCHC (32-36) g/dL RDW Std Deviation (36.4-46.3) fL RDW Coeff of Valentina (11.5-14.5) % Plt Count (130-400) K/uL MPV (7.4-10.4) fL Immature Gran % (Auto) % Neut % (Auto) % Lymph % (Auto) % Leake % (Auto) % Eos % (Auto) % Baso % (Auto) % Neut # (Auto) (1.4-6.5) K/uL Lymph # (Auto) (1.2-3.4) K/uL Leake # (Auto) (0.11-0.59) K/uL Eos # (Auto) (0-0.5) K/uL Baso # (Auto) (0-0.2) K/uL Immature Gran # (Auto) (0.00-0.02) K/uL ESR (0-30) mm/hr Sodium (136-145) mmol/L Potassium (3.5-5.1) mmol/L Chloride (98-107) mmol/L Carbon Dioxide (21-32) mmol/L Anion Gap (3-11) BUN (6-23) mg/dl Creatinine (0.6-1.2) mg/dl Est Cr Clr Drug Dosing ml/min Est GFR ( Amer) ml/min Est GFR (Non-Af Amer) ml/min BUN/Creatinine Ratio (10-20) Glucose (70-99(Fasting)) mg/dl Lactate (0.4-2.0) mmol/L Calcium (8.5-10.1) mg/dl Total Bilirubin (0.2-1.0) mg/dl AST (13-39) U/L ALT (7-52) U/L Alkaline Phosphatase (34-104) U/L Troponin I (0-0.04) ng/ml Total Protein (6.0-8.3) gm/dl Albumin (3.4-5.0) gm/dl Globulin (2.5-4.0) gm/dl Albumin/Globulin Ratio (0.9-2) Procalcitonin (0-0.5) ng/ml Urine Color Yellow Urine Appearance Clear (Clear) Urine pH 5.5 (4.5-7.5) Ur Specific [place] 1.021 (1.000-1.030) Urine Protein 2+ H (Negative) Urine Glucose (UA) Negative (Negative) Urine Ketones 1+ H (Negative) Urine Blood Negative (Negative) Urine Nitrite Negative (Negative) Urine Bilirubin Negative (Negative) Urine Urobilinogen Negative (Negative) Ur Leukocyte Esterase Negative (Negative) Urine WBC (Auto) 1-5 (0-5) /hpf Urine RBC (Auto) 0-4 (0-4) /hpf U Hyaline Cast (Auto) 0 (0-5) /lpf U Epithel Cells (Auto) >30 H (0-5) /lpf Urine Bacteria (Auto) Negative (Negative) Adenovirus (PCR) (NotDetected) B. pertussis DNA (PCR) (NotDetected) B.parapertussis DNA PCR (NotDetected) C. pneumoniae DNA (PCR) (NotDetected) Coronavirus OC43 (PCR) (NotDetected) Coronavirus HKU1 (PCR) (NotDetected) Coronavirus 229E (PCR) (NotDetected) SARS-CoV-2 (PCR) (NotDetected) Coronavirus NL63 (PCR) (NotDetected) Human Metapneumovir PCR (NotDetected) Influenza Type A (PCR) (NotDetected) Influenza Type B (PCR) (NotDetected) M. pneumoniae (PCR) (NotDetected) Parainfluenza 1 (PCR) (NotDetected) Parainfluenza 2 (PCR) (NotDetected) Parainfluenza 3 (PCR) (NotDetected) Parainfluenza 4 (PCR) (NotDetected) RSV (PCR) (NotDetected) Entero/Rhino (PCR) (NotDetected) Administered Medications Discontinued Medications Acetaminophen (Acetaminophen 325 Mg Tab) 650 mg PO Q4H PRN PRN Reason: Pain or Fever Stop: 01/19/22 19:47 Last Admin: 12/21/21 15:59 Dose: 650 mg Documented by: [id number] Admin: 12/20/21 21:46 Dose: 650 mg Documented by: [id number] Acetaminophen/Butalbital/Caffeine (Butalbital/Acetamin/Caffeine Tab) 1 tab PO Q4H PRN PRN Reason: Headache Stop: 01/20/22 10:18 Last Admin: 12/21/21 22:11 Dose: 1 tab Documented by: [id number] Admin: 12/21/21 12:05 Dose: 1 tab Documented by: [id number] Aspirin (Aspirin 81 Mg Ectab) 81 mg PO QAM [facility] Stop: 01/20/22 08:59 Last Admin: 12/22/21 08:22 Dose: 81 mg Documented by: [id number] Admin: 12/21/21 09:21 Dose: 81 mg Documented by: [id number] Azelastine HCl (Azelastine Hcl 0.1% Nasal 200 Sprays/27,400 Mcg Btl) 2 sprays NA Q12 [facility] Stop: 01/19/22 20:59 Last Admin: 12/22/21 08:25 Dose: 2 sprays Documented by: [id number] Admin: 12/21/21 22:13 Dose: 2 sprays Documented by: [id number] Admin: 12/21/21 09:23 Dose: Not Given Documented by: [id number] Admin: 12/20/21 21:23 Dose: 2 sprays Documented by: [id number] Fidaxomicin (Fidaxomicin 200 Mg Tab) 200 mg PO ONE ONE Stop: 12/20/21 20:01 Last Admin: 12/20/21 21:43 Dose: 200 mg Documented by: [id number] Fluticasone Propionate (Fluticasone Propionate Na Spr 16 Gm Btl) 1 sprays NA DAILY [facility] Stop: 01/20/22 08:59 Last Admin: 12/22/21 08:25 Dose: 1 sprays Documented by: [id number] Admin: 12/21/21 09:22 Dose: 1 sprays Documented by: [id number] Gabapentin (Gabapentin 100 Mg Cap) 100 mg PO DAILY [facility] Stop: 01/20/22 08:59 Last Admin: 12/22/21 08:30 Dose: Not Given Documented by: [id number] Admin: 12/21/21 09:22 Dose: Not Given Documented by: [id number] Heparin Sodium (Porcine) (Heparin Sod 5,000 Unit/0.5 Ml Vial) 5,000 units SQ Q12 [facility] Stop: 01/19/22 20:59 Last Admin: 12/22/21 08:24 Dose: Not Given Documented by: [id number] Admin: 12/21/21 22:12 Dose: 5,000 units Documented by: [id number] Admin: 12/21/21 10:09 Dose: Not Given Documented by: [id number] Admin: 12/20/21 21:26 Dose: 5,000 units Documented by: [id number] Hydrocortisone Sodium Succinate (Hydrocortisone Sod Succinate 100 Mg/2 Ml Vial) 50 mg IV Q8 [facility] Stop: 01/20/22 06:59 Last Admin: 12/21/21 14:25 Dose: 50 mg Documented by: [id number] Admin: 12/21/21 10:10 Dose: 50 mg Documented by: [id number] Hydromorphone HCl (Hydromorphone Inj 0.5 Mg/0.5 Ml Syr) 0.5 mg IV NOW STA Stop: 12/20/21 17:49 Last Admin: 12/20/21 18:03 Dose: 0.5 mg Documented by: [id number] Sodium Chloride (Nss 1000ml) 1,000 mls @ 125 mls/hr IV .Q8H STA Stop: 12/20/21 23:10 Last Admin: 12/20/21 17:40 Dose: Not Given Documented by: [id number] Piperacillin Sod/Tazobactam Sod (Zosyn) 4.5 gm in 120 mls @ 240 mls/hr IV NOW ONE Stop: 12/20/21 15:58 Last Infusion: 12/20/21 17:39 Dose: 0 mls/hr Documented by: [id number] Admin: 12/20/21 17:00 Dose: 240 mls/hr Documented by: [id number] Sodium Chloride (Nss 1000ml) 500 mls @ 999 mls/hr IV .Q31M ONE Stop: 12/20/21 16:00 Last Infusion: 12/20/21 16:12 Dose: 0 mls/hr Documented by: [id number] Admin: 12/20/21 15:45 Dose: 999 mls/hr Documented by: [id number] Sodium Chloride (Nss 1000ml) 1,000 mls @ 125 mls/hr IV .Q8H STA Stop: 12/20/21 23:29 Last Admin: 12/20/21 17:40 Dose: Not Given Documented by: [id number] Acetaminophen (Ofirmev) 1,000 mg in 100 mls @ 400 mls/hr IV NOW STA Stop: 12/20/21 15:44 Last Infusion: 12/20/21 16:12 Dose: 0 mls/hr Documented by: [id number] Admin: 12/20/21 15:47 Dose: 400 mls/hr Documented by: [id number] Piperacillin Sod/Tazobactam (Sod 3.375 gm/ Dextrose) 115 mls @ 28.75 mls/hr IV Q8H [facility]; Protocol Stop: 12/30/21 21:59 Last Infusion: 12/21/21 19:42 Dose: 0 mls/hr Documented by: [id number] Admin: 12/21/21 14:25 Dose: 28.8 mls/hr Documented by: [id number] Infusion: 12/21/21 10:00 Dose: 0 mls/hr Documented by: [id number] Admin: 12/21/21 05:58 Dose: 28.8 mls/hr Documented by: [id number] Infusion: 12/21/21 02:21 Dose: 0 mls/hr Documented by: [id number] Admin: 12/20/21 21:43 Dose: 28.8 mls/hr Documented by: [id number] Parenteral Electrolytes (Plasma-Lyte A) 1,000 mls @ 80 mls/hr IV .[id number] [facility] Stop: 12/21/21 08:17 Last Infusion: 12/21/21 10:13 Dose: 0 mls/hr Documented by: [id number] Admin: 12/20/21 21:20 Dose: 80 mls/hr Documented by: [id number] Promethazine HCl 12.5 mg/ (Sodium Chloride) 50.5 mls @ 202 mls/hr IV Q6H PRN PRN Reason: Nausea And Vomiting Stop: 01/19/22 19:47 Last Infusion: 12/20/21 22:55 Dose: 0 mls/hr Documented by: [id number] Admin: 12/20/21 22:17 Dose: 202 mls/hr Documented by: [id number] Insulin Aspart (Insulin Aspart Per Unit) 0 units SC ACHS [facility] Stop: 01/19/22 20:59 Last Admin: 12/22/21 11:45 Dose: Not Given Documented by: [id number] Admin: 12/22/21 07:44 Dose: Not Given Documented by: [id number] Admin: 12/21/21 22:10 Dose: 3 units Documented by: [id number] Cosigned by: [id number] Admin: 12/21/21 18:06 Dose: 2 units Documented by: [id number] Cosigned by: [id number] Admin: 12/21/21 12:06 Dose: Not Given Documented by: [id number] Admin: 12/21/21 09:00 Dose: Not Given Documented by: [id number] Admin: 12/20/21 22:54 Dose: Not Given Documented by: [id number] Cosigned by: [id number] Insulin Detemir (Insulin Detemir Flexpen/Flex Touch 100 Units/Ml 3ml) 8 units SQ HS [facility] Stop: 01/20/22 20:59 Last Admin: 12/21/21 22:11 Dose: 8 units Documented by: [id number] Cosigned by: [id number] Metoprolol Succinate (Metoprolol Succ 25mg Ext Rel Tab) 25 mg PO QPM [facility] Stop: 01/19/22 20:59 Last Admin: 12/21/21 22:12 Dose: 25 mg Documented by: [id number] Admin: 12/20/21 21:24 Dose: 25 mg Documented by: [id number] Metoprolol Succinate (Metoprolol Succ 25mg Ext Rel Tab) 12.5 mg PO QAM [facility] Stop: 01/20/22 08:59 Last Admin: 12/22/21 08:24 Dose: 12.5 mg Documented by: [id number] Admin: 12/21/21 09:20 Dose: 12.5 mg Documented by: [id number] Mycophenolate Sodium (Mycophenolate Sodium 180 Mg Tab) 360 mg PO BID [facility] Stop: 01/19/22 20:59 Last Admin: 12/22/21 08:17 Dose: 360 mg Documented by: [id number] Admin: 12/21/21 22:12 Dose: 360 mg Documented by: [id number] Admin: 12/21/21 09:21 Dose: 360 mg Documented by: [id number] Admin: 12/20/21 21:26 Dose: 360 mg Documented by: [id number] Ondansetron HCl (Ondansetron Inj 2 Mg/Ml 2 Ml Vial) 4 mg IV NOW [facility] Stop: 12/20/21 15:30 Last Admin: 12/20/21 15:45 Dose: 4 mg Documented by: [id number] Ondansetron HCl (Ondansetron Inj 2 Mg/Ml 2 Ml Vial) 4 mg IV Q6H PRN PRN Reason: Nausea Stop: 01/19/22 19:47 Last Admin: 12/21/21 05:51 Dose: 4 mg Documented by: [id number] Admin: 12/20/21 20:46 Dose: 4 mg Documented by: [id number] Pantoprazole Sodium (Pantoprazole 40 Mg Tab) 40 mg PO DAILYBB [facility] Stop: 01/20/22 06:29 Last Admin: 12/22/21 06:15 Dose: 40 mg Documented by: [id number] Admin: 12/21/21 05:54 Dose: 40 mg Documented by: [id number] Prednisone (Prednisone 5 Mg Tab) 5 mg PO QAM [facility] Stop: 01/21/22 08:59 Last Admin: 12/22/21 08:17 Dose: 5 mg Documented by: [id number] Repaglinide (Repaglinide 1 Mg Tab) 0.5 mg PO QDB [facility] Stop: 01/20/22 07:29 Last Admin: 12/22/21 08:18 Dose: 0.5 mg Documented by: [id number] Admin: 12/21/21 09:26 Dose: Not Given Documented by: [id number] Saccharomyces Boulardii (Saccharomyces Boulardii 250 Mg Cap) 250 mg PO DAILY [facility] Stop: 01/20/22 08:59 Last Admin: 12/22/21 08:17 Dose: 250 mg Documented by: [id number] Admin: 12/21/21 09:21 Dose: 250 mg Documented by: [id number] Sirolimus (Sirolimus 0.5 Mg Tablet) 2 mg PO QAM [facility] Stop: 01/19/22 20:29 Last Admin: 12/22/21 08:17 Dose: 2 mg Documented by: [id number] Admin: 12/21/21 09:21 Dose: 2 mg Documented by: [id number] Admin: 12/20/21 21:38 Dose: 2 mg Documented by: [id number] Tamsulosin HCl (Tamsulosin Hcl 0.4 Mg Cap) 0.4 mg PO BID [facility] Stop: 01/19/22 20:59 Last Admin: 12/22/21 08:17 Dose: 0.4 mg Documented by: [id number] Admin: 12/21/21 22:13 Dose: 0.4 mg Documented by: [id number] Admin: 12/21/21 12:05 Dose: 0.4 mg Documented by: [id number] Admin: 12/20/21 21:25 Dose: 0.4 mg Documented by: [id number] Blood Pressure Blood Pressure Findings: Normal blood pressure Blood Pressure Disposition: did not require urgent referral Discharge Plan Visit Data Chief Complaint: Fever Stated Complaint: TRANSPLANT PT, FEVER, VOMITING ED Provider: Lorene Jensen Discharge Problem: Fever, Elevated troponin, S/P kidney transplant, Elevated lactic acid level Patient Disposition: Admitted As Inpatient Discharge Instructions Interventions: ED Discharge Assessment Last Done: 12/20/21 19:09 Discharge Problem: Fever Qualifiers: Fever type: due to other condition Qualified Code(s): R50.81 - Fever presenting with conditions classified elsewhere
[2021-12-21] MEDS: HEPARIN SOD 5,000 UNIT/0.5 ML VIAL SQ SCH ×2 (10:09→22:12)
[2021-12-21] MEDS: HYDROCORTISONE SOD SUCCINATE 100 MG/2 ML VIAL IV SCH ×2 (10:10→14:25)
--- NOTE | 2021-12-21 10:46 | Electrocardiogram Report ---
Test Reason : Blood Pressure : / mmHG Vent. Rate : 096 BPM Atrial Rate : 096 BPM P-R Int : 170 ms QRS Dur : 078 ms QT Int : 340 ms P-R-T Axes : 077 039 085 degrees QTc Int : 429 ms Normal sinus rhythm with sinus arrhythmia Normal ECG When compared with ECG of 31-MAY-2021 13:22, Premature atrial complexes are no longer Present Vent. rate has increased BY 38 BPM Confirmed by Danny Hernandez ([id number]) on 12/21/2021 10:46:26 AM Referred By: ER Confirmed By:Danny Hernandez
[2021-12-21] MEDS: TAMSULOSIN HCL 0.4 MG CAP PO SCH ×2 (12:05→22:13)
[2021-12-21] MEDS: BUTALBITAL/ACETAMIN/CAFFEINE TAB PO PRN ×2 (12:05→22:11)
--- NOTE | 2021-12-21 12:33 | Electrocardiogram Report ---
Test Reason : Blood Pressure : / mmHG Vent. Rate : 083 BPM Atrial Rate : 083 BPM P-R Int : 168 ms QRS Dur : 080 ms QT Int : 388 ms P-R-T Axes : 058 022 058 degrees QTc Int : 455 ms Normal sinus rhythm with sinus arrhythmia Normal ECG When compared with ECG of 20-DEC-2021 15:21, (unconfirmed) No significant change was found Confirmed by Danny Hernandez ([id number]) on 12/21/2021 12:33:19 PM Referred By: REFERRED SELF Confirmed By:Danny Hernandez
[2021-12-21] MEDS: ACETAMINOPHEN 325 MG TAB PO PRN (15:59)
--- NOTE | 2021-12-21 17:08 | Hospitalist Progress Note ---
Date of Service December 21, 2021 Assessment & Plan (1) Fever: Plan: Patient primarily is brought in because she is feeling ill vomiting and has a fever. She is chronically immunosuppressed being a renal transplant recipient on sirolemus mycophenolate and prednisone. Urinalysis unremarkable, chest x-ray unremarkable a bio fire is negative. does not have a leukocytosis. Chest x-ray is clear and unremarkable for pulmonary compromise. KUB is unremarkable as well as laboratories leg LFTs. Her procalcitonin is also normal at 0.14. Patient does have a headache in the emergency department which she says is from not eating throughout the day. She requested Fioricet but I did not give it to her given her troponin elevation and we gave her a dose of Dilaudid which she requested. -Fever has been resolved Given patient immune compromised patient be monitored for another day if he is doing fine to be discharged Pending cultures Besides headache (patient has a history of migraine headache) patient of no other symptoms (2) Elevated troponin: Plan: Most likely troponin leak Continue aspirin (3) Diabetes mellitus: Plan: Resume home regimen (4) Kidney transplant recipient: Plan: Patient received a renal transplant due to polycystic kidney disease. Patient it maintains her antirejection medications as mentioned of mycophenolate, sirolimus and prednisone 5. P (5) Hypertension: Plan: Patient is maintained on metoprolol 12.5 extended release daily (6) Anemia in chronic kidney disease: Plan: Patient's hemoglobin/hematocrit is in very good condition at 13 / 40 but she carries history of anemia of chronic disease or inflammatory disease Plan: Heparin will be used for DVT prevention She is a full code Patient has an unusual dosing of Premarin on her med rec she says she does not take this medication any longer. This patient is fairly in tune to her medical care she requests Dificid therapy while she is on any antibiotics. I gave her 1 dose in the ER but we will hold off on further request with further evaluation by inpatient hospitalist service. She also requested probiotic even though she is immunosuppressed. Admission and Anticipated Discharge Date Admission Date: December 20, 2021 Subjective Complains of having a headache Review of Systems Review of Systems: Complains of having headache. He said no upper respiratory symptoms sore throat etc. no speech or swallowing issues no chest pain, pressure or palpitations no shortness of breath, cough or wheezes no abdominal pain, hospital she had nausea and vomiting. She has had no diarrhea or constipation no dysuria, hematuria or frequency she typically states she gets no symptoms of such when she gets an infection no focal joint pain or swelling no back pain, CVA tenderness or radicular pain no bruising, bleeding or rashes no focal signs of weakness or numbness or altered sensation no complaints of anxiety or depression.. Physical Exam Physical Exam: The patient appeared well nourished and normally developed. Vital signs as documented. Head exam is normocephalic atraumatic Neck is without JVD, thyromegaly, or carotid bruits. Lungs are clear to auscultation, no focal loss of breath sounds Cardiac exam, Rhythm is regular.. No murmurs, rubs or gallops. Abdominal exam reveals normal bowel sounds, soft non tender, no masses Extremities are nonedematous and both pedal pulses are present Neurologic exam is alert and oriented, no focal loss of strength or sensation Skin is without bruises or rashes Psychologically is without concerns for anxiety or depression.. Results & Data Results & Data ([facility]) Vital Signs (Past 12 Hours) Vital Signs Temp Pulse Resp BP Pulse Ox 12/21/21 15:36 37.1 C 60 19 123/77 97 12/21/21 11:17 36.9 C 74 18 138/84 97 12/21/21 07:30 37.4 C 92 H 18 136/72 95 PG Care Time/CCT Total # of Minutes Spent Total Time Spent with Patient: Total time spent is greater than 50% in coordination of care (as documented) at patient's floor/unit and/or counseling patient: Coding Level of Care Code 03715 Subseq Hosp Care Lvl 3 Diagnoses Fever R50.9 Elevated troponin R77.8 Diabetes mellitus E11.9 Kidney transplant recipient Z94.0 Hypertension I10 Hypertension type: essential hypertension Anemia in chronic kidney disease N18.9; D63.1 (1) Hypertension Hypertension type: essential hypertension Qualified Code(s): I10 - Essential (primary) hypertension
[2021-12-21] MEDS ORDERED: INSULIN DETEMIR FLEXPEN/FLEX TOUCH 100 UNITS/ML 3ML SQ SCH (21:00)
[2021-12-22] MEDS: PANTOprazole 40 MG TAB PO SCH (06:15)
[2021-12-22 07:00] LABS: BUN Creatinine Ratio 19.5 (10-20); Calcium 8.8 mg/dl (8.5-10.1); Creatinine Clr Calc Pharmacy 49.7 ml/min; Est GFR (African American) 60.3 ml/min; Potassium 3.8 mmol/L (3.5-5.1)
[2021-12-22] MEDS: INSULIN ASPART PER UNIT SC SCH ×2 (07:44→11:45)
[2021-12-22] MEDS: SACCHAROMYCES BOULARDII 250 MG CAP PO SCH (08:17)
[2021-12-22] MEDS: MYCOPHENOLATE SODIUM 180 MG TAB PO SCH (08:17)
[2021-12-22] MEDS: TAMSULOSIN HCL 0.4 MG CAP PO SCH (08:17)
[2021-12-22] MEDS: SIROLIMUS 0.5 MG TABLET PO SCH (08:17)
[2021-12-22] MEDS: REPAGLINIDE 1 MG TAB PO SCH (08:18)
[2021-12-22] MEDS: GABAPENTIN 100 MG CAP PO SCH ×2 (08:22→08:30)
[2021-12-22] MEDS: ASPIRIN 81 MG ECTAB PO SCH (08:22)
[2021-12-22] MEDS: HEPARIN SOD 5,000 UNIT/0.5 ML VIAL SQ SCH (08:24)
[2021-12-22] MEDS: METOPROLOL SUCC 25MG EXT REL TAB PO SCH (08:24)
[2021-12-22] MEDS: FLUTICASONE PROPIONATE NA SPR 16 GM BTL SCH (08:25)
[2021-12-22] MEDS: AZELASTINE HCL 0.1% NASAL 200 SPRAYS/27,400 MCG BTL SCH (08:25)
[2021-12-22] MEDS ORDERED: predniSONE 5 MG TAB PO SCH ×2 (09:00→11:30)
--- NOTE | 2021-12-22 11:41 | Electrocardiogram Report ---
Test Reason : Blood Pressure : / mmHG Vent. Rate : 057 BPM Atrial Rate : 057 BPM P-R Int : 166 ms QRS Dur : 082 ms QT Int : 456 ms P-R-T Axes : 051 025 062 degrees QTc Int : 443 ms Sinus bradycardia Septal infarct , age undetermined Abnormal ECG When compared with ECG of 21-DEC-2021 06:08, No significant change was found Confirmed by Danny Hernandez ([id number]) on 12/22/2021 11:40:42 AM Referred By: REFERRED SELF Confirmed By:Danny Hernandez
--- NOTE | 2021-12-22 13:35 | Discharge Summary ---
Date of Service December 22, 2021 Admission HPI Per Admitting Provider 61-year-old female with a history of renal transplantation. Patient presents with fever. Patient is found to have mildly elevated troponin at 0.2 mildly elevated lactic acid of 2.4 she is a clear chest and lungs pending bio fire. In some discussion about starting antibiotics due to her renal transplant status the patient is not sure she wishes to do it. She said nausea vomiting here in the emergency department Principal Diagnosis Fever Discharge Exam General: A&Ox3. NAD. Cooperative. HEENT: Atraumatic, normocephalic. Vision and hearing grossly intact Pulm: CTAB A&P. -wheezes, -rales, -rhonchi. Symmetrical chest rise. No increase in work of breathing. No respiratory distress. Cardiac: RRR, -mrg. Radial pulses intact and symmetrical. Abdominal: Nontender, nondistended, soft. BS present. Extremities: Warm, dry, atraumatic. No erythema/warmth/tenderness. Sensation and strength grossly intact in all extremities Discharge Data Allergies Allergy/AdvReac Type Severity Reaction Status Date / Time Iodinated Contrast Media Allergy Severe Hx Kidney Verified 12/20/21 18:49 Transplant Cqjhukb-VQH-LkT Reductase Allergy Severe "PANCREATIT Verified 12/20/21 18:49 Inhibitor IS" [Gzneewh-Sbo-Wbs Reductase Inhibitor] sumatriptan Allergy Severe seizure Verified 12/20/21 18:49 hydrochlorothiazide Allergy Mild Unknown Verified 12/20/21 18:49 Sulfa (Sulfonamide Allergy Mild . Verified 12/20/21 18:49 Antibiotics) triamterene Allergy Mild Unknown Verified 12/20/21 18:49 atorvastatin Allergy Unknown ? Verified 12/20/21 18:49 doxycycline Allergy Unknown UNKNOWN Verified 12/20/21 18:49 levofloxacin Allergy Unknown joint pain Verified 12/20/21 18:49 adhesive AdvReac Unknown SKIN TEAR Verified 12/20/21 18:49 ciprofloxacin AdvReac Unknown FATIGUE Verified 09/03/21 12:49 morphine AdvReac Unknown INEFFECTIVE Verified 09/03/21 12:49 carvedilol AdvReac Verified 09/03/21 12:49 Consultations 12/20/21 18:12 ED Decision to Admit Stat Hospital Course (1) Fever: Bud is a 61-year-old female with a history of renal transplant on immunosuppressive medications who presented with vomiting and a fever. She had no episodes of vomiting following admission. Her procalcitonin was normal, fever resolved overnight, and had no additional nausea/vomiting. Cultures were negative at time of discharge. In the ER she was initially placed on empiric Zosyn which was discontinued after no source was identified. Bio [employer] respiratory panel was negative. Patient was at her normal baseline state of health and afebrile for 24 hours at time of discharge. Strict return precautions were discussed, patient was discharged with prophylactic vancomycin given history of C. difficile with an antibiotic treatment. She did have a troponin leak which down trended with no chest pain/chest pressure or other signs of ACS, was recommended to follow-up with potential stress test as outpatient. To do as outpatient: 1. Strict return precautions, fever monitoring on discharge 2. Follow-up with PCP within 1 week 3. Follow-up with PCP, consideration of stress test as outpatient 4. Continue low-dose aspirin daily given evidence of demand ischemia 5. Patient did receive stress dose of prednisone while admitted, was discharged to resume home regimen Fever, vomiting, self resolved without treatment. Marked viral enteritis, self- limited Patient primarily is brought in because she is feeling ill vomiting and has a fever. She is chronically immunosuppressed being a renal transplant recipient on sirolimus mycophenolate and prednisone. Urinalysis unremarkable, chest x-ray unremarkable a bio fire is negative. does not have a leukocytosis. Chest x-ray is clear and unremarkable for pulmonary compromise. KUB is unremarkable as well as laboratories leg LFTs. Her procalcitonin is also normal at 0.14. Patient does have a headache in the emergency department which she says is from not eating throughout the day. She requested Fioricet was deferred in the setting of a troponin leak -Fever solved, vomiting resolved, no additional episodes after admission and after antibiotics were discontinued Ultras negative at time of discharge Besides headache (patient has a history of migraine headache) patient of no other symptoms (2) Elevated troponin: Peaked at 1.04 then down trended to 0.15, suspect demand ischemia in the setting of vomiting/dehydration Continue aspirin Follow-up consideration of stress test as above (3) Diabetes mellitus: Resume home regimen Adequate glycemic control during admission (4) Kidney transplant recipient: Patient received a renal transplant due to polycystic kidney disease. Patient it maintains her antirejection medications as mentioned of mycophenolate, sirolimus and prednisone 5. P (5) Hypertension: Patient is maintained on metoprolol 12.5 extended release daily (6) Anemia in chronic kidney disease: Patient's hemoglobin/hematocrit is in very good condition at 13 / 40 but she carries history of anemia of chronic disease or inflammatory disease Heparin will be used for DVT prevention She is a full code Patient has an unusual dosing of Premarin on her med rec she says she does not take this medication any longer. On admission patient did request Dificid while on any antibiotics. She received 1 dose in the ER for prophylaxis. On discharge due to patient concern and history of C. difficile with immunosuppression was placed on a 5-day course of vancomycin 125 mg daily for prophylaxis following antibiotic use Total Time Total Time Spent Total Time Spent (In Minutes): Time spend day of discharge 60 minutes including direct patient care, documentation, review of labs and images, and coordination of care. Discharge Plan Discharge Items Patient Disposition: Home - Self-Care Reason For Visit: FEVER, ELEVATED TROPONIN, RENAL TRANSPLANT Discharge Diagnosis: Fever Demand ischemia Activity: Resume your previous activity Non-emergency contact: Primary Care Provider Call non-emergency contact if: you have any medication questions and your symptoms worsen Follow-up/Referrals: Shruthi Mcbride DO [Primary Care Provider] - Diet: Carb Consistent or DM2 and Gluten Free Addtl Attending Provider Instructions: You were seen in the hospital for feeling ill, fever, and report of vomiting. You have a history of chronic immunosuppression due to renal transplant on suppressive medications. During admission a bio fire (respiratory PCR panel) was negative for respiratory pathogens/viruses including Covid. Your x-ray did not show any evidence of pulmonary disease. An x-ray of your abdomen was unremarkable, and your procalcitonin (a marker of both sepsis and pneumonia) was normal. You were admitted for supportive care and additional observation. A heart marker called troponin was slightly elevated in the setting of vomiting and were thought to be due to demand ischemia, this marker went back down on rec heck prior to discharge. You were started on a low-dose aspirin to protect your heart. You should have follow-up with cardiology as an outpatient with consideration for a stress test in the future, please discuss this with your primary care provider at follow-up. Your blood cultures and urine cultures were negative during admission. Treated with stress dose hydrocortisone during admission, you may resume prednisone on 12/23/2021 at your home dose. You did not have recurrent fevers and you are in your normal state of health at time of discharge. Your symptoms may have been due to to a viral illness. If you have recurrent fevers, worsening symptoms, or new symptoms please seek medical reevaluation as noted below. Additional antibiotics were not indicated at time of discharge. 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 As you recently treated with antibiotics and a high risk you have been prescribed a prophylactic dose of vancomycin. Please take vancomycin 125 mg once daily for 5 days. Follow-up appointment is being scheduled for you with your primary care provider, Dr. Mcbride. You should be seen within 1 week. You should receive a call within 48 hours to confirm this appointment, if you do not receive a call please call her office at the number above. If you develop any new or worsening symptoms including fever, chills, sweats, chest pain, chest pressure, difficulty breathing, uncontrolled nausea/vomiting, rash, wheezing, passing out or nearly passing out, bleeding, black/bloody bowel movements, or other new or concerning symptoms please call your primary care physician, or call 911 for re-evaluation in the emergency department if you are very concerned. Pending Studies at Discharge: No Stand-Alone Forms: My [facility] Loopd Via, Smoking Cessation Medications and DC Order Prescriptions: New vancomycin [Vancocin] 125 mg capsule 125 mg PO DAILY Qty: 5 RF: 0 Continued prednisone 5 mg tablet 5 mg PO QAM Qty: 90 RF: 3 mycophenolate sodium [Myfortic] 180 mg tablet,delayed release (DR/EC) 360 mg PO BID Qty: 360 RF: 3 gabapentin 100 mg capsule 200 mg PO HS RF: 0 repaglinide 0.5 mg tablet 0.5 mg PO .COMPLEX RF: 0 metoprolol succinate [Toprol XL] 25 mg tablet extended release 24 hr 12.5 mg PO QAM RF: 0 Levemir FlexTouch U-100 Insuln 100 unit/mL (3 mL) Insulin Pen 8 units subcut HS RF: 0 tamsulosin [Flomax] 0.4 mg capsule 0.4 mg PO BID RF: 0 pantoprazole [Protonix] 40 mg tablet,delayed release (DR/EC) 40 mg PO DAILYBB RF: 0 azelastine 137 mcg (0.1 %) Aerosol,Loraine 2 spray INTRANASAL Q12H RF: 0 sirolimus [Rapamune] 1 mg tablet 2 mg PO QAM RF: 0 estradiol 0.5 mg tablet 0.5 mg PO DAILY RF: 0 metoprolol succinate 25 mg tablet extended release 24 hr 25 mg PO HS RF: 0 fluticasone propionate [Flonase Allergy Relief] 50 mcg/actuation Loraine,Suspension 1 spray INTRANASAL BID PRN (Reason: Allergy Symptoms) RF: 0 Discharge Orders: Discharge Order (Routine); Ordered 12/22/21 Ordered By: Homar Meadows/Other Patient Handouts: Managing Type 2 Diabetes Admission Data Admit Date/Time: 12/20/21 17:23 Attending Provider: Homar Sanchez Admit Provider: Shivam Mccann Primary Care Provider: Shruthi Mcbride Other Providers: Shivam Mccann Coding Level of Care Code D/C DAY MANAGEMENT >30 MINS Diagnoses Fever R50.9 Elevated troponin R77.8 Diabetes mellitus E11.9 Kidney transplant recipient Z94.0 Hypertension I10 Hypertension type: essential hypertension Anemia in chronic kidney disease N18.9; D63.1
== END 2021-12-22 15:20 | disposition home or self-care (01) | DRG 392 ==
LOC: ED 14:54 → 2S 17:23 → SUATTDRO 17:23 → 2S 19:09
DX: Z88.1 Allergy status to other antibiotic agents; Z79.4 Long term (current) use of insulin; D84.9 Immunodeficiency, unspecified; N18.9 Chronic kidney disease, unspecified; Z90.49 Acquired absence of other specified parts of digestive tract; A08.4 Viral intestinal infection, unspecified; Z94.0 Kidney transplant status; K21.9 Gastro-esophageal reflux disease without esophagitis; E11.22 Type 2 diabetes mellitus with diabetic chronic kidney disease; Z79.52 Long term (current) use of systemic steroids; Z91.048 Other nonmedicinal substance allergy status; J45.909 Unspecified asthma, uncomplicated; Z87.891 Personal history of nicotine dependence; Z91.041 Radiographic dye allergy status; Z88.5 Allergy status to narcotic agent; I24.8 Other forms of acute ischemic heart disease; D63.1 Anemia in chronic kidney disease; G43.909 Migraine, unspecified, not intractable, without status migrainosus; Z88.8 Allergy status to other drugs, medicaments and biological substances; Z88.6 Allergy status to analgesic agent; Z88.2 Allergy status to sulfonamides; K52.9 Noninfective gastroenteritis and colitis, unspecified; Z79.899 Other long term (current) drug therapy; I12.9 Hypertensive chronic kidney disease with stage 1 through stage 4 chronic kidney disease, or unspecified chronic kidney disease